=== PATIENT | female | born 1990 | race Caucasian/White ===

== ENCOUNTER 2023-03-08 09:15 | Outpatient (OUT) | payer OTHER, SELFPAY ==
--- NOTE | 2023-03-08 10:51 | US_ITS ---
[address] [address] Patient Name: QIAN CLEMENTS MRN: [id number] date: 1990 Sex: F Assigned Patient Location: LAB Current Patient Location: LAB Accession/Order Number: [id number] Exam Date: 03/08/2023 11:00 Report Date: 03/08/2023 18:54 At the request of: BLAS FORDE Procedure: US renal bladder EXAMINATION: US renal bladder HISTORY: Flank pain in Patient O26.899 COMPARISON: No relevant comparison available. TECHNIQUE: Ultrasound examination was performed of the bladder. FINDINGS: Right Kidney: Normal in size, contour and cortical echotexture. No solid cortical mass, hydronephrosis or obstructing nephrolithiasis. The cortex measures 1.1 cm Height: 4.6 cm Length: 10.6 cm Width: 5.7 cm Left Kidney: Normal in size, contour and cortical echotexture. No solid cortical mass, hydronephrosis or obstructing nephrolithiasis. The cortex measures 1.6 cm Height: 6.0 cm Length: 10.8 cm Width: 5.3 cm Urinary bladder: Prevoid 484 mL. Post void 16.1 mL Ureteral jets: Visualized bilaterally US/US renal bladder IMPRESSION: No acute abnormality Electronically authenticated by: AARON DELACRUZ Date: 03/08/2023 18:54
[2023-03-08 10:55] LABS: Basophils Percent Auto 0.3 % (0.2-2.0); Eosinophils Percent Auto 0.3 % (0.9-7.0); Hemoglobin 10.7 g/dL (12.0-16.0); Immature Granulocytes Abs Auto 0.04 10^3/uL (0.00-0.03); Immature Granulocytes Pct Auto 0.4 % (0.0-0.5); Lymphocytes Absolute Auto 2.1 10^3/uL (1.2-3.8); Mean Corpuscular HGB Conc 32.4 g/dL (29.9-35.2); Mean Corpuscular Hemoglobin 26.8 pg (26.7-34.0); Mean Corpuscular Volume 82.7 fL (81.0-99.0); Mean Platelet Volume 8.9 fL (9.5-13.5); Monocytes Absolute Auto 0.9 10^3/uL (0.3-0.8); Monocytes Percent Auto 9.1 % (1.7-12.0); Neutrophils Absolute Auto 6.9 10^3/uL (1.4-6.5); Neutrophils Percent Auto 68.9 % (43.0-75.0); Platelet Count 386 10^3/uL (150-450); Red Blood Count 3.99 10^6/uL (4.20-5.40); Red Cell Distribution Width 13.5 % (11.0-15.0); White Blood Count 10.1 10^3/uL (4.0-11.0)
[2023-03-08 11:47] LABS: Estimated GFR (African America >60 (>=60); Estimated GFR (Non-African Ame >60 (>=60)
== END 2023-03-08 09:16 | disposition home or self-care (01) ==
LOC: LAB 09:22
PROVIDERS: PCP Family Medicine; Visit Provider Obstetrics & Gynecology
DX: O26.899 Other specified pregnancy related conditions, unspecified trimester (principal); R10.9 Unspecified abdominal pain
CPT/HCPCS: 36415; 76770; 82565; 84520; 85025

== ENCOUNTER 2023-03-18 09:10 | Outpatient (OUT) | payer OTHER, SELFPAY ==
--- NOTE | 2023-03-18 09:11 | US_ITS ---
[address] [address] Patient Name: QIAN CLEMENTS MRN: [id number] date: 1990 Sex: F Assigned Patient Location: US Current Patient Location: Accession/Order Number: [id number] Exam Date: 03/18/2023 09:10 Report Date: 03/18/2023 15:10 At the request of: BLAS FORDE Procedure: US OB transvaginal EXAMINATION: US OB transvaginal HISTORY: MISSED PERIOD COMPARISON: No relevant comparison available. FINDINGS: GESTATIONAL SAC: Present and normal appearing. YOLK SAC: Present and normal appearing. POLE: Present and normal appearing. CARDIAC: Present. UTERUS: Normal size and appearance. OVARIES: Right: Normal. Left: Normal. CERVIX: 4.8 cm in length and closed. CUL-DE-SAC: Normal. OTHER: None. AGE BY LMP: 9 weeks 1 day JULY BY LMP: 10/20/2023 AGE BY US CRL: 8 weeks 5 days JULY BY US CRL: 10/23/2023 US/US OB transvaginal IMPRESSION: 1. Single live intrauterine . Electronically authenticated by: PILAR DOBSON Date: 03/18/2023 15:10
== END 2023-03-18 09:11 | disposition home or self-care (01) ==
LOC: US 09:10
PROVIDERS: PCP Family Medicine; Visit Provider Obstetrics & Gynecology
DX: Z34.91 Encounter for supervision of normal pregnancy, unspecified, first trimester (principal); Z3A.08 8 weeks gestation of pregnancy; N92.6 Irregular menstruation, unspecified
CPT/HCPCS: 76817

== ENCOUNTER 2023-04-19 10:11 | Outpatient (OUT) | payer OTHER, SELFPAY ==
[2023-04-19 10:57] LABS: Basophils Percent Auto 0.2 % (0.2-2.0); Eosinophils Percent Auto 0.2 % (0.9-7.0); Hematocrit 35.5 % (36.0-48.0); Hemoglobin 11.5 g/dL (12.0-16.0); Immature Granulocytes Abs Auto 0.02 10^3/uL (0.00-0.03); Immature Granulocytes Pct Auto 0.2 % (0.0-0.5); Lymphocytes Absolute Auto 1.6 10^3/uL (1.2-3.8); Lymphocytes Percent Auto 19.6 % (20.5-60.0); Mean Corpuscular HGB Conc 32.4 g/dL (29.9-35.2); Mean Corpuscular Hemoglobin 26.9 pg (26.7-34.0); Mean Corpuscular Volume 83.1 fL (81.0-99.0); Mean Platelet Volume 9.2 fL (9.5-13.5); Monocytes Absolute Auto 0.4 10^3/uL (0.3-0.8); Monocytes Percent Auto 4.8 % (1.7-12.0); Neutrophils Absolute Auto 6.2 10^3/uL (1.4-6.5); Platelet Count 400 10^3/uL (150-450); Red Blood Count 4.27 10^6/uL (4.20-5.40); Red Cell Distribution Width 14.6 % (11.0-15.0); White Blood Count 8.3 10^3/uL (4.0-11.0)
[2023-04-19 11:01] LABS: BOX Test Sent Out Y
[2023-04-19 11:16] LABS: Estimated Average Glucose 103 mg/dL; Glycohemoglobin A1C 5.2 % (4.5-6.2)
[2023-04-19 11:38] LABS: Thyroid Stimulating Hormone 1.129 uIU/mL (0.358-3.740)
[2023-04-20 05:07] LABS: HCV Ab Non Reactive (Non Reactive); HIV Ab/p24 Ag Screen Non Reactive (Non Reactive); Rubella Antibodies, IgG 4.83 index (Immune >0.99)
[2023-04-20 06:08] LABS: HBsAg Screen Negative (Negative)
[2023-04-20 11:12] LABS: Rapid Plasma Reagin, Quant Non Reactive (NonRea<1:1)
== END 2023-04-19 10:12 | disposition home or self-care (01) ==
PROVIDERS: PCP Family Medicine; Visit Provider Obstetrics & Gynecology
DX: Z34.80 Encounter for supervision of other normal pregnancy, unspecified trimester (principal); N92.6 Irregular menstruation, unspecified
CPT/HCPCS: 36415; 83036; 84443; 85025; 86592; 86706; 86762; 86803; 86850; 86900; 86901; 87086; 87150; 87186; 87389

== ENCOUNTER 2023-07-17 12:00 | Observation (INO) | payer OTHER, SELFPAY ==
--- NOTE | 2023-07-17 12:11 | ECG_ITS ---
[facility] Test Date: 2023-07-17 Pat Name: QIAN CLEMENTS Department: Room: [facility] Gender: Female Program Aide: : 1990 Requested By: BLAS FORDE Order Number: [id number] Reading MD: DONTA BOSTON Measurements Intervals New Point Rate: 101 P: 50 WY: 138 QRS: 37 QRSD: 82 T: 63 QT: 344 QTc: 402 Interpretive Statements 1120 Sinus tachycardia 2420 RSR (QR) in lead V1/V2, consistent with right ventricular conduction delay 9140 abnormal rhythm ECG No previous ECG available for comparison Electronically Signed On 07-18-2023 7:40:42 EST by DONTA BOSTON
[2023-07-17 12:30] VITALS: BP 137/87; PULSE 108
--- NOTE | 2023-07-17 12:58 | CT_ITS ---
[address] [address] Patient Name: QIAN CLEMENTS MRN: [id number] date: 1990 Sex: F Assigned Patient Location: [facility] Current Patient Location: [facility] Accession/Order Number: [id number] Exam Date: 07/17/2023 13:35 Report Date: 07/17/2023 14:54 At the request of: BLAS FORDE Procedure: CT angio chest EXAMINATION: CT angio chest INDICATION: Chest pain. 26 weeks . COMPARISON: CT chest 05/24/2022. TECHNIQUE: Following the administration of intravenous contrast, helical imaging of the chest was performed using PE protocol. Multiplanar reformatted images and MIP sequences were reconstructed. Dose reduction techniques were achieved by using: automated exposure control and/or adjustment of mA and /or kV according to patient size and/or use of iterative reconstruction technique. FINDINGS: TUBES & LINES: None. LOWER NECK: No significant abnormality. CHEST: Great vessels: Adequate opacification of the pulmonary arteries. No abnormal intraluminal filling defects within the pulmonary arteries. Normal caliber central pulmonary arteries. No right heart strain. Nonaneurysmal thoracic aorta. No aortic dissection. Heart & Pericardium: The heart is normal in size. Small hiatal hernia. No pericardial effusion. Lymph nodes & Mediastinum: No thoracic adenopathy. Normal esophagus. Airways, Lungs & Pleura: Patent central airways. Clear lungs. No acute infiltrative process or suspicious pulmonary nodules. No pleural effusion or pneumothorax. UPPER ABDOMEN: No significant abnormality. MUSCULOSKELETAL: Soft tissues: Unremarkable soft tissues. Bones: No acute osseous abnormality or suspicious osseous lesion. CT/CT angio chest IMPRESSION: No pulmonary embolism or other acute process identified in the chest. Electronically authenticated by: ALETHA JESSICA Date: 07/17/2023 14:54
--- NOTE | 2023-07-17 12:58 | US_ITS ---
[address] [address] Patient Name: QIAN CLEMENTS MRN: [id number] date: 1990 Sex: F Assigned Patient Location: [facility] Current Patient Location: [facility] Accession/Order Number: [id number] Exam Date: 07/17/2023 14:22 Report Date: 07/17/2023 15:34 At the request of: BLAS FORDE Procedure: US OB cervical length PROCEDURE: US OB cervical length, 07/17/2023 2:22 PM EST CLINICAL INDICATIONS: Contractions this a.m., encounter for third trimester . 5 para 4 Expected gestational age: 26 weeks 3 days Expected JULY: 11/18/2023 COMPARISON: 03/18/2023 TECHNIQUE: Limited third trimester obstetric sonogram, cervix evaluation. FINDINGS: Single living intrauterine identified, breech presentation. body, cardiac activity is seen. A heart rate 141 bpm. Transvaginal cervical length 4.7 cm, closed biometry: Not performed. anatomic assessment: Not performed. Placenta: Not evaluated Amniotic fluid volume: Not evaluated US/US OB cervical length IMPRESSION: 1. Single living intrauterine , breech presentation 2. 4.7 cm transvaginal cervical length, closed Electronically authenticated by: ESTEVAN SOLANO Date: 07/17/2023 15:34
[2023-07-17 13:18] LABS: Bilirubin Urine NEGATIVE (NEGATIVE); Blood Urine NEGATIVE (NEGATIVE); Clarity Urine CLEAR (CLEAR); Color Urine YELLOW (YELLOW); Glucose Urine UA NEGATIVE (NEGATIVE); Ketones Urine NEGATIVE (NEGATIVE); Leukocyte Esterase Urine NEGATIVE (NEGATIVE); Nitrite Urine NEGATIVE (NEGATIVE); Protein Urine TRACE mg/dL (NEG/TRACE); Specific Gravity Urine 1.025 (1.005-1.025); Urobilinogen Urine 0.2 EU/dL (0.2-1.0); pH Urine 6.5 (5.0-9.0)
[2023-07-17 13:19] LABS: Urine Microscopic Indicated NO
[2023-07-17 13:27] LABS: Cannabinoid Screen Urine POSITIVE (NEGATIVE); Cocaine Screen Urine NEGATIVE (NEGATIVE); Methamphetamines Screen Urine POSITIVE (NEGATIVE); Opiate Screen Urine NEGATIVE (NEGATIVE); Phencyclidine Screen Urine NEGATIVE (NEGATIVE)
[2023-07-17 13:28] LABS: Amphetamine Screen Urine POSITIVE (NEGATIVE); Barbiturates Screen Urine NEGATIVE (NEGATIVE); Benzodiazepines Screen Urine NEGATIVE (NEGATIVE); Buprenorphine Screen Urine NEGATIVE (NEGATIVE); Methadone Screen Urine NEGATIVE (NEGATIVE); Oxycodone Screen Urine NEGATIVE (NEGATIVE); Tricyclic Antidepressant Urine NEGATIVE (NEGATIVE)
[2023-07-17] MEDS: 0.9 % SODIUM CHLORIDE 1,000 ML 999 ML IV (13:30)
[2023-07-17 14:50] VITALS: TEMP 36.3
--- NOTE | 2023-07-17 15:24 | PC.NURSE ---
1345: to Xray via wheelchair- IV to saline lock.1400: Returns from xray. 1415: US in for cervical length. 1430 Results 4.7cm. EFM resumed and patient c/o being chilled .Temp97.3 -blanket given and denies family members with sickness. 1455:TC to Dr. Ricks- reported US results and patient report of continued headache, and chilling Orders recieved and patient informed
[2023-07-17] MEDS: 0.9 % SODIUM CHLORIDE 1,000 ML 125 ML IV (15:33)
[2023-07-17] MEDS: ACETAMINOPHEN 500 MG TABLET 1000 MG PO (15:34)
[2023-07-17 17:37] LABS: Basophils Percent Auto 0.3 % (0.2-2.0); Eosinophils Percent Auto 0.3 % (0.9-7.0); Hematocrit 33.7 % (36.0-48.0); Hemoglobin 10.9 g/dL (12.0-16.0); Immature Granulocytes Abs Auto 0.05 10^3/uL (0.00-0.03); Immature Granulocytes Pct Auto 0.4 % (0.0-0.5); Lymphocytes Absolute Auto 2.5 10^3/uL (1.2-3.8); Lymphocytes Percent Auto 21.4 % (20.5-60.0); Mean Corpuscular HGB Conc 32.3 g/dL (29.9-35.2); Mean Corpuscular Hemoglobin 27.7 pg (26.7-34.0); Mean Corpuscular Volume 85.8 fL (81.0-99.0); Mean Platelet Volume 9.1 fL (9.5-13.5); Monocytes Absolute Auto 0.6 10^3/uL (0.3-0.8); Monocytes Percent Auto 5.3 % (1.7-12.0); Neutrophils Absolute Auto 8.6 10^3/uL (1.4-6.5); Neutrophils Percent Auto 72.3 % (43.0-75.0); Platelet Count 368 10^3/uL (150-450); Red Blood Count 3.93 10^6/uL (4.20-5.40); Red Cell Distribution Width 13.2 % (11.0-15.0); White Blood Count 11.8 10^3/uL (4.0-11.0)
[2023-07-17] MEDS: ONDANSETRON PF 4 MG/2 ML VIAL IV (17:41)
--- NOTE | 2023-07-17 17:48 | PC.NURSE ---
1534: medicated with 2 tabs 500 mg each tylenol for headache. continues to have ctxs and palpate mild-mod. Discussed with patient urine toxicology results and patient admitted to THC use 2 days ago and denies other drug use. States takes adderall and last took yesterday. Denies meth use. Inquires about plan of care and informed would like to get headache under control and ctxs are spacing out. States can still feel ctxs- informed cervix is not changing with htem. Denies chest pain. DTR's 1+ lpatellar bilaterally and no swelling noted in extremities. Denies spotty vision currently.
[2023-07-17 18:16] VITALS: BP 145/85; PULSE 90
--- NOTE | 2023-07-17 19:35 | PC.NURSE ---
1919: REPORT TO ESA WINKLER.
--- NOTE | 2023-07-17 20:19 | ED.GENADUL1 ---
HPI - General Adult General Stated complaint: CHEST PAIN Source: patient Mode of arrival: walk-in Limitations: no limitations Related Data Allergies Allergy/AdvReac Type Severity Reaction Status Date / Time codeine Allergy Severe vomiting Verified 07/17/23 17:38 promethazine [From Phenergan] Allergy Severe vomiting Verified 07/17/23 17:38 ciprofloxacin [From Cipro] Allergy Intermediate vomiting Verified 07/17/23 17:38 Exam Constitutional Vital Signs, click to edit/add: Last Vital Signs Temp 97.3 F L 07/17/23 14:50 Pulse 90 07/17/23 18:16 BP 145/85 H 07/17/23 18:16 Course Vital Signs Vital signs: Vital Signs Pulse Rate 108 H 07/17/23 12:30 Blood Pressure 137/87 07/17/23 12:30 Temperature 97.3 F L 07/17/23 14:50 Pulse Rate 90 07/17/23 18:16 Blood Pressure 145/85 H 07/17/23 18:16 Medical Decision Making Medical Records Medical records narrative: Pt EKG was done in triage. Pt is not an ER pt. Pt is going to OB per protocol to further evaluate her symptoms. Pt was not seen or evaluated by me, EKG ws done per protocols. ECG Data Attestation: I personally reviewed and interpreted this ECG as follows: (EKG interpretation. NSR @ 101, ND, no acute STEMI, QTc 402) Discharge Plan Discharge Clinical Impression: Patient Disposition: Admitted as Observation Discharge Date/Time: 07/17/23 12:53
[2023-07-17] MEDS: HYDROCODONE/ACET 5-325 MG TABLET 2 TAB PO (21:05)
--- NOTE | 2023-07-17 23:25 | W.PC.ACHO ---
Registration Status: ADM DELILAH Primary Language: Preferred Language: Report received from Erin KELLOGG RN at 1910. Active Medications Generic Name Dose Route Start Last Admin Trade Name Freq PRN Reason Stop Dose Admin Acetaminophen 1,000 mg 07/17/23 15:21 07/17/23 15:34 Acetaminophen 500 Mg Tablet PO 1,000 mg Q4H PRN Administration Pain Sodium Chloride 1,000 mls @ 125 mls/hr 07/17/23 15:30 07/17/23 15:33 Sodium Chloride 0.9% 1,000 Ml IV 125 mls/hr .Q8H RADHA Administration IV Insertion/Site Date of IV Line Insertion [20g 07/17/23 right Antecubital] IV Insertion Time [20g right 13:20 Antecubital]
[2023-07-17 23:41] VITALS: RESP 16; TEMP 36.6
[2023-07-18 07:29] VITALS: BP 128/87; PULSE 86
--- NOTE | 2023-07-18 07:44 | W.PC.ACHO ---
Registration Status: ADM DELILAH Primary Language: Preferred Language: Report given to Mathew Rodriguez RN. Active Medications Generic Name Dose Route Start Last Admin Trade Name Freq PRN Reason Stop Dose Admin Acetaminophen 1,000 mg 07/17/23 15:21 07/17/23 15:34 Acetaminophen 500 Mg Tablet PO 1,000 mg Q4H PRN Administration Pain Sodium Chloride 1,000 mls @ 125 mls/hr 07/17/23 15:30 07/17/23 15:33 Sodium Chloride 0.9% 1,000 Ml IV 125 mls/hr .Q8H RADHA Administration Diet Category Date Time Status Regular Consistency Diet Diet 07/18/23 07:32 Active IV Insertion/Site Date of IV Line Insertion [20g 07/17/23 right Antecubital] IV Insertion Time [20g right 13:20 Antecubital]
[2023-07-22 15:09] LABS: Amphetamine Positive (.); Amphetamine Conf, MS, UR 942 ng/mL (Cutoff=500); Amphetamines Positive (.); Cannabinoid Positive (.); Carboxy THC Conf, MS, UR 47 ng/mL (Cutoff=10); Methamphetamine Positive (.); Methamphetamine Conf, MS, UR 2929 ng/mL (Cutoff=500)
== END 2023-07-18 09:00 | disposition home or self-care (01) ==
LOC: ER 12:08 → FBC 12:18
PROVIDERS: Admitting Provider Obstetrics & Gynecology; Emergency Provider Emergency Medicine; PCP Family Medicine; Visit Provider Obstetrics & Gynecology
DX: O26.892 Other specified pregnancy related conditions, second trimester (principal); R07.9 Chest pain, unspecified; R51.9 Headache, unspecified; H53.8 Other visual disturbances; O47.03 False labor before 37 completed weeks of gestation, third trimester; Z3A.26 26 weeks gestation of pregnancy
CPT/HCPCS: 36415; 71275; 76817; 80307; 80326; 80349; 81003; 85025; 93005; 96374; 99285; G0378; Q9967

== ENCOUNTER 2023-08-23 08:40 | Outpatient (OUT) | payer OTHER, SELFPAY ==
--- NOTE | 2023-08-23 08:42 | US_ITS ---
[address] [address] Patient Name: QIAN CLEMENTS MRN: [id number] date: 1990 Sex: F Assigned Patient Location: US Current Patient Location: US Accession/Order Number: [id number] Exam Date: 08/23/2023 08:43 Report Date: 08/23/2023 09:46 At the request of: KENIA PIEDRA Procedure: US OB anatomy EXAMINATION: US OB anatomy, US OB cervical length HISTORY: ANATOMY COMPARISON: No relevant comparison available. TECHNIQUE: Transabdominal sonographic examination was performed for obstetrical and evaluation. FINDINGS: Number: 1 Heart Rate: 146.0 bpm H.B. /min Amniotic Fluid Volume: Subjectively normal position: Cephalic presentation, longitudinal lie Placental Location: ANTERIOR, placental edge to cervical os could not be visualized Cervix Length: 3.7 cm , closed Normal anatomy: Nose, lips, diaphragm, stomach, kidneys, bladder, umbilical arteries, three-vessel cord, spine, extremities Suboptimal visualization: Lateral ventricles, cerebellum, posterior fossa secondary distal calcification. Orbits, four-chamber heart Nonvisualization: RVOT, LVOT, abdominal cord insertion BIOMETRY: BPD: 7.9 cm 31 weeks 6 days , 45% HC: 30.0 cm 33 weeks 2 days, 56% AC: 30.3 cm 34 weeks 2 days, greater than 97% FL: 5.7 cm 29 weeks 6 days , 4% EFW:2029.2 grams; 4 lbs. 8 oz., 71% FL/AC: 18.8 FL/BPD: 71.8 HC/AC: 1.0 GESTATIONAL AGE: Age by EDC: 31 weeks 5 days JULY by EDC: 10/20/2023 Age by current US: 32 weeks 2 days JULY by current US: 10/16/2023 US/US OB anatomy IMPRESSION: Limited exam due to advanced gestational age and maternal body habitus Abdominal circumference greater than the 97th percentile *Reference: [employer] Practice Guideline for the performance of Obstetric Ultrasound Examinations, May 22, 2007. Electronically authenticated by: AARON DELACRUZ Date: 08/23/2023 09:46
--- NOTE | 2023-08-23 08:42 | US_ITS ---
[address] [address] Patient Name: QIAN CLEMENTS MRN: [id number] date: 1990 Sex: F Assigned Patient Location: US Current Patient Location: Accession/Order Number: [id number] Exam Date: 08/23/2023 08:43 Report Date: 08/23/2023 09:46 At the request of: KENIA PIEDRA Procedure: US OB cervical length EXAMINATION: US OB anatomy, US OB cervical length HISTORY: ANATOMY COMPARISON: No relevant comparison available. TECHNIQUE: Transabdominal sonographic examination was performed for obstetrical and evaluation. FINDINGS: Number: 1 Heart Rate: 146.0 bpm H.B. /min Amniotic Fluid Volume: Subjectively normal position: Cephalic presentation, longitudinal lie Placental Location: ANTERIOR, placental edge to cervical os could not be visualized Cervix Length: 3.7 cm , closed Normal anatomy: Nose, lips, diaphragm, stomach, kidneys, bladder, umbilical arteries, three-vessel cord, spine, extremities Suboptimal visualization: Lateral ventricles, cerebellum, posterior fossa secondary distal calcification. Orbits, four-chamber heart Nonvisualization: RVOT, LVOT, abdominal cord insertion BIOMETRY: BPD: 7.9 cm 31 weeks 6 days , 45% HC: 30.0 cm 33 weeks 2 days, 56% AC: 30.3 cm 34 weeks 2 days, greater than 97% FL: 5.7 cm 29 weeks 6 days , 4% EFW:2029.2 grams; 4 lbs. 8 oz., 71% FL/AC: 18.8 FL/BPD: 71.8 HC/AC: 1.0 GESTATIONAL AGE: Age by EDC: 31 weeks 5 days JULY by EDC: 10/20/2023 Age by current US: 32 weeks 2 days JULY by current US: 10/16/2023 US/US OB cervical length IMPRESSION: Limited exam due to advanced gestational age and maternal body habitus Abdominal circumference greater than the 97th percentile *Reference: [employer] Practice Guideline for the performance of Obstetric Ultrasound Examinations, May 22, 2007. Electronically authenticated by: AARON DELACRUZ Date: 08/23/2023 09:46
--- OUTSIDE RECORDS SUMMARY | 2023-08-23 08:47 | XMS_ITS | CCD ---
Author Name Unknown Address [address] [place] [address] Organization [facility] Care Team Providers Care Hogshead Opener Name Role Phone Racquel Simpson Primary Care Provider RACQUEL SIMPSON Primary Care Unavailable TAMMY CHERRY Admitting Unavailable TAMMY CHERRY Attending Unavailable Racquel Simpson MD Primary Care Provider MAURISIO ., DR ODONNELL Primary Care Unavailable MICHAELA ., DR KRAMER Consulting Unavailabl e MAURISIO ., DR ODONNELL Attending Unavailable MAURISIO ., DR ODONNELL Admitting Unavailable ORLANDO, DR AARON Owusu Consulting Unavailable MAURISIO ., DR ODONNELL Consulting Unavailable MARGOT LAU Consulting Unavailable MAURISIO ., DR ODONNELL Primary Care Unavailable MAURISIO ., DR ODONNELL Attending Unavailable MAURISIO ., DR ODONNELL Admitting Unavailable MAURISIO ., DR ODONNELL Primary Care Unavailable MAURISIO ., DR ODONNELL Consulting Unavailable MAURISIO ., DR ODONNELL Attending Unavailable MAURISIO ., DR ODONNELL Admitting Unavailable ZIEBER, DR PILAR Glass Consulting Unavailable MAURISIO ., DR ODONNELL Consulting Unavailable MAURISIO ., DR ODONNELL Attending Unavailable MAURISIO ., DR ODONNELL Admitting Unavailable MAURISIO ., DR ODONNELL Primary Care Unavailable BRONSON, DR PILAR Glass Consulting Unavailable REQUEST, DR CINDY LISTED Consulting Unavailvega Simpson MD, Racquel Garcia Primary Care Provider RACQUEL SIMPSON Primary Care Unavailable BENJIE EVANS Attending Unavailable RACQUEL SIMPSON Primary Care Unavailable RICCARDO ROSENBAUM Attending Unavailable RACQUEL SIMPSON Primary Care Unavailable MANOJ FLORES Attending Unavailable RACQUEL SIMPSON Primary Care Unavailable JERONIMO FOFANA Attending Unavailable MANOJ RAMOS Attending Unavailable MANOJ RAMOS Admitting Unavailable RACQUEL SIMPSON Referring Unavailable RACQUEL SIMPSON Primary Care Unavailable KENIA PIEDRA Attending Unavailable Allergies Allergy Classification Reported Allergen(s) Allergy Type Date of Onset Reaction(s) Facility (9 sources) Ciprofloxacin; Translations: [CIPROFLOXACIN] Drug Allergy 2 Nausea And Vomiting [place], [place] (9 sources) Codeine; Translations: [CODEINE] Drug Allergy 2 Seizure [place], [place] (8 sources) Promethazine Drug Allergy 2 Nausea And Vomiting [place], [place] (1 source) Ciprofloxacin Drug Allergy 5 [facility] (1 source) Codeine Drug Allergy 5 [facility] (1 source) Levamisole Drug Allergy 5 [facility] (1 source) Promethazine; Translations: [PROMETHAZINE] Drug Allergy 4 [facility] Medications Current Medications Medication Drug Class(es) Dates Sig (Normalized) Sig (Original) [id number] 200 actuat albuterol 0.09 mg/actuat metered dose inhaler (3 sources) beta2-Adrenergic Agonist Start: 06-03-2021 End: 11-14-2022 take 2 puff(s) by mouth every six hours as needed albuterol sulfate HFA 108 (90 Base) MCG/ACT inhaler INHALE 2 PUFFS BY MOUTH EVERY 6 HOURS NEEDED 0 06/03/2021 11/14/2022 Discontinued (LIST CLEANUP) amoxicillin 50 mg/ml oral suspension (1 source) Penicillin-class Antibacterial Start: 11-14-2022 End: 11-24-2022 take 10 mL by mouth three times daily amoxicillin (AMOXIL) 250 MG/5ML suspension Take 10 mLs by mouth 3 times daily for 10 days 300 mL 0 11/14/2022 11/24/2022 Active amphetamine aspartate 7.5 mg / amphetamine sulfate 7.5 mg / dextroamphetamine saccharate 7.5 mg / dextroamphetamine sulfate 7.5 mg oral tablet (11 sources) Central Nervous System Stimulant Start: 06-22-2020 End: 11-14-2022 take 1 tablet by mouth once daily in the morning amphetamine-dextr oamphetamine (ADDERALL) 30 MG tablet TAKE 1 TABLET BY MOUTH EVERY MORNING FOR 30 DAYS 0 06/22/2020 11/14/2022 Discontinued (LIST CLEANUP) Start: 06-22-2020 End: 11-14-2022 amphetamine-dextroamphetamin e (ADDERALL) 20 MG tablet TAKE 1 TABLET BY MOUTH AT NOON FOR 30 DAYS 0 06/22/2020 11/14/2022 Discontinued (LIST CLEANUP) End: 05-06-2019 take 1 tablet by mouth twice daily amphetamine-dextroamphetamine (ADDERALL) 20 MG tablet Take 20 mg by mouth 2 times daily. 0 05/06/2019 Discontinued (Therapy completed) aspirin 81 mg delayed release oral tablet (2 sources) Platelet Aggregation Inhibitor, Nonsteroidal Anti-inflammatory Drug End: 11-14-2022 take 1 tablet by mouth once daily aspirin 81 MG EC tablet Take 81 mg by mouth daily 0 11/14/2022 Discontinued (LIST CLEANUP) benzocaine 15 mg / menthol 3.6 mg oral lozenge (1 source) Standardized Chemical Allergen Start: 05-27-2022 benzocaine-menthol (CEPACOL SORE THROAT) lozenge 1 lozenge 1 ml diphenhydrAMINE hydrochloride 50 mg/ml cartridge (3 sources) Histamine-1 Receptor Antagonist Start: 05-26-2022 diphenhydrAMINE (BENADRYL) injection 50 mg Start: 05-25-2022 diphenhydrAMIN E (BENADRYL) tablet 25 mg Start: 05-25-2022 End: 05-26-2022 25 mg, IntraVENous, EVERY 6 HOURS PRN, Starting on Tue05/25/22 at 1614, Until Tue05/26/22 at 0408, Itching, Sleep, Anxiety, Hives, docusate sodium 50 mg / sennosides, nursing home 8.6 mg oral tablet (2 sources) Start: 05-25-2022 End: 11-14-2022 take 1 tablet by mouth once daily sennosides-docusate sodium (SENOKOT-S) 8.6-50 MG tablet Take 1 tablet by mouth daily 30 tablet 1 05/25/2022 11/14/2022 Discontinued (LIST CLEANUP) doxylamine succinate 25 mg oral tablet (1 source) Start: 05-26-2022 doxyLAMINE suc cinate (GNP SLEEP AID) tablet 25 mg ferrous sulfate 325 mg oral tablet (3 sources) Start: 05-26-2022 End: 11-14-2022 take 1 tablet by mouth twice daily ferrous sulfate (IRON 325) 325 (65 Fe) MG tablet Take 1 tablet by mouth 2 times daily 60 tablet 5 05/26/2022 11/14/2022 Discontinued (LIST CLEANUP) Start: 05-26-2022 ferrous sulfat e (FE TABS 325) EC tablet 325 mg ibuprofen 20 mg/ml oral suspension (5 sources) Nonsteroidal Anti-inflammatory Drug Start: 11-14-2022 End: 03-07-2023 take 30 mL by mouth every six hours as needed for fever ibuprofen (ADVIL;MOTRIN) 100 MG/5ML suspension Take 30 mLs by mouth every 6 hours as needed for Fever 240 mL 3 11/14/2022 03/07/2023 Discontinued (LIST CLEANUP) Start: 05-26-2022 800 mg, Oral, EVERY 8 HOURS, First dose on Tue05/26/22 at 1600, Until Discontinued Once tolerating PO, discontinue Toradol and begin ibuprofen 8 hours after the final dose of Toradol. Alternate ibuprofen and acetaminophen every 4 hours. Start: 05-25-2022 End: 11-14-2022 take 1 tablet by mouth every six hours as needed for pain ibuprofen (ADVIL;MOTRIN) 600 MG tablet Take 1 tablet by mouth every 6 hours as needed for Pain 30 tablet 1 05/25/2022 11/14/2022 Discontinued (Therapy completed) lanolin 0.5 mg/mg topical ointment (1 source) Start: 05-25-2022 Topical, EVERY 1 HOUR PRN, Dry Skin, nipple discomfort, Starting on Tue05/25/22 at 1614 loratadine 10 mg oral tablet (3 sources) Start: 06-03-2021 End: 11-14-2022 take 1 tablet by mouth once daily loratadine (CLARITIN) 10 MG tablet TAKE 1 TABLET BY MOUTH DAILY 0 06/03/2021 11/14/2022 Discontinued (LIST CLEANUP) melatonin 5 mg oral tablet (1 source) Start: 05-25-2022 melatonin tablet 5 mg metoclopramide 10 mg oral tablet (2 sources) Dopamine-2 Receptor Antagonist End: 11-14-2022 take 1 tablet by mouth four times daily metoclopramide (REGLAN) 10 MG tablet Take 10 mg by mouth 4 times daily 0 11/14/2022 Discontinued (LIST CLEANUP) NIFEdipine 30 mg osmotic 24 hr extended release oral tablet (4 sources) Dihydropyridine Calcium Channel Tru Start: 05-28-2022 End: 03-07-2023 take 1 tablet by mouth once daily NIFEdipine (PROCARDIA XL) 30 MG extended release tablet Take 1 tablet by mouth daily 30 tablet 3 05/29/2022 03/07/2023 Discontinued (LIST CLEANUP) ondansetron 4 mg disintegrating oral tablet (10 sources) Serotonin-3 Receptor Antagonist Start: 05-25-2022 4 mg, IntraVENous, EVERY 6 HOURS PRN, Starting on Tue05/25/22 at 1614, Until Discontinued, Nausea Start: 05-06-2019 End: 06-13-2022 take 1 tablet by mouth every eight hours as needed for nausea ondansetron (ZOFRAN ODT) 4 MG disintegrating tablet Take 1 tablet by mouth every 8 hours as needed for Nausea or Vomiting 20 tablet 0 05/25/2022 05/29/2022 Discontinued (Stop Taking at Discharge) Start: 05-06-2019 End: 05-06-2019 ondansetron (ZOFRAN) injecti on 4 mg oxyCODONE (2 sources) Opioid Agonist Start: 05-26-2022 oxyCODONE (ANNIA ICODONE) immediate release tablet 5 mg Start: 05-25-2022 End: 05-30-2022 oxyCODONE (ROXICODONE) 5 MG immediate release tablet Indications: delivery delivered Take 1 tablet by mouth every 6 hours as needed for Pain for up to 5 days. Intended supply: 5 days. Take lowest dose possible to manage pain 20 tablet 0 05/25/2022 05/30/2022 Active oxytocin (PITOCIN) 10 unit bolus from the bag (1 source) Start: 05-25-2022 166.7 mL (roun ded from 166.6667 mL = 10 Units), IntraVENous, PRN, 1 dose, Starting on Tue05/25/22 at 1437, Until Discontinued, Bleeding Post- use ONLY after delivery of baby/ excessive bleeding/ uterine atony. Bolus for bag to infuse at 909 ml/hour for 11 minutes (10 units in 167ml). MV-Min-Fe Fum-FA-DHA ( 1 PO) (4 sources) End: 11-14-2022 MV-Min-Fe Fum-FA-DH A ( 1 PO) Take 1 tablet by mouth daily 0 11/14/2022 Discontinued (LIST CLEANUP) take 1 tablet by ok once daily, then take 1 tablet by mouth MV-Min-Fe Fum-FA-DHA ( 1 PO) Take 1 tablet by mouth daily 0 Active 72 hr scopolamine 0.0139 mg/hr transdermal system (1 source) Anticholinergic Start: 05-25-2022 1 patch, Trans DERmal, Administer over 72 Hours, EVERY 72 HOURS, First dose on Tue05/25/22 at 1700 delivers 1 mg over 3 days. Apply patch to hairless area behind the ear. Completed/Discontinued Medications Medication Drug Class(es) Dates Sig (Normalized) Sig (Original) acetaminophen 500 mg oral tablet (1 source) Start: 05-25-2022 1,000 mg, Oral, EVERY 6 HOURS, First dose on Tue05/25/22 at 1630, Until Discontinued Maximum dose of acetaminophen is 4000mg from all sources in 24 hours. Alternate ibuprofen and acetaminophen every 4 hours. acetaminophen 325 mg / oxyCODONE hydrochloride 5 mg oral tablet (1 source) Opioid Agonist Start: 05-06-2019 End: 05-06-2019 oxyCODONE-acetamino phen (PERCOCET) 5-325 MG per tablet 1 tablet bisacodyl 10 mg rectal suppository (1 source) Stimulant Laxative Start: 05-25-2022 take 10 mg rectal route once daily as needed 10 mg, Rectal, DAILY PRN, Starting on Tue05/25/22 at 1614, Until Discontinued, Constipation 5 ml bupivacaine hydrochloride 2.5 mg/ml injection (1 source) Amide Local Anesthetic Start: 05-25-2022 End: 05-25-2022 bupivacaine (PF) (MARCAINE) 0.25 % injection calcium chloride 0.0014 meq/ml / potassium chloride 0.004 meq/ml / sodium chloride 0.103 meq/ml / sodium lactate 0.028 meq/ml injectable solution (2 sources) Start: 05-25-2022 End: 05-29-2022 IntraVENous, at 75 mL/hr, CONTINUOUS, Starting on Tue05/25/22 at 1630 Start: 05-25-2022 End: 05-25-2022 1,000 mL, IntraVENous, at 1, 000 mL/hr, Administer over 1 Hours, ONCE, On Tue05/25/22 at 1500, For 1 dose Labor and Delivery. Administer bolus one hour prior to surgery. Labor and Delivery (Signed and Held) citalopram 40 mg oral tablet (1 source) Serotonin Reuptake Inhibitor Start: 06-07-2018 End: 05-06-2019 take 1 tablet by mouth once daily citalopram (CELEXA) 40 MG tablet Take 1 tablet by mouth daily 0 06/07/2018 05/06/2019 Discontinued (Therapy completed) docusate sodium 100 mg oral capsule (1 source) Start: 05-25-2022 take 100 mg by mouth twice daily 100 mg, Oral, 2 TIMES DAILY, First dose on Tue05/25/22 at 2100, Until Discontinued Do not crush or break. 0.4 ml enoxaparin sodium 100 mg/ml prefilled syringe (1 source) Low Molecular Weight Heparin Start: 05-26-2022 inject 40 mg by subcutaneous injection once daily 40 mg, SubCUTAneous, DAILY, First dose on Tue05/26/22 at 0900, Until Discontinued Indication of Use: Prophylaxis-DVT/PE famotidine 20 mg oral tablet (1 source) Histamine-2 Receptor Antagonist Start: 05-25-2022 take 20 mg by mouth twice daily as needed 20 mg, Oral, 2 TIMES DAILY PRN, Starting on Tue05/25/22 at 1614, Until Discontinued, GERD Renal dose per pharmacy for peptic ulcer prophylaxis. famotidine (PEPCID) 20 mg in sodium chloride (PF) 10 mL injection (1 source) Start: 05-25-2022 End: 05-25-2022 20 mg, IntraVENous, ONCE, 1 dose, On Tue05/25/22 at 1500 Give 60 minutes before surgery. Labor and Delivery (Signed and Held) 1 ml HYDROmorphone hydrochloride 1 mg/ml cartridge (3 sources) Opioid Agonist Start: 05-25-2022 End: 10-04-2022 HYDROmorphone (DILAUDID) injection 0.5 mg Start: 05-25-2022 End: 05-25-2022 HYDROmorphone (DILAUDID) inj ection 0.5 mg Start: 05-25-2022 End: 05-25-2022 HYDROmorphone (DILAUDID) 1 M G/ML injection HYDROmorphone (DILAUDID) 1 mg/mL RAILROAD ACCOUNTANT (1 source) Start: 05-25-2022 End: 05-26-2022 HYDROmorphone (DILAUDID) 1 mg/mL RAILROAD ACCOUNTANT 1 ml ketorolac tromethamine 30 mg/ml cartridge (2 sources) Nonsteroidal Anti-inflammatory Drug, Cyclooxygenase Inhibitor Start: 05-25-2022 End: 05-25-2022 ketorolac (TORADOL) 30 MG/ML injection Start: 05-25-2022 End: 05-26-2022 take 1 dose intravenously once daily Ketorolac is contraindicated in patients with advanced renal impairment and in patients at risk of renal failure due to volume depletion. For 65 years of age and older OR weight less than 50 kg, use 15 mg IV every 6 hours; MAX dose: 60 mg/day. Dose greater than 30 mg must be administered via intramuscular route. Do not administer for more than 5 days. 30 mg, IntraVENous, EVERY 6 HOURS, 4 doses, First dose on Tue05/25/22 at 1630, Last dose on Tue05/26/22 at 1030 Discontinue when able to take PO ibuprofen. magnesium hydroxide 80 mg/ml oral suspension (1 source) Start: 05-25-2022 take 30 mL by mouth once daily as needed 30 mL, Oral, DAILY PRN, Starting on Tue05/25/22 at 1614, Until Discontinued, Constipation 500 ml magnesium sulfate 40 mg/ml injection (3 sources) Start: 05-25-2022 End: 05-25-2022 magnesium sulfate 4000 mg in 100 mL IVPB premix Start: 05-25-2022 End: 05-26-2022 magnesium sulfate (57217 mg/ 500mL infusion) Start: 05-25-2022 End: 05-25-2022 magnesium sulfate 4 GM/100ML infusion miSOPROStol 0.1 mg oral tablet (1 source) Prostaglandin E1 Analog Start: 05-25-2022 End: 05-25-2022 take 1 dose rectal route once 1,000 mcg, Rectal, ONCE, 1 dose, On Tue05/25/22 at 1630 Notify Physician prior to administration. Start: 05-25-2022 End: 05-25-2022 take 1 dose rectal route once 1,000 mcg, Rectal, ONCE, 1 dose, On Tue05/25/22 at 1630 Notify Physician prior to administration. 1 ml morphine sulfate 4 mg/ml injection (1 source) Opioid Agonist Start: 05-06-2019 End: 05-06-2019 morphine sulfate (PF) injection 4 mg 1 ml naloxone hydrochloride 0.4 mg/ml injection (1 source) Opioid Antagonist Start: 05-25-2022 0.4 mg, IntraVENous, PRN, Starting on Tue05/25/22 at 1614, Until Discontinued, Opioid Reversal polyethylene glycol 3350 82306 mg powder for oral solution (1 source) Osmotic Laxative Start: 05-25-2022 17 g, Oral, D AILY, First dose on Tue05/25/22 at 1630, Until Discontinued vitamin plus iron 29-1 MG tablet 1 tablet (1 source) Start: 05-25-2022 take 1 tablet by mouth once daily 1 tablet, Oral, DAILY, First dose on Tue05/25/22 at 1630, Until Discontinued Begin when normal bowel activity resumes. simethicone 80 mg chewable tablet (3 sources) Start: 05-25-2022 take 80 mg by mouth every six hours as needed 80 mg, Oral, EVERY 6 HOURS PRN, Starting on Tue05/25/22 at 1614, Until Discontinued, Cramping, Flatulence Start: 05-25-2022 End: 11-14-2022 take 1 tablet by mouth four times daily as needed simethicone (MYLICON) 80 MG chewable tablet Take 1 tablet by mouth 4 times daily as needed for Flatulence 30 tablet 1 05/25/2022 11/14/2022 Discontinued (LIST CLEANUP) 5 ml sodium chloride 9 mg/ml injection (4 sources) Start: 05-25-2022 take 1 dose intravenously twice daily 5-40 mL, IntraVENous, EVERY 12 HOURS SCHEDULED (2 times per day), First dose on Tue05/25/22 at 2100, Until Discontinued For Line Patency: Peripheral IV = 5 mL; Midline or Central Line = 10 mL/lumen. If following IV push medication, administer flush at same rate as the IV push. Flush volume is determined by type of infusion therapy being given. For non-viscous solutions use: Peripheral IV = 5 mL Midline or Central Line = 10 mL/lumen For viscous solutions (i.e. blood components, parenteral nutrition, contrast media, or after obtaining blood sample) use: Peripheral IV = 10 mL Midline or Central Line = 20 mL/lumen Start: 05-25-2022 IntraVENous, a t 5-250 mL/hr, PRN, if patient receiving piggyback infusions and maintenance fluids are not ordered OR KVO fluids to protect IV site / prevent frequent line interruptions/ long duration, Starting on Tue05/25/22 at 1614 For piggyback infusion, administer at same rate as piggyback for a total of 25 mL. Enter 25 mL into dose field and piggyback rate into rate field of order. If piggyback is infusing at a rate less than 100 mL/hr, enter 25 mL into dose field and 100 mL/hr into rate field of order. For KVO fluids, enter rate of 20 mL/hr or less into rate field of order. Start: 05-25-2022 take 5-40 mL intrave nously once as needed 5-40 mL, IntraVENous, PRN, Starting on Tue05/25/22 at 1614, Until Discontinued, Line Care, After every IV line use For Line Patency: Peripheral IV = 5 mL; Midline or Central Line = 10 mL/lumen. If following IV push medication, administer flush at same rate as the IV push. Flush volume is determined by type of infusion therapy being given. For non-viscous solutions use: Peripheral IV = 5 mL Midline or Central Line = 10 mL/lumen For viscous solutions (i.e. blood components, parenteral nutrition, contrast media, or after obtaining blood sample) use: Peripheral IV = 10 mL Midline or Central Line = 20 mL/lumen Start: 05-06-2019 End: 05-06-2019 0.9 % sodium chloride bolus 100 ml tranexamic acid 10 mg/ml injection (1 source) Antifibrinolytic Agent Start: 05-25-2022 End: 05-25-2022 1,000 mg, IntraVENous, at 400 mL/hr, Administer over 15 Minutes, ONCE, On Tue05/25/22 at 1500, For 1 dose Problems Active Problems Problem Classification Problem Date Documented Date Episodic/Chronic Abdominal pain (20 sources) Right upper quadrant pain; Translations: [Epigastric pain] Onset: 06-23-2015 06-23-2015 Episodic Attention-deficit conduct and disruptive behavior disorders (8 sources) Attention deficit hyperactivity disorder, predominantly inattentive type; Translations: [Attention-deficit hyperactivity disorder, predominantly inattentive type] Onset: 04-01-2015 04-01-2015 Chronic Diseases of white blood cells (1 source) Elevated white blood cell count, unspecified; Translations: [Elevated white blood cell count, unspecified] Onset: 03-12-2023 Chronic Fever of unknown origin (2 sources) Fever; Translations: [Fever, unspecified] Onset: 03-17-2023 Episodic Genitourinary symptoms and ill-defined conditions (1 source) Hematuria, unspecified; Translations: [Urinary tract infection with hematuria, site unspecified] Onset: 03-13-2023 Episodic Headache; including migraine (1 source) Migraine, unspecified, not intractable, without status migrainosus; Translations: [MIGRAINE UNS NOT INTRACT W/O SM] Onset: 05-28-2022 Chronic Nausea and vomiting (1 source) Nausea with vomiting, unspecified; Translations: [Nausea and vomiting, unspecified vomiting type] Onset: 03-17-2023 Episodic Other complications of ; puerperium affecting management of mother (2 sources) delivery - delivered; Translations: [Encounter for delivery without indication] Onset: 05-25-2022 Episodic Other complications of ; puerperium affecting management of mother (1 source) Encounter for delivery without indication; Translations: [Encounter for delivery without indication] Onset: 05-25-2022 Episodic Other hematologic conditions (1 source) Elevated erythrocyte sedimentation rate; Translations: [Elevated erythrocyte sedimentation rate] Onset: 03-12-2023 Episodic Other hematologic conditions (1 source) Personal history of diseases of the blood and blood-forming organs and certain disorders involving the immune mechanism; Translations: [History of autoimmune disease] Onset: 03-13-2023 Episodic Other lower respiratory disease (1 source) Cough; Translations: [Cough] Episodic Other screening for suspected conditions (not mental disorders or infectious disease) (5 sources) Encounter for other specified screening; Translations: [Elevated C-reactive protein (CRP)] Onset: 05-04-2022 Episodic Other upper respiratory disease (1 source) Congestion of nasal sinus; Translations: [Nasal congestion] Episodic Residual codes; unclassified (1 source) 8 weeks gestation of ; Translations: [8 weeks gestation of ] Onset: 03-17-2023 Episodic Residual codes; unclassified (3 sources) Taking high risk medication; Translations: [High risk medication use] Onset: 04-01-2015 04-01-2015 Rheumatoid arthritis and related disease (15 sources) 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; 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] Onset: 11-19-2015 11-19-2015 Chronic Urinary tract infections (1 source) Urinary tract infection, site not specified; Translations: [Urinary tract infection with hematuria, site unspecified] Onset: 03-13-2023 Episodic Past or Other Problems Problem Classification Problem Date Documented Date Episodic/Chronic Appendicitis and other appendiceal conditions (8 sources) Acute appendicitis; Translations: [Unspecified acute appendicitis] Onset: 08-15-2017 08-15-2017 Episodic Headache; including migraine (6 sources) Headache; Translations: [Headache] Onset: 10-14-2019 06-30-2020 Episodic Hemorrhage during ; abruptio placenta; placenta previa (1 source) Low lying placenta NOS or without hemorrhage, third trimester; Translations: [LOW LYING PL NOS W/O HEMORR 3RD TRI] Onset: 05-09-2022 Episodic Hypertension complicating ; childbirth and the puerperium (4 sources) Eclampsia; Translations: [Eclampsia, unspecified as to time period] Onset: 05-25-2022 Episodic Immunizations and screening for infectious disease (8 sources) Contact with and (suspected) exposure to other viral communicable diseases; Translations: [Contact with and (suspected) exposure to infections with a predominantly sexual mode of transmission] Onset: 07-06-2019 06-30-2020 Episodic Inflammatory diseases of female pelvic organs (6 sources) Acute vaginitis; Translations: [Acute vaginitis] Onset: 01-25-2020 06-30-2020 Episodic Nonspecific chest pain (1 source) Chest pain, unspecified; Translations: [CHEST PAIN UNSPECIFIED] Onset: 05-28-2022 Episodic Other complications of ; puerperium affecting management of mother (2 sources) Deliveries by ; Translations: [Encounter for delivery without indication] Onset: 05-25-2022 05-25-2022 Episodic Other complications of (1 source) Morning sickness; Translations: [Morning sickness] Episodic Other complications of (1 source) Complication of , childbirth and/or the puerperium Episodic Other complications of (4 sources) Other specified related conditions, third trimester; Translations: [OTH SPEC PREG RELATED COND 3RD TRI] Onset: 05-23-2022 Episodic Other complications of (1 source) Supervision of with history of pre-term labor, third trimester; Translations: [SUP PREG W/HX PRE-TERM LABR 3RD TRI] Onset: 05-28-2022 Episodic Other and delivery including normal (4 sources) state; Translations: [Encounter for routine follow-up] Onset: 05-28-2022 Episodic Other upper respiratory infections (3 sources) Acute pharyngitis; Translations: [Acute pharyngitis, unspecified] Onset: 08-09-2022 Episodic Residual codes; unclassified (6 sources) Gestation period, 26 weeks; Translations: [26 weeks gestation of ] Onset: 09-27-2019 Resolved: 05-25-2022 06-30-2020 Episodic Residual codes; unclassified (6 sources) Gestation period, 17 weeks; Translations: [17 weeks gestation of ] Onset: 07-17-2019 Resolved: 05-25-2022 06-30-2020 Episodic Residual codes; unclassified (6 sources) Gestation period, 21 weeks; Translations: [21 weeks gestation of ] Onset: 08-24-2019 Resolved: 05-25-2022 06-30-2020 Episodic Residual codes; unclassified (5 sources) Taking high risk medication; Translations: [Other skilled nursing (current) drug therapy] Onset: 04-01-2015 04-01-2015 Episodic Residual codes; unclassified (4 sources) Postoperative state; Translations: [Other specified postprocedural states] Onset: 05-28-2022 Episodic Residual codes; unclassified (1 source) 32 weeks gestation of ; Translations: [32 WEEKS GESTATION OF ] Onset: 05-28-2022 Episodic Residual codes; unclassified (1 source) 29 weeks gestation of ; Translations: [29 WEEKS GESTATION OF ] Onset: 05-09-2022 Episodic Sprains and strains (1 source) Low back strain; Translations: [Strain of lumbar region, initial encounter] Episodic Results Test Name Value Interpretation Reference Range Facility Long-Term Documentson 05-03-2023 Long-Term Documents [id number]. 00CD:127 Normal [facility] CBC panel Auto (Bld)on 03-17 Erythrocyte distribution width (RBC) [Ratio] 13.2 % Normal 11.5-15.0 [facility] Comment on above: Order Comment: Speci men Type: BLOOD SPECIMENOrdering Facility: [facility] Address: [address] [place] [address] Performed By: #### 5 8410-2 ####[facility] [id number] [place] [address] [place] Hematocrit (Bld) [Volume fraction] 35.1 % Low 36.0-46.0 [facility] Comment on above: Order Comment: Speci men Type: BLOOD SPECIMENOrdering Facility: [facility] Address: [address] [place] [address] Performed By: #### 5 8410-2 ####[facility] [id number] [place] [address] [place] Hemoglobin (Bld) [Mass/Vol] 11.3 g/dL Low 11.5-15.5 [facility] Comment on above: Order Comment: Speci men Type: BLOOD SPECIMENOrdering Facility: [facility] Address: [address] [place] [address] Performed By: #### 5 8410-2 ####[facility] [id number] [address] STATES [facility] MCH (RBC) [Entitic mass] 26.3 pg Normal 26.0-34.0 [facility] Comment on above: Order Comment: Speci men Type: BLOOD SPECIMENOrdering Facility: [facility] Address: [address] [place] [address] Performed By: #### 5 8410-2 ####[facility] [id number] [address] [place] MCHC (RBC) [Mass/Vol] 32.2 g/dL Normal 30.5-36.0 [facility] Comment on above: Order Comment: Speci men Type: BLOOD SPECIMENOrdering Facility: [facility] Address: [address] [place] [address] Performed By: #### 5 8410-2 ####[facility] [id number] [address] [place] MCV (RBC) [Entitic vol] 81.6 fL Normal 80.0-100.0 [facility] Comment on above: Order Comment: Speci men Type: BLOOD SPECIMENOrdering Facility: [facility] Address: [address] [place] [address] Performed By: #### 5 8410-2 ####[facility] [id number] [address] [place] Nucleated RBC (Bld) [#/Vol] 10*3/uL Normal <0.01 [facility] Comment on above: Order Comment: Speci men Type: BLOOD SPECIMENOrdering Facility: [facility] Address: [address] [place] [address] Performed By: #### 5 8410-2 ####[facility] [id number] [address] [place] Platelet mean volume (Bld) [Entitic vol] 8.7 fL Low 9.0-12.7 [facility] Comment on above: Order Comment: Speci men Type: BLOOD SPECIMENOrdering Facility: [facility] Address: [address] [place], [place] [id number] Performed By: #### 5 8410-2 ####[facility] [id number] [place] [address] [place] Platelets (Bld) [#/Vol] 482 10*3/uL High 150-400 [facility] Comment on above: Order Comment: Speci men Type: BLOOD SPECIMENOrdering Facility: [facility] Address: [address] [place], [place] [id number] Performed By: #### 5 8410-2 ####[facility] [id number] [place] [address] [place] RBC (Bld) [#/Vol] 4.30 10*6/uL Normal 3.90-5.20 [facility] Comment on above: Order Comment: Speci men Type: BLOOD SPECIMENOrdering Facility: [facility] Address: [address] [place], [place] [id number] Performed By: #### 5 8410-2 ####[facility] [id number] [place] [address] [place] WBC (Bld) [#/Vol] 10.57 10*3/uL Normal 3.70-11.00 [facility] Comment on above: Order Comment: Speci men Type: BLOOD SPECIMENOrdering Facility: [facility] Address: [address] [place], [place] [id number] Performed By: #### 5 8410-2 ####[facility] [id number] [place] [address] [place] CNDSon 03-17-2023 CNDS HNO ID: [id number] Author: Manoj Ramos MD Service: General Internal Medicine Author Type: Physician Type: Discharge Summary Filed: 03/17/2023 8:42 PM Note Text: DISCHARGE SUMMARY PATIENT NAME: Qian Clements ADMISSION DATE: 03/13/2023 DISCHARGE DATE: 03/17/2023 ATTENDING PHYSICIAN: Manoj Ramos MD Code Status: Not on file Highest Readmission Risk Score: 14 The 30 day readmissions risk score is derived from an internally validated risk model which evaluates patient level characteristics, utilization history, medication orders and lab results up until the day of discharge. Patients with a score of 40 or above are considered highest risk for readmission. Specific patient level drivers will be listed at the bottom of the summary. CONSULTING TEAMS DURING HOSPITALIZATION: OBGYN Treatment Team: Attending Provider: Manoj Ramos MD Primary Service: Pepe Daniels REASON FOR HOSPITALIZATION: Flank pain and daily fevers DIAGNOSIS: Upper Urinary Tract Infection OPERATIONS DURING HOSPITALIZATION: None PROCEDURES DURING HOSPITALIZATION: No procedures performed US PREG TRANSABD <14 WEEKS LTD 03/15/2023 Final Result IMPRESSION: Single, live intrauterine gestation. Estimated Gestational Age: 8 weeks, 2 days by crown rump length. US PREG TRANSVAG <14 WEEKS 03/15/2023 Final Result IMPRESSION: Single, live intrauterine gestation. Estimated Gestational Age: 8 weeks, 2 days by crown rump length. US KIDNEY/BLADDER 03/14/2023 Final Result IMPRESSION: NO HYDRONEPHROSIS OR SHADOWING RENAL CALCULUS. XR CHEST 1V FRONTAL PORT 03/13/2023 Final Result RESULT: Lines, tubes, and devices: None. Lungs and pleura: The lungs are clear. No pleural effusion or pneumothorax. Cardiomediastinal silhouette: Stable nonenlarged cardiomediastinal silhouette. MRI ABDOMEN WO IVCON (Results Pending) HOSPITAL COURSE: Qian Clements is a 32 year old female w/ PMH Adult onset Stills Disease, Benign liver angioma s/p resection, iron deficiency anemia, asthma, appendectomy, cholecystectomy, and 4 prior pregnancies (1 ), and is currently 8 weeks who presented to the ED on 03/13/2023 for left flank pain. She was treated with empiric IV antibiotics and otherwise managed supportively. While imaging did not show evidence of infection, she improved in the days following her admission. She also had vaginal spotting and bleeding while in the hospital for which OBGYN was consulted. They recommended imaging which did not show anything of concern and recommended antibiotic treatment until delivery, and then follow up with the patients local OBGYN. Problem based: #Back pain/Flank pain Assessment: Flank pain improved in days following discharge. Likely due to pyelonephritis, or some type of upper urinary tract infection. Plan: - Continue antibiotic suppression therapy until delivery. #Spotting/Vaginal Bleeding Patient had some spotting and vaginal bleeding, but OBGYN did not find anything of concern on imaging or exam. Follow up with local outpatient OB Transitions of Care Critical Issues: Medications to continue: Plan: Continue taking Augmentin 875mg BID through 03/22 to treat your kidney infection. Please follow-up with your guide winder doctor regarding ongoing antibiotic recommendations in LABS AND PROCEDURES PENDING AT DISCHARGE: No pending results. PATIENT CONDITION AT DISCHARGE: Stable DISCHARGE DISPOSITION: Home with Self Care Discharge Physical Exam: VITAL SIGNS: BP 116/91 Pulse 90 Temp 36.8 ?C (98.2 ?F) (Oral) Resp 17 Ht 162.6 cm (5' 4 ) Wt 112.7 kg (248 lb 7.3 oz) LMP (LMP Unknown) SpO2 99% BMI 42.65 kg/m? GENERAL: Alert, no distress, cooperative HEAD/SINUSES: No significant findings LUNGS: Lungs clear to auscultation, Good diaphragmatic excursion CARDIAC: Normal S1 and S2; no rubs, murmurs, or gallops ABDOMEN: Abdomen soft, non-tender, BS normal, No masses or organomegaly NEURO: Gait normal. Reflexes normal and symmetric. Sensation grossly intact. WOUND/SURGICAL SITE CARE: None DIET: Resume pre-hospital diet ACTIVITY: Resume pre-hospital activity ALLERGIES Allergen Reactions Ciprofloxacin Vomiting Codeine Vomiting Convulsions per mother Phenergan [Prometha* Vomiting Convulsions per mother DISCHARGE MEDICATION: Medication List START taking these medications amoxicillin-clavulanic acid 875-125 mg per tablet Commonly known as: AUGMENTIN Take 1 tablet by mouth every 12 hours for 11 doses. multivitamin 28 mg iron- 800 mcg tab(s) Commonly known as: CLASSIC Take 1 tablet by mouth once daily. CONTINUE taking these medications albuterol HFA 90 mcg/actuation inhaler Commonly known as: PROVENTIL HFA, VENTOLIN HFA Inhale 2 Puffs as instructed three times daily as needed (FOR SOB, WHEEZING OR COUGH). ondansetron 4 mg tablet Commonly known as: ZOFRAN TABLET ORAL Tylen (more content not included)... Normal [facility] Magnesium SerPl-ncon 03-17 Magnesium [Mass/Vol] 2.0 mg/dL Normal 1.7-2.3 [facility] Comment on above: Order Comment: Speci men Type: BLOOD SPECIMENOrdering Facility: [facility] Address: [address] Performed By: #### 2 4362-6, ####[facility] [id number] [place] [address] [place] Renal function [address] [place] [address] 03-17-2023 Albumin [Mass/Vol] 3.7 g/dL Low 3.9-4.9 [facility] Comment on above: Order Comment: Speci men Type: BLOOD SPECIMENOrdering Facility: [facility] Address: [address] Performed By: #### 2 436-6, ####[facility] [id number] [place] [address] [place] Anion gap [Moles/Vol] 15 mmol/L Normal 9-18 [facility] Comment on above: Order Comment: Speci men Type: BLOOD SPECIMENOrdering Facility: [facility] Address: [address] [place] [address] Performed By: #### 2 436-6, ####[facility] [id number] [place] [id number] [place] Calcium [Mass/Vol] 9.6 mg/dL Normal 8.5-10.2 [facility] Comment on above: Order Comment: Speci men Type: BLOOD SPECIMENOrdering Facility: [facility] Address: [address] Performed By: #### 2 43609-27, ####[facility] [id number] [place] [address] [place] Chloride [Moles/Vol] 99 mmol/L Normal 97-105 [facility] Comment on above: Order Comment: Speci men Type: BLOOD SPECIMENOrdering Facility: [facility] Address: [address] [place] [address] Performed By: #### 2 43626, ####[facility] [id number] [place] [address] [place] CO2 [Moles/Vol] 20 mmol/L Low 22-30 [facility] Comment on above: Order Comment: Speci men Type: BLOOD SPECIMENOrdering Facility: [facility] Address: [address] [place] [address] Performed By: #### 2 43609-27, ####[facility] [id number] [place] [address] [place] Creatinine [Mass/Vol] 0.67 mg/dL Normal 0.58-0.96 [facility] Comment on above: Order Comment: Speci men Type: BLOOD SPECIMENOrdering Facility: [facility] Address: [address] [place] [address] Performed By: #### 2 43626, ####[facility] [id number] [address] [place] ESTIMATED GLOMERULAR FILTRATION RATE 121 mL/min/1.73m??? Normal >=60 [facility] Comment on above: Order Comment: Speci men Type: BLOOD SPECIMENOrdering Facility: [facility] Address: [address] [place] [address] Result Comment: Marisa mated Glomerular Filtration Rate (eGFR) is calculated using the 2020 CKD-EPI creatinine equation. This equation utilizes serum creatinine, sex, and age as parameters. The creatinine assay has traceable calibration to isotope dilution-mass spectrometry. Refer to KDIGO guidelines for clinical interpretation. In patients with unstable renal function, e.g. those with acute kidney injury, the eGFR may not accurately reflect actual GFR. Performed By: #### 2 4362-6, ####[facility] [id number] [address] [address] [place] Glucose [Mass/Vol] 130 mg/dL High 74-99 [facility] Comment on above: Order Comment: Tee francisco Type: BLOOD SPECIMENOrdering Facility: [facility] Address: [address] [place] [address] Result Comment: The [place] Diabetes [employer] (ADA) provides guidance for cutoff values for fasting glucose and random glucose. The ADA defines fasting as no caloric intake for at least 8 hours. Fasting plasma glucose results between 100 to 125 mg/dL indicate increased risk for diabetes (prediabetes). Fasting plasma glucose results greater than or equal to 126 mg/dL meet the criteria for diagnosis of diabetes. In the absence of unequivocal hyperglycemia, results should be confirmed by repeat testing. In a patient with classic symptoms of hyperglycemia or hyperglycemic crisis, random plasma glucose results greater than or equal to 200 mg/dL meet the criteria for diagnosis of diabetes. Reference: Standards of Medical Care in Diabetes 2016, [place] [employer]. Diabetes Care. 2016.39(Suppl 1). Performed By: #### 2 436-6, ####[facility] [id number] [place] [address] [place] Phosphate [Mass/Vol] 3.7 mg/dL Normal 2.7-4.8 [facility] Comment on above: Order Comment: Tee francisco Type: BLOOD SPECIMENOrdering Facility: [facility] Address: [address] [place] [address] Performed By: #### 2 436-, ####[facility] [id number] [address] [address] [place] Potassium [Moles/Vol] 3.9 mmol/L Normal 3.7-5.1 [facility] Comment on above: Order Comment: Speci men Type: BLOOD SPECIMENOrdering Facility: [facility] Address: [address] [place] [address] Performed By: #### 2 4362-6, ####[facility] [id number] [address] [place] Sodium [Moles/Vol] 134 mmol/L Low 136-144 [facility] Comment on above: Order Comment: Speci men Type: BLOOD SPECIMENOrdering Facility: [facility] Address: [address] [place] [address] Performed By: #### 2 4362-6, ####[facility] [id number] [address] [place] Urea nitrogen [Mass/Vol] 12 mg/dL Normal 7-21 [facility] Comment on above: Order Comment: Speci men Type: BLOOD SPECIMENOrdering Facility: [facility] Address: [address] [place] [address] Performed By: #### 2 4362-6, ####[facility] [id number] [address] [place] ALLIED HEALTHon 03-16-2023 ALLIED HEALTH HNO ID: [id number] Author: Heather Mcnair RT(R) Service: ? Author Type: Technologist Type: Allied Health Filed: 03/16/2023 9:18 PM Note Text: Radiology Service Progress Note PATIENT NAME: Qian Clements DATE OF SERVICE: March 16, 2023 TIME: 9:16 PM PATIENT IDENTITY VERIFICATION COMPLETED USING TWO (2) IDENTIFIERS: Name and Date of confirmed by patient verbally and Name and Date of confirmed by identification band. FALL SCREENING: Has the patient had 2 falls in the last year or 1 fall with injury or currently using an Ambulatory Assistive Device (Walker, Cane, Wheelchair, Crutches, etc.)? Inpatient: Screened on floor PATIENT GENDER DATA: Female. status: : Yes. Radiologist notified: Dr. Michell ELLER status: NO. PATIENT RELEVANT IMPLANT DATA REVIEWED: Yes RADIOLOGY DEPARTMENT: MR; Exam(s) Completed: Body: Liver (routine) PERIPHERAL IV DATA: Not applicable SIGNED BY: RT Dorian(R) March 16, 2023 9:16 PM Normal [facility] CBC panel Auto (Bld)on 03-16 Erythrocyte distribution width (RBC) [Ratio] 13.4 % Normal 11.5-15.0 [facility] Comment on above: Order Comment: Speci men Type: BLOOD SPECIMENOrdering Facility: [facility] Address: [address] [place] [address] Performed By: #### 5 8410-2 ####[facility] [id number] [address] [place] Hematocrit (Bld) [Volume fraction] 33.1 % Low 36.0-46.0 [facility] Comment on above: Order Comment: Speci men Type: BLOOD SPECIMENOrdering Facility: [facility] Address: [address] [place] [address] Performed By: #### 5 8410-2 ####[facility] [id number] [address] [place] Hemoglobin (Bld) [Mass/Vol] 10.7 g/dL Low 11.5-15.5 [facility] Comment on above: Order Comment: Speci men Type: BLOOD SPECIMENOrdering Facility: [facility] Address: [address] [place] [address] Performed By: #### 5 8410-2 ####[facility] [id number] [place] [address] [place] MCH (RBC) [Entitic mass] 26.4 pg Normal 26.0-34.0 [facility] Comment on above: Order Comment: Speci men Type: BLOOD SPECIMENOrdering Facility: [facility] Address: [address] [place], [place] [id number] Performed By: #### 5 8410-2 ####[facility] [id number] [address] STATES [facility] MCHC (RBC) [Mass/Vol] 32.3 g/dL Normal 30.5-36.0 [facility] Comment on above: Order Comment: Speci men Type: BLOOD SPECIMENOrdering Facility: [facility] Address: [address] Performed By: #### 5 8410-2 ####[facility] [id number] [place] [address] [place] MCV (RBC) [Entitic vol] 81.7 fL Normal 80.0-100.0 [facility] Comment on above: Order Comment: Speci men Type: BLOOD SPECIMENOrdering Facility: [facility] Address: [address] [place], [place] [id number] Performed By: #### 5 8410-2 ####[facility] [id number] [place] [address] [place] Nucleated RBC (Bld) [#/Vol] 10*3/uL Normal <0.01 [facility] Comment on above: Order Comment: Speci men Type: BLOOD SPECIMENOrdering Facility: [facility] Address: [address] [place], [place] [id number] Performed By: #### 5 8410-2 ####[facility] [id number] [address] [place] Platelet mean volume (Bld) [Entitic vol] 9.0 fL Normal 9.0-12.7 [facility] Comment on above: Order Comment: Speci men Type: BLOOD SPECIMENOrdering Facility: [facility] Address: [address] [place], [place] [id number] Performed By: #### 5 8410-2 ####[facility] [id number] [place] [address] [place] Platelets (Bld) [#/Vol] 444 10*3/uL High 150-400 [facility] Comment on above: Order Comment: Speci men Type: BLOOD SPECIMENOrdering Facility: [facility] Address: [address] [place] [address] Performed By: #### 5 8410-2 ####[facility] [id number] [place] [address] [facility] [place] RBC (Bld) [#/Vol] 4.05 10*6/uL Normal 3.90-5.20 [facility] Comment on above: Order Comment: Speci men Type: BLOOD SPECIMENOrdering Facility: [facility] Address: [address] [place] [address] Performed By: #### 5 8410-2 ####[facility] [id number] [place] [address] [facility] WBC (Bld) [#/Vol] 8.78 10*3/uL Normal 3.70-11.00 [facility] Comment on above: Order Comment: Speci men Type: BLOOD SPECIMENOrdering Facility: [facility] Address: [address] [place] [address] Performed By: #### 5 8410-2 ####[facility] [id number] [address] OF [facility] CONSULT PROGon 03-16-2023 CONSULT PROG HNO ID: [id number] Author: Abbie Cifuentes MD Service: Obstetrics Author Type: Physician Type: Consult Progress Note Filed: 03/16/2023 7:27 AM Note Text: patient access specialist consult progress note Review the US on 03/15 with patient : Single , Live Intrauterine gestation / 8 weeks 2 days by CRL Blood Type : O positive Patient will follow up with her local patient access specialist to continue care. Maintenance Porter sign off If any question , [place] [phone]. Abbie Cifuentes MDt 03/16/2023 7:27 AM Normal [facility] MRI ABDOMEN WO IVCONon 03-16 MRI ABDOMEN WO IVCON * * *Final Report* * * DATE OF EXAM: Mar 16 2023 9:03PM QBM [id number] - MRI ABDOMEN WO IVCON / PROCEDURE REASON: Abdominal abscess/infection suspected * * * * Physician Interpretation * * * * MRI ABDOMEN WITHOUT AND WITH IV CONTRAST CLINICAL HISTORY: History of adult onset Still's disease, prior resection of hepatic adenoma, currently 8 weeks admitted for left flank pain with leukocytosis. TECHNIQUE: Magnet: 1.5T scanner. Multiplanar MRI of the abdomen with multiple sequences without IV contrast. Contrast: None COMPARISON: US 03/15/2023, 03/14/2023, MRI 12/16/2015 RESULT: Liver: No hepatic steatosis. No mass. Mild capsular retraction in inferior segment 4 resection bed, likely postsurgical. Spleen: No mass or splenomegaly. Mesentery/Peritoneum: No ascites. No mass. Biliary: No bile duct dilation. Cholecystectomy. Pancreas: No mass or duct dilation. Adrenals: No mass. Kidneys: No hydronephrosis. No mass. Heterogeneous striated restricted diffusion in the left kidney is nonspecific but suggestive of pyelonephritis (10:99-103). GI: No dilated bowel or wall thickening in imaged segments. Lymph nodes: No abdominal lymphadenopathy. Vasculature: No abdominal aortic aneurysm. Preserved flow voids in the celiac axis, SMA, and main portal vein. Bones/Soft Tissues: No significant osseous findings. Trace fluid/edema in the posterior soft tissues. Lower chest: Unremarkable. Localizer: No additional findings. IMPRESSION: FINDINGS SUGGESTIVE OF LEFT PYELONEPHRITIS. NO HYDRONEPHROSIS. COMMUNICATION: Communicated with [facility] on 03/17/2023 9:32 AM via verbal communication. Management Supervisor: PSCB Transcribe Date/Time: Mar 17 2023 8:02A Dictated by : BRANDEN DE LA TORRE MD This examination was interpreted and the report reviewed and electronically signed by: JAZMIN VALENTE MD on Mar 17 2023 9:50AM EST [id number] Normal [facility] Magnesium SerPl-mCncon 03-16 Magnesium [Mass/Vol] 1.9 mg/dL Normal 1.7-2.3 [facility] Comment on above: Order Comment: Speci men Type: BLOOD SPECIMENOrdering Facility: [facility] Address: [address] [place], [place] [id number] Performed By: #### 1 9123-9, 03397-5 ####[facility] [id number] [place] [address] [place] Renal function 2000 panelon 03-16-2023 Albumin [Mass/Vol] 3.6 g/dL Low 3.9-4.9 [facility] Comment on above: Order Comment: Speci men Type: BLOOD SPECIMENOrdering Facility: [facility] Address: [address] [place], [place] [id number] Performed By: #### 1 9123-9, 38395-7 ####[facility] [id number] [place] [address] [place] Anion gap [Moles/Vol] 14 mmol/L Normal 9-18 [facility] Comment on above: Order Comment: Speci men Type: BLOOD SPECIMENOrdering Facility: [facility] Address: [address] [place], [place] [id number] Performed By: #### 1 9123-9, 70887-6 ####[facility] [id number] [place] [address] [place] Calcium [Mass/Vol] 9.3 mg/dL Normal 8.5-10.2 [facility] Comment on above: Order Comment: Speci men Type: BLOOD SPECIMENOrdering Facility: [facility] Address: [address] [place], [place] [id number] Performed By: #### 1 9123-9, 33053-8 ####[facility] LABCLIA [id number] [place] [address] [place] Chloride [Moles/Vol] 102 mmol/L Normal 97-105 [facility] Comment on above: Order Comment: Speci men Type: BLOOD SPECIMENOrdering Facility: [facility] Address: [address] [address] Performed By: #### 1 9123-9, 82112-2 ####[facility] LABIA [id number] [address] CO2 [Moles/Vol] 20 mmol/L Low 22-30 [facility] Comment on above: Order Comment: Speci men Type: BLOOD SPECIMENOrdering Facility: [facility] Address: [address] [place] [address] Performed By: #### 1 9123-9, 35786-8 ####[facility] [id number] [address] Creatinine [Mass/Vol] 0.71 mg/dL Normal 0.58-0.96 [facility] Comment on above: Order Comment: Speci men Type: BLOOD SPECIMENOrdering Facility: [facility] Address: [address] [place] [address] Performed By: #### 1 9123-9, 85855-2 ####[facility] [id number] [address] ESTIMATED GLOMERULAR FILTRATION RATE 117 mL/min/1.73m??? Normal >=60 [facility] Comment on above: Order Comment: Speci men Type: BLOOD SPECIMENOrdering Facility: [facility] Address: [address] [place] [address] Result Comment: Marisa mated Glomerular Filtration Rate (eGFR) is calculated using the 2020 CKD-EPI creatinine equation. This equation utilizes serum creatinine, sex, and age as parameters. The creatinine assay has traceable calibration to isotope dilution-mass spectrometry. Refer to KDIGO guidelines for clinical interpretation. In patients with unstable renal function, e.g. those with acute kidney injury, the eGFR may not accurately reflect actual GFR. Performed By: #### 1 9123-9, 02236-3 ####[facility] LABIA [id number] [place] [address] [place] Glucose [Mass/Vol] 125 mg/dL High 74-99 [facility] Comment on above: Order Comment: Speci men Type: BLOOD SPECIMENOrdering Facility: [facility] Address: [address] [place] [address] Result Comment: The [place] Diabetes Association (ADA) provides guidance for cutoff values for fasting glucose and random glucose. The ADA defines fasting as no caloric intake for at least 8 hours. Fasting plasma glucose results between 100 to 125 mg/dL indicate increased risk for diabetes (prediabetes). Fasting plasma glucose results greater than or equal to 126 mg/dL meet the criteria for diagnosis of diabetes. In the absence of unequivocal hyperglycemia, results should be confirmed by repeat testing. In a patient with classic symptoms of hyperglycemia or hyperglycemic crisis, random plasma glucose results greater than or equal to 200 mg/dL meet the criteria for diagnosis of diabetes. Reference: Standards of Medical Care in Diabetes 2016, [place] [employer]. Diabetes Care. 2016.39(Suppl 1). Performed By: #### 1 9123-9, 16661-4 ####[facility] LABCLIA [id number] [place] [address] [place] Phosphate [Mass/Vol] 3.7 mg/dL Normal 2.7-4.8 [facility] Comment on above: Order Comment: Tee francisco Type: BLOOD SPECIMENOrdering Facility: [facility] Address: [address] [place] [address] Performed By: #### 1 9123-9, 31407-6 ####[facility] LABCLIA [id number] [place] [address] [place] Potassium [Moles/Vol] 3.9 mmol/L Normal 3.7-5.1 [facility] Comment on above: Order Comment: Speci men Type: BLOOD SPECIMENOrdering Facility: [facility] Address: [address] [place] [address] Performed By: #### 1 9123-9, 90161-9 ####[facility] LABCLIA [id number] [place] [address] [place] Sodium [Moles/Vol] 136 mmol/L Normal 136-144 [facility] Comment on above: Order Comment: Speci men Type: BLOOD SPECIMENOrdering Facility: [facility] Address: [address] [place] [address] Performed By: #### 1 9123-9, 73925-2 ####[facility] LABCLIA [id number] [address] [place] Urea nitrogen [Mass/Vol] 10 mg/dL Normal 7-21 [facility] Comment on above: Order Comment: Speci men Type: BLOOD SPECIMENOrdering Facility: [facility] Address: [address] [place] [address] Performed By: #### 1 9123-9, 65368-2 ####[facility] LABCLIA [id number] [place] [address] [place] [facility] CBC panel Auto (Bld)on 03-15 Erythrocyte distribution width (RBC) [Ratio] 13.5 % Normal 11.5-15.0 [facility] Comment on above: Order Comment: Speci men Type: BLOOD SPECIMENOrdering Facility: [facility] Address: [address] [place] [address] Performed By: #### 5 8410-2 ####[facility] LABCLIA [id number] [place] [address] [place] Hematocrit (Bld) [Volume fraction] 32.4 % Low 36.0-46.0 [facility] Comment on above: Order Comment: Speci men Type: BLOOD SPECIMENOrdering Facility: [facility] Address: [address] [place] [address] Performed By: #### 5 8410-2 ####[facility] LABCLIA [id number] [place] [address] [place] Hemoglobin (Bld) [Mass/Vol] 10.4 g/dL Low 11.5-15.5 [facility] Comment on above: Order Comment: Speci men Type: BLOOD SPECIMENOrdering Facility: [facility] Address: [address] Performed By: #### 5 8410-2 ####[facility] LABIA [id number] [address] MCH (RBC) [Entitic mass] 26.6 pg Normal 26.0-34.0 [facility] Comment on above: Order Comment: Speci men Type: BLOOD SPECIMENOrdering Facility: [facility] Address: [address] [place], [place] [id number] Performed By: #### 5 8410-2 ####[facility] LABIA [id number] [address] [place] MCHC (RBC) [Mass/Vol] 32.1 g/dL Normal 30.5-36.0 [facility] Comment on above: Order Comment: Speci men Type: BLOOD SPECIMENOrdering Facility: [facility] Address: [address] [place], [place] [id number] Performed By: #### 5 8410-2 ####[facility] LABIA [id number] [address] [place] MCV (RBC) [Entitic vol] 82.9 fL Normal 80.0-100.0 [facility] Comment on above: Order Comment: Speci men Type: BLOOD SPECIMENOrdering Facility: [facility] Address: [address] [place], [place] [id number] Performed By: #### 5 8410-2 ####[facility] LABIA [id number] [address] [place] Nucleated RBC (Bld) [#/Vol] 10*3/uL Normal <0.01 [facility] Comment on above: Order Comment: Speci men Type: BLOOD SPECIMENOrdering Facility: [facility] Address: [address] Performed By: #### 5 8410-2 ####[facility] LABIA [id number] [place] [address] [place] Platelet mean volume (Bld) [Entitic vol] 9.5 fL Normal 9.0-12.7 [facility] Comment on above: Order Comment: Speci men Type: BLOOD SPECIMENOrdering Facility: [facility] Address: [address] Performed By: #### 5 8410-2 ####[facility] LABIA [id number] [place] [address] [place] Platelets (Bld) [#/Vol] 450 10*3/uL High 150-400 [facility] Comment on above: Order Comment: Speci men Type: BLOOD SPECIMENOrdering Facility: [facility] Address: [address] Performed By: #### 5 8410-2 ####[facility] LABIA [id number] [place] [address] [place] RBC (Bld) [#/Vol] 3.91 10*6/uL Normal 3.90-5.20 [facility] Comment on above: Order Comment: Speci men Type: BLOOD SPECIMENOrdering Facility: [facility] Address: [address] [place] [address] Performed By: #### 5 8410-2 ####[facility] LABIA [id number] [place] [address] [place] WBC (Bld) [#/Vol] 10.48 10*3/uL Normal 3.70-11.00 [facility] Comment on above: Order Comment: Speci men Type: BLOOD SPECIMENOrdering Facility: [facility] Address: [address] [place], [place] [id number] Performed By: #### 5 8410-2 ####[facility] LABCLIA [id number] [address] [place] CONSULTon 03-15-2023 CONSULT HNO ID: [id number] Author: Abbie Cifuentes MD Service: Gynecology Author Type: Physician Type: Consults Filed: 03/15/2023 10:49 AM Note Text: GYNECOLOGY INITIAL CONSULTATION SERVICE DATE: 03/15/2023 SERVICE TIME: 9:11 AM CONSULTING PHYSICIAN: Manoj Ramos MD REASON FOR CONSULT: Vaginal bleeding in ASSESSMENT AND PLAN: 32 year old with PMHx Stills disease, benign liver angioma s/p resection, at 8 weeks 6 days gestation (by LMP) admitted for pyelonephritis, seen by gynecology for vaginal spotting. Vaginal bleeding in - LMP 01/12, consistent with 8 weeks +6 days - Quant Hcg >10,000 on 03/13, no need to repeat - Pelvic exam with scant blood at cervical os, no active vaginal bleeding - Reassured patient that small amount of spotting can be normal in early - Hgb stable at 10.4 - Recommend TANDS, Rhogam if Rh- - Recommend TVUS to evaluate for dating, viability of - she has an appoint met with her OBGYN on Tuesday. - No need for previously ordered pelvic MRI at this time - No further management from gynecology perspective - Please call gynecology team if bleeding increases to saturating a pad in <1 hr Seen and evaluated with Dr. Cifuentes, [facility] staff. Pretty Duncan DO 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 Resident, PGY-1 9:11 AM After 5pm and on weekends please page [phone]. SUBJECTIVE HPI: 32 year old with PMHx Stills disease, benign liver angioma s/p resection, at 8 weeks 6 days gestation (by LMP) admitted for pyelonephritis, seen by gynecology for vaginal spotting. States she began experiencing flank pain with hematuria, without dysuria or frequency, on February 22. Called her OB provider (Dr. Ricks at [facility]), who gave rx for macrobid. Had no further hematuria but flank pain continued. 4-5 days ago, began experiencing fevers, up to 102.6 at OSH. Since admission, has also developed mild R flank pain. Pain well-managed on morphine. Denies pelvic/abdominal pain. First noticed minimal vaginal spotting yesterday, slightly increased today, with pink-tinged urine in the toilet and some blood when wiping. Feels quite sure the bleeding is vaginal and not in urine. Has not seen an OB this , but had positive home test after missed period. LMP 01/12. Has had daily nausea with ~2 episodes vomiting a day since finding out she was . Takes zofran at home with good relief. This is desired, and she is very worried there is something wrong causing her bleeding. Has OB appointment scheduled this Tuesday (03/18) Was transferred to [facility] for management given her history of Stills disease. Has not had a Stills flare in several years, not currently on any medication. Previous symptoms during flares included joint and muscle pain. Was also found to have hepatomegaly with a benign liver angioma removed surgically 8 years ago. OBHx: : spontaneous vaginal delivery at 35 wga c/b pre-e G2: spontaneous G3: at term G4: induced for pre-e (gestational age not stated) G5: admitted for GREENE, HTN at 32 wga, seizure on Mg, emergency CS. Delivered 9 mo ago [facility] Hx: LMP: 01/12/23 Menses: regular every 28 days, last 5-7 days changing pad every 2 hours Last Pap: date: approx. 9 mo ago, results: normal History of abnormal pap: No Sexual History: one parter Contraception: none, not intentionally trying to conceive Hx of STD: No HISTORY: PAST MEDICAL HISTORY Diagnosis Date ADHD (attention deficit hyperactivity disorder) Hemangioma Microcytic anemia Miscarriage depression Still's disease (HCC) Vitamin D insufficiency PAST SURGICAL HISTORY Procedure Laterality Date MIDLINE INSERTION/CONSULT 11/16/2013 FAMILY HISTORY Problem Relation Age of Onset other (dermatomyositis [Other]) Unknown other (sarcoid [Other]) Unknown Social History Tobacco Use Smoking status: Former Packs/day: 0.50 Years: 4.00 Total pack years: 2.00 Types: Cigarettes Quit date: 07/02/2014 Years since quittin.7 Smokeless tobacco: Never Substance Use Topics Alcohol use: No Drug use: No ALLERGIES: ALLERGIES Allergen Reactions Ciprofloxacin Vomiting Codeine Vomiting Convulsions per mother Phenergan [Prometha* Vomiting Convulsions per mother MEDICATIONS: No current facility-administered medications on file prior to encounter. Current Outpatient Medications on File Prior to Encounter Medication Sig vit/iron fum/folic ac ( TABLET ORAL) Take 1 tablet by mouth once daily. acetaminophen (TYLENOL) 325 mg tablet Take 650 mg by mouth every 6 hours as needed for pain or fever (specify). ondansetron (ZOFRAN) 4 mg tablet Take 4 mg by mouth every 6 hours as needed for nausea/vomiting. albuterol HFA (PROVENTIL HFA, VENTOLIN HFA) 90 mcg/actuation inhaler Inhale 2 Puffs as instructed three times daily as needed (FOR SOB, WHEEZING OR COUGH). ROS: The remainde (more content not included)... Normal [facility] CRP SerPl-ncon 03-15-2023 CRP [Mass/Vol] 9.0 mg/dL High <0.9 [facility] Comment on above: Order Comment: Speci men Type: BLOOD SPECIMENOrdering Facility: [facility] Address: [address] [place] [address] Performed By: #### 1 988-5, 52489-9, 00192-8 ####[facility] LABCLIA [id number] [address] [place] MEDICAL EMERon 03-15-2023 MEDICAL DEVI HNO ID: [id number] Author: Jose De Jesus White APRN.CABLE TECHNICIAN Service: Critical Care Author Type: Nurse Practitioner Type: Chg in Clinical Condition Filed: 03/15/2023 9:11 AM Note Text: MEDICAL EMERGENCY TEAM AMET CODE STATUS: Code Status: Not on file A/P: Vaginal bleeding in - Began having spotting last night, progressed to what sounds like light bleeding this AM - d/w OB who requested type AND screen and will perform pelvic exam REASON FOR CALL Vaginal bleeding HPI: Ms. Clements was transferred to [facility] 03/13 from [facility] for further mgmt of possible pyelonephritis, adult onset Stills disease. Currently on amp-sulbactam, began having some spotting last night. AMET activated for vaginal bleeding. INTERVENTIONS Called OB for help DISPOSITIONS Unchanged Primary Team Notified: Yes PAST MEDICAL / SURGICAL HISTORY PAST MEDICAL HISTORY Diagnosis Date ADHD (attention deficit hyperactivity disorder) Hemangioma Microcytic anemia Miscarriage depression Still's disease (HCC) Vitamin D insufficiency PAST SURGICAL HISTORY Procedure Laterality Date MIDLINE INSERTION/CONSULT 11/16/2013 PERTINENT PHYSICAL EXAM and INITIAL ASSESSMENT (For vital signs prior and during MET call, see nursing documentation) Pertinent Vital Signs at Time of MET Call: VSS Appearance: Alert and No distress Airway Patent: Yes Breathing Evaluation: Normal Circulation Evaluation: Skin warm and well perfused Neurologic Evaluation: GCS Evaluation: 4. Spontaneous, 5: Oriented 6: Obeys Motor commands Is the Level of Consciousness at Baseline: Yes Abdomen: soft and tender Peripheral 03/13/23 1300 [facility] Short Left Antecubital 18 Gauge (Active) Placement Date/Time: 03/13/23 1300 Line, Drain, Airway Placed by: [facility] Type of Peripheral Line: Short Location: Left Insertion Site: Antecubital Size: 18 Gauge Line Placed Under Ultrasound Guidance: Yes Peripheral 03/13/23 1300 [facility] Right Forearm 18 Gauge (Active) Placement Date/Time: 03/13/23 1300 Line, Drain, Airway Placed by: [facility] Location: Right Insertion Site: Forearm Size: 18 Gauge Line Placed Under Ultrasound Guidance: Yes PERTINENT DIAGNOSTICS Diagnostic Tests Reviewed: Most recent labs and imaging results. Primary Team Aware/Notified: Yes SIGNATURE: Jose De Jesus White APRN.CNP PATIENT NAME: Qian Clements DATE: March 15, 2023 TIME: 8:57 AM Normal [facility] Magnesium SerPl-mCncon 03-15 Magnesium [Mass/Vol] 2.1 mg/dL Normal 1.7-2.3 [facility] Comment on above: Order Comment: Speci men Type: BLOOD SPECIMENOrdering Facility: [facility] Address: [address] [place], [place] [address] Performed By: #### 1 988-5, 81670-8, 12189-4 ####[facility] LABCLIA [id number] [place] [address] [place] Renal function 2000 panelon 03-15-2023 Albumin [Mass/Vol] 3.7 g/dL Low 3.9-4.9 [facility] Comment on above: Order Comment: Speci men Type: BLOOD SPECIMENOrdering Facility: [facility] Address: [address] Performed By: #### 1 988-5, , ####[facility] LABCLIA [id number] [place] [address] [place] Anion gap [Moles/Vol] 12 mmol/L Normal 9-18 [facility] Comment on above: Order Comment: Speci men Type: BLOOD SPECIMENOrdering Facility: [facility] Address: [address] Performed By: #### 1 988-5, , ####[facility] LABCLIA [id number] [place] [address] [place] Calcium [Mass/Vol] 9.5 mg/dL Normal 8.5-10.2 [facility] Comment on above: Order Comment: Speci men Type: BLOOD SPECIMENOrdering Facility: [facility] Address: [address] Performed By: #### 1 988-5, , ####[facility] LABCLIA [id number] [place] [address] [place] Chloride [Moles/Vol] 103 mmol/L Normal 97-105 [facility] Comment on above: Order Comment: Speci men Type: BLOOD SPECIMENOrdering Facility: [facility] Address: [address] [id number] Performed By: #### 1 988-5, , ####[facility] LABCLIA [id number] [address] [address] [place] CO2 [Moles/Vol] 21 mmol/L Low 22-30 [facility] Comment on above: Order Comment: Speci men Type: BLOOD SPECIMENOrdering Facility: [facility] Address: [address] [id number] Performed By: #### 1 988-5, , ####[facility] LABIA [id number] [address] [id number] [place] Creatinine [Mass/Vol] 0.77 mg/dL Normal 0.58-0.96 [facility] Comment on above: Order Comment: Speci men Type: BLOOD SPECIMENOrdering Facility: [facility] Address: [address] [address] Performed By: #### 1 988-5, , ####[facility] LABIA [id number] [address] [place] ESTIMATED GLOMERULAR FILTRATION RATE 107 mL/min/1.73m??? Normal >=60 [facility] Comment on above: Order Comment: Speci men Type: BLOOD SPECIMENOrdering Facility: [facility] Address: [address] [address] Result Comment: Marisa mated Glomerular Filtration Rate (eGFR) is calculated using the 2020 CKD-EPI creatinine equation. This equation utilizes serum creatinine, sex, and age as parameters. The creatinine assay has traceable calibration to isotope dilution-mass spectrometry. Refer to KDIGO guidelines for clinical interpretation. In patients with unstable renal function, e.g. those with acute kidney injury, the eGFR may not accurately reflect actual GFR. Performed By: #### 1 988-5, , ####[facility] LABIA [id number] [place] [id number] [place] Glucose [Mass/Vol] 102 mg/dL High 74-99 [facility] Comment on above: Order Comment: Speci men Type: BLOOD SPECIMENOrdering Facility: [facility] Address: [address] [address] Result Comment: The [place] Diabetes Association (ADA) provides guidance for cutoff values for fasting glucose and random glucose. The ADA defines fasting as no caloric intake for at least 8 hours. Fasting plasma glucose results between 100 to 125 mg/dL indicate increased risk for diabetes (prediabetes). Fasting plasma glucose results greater than or equal to 126 mg/dL meet the criteria for diagnosis of diabetes. In the absence of unequivocal hyperglycemia, results should be confirmed by repeat testing. In a patient with classic symptoms of hyperglycemia or hyperglycemic crisis, random plasma glucose results greater than or equal to 200 mg/dL meet the criteria for diagnosis of diabetes. Reference: Standards of Medical Care in Diabetes 2016, [place] Diabetes [employer]. Diabetes Care. 2016.39(Suppl 1). Performed By: #### 1 988-5, 41931-6, 89767-3 ####[facility] LABIA [id number] [place] [address] [place] Phosphate [Mass/Vol] 3.5 mg/dL Normal 2.7-4.8 [facility] Comment on above: Order Comment: Speci men Type: BLOOD SPECIMENOrdering Facility: [facility] Address: [address] [place] [address] Performed By: #### 1 988-5, , 53957-1 ####[facility] [id number] [place] [address] [place] Potassium [Moles/Vol] 4.3 mmol/L Normal 3.7-5.1 [facility] Comment on above: Order Comment: Speci men Type: BLOOD SPECIMENOrdering Facility: [facility] Address: [address] [place] [address] Performed By: #### 1 988-5, , 33146-5 ####[facility] LABGI[facility] [id number] [place] [address] [place] Sodium [Moles/Vol] 136 mmol/L Normal 136-144 [facility] Comment on above: Order Comment: Speci men Type: BLOOD SPECIMENOrdering Facility: [facility] Address: [address] [place] [address] Performed By: #### 1 988-5, 15199-2, 36665-6 ####[facility] LABCLIA [id number] [place] [address] [place] Urea nitrogen [Mass/Vol] 11 mg/dL Normal 7-21 [facility] Comment on above: Order Comment: Speci men Type: BLOOD SPECIMENOrdering Facility: [facility] Address: [address] [place] [address] Performed By: #### 1 988-5, 38472-0, 15430-4 ####[facility] LABCLIA [id number] [place] [address] [place] TYPE + SCREEN PRENATALon ABO O Normal [facility] Comment on above: Order Comment: Speci men Type: BLOOD SPECIMENOrdering Facility: [facility] Address: [address] [place] [address] Performed By: #### T SPN ####[facility] BLOOD BANKCLIA [id number] [address] [place] HISTORICAL AB SCR STATUS Negative Normal [facility] Comment on above: Order Comment: Speci men Type: BLOOD SPECIMENOrdering Facility: [facility] Address: [address] [place] [address] Performed By: #### T SPN ####[facility] BLOOD BANKCLIA [id number] [place] [address] [place] Rh Nom (Bld) Positive Normal [facility] Comment on above: Order Comment: Speci men Type: BLOOD SPECIMENOrdering Facility: [facility] Address: [address] [place] [address] Performed By: #### T SPN ####[facility] BLOOD BANKCLIA [id number] [place] [address] [place] TYPE AND SCREEN EXPIRATION 03/18/2023 23:59 Normal [facility] Comment on above: Order Comment: Speci men Type: BLOOD SPECIMENOrdering Facility: [facility] Address: [address] [id number] Performed By: #### T SPN ####[facility] BLOOD BANKCLIA [id number] [address] [place] [id number] [address] [place] US PREG TRANSABD <14 WKS LTD on 03-15-2023 US PREG TRANSABD <14 WKS LTD * * *Final Report* * * DATE OF EXAM: Mar 15 2023 2:48PM [facility] [place] PREG TRANSABD <14 WKS LTD / PROCEDURE REASON: Abdominal pain, acute, nonlocalized * * * * Physician Interpretation * * * * EXAMINATION: FIRST TRIMESTER TRANSVAGINAL AND TRANSABDOMINAL PELVIC ULTRASOUND CLINICAL HISTORY: patient with vaginal bleeding. TECHNIQUE: Sonography of the pelvis was performed by transabdominal and transvaginal techniques. Images were obtained and stored in a permanent archive. MQ: USOB1_1 COMPARISON: None RESULT: Uterus: - Orientation: Anteverted - Size: 11.5 x 7.0 x 8.0 cm - Myometrium: homogeneous echogenicity - Cervix: closed with no funneling Gestation: - Intrauterine gestational sac: Single present - Mean Sac Diameter: 3.0 cm, corresponding gestational age 8 week 1 days - Yolk sac: Present - Embryo: Single present - [place] rump length: 1.83 cm, corresponding gestational age 8 weeks, 2 days -Gestational heart rate: present 161-166 bpm -Subgestational hematoma: Absent Right ovary: Not seen. Left ovary: - Size: 2.4 x 1.3 x 2.7 cm - Normal sonographic appearance with physiologic follicles. Pelvis free fluid: None. IMPRESSION: Single, live intrauterine gestation. Estimated Gestational Age: 8 weeks, 2 days by crown rump length. Management Supervisor: PSCB Transcribe Date/Time: Mar 15 2023 3:17P Dictated by : MARY ANN ESQUIVEL MD This examination was interpreted and the report reviewed and electronically signed by: MARY ANN ESQUIVEL MD on Mar 15 2023 3:24PM EST [id number] Normal [facility] US PREG TRANSVAG <14 WEEKSon 03-15-2023 US PREG TRANSVAG <14 WEEKS * * *Final Report* * * DATE OF EXAM: Mar 15 2023 2:48PM U 1034 - US PREG TRANSVAG <14 WEEKS / PROCEDURE REASON: Pelvic pain, positive beta-HCG, health services rn etiology suspected * * * * Physician Interpretation * * * * EXAMINATION: FIRST TRIMESTER TRANSVAGINAL AND TRANSABDOMINAL PELVIC ULTRASOUND CLINICAL HISTORY: patient with vaginal bleeding. TECHNIQUE: Sonography of the pelvis was performed by transabdominal and transvaginal techniques. Images were obtained and stored in a permanent archive. MQ: USOB1_1 COMPARISON: None RESULT: Uterus: - Orientation: Anteverted - Size: 11.5 x 7.0 x 8.0 cm - Myometrium: homogeneous echogenicity - Cervix: closed with no funneling Gestation: - Intrauterine gestational sac: Single present - Mean Sac Diameter: 3.0 cm, corresponding gestational age 8 week 1 days - Yolk sac: Present - Embryo: Single present - [place] rump length: 1.83 cm, corresponding gestational age 8 weeks, 2 days -Gestational heart rate: present 161-166 bpm -Subgestational hematoma: Absent Right ovary: Not seen. Left ovary: - Size: 2.4 x 1.3 x 2.7 cm - Normal sonographic appearance with physiologic follicles. Pelvis free fluid: None. IMPRESSION: Single, live intrauterine gestation. Estimated Gestational Age: 8 weeks, 2 days by crown rump length. Management Supervisor: JAYMIE Transcribe Date/Time: Mar 15 2023 3:17P Dictated by : MARY ANN ESQUIVEL MD This examination was interpreted and the report reviewed and electronically signed by: MARY ANN ESQUIVEL MD on Mar 15 2023 3:24PM EST [id number] Normal [facility] CASE MGT INIT Mitch 2022 CASE MGT INIT MERLENE HNO ID: [id number] Author: Adwoa Hodge RN Service: ? Author Type: Registered Nurse Type: Care Mgt Initial Assessment Filed: 03/14/2023 1:05 PM Note Text: CARE MANAGEMENT: ASSESSMENT AND DISCHARGE PLAN SERVICE DATE: March 14, 2023 SERVICE TIME: 12:53 PM PCP: Racquel Simpson Primary Contact: Extended Emergency Contact Information Primary Emergency Contact: Karissa Ugalde Mobile Relation: Mother Admission Status: Inpatient Insurance Provider: [employer] Needs Prior to Discharge: To Be Determined PCP: Racquel Simpson [phone] f. [phone] Post-Acute Discharge Plan: CM met with pt at bedside to complete this assessment.. CM introduced herself and explained CM role. Qian Clements is a 32 year old female Patient presents with: Fever Nausea AND Vomiting Back Pain Pt has a past medical history of ADHD (attention deficit hyperactivity disorder), Hemangioma, Microcytic anemia, Miscarriage, depression, Still's disease (HCC), and Vitamin D insufficiency. Pt reports that she quit smoking about 8 years ago. Her smoking use included cigarettes. She has a 2.00 pack-year smoking history. She has never used smokeless tobacco. She reports that she does not drink alcohol and does not use drugs. Primary care paged MACHINE TACK PULLER regarding recommended imaging for nephrolithiasis in the setting of 1st trimester of . This patient has been screened for Care Management Transitional Planning Services. At this time, it does not appear this patient will require transition planning services. Should this change, and the patient require transition planning services during this admission, please call [phone]. NO SKILLED NEEDS SIGNATURE: Adwoa Hodge RN PATIENT NAME: Qian Clements DATE: March 14, 2023 TIME: 12:53 PM CONTACT #: [phone] Normal [facility] CBC panel Auto (Bld)on 03-14 Erythrocyte distribution width (RBC) [Ratio] 13.6 % Normal 11.5-15.0 [facility] Comment on above: Order Comment: Tee francisco Type: BLOOD SPECIMENOrdering Facility: [facility] Address: [address] [place], [place] [address] Performed By: #### 5 8410-2 ####[facility] LABCLIA [id number] [place] [address] [place] Hematocrit (Bld) [Volume fraction] 31.0 % Low 36.0-46.0 [facility] Comment on above: Order Comment: Tee francisco Type: BLOOD SPECIMENOrdering Facility: [facility] Address: [address] [address] Performed By: #### 5 8410-2 ####[facility] LABIA [id number] [place] [address] [place] Hemoglobin (Bld) [Mass/Vol] 10.4 g/dL Low 11.5-15.5 [facility] Comment on above: Order Comment: Speci men Type: BLOOD SPECIMENOrdering Facility: [facility] Address: [address] [place] [address] Performed By: #### 5 8410-2 ####[facility] LABIA [id number] [place] [address] [place] MCH (RBC) [Entitic mass] 26.5 pg Normal 26.0-34.0 [facility] Comment on above: Order Comment: Speci men Type: BLOOD SPECIMENOrdering Facility: [facility] Address: [address] [place] [address] Performed By: #### 5 8410-2 ####[facility] LABIA [id number] [place] [address] [place] MCHC (RBC) [Mass/Vol] 33.5 g/dL Normal 30.5-36.0 [facility] Comment on above: Order Comment: Speci men Type: BLOOD SPECIMENOrdering Facility: [facility] Address: [address] [place], [place] [id number] Performed By: #### 5 8410-2 ####[facility] LABIA [id number] [place] [address] [place] MCV (RBC) [Entitic vol] 78.9 fL Low 80.0-100.0 [facility] Comment on above: Order Comment: Speci men Type: BLOOD SPECIMENOrdering Facility: [facility] Address: [address] [place] [address] Performed By: #### 5 8410-2 ####[facility] [id number] [place] [address] [place] Nucleated RBC (Bld) [#/Vol] 10*3/uL Normal <0.01 [facility] Comment on above: Order Comment: Speci men Type: BLOOD SPECIMENOrdering Facility: [facility] Address: [address] [place] [address] Performed By: #### 5 8410-2 ####[facility] [id number] [place] [address] [place] Platelet mean volume (Bld) [Entitic vol] 9.0 fL Normal 9.0-12.7 [facility] Comment on above: Order Comment: Speci men Type: BLOOD SPECIMENOrdering Facility: [facility] Address: [address] [place] [address] Performed By: #### 5 8410-2 ####[facility] [id number] [place] [address] [place] Platelets (Bld) [#/Vol] 415 10*3/uL High 150-400 [facility] Comment on above: Order Comment: Speci men Type: BLOOD SPECIMENOrdering Facility: [facility] Address: [address] [place], [place] [id number] Performed By: #### 5 8410-2 ####[facility] [id number] [place] [address] [place] RBC (Bld) [#/Vol] 3.93 10*6/uL Normal 3.90-5.20 [facility] Comment on above: Order Comment: Speci men Type: BLOOD SPECIMENOrdering Facility: [facility] Address: [address] [place], [place] [id number] Performed By: #### 5 8410-2 ####[facility] [id number] [place] [address] [place] WBC (Bld) [#/Vol] 11.23 10*3/uL High 3.70-11.00 [facility] Comment on above: Order Comment: Speci men Type: BLOOD SPECIMENOrdering Facility: [facility] Address: [address] [place] [address] Performed By: #### 5 8410-2 ####[facility] LABCLIA [id number] [place] [address] [place] Magnesium SerPl-ncon 03-14 Magnesium [Mass/Vol] 1.9 mg/dL Normal 1.7-2.3 [facility] Comment on above: Order Comment: Speci men Type: BLOOD SPECIMENOrdering Facility: [facility] Address: [address] [place] [address] Performed By: #### 1 9123-9, 07127-0 ####[facility] LABCLIA [id number] [place] [address] [place] Renal function 2000 panelon 03-14-2023 Albumin [Mass/Vol] 3.6 g/dL Low 3.9-4.9 [facility] Comment on above: Order Comment: Speci men Type: BLOOD SPECIMENOrdering Facility: [facility] Address: [address] [place] [address] Performed By: #### 1 9123-9, 89241-3 ####[facility] LABCLIA [id number] [place] [address] [place] Anion gap [Moles/Vol] 13 mmol/L Normal 9-18 [facility] Comment on above: Order Comment: Speci men Type: BLOOD SPECIMENOrdering Facility: [facility] Address: [address] [place], [place] [id number] Performed By: #### 1 9123-9, 39401-9 ####[facility] LABCLIA [id number] [place] [address] [place] Calcium [Mass/Vol] 9.2 mg/dL Normal 8.5-10.2 [facility] Comment on above: Order Comment: Speci men Type: BLOOD SPECIMENOrdering Facility: [facility] Address: [address] [place], [place] [id number] Performed By: #### 1 9123-9, 03096-2 ####[facility] LABCLIA [id number] [place] [address] [place] Chloride [Moles/Vol] 102 mmol/L Normal 97-105 [facility] Comment on above: Order Comment: Speci men Type: BLOOD SPECIMENOrdering Facility: [facility] Address: [address] [place] [address] Performed By: #### 1 9123-9, ####[facility] LABCLIA [id number] [place] [address] [place] CO2 [Moles/Vol] 19 mmol/L Low 22-30 [facility] Comment on above: Order Comment: Speci men Type: BLOOD SPECIMENOrdering Facility: [facility] Address: [address] [place] [address] Performed By: #### 1 9123-9, ####[facility] LABCLIA [id number] [address] [place] Creatinine [Mass/Vol] 0.75 mg/dL Normal 0.58-0.96 [facility] Comment on above: Order Comment: Speci men Type: BLOOD SPECIMENOrdering Facility: [facility] Address: [address] [place], [place] [id number] Performed By: #### 1 9123-9, 85312-4 ####[facility] LABCLIA [id number] [address] [place] ESTIMATED GLOMERULAR FILTRATION RATE 110 mL/min/1.73m??? Normal >=60 [facility] Comment on above: Order Comment: Speci men Type: BLOOD SPECIMENOrdering Facility: [facility] Address: [address] [phone] Result Comment: Marisa mated Glomerular Filtration Rate (eGFR) is calculated using the 2020 CKD-EPI creatinine equation. This equation utilizes serum creatinine, sex, and age as parameters. The creatinine assay has traceable calibration to isotope dilution-mass spectrometry. Refer to KDIGO guidelines for clinical interpretation. In patients with unstable renal function, e.g. those with acute kidney injury, the eGFR may not accurately reflect actual GFR. Performed By: #### 1 9123-9, 51286-0 ####[facility] LABIA [id number] [place] [address] [place] Glucose [Mass/Vol] 131 mg/dL High 74-99 [facility] Comment on above: Order Comment: Tee francisco Type: BLOOD SPECIMENOrdering Facility: [facility] Address: [address] [address] Result Comment: The [place] Diabetes [employer] (ADA) provides guidance for cutoff values for fasting glucose and random glucose. The ADA defines fasting as no caloric intake for at least 8 hours. Fasting plasma glucose results between 100 to 125 mg/dL indicate increased risk for diabetes (prediabetes). Fasting plasma glucose results greater than or equal to 126 mg/dL meet the criteria for diagnosis of diabetes. In the absence of unequivocal hyperglycemia, results should be confirmed by repeat testing. In a patient with classic symptoms of hyperglycemia or hyperglycemic crisis, random plasma glucose results greater than or equal to 200 mg/dL meet the criteria for diagnosis of diabetes. Reference: Standards of Medical Care in Diabetes 2016, [place] [employer]. Diabetes Care. 2016.39(Suppl 1). Performed By: #### 1 9123-9, 36451-0 ####[facility] LABIA [id number] [place] [address] [place] Phosphate [Mass/Vol] 2.6 mg/dL Low 2.7-4.8 [facility] Comment on above: Order Comment: Specantonina men Type: BLOOD SPECIMENOrdering Facility: [facility] Address: [address] [phone] Performed By: #### 1 9123-9, 08998-3 ####[facility] LABCLIA [id number] [place] [address] [place] Potassium [Moles/Vol] 3.7 mmol/L Normal 3.7-5.1 [facility] Comment on above: Order Comment: Speci men Type: BLOOD SPECIMENOrdering Facility: [facility] Address: [address] [place] [address] Performed By: #### 1 9123-9, 39032-1 ####[facility] LABIA [id number] [place] [address] [place] Sodium [Moles/Vol] 134 mmol/L Low 136-144 [facility] Comment on above: Order Comment: Speci men Type: BLOOD SPECIMENOrdering Facility: [facility] Address: [address] [place] [address] Performed By: #### 1 9123-9, 59946-1 ####[facility] LABIA [id number] [place] [address] [place] Urea nitrogen [Mass/Vol] 7 mg/dL Normal 7-21 [facility] Comment on above: Order Comment: Speci men Type: BLOOD SPECIMENOrdering Facility: [facility] Address: [address] [place] [address] Performed By: #### 1 9123-9, 30229-0 ####[facility] LABIA [id number] [address] [id number] [place] US KIDNEY/BLADDERon 03-14-20 23 US KIDNEY/BLADDER * * *Final Report* * * DATE OF EXAM: Mar 14 2023 10:55AM [facility] [place] - KIDNEY/BLADDER / PROCEDURE REASON: Pyelonephritis, complicated * * * * Physician Interpretation * * * * EXAMINATION: RENAL ULTRASOUND HISTORY: Pyelonephritis. TECHNIQUE: Sonography of the kidneys and urinary bladder was performed. Images were obtained and stored in a permanent archive. M: UR_1 COMPARISON: MRI 12/16/2015. RESULT: Right Kidney: -Renal length: 11.9 cm -Parenchyma: Normal parenchymal echogenicity. Normal parenchymal thickness. -Collecting system: No hydronephrosis. -Calculus: No echogenic, shadowing calculus. -Lesion or perinephric collection: None. Left Kidney: -Renal length: 12.2 cm -Parenchyma: Normal parenchymal echogenicity. Normal parenchymal thickness. -Collecting system: No hydronephrosis. -Calculus: No echogenic, shadowing calculus. -Lesion or perinephric collection: None. Bladder: Partially decompressed and poorly seen. Bilateral ureteral jets present. IMPRESSION: NO HYDRONEPHROSIS OR SHADOWING RENAL CALCULUS. Management Supervisor: PSCB Transcribe Date/Time: Mar 14 2023 12:32P Dictated by : ARTURO ALVARADO DO This examination was interpreted and the report reviewed and electronically signed by: ARTURO ALVARADO DO on Mar 14 2023 12:34PM EST [id number] Normal [facility] BETA HCG, QUANTITATIVE FOR E Don 03-13-2023 HCG.beta subunit Qn m[IU]/mL High <5.0 [facility] Comment on above: Order Comment: Speci men Type: BLOOD SPECIMENOrdering Facility: [facility] Address: [address] [place] [id number] Result Comment: SO TITATIVE HCG NORMAL RANGES Weeks of Gestation (Weeks Since LMP) 3 Weeks (5.8-71.2 mIU/mL) 4 Weeks (9.5-750 mIU/mL) 5 Weeks (217-7138 mIU/mL) 6 Weeks (158-86292 mIU/mL) 7 Weeks (3697-841665 mIU/mL) 8 Weeks (92534-307179 mIU/mL) 9 Weeks (26682-998174 mIU/mL) 10 Weeks (70710-444663 mIU/mL) 12 Weeks (42042-335179 mIU/mL) Referenced to 4th IS of [facility] Performed By: #### 2 4323-8, 3040-3, 2276-4, 1988-5, HCGED ####[facility] LABCLIA [id number] [place] [address] [place] C-Reactive Proteinon 023 CRP [Mass/Vol] 94.7 mg/L High 0.0-5.0 [facility] Comment on above: Performed By: #### L IP, SED, CP, CRP, CDP #### [facility] [address] [place] [address] Theatrical Trouper: Aaron Arteaga MD #### [place] #### [facility] [address] [place], [place] [address] Theatrical Trouper: Gino Wing MD CBC W Auto Differential pane l (Bld)on 03-13-2023 Basophils (Bld) [#/Vol] 0.03 10*3/uL Normal <0.11 [facility] Comment on above: Order Comment: Speci men Type: BLOOD SPECIMENOrdering Facility: [facility] Address: [address] [address] Performed By: #### 4 537-7, 57270-0 ####[facility] LABIA [id number] [place] [address] [place] Basophils/100 WBC (Bld) 0.2 % Normal [facility] Comment on above: Order Comment: Speci men Type: BLOOD SPECIMENOrdering Facility: [facility] Address: [address] [address] Performed By: #### 4 537-7, 33742-3 ####[facility] LABCLIA [id number] [place] [address] [place] Differential cell count method Nom (Bld) Auto Normal [facility] Comment on above: Order Comment: Speci men Type: BLOOD SPECIMENOrdering Facility: [facility] Address: [address] [address] Performed By: #### 4 537-7, 51893-4 ####[facility] LABCLIA [id number] [place] [address] [place] Eosinophils (Bld) [#/Vol] 10*3/uL Normal <0.46 [facility] Comment on above: Order Comment: Speci men Type: BLOOD SPECIMENOrdering Facility: [facility] Address: [address] [place] [address] Performed By: #### 4 537-7, 15728-4 ####[facility] LABCLIA [id number] [place] [address] [place] Eosinophils/100 WBC (Bld) 0.1 % Normal [facility] Comment on above: Order Comment: Speci men Type: BLOOD SPECIMENOrdering Facility: [facility] Address: [address] [place] [address] Performed By: #### 4 537-7, 43382-7 ####[facility] LABCLIA [id number] [place] [address] [place] Erythrocyte distribution width (RBC) [Ratio] 13.5 % Normal 11.5-15.0 [facility] Comment on above: Order Comment: Speci men Type: BLOOD SPECIMENOrdering Facility: [facility] Address: [address] [place], [place] [id number] Performed By: #### 4 537-7, 03950-8 ####[facility] LABIA [id number] [place] [address] [place] Hematocrit (Bld) [Volume fraction] 32.4 % Low 36.0-46.0 [facility] Comment on above: Order Comment: Speci men Type: BLOOD SPECIMENOrdering Facility: [facility] Address: [address] [place], [place] [id number] Performed By: #### 4 537-7, 92773-6 ####[facility] LABCLIA [id number] [place] [address] [place] Hemoglobin (Bld) [Mass/Vol] 10.5 g/dL Low 11.5-15.5 [facility] Comment on above: Order Comment: Speci men Type: BLOOD SPECIMENOrdering Facility: [facility] Address: [address] [place] [address] Performed By: #### 4 537-7, 72404-9 ####[facility] LABCLIA [id number] [place] [address] [place] Immature granulocytes (Bld) [#/Vol] 0.11 10*3/uL High <0.10 [facility] Comment on above: Order Comment: Speci men Type: BLOOD SPECIMENOrdering Facility: [facility] Address: [address] [place] [address] Performed By: #### 4 537-7, 43315-3 ####[facility] LABCLIA [id number] [place] [address] [place] Immature granulocytes/100 WBC (Bld) 0.8 % Normal [facility] Comment on above: Order Comment: Speci men Type: BLOOD SPECIMENOrdering Facility: [facility] Address: [address] [place] [address] Performed By: #### 4 537-7, 11120-2 ####[facility] LABCLIA [id number] [place] [address] [place] Lymphocytes (Bld) [#/Vol] 1.86 10*3/uL Normal 1.00-4.00 [facility] Comment on above: Order Comment: Speci men Type: BLOOD SPECIMENOrdering Facility: [facility] Address: [address] [place], [place] [id number] Performed By: #### 4 537-7, 42312-6 ####[facility] LABCLIA [id number] [place] [address] [place] Lymphocytes/100 WBC (Bld) 13.0 % Normal [facility] Comment on above: Order Comment: Speci men Type: BLOOD SPECIMENOrdering Facility: [facility] Address: [address] Performed By: #### 4 537-7, 05860-9 ####[facility] [id number] [address] [place] [facility] MCH (RBC) [Entitic mass] 26.6 pg Normal 26.0-34.0 [facility] Comment on above: Order Comment: Speci men Type: BLOOD SPECIMENOrdering Facility: [facility] Address: [address] [place], [place] [id number] Performed By: #### 4 537-7, 93209-3 ####[facility] [id number] [address] [place] [facility] MCHC (RBC) [Mass/Vol] 32.4 g/dL Normal 30.5-36.0 [facility] Comment on above: Order Comment: Speci men Type: BLOOD SPECIMENOrdering Facility: [facility] Address: [address] [place], [place] [id number] Performed By: #### 4 537-7, 37006-2 ####[facility] [id number] [place] [address] [place] MCV (RBC) [Entitic vol] 82.0 fL Normal 80.0-100.0 [facility] Comment on above: Order Comment: Speci men Type: BLOOD SPECIMENOrdering Facility: [facility] Address: [address] [place], [place] [id number] Performed By: #### 4 537-7, 45369-7 ####[facility] [id number] [place] [address] [place] Monocytes (Bld) [#/Vol] 1.09 10*3/uL High <0.87 [facility] Comment on above: Order Comment: Speci men Type: BLOOD SPECIMENOrdering Facility: [facility] Address: [address] [place], [place] [id number] Performed By: #### 4 537-7, 67807-4 ####[facility] LABCLIA [id number] [facility] [place] [address] [place] Monocytes/100 WBC (Bld) 7.6 % Normal [facility] Comment on above: Order Comment: Speci men Type: BLOOD SPECIMENOrdering Facility: [facility] Address: [address] [place], [place] [id number] Performed By: #### 4 537-7, 51989-7 ####[facility] LABCLIA [id number] [facility] [place] [address] [place] Neutrophils (Bld) [#/Vol] 11.15 10*3/uL High 1.45-7.50 [facility] Comment on above: Order Comment: Speci men Type: BLOOD SPECIMENOrdering Facility: [facility] Address: [address] Performed By: #### 4 537-7, 63032-1 ####[facility] LABCLIA [id number] [place] [address] [place] Neutrophils/100 WBC (Bld) 78.3 % Normal [facility] Comment on above: Order Comment: Speci men Type: BLOOD SPECIMENOrdering Facility: [facility] Address: [address] [place] [address] Performed By: #### 4 537-7, 67087-7 ####[facility] LABCLIA [id number] [place] [address] [place] Nucleated RBC (Bld) [#/Vol] 10*3/uL Normal <0.01 [facility] Comment on above: Order Comment: Speci men Type: BLOOD SPECIMENOrdering Facility: [facility] Address: [address] [place] [address] Performed By: #### 4 537-7, 25688-3 ####[facility] LABCLIA [id number] [place] [address] [place] Nucleated RBC/100 WBC (Bld) [Ratio] 0.0 /100 WBC Normal [facility] Comment on above: Order Comment: Speci men Type: BLOOD SPECIMENOrdering Facility: [facility] Address: [address] [place] [address] Performed By: #### 4 537-7, 91423-9 ####[facility] LABCLIA [id number] [place] [address] [place] Platelet mean volume (Bld) [Entitic vol] 8.9 fL Low 9.0-12.7 [facility] Comment on above: Order Comment: Speci men Type: BLOOD SPECIMENOrdering Facility: [facility] Address: [address] [place] [address] Performed By: #### 4 537-7, 80214-2 ####[facility] LABCLIA [id number] [place] [address] [place] Platelets (Bld) [#/Vol] 378 10*3/uL Normal 150-400 [facility] Comment on above: Order Comment: Speci men Type: BLOOD SPECIMENOrdering Facility: [facility] Address: [address] [place], [place] [id number] Performed By: #### 4 537-7, 05145-8 ####[facility] LABIA [id number] [place] [address] [place] RBC (Bld) [#/Vol] 3.95 10*6/uL Normal 3.90-5.20 [facility] Comment on above: Order Comment: Speci men Type: BLOOD SPECIMENOrdering Facility: [facility] Address: [address] [place], [place] [id number] Performed By: #### 4 537-7, 45930-4 ####[facility] LABCLIA [id number] [place] [address] [place] WBC (Bld) [#/Vol] 14.26 10*3/uL High 3.70-11.00 [facility] Comment on above: Order Comment: Speci men Type: BLOOD SPECIMENOrdering Facility: [facility] Address: [address] [place] [address] Performed By: #### 4 537-7, 43277-7 ####[facility] LABCLIA [id number] [facility] [id number] [place], [place] [id number] [facility] CONSULT PROGon 03-13-2023 CONSULT PROG HNO ID: [id number] Author: Robyn Bolton RPh Service: Pharmacy Author Type: Pharmacist Type: Consult Progress Note Filed: 03/13/2023 5:00 PM Note Text: PHARMACY VANCOMYCIN DOSING NOTE Patient Name: Qian Clements Admission Date: 03/13/2023 Date of Consult: 03/13/2023 Time of Consult: 5:00 PM Indication: Source unknown; empiric Goal Range: 15-25 mcg/mL RECOMMENDATIONS/PLAN: Pharmacy consulted for vancomycin dosing for Qian Clements, a 32 year old female. Vancomycin therapy has been discontinued. Vancomycin level(s) have been discontinued: Not Applicable. Pharmacy vancomycin dosing service will sign off. Thank you for allowing us to participate in this patient's care. Please contact pharmacy if there are questions. Robyn Bolton RPh Normal [facility] CONSULT PROG HNO ID: [id number] Author: Ev Pryor RPh Service: Pharmacy Author Type: Pharmacist Type: Consult Progress Note Filed: 03/13/2023 2:55 PM Note Text: PHARMACY VANCOMYCIN DOSING NOTE Patient Name: Qian Clements Admission Date: 03/13/2023 Date of Consult: 03/13/2023 Time of Consult: 2:55 PM Indication: Source unknown; empiric Goal Range: 15-25 mcg/mL RECOMMENDATIONS/PLAN: Pharmacy consulted for vancomycin dosing for Qian Clements, a 32 year old female. 1. Patient is currently ordered Vancomycin 1.5 g IV q12h. Today is day 1 of therapy. 2. No vancomycin level has been drawn for this dosing regimen. 3. The present dose of vancomycin is the recommended dosage for this patient at this time. Continue therapy as prescribed. 4. The next vancomycin level will be ordered for prior to fifth dose due to unless clinically indicated sooner. (Pharmacy will order) We will follow patient renal function, vancomycin levels and doses with you during the course of therapy. Additional recommendations will appear in follow up notes. If you have any questions, please contact Ev Pryor RPh at [phone]. Age: [age] year old Allergies: ALLERGIES Allergen Reactions Ciprofloxacin Vomiting Codeine Vomiting Convulsions per mother Phenergan [Prometha* Vomiting Convulsions per mother Last 3 Encounter Wt Readings: Date: Wt: 03/13/2023 108.9 kg (240 lb) 10/14/2017 118.4 kg (261 lb) 10/20/2016 104.1 kg (229 lb 6.4 oz) Last 1 Encounter Ht Readings: Date: Ht: 03/13/2023 162.6 cm (5' 4 ) CrCl: 128.8 mL/min Temp (24hrs), Av.6 ?C (97.9 ?F), Min:36.6 ?C (97.9 ?F), Max:36.7 ?C (98 ?F) - Current Temp: 36.7 ?C (98 ?F) Labs BUN (mg/dL) Date Value 03/13/2023 8 10/14/2017 12 10/20/2016 13 Creatinine (mg/dL) Date Value 03/13/2023 0.77 10/14/2017 0.69 10/20/2016 0.71 WBC (k/uL) Date Value 03/13/2023 14.26 (H) 10/14/2017 10.01 10/20/2016 9.34 Vancomycin Levels: No results found for: PINGROSELINE Ev Pryor kelsie Normal [facility] CRP SerPl-mCncon 03-13-2023 CRP [Mass/Vol] 20.0 mg/dL High <0.9 [facility] Comment on above: Order Comment: Speci men Type: BLOOD SPECIMENOrdering Facility: [facility] Address: [address] [place] [address] [place] [address] Performed By: #### 2 4323-8, 3039-3, 2275-11, 1987-12, HCGED ####[facility] LABIA [id number] [place] [id number] [place] Comprehensive metabolic 2000 panelon 03-13-2023 Albumin [Mass/Vol] 3.6 g/dL Low 3.9-4.9 [facility] Comment on above: Order Comment: Speci men Type: BLOOD SPECIMENOrdering Facility: [facility] Address: [address] [place], [place] [id number] Performed By: #### 2 4323-8, 3039-3, 2275-11, 1987-12, HCGED ####[facility] LABIA [id number] [place] [address] [place] ALP [Catalytic activity/Vol] 101 U/L Normal 34-123 [facility] Comment on above: Order Comment: Speci men Type: BLOOD SPECIMENOrdering Facility: [facility] Address: [address] [place] [address] Performed By: #### 2 4323-8, 3039-3, 2275-11, 1987-12, HCGED ####[facility] [id number] [place] [address] [place] ALT [Catalytic activity/Vol] 22 U/L Normal 7-38 [facility] Comment on above: Order Comment: Speci men Type: BLOOD SPECIMENOrdering Facility: [facility] Address: [address] [place], [place] [id number] Performed By: #### 2 4323-8, 3039-3, 2275-11, 1987-12, HCGED ####[facility]FF[facility] [id number] [place] [address] [place] Anion gap [Moles/Vol] 14 mmol/L Normal 9-18 [facility] Comment on above: Order Comment: Speci men Type: BLOOD SPECIMENOrdering Facility: [facility] Address: [address] [place], [place] [id number] Performed By: #### 2 4323-8, 3040-3, 4, 1987-12, HCGED ####[facility] LABIA [id number] [place] [address] [place] AST [Catalytic activity/Vol] 16 U/L Normal 13-35 [facility] Comment on above: Order Comment: Speci men Type: BLOOD SPECIMENOrdering Facility: [facility] Address: [address] [place] [address] Performed By: #### 2 4323-8, 3040-3, 2275-11, 1987-12, HCGED ####[facility] [id number] [place] [address] [place] Bilirubin [Mass/Vol] 0.2 mg/dL Normal 0.2-1.3 [facility] Comment on above: Order Comment: Speci men Type: BLOOD SPECIMENOrdering Facility: [facility] Address: [address] [place] [address] Performed By: #### 2 4323-8, 3040-3, 2275-11, 1987-12, HCGED ####[facility] [id number] [place] [address] [place] Calcium [Mass/Vol] 8.8 mg/dL Normal 8.5-10.2 [facility] Comment on above: Order Comment: Speci men Type: BLOOD SPECIMENOrdering Facility: [facility] Address: [address] [place] [address] Performed By: #### 2 4323-8, 3040-3, 2275-11, 1987-12, HCGED ####[facility] LABIA [id number] [place] [address] [place] Chloride [Moles/Vol] 103 mmol/L Normal 97-105 [facility] Comment on above: Order Comment: Speci men Type: BLOOD SPECIMENOrdering Facility: [facility] Address: [address] [place], [place] [address] Performed By: #### 2 4323-8, 0-3, 2275-11, 1987-12, HCGED ####[facility] LABCLIA [id number] [place] [address] [place] CO2 [Moles/Vol] 19 mmol/L Low 22-30 [facility] Comment on above: Order Comment: Speci men Type: BLOOD SPECIMENOrdering Facility: [facility] Address: [address] [place] [address] Performed By: #### 2 4323-8, 3039-3, 2275-11, 1987-12, HCGED ####[facility] LABCLIA [id number] [place] [address] [place] Creatinine [Mass/Vol] 0.77 mg/dL Normal 0.58-0.96 [facility] Comment on above: Order Comment: Speci men Type: BLOOD SPECIMENOrdering Facility: [facility] Address: [address] [place] [address] Performed By: #### 2 4323-8, 3, 2275-11, 1987-12, HCGED ####[facility] LABIA [id number] [place] [address] [place] ESTIMATED GLOMERULAR FILTRATION RATE 107 mL/min/1.73m??? Normal >=60 [facility] Comment on above: Order Comment: Speci men Type: BLOOD SPECIMENOrdering Facility: [facility] Address: [address] [place] [address] Result Comment: Marisa mated Glomerular Filtration Rate (eGFR) is calculated using the 2020 CKD-EPI creatinine equation. This equation utilizes serum creatinine, sex, and age as parameters. The creatinine assay has traceable calibration to isotope dilution-mass spectrometry. Refer to KDIGO guidelines for clinical interpretation. In patients with unstable renal function, e.g. those with acute kidney injury, the eGFR may not accurately reflect actual GFR. Performed By: #### 2 4323-8, 3, 2275-11, 1987-12, HCGED ####[facility] LABCLIA [id number] [place] [id number] [place] Glucose [Mass/Vol] 126 mg/dL High 74-99 [facility] Comment on above: Order Comment: Speci men Type: BLOOD SPECIMENOrdering Facility: [facility] Address: [address] [place], [place] [address] Result Comment: The [place] Diabetes Association (ADA) provides guidance for cutoff values for fasting glucose and random glucose. The ADA defines fasting as no caloric intake for at least 8 hours. Fasting plasma glucose results between 100 to 125 mg/dL indicate increased risk for diabetes (prediabetes). Fasting plasma glucose results greater than or equal to 126 mg/dL meet the criteria for diagnosis of diabetes. In the absence of unequivocal hyperglycemia, results should be confirmed by repeat testing. In a patient with classic symptoms of hyperglycemia or hyperglycemic crisis, random plasma glucose results greater than or equal to 200 mg/dL meet the criteria for diagnosis of diabetes. Reference: Standards of Medical Care in Diabetes 2016, [place] [employer] Association. Diabetes Care. 2016.39(Suppl 1). Performed By: #### 2 4323-8, 3039-10, 2275-11, 1987-12, HCGED ####[facility] LABCLIA [id number] [place] [address] [place] Potassium [Moles/Vol] 3.3 mmol/L Low 3.7-5.1 [facility] Comment on above: Order Comment: Speci men Type: BLOOD SPECIMENOrdering Facility: [facility] Address: [address] [place] [address] Performed By: #### 2 4323-8, 3, 2275-11, 1987-12, HCGED ####[facility] LABCLIA [id number] [address] [address] [place] Protein [Mass/Vol] 6.5 g/dL Normal 6.3-8.0 [facility] Comment on above: Order Comment: Speci men Type: BLOOD SPECIMENOrdering Facility: [facility] Address: [address] [place] [address] Performed By: #### 2 4323-8, 3039-3, 2275-11, 1987-12, HCGED ####[facility] LABIA [id number] [address] [address] [place] Sodium [Moles/Vol] 136 mmol/L Normal 136-144 [facility] Comment on above: Order Comment: Speci men Type: BLOOD SPECIMENOrdering Facility: [facility] Address: [place] [address] Performed By: #### 2 4323-8, 3039-3, 2275-11, 1987-12, HCGED ####[facility] LABIA [id number] [place] [id number] [place] Urea nitrogen [Mass/Vol] 8 mg/dL Normal 7-21 [facility] Comment on above: Order Comment: Speci men Type: BLOOD SPECIMENOrdering Facility: [facility] Address: [address] [place] [address] Performed By: #### 2 4323-8, 3, 2275-11, 1987-12, HCGED ####[facility] [id number] [address] [address] [place] ED NOTEon 03-13-2023 ED NOTE HNO ID: [id number] Author: Kj Carter, CATHI Service: Emergency Medicine Author Type: Registered Nurse Type: ED Notes Filed: 03/13/2023 11:48 AM Note Text: Pt was to be a tranfers from outside hospital for admission, left AMA because felt that it was taking to long for transfer. Elevated WBC, back pain, nausea and vomiting, no diarrhea, no SOB 8 weeks . Normal [facility] ED PROV NOTEon 03-13-2023 ED PROV NOTE HNO ID: [id number] Author: Kelli Musa MD Service: Emergency Medicine Author Type: Physician Type: ED Provider Notes Filed: 03/13/2023 8:05 PM Note Text: ED Provider Note Patient Name: Qian Clements : 1990 SERVICE DATE: 03/13/23 History Patient presents with: Fever Nausea AND Vomiting Back Pain Ms. Clements is a 32 year old female with PMH notable for Still's disease and is currently 8 weeks who is presenting with worsening back pain and fevers. Of note, she is not currently on therapy for Stills and reports this has been well-controlled for the last few years. She notes progressive back pain for the past 2 weeks. She states that she had an outside renal ultrasound which did not demonstrate nephrolithiasis. However, given he progression of symptoms and new onset fevers, she opted to report to the [place] ED. While there, she was noted to be febrile and have a leukocytosis to 20,000 and she was accepted for admission to . While awaiting transfer, she opted to leave A and report to our ED for admission. On arrival, she is tachycardic, but normotensive on RA and appears uncomfortable but not in acute distress. She confirmed the above story. They are concerned about a Stills flare given there is some similarity with her previous episodes, mainly fevers, leukocytosis, and diffuse body aches. She reports ongoing nausea/vomiting and is uncertain if this is 2/2 . She otherwise denies any localizing symptoms including sore throat, cough, diarrhea, dysuria, or rash. PAST MEDICAL HISTORY Diagnosis Date ADHD (attention deficit hyperactivity disorder) Hemangioma Microcytic anemia Miscarriage depression Still's disease (HCC) Vitamin D insufficiency PAST SURGICAL HISTORY Procedure Laterality Date MIDLINE INSERTION/CONSULT 11/16/2013 FAMILY HISTORY Problem Relation Age of Onset other (dermatomyositis [Other]) Unknown other (sarcoid [Other]) Unknown Social History Tobacco Use Smoking status: Former Packs/day: 0.50 Years: 4.00 Total pack years: 2.00 Types: Cigarettes Quit date: 07/02/2014 Years since quittin.7 Smokeless tobacco: Never Substance and Sexual Activity Alcohol use: No Drug use: No Sexual activity: Not on file ALLERGIES Allergen Reactions Ciprofloxacin Vomiting Codeine Vomiting Convulsions per mother Phenergan [Prometha* Vomiting Convulsions per mother Review of Systems Constitutional: Positive for chills and fever. HENT: Negative for sore throat and trouble swallowing. Eyes: Negative for pain and redness. Respiratory: Negative for cough and shortness of breath. Cardiovascular: Negative for chest pain and palpitations. Gastrointestinal: Positive for constipation, nausea and vomiting. Negative for abdominal pain and diarrhea. Genitourinary: Negative for dysuria and hematuria. Musculoskeletal: Positive for arthralgias and back pain. Skin: Negative for rash and wound. Neurological: Negative for dizziness and syncope. Psychiatric/Behavioral : Negative for confusion and hallucinations. Physical Exam Vitals [03/13/23 1142] BP Pulse Temp Temp src Resp SpO2 Weight Height 125/77 (!) 113 36.6 ?C (97.9 ?F) Oral 18 97 % 108.9 kg (240 lb) 1.626 m (5' 4 ) Physical Exam Vitals reviewed. Constitutional: General: She is not in acute distress. Appearance: Normal appearance. HENT: Head: Normocephalic and atraumatic. Eyes: General: No scleral icterus. Extraocular Movements: Extraocular movements intact. Cardiovascular: Rate and Rhythm: Regular rhythm. Tachycardia present. Pulses: Normal pulses. Heart sounds: Normal heart sounds. No murmur heard. No friction rub. No gallop. Pulmonary: Effort: Pulmonary effort is normal. Breath sounds: Normal breath sounds. No wheezing, rhonchi or rales. Abdominal: General: Bowel sounds are normal. Palpations: Abdomen is soft. Tenderness: There is no abdominal tenderness. There is no right CVA tenderness, left CVA tenderness, guarding or rebound. Musculoskeletal: General: Normal range of motion. Right lower leg: No edema. Left lower leg: No edema. Comments: Bilateral thoracic back tenderness, no rash noted. Skin: General: Skin is warm and dry. Findings: No rash. Neurological: Mental Status: She is alert and oriented to person, place, and time. Mental status is at baseline. Motor: No weakness. Psychiatric: Mood and Affect: Mood normal. Behavior: Behavior normal. Diagnostic Testing ED Labs Ordered and Reviewed BETA HCG, QUANTITATIVE FOR ED - Abnormal; Notable for the following components: Result Value Ref Range Beta HCG, Quantitative For ED Use >10,000.0 (*) <5.0 mIU/mL All other components within normal limits URINALYSIS WITH MICROSCOPIC, REFLEX CULTURE - Abnormal; Notable for the following components: Specific [place], Ur 1.032 (*) 1.005 - 1.030 Protein, Urine 1+ (*) Trace, (more content not included)... Normal [facility] ESR Westergren method (Bld) [Velocity]on 03-13-2023 ESR (Bld) [Velocity] 65 mm/h High 0-20 [facility] Comment on above: Order Comment: Speci men Type: BLOOD SPECIMENOrdering Facility: [facility] Address: [address] [place] [address] Performed By: #### 4 537-7, 79582-1 ####[facility] LABCLIA [id number] [address] Ferritinon 03-13-2023 Ferritin [Mass/Vol] 48 ng/mL Normal 13-150 [facility] Comment on above: Performed By: #### L IP, SED, CP, CRP, CDP #### [facility] [address] [place] [address] Theatrical Trouper: Aaron Arteaga MD #### FERI #### [facility] [address] [place] [address] Theatrical Trouper: Gino Wing MD Ferritin SerPl-mCncon 2022 Ferritin [Mass/Vol] 149.0 ng/mL Normal 14.7-205.1 [facility] Comment on above: Order Comment: Speci men Type: BLOOD SPECIMENOrdering Facility: [facility] Address: [address] [place] [address] Performed By: #### 2 4323-8, 3040-3, 2276-4, 1987-, HCGED ####[facility] LABCLIA [id number] [address] [place] HISTORY PHYSICALon HISTORY PHYSICAL HNO ID: [id number] Author: Manoj Ramos MD Service: General Internal Medicine Author Type: Physician Type: HANDP Filed: 03/13/2023 8:37 PM Note Text: HISTORY AND PHYSICAL GENERAL INTERNAL MEDICINE After 5 PM on weekdays and after 3 PM on weekends cristi [facility] [phone] Admit Date: 03/13/2023 SERVICE DATE: 03/13/2023 SERVICE TIME: 3:31 PM PRIMARY CARE PHYSICIAN: Racquel Simpson HPI: Qian Clements is a 32 year old female w/ PMH Adult onset Stills Disease, Benign liver angioma s/p resection, iron deficiency anemia, asthma, appendectomy, cholecystectomy, and 4 prior pregnancies (1 ), and is currently 8 weeks who presented to the ED on 03/13/2023 for left flank pain. She reports that her left flank pain started around 3 weeks ago, when she also had an episode of hematuria. She also reports worsening muscle aches and joint pain (which she has at baseline due to her AOSD) over the last 3 weeks. She received antibiotics for possible pyelonephritis as well as an abdominal XR, which was clear at the time. The antibiotics did not help her. She reports the pain start out on the left side and is not radiating to both sides. It is the lower back area on both flanks, and has been constant 10/10 level. She has nausea and vomiting associated with the pain, but no further hematuria, dysuria, or irregular urinary frequency. She reports daily fevers up to 102 for the last few weeks and then over the last 3 days, her pain has gotten worse, and she has developed chills. She reports no complications with the and no abnormal discharge other than the episode of hematuria that occurred 3 weeks ago. She denies sore throat, cough, diarrhea, dysuria, or rash, chest pain. She is currently afebrile, and her vitals are stable, however she is in pain. ED Course: She presented to an outside ED with fevers, chills, and left flank pain, and she was transferred to [facility] ED. After drawing blood and taking urine cultures, she was started on empiric antibiotic therapy (Vanc/Zosyn). She had leukocytosis on CBC, hypokalemia on CMP, and WBCs, leukesterases, on CBC. Also elevated inflammatory markers including CRP and ESR. PAST MEDICAL HISTORY: PAST MEDICAL HISTORY Diagnosis Date ADHD (attention deficit hyperactivity disorder) Hemangioma Microcytic anemia Miscarriage depression Still's disease (HCC) Vitamin D insufficiency PAST SURGICAL HISTORY: PAST SURGICAL HISTORY Procedure Laterality Date MIDLINE INSERTION/CONSULT 11/16/2013 FAMILY HISTORY: FAMILY HISTORY Problem Relation Age of Onset other (dermatomyositis [Other]) Unknown other (sarcoid [Other]) Unknown SOCIAL HISTORY: Social History Tobacco Use Smoking status: Former Packs/day: 0.50 Years: 4.00 Total pack years: 2.00 Types: Cigarettes Quit date: 07/02/2014 Years since quittin.7 Smokeless tobacco: Never Substance Use Topics Alcohol use: No Drug use: No MEDICATIONS: Current Facility-Administered Medications Medication Dose Route Frequency NaCl 0.9% iv flush bag 20 mL INTRAVENOUS PRN piperacillin-tazobacta m iv piggyback 3.375 g in dextrose (iso-osmotic) 50 mL (ZOSYN) 3.375 g INTRAVENOUS q 6 H vancomycin 1.5 g in NaCl 0.9% 250 mL (VANCOCIN) 0.015 g/kg/dose INTRAVENOUS q 12 HR vancomycin dosing and monitoring per pharmacy OTHER As Directed CURRENT ALLERGIES: ALLERGIES Allergen Reactions Ciprofloxacin Vomiting Codeine Vomiting Convulsions per mother Phenergan [Prometha* Vomiting Convulsions per mother COMPLETE REVIEW OF SYSTEMS: Constitutional: Positive for fevers, chills. HEENT: No changes in hearing or vision, no nose bleeds or other nasal problems Resp: Negative for cough, wheezing. Positive for shortness of breath. Cardiovascular: Negative for chest pain, leg swelling or palpitations GI: Negative for abdominal discomfort, blood in stools or black stools or change in bowel habits : No dysuria, had an episode of hematuria 3 weeks ago. Endo: Negative for cold or heat intolerance, polyuria, polydipsia and goiter Heme/Lymph: Negative for prolonged bleeding, bruising easily or swollen nodes Neurologic: No history or headaches, syncope, paralysis, seizures or tremors Integumentary: Has had a rash in the past due to AOSD, no current rash. MSK: significant muscle pain and joint pain. PHYSICAL EXAM: 03/13/23 1400 03/13/23 1426 03/13/23 1430 03/13/23 1500 BP: 122/81 Pulse: (!) 115 (!) 113 (!) 114 (!) 114 Resp: 20 (!) 30 (!) 32 24 Temp: 36.7 ?C (98 ?F) TempSrc: Oral SpO2: 100% 100% 100% 99% Weight: Height: Body mass index is 41.2 kg/m?. GENERAL: Female in some distress. AANDO x3 HEENT: Normocephalic. PERRL, EOMI, conjunctiva wnl. Oral mucosa wnl, no tonsilar hypertrophy or erythema. Normal dentition. NECK: Supple, no palpable LAD. No JVD. No carotid stenosis. CARDIO: RRR, normal S1/S2 without mu (more content not included)... Normal [facility] Lipase SerPl-cCncon 03-13-20 23 Lipase [Catalytic activity/Vol] 19 U/L Normal 16-61 [facility] Comment on above: Order Comment: Speci men Type: BLOOD SPECIMENOrdering Facility: [facility] Address: [address] [place] [address] Performed By: #### 2 4323-8, 3040-3, 6-4, 1987-12, HCGED ####[facility] LABCLIA [id number] [address] OF [facility] NURSING PROGon 03-13-2023 NURSING PROG HNO ID: [id number] Author: Mini Kaplan RN Service: ? Author Type: Registered Nurse Type: Nursing Progress Note Filed: 03/13/2023 5:11 PM Note Text: Transfer Note: PATIENT NAME: Qian Clements Patient Location: [place] [address] [address] Room: [place] [address] Patient transferred into room/unit [facility] [place] [facility] in stable condition. Actions taken: Patient belongings with patient, bed low and locked, side rails up X2, and call light within reach. Normal [facility] Sedimentation Rateon 023 Sedimentation Rate 58 mm/Hr High 0-20 [facility] Comment on above: Performed By: #### L IP, SED, CP, CRP, CDP #### [facility] [address] [place] [address] Theatrical Trouper: Aaron Arteaga MD #### FERI #### [facility] [address] [place] [address] Theatrical Trouper: Gino Wing MD Urinalysis complete pnl Uron 03-13-2023 Urinalysis complete panel (U) COLOR: Yellow CLARITY: Clear GLUCOSE, URINE: Negative BILIRUBIN, URINE: Negative KETONES, URINE: Negative SPECIFIC GRAVITY, UR: 1.032 HEMOGLOBIN/BLOOD, UR: Negative PH, URINE: 6.0 PROTEIN, URINE: 1+ UROBILINOGEN: 2+ NITRITES: Negative LEUKEST: 75 Gely/uL WBC, URINE: 11-25 /HPF RBC, URINE: 3-5 /HPF SQUAMOUS EPITHELIAL CELLS: Few CULTURE, URINE: Normal urogenital j carlos: ORGANISM ID: [id number] Lactobacillus jensenii [place] count unreliable due to antimicrobial inhibition No further workup Normal [facility] Comment on above: Order Comment: Speci men Type: URINE SPECIMENOrdering Facility: [facility] Address: [address] [place] [address] Performed By: #### 2 4356-8 ####[facility] LABCLIA [id number] [place] [address] [place] XR CHEST 1V FRONTAL PORTon 0 03-13-2023 XR CHEST 1V FRONTAL PORT * * *Final Report* * * DATE OF EXAM: Mar 13 2023 1:00PM EGX [id number] - XR CHEST 1V FRONTAL PORT / PROCEDURE REASON: Shortness of breath * * * * Physician Interpretation * * * * EXAMINATION: CHEST RADIOGRAPH (PORTABLE SINGLE VIEW AP) Exam Date/Time: 03/13/2023 1:00 PM Clinical History: Shortness of breath MQ: [id number]_6 Comparison: 02/12/2016 RESULT: Lines, tubes, and devices: None. Lungs and pleura: The lungs are clear. No pleural effusion or pneumothorax. Cardiomediastinal silhouette: Stable nonenlarged cardiomediastinal silhouette. IMPRESSION: See result. Management Supervisor: JAYMIE Transcribe Date/Time: Mar 13 2023 1:50P Dictated by : YULY GAONA MD This examination was interpreted and the report reviewed and electronically signed by: YULY GAONA MD on Mar 13 2023 1:51PM EST [id number] Normal [facility] CBC with Diffon 03-12-2023 Abs. Basophil 0.00 k/uL Normal 0.0-0.2 [facility] Comment on above: Performed By: #### L IP, SED, CP, CRP, CDP #### [facility] [address] [place] [address] Theatrical Trouper: Aaron Arteaga MD #### FERI #### [place] [address] [place], [place] [id number] Theatrical Trouper: Gino Wing MD Abs.Neutrophil (Seg) 18.36 k/uL High 2.5-7.0 [facility] Comment on above: Performed By: #### L IP, SED, CP, CRP, CDP #### [facility] [address] [place] [address] ( Theatrical Trouper: Aaron Arteaga MD #### FERI #### [place] [address] [place], [place] [id number] Theatrical Trouper: Gino Wing MD Basophils/100 WBC (Bld) 0 % Normal 0-2 [facility] Comment on above: Performed By: #### L IP, SED, CP, CRP, CDP #### [facility] [address] [place] [address] Theatrical Trouper: Aaron Arteaga MD #### FERI #### [place] [id number] Theatrical Trouper: Gino Wing MD Eosinophils (Bld) [#/Vol] 0.00 10*3/uL Normal 0.0-0.4 [facility] Comment on above: Performed By: #### L IP, SED, CP, CRP, CDP #### [facility] [address] [place] [address] Theatrical Trouper: Aaron Arteaga MD #### FERI #### [address] [id number] Theatrical Trouper: Gino Wing MD Eosinophils/100 WBC (Bld) 0 % Normal 0-5 [facility] Comment on above: Performed By: #### L IP, SED, CP, CRP, CDP #### [facility] [address] [place], [place] [id number] Theatrical Trouper: Aaron Arteaga MD #### FERI #### [address] [phone] Theatrical Trouper: Gino Wing MD Lymphocytes (Bld) [#/Vol] 1.02 10*3/uL Normal 1.0-4.8 [facility] Comment on above: Performed By: #### L IP, SED, CP, CRP, CDP #### [facility] [address] [place] [phone] ( Theatrical Trouper: Aaron Arteaga MD #### FERI #### [address] [phone] Theatrical Trouper: Gino Wing MD Lymphocytes/100 WBC (Bld) 5 % Low 15-40 [facility] Comment on above: Performed By: #### L IP, SED, CP, CRP, CDP #### [facility] [address] [place], [place] [id number] Theatrical Trouper: Aaron Arteaga MD #### FERI #### [address] [phone] Theatrical Trouper: Gino Wing MD Monocytes (Bld) [#/Vol] 1.02 10*3/uL High 0.0-1.0 [facility] Comment on above: Performed By: #### L IP, SED, CP, CRP, CDP #### [facility] [address] [place] [address] Theatrical Trouper: Aaron Arteaga MD #### FERI #### [place] [address] [place], [place] [id number] Theatrical Trouper: Gino Wing MD Monocytes/100 WBC (Bld) 5 % Normal 4-8 [facility] Comment on above: Performed By: #### L IP, SED, CP, CRP, CDP #### [facility] [address] [place], [place] 1676290 Theatrical Trouper: Aaron Arteaga MD #### FERI #### [address] [id number] Theatrical Trouper: Gino Wing MD Morphology Franco (Bld) [Interp] Scanned to verify automated differential. Normal [facility] Comment on above: Performed By: #### L IP, SED, CP, CRP, CDP #### [facility] [address] [place], [place] 094[address] Theatrical Trouper: Aaron Arteaga MD #### FERI #### [address] [phone] Theatrical Trouper: Gino Wing MD Neutrophil (Seg) 90 % High 47-75 [facility] Comment on above: Performed By: #### L IP, SED, CP, CRP, CDP #### [facility] [address] [place], [place] 3[address] Theatrical Trouper: Aaron Arteaga MD #### FERI #### [address] [phone] Theatrical Trouper: Gino Wing MD Erythrocyte distribution width (RBC) [Ratio] 13.8 % Normal 12.1-15.2 [facility] Comment on above: Performed By: #### L IP, SED, CP, CRP, CDP #### [facility] [address] [place], [place] [id number] Theatrical Trouper: Aaron Arteaga MD #### FERI #### [address] [id number] Theatrical Trouper: Gino Wing MD Hematocrit (Bld) [Volume fraction] 33.8 % Low 36-46 [facility] Comment on above: Performed By: #### L IP, SED, CP, CRP, CDP #### [facility] [address] [place] [address] Theatrical Trouper: Aaron Arteaga MD #### FERI #### [address] [id number] Theatrical Trouper: Gino Wing MD Hemoglobin (Bld) [Mass/Vol] 11.3 g/dL Low 12.0-16.0 [facility] Comment on above: Performed By: #### L IP, SED, CP, CRP, CDP #### [facility] [address] [place] [address] Theatrical Trouper: Aaron Arteaga MD #### FERI #### [address] [phone] Theatrical Trouper: Gino Wing MD MCH (RBC) [Entitic mass] 27.0 pg Normal 26-34 [facility] Comment on above: Performed By: #### L IP, SED, CP, CRP, CDP #### [facility] [address] [place] [address] Theatrical Trouper: Aaron Arteaga MD #### FERI #### [address] [phone] Theatrical Trouper: Gino Wing MD MCHC (RBC) [Mass/Vol] 33.3 g/dL Normal 31-37 [facility] Comment on above: Performed By: #### L IP, SED, CP, CRP, CDP #### [facility] [address] [place] [address] Theatrical Trouper: Aaron Arteaga MD #### FERI #### [place] [address] [place] [address] Theatrical Trouper: Gino Wing MD MCV (RBC) [Entitic vol] 81.2 fL Normal 80-100 [facility] Comment on above: Performed By: #### L IP, SED, CP, CRP, CDP #### [facility] [address] [place], [place] [id number] Theatrical Trouper: Aaron Arteaga MD #### FERI #### [address] [phone] Theatrical Trouper: Gino Wing MD Platelets (Bld) [#/Vol] 453 10*3/uL High 140-450 [facility] Comment on above: Performed By: #### L IP, SED, CP, CRP, CDP #### [facility] [address] [place] [id number] ( Theatrical Trouper: Aaron Arteaga MD #### FERI #### [address] [address] Theatrical Trouper: Gino Wing MD RBC (Bld) [#/Vol] 4.16 10*6/uL Normal 4.0-5.2 [facility] Comment on above: Performed By: #### L IP, SED, CP, CRP, CDP #### [facility] [address] [place], [place] 9254190 Theatrical Trouper: Aaron Arteaga MD #### FERI #### [address] [address] Theatrical Trouper: Gino Wing MD WBC (Bld) [#/Vol] 20.4 10*3/uL Critically high 3.5-11.0 [facility] Comment on above: Performed By: #### L IP, SED, CP, CRP, CDP #### [facility] [address] [place], [place] 869[address] Theatrical Trouper: Aaron Arteaga MD #### FERI #### [place] [address] [place], [place] 2370808 Theatrical Trouper: Gino Wing MD Comp Metabolic Profon 2022 Albumin [Mass/Vol] 3.9 g/dL Normal 3.5-5.2 [facility] Comment on above: Performed By: #### L IP, SED, CP, CRP, CDP #### [facility] [address] [place], [place] [id number] Theatrical Trouper: Aaron Arteaga MD #### FERI #### [address] [id number] Theatrical Trouper: Gino Wing MD Alkaline Phos 100 U/L Normal 35-104 [facility] Comment on above: Performed By: #### L IP, SED, CP, CRP, CDP #### [facility] [address] [place] [address] ( Theatrical Trouper: Aaron Arteaga MD #### FERI #### [address] [phone] Theatrical Trouper: Gino Wing MD ALT [Catalytic activity/Vol] 24 U/L Normal 5-33 [facility] Comment on above: Performed By: #### L IP, SED, CP, CRP, CDP #### [facility] [address] [place], [place] 5896690 Theatrical Trouper: Aaron Arteaga MD #### FERI #### [address] [phone] Theatrical Trouper: Gino Wing MD Anion gap [Moles/Vol] 16 mmol/L Normal 9-17 [facility] Comment on above: Performed By: #### L IP, SED, CP, CRP, CDP #### [facility] [address] [place] [address] Theatrical Trouper: Aaron Arteaga MD #### FERI #### [address] [phone] Theatrical Trouper: Gino Wing MD AST [Catalytic activity/Vol] 21 U/L Normal <32 [facility] Comment on above: Performed By: #### L IP, SED, CP, CRP, CDP #### [facility] [address] [place], [place] 455[address] Theatrical Trouper: Aaron Arteaga MD #### FERI #### [address] [phone] Theatrical Trouper: Gino Wing MD Bilirubin [Mass/Vol] 0.5 mg/dL Normal 0.3-1.2 [facility] Comment on above: Performed By: #### L IP, SED, CP, CRP, CDP #### [facility] [address] [place] [address] Theatrical Trouper: Aaron Arteaga MD #### FERI #### [address] [id number] Theatrical Trouper: Gino Wing MD BUN/CRE Ratio 10 Normal 9-20 [facility] Comment on above: Performed By: #### L IP, SED, CP, CRP, CDP #### [facility] [address] [place], [place] 557[address] Theatrical Trouper: Aaron Arteaga MD #### FERI #### [address] [id number] Theatrical Trouper: Gino Wing MD Calcium [Mass/Vol] 9.1 mg/dL Normal 8.6-10.4 [facility] Comment on above: Performed By: #### L IP, SED, CP, CRP, CDP #### [facility] [address] [place] [address] Theatrical Trouper: Aaron Arteaga MD #### FERI #### [facility] [address] [place], [place] [phone] Theatrical Trouper: Gino Wing MD Chloride [Moles/Vol] 96 mmol/L Low 98-107 [facility] Comment on above: Performed By: #### L IP, SED, CP, CRP, CDP #### [facility] [address] [place], [place] 7906390 Theatrical Trouper: Aaron Arteaga MD #### FERI #### [facility] [address] [place], [place] 9263108 Theatrical Trouper: Gino Wing MD CO2 [Moles/Vol] 19 mmol/L Low 20-31 [facility] Comment on above: Performed By: #### L IP, SED, CP, CRP, CDP #### [facility] [address] [place] [address] Theatrical Trouper: Aaron Arteaga MD #### FERI #### [facility] [address] [place], [place] 7307708 Theatrical Trouper: Gino Wing MD Creatinine [Mass/Vol] 0.8 mg/dL Normal 0.5-0.9 [facility] Comment on above: Performed By: #### L IP, SED, CP, CRP, CDP #### [facility] [address] [place] [address] Theatrical Trouper: Aaron Arteaga MD #### FERI #### [facility] [address] [place] [address] [id number] Theatrical Trouper: Gino Wing MD GFR/1.73 sq M.predicted among non-blacks MDRD (S/P/Bld) [Vol rate/Area] mL/min/{1.73_m2} Normal >60 [facility] Comment on above: Result Comment: These results are not intended for use in patients <18 years of age. eGFR results are calculated without a race factor using the 2020 CKD-EPI equation. Careful clinical correlation is recommended, particularly when comparing to results calculated using previous equations. The CKD-EPI equation is less accurate in patients with extremes of muscle mass, extra-renal metabolism of creatine, excessive creatine ingestion, or following therapy that affects renal tubular secretion. Performed By: #### L IP, SED, CP, CRP, CDP #### [facility] [address] [place] [address] Theatrical Trouper: Aaron Arteaga MD #### FERI #### [facility] [address] [place], [place] [phone] Theatrical Trouper: Gino Wing MD Glucose [Mass/Vol] 154 mg/dL High 70-99 [facility] Comment on above: Performed By: #### L IP, SED, CP, CRP, CDP #### [facility] [address] [place] [address] Theatrical Trouper: Aaron Arteaga MD #### FERI #### [facility] [address] [place], [place] 2579208 Theatrical Trouper: Gino Wing MD Potassium [Moles/Vol] 3.8 mmol/L Normal 3.7-5.3 [facility] Comment on above: Performed By: #### L IP, SED, CP, CRP, CDP #### [facility] [address] [place] [address] Theatrical Trouper: Aaron Arteaga MD #### FERI #### [place] [address] [place], [place] [phone] Theatrical Trouper: Gino Wing MD Protein [Mass/Vol] 7.2 g/dL Normal 6.4-8.3 [facility] Comment on above: Performed By: #### L IP, SED, CP, CRP, CDP #### [facility] [address] [place] [address] Theatrical Trouper: Aaron Arteaga MD #### FERI #### [facility] [address] [place], [place] 1449408 Theatrical Trouper: Gino Wing MD Sodium [Moles/Vol] 131 mmol/L Low 135-144 [facility] Comment on above: Performed By: #### L IP, SED, CP, CRP, CDP #### [facility] [address] [place], [place] [id number] Theatrical Trouper: Aaron Arteaga MD #### FERI #### [address] [phone] Theatrical Trouper: Gino Wing MD Urea nitrogen [Mass/Vol] 8 mg/dL Normal 6-20 [facility] Comment on above: Performed By: #### L IP, SED, CP, CRP, CDP #### [facility] [address] [place], [place] 1533190 Theatrical Trouper: Aaron Arteaga MD #### FERI #### [address] [phone] Theatrical Trouper: Gino Wing MD Lactic Acidon 03-12-2023 Lactate [Moles/Vol] 1.2 mmol/L Normal 0.5-2.2 [facility] Comment on above: Performed By: #### L IP, SED, CP, CRP, CDP #### [facility] [address] [place], [place] 6979990 Theatrical Trouper: Aaron Arteaga MD #### FERI #### [address] [phone] Theatrical Trouper: Gino Wing MD Lipaseon 03-12-2023 Lipase [Catalytic activity/Vol] 18 U/L Normal 13-60 [facility] Comment on above: Performed By: #### L IP, SED, CP, CRP, CDP #### [facility] [address] [place] [address] Theatrical Trouper: Aaron Atreaga MD #### FERI #### [facility] [address] [place] [address] Theatrical Trouper: Gino Wing MD Urinalysis, Routineon 2022 Bilirubin, SemiQt,Ur Negative Normal NEG [facility] Comment on above: Performed By: #### L IP, SED, CP, CRP, CDP #### [facility] [address] [place] [address] Theatrical Trouper: Aaron Arteaga MD #### FERI #### [address] [address] Theatrical Trouper: Gino Wing MD Blood, Urine 1+ Abnormal NEG [facility] Comment on above: Performed By: #### L IP, SED, CP, CRP, CDP #### [facility] [address] [place] [address] Theatrical Trouper: Aaron Arteaga MD #### FERI #### [address] [address] Theatrical Trouper: Gino Wing MD Clarity (U) Clear Normal CLEAR [facility] Comment on above: Performed By: #### L IP, SED, CP, CRP, CDP #### [facility] [address] [place] [address] Theatrical Trouper: Aaron Arteaga MD #### FERI #### [address] [address] Theatrical Trouper: Gino Wing MD Color (U) Yellow Normal YEL [facility] Comment on above: Performed By: #### L IP, SED, CP, CRP, CDP #### [facility] [address] [place] [address] Theatrical Trouper: Aaron Arteaga MD #### FERI #### [address] [address] Theatrical Trouper: Gino Wing MD Comment Normal [facility] Comment on above: Performed By: #### L IP, SED, CP, CRP, CDP #### [facility] [address] [place] [address] Theatrical Trouper: Aaron Arteaga MD #### FERI #### [address] [address] Theatrical Trouper: Gino Wing MD Glucose Ql (U) Negative Normal NEG [facility] Comment on above: Performed By: #### L IP, SED, CP, CRP, CDP #### [facility] [address] [place], [place] 0127890 Theatrical Trouper: Aaron Arteaga MD #### FERI #### [address] [address] Theatrical Trouper: Gino Wing MD Ketones Ql (U) Negative Normal NEG [facility] Comment on above: Performed By: #### L IP, SED, CP, CRP, CDP #### [facility] [address] [place] [address] Theatrical Trouper: Aaron Arteaga MD #### FERI #### [address] [address] Theatrical Trouper: Gino Wing MD Leukocyte esterase Test strip Ql (U) Negative Normal NEG [facility] Comment on above: Performed By: #### L IP, SED, CP, CRP, CDP #### [facility] [address] [place] [address] Theatrical Trouper: Aaron Arteaga MD #### FERI #### [address] [address] Theatrical Trouper: Gino Wing MD Nitrite,Ur Negative Normal NEG [facility] Comment on above: Performed By: #### L IP, SED, CP, CRP, CDP #### [facility] [address] [place], [place] 7756990 Theatrical Trouper: Aaron Arteaga MD #### FERI #### [address] [phone] Theatrical Trouper: Gino Wing MD PH,Ur 7.0 Normal 5.0-8.0 [facility] Comment on above: Performed By: #### L IP, SED, CP, CRP, CDP #### [facility] [address] [place] [address] Theatrical Trouper: Aaron Arteaga MD #### FERI #### [address] [id number] Theatrical Trouper: Gino Wing MD Protein Ql (U) 1+ mg/dL Abnormal NEG [facility] Comment on above: Performed By: #### L IP, SED, CP, CRP, CDP #### [facility] [address] [place], [place] [phone] Theatrical Trouper: Aaron Arteaga MD #### FERI #### [address] [phone] Theatrical Trouper: Gino Wing MD Spec. [place],Ur 1.010 Normal 1.005-1.030 [facility] Comment on above: Performed By: #### L IP, SED, CP, CRP, CDP #### [facility] [address] [place], [place] 6066590 Theatrical Trouper: Aaron Arteaga MD #### FERI #### [address] [phone] Theatrical Trouper: Gino Wing MD Urobilinogen,Ur Normal Normal 0.0-1.0 [facility] Comment on above: Performed By: #### L IP, SED, CP, CRP, CDP #### [facility] [address] [place] [address] Theatrical Trouper: Aaron Arteaga MD #### FERI #### [address] [phone] Theatrical Trouper: Gino Wing MD Urinalysis,Microon 3 ----- Normal [facility] Comment on above: Performed By: #### L IP, SED, CP, CRP, CDP #### [facility] [address] [place] [address] Theatrical Trouper: Aaron Arteaga MD #### FERI #### [address] [phone] Theatrical Trouper: Gino Wing MD Epithelial cells LM Ql (Urine sed) 0 TO 2 Normal [facility] Comment on above: Performed By: #### L IP, SED, CP, CRP, CDP #### [facility] [address] [place], [place] [id number] Theatrical Trouper: Aaron Arteaga MD #### FERI #### [address] [phone] Theatrical Trouper: Gino Wing MD Urine RBC's 5 TO 10 Normal 0-2 [facility] Comment on above: Performed By: #### L IP, SED, CP, CRP, CDP #### [facility] [address] [place], [place] 5181190 Theatrical Trouper: Aaron Arteaga MD #### FERI #### [address] [phone] Theatrical Trouper: Gino Wing MD Urine WBC's 0 TO 2 Normal 0 [facility] Comment on above: Performed By: #### L IP, SED, CP, CRP, CDP #### [facility] [address] [place] [address] Theatrical Trouper: Aaron Arteaga MD #### FERI #### [facility] [address] [place] [address] Theatrical Trouper: Gino Wing MD CBC with Auto Differentialon 03-07-2023 Basophils (Bld) [#/Vol] 0.00 10*3/uL [facility] Basophils/100 WBC (Bld) 0 % 0 - 2 % [facility] Differential Type YES [facility] Eosinophils (Bld) [#/Vol] 0.00 10*3/uL [facility] Eosinophils/100 WBC (Bld) 0 % 0 - 5 % [facility] Erythrocyte distribution width (RBC) [Ratio] 13.8 % 12.1 - 15.2 % [facility] Hematocrit (Bld) [Volume fraction] 33.9 % Low 36 - 46 % [facility] Hemoglobin (Bld) [Mass/Vol] 11.3 g/dL Low 12.0 - 16.0 g/dL [facility] Interpretation and review of laboratory results Abnormal [facility] Lymphocytes/100 WBC (Bld) 14 % Low 15 - 40 % [facility] Lymphocytes/100 WBC (Bld) 1.30 % [facility] MCH (RBC) [Entitic mass] 27.2 pg 26 - 34 pg [facility] MCHC (RBC) [Mass/Vol] 33.4 g/dL 31 - 37 g/dL [facility] MCV (RBC) [Entitic vol] 81.4 fL 80 - 100 fL [facility] Monocytes/100 WBC (Bld) 6 % 4 - 8 % [facility] Monocytes/100 WBC (Bld) 0.60 % [facility] Neutrophils/100 WBC (Bld) 80 % High 47 - 75 % [facility] Platelets (Bld) [#/Vol] 407 10*3/uL [facility] RBC (Bld) [#/Vol] 4.17 10*6/uL 4.0 - 5.2 m/uL [facility] Segmented neutrophils/100 WBC (Bld) 7.50 % High [facility] WBC other (Bld) [#/Vol] 9.4 [facility] CBC with Diffon 03-07-2023 Abs. Basophil 0.00 k/uL Normal 0.0-0.2 [facility] Comment on above: Performed By: #### L IP, SED, CP, CRP, CDP #### [facility] [address] [place] [id number] ( Theatrical Trouper: Aaron Arteaga MD #### FERI #### [address] [id number] Theatrical Trouper: Gino Wing MD Abs.Neutrophil (Seg) 7.50 k/uL High 2.5-7.0 [facility] Comment on above: Performed By: #### L IP, SED, CP, CRP, CDP #### [facility] [address] [place] [address] Theatrical Trouper: Aaron Arteaga MD #### FERI #### [place] [id number] Theatrical Trouper: Gino Wing MD Auto Diff Performed YES Normal [facility] Comment on above: Performed By: #### L IP, SED, CP, CRP, CDP #### [facility] [address] [place] [address] Theatrical Trouper: Aaron Arteaga MD #### FERI #### [facility] [email or web address] [address] [place] [address] Theatrical Trouper: Gino Wing MD Basophils/100 WBC (Bld) 0 % Normal 0-2 [facility] Comment on above: Performed By: #### L IP, SED, CP, CRP, CDP #### [facility] [address] [place] [id number] ( Theatrical Trouper: Aaron Arteaga MD #### FERI #### [address] [id number] Theatrical Trouper: Gino Wing MD Eosinophils (Bld) [#/Vol] 0.00 10*3/uL Normal 0.0-0.4 [facility] Comment on above: Performed By: #### L IP, SED, CP, CRP, CDP #### [facility] [address] [place] [address] Theatrical Trouper: Aaron Arteaga MD #### FERI #### [address] [id number] Theatrical Trouper: Gino Wing MD Eosinophils/100 WBC (Bld) 0 % Normal 0-5 [facility] Comment on above: Performed By: #### L IP, SED, CP, CRP, CDP #### [facility] [address] [place] [id number] Theatrical Trouper: Aaron Arteaga MD #### FERI #### [address] [id number] Theatrical Trouper: Gino Wing MD Erythrocyte distribution width (RBC) [Ratio] 13.8 % Normal 12.1-15.2 [facility] Comment on above: Performed By: #### L IP, SED, CP, CRP, CDP #### [facility] [address] [place] [address] Theatrical Trouper: Aaron Arteaga MD #### FERI #### [address] [id number] Theatrical Trouper: Gino Wing MD Hematocrit (Bld) [Volume fraction] 33.9 % Low 36-46 [facility] Comment on above: Performed By: #### L IP, SED, CP, CRP, CDP #### [facility] [address] [place] [address] Theatrical Trouper: Aaron Arteaga MD #### FERI #### [address] [phone] Theatrical Trouper: Gino Wing MD Hemoglobin (Bld) [Mass/Vol] 11.3 g/dL Low 12.0-16.0 [facility] Comment on above: Performed By: #### L IP, SED, CP, CRP, CDP #### [facility] [address] [place] [id number] ( Theatrical Trouper: Aaron Arteaga MD #### FERI #### [address] [id number] Theatrical Trouper: Gino Wing MD Lymphocytes (Bld) [#/Vol] 1.30 10*3/uL Normal 1.0-4.8 [facility] Comment on above: Performed By: #### L IP, SED, CP, CRP, CDP #### [facility] [address] [place] [id number] ( Theatrical Trouper: Aaron Arteaga MD #### FERI #### [place] [address] Theatrical Trouper: Gino Wing MD Lymphocytes/100 WBC (Bld) 14 % Low 15-40 [facility] Comment on above: Performed By: #### L IP, SED, CP, CRP, CDP #### [facility] [address] [place] [id number] Theatrical Trouper: Aaron Arteaga MD #### FERI #### [place] [id number] Theatrical Trouper: Gino Wing MD MCH (RBC) [Entitic mass] 27.2 pg Normal 26-34 [facility] Comment on above: Performed By: #### L IP, SED, CP, CRP, CDP #### [facility] [address] [place] [id number] ( Theatrical Trouper: Aaron Arteaga MD #### FERI #### [place] [address] [place], [place] [id number] Theatrical Trouper: Gino Wing MD MCHC (RBC) [Mass/Vol] 33.4 g/dL Normal 31-37 [facility] Comment on above: Performed By: #### L IP, SED, CP, CRP, CDP #### [facility] [address] [place] [address] Theatrical Trouper: Aaron Arteaga MD #### FERI #### [address] [id number] Theatrical Trouper: Gino Wing MD MCV (RBC) [Entitic vol] 81.4 fL Normal 80-100 [facility] Comment on above: Performed By: #### L IP, SED, CP, CRP, CDP #### [facility] [address] [place] [address] ( Theatrical Trouper: Aaron Arteaga MD #### FERI #### [address] [id number] Theatrical Trouper: Gino Wing MD Monocytes (Bld) [#/Vol] 0.60 10*3/uL Normal 0.0-1.0 [facility] Comment on above: Performed By: #### L IP, SED, CP, CRP, CDP #### [facility] [address] [place] [address] Theatrical Trouper: Aaron Arteaga MD #### FERI #### [address] [address] Theatrical Trouper: Gino Wing MD Monocytes/100 WBC (Bld) 6 % Normal 4-8 [facility] Comment on above: Performed By: #### L IP, SED, CP, CRP, CDP #### [facility] [address] [place] [id number] ( Theatrical Trouper: Aaron Arteaga MD #### FERI #### [place] [address] [place], [place] [phone] Theatrical Trouper: Gino Wing MD Neutrophil (Seg) 80 % High 47-75 [facility] Comment on above: Performed By: #### L IP, SED, CP, CRP, CDP #### [facility] [address] [place], [place] [id number] Theatrical Trouper: Aaron Arteaga MD #### FERI #### [address] [phone] Theatrical Trouper: Gino Wing MD Platelets (Bld) [#/Vol] 407 10*3/uL Normal 140-450 [facility] Comment on above: Performed By: #### L IP, SED, CP, CRP, CDP #### [facility] [address] [place], [place] [id number] Theatrical Trouper: Aaron Arteaga MD #### FERI #### [address] [phone] Theatrical Trouper: Gino Wing MD RBC (Bld) [#/Vol] 4.17 10*6/uL Normal 4.0-5.2 [facility] Comment on above: Performed By: #### L IP, SED, CP, CRP, CDP #### [facility] [address] [place], [place] [id number] Theatrical Trouper: Aaron Arteaga MD #### FERI #### [address] [id number] Theatrical Trouper: Gino Wing MD WBC (Bld) [#/Vol] 9.4 10*3/uL Normal 3.5-11.0 [facility] Comment on above: Performed By: #### L IP, SED, CP, CRP, CDP #### [facility] [address] [place] [address] Theatrical Trouper: Aaron Arteaga MD #### FERI #### [facility] [address] [place] [address] Theatrical Trouper: Gino Wing MD [facility] 03-07-2023 Albumin [Mass/Vol] 3.8 g/dL 3.5 - 5.2 g/dL [facility] ALP [Catalytic activity/Vol] 81 U/L 35 - 104 U/L [facility] ALT [Catalytic activity/Vol] 8 U/L 5 - 33 U/L [facility] Anion gap [Moles/Vol] 11 mmol/L 9 - 17 mmol/L [facility] AST [Catalytic activity/Vol] 10 U/L NINF - 32 U/L [facility] Bilirubin [Mass/Vol] 0.3 mg/dL 0.3 - 1 .2 mg/dL [facility] Calcium [Mass/Vol] 8.8 mg/dL 8.6 - 10. 4 mg/dL [facility] Chloride [Moles/Vol] 103 mmol/L 98 - 10 7 mmol/L [facility] CO2 [Moles/Vol] 22 mmol/L 20 - 31 mmol/L [facility] Creatinine [Mass/Vol] 0.7 mg/dL 0.5 - 0.9 mg/dL [facility] GFR/1.73 sq M.predicted MDRD (S/P/Bld) [Vol rate/Area] - PINF [facility] Comment on above: These results are not intended for use in patients <18 years of age. eGFR results are calculated without a race factor using the 2020 CKD-EPI equation. Careful clinical correlation is recommended, particularly when comparing to results calculated using previous equations. The CKD-EPI equation is less accurate in patients with extremes of muscle mass, extra-renal metabolism of creatine, excessive creatine ingestion, or following therapy that affects renal tubular secretion. Glucose [Mass/Vol] 131 mg/dL High 70 - 99 mg/dL [facility] Interpretation and review of laboratory results Abnormal [facility] Potassium [Moles/Vol] 4.1 mmol/L 3.7 - 5.3 mmol/L [facility] Protein [Mass/Vol] 6.7 g/dL 6.4 - 8.3 g/dL [facility] Sodium [Moles/Vol] 136 mmol/L 135 - 144 mmol/L [facility] Urea nitrogen [Mass/Vol] 8 mg/dL 6 - 20 mg/dL [facility] Urea nitrogen/Creatinine [Mass ratio] 11 mg/mg 9 - 20 [facility] Comp Metabolic Profon 2022 Albumin [Mass/Vol] 3.8 g/dL Normal 3.5-5.2 [facility] Comment on above: Performed By: #### L IP, SED, CP, CRP, CDP #### [facility] [address] [place] [address] Theatrical Trouper: Aaron Arteaga MD #### FERI #### [address] [id number] Theatrical Trouper: Gino Wing MD Alkaline Phos 81 U/L Normal 35-104 [facility] Comment on above: Performed By: #### L IP, SED, CP, CRP, CDP #### [facility] [address] [place], [place] [id number] Theatrical Trouper: Aaron Arteaga MD #### FERI #### [address] [phone] Theatrical Trouper: Gnio Wing MD ALT [Catalytic activity/Vol] 8 U/L Normal 5-33 [facility] Comment on above: Performed By: #### L IP, SED, CP, CRP, CDP #### [facility] [address] [place], [place] [id number] Theatrical Trouper: Aaron Arteaga MD #### FERI #### [address] [address] Theatrical Trouper: Gino Wing MD Anion gap [Moles/Vol] 11 mmol/L Normal 9-17 [facility] Comment on above: Performed By: #### L IP, SED, CP, CRP, CDP #### [facility] [address] [place], [place] [id number] Theatrical Trouper: Aaron Arteaga MD #### FERI #### [facility] [address] [place] [address] Theatrical Trouper: Gino Wing MD AST [Catalytic activity/Vol] 10 U/L Normal <32 [facility] Comment on above: Performed By: #### L IP, SED, CP, CRP, CDP #### [facility] [address] [place], [place] [phone] Theatrical Trouper: Aaron Arteaga MD #### FERI #### [address] [phone] Theatrical Trouper: Gino Wing MD Bilirubin [Mass/Vol] 0.3 mg/dL Normal 0.3-1.2 [facility] Comment on above: Performed By: #### L IP, SED, CP, CRP, CDP #### [facility] [address] [place], [place] [id number] Theatrical Trouper: Aaron Arteaga MD #### FERI #### [address] [phone] Theatrical Trouper: Gino Wing MD BUN/CRE Ratio 11 Normal 9-20 [facility] Comment on above: Performed By: #### L IP, SED, CP, CRP, CDP #### [facility] [address] [place], [place] [phone] Theatrical Trouper: Aaron Arteaga MD #### FERI #### [address] [address] Theatrical Trouper: Gino Wing MD Calcium [Mass/Vol] 8.8 mg/dL Normal 8.6-10.4 [facility] Comment on above: Performed By: #### L IP, SED, CP, CRP, CDP #### [facility] [address] [place] [address] Theatrical Trouper: Aaron Arteaga MD #### FERI #### [place] [address] [place], [place] [phone] Theatrical Trouper: Gino Wing MD Chloride [Moles/Vol] 103 mmol/L Normal 98-107 [facility] Comment on above: Performed By: #### L IP, SED, CP, CRP, CDP #### [facility] [address] [place] [address] Theatrical Trouper: Aaron Arteaga MD #### FERI #### [address] [id number] Theatrical Trouper: Gino Wing MD CO2 [Moles/Vol] 22 mmol/L Normal 20-31 [facility] Comment on above: Performed By: #### L IP, SED, CP, CRP, CDP #### [facility] [address] [place] [address] Theatrical Trouper: Aaron Arteaga MD #### FERI #### [address] [phone] Theatrical Trouper: Gino Wing MD Creatinine [Mass/Vol] 0.7 mg/dL Normal 0.5-0.9 [facility] Comment on above: Performed By: #### L IP, SED, CP, CRP, CDP #### [facility] [address] [place] [address] Theatrical Trouper: Aaron Arteaga MD #### FERI #### [address] [id number] Theatrical Trouper: Gino Wing MD GFR/1.73 sq M.predicted among non-blacks MDRD (S/P/Bld) [Vol rate/Area] mL/min/{1.73_m2} Normal >60 [facility] Comment on above: Result Comment: These results are not intended for use in patients <18 years of age. eGFR results are calculated without a race factor using the 2020 CKD-EPI equation. Careful clinical correlation is recommended, particularly when comparing to results calculated using previous equations. The CKD-EPI equation is less accurate in patients with extremes of muscle mass, extra-renal metabolism of creatine, excessive creatine ingestion, or following therapy that affects renal tubular secretion. Performed By: #### L IP, SED, CP, CRP, CDP #### [facility] [address] [place] [address] Theatrical Trouper: Aaron Arteaga MD #### FERI #### [address] [phone] Theatrical Trouper: Gino Wing MD Glucose [Mass/Vol] 131 mg/dL High 70-99 [facility] Comment on above: Performed By: #### L IP, SED, CP, CRP, CDP #### [facility] [address] [place] [address] Theatrical Trouper: Aaron Arteaga MD #### FERI #### [address] [phone] Theatrical Trouper: Gino Wing MD Potassium [Moles/Vol] 4.1 mmol/L Normal 3.7-5.3 [facility] Comment on above: Performed By: #### L IP, SED, CP, CRP, CDP #### [facility] [address] [place] [address] Theatrical Trouper: Aaron Arteaga MD #### FERI #### [address] [phone] Theatrical Trouper: Gino Wing MD Protein [Mass/Vol] 6.7 g/dL Normal 6.4-8.3 [facility] Comment on above: Performed By: #### L IP, SED, CP, CRP, CDP #### [facility] [address] [place], [place] [id number] Theatrical Trouper: Aaron Arteaga MD #### FERI #### [address] [phone] Theatrical Trouper: Gino Wing MD Sodium [Moles/Vol] 136 mmol/L Normal 135-144 [facility] Comment on above: Performed By: #### L IP, SED, CP, CRP, CDP #### [facility] [address] [place], [place] [id number] Theatrical Trouper: Aaron Arteaga MD #### FERI #### [address] [phone] Theatrical Trouper: Gino Wing MD Urea nitrogen [Mass/Vol] 8 mg/dL Normal 6-20 [facility] Comment on above: Performed By: #### L IP, SED, CP, CRP, CDP #### [facility] [address] [place] [address] Theatrical Trouper: Aaron Arteaga MD #### FERI #### [address] [phone] Theatrical Trouper: Gino Wing MD Diff Methodon 7 Diff Method AUTO Normal [facility] Comment on above: Performed By: #### L IP, SED, CP, CRP, CDP #### [facility] [address] [place], [place] [phone] Theatrical Trouper: Aaron Arteaga MD #### FERI #### [address] [phone] Theatrical Trouper: Gino Wing MD HCG, ,Urineon 03-075 Beta HCG ( test) Ql (U) Positive Abnormal NEG [facility] Comment on above: Result Comment: If H CG results do not concur with clinical observations, additional testing to confirm result is recommended. This test is not labeled for use as a tumor marker. Performed By: #### U AYAD ARIZMENDI, [facility] #### [facility] [address] [place] [address] Theatrical Trouper: Aaron Arteaga MD Microscopic Urinalysison - [facility] Bacteria LM Ql (Urine sed) RARE Abnormal None [facility] Epithelial cells LM.HPF (Urine sed) [#/Area] 20 TO 50 /HPF [facility] Interpretation and review of laboratory results Abnormal [facility] RBC LM.HPF (Urine sed) [#/Area] 0 TO 2 [facility] WBC LM.HPF (Urine sed) [#/Area] NONE SEEN 0 /HPF [facility] , Urineon 3 HCG ( test) Ql (U) Positive Abnormal NEGATIVE [facility] Comment on above: If HCG results do no t concur with clinical observations, additional testing to confirm result is recommended. This test is not labeled for use as a tumor marker. Interpretation and review of laboratory results Abnormal [facility] Urinalysison 03-07-2023 Bilirubin Ql (U) Negative NEGATIVE [facility] Clarity (U) Clear Clear [facility] Color (U) Yellow Yellow [facility] Comment [facility] Glucose Test strip (U) [Mass/Vol] Negative NEGATIVE mg/dL [facility] Hemoglobin Auto test strip Ql (U) TRACE Abnormal NEGATIVE [facility] Interpretation and review of laboratory results Abnormal [facility] Ketones (U) [Mass/Vol] Negative NEGATIVE mg/dL [facility] Leukocyte esterase Test strip Ql (U) Negative NEGATIVE [facility] Nitrite Ql (U) Negative NEGATIVE [facility] pH (U) 7.0 [pH] 5.0 - 8.0 [facility] Protein (U) [Mass/Vol] Negative NEGATIVE mg/dL [facility] Specific gravity (U) [Rel density] 1.015 1.005 - 1.030 [facility] Urobilinogen Qn (U) Normal 0.0 - 1. 0 EU/dL [facility] Urinalysis, Routineon 2022 Bilirubin, SemiQt,Ur Negative Normal NEG [facility] Comment on above: Performed By: #### U MICAO, UA, CG #### [facility] [address] [place] [address] Theatrical Trouper: Aaron Arteaga MD Blood, Urine TRACE Abnormal NEG [facility] Comment on above: Performed By: #### U MICAO, UA, [facility] #### [facility] [address] [place] [address] Theatrical Trouper: Aaron Arteaga MD Clarity (U) Clear Normal CLEAR [facility] Comment on above: Performed By: #### U MICAO, UA, [facility] #### [facility] [address] [place] [address] Theatrical Trouper: Aaron Arteaga MD Color (U) Yellow Normal YEL [facility] Comment on above: Performed By: #### U MICAO, UA, [facility] #### [facility] [address] [place] [address] Theatrical Trouper: Aaron Arteaga MD Comment Normal [facility] Comment on above: Performed By: #### U MICAO, UA, [facility] #### [facility] [address] [place] [address] Theatrical Trouper: Aaron Arteaga MD Glucose Ql (U) Negative Normal NEG [facility] Comment on above: Performed By: #### U MICAO, UA, CG #### [facility] [address] [place] [address] Theatrical Trouper: Aaron Arteaga MD Ketones Ql (U) Negative Normal NEG [facility] Comment on above: Performed By: #### U MICAO, UA, CG #### [facility] [address] [place] [address] Theatrical Trouper: Aaron Arteaga MD Leukocyte esterase Test strip Ql (U) Negative Normal NEG [facility] Comment on above: Performed By: #### U MICAO, UA, CG #### [facility] [address] [place] [address] Theatrical Trouper: Aaron Arteaga MD Nitrite,Ur Negative Normal NEG [facility] Comment on above: Performed By: #### U MICAO, UA, [facility] #### [facility] [address] [place] [address] Theatrical Trouper: Aaron Arteaga MD PH,Ur 7.0 Normal 5.0-8.0 [facility] Comment on above: Performed By: #### U MICAO, UA, [facility] #### [facility] [address] [place] [address] Theatrical Trouper: Aaron Arteaga MD Protein Ql (U) Negative Normal NEG [facility] Comment on above: Performed By: #### U MICAO, UA, [facility] #### [facility] [address] [place] [address] Theatrical Trouper: Aaron Arteaga MD Spec. [place],Ur 1.015 Normal 1.005-1.030 [facility] Comment on above: Performed By: #### U MICAO, UA, [facility] #### [facility] [address] [place] [address] Theatrical Trouper: Aaron Arteaga MD Urobilinogen,Ur Normal Normal 0.0-1.0 [facility] Comment on above: Performed By: #### U MICAO, UA, CG #### [facility] [address] [place] [address] Theatrical Trouper: Aaron Arteaga MD Urinalysis,Microon 3 ----- Normal [facility] Comment on above: Performed By: #### U KRISTYNO UA, UHCG #### [facility] [address] [place] [address] Theatrical Trouper: Aaron Arteaga MD Bacteria RARE Abnormal NONE [facility] Comment on above: Performed By: #### U MICAO UA, UHCG #### [facility] [address] [place] [address] Theatrical Trouper: Aaron Arteaga MD Epithelial cells LM Ql (Urine sed) 20 TO 50 Normal [facility] Comment on above: Performed By: #### U KRISTYNO UA, UHCG #### [facility] [address] [place], [place] [id number] Theatrical Trouper: Aaron Arteaga MD Urine RBC's 0 TO 2 Normal 0-2 [facility] Comment on above: Performed By: #### U MICAO UA, CG #### [facility] [address] [place], [place] [id number] Theatrical Trouper: Aaron Arteaga MD Urine WBC's NONE SEEN Normal 0 [facility] Comment on above: Performed By: #### U KRISTYNO UA, UHCG #### [facility] [address] [place], [place] [phone] Theatrical Trouper: Aaron Arteaga MD US PELVIS AND TRANSVAGon US PELVIS AND TRANSVAG EXAMINATION: US PELVIS AND TRANSVAG HISTORY: Abnormal uterine bleeding unrelated to menstrual cycle COMPARISON: No relevant comparison available. TECHNIQUE: Transabdominal and transvaginal sonographic examination. FINDINGS: UTERUS: Normal size and appearance. Uterus size: 11.8 x 5.0 x 6.7 cm ENDOMETRIUM: Normal homogeneous appearance. Endometrial thickness: 12 mm RIGHT OVARY: Normal size and appearance. Duplex Doppler demonstrates normal waveform and flow; resistive index 0.5. Ovary size: 2.4 x 1.8 x 3.7 cm LEFT OVARY: Normal size and appearance. Blood flow present within ovary on color Doppler. Ovary size: 2.7 x 1.9 x 2.6 cm CUL-DE-SAC: Unremarkable. No significant free fluid. BLADDER: Unremarkable. OTHER: None. IMPRESSION: 1. Unremarkable pelvic ultrasound. Electronically authenticated by: PILAR DOBSON Date: 2023-01-03 10:47 Normal [facility] Strep Gr A Direct Agon 11-14 Strep Gr A Direct Ag Negative Normal NEG [facility] Comment on above: Result Comment: Rapi d Strep A negative. A negative Rapid Group A Strep Screen result does not rule out the possibility of Group A Streptococci in the specimen. A Group A Strep DNA test is available upon request. Performed By: #### R GPA #### [facility] [address] [place] [address] Theatrical Trouper: Aaron Arteaga MD Source .THROAT SWAB Normal [facility] Comment on above: Performed By: #### R GPA #### [facility] [address] [place] [address] Theatrical Trouper: Aaron Arteaga MD Strep Screen Group A Throato n 11-14-2022 S. pyogenes Ag Ql (Throat) Negative NEGATIVE [facility] Comment on above: Rapid Strep A negati ve. A negative Rapid Group A Strep Screen result does not rule out the possibility of Group A Streptococci in the specimen. A Group A Strep DNA test is available upon request. Source .THROAT SWAB [facility] Drug Scr, Abuse, Uron 2021 Amphetamine(s),Ur Negative Normal NEG [facility] Comment on above: Result Comment: (Positive cutoff 1000 ng/mL) Performed By: #### D AU, URTPRT #### [facility] [address] [place] [address] Theatrical Trouper: Gino Wing MD Barbiturate(s),Ur Negative Normal NEG [facility] Comment on above: Result Comment: (Positive cutoff 200 ng/mL) Performed By: #### D AU, URTPRT #### [facility] [address] [place] [id number] Theatrical Trouper: Gino Wing MD Benzodiazepine(s) Negative Normal NEG [facility] Comment on above: Result Comment: (Positive cutoff 200 ng/mL) Performed By: #### D AU, URTPRT #### [facility] [email or web address] [address] [place] [id number] Theatrical Trouper: Gino Wing MD Cannabinoid(s),Ur Negative Normal NEG [facility] Comment on above: Result Comment: (Positive cutoff 50 ng/mL) Performed By: #### D AU, URTPRT #### [facility] [address] [place] [id number] Theatrical Trouper: Gino Wing MD Cocaine Metabolite Negative Normal NEG [facility] Comment on above: Result Comment: (Positive cutoff 300 ng/mL) Performed By: #### D AU, URTPRT #### [facility] [address] [place] [id number] Theatrical Trouper: Gino Wing MD Fentanyl, Urine Positive Abnormal NEG [facility] Comment on above: Result Comment: (Positive cutoff 5 ng/ml) Performed By: #### D AU, URTPRT #### [address] [address] Theatrical Trouper: Gino Wing MD Interpretive Info Assay provides medic al screening only. The absence of expected drug(s) and/or Normal [facility] Comment on above: Result Comment: meta bolite(s) may indicate diluted or adulterated urine, limitations of testing or timing of collection. Testing for legal purposes should be confirmed by another method. To request confirmation of test result, please call the lab within 7 days of sample submission. Performed By: #### D AU, URTPRT #### [facility] [address] [place] [id number] Theatrical Trouper: Gino Wing MD Methadone Ql (U) Negative Normal NEG [facility] Comment on above: Result Comment: (Positive cutoff 300 ng/mL) Performed By: #### Lydia CALDWELL, URTPRT #### [facility] [employer] [address] [place] [phone] Theatrical Trouper: Gino Wing MD Opiate(s), Ur Negative Normal NEG [facility] Comment on above: Result Comment: (Positive cutoff 300 ng/mL) Performed By: #### Lydia CALDWELL, URTPRT #### [employer] [address] [place] [phone] Theatrical Trouper: Gino Wing MD Oxycodone, Urine Positive Abnormal NEG [facility] Comment on above: Result Comment: (Positive cutoff 100 ng/mL) Performed By: #### Lydia CALDWELL, URTPRT #### [facility] [address] [place] [phone] Theatrical Trouper: Gino Wing MD Phencyclidine, Ur Negative Normal NEG [facility] Comment on above: Result Comment: (Positive cutoff 25 ng/mL) Performed By: #### Lydia CALDWELL, URTPRT #### [facility] [address] [place] [phone] Theatrical Trouper: Gino Wing MD SURGICAL PATHOLOGY REPORTon 05-27-2022 Surgical Pathology Report -- Diagnosis -- PLACENTA, DELIVERED: -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 -PLACENTAL DISC IS UNREMARKABLE. Aaron Arteaga M.D. Electronically Signed Out 05/27/2022 Clinical Information Pre-op Diagnosis: , ECLAMPSIA, HX PRE-E, HX LAP TAVO/APPY, BMI 41 Operative Findings: PLTCS, F, WT: 4#, 15 OZ, PLACENTA, CORD & MEMBRANES Source of Specimen A: PLACENTA, CORD, AND MEMBRANES Gross Description QIAN CLEMENTS, UNDESIGNATED Placenta with attached membranes and umbilical cord. UMBILICAL CORD Length: 10.0 cm Diameter: 1.3 cm True knots: No Number of vessels: 3 Spiraling: Normal Insertion into surface: Central MEMBRANES Color: Purple-bhatia, focally opacified with a circummarginate insertion Meconium staining: No SURFACE Color: Purple-bhatia, with a normal array of surface vessels Subchorionic fibrin: Marginal and involves approximately 10% of the disc MATERNAL SURFACE Cotyledons: -Fragmented/torn: (Approximately 20%) and completeness cannot be determined -Focal lesions: No Placental size: 17.0 x 15.0 x 3.0 cm Shape: Ovoid Weight: 439 grams Number of cassettes: 3cs tm Microscopic Description Umbilical cord: Unremarkable Membranes: Unremarkable Meconium staining: No Infarcts: No Intervillous thrombi: No Subchorionic fibrin: Not significantly increased Villous maturation: Appropriate Nucleated erythrocytes in villous capillaries: Not increased Other: Few microcalcifications SURGICAL PATHOLOGY CONSULTATION Patient Name: QIAN CLEMENTS [facility] Rec: [id number] Path Number: [id number] [facility] ANATOMIC PATHOLOGY [address] [place] [phone] [facility] CBCon 05-26-2022 Erythrocyte distribution width (RBC) [Ratio] 12.4 % Normal 11.8-14.4 [facility] Comment on above: Performed By: #### C BC, CP #### [facility] [address] [place] [address] [phone] Theatrical Trouper: Gino Wing MD Hematocrit (Bld) [Volume fraction] 28.6 % Low 36.3-47.1 [facility] Comment on above: Performed By: #### C BC, CP #### [facility] [address] [place] [address] [phone] Theatrical Trouper: Gino Wing MD Hemoglobin (Bld) [Mass/Vol] 9.6 g/dL Low 11.9-15.1 [facility] Comment on above: Performed By: #### C BC, CP #### [facility] [address] [place] [address] [phone] Theatrical Trouper: Gino Wing MD MCH (RBC) [Entitic mass] 30.0 pg Normal 25.2-33.5 [facility] Comment on above: Performed By: #### C BC, CP #### [address] [address] Theatrical Trouper: Gino Wing MD MCHC (RBC) [Mass/Vol] 33.6 g/dL Normal 28.4-34.8 [facility] Comment on above: Performed By: #### C BC, CP #### [address] [address] Theatrical Trouper: Gino Wing MD MCV (RBC) [Entitic vol] 89.4 fL Normal 82.6-102.9 [facility] Comment on above: Performed By: #### C BC, CP #### [address] [address] Theatrical Trouper: Gino Wing MD NRBC Automated 0.0 per 100 WBC Normal 0.0 [facility] Comment on above: Performed By: #### C BC, CP #### [address] [address] Theatrical Trouper: Gino Wing MD Platelet mean volume (Bld) [Entitic vol] 9.6 fL Normal 8.1-13.5 [facility] Comment on above: Performed By: #### C BC, CP #### [address] [address] Theatrical Trouper: Gino Wing MD Platelets (Bld) [#/Vol] 321 10*3/uL Normal 138-453 [facility] Comment on above: Performed By: #### C BC, CP #### [address] [address] Theatrical Trouper: Gino Wing MD RBC (Bld) [#/Vol] 3.20 10*6/uL Low 3.95-5.11 [facility] Comment on above: Performed By: #### C DHARA, CP #### [facility] [address] [place], [place] [phone] Theatrical Trouper: Gino Wing MD WBC (Bld) [#/Vol] 13.1 10*3/uL High 3.5-11.3 [facility] Comment on above: Performed By: #### C DHARA, CP #### [facility] [address] [place], [place] [phone] Theatrical Trouper: Gino Wing MD Hematocrit (Bld) [Volume fraction] 28.6 % Low 36.3 - 47.1 % [facility] Hemoglobin (Bld) [Mass/Vol] 9.6 g/dL Low 11.9 - 15.1 g/dL [facility] Interpretation and review of laboratory results Abnormal [facility] MCH (RBC) [Entitic mass] 30.0 pg 25.2 - 33.5 pg [facility] MCHC (RBC) [Mass/Vol] 33.6 g/dL 28.4 - 34.8 g/dL [facility] MCV (RBC) [Entitic vol] 89.4 fL 82.6 - 102.9 fL [facility] NRBC Automated 0.0 0.0 per 100 WBC [facility] Platelet distribution width (Bld) [Ratio] 12.4 % 11.8 - 14.4 % [facility] Platelet mean volume (Bld) [Entitic vol] 9.6 fL 8.1 - 13.5 fL [facility] Platelets (Bld) [#/Vol] 321 10*3/uL [facility] RBC (Bld) [#/Vol] 3.20 10*6/uL Low 3.95 - 5.1 1 m/uL [facility] WBC (Bld) [#/Vol] 13.1 10*3/uL High [facility] Comp Metabolic Profon 2021 Bilirubin [Mass/Vol] mg/dL Low 0.3-1.2 [facility] Comment on above: Performed By: #### C BC, CP #### [address] [address] Theatrical Trouper: Gino Wing MD Albumin [Mass/Vol] 2.4 g/dL Low 3.5-5.2 [facility] Comment on above: Performed By: #### C BC, CP #### [facility] [address] [place] [phone] Theatrical Trouper: Gino Wing MD Albumin/Glob Ratio 0.9 Low 1.0-2.5 [facility] Comment on above: Performed By: #### C BC, CP #### [facility] [email or web address] [address] [place] [phone] Theatrical Trouper: Gino Wing MD Alkaline Phos 79 U/L Normal 35-104 [facility] Comment on above: Performed By: #### C BC, CP #### [address] [address] Theatrical Trouper: Gino Wing MD ALT [Catalytic activity/Vol] 10 U/L Normal 5-33 [facility] Comment on above: Performed By: #### C BC, CP #### [address] [address] Theatrical Trouper: Gino Wing MD Anion gap [Moles/Vol] 12 mmol/L Normal 9-17 [facility] Comment on above: Performed By: #### C BC, CP #### [address] [address] Theatrical Trouper: Gino Wing MD AST [Catalytic activity/Vol] 20 U/L Normal <32 [facility] Comment on above: Performed By: #### C BC, CP #### [address] [address] Theatrical Trouper: Gino Wing MD Calcium [Mass/Vol] 6.6 mg/dL Low 8.6-10.4 [facility] Comment on above: Performed By: #### C DHARA, CP #### [address] [address] Theatrical Trouper: Gino Wing MD Chloride [Moles/Vol] 101 mmol/L Normal 98-107 [facility] Comment on above: Performed By: #### C BC, CP #### [address] [address] Theatrical Trouper: Gino Wing MD CO2 [Moles/Vol] 19 mmol/L Low 20-31 [facility] Comment on above: Performed By: #### C DHARA, CP #### [address] [address] Theatrical Trouper: Gino Wing MD Creatinine [Mass/Vol] 0.60 mg/dL Normal 0.50-0.90 [facility] Comment on above: Performed By: #### C DHARA, CP #### [address] [address] Theatrical Trouper: Gino Wing MD GFR/1.73 sq M.predicted among non-blacks MDRD (S/P/Bld) [Vol rate/Area] mL/min/{1.73_m2} Normal >60 [facility] Comment on above: Result Comment: Effective May 24, 2022 These results are not intended for use in patients <18 years of age. eGFR results are calculated without a race factor using the 2020 CKD-EPI equation. Careful clinical correlation is recommended, particularly when comparing to results calculated using previous equations. The CKD-EPI equation is less accurate in patients with extremes of muscle mass, extra-renal metabolism of creatine, excessive creatine ingestion, or following therapy that affects renal tubular secretion. Performed By: #### C DHARA, CP #### [address] [address] Theatrical Trouper: Gino Wing MD Glucose [Mass/Vol] 103 mg/dL High 70-99 [facility] Comment on above: Performed By: #### C BC, CP #### [address] [address] Theatrical Trouper: Gino Wing MD Potassium [Moles/Vol] 4.3 mmol/L Normal 3.7-5.3 [facility] Comment on above: Performed By: #### C BC, CP #### [address] [address] Theatrical Trouper: Gino Wing MD Protein [Mass/Vol] 5.2 g/dL Low 6.4-8.3 [facility] Comment on above: Performed By: #### C BC, CP #### [address] [address] Theatrical Trouper: Gino Wing MD Sodium [Moles/Vol] 132 mmol/L Low 135-144 [facility] Comment on above: Performed By: #### C BC, CP #### [address] [address] Theatrical Trouper: Gino Wing MD Urea nitrogen [Mass/Vol] 6 mg/dL Normal 6-20 [facility] Comment on above: Performed By: #### C BC, CP #### [address] [address] Theatrical Trouper: Gino Wing MD ALT [Catalytic activity/Vol] U/L Low 5-33 [facility] Comment on above: Performed By: #### C DP, CP #### [address] [address] Theatrical Trouper: Gino Wing MD Bilirubin [Mass/Vol] mg/dL Low 0.3-1.2 [facility] Comment on above: Performed By: #### C DP, CP #### [address] [address] Theatrical Trouper: Gino Wing MD Albumin [Mass/Vol] 3.1 g/dL Low 3.5-5.2 [facility] Comment on above: Performed By: #### C DP, CP #### [address] [address] Theatrical Trouper: Gino Wing MD Albumin/Glob Ratio 1.1 Normal 1.0-2.5 [facility] Comment on above: Performed By: #### C DP, CP #### [address] [address] Theatrical Trouper: Gino Wing MD Alkaline Phos 82 U/L Normal 35-104 [facility] Comment on above: Performed By: #### C DP, CP #### [address] [address] Theatrical Trouper: Gino Wing MD Anion gap [Moles/Vol] 13 mmol/L Normal 9-17 [facility] Comment on above: Performed By: #### C DP, CP #### [address] [address] Theatrical Trouper: Gino Wing MD AST [Catalytic activity/Vol] 17 U/L Normal <32 [facility] Comment on above: Performed By: #### C DP, CP #### [address] [address] Theatrical Trouper: Gino Wing MD Calcium [Mass/Vol] 6.6 mg/dL Low 8.6-10.4 [facility] Comment on above: Performed By: #### C DP, CP #### [address] [address] Theatrical Trouper: Gino Wing MD Chloride [Moles/Vol] 102 mmol/L Normal 98-107 [facility] Comment on above: Performed By: #### C DP, CP #### [address] [address] Theatrical Trouper: Gino Wing MD CO2 [Moles/Vol] 19 mmol/L Low 20-31 [facility] Comment on above: Performed By: #### C DP, CP #### [address] [address] Theatrical Trouper: Gino Wing MD Creatinine [Mass/Vol] 0.57 mg/dL Normal 0.50-0.90 [facility] Comment on above: Performed By: #### C DP, CP #### [address] [address] Theatrical Trouper: Gino Wing MD GFR/1.73 sq M.predicted among non-blacks MDRD (S/P/Bld) [Vol rate/Area] mL/min/{1.73_m2} Normal >60 [facility] Comment on above: Result Comment: Effective May 24, 2022 These results are not intended for use in patients <18 years of age. eGFR results are calculated without a race factor using the 2020 CKD-EPI equation. Careful clinical correlation is recommended, particularly when comparing to results calculated using previous equations. The CKD-EPI equation is less accurate in patients with extremes of muscle mass, extra-renal metabolism of creatine, excessive creatine ingestion, or following therapy that affects renal tubular secretion. Performed By: #### C DP, CP #### [address] [address] Theatrical Trouper: Gino Wing MD Glucose [Mass/Vol] 109 mg/dL High 70-99 [facility] Comment on above: Performed By: #### C DP, CP #### [address] [address] Theatrical Trouper: Gino Wing MD Potassium [Moles/Vol] 4.2 mmol/L Normal 3.7-5.3 [facility] Comment on above: Performed By: #### C DP, CP #### [facility] [address] [place] [address] Theatrical Trouper: Gino Wing MD Protein [Mass/Vol] 6.0 g/dL Low 6.4-8.3 [facility] Comment on above: Performed By: #### C DP, CP #### [facility] [address] [place] [address] Theatrical Trouper: Gino Wing MD Sodium [Moles/Vol] 134 mmol/L Low 135-144 [facility] Comment on above: Performed By: #### C DP, CP #### [facility] [place] [address] Theatrical Trouper: Gino Wing MD Urea nitrogen [Mass/Vol] 6 mg/dL Normal 6-20 [facility] Comment on above: Performed By: #### C DP, CP #### [facility] [place] [address] Theatrical Trouper: Gino Wing MD [facility] 05-26-2022 Albumin [Mass/Vol] 2.4 g/dL Low 3.5 - 5.2 g/dL [facility] Albumin/Globulin [Mass ratio] 0.9 {ratio} Low 1 - 2.5 [facility] ALP (Bld) [Catalytic activity/Vol] 79 U/L 35 - 104 U/L [facility] ALT [Catalytic activity/Vol] 10 U/L 5 - 33 U/L [facility] Anion gap [Moles/Vol] 12 mmol/L 9 - 17 mmol/L [facility] AST [Catalytic activity/Vol] 20 U/L NINF - 32 U/L [facility] Bilirubin [Mass/Vol] mg/dL Low 0.3 - 1 .2 mg/dL [facility] Calcium [Mass/Vol] 6.6 mg/dL Low 8.6 - 10. 4 mg/dL [facility] Chloride [Moles/Vol] 101 mmol/L 98 - 10 7 mmol/L [facility] CO2 [Moles/Vol] 19 mmol/L Low 20 - 31 mmol/L [facility] Creatinine [Mass/Vol] 0.6 mg/dL 0.5 - 0.9 mg/dL [facility] GFR/1.73 sq M.predicted MDRD (S/P/Bld) [Vol rate/Area] - PINF [facility] Comment on above: Effective May 24, 2022 These results are not intended for use in patients <18 years of age. eGFR results are calculated without a race factor using the 2020 CKD-EPI equation. Careful clinical correlation is recommended, particularly when comparing to results calculated using previous equations. The CKD-EPI equation is less accurate in patients with extremes of muscle mass, extra-renal metabolism of creatine, excessive creatine ingestion, or following therapy that affects renal tubular secretion. Glucose [Mass/Vol] 103 mg/dL High 70 - 99 mg/dL [facility] Interpretation and review of laboratory results Abnormal [facility] Potassium [Moles/Vol] 4.3 mmol/L 3.7 - 5.3 mmol/L [facility] Protein [Mass/Vol] 5.2 g/dL Low 6.4 - 8.3 g/dL [facility] Sodium [Moles/Vol] 132 mmol/L Low 135 - 144 mmol/L [facility] Urea nitrogen (BldV) [Mass/Vol] 6 mg/dL 6 - 20 mg/dL [facility] Protein / Creatinine Ratio, Urineon 05-26-2022 Creatinine, Ur 33.9 mg/dL 28 - 217 mg/dL [facility] Interpretation and review of laboratory results Abnormal [facility] Protein (U) [Mass/Vol] 26 mg/dL [facility] Comment on above: No normal range esta blished. Urine Total Protein Creatinine Ratio 0.77 High 0 - 0.2 [facility] Protein,Tot,[place] 2021 Creatinine [Mass/Vol] 33.9 mg/dL Normal 28.0-217.0 [facility] Comment on above: Performed By: #### Lydia CALDWELL URTPRT #### [address] [address] Theatrical Trouper: Gino Wing MD Tot Prot. Conc. 26 mg/dL Normal [facility] Comment on above: Result Comment: No n ormal range established. Performed By: #### Lydia CALDWELL URTPRT #### [address] [address] Theatrical Trouper: Gino Wing MD TP/Cre Ratio 0.77 High 0.00-0.20 [facility] Comment on above: Performed By: #### Lydia CALDWELL URTPRT #### [address] [address] Theatrical Trouper: Gino Wing MD T.pallidum Ab Screenon 05-26 T.pallidum Ab Screen Non-Reactive Normal NR [facility] Comment on above: Result Comment: T. pallidum antibodies are not detected. There is no serological evidence of infection with T. pallidum (early primary syphilis cannot be excluded). Retest in 2-4 weeks if syphilis is clinically suspect. Performed By: #### Jeremiah JULES CP #### [address] [address] Theatrical Trouper: Gino Wing MD APTTon 05-25-2022 aPTT Coag (Bld) [Time] 24.7 s Normal 20.5-30.5 [facility] Comment on above: Result Comment: IV Heparin Therapy Range: 48.6-77.8 Performed By: #### Jeremiah JULES, CP #### [address] [address] Theatrical Trouper: Gino Wing MD aPTT Coag (Bld) [Time] 24.7 s [facility] Comment on above: IV Heparin Therapy Range: 48.6-77.8 CBCon 05-25-2022 Erythrocyte distribution width (RBC) [Ratio] 12.6 % Normal 11.8-14.4 [facility] Comment on above: Performed By: #### M G, FIB, LD, URI, HAPT, CBC, CP, PTT, PT #### [address] [address] Theatrical Trouper: Gino Wing MD Hematocrit (Bld) [Volume fraction] 31.0 % Low 36.3-47.1 [facility] Comment on above: Performed By: #### M G, FIB, LD, URI, HAPT, CBC, CP, PTT, PT #### [address] [address] Theatrical Trouper: Gino Wing MD Hemoglobin (Bld) [Mass/Vol] 10.4 g/dL Low 11.9-15.1 [facility] Comment on above: Performed By: #### M G, FIB, LD, URI, HAPT, CBC, CP, PTT, PT #### [address] [address] Theatrical Trouper: Gino Wing MD MCH (RBC) [Entitic mass] 29.5 pg Normal 25.2-33.5 [facility] Comment on above: Performed By: #### M G, FIB, LD, URI, HAPT, CBC, CP, PTT, PT #### [address] [address] Theatrical Trouper: Gino Wing MD MCHC (RBC) [Mass/Vol] 33.5 g/dL Normal 28.4-34.8 [facility] Comment on above: Performed By: #### M G, FIB, LD, URI, HAPT, CBC, CP, PTT, PT #### [address] [address] Theatrical Trouper: Gino Wing MD MCV (RBC) [Entitic vol] 87.8 fL Normal 82.6-102.9 [facility] Comment on above: Performed By: #### M G, FIB, LD, URI, HAPT, CBC, CP, PTT, PT #### [address] [id number] Theatrical Trouper: Gino Wing MD NRBC Automated 0.0 per 100 WBC Normal 0.0 [facility] Comment on above: Performed By: #### M G, FIB, LD, URI, HAPT, CBC, CP, PTT, PT #### [address] [address] Theatrical Trouper: Gino Wing MD Platelet mean volume (Bld) [Entitic vol] 9.6 fL Normal 8.1-13.5 [facility] Comment on above: Performed By: #### M G, FIB, LD, URI, HAPT, CBC, CP, PTT, PT #### [address] [address] Theatrical Trouper: Gino Wing MD Platelets (Bld) [#/Vol] 343 10*3/uL Normal 138-453 [facility] Comment on above: Performed By: #### M G, FIB, LD, URI, HAPT, CBC, CP, PTT, PT #### [address] [address] Theatrical Trouper: Gino Wing MD RBC (Bld) [#/Vol] 3.53 10*6/uL Low 3.95-5.11 [facility] Comment on above: Performed By: #### M G, FIB, LD, URI, HAPT, CBC, CP, PTT, PT #### [address] [address] Theatrical Trouper: Gino Wing MD WBC (Bld) [#/Vol] 13.2 10*3/uL High 3.5-11.3 [facility] Comment on above: Performed By: #### M G, FIB, LD, URI, HAPT, CBC, CP, PTT, PT #### [facility] [address] [place] [id number] Theatrical Trouper: Gino Wing MD Hematocrit (Bld) [Volume fraction] 31.0 % Low 36.3 - 47.1 % [facility] Hemoglobin (Bld) [Mass/Vol] 10.4 g/dL Low 11.9 - 15.1 g/dL [facility] Interpretation and review of laboratory results Abnormal [facility] MCH (RBC) [Entitic mass] 29.5 pg 25.2 - 33.5 pg [facility] MCHC (RBC) [Mass/Vol] 33.5 g/dL 28.4 - 34.8 g/dL [facility] MCV (RBC) [Entitic vol] 87.8 fL 82.6 - 102.9 fL [facility] NRBC Automated 0.0 0.0 per 100 WBC [facility] Platelet distribution width (Bld) [Ratio] 12.6 % 11.8 - 14.4 % [facility] Platelet mean volume (Bld) [Entitic vol] 9.6 fL 8.1 - 13.5 fL [facility] Platelets (Bld) [#/Vol] 343 10*3/uL [facility] RBC (Bld) [#/Vol] 3.53 10*6/uL Low 3.95 - 5.1 1 m/uL [facility] WBC (Bld) [#/Vol] 13.2 10*3/uL High [facility] CBC with Auto Differentialon 05-25-2022 Absolute Eos # [facility] Absolute Immature Granulocyte 0[facility]17 [facility] Absolute Lymph # 2.57 [facility] Absolute Gaines # 1.40 High [facility] Basophils (Bld) [#/Vol] 0.03 10*3/uL [facility] Basophils/100 WBC (Bld) 0 % 0 - 2 % [facility] Eosinophils/100 WBC (Bld) 0 % Low 1 - 4 % [facility] Hematocrit (Bld) [Volume fraction] 29.8 % Low 36.3 - 47.1 % [facility] Hemoglobin (Bld) [Mass/Vol] 10.1 g/dL Low 11.9 - 15.1 g/dL [facility] Immature granulocytes/100 WBC (Bld) 1 % High 0 [facility] Interpretation and review of laboratory results Abnormal [facility] Lymphocytes/100 WBC (Bld) 15 % Low 24 - 43 % [facility] MCH (RBC) [Entitic mass] 29.8 pg 25.2 - 33.5 pg [facility] MCHC (RBC) [Mass/Vol] 33.9 g/dL 28.4 - 34.8 g/dL [facility] MCV (RBC) [Entitic vol] 87.9 fL 82.6 - 102.9 fL [facility] Monocytes/100 WBC (Bld) 8 % 3 - 12 % [facility] NRBC Automated 0.0 0.0 per 100 WBC [facility] Platelet distribution width (Bld) [Ratio] 12.7 % 11.8 - 14.4 % [facility] Platelet mean volume (Bld) [Entitic vol] 9.4 fL 8.1 - 13.5 fL [facility] Platelets (Bld) [#/Vol] 350 10*3/uL [facility] RBC (Bld) [#/Vol] 3.39 10*6/uL Low 3.95 - 5.1 1 m/uL [facility] Segmented neutrophils/100 WBC (Bld) 76 % High 36 - 65 % [facility] Segs Absolute 12.92 High [facility] WBC (Bld) [#/Vol] 17.1 10*3/uL High [facility] CBC with Diffon 05-25-2022 Abs. Basophil 0.03 k/uL Normal 0.00-0.20 [facility] Comment on above: Performed By: #### C DP, CP #### [facility] [place] [address] Theatrical Trouper: Gino Wing MD Abs. Eosinophil <0.03 Normal 0.00-0.44 [facility] Comment on above: Performed By: #### C DP, CP #### [address] [address] Theatrical Trouper: Gino Wing MD Abs.Imm.Granulocyte 0.17 k/uL Normal 0.00-0.30 [facility] Comment on above: Performed By: #### C DP, CP #### [address] [address] Theatrical Trouper: Gino Wing MD Abs.Neutrophil (Seg) 12.92 k/uL High 1.50-8.10 [facility] Comment on above: Performed By: #### C DP, CP #### [address] [address] Theatrical Trouper: Gino Wing MD Basophils/100 WBC (Bld) 0 % Normal 0-2 [facility] Comment on above: Performed By: #### C DP, CP #### [address] [address] Theatrical Trouper: Gino Wing MD Eosinophils/100 WBC (Bld) 0 % Low 1-4 [facility] Comment on above: Performed By: #### C DP, CP #### [address] [address] Theatrical Trouper: Gino Wing MD Erythrocyte distribution width (RBC) [Ratio] 12.7 % Normal 11.8-14.4 [facility] Comment on above: Performed By: #### C DP, CP #### [address] [address] Theatrical Trouper: Gino Wing MD Hematocrit (Bld) [Volume fraction] 29.8 % Low 36.3-47.1 [facility] Comment on above: Performed By: #### C DP, CP #### [address] [address] Theatrical Trouper: Gino Wing MD Hemoglobin (Bld) [Mass/Vol] 10.1 g/dL Low 11.9-15.1 [facility] Comment on above: Performed By: #### C DP, CP #### [address] [address] Theatrical Trouper: Gino Wing MD Immature granulocytes/100 WBC (Bld) 1 % High 0 [facility] Comment on above: Performed By: #### C DP, CP #### [address] [address] Theatrical Trouper: Gino Wing MD Lymphocytes (Bld) [#/Vol] 2.57 10*3/uL Normal 1.10-3.70 [facility] Comment on above: Performed By: #### C DP, CP #### [address] [address] Theatrical Trouper: Gino Wing MD Lymphocytes/100 WBC (Bld) 15 % Low 24-43 [facility] Comment on above: Performed By: #### C DP, CP #### [address] [address] Theatrical Trouper: Gino Wing MD MCH (RBC) [Entitic mass] 29.8 pg Normal 25.2-33.5 [facility] Comment on above: Performed By: #### C DP, CP #### [address] [address] Theatrical Trouper: Gino Wing MD MCHC (RBC) [Mass/Vol] 33.9 g/dL Normal 28.4-34.8 [facility] Comment on above: Performed By: #### C DP, CP #### [address] [address] Theatrical Trouper: Gino Wing MD MCV (RBC) [Entitic vol] 87.9 fL Normal 82.6-102.9 [facility] Comment on above: Performed By: #### C DP, CP #### [address] [address] Theatrical Trouper: Gino Wing MD Monocytes (Bld) [#/Vol] 1.40 10*3/uL High 0.10-1.20 [facility] Comment on above: Performed By: #### C DP, CP #### [address] [address] Theatrical Trouper: Gino Wing MD Monocytes/100 WBC (Bld) 8 % Normal 3-12 [facility] Comment on above: Performed By: #### C DP, CP #### [address] [address] Theatrical Trouper: Gino Wing MD Neutrophil (Seg) 76 % High 36-65 [facility] Comment on above: Performed By: #### C DP, CP #### [address] [address] Theatrical Trouper: Gino Wing MD NRBC Automated 0.0 per 100 WBC Normal 0.0 [facility] Comment on above: Performed By: #### C DP, CP #### [address] [address] Theatrical Trouper: Gino Wing MD Platelet mean volume (Bld) [Entitic vol] 9.4 fL Normal 8.1-13.5 [facility] Comment on above: Performed By: #### C DP, CP #### [address] [address] Theatrical Trouper: Gino Wing MD Platelets (Bld) [#/Vol] 350 10*3/uL Normal 138-453 [facility] Comment on above: Performed By: #### C DP, CP #### [facility] [address] [place] [address] Theatrical Trouper: Gino Wing MD RBC (Bld) [#/Vol] 3.39 10*6/uL Low 3.95-5.11 [facility] Comment on above: Performed By: #### C DP, CP #### [facility] [address] [place] [address] Theatrical Trouper: Gino Wing MD WBC (Bld) [#/Vol] 17.1 10*3/uL High 3.5-11.3 [facility] Comment on above: Performed By: #### C DP, CP #### [place] [place] [address] Theatrical Trouper: Gino Wing MD CT HEAD WO CONTRASTon 2021 CT HEAD WO CONTRAST EXAMINATION: CT OF THE HEAD WITHOUT CONTRAST 05/25/2022 8:02 pm TECHNIQUE: CT of the head was performed without the administration of intravenous contrast. Automated exposure control, iterative reconstruction, and/or weight based adjustment of the mA/kV was utilized to reduce the radiation dose to as low as reasonably achievable. COMPARISON: 03/14/2017 HISTORY: ORDERING SYSTEM PROVIDED HISTORY: Eclampsia TECHNOLOGIST PROVIDED HISTORY: Eclampsia Is the patient ?->No Reason for Exam: Eclampsia, seizure today emergency FINDINGS: BRAIN/VENTRICLES: There is no acute intracranial hemorrhage, mass effect or midline shift. No abnormal extra-axial fluid collection. The bhatia-white differentiation is maintained without evidence of an acute infarct. There is no evidence of hydrocephalus. ORBITS: The visualized portion of the orbits demonstrate no acute abnormality. SINUSES: The visualized paranasal sinuses and mastoid air cells demonstrate no acute abnormality. SOFT TISSUES/SKULL: No acute abnormality of the visualized skull or soft tissues. IMPRESSION: No acute intracranial abnormality. Interpreted by: Dale Barcenas MD Signed by: Dale Barcenas MD 05/25/22 Final result Normal [facility] No acute intracrania l abnormality. [facility] EXAMINATION: CT OF THE HEAD WITHOUT CONTRAST 05/25/2022 8:02 pm TECHNIQUE: CT of the head was performed without the administration of intravenous contrast. Automated exposure control, iterative reconstruction, and/or weight based adjustment of the mA/kV was utilized to reduce the radiation dose to as low as reasonably achievable. COMPARISON: 03/14/2017 HISTORY: ORDERING SYSTEM PROVIDED HISTORY: Eclampsia TECHNOLOGIST PROVIDED HISTORY: Eclampsia Is the patient ?->No Reason for Exam: Eclampsia, seizure today emergency FINDINGS: BRAIN/VENTRICLES: There is no acute intracranial hemorrhage, mass effect or midline shift. No abnormal extra-axial fluid collection. The bhatia-white differentiation is maintained without evidence of an acute infarct. There is no evidence of hydrocephalus. ORBITS: The visualized portion of the orbits demonstrate no acute abnormality. SINUSES: The visualized paranasal sinuses and mastoid air cells demonstrate no acute abnormality. SOFT TISSUES/SKULL: No acute abnormality of the visualized skull or soft tissues. [facility] Dale Barcenas MD - 05/25/2022 EXAMINATION: CT OF THE HEAD WITHOUT CONTRAST 05/25/2022 8:02 pm TECHNIQUE: CT of the head was performed without the administration of intravenous contrast. Automated exposure control, iterative reconstruction, and/or weight based adjustment of the mA/kV was utilized to reduce the radiation dose to as low as reasonably achievable. COMPARISON: 03/14/2017 HISTORY: ORDERING SYSTEM PROVIDED HISTORY: Eclampsia TECHNOLOGIST PROVIDED HISTORY: Eclampsia Is the patient ?->No Reason for Exam: Eclampsia, seizure today emergency FINDINGS: BRAIN/VENTRICLES: There is no acute intracranial hemorrhage, mass effect or midline shift. No abnormal extra-axial fluid collection. The bhatia-white differentiation is maintained without evidence of an acute infarct. There is no evidence of hydrocephalus. ORBITS: The visualized portion of the orbits demonstrate no acute abnormality. SINUSES: The visualized paranasal sinuses and mastoid air cells demonstrate no acute abnormality. SOFT TISSUES/SKULL: No acute abnormality of the visualized skull or soft tissues. IMPRESSION: No acute intracranial abnormality. [employer] Phone: Radiology Study observation (narrative) [employer] Phone: CT HEAD WO CONTRASTOrdered B y: Dale Barcenas on 05-25-2022 [facility] [employer] Phone: Comp Metabolic Profon 2021 ALT [Catalytic activity/Vol] 5 U/L Normal 5-33 [facility] Comment on above: Performed By: #### C BC, CP #### [facility] [email or web address] [address] [place] [id number] Theatrical Trouper: Gino Wing MD Bilirubin [Mass/Vol] mg/dL Low 0.3-1.2 [facility] Comment on above: Performed By: #### C BC, CP #### [facility] [email or web address] [address] [place] [address] Theatrical Trouper: Gino Wing MD Albumin [Mass/Vol] 3.1 g/dL Low 3.5-5.2 [facility] Comment on above: Performed By: #### C BC, CP #### [facility] [email or web address] [address] [place] [address] Theatrical Trouper: Gino Wing MD Albumin/Glob Ratio 1.0 Normal 1.0-2.5 [facility] Comment on above: Performed By: #### C BC, CP #### [address] [address] Theatrical Trouper: Gino Wing MD Alkaline Phos 79 U/L Normal 35-104 [facility] Comment on above: Performed By: #### C BC, CP #### [address] [address] Theatrical Trouper: Gino Wing MD Anion gap [Moles/Vol] 12 mmol/L Normal 9-17 [facility] Comment on above: Performed By: #### C BC, CP #### [address] [address] Theatrical Trouper: Gino Wing MD AST [Catalytic activity/Vol] 9 U/L Normal <32 [facility] Comment on above: Performed By: #### C BC, CP #### [facility] [address] [place] [address] Theatrical Trouper: Gino Wing MD Calcium [Mass/Vol] 6.6 mg/dL Low 8.6-10.4 [facility] Comment on above: Performed By: #### C BC, CP #### [facility] [address] [place] [address] Theatrical Trouper: Gino Wing MD Chloride [Moles/Vol] 103 mmol/L Normal 98-107 [facility] Comment on above: Performed By: #### C BC, CP #### [facility] [address] [place] [address] Theatrical Trouper: Gino Wing MD CO2 [Moles/Vol] 19 mmol/L Low 20-31 [facility] Comment on above: Performed By: #### C BC, CP #### [facility] [address] [place] [address] Theatrical Trouper: Gino Wing MD Creatinine [Mass/Vol] 0.46 mg/dL Low 0.50-0.90 [facility] Comment on above: Performed By: #### C BC, CP #### [address] [address] Theatrical Trouper: Gino Wing MD GFR/1.73 sq M.predicted among non-blacks MDRD (S/P/Bld) [Vol rate/Area] mL/min/{1.73_m2} Normal >60 [facility] Comment on above: Result Comment: Effective May 24, 2022 These results are not intended for use in patients <18 years of age. eGFR results are calculated without a race factor using the 2020 CKD-EPI equation. Careful clinical correlation is recommended, particularly when comparing to results calculated using previous equations. The CKD-EPI equation is less accurate in patients with extremes of muscle mass, extra-renal metabolism of creatine, excessive creatine ingestion, or following therapy that affects renal tubular secretion. Performed By: #### C BC, CP #### [facility] [address] [place] [phone] Theatrical Trouper: Gino Wing MD Glucose [Mass/Vol] 118 mg/dL High 70-99 [facility] Comment on above: Performed By: #### C BC, CP #### [facility] [address] [place] [address] Theatrical Trouper: Gino Wing MD Potassium [Moles/Vol] 3.8 mmol/L Normal 3.7-5.3 [facility] Comment on above: Performed By: #### C BC, CP #### [facility] [email or web address] [address] [place] [address] Theatrical Trouper: Gino Wing MD Protein [Mass/Vol] 6.2 g/dL Low 6.4-8.3 [facility] Comment on above: Performed By: #### C BC, CP #### [facility] [address] [place] [address] Theatrical Trouper: Gino Wing MD Sodium [Moles/Vol] 134 mmol/L Low 135-144 [facility] Comment on above: Performed By: #### C BC, CP #### [facility] [email or web address] [address] [place] [address] Theatrical Trouper: Gino Wing MD Urea nitrogen [Mass/Vol] 6 mg/dL Normal 6-20 [facility] Comment on above: Performed By: #### C BC, CP #### [facility] [address] [place] [address] Theatrical Trouper: Gino Wing MD Comprehensive Metabolic Pane [facility] 05-25-2022 Albumin [Mass/Vol] 3.1 g/dL Low 3.5 - 5.2 g/dL [facility] Albumin/Globulin [Mass ratio] 1.1 {ratio} 1 - 2.5 [facility] ALP (Bld) [Catalytic activity/Vol] 82 U/L 35 - 104 U/L [facility] ALT [Catalytic activity/Vol] U/L Low 5 - 33 U/L [facility] Anion gap [Moles/Vol] 13 mmol/L 9 - 17 mmol/L [facility] AST [Catalytic activity/Vol] 17 U/L NINF - 32 U/L [facility] Bilirubin [Mass/Vol] mg/dL Low 0.3 - 1 .2 mg/dL [facility] Calcium [Mass/Vol] 6.6 mg/dL Low 8.6 - 10. 4 mg/dL [facility] Chloride [Moles/Vol] 102 mmol/L 98 - 10 7 mmol/L [facility] CO2 [Moles/Vol] 19 mmol/L Low 20 - 31 mmol/L [facility] Creatinine [Mass/Vol] 0.57 mg/dL 0.5 - 0.9 mg/dL [facility] GFR/1.73 sq M.predicted MDRD (S/P/Bld) [Vol rate/Area] - PINF [facility] Comment on above: Effective May 24, 2022 These results are not intended for use in patients <18 years of age. eGFR results are calculated without a race factor using the 2020 CKD-EPI equation. Careful clinical correlation is recommended, particularly when comparing to results calculated using previous equations. The CKD-EPI equation is less accurate in patients with extremes of muscle mass, extra-renal metabolism of creatine, excessive creatine ingestion, or following therapy that affects renal tubular secretion. Glucose [Mass/Vol] 109 mg/dL High 70 - 99 mg/dL [facility] Interpretation and review of laboratory results Abnormal [facility] Potassium [Moles/Vol] 4.2 mmol/L 3.7 - 5.3 mmol/L [facility] Protein [Mass/Vol] 6.0 g/dL Low 6.4 - 8.3 g/dL [facility] Sodium [Moles/Vol] 134 mmol/L Low 135 - 144 mmol/L [facility] Urea nitrogen (BldV) [Mass/Vol] 6 mg/dL 6 - 20 mg/dL [facility] Albumin [Mass/Vol] 3.1 g/dL Low 3.5 - 5.2 g/dL [facility] Albumin/Globulin [Mass ratio] 1.0 {ratio} 1 - 2.5 [facility] ALP (Bld) [Catalytic activity/Vol] 79 U/L 35 - 104 U/L [facility] ALT [Catalytic activity/Vol] 5 U/L 5 - 33 U/L [facility] Anion gap [Moles/Vol] 12 mmol/L 9 - 17 mmol/L [facility] AST [Catalytic activity/Vol] 9 U/L NINF - 32 U/L [facility] Bilirubin [Mass/Vol] mg/dL Low 0.3 - 1 .2 mg/dL [facility] Calcium [Mass/Vol] 6.6 mg/dL Low 8.6 - 10. 4 mg/dL [facility] Chloride [Moles/Vol] 103 mmol/L 98 - 10 7 mmol/L [facility] CO2 [Moles/Vol] 19 mmol/L Low 20 - 31 mmol/L [facility] Creatinine [Mass/Vol] 0.46 mg/dL Low 0.5 - 0.9 mg/dL [facility] GFR/1.73 sq M.predicted MDRD (S/P/Bld) [Vol rate/Area] - PINF [facility] Comment on above: Effective May 24, 2022 These results are not intended for use in patients <18 years of age. eGFR results are calculated without a race factor using the 2020 CKD-EPI equation. Careful clinical correlation is recommended, particularly when comparing to results calculated using previous equations. The CKD-EPI equation is less accurate in patients with extremes of muscle mass, extra-renal metabolism of creatine, excessive creatine ingestion, or following therapy that affects renal tubular secretion. Glucose [Mass/Vol] 118 mg/dL High 70 - 99 mg/dL [facility] Interpretation and review of laboratory results Abnormal [facility] Potassium [Moles/Vol] 3.8 mmol/L 3.7 - 5.3 mmol/L [facility] Protein [Mass/Vol] 6.2 g/dL Low 6.4 - 8.3 g/dL [facility] Sodium [Moles/Vol] 134 mmol/L Low 135 - 144 mmol/L [facility] Urea nitrogen (BldV) [Mass/Vol] 6 mg/dL 6 - 20 mg/dL [facility] Fibrinogenon 05-25-2022 Fibrinogen 367 mg/dL Normal 140-420 [facility] Comment on above: Performed By: #### C BC, CP #### [facility] [email or web address] [address] [place] [phone] Theatrical Trouper: Gino Wing MD Fibrinogen 367 mg/dL 140 - 420 mg/dL [facility] Haptoglobinon 05-25-2022 Haptoglobin 159 mg/dL Normal 30-200 [facility] Comment on above: Performed By: #### M G, FIB, LD, URI, HAPT, CBC, CP, PTT, PT #### [facility] [email or web address] [address] [place] [address] [phone] Theatrical Trouper: Gino Wing MD Haptoglobin 159 mg/dL 30 - 200 mg/dL [facility] Lactate Dehydrogenaseon LDH [Catalytic activity/Vol] 118 U/L Low 135-214 [facility] Comment on above: Performed By: #### M G, FIB, LD, URI, HAPT, CBC, CP, PTT, PT #### [facility] [email or web address] [facility] [place], [place] [id number] Theatrical Trouper: Gino Wing MD Interpretation and review of laboratory results Abnormal [facility] LD 118 U/L Low 135 - 214 U/L [facility] MAGNESIUM DRIP MONITORon Magnesium [Mass/Vol] 5.0 mg/dL Normal 3.6-6.8 [facility] Comment on above: Performed By: #### U RCX #### [facility] [address] [place] [address] Dr. Elda Velasquez Magnesiumon 10-04-2022 Magnesium [Mass/Vol] 5.0 mg/dL High 1.6-2.6 [facility] Comment on above: Performed By: #### C DHARA, CP #### [facility] [place], [place] [id number] Theatrical Trouper: Gino Wing MD Interpretation and review of laboratory results Abnormal [facility] Magnesium [Mass/Vol] 5.0 mg/dL High 1.6 - 2 .6 mg/dL [facility] No Panel Informationon 05-25 [facility] PTon 05-25-2022 INR Coag (PPP) [Relative time] 0.9 {INR} Normal [facility] Comment on above: Result Comment: Therapeutic Range: Moderate Anticoagulant Intensity: INR = 2.0-3.0 High Anticoagulant Intensity: INR = 2.5-3.5 Performed By: #### Jeremiah JULES, CP #### [facility] [address] [place] [address] [phone] Theatrical Trouper: Gino Wing MD PT Coag (PPP) [Time] 9.4 s Normal 9.1-12.3 [facility] Comment on above: Performed By: #### Jeremiah JULES, CP #### [facility] [place], [place] [phone] Theatrical Trouper: Gino Wing MD Protime-INRon 05-25-2022 INR Coag (Bld) [Relative time] 0.9 {INR} [facility] Comment on above: Therapeutic Range: Moderate Anticoagulant Intensity: INR = 2.0-3.0 High Anticoagulant Intensity: INR = 2.5-3.5 PT Coag (PPP) [Time] 9.4 s [facility] Surgical Pathologyon 022 Surgical Pathology (NOTE) -- Diagnosis -- PLACENTA, DELIVERED: -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 -PLACENTAL DISC IS UNREMARKABLE. Aaron Arteaga M.D. Electronically Signed Out steph/05/27/2022 Clinical Information Pre-op Diagnosis: , ECLAMPSIA, HX PRE-E, HX LAP TAVO/APPY, BMI 41 Operative Findings: PLTCS, F, WT: 4#, 15 OZ, PLACENTA, CORD MEMBRANES Source of Specimen A: PLACENTA, CORD, AND MEMBRANES Gross Description QIAN CLEMENTS, UNDESIGNATED Placenta with attached membranes and umbilical cord. UMBILICAL CORD Length: 10.0 cm Diameter: 1.3 cm True knots: No Number of vessels: 3 Spiraling: Normal Insertion into surface: Central MEMBRANES Color: Purple-bhatia, focally opacified with a circummarginate insertion Meconium staining: No SURFACE Color: Purple-bhatia, with a normal array of surface vessels Subchorionic fibrin: Marginal and involves approximately 10% of the disc MATERNAL SURFACE Cotyledons: -Fragmented/torn: (Approximately 20%) and completeness cannot be determined -Focal lesions: No Placental size: 17.0 x 15.0 x 3.0 cm Shape: Ovoid Weight: 439 grams Number of cassettes: 3cs tm Microscopic Description Umbilical cord: Unremarkable Membranes: Unremarkable Meconium staining: No Infarcts: No Intervillous thrombi: No Subchorionic fibrin: Not significantly increased Villous maturation: Appropriate Nucleated erythrocytes in villous capillaries: Not increased Other: Few microcalcifications SURGICAL PATHOLOGY CONSULTATION Patient Name: QIAN CLEMENTS. [facility] Rec: [id number] Path Number: [id number] [employer] [facility] ANATOMIC PATHOLOGY [address] [place] [phone] [facility] Comment on above: Performed By: #### C BC, CP #### [facility] [address] [place] [address] [phone] Theatrical Trouper: Gino Wing MD T. pallidum Abon 05-25-2022 T. pallidum, IgG Non-Reactive NONREACTIVE [facility] [employer] [facility] Comment on above: T. pallidum antibodies are not detected. There is no serological evidence of infection with T. pallidum (early primary syphilis cannot be excluded). Retest in 2-4 weeks if syphilis is clinically suspect. [facility] [employer] 360 TYPE AND SCREENon 05-25-2022 ABO/Rh Positive [facility] Arm Band Number BE [id number] [facility] Expiration Date 05/28/2022,235 [facility] Type + Screenon 05-25-2022 Type + Screen Sample Expiration 05/28/2022,2359 Arm Band Number BE [id number] ABO/Rh(D) O POSITIVE Antibody Screen NEGATIVE Normal [facility] Comment on above: Performed By: #### T YS #### [facility] [address] [place] [address] Theatrical Trouper: Gino Wing MD US PREG BIOPHY W NON STRESSo n 05-25-2022 US PREG BIOPHY W NON STRESS EXAMINATION: US PREG BIOPHY W NON STRESS HISTORY: Premature uterine contraction COMPARISON: No relevant comparison available. TECHNIQUE: Ultrasound biophysical profile was performed in the radiology department. FINDINGS: BREATHING MOVEMENTS: 2.0 GROSS BODY MOVEMENTS: 2.0 TONE: 2.0 QUALITATIVE AMNIOTIC FLUID VOLUME: 2.0 PRESENTATION: CEPHALIC HEART RATE: 134.7 bpm H.B./min AMNIOTIC FLUID VOLUME: 17.3 cm cm GESTATIONAL AGE: 32 weeks 4 days CONCLUSION: Total biophysical profile score: 8.0 Electronically authenticated by: AARON DELACRUZ Date: 2022-05-25 07:12 Normal [facility] US PREG GROWTHon 05-25-2022 US PREG GROWTH EXAMINATION: US PREG GROWTH HISTORY: CHEST PAIN, UNSPECIFIED COMPARISON: No relevant comparison available. FINDINGS: Heart Rate: 134.7 bpm Amniotic Fluid Volume: 17.3 cm Number: 1.0 Position: CEPHALIC Maximum Vertical Pocket: 3.9 cm cm 6.7 cm cm 2.6 cm cm 4.1 cm cm BIOMETRY: BPD: 8.2 cm cm; 33 weeks 1 days; 61% HC: 29.7 cmcm; 32 weeks 6 days, 21% AC: 30.2 cm cm; 34 weeks 1 days, 89% FL: 6.5 cm cm; 33 weeks 2 days; 59.2 % % EFW: 2255.4 grams, 5 lbs. 0 oz., 76% FL/AC: 21.4 FL/BPD: 78.3 HC/AC: 1.0 GESTATIONAL AGE: Age by EDC: 32 weeks 4 days JULY by EDC: 07/15/2022 Age by US: 33 weeks 3 days JULY by US: 07/09/2022 IMPRESSION: Normal interval growth Electronically authenticated by: AARON DELACRUZ Date: 2022-05-25 07:27 Normal [facility] Uric Acidon 05-25-2022 Urate [Mass/Vol] 3.8 mg/dL Normal 2.4-5.7 [facility] Comment on above: Performed By: #### C BC, CP #### [facility] [address] [place] [address] Theatrical Trouper: Gino Wing MD Urate [Mass/Vol] 3.8 mg/dL 2.4 - 5.7 mg/dL [facility] CBC AUTO DIFFon 05-24-2022 BASO # 0.0 103/ul Normal 0.0-0.1 [facility] Comment on above: Performed By: #### C BC #### [facility] [address] [place] [address] Dr. Elda Velasquez Basophils/100 WBC (Bld) 0.3 % Normal 0.2-2.0 [facility] Comment on above: Performed By: #### C BC #### [facility] [address] [place] [address] Dr. Elda Velasquez EO # 0.0 103/ul Normal 0.0-0.7 [facility] Comment on above: Performed By: #### C BC #### [facility] [address] [place] [address] Dr. Elda Velasquez Eosinophils/100 WBC (Bld) 0.2 % Critically low 0.9-7.0 [facility] Comment on above: Performed By: #### C BC #### [facility] [address] [place] [address] Dr. Elda Velasquez Erythrocyte distribution width (RBC) [Ratio] 12.3 % Normal 11.0-15.0 [facility] Comment on above: Performed By: #### C BC #### [facility] [address] [place] [address] Dr. Elda Velasquez Hematocrit (Bld) [Volume fraction] 31.5 % Critically low 36.0-48.0 [facility] Comment on above: Performed By: #### C BC #### [facility] [address] [place] [address] Dr. Elda Velasquez Hemoglobin (Bld) [Mass/Vol] 10.2 g/dL Critically low 12.0-16.0 [facility] Comment on above: Performed By: #### C BC #### [facility] [address] [place] [address] Dr. Elda Velasquez IG # 0.16 10e3/ul Critically high 0.00-0.03 [facility] Comment on above: Performed By: #### C BC #### [facility] [address] [place] [address] Dr. Elda Velasquez IG % 1.3 % Critically high 0.0-0.5 [place] Comment on above: Performed By: #### C BC #### [facility] [address] [place] [address] Dr. Elda Velasquez LYMPH # 2.1 103/ul Normal 1.2-3.8 [facility] Comment on above: Performed By: #### C BC #### [facility] [address] [place] [address] Dr. Elda Velasquez Lymphocytes/100 WBC (Bld) 17.1 % Critically low 20.5-60.0 [facility] Comment on above: Performed By: #### C BC #### [facility] [address] [place] [address] Dr. Elda Velasquez MANUAL DIFF REQ NO Normal [place] Comment on above: Performed By: #### C BC #### [facility] [address] [place] [address] Dr. Elda Velasquez MCH (RBC) [Entitic mass] 29.0 pg Normal 26.7-34.0 [facility] Comment on above: Performed By: #### C BC #### [facility] [address] [place] [address] Dr. Elda Velasquez MCHC (RBC) [Mass/Vol] 32.4 g/dL Normal 29.9-35.2 [facility] Comment on above: Performed By: #### C BC #### [facility] [address] [address] [address] Elda Velasquez MCV (RBC) [Entitic vol] 89.5 fL Normal 81.0-99.0 [facility] Comment on above: Performed By: #### C BC #### [facility] [address] [place] [address] Dr. Elda Velasquez MONO # 0.9 103/ul Critically high 0.3-0.8 [place] Comment on above: Performed By: #### C BC #### [facility] [address] [place] [address] Dr. Elda Velasquez Monocytes/100 WBC (Bld) 7.1 % Normal 1.7-12.0 [facility] Comment on above: Performed By: #### C BC #### [facility] [address] [place] [address] Dr. Elda Velasquez NEUT # 8.9 103/ul Critically high 1.4-6.5 [place] Comment on above: Performed By: #### C BC #### [facility] [address] [place] [address] Dr. Elda Velasquez Neutrophils/100 WBC (Bld) 74.0 % Normal 43.0-75.0 [facility] Comment on above: Performed By: #### C BC #### [facility] [address] [place] [address] Dr. Elda Velasquez Platelet mean volume (Bld) [Entitic vol] 9.4 fL Critically low 9.5-13.5 [facility] Comment on above: Performed By: #### C BC #### [facility] [address] [place] [address] Dr. Elda Velasquez PLT 340 103/ul Normal 150-450 [facility] Comment on above: Performed By: #### C BC #### [facility] [address] [place] [address] Dr. Elda Velasquez RBC 3.52 106/ul Critically low 4.20-5.40 [facility] Comment on above: Performed By: #### C BC #### [facility] [address] [place], [place] [address] Dr. Elda Velasquez WBC 12.0 103/ul Critically high 4.0-11.0 [facility] Comment on above: Performed By: #### C BC #### [facility] [address] [place], [place] [address] Dr. Elda Velasquez CTA CHEST WO W CONon 022 CTA CHEST WO W CON INDICATION: CHEST PAIN, UNSPECIFIED EXAMINATION: CTA CHEST WITH CONTRAST TECHNIQUE: Helically acquired images were obtained of the chest following IV contrast. A radiation dose optimization technique was used for this scan. Post-processing of the angiographic images was performed, with multiplanar reformation and Maximum intensity projection (MIP) reconstruction. IV Contrast dosage and agent: 100 ccs Omnipaque 350 COMPARISON: None. FINDINGS: BOLUS: The quality of the contrast bolus is excellent. AORTA: No aneurysm, dissection or stenosis detected. GREAT VESSELS: Patent. PULMONARY ARTERIES: No pulmonary emboli are identified. LUNGS, PLEURAL SPACES, TRACHEA AND MAINSTEM BRONCHI: The lungs are clear. There is no pneumothorax. The trachea and mainstem bronchi are clear. THYROID: No thyroid gland mass or lesion is identified. HEART AND PERICARDIUM: The heart size is normal. A pericardial effusion is not identified. No coronary artery calcifications are observed. MEDIASTINUM AND ROD: No mediastinal or hilar adenopathy. The esophagus is unremarkable. A small to moderate-sized hiatal hernia is observed. AXILLAE: There is no adenopathy or stranding of fat planes. UPPER ABDOMEN: No acute pathology. BONES: Osseous structures are age-appropriate. IMPRESSION: 1. No pulmonary emboli detected. Electronically authenticated by: MARGOT LAU Date: 2022-05-24 19:33 Normal [facility] LDHon 05-24-2022 LDH 90 U/L Normal 81-234 [facility] Comment on above: Performed By: #### U JUAN F, LDH, CMP #### [facility] [address] [address] [address] Elda Velasquez PROF 14(COMP METB)on 022 Albumin [Mass/Vol] 2.3 g/dL Critically low 3.4-5.0 [facility] [place] Comment on above: Performed By: #### U JUAN F, LDH, CMP #### [facility] [address] [place] [address] Dr. Elda Velasquez Albumin/Globulin [Mass ratio] 0.6 {ratio} Normal [facility] Comment on above: Performed By: #### U JUAN F, LDH, CMP #### [facility] [address] [address] [address] Elda Velasquez ALP [Catalytic activity/Vol] 87 U/L Normal 46-116 [facility] Comment on above: Performed By: #### U JUAN F, LDH, CMP #### [facility] [address] [place] [address] Dr. Elda Velasquez ALT [Catalytic activity/Vol] 11 U/L Critically low 14-59 [facility] Comment on above: Performed By: #### U JUAN F, LDH, CMP #### [facility] [address] [address] [address] Elda Velasquez Anion gap [Moles/Vol] 13.3 mmol/L Normal [facility] Comment on above: Performed By: #### U JUAN F, LDH, CMP #### [facility] [address] [place] [address] Dr. Elda Velasquez AST [Catalytic activity/Vol] 5 U/L Critically low 15-37 [facility] Comment on above: Performed By: #### U UJAN F, LDH, CMP #### [facility] [address] [address] [address] Elda Velasquez Bilirubin [Mass/Vol] 0.1 mg/dL Critically low 0.2-1.0 [facility] Comment on above: Performed By: #### U JUAN F, LDH, CMP #### [facility] [address] [place] [address] Dr. Elda Velasquez Calcium [Mass/Vol] 8.3 mg/dL Critically low 8.5-10.1 [facility] [place] Comment on above: Performed By: #### U JUAN F, LDH, CMP #### [facility] [address] [address] [address] Elda Velasquez Chloride [Moles/Vol] 106 mmol/L Normal 98-107 [facility] Comment on above: Performed By: #### U JUAN F, LDH, CMP #### [facility] [address] [address] [address] Elda Velasquez CO2 [Moles/Vol] 22.5 mmol/L Normal 21.0-32.0 [facility] Comment on above: Performed By: #### U JUAN F, LDH, CMP #### [facility] [address] [address] [address] Elda Velasquez Creatinine [Mass/Vol] 0.72 mg/dL Normal 0.55-1.02 [facility] Comment on above: Performed By: #### U JUAN F, LDH, CMP #### [facility] [address] [address] [address] Elda Velasquez EGFR-AF CITIZEN [place] >60 Normal >=60 [facility] Comment on above: Performed By: #### U JUAN F, LDH, CMP #### [facility] [address] [address] [address] Elda Velasquez EGFR-NON AF CITIZEN [place] >60 Normal >=60 [facility] Comment on above: Performed By: #### U JUAN F, LDH, CMP #### [facility] [address] [address] [address] Elda Velasquez Globulin (S) [Mass/Vol] 3.7 g/dL Normal [facility] Comment on above: Performed By: #### U JUAN F, LDH, CMP #### [facility] [address] [address] [address] Elda Velasquez Glucose [Mass/Vol] 135 mg/dL Critically high 74-106 T [facility] Comment on above: Performed By: #### U JUAN F, LDH, CMP #### [facility] [address] [address] [address] Elda Velasquez Potassium [Moles/Vol] 3.8 mmol/L Normal 3.5-5.1 [facility] Comment on above: Performed By: #### U JUAN F, LDH, CMP #### [facility] [address] [address] [address] Elda Velasquez Protein [Mass/Vol] 6.0 g/dL Critically low 6.4-8.2 [facility] Comment on above: Performed By: #### U JUAN F, LDH, CMP #### [facility] [address] [place] [address] Dr. Elda Velasquez Sodium [Moles/Vol] 138 mmol/L Normal 136-145 [facility] Comment on above: Performed By: #### U JUAN F, LDH, CMP #### [facility] [address] [place] [address] Dr. Elda Velasquez Urea nitrogen [Mass/Vol] 6.0 mg/dL Critically low 7.0-18.0 [facility] Comment on above: Performed By: #### U JUAN F, LDH, CMP #### [facility] [address] [place] [address] Dr. Elda Velasquez Urea nitrogen/Creatinine [Mass ratio] 8.3 mg/mg Normal [facility] Comment on above: Performed By: #### U JUAN F, LDH, CMP #### [facility] [address] [place] [address] Dr. Elda Velasquez UA (CLEAN/CATCH) FLUE BLOWER/MICRO I F IND.on 05-24-2022 Bilirubin Ql (U) Negative Normal NEGATIVE [facility] Comment on above: Performed By: #### U RCX #### [facility] [address] [place] [address] Dr. Elda Velasquez Clarity (U) CLEAR Normal CLEAR [facility] Comment on above: Performed By: #### U RCX #### [facility] [address] [place] [address] Dr. Elda Velasquez Color (U) LT. YELLOW Normal YELLOW [facility] Comment on above: Performed By: #### U RCX #### [facility] [address] [place] [address] Dr. Elda Velasquez Glucose Ql (U) Negative Normal NEGATIVE [facility] Comment on above: Performed By: #### U RCX #### [facility] [address] [address] [address] Elda Velasquez Hemoglobin Ql (U) Negative Normal NEGATIVE [facility] Comment on above: Performed By: #### U RCX #### [facility] [address] [address] [address] Elda Velasquez Ketones Ql (U) Negative Normal NEGATIVE [facility] Comment on above: Performed By: #### U RCX #### [facility] [address] [address] [address] Elda Velasquez LEUKOCYTES Negative Normal NEGATIVE [facility] Comment on above: Performed By: #### U RCX #### [facility] [address] [address] [address] Elda Velasquez Nitrite Ql (U) Negative Normal NEGATIVE [facility] Comment on above: Performed By: #### U RCX #### [facility] [address] [address] [address] Elda Velasquez pH (U) 7.0 [pH] Normal 5-9 [facility] Comment on above: Performed By: #### U RCX #### [facility] [address] [place] [address] Dr. Elda Velasquez SPEC GRAVITY 1.010 Normal 1.005-<=1.025 [place] Comment on above: Performed By: #### U RCX #### [facility] [address] [place] [address] Dr. Elda Velasquez UA PROTEIN Negative Normal NEGATIVE/ TRACE [facility] Comment on above: Performed By: #### U RCX #### [facility] [address] [address] [address] Elda Velasquez UR MICRO IND NOT INDICATED Normal [facility] Comment on above: Performed By: #### U RCX #### [facility] [address] [place] [address] Dr. Elda Velasquez Urobilinogen Qn (U) 0.2 {Caroline'U}/dL Normal 0.2 - 1. 0 [facility] Comment on above: Performed By: #### U RCX #### [facility] [address] [address] [address] Elda Velasquez URIC ACID SERUMon 05-24-2022 Urate [Mass/Vol] 3.8 mg/dL Normal 2.6-6.0 [facility] Comment on above: Performed By: #### U JUAN F, LDH, CMP #### [facility] [address] [address] [address] Elda Velasquez US PREG CERVICAL LENGTHon US PREG CERVICAL LENGTH EXAMINATION: US PREG CERVICAL LENGTH HISTORY: Premature uterine contraction COMPARISON: No relevant comparison available. FINDINGS: position: Cephalic presentation, longitudinal lie Amniotic fluid volume: Subjectively normal Cervix: 4.5 cm], closed Heart rate: 144 bpm IMPRESSION: Closed cervix measuring 4.5 cm Electronically authenticated by: AARON DELACRUZ Date: 2022-05-24 11:52 Normal [facility] CULTURE URINEon 05-23-2022 CULTURE URINE Culture Observations : LIGHT GROWTH OF MIXED GENITAL J CARLOS. NO POTENTIAL PATHOGENS SEEN. Normal [facility] Comment on above: Performed By: #### U RCX #### [facility] [address] [address] [address] Elda Velasquez UA (CLEAN/CATCH) FLUE BLOWER/MICRO I F IND.on 05-23-2022 Bilirubin Ql (U) Negative Normal NEGATIVE [facility] Comment on above: Performed By: #### U RCX #### [facility] [address] [address] [address] Elda Velasquez Clarity (U) SL CLOUDY Abnormal CLEAR [facility] Comment on above: Performed By: #### U RCX #### [facility] [address] [address] [address] Elda Velasquez Color (U) LT. YELLOW Normal YELLOW [facility] Comment on above: Performed By: #### U RCX #### [facility] [address] [address] [address] Elda Velasquez Glucose Ql (U) Negative Normal NEGATIVE [facility] Comment on above: Performed By: #### U RCX #### [facility] [address] [address] [address] Elda Velasquez Hemoglobin Ql (U) TRACE-INTACT Abnormal NEGATIVE [facility] Comment on above: Performed By: #### U RCX #### [facility] [address] [address] [address] Elda Velasquez Ketones Ql (U) Negative Normal NEGATIVE [facility] Comment on above: Performed By: #### U RCX #### [facility] [address] [address] [address] Elda Velasquez LEUKOCYTES TRACE Abnormal NEGATIVE [facility] Comment on above: Performed By: #### U RCX #### [facility] [address] [place] [address] Dr. Elda Velasquez Nitrite Ql (U) Positive Abnormal NEGATIVE [facility] Comment on above: Performed By: #### U RCX #### [facility] [address] [place] [address] Dr. Elda Velasquez pH (U) 7.0 [pH] Normal 5-9 [facility] Comment on above: Performed By: #### U RCX #### [facility] [address] [place] [address] Dr. Elda Velasquez SPEC GRAVITY 1.015 Normal 1.005-<=1.025 [place] Comment on above: Performed By: #### U RCX #### [facility] [address] [place] [address] Dr. Elda Velasquez UA PROTEIN Negative Normal NEGATIVE/ TRACE [facility] Comment on above: Performed By: #### U RCX #### [facility] [address] [place] [address] Dr. Elda Velasquez UR MICRO IND INDICATED Normal [facility] Comment on above: Performed By: #### U RCX #### [facility] [address] [place] [address] Dr. Elda Velasquez Urobilinogen Qn (U) 1.0 {Caroline'U}/dL Normal 0.2 - 1. 0 [facility] Comment on above: Performed By: #### U RCX #### [facility] [address] [place] [address] Dr. Elda Velasquez URINE MICROSCOPIC ONLYon BACTERIA SMALL Abnormal NONE SEEN [facility] Comment on above: Performed By: #### U RCX #### [facility] [address] [place] [address] Dr. Elda Velasquez Bacteria identified Cx Nom (U) INDICATED Normal [facility] Comment on above: Performed By: #### U RCX #### [facility] [address] [place] [address] Dr. Elda Velasquez CAST NONE SEEN Normal NONE SEEN [facility] Comment on above: Performed By: #### U RCX #### [facility] [address] [place] [address] Dr. Elda Velasquez Crystals LM Nom (Urine sed) NONE SEEN Normal NONE SEEN [facility] Comment on above: Performed By: #### U RCX #### [facility] [address] [place] [address] Dr. Elda Velasquez Epithelial cells LM Ql (Urine sed) MODERATE Abnormal NONE SEEN /RARE [facility] Comment on above: Performed By: #### U RCX #### [facility] [address] [place] [address] Dr. Elda Velasquez MUCOUS TRACE Abnormal NONE SEEN [facility] Comment on above: Performed By: #### U RCX #### [facility] [address] [place] [address] Dr. Elda Velasquez RBC 2-5 Abnormal 0-2 [facility] Comment on above: Performed By: #### U RCX #### [facility] [address] [place] [address] Dr. Elda Velasquez WBC 2-5 Abnormal NONE SEEN [facility] Comment on above: Performed By: #### U RCX #### [facility] [address] [place] [address] Dr. Elda Velasquez US PREG ANATOMY SINGLEon US PREG ANATOMY SINGLE EXAMINATION: US PREG ANATOMY SINGLE HISTORY: anatomy study COMPARISON: No relevant comparison available. TECHNIQUE: Transabdominal sonographic examination was performed for obstetrical and evaluation. FINDINGS: Number: 1 Heart Rate: 151.0 bpm H.B. /min Amniotic Fluid Volume: Subjectively normal Placental Location: Posterior with lower margin 2.8 cm from os. Cervix Length: 4.9 cm, closed. ANATOMY: Normal Structures -cerebellum, choroid plexus, cisterna magna, lateral cerebral ventricles, orbits, midline falx, hard palate, four-chamber heart, stomach, kidneys, bladder, umbilical cord insertion into abdomen, three-vessel cord, cervical spine, thoracic spine, lumbar spine, sacral spine, right upper extremity, left upper extremity, right lower extremity, left lower extremity. SUBOPTIMALLY SEEN: Cardiac outflow tracts due to position. ABNORMALITIES: None BIOMETRY: BPD: 7.9 cm 31 weeks 4 days HC: 29.2 cm 32 weeks 1 days AC: 27.5 cm 31 weeks 4 days FL: 6.0 cm 31 weeks 2 days EFW:1784.6 grams; 93% FL/AC: 21.8 FL/BPD: 76.2 HC/AC: 1.1 GESTATIONAL AGE: Age by EDC: 29 weeks 5 days JULY by EDC: 07/15/2022 Age by current US: 31 weeks 5 days JULY by current US: 07/01/2022 IMPRESSION: 1. Single live intrauterine with growth detailed above. 2. Suboptimal visualization of the cardiac outflow tracts due to position. 3. Posterior, low-lying placenta. Electronically authenticated by: PILAR DOBSON Date: 2022-05-04 16:28 Normal [facility] Microscopic UrinalysisOrdere d By: Pilar Garcia on 09-19-2019 - [employer] Work Phone: Amorphous, UA NOT REPORTED None [employer] [facility] Work Phone: Bacteria, UA 1+ Abnormal None [employer] Work Phone: Casts UA NOT REPORTED /LPF [employer] Work Phone: Crystals UA CALCIUM OXALATE Abnormal None /HPF [employer] [facility] Work Phone: Crystals UA 1+ Abnormal None /HPF [employer] Work Phone: Epithelial Cells UA 10 TO 20 /HPF [employer] Work Phone: Interpretation and review of laboratory results Abnormal [employer] [facility] Work Phone: Mucus, UA NOT REPORTED None [employer] [facility] Work Phone: Other Observations UA NOT REPORTED NOT REQ. [employer] Work Phone: RBC, UA 2 TO 5 [employer] [facility] Work Phone: Renal Epithelial, Urine NOT REPORTED 0 /HPF [employer] [facility] Work Phone: Trichomonas, UA NOT REPORTED None [employer] [facility] Work Phone: WBC, UA 0 TO 2 0 /HPF [employer] [facility] Work Phone: Yeast, UA NOT REPORTED None [employer] Work Phone: UrinalysisOrdered By: Pilar Garcia on 09-19-2019 Bilirubin Urine Negative NEGATIVE [employer] [facility] Work Phone: Color, UA YELLOW YELLOW [employer] Work Phone: Glucose, Ur Negative NEGATIVE [employer] Work Phone: Interpretation and review of laboratory results Abnormal [employer] Work Phone: Ketones Ql (U) Negative NEGATIVE [employer] Work Phone: Leukocyte esterase Test strip Ql (U) Negative NEGATIVE [employer] Work Phone: Nitrite, Urine Negative NEGATIVE [employer] Work Phone: pH, UA 6.0 [employer] Work Phone: Protein, UA TRACE Abnormal NEGATIVE [employer] Work Phone: Specific [place], UA 1.025 [employer] Work Phone: Turbidity UA HAZY Abnormal CLEAR [employer] Work Phone: Urinalysis Comments [employer] Work Phone: Urine Hgb TRACE Abnormal NEGATIVE [employer] Work Phone: Urobilinogen, Urine Normal Normal [facility] Work Phone: CBC Auto Differentialon 04-22 Basophils (Bld) [#/Vol] 0.00 10*3/uL [place], [place] Basophils/100 WBC (Bld) 0 % 0 - 2 % [place] Differential Type YES [place] Eosinophils (Bld) [#/Vol] 0.10 10*3/uL [place] Eosinophils/100 WBC (Bld) 1 % 0 - 5 % [place] Erythrocyte distribution width (RBC) [Ratio] 13.6 % 12.1 - 15.2 % [place] Hematocrit (Bld) [Volume fraction] 37.7 % 36 - 46 % [place] Hemoglobin (Bld) [Mass/Vol] 12.8 g/dL 12 - 16 g/dL [place] Interpretation and review of laboratory results Abnormal [place] Lymphocytes (Bld) [#/Vol] 1.90 10*3/uL [place] Lymphocytes/100 WBC (Bld) 20 % 15 - 40 % [place] MCH (RBC) [Entitic mass] 29.1 pg 26 - 34 pg [place] MCHC (RBC) [Mass/Vol] 34.0 g/dL 31 - 37 g/dL [place] MCV (RBC) [Entitic vol] 85.7 fL 80 - 100 fL [place] Monocytes (Bld) [#/Vol] 0.40 10*3/uL [place] Monocytes/100 WBC (Bld) 5 % 4 - 8 % [place] Platelet mean volume (Bld) [Entitic vol] NOT REPORTED 6 - 12 fL [place] Platelets (Bld) [#/Vol] NOT REPORTED [place] Platelets (Bld) [#/Vol] 378 10*3/uL [place] RBC (Bld) [#/Vol] 4.40 10*6/uL 4 - 5.2 m/uL [place], [place] RBC morphology finding Nom (Bld) NOT REPORTED [place] Segmented neutrophils/100 WBC (Bld) 74 % 47 - 75 % [place] Segs Absolute 7.20 [place] WBC (Bld) [#/Vol] NOT REPORTED per 100 WBC [place] WBC (Bld) [#/Vol] 9.7 10*3/uL [place] WBC Morphology NOT REPORTED [place] Comprehensive Metabolic Pane l w/ Reflex to MGon 05-06-2019 Albumin [Mass/Vol] 3.9 g/dL 3.5 - 5.2 g/dL [place] Albumin/Globulin [Mass ratio] NOT REPORTED [place] ALP [Catalytic activity/Vol] 84 U/L 35 - 104 U/L [place] ALT [Catalytic activity/Vol] 14 U/L 5 - 33 U/L [place] Anion gap [Moles/Vol] 13 mmol/L 9 - 17 mmol/L [place] AST [Catalytic activity/Vol] 14 U/L <32 [place] Bilirubin Ql (U) 0.34 mg/dL 0.3 - 1.2 mg/dL [place] Bun/Cre Ratio 16 [place] Calcium [Mass/Vol] 9.6 mg/dL 8.6 - 10. 4 mg/dL [place] Chloride [Moles/Vol] 102 mmol/L 98 - 10 7 mmol/L [place] CO2 [Moles/Vol] 23 mmol/L 20 - 31 mmol/L [place] Creatinine [Mass/Vol] 0.61 mg/dL 0.5 - 0.9 mg/dL [place] GFR >60 >60 mL/min [place] GFR Non- >60 >60 mL/min [place] GFR/1.73 sq M predicted among non-blacks MDRD (S/P/Bld) [Vol rate/Area] NOT REPORTED [place] GFR/1.73 sq M predicted among non-blacks MDRD (S/P/Bld) [Vol rate/Area] [place] Comment on above: Average GFR for 20-2 9 years old: 116 mL/min/1.73sq m Chronic Kidney Disease: <60 mL/min/1.73sq m Kidney failure: <15 mL/min/1.73sq m eGFR calculated using average adult body mass. Additional eGFR calculator available at: http://www.Mingyian/multiple_crcl_2012.htm Glucose [Mass/Vol] 101 mg/dL High 70 - 99 mg/dL [place], [place] Interpretation and review of laboratory results Abnormal [place], [place] Potassium [Moles/Vol] 4.2 mmol/L 3.7 - 5.3 mmol/L [place] Protein [Mass/Vol] 6.8 g/dL 6.4 - 8.3 g/dL [place] Sodium [Moles/Vol] 138 mmol/L 135 - 144 mmol/L [place] Urea nitrogen [Mass/Vol] 10 mg/dL 6 - 20 mg/dL [place] Otheron 05-06-2019 Immature granulocytes (Bld) [#/Vol] NOT REPORTED 0 % [place] Sedimentation Rateon 019 Sed Rate 23 mm 0 - 30 mm [place] Strep Screen Group A Throato n 05-06-2019 S. pyogenes Ag IA Ql (Unsp spec) Rapid Strep A negative. A negative Rapid Group A Strep Screen result does not rule out the possibility of Group A Streptococci in the specimen. A Group A Strep DNA test is available upon request. [place] Special Requests NOT REPORTED [place] Specimen Description .THROAT [place] Urinalysis, reflex to micros copicon 05-06-2019 Bilirubin Urine Negative NEGATIVE [facility] [place] [place] Color, UA YELLOW YELLOW [place] Glucose, Ur Negative NEGATIVE [place] Ketones Ql (U) Negative NEGATIVE [place], [place] Leukocyte esterase Test strip Ql (U) Negative NEGATIVE [facility] [place], [place] Nitrite, Urine Negative NEGATIVE [facility] [place], [place] pH, UA 7.0 [facility], [place] Protein (U) [Mass/Vol] Negative NEGATIVE [facility] [place], [place] Specific [place], UA 1.015 [facility] [place], [place] Turbidity UA CLEAR CLEAR [facility] [place], [place] Urinalysis Comments [facility], [place] Urine Hgb Negative NEGATIVE [facility] [place], [place] Urobilinogen, Urine Normal Normal [facility], [place] Vital Signs Date Time Vital Sign Value Performing Clinician Olei pavan 03-07-2023 08:52-0400 Body height 162.6 cm Jeronimo Fofana DO Work Phone: [facility] [employer] 03-07-2023 08:52-0400 Body mass index (BMI) [Ratio] 41.2 kg/m2 Jeronimo Ffoana DO Work Phone: [facility] [employer] 03-07-2023 08:52-0400 Body weight 108.86 kg Jeronimo Fofana DO Work Phone: [facility] [employer] 03-07-2023 08:52-0400 Diastolic blood pressure 84 mm[Hg] Jeronimo Fofana DO Work Phone: [facility] [employer] 03-07-2023 08:52-0400 Respiratory rate 20 /min Jeronimo Fofana DO Work Phone: [facility] [employer] 03-07-2023 08:52-0400 SaO2% (BldA) [Mass fraction] 98 % Jeronimo Fofana DO Work Phone: [facility] [employer] 03-07-2023 08:52-0400 Systolic blood pressure 101 mm[Hg] Jeronimo Fofana DO Work Phone: [facility] [employer] 03-07-2023 08:51-0400 Body temperature 98.29 [degF] Jeronimo Fofana DO Work Phone: [facility] [employer] 03-07-2023 08:51-0400 Heart rate 96 /min Jeronimo Fofana DO Work Phone: [facility] [employer] 11-14-2022 08:08-0400 Body height 160 cm Maonj Flores MD Work Phone: [employer] 11-14-2022 08:08-0400 Body mass index (BMI) [Ratio] 41.98 kg/m2 Manoj Flores MD Work Phone: [employer] 11-14-2022 08:08-0400 Body temperature 98.2 [degF] Manoj Flores MD Work Phone: [employer] 11-14-2022 08:08-0400 Body weight 107.5 kg Manoj Flores MD Work Phone: [employer] 11-14-2022 08:08-0400 Diastolic blood pressure 95 mm[Hg] Manoj Flores MD Work Phone: [employer] 11-14-2022 08:08-0400 Heart rate 87 /min Manoj Flores MD Work Phone: [employer] 11-14-2022 08:08-0400 Respiratory rate 20 /min Manoj Flores MD Work Phone: [employer] 11-14-2022 08:08-0400 SaO2% (BldA) [Mass fraction] 98 % Manoj Flores MD Work Phone: [employer] 11-14-2022 08:08-0400 Systolic blood pressure 141 mm[Hg] Manoj Flores MD Work Phone: [employer] 05-29-2022 12:29-0400 Diastolic blood pressure 80 mm[Hg] Tommy Cherry MD Work Phone: [employer] 05-29-2022 12:29-0400 Heart rate 94 /min Tommy Cherry MD Work Phone: [employer] 05-29-2022 12:29-0400 Respiratory rate 16 /min Tommy Cherry MD Work Phone: [employer] 05-29-2022 12:29-0400 Systolic blood pressure 132 mm[Hg] Tommy Cherry MD Work Phone: [employer] 05-29-2022 08:52-0400 Body temperature 98.01 [degF] Tommy Cherry MD Work Phone: [employer] 05-29-2022 08:52-0400 SaO2% (BldA) [Mass fraction] 98 % Tommy Cherry MD Work Phone: [employer] 09-19-2019 17:05-0500 Diastolic blood pressure 76 mm[Hg] Pilar Garcia MD Work Phone: [employer] Work Phone: 09-19-2019 17:05-0500 Heart rate 88 /min Pilar Garcia MD Work Phone: [employer] Work Phone: 09-19-2019 17:05-0500 Respiratory rate 20 /min Pilar Garcia MD Work Phone: [employer] Work Phone: 09-19-2019 17:05-0500 SaO2% (BldA) [Mass fraction] 99 % Pilar Garcia MD Work Phone: [employer] Work Phone: 09-19-2019 17:05-0500 Systolic blood pressure 136 mm[Hg] Pilar Garcia MD Work Phone: [employer] Work Phone: 09-19-2019 15:21-0500 Body mass index (BMI) [Ratio] 41.54 kg/m2 Pilar Garcia MD Work Phone: [employer] Work Phone: 09-19-2019 15:21-0500 Body temperature 98.01 [degF] Pilar Garcia MD Work Phone: [employer] Work Phone: 09-19-2019 15:21-0500 Body weight 109.77 kg Pilar Garcia MD Work Phone: [employer] Work Phone: 05-06-2019 07:59-0400 BMI (Body Mass Index) 38.45 kg/m2 Hollie Flood [facility], [place] 05-06-2019 07:59-0400 Body Temperature 98.49 [degF] Hollie Flood [facility], [place] 05-06-2019 07:59-0400 Body weight 101.61 kg [facility] [place] 05-06-2019 07:59-0400 BP Diastolic 66 mm[Hg] [facility] [place] 05-06-2019 07:59-0400 BP Systolic 126 mm[Hg] [facility] [place] 05-06-2019 07:59-0400 Pulse (Heart Rate) 83 /min Hollie Flood [place], [place] 05-06-2019 07:59-0400 Pulse Oximetry 97 % [facility] [place] 05-06-2019 07:59-0400 Respiratory Rate 20 /min Hollie Flood [place], [place] Encounters Encounter Date Encounter Type Care Provider Facility Start: 08-17-2023 End: 08-17-2023 ambulatory KENIA PIEDRA Not Available Start: 03-13-2023 End: 03-17-2023 Evaluation and management of inpatient MANOJ MIKE Facility:[facility] Start: 03-12-2023 End: 03-13-2023 Emergency department patient visit [facility] Start: 03-07-2023 Emergency department patient visit [facility] Start: 03-07-2023 End: 03-07-2023 Emergency department patient visit Jeronimo Fofana DO Work Phone: [facility] ED Comment on above: Left flank pain (Monserrat almas Dx) Start: 01-03-2023 End: 01-04-[address] BLAS RICKS . Facility: Start: 11-14-2022 End: 11-14-2022 Emergency department patient visit [facility] Start: 11-14-2022 End: 11-14-2022 Emergency department patient visit Manoj Flores MD Work Phone: [facility] ED Comment on above: Acute pharyngitis, u nspecified etiology (Primary Dx) Start: 08-09-2022 End: 08-09-2022 Emergency department patient visit RACQUEL SIMPSON [facility] Start: 05-25-2022 End: 05-29-2022 Evaluation and management of inpatient RACQUEL SIMPSON [facility] Start: 05-25-2022 End: 05-29-2022 Evaluation and management of inpatient Tommy Cherry MD Work Phone: [facility] Post Comment on above: PLTCS 05/25/22 F Apg Wt 4#15 (Primary Dx) Start: 05-23-2022 End: 05-25-[address] BLAS RICKS . Facility:[facility] Start: 05-07-[address] BLAS RICKS . Facili ty:[facility] Start: 05-04-2022 End: 05-05-[address] BLAS RICKS . Facility:[facility] Start: 06-08-2021 End: 06-08-2021 Subsequent hospital visit by physician [facility] Covid19 Pat Screening Schedule MW PRE ADMIT Comment on above: Sinus congestion; Cough; Fever, unspecified fever cause Start: 09-30-2020 End: 09-30-2020 Subsequent hospital visit by physician Racquel Simpson [facility] Comment on above: Suspected COVID-19 v irus infection Start: 07-30-2020 End: 07-30-2020 Subsequent hospital visit by physician Racquel Simpson [facility] Comment on above: Suspected COVID-19 v irus infection Start: 09-19-2019 End: 09-19-2019 Emergency department patient visit Pilar Garcia MD Work Phone: [facility] ED Comment on above: Lower abdominal pain (Primary Dx); Complication of in second trimester Start: 05-06-2019 End: 05-06-2019 Emergency department patient visit Hollie Pinzon Chela Work Phone: [facility] ED Comment on above: Strain of lumbar reg ion, initial encounter (Primary Dx); Morning sickness; Acute pharyngitis, unspecified etiology Procedures Date Procedure Procedure Detail Performing Clinician Start: 03-15-2023 Antibody screen MANOJ SEPULVEDA Comment on above: Order Comment: Speci men Type: BLOOD SPECIMENOrdering Facility: [facility] Address: [address] [place] [address] [place] [id number] Performed By: #### T SPN ####CC MAIN BLOOD BANKCLIA [id number] [facility] [id number] [place] Start: 03-07-2023 Comprehensive metabo lic panel Jeronimo Vega Ernestina DO Work Phone: Start: 03-07-2023 Urinalysis microscopic only Jeronimo Ferrari Ernestina DO Work Phone: Start: 03-07-2023 Urnls dip stick/tabl et rgnt auto w/o microscopy Jeronimo Ferrari Ernestina DO Work Phone: Start: 11-14-2022 Iaadiadoo streptococ cus group a Manoj Flores MD Work Phone: Start: 05-26-2022 Protein total xcpt refractometry urine Latoya Cherry DO Work Phone: Start: 05-26-2022 Comprehensive metabo lic panel Latoya Cherry DO Work Phone: Start: 05-25-2022 Comprehensive metabo lic panel Lynn Nelson DO Work Phone: Start: 05-25-2022 T. PALLIDUM AB Tammy Cherry MD Work Phone: Start: 05-25-2022 Ct head/brain w/o co ntrast material Lynn Chelsey Nelson DO Work Phone: Start: 05-25-2022 Antibody screen Tommy haile MD Work Phone: Start: 05-25-2022 End: 05-25-2022 section Tammy Cherry MD Work Phone: Start: 05-25-2022 Comprehensive metabo lic panel Alejandrina Zacarias DO Work Phone: Start: 05-25-2022 Blood typing serologic abo Alejandrina Zacarias DO Work Phone: Start: 05-25-2022 SURGICAL PATHOLOGY REPORT Tammy Cherry MD Work Phone: Start: 09-19-2019 Urinalysis microscopic only Pilar Garcia MD Work Phone: Start: 09-19-2019 Urnls dip stick/tabl et rgnt auto w/o microscopy Pilar Garcia MD Work Phone: Start: 05-06-2019 Urnls dip stick/tabl et rgnt auto w/o microscopy Hollie York Work Phone: Start: 05-06-2019 Blood count complete auto&auto difrntl wbc Hollie York Work Phone: Start: 05-06-2019 Sedimentation rate r bc automated Hollie York Work Phone: Start: 05-06-2019 Iaadiadoo streptococ cus group a Hollie York Work Phone: Plan of Treatment Date Care Activity Detail Author Start: 06-01-2023 Depression Screen Depression Screen [facility] Start: 03-22-2023 Influenza vaccination Flu vaccine (# 1) [facility] [employer] Start: 03-08-2023 End: 03-07-2024 US RETROPERITONEAL COMPLETE US RETROPERITONEAL COMPLETE Imaging STAT Left flank pain Expected: 03/08/2023, Expires: 03/07/2024 [facility] [employer] Comment on above: Expected: 03/08/2023 , Expires: 03/07/2024 Start: 2022 Screening for malign ant neoplasm of cervix [facility] [employer] Start: 06-01-2022 End: 06-01-2022 ambulatory 06/01/2022 Visit Obstetrics and Gynecology Kesha Pritchett, DO [address] [place] [address] [facility] 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 [place] Start: 03-22-2022 Influenza vaccination Flu vaccine (# 1) [facility] Start: 04-22-2021 Influenza vaccination Flu vaccine (# 1) [facility] Work Phone: Start: 04-22-2020 Influenza vaccination Flu vaccine (# 1) [place] Start: 04-22-2019 Influenza vaccination Flu vaccine (# 1) [place] Start: 2013 Cervical cancer screen Cervical canc er screen [place] Start: 2013 Screening for malign ant neoplasm of cervix [facility] Start: 2011 DTaP/Tdap/Td vaccine (1 - Tdap) DTaP/Tdap/Td vaccine (1 - Tdap) [facility] Start: 2010 Hepatitis C screening Hepatitis C sc reen [facility] Start: 2007 HIV screen HIV screen [place] Start: 2007 HIV screening HIV screen [facility] Start: 2007 HPV vaccine (1 - Fem angelica 3-dose series) HPV vaccine (1 - Female 3-dose series) [place] Start: 2005 Varicella Vaccine (1 of 2 - 13+ 2-dose series) Varicella Vaccine (1 of 2 - 13+ 2-dose series) [place] Start: 2004 COVID-19 Vaccine (1) COVID-19 Vaccin e (1) [facility] [employer] Phone: Start: 2004 Depression Screen Depression Screen [facility] Start: 2003 DTaP/Tdap/Td vaccine (1 - Tdap) DTaP/Tdap/Td vaccine (1 - Tdap) [facility] [employer] Phone: Start: 2003 DTaP/Tdap/Td vaccine (5 - Tdap) DTaP/Tdap/Td vaccine (5 - Tdap) [facility] Start: 1993 Varicella vaccine (1 of 2 - 2-dose childhood series) Varicella vaccine (1 of 2 - 2-dose childhood series) [facility] Start: 02-06-1993 COVID-19 Vaccine (#1) COVID-19 Vacci ne (#1) [facility] Start: 1992 Hepatitis C screening Hepatitis C sc armando [place] End: 09-30-2020 COVID-19 COVID-19 Lab Routine Suspected COVID-19 virus infection 1 Occurrences starting 09/30/2020 until 09/30/2020 [place] Comment on above: 1 Occurrences starti ng 09/30/2020 until 09/30/2020 COVID-19 [place] End: 06-08-2021 COVID-19 COVID-19 Lab Routine Sinus congestion Cough Fever, unspecified fever cause 1 Occurrences starting 06/08/2021 until 06/08/2021 [facility]: Comment on above: 1 Occurrences starti ng 06/08/2021 until 06/08/2021 End: 07-30-2020 Covid-19 Ambulatory Covid-19 Ambulatory Lab Routine Suspected Covid-19 Virus Infection 1 Occurrences starting 07/30/2020 until 07/30/2020 [place] Comment on above: 1 Occurrences starti ng 07/30/2020 until 07/30/2020 Covid-19 Ambulatory Covid-19 Amb ulatory Lab Routine Suspected COVID-19 virus infection 07/30/2020 10:34 AM EST [place] End: 05-06-2019 CRP [Mass/Vol] C-reactive protein Lab Routine One Time for 1 Occurrences starting 05/06/2019 until 05/06/2019 [place] Comment on above: One Time for 1 Occur rences starting 05/06/2019 until 05/06/2019 CRP [Mass/Vol] C-reactive prote in Lab STAT 05/06/2019 8:32 AM EDT [place] End: 05-29-2022 DRUG SCREEN MULTI URINE DRUG SCREEN MULTI URINE Lab Add-On One Time for 1 Occurrences starting 05/29/2022 until 05/29/2022 [employer] Phone: Comment on above: One Time for 1 Occur rences starting 05/29/2022 until 05/29/2022 Oxygen therapy [[facility] Data Set] Initiate Oxygen Therapy Protocol Respiratory Care Routine Daily until discontinued starting 05/25/2022 [employer] Phone: Comment on above: Daily until disconti nued starting 05/25/2022 Spirometry panel Incentive kavitha metry Respiratory Care Routine Every 2hr while awake until discontinued starting 05/25/2022 [employer] Work Phone: Comment on above: Every 2hr while awak e until discontinued starting 05/25/2022 End: 03-07-2023 US RETROPERITONEAL COMPLETE US RETROPERITONEAL COMPLETE Imaging Routine Once for 1 Occurrences starting 03/07/2023 until 03/07/2023 [employer] Work Phone: Comment on above: Once for 1 Occurrenc es starting 03/07/2023 until 03/07/2023 Immunizations Immunization Date Immunization Notes Care Provider Abner kimbrough 06-01-2022 influenza, injectabl e, quadrivalent, preservative free Manoj Flores MD Work Phone: [employer] 05-29-2022 measles, mumps and rubella virus vaccine Tommy Cherry MD Work Phone: [employer] 05-25-2022 diphtheria, tetanus toxoids and acellular pertussis vaccine, unspecified formulation Tommy Cherry MD Work Phone: [employer] Work Phone: 07-21-2018 influenza, injectabl e, quadrivalent, preservative free Manoj Flores MD Work Phone: [employer] Work Phone: 05-18-2017 influenza, injectabl e, quadrivalent, preservative free Manoj Flores MD Work Phone: [employer] Work Phone: 05-25-2016 influenza virus vaccine, unspecified formulation Manjo Flores MD Work Phone: [employer] Work Phone: 05-27-2015 influenza virus vaccine, whole virus Manoj Flores MD Work Phone: [employer] Work Phone: 05-22-2015 influenza virus vaccine, unspecified formulation Manoj Flores MD Work Phone: [employer] Work Phone: 06-30-2014 influenza virus vaccine, unspecified formulation Manoj Flores MD Work Phone: [employer] Work Phone: 01-18-2014 tuberculin skin test ; purified protein derivative solution, intradermal Hollie York [facility] 06-15-2013 influenza virus vaccine, whole virus Manoj Flores MD Work Phone: [facility] [employer] Work Phone: 05-19-2011 influenza virus vaccine, unspecified formulation Manoj Flores MD Work Phone: [facility] [employer] Work Phone: 04-14-2005 measles, mumps and rubella virus vaccine Manoj Flores MD Work Phone: [facility] Work Phone: 11-25-1993 diphtheria, tetanus toxoids and acellular pertussis vaccine, unspecified formulation Manoj Flores MD Work Phone: [facility] Work Phone: 11-25-1993 haemophilus influenz ae type b vaccine, conjugate unspecified formulation Manoj Flores MD Work Phone: [facility] Work Phone: 11-25-1993 hepatitis B vaccine, pediatric or pediatric/adolescent dosage Manoj Flores MD Work Phone: [employer] [facility] Work Phone: 11-25-1993 measles, mumps and rubella virus vaccine Manoj Flores MD Work Phone: [employer] [facility] Work Phone: 11-25-1993 trivalent poliovirus vaccine, live, oral Manoj Flores MD Work Phone: [employer] Work Phone: 03-12-1993 diphtheria, tetanus toxoids and pertussis vaccine Manoj Flores MD Work Phone: [employer] Work Phone: 03-12-1993 haemophilus influenz ae type b vaccine, conjugate unspecified formulation Manoj Flores MD Work Phone: [employer] Work Phone: 03-12-1993 hepatitis B vaccine, pediatric or pediatric/adolescent dosage Manoj Flores MD Work Phone: [employer] Work Phone: 1992 diphtheria, tetanus toxoids and pertussis vaccine Manoj Flores MD Work Phone: [employer] Work Phone: 1992 haemophilus influenz ae type b vaccine, conjugate unspecified formulation aMnoj Flores MD Work Phone: [employer] Work Phone: 1992 hepatitis B vaccine, pediatric or pediatric/adolescent dosage Manoj Flores MD Work Phone: [employer] Work Phone: 1992 trivalent poliovirus vaccine, live, oral Manoj Flores MD Work Phone: [employer] Work Phone: 1992 diphtheria, tetanus toxoids and pertussis vaccine Manoj Flores MD Work Phone: [employer] Work Phone: 1992 haemophilus influenz ae type b vaccine, conjugate unspecified formulation Manoj Flores MD Work Phone: [employer] Work Phone: 1992 trivalent poliovirus vaccine, live, oral Manoj Flores MD Work Phone: [employer] Work Phone: Payers Date Payer Category Payer Unknown [employer] [place] MEDICA[employer] xxxxxxxxxxx 2015-Present [phone] CLAIMS DEPARTMENT [address] [place] [address] xxxxxxxxxxx [id number] 1992 Unknown [id number] 1992 Unknown [id number] 1992 Unknown [id number] 1992 Unknown [id number] 1992 Unknown [id number] 1992 Unknown [id number] 1992 Unknown [id number] 1992 Unknown [id number] 1992 Unknown [id number] 1992 Unknown [id number] 1959 Self-pay 1959 Unknown [id number] 1959 Unknown [id number] Social History Date Type Detail Facility Start: 07-30-2020 End: 03-07-2023 Tobacco smoking status WAIS Former smoker [facility] End: 02-15-2022 History of tobacco use Cigarette Smoker [facility] [place] Start: 07-30-2020 End: 03-07-2023 Cigarettes smoked current (pack per day) - Reported [facility] [employer] [place] Start: 07-30-2020 End: 03-07-2023 Tobacco use and exposure Never used [employer] [facility] [place] Start: 07-30-2020 End: 03-07-2023 Alcohol intake Current non-drinker of alcohol (finding) [employer] Phone: Start: 07-14-2015 Alcohol Comment less than once a wee k [facility] [place] [place] Start: 1992 Sex Assigned At Not on file [facility] [employer] [place] Start: 05-06-2019 Alcohol intake No [employer] [facility] [place] End: 02-15-2022 History of tobacco use Current smoker [employer] Phone: Start: 11-04-2022 End: 11-14-2022 Exposure to SARS-CoV-2 (event) Not sure [employer] Phone: Start: 03-07-2023 History SDOH Alcohol Frequency 1 [employer] Start: 03-07-2023 History SDOH Alcohol Std Drinks 0 [employer] Clinical Notes 09-19-2019 to 03-17-2023 Discharge InstructionsAttachmentsTralarry Cherry MD - 05/29/2022 2:59 AM Ben Armas MD - 05/28/2022 2:43 AM Ash Rubio DO - 05/27/2022 12:19 AM EDTDischaaustin Instructions Note Date & Type Note Facility 03-17-2023 Note HNO ID: [id number] Author: Domonique Kaplan Service: ? Author Type: Christmas Bell Ringer Type: Plan of Care Filed: 03/17/2023 2:18 PM Note Text: PHARMACY BEDSIDE DELIVERY SERVICE Patient Name: Qian Clements The marked outpatient medications were Filled at: [facility] and delivered to the patient's bedside to Patient Medication List START taking these medications amoxicillin-clavulanic acid 875-125 mg per tablet Commonly known as: AUGMENTIN Take 1 tablet by mouth every 12 hours for 11 doses. DELIVERED CLASSIC 28 mg iron- 800 mcg tab(s) Generic drug: multivitamin Take 1 tablet by mouth once daily. DELIVERED CONTINUE taking these medications albuterol HFA 90 mcg/actuation inhaler Commonly known as: PROVENTIL HFA, VENTOLIN HFA Inhale 2 Puffs as instructed three times daily as needed (FOR SOB, WHEEZING OR COUGH). ondansetron 4 mg tablet Commonly known as: ZOFRAN TABLET ORAL TylenoL 325 mg tablet Generic drug: acetaminophen You might also be taking other medications not listed above. If you have questions about any of your other medications, talk to the person who prescribed them or your Primary Care Provider. Domonique Kaplan PAGER: [phone] March 17, 2023 2:17 PM [facility] 03-17-2023 Note HNO ID: [id number] Author: Kristin Wang RPh Service: Pharmacy Author Type: Pharmacist Type: Plan of Care Filed: 03/17/2023 12:41 PM Note Text: DISCHARGE MEDICATION REVIEW BY PHARMACY Patient Name: Qian Clements Account #: Data Unavailable Admission Date: 03/13/2023 Date of Contact: March 17, 2023 Time of Contact: 12:41 PM Medication list was reviewed by a Pharmacist for drug interactions or drug related problems:Yes Below is a summary of pharmacist recommendations discussed with LIP: No Recommendations at this time from Discharge Medication List. Kristin Wang RPh March 17, 2023 12:41 PM [id number] Medication List START taking these medications amoxicillin-clavulanic acid 875-125 mg per tablet Commonly known as: AUGMENTIN Take 1 tablet by mouth every 12 hours for 11 doses. multivitamin 28 mg iron- 800 mcg tab(s) Commonly known as: CLASSIC Take 1 tablet by mouth once daily. CONTINUE taking these medications albuterol HFA 90 mcg/actuation inhaler Commonly known as: PROVENTIL HFA, VENTOLIN HFA Inhale 2 Puffs as instructed three times daily as needed (FOR SOB, WHEEZING OR COUGH). ondansetron 4 mg tablet Commonly known as: ZOFRAN TABLET ORAL TylenoL 325 mg tablet Generic drug: acetaminophen Where to Get Your Medications These medications were sent to [facility] [address] [place] [address] Hours: Tuesday-Tuesday 7am-8pm, Tuesday, Tuesday and Holidays 9am-5pm amoxicillin-clavulanic acid 875-125 mg per tablet multivitamin 28 mg iron- 800 mcg tab(s) [facility] 03-16-2023 Note HNO ID: [id number] Author: Manoj Ramos MD Service: General Internal Medicine Author Type: Physician Type: Progress Notes Filed: 03/16/2023 5:27 PM Note Text: Internal Medicine [place] progress note After 5 PM on weekdays and after 3 PM on weekends page Night Team SERVICE DATE: 03/16/2023 SERVICE TIME: 8:26 AM INTERVAL EVENTS: Patient reports some pain but improved from before. Got lidocaine patch but it did not help, but she did not need IV morphine. Plan for the Day - Continue abx - follow cultures - get Abd/Pel MRI Vital Signs BP 113/65 Pulse 88 Temp 36.9 ?C (98.4 ?F) (Oral) Resp 18 Ht 162.6 cm (5' 4 ) Wt 112.7 kg (248 lb 7.3 oz) LMP (LMP Unknown) SpO2 98% BMI 42.65 kg/m? PHYSICAL EXAMINATION: GENERAL: Alert, no distress, cooperative SKIN: Skin color, texture, turgor normal. LUNGS: Lungs clear to auscultation. No wheezes or crepitations. CARDIAC: normal S1 and S2; no rubs, murmurs, or gallops BACK: Bilateral CVA tenderness ABDOMEN: Abdomen soft, non-tender. BS normal. EXTREMITIES: No deformities, edema, clubbing or skin discoloration. NEURO: Alert, oriented X 3. Laboratory Values CBC, Coags, BMP, Mg, Phos Recent Labs 03/16/23 0925 03/15/23 1510 03/14/23 0954 WBC 8.78 10.48 11.23* HB 10.7* 10.4* 10.4* HCT 33.1* 32.4* 31.0* PLT 444* 450* 415* NA 136 136 134* K 3.9 4.3 3.7 CHLOR 102 103 102 CO2 20* 21* 19* BUN 10 11 7 CREAT 0.71 0.77 0.75 GLUC 125* 102* 131* CA 9.3 9.5 9.2 MG 1.9 2.1 1.9 P 3.7 3.5 2.6* Liver Function, Amylase, AND Lipase Recent Labs 03/16/23 0925 03/15/23 1510 03/14/23 0954 03/13/23 1456 ALB 3.6* 3.7* 3.6* -- LACT -- -- -- 1.8 Cardiac Enzymes Estimated Creatinine Clearance: 142.5 mL/min (based on SCr of 0.71 mg/dL). Intake/Output Intake/Output Summary (Last 24 hours) at 03/16/2023 1314 Last data filed at 03/16/2023 1017 Gross per 24 hour Intake 1160 ml Output 0 ml Net 1160 ml MEDICATIONS: Current Facility-Administered Medications Medication Dose Route Frequency NaCl 0.9% iv flush bag 20 mL INTRAVENOUS PRN polyethylene glycol 3350 17 g packet 17 g ORAL DAILY PRN acetaminophen 650 mg tab(s) (TYLENOL) 650 mg ORAL q 8 H PRN ondansetron (PF) 4 mg injection (ZOFRAN) 4 mg INTRAVENOUS q 6 H PRN diphenhydrAMINE 25 mg (BENADRYL) 25 mg ORAL/FEEDING TUBE AT BEDTIME PRN multivitamin 28 mg iron- 800 mcg 1 tablet (CLASSIC ) 1 tablet ORAL DAILY lidocaine 4 % 1 Patch (SALONPAS) 1 Patch TRANSDERMAL AT BEDTIME And lidocaine patch - REMOVE OTHER DAILY And lidocaine - VERIFY PATCH OTHER q 8 H ampicillin-sulbactam iv piggyback 3 g in NaCl 0.9% 100 mL Vial-Bag (UNASYN) 3 g INTRAVENOUS q 6 H Diagnostic tests reviewed for today's visit: Most recent labs Most recent imaging Assessment AND Plan Qian Clements is a 32 year old female w/ PMH Adult onset Stills Disease, Benign liver angioma s/p resection, iron deficiency anemia, asthma, appendectomy, cholecystectomy, and 4 prior pregnancies (1 ), and is currently 8 weeks who presented to the ED on 03/13/2023 for left flank pain. #Back pain/Flank pain Assessment: She has flank pain that started on the left side but is now radiating to the right side as well. With leukocytosis, and WBC/leukesterase in her urine, along with recent hematuria, this is concerning for possible nephrolithiasis and possible pyelonephritis. Differential diagnosis includes flare of her Stills disease, urethritis/cystitis due to possible gonococcal infection (given knee joint pain, and pyuria, less likely though as it may have been a dirty catch), possible uterine fibroids/cysts causing torsion, ectopic , or MSK pain. - nomral lactate - Ferritin level elevated from baseline 4 yrs ago (45 to 149) but not outside normal range, could be due to inflammation, less likely Stills flare - Urine culture: normal urogenital j carlos - Abdominal US clear - repeat Crp elevated but downtrending, CBC shows normalized WBC. Plan: - Abdominal MRI today - unasyn 3 mg given lactobacillus growing in urine culture - zofran for n/v associated with pain - Follow CBCs - Follow blood and urine cultures - PO benadryl requested by patient - acetaminophen 650 mg PRN and morphine (got 2x 2mg injections for pain over night) #Spotting/Vaginal Bleeding Assessment: Patient reports spotting and vaginal bleeding starting 03/15/2023 with an AMET this am. Still has flank pain, but improving pain. - Transvaginal and Transabdominal US both clear. Plan: - OBGYN to sign off, f/u with local outpatient OB #Adult onset Stills Disease Assessment: This could be a possible flare of AOSD given fevers and joint pain. However no rash. Will need to rule out infection first. Ferritin level elevated from baseline 4 yrs ago (45 to 149) but not outside normal range, could be due to inflammation, less likely stills flare Plan: - Consider (more content not included)... [facility] 03-15-2023 Note HNO ID: [id number] Author: Domonique Kaplan Service: ? Author Type: Christmas Bell Ringer Type: Plan of Care Filed: 03/15/2023 12:18 PM Note Text: Insurance investigation completed Patient has active prescription insurance: Yes - Patient's insurance is in-network with [facility] Insurance loaded into [place]: Yes Test claim was completed to verify insurance is active: Successful Any questions, please contact your medication access services librarian. Pager #: [phone] [facility] 03-15-2023 Note HNO ID: [id number] Author: Manoj Ramos MD Service: General Internal Medicine Author Type: Physician Type: Progress Notes Filed: 03/15/2023 2:05 PM Note Text: Internal Medicine [place] progress note After 5 PM on weekdays and after 3 PM on weekends page Night Team SERVICE DATE: 03/15/2023 SERVICE TIME: 8:26 AM INTERVAL EVENTS: - Pt reports pain is still bad, and on left side again - Having nausea and vomiting, unable to keep food down - had spotting overnight - got tylenol and morphine for pain which helped - blood cultures not growing anything - urine cultures growing lactobacillus Plan for the Day - Continue abx - follow cultures - pelvic ultrasound - get Abd/Pel MRI Vital Signs BP 134/64 Pulse 95 Temp 36.9 ?C (98.4 ?F) (Oral) Resp 17 Ht 162.6 cm (5' 4 ) Wt 112.7 kg (248 lb 7.3 oz) LMP (LMP Unknown) SpO2 98% BMI 42.65 kg/m? PHYSICAL EXAMINATION: GENERAL: Alert, no distress, cooperative SKIN: Skin color, texture, turgor normal. LUNGS: Lungs clear to auscultation. No wheezes or crepitations. CARDIAC: normal S1 and S2; no rubs, murmurs, or gallops BACK: Bilateral CVA tenderness ABDOMEN: Abdomen soft, non-tender. BS normal. EXTREMITIES: No deformities, edema, clubbing or skin discoloration. NEURO: Alert, oriented X 3. Laboratory Values CBC, Coags, BMP, Mg, Phos Recent Labs 03/14/23 0954 03/13/23 1251 WBC 11.23* 14.26* HB 10.4* 10.5* HCT 31.0* 32.4* PLT 415* 378 NA 134* 136 K 3.7 3.3* CHLOR 102 103 CO2 19* 19* BUN 7 8 CREAT 0.75 0.77 GLUC 131* 126* CA 9.2 8.8 MG 1.9 -- P 2.6* -- Liver Function, Amylase, AND Lipase Recent Labs 03/14/23 0954 03/13/23 1456 03/13/23 1306 03/13/23 1251 TPROT -- -- -- 6.5 ALB 3.6* -- -- 3.6* ALT -- -- -- 22 AST -- -- -- 16 ALKPHOS -- -- -- 101 TBILI -- -- -- 0.2 LIPASE -- -- -- 19 LACT -- 1.8 1.2 -- Cardiac Enzymes Estimated Creatinine Clearance: 134.9 mL/min (based on SCr of 0.75 mg/dL). Intake/Output Intake/Output Summary (Last 24 hours) at 03/15/2023 0806 Last data filed at 03/15/2023 0206 Gross per 24 hour Intake 525 ml Output 0 ml Net 525 ml MEDICATIONS: Current Facility-Administered Medications Medication Dose Route Frequency NaCl 0.9% iv flush bag 20 mL INTRAVENOUS PRN polyethylene glycol 3350 17 g packet 17 g ORAL DAILY PRN acetaminophen 650 mg tab(s) (TYLENOL) 650 mg ORAL q 8 H PRN ondansetron (PF) 4 mg injection (ZOFRAN) 4 mg INTRAVENOUS q 6 H PRN diphenhydrAMINE 25 mg (BENADRYL) 25 mg ORAL/FEEDING TUBE AT BEDTIME PRN multivitamin 28 mg iron- 800 mcg 1 tablet (CLASSIC ) 1 tablet ORAL DAILY iv contrast (radiology procedure) INTRAVENOUS DIRECTED PRN ampicillin-sulbactam iv piggyback 1.5 g in NaCl 0.9% 100 mL Vial-Bag (UNASYN) 1.5 g INTRAVENOUS q 6 H Diagnostic tests reviewed for today's visit: Most recent labs Most recent imaging Component Latest Ref Rng AND Units 03/13/2023 Ferritin 14.7 - 205.1 ng/mL 149.0 Assessment AND Plan Qian Clements is a 32 year old female w/ PMH Adult onset Stills Disease, Benign liver angioma s/p resection, iron deficiency anemia, asthma, appendectomy, cholecystectomy, and 4 prior pregnancies (1 ), and is currently 8 weeks who presented to the ED on 03/13/2023 for left flank pain. #Back pain/Flank pain Assessment: She has flank pain that started on the left side but is now radiating to the right side as well. With leukocytosis, and WBC/leukesterase in her urine, along with recent hematuria, this is concerning for possible nephrolithiasis and possible pyelonephritis. Differential diagnosis includes flare of her Stills disease, urethritis/cystitis due to possible gonococcal infection (given knee joint pain, and pyuria, less likely though as it may have been a dirty catch), possible uterine fibroids/cysts causing torsion, ectopic , or MSK pain. - nomral lactate - Ferritin level elevated from baseline 4 yrs ago (45 to 149) but not outside normal range, could be due to inflammation, less likely Stills flare - Urine culture: normal urogenital j carlos - Abdominal US clear Plan: - consult to OBGYN - Abdominal MRI without contrast pending OBGYN exam - unasyn given lactobacillus growing in urine culture - zofran for n/v associated with pain - Follow CBCs - Follow blood and urine cultures - PO benadryl requested by patient - acetaminophen 650 mg PRN and morphine (got 2x 2mg injections for pain over night) - Repeat CRP - repeat UA #Spotting/Vaginal Bleeding Assessment: Patient reports spotting and vaginal bleeding starting 03/15/2023 with an AMET this am. Still has flank pain, but improving pain. Plan: - consult to OBGYN to see patient; plan pelvic ultrasound #Adult onset Stills Disease Assessment: This could be a possible flare of AOSD given fevers and joint pain. However no rash. Will need to rule out infection first. Ferritin (more content not included)... [facility] 03-14-2023 Note HNO ID: [id number] Author: Robyn Borrego RN Service: ? Author Type: Registered Nurse Type: Nursing Progress Note Filed: 03/14/2023 6:24 PM Note Text: 1814 Patient staes she is having spotting. Jeremiah Cantu notified and states to monitor. S. Salima WINKLER [facility] 03-14-2023 Note HNO ID: [id number] Author: Kristin Wang kelsie Service: Pharmacy Author Type: Pharmacist Type: Plan of Care Filed: 03/14/2023 12:02 PM Note Text: PHARMACY MEDICATION REVIEW Patient Name: Qian Clements : 1990 The following medications were updated within the [facility] medication list: Medications ADDED to [facility] medication list vitamin 1 tablet PO daily Acetaminophen 650 mg PO Q6hr prn pain, fever Ondansetron 4 mg PO q6hr prn N/V Medications CHANGED on [facility] medication list none Medications REMOVED from [facility] medication list Pulmicort Flexhaler Colchicine Omeprazole Prednisone Additional comments: patient confirmed stopped taking dextroamphetamine-amphetamine. The below information represents the best possible medication history: Yes Medication history completed by: Pharmacist: Kristin Wang RPh Source of history: Patient: Reliability of source: Appears reliable, clearly identified: Medication name, Medication dose, Medication route, and Medication frequency and Pharmacy records: [facility] Medication nonadherence identified: No barriers noted Reconciliation completed: Yes Completed by: Kristin Wang PharmD Discussed with LIP, plans to add vitamin based on updated medication history Patient interested in Bedside Delivery Services or using OP Pharmacy at discharge? Unable to assess Preferred outpatient pharmacy: [facility] [address] [place] [id number] [address] [phone] Allergies: Ciprofloxacin Vomiting Codeine Vomiting Comment:Convulsions per mother Phenergan [Prometha* Vomiting Comment:Convulsions per mother Prior to Admission Medications Prescriptions Last Dose Informant Patient Reported? Taking? acetaminophen (TYLENOL) 325 mg tablet Yes Yes Sig: Take 650 mg by mouth every 6 hours as needed for pain or fever (specify). albuterol HFA (PROVENTIL HFA, VENTOLIN HFA) 90 mcg/actuation inhaler No Yes Sig: Inhale 2 Puffs as instructed three times daily as needed (FOR SOB, WHEEZING OR COUGH). ondansetron (ZOFRAN) 4 mg tablet Yes Yes Sig: Take 4 mg by mouth every 6 hours as needed for nausea/vomiting. vit/iron fum/folic ac ( TABLET ORAL) Yes Yes Sig: Take 1 tablet by mouth once daily. Facility-Administered Medications: None Kristin Wang RPh 03/14/2023 [id number] [facility] 03-14-2023 Note HNO ID: [id number] Author: Manoj Ramos MD Service: General Internal Medicine Author Type: Physician Type: Progress Notes Filed: 03/14/2023 3:07 PM Note Text: Internal Medicine [place] progress note After 5 PM on weekdays and after 3 PM on weekends page Night Team SERVICE DATE: 03/14/2023 SERVICE TIME: 8:26 AM INTERVAL EVENTS: - Pt reports pain is better today, but now on the right side more - Had an episode of nausea overnight but zofran helped - got tylenol and morphine for pain which helped Plan for the Day - Continue abx - follow cultures - f/u abdominal US Vital Signs BP 132/77 Pulse 96 Temp 36.6 ?C (97.9 ?F) (Oral) Resp 17 Ht 162.6 cm (5' 4 ) Wt 112.7 kg (248 lb 7.3 oz) LMP (LMP Unknown) SpO2 98% BMI 42.65 kg/m? PHYSICAL EXAMINATION: GENERAL: Alert, no distress, cooperative SKIN: Skin color, texture, turgor normal. LUNGS: Lungs clear to auscultation. No wheezes or crepitations. CARDIAC: normal S1 and S2; no rubs, murmurs, or gallops BACK: Bilateral CVA tenderness ABDOMEN: Abdomen soft, non-tender. BS normal. EXTREMITIES: No deformities, edema, clubbing or skin discoloration. NEURO: Alert, oriented X 3. Laboratory Values CBC, Coags, BMP, Mg, Phos Recent Labs 03/13/23 1251 WBC 14.26* HB 10.5* HCT 32.4* PLT 378 NA 136 K 3.3* CHLOR 103 CO2 19* BUN 8 CREAT 0.77 GLUC 126* CA 8.8 Liver Function, Amylase, AND Lipase Recent Labs 03/13/23 1456 03/13/23 1306 03/13/23 1251 TPROT -- -- 6.5 ALB -- -- 3.6* ALT -- -- 22 AST -- -- 16 ALKPHOS -- -- 101 TBILI -- -- 0.2 LIPASE -- -- 19 LACT 1.8 1.2 -- Cardiac Enzymes Estimated Creatinine Clearance: 131.4 mL/min (based on SCr of 0.77 mg/dL). Intake/Output Intake/Output Summary (Last 24 hours) at 03/14/2023 0826 Last data filed at 03/14/2023 0806 Gross per 24 hour Intake -- Output 0 ml Net 0 ml MEDICATIONS: Current Facility-Administered Medications Medication Dose Route Frequency NaCl 0.9% iv flush bag 20 mL INTRAVENOUS PRN polyethylene glycol 3350 17 g packet 17 g ORAL DAILY PRN acetaminophen 650 mg tab(s) (TYLENOL) 650 mg ORAL q 8 H PRN ondansetron (PF) 4 mg injection (ZOFRAN) 4 mg INTRAVENOUS q 6 H PRN cefTRIAXone 1 g in D5W 100 mL Vial-Bag (ROCEPHIN) 1 g INTRAVENOUS q 24 H diphenhydrAMINE 25 mg (BENADRYL) 25 mg ORAL/FEEDING TUBE AT BEDTIME PRN Diagnostic tests reviewed for today's visit: Most recent labs Most recent imaging Component Latest Ref Rng AND Units 03/13/2023 Ferritin 14.7 - 205.1 ng/mL 149.0 Assessment AND Plan Qian Clements is a 32 year old female w/ PMH Adult onset Stills Disease, Benign liver angioma s/p resection, iron deficiency anemia, asthma, appendectomy, cholecystectomy, and 4 prior pregnancies (1 ), and is currently 8 weeks who presented to the ED on 03/13/2023 for left flank pain. #Back pain/Flank pain Assessment: She has flank pain that started on the left side but is now radiating to the right side as well. With leukocytosis, and WBC/leukesterase in her urine, along with recent hematuria, this is concerning for possible nephrolithiasis and possible pyelonephritis. Differential diagnosis includes flare of her Stills disease, urethritis/cystitis due to possible gonococcal infection (given knee joint pain, and pyuria, less likely though as it may have been a dirty catch), possible uterine fibroids/cysts causing torsion, ectopic , or MSK pain. - nomral lactate - Ferritin level elevated from baseline 4 yrs ago (45 to 149) but not outside normal range, could be due to inflammation, less likely Stills flare - Urine culture: normal urogenital j carlos Plan: - consult to OBGYN - Abdominal US per OB, MRI if US is inconclusive - empiric ceftriaxone - zofran for n/v associated with pain - Follow CBCs - Follow blood and urine cultures - PO benadryl requested by patient - acetaminophen 650 mg PRN and morphine (got 2x 2mg injections for pain over night) #Adult onset Stills Disease Assessment: This could be a possible flare of AOSD given fevers and joint pain. However no rash. Will need to rule out infection first. Ferritin level elevated from baseline 4 yrs ago (45 to 149) but not outside normal range, could be due to inflammation, less likely stills flare Plan: - PRN NSAIDs - Consider Rheum consult if negative for nephrolithiasis work up. #Nausea/Vomiting Assessment: Associated with her pain. Plan: - zofran for n/v associated with pain #Hypokalemia Plan: - replete with PO K - follow RFP Recommendations not finalized until signed by staff physician. SIGNATURE: Viktor Akhtar, MS5 PATIENT NAME: Qian Clements DATE: March 14, 2023 TIME: 8:26 AM Pager: refer to paging application After 5 PM on weekdays and after 3 PM on weekends page Night Team [facility] STAFF PHYSICIAN NOTE OF PERSONAL INVOLVEMENT IN CARE I have reviewed the progress note obta (more content not included)... [facility] 03-13-2023 Note HNO ID: [id number] Author: Sabrina Castro MD Service: Gynecology Author Type: Resident Type: Plan of Care Filed: 03/13/2023 5:19 PM Note Text: Attestation signed by Pinky Rodriguez DO at 03/13/2023 6:04 PM Routine OB guidelines/recommendations as documented. 03/13/2023 6:04 PM Pinky Rodriguez DO [facility] Resident Plan of Care Note 05:13 PM Primary care paged MACHINE TACK PULLER regarding recommended imaging for nephrolithiasis in the setting of 1st trimester of . Advised team to begin with renal bladder ultrasound. Advised team to avoid abdominal CT unless absolutely necessary. General guidelines are listed below. Sabrina Castro MD [place] Resident, PGY-3 General guidelines In general, goals for a woman include: Slight left lateral tilt or slightly upright positioning to displace the gravid uterus off of the vena cava Maintain O2 sat >95% BP greater than 90/40 to maximize uterine perfusion If using the ABG to adjust oxygen supplementation or vent changes, consider physiologic normal values in (pH 7.40-7.47, pCO2 27-34, po2 106-108, bicarb 18-22, bd 3) Avoid hyperglycemia, hypoglycemia, acidemia, hyper or hypotension, O2 saturations less than 95%, or maternal hemodynamic instability. These conditions can lead to distress and she would therefore need monitoring during this time. Imaging Ultrasound: Safe in . MRI: Most studies evaluating MRI safety during show no ill effects. It is good practice to avoid MRI during , particularly for elective studies or during the first trimester, but MRI remains preferable to any studies using ionizing radiation. Intravenous gadolinium is generally contra-indicated in , given that teratogenic effects have been demonstrated in animal studies, and should only be used if absolutely essential, and only after discussion of risks and benefits with the patient and referring clinician. CT: CT scans should be avoided in all trimesters of unless absolutely necessary, because it may cause up to a doubling of the risk of fatal childhood cancer, which is low overall. Teratogenesis however is not a major concern after diagnostic CT studies of the pelvis in , because the radiation dose is generally too low to cause such effects. Despite in vitro concerns, iodinated contrast seems safe to use in . Make sure to place lead apron over abdomen/pelvic when feasible for any additional imaging studies. Medications Narcotics and Tylenol safe for use in acute pain. Avoid NSAIDs. pesticide chemist narcotic exposure can lead to maternal and dependence, and withdrawl. Any of the medications used to treat hyperemesis gravidarum (Vitamin B6, Doxylamine, Promethazine, Metoclopramide, and Ondansetron) are safe to use in other instances of nausea and vomiting in . If nausea and vomiting is severe/intractable, consider addition of IV Multivitamin with Folate and Thiamine. Avoid Tetracyclines and Fluoroquinolones Anticoagulation: Heparin and Enoxaparin are safe to use. Avoid Warfarin Flexeril is low risk in - Could use if needed Avoid Tramadolol/Barbuturites. [facility] 03-13-2023 Note HNO ID: [id number] Author: Maira Egan RT(R) Service: Radiology Author Type: Technologist Type: Progress Notes Filed: 03/13/2023 1:07 PM Note Text: Radiology Service Progress Note PATIENT NAME: Qian Clements DATE OF SERVICE: March 13, 2023 TIME: 1:06 PM PATIENT IDENTITY VERIFICATION COMPLETED USING TWO (2) IDENTIFIERS: Name and Date of confirmed by patient verbally. FALL SCREENING: Has the patient had 2 falls in the last year or 1 fall with injury or currently using an Ambulatory Assistive Device (Walker, Cane, Wheelchair, Crutches, etc.)? Emergency Room Patient: Screened in ED PATIENT GENDER DATA: Female. status: : Yes. Radiologist notified: YES status: N/A PATIENT RELEVANT IMPLANT DATA REVIEWED: Not Applicable RADIOLOGY DEPARTMENT: General X-ray: Exam(s) Completed: Chest X-Ray PERIPHERAL IV DATA: Not applicable SIGNED BY: RT Angel(R) March 13, 2023 1:06 PM [facility] 03-07-2023 Hospital Discharge instructions Jeronimo Fofana DO - 03/07/2023 9:43 AM EDT Continue antibiotic as presccribed. Continue Tylenol as needed for pain. Follow-up with your OB for re evaluation. The following attachments cannot be sent through Care Everywhere.Flank Pain ([place])documented in this encounter [facility] 05-29-2022 History of Present illness Narrative Images from the original note were not included. POST OPERATIVE DAY # 4 Qian Clements is a 31 y.o. female This patient was seen and examined today. PLTCS on 05/25/22 Her was complicated by: Patient Active Problem List Diagnosis High risk medication use ADHD (attention deficit hyperactivity disorder), inattentive type Abdominal pain, RUQ (right upper quadrant) Epigastric abdominal pain Still's disease (HCC) Acute appendicitis Contact with and (suspected) exposure to infections with a predominantly sexual mode of transmission Juvenile rheumatoid arthritis with systemic onset, unspecified site (HCC) Acute vaginitis Headache Eclampsia (G6) PLTCS 05/25/22 F Apg 8/9 Wt 4#15 state Postoperative state Today she is doing well without any chief complaint. Her lochia is light. She denies chest pain, shortness of breath, lightheadedness, blurred vision and peripheral edema. She has a mild headache which she attributes to feeling tired. She is breast pumping and she denies any signs or symptoms of mastitis. She is ambulating well. She is voiding without difficulty. She currently denies S/S of depression. Flatus present. Bowel movement present. She is tolerating solids. Vital Signs: Vitals: 05/28/22 0827 05/28/22 1836 05/28/22 2230 05/29/22 0230 BP: (!) 144/98 (!) 153/107 (!) 137/92 133/82 Pulse: 97 98 (!) 104 87 Resp: 18 18 18 Temp: 98.3 F (36.8 C) 99 F (37.2 C) 98 F (36.7 C) 97.9 F (36.6 C) TempSrc: Oral Oral Oral Oral SpO2: 99% 99% 97% Urine Input & Output last 24hrs: Intake/Output Summary (Last 24 hours) at 05/29/2022 0259 Last data filed at 05/28/2022 0351 Gross per 24 hour Intake 240 ml Output -- Net 240 ml Physical Exam: General: no apparent distress, alert and cooperative Neurologic: alert, oriented, normal speech, no focal findings or movement disorder noted Lungs: No increased work of breathing, good air exchange, clear to auscultation bilaterally, no crackles or wheezing Heart: Regular rate and rhythm, normal S1 and S2, no S3 or S4, and no murmur noted Abdomen: abdomen soft, non-distended, non-tender, bowel sounds present Fundus: non-tender, firm, below umbilicus Incision: Prevena in place and functioning Extremities: no calf tenderness, non edematous Labs: Lab Results Component Value Date WBC 13.1 (H) 05/26/2022 HGB 9.6 (L) 05/26/2022 HCT 28.6 (L) 05/26/2022 MCV 89.4 05/26/2022 PLT 321 05/26/2022 Assessment/Plan: Qian Clements is a POD # 4 s/p PLTCS - Doing well, vitals overall stable with some intermittent elevated BP - Female infant in NICU - Encourage ambulation and use of incentive spirometer - S/p abrams catheter and saline lock IV on POD #1 - labs stable, will continue to trend if change in status - Lucy/Motrin/Tylenol for pain - Lovenox 40mg daily for DVT prophylaxis - S/p Keflex/Flagyl x48h postop Rh positive/Rubella equivocal - Offer MMR pp Breast feeding - Pumping, denies s/s mastitis Eclampsia - CT head negative 05/25/22 - PreE labs trended and wnl x2, P/C 0.77 on 05/25/22 - S/p Mag x24h - Pt has not required IV antihypertensives since delivery - Started on Procardia 30XL daily on 05/28/22, will adjust as needed - Pt reports mild headache, will monitor closely Intraop Hemorrhage - EBL 1000 - S/p TXA and [place] cytotec - Bleeding stable, vitals stable - Postop Hgb of 9.6, will d/c with PO iron Asthma - Albuterol PRN Depression/ADHD - Mood overall stable - Denies SI/HI - Not on medication Hx Still's Murmur - As a child - Denies symptoms Hx Hemihepatectomy - LFTs remain wnl BMI 41 Continue post-op care. Consider d/c if BP remains stable. Counseling Completed: Secondary Smoke risks and Sudden Syndrome were reviewed with recommendations. sleeping, back to sleep and avoidance of co-sleeping recommendations were reviewed. Signs and Symptoms of Post Depression were reviewed. The patient is to call if any occur. Signs and symptoms of Mastitis were reviewed. The patient is to call if any occur for follow up. Discharge instructions including pelvic rest, incision care, 15 lb weight restriction, no driving with pain medicine and office follow-up were reviewed with patient Attending Physician: Dr. Dilip Curiel, DO 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 Resident 05/29/2022, 2:59 AM Attending Physician Statement I have discussed the care of Qian Clements, including pertinent history and exam findings, with the resident. I have reviewed the fraire elements of all parts of the encounter with the resident. I agree with the assessment, plan and orders as documented by the resident. (GE Modifier) Electronically signed by Tammy Cherry MD at 9:42 AM 05/29/22 POST OPERATIVE DAY # 3 Qian Clements is a 31 y.o. female This patient was seen and examined today. Her was complicated by: Patient Active Problem List Diagnosis High risk medication use ADHD (attention deficit hyperactivity disorder), inattentive type Abdominal pain, RUQ (right upper quadrant) Epigastric abdominal pain Still's disease (HCC) Acute appendicitis Contact with and (suspected) exposure to infections with a predominantly sexual mode of transmission Juvenile rheumatoid arthritis with systemic onset, unspecified site (HCC) Acute vaginitis Headache Eclampsia (G6) PLTCS 05/25/22 F Apg 8/9 Wt 4#15 Today she is doing well without any chief complaint. Her lochia is light. She denies chest pain, shortness of breath, headache, lightheadedness, blurred vision and peripheral edema. She is breast pumping and she denies any signs or symptoms of mastitis. She is ambulating well. She is voiding without difficulty. She currently denies S/S of depression. Flatus present. Bowel movement absent. She is tolerating solids. Vital Signs: Vitals: 05/27/22 1533 05/27/22 2140 05/27/22 2259 05/28/22 0000 BP: 134/81 (!) 154/96 (!) 141/87 Pulse: (!) 102 93 100 Resp: 16 18 16 16 Temp: 98.2 F (36.8 C) 98.7 F (37.1 C) 98.6 F (37 C) TempSrc: Oral Oral Oral SpO2: 98% 100% 100% Urine Input & Output last 24hrs: No intake or output data in the 24 hours ending 05/28/22 0243 Physical Exam: General: no apparent distress, alert and cooperative Neurologic: alert, oriented, normal speech, no focal findings or movement disorder noted Lungs: No increased work of breathing Heart: Regular rate and rhythm Abdomen: abdomen soft, non-distended, non-tender Fundus: non-tender, firm, below umbilicus Incision: Prevena in place and functioning Extremities: no calf tenderness, non edematous Labs: Lab Results Component Value Date WBC 13.1 (H) 05/26/2022 HGB 9.6 (L) 05/26/2022 HCT 28.6 (L) 05/26/2022 MCV 89.4 05/26/2022 PLT 321 05/26/2022 Assessment/Plan: Qian Clements is a POD # 3 s/p PLTCS - Doing well, VSS - Female infant in NICU - Encourage ambulation and use of incentive spirometer - CBC completed. Hbg 9.6 Rh positive/Rubella equivocal - MRR ordered Breast Pumping - Denies s/s of mastitis Eclampsia - Few elevated Bps, but overall are well controlled on no medications - Denies s/s of PreE - S/p Mag x 24hrs - PreE labs wnl x2, P/C 0.77 (05/25) - Has not required any IV antihypertensives during admission - S/p IV labetalol 20 x3, 40 x3, 80 x1 (EMS) - CT head w/o (05/25): No acute intracranial abnormality - CT PE (05/24): negative -We will continue to monitor closely Anemia - Hbg 10.1>9.6 -Rx for iron supplementation was given -Clinically asymptomatic Asthma -Butyryl as needed Depression/ADHD -Denies suicidal homicidal ideation -Stable on no medications -Social work was consulted and has no concerns BMI 41 - S/p Keflex/Flagyl - Lovenox 40 mg qD Continue post-op care. Counseling Completed: Secondary Smoke risks and Sudden Syndrome were reviewed with recommendations. sleeping, back to sleep and avoidance of co-sleeping recommendations were reviewed. Signs and Symptoms of Post Depression were reviewed. The patient is to call if any occur. Signs and symptoms of Mastitis were reviewed. The patient is to call if any occur for follow up. Discharge instructions including pelvic rest, incision care, 15 lb weight restriction, no driving with pain medicine and office follow-up were reviewed with patient Attending Physician: Dr. Pawel Cherry, DO 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 Resident 05/28/2022, 2:43 AM Date: 05/28/2022 Time: 8:59 AM Patient Name: Qian Clements Patient : 1990 Room/Bed: 0733/0733-01 Admission Date/Time: 05/25/2022 2:31 PM Attending Physician Statement I have personally seen, evaluated and discussed the care of Qian Clements, including pertinent history and exam findings with the resident. I have reviewed and edited their note in the electronic medical record. The fraire elements of all parts of the encounter have been performed/reviewed by me. I agree with the assessment, plan and orders as documented by the resident. The level of care submitted represents to the best of my ability the care documented in the medical record today. GC Modifier. This service has been performed in part by a resident under the direction of a teaching physician. Attending's Name: Karey Armas MD Patient doing well. She has no concerns or complaints. Continue routine post- care. She remains asymptomatic s/p eclampsia. Plan for discharge POD#4. POST OPERATIVE DAY # 2 Qian Clements is a 31 y.o. female This patient was seen and examined today. Her was complicated by: Patient Active Problem List Diagnosis High risk medication use ADHD (attention deficit hyperactivity disorder), inattentive type Abdominal pain, RUQ (right upper quadrant) Epigastric abdominal pain Still's disease (HCC) Acute appendicitis Contact with and (suspected) exposure to infections with a predominantly sexual mode of transmission Juvenile rheumatoid arthritis with systemic onset, unspecified site (HCC) Acute vaginitis Headache Eclampsia (G6) PLTCS 05/25/22 F Apg 8/9 Wt 4#15 Today she is doing well without any chief complaint. Her lochia is light. She denies chest pain, shortness of breath, headache, lightheadedness, blurred vision and peripheral edema. She is breast pumping and she denies any signs or symptoms of mastitis. She is is ambulating well. She is voiding without difficulty. She currently denies S/S of depression. Flatus present. Bowel movement absent. She is tolerating solids. Vital Signs: Vitals: 05/26/222014 BP: 132/76 Pulse: 90 Resp: 18 Temp: 98.2 F (36.8 C) SpO2: , Urine Input & Output last 24hrs: Intake/Output Summary (Last 24 hours) at 05/27/2022 0019 Last data filed at 05/26/2022 1446 Gross per 24 hour Intake 1839.92 ml Output 4250 ml Net -2410.08 ml Physical Exam: General: no apparent distress, alert and cooperative Neurologic: alert, oriented, normal speech, no focal findings or movement disorder noted Lungs: No increased work of breathing Heart: Regular rate and rhythm Abdomen: abdomen soft, non-distended, non-tender Fundus: non-tender, firm, below umbilicus Incision: Prevena in place and functioning Extremities: no calf tenderness, non edematous Labs: Lab Results Component Value Date WBC 13.1 (H) 05/26/2022 HGB 9.6 (L) 05/26/2022 HCT 28.6 (L) 05/26/2022 MCV 89.4 05/26/2022 PLT 321 05/26/2022 Assessment/Plan: Qian Clements is a POD # 2 s/p PLTCS - Doing well, VSS - Female infant in NICU - Encourage ambulation and use of incentive spirometer - CBC completed Rh positive/Rubella equivocal Breast feeding - Denies s/s of mastitis Eclampsia - Bps have been normotensive. She has not required any IV antihypertensives - She denies s/s of PreE - S/p Mag x 24 hr PP - PreE labs wnl x2, P/C 0.77 (05/25) - S/p IV labetalol 20 x3, 40 x3, 80 x1 (EMS) - CT PE (05/24): negative - CT head w/o (05/25): No acute intracranial abnormality - Will monitor closely Anemia - Hbg 10.1>9.6 -Rx for iron supplementation was given -Is clinically asymptomatic - VSS Asthma - albuterol prn Depression/ADHD - Denies SI/HI - Stable on no meds BMI 41 - Lovenox 40mg qd - Keflex/Flagyl x48h Continue post-op care. Counseling Completed: Secondary Smoke risks and Sudden Syndrome were reviewed with recommendations. Infant sleeping, back to sleep and avoidance of co-sleeping recommendations were reviewed. Signs and Symptoms of Post Depression were reviewed. The patient is to call if any occur. Signs and symptoms of Mastitis were reviewed. The patient is to call if any occur for follow up. Discharge instructions including pelvic rest, incision care, 15 lb weight restriction, no driving with pain medicine and office follow-up were reviewed with patient Attending Physician: Dr. Joanne Cherry, 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 Resident 05/27/2022, 12:19 AM Date: 05/27/2022 Time: 11:27 AM Patient Name: Qian Clements Patient : 1990 Room/Bed: 0733/0733-01 Admission Date/Time: 05/25/2022 2:31 PM Attending Physician Statement I have discussed the care of Qian Clements, including pertinent history and exam findings with the resident. I have reviewed and edited their note in the electronic medical record. The fraire elements of all parts of the encounter have been performed/reviewed by me . I agree with the assessment, plan and orders as documented by the resident. The level of care submitted represents to the best of my ability the care documented in the medical record today. GC Modifier. This service has been performed in part by a resident under the direction of a teaching physician. Attending's Name: CESAR RUBIO DO Resident Interval Magnesium Sulfate Note Qian Clements is a 31 y.o. female POD# 1 s/p PLTCS The patient is resting comfortably. She denies headache, visual changes, abdominal pain in the right upper quadrant, nausea, backache, and dysuria. She denies any shortness of breath or chest pain. She denies change in her extremities, regarding swelling. Continuous Medications: oxytocin Stopped (05/25/222043) magnesium sulfate 2,000 mg/hr (05/26/22 1344) lactated ringers 75 mL/hr at 05/26/22 0623 sodium chloride Vitals: Vitals: 05/26/22 1427 BP: 124/78 Pulse: 90 Resp: Temp: SpO2: Physical Exam: Chest: clear to auscultation bilaterally Heart: RRR no murmur Abdomen: soft, nontender, nondistended Extremities: DTR normal Bilateral lower extremities Right: 2/4 Left: 2/4 Clonus: absent Urine Output: 200 cc/hr; Clear urine Labs: Last Magnesium Level: Lab Results Component Value Date/Time MG 5.0 05/25/2022 03:01 PM BMP: Recent Labs 05/25/22 1501 05/25/22212605/26/22 0632 NA 134* 134* 132* K 3.8 4.2 4.3 CL 103 102 101 CO2 19* 19* 19* BUN 6 6 6 CREATININE 0.46* 0.57 0.60 GLUCOSE 118* 109* 103* ASSESSMENT/PLAN Qian Clements is a 31 y.o. female POD# 1 s/p PLTCS - Continue Magnesium Sulfate Treatment 2g/hr, off @ 1519 on 05/26/22 - No Mag levels q6hrs per provider - BPs normotensive - Patient denies any s/s PreE - UOP adequate - PreE labs wnl, P/C 0.77 - Currently controlled on no meds - Last IV anti-hypertensive labetalol IV 20 x3, 40 x3, 80 x1 (EMS) - Will continue to monitor Abdi Gómez MD 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 Resident 05/26/2022, 2:52 PM Resident Interval Magnesium Sulfate Note Qian Clements is a 31 y.o. female POD# 1 s/p PLTCS The patient is resting comfortably. She denies headache, visual changes, abdominal pain in the right upper quadrant, nausea, and dysuria. She denies any shortness of breath or chest pain. She denies change in her extremities, regarding swelling. Continuous Medications: oxytocin Stopped (05/25/222043) magnesium sulfate 2,000 mg/hr (05/26/22622) lactated ringers 75 mL/hr at 05/26/22 0623 sodium chloride Vitals: Vitals: 05/26/22 0701 05/26/22 0720 05/26/22 0828 05/26/22 0930 BP: 134/84 134/86 133/80 121/73 Pulse: 70 74 80 83 Resp: 16 18 Temp: 97.9 F (36.6 C) TempSrc: Oral SpO2: 98% Physical Exam: Chest: clear to auscultation bilaterally Heart: RRR no murmur Abdomen: soft, nontender, nondistended Extremities: DTR normal Bilateral lower extremities Right: 2/4 Left: 2/4 Clonus: present Urine Output: 50 cc/hr; Clear urine Labs: Last Magnesium Level: Lab Results Component Value Date/Time MG 5.0 05/25/2022 03:01 PM BMP: Recent Labs 05/25/22 1501 05/25/227 05/26/22 0632 NA 134* 134* 132* K 3.8 4.2 4.3 CL 103 102 101 CO2 19* 19* 19* BUN 6 6 6 CREATININE 0.46* 0.57 0.60 GLUCOSE 118* 109* 103* ASSESSMENT/PLAN Qian Clements is a 31 y.o. female POD# 1 s/p PLTCS - Continue Magnesium Sulfate Treatment 2g/hr, off @ 1519 on 05/26/22 - No Mag levels q6hrs per provider - BPs normotensive - Patient denies any s/s PreE - UOP adequate - PreE labs wnl, P/C pending - Currently controlled on no meds - Last IV anti-hypertensive Labetalol 20mg x3, 40mg x3, 80mg x1 per EMS - Next magnote @ 1430 Abdi Gómez MD 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 Resident 05/26/2022, 10:26 AM POST OPERATIVE DAY # 1 Qian Clements is a 31 y.o. female This patient was seen and examined today. PLTCS on 05/25/22 Her was complicated by: Patient Active Problem List Diagnosis High risk medication use ADHD (attention deficit hyperactivity disorder), inattentive type Abdominal pain, RUQ (right upper quadrant) Epigastric abdominal pain Still's disease (HCC) Acute appendicitis Contact with and (suspected) exposure to infections with a predominantly sexual mode of transmission Juvenile rheumatoid arthritis with systemic onset, unspecified site (HCC) Acute vaginitis Headache Eclampsia PLTCS 05/25/22 F Apg 8/9 Wt 4#15 Today she is doing well without any chief complaint. Her lochia is light. She denies chest pain, shortness of breath, headache, lightheadedness, blurred vision and peripheral edema. She is not breast feeding and she denies any signs or symptoms of mastitis. She is not yet ambulating well. She still has abrams in place with adequate output. She currently denies S/S of depression. Flatus absent. Bowel movement absent. She is tolerating solids. Vital Signs: Vitals: 05/26/22 0000 05/26/22 0101 05/26/22 0200 05/26/22 0201 BP: 133/62 132/63 138/78 Pulse: 80 82 Resp: Temp: 98.4 F (36.9 C) TempSrc: SpO2: 95% 100% Urine Input & Output last 24hrs: Intake/Output Summary (Last 24 hours) at 05/26/2022 0414 Last data filed at 05/26/2022 0222 Gross per 24 hour Intake 1000 ml Output 4650 ml Net -3650 ml Physical Exam: General: no apparent distress, alert and cooperative Neurologic: alert, oriented, normal speech, no focal findings or movement disorder noted Lungs: No increased work of breathing, good air exchange, clear to auscultation bilaterally, no crackles or wheezing Heart: Regular rate and rhythm, normal S1 and S2, no S3 or S4, and no murmur noted Abdomen: abdomen soft, non-distended, non-tender, bowel sounds present Fundus: non-tender, firm, below umbilicus Incision: clean, dry, and Prevena in place and functioning Extremities: no calf tenderness, non edematous Labs: Lab Results Component Value Date WBC 17.1 (H) 05/25/2022 HGB 10.1 (L) 05/25/2022 HCT 29.8 (L) 05/25/2022 MCV 87.9 05/25/2022 PLT 350 05/25/2022 Assessment/Plan: Qian Clements is a POD # 1 s/p PLTCS w/ Eclampsia - Doing well, VSS - Female infant in NICU - Encourage ambulation and use of incentive spirometer - S/p abrams catheter and saline lock IV on POD #1 - CBC awaiting - Lucy/Motrin/Tylenol for pain - S/p Dilaudid pushes for pain control Rh positive/Rubella equivocal - Rhogam not indicated - MMR vaccine offered PP Bottle Feeding - Denies s/s of mastitis Eclampsia - Patient received 6g mag bolus in [place] >2g/hr > 1g/hr - Seizure like activity witnessed en route to hospital - Seizure on arrival to L&D unit - 4g mag bolus>2g/hr x 24 hours, off @ 1519 05/26/22 - PreE labs wnl x 2, P/C - S/p IV labetalol 20mg x 3, 40mg x 3, 80mg x 1 - BP normotensive overnight - CT head w/o contrast wnl - Patient w/ Headache prior to delivery now resolved - Continue to monitor Headache - Present on admission - Diagnosed with PreE w/ SF at outside hospital - Denies GREENE at this time Intra-OP Hemorrhage - EBL 1000 ml - CBC pending this am - S/p TXA x1 and Cytotec 1000 mg [place] Asthma - Albuterol inhaler PRN Depression/ADHD - Denies SI/HI - Currently managed without medications BMI 41 - Lovenox 40 mg qd - Keflex/Flagyl x 48 hours post-op Continue post-op care. Counseling Completed: Secondary Smoke risks and Sudden Infant Syndrome were reviewed with recommendations. Infant sleeping, back to sleep and avoidance of co-sleeping recommendations were reviewed. Signs and Symptoms of Post Depression were reviewed. The patient is to call if any occur. Signs and symptoms of Mastitis were reviewed. The patient is to call if any occur for follow up. Discharge instructions including pelvic rest, incision care, 15 lb weight restriction, no driving with pain medicine and office follow-up were reviewed with patient Attending Physician: Dr. Celestine Crawley DO 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 Resident 05/26/2022, 4:14 AM Resident Interval Magnesium Sulfate Note Qian Clements is a 31 y.o. female POD# 0 s/p PLTCS (general) The patient is resting comfortably. She denies headache, visual changes, and abdominal pain in the right upper quadrant. She denies any shortness of breath or chest pain. She denies change in her extremities, regarding swelling. Continuous Medications: oxytocin Stopped (05/25/222043) magnesium sulfate 2,000 mg/hr (05/26/22217) lactated ringers 75 mL/hr at 05/25/22 1600 sodium chloride HYDROmorphone Vitals: Vitals: 05/26/22 0000 05/26/22 0101 05/26/22 0200 05/26/22 020 BP: 133/62 132/63 138/78 Pulse: 80 82 Resp: Temp: 98.4 F (36.9 C) TempSrc: SpO2: 95% 100% Physical Exam: Chest: clear to auscultation bilaterally Heart: RRR no murmur Abdomen: soft, nontender, nondistended Extremities: DTR normal Bilateral upper extremities Right: 2/4 Left: 2/4 Clonus: absent Urine Output: 67ml/hr over12 hours; Clear and Yellow urine Labs: Last Magnesium Level: Lab Results Component Value Date/Time MG 5.0 05/25/2022 03:01 PM BMP: Recent Labs 05/25/22 1501 05/25/222126 NA 134* 134* K 3.8 4.2 CL 103 102 CO2 19* 19* BUN 6 6 CREATININE 0.46* 0.57 GLUCOSE 118* 109* ASSESSMENT/PLAN Qian Clements is a 31 y.o. female POD# 0 s/p PLTCS (general) - Continue Magnesium Sulfate Treatment 2g/hr, off @ 1519 on 05/26/22 - No Mag levels q6hrs per provider - BPs normotensive - Patient denies any s/s PreE - UOP adequate - PreE labs wnl, on admission, P/C still pending - Currently controlled on no medications - Last IV anti-hypertensive Labetalol 20mg x 3, 40 mg x3, 80mg x 1 per EMS - Next mag note @ 5260 - Plan to d/c abrams at this time Savana Crawley DO 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 Resident 05/26/2022, 4:10 AM Resident Interval Magnesium Sulfate Note Qian Clements is a 31 y.o. female POD# 0 s/p PLTCS (general) The patient is resting comfortably. She denies headache, visual changes, and abdominal pain in the right upper quadrant. She denies any shortness of breath or chest pain. She denies change in her extremities, regarding swelling. Continuous Medications: oxytocin Stopped (05/25/222043) magnesium sulfate 2,000 mg/hr (05/25/22 1505) lactated ringers 75 mL/hr at 05/25/22 1600 sodium chloride HYDROmorphone Vitals: Vitals: 05/25/22 2210 05/25/22 2215 05/25/22 2301 05/26/22 0000 BP: 113/67 133/62 Pulse: 80 80 Resp: Temp: TempSrc: SpO2: 97% 98% 95% Physical Exam: Chest: clear to auscultation bilaterally Heart: RRR no murmur Abdomen: soft, nontender, nondistended Extremities: DTR normal Bilateral upper extremities Right: 2/4 Left: 2/4 Clonus: absent Urine Output: 67ml/hr over 3 hours; Clear and Yellow urine Labs: Last Magnesium Level: Lab Results Component Value Date/Time MG 5.0 05/25/2022 03:01 PM BMP: Recent Labs 05/25/22 1501 05/25/222126 NA 134* 134* K 3.8 4.2 CL 103 102 CO2 19* 19* BUN 6 6 CREATININE 0.46* 0.57 GLUCOSE 118* 109* ASSESSMENT/PLAN Qian Clements is a 31 y.o. female POD# 0 s/p PLTCS (general) - Continue Magnesium Sulfate Treatment 2g/hr, off @ 1519 on 05/26/22 - No Mag levels q6hrs per provider - BPs normotensive - Patient denies any s/s PreE - UOP adequate - PreE labs wnl, on admission, P/C still pending - Currently controlled on no medications - Last IV anti-hypertensive Labetalol 20mg x 3, 40 mg x3, 80mg x 1 per EMS - Next mag note @ 2320 - Will continue to monitor Savana Crawley DO 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 Resident 05/26/2022, 12:30 AM Resident Interval Magnesium Sulfate Note Qian Clements is a 31 y.o. female POD# 0 s/p PLTCS (general) The patient is resting comfortably. She denies headache, visual changes, and abdominal pain in the right upper quadrant. She denies any shortness of breath or chest pain. She denies change in her extremities, regarding swelling. Continuous Medications: oxytocin 87.3 mL/hr (05/25/22 1532) magnesium sulfate 2,000 mg/hr (05/25/22 1505) lactated ringers 75 mL/hr at 05/25/22 1600 sodium chloride HYDROmorphone Vitals: Vitals: 05/25/22 1802 05/25/22 1815 05/25/22 1830 05/25/22 1845 BP: 138/77 133/79 133/83 Pulse: 87 87 85 86 Resp: Temp: 98.4 F (36.9 C) TempSrc: Oral SpO2: 97% 98% 97% 97% Physical Exam: Chest: clear to auscultation bilaterally Heart: RRR no murmur Abdomen: soft, nontender, nondistended Extremities: DTR normal Bilateral upper extremities Right: 2/4 Left: 2/4 Clonus: absent Urine Output: 67ml/hr over 3 hours; Clear and Yellow urine Labs: Last Magnesium Level: Lab Results Component Value Date/Time MG 5.0 05/25/2022 03:01 PM BMP: Recent Labs 05/25/22 1501 NA 134* K 3.8 CL 103 CO2 19* BUN 6 CREATININE 0.46* GLUCOSE 118* ASSESSMENT/PLAN Qian Clements is a 31 y.o. female POD# 0 s/p PLTCS (general) - Continue Magnesium Sulfate Treatment 2g/hr, off @ 1519 on 05/26/22 - No Mag levels q6hrs per provider - BPs normotensive - Patient denies any s/s PreE - UOP adequate - PreE labs wnl, on admission, P/C still pending - Currently controlled on no medications - Last IV anti-hypertensive Labetalol 20mg x 3, 40 mg x3, 80mg x 1 per EMS - Next mag note @ 2320 - Will continue to monitor Savana Crawley DO 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 Resident 05/25/2022, 7:25 PM SPIRITUAL CARE DEPARTMENT - [facility] [place] PROGRESS NOTE Shift date: 05/25/2022 Shift day: Tuesday Shift # 1 Room # 0703/0703-01 Name: Qian Clements Buddhist: Place of [employer]: Referral: Steffi Alert Admit Date & Time: 05/25/2022 2:31 PM Assessment: Qian Clements is a 31 y.o. female, 32 weeks , who was brought from a hospital in [place]. Per EMS, patient had very high BP and had a seizure on the way here. The OB explained that they would have to deliver the baby. Upon entering the room functional tester typewriters observes patient was tearful. She said she had no needs from digital media coordinator at that time. Mother and family members arrived shortly and appeared concerned. Bag Machine Adjuster was unable to assess them after walking them to the pt's room. Intervention: Public Address System Mechanic introduced self and title as digital media coordinator. Bag Machine Adjuster provided a supportive presence and words of comfort. Outcome: Pt appeared comforted by digital media coordinator's presence. Plan: Chaplains will remain available to offer spiritual and emotional support as needed. . Spiritual Care Department [facility] [phone] 05/25/22 1504 Encounter Summary Service Provided For: Patient;Family Referral/Consult From: Multi-disciplinary team Support System Parent;Family members Last Encounter 05/25/22 Complexity of Encounter Moderate Begin Time 1430 End Time 1450 Total Time Calculated 20 min Crisis Type ([place] Alert) Assessment/Intervention/Outcome Assessment Coping;Tearful Intervention Active listening;Explored/Affirmed feelings, thoughts, concerns Outcome Expressed feelings, needs, and concerns documented in this encounter [facility] Work Phone: 05-25-2022 Hospital Discharge instructions Erin Padron DO - 05/25/2022 4:28 PM EDT Images from the original note were not included. Section: What to Expect at Home Your Recovery A section, or , is surgery to deliver your baby through a cut that the doctor makes in your lower belly and uterus. The cut is called an incision. You may have some pain in your lower belly and need pain medicine for 1 to 2 weeks. You can expect some vaginal bleeding for several weeks. You will probably need about 6 weeks to fully recover. It's important to take it easy while the incision heals. Avoid heavy lifting, strenuous activities, and exercises that strain the belly muscles while you recover. Ask a family member or friend for help with housework, cooking, and shopping. This care sheet gives you a general idea about how long it will take for you to recover. But each person recovers at a different pace. Follow the steps below to get better as quickly as possible. How can you care for yourself at home? Activity Rest when you feel tired. Getting enough sleep will help you recover. Try to walk each day. Start by walking a little more than you did the day before. Bit by bit, increase the amount you walk. Walking boosts blood flow and helps prevent pneumonia, constipation, and blood clots. Avoid strenuous activities, such as bicycle riding, jogging, weightlifting, and aerobic exercise, for 6 weeks or until your doctor says it is okay. Until your doctor says it is okay, do not lift anything heavier than your baby. Do not do sit-ups or other exercises that strain the belly muscles for 6 weeks or until your doctor says it is okay. Hold a pillow over your incision when you cough or take deep breaths. This will support your belly and decrease your pain. You may shower as usual. Pat the incision dry when you are done. You will have some vaginal bleeding. Wear sanitary pads. Do not douche or use tampons until your doctor says it is okay. Ask your doctor when you can drive again. You will probably need to take at least 6 weeks off work. It depends on the type of work you do and how you feel. Ask your doctor when it is okay for you to have sex. Diet You can eat your normal diet. If your stomach is upset, try bland, low-fat foods like plain rice, broiled chicken, toast, and yogurt. Drink plenty of fluids (unless your doctor tells you not to). You may notice that your bowel movements are not regular right after your surgery. This is common. Try to avoid constipation and straining with bowel movements. You may want to take a fiber supplement every day. If you have not had a bowel movement after a couple of days, ask your doctor about taking a mild laxative. If you are , limit alcohol. Alcohol can cause a lack of energy and other health problems for the baby when a woman drinks heavily. It can also get in the way of a mom's ability to feed her baby or to care for the child in other ways. There isn't a lot of research about exactly how much alcohol can harm a baby. Having no alcohol is the safest choice for your baby. If you choose to have a drink now and then, have only one drink, and limit the number of occasions that you have a drink. Wait to breastfeed at least 2 hours after you have a drink to reduce the amount of alcohol the baby may get in the milk. Medicines Your doctor will tell you if and when you can restart your medicines. You will also get instructions about taking any new medicines. If you stopped taking aspirin or some other blood thinner, your doctor will tell you when to start taking it again. Take pain medicines exactly as directed. If the doctor gave you a prescription medicine for pain, take it as prescribed. If you are not taking a prescription pain medicine, ask your doctor if you can take an xvzg-aux-nxjnacf medicine. If you think your pain medicine is making you sick to your stomach: Take your medicine after meals (unless your doctor has told you not to). Ask your doctor for a different pain medicine. If your doctor prescribed antibiotics, take them as directed. Do not stop taking them just because you feel better. You need to take the full course of antibiotics. Incision care If you have strips of tape on the incision, leave the tape on for a week or until it falls off. Wash the area daily with warm, soapy water, and pat it dry. Don't use hydrogen peroxide or alcohol, which can slow healing. You may cover the area with a gauze bandage if it weeps or rubs against clothing. Change the bandage every day. Keep the area clean and dry. Other instructions If you breastfeed your baby, you may be more comfortable while you are healing if you don't rest your baby on your belly. Try tucking your baby under your arm, with your baby's body along the side you will be feeding on. Support your baby's upper body with your arm. With that hand you can control your baby's head to bring your baby's mouth to your breast. This is sometimes called the football hold. Follow-up care is a fraire part of your treatment and safety. Be sure to make and go to all appointments, and call your doctor if you are having problems. It's also a good idea to know your test results and keep a list of the medicines you take. When should you call for help? Share this information with your partner, family, or a friend. They can help you watch for warning signs. Call 911 anytime you think you may need emergency care. For example, call if: You have thoughts of harming yourself, your baby, or another person. You passed out (lost consciousness). You have chest pain, are short of breath, or cough up blood. You have a seizure. Call your doctor now or seek immediate medical care if: You have loose stitches, or your incision comes open. You have signs of hemorrhage (too much bleeding), such as: Heavy vaginal bleeding. This means that you are soaking through one or more pads in an hour. Or you pass blood clots bigger than an egg. Feeling dizzy or lightheaded, or you feel like you may faint. Feeling so tired or weak that you cannot do your usual activities. A fast or irregular heartbeat. New or worse belly pain. You have symptoms of infection, such as: Increased pain, swelling, warmth, or redness. Red streaks leading from the incision. Pus draining from the incision. A fever. Vaginal discharge that smells bad. New or worse belly pain. You have symptoms of a blood clot in your leg (called a deep vein thrombosis), such as: Pain in your calf, back of the knee, thigh, or groin. Redness and swelling in your leg or groin. You have signs of preeclampsia, such as: Sudden swelling of your face, hands, or feet. New vision problems (such as dimness, blurring, or seeing spots). A severe headache. Watch closely for changes in your health, and be sure to contact your doctor if: Your vaginal bleeding isn't decreasing. You feel sad, anxious, or hopeless for more than a few days. You are having problems with your breasts or . Where can you learn more? Go to [email or web address] and sign in to your [employer] account. Enter M806 in the Search Health Information box to learn more about Section: What to Expect at Home. If you do not have an account, please click on the Sign Up Now link. Current as of: October 14, 2021 Content Version: 13.4 [employer]. Care instructions adapted under license by [employer]. If you have questions about a medical condition or this instruction, always ask your healthcare professional. [employer] disclaims any warranty or liability for your use of this information. Depression After Childbirth: Care Instructions It's common to lose sleep, feel irritable, and cry easily during the first few days after childbirth. Hormone changes and the demands of a new baby can cause these baby blues. If these mood changes last more than 2 weeks, you may have depression. This is a medical condition that requires treatment. If you have any of these signs, you may be depressed. See your doctor right away. You feel very sad or hopeless and lose interest in daily activities. You sleep too much or not enough. You feel tired or as if you have no energy. You eat too much or too little. You write or talk about . Where to get help 24 hours a day, 7 days a week If you or someone you know talks about suicide, self-harm, a mental health crisis, a substance use crisis, or any other kind of emotional distress, get help right away. You can: Call the Suicide and Crisis Lifeline at 303. Call 1-370-182-FTFA (). Text HOME to 659748 to access the Crisis Text Line. Consider saving these numbers in your phone. What you can do Try to go to all of your counseling sessions. Take medicines as directed. Eat healthy foods. Get daily exercise, such as walks. Try to get some sunlight every day. Avoid using alcohol or other substances. Get as much rest as possible. Connect with friends, and join a support group for new parents. When should you call for help? Call 890 if: You feel you cannot stop from hurting yourself, your baby, or someone else. Call your doctor now or seek immediate medical care if: You are having trouble caring for yourself or your baby. You hear voices. Contact your doctor if: You have problems with your medicines. You do not get better as expected. Follow-up care is a fraire part of your treatment and safety. Be sure to make and go to all appointments, and call your doctor if you are having problems. It's also a good idea to know your test results and keep a list of the medicines you take. Where can you learn more? Go to [email or web address] and sign in to your [employer] account. Enter Y765 in the Search Health Information box to learn more about Depression After Childbirth: Care Instructions. If you do not have an account, please click on the Sign Up Now link. Current as of: September 30, 2021 Content Version: 13.4 [employer]. Care instructions adapted under license by [employer]. If you have questions about a medical condition or this instruction, always ask your healthcare professional. [employer] disclaims any warranty or liability for your use of this information. Learning About Preeclampsia After Childbirth What is preeclampsia? Preeclampsia means that your blood pressure during is higher than usual. You may also have other serious symptoms. Preeclampsia can be dangerous. When it is severe, it can cause seizures (eclampsia) or liver or kidney damage. When it affects the liver, it can cause HELLP syndrome, a blood-clotting and bleeding problem. HELLP can come on quickly and can be deadly. This is why your doctor checks you and your baby often. Preeclampsia usually occurs after 20 weeks of . Most often, it starts near the end of and goes away after childbirth. But symptoms may last a few weeks or more and can get worse after delivery. Rarely, symptoms of preeclampsia don't show up until days or even weeks after childbirth. What are the symptoms? Mild preeclampsia usually doesn't cause symptoms. But preeclampsia can cause rapid weight gain and sudden swelling of the hands and face. Severe preeclampsia does cause symptoms. It can cause a very bad headache and trouble seeing and breathing. It also can cause belly pain. You may also urinate less than usual. What can you expect after you have had preeclampsia? In the hospital After the baby and the placenta are delivered, preeclampsia usually starts to improve. Most women get better in the first few days after childbirth. After having preeclampsia, you still have a risk of seizures for a day or more after childbirth. (Very rarely, seizures happen later on.) So your doctor may have you take magnesium sulfate for a day or more to prevent seizures. You may also take medicine to lower your blood pressure. When you go home Your blood pressure will most likely return to normal a few days after delivery. Your doctor will want to check your blood pressure sometime in the first week after you leave the hospital. Some women still have high blood pressure 6 weeks after childbirth. But most return to normal levels over the shift superintendent caustic cresylate. Take and record your blood pressure at home if your doctor tells you to. Ask your doctor to check your blood pressure monitor to be sure that it is accurate and that the cuff fits you. Also ask your doctor to watch you use it, to make sure that you are using it right. You should not eat, use tobacco products, or use medicine known to raise blood pressure (such as some nasal decongestant sprays) before you take your blood pressure. Avoid taking your blood pressure if you have just exercised. Also avoid taking it if you are nervous or upset. Rest at least 15 minutes before you take your blood pressure. Be safe with medicines. If you take medicine, take it exactly as prescribed. Call your doctor if you think you are having a problem with your medicine. Do not smoke. Quitting smoking will help improve your baby's growth and health. If you need help quitting, talk to your doctor about stop-smoking programs and medicines. These can increase your chances of quitting for good. Eat a balanced and healthy diet that has lots of fruits and vegetables. Long-term health After you have had preeclampsia, you have a sqiqju-qsop-ikzdarc risk of heart disease, stroke, and kidney disease. This may be because the same things that cause preeclampsia also cause heart and kidney disease. To protect your health, work with your doctor on living a heart-healthy lifestyle and getting the checkups you need. Your doctor may also want you to check your blood pressure at home. Follow-up care is a fraire part of your treatment and safety. Be sure to make and go to all appointments, and call your doctor if you are having problems. It's also a good idea to know your test results and keep a list of the medicines you take. When should you call for help? Share this information with your partner or a friend. They can help you watch for warning signs. Call 911 anytime you think you may need emergency care. For example, call if: You passed out (lost consciousness). You have a seizure. Call your doctor now or seek immediate medical care if: You have symptoms of preeclampsia, such as: Sudden swelling of your face, hands, or feet. New vision problems (such as dimness, blurring, or seeing spots). A severe headache. Your blood pressure is very high, such as 160/110 or higher. Your blood pressure is higher than your doctor told you it should be, or it rises quickly. You have new nausea or vomiting. You have pain in your belly or pelvis. Watch closely for changes in your health, and be sure to contact your doctor if: You gain weight rapidly. Where can you learn more? Go to [email or web address] and sign in to your [employer] account. Enter Q718 in the Search Health Information box to learn more about Learning About Preeclampsia After Childbirth. If you do not have an account, please click on the Sign Up Now link. Current as of: October 14, 2021 Content Version: 13.4 [employer]. Care instructions adapted under license by [employer]. If you have questions about a medical condition or this instruction, always ask your healthcare professional. [employer] disclaims any warranty or liability for your use of this information. documented in this encounter [employer] Phone: 05-25-2022 Evaluation note Diagnosis PLTCS 05/25/22 F Apg Wt 4#15; PLTCS 05/25/22 F Apg 8/9 Wt 4#15- Primary delivery, without mention of indication, delivered, with or without mention of antepartum condition Eclampsia (G6) Other convulsions state Routine follow-up Postoperative state Other postprocedural status documented in this encounter [employer] Phone: [phone] Hospital Discharge instructions* Instructions* Pilar Garcia MD - 09/19/2019 Go immediately from here to the [facility] OB department to be evaluated by the OB nurse. Donot stop anywhere on the way. Do not eat or drink before getting there. * Attachments The following attachments cannot be sent through Care Everywhere. * : Abdominal Pain (Grenadian) [facility]* Diagnosis Sinus congestion Other diseases of nasal cavity and sinuses Cough Fever, unspecified fever cause [facility]* Diagnosis Lower abdominal pain- Primary Abdominal pain, other specified site Complication of in second trimester [facility]* Diagnosis Acute pharyngitis, unspecified etiology- Primary documented in this encounter [employer] Phone: evaluation note* Diagnosis Left flank pain- Primary Abdominal pain, unspecified site documented in this encounter [employer] [facility] Discharge instructions* Attachments The following attachments cannot be sent through Care Everywhere. 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 ACP-Advance Directive ACP-Power of Fruit Or Nut Picker Latest Code Status on File Code Status Date Activated Date Inactivated Comments Full Code 08/15/2017 4:59 PM 08/15/2017 9:37 PM Full Code 07/14/2015 12:36 PM 07/14/2015 3:17 PM Full Code 07/14/2015 9:31 AM 07/14/2015 12:36 PM Documents on File Type Date Recorded 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 Advance Directives and Living Will Power of Fruit Or Nut Picker Latest Code Status on File Code Status Date Activated Date Inactivated Comments Full Code 05/25/2022 8:24 PM Full Code 05/25/2022 2:37 PM 05/25/2022 4:14 PM Full Code 08/15/2017 4:59 PM 08/15/2017 9:37 PM Full Code 07/14/2015 12:36 PM 07/14/2015 3:17 PM Full Code 07/14/2015 9:31 AM 07/14/2015 12:36 PM Latest Code Status on File Code Status Date Activated Date Inactivated Comments Full Code 05/25/2022 8:24 PM 05/29/2022 6:21 PM Full Code 05/25/2022 2:37 PM 05/25/2022 4:14 PM Full Code 08/15/2017 4:59 PM 08/15/2017 9:37 PM Latest Code Status on File Code Status Date Activated Date Inactivated Comments Full Code 05/25/2022 8:24 PM 05/29/2022 6:21 PM Code Status History Code Status Date Activated Date Inactivated Comments Full Code 05/25/2022 2:37 PM 05/25/2022 4:14 PM Full Code 08/15/2017 4:59 PM 08/15/2017 9:37 PM Full Code 07/14/2015 12:36 PM 07/14/2015 3:17 PM Full Code 07/14/2015 9:31 AM 07/14/2015 12:36 PM Discharge Instructions * Attachments The following attachments cannot be sent through Care Everywhere. * Sore Throat (Grenadian) * : Morning Sickness (Grenadian) * Back: Strain (Grenadian) documented in this encounter Summary Purpose Family History No Family History Records FoundNo Family History Records FoundNo Family History Records FoundNo Family History Records FoundNo Family History Records FoundNo Family History Records Found Reason for Referral Specialty Diagnoses / Procedures Referred By Contac t Referred To Contact Radiology Diagnoses Left flank pain Procedures US RETROPERITONEAL COMPLETE Jeronimo Fofana, DO [address] [place] [address] Referral ID Status Reason Start Date Expiration Date Visits Re quested Visits Authorized [id number] Open 03/08/2023 03/07/2024 1 1 Additional Source Comments Reason for Visit (unrecogniz ed section and content) Reason Comments Emesis states started vomit ing yesterday , blood present in emesis Back Pain mid lower back start ed 3 days ago, yesterday was radiating down left leg Reason Comments Abdominal Pain pt states she has be en having lower abd cramping since 9 am, no vaginal bleeding Specialty Diagnoses / Procedures Referred By Contac t Referred To Contact Diagnoses Eclampsia Tammy Cherry MD [address] [place] [id number] [facility] [address] [place] [address] Referral ID Status Reason Start Date Expiration Date Visits Re quested Visits Authorized [id number] 1 1 Reason Comments Pharyngitis C/o sore throat for 4 days. Reason Comments Flank Pain left flank pain, pt has been taking Macrobid for five days with no improvement Ordered Prescriptions (unrec ognized section and content) Prescription Sig Dispensed Refills Start Date End Da te NIFEdipine (PROCARDIA XL) 30 MG extended release tablet Take 1 tablet by mouth daily 30 tablet 3 05/29/2022 06/28/2022 ondansetron (ZOFRAN ODT) 4 MG disintegrating tablet Take 1 tablet by mouth every 8 hours as needed for Nausea or Vomiting 10 tablet 0 05/29/2022 06/13/2022 ferrous sulfate (IRON 325) 325 (65 Fe) MG tablet Take 1 tablet by mouth 2 times daily 60 tablet 5 05/26/2022 simethicone (MYLICON) 80 MG chewable tablet Take 1 tablet by mouth 4 times daily as needed for Flatulence 30 tablet 1 05/25/2022 sennosides-docusate sodium (SENOKOT-S) 8.6-50 MG tablet Take 1 tablet by mouth daily 30 tablet 1 05/25/2022 oxyCODONE (ROXICODONE) 5 MG immediate release tabletIndications:Akbar an delivery delivered Take 1 tablet by mouth every 6 hours as needed for Pain for up to 5 days. Intended supply: 5 days. Take lowest dose possible to manage pain 20 tablet 0 05/25/2022 05/30/2022 ibuprofen (ADVIL;MOTRIN) 600 MG tablet Take 1 tablet by mouth every 6 hours as needed for Pain 30 tablet 1 05/25/2022 ondansetron (ZOFRAN ODT) 4 MG disintegrating tablet Take 1 tablet by mouth every 8 hours as needed for Nausea or Vomiting 20 tablet 0 05/25/2022 05/29/2022 Prescription Sig Dispensed Refills Start Date End Da te ibuprofen (ADVIL;MOTRIN) 100 MG/5ML suspension Take 30 mLs by mouth every 6 hours as needed for Fever 240 mL 3 11/14/2022 11/19/2022 amoxicillin (AMOXIL) 250 MG/5ML suspension Take 10 mLs by mouth 3 times daily for 10 days 300 mL 0 11/14/2022 11/24/2022 Scheduled Active and Recently Administ ered Medications (unrecognized section and content) Medication Order 05/27/2022 05/28/2022 05/29/2022 acetaminophen (TYLENOL) tablet 1,000 mg 1,000 mg, Oral, EVERY 6 HOURS, First dose on Tue05/25/22 at 1630, Until Discontinued, Maximum dose of acetaminophen is 4000mg from all sources in 24 hours. Alternate ibuprofen and acetaminophen every 4 hours. 0240 (Given - Provider: Rayne Bonilla RN)0825 (Given - Provider: Lory Kaba RN)1416 (Given - Provider: Lory Kaba RN)2139 (Given - Provider: Mónica Kong RN - Comment: patient off unit) 024 (Given - Provider: Mónica Kong RN)0836 (Given - Provider: Maritza Martinez RN)2124 (Given - Provider: Evelia Yu RN - Comment: Pt was in NICU)2129 (Not Given - Provider: Evelia Yu RN - Reason: Contraindicated - Comment: Given at 2124) 0250 (Given - Provider: Evelia Yu RN)0853 (Given - Provider: Robyn Interiano RN)1530 (Due - Provider: Ross Ashley [facility])2129 (Due - Provider: Ross Ashley RP) cephALEXin (KEFLEX) capsule 500 mg (COMPLETED) 500 mg, Oral, EVERY 8 HOURS SCHEDULED (3 times per day), 6 doses, First dose on Tue05/25/22 at 1630, Last dose on Tue05/27/22 at 1400, Antimicrobial Indications: Surgical Prophylaxis 0624 (Given - Provider: Rayne Bonilla RN)1548 (Given - Provider: Lory Kaba RN) docusate sodium (COLACE) capsule 100 mg 100 mg, Oral, 2 TIMES DAILY, First dose on Tue05/25/22 at 2100, Until Discontinued, Do not crush or break. 0826 (Given - Provider: Lory Kaba RN)214 (Given - Provider: Mónica Kong RN) 0836 (Given - Provider: Maritza Martinez RN)2124 (Given - Provider: Evelia Yu RN) 0853 (Given - Provider: Robyn Interiano RN)2100 (Due) enoxaparin (LOVENOX) injection 40 mg 40 mg, SubCUTAneous, DAILY, First dose on Tue05/26/22 at 0900, Until Discontinued, Indication of Use: Prophylaxis-DVT/PE 825 (Given - Provider: Lory Kaba RN) 08 (Given - Provider: Maritza Martinez RN) 0853 (Given - Provider: Robyn Interiano RN) ferrous sulfate (FE TABS 325) EC tablet 325 mg 325 mg, Oral, DAILY WITH BREAKFAST, First dose on Tue05/26/22 at 1100, Until Discontinued 825 (Given - Provider: Lory Kaba RN) 835 (Given - Provider: Maritza Martinez RN) 0853 (Given - Provider: Robyn Interiano RN) ibuprofen (ADVIL;MOTRIN) tablet 800 mg 800 mg, Oral, EVERY 8 HOURS, First dose on Tue05/26/22 at 1600, Until Discontinued, Once tolerating PO, discontinue Toradol and begin ibuprofen 8 hours after the final dose of Toradol. Alternate ibuprofen and acetaminophen every 4 hours. 0142 (Given - Provider: Rayne Bonilla RN)1019 (Given - Provider: Lory Kaba RN)1829 (Given - Provider: Lory Kaba RN) 0246 (Given - Provider: Mónica Kong RN)1302 (Given - Provider: Maritza Martinez RN)2124 (Given - Provider: Evelia Yu RN - Comment: Pt was in NICU) 0647 (Given - Provider: Evelia Yu RN)1030 (Due - Provider: Ross Ashley RP)1830 (Due - Provider: Ross Ashley RPH) metroNIDAZOLE (FLAGYL) tablet 500 mg (COMPLETED) 500 mg, Oral, EVERY 8 HOURS SCHEDULED (3 times per day), 6 doses, First dose on Tue05/25/22 at 1630, Last dose on Tue05/27/22 at 1400, Antimicrobial Indications: Surgical Prophylaxis 0624 (Given - Provider: Rayne Bonilla RN)1548 (Given - Provider: Lory Burling, RN) NIFEdipine (PROCARDIA XL) extended release tablet 30 mg 30 mg, Oral, DAILY, First dose on Tue05/28/22 at 1230, Until Discontinued, Do not crush or break. 1311 (Given - Provider: Maritza Martinez RN) 0853 (Given - Provider: Robyn Interiano RN) polyethylene glycol (GLYCOLAX) packet 17 g 17 g, Oral, DAILY, First dose on Tue05/25/22 at 1630, Until Discontinued 0826 (Given - Provider: Lory Kaba RN) 0837 (Given - Provider: Maritza Martinez RN) 0852 (Given - Provider: Robyn Interiano RN) vitamin plus iron 29-1 MG tablet 1 tablet 1 tablet, Oral, DAILY, First dose on Tue05/25/22 at 1630, Until Discontinued, Begin when normal bowel activity resumes. 0826 (Given - Provider: Lory Kaba RN) 0836 (Given - Provider: Maritza Martinez RN) 0853 (Given - Provider: Robyn Interiano RN) scopolamine (TRANSDERM-SCOP) transdermal patch 1 patch 1 patch, TransDERmal, Administer over 72 Hours, EVERY 72 HOURS, First dose on Tue05/25/22 at 1700, delivers 1 mg over 3 days. Apply patch to hairless area behind the ear. 1658 (Due: Patch Removed - Provider: Soham Moreno RN)1700 (Due) sodium chloride flush 0.9 % injection 5-40 mL 5-40 mL, IntraVENous, EVERY 12 HOURS SCHEDULED (2 times per day), First dose on Tue05/25/22 at 2100, Until Discontinued, For Line Patency: Peripheral IV = 5 mL; Midline or Central Line = 10 mL/lumen. If following IV push medication, administer flush at same rate as the IV push. Flush volume is determined by type of infusion therapy being given. For non-viscous solutions use: Peripheral IV = 5 mL Midline or Central Line = 10 mL/lumen For viscous solutions (i.e. blood components, parenteral nutrition, contrast media, or after obtaining blood sample) use: Peripheral IV = 10 mL Midline or Central Line = 20 mL/lumen 0827 (Given - Provider: Lory Kaba RN)2140 (Given - Provider: Mónica Kong RN) 0900 (Due)1950 (Not Given - Provider: Evelia Yu RN - Reason: Loss of IV access) 0900 (Due)2100 (Due) [place]-Sssbs Pertussis (BOOSTRIX) injection 0.5 mL 0.5 mL, IntraMUSCular, PRIOR TO DISCHARGE, 1 dose, Starting on Tue05/25/22 at 1614, Until Discontinued, If not previously administered during at 27-36 weeks as recommended by CDC. PRN Medication Order 05/27/2022 05/28/2022 05/29/2022 0.9 % sodium chloride infusion IntraVENous, at 5-250 mL/hr, PRN, if patient receiving piggyback infusions and maintenance fluids are not ordered OR KVO fluids to protect IV site / prevent frequent line interruptions/ long duration, Starting on Tue05/25/22 at 1614, For piggyback infusion, administer at same rate as piggyback for a total of 25 mL. Enter 25 mL into dose field and piggyback rate into rate field of order. If piggyback is infusing at a rate less than 100 mL/hr, enter 25 mL into dose field and 100 mL/hr into rate field of order. For KVO fluids, enter rate of 20 mL/hr or less into rate field of order. benzocaine-menthol (CEPACOL SORE THROAT) lozenge 1 lozenge 1 lozenge, Oral, EVERY 2 HOURS PRN, Starting on Nohelia 05/27/22 at 0628, Until Discontinued, Sore Throat 1255 (Given - Provider: Lory Kaba RN) bisacodyl (DULCOLAX) suppository 10 mg 10 mg, Rectal, DAILY PRN, Starting on Tue05/25/22 at 1614, Until Discontinued, Constipation diphenhydrAMINE (BENADRYL) injection 50 mg 50 mg, IntraVENous, EVERY 6 HOURS PRN, Starting on Tue05/26/22 at 0423, Until Discontinued, Itching, Sleep, Anxiety 2141 (Given - Provider: Mónica Kong RN) diphenhydrAMINE (BENADRYL) tablet 25 mg 25 mg, Oral, EVERY 6 HOURS PRN, Starting on Tue05/25/22 at 211, Until Discontinued, Itching 2127 (Given - Provider: Evelia Yu, RN) doxyLAMINE succinate (GNP SLEEP AID) tablet 25 mg 25 mg, Oral, NIGHTLY PRN, Starting on Tue05/26/22 at 0519, Until Discontinued, Sleep famotidine (PEPCID) tablet 20 mg 20 mg, Oral, 2 TIMES DAILY PRN, Starting on Tue05/25/22 at 1614, Until Discontinued, GERD, Renal dose per pharmacy for peptic ulcer prophylaxis. 0836 (Given - Provider: Maritza Martinez RN) Lanolin Hydrous OINT Topical, EVERY 1 HOUR PRN, Dry Skin, nipple discomfort, Starting on Tue05/25/22 at 1614 magnesium hydroxide (MILK OF MAGNESIA) 400 MG/5ML suspension 30 mL 30 mL, Oral, DAILY PRN, Starting on Tue05/25/22 at 1614, Until Discontinued, Constipation melatonin tablet 5 mg 5 mg, Oral, NIGHTLY PRN, Starting on Tue05/25/22 at 2121, Until Discontinued, Sleep naloxone (NARCAN) injection 0.4 mg 0.4 mg, IntraVENous, PRN, Starting on Tue05/25/22 at 1614, Until Discontinued, Opioid Reversal ondansetron (ZOFRAN) injection 4 mg 4 mg, IntraVENous, EVERY 6 HOURS PRN, Starting on Tue05/25/22 at 1614, Until Discontinued, Nausea oxyCODONE (ROXICODONE) immediate release tablet 10 mg(Linked Group 1) 10 mg, Oral, EVERY 4 HOURS PRN, Starting on Tue05/26/22 at 0503, Until Discontinued, Pain Severe (7-10) 0240 (Given - Provider: Rayne Bonilla RN)0624 (Given - Provider: Rayne Bonilla RN)1019 (Given - Provider: Lory Kaba RN)1416 (Given - Provider: Lory Kaba RN)1829 (Given - Provider: Lory Kaba RN)2259 (Given - Provider: Mónica Kong RN) 0246 (Given - Provider: Mónica Kong RN)0836 (Given - Provider: Maritza Martinez RN)1834 (Given - Provider: Maritza Martinez, CATHI)2232 (Given - Provider: Evelia Yu, CATHI) 0250 (Given - Provider: Evelia Yu RN)0852 (Given - Provider: Robyn Interiano RN)1256 (Given - Provider: Robyn Itneriano RN) oxyCODONE (ROXICODONE) immediate release tablet 5 mg(Linked Group 1) 5 mg, Oral, EVERY 4 HOURS PRN, Starting on Tue05/26/22 at 0503, Until Discontinued, Pain Moderate (4-6) 0240 (See Alternative - Provider: Rayne Bonilla RN)0624 (See Alternative - Provider: Rayne Bonilla RN)1019 (See Alternative - Provider: Lory Kaba RN)1416 (See Alternative - Provider: Lory Kaba RN)1829 (See Alternative - Provider: Lory Kaba RN)2259 (See Alternative - Provider: Mónica Kong RN) 0246 (See Alternative - Provider: Mónica Kong RN)0836 (See Alternative - Provider: Maritza Martinez RN)1834 (See Alternative - Provider: Maritza Martinez RN)2232 (See Alternative - Provider: Evelia Yu RN) 0250 (See Alternative - Provider: Evelia Yu RN)0852 (See Alternative - Provider: Robyn Interiano, CATHI)1256 (See Alternative - Provider: Robyn Interiano RN) oxytocin (PITOCIN) 10 unit bolus from the bag 166.7 mL (rounded from 166.6667 mL = 10 Units), IntraVENous, PRN, 1 dose, Starting on Tue05/25/22 at 1437, Until Discontinued, Bleeding, Post- use ONLY after delivery of baby/ excessive bleeding/ uterine atony. Bolus for bag to infuse at 909 ml/hour for 11 minutes (10 units in 167ml). simethicone (MYLICON) chewable tablet 80 mg 80 mg, Oral, EVERY 6 HOURS PRN, Starting on Tue05/25/22 at 1614, Until Discontinued, Cramping, Flatulence sodium chloride flush 0.9 % injection 5-40 mL 5-40 mL, IntraVENous, PRN, Starting on Tue05/25/22 at 1614, Until Discontinued, Line Care, After every IV line use, For Line Patency: Peripheral IV = 5 mL; Midline or Central Line = 10 mL/lumen. If following IV push medication, administer flush at same rate as the IV push. Flush volume is determined by type of infusion therapy being given. For non-viscous solutions use: Peripheral IV = 5 mL Midline or Central Line = 10 mL/lumen For viscous solutions (i.e. blood components, parenteral nutrition, contrast media, or after obtaining blood sample) use: Peripheral IV = 10 mL Midline or Central Line = 20 mL/lumen Linked Groups Order Group 1: oxyCODONE (ROXICODONE) immediate release tablet 5 mgJump to med 5 mg, Oral, EVERY 4 HOURS PRN, Starting on Tue05/26/22 at 0503, Until Discontinued, Pain Moderate (4-6) Or oxyCODONE (ROXICODONE) immediate release tablet 10 mgJump to med 10 mg, Oral, EVERY 4 HOURS PRN, Starting on Tue05/26/22 at 0503, Until Discontinued, Pain Severe (7-10) Care Teams (unrecognized sec tion and content) Hogshead Opener Relationship Specialty Start Date End Date Racquel Simpson MD [address] [place] [address] PCP - General 04/22/16 Hogshead Opener Relationship Specialty Start Date End Date Racquel Simpson MD [address] [place] [address] PCP - General 04/22/16 Hogshead Opener Relationship Specialty Start Date End Date Racquel Simpson MD [address] [place] [address] PCP - General 04/22/16 INFORMATION SOURCE (unrecogn ized section and content) DATE CREATED AUTHOR 06/02/2022 [facility] DATE CREATED AUTHOR AUTHOR'S ORGANIZ ATION 01/04/2023 Li arrieta DATE CREATED AUTHOR AUTHOR'S ORGANIZ ATION 03/13/2023 [facility] Lakhwinder clayton DATE CREATED AUTHOR AUTHOR'S ORGANIZ ATION 03/18/2023 [facility] DATE CREATED AUTHOR AUTHOR'S ORGANIZ ATION 05/04/2023 [facility] DATE CREATED AUTHOR AUTHOR'S ORGANIZ ATION 08/19/2023 [facility] FOR RECORDS PERTAINING TO PATIENTS WHO ARE OR HAVE BEEN ENROLLED IN A CHEMICAL DEPENDENCY/SUBSTANCEABUSE PROGRAM, SOME INFORMATION MAY BE OMITTED. This clinical summary was aggregated from multiple sources. Caution should be exercised in using it in the provision of clinical care. This summary normalizes information from multiple sources, and as a consequence, information in this document may materially change the coding, format and clinical context of patient data. In addition, data may be omitted in some cases. CLINICAL DECISIONS SHOULD BE BASED ON THE PRIMARY CLINICAL RECORDS. [facility] [employer] [facility]. provides no warranty or guarantee of the accuracy or completeness of information in this document.
== END 2023-08-23 08:41 | disposition home or self-care (01) ==
LOC: US 08:40
PROVIDERS: PCP Family Medicine; Visit Provider Physician Assistant
DX: Z36.89 Encounter for other specified antenatal screening (principal); Z87.59 Personal history of other complications of pregnancy, childbirth and the puerperium; Z87.51 Personal history of pre-term labor; O09.33 Supervision of pregnancy with insufficient antenatal care, third trimester; Z3A.31 31 weeks gestation of pregnancy
CPT/HCPCS: 76805; 76817

== ENCOUNTER 2023-08-31 11:53 | Emergency (ER) | payer OTHER, SELFPAY ==
[2023-08-31] VITALS (34 sets, daily range): BP systolic 114–177; BP diastolic 71–116; PULSE 88–126; RESP 15–27; TEMP 36.5; O2SAT 95–99; BMI 42.9
--- OUTSIDE RECORDS SUMMARY | 2023-08-31 12:03 | XMS_ITS | CCD ---
Author Name Unknown Address [address] [facility] [address] [place] [address] Organization [facility] Care Team Providers Care Supervisor Train Operations Name Role Phone Racquel Simpson Primary Care Provider RACQUEL SIMPSON Primary Care Unavailable TAMMY CHERRY Admitting Unavailable TAMMY CHERRY Attending Unavailable Racquel Simpson MD Primary Care Provider [phone] MAURISIO ., DR ODONNELL Primary Care Unavailable MICHAELA ., DR KRAMER Consulting Unavailabl e MAURISIO ., DR ODONNELL Attending Unavailable MAURISIO ., DR ODONNELL Admitting Unavailable BLOOMFIELD, DR AARON Owus[employer] Consulting Unavailable MAURISIO ., [...] [CIPROFLOXACIN] Drug Allergy 2 Nausea And Vomiting [place], [place] (9 sources) Codeine; Translations: [CODEINE] Drug Allergy 2 Seizure [place], [place] (8 sources) Promethazine Drug Allergy 2 Nausea And Vom[place] (1 source) Ciprofloxacin Drug Allergy 5 [facility] (1 source) Codeine Drug Allergy 5 [facility] (1 source) Levamisole Drug Allergy 5 [facility] (1 source) Promethazine; Translations: [PROMETHAZINE] Drug Allergy 4 [facility] Repository Medications Current Medications Medication Drug Class(es) Dates Sig (Normalized) Sig (Original) [id number] 200 actuat albuterol 0.09 mg/actuat metered dose [...] Hives, docusate sodium 50 mg / sennosides, senior living 8.6 mg oral tablet (2 sources) Start: [...] M G/ML injection HYDROmorphone (DILAUDID) 1 mg/mL BOTTOM LOADER (1 source) Start: 05-25-2022 End: 05-26-2022 HYDROmorphone (DILAUDID) 1 mg/mL BOTTOM LOADER 1 ml ketorolac tromethamine 30 mg/ml cartridge [...] premix Start: 05-25-2022 End: 05-26-2022 magnesium sulfate (85087 mg/ 500mL infusion) Start: 05-25-2022 End: 05-25-2022 [...] Until Discontinued, Opioid Reversal polyethylene glycol 3350 88708 mg powder for oral solution (1 source) [...] sources) Taking high risk medication; Translations: [Other terminal manager (current) drug therapy] Onset: 04-01-2015 04-01-2015 Episodic [...] Test Name Value Interpretation Reference Range Facility Longterm Documentson 05-03-2023 Longterm Documents [id number]#1. 00CD:[address] [facility] CBC panel Auto (Bld)on 03-17 Erythrocyte distribution width (RBC) [Ratio] 13.2 % Normal 11.5-15.0 [facility] Comment on above: Order Comment: Speci men Type: BLOOD SPECIMENOrdering Facility: [facility] Address: [address] [place] [address] Performed By: #### 5 8410-2 ####[facility] [id number] [place] [address] [place] Hematocrit (Bld) [Volume fraction] 35.1 % Low 36.0-46.0 [facility] Comment on above: Order Comment: Speci men Type: BLOOD SPECIMENOrdering Facility: [facility] Address: [address] [place] [address] Performed By: #### 5 8410-2 ####[facility] [id number] [place] [address] [place] Hemoglobin (Bld) [Mass/Vol] 11.3 g/dL Low 11.5-15.5 [facility] Comment on above: Order Comment: Speci men Type: BLOOD SPECIMENOrdering Facility: [facility] Address: [address] [place] [address] Performed By: #### 5 8410-2 ####[facility] [id number] [address] [place] [facility] MCH (RBC) [Entitic mass] 26.3 pg Normal 26.0-34.0 [facility] Comment on above: Order Comment: Speci men Type: BLOOD SPECIMENOrdering Facility: [facility] Address: [address] [place] [address] Performed By: #### 5 8410-2 ####[facility] [id number] [address] [place] MCHC (RBC) [Mass/Vol] 32.2 g/dL Normal 30.5-36.0 [facility] Comment on above: Order Comment: Speci men Type: BLOOD SPECIMENOrdering Facility: [facility] Address: [address] [place] [address] Performed By: #### 5 8410-2 ####[facility] [id number] [address] [place] MCV (RBC) [Entitic vol] 81.6 fL Normal 80.0-100.0 [facility] Comment on above: Order Comment: Speci men Type: BLOOD SPECIMENOrdering Facility: [facility] Address: [address] [place] [address] Performed By: #### 5 8410-2 ####[facility] [id number] [address] [place] Nucleated RBC (Bld) [#/Vol] 10*3/uL Normal <0.01 [facility] Comment on above: Order Comment: Speci men Type: BLOOD SPECIMENOrdering Facility: [facility] Address: [address] [place] [address] Performed By: #### 5 8410-2 ####[facility] [id number] [address] [place] Platelet mean volume (Bld) [Entitic vol] 8.7 fL Low 9.0-12.7 [facility] Comment on above: Order Comment: Speci men Type: BLOOD SPECIMENOrdering Facility: [facility] Address: [address] [place], [place] [address] Performed By: #### 5 8410-2 ####[facility] [id number] [place] [address] [place] Platelets (Bld) [#/Vol] 482 10*3/uL High 150-400 [facility] Comment on above: Order Comment: Speci men Type: BLOOD SPECIMENOrdering Facility: [facility] Address: [address] [place], [place] [address] Performed By: #### 5 8410-2 ####[facility] [id number] [place] [address] [place] RBC (Bld) [#/Vol] 4.30 10*6/uL Normal 3.90-5.20 [facility] Comment on above: Order Comment: Speci men Type: BLOOD SPECIMENOrdering Facility: [facility] Address: [address] [place], [place] [address] Performed By: #### 5 8410-2 ####[facility] [id number] [place] [address] [place] WBC (Bld) [#/Vol] 10.57 10*3/uL Normal 3.70-11.00 [facility] Comment on above: Order Comment: Speci men Type: BLOOD SPECIMENOrdering Facility: [facility] Address: [address] [place], [place] [address] Performed By: #### 5 8410-2 ####[facility] [id number] [place] [address] [place] CNDSon 03-17-2023 CNDS HNO ID: [id number] Author: Manoj Ramos MD Service: General Internal [...] your kidney infection. Please follow-up with your manager installation doctor regarding ongoing antibiotic recommendations in LABS [...] ORAL Tylen (more content not included)... Normal [facility] Magnesium SerPl-ncon 03-17 Magnesium [Mass/Vol] 2.0 mg/dL Normal 1.7-2.3 [facility] Comment on above: Order Comment: Speci men Type: BLOOD SPECIMENOrdering Facility: [facility] Address: [address] Performed By: #### 2 4362-6, ####[facility] [id number] [place] [address] [place] Renal function [address] [place] [address] 03-17-2023 Albumin [Mass/Vol] 3.7 g/dL Low 3.9-4.9 [facility] Comment on above: Order Comment: Speci men Type: BLOOD SPECIMENOrdering Facility: [facility] Address: [address] Performed By: #### 2 436-6, ####[facility] [id number] [place] [address] [place] Anion gap [Moles/Vol] 15 mmol/L Normal 9-18 [facility] Comment on above: Order Comment: Speci men Type: BLOOD SPECIMENOrdering Facility: [facility] Address: [address] [place] [address] Performed By: #### 2 436-6, ####[facility] [id number] [place] [address] [place] Calcium [Mass/Vol] 9.6 mg/dL Normal 8.5-10.2 [facility] Comment on above: Order Comment: Speci men Type: BLOOD SPECIMENOrdering Facility: [facility] Address: [address] Performed By: #### 2 43609-27, ####[facility] [id number] [place] [address] [place] Chloride [Moles/Vol] 99 mmol/L Normal 97-105 [facility] Comment on above: Order Comment: Speci men Type: BLOOD SPECIMENOrdering Facility: [facility] Address: [address] [place] [address] Performed By: #### 2 43626, ####[facility] [id number] [place] [address] [place] CO2 [Moles/Vol] 20 mmol/L Low 22-30 [facility] Comment on above: Order Comment: Speci men Type: BLOOD SPECIMENOrdering Facility: [facility] Address: [address] [place] [address] Performed By: #### 2 43609-27, ####[facility] [id number] [place] [address] [place] Creatinine [Mass/Vol] 0.67 mg/dL Normal 0.58-0.96 [facility] Comment on above: Order Comment: Speci men Type: BLOOD SPECIMENOrdering Facility: [facility] Address: [address] [place] [address] Performed By: #### 2 43626, ####[facility] [id number] [address] [place] ESTIMATED GLOMERULAR FILTRATION RATE 121 mL/min/1.73m??? Normal >=60 [facility] Comment on above: Order Comment: Speci men Type: BLOOD SPECIMENOrdering Facility: [facility] Address: [address] [place] [address] Result Comment: Marisa mated Glomerular Filtration Rate [...] actual GFR. Performed By: #### 2 4362-6, ####[facility] [id number] [address] [address] [place] Glucose [Mass/Vol] 130 mg/dL High 74-99 [facility] Comment on above: Order Comment: Tee francisco Type: BLOOD SPECIMENOrdering Facility: [facility] Address: [address] [place] [address] Result Comment: The [place] [employer] (ADA) provides guidance for cutoff [...] Standards of Medical Care in Diabetes 2016, [place] [employer]. Diabetes Care. 2016.39(Suppl 1). Performed By: #### 2 436-6, ####[facility] [id number] [place] [address] [place] Phosphate [Mass/Vol] 3.7 mg/dL Normal 2.7-4.8 [facility] Comment on above: Order Comment: Tee francisco Type: BLOOD SPECIMENOrdering Facility: [facility] Address: [address] [place] [address] Performed By: #### 2 436-, ####[facility] [id number] [address] [address] [place] Potassium [Moles/Vol] 3.9 mmol/L Normal 3.7-5.1 [facility] Comment on above: Order Comment: Speci men Type: BLOOD SPECIMENOrdering Facility: [facility] Address: [address] [place] [address] Performed By: #### 2 4362-6, ####[facility] [id number] [address] [place] Sodium [Moles/Vol] 134 mmol/L Low 136-144 [facility] Comment on above: Order Comment: Speci men Type: BLOOD SPECIMENOrdering Facility: [facility] Address: [address] [place] [address] Performed By: #### 2 4362-6, ####[facility] [id number] [address] [place] Urea nitrogen [Mass/Vol] 12 mg/dL Normal 7-21 [facility] Comment on above: Order Comment: Speci men Type: BLOOD SPECIMENOrdering Facility: [facility] Address: [address] [place] [address] Performed By: #### 2 4362-6, ####[facility] [id number] [address] [place] ALLIED HEALTHon 03-16-2023 ALLIED HEALTH HNO ID: [id number] Author: Heather Mcnair RT(R) Service: ? Author [...] Dorian(R) March 16, 2023 9:16 PM Normal [facility] CBC panel Auto (Bld)on 03-16 Erythrocyte distribution width (RBC) [Ratio] 13.4 % Normal 11.5-15.0 [facility] Comment on above: Order Comment: Speci men Type: BLOOD SPECIMENOrdering Facility: [facility] Address: [address] [place] [address] Performed By: #### 5 8410-2 ####[facility] [id number] [address] [place] Hematocrit (Bld) [Volume fraction] 33.1 % Low 36.0-46.0 [facility] Comment on above: Order Comment: Speci men Type: BLOOD SPECIMENOrdering Facility: [facility] Address: [address] [place] [address] Performed By: #### 5 8410-2 ####[facility] [id number] [address] [place] Hemoglobin (Bld) [Mass/Vol] 10.7 g/dL Low 11.5-15.5 [facility] Comment on above: Order Comment: Speci men Type: BLOOD SPECIMENOrdering Facility: [facility] Address: [address] [place] [address] Performed By: #### 5 8410-2 ####[facility] [id number] [place] [address] [place] MCH (RBC) [Entitic mass] 26.4 pg Normal 26.0-34.0 [facility] Comment on above: Order Comment: Speci men Type: BLOOD SPECIMENOrdering Facility: [facility] Address: [address] [place], [place] [address] Performed By: #### 5 8410-2 ####[facility] [id number] [address] [place] [facility] MCHC (RBC) [Mass/Vol] 32.3 g/dL Normal 30.5-36.0 [facility] Comment on above: Order Comment: Speci men Type: BLOOD SPECIMENOrdering Facility: [facility] Address: [address] Performed By: #### 5 8410-2 ####[facility] [id number] [place] [address] [place] MCV (RBC) [Entitic vol] 81.7 fL Normal 80.0-100.0 [facility] Comment on above: Order Comment: Speci men Type: BLOOD SPECIMENOrdering Facility: [facility] Address: [address] [place], [place] [address] Performed By: #### 5 8410-2 ####[facility] [id number] [place] [address] [place] Nucleated RBC (Bld) [#/Vol] 10*3/uL Normal <0.01 [facility] Comment on above: Order Comment: Speci men Type: BLOOD SPECIMENOrdering Facility: [facility] Address: [address] [place], [place] [address] Performed By: #### 5 8410-2 ####[facility] [id number] [address] [place] Platelet mean volume (Bld) [Entitic vol] 9.0 fL Normal 9.0-12.7 [facility] Comment on above: Order Comment: Speci men Type: BLOOD SPECIMENOrdering Facility: [facility] Address: [address] [place], [place] [address] Performed By: #### 5 8410-2 ####[facility] [id number] [place] [address] [place] Platelets (Bld) [#/Vol] 444 10*3/uL High 150-400 [facility] Comment on above: Order Comment: Speci men Type: BLOOD SPECIMENOrdering Facility: [facility] Address: [address] [place] [address] Performed By: #### 5 8410-2 ####[facility] [id number] [place] [address] [facility] [place] RBC (Bld) [#/Vol] 4.05 10*6/uL Normal 3.90-5.20 [facility] Comment on above: Order Comment: Speci men Type: BLOOD SPECIMENOrdering Facility: [facility] Address: [address] [place] [address] Performed By: #### 5 8410-2 ####[facility] [id number] [place] [address] [facility] WBC (Bld) [#/Vol] 8.78 10*3/uL Normal 3.70-11.00 [facility] Comment on above: Order Comment: Speci men Type: BLOOD SPECIMENOrdering Facility: [facility] Address: [address] [place] [address] Performed By: #### 5 8410-2 ####[facility] [id number] [address] OF [facility] CONSULT PROGon 03-16-2023 CONSULT PROG HNO ID: [id number] Author: Abbie Cifuentes MD Service: Obstetrics Author Type: Physician Type: Consult Progress Note Filed: 03/16/2023 7:27 AM Note Text: sonar subsystem equipment operator consult progress note Review the US on 03/15 with patient : Single , Live Intrauterine gestation / 8 weeks 2 days by CRL Blood Type : O positive Patient will follow up with her local sonar subsystem equipment operator to continue care. Stockkeeper sign off If any question , please [place] x [phone]. Abbie Cifuentes MDt 03/16/2023 7:27 AM Normal [facility] MRI ABDOMEN WO IVCONon 03-16 MRI ABDOMEN [...] NO HYDRONEPHROSIS. COMMUNICATION: Communicated with [facility] on 03/17/2023 9:32 AM via verbal communication. Resident Surgeon: PSCB Transcribe Date/Time: Mar 17 2023 8:02A Dictated by : BRANDEN DE LA TORRE MD This examination was interpreted and the report reviewed and electronically signed by: JAZMIN VALENTE MD on Mar 17 2023 9:50AM EST [id number] Normal [facility] Magnesium SerPl-mCncon 03-16 Magnesium [Mass/Vol] 1.9 mg/dL Normal 1.7-2.3 [facility] Comment on above: Order Comment: Speci men Type: BLOOD SPECIMENOrdering Facility: [facility] Address: [address] [place], [place] [address] Performed By: #### 1 9123-9, 30198-6 ####[facility] [id number] [place] [address] [place] Renal function 2000 panelon 03-16-2023 Albumin [Mass/Vol] 3.6 g/dL Low 3.9-4.9 [facility] Comment on above: Order Comment: Speci men Type: BLOOD SPECIMENOrdering Facility: [facility] Address: [address] [place], [place] [address] Performed By: #### 1 9123-9, 99466-3 ####[facility] [id number] [place] [address] [place] Anion gap [Moles/Vol] 14 mmol/L Normal 9-18 [facility] Comment on above: Order Comment: Speci men Type: BLOOD SPECIMENOrdering Facility: [facility] Address: [address] [place], [place] [address] Performed By: #### 1 9123-9, 37559-6 ####[facility] [id number] [place] [address] [place] Calcium [Mass/Vol] 9.3 mg/dL Normal 8.5-10.2 [facility] Comment on above: Order Comment: Speci men Type: BLOOD SPECIMENOrdering Facility: [facility] Address: [address] [place], [place] [address] Performed By: #### 1 9123-9, 37873-1 ####[facility] [id number] [place] [address] [place] Chloride [Moles/Vol] 102 mmol/L Normal 97-105 [facility] Comment on above: Order Comment: Speci men Type: BLOOD SPECIMENOrdering Facility: [facility] Address: [address] [place] [address] Performed By: #### 1 9123-9, 96588-5 ####[facility] [id number] [address] CO2 [Moles/Vol] 20 mmol/L Low 22-30 [facility] Comment on above: Order Comment: Speci men Type: BLOOD SPECIMENOrdering Facility: [facility] Address: [address] [place] [address] Performed By: #### 1 9123-9, 87730-3 ####[facility] [id number] [address] Creatinine [Mass/Vol] 0.71 mg/dL Normal 0.58-0.96 [facility] Comment on above: Order Comment: Speci men Type: BLOOD SPECIMENOrdering Facility: [facility] Address: [address] [place] [address] Performed By: #### 1 9123-9, 69042-1 ####[facility] [id number] [address] ESTIMATED GLOMERULAR FILTRATION RATE 117 mL/min/1.73m??? Normal >=60 [facility] Comment on above: Order Comment: Speci men Type: BLOOD SPECIMENOrdering Facility: [facility] Address: [address] [place] [address] Result Comment: Marisa mated Glomerular Filtration Rate [...] actual GFR. Performed By: #### 1 9123-9, 72724-2 ####[facility] [id number] [place] [address] [place] Glucose [Mass/Vol] 125 mg/dL High 74-99 [facility] Comment on above: Order Comment: Speci men Type: BLOOD SPECIMENOrdering Facility: [facility] Address: [address] [place] [address] Result Comment: The [place] [employer] (ADA) provides guidance for cutoff [...] Standards of Medical Care in Diabetes 2016, [place] [employer]. Diabetes Care. 2016.39(Suppl 1). Performed By: #### 1 9123-9, 61856-4 ####[facility] [id number] [place] [address] [place] Phosphate [Mass/Vol] 3.7 mg/dL Normal 2.7-4.8 [facility] Comment on above: Order Comment: Tee francisco Type: BLOOD SPECIMENOrdering Facility: [facility] Address: [address] [place] [address] Performed By: #### 1 9123-9, 75823-1 ####[facility] [id number] [place] [address] [place] Potassium [Moles/Vol] 3.9 mmol/L Normal 3.7-5.1 [facility] Comment on above: Order Comment: Speci men Type: BLOOD SPECIMENOrdering Facility: [facility] Address: [address] [place] [address] Performed By: #### 1 9123-9, 19792-0 ####[facility] [id number] [place] [address] [place] Sodium [Moles/Vol] 136 mmol/L Normal 136-144 [facility] Comment on above: Order Comment: Speci men Type: BLOOD SPECIMENOrdering Facility: [facility] Address: [address] [place] [address] Performed By: #### 1 9123-9, 81750-7 ####[facility] [id number] [address] [place] Urea nitrogen [Mass/Vol] 10 mg/dL Normal 7-21 [facility] Comment on above: Order Comment: Speci men Type: BLOOD SPECIMENOrdering Facility: [facility] Address: [address] [place] [address] Performed By: #### 1 9123-9, 31011-0 ####[facility] [id number] [place] [address] [place] [facility] CBC panel Auto (Bld)on 03-15 Erythrocyte distribution width (RBC) [Ratio] 13.5 % Normal 11.5-15.0 [facility] Comment on above: Order Comment: Speci men Type: BLOOD SPECIMENOrdering Facility: [facility] Address: [address] [place] [address] Performed By: #### 5 8410-2 ####[facility] [id number] [place] [address] [place] Hematocrit (Bld) [Volume fraction] 32.4 % Low 36.0-46.0 [facility] Comment on above: Order Comment: Speci men Type: BLOOD SPECIMENOrdering Facility: [facility] Address: [address] [place] [address] Performed By: #### 5 8410-2 ####[facility] [id number] [place] [address] [place] Hemoglobin (Bld) [Mass/Vol] 10.4 g/dL Low 11.5-15.5 [facility] Comment on above: Order Comment: Speci men Type: BLOOD SPECIMENOrdering Facility: [facility] Address: [address] Performed By: #### 5 8410-2 ####[facility] [id number] [address] MCH (RBC) [Entitic mass] 26.6 pg Normal 26.0-34.0 [facility] Comment on above: Order Comment: Speci men Type: BLOOD SPECIMENOrdering Facility: [facility] Address: [address] [place], [place] [address] Performed By: #### 5 8410-2 ####[facility] [id number] [address] [place] MCHC (RBC) [Mass/Vol] 32.1 g/dL Normal 30.5-36.0 [facility] Comment on above: Order Comment: Speci men Type: BLOOD SPECIMENOrdering Facility: [facility] Address: [address] [place], [place] [address] Performed By: #### 5 8410-2 ####[facility] [id number] [address] [place] MCV (RBC) [Entitic vol] 82.9 fL Normal 80.0-100.0 [facility] Comment on above: Order Comment: Speci men Type: BLOOD SPECIMENOrdering Facility: [facility] Address: [address] [place], [place] [address] Performed By: #### 5 8410-2 ####[facility] [id number] [address] [place] Nucleated RBC (Bld) [#/Vol] 10*3/uL Normal <0.01 [facility] Comment on above: Order Comment: Speci men Type: BLOOD SPECIMENOrdering Facility: [facility] Address: [address] Performed By: #### 5 8410-2 ####[facility]IA [id number] [place] [address] [place] Platelet mean volume (Bld) [Entitic vol] 9.5 fL Normal 9.0-12.7 [facility] Comment on above: Order Comment: Speci men Type: BLOOD SPECIMENOrdering Facility: [facility] Address: [address] Performed By: #### 5 8410-2 ####[facility] [id number] [place] [address] [place] Platelets (Bld) [#/Vol] 450 10*3/uL High 150-400 [facility] Comment on above: Order Comment: Speci men Type: BLOOD SPECIMENOrdering Facility: [facility] Address: [address] Performed By: #### 5 8410-2 ####[facility] [id number] [place] [address] [place] RBC (Bld) [#/Vol] 3.91 10*6/uL Normal 3.90-5.20 [facility] Comment on above: Order Comment: Speci men Type: BLOOD SPECIMENOrdering Facility: [facility] Address: [address] [place] [address] Performed By: #### 5 8410-2 ####[facility] [id number] [place] [address] [place] WBC (Bld) [#/Vol] 10.48 10*3/uL Normal 3.70-11.00 [facility] Comment on above: Order Comment: Speci men Type: BLOOD SPECIMENOrdering Facility: [facility] Address: [address] [place], [place] [address] Performed By: #### 5 8410-2 ####[facility] LABCLIA [id number] [address] [place] CONSULTon 03-15-2023 CONSULT HNO ID: [id number] Author: Abbie Cifuentes MD Service: Gynecology Author [...] hr Seen and evaluated with Dr. Cifuentes, [employer] staff. Pretty Duncan DO Broker In Charge Resident, PGY-1 9:11 AM After 5pm and on weekends please page [phone]. SUBJECTIVE HPI: 32 year old with PMHx Stills disease, benign liver angioma s/p resection, at 8 weeks 6 days gestation (by LMP) admitted for pyelonephritis, seen by gynecology for vaginal spotting. States she began experiencing flank pain with hematuria, without dysuria or frequency, on February 22. Called her OB provider (Dr. Ricks at [facility]), who gave rx for macrobid. Had no [...] scheduled this Tuesday (03/18) Was transferred to [facility] for management given her history of [...] Mg, emergency CS. Delivered 9 mo ago [employer]PECT[employer] Hx: LMP: 01/12/23 Menses: regular every 28 [...] The remainde (more content not included)... Normal [facility] CRP SerPl-ncon 03-15-2023 CRP [Mass/Vol] 9.0 mg/dL High <0.9 [facility] Comment on above: Order Comment: Speci men Type: BLOOD SPECIMENOrdering Facility: [facility] Address: [address] [place] [address] Performed By: #### 1 988-5, 35104-6, 18712-2 ####[facility] LABCLIA [id number] [address] [place] MEDICAL EMERon 03-15-2023 MEDICAL DEVI HNO ID: [id number] Author: Jose De Jesus White APRN.LEGAL PROJECT MANAGER Service: Critical Care Author Type: Nurse Practitioner [...] bleeding HPI: Ms. Clements was transferred to [facility] 03/13 from [facility] for further mgmt of possible [...] Abdomen: soft and tender Peripheral 03/13/23 1300 [facility] Short Left Antecubital 18 Gauge (Active) Placement Date/Time: 03/13/23 1300 Line, Drain, Airway Placed by: [facility] Type of Peripheral Line: Short Location: Left Insertion Site: Antecubital Size: 18 Gauge Line Placed Under Ultrasound Guidance: Yes Peripheral 03/13/23 1300 [facility] Right Forearm 18 Gauge (Active) Placement Date/Time: 03/13/23 1300 Line, Drain, Airway Placed by: [facility] Location: Right Insertion Site: Forearm Size: 18 Gauge Line Placed Under Ultrasound Guidance: Yes [facility] Diagnostic Tests Reviewed: Most recent labs and imaging results. Primary Team Aware/Notified: Yes SIGNATURE: Jose De Jesus White APRN.CNP PATIENT NAME: Qian Clements DATE: March 15, 2023 TIME: 8:57 AM Normal [facility] Magnesium SerPl-mCncon 03-15 Magnesium [Mass/Vol] 2.1 mg/dL Normal 1.7-2.3 [facility] Comment on above: Order Comment: Speci men Type: BLOOD SPECIMENOrdering Facility: [facility] Address: [address] [place], [place] [address] Performed By: #### 1 988-5, 46196-6, 62621-9 ####[facility] LABCLIA [id number] [place] [address] [place] Renal function 2000 panelon 03-15-2023 Albumin [Mass/Vol] 3.7 g/dL Low 3.9-4.9 [facility] Comment on above: Order Comment: Speci men Type: BLOOD SPECIMENOrdering Facility: [facility] Address: [address] Performed By: #### 1 988-5, , ####[facility] LABCLIA [id number] [place] [address] [place] Anion gap [Moles/Vol] 12 mmol/L Normal 9-18 [facility] Comment on above: Order Comment: Speci men Type: BLOOD SPECIMENOrdering Facility: [facility] Address: [address] Performed By: #### 1 988-5, , ####[facility] LABCLIA [id number] [place] [address] [place] Calcium [Mass/Vol] 9.5 mg/dL Normal 8.5-10.2 [facility] Comment on above: Order Comment: Speci men Type: BLOOD SPECIMENOrdering Facility: [facility] Address: [address] Performed By: #### 1 988-5, , ####[facility] LABCLIA [id number] [place] [address] [place] Chloride [Moles/Vol] 103 mmol/L Normal 97-105 [facility] Comment on above: Order Comment: Speci men Type: BLOOD SPECIMENOrdering Facility: [facility] Address: [address] [place] [id number] Performed By: #### 1 988-5, , ####[facility] LABCLIA [id number] [address] [address] [place] CO2 [Moles/Vol] 21 mmol/L Low 22-30 [facility] Comment on above: Order Comment: Speci men Type: BLOOD SPECIMENOrdering Facility: [facility] Address: [address] [place] [id number] Performed By: #### 1 988-5, , ####[facility] [id number] [place] [address] [place] Creatinine [Mass/Vol] 0.77 mg/dL Normal 0.58-0.96 [facility] Comment on above: Order Comment: Speci men Type: BLOOD SPECIMENOrdering Facility: [facility] Address: [address] [place] [address] Performed By: #### 1 988-5, , ####[facility] [id number] [address] [place] ESTIMATED GLOMERULAR FILTRATION RATE 107 mL/min/1.73m??? Normal >=60 [facility] Comment on above: Order Comment: Speci men Type: BLOOD SPECIMENOrdering Facility: [facility] Address: [address] [place] [address] Result Comment: Marisa mated Glomerular Filtration Rate [...] GFR. Performed By: #### 1 988-5, , ####[facility] [id number] [place] [address] [place] Glucose [Mass/Vol] 102 mg/dL High 74-99 [facility] Comment on above: Order Comment: Speci men Type: BLOOD SPECIMENOrdering Facility: [facility] Address: [address] [place] [address] Result Comment: The [place] Diabetes Association (ADA) provides guidance for cutoff [...] Standards of Medical Care in Diabetes 2016, [place] [employer]. Diabetes Care. 2016.39(Suppl 1). Performed By: #### 1 988-5, 75112-8, 46395-9 ####[facility] [id number] [place] [address] [place] Phosphate [Mass/Vol] 3.5 mg/dL Normal 2.7-4.8 [facility] Comment on above: Order Comment: Speci men Type: BLOOD SPECIMENOrdering Facility: [facility] Address: [address] [place] [address] Performed By: #### 1 988-5, , 08444-2 ####[facility] [id number] [place] [address] [place] Potassium [Moles/Vol] 4.3 mmol/L Normal 3.7-5.1 [facility] Comment on above: Order Comment: Speci men Type: BLOOD SPECIMENOrdering Facility: [facility] Address: [address] [place] [address] Performed By: #### 1 988-5, , 07008-8 ####[facility] [id number] [place] [address] [place] Sodium [Moles/Vol] 136 mmol/L Normal 136-144 [facility] Comment on above: Order Comment: Speci men Type: BLOOD SPECIMENOrdering Facility: [facility] Address: [address] [place] [address] Performed By: #### 1 988-5, 40924-7, 95985-1 ####[facility] LABCL[facility] [id number] [place] [address] [place] Urea nitrogen [Mass/Vol] 11 mg/dL Normal 7-21 [facility] Comment on above: Order Comment: Speci men Type: BLOOD SPECIMENOrdering Facility: [facility] Address: [address] [place] [address] Performed By: #### 1 988-5, 52808-8, 59444-8 ####[facility] LABCL[facility] [id number] [place] [address] [place] TYPE + SCREEN PRENATALon ABO O Normal [facility] Comment on above: Order Comment: Speci men Type: BLOOD SPECIMENOrdering Facility: [facility] Address: [address] [place] [address] Performed By: #### T SPN ####[facility] BLOOD BANKCLIA [id number] [address] [place] HISTORICAL AB SCR STATUS Negative Normal [facility] Comment on above: Order Comment: Speci men Type: BLOOD SPECIMENOrdering Facility: [facility] Address: [address] [place] [address] Performed By: #### T SPN ####[facility] BLOOD BANKCLIA [id number] [place] [address] [place] Rh Nom (Bld) Positive Normal [facility] Comment on above: Order Comment: Speci men Type: BLOOD SPECIMENOrdering Facility: [facility] Address: [address] [place] [address] Performed By: #### T SPN ####[facility] BLOOD BANKCLIA [id number] [place] [address] [place] TYPE AND SCREEN EXPIRATION 03/18/2023 23:59 Normal [facility] Comment on above: Order Comment: Speci men Type: BLOOD SPECIMENOrdering Facility: [facility] Address: [address] [place] [id number] Performed By: #### T SPN ####[facility] BLOOD BANKCLIA [id number] [id number] [address] [place] US PREG TRANSABD <14 WKS LTD on 03-15-2023 US PREG TRANSABD <14 WKS LTD * * *Final Report* * * DATE OF EXAM: Mar 15 2023 2:48PM [facility] 1035 - US PREG TRANSABD <14 WKS [...] sac: Present - Embryo: Single present - Stilwell rump length: 1.83 cm, corresponding gestational age 8 weeks, 2 days -Gestational heart rate: present 161-166 bpm -Subgestational hematoma: Absent Right ovary: Not seen. Left ovary: - Size: 2.4 x 1.3 x 2.7 cm - Normal sonographic appearance with physiologic follicles. Pelvis free fluid: None. IMPRESSION: Single, live intrauterine gestation. Estimated Gestational Age: 8 weeks, 2 days by crown rump length. Resident Surgeon: PSCB Transcribe Date/Time: Mar 15 2023 3:17P Dictated by : MARY ANN ESQUIVEL MD This examination was interpreted and the report reviewed and electronically signed by: MARY ANN ESQUIVEL MD on Mar 15 2023 3:24PM EST [id number] Normal [facility] US PREG TRANSVAG <14 WEEKSon 03-15-2023 US PREG TRANSVAG <14 WEEKS * * *Final Report* * * DATE OF EXAM: Mar 15 2023 2:48PM U 1034 - US PREG TRANSVAG <14 WEEKS / PROCEDURE REASON: Pelvic pain, positive beta-HCG, disability coordinator etiology suspected * * * * Physician [...] sac: Present - Embryo: Single present - Stilwell rump length: 1.83 cm, corresponding gestational age 8 weeks, 2 days -Gestational heart rate: present 161-166 bpm -Subgestational hematoma: Absent Right ovary: Not seen. Left ovary: - Size: 2.4 x 1.3 x 2.7 cm - Normal sonographic appearance with physiologic follicles. Pelvis free fluid: None. IMPRESSION: Single, live intrauterine gestation. Estimated Gestational Age: 8 weeks, 2 days by crown rump length. Resident Surgeon: JAYMIE Transcribe Date/Time: Mar 15 2023 3:17P Dictated by : MARY ANN ESQUIVEL MD This examination was interpreted and the report reviewed and electronically signed by: MARY ANN ESQUIVEL MD on Mar 15 2023 3:24PM EST [id number] Normal [facility] CASE MGT INIT Mitch 2022 CASE MGT INIT MERLENE HNO ID: [id number] Author: Adwoa Hodge RN Service: ? Author [...] Discharge: To Be Determined PCP: Racquel Simpson [phone] f. [phone] Post-Acute Discharge Plan: CM met with pt [...] does not use drugs. Primary care paged SUPERVISOR INSPECTING regarding recommended imaging for nephrolithiasis in the setting of 1st trimester of . This patient has been screened for Care Management Transitional Planning Services. At this time, it does not appear this patient will require transition planning services. Should this change, and the patient require transition planning services during this admission, please call [phone]. NO SKILLED NEEDS SIGNATURE: Adwoa Hodge RN PATIENT NAME: Qian Clements DATE: March 14, 2023 TIME: 12:53 PM CONTACT #: [phone] Normal [facility] CBC panel Auto (Bld)on 03-14 Erythrocyte distribution width (RBC) [Ratio] 13.6 % Normal 11.5-15.0 [facility] Comment on above: Order Comment: Tee francisco Type: BLOOD SPECIMENOrdering Facility: [facility] Address: [address] [place], [place] [address] Performed By: #### 5 8410-2 ####[facility] LABCLIA [id number] [place] [address] [place] Hematocrit (Bld) [Volume fraction] 31.0 % Low 36.0-46.0 [facility] Comment on above: Order Comment: Tee francisco Type: BLOOD SPECIMENOrdering Facility: [facility] Address: [address] [place] [address] Performed By: #### 5 8410-2 ####[facility] [id number] [place] [address] [place] Hemoglobin (Bld) [Mass/Vol] 10.4 g/dL Low 11.5-15.5 [facility] Comment on above: Order Comment: Speci men Type: BLOOD SPECIMENOrdering Facility: [facility] Address: [address] [place] [address] Performed By: #### 5 8410-2 ####[facility] [id number] [place] [address] [place] MCH (RBC) [Entitic mass] 26.5 pg Normal 26.0-34.0 [facility] Comment on above: Order Comment: Speci men Type: BLOOD SPECIMENOrdering Facility: [facility] Address: [address] [place] [address] Performed By: #### 5 8410-2 ####[facility] [id number] [place] [address] [place] MCHC (RBC) [Mass/Vol] 33.5 g/dL Normal 30.5-36.0 [facility] Comment on above: Order Comment: Speci men Type: BLOOD SPECIMENOrdering Facility: [facility] Address: [address] [place], [place] [address] Performed By: #### 5 8410-2 ####[facility] [id number] [place] [address] [place] MCV (RBC) [Entitic vol] 78.9 fL Low 80.0-100.0 [facility] Comment on above: Order Comment: Speci men Type: BLOOD SPECIMENOrdering Facility: [facility] Address: [address] [place] [address] Performed By: #### 5 8410-2 ####[facility] [id number] [place] [address] [place] Nucleated RBC (Bld) [#/Vol] 10*3/uL Normal <0.01 [facility] Comment on above: Order Comment: Speci men Type: BLOOD SPECIMENOrdering Facility: [facility] Address: [address] [place] [address] Performed By: #### 5 8410-2 ####[facility] [id number] [place] [address] [place] Platelet mean volume (Bld) [Entitic vol] 9.0 fL Normal 9.0-12.7 [facility] Comment on above: Order Comment: Speci men Type: BLOOD SPECIMENOrdering Facility: [facility] Address: [address] [place] [address] Performed By: #### 5 8410-2 ####[facility] [id number] [place] [address] [place] Platelets (Bld) [#/Vol] 415 10*3/uL High 150-400 [facility] Comment on above: Order Comment: Speci men Type: BLOOD SPECIMENOrdering Facility: [facility] Address: [address] [place], [place] [address] Performed By: #### 5 8410-2 ####[facility] [id number] [place] [address] [place] RBC (Bld) [#/Vol] 3.93 10*6/uL Normal 3.90-5.20 [facility] Comment on above: Order Comment: Speci men Type: BLOOD SPECIMENOrdering Facility: [facility] Address: [address] [place], [place] [address] Performed By: #### 5 8410-2 ####[facility] [id number] [place] [address] [place] WBC (Bld) [#/Vol] 11.23 10*3/uL High 3.70-11.00 [facility] Comment on above: Order Comment: Speci men Type: BLOOD SPECIMENOrdering Facility: [facility] Address: [address] [place] [address] Performed By: #### 5 8410-2 ####[facility] LABCLIA [id number] [place] [address] [place] Magnesium SerPl-ncon 03-14 Magnesium [Mass/Vol] 1.9 mg/dL Normal 1.7-2.3 [facility] Comment on above: Order Comment: Speci men Type: BLOOD SPECIMENOrdering Facility: [facility] Address: [address] [place] [address] Performed By: #### 1 9123-9, 82915-3 ####[facility] LABCLIA [id number] [place] [address] [place] Renal function 2000 panelon 03-14-2023 Albumin [Mass/Vol] 3.6 g/dL Low 3.9-4.9 [facility] Comment on above: Order Comment: Speci men Type: BLOOD SPECIMENOrdering Facility: [facility] Address: [address] [place] [address] Performed By: #### 1 9123-9, 24272-3 ####[facility] LABCLIA [id number] [place] [address] [place] Anion gap [Moles/Vol] 13 mmol/L Normal 9-18 [facility] Comment on above: Order Comment: Speci men Type: BLOOD SPECIMENOrdering Facility: [facility] Address: [address] [place], [place] [address] Performed By: #### 1 9123-9, 58017-0 ####[facility] LABCLIA [id number] [place] [address] [place] Calcium [Mass/Vol] 9.2 mg/dL Normal 8.5-10.2 [facility] Comment on above: Order Comment: Speci men Type: BLOOD SPECIMENOrdering Facility: [facility] Address: [address] [place], [place] [address] Performed By: #### 1 9123-9, 62811-4 ####[facility] LABCLIA [id number] [place] [address] [place] Chloride [Moles/Vol] 102 mmol/L Normal 97-105 [facility] Comment on above: Order Comment: Speci men Type: BLOOD SPECIMENOrdering Facility: [facility] Address: [address] [place] [address] Performed By: #### 1 9123-9, ####[facility] LABCL[facility] [id number] [place] [address] [place] CO2 [Moles/Vol] 19 mmol/L Low 22-30 [facility] Comment on above: Order Comment: Speci men Type: BLOOD SPECIMENOrdering Facility: [facility] Address: [address] [place] [address] Performed By: #### 1 9123-9, ####[facility] LABCLIA [id number] [address] [place] Creatinine [Mass/Vol] 0.75 mg/dL Normal 0.58-0.96 [facility] Comment on above: Order Comment: Speci men Type: BLOOD SPECIMENOrdering Facility: [facility] Address: [address] [place], [place] [address] Performed By: #### 1 9123-9, 54841-7 ####[facility] LABCLIA [id number] [address] [place] ESTIMATED GLOMERULAR FILTRATION RATE 110 mL/min/1.73m??? Normal >=60 [facility] Comment on above: Order Comment: Speci men Type: BLOOD SPECIMENOrdering Facility: [facility] Address: [address] [place] [place] [id number] Result Comment: Marisa mated Glomerular Filtration Rate [...] actual GFR. Performed By: #### 1 9123-9, 81203-4 ####[facility] [id number] [place] [address] [place] Glucose [Mass/Vol] 131 mg/dL High 74-99 [facility] Comment on above: Order Comment: Tee francisco Type: BLOOD SPECIMENOrdering Facility: [facility] Address: [address] [place] [address] Result Comment: The [place] Diabetes Association (ADA) provides guidance for cutoff [...] Standards of Medical Care in Diabetes 2016, [place] [employer]. Diabetes Care. 2016.39(Suppl 1). Performed By: #### 1 9123-9, 50487-8 ####[facility] LABIA [id number] [place] [address] [place] Phosphate [Mass/Vol] 2.6 mg/dL Low 2.7-4.8 [facility] Comment on above: Order Comment: Specantonina men Type: BLOOD SPECIMENOrdering Facility: [facility] Address: [address] [place] [phone] Performed By: #### 1 9123-9, 06387-5 ####[facility] LABCL[facility] [id number] [place] [address] [place] Potassium [Moles/Vol] 3.7 mmol/L Normal 3.7-5.1 [facility] Comment on above: Order Comment: Speci men Type: BLOOD SPECIMENOrdering Facility: [facility] Address: [address] [place] [address] Performed By: #### 1 9123-9, 14469-4 ####[facility] LABIA [id number] [place] [address] [place] Sodium [Moles/Vol] 134 mmol/L Low 136-144 [facility] Comment on above: Order Comment: Speci men Type: BLOOD SPECIMENOrdering Facility: [facility] Address: [address] [place] [address] Performed By: #### 1 9123-9, 97354-0 ####[facility] [id number] [place] [address] [place] Urea nitrogen [Mass/Vol] 7 mg/dL Normal 7-21 [facility] Comment on above: Order Comment: Speci men Type: BLOOD SPECIMENOrdering Facility: [facility] Address: [address] [place] [address] Performed By: #### 1 9123-9, 86195-3 ####[facility] LABIA [id number] [place] [address] [place] US KIDNEY/BLADDERon 03-14-20 23 US KIDNEY/BLADDER * * *Final Report* * * DATE OF EXAM: Mar 14 2023 10:55AM [facility] 1055 - KIDNEY/BLADDER / PROCEDURE REASON: Pyelonephritis, [...] IMPRESSION: NO HYDRONEPHROSIS OR SHADOWING RENAL CALCULUS. Resident Surgeon: PSCB Transcribe Date/Time: Mar 14 2023 12:32P Dictated by : ARTURO ALVARADO DO This examination was interpreted and the report reviewed and electronically signed by: ARTURO ALVARADO DO on Mar 14 2023 12:34PM EST [id number] Normal [facility] BETA HCG, QUANTITATIVE FOR E Don 03-13-2023 HCG.beta subunit Qn m[IU]/mL High <5.0 [facility] Comment on above: Order Comment: Speci men Type: BLOOD SPECIMENOrdering Facility: [facility] Address: [address] [place] [id number] Result Comment: SO TITATIVE HCG NORMAL RANGES Weeks of Gestation (Weeks Since LMP) 3 Weeks (5.8-71.2 mIU/mL) 4 Weeks (9.5-750 mIU/mL) 5 Weeks (217-7138 mIU/mL) 6 Weeks (158-40091 mIU/mL) 7 Weeks (3697-001417 mIU/mL) 8 Weeks (59021-159191 mIU/mL) 9 Weeks (10828-070735 mIU/mL) 10 Weeks (14256-859451 mIU/mL) 12 Weeks (73897-102091 mIU/mL) Referenced to 4th IS of [facility] Performed By: #### 2 4323-8, 3040-3, 2276-4, 1988-5, HCGED ####[facility] [id number] [place] [address] [place] C-Reactive Proteinon 023 CRP [Mass/Vol] 94.7 mg/L High 0.0-5.0 [facility] Comment on above: Performed By: #### L IP, SED, CP, CRP, CDP #### [facility] [address] [place] [address] Hand Sprayer: Aaron Arteaga MD #### [place] #### [facility] [address] [place], [place] [id number] Hand Sprayer: Gino Wing MD CBC W Auto Differential pane l (Bld)on 03-13-2023 Basophils (Bld) [#/Vol] 0.03 10*3/uL Normal <0.11 [facility] Comment on above: Order Comment: Speci men Type: BLOOD SPECIMENOrdering Facility: [facility] Address: [address] [address] Performed By: #### 4 537-7, 51671-3 ####[facility] [id number] [place] [address] [place] Basophils/100 WBC (Bld) 0.2 % Normal [facility] Comment on above: Order Comment: Speci men Type: BLOOD SPECIMENOrdering Facility: [facility] Address: [address] [address] Performed By: #### 4 537-7, 81373-4 ####[facility] [id number] [place] [address] [place] Differential cell count method Nom (Bld) Auto Normal [facility] Comment on above: Order Comment: Speci men Type: BLOOD SPECIMENOrdering Facility: [facility] Address: [address] [address] Performed By: #### 4 537-7, 22197-9 ####[facility] LABCLIA [id number] [place] [address] [place] Eosinophils (Bld) [#/Vol] 10*3/uL Normal <0.46 [facility] Comment on above: Order Comment: Speci men Type: BLOOD SPECIMENOrdering Facility: [facility] Address: [address] [place] [address] Performed By: #### 4 537-7, 41968-6 ####[facility] [id number] [place] [address] [place] Eosinophils/100 WBC (Bld) 0.1 % Normal [facility] Comment on above: Order Comment: Speci men Type: BLOOD SPECIMENOrdering Facility: [facility] Address: [address] [place] [address] Performed By: #### 4 537-7, 44831-0 ####[facility] [id number] [place] [address] [place] Erythrocyte distribution width (RBC) [Ratio] 13.5 % Normal 11.5-15.0 [facility] Comment on above: Order Comment: Speci men Type: BLOOD SPECIMENOrdering Facility: [facility] Address: [address] [place], [place] [phone] Performed By: #### 4 537-7, 76217-2 ####[facility] [id number] [place] [address] [place] Hematocrit (Bld) [Volume fraction] 32.4 % Low 36.0-46.0 [facility] Comment on above: Order Comment: Speci men Type: BLOOD SPECIMENOrdering Facility: [facility] Address: [address] [place], [place] [phone] Performed By: #### 4 537-7, 88572-2 ####[facility] [id number] [place] [address] [place] Hemoglobin (Bld) [Mass/Vol] 10.5 g/dL Low 11.5-15.5 [facility] Comment on above: Order Comment: Speci men Type: BLOOD SPECIMENOrdering Facility: [facility] Address: [address] [place] [address] Performed By: #### 4 537-7, 49226-9 ####[facility] [id number] [place] [address] [place] Immature granulocytes (Bld) [#/Vol] 0.11 10*3/uL High <0.10 [facility] Comment on above: Order Comment: Speci men Type: BLOOD SPECIMENOrdering Facility: [facility] Address: [address] [place] [address] Performed By: #### 4 537-7, 99106-6 ####[facility] [id number] [place] [address] [place] Immature granulocytes/100 WBC (Bld) 0.8 % Normal [facility] Comment on above: Order Comment: Speci men Type: BLOOD SPECIMENOrdering Facility: [facility] Address: [address] [place] [address] Performed By: #### 4 537-7, 22522-1 ####[facility] [id number] [place] [address] [place] Lymphocytes (Bld) [#/Vol] 1.86 10*3/uL Normal 1.00-4.00 [facility] Comment on above: Order Comment: Speci men Type: BLOOD SPECIMENOrdering Facility: [facility] Address: [address] [place], [place] [address] Performed By: #### 4 537-7, 85975-8 ####[facility] [id number] [place] [address] [place] Lymphocytes/100 WBC (Bld) 13.0 % Normal [facility] Comment on above: Order Comment: Speci men Type: BLOOD SPECIMENOrdering Facility: [facility] Address: [address] Performed By: #### 4 537-7, 91296-8 ####[facility] [id number] [address] [place] [facility] MCH (RBC) [Entitic mass] 26.6 pg Normal 26.0-34.0 [facility] Comment on above: Order Comment: Speci men Type: BLOOD SPECIMENOrdering Facility: [facility] Address: [address] [place], [place] [address] Performed By: #### 4 537-7, 89554-1 ####[facility] [id number] [address] [facility] MCHC (RBC) [Mass/Vol] 32.4 g/dL Normal 30.5-36.0 [facility] Comment on above: Order Comment: Speci men Type: BLOOD SPECIMENOrdering Facility: [facility] Address: [address] [place], [place] [address] Performed By: #### 4 537-7, 37298-3 ####[facility] [id number] [place] [address] [place] MCV (RBC) [Entitic vol] 82.0 fL Normal 80.0-100.0 [facility] Comment on above: Order Comment: Speci men Type: BLOOD SPECIMENOrdering Facility: [facility] Address: [address] [place], [place] [phone] Performed By: #### 4 537-7, 34068-4 ####[facility] [id number] [place] [address] [place] Monocytes (Bld) [#/Vol] 1.09 10*3/uL High <0.87 [facility] Comment on above: Order Comment: Speci men Type: BLOOD SPECIMENOrdering Facility: [facility] Address: [address] [place], [place] [address] Performed By: #### 4 537-7, 39895-5 ####[facility] [id number] [place] [address] [place] Monocytes/100 WBC (Bld) 7.6 % Normal [facility] Comment on above: Order Comment: Speci men Type: BLOOD SPECIMENOrdering Facility: [facility] Address: [address] [place], [place] [address] Performed By: #### 4 537-7, 39882-5 ####[facility] [id number] [place] [address] [place] Neutrophils (Bld) [#/Vol] 11.15 10*3/uL High 1.45-7.50 [facility] Comment on above: Order Comment: Speci men Type: BLOOD SPECIMENOrdering Facility: [facility] Address: [address] Performed By: #### 4 537-7, 20012-2 ####[facility] [id number] [place] [address] [place] Neutrophils/100 WBC (Bld) 78.3 % Normal [facility] Comment on above: Order Comment: Speci men Type: BLOOD SPECIMENOrdering Facility: [facility] Address: [address] [place] [address] Performed By: #### 4 537-7, 05657-2 ####[facility] [id number] [place] [address] [place] Nucleated RBC (Bld) [#/Vol] 10*3/uL Normal <0.01 [facility] Comment on above: Order Comment: Speci men Type: BLOOD SPECIMENOrdering Facility: [facility] Address: [address] [place] [address] Performed By: #### 4 537-7, 79866-4 ####[facility] [id number] [place] [address] [place] Nucleated RBC/100 WBC (Bld) [Ratio] 0.0 /100 WBC Normal [facility] Comment on above: Order Comment: Speci men Type: BLOOD SPECIMENOrdering Facility: [facility] Address: [address] [place] [address] Performed By: #### 4 537-7, 04726-8 ####[facility] [id number] [place] [address] [place] Platelet mean volume (Bld) [Entitic vol] 8.9 fL Low 9.0-12.7 [facility] Comment on above: Order Comment: Speci men Type: BLOOD SPECIMENOrdering Facility: [facility] Address: [address] [place] [address] Performed By: #### 4 537-7, 71794-0 ####[facility] [id number] [place] [address] [place] Platelets (Bld) [#/Vol] 378 10*3/uL Normal 150-400 [facility] Comment on above: Order Comment: Speci men Type: BLOOD SPECIMENOrdering Facility: [facility] Address: [address] [place], [place] [phone] Performed By: #### 4 537-7, 93407-6 ####[facility] [id number] [place] [address] [place] RBC (Bld) [#/Vol] 3.95 10*6/uL Normal 3.90-5.20 [facility] Comment on above: Order Comment: Speci men Type: BLOOD SPECIMENOrdering Facility: [facility] Address: [address] [place], [place] [phone] Performed By: #### 4 537-7, 25151-0 ####[facility] [id number] [place] [address] [place] WBC (Bld) [#/Vol] 14.26 10*3/uL High 3.70-11.00 [facility] Comment on above: Order Comment: Speci men Type: BLOOD SPECIMENOrdering Facility: [facility] Address: [address] [place] [address] Performed By: #### 4 537-7, 78873-0 ####[facility]CLIA [id number] [facility] H[facility]PITALDESK [id number] [place], [place] [id number] [facility] CONSULT PROGon 03-13-2023 CONSULT PROG HNO ID: [id number] Author: Robyn Bolton RPh Service: Pharmacy Author [...] there are questions. Robyn Bolton RPh Normal [facility] CONSULT PROG HNO ID: [id number] Author: Ev Pryor RPh Service: Pharmacy Author [...] questions, please contact Ev Pryor RPh at [phone]. Age: [age] year old Allergies: ALLERGIES Allergen [...] found for: PINGROSELINE Ev Pryor kelsie Normal [facility] CRP SerPl-mCncon 03-13-2023 CRP [Mass/Vol] 20.0 mg/dL High <0.9 [facility] Comment on above: Order Comment: Speci men Type: BLOOD SPECIMENOrdering Facility: [facility] Address: [address] [place] [address] [place] [address] Performed By: #### 2 4323-8, 3039-3, 2275-11, 1987-12, HCGED ####[facility] [id number] [place] [address] [place] Comprehensive metabolic 2000 panelon 03-13-2023 Albumin [Mass/Vol] 3.6 g/dL Low 3.9-4.9 [facility] Comment on above: Order Comment: Speci men Type: BLOOD SPECIMENOrdering Facility: [facility] Address: [address] [place], [place] [address] Performed By: #### 2 4323-8, 3039-3, 2275-11, 1987-12, HCGED ####[facility] [id number] [place] [address] [place] ALP [Catalytic activity/Vol] 101 U/L Normal 34-123 [facility] Comment on above: Order Comment: Speci men Type: BLOOD SPECIMENOrdering Facility: [facility] Address: [address] [place] [address] Performed By: #### 2 4323-8, 3039-3, 2275-11, 1987-12, HCGED ####[facility] [id number] [place] [address] [place] ALT [Catalytic activity/Vol] 22 U/L Normal 7-38 [facility] Comment on above: Order Comment: Speci men Type: BLOOD SPECIMENOrdering Facility: [facility] Address: [address] [place], [place] [address] Performed By: #### 2 4323-8, 3039-3, 2275-11, 1987-12, HCGED ####[facility] [id number] [place] [address] [place] Anion gap [Moles/Vol] 14 mmol/L Normal 9-18 [facility] Comment on above: Order Comment: Speci men Type: BLOOD SPECIMENOrdering Facility: [facility] Address: [address] [place], [place] [address] Performed By: #### 2 4323-8, 3040-3, 4, 1987-12, HCGED ####[facility] [id number] [place] [address] [place] AST [Catalytic activity/Vol] 16 U/L Normal 13-35 [facility] Comment on above: Order Comment: Speci men Type: BLOOD SPECIMENOrdering Facility: [facility] Address: [address] [place] [address] Performed By: #### 2 4323-8, 3040-3, 2275-11, 1987-12, HCGED ####[facility] [id number] [place] [address] [place] Bilirubin [Mass/Vol] 0.2 mg/dL Normal 0.2-1.3 [facility] Comment on above: Order Comment: Speci men Type: BLOOD SPECIMENOrdering Facility: [facility] Address: [address] [place] [address] Performed By: #### 2 4323-8, 3040-3, 2275-11, 1987-12, HCGED ####[facility] [id number] [place] [address] [place] Calcium [Mass/Vol] 8.8 mg/dL Normal 8.5-10.2 [facility] Comment on above: Order Comment: Speci men Type: BLOOD SPECIMENOrdering Facility: [facility] Address: [address] [place] [address] Performed By: #### 2 4323-8, 3040-3, 2275-11, 1987-12, HCGED ####[facility] [id number] [place] [address] [place] Chloride [Moles/Vol] 103 mmol/L Normal 97-105 [facility] Comment on above: Order Comment: Speci men Type: BLOOD SPECIMENOrdering Facility: [facility] Address: [address] [place], [place] [address] Performed By: #### 2 4323-8, 0-3, 2275-11, 1987-12, HCGED ####[facility] [id number] [place] [address] [place] CO2 [Moles/Vol] 19 mmol/L Low 22-30 [facility] Comment on above: Order Comment: Speci men Type: BLOOD SPECIMENOrdering Facility: [facility] Address: [address] [place] [address] Performed By: #### 2 4323-8, 3039-3, 2275-11, 1987-12, HCGED ####[facility] [id number] [place] [address] [place] Creatinine [Mass/Vol] 0.77 mg/dL Normal 0.58-0.96 [facility] Comment on above: Order Comment: Speci men Type: BLOOD SPECIMENOrdering Facility: [facility] Address: [address] [place] [address] Performed By: #### 2 4323-8, 3, 2275-11, 1987-12, HCGED ####[facility] [id number] [place] [address] [place] ESTIMATED GLOMERULAR FILTRATION RATE 107 mL/min/1.73m??? Normal >=60 [facility] Comment on above: Order Comment: Speci men Type: BLOOD SPECIMENOrdering Facility: [facility] Address: [address] [place] [address] Result Comment: Marisa mated Glomerular Filtration Rate [...] #### 2 4323-8, 3, 2275-11, 1987-12, HCGED ####[facility] [id number] [place] [address] [place] Glucose [Mass/Vol] 126 mg/dL High 74-99 [facility] Comment on above: Order Comment: Speci men Type: BLOOD SPECIMENOrdering Facility: [facility] Address: [address] [place], [place] [address] Result Comment: The [place] [employer] Association (ADA) provides guidance for cutoff [...] Standards of Medical Care in Diabetes 2016, [place] [employer]. Diabetes Care. 2016.39(Suppl 1). Performed By: #### 2 4323-8, 3039-10, 2275-11, 1987-12, HCGED ####[facility] [id number] [place] [address] [place] Potassium [Moles/Vol] 3.3 mmol/L Low 3.7-5.1 [facility] Comment on above: Order Comment: Speci men Type: BLOOD SPECIMENOrdering Facility: [facility] Address: [address] [place] [address] Performed By: #### 2 4323-8, 3, 2275-11, 1987-12, HCGED ####[facility] [id number] [address] [address] [place] Protein [Mass/Vol] 6.5 g/dL Normal 6.3-8.0 [facility] Comment on above: Order Comment: Speci men Type: BLOOD SPECIMENOrdering Facility: [facility] Address: [address] [place] [address] Performed By: #### 2 4323-8, 3039-3, 2275-11, 1987-12, HCGED ####[facility] [id number] [address] [address] [place] Sodium [Moles/Vol] 136 mmol/L Normal 136-144 [facility] Comment on above: Order Comment: Speci men Type: BLOOD SPECIMENOrdering Facility: [facility] Address: [place] [address] Performed By: #### 2 4323-8, 3039-3, 2275-11, 1987-12, HCGED ####[facility] [id number] [place] [address] [place] Urea nitrogen [Mass/Vol] 8 mg/dL Normal 7-21 [facility] Comment on above: Order Comment: Speci men Type: BLOOD SPECIMENOrdering Facility: [facility] Address: [address] [place] [address] Performed By: #### 2 4323-8, 3, 2275-11, 1987-12, HCGED ####[facility] [id number] [address] [address] [place] ED NOTEon 03-13-2023 ED NOTE HNO ID: [id number] Author: Kj Carter, CATHI Service: Emergency Medicine Author Type: Registered Nurse Type: ED Notes Filed: 03/13/2023 11:48 AM Note Text: Pt was to be a tranfers from outside hospital for admission, left AMA because felt that it was taking to long for transfer. Elevated WBC, back pain, nausea and vomiting, no diarrhea, no SOB 8 weeks . Normal [facility] ED PROV NOTEon 03-13-2023 ED PROV NOTE HNO ID: [id number] Author: Kelli Musa MD Service: Emergency Medicine [...] fevers, she opted to report to the [place] ED. While there, she was noted to [...] Abnormal; Notable for the following components: Specific [place], Ur 1.032 (*) 1.005 - 1.030 Protein, Urine 1+ (*) Trace, (more content not included)... Normal [facility] ESR Westergren method (Bld) [Velocity]on 03-13-2023 ESR (Bld) [Velocity] 65 mm/h High 0-20 [facility] Comment on above: Order Comment: Speci men Type: BLOOD SPECIMENOrdering Facility: [facility] Address: [address] [address] Performed By: #### 4 537-7, 30872-8 ####[facility] [id number] [address] Ferritinon 03-13-2023 Ferritin [Mass/Vol] 48 ng/mL Normal 13-[address] [facility] Comment on above: Performed By: #### L IP, SED, CP, CRP, CDP #### [facility] [address] [place] [address] Hand Sprayer: Aaron Arteaga MD #### FERI #### [facility] [address] [place] [address] Hand Sprayer: Gino Wing MD Ferritin SerPl-mCncon 2022 Ferritin [Mass/Vol] 149.0 ng/mL Normal 14.7-205.1 [facility] Comment on above: Order Comment: Speci men Type: BLOOD SPECIMENOrdering Facility: [facility] Address: [address] [address] Performed By: #### 2 4323-8, 3040-3, 2276-4, 1987-, HCGED ####[facility] [id number] [address] [place] HISTORY PHYSICALon HISTORY PHYSICAL HNO ID: [id number] Author: Manoj Ramos MD Service: General Internal Medicine Author Type: Physician Type: HANDP Filed: 03/13/2023 8:37 PM Note Text: HISTORY AND PHYSICAL GENERAL INTERNAL MEDICINE After 5 PM on weekdays and after 3 PM on weekends cristi oHdgson Team at [facility] [phone] Admit Date: 03/13/2023 SERVICE DATE: 03/13/2023 SERVICE [...] flank pain, and she was transferred to [facility] ED. After drawing blood and taking [...] without mu (more content not included)... Normal [facility] Lipase SerPl-cCncon 03-13-20 23 Lipase [Catalytic activity/Vol] 19 U/L Normal 16-61 [facility] Comment on above: Order Comment: Speci men Type: BLOOD SPECIMENOrdering Facility: [facility] Address: [address] [place] [address] Performed By: #### 2 4323-8, 3040-3, 6-4, 1987-12, HCGED ####[facility] [id number] [address] [facility] PROGon 03-13-2023 NURSING PROG HNO ID: [id number] Author: Mini Kaplan RN Service: ? Author Type: Registered Nurse Type: Nursing Progress Note Filed: 03/13/2023 5:11 PM Note Text: Transfer Note: PATIENT NAME: Qian Clements Patient Location: [place] [address] [address] Room: [place] [address] Patient transferred into room/unit [facility] in stable condition. Actions taken: Patient belongings with patient, bed low and locked, side rails up X2, and call light within reach. Normal [facility] Sedimentation Rateon 023 Sedimentation Rate 58 mm/Hr High 0-[address] [facility] Comment on above: Performed By: #### L IP, SED, CP, CRP, CDP #### [facility] [address] [place] [address] Hand Sprayer: Aaron Arteaga MD #### FERI #### [facility] [address] [place] [address] Hand Sprayer: Gino Wing MD Urinalysis complete pnl Uron [...] j carlos: ORGANISM ID: 1 Lactobacillus jensenii [place] count unreliable due to antimicrobial inhibition No further workup Normal [facility] Comment on above: Order Comment: Speci men Type: URINE SPECIMENOrdering Facility: [facility] Address: [address] [place] [address] Performed By: #### 2 4356-8 ####[facility] [id number] [place] [address] [place] XR CHEST 1V [...] Stable nonenlarged cardiomediastinal silhouette. IMPRESSION: See result. Resident Surgeon: JAYMIE Transcribe Date/Time: Mar 13 2023 1:50P Dictated by : YULY GAONA MD This examination was interpreted and the report reviewed and electronically signed by: YULY GAONA MD on Mar 13 2023 1:51PM EST [id number] Normal [facility] CBC with Diffon 03-12-2023 Abs. Basophil 0.00 k/uL Normal 0.0-0.2 [facility] Comment on above: Performed By: #### L IP, SED, CP, CRP, CDP #### [facility] [address] [place] [address] Hand Sprayer: Aaron Arteaga MD #### FERI #### [place] [address] [place], [place] [address] Hand Sprayer: Gino Wing MD Abs.Neutrophil (Seg) 18.36 k/uL High 2.5-7.0 [facility] Comment on above: Performed By: #### L IP, SED, CP, CRP, CDP #### [facility] [address] [place] [address] ( Hand Sprayer: Aaron Arteaga MD #### FERI #### [place] [address] [place], [place] [address] Hand Sprayer: Gino Wing MD Basophils/100 WBC (Bld) 0 % Normal 0-[address] [facility] Comment on above: Performed By: #### L IP, SED, CP, CRP, CDP #### [facility] [address] [place] [address] Hand Sprayer: Aaron Arteaga MD #### FERI #### [place] [id number] Hand Sprayer: Gino Wing MD Eosinophils (Bld) [#/Vol] 0.00 10*3/uL Normal 0.0-0.[address] [facility] Comment on above: Performed By: #### L IP, SED, CP, CRP, CDP #### [facility] [address] [place] [address] Hand Sprayer: Aaron Arteaga MD #### FERI #### [address] [id number] Hand Sprayer: Gino Wing MD Eosinophils/100 WBC (Bld) 0 % Normal 0-[address] [facility] Comment on above: Performed By: #### L IP, SED, CP, CRP, CDP #### [facility] [address] [place], [place] [address] Hand Sprayer: Aaron Arteaga MD #### FERI #### [address] [id number] Hand Sprayer: Gino Wing MD Lymphocytes (Bld) [#/Vol] 1.02 10*3/uL Normal 1.0-4.[address] [facility] Comment on above: Performed By: #### L IP, SED, CP, CRP, CDP #### [facility] [address] [place] [id number] ( Hand Sprayer: Aaron Arteaga MD #### FERI #### [address] [id number] Hand Sprayer: Gino Wing MD Lymphocytes/100 WBC (Bld) 5 % Low 15-[address] [facility] Comment on above: Performed By: #### L IP, SED, CP, CRP, CDP #### [facility] [address] [place], [place] [phone] Hand Sprayer: Aaron Arteaga MD #### FERI #### [address] [id number] Hand Sprayer: Gino Wing MD Monocytes (Bld) [#/Vol] 1.02 10*3/uL High 0.0-1.[address] [facility] Comment on above: Performed By: #### L IP, SED, CP, CRP, CDP #### [facility] [address] [place] [address] Hand Sprayer: Aaron Arteaga MD #### FERI #### [place] [address] [place], [place] [id number] Hand Sprayer: Gino Wing MD Monocytes/100 WBC (Bld) 5 % Normal 4-[address] [facility] Comment on above: Performed By: #### L IP, SED, CP, CRP, CDP #### [facility] [address] [place], [place] [id number] Hand Sprayer: Aaron Arteaga MD #### FERI #### [address] [phone] Hand Sprayer: Gino Wing MD Morphology Franco (Bld) [Interp] Scanned to verify automated differential. Normal [facility] Comment on above: Performed By: #### L IP, SED, CP, CRP, CDP #### [facility] [address] [place], [place] [id number] Hand Sprayer: Aaron Arteaga MD #### FERI #### [address] [phone] Hand Sprayer: Gino Wing MD Neutrophil (Seg) 90 % High 47-75 [facility] Comment on above: Performed By: #### L IP, SED, CP, CRP, CDP #### [facility] [address] [place], [place] [id number] Hand Sprayer: Aaron Arteaga MD #### FERI #### [address] [phone] Hand Sprayer: Gino Wing MD Erythrocyte distribution width (RBC) [Ratio] 13.8 % Normal 12.1-15.[address] [facility] Comment on above: Performed By: #### L IP, SED, CP, CRP, CDP #### [facility] [address] [place], [place] [id number] Hand Sprayer: Aaron Arteaga MD #### FERI #### [address] [phone] Hand Sprayer: Gino Wing MD Hematocrit (Bld) [Volume fraction] 33.8 % Low 36-[address] [facility] Comment on above: Performed By: #### L IP, SED, CP, CRP, CDP #### [facility] [address] [place] [address] Hand Sprayer: Aaron Arteaga MD #### FERI #### [address] [phone] Hand Sprayer: Gino Wing MD Hemoglobin (Bld) [Mass/Vol] 11.3 g/dL Low 12.0-16.[address] [facility] Comment on above: Performed By: #### L IP, SED, CP, CRP, CDP #### [facility] [address] [place] [address] Hand Sprayer: Aaron Arteaga MD #### FERI #### [address] [phone] Hand Sprayer: Gino Wing MD MCH (RBC) [Entitic mass] 27.0 pg Normal 26-[address] [facility] Comment on above: Performed By: #### L IP, SED, CP, CRP, CDP #### [facility] [address] [place] [address] Hand Sprayer: Aaron Arteaga MD #### FERI #### [address] [phone] Hand Sprayer: Gino Wing MD MCHC (RBC) [Mass/Vol] 33.3 g/dL Normal 31-[address] [facility] Comment on above: Performed By: #### L IP, SED, CP, CRP, CDP #### [facility] [address] [place] [address] Hand Sprayer: Aaron Arteaga MD #### FERI #### [address] [place] [address] Hand Sprayer: Gino Wing MD MCV (RBC) [Entitic vol] 81.2 fL Normal 80-[address] [facility] Comment on above: Performed By: #### L IP, SED, CP, CRP, CDP #### [facility] [address] [place], [place] [id number] Hand Sprayer: Aaron Arteaga MD #### FERI #### [address] [phone] Hand Sprayer: Gino Wing MD Platelets (Bld) [#/Vol] 453 10*3/uL High 140-[address] [facility] Comment on above: Performed By: #### L IP, SED, CP, CRP, CDP #### [facility] [address] [place] [phone] ( Hand Sprayer: Aaron Arteaga MD #### FERI #### [address] [address] Hand Sprayer: Gino Wing MD RBC (Bld) [#/Vol] 4.16 10*6/uL Normal 4.0-5.[address] [facility] Comment on above: Performed By: #### L IP, SED, CP, CRP, CDP #### [facility] [address] [place], [place] [id number] Hand Sprayer: Aaron Arteaga MD #### FERI #### [address] [address] Hand Sprayer: Gino Wing MD WBC (Bld) [#/Vol] 20.4 10*3/uL Critically high 3.5-11.[address] [facility] Comment on above: Performed By: #### L IP, SED, CP, CRP, CDP #### [facility] [address] [place], [place] [id number] Hand Sprayer: Aaron Arteaga MD #### FERI #### [address] [place], [place] [phone] Hand Sprayer: Gino Wing MD Comp Metabolic Profon 2022 Albumin [Mass/Vol] 3.9 g/dL Normal 3.5-5.[address] [facility] Comment on above: Performed By: #### L IP, SED, CP, CRP, CDP #### [facility] [address] [place], [place] [id number] Hand Sprayer: Aaron Arteaga MD #### FERI #### [address] [phone] Hand Sprayer: Gino Wing MD Alkaline Phos 100 U/L Normal 35-104 [facility] Comment on above: Performed By: #### L IP, SED, CP, CRP, CDP #### [facility] [address] [place] [address] ( Hand Sprayer: Aaron Arteaga MD #### FERI #### [address] [phone] Hand Sprayer: Gino Wing MD ALT [Catalytic activity/Vol] 24 U/L Normal 5-[address] [facility] Comment on above: Performed By: #### L IP, SED, CP, CRP, CDP #### [facility] [address] [place], [place] [id number] Hand Sprayer: Aaron Arteaga MD #### FERI #### [address] [phone] Hand Sprayer: Gino Wing MD Anion gap [Moles/Vol] 16 mmol/L Normal 9-[address] [facility] Comment on above: Performed By: #### L IP, SED, CP, CRP, CDP #### [facility] [address] [place] [address] Hand Sprayer: Aaron Arteaga MD #### FERI #### [address] [phone] Hand Sprayer: Gino Wing MD AST [Catalytic activity/Vol] 21 U/L Normal <[address] [facility] Comment on above: Performed By: #### L IP, SED, CP, CRP, CDP #### [facility] [address] [place], [place] [phone] Hand Sprayer: Aaron Arteaga MD #### FERI #### [address] [phone] Hand Sprayer: Gino Wing MD Bilirubin [Mass/Vol] 0.5 mg/dL Normal 0.3-1.2 [facility] Comment on above: Performed By: #### L IP, SED, CP, CRP, CDP #### [facility] [address] [place] [address] Hand Sprayer: Aaron Arteaga MD #### FERI #### [address] [phone] Hand Sprayer: Gino Wing MD BUN/CRE Ratio 10 Normal 9-20 [facility] Comment on above: Performed By: #### L IP, SED, CP, CRP, CDP #### [facility] [address] [place], [place] [id number] Hand Sprayer: Aaron Arteaga MD #### FERI #### [address] [phone] Hand Sprayer: Gino Wing MD Calcium [Mass/Vol] 9.1 mg/dL Normal 8.6-10.[address] [facility] Comment on above: Performed By: #### L IP, SED, CP, CRP, CDP #### [facility] [address] [place] [address] Hand Sprayer: Aaron Arteaga MD #### FERI #### [facility] [address] [place], [place] [phone] Hand Sprayer: Gino Wing MD Chloride [Moles/Vol] 96 mmol/L Low 98-107 [facility] Comment on above: Performed By: #### L IP, SED, CP, CRP, CDP #### [facility] [address] [place], [place] [phone] Hand Sprayer: Aaron Arteaga MD #### FERI #### [facility] [address] [place], [place] [phone] Hand Sprayer: Gino Wing MD CO2 [Moles/Vol] 19 mmol/L Low 20-31 [facility] Comment on above: Performed By: #### L IP, SED, CP, CRP, CDP #### [facility] [address] [place] [address] Hand Sprayer: Aaron Arteaga MD #### FERI #### [facility] [address] [place], [place] [phone] Hand Sprayer: Gino Wing MD Creatinine [Mass/Vol] 0.8 mg/dL Normal 0.5-0.[address] [facility] Comment on above: Performed By: #### L IP, SED, CP, CRP, CDP #### [facility] [address] [place] [address] Hand Sprayer: Aaron Arteaga MD #### FERI #### [facility] [address] [place] [address] [phone] Hand Sprayer: Gino Wing MD GFR/1.73 sq M.predicted among non-blacks MDRD (S/P/Bld) [Vol rate/Area] mL/min/{1.73_m2} Normal >[address] [facility] Comment on above: Result Comment: These [...] L IP, SED, CP, CRP, CDP #### [facility] [address] [place] [address] Hand Sprayer: Aaron Arteaga MD #### FERI #### [facility] [address] [place], [place] [phone] Hand Sprayer: Gino Wing MD Glucose [Mass/Vol] 154 mg/dL High 70-[address] [facility] Comment on above: Performed By: #### L IP, SED, CP, CRP, CDP #### [facility] [address] [place] [address] Hand Sprayer: Aaron Arteaga MD #### FERI #### [facility] [address] [place], [place] [phone] Hand Sprayer: Gino Wing MD Potassium [Moles/Vol] 3.8 mmol/L Normal 3.7-5.[address] [facility] Comment on above: Performed By: #### L IP, SED, CP, CRP, CDP #### [facility] [address] [place] [address] Hand Sprayer: Aaron Arteaga MD #### FERI #### [address] [place], [place] [phone] Hand Sprayer: Gino Wing MD Protein [Mass/Vol] 7.2 g/dL Normal 6.4-8.[address] [facility] Comment on above: Performed By: #### L IP, SED, CP, CRP, CDP #### [facility] [address] [place] [address] Hand Sprayer: Aaron Arteaga MD #### FERI #### [facility] [address] [place], [place] [phone] Hand Sprayer: Gino Wing MD Sodium [Moles/Vol] 131 mmol/L Low 135-[address] [facility] Comment on above: Performed By: #### L IP, SED, CP, CRP, CDP #### [facility] [address] [place], [place] [phone] Hand Sprayer: Aaron Arteaga MD #### FERI #### [address] [phone] Hand Sprayer: Gino Wing MD Urea nitrogen [Mass/Vol] 8 mg/dL Normal 6-[address] [facility] Comment on above: Performed By: #### L IP, SED, CP, CRP, CDP #### [facility] [address] [place], [place] [phone] Hand Sprayer: Aaron Arteaga MD #### FERI #### [address] [phone] Hand Sprayer: Gino Wing MD Lactic Acidon 03-12-2023 Lactate [Moles/Vol] 1.2 mmol/L Normal 0.5-2.[address] [facility] Comment on above: Performed By: #### L IP, SED, CP, CRP, CDP #### [facility] [address] [place], [place] [id number] Hand Sprayer: Aaron Arteaga MD #### FERI #### [address] [phone] Hand Sprayer: Gino Wing MD Lipaseon 03-12-2023 Lipase [Catalytic activity/Vol] 18 U/L Normal 13-[address] [facility] Comment on above: Performed By: #### L IP, SED, CP, CRP, CDP #### [facility] [address] [place] [address] Hand Sprayer: Aaron Arteaga MD #### FERI #### [facility] [address] [place] [address] Hand Sprayer: Gino Wing MD Urinalysis, Routineon 2022 Bilirubin, SemiQt,Ur Negative Normal NEG [facility] Comment on above: Performed By: #### L IP, SED, CP, CRP, CDP #### [facility] [address] [place] [address] Hand Sprayer: Aaron Arteaga MD #### FERI #### [address] [address] Hand Sprayer: Gino Wing MD Blood, Urine 1+ Abnormal NEG [facility] Comment on above: Performed By: #### L IP, SED, CP, CRP, CDP #### [facility] [address] [place] [address] Hand Sprayer: Aaron Arteaga MD #### FERI #### [address] [address] Hand Sprayer: Gino Wing MD Clarity (U) Clear Normal CLEAR [facility] Comment on above: Performed By: #### L IP, SED, CP, CRP, CDP #### [facility] [address] [place] [address] Hand Sprayer: Aaron Arteaga MD #### FERI #### [address] [address] Hand Sprayer: Gino Wing MD Color (U) Yellow Normal YEL [facility] Comment on above: Performed By: #### L IP, SED, CP, CRP, CDP #### [facility] [address] [place] [address] Hand Sprayer: Aaron Arteaga MD #### FERI #### [address] [address] Hand Sprayer: Gino Wing MD Comment Normal [facility] Comment on above: Performed By: #### L IP, SED, CP, CRP, CDP #### [facility] [address] [place] [address] Hand Sprayer: Aaron Arteaga MD #### FERI #### [address] [address] Hand Sprayer: Gino Wing MD Glucose Ql (U) Negative Normal NEG [facility] Comment on above: Performed By: #### L IP, SED, CP, CRP, CDP #### [facility] [address] [place], [place] 1044890 Hand Sprayer: Aaron Arteaga MD #### FERI #### [address] [address] Hand Sprayer: Gino Wing MD Ketones Ql (U) Negative Normal NEG [facility] Comment on above: Performed By: #### L IP, SED, CP, CRP, CDP #### [facility] [address] [place] [address] Hand Sprayer: Aaron Arteaga MD #### FERI #### [address] [address] Hand Sprayer: Gino Wing MD Leukocyte esterase Test strip Ql (U) Negative Normal NEG [facility] Comment on above: Performed By: #### L IP, SED, CP, CRP, CDP #### [facility] [address] [place] [address] Hand Sprayer: Aaron Arteaga MD #### FERI #### [address] [address] Hand Sprayer: Gino Wing MD Nitrite,Ur Negative Normal NEG [facility] Comment on above: Performed By: #### L IP, SED, CP, CRP, CDP #### [facility] [address] [place], [place] [phone] Hand Sprayer: Aaron Arteaga MD #### FERI #### [address] [phone] Hand Sprayer: Gino Wing MD PH,Ur 7.0 Normal 5.0-8.[address] [facility] Comment on above: Performed By: #### L IP, SED, CP, CRP, CDP #### [facility] [address] [place] [address] Hand Sprayer: Aaron Arteaga MD #### FERI #### [address] [phone] Hand Sprayer: Gino Wing MD Protein Ql (U) 1+ mg/dL Abnormal NEG [facility] Comment on above: Performed By: #### L IP, SED, CP, CRP, CDP #### [facility] [address] [place], [place] [id number] Hand Sprayer: Aaron Arteaga MD #### FERI #### [address] [phone] Hand Sprayer: Gino Wing MD Spec. [place],Ur 1.010 Normal 1.005-1.030 [facility] Comment on above: Performed By: #### L IP, SED, CP, CRP, CDP #### [facility] [address] [place], [place] 0153390 Hand Sprayer: Aaron Arteaga MD #### FERI #### [address] [phone] Hand Sprayer: Gino Wing MD Urobilinogen,Ur Normal Normal 0.0-1.0 [facility] Comment on above: Performed By: #### L IP, SED, CP, CRP, CDP #### [facility] [address] [place] [address] Hand Sprayer: Aaron Arteaga MD #### FERI #### [address] [phone] Hand Sprayer: Gino Wing MD Urinalysis,Microon 3 ----- Normal [facility] Comment on above: Performed By: #### L IP, SED, CP, CRP, CDP #### [facility] [address] [place] [address] Hand Sprayer: Aaron Arteaga MD #### FERI #### [address] [phone] Hand Sprayer: Gino Wing MD Epithelial cells LM Ql (Urine sed) 0 TO [address] [facility] Comment on above: Performed By: #### L IP, SED, CP, CRP, CDP #### [facility] [address] [place], [place] 9279490 Hand Sprayer: Aaron Arteaga MD #### FERI #### [address] [phone] Hand Sprayer: Gino Wing MD Urine RBC's 5 TO 10 Normal 0-[address] [facility] Comment on above: Performed By: #### L IP, SED, CP, CRP, CDP #### [facility] [address] [place], [place] [phone] Hand Sprayer: Aaron Arteaga MD #### FERI #### [address] [phone] Hand Sprayer: Gino Wing MD Urine WBC's 0 TO 2 Normal [address] [facility] Comment on above: Performed By: #### L IP, SED, CP, CRP, CDP #### [facility] [address] [place] [address] Hand Sprayer: Aaron Arteaga MD #### FERI #### [facility] [address] [place] [address] Hand Sprayer: Gino Wing MD CBC with Auto Differentialon 03-07-2023 Basophils (Bld) [#/Vol] 0.00 10*3/uL [facility] Basophils/100 WBC (Bld) 0 % 0 - 2 % [facility] Differential Type YES [facility] Eosinophils (Bld) [#/Vol] 0.00 10*3/uL [facility] Eosinophils/100 WBC (Bld) 0 % 0 - 5 % [facility] Erythrocyte distribution width (RBC) [Ratio] 13.8 % 12.1 - 15.2 % [facility] Hematocrit (Bld) [Volume fraction] 33.9 % Low 36 - 46 % [facility] Hemoglobin (Bld) [Mass/Vol] 11.3 g/dL Low 12.0 - 16.0 g/dL [facility] Interpretation and review of laboratory results Abnormal [facility] Lymphocytes/100 WBC (Bld) 14 % Low 15 - 40 % [facility] Lymphocytes/100 WBC (Bld) 1.30 % [facility] MCH (RBC) [Entitic mass] 27.2 pg 26 - 34 pg [facility] MCHC (RBC) [Mass/Vol] 33.4 g/dL 31 - 37 g/dL [facility] MCV (RBC) [Entitic vol] 81.4 fL 80 - 100 fL [facility] Monocytes/100 WBC (Bld) 6 % 4 - 8 % [facility] Monocytes/100 WBC (Bld) 0.60 % [facility] Neutrophils/100 WBC (Bld) 80 % High 47 - 75 % [facility] Platelets (Bld) [#/Vol] 407 10*3/uL [facility] RBC (Bld) [#/Vol] 4.17 10*6/uL 4.0 - 5.2 m/uL [facility] Segmented neutrophils/100 WBC (Bld) 7.50 % High [facility] WBC other (Bld) [#/Vol] 9.4 [facility] CBC with Diffon 03-07-2023 Abs. Basophil 0.00 k/uL Normal 0.0-0.2 [facility] Comment on above: Performed By: #### L IP, SED, CP, CRP, CDP #### [facility] [address] [place] [phone] ( Hand Sprayer: Aaron Arteaga MD #### FERI #### [address] [phone] Hand Sprayer: Gino Wing MD Abs.Neutrophil (Seg) 7.50 k/uL High 2.5-7.0 [facility] Comment on above: Performed By: #### L IP, SED, CP, CRP, CDP #### [facility] [address] [place] [address] Hand Sprayer: Aaron Arteaga MD #### FERI #### [address] [phone] Hand Sprayer: Gino Wing MD Auto Diff Performed YES Normal [facility] Comment on above: Performed By: #### L IP, SED, CP, CRP, CDP #### [facility] [address] [place] [address] Hand Sprayer: Aaron Arteaga MD #### FERI #### [facility] [employer] [address] [place] [address] Hand Sprayer: Gino Wing MD Basophils/100 WBC (Bld) 0 % Normal 0-[address] [facility] Comment on above: Performed By: #### L IP, SED, CP, CRP, CDP #### [facility] [address] [place] [phone] ( Hand Sprayer: Aaron Arteaga MD #### FERI #### [address] [phone] Hand Sprayer: Gino Wing MD Eosinophils (Bld) [#/Vol] 0.00 10*3/uL Normal 0.0-0.[address] [facility] Comment on above: Performed By: #### L IP, SED, CP, CRP, CDP #### [facility] [address] [place] [address] Hand Sprayer: Aaron Arteaga MD #### FERI #### [address] [phone] Hand Sprayer: Gino Wing MD Eosinophils/100 WBC (Bld) 0 % Normal 0-[address] [facility] Comment on above: Performed By: #### L IP, SED, CP, CRP, CDP #### [facility] [address] [place] [phone] Hand Sprayer: Aaron Arteaga MD #### FERI #### [address] [phone] Hand Sprayer: Gino Wing MD Erythrocyte distribution width (RBC) [Ratio] 13.8 % Normal 12.1-15.[address] [facility] Comment on above: Performed By: #### L IP, SED, CP, CRP, CDP #### [facility] [address] [place] [address] Hand Sprayer: Aaron Arteaga MD #### FERI #### [address] [phone] Hand Sprayer: Gino Wing MD Hematocrit (Bld) [Volume fraction] 33.9 % Low 36-[address] [facility] Comment on above: Performed By: #### L IP, SED, CP, CRP, CDP #### [facility] [address] [place] [address] Hand Sprayer: Aaron Arteaga MD #### FERI #### [address] [phone] Hand Sprayer: Gino Wing MD Hemoglobin (Bld) [Mass/Vol] 11.3 g/dL Low 12.0-16.[address] [facility] Comment on above: Performed By: #### L IP, SED, CP, CRP, CDP #### [facility] [address] [place] [id number] ( Hand Sprayer: Aaron Arteaga MD #### FERI #### [address] [phone] Hand Sprayer: Gino Wing MD Lymphocytes (Bld) [#/Vol] 1.30 10*3/uL Normal 1.0-4.[address] [facility] Comment on above: Performed By: #### L IP, SED, CP, CRP, CDP #### [facility] [address] [place] [phone] ( Hand Sprayer: Aaron Arteaga MD #### FERI #### [place] [address] Hand Sprayer: Gino Wing MD Lymphocytes/100 WBC (Bld) 14 % Low 15-[address] [facility] Comment on above: Performed By: #### L IP, SED, CP, CRP, CDP #### [facility] [address] [place] [phone] Hand Sprayer: Aaron Arteaga MD #### FERI #### [place] [phone] Hand Sprayer: Gnio Wing MD MCH (RBC) [Entitic mass] 27.2 pg Normal 26-[address] [facility] Comment on above: Performed By: #### L IP, SED, CP, CRP, CDP #### [facility] [address] [place] [phone] ( Hand Sprayer: Aaron Arteaga MD #### FERI #### [address] [place], [place] [phone] Hand Sprayer: Gino Wing MD MCHC (RBC) [Mass/Vol] 33.4 g/dL Normal 31-[address] [facility] Comment on above: Performed By: #### L IP, SED, CP, CRP, CDP #### [facility] [address] [place] [address] Hand Sprayer: Aaron Arteaga MD #### FERI #### [address] [phone] Hand Sprayer: Gino Wing MD MCV (RBC) [Entitic vol] 81.4 fL Normal 80-[address] [facility] Comment on above: Performed By: #### L IP, SED, CP, CRP, CDP #### [facility] [address] [place] [address] ( Hand Sprayer: Aaron Arteaga MD #### FERI #### [address] [phone] Hand Sprayer: Gino Wing MD Monocytes (Bld) [#/Vol] 0.60 10*3/uL Normal 0.0-1.[address] [facility] Comment on above: Performed By: #### L IP, SED, CP, CRP, CDP #### [facility] [address] [place] [address] Hand Sprayer: Aaron Arteaga MD #### FERI #### [address] [address] Hand Sprayer: Gino Wing MD Monocytes/100 WBC (Bld) 6 % Normal 4-[address] [facility] Comment on above: Performed By: #### L IP, SED, CP, CRP, CDP #### [facility] [address] [place] [phone] ( Hand Sprayer: Aaron Arteaga MD #### FERI #### [address] [place], [place] [phone] Hand Sprayer: Gino Wing MD Neutrophil (Seg) 80 % High 47-75 [facility] Comment on above: Performed By: #### L IP, SED, CP, CRP, CDP #### [facility] [address] [place], [place] [phone] Hand Sprayer: Aaron Arteaga MD #### FERI #### [address] [phone] Hand Sprayer: Gino Wing MD Platelets (Bld) [#/Vol] 407 10*3/uL Normal 140-[address] [facility] Comment on above: Performed By: #### L IP, SED, CP, CRP, CDP #### [facility] [address] [place], [place] [id number] Hand Sprayer: Aaron Arteaga MD #### FERI #### [address] [phone] Hand Sprayer: Gino Wing MD RBC (Bld) [#/Vol] 4.17 10*6/uL Normal 4.0-5.[address] [facility] Comment on above: Performed By: #### L IP, SED, CP, CRP, CDP #### [facility] [address] [place], [place] [phone] Hand Sprayer: Aaron Arteaga MD #### FERI #### [address] [phone] Hand Sprayer: Gino Wing MD WBC (Bld) [#/Vol] 9.4 10*3/uL Normal 3.5-11.[address] [facility] Comment on above: Performed By: #### L IP, SED, CP, CRP, CDP #### [facility] [address] [place] [address] Hand Sprayer: Aaron Arteaga MD #### FERI #### [facility] [address] [place] [address] Hand Sprayer: Gino Wing MD [facility] 03-07-2023 Albumin [Mass/Vol] 3.8 g/dL 3.5 - 5.2 g/dL [facility] ALP [Catalytic activity/Vol] 81 U/L 35 - 104 U/L [facility] ALT [Catalytic activity/Vol] 8 U/L 5 - 33 U/L [facility] Anion gap [Moles/Vol] 11 mmol/L 9 - 17 mmol/L [facility] AST [Catalytic activity/Vol] 10 U/L NINF - 32 U/L [facility] Bilirubin [Mass/Vol] 0.3 mg/dL 0.3 - 1 .2 mg/dL [facility] Calcium [Mass/Vol] 8.8 mg/dL 8.6 - 10. 4 mg/dL [facility] Chloride [Moles/Vol] 103 mmol/L 98 - 10 7 mmol/L [facility] CO2 [Moles/Vol] 22 mmol/L 20 - 31 mmol/L [facility] Creatinine [Mass/Vol] 0.7 mg/dL 0.5 - 0.9 mg/dL [facility] GFR/1.73 sq M.predicted MDRD (S/P/Bld) [Vol rate/Area] - PINF [facility] Comment on above: These results [...] 131 mg/dL High 70 - 99 mg/dL [facility] Interpretation and review of laboratory results Abnormal [facility] Potassium [Moles/Vol] 4.1 mmol/L 3.7 - 5.3 mmol/L [facility] Protein [Mass/Vol] 6.7 g/dL 6.4 - 8.3 g/dL [facility] Sodium [Moles/Vol] 136 mmol/L 135 - 144 mmol/L [facility] Urea nitrogen [Mass/Vol] 8 mg/dL 6 - 20 mg/dL [facility] Urea nitrogen/Creatinine [Mass ratio] 11 mg/mg 9 - 20 [facility] Comp Metabolic Profon 2022 Albumin [Mass/Vol] 3.8 g/dL Normal 3.5-5.[address] [facility] Comment on above: Performed By: #### L IP, SED, CP, CRP, CDP #### [facility] [address] [place] [address] Hand Sprayer: Aaron Arteaga MD #### FERI #### [address] [phone] Hand Sprayer: Gino Wing MD Alkaline Phos 81 U/L Normal 35-104 [facility] Comment on above: Performed By: #### L IP, SED, CP, CRP, CDP #### [facility] [address] [place], [place] [phone] Hand Sprayer: Araon Arteaga MD #### FERI #### [address] [phone] Hand Sprayer: Gino Wing MD ALT [Catalytic activity/Vol] 8 U/L Normal 5-[address] [facility] Comment on above: Performed By: #### L IP, SED, CP, CRP, CDP #### [facility] [address] [place], [place] [phone] Hand Sprayer: Aaron Arteaga MD #### FERI #### [address] [address] Hand Sprayer: Gino Wing MD Anion gap [Moles/Vol] 11 mmol/L Normal 9-[address] [facility] Comment on above: Performed By: #### L IP, SED, CP, CRP, CDP #### [facility] [address] [place], [place] [phone] Hand Sprayer: Aaron Arteaga MD #### FERI #### [facility] [address] [place] [address] Hand Sprayer: Gino Wing MD AST [Catalytic activity/Vol] 10 U/L Normal <[address] [facility] Comment on above: Performed By: #### L IP, SED, CP, CRP, CDP #### [facility] [address] [place], [place] [phone] Hand Sprayer: Aaron Arteaga MD #### FERI #### [address] [phone] Hand Sprayer: Gino Wing MD Bilirubin [Mass/Vol] 0.3 mg/dL Normal 0.3-1.2 [facility] Comment on above: Performed By: #### L IP, SED, CP, CRP, CDP #### [facility] [address] [place], [place] [phone] Hand Sprayer: Aaron Arteaga MD #### FERI #### [address] [phone] Hand Sprayer: Gino Wing MD BUN/CRE Ratio 11 Normal 9-20 [facility] Comment on above: Performed By: #### L IP, SED, CP, CRP, CDP #### [facility] [address] [place], [place] [phone] Hand Sprayer: Aaron Arteaga MD #### FERI #### [address] [address] Hand Sprayer: Gino Wing MD Calcium [Mass/Vol] 8.8 mg/dL Normal 8.6-10.[address] [facility] Comment on above: Performed By: #### L IP, SED, CP, CRP, CDP #### [facility] [address] [place] [address] Hand Sprayer: Aaron Arteaga MD #### FERI #### [id number] [place], [place] [phone] Hand Sprayer: Gino Wing MD Chloride [Moles/Vol] 103 mmol/L Normal 98-107 [facility] Comment on above: Performed By: #### L IP, SED, CP, CRP, CDP #### [facility] [address] [place] [address] Hand Sprayer: Aaron Arteaga MD #### FERI #### [address] [phone] Hand Sprayer: Gino Wing MD CO2 [Moles/Vol] 22 mmol/L Normal 20-31 [facility] Comment on above: Performed By: #### L IP, SED, CP, CRP, CDP #### [facility] [address] [place] [address] Hand Sprayer: Aaron Arteaga MD #### FERI #### [address] [phone] Hand Sprayer: Gino Wing MD Creatinine [Mass/Vol] 0.7 mg/dL Normal 0.5-0.[address] [facility] Comment on above: Performed By: #### L IP, SED, CP, CRP, CDP #### [facility] [address] [place] [address] Hand Sprayer: Aaron Arteaga MD #### FERI #### [address] [phone] Hand Sprayer: Gino Wing MD GFR/1.73 sq M.predicted among non-blacks MDRD (S/P/Bld) [Vol rate/Area] mL/min/{1.73_m2} Normal >[address] [facility] Comment on above: Result Comment: These [...] L IP, SED, CP, CRP, CDP #### [facility] [address] [place] [address] Hand Sprayer: Aaron Arteaga MD #### FERI #### [address] [phone] Hand Sprayer: Gino Wing MD Glucose [Mass/Vol] 131 mg/dL High 70-[address] [facility] Comment on above: Performed By: #### L IP, SED, CP, CRP, CDP #### [facility] [address] [place] [address] Hand Sprayer: Aaron Arteaga MD #### FERI #### [address] [phone] Hand Sprayer: Gino Wing MD Potassium [Moles/Vol] 4.1 mmol/L Normal 3.7-5.[address] [facility] Comment on above: Performed By: #### L IP, SED, CP, CRP, CDP #### [facility] [address] [place] [address] Hand Sprayer: Aaron Arteaga MD #### FERI #### [address] [phone] Hand Sprayer: Gino Wing MD Protein [Mass/Vol] 6.7 g/dL Normal 6.4-8.[address] [facility] Comment on above: Performed By: #### L IP, SED, CP, CRP, CDP #### [facility] [address] [place], [place] [phone] Hand Sprayer: Aaron Arteaga MD #### FERI #### [address] [phone] Hand Sprayer: Gino Wing MD Sodium [Moles/Vol] 136 mmol/L Normal 135-[address] [facility] Comment on above: Performed By: #### L IP, SED, CP, CRP, CDP #### [facility] [address] [place], [place] [phone] Hand Sprayer: Aaron Arteaga MD #### FERI #### [address] [phone] Hand Sprayer: Gino Wing MD Urea nitrogen [Mass/Vol] 8 mg/dL Normal 6-[address] [facility] Comment on above: Performed By: #### L IP, SED, CP, CRP, CDP #### [facility] [address] [place] [address] Hand Sprayer: Aaron Arteaga MD #### FERI #### [address] [phone] Hand Sprayer: Gino Wing MD Diff Methodon 2 Diff Method AUTO Normal [facility] Comment on above: Performed By: #### L IP, SED, CP, CRP, CDP #### [facility] [address] [place], [place] [phone] Hand Sprayer: Aaron Arteaga MD #### FERI #### [address] [phone] Hand Sprayer: Gino Wing MD HCG, ,Urineon 03-076 Beta HCG ( test) Ql (U) Positive Abnormal NEG [facility] Comment on above: Result Comment: If H CG results do not concur with clinical observations, additional testing to confirm result is recommended. This test is not labeled for use as a tumor marker. Performed By: #### U AYAD ARIZMENDI, [facility] #### [facility] [address] [place] [address] Hand Sprayer: Aaron Arteaga MD Microscopic Urinalysison - [facility] Bacteria LM Ql (Urine sed) RARE Abnormal None [facility] Epithelial cells LM.HPF (Urine sed) [#/Area] 20 TO 50 /HPF [facility] Interpretation and review of laboratory results Abnormal [facility] RBC LM.HPF (Urine sed) [#/Area] 0 TO 2 [facility] WBC LM.HPF (Urine sed) [#/Area] NONE SEEN 0 /HPF [facility] , Urineon 3 HCG ( test) Ql (U) Positive Abnormal NEGATIVE [facility] Comment on above: If HCG results do no t concur with clinical observations, additional testing to confirm result is recommended. This test is not labeled for use as a tumor marker. Interpretation and review of laboratory results Abnormal [facility] Urinalysison 03-07-2023 Bilirubin Ql (U) Negative NEGATIVE [facility] Clarity (U) Clear Clear [facility] Color (U) Yellow Yellow [facility] Comment [facility] Glucose Test strip (U) [Mass/Vol] Negative NEGATIVE mg/dL [facility] Hemoglobin Auto test strip Ql (U) TRACE Abnormal NEGATIVE [facility] Interpretation and review of laboratory results Abnormal [facility] Ketones (U) [Mass/Vol] Negative NEGATIVE mg/dL [facility] Leukocyte esterase Test strip Ql (U) Negative NEGATIVE [facility] Nitrite Ql (U) Negative NEGATIVE [facility] pH (U) 7.0 [pH] 5.0 - 8.0 [facility] Protein (U) [Mass/Vol] Negative NEGATIVE mg/dL [facility] Specific gravity (U) [Rel density] 1.015 1.005 - 1.030 [facility] Urobilinogen Qn (U) Normal 0.0 - 1. 0 EU/dL [facility] Urinalysis, Routineon 2022 Bilirubin, SemiQt,Ur Negative Normal NEG [facility] Comment on above: Performed By: #### U MICAO, UA, CG #### [facility] [address] [place] [address] Hand Sprayer: Aaron Arteaga MD Blood, Urine TRACE Abnormal NEG [facility] Comment on above: Performed By: #### [facility]O, [facility], [facility] #### [facility] [address] [place] [address] Hand Sprayer: Aaron Arteaga MD Clarity (U) Clear Normal CLEAR [facility] Comment on above: Performed By: #### U MICAO, UA, [facility] #### [facility] [address] [place] [address] Hand Sprayer: Aaron Arteaga MD Color (U) Yellow Normal YEL [facility] Comment on above: Performed By: #### U MICAO, UA, [facility] #### [facility] [address] [place] [address] Hand Sprayer: Aaron Arteaga MD Comment Normal [facility] Comment on above: Performed By: #### U MICAO, UA, [facility] #### [facility] [address] [place] [address] Hand Sprayer: Aaron Arteaga MD Glucose Ql (U) Negative Normal NEG [facility] Comment on above: Performed By: #### U MICAO, UA, CG #### [facility] [address] [place] [address] Hand Sprayer: Aaron Arteaga MD Ketones Ql (U) Negative Normal NEG [facility] Comment on above: Performed By: #### U MICAO, UA, CG #### [facility] [address] [place] [address] Hand Sprayer: Aaron Arteaga MD Leukocyte esterase Test strip Ql (U) Negative Normal NEG [facility] Comment on above: Performed By: #### U MICAO, UA, CG #### [facility] [address] [place] [address] Hand Sprayer: Aaron Arteaga MD Nitrite,Ur Negative Normal NEG [facility] Comment on above: Performed By: #### U MICAO, UA, [facility] #### [facility] [address] [place] [address] Hand Sprayer: Aaron Arteaga MD PH,Ur 7.0 Normal 5.0-8.[address] [facility] Comment on above: Performed By: #### U MICAO, UA, [facility] #### [facility] [address] [place] [address] Hand Sprayer: Aaron Arteaga MD Protein Ql (U) Negative Normal NEG [facility] Comment on above: Performed By: #### U MICAO, UA, [facility] #### [facility] [address] [place] [address] Hand Sprayer: Aaron Arteaga MD Spec. [place],Ur 1.015 Normal 1.005-1.030 [facility] Comment on above: Performed By: #### U MICAO, UA, [facility] #### [facility] [address] [place] [address] Hand Sprayer: Aaron Arteaga MD Urobilinogen,Ur Normal Normal 0.0-1.0 [facility] Comment on above: Performed By: #### U MICAO, UA, CG #### [facility] [address] [place] [address] Hand Sprayer: Aaron Arteaga MD Urinalysis,Microon 3 ----- Normal [facility] Comment on above: Performed By: #### U KRISTYNO UA, UHCG #### [facility] [address] [place] [address] Hand Sprayer: Aaron Arteaga MD Bacteria RARE Abnormal NONE [facility] Comment on above: Performed By: #### U MICAO UA, UHCG #### [facility] [address] [place] [address] Hand Sprayer: Aaron Arteaga MD Epithelial cells LM Ql (Urine sed) 20 TO [address] [facility] Comment on above: Performed By: #### U KRISTYNO UA, UHCG #### [facility] [address] [place], [place] [phone] Hand Sprayer: Aaron Arteaga MD Urine RBC's 0 TO 2 Normal 0-[address] [facility] Comment on above: Performed By: #### U MICAO UA, CG #### [facility] [address] [place], [place] [phone] Hand Sprayer: Aaron Arteaga MD Urine WBC's NONE SEEN Normal [address] [facility] Comment on above: Performed By: #### U KRISTYNO UA, UHCG #### [facility] [address] [place], [place] [phone] Hand Sprayer: Aaron Arteaga MD US PELVIS AND TRANSVAGon [...] by: PILAR DOBSON Date: 2023-01-03 10:47 Normal [facility] Strep Gr A Direct Agon 11-14 Strep Gr A Direct Ag Negative Normal NEG [facility] Comment on above: Result Comment: Rapi d Strep A negative. A negative Rapid Group A Strep Screen result does not rule out the possibility of Group A Streptococci in the specimen. A Group A Strep DNA test is available upon request. Performed By: #### R GPA #### [facility] [address] [place] [address] Hand Sprayer: Aaron Arteaga MD Source .THROAT SWAB Normal [facility] Comment on above: Performed By: #### R GPA #### [facility] [address] [place] [address] Hand Sprayer: Aaron Arteaga MD Strep Screen Group A Throato n 11-14-2022 S. pyogenes Ag Ql (Throat) Negative NEGATIVE [facility] Comment on above: Rapid Strep A negati ve. A negative Rapid Group A Strep Screen result does not rule out the possibility of Group A Streptococci in the specimen. A Group A Strep DNA test is available upon request. Source .THROAT SWAB [facility] Drug Scr, Abuse, Uron 2021 Amphetamine(s),Ur Negative Normal NEG [facility] Comment on above: Result Comment: (Positive cutoff 1000 ng/mL) Performed By: #### D AU, URTPRT #### [facility] [address] [place] [address] Hand Sprayer: Gino Wing MD Barbiturate(s),Ur Negative Normal NEG [facility] Comment on above: Result Comment: (Positive cutoff 200 ng/mL) Performed By: #### D AU, URTPRT #### [facility] [address] [place] [address] Hand Sprayer: Gino Wing MD Benzodiazepine(s) Negative Normal NEG [facility] Comment on above: Result Comment: (Positive cutoff 200 ng/mL) Performed By: #### D AU, URTPRT #### [facility] [employer] [address] [place] [address] Hand Sprayer: Gino Wing MD Cannabinoid(s),Ur Negative Normal NEG [facility] Comment on above: Result Comment: (Positive cutoff 50 ng/mL) Performed By: #### D AU, URTPRT #### [facility] [address] [place] [address] Hand Sprayer: Gino Wing MD Cocaine Metabolite Negative Normal NEG [facility] Comment on above: Result Comment: (Positive cutoff 300 ng/mL) Performed By: #### D AU, URTPRT #### [facility] [address] [place] [address] Hand Sprayer: Gino Wing MD Fentanyl, Urine Positive Abnormal NEG [facility] Comment on above: Result Comment: (Positive cutoff 5 ng/ml) Performed By: #### D AU, URTPRT #### [address] [address] Hand Sprayer: Gino Wing MD Interpretive Info Assay provides medic al screening only. The absence of expected drug(s) and/or Normal [facility] Comment on above: Result Comment: meta bolite(s) may indicate diluted or adulterated urine, limitations of testing or timing of collection. Testing for legal purposes should be confirmed by another method. To request confirmation of test result, please call the lab within 7 days of sample submission. Performed By: #### D AU, URTPRT #### [facility] [address] [place] [address] Hand Sprayer: Gino Wing MD Methadone Ql (U) Negative Normal NEG [facility] Comment on above: Result Comment: (Positive cutoff 300 ng/mL) Performed By: #### Lydia CALDWELL, URTPRT #### [employer] [address] [place] [address] Hand Sprayer: Gino Wing MD Opiate(s), Ur Negative Normal NEG [facility] Comment on above: Result Comment: (Positive cutoff 300 ng/mL) Performed By: #### Lydia CALDWELL, URTPRT #### [employer] [address] [place] [address] Hand Sprayer: Gino Wing MD Oxycodone, Urine Positive Abnormal NEG [facility] Comment on above: Result Comment: (Positive cutoff 100 ng/mL) Performed By: #### Lydia CALDWELL, URTPRT #### [employer] [address] [place] [address] Hand Sprayer: Gino Wing MD Phencyclidine, Ur Negative Normal NEG [facility] Comment on above: Result Comment: (Positive cutoff 25 ng/mL) Performed By: #### Lydia CALDWELL, URTPRT #### [facility] [address] [place] [address] Hand Sprayer: Gino Wing MD SURGICAL PATHOLOGY REPORTon 05-27-2022 [...] A: PLACENTA, CORD, AND MEMBRANES Gross Description IQAN CLEMENTS, UNDESIGNATED Placenta with attached membranes and [...] SURGICAL PATHOLOGY CONSULTATION Patient Name: QIAN CLEMENTS [facility] Rec: [id number] Path Number: [id number] [facility] ANATOMIC PATHOLOGY [address] [place] [id number] [facility] CBCon 05-26-2022 Erythrocyte distribution width (RBC) [Ratio] 12.4 % Normal 11.8-14.4 [facility] Comment on above: Performed By: #### C BC, CP #### [employer] [address] [place] [address] [phone] Hand Sprayer: Gino Wing MD Hematocrit (Bld) [Volume fraction] 28.6 % Low 36.3-47.1 [facility] Comment on above: Performed By: #### C BC, CP #### [employer] [address] [place] [address] [phone] Hand Sprayer: Gino Wing MD Hemoglobin (Bld) [Mass/Vol] 9.6 g/dL Low 11.9-15.1 [facility] Comment on above: Performed By: #### C BC, CP #### [employer] [address] [place] [address] [phone] Hand Sprayer: Gino Wing MD MCH (RBC) [Entitic mass] 30.0 pg Normal 25.2-33.5 [facility] Comment on above: Performed By: #### C BC, CP #### [address] [address] Hand Sprayer: Gino Wing MD MCHC (RBC) [Mass/Vol] 33.6 g/dL Normal 28.4-34.8 [facility] Comment on above: Performed By: #### C BC, CP #### [address] [address] Hand Sprayer: Gino Wing MD MCV (RBC) [Entitic vol] 89.4 fL Normal 82.6-102.9 [facility] Comment on above: Performed By: #### C BC, CP #### [address] [address] Hand Sprayer: Gino Wing MD NRBC Automated 0.0 per 100 WBC Normal 0.0 [facility] Comment on above: Performed By: #### C BC, CP #### [address] [address] Hand Sprayer: Gino Wing MD Platelet mean volume (Bld) [Entitic vol] 9.6 fL Normal 8.1-13.5 [facility] Comment on above: Performed By: #### C BC, CP #### [address] [address] Hand Sprayer: Gino Wing MD Platelets (Bld) [#/Vol] 321 10*3/uL Normal 138-453 [facility] Comment on above: Performed By: #### C BC, CP #### [address] [address] Hand Sprayer: Gino Wing MD RBC (Bld) [#/Vol] 3.20 10*6/uL Low 3.95-5.11 [facility] Comment on above: Performed By: #### C DHARA, CP #### [facility] [address] [place], [place] [phone] Hand Sprayer: Gino Wing MD WBC (Bld) [#/Vol] 13.1 10*3/uL High 3.5-11.3 [facility] Comment on above: Performed By: #### C DHARA, CP #### [facility] [address] [place], [place] [phone] Hand Sprayer: Gino Wing MD Hematocrit (Bld) [Volume fraction] 28.6 % Low 36.3 - 47.1 % [facility] Hemoglobin (Bld) [Mass/Vol] 9.6 g/dL Low 11.9 - 15.1 g/dL [facility] Interpretation and review of laboratory results Abnormal [facility] MCH (RBC) [Entitic mass] 30.0 pg 25.2 - 33.5 pg [facility] MCHC (RBC) [Mass/Vol] 33.6 g/dL 28.4 - 34.8 g/dL [facility] MCV (RBC) [Entitic vol] 89.4 fL 82.6 - 102.9 fL [facility] NRBC Automated 0.0 0.0 per 100 WBC [facility] Platelet distribution width (Bld) [Ratio] 12.4 % 11.8 - 14.4 % [facility] Platelet mean volume (Bld) [Entitic vol] 9.6 fL 8.1 - 13.5 fL [facility] Platelets (Bld) [#/Vol] 321 10*3/uL [facility] RBC (Bld) [#/Vol] 3.20 10*6/uL Low 3.95 - 5.1 1 m/uL [facility] WBC (Bld) [#/Vol] 13.1 10*3/uL High [facility] Comp Metabolic Profon 2021 Bilirubin [Mass/Vol] mg/dL Low 0.3-1.2 [facility] Comment on above: Performed By: #### C BC, CP #### [address] [address] Hand Sprayer: Gino Wing MD Albumin [Mass/Vol] 2.4 g/dL Low 3.5-5.2 [facility] Comment on above: Performed By: #### C BC, CP #### [facility] [address] [place] [address] Hand Sprayer: Gino Wing MD Albumin/Glob Ratio 0.9 Low 1.0-2.5 [facility] Comment on above: Performed By: #### C BC, CP #### [facility] [employer] [address] [place] [phone] Hand Sprayer: Gino Wing MD Alkaline Phos 79 U/L Normal 35-104 [facility] Comment on above: Performed By: #### C BC, CP #### [address] [address] Hand Sprayer: Gino Wing MD ALT [Catalytic activity/Vol] 10 U/L Normal 5-33 [facility] Comment on above: Performed By: #### C BC, CP #### [address] [address] Hand Sprayer: Gino Wing MD Anion gap [Moles/Vol] 12 mmol/L Normal 9-17 [facility] Comment on above: Performed By: #### C BC, CP #### [address] [address] Hand Sprayer: Gino Wing MD AST [Catalytic activity/Vol] 20 U/L Normal <32 [facility] Comment on above: Performed By: #### C BC, CP #### [address] [address] Hand Sprayer: Gino Wing MD Calcium [Mass/Vol] 6.6 mg/dL Low 8.6-10.4 [facility] Comment on above: Performed By: #### C DHARA, CP #### [address] [address] Hand Sprayer: Gino Wing MD Chloride [Moles/Vol] 101 mmol/L Normal 98-107 [facility] Comment on above: Performed By: #### C BC, CP #### [address] [address] Hand Sprayer: Gino Wing MD CO2 [Moles/Vol] 19 mmol/L Low 20-31 [facility] Comment on above: Performed By: #### C DHARA, CP #### [address] [address] Hand Sprayer: Gino Wing MD Creatinine [Mass/Vol] 0.60 mg/dL Normal 0.50-0.90 [facility] Comment on above: Performed By: #### C DHARA, CP #### [address] [address] Hand Sprayer: Gino Wing MD GFR/1.73 sq M.predicted among non-blacks MDRD (S/P/Bld) [Vol rate/Area] mL/min/{1.73_m2} Normal >60 [facility] Comment on above: Result Comment: Effective May [...] Performed By: #### C DHARA, CP #### [address] [address] Hand Sprayer: Gino Wing MD Glucose [Mass/Vol] 103 mg/dL High 70-99 [facility] Comment on above: Performed By: #### C BC, CP #### [address] [address] Hand Sprayer: Gino Wing MD Potassium [Moles/Vol] 4.3 mmol/L Normal 3.7-5.3 [facility] Comment on above: Performed By: #### C BC, CP #### [address] [address] Hand Sprayer: Gino Wing MD Protein [Mass/Vol] 5.2 g/dL Low 6.4-8.3 [facility] Comment on above: Performed By: #### C BC, CP #### [address] [address] Hand Sprayer: Gino Wing MD Sodium [Moles/Vol] 132 mmol/L Low 135-144 [facility] Comment on above: Performed By: #### C BC, CP #### [address] [address] Hand Sprayer: Gino Wing MD Urea nitrogen [Mass/Vol] 6 mg/dL Normal 6-20 [facility] Comment on above: Performed By: #### C BC, CP #### [address] [address] Hand Sprayer: Gino Wing MD ALT [Catalytic activity/Vol] U/L Low 5-33 [facility] Comment on above: Performed By: #### C DP, CP #### [address] [address] Hand Sprayer: Gino Wing MD Bilirubin [Mass/Vol] mg/dL Low 0.3-1.2 [facility] Comment on above: Performed By: #### C DP, CP #### [address] [address] Hand Sprayer: Gino Wing MD Albumin [Mass/Vol] 3.1 g/dL Low 3.5-5.2 [facility] Comment on above: Performed By: #### C DP, CP #### [address] [address] Hand Sprayer: Gino Wing MD Albumin/Glob Ratio 1.1 Normal 1.0-2.5 [facility] Comment on above: Performed By: #### C DP, CP #### [address] [address] Hand Sprayer: Gino Wing MD Alkaline Phos 82 U/L Normal 35-104 [facility] Comment on above: Performed By: #### C DP, CP #### [address] [address] Hand Sprayer: Gino Wing MD Anion gap [Moles/Vol] 13 mmol/L Normal 9-17 [facility] Comment on above: Performed By: #### C DP, CP #### [address] [address] Hand Sprayer: Gino Wing MD AST [Catalytic activity/Vol] 17 U/L Normal <32 [facility] Comment on above: Performed By: #### C DP, CP #### [address] [address] Hand Sprayer: Gino Wing MD Calcium [Mass/Vol] 6.6 mg/dL Low 8.6-10.4 [facility] Comment on above: Performed By: #### C DP, CP #### [address] [address] Hand Sprayer: Gino Wing MD Chloride [Moles/Vol] 102 mmol/L Normal 98-107 [facility] Comment on above: Performed By: #### C DP, CP #### [address] [address] Hand Sprayer: Gino Wing MD CO2 [Moles/Vol] 19 mmol/L Low 20-31 [facility] Comment on above: Performed By: #### C DP, CP #### [address] [address] Hand Sprayer: Gino Wing MD Creatinine [Mass/Vol] 0.57 mg/dL Normal 0.50-0.90 [facility] Comment on above: Performed By: #### C DP, CP #### [address] [address] Hand Sprayer: Gino Wing MD GFR/1.73 sq M.predicted among non-blacks MDRD (S/P/Bld) [Vol rate/Area] mL/min/{1.73_m2} Normal >60 [facility] Comment on above: Result Comment: Effective May [...] Performed By: #### C DP, CP #### [address] [address] Hand Sprayer: Gino Wing MD Glucose [Mass/Vol] 109 mg/dL High 70-99 [facility] Comment on above: Performed By: #### C DP, CP #### [address] [address] Hand Sprayer: Gino Wing MD Potassium [Moles/Vol] 4.2 mmol/L Normal 3.7-5.3 [facility] Comment on above: Performed By: #### C DP, CP #### [facility] [address] [place] [address] Hand Sprayer: Gino Wing MD Protein [Mass/Vol] 6.0 g/dL Low 6.4-8.3 [facility] Comment on above: Performed By: #### C DP, CP #### [facility] [address] [place] [address] Hand Sprayer: Gino Wing MD Sodium [Moles/Vol] 134 mmol/L Low 135-144 [facility] Comment on above: Performed By: #### C DP, CP #### [facility] [place] [address] Hand Sprayer: Gino Wing MD Urea nitrogen [Mass/Vol] 6 mg/dL Normal 6-20 [facility] Comment on above: Performed By: #### C DP, CP #### [facility] [place] [address] Hand Sprayer: Gino Wing MD [facility] 05-26-2022 Albumin [Mass/Vol] 2.4 g/dL Low 3.5 - 5.2 g/dL [facility] Albumin/Globulin [Mass ratio] 0.9 {ratio} Low 1 - 2.5 [facility] ALP (Bld) [Catalytic activity/Vol] 79 U/L 35 - 104 U/L [facility] ALT [Catalytic activity/Vol] 10 U/L 5 - 33 U/L [facility] Anion gap [Moles/Vol] 12 mmol/L 9 - 17 mmol/L [facility] AST [Catalytic activity/Vol] 20 U/L NINF - 32 U/L [facility] Bilirubin [Mass/Vol] mg/dL Low 0.3 - 1 .2 mg/dL [facility] Calcium [Mass/Vol] 6.6 mg/dL Low 8.6 - 10. 4 mg/dL [facility] Chloride [Moles/Vol] 101 mmol/L 98 - 10 7 mmol/L [facility] CO2 [Moles/Vol] 19 mmol/L Low 20 - 31 mmol/L [facility] Creatinine [Mass/Vol] 0.6 mg/dL 0.5 - 0.9 mg/dL [facility] GFR/1.73 sq M.predicted MDRD (S/P/Bld) [Vol rate/Area] - PINF [facility] Comment on above: Effective May [...] 103 mg/dL High 70 - 99 mg/dL [facility] Interpretation and review of laboratory results Abnormal [facility] Potassium [Moles/Vol] 4.3 mmol/L 3.7 - 5.3 mmol/L [facility] Protein [Mass/Vol] 5.2 g/dL Low 6.4 - 8.3 g/dL [facility] Sodium [Moles/Vol] 132 mmol/L Low 135 - 144 mmol/L [facility] Urea nitrogen (BldV) [Mass/Vol] 6 mg/dL 6 - 20 mg/dL [facility] Protein / Creatinine Ratio, Urineon 05-26-2022 Creatinine, Ur 33.9 mg/dL 28 - 217 mg/dL [facility] Interpretation and review of laboratory results Abnormal [facility] Protein (U) [Mass/Vol] 26 mg/dL [facility] Comment on above: No normal range esta blished. Urine Total Protein Creatinine Ratio 0.77 High 0 - 0.2 [facility] Protein,Tot,Jarales Uron 2021 Creatinine [Mass/Vol] 33.9 mg/dL Normal 28.0-217.0 [facility] Comment on above: Performed By: #### Lydia CALDWELL URTPRT #### [address] [address] Hand Sprayer: Gino Wing MD Tot Prot. Conc. 26 mg/dL Normal [facility] Comment on above: Result Comment: No n ormal range established. Performed By: #### Lydia CALDWELL URTPRT #### [address] [address] Hand Sprayer: Gino Wing MD TP/Cre Ratio 0.77 High 0.00-0.20 [facility] Comment on above: Performed By: #### Lydia CALDWELL URTPRT #### [address] [address] Hand Sprayer: Gino Wing MD T.pallidum Ab Screenon 05-26 T.pallidum Ab Screen Non-Reactive Normal NR [facility] Comment on above: Result Comment: T. pallidum antibodies are not detected. There is no serological evidence of infection with T. pallidum (early primary syphilis cannot be excluded). Retest in 2-4 weeks if syphilis is clinically suspect. Performed By: #### Jeremiah JULES CP #### [address] [address] Hand Sprayer: Gino Wing MD APTTon 05-25-2022 aPTT Coag (Bld) [Time] 24.7 s Normal 20.5-30.5 [facility] Comment on above: Result Comment: IV Heparin Therapy Range: 48.6-77.8 Performed By: #### Jeremiah JULES, CP #### [address] [address] Hand Sprayer: Gino Wing MD aPTT Coag (Bld) [Time] 24.7 s [facility] Comment on above: IV Heparin Therapy Range: 48.6-77.8 [facility] 05-25-2022 Erythrocyte distribution width (RBC) [Ratio] 12.6 % Normal 11.8-14.4 [facility] Comment on above: Performed By: #### M G, FIB, LD, URI, HAPT, CBC, CP, PTT, PT #### [address] [address] Hand Sprayer: Gino Wing MD Hematocrit (Bld) [Volume fraction] 31.0 % Low 36.3-47.1 [facility] Comment on above: Performed By: #### M G, FIB, LD, URI, HAPT, CBC, CP, PTT, PT #### [address] [address] Hand Sprayer: Gino Wing MD Hemoglobin (Bld) [Mass/Vol] 10.4 g/dL Low 11.9-15.1 [facility] Comment on above: Performed By: #### M G, FIB, LD, URI, HAPT, CBC, CP, PTT, PT #### [address] [address] Hand Sprayer: Gino Wing MD MCH (RBC) [Entitic mass] 29.5 pg Normal 25.2-33.5 [facility] Comment on above: Performed By: #### M G, FIB, LD, URI, HAPT, CBC, CP, PTT, PT #### [address] [address] Hand Sprayer: Gino Wing MD MCHC (RBC) [Mass/Vol] 33.5 g/dL Normal 28.4-34.8 [facility] Comment on above: Performed By: #### M G, FIB, LD, URI, HAPT, CBC, CP, PTT, PT #### [address] [address] Hand Sprayer: Gino Wing MD MCV (RBC) [Entitic vol] 87.8 fL Normal 82.6-102.9 [facility] Comment on above: Performed By: #### M G, FIB, LD, URI, HAPT, CBC, CP, PTT, PT #### [address] [id number] Hand Sprayer: Gino Wing MD NRBC Automated 0.0 per 100 WBC Normal 0.0 [facility] Comment on above: Performed By: #### M G, FIB, LD, URI, HAPT, CBC, CP, PTT, PT #### [address] [address] Hand Sprayer: Gino Wing MD Platelet mean volume (Bld) [Entitic vol] 9.6 fL Normal 8.1-13.5 [facility] Comment on above: Performed By: #### M G, FIB, LD, URI, HAPT, CBC, CP, PTT, PT #### [address] [address] Hand Sprayer: Gino Wing MD Platelets (Bld) [#/Vol] 343 10*3/uL Normal 138-453 [facility] Comment on above: Performed By: #### M G, FIB, LD, URI, HAPT, CBC, CP, PTT, PT #### [address] [address] Hand Sprayer: Gino Wing MD RBC (Bld) [#/Vol] 3.53 10*6/uL Low 3.95-5.11 [facility] Comment on above: Performed By: #### M G, FIB, LD, URI, HAPT, CBC, CP, PTT, PT #### [address] [address] Hand Sprayer: Gino iWng MD WBC (Bld) [#/Vol] 13.2 10*3/uL High 3.5-11.3 [facility] Comment on above: Performed By: #### M G, FIB, LD, URI, HAPT, CBC, CP, PTT, PT #### [facility] [address] [id number] Hand Sprayer: Gino Wing MD Hematocrit (Bld) [Volume fraction] 31.0 % Low 36.3 - 47.1 % [facility] Hemoglobin (Bld) [Mass/Vol] 10.4 g/dL Low 11.9 - 15.1 g/dL [facility] Interpretation and review of laboratory results Abnormal [facility] MCH (RBC) [Entitic mass] 29.5 pg 25.2 - 33.5 pg [facility] MCHC (RBC) [Mass/Vol] 33.5 g/dL 28.4 - 34.8 g/dL [facility] MCV (RBC) [Entitic vol] 87.8 fL 82.6 - 102.9 fL [facility] NRBC Automated 0.0 0.0 per 100 WBC [facility] Platelet distribution width (Bld) [Ratio] 12.6 % 11.8 - 14.4 % [facility] Platelet mean volume (Bld) [Entitic vol] 9.6 fL 8.1 - 13.5 fL [facility] Platelets (Bld) [#/Vol] 343 10*3/uL [facility] RBC (Bld) [#/Vol] 3.53 10*6/uL Low 3.95 - 5.1 1 m/uL [facility] WBC (Bld) [#/Vol] 13.2 10*3/uL High [facility] CBC with Auto Differentialon 05-25-2022 Absolute Eos # [facility] Absolute Immature Granulocyte 0.17 [facility] Absolute Lymph # 2.57 [facility] Absolute Alpine # 1.40 High [facility] Basophils (Bld) [#/Vol] 0.03 10*3/uL [facility] Basophils/100 WBC (Bld) 0 % 0 - 2 % [facility] Eosinophils/100 WBC (Bld) 0 % Low 1 - 4 % [facility] Hematocrit (Bld) [Volume fraction] 29.8 % Low 36.3 - 47.1 % [facility] Hemoglobin (Bld) [Mass/Vol] 10.1 g/dL Low 11.9 - 15.1 g/dL [facility] Immature granulocytes/100 WBC (Bld) 1 % High 0 [facility] Interpretation and review of laboratory results Abnormal [facility] Lymphocytes/100 WBC (Bld) 15 % Low 24 - 43 % [facility] MCH (RBC) [Entitic mass] 29.8 pg 25.2 - 33.5 pg [facility] MCHC (RBC) [Mass/Vol] 33.9 g/dL 28.4 - 34.8 g/dL [facility] MCV (RBC) [Entitic vol] 87.9 fL 82.6 - 102.9 fL [facility] Monocytes/100 WBC (Bld) 8 % 3 - 12 % [facility] NRBC Automated 0.0 0.0 per 100 WBC [facility] Platelet distribution width (Bld) [Ratio] 12.7 % 11.8 - 14.4 % [facility] Platelet mean volume (Bld) [Entitic vol] 9.4 fL 8.1 - 13.5 fL [facility] Platelets (Bld) [#/Vol] 350 10*3/uL [facility] RBC (Bld) [#/Vol] 3.39 10*6/uL Low 3.95 - 5.1 1 m/uL [facility] Segmented neutrophils/100 WBC (Bld) 76 % High 36 - 65 % [facility] Segs Absolute 12.92 High [facility] WBC (Bld) [#/Vol] 17.1 10*3/uL High [facility] CBC with Diffon 05-25-2022 Abs. Basophil 0.03 k/uL Normal 0.00-0.20 [facility] Comment on above: Performed By: #### C DP, CP #### [facility] [place] [address] Hand Sprayer: Gino Wing MD Abs. Eosinophil <0.03 Normal 0.00-0.44 [facility] Comment on above: Performed By: #### C DP, CP #### [address] [address] Hand Sprayer: Gino Wing MD Abs.Imm.Granulocyte 0.17 k/uL Normal 0.00-0.30 [facility] Comment on above: Performed By: #### C DP, CP #### [address] [address] Hand Sprayer: Gino Wing MD Abs.Neutrophil (Seg) 12.92 k/uL High 1.50-8.10 [facility] Comment on above: Performed By: #### C DP, CP #### [address] [address] Hand Sprayer: Gino Wing MD Basophils/100 WBC (Bld) 0 % Normal 0-2 [facility] Comment on above: Performed By: #### C DP, CP #### [address] [address] Hand Sprayer: Gino Wing MD Eosinophils/100 WBC (Bld) 0 % Low 1-4 [facility] Comment on above: Performed By: #### C DP, CP #### [address] [address] Hand Sprayer: Gino Wing MD Erythrocyte distribution width (RBC) [Ratio] 12.7 % Normal 11.8-14.4 [facility] Comment on above: Performed By: #### C DP, CP #### [address] [address] Hand Sprayer: Gino Wing MD Hematocrit (Bld) [Volume fraction] 29.8 % Low 36.3-47.1 [facility] Comment on above: Performed By: #### C DP, CP #### [address] [address] Hand Sprayer: Gino Wing MD Hemoglobin (Bld) [Mass/Vol] 10.1 g/dL Low 11.9-15.1 [facility] Comment on above: Performed By: #### C DP, CP #### [address] [address] Hand Sprayer: Gino Wing MD Immature granulocytes/100 WBC (Bld) 1 % High 0 [facility] Comment on above: Performed By: #### C DP, CP #### [address] [address] Hand Sprayer: Gino Wing MD Lymphocytes (Bld) [#/Vol] 2.57 10*3/uL Normal 1.10-3.70 [facility] Comment on above: Performed By: #### C DP, CP #### [address] [address] Hand Sprayer: Gino Wing MD Lymphocytes/100 WBC (Bld) 15 % Low 24-43 [facility] Comment on above: Performed By: #### C DP, CP #### [address] [address] Hand Sprayer: Gino Wing MD MCH (RBC) [Entitic mass] 29.8 pg Normal 25.2-33.5 [facility] Comment on above: Performed By: #### C DP, CP #### [address] [address] Hand Sprayer: Gino Wing MD MCHC (RBC) [Mass/Vol] 33.9 g/dL Normal 28.4-34.8 [facility] Comment on above: Performed By: #### C DP, CP #### [address] [address] Hand Sprayer: Gino Wing MD MCV (RBC) [Entitic vol] 87.9 fL Normal 82.6-102.9 [facility] Comment on above: Performed By: #### C DP, CP #### [address] [address] Hand Sprayer: Gino Wing MD Monocytes (Bld) [#/Vol] 1.40 10*3/uL High 0.10-1.20 [facility] Comment on above: Performed By: #### C DP, CP #### [address] [address] Hand Sprayer: Gino Wing MD Monocytes/100 WBC (Bld) 8 % Normal 3-12 [facility] Comment on above: Performed By: #### C DP, CP #### [address] [address] Hand Sprayer: Gino Wing MD Neutrophil (Seg) 76 % High 36-65 [facility] Comment on above: Performed By: #### C DP, CP #### [address] [address] Hand Sprayer: Gino Wing MD NRBC Automated 0.0 per 100 WBC Normal 0.0 [facility] Comment on above: Performed By: #### C DP, CP #### [address] [address] Hand Sprayer: Gino Wing MD Platelet mean volume (Bld) [Entitic vol] 9.4 fL Normal 8.1-13.5 [facility] Comment on above: Performed By: #### C DP, CP #### [address] [address] Hand Sprayer: Gino Wing MD Platelets (Bld) [#/Vol] 350 10*3/uL Normal 138-453 [facility] Comment on above: Performed By: #### C DP, CP #### [facility] [address] [place] [address] Hand Sprayer: Gino Wing MD RBC (Bld) [#/Vol] 3.39 10*6/uL Low 3.95-5.11 [facility] Comment on above: Performed By: #### C DP, CP #### [facility] [address] [place] [address] Hand Sprayer: Gnio Wing MD WBC (Bld) [#/Vol] 17.1 10*3/uL High 3.5-11.3 [facility] Comment on above: Performed By: #### C DP, CP #### [id number] [place] [address] Hand Sprayer: Gino Wing MD CT HEAD WO CONTRASTon [...] Dale Barcenas MD 05/25/22 Final result Normal [facility] No acute intracrania l abnormality. [facility] EXAMINATION: CT OF THE HEAD WITHOUT [...] visualized skull or soft tissues. [facility] Dale Barcenas MD - 05/25/2022 EXAMINATION: [...] soft tissues. IMPRESSION: No acute intracranial abnormality. [email or web address] Phone: Radiology Study observation (narrative) [email or web address] Phone: CT HEAD WO CONTRASTOrdered B y: Dale Barcenas on 05-25-2022 [facility] [employer] Work Phone: Comp Metabolic Profon 2021 ALT [Catalytic activity/Vol] 5 U/L Normal 5-33 [facility] Comment on above: Performed By: #### C BC, CP #### [facility] [employer] [address] [place] [address] Hand Sprayer: Gino Wing MD Bilirubin [Mass/Vol] mg/dL Low 0.3-1.2 [facility] Comment on above: Performed By: #### C BC, CP #### [facility] [employer] [address] [place] [address] Hand Sprayer: Gino Wing MD Albumin [Mass/Vol] 3.1 g/dL Low 3.5-5.2 [facility] Comment on above: Performed By: #### C BC, CP #### [facility] [employer] [address] [place] [address] Hand Sprayer: Gino Wing MD Albumin/Glob Ratio 1.0 Normal 1.0-2.5 [facility] Comment on above: Performed By: #### C BC, CP #### [address] [address] Hand Sprayer: Gino Wing MD Alkaline Phos 79 U/L Normal 35-104 [facility] Comment on above: Performed By: #### C BC, CP #### [address] [address] Hand Sprayer: Gino Wing MD Anion gap [Moles/Vol] 12 mmol/L Normal 9-17 [facility] Comment on above: Performed By: #### C BC, CP #### [address] [address] Hand Sprayer: Gino Wing MD AST [Catalytic activity/Vol] 9 U/L Normal <32 [facility] Comment on above: Performed By: #### C BC, CP #### [facility] [address] [place] [address] Hand Sprayer: Gino Wing MD Calcium [Mass/Vol] 6.6 mg/dL Low 8.6-10.4 [facility] Comment on above: Performed By: #### C BC, CP #### [facility] [address] [place] [address] Hand Sprayer: Gino Wing MD Chloride [Moles/Vol] 103 mmol/L Normal 98-107 [facility] Comment on above: Performed By: #### C BC, CP #### [facility] [address] [place] [address] Hand Sprayer: Gino Wing MD CO2 [Moles/Vol] 19 mmol/L Low 20-31 [facility] Comment on above: Performed By: #### C BC, CP #### [facility] [address] [place] [address] Hand Sprayer: Gino Wing MD Creatinine [Mass/Vol] 0.46 mg/dL Low 0.50-0.90 [facility] Comment on above: Performed By: #### C BC, CP #### [address] [address] Hand Sprayer: Gino Wing MD GFR/1.73 sq M.predicted among non-blacks MDRD (S/P/Bld) [Vol rate/Area] mL/min/{1.73_m2} Normal >60 [facility] Comment on above: Result Comment: Effective May [...] #### C BC, CP #### [facility] [address] [place] [address] Hand Sprayer: Gino Wing MD Glucose [Mass/Vol] 118 mg/dL High 70-99 [facility] Comment on above: Performed By: #### C BC, CP #### [facility] [address] [place] [address] Hand Sprayer: Gino Wing MD Potassium [Moles/Vol] 3.8 mmol/L Normal 3.7-5.3 [facility] Comment on above: Performed By: #### C BC, CP #### [facility] [employer] [address] [place] [address] Hand Sprayer: Gino Wing MD Protein [Mass/Vol] 6.2 g/dL Low 6.4-8.3 [facility] Comment on above: Performed By: #### C BC, CP #### [facility] [address] [place] [address] Hand Sprayer: Gino Wing MD Sodium [Moles/Vol] 134 mmol/L Low 135-144 [facility] Comment on above: Performed By: #### C BC, CP #### [facility] [employer] [address] [place] [address] Hand Sprayer: Gino Wing MD Urea nitrogen [Mass/Vol] 6 mg/dL Normal 6-20 [facility] Comment on above: Performed By: #### C BC, CP #### [employer] [address] [place] [address] Hand Sprayer: Gino Wing MD Comprehensive Metabolic [facility] 05-25-2022 Albumin [Mass/Vol] 3.1 g/dL Low 3.5 - 5.2 g/dL [facility] Albumin/Globulin [Mass ratio] 1.1 {ratio} 1 - 2.5 [facility] ALP (Bld) [Catalytic activity/Vol] 82 U/L 35 - 104 U/L [facility] ALT [Catalytic activity/Vol] U/L Low 5 - 33 U/L [facility] Anion gap [Moles/Vol] 13 mmol/L 9 - 17 mmol/L [facility] AST [Catalytic activity/Vol] 17 U/L NINF - 32 U/L [facility] Bilirubin [Mass/Vol] mg/dL Low 0.3 - 1 .2 mg/dL [facility] Calcium [Mass/Vol] 6.6 mg/dL Low 8.6 - 10. 4 mg/dL [facility] Chloride [Moles/Vol] 102 mmol/L 98 - 10 7 mmol/L [facility] CO2 [Moles/Vol] 19 mmol/L Low 20 - 31 mmol/L [facility] Creatinine [Mass/Vol] 0.57 mg/dL 0.5 - 0.9 mg/dL [facility] GFR/1.73 sq M.predicted MDRD (S/P/Bld) [Vol rate/Area] - PINF [facility] Comment on above: Effective May [...] 109 mg/dL High 70 - 99 mg/dL [facility] Interpretation and review of laboratory results Abnormal [facility] Potassium [Moles/Vol] 4.2 mmol/L 3.7 - 5.3 mmol/L [facility] Protein [Mass/Vol] 6.0 g/dL Low 6.4 - 8.3 g/dL [facility] Sodium [Moles/Vol] 134 mmol/L Low 135 - 144 mmol/L [facility] Urea nitrogen (BldV) [Mass/Vol] 6 mg/dL 6 - 20 mg/dL [facility] Albumin [Mass/Vol] 3.1 g/dL Low 3.5 - 5.2 g/dL [facility] Albumin/Globulin [Mass ratio] 1.0 {ratio} 1 - 2.5 [facility] ALP (Bld) [Catalytic activity/Vol] 79 U/L 35 - 104 U/L [facility] ALT [Catalytic activity/Vol] 5 U/L 5 - 33 U/L [facility] Anion gap [Moles/Vol] 12 mmol/L 9 - 17 mmol/L [facility] AST [Catalytic activity/Vol] 9 U/L NINF - 32 U/L [facility] Bilirubin [Mass/Vol] mg/dL Low 0.3 - 1 .2 mg/dL [facility] Calcium [Mass/Vol] 6.6 mg/dL Low 8.6 - 10. 4 mg/dL [facility] Chloride [Moles/Vol] 103 mmol/L 98 - 10 7 mmol/L [facility] CO2 [Moles/Vol] 19 mmol/L Low 20 - 31 mmol/L [facility] Creatinine [Mass/Vol] 0.46 mg/dL Low 0.5 - 0.9 mg/dL [facility] GFR/1.73 sq M.predicted MDRD (S/P/Bld) [Vol rate/Area] - PINF [facility] Comment on above: Effective May [...] 118 mg/dL High 70 - 99 mg/dL [facility] Interpretation and review of laboratory results Abnormal [facility] Potassium [Moles/Vol] 3.8 mmol/L 3.7 - 5.3 mmol/L [facility] Protein [Mass/Vol] 6.2 g/dL Low 6.4 - 8.3 g/dL [facility] Sodium [Moles/Vol] 134 mmol/L Low 135 - 144 mmol/L [facility] Urea nitrogen (BldV) [Mass/Vol] 6 mg/dL 6 - 20 mg/dL [facility] Fibrinogenon 05-25-2022 Fibrinogen 367 mg/dL Normal 140-420 [facility] Comment on above: Performed By: #### C BC, CP #### [facility] [employer] [address] [place] [address] [phone] Hand Sprayer: Gino Wing MD Fibrinogen 367 mg/dL 140 - 420 mg/dL [facility] Haptoglobinon 05-25-2022 Haptoglobin 159 mg/dL Normal 30-200 [facility] Comment on above: Performed By: #### M G, FIB, LD, URI, HAPT, CBC, CP, PTT, PT #### [facility] [employer] [address] [place] [address] [phone] Hand Sprayer: Gino Wing MD Haptoglobin 159 mg/dL 30 - 200 mg/dL [facility] Lactate Dehydrogenaseon LDH [Catalytic activity/Vol] 118 U/L Low 135-214 [facility] Comment on above: Performed By: #### M G, FIB, LD, URI, HAPT, CBC, CP, PTT, PT #### [facility] [employer] [facility] [place], [place] [phone] Hand Sprayer: Gino Wing MD Interpretation and review of laboratory results Abnormal [facility] LD 118 U/L Low 135 - 214 U/L [facility] MAGNESIUM DRIP MONITORon Magnesium [Mass/Vol] 5.0 mg/dL Normal 3.6-6.8 [facility] Comment on above: Performed By: #### U RCX #### [facility] [address] [place] [address] Dr. Elda Velasquez Magnesiumon 10-04-2022 Magnesium [Mass/Vol] 5.0 mg/dL High 1.6-2.6 [facility] Comment on above: Performed By: #### C DHARA, CP #### [employer] [facility] [place], [place] [phone] Hand Sprayer: Gino Wing MD Interpretation and review of laboratory results Abnormal [facility] Magnesium [Mass/Vol] 5.0 mg/dL High 1.6 - 2 .6 mg/dL [facility] No Panel Informationon 05-25 [facility] PTon 05-25-2022 INR Coag (PPP) [Relative time] 0.9 {INR} Normal [facility] Comment on above: Result Comment: Therapeutic Range: Moderate Anticoagulant Intensity: INR = 2.0-3.0 High Anticoagulant Intensity: INR = 2.5-3.5 Performed By: #### Jeremiah JULES, CP #### [employer] [address] [place] [address] [phone] Hand Sprayer: Gino Wing MD PT Coag (PPP) [Time] 9.4 s Normal 9.1-12.3 [facility] Comment on above: Performed By: #### Jeremiah JULES, CP #### [employer] [facility] [place], [place] [phone] Hand Sprayer: Gino Wing MD Protime-INRon 05-25-2022 INR Coag (Bld) [Relative time] 0.9 {INR} [facility] Comment on above: Therapeutic Range: Moderate Anticoagulant Intensity: INR = 2.0-3.0 High Anticoagulant Intensity: INR = 2.5-3.5 PT Coag (PPP) [Time] 9.4 s [facility] Surgical Pathologyon 022 Surgical Pathology [...] SURGICAL PATHOLOGY CONSULTATION Patient Name: QIAN CLEMENTS. [facility] Rec: [id number] Path Number: [id number] [facility] ANATOMIC PATHOLOGY [address] [place] [id number] [facility] Comment on above: Performed By: #### C BC, CP #### [employer] [address] [place] [address] [phone] Hand Sprayer: Gino Wing MD T. pallidum Abon 05-25-2022 T. pallidum, IgG Non-Reactive NONREACTIVE [facility] [employer] [email or web address] Comment on above: T. pallidum antibodies are not detected. There is no serological evidence of infection with T. pallidum (early primary syphilis cannot be excluded). Retest in 2-4 weeks if syphilis is clinically suspect. [facility] [employer] TYPE AND SCREENon 05-25-2022 ABO/Rh Positive [facility] Arm Band Number BE [id number] MONSERRAT OLMEDO [facility] Expiration Date 05/28/2022,235 [facility] MONSERRAT SORTO [facility] Type + Screenon 05-25-2022 Type + Screen Sample Expiration 05/28/2022,2359 Arm Band Number BE [id number] ABO/Rh(D) O POSITIVE Antibody Screen NEGATIVE Normal [facility] Comment on above: Performed By: #### T YS #### [employer] [address] [place] [phone] Hand Sprayer: Gino Wing MD US PREG BIOPHY W [...] by: AARON DELACRUZ Date: 2022-05-25 07:12 Normal [facility] US PREG GROWTHon 05-25-2022 US PREG GROWTH [...] AARON DELACRUZ Date: 2022-05-25 07:27 Normal [facility] Uric Acidon 05-25-2022 Urate [Mass/Vol] 3.8 mg/dL Normal 2.4-5.7 [facility] Comment on above: Performed By: #### C BC, CP #### [facility] [address] [place] [address] Hand Sprayer: Gino Wing MD Urate [Mass/Vol] 3.8 mg/dL 2.4 - 5.7 mg/dL [facility] CBC AUTO DIFFon 05-24-2022 BASO # 0.0 103/ul Normal 0.0-0.1 [facility] Comment on above: Performed By: #### C BC #### [facility] [address] [place] [address] Dr. Elda Velasquez Basophils/100 WBC (Bld) 0.3 % Normal 0.2-2.0 [facility] Comment on above: Performed By: #### C BC #### [facility] [address] [place] [address] Dr. Elda Velasquez EO # 0.0 103/ul Normal 0.0-0.7 [facility] Comment on above: Performed By: #### C BC #### [facility] [address] [place] [address] Dr. Elda Velasquez Eosinophils/100 WBC (Bld) 0.2 % Critically low 0.9-7.0 [facility] Comment on above: Performed By: #### C BC #### [facility] [address] [place] [address] Dr. Elda Velasquez Erythrocyte distribution width (RBC) [Ratio] 12.3 % Normal 11.0-15.0 [facility] Comment on above: Performed By: #### C BC #### [facility] [address] [place] [address] Dr. Elda Velasquez Hematocrit (Bld) [Volume fraction] 31.5 % Critically low 36.0-48.0 [facility] Comment on above: Performed By: #### C BC #### [facility] [address] [place] [address] Dr. Elda Velasquez Hemoglobin (Bld) [Mass/Vol] 10.2 g/dL Critically low 12.0-16.0 [facility] Comment on above: Performed By: #### C BC #### [facility] [address] [place] [address] Dr. Elda Velasquez IG # 0.16 10e3/ul Critically high 0.00-0.03 [facility] Comment on above: Performed By: #### C BC #### [facility] [address] [place] [address] Dr. Elda Velasquez IG % 1.3 % Critically high 0.0-0.5 [facility] Comment on above: Performed By: #### C BC #### [facility] [address] [place] [address] Dr. Elda Velasquez LYMPH # 2.1 103/ul Normal 1.2-3.8 [facility] Comment on above: Performed By: #### C BC #### [facility] [address] [place] [address] Dr. Elda Velasquez Lymphocytes/100 WBC (Bld) 17.1 % Critically low 20.5-60.0 [facility] Comment on above: Performed By: #### C BC #### [facility] [address] [place] [address] Dr. Elda Velasquez MANUAL DIFF REQ NO Normal [facility] Comment on above: Performed By: #### C BC #### [facility] [address] [place] [address] Dr. Elda Velasquez MCH (RBC) [Entitic mass] 29.0 pg Normal 26.7-34.0 [facility] Comment on above: Performed By: #### C BC #### [facility] [address] [place] [address] Dr. Elda Velasquez MCHC (RBC) [Mass/Vol] 32.4 g/dL Normal 29.9-35.2 [facility] Comment on above: Performed By: #### C BC #### [facility] [address] [address] [address] Elda Velasquez MCV (RBC) [Entitic vol] 89.5 fL Normal 81.0-99.0 [facility] Comment on above: Performed By: #### C BC #### [facility] [address] [place] [address] Dr. Elda Velasquez MONO # 0.9 103/ul Critically high 0.3-0.8 [facility] Comment on above: Performed By: #### C BC #### [facility] [address] [place] [address] Dr. Elda Velasquez Monocytes/100 WBC (Bld) 7.1 % Normal 1.7-12.0 [facility] Comment on above: Performed By: #### C BC #### [facility] [address] [place] [address] Dr. Elda Velasquez NEUT # 8.9 103/ul Critically high 1.4-6.5 [facility] Comment on above: Performed By: #### C BC #### [facility] [address] [place] [address] Dr. Elda Velasquez Neutrophils/100 WBC (Bld) 74.0 % Normal 43.0-75.0 [facility] Comment on above: Performed By: #### C BC #### [facility] [address] [place] [address] Dr. Elda Velasquez Platelet mean volume (Bld) [Entitic vol] 9.4 fL Critically low 9.5-13.5 [facility] Comment on above: Performed By: #### C BC #### [facility] [address] [place] [address] Dr. Elda Velasquez PLT 340 103/ul Normal 150-450 [facility] Comment on above: Performed By: #### C BC #### [facility] [address] [place] [address] Dr. Elda Velasquez RBC 3.52 106/ul Critically low 4.20-5.40 [facility] Comment on above: Performed By: #### C BC #### [facility] [address] [place], [place] [address] Dr. Elda Velasquez WBC 12.0 103/ul Critically high 4.0-11.0 [facility] Comment on above: Performed By: #### C BC #### [facility] [address] [place], [place] [address] Dr. Elda Velasquez CTA CHEST WO W [...] by: MARGOT LAU Date: 2022-05-24 19:33 Normal [facility] LDHon 05-24-2022 LDH 90 U/L Normal 81-234 [facility] Comment on above: Performed By: #### U JUAN F, LDH, CMP #### [facility] [address] [address] [address] Elda Velasquez PROF 14(COMP METB)on 022 Albumin [Mass/Vol] 2.3 g/dL Critically low 3.4-5.0 [facility] Comment on above: Performed By: #### U JUAN F, LDH, CMP #### [facility] [address] [place] [address] Dr. Elda eVlasquez Albumin/Globulin [Mass ratio] 0.6 {ratio} Normal [facility] Comment on above: Performed By: #### U JUAN F, LDH, CMP #### [facility] [address] [address] [address] Elda Velasquez ALP [Catalytic activity/Vol] 87 U/L Normal 46-116 [facility] Comment on above: Performed By: #### U JUAN F, LDH, CMP #### [facility] [address] [place] [address] Dr. Elda Velasquez ALT [Catalytic activity/Vol] 11 U/L Critically low 14-59 [facility] Comment on above: Performed By: #### U JUAN F, LDH, CMP #### [facility] [address] [address] [address] Elda Velasquez Anion gap [Moles/Vol] 13.3 mmol/L Normal [facility] Comment on above: Performed By: #### U JUAN F, LDH, CMP #### [facility] [address] [place] [address] Dr. Elda Velasquez AST [Catalytic activity/Vol] 5 U/L Critically low 15-37 [facility] Comment on above: Performed By: #### U JUAN F, LDH, CMP #### [facility] [address] [address] [address] Elda Velasquez Bilirubin [Mass/Vol] 0.1 mg/dL Critically low 0.2-1.0 [facility] Comment on above: Performed By: #### U JUAN F, LDH, CMP #### [facility] [address] [place] [address] Dr. Elda Velasquez Calcium [Mass/Vol] 8.3 mg/dL Critically low 8.5-10.1 [facility] Comment on above: Performed By: #### U JUAN F, LDH, CMP #### [facility] [address] [address] [address] Elda Velasquez Chloride [Moles/Vol] 106 mmol/L Normal 98-107 [facility] Comment on above: Performed By: #### U JUAN F, LDH, CMP #### [facility] [address] [address] [address] Elda Velasquez CO2 [Moles/Vol] 22.5 mmol/L Normal 21.0-32.0 [facility] Comment on above: Performed By: #### U JUAN F, LDH, CMP #### [facility] [address] [address] [address] Elda Velasquez Creatinine [Mass/Vol] 0.72 mg/dL Normal 0.55-1.02 [facility] Comment on above: Performed By: #### U JUAN F, LDH, CMP #### [facility] [address] [address] [address] Elda Velasquez EGFR-AF MOLDOVAN >60 Normal >=60 [facility] Comment on above: Performed By: #### U JUAN F, LDH, CMP #### [facility] [address] [address] [address] Elda Velasquez EGFR-NON AF MOLDOVAN >60 Normal >=60 [facility] Comment on above: Performed By: #### U JUAN F, LDH, CMP #### [facility] [address] [address] [address] Elda Velasquez Globulin (S) [Mass/Vol] 3.7 g/dL Normal [facility] Comment on above: Performed By: #### U JUAN F, LDH, CMP #### [facility] [address] [address] [address] Elda Velasquez Glucose [Mass/Vol] 135 mg/dL Critically high 74-106 [facility] Comment on above: Performed By: #### U JUAN F, LDH, CMP #### [facility] [address] [address] [address] Elda Velasquez Potassium [Moles/Vol] 3.8 mmol/L Normal 3.5-5.1 [facility] Comment on above: Performed By: #### U JUAN F, LDH, CMP #### [facility] [address] [address] [address] Elda Velasquez Protein [Mass/Vol] 6.0 g/dL Critically low 6.4-8.2 [facility] Comment on above: Performed By: #### U JUAN F, LDH, CMP #### [facility] [address] [place] [address] Dr. Elda Velasquez Sodium [Moles/Vol] 138 mmol/L Normal 136-145 [facility] Comment on above: Performed By: #### U JUAN F, LDH, CMP #### [facility] [address] [place] [address] Dr. Elda Velasquez Urea nitrogen [Mass/Vol] 6.0 mg/dL Critically low 7.0-18.0 [facility] Comment on above: Performed By: #### U JUAN F, LDH, CMP #### [facility] [address] [place] [address] Dr. Elda Velasquez Urea nitrogen/Creatinine [Mass ratio] 8.3 mg/mg Normal [facility] Comment on above: Performed By: #### U JUAN F, LDH, CMP #### [facility] [address] [place] [address] Dr. Elda Velasquez UA (CLEAN/CATCH) GOVERNMENT TEACHER/MICRO I F IND.on 05-24-2022 Bilirubin Ql (U) Negative Normal NEGATIVE [facility] Comment on above: Performed By: #### U RCX #### [facility] [address] [place] [address] Dr. Elda Velasquez Clarity (U) CLEAR Normal CLEAR [facility] Comment on above: Performed By: #### U RCX #### [facility] [address] [place] [address] Dr. Elda Velasquez Color (U) LT. YELLOW Normal YELLOW [facility] Comment on above: Performed By: #### U RCX #### [facility] [address] [place] [address] Dr. Elda Velasquez Glucose Ql (U) Negative Normal NEGATIVE [facility] Comment on above: Performed By: #### U RCX #### [facility] [address] [address] [address] Elda Velasquez Hemoglobin Ql (U) Negative Normal NEGATIVE [facility] Comment on above: Performed By: #### U RCX #### [facility] [address] [address] [address] Elda Velasquez Ketones Ql (U) Negative Normal NEGATIVE [facility] Comment on above: Performed By: #### U RCX #### [facility] [address] [address] [address] Elda Velasquez LEUKOCYTES Negative Normal NEGATIVE [facility] Comment on above: Performed By: #### U RCX #### [facility] [address] [address] [address] Elda Velasquez Nitrite Ql (U) Negative Normal NEGATIVE [facility] Comment on above: Performed By: #### U RCX #### [facility] [address] [address] [address] Elda Velasquez pH (U) 7.0 [pH] Normal 5-9 [facility] Comment on above: Performed By: #### U RCX #### [facility] [address] [place] [address] Dr. Elda Velasquez SPEC GRAVITY 1.010 Normal 1.005-<=1.025 [facility] Comment on above: Performed By: #### U RCX #### [facility] [address] [place] [address] Dr. Elda Velasquez UA PROTEIN Negative Normal NEGATIVE/ TRACE [facility] Comment on above: Performed By: #### U RCX #### [facility] [address] [address] [address] Elda Velasquez UR MICRO IND NOT INDICATED Normal [facility] Comment on above: Performed By: #### U RCX #### [facility] [address] [place] [address] Dr. Elda Velasquez Urobilinogen Qn (U) 0.2 {Caroline'U}/dL Normal 0.2 - 1. 0 [facility] Comment on above: Performed By: #### U RCX #### [facility] [address] [address] [address] Elda Velasquez URIC ACID SERUMon 05-24-2022 Urate [Mass/Vol] 3.8 mg/dL Normal 2.6-6.[address] [facility] Comment on above: Performed By: #### U JUAN F, LDH, CMP #### [facility] [address] [address] [address] Elda Velasquez US PREG CERVICAL LENGTHon US PREG CERVICAL LENGTH EXAMINATION: US PREG CERVICAL LENGTH HISTORY: Premature uterine contraction COMPARISON: No relevant comparison available. FINDINGS: position: Cephalic presentation, longitudinal lie Amniotic fluid volume: Subjectively normal Cervix: 4.5 cm], closed Heart rate: 144 bpm IMPRESSION: Closed cervix measuring 4.5 cm Electronically authenticated by: AARON DELACRUZ Date: 2022-05-24 11:52 Normal [facility] CULTURE URINEon 05-23-2022 CULTURE URINE Culture Observations : LIGHT GROWTH OF MIXED GENITAL J CARLOS. NO POTENTIAL PATHOGENS SEEN. Normal [facility] Comment on above: Performed By: #### U RCX #### [facility] [address] [address] [address] Elda Velasquez UA (CLEAN/CATCH) GOVERNMENT TEACHER/MICRO I F IND.on 05-23-2022 Bilirubin Ql (U) Negative Normal NEGATIVE [facility] Comment on above: Performed By: #### U RCX #### [facility] [address] [address] [address] Elda Velasquez Clarity (U) SL CLOUDY Abnormal CLEAR [facility] Comment on above: Performed By: #### U RCX #### [facility] [address] [address] [address] Elda Velasquez Color (U) LT. YELLOW Normal YELLOW [facility] Comment on above: Performed By: #### U RCX #### [facility] [address] [address] [address] Elda Velasquez Glucose Ql (U) Negative Normal NEGATIVE [facility] Comment on above: Performed By: #### U RCX #### [facility] [address] [address] [address] Elda Velasquez Hemoglobin Ql (U) TRACE-INTACT Abnormal NEGATIVE [facility] Comment on above: Performed By: #### U RCX #### [facility] [address] [address] [address] Elda Velasquez Ketones Ql (U) Negative Normal NEGATIVE [facility] Comment on above: Performed By: #### U RCX #### [facility] [address] [address] [address] Elda Velasquez LEUKOCYTES TRACE Abnormal NEGATIVE [facility] Comment on above: Performed By: #### U RCX #### [facility] [address] [place] [address] Dr. Elda Velasquez Nitrite Ql (U) Positive Abnormal NEGATIVE [facility] Comment on above: Performed By: #### U RCX #### [facility] [address] [place] [address] Dr. Elda Velasquez pH (U) 7.0 [pH] Normal 5-9 [facility] Comment on above: Performed By: #### U RCX #### [facility] [address] [place] [address] Dr. Elda Velasquez SPEC GRAVITY 1.015 Normal 1.005-<=1.025 [facility] Comment on above: Performed By: #### U RCX #### [facility] [address] [place] [address] Dr. Elda Velasquez UA PROTEIN Negative Normal NEGATIVE/ TRACE [facility] Comment on above: Performed By: #### U RCX #### [facility] [address] [place] [address] Dr. Elad Velasquez UR MICRO IND INDICATED Normal [facility] Comment on above: Performed By: #### U RCX #### [facility] [address] [place] [address] Dr. Elda Velasquez Urobilinogen Qn (U) 1.0 {Caroline'U}/dL Normal 0.2 - 1. 0 [facility] Comment on above: Performed By: #### U RCX #### [facility] [address] [place] [address] Dr. Elda Velasquez URINE MICROSCOPIC ONLYon BACTERIA SMALL Abnormal NONE SEEN [facility] Comment on above: Performed By: #### U RCX #### [facility] [address] [place] [address] Dr. Elda Velasquez Bacteria identified Cx Nom (U) INDICATED Normal [facility] Comment on above: Performed By: #### U RCX #### [facility] [address] [place] [address] Dr. Elda Velasquez CAST NONE SEEN Normal NONE SEEN [facility] Comment on above: Performed By: #### U RCX #### [facility] [address] [place] [address] Dr. Elda Velasquez Crystals LM Nom (Urine sed) NONE SEEN Normal NONE SEEN [facility] Comment on above: Performed By: #### U RCX #### [facility] [address] [place] [address] Dr. Elda Velasquez Epithelial cells LM Ql (Urine sed) MODERATE Abnormal NONE SEEN /RARE [facility] Comment on above: Performed By: #### U RCX #### [facility] [address] [place] [address] Dr. Elda Velasquez MUCOUS TRACE Abnormal NONE SEEN [facility] Comment on above: Performed By: #### U RCX #### [facility] [address] [place] [address] Dr. Elda Velasquez RBC 2-5 Abnormal 0-2 [facility] Comment on above: Performed By: #### U RCX #### [facility] [address] [place] [address] Dr. Elda Velasquez WBC 2-5 Abnormal NONE SEEN [facility] Comment on above: Performed By: #### U RCX #### [facility] [address] [place] [address] Dr. Elda Velasquez US PREG ANATOMY SINGLEon [...] by: PILAR DOBSON Date: 2022-05-04 16:28 Normal [facility] Microscopic UrinalysisOrdere d By: Pilar Gracia on 09-19-2019 - [employer] Work Phone: Amorphous, UA NOT REPORTED None [facility] Work Phone: Bacteria, UA 1+ Abnormal None [employer] Work Phone: Casts UA NOT REPORTED /LPF [employer] Work Phone: Crystals UA CALCIUM OXALATE Abnormal None /HPF [employer] [facility] Work Phone: Crystals UA 1+ Abnormal None /HPF [employer] Work Phone: Epithelial Cells UA 10 TO 20 /HPF [employer] Work Phone: Interpretation and review of laboratory results Abnormal [facility] Work Phone: Mucus, UA NOT REPORTED None [facility] Work Phone: Other Observations UA NOT REPORTED NOT REQ. [employer] Work Phone: RBC, UA 2 TO 5 [employer] [facility] Work Phone: Renal Epithelial, Urine NOT REPORTED 0 /HPF [facility] Work Phone: Trichomonas, UA NOT REPORTED None [facility] Work Phone: WBC, UA 0 TO 2 0 /HPF [facility] Work Phone: Yeast, UA NOT REPORTED None [employer] Work Phone: UrinalysisOrdered By: Pilar Garcia on 09-19-2019 Bilirubin Urine Negative NEGATIVE [facility] Work Phone: Color, UA YELLOW YELLOW [employer] Work Phone: Glucose, Ur Negative NEGATIVE [employer] Work Phone: Interpretation and review of laboratory results Abnormal [employer] Work Phone: Ketones Ql (U) Negative NEGATIVE [employer] Work Phone: Leukocyte esterase Test strip Ql (U) Negative NEGATIVE [employer] Work Phone: Nitrite, Urine Negative NEGATIVE [employer] Work Phone: pH, UA 6.0 [employer] Work Phone: Protein, UA TRACE Abnormal NEGATIVE [employer] Work Phone: Specific [place], UA 1.025 [employer] Work Phone: Turbidity UA HAZY Abnormal CLEAR [employer] Work Phone: Urinalysis Comments [employer] Work Phone: Urine Hgb TRACE Abnormal NEGATIVE [employer] Work Phone: Urobilinogen, Urine Normal Normal [facility] Work Phone: CBC Auto Differentialon 04-22 Basophils (Bld) [#/Vol] 0.00 10*3/uL [place] Basophils/100 WBC (Bld) 0 % 0 - 2 % [place] Differential Type YES [place] Eosinophils (Bld) [#/Vol] 0.10 10*3/uL [place] Eosinophils/100 WBC (Bld) 1 % 0 - 5 % [place] Erythrocyte distribution width (RBC) [Ratio] 13.6 % 12.1 - 15.2 % [place] Hematocrit (Bld) [Volume fraction] 37.7 % 36 - 46 % [place] Hemoglobin (Bld) [Mass/Vol] 12.8 g/dL 12 - 16 g/dL [place] Interpretation and review of laboratory results Abnormal [place] Lymphocytes (Bld) [#/Vol] 1.90 10*3/uL [place] Lymphocytes/100 WBC (Bld) 20 % 15 - 40 % [place] MCH (RBC) [Entitic mass] 29.1 pg 26 - 34 pg [place] MCHC (RBC) [Mass/Vol] 34.0 g/dL 31 - 37 g/dL [place] MCV (RBC) [Entitic vol] 85.7 fL 80 - 100 fL [place] Monocytes (Bld) [#/Vol] 0.40 10*3/uL [place] Monocytes/100 WBC (Bld) 5 % 4 - 8 % [place] Platelet mean volume (Bld) [Entitic vol] NOT REPORTED 6 - 12 fL [place], [place] Platelets (Bld) [#/Vol] NOT REPORTED [place] Platelets (Bld) [#/Vol] 378 10*3/uL [place] RBC (Bld) [#/Vol] 4.40 10*6/uL 4 - 5.2 m/uL [place], [place] RBC morphology finding Nom (Bld) NOT REPORTED [place] Segmented neutrophils/100 WBC (Bld) 74 % 47 - 75 % [place] Segs Absolute 7.20 High [place] WBC (Bld) [#/Vol] NOT REPORTED per 100 WBC [place] WBC (Bld) [#/Vol] 9.7 10*3/uL [place] WBC Morphology NOT REPORTED [place] Comprehensive Metabolic Pane l w/ Reflex to MGon 05-06-2019 Albumin [Mass/Vol] 3.9 g/dL 3.5 - 5.2 g/dL [place] Albumin/Globulin [Mass ratio] NOT REPORTED [place] ALP [Catalytic activity/Vol] 84 U/L 35 - 104 U/L [place] ALT [Catalytic activity/Vol] 14 U/L 5 - 33 U/L [place] Anion gap [Moles/Vol] 13 mmol/L 9 - 17 mmol/L [place] AST [Catalytic activity/Vol] 14 U/L <32 [place] Bilirubin Ql (U) 0.34 mg/dL 0.3 - 1.2 mg/dL [place] Bun/Cre Ratio 16 [place] Calcium [Mass/Vol] 9.6 mg/dL 8.6 - 10. 4 mg/dL [place] Chloride [Moles/Vol] 102 mmol/L 98 - 10 7 mmol/L [place] CO2 [Moles/Vol] 23 mmol/L 20 - 31 mmol/L [place] Creatinine [Mass/Vol] 0.61 mg/dL 0.5 - 0.9 mg/dL [place] GFR >60 >60 mL/min [place] GFR Non- >60 >60 mL/min [place] GFR/1.73 sq M predicted among non-blacks MDRD (S/P/Bld) [Vol rate/Area] NOT REPORTED [place] GFR/1.73 sq M predicted among non-blacks MDRD (S/P/Bld) [Vol rate/Area] [place] Comment on above: Average GFR for 20-2 9 years old: 116 mL/min/1.73sq m Chronic Kidney Disease: <60 mL/min/1.73sq m Kidney failure: <15 mL/min/1.73sq m eGFR calculated using average adult body mass. Additional eGFR calculator available at: http://www.Farman/multiple_crcl_2012.htm Glucose [Mass/Vol] 101 mg/dL High 70 - 99 mg/dL [place], [place] Interpretation and review of laboratory results Abnormal [place] Potassium [Moles/Vol] 4.2 mmol/L 3.7 - 5.3 mmol/L [place] Protein [Mass/Vol] 6.8 g/dL 6.4 - 8.3 g/dL [place] Sodium [Moles/Vol] 138 mmol/L 135 - 144 mmol/L [place] Urea nitrogen [Mass/Vol] 10 mg/dL 6 - 20 mg/dL [place] Otheron 05-06-2019 Immature granulocytes (Bld) [#/Vol] NOT REPORTED 0 % [place] Sedimentation Rateon 019 Sed Rate 23 mm 0 - 30 mm [place] Strep Screen Group A Throato n 05-06-2019 S. pyogenes Ag IA Ql (Unsp spec) Rapid Strep A negative. A negative Rapid Group A Strep Screen result does not rule out the possibility of Group A Streptococci in the specimen. A Group A Strep DNA test is available upon request. [place] Special Requests NOT REPORTED [place] Specimen Description .THROAT [place] Urinalysis, reflex to micros copicon 05-06-2019 Bilirubin Urine Negative NEGATIVE [facility] [place] [place] Color, UA YELLOW YELLOW [place] Glucose, Ur Negative NEGATIVE [place] Ketones Ql (U) Negative NEGATIVE [place] Leukocyte esterase Test strip Ql (U) Negative NEGATIVE [facility] [place], [place] Nitrite, Urine Negative NEGATIVE [facility] [place], [place] pH, UA 7.0 [facility], [place] Protein (U) [Mass/Vol] Negative NEGATIVE [facility] [place], [place] Specific [place], UA 1.015 [facility] [place], [place] Turbidity UA CLEAR CLEAR [facility], [place] Urinalysis Comments [facility], [place] Urine Hgb Negative NEGATIVE [facility] [place], [place] Urobilinogen, Urine Normal Normal [facility], [place] Vital Signs Date Time Vital Sign Value Performing Clinician Olei pavan 03-07-2023 08:52-0400 Body height 162.6 cm Jeronimo Fofana DO Work Phone: [facility] [employer] 03-07-2023 08:52-0400 Body mass index (BMI) [Ratio] 41.2 kg/m2 Jeronimo Fofana DO Work Phone: [facility] [employer] 03-07-2023 08:52-0400 Body weight 108.86 kg Jeronimo [facility]ofana DO [facility] 03-07-2023 08:52-0400 Diastolic blood pressure 84 mm[Hg] Jeronimo [facility]ofana DO Work [facility] 03-07-2023 08:52-0400 Respiratory rate 20 /min Jeronimo Fofana DO Work [facility] 03-07-2023 08:52-0400 SaO2% (BldA) [Mass fraction] 98 % Jeronimo Fofana DO Work [facility] 03-07-2023 08:52-0400 Systolic blood pressure 101 mm[Hg] Jeronimo Fofana DO Work [facility] 03-07-2023 08:51-0400 Body temperature 98.29 [degF] Jeronimo Fofana DO Work [facility] 03-07-2023 08:51-0400 Heart rate 96 /min Jeronimo Fofana DO Work Phone: [facility] 11-14-2022 08:08-0400 Body height 160 cm Manoj Flores MD Work Phone: [employer] 11-14-2022 08:08-0400 Body mass index (BMI) [Ratio] 41.98 kg/m2 Manoj Flores MD Work Phone: [employer] 11-14-2022 08:08-0400 Body temperature 98.2 [degF] Manoj Flores MD Work Phone: [employer] 11-14-2022 08:08-0400 Body weight 107.5 kg Manoj Flores MD Work Phone: [employer] 11-14-2022 08:08-0400 Diastolic blood pressure 95 mm[Hg] Manoj Flores MD Work Phone: [employer] 11-14-2022 08:08-0400 Heart rate 87 /min Manoj Flores MD Work Phone: [employer] 11-14-2022 08:08-0400 Respiratory rate 20 /min Manoj Flores MD Work Phone: [employer] 11-14-2022 08:08-0400 SaO2% (BldA) [Mass fraction] 98 % Manoj Flores MD Work Phone: [employer] 11-14-2022 08:08-0400 Systolic blood pressure 141 mm[Hg] Manoj Flores MD Work Phone: [employer] 05-29-2022 12:29-0400 Diastolic blood pressure 80 mm[Hg] Tommy Cherry MD Work Phone: [employer] 05-29-2022 12:29-0400 Heart rate 94 /min Tommy Cherry MD Work Phone: [employer] 05-29-2022 12:29-0400 Respiratory rate 16 /min Tommy Cherry MD Work Phone: [employer] 05-29-2022 12:29-0400 Systolic blood pressure 132 mm[Hg] Tommy Cherry MD Work Phone: [employer] 05-29-2022 08:52-0400 Body temperature 98.01 [degF] Tommy Cherry MD Work Phone: [facility] [employer] 05-29-2022 08:52-0400 SaO2% (BldA) [Mass fraction] 98 % Tommy Cherry MD Work Phone: [facility] [employer] 09-19-2019 17:05-0500 Diastolic blood pressure 76 mm[Hg] Pilar Garcia MD Work Phone: [employer] Work Phone: 09-19-2019 17:05-0500 Heart rate 88 /min Pilar Garcia MD Work Phone: [employer] Work Phone: 09-19-2019 17:05-0500 Respiratory rate 20 /min Pilar Garcia MD Work Phone: [employer] Work Phone: 09-19-2019 17:05-0500 SaO2% (BldA) [Mass fraction] 99 % Pilar Garcia MD Work Phone: [employer] Work Phone: 09-19-2019 17:05-0500 Systolic blood pressure 136 mm[Hg] Pilar Garcia MD Work Phone: [employer] Work Phone: 09-19-2019 15:21-0500 Body mass index (BMI) [Ratio] 41.54 kg/m2 Pilar Garcia MD Work Phone: [employer] Work Phone: 09-19-2019 15:21-0500 Body temperature 98.01 [degF] Pilar Garcia MD Work Phone: [employer] Work Phone: 09-19-2019 15:21-0500 Body weight 109.77 kg Pilar Garcia MD Work Phone: [employer] Work Phone: 05-06-2019 07:59-0400 BMI (Body Mass Index) 38.45 kg/m2 Hollie Flood [facility], [place] 05-06-2019 07:59-0400 Body Temperature 98.49 [degF] Hollie Flood [facility], [place] 05-06-2019 07:59-0400 Body weight 101.61 kg [facility] , [place] 05-06-2019 07:59-0400 BP Diastolic 66 mm[Hg] [facility] , [place] 05-06-2019 07:59-0400 BP Systolic 126 mm[Hg] [facility] , [place] 05-06-2019 07:59-0400 Pulse (Heart Rate) 83 /min Hollie Flood [place], [place] 05-06-2019 07:59-0400 Pulse Oximetry 97 % [facility] [place] 05-06-2019 07:59-0400 Respiratory Rate 20 /min Hollie Flood [place], [place] Encounters Encounter Date Encounter Type Care Provider Facility Start: 08-17-2023 End: 08-17-2023 ambulatory KENIA PIEDRA Not Available Start: 03-13-2023 End: 03-17-2023 Evaluation and management of inpatient MANOJ MIKE Facility:[facility] Start: 03-12-2023 End: 03-13-2023 Emergency department patient visit [facility] Start: 03-07-2023 Emergency department patient visit [facility] Start: 03-07-2023 End: 03-07-2023 Emergency department patient visit Jeronimo Fofana DO Work Phone: [facility] ED Comment on above: Left flank pain (Monserrat almas Dx) Start: 01-03-2023 End: 01-04-[address] BLAS RICKS . Facility: Start: 11-14-2022 End: 11-14-2022 Emergency department patient visit [facility] Start: 11-14-2022 End: 11-14-2022 Emergency department patient visit Manoj Flores MD Work Phone: [facility] ED Comment on above: Acute pharyngitis, u nspecified etiology (Primary Dx) Start: 08-09-2022 End: 08-09-2022 Emergency department patient visit RACQUEL SIMPSON [facility] Start: 05-25-2022 End: 05-29-2022 Evaluation and management of inpatient RACQUEL SIMPSON [facility] Start: 05-25-2022 End: 05-29-2022 Evaluation and [...] End: 06-08-2021 Subsequent hospital visit by physician [facility] Covid19 Pat Screening Schedule MW PRE ADMIT Comment on above: Sinus congestion; Cough; Fever, unspecified fever cause Start: 09-30-2020 End: 09-30-2020 Subsequent hospital visit by physician Racquel Simpson [facility] Laboratory Comment on above: Suspected COVID-19 v irus infection Start: 07-30-2020 End: 07-30-2020 Subsequent hospital visit by physician Racquel Simpson [facility] Laboratory Comment on above: Suspected COVID-19 v irus infection Start: 09-19-2019 End: 09-19-2019 Emergency department patient visit Pilar Garcia MD Work Phone: [facility] ED Comment on above: Lower abdominal pain (Primary Dx); Complication of in second trimester Start: 05-06-2019 End: 05-06-2019 Emergency department patient visit Hollie Pinzon Chela Work Phone: [facility] ED Comment on above: Strain of lumbar reg ion, initial encounter (Primary Dx); Morning sickness; Acute pharyngitis, unspecified etiology Procedures Date Procedure Procedure Detail Performing Clinician Start: 03-15-2023 Antibody screen MANOJ SEPULVEDA Comment on above: Order Comment: Speci men Type: BLOOD SPECIMENOrdering Facility: [facility] Address: [address] [place] [address] [place] [phone] Performed By: #### T SPN ####CC MAIN BLOOD BANKCLIA [id number] [facility] [id number] [place] Start: 03-07-2023 Comprehensive metabo lic panel Jeronimo Vega Ernestina DO Work Phone: Start: 03-07-2023 Urinalysis microscopic only Jeronimo Ferarri Ernestina DO Work Phone: Start: 03-07-2023 Urnls [...] Author Start: 06-01-2023 Depression Screen Depression Screen [facility] Start: 03-22-2023 Influenza vaccination Flu vaccine (# 1) [facility] [employer] Start: 03-08-2023 End: 03-07-2024 US RETROPERITONEAL COMPLETE US RETROPERITONEAL COMPLETE Imaging STAT Left flank pain Expected: 03/08/2023, Expires: 03/07/2024 [facility] Comment on above: Expected: 03/08/2023 , Expires: 03/07/2024 Start: 2022 Screening for malign ant neoplasm of cervix [facility] Start: 06-01-2022 End: 06-01-2022 ambulatory 06/01/2022 Visit Obstetrics and Gynecology Kesha Pritchett, DO [address] [place] [address] [facility] Broker In Charge [place] Start: 03-22-2022 Influenza vaccination Flu vaccine (# 1) [facility] Start: 04-22-2021 Influenza vaccination Flu vaccine (# 1) [facility] Work Phone: Start: 04-22-2020 Influenza vaccination Flu vaccine (# 1) [place] Start: 04-22-2019 Influenza vaccination Flu vaccine (# 1) [place] Start: 2013 Cervical cancer screen Cervical canc er screen [place] Start: 2013 Screening for malign ant neoplasm of cervix [facility] Start: 2011 DTaP/Tdap/Td vaccine (1 - Tdap) DTaP/Tdap/Td vaccine (1 - Tdap) [facility] Start: 2010 Hepatitis C screening Hepatitis C sc reen [facility] Start: 2007 HIV screen HIV screen [place] Start: 2007 HIV screening [facility] screen [facility] Start: 2007 HPV vaccine (1 - Fem angelica 3-dose series) HPV vaccine (1 - Female 3-dose series) [place] Start: 2005 Varicella Vaccine (1 of 2 - 13+ 2-dose series) Varicella Vaccine (1 of 2 - 13+ 2-dose series) [place] Start: 2004 COVID-19 Vaccine (1) COVID-19 Vaccin e (1) [facility] [employer] Phone: Start: 2004 Depression Screen Depression Screen [facility] Start: 2003 DTaP/Tdap/Td vaccine (1 - Tdap) DTaP/Tdap/Td vaccine (1 - Tdap) [facility] [employer] Phone: Start: 2003 DTaP/Tdap/Td vaccine (5 - Tdap) DTaP/Tdap/Td vaccine (5 - Tdap) [facility] Start: 1993 Varicella vaccine (1 of 2 - 2-dose childhood series) Varicella vaccine (1 of 2 - 2-dose childhood series) [facility] Start: 02-06-1993 COVID-19 Vaccine (#1) COVID-19 Vacci ne (#1) [facility] Start: 1992 Hepatitis C screening Hepatitis C sc armando [place] End: 09-30-2020 COVID-19 COVID-19 Lab Routine Suspected COVID-19 virus infection 1 Occurrences starting 09/30/2020 until 09/30/2020 [place] Comment on above: 1 Occurrences starti ng 09/30/2020 until 09/30/2020 COVID-19 [place] End: 06-08-2021 COVID-19 COVID-19 Lab Routine Sinus congestion Cough Fever, unspecified fever cause 1 Occurrences starting 06/08/2021 until 06/08/2021 [facility]: Comment on above: 1 Occurrences starti ng 06/08/2021 until 06/08/2021 End: 07-30-2020 Covid-19 Ambulatory Covid-19 Ambulatory Lab Routine Suspected Covid-19 Virus Infection 1 Occurrences starting 07/30/2020 until 07/30/2020 [place] Comment on above: 1 Occurrences starti ng 07/30/2020 until 07/30/2020 Covid-19 Ambulatory Covid-19 Amb ulatory Lab Routine Suspected COVID-19 virus infection 07/30/2020 10:34 AM EST [place] End: 05-06-2019 CRP [Mass/Vol] C-reactive protein Lab Routine One Time for 1 Occurrences starting 05/06/2019 until 05/06/2019 [place] Comment on above: One Time for 1 Occur rences starting 05/06/2019 until 05/06/2019 CRP [Mass/Vol] C-reactive prote in Lab STAT 05/06/2019 8:32 AM EDT [place] End: 05-29-2022 DRUG SCREEN MULTI URINE DRUG SCREEN MULTI URINE Lab Add-On One Time for 1 Occurrences starting 05/29/2022 until 05/29/2022 [facility] [employer] Phone: Comment on above: One Time for 1 Occur rences starting 05/29/2022 until 05/29/2022 Oxygen therapy [M[facility] [place]] Initiate Oxygen Therapy Protocol Respiratory Care Routine Daily until discontinued starting 05/25/2022 [email or web address] Phone: Comment on above: Daily until disconti nued starting 05/25/2022 Spirometry panel Incentive kavitha metry Respiratory Care Routine Every 2hr while awake until discontinued starting 05/25/2022 [employer] Work Phone: Comment on above: Every 2hr while awak e until discontinued starting 05/25/2022 End: 03-07-2023 US RETROPERITONEAL COMPLETE US RETROPERITONEAL COMPLETE Imaging Routine Once for 1 Occurrences starting 03/07/2023 until 03/07/2023 [employer] Work Phone: Comment on above: Once for 1 Occurrenc es starting 03/07/2023 until 03/07/2023 Immunizations Immunization Date Immunization Notes Care Provider Abner [email or web address] 06-01-2022 influenza, injectabl e, quadrivalent, preservative free Manoj Flores MD Work Phone: [employer] 05-29-2022 measles, mumps and rubella virus vaccine Tommy Cherry MD Work Phone: [employer] 05-25-2022 diphtheria, tetanus toxoids and acellular pertussis vaccine, unspecified formulation Tommy Cherry MD Work Phone: [employer] Work Phone: 07-21-2018 influenza, injectabl e, quadrivalent, preservative free Manoj Flores MD Work Phone: [employer] Work Phone: 05-18-2017 influenza, injectabl e, quadrivalent, preservative free Manoj Flores MD Work Phone: [employer] Work Phone: 05-25-2016 influenza virus vaccine, unspecified formulation Manoj Flores MD Work Phone: [employer] Work Phone: 05-27-2015 influenza virus vaccine, whole virus Manoj Flores MD Work Phone: [employer] Work Phone: 05-22-2015 influenza virus vaccine, unspecified formulation Manoj Flores MD Work Phone: [facility] [employer] Work Phone: 06-30-2014 influenza virus vaccine, unspecified formulation Manoj Flores MD Work Phone: [facility] [employer] Work Phone: 01-18-2014 tuberculin skin test ; purified protein derivative solution, intradermal [facility]ie York [facility] [employer] 06-15-2013 influenza virus vaccine, whole virus Manoj Flores MD Work Phone: [facility] Work Phone: 05-19-2011 influenza virus vaccine, unspecified formulation Manoj Flores MD Work Phone: [facility] Work Phone: 04-14-2005 measles, mumps and rubella virus vaccine Manoj Flores MD Work Phone: [facility] [employer] [facility] Work Phone: 11-25-1993 diphtheria, tetanus toxoids and acellular pertussis vaccine, unspecified formulation Manoj Flores MD Work Phone: [facility] Work Phone: 11-25-1993 haemophilus influenz ae type b vaccine, conjugate unspecified formulation Manoj Flores MD Work Phone: [facility] [facility] Work Phone: 11-25-1993 hepatitis B vaccine, pediatric or pediatric/adolescent dosage Manoj Flores MD Work Phone: [facility] [employer] [facility] Work Phone: 11-25-1993 measles, mumps and rubella virus vaccine Manoj Flores MD Work Phone: [facility] [employer] [facility] Work Phone: 11-25-1993 trivalent poliovirus vaccine, live, oral Manoj Flores MD Work Phone: [employer] Work Phone: 03-12-1993 diphtheria, tetanus toxoids and pertussis vaccine Manoj Flores MD Work Phone: [employer] Work Phone: 03-12-1993 haemophilus influenz ae type b vaccine, conjugate unspecified formulation Manoj Flores MD Work Phone: [employer] Work Phone: 03-12-1993 hepatitis B vaccine, pediatric or pediatric/adolescent dosage Manoj Flores MD Work Phone: [employer] Work Phone: 1992 diphtheria, tetanus toxoids and pertussis vaccine Manoj Flores MD Work Phone: [employer] Work Phone: 1992 haemophilus influenz ae type b vaccine, conjugate unspecified formulation Manoj Flores MD Work Phone: [employer] Work Phone: 1992 hepatitis B vaccine, pediatric or pediatric/adolescent dosage Manoj Flores MD Work Phone: [employer] Work Phone: 1992 trivalent poliovirus vaccine, live, oral Manoj Flores MD Work Phone: [employer] Work Phone: 1992 diphtheria, tetanus toxoids and pertussis vaccine Manoj Flores MD Work Phone: [employer] Work Phone: 1992 haemophilus influenz ae type b vaccine, conjugate unspecified formulation Manoj Flores MD Work Phone: [employer] Work Phone: 1992 trivalent poliovirus vaccine, live, oral Manoj Flores MD Work Phone: [employer] Work Phone: Payers Date Payer Category Payer Unknown [employer] [place]ICA[employer] xxxxxxxxxxx 2015-Present [phone] CLAIMS DEPARTMENT [address] [place] [address] xxxxxxxxxxx [id number] 1992 Unknown [id number] 1992 Unknown [id number] 1992 Unknown [id number] 1992 Unknown [id number] 1992 Unknown [id number] 1992 Unknown [id number] 1992 Unknown [id number] 1992 Unknown [id number] 1992 Unknown [id number] 1992 Unknown [id number] 1959 Self-pay 1959 Unknown [id number] 1959 Unknown [id number] Social History Date Type Detail Facility Start: 07-30-2020 End: 03-07-2023 Tobacco smoking status MTIS Former smoker [facility] [place] End: 02-15-2022 History of tobacco use Cigarette Smoker [facility] [place], [place] Start: 07-30-2020 End: 03-07-2023 Cigarettes smoked current (pack per day) - [facility]orted [facility] [employer] [place] Start: 07-30-2020 End: 03-07-2023 Tobacco use and exposure Never used [employer] [facility] [place] Start: 07-30-2020 End: 03-07-2023 Alcohol intake Current non-drinker of alcohol (finding) [employer] Phone: Start: 07-14-2015 Alcohol Comment less than once a wee k [facility] [place] [place] Start: 1990 Sex Assigned At Not on file [facility] [place] Start: 05-06-2019 Alcohol intake No [facility] [place] [place] End: 02-15-2022 History of tobacco use Current smoker [email or web address] Phone: Start: 11-04-2022 End: 11-14-2022 Exposure to SARS-CoV-2 (event) Not sure [email or web address] Phone: Start: 03-07-2023 History SDOH Alcohol Frequency 1 [employer] Start: 03-07-2023 History SDOH Alcohol Std Drinks 0 [employer] Clinical Notes 09-19-2019 to 03-17-2023 Discharge InstructionsAttachmentsTralarry Cherry MD - 05/29/2022 2:59 AM Ben Armas MD - 05/28/2022 2:43 AM Ash Rubio DO - 05/27/2022 12:19 AM EDTDischaaustin Instructions Note Date & Type Note Facility 03-17-2023 Note HNO ID: [id number] Author: Domonique Kaplan Service: ? Author Type: [employer] Leader Type: Plan of Care Filed: 03/17/2023 2:18 PM Note Text: PHARMACY BEDSIDE DELIVERY SERVICE Patient Name: Qian Clements The marked outpatient medications were Filled at: [facility] and delivered to the patient's bedside [...] your Primary Care Provider. Domonique Kaplan PAGER: [phone] March 17, 2023 2:17 PM [facility] 03-17-2023 Note HNO ID: [id number] Author: Kristin Wang RPh Service: Pharmacy Author [...] Wang RPh March 17, 2023 12:41 PM [id number] Medication List START taking these medications amoxicillin-clavulanic [...] Your Medications These medications were sent to [facility] [address] [place] [address] Hours: Tuesday-Tuesday 7am-8pm, Tuesday, Tuesday and Holidays 9am-5pm amoxicillin-clavulanic acid 875-125 mg per tablet multivitamin 28 mg iron- 800 mcg tab(s) [facility] 03-16-2023 Note HNO ID: [id number] Author: Manoj Ramos MD Service: General Internal Medicine Author Type: Physician Type: Progress Notes Filed: 03/16/2023 5:27 PM Note Text: Internal Medicine [place] progress note After 5 PM on weekdays [...] Plan: - Consider (more content not included)... [facility] 03-15-2023 Note HNO ID: [id number] Author: Domonique Kaplan Service: ? Author Type: [employer] Leader Type: Plan of Care Filed: 03/15/2023 12:18 PM Note Text: Insurance investigation completed Patient has active prescription insurance: Yes - Patient's insurance is in-network with [facility] Insurance loaded into [facility]: Yes Test claim was completed to verify insurance is active: Successful Any questions, please contact your medication precision farming coordinator. Pager #: [phone] [facility] 03-15-2023 Note HNO ID: [id number] Author: Manoj Ramos MD Service: General Internal Medicine Author Type: Physician Type: Progress Notes Filed: 03/15/2023 2:05 PM Note Text: Internal Medicine [place] progress note After 5 PM on weekdays [...] infection first. Ferritin (more content not included)... [facility] 03-14-2023 Note HNO ID: [id number] Author: Robyn Borrego RN Service: ? Author Type: Registered Nurse Type: Nursing Progress Note Filed: 03/14/2023 6:24 PM Note Text: 1814 Patient staes she is having spotting. Jeremiah Cantu notified and states to monitor. S. Salima WINKLER [facility] 03-14-2023 Note HNO ID: [id number] Author: Kristin Wang kelsie Service: Pharmacy Author Type: Pharmacist Type: Plan of Care Filed: 03/14/2023 12:02 PM Note Text: PHARMACY MEDICATION REVIEW Patient Name: Qian Clements : 1990 The following medications were updated within the FRANKFURTER INSPECTOR medication list: Medications ADDED to [employer] medication list vitamin 1 tablet PO daily Acetaminophen 650 mg PO Q6hr prn pain, fever Ondansetron 4 mg PO q6hr prn N/V Medications CHANGED on [employer] INSPECTOR medication list none Medications REMOVED from [employer] medication list Pulmicort Flexhaler Colchicine Omeprazole Prednisone Additional comments: patient confirmed stopped taking dextroamphetamine-amphetamine. The below information represents the best possible medication history: Yes Medication history completed by: Pharmacist: Kristin Wang RPh Source of history: Patient: Reliability of source: Appears reliable, clearly identified: Medication name, Medication dose, Medication route, and Medication frequency and Pharmacy records: [facility] Medication nonadherence identified: No barriers noted Reconciliation completed: Yes Completed by: Kristin Wang PharmD Discussed with LIP, plans to add vitamin based on updated medication history Patient interested in Bedside Delivery Services or using OP Pharmacy at discharge? Unable to assess Preferred outpatient pharmacy: [facility] [address] [place] [id number] [address] [phone] Allergies: Ciprofloxacin Vomiting Codeine Vomiting Comment:Convulsions per [...] Facility-Administered Medications: None Kristin Wang RPh 03/14/2023 [id number] [facility] 03-14-2023 Note HNO ID: [id number] Author: Manoj Ramos MD Service: General Internal Medicine Author Type: Physician Type: Progress Notes Filed: 03/14/2023 3:07 PM Note Text: Internal Medicine [place] progress note After 5 PM on weekdays [...] 3 PM on weekends page Night Team [facility] STAFF PHYSICIAN NOTE OF PERSONAL INVOLVEMENT IN CARE I have reviewed the progress note obta (more content not included)... [facility] 03-13-2023 Note HNO ID: [id number] Author: Sabrina Castro MD Service: Gynecology Author Type: Resident Type: Plan of Care Filed: 03/13/2023 5:19 PM Note Text: Attestation signed by Pinky Rodriguez DO at 03/13/2023 6:04 PM Routine OB guidelines/recommendations as documented. 03/13/2023 6:04 PM Pinky Rodriguez DO SCALE ASSEMBLY SET UP WORKER Resident Plan of Care Note 05:13 PM Primary care paged SUPERVISOR INSPECTING regarding recommended imaging for nephrolithiasis in the setting of 1st trimester of . Advised team to begin with renal bladder ultrasound. Advised team to avoid abdominal CT unless absolutely necessary. General guidelines are listed below. Sabrina Castro MD SCALE ASSEMBLY SET UP WORKER Resident, PGY-3 General guidelines In general, goals [...] for use in acute pain. Avoid NSAIDs. [facility] narcotic exposure can lead to maternal and [...] - Could use if needed Avoid Tramadolol/Barbuturites. [facility] 03-13-2023 Note HNO ID: [id number] Author: Maira Egan RT(R) Service: Radiology Author [...] RT Angel(R) March 13, 2023 1:06 PM [facility] 03-07-2023 Hospital Discharge instructions Jeronimo Fofana DO - 03/07/2023 9:43 AM EDT Continue antibiotic as presccribed. Continue Tylenol as needed for pain. Follow-up with your OB for re evaluation. The following attachments cannot be sent through Care Everywhere.Flank Pain (Swedish)documented in this encounter [facility] 05-29-2022 History of Present illness [...] with some intermittent elevated BP - Female in NICU - Encourage ambulation and use [...] - EBL 1000 - S/p TXA and RI cytotec - Bleeding stable, vitals stable - [...] patient Attending Physician: Dr. Dilip Curiel, DO Broker In Charge Resident 05/29/2022, 2:59 AM Attending Physician Statement [...] patient Attending Physician: Dr. Pawel Cherry, DO Broker In Charge Resident 05/28/2022, 2:43 AM Date: 05/28/2022 Time: [...] with patient Attending Physician: Dr. Joanne Cherry, Broker In Charge Resident 05/27/2022, 12:19 AM Date: 05/27/2022 Time: [...] Will continue to monitor Abdi Gómez MD Broker In Charge Resident 05/26/2022, 2:52 PM Resident Interval Magnesium [...] Next magnote @ 1430 Abdi Gómez MD Broker In Charge Resident 05/26/2022, 10:26 AM POST OPERATIVE DAY [...] S/p TXA x1 and Cytotec 1000 mg RI Asthma - Albuterol inhaler PRN Depression/ADHD - [...] patient Attending Physician: Dr. Celestine Crawley DO Broker In Charge Resident 05/26/2022, 4:14 AM Resident Interval Magnesium [...] per EMS - Next mag note @ 1960 - Plan to d/c abrams at this time Savana Crawley DO Broker In Charge Resident 05/26/2022, 4:10 AM Resident Interval Magnesium [...] Will continue to monitor Savana Crawley DO Broker In Charge Resident 05/26/2022, 12:30 AM Resident Interval Magnesium [...] Will continue to monitor Savana Crawley DO Broker In Charge Resident 05/25/2022, 7:25 PM [place] [facility] Shift date: 05/25/2022 Shift day: Tuesday Shift # 1 Room # 0703/0703-01 Name: Qian Clements Latter-Day: Place of episcopalian: Referral: [facility] Alert Admit Date & Time: 05/25/2022 2:31 PM Assessment: Qian Clements is a 31 y.o. female, 32 weeks , who was brought from a hospital in [place]. Per EMS, patient had very high BP and had a seizure on the way here. The OB explained that they would have to deliver the baby. Upon entering the room pattern chart writer observes patient was tearful. She said she had no needs from philosophy specialist at that time. Mother and family members arrived shortly and appeared concerned. Administrative Medical Director was unable to assess them after walking them to the pt's room. Intervention: Data Entry Machine Operator introduced self and title as philosophy specialist. Administrative Medical Director provided a supportive presence and words of comfort. Outcome: Pt appeared comforted by philosophy specialist's presence. Plan: Chaplains will remain available to offer spiritual and emotional support as needed. . Spiritual Care Department [facility] [phone] 05/25/22 1504 Encounter Summary Service Provided For: Patient;Family Referral/Consult From: Multi-disciplinary team Support System Parent;Family members Last Encounter 05/25/22 Complexity of Encounter Moderate Begin Time 1430 End Time 1450 Total Time Calculated 20 min Crisis Type ([facility] Alert) Assessment/Intervention/Outcome Assessment Coping;Tearful Intervention Active listening;Explored/Affirmed feelings, thoughts, concerns Outcome Expressed feelings, needs, and concerns documented in this encounter [facility] [place] Work Phone: 05-25-2022 Hospital Discharge instructions Erin [...] your doctor if you can take an arrq-nlg-kfnfjri medicine. If you think your pain medicine [...] can you learn more? Go to [email or web address] and sign in to your Ideal Me account. Enter M806 in the Search Health Information box to learn more about Section: What to Expect at Home. If you do not have an account, please click on the Sign Up Now link. Current as of: October 14, 2021 Content Version: 13.4 The Smartphone Physical. Care instructions adapted under license by [employer]. If you have questions about a medical condition or this instruction, always ask your healthcare professional. The Smartphone Physical disclaims any warranty or liability for your [...] Call the Suicide and Crisis Lifeline at 276. Call 1-577-270-MGGY (). Text HOME to 874983 to access the Crisis Text Line. Consider [...] When should you call for help? Call 948 if: You feel you cannot stop from [...] Where can you learn more? Go to [email or web address] and sign in to your Ideal Me account. Enter Y765 in the Search Health Information box to learn more about Depression After Childbirth: Care Instructions. If you do not have an account, please click on the Sign Up Now link. Current as of: September 30, 2021 Content Version: 13.4 The Smartphone Physical. Care instructions adapted under license by [employer]. If you have questions about a medical condition or this instruction, always ask your healthcare professional. The Smart[employer] disclaims any warranty or liability for your [...] most return to normal levels over the group home. Take and record your blood pressure at [...] you have had preeclampsia, you have a hoxnva-txgn-yvayiww risk of heart disease, stroke, and kidney [...] Where can you learn more? Go to [email or web address] and sign in to your Ideal Me account. Enter Q718 in the Search Health Information box to learn more about Learning About Preeclampsia After Childbirth. If you do not have an account, please click on the Sign Up Now link. Current as of: October 14, 2021 Content Version: 13.4 The Smartphone Physical. Care instructions adapted under license by [employer]. If you have questions about a medical condition or this instruction, always ask your healthcare professional. The Smart[employer] Physical disclaims any warranty or liability for your use of this information. documented in this encounter [email or web address] Phone: 05-25-2022 Evaluation note Diagnosis PLTCS 05/25/22 F Apg Wt 4#15; PLTCS 05/25/22 F Apg 8/9 Wt 4#15- Primary delivery, without mention of indication, delivered, with or without mention of antepartum condition Eclampsia (G6) Other convulsions state Routine follow-up Postoperative state Other postprocedural status documented in this encounter [email or web address] Phone: [phone] Hospital Discharge instructions* Instructions* Pilar Garcia MD - 09/19/2019 Go immediately from here to the [facility] OB department to be evaluated by the OB nurse. Donot stop anywhere on the way. Do not eat or drink before getting there. * Attachments The following attachments cannot be sent through Care Everywhere. * : Abdominal Pain (Swedish) [facility] Phone: evaluation note* Diagnosis Sinus congestion Other diseases of nasal cavity and sinuses Cough Fever, unspecified fever cause documented in this encounter [facility] Phone: evaluation note* Diagnosis Lower abdominal pain- Primary Abdominal pain, other specified site Complication of in second trimester documented in this encounter [facility] Phone: evaluation note* Diagnosis Acute pharyngitis, unspecified etiology- Primary documented in this encounter [facility] [employer] Phone: evaluation note* Diagnosis Left flank pain- Primary Abdominal pain, unspecified site documented in this encounter [facility] Discharge instructions* Attachments The following attachments cannot be sent through Care Everywhere. * Sore Throat (Swedish) [facility] [employer] Phone: Assessments Diagnosis Suspected COVID-19 virus infection Diagnosis Strain of lumbar region, initial encounter- Primary Morning sickness Mild hyperemesis gravidarum, unspecified as to episode of care Acute pharyngitis, unspecified etiology Advance Directives No Advanced Directives Records FoundDocuments on File Type Date Recorded Patient Assistant Activities Director Expl anation ACP-Advance Directive ACP-Power of Drawbench Operator Latest Code Status on File Code Status Date Activated Date Inactivated Comments Full Code 08/15/2017 4:59 PM 08/15/2017 9:37 PM Full Code 07/14/2015 12:36 PM 07/14/2015 3:17 PM Full Code 07/14/2015 9:31 AM 07/14/2015 12:36 PM Documents on File Type Date Recorded Patient Assistant Activities Director Expl anation Advance Directives and Living Will Power of Drawbench Operator Latest Code Status on File Code Status [...] sent through Care Everywhere. * Sore Throat (Swedish) * : Morning Sickness (Swedish) * Back: Strain (Swedish) documented in this encounter Summary Purpose Family History No Family History Records FoundNo Family History Records FoundNo Family History Records FoundNo Family History Records FoundNo Family History Records FoundNo Family History Records Found Reason for Referral Specialty Diagnoses / Procedures Referred By Contac t Referred To Contact Radiology Diagnoses Left flank pain Procedures US RETROPERITONEAL COMPLETE Jeronimo Fofana, DO [address] [place] [address] Referral ID Status Reason Start Date Expiration Date Visits Re quested Visits Authorized [id number] Open 03/08/2023 03/07/2024 1 1 Additional Source [...] To Contact Diagnoses Eclampsia Tammy Cherry MD [address] [place] [address] [facility] [address] [place] [address] Referral ID Status Reason Start Date Expiration Date Visits Re quested Visits Authorized [id number] 1 1 Reason Comments Pharyngitis C/o sore [...] Interiano RN)1530 (Due - Provider: Ross Ashley [facility])2129 (Due - Provider: Ross Ashley RP) cephALEXin [...] Loss of IV access) 0900 (Due)2100 (Due) Hxwjipv-Igvfbg-Rqbay Pertussis (BOOSTRIX) injection 0.5 mL 0.5 mL, [...] Robyn Interiano RN)1256 (Given - Provider: Robyn Interiano RN) oxyCODONE (ROXICODONE) immediate release tablet 5 [...] Care Teams (unrecognized sec tion and content) Supervisor Train Operations Relationship Specialty Start Date End Date Racquel Simpson MD [address] [place] [address] PCP - General 04/22/16 Supervisor Train Operations Relationship Specialty Start Date End Date Racquel Simpson MD [address] [place] [address] PCP - General 04/22/16 Supervisor Train Operations Relationship Specialty Start Date End Date Racquel Simpson MD [address] [place] [address] PCP - General 04/22/16 INFORMATION SOURCE (unrecogn ized section and content) DATE CREATED AUTHOR 06/02/2022 [facility] DATE CREATED AUTHOR AUTHOR'S ORGANIZ ATION 01/04/2023 Li arrieta DATE CREATED AUTHOR AUTHOR'S ORGANIZ ATION 03/13/2023 [facility] Lak[employer]inder clayton DATE CREATED AUTHOR AUTHOR'S ORGANIZ ATION 03/18/2023 [facility] DATE CREATED AUTHOR AUTHOR'S ORGANIZ ATION 05/04/2023 [facility] DATE CREATED AUTHOR AUTHOR'S ORGANIZ ATION 08/19/2023 [facility] dical Specialists [facility] FOR RECORDS PERTAINING TO PATIENTS WHO ARE [...] BE BASED ON THE PRIMARY CLINICAL RECORDS. [facility]. provides no warranty or guarantee of the accuracy or completeness of information in this document.
--- NOTE | 2023-08-31 12:12 | ED.GENADUL1 ---
HPI - General Adult General Chief complaint: Seizure Stated complaint: 33 weeks , seizure Time Seen by Provider: 08/31/23 11:59 Source: patient and family Mode of arrival: walk-in Limitations: no limitations History of Present Illness HPI narrative: patient here for evaluation of possible seizures. She is and under the care of a local QUALITY CONTROL TECHNICIAN. She was started on blood pressure medicines three weeks ago, she believes it is labetalol 100 mg two times a day. She states she is compliant with it. She said she went to work today and had a seizure. She describes it as a absence type seizure where she stares. Her employer advised her to go home. When she did her male ios architect said she had a same thing when she was just staring. With her previous she had these type seizures that progressed into a grand mal seizure that then led to emergency section. Her blood pressure here is 162/114 and will be immediately checked with a manual cuff. She was triaged here from the OB department because there every other day upstairs.her QUALITY CONTROL TECHNICIAN doctor will be notified immediately. She will be given initial dose of labetalol Related Data Allergies Allergy/AdvReac Type Severity Reaction Status Date / Time codeine AdvReac Severe vomiting Verified 08/31/23 12:06 promethazine [From Phenergan] AdvReac Severe vomiting Verified 08/31/23 12:06 ciprofloxacin [From Cipro] AdvReac Intermediate vomiting Verified 08/31/23 12:06 [facility] Social History Smoking status: Never smoker Exam Narrative Exam Narrative: on arrival she is awake alert oriented ?3 no cognitive impairment no confusion. She's not repeating herself. She does not have any nausea at this time. She did have elevation in her blood pressure that was given firmed with a manual blood pressure cuff. At which time we did order her 1st dose of labetalol. Overall her color is good her skin is warm and dry she's not clammy or diaphoretic. HEENT her airway is widely patent there is no respiratory distress she has no headache. There is no scleral icterus or jaundice. Her lungs are clear with no wheezes rales or rhonchi pulse oximetry was normal. Heart rate and rhythm are normal. Twelve-lead EKG was done and showed sinus rhythm with slight increased rate at one zero five. There is no ST segment elevation. Her extremities showed no peripheral edema. She did not have any clonus. Deep tendon reflexes were symmetrical and not hyperreflexic. Her she did not have any abdominal findings and obstetrical nurses came down from that department placed her on monitoring shortly after arrival here. Constitutional Vital Signs, click to edit/add: Last Vital Signs Temp 97.7 F 08/31/23 11:59 Pulse 97 H 08/31/23 13:57 Resp 22 08/31/23 13:57 BP 121/71 08/31/23 13:57 Pulse Ox 95 08/31/23 13:57 O2 Del Method Room Air 08/31/23 11:59 Course Vital Signs Vital signs: Vital Signs Temperature 97.7 F 08/31/23 11:59 Pulse Rate 112 H 08/31/23 11:59 Respiratory Rate 18 08/31/23 11:59 Blood Pressure 162/114 H 08/31/23 11:59 Pulse Oximetry 98 08/31/23 11:59 Oxygen Delivery Method Room Air 08/31/23 11:59 Temperature 97.7 F 08/31/23 11:59 Pulse Rate 97 H 08/31/23 13:57 Respiratory Rate 22 08/31/23 13:57 Blood Pressure 121/71 08/31/23 13:57 Pulse Oximetry 95 08/31/23 13:57 Oxygen Delivery Method Room Air 08/31/23 11:59 Medical Decision Making MDM Narrative Medical decision making narrative: this patient presents with markedly elevation of blood pressure and what she describes and witnesses described as an absent-type seizure. Her 1st priority was administering medications to get her blood pressure more acceptable. A call was placed for her director of business systems who actually did come down to the department very shortly after arrival. Dr. Ricks and myself comanage this case and he actually made arrangements to have her transferred to a tertiary center. She did get a 2nd dose of labetalol 40 mg IV and then was placed on dosing of magnesium and magnesium drip. The latter meds were ordered by Dr. Ricks. Her blood pressure response was excellent. She remained stable here in the Emergency Room. monitoring was done throughout her stay here with there is no gross abnormalities.laboratory testing showed some anemia but liver function tests and kidney function were normal Lab Data Labs: Lab Results 01/10/24 01/10/24 01/10/24 Range/Units 12:20 12:27 12:27 WBC 11.3 H (4.0-11.0) 10^3/uL RBC 3.78 L (4.20-5.40) 10^6/uL Hgb 9.8 L (12.0-16.0) g/dL Hct 32.4 L (36.0-48.0) % MCV 85.7 (81.0-99.0) fL MCH 25.9 L (26.7-34.0) pg MCHC 30.2 (29.9-35.2) g/dL RDW 13.8 (11.0-15.0) % Plt Count 334 (150-450) 10^3/uL MPV 9.3 L (9.5-13.5) fL Neut % (Auto) 74.3 (43.0-75.0) % Lymph % (Auto) 18.3 L (20.5-60.0) % [place] % (Auto) 6.0 (1.7-12.0) % Eos % (Auto) 0.6 L (0.9-7.0) % Baso % (Auto) 0.3 (0.2-2.0) % Neut # (Auto) 8.4 H (1.4-6.5) 10^3/uL Lymph # (Auto) 2.1 (1.2-3.8) 10^3/uL [place] # (Auto) 0.7 (0.3-0.8) 10^3/uL Eos # (Auto) 0.1 (0.0-0.7) 10^3/uL Baso # (Auto) 0.0 (0.0-0.1) 10^3/uL Abs Immat Gran (auto) 0.06 H (0.00-0.03) 10^3/uL Imm/Tot Granulo (auto) 0.5 (0.0-0.5) % PT 9.6 (9.0-11.6) sec INR <0.93 APTT 29.3 (22.3-36.2) sec Fibrinogen 513 H (200-400) mg/dL VBG pH 7.422 (7.330-7.430) VBG pCO2 35.2 L (40.0-52.0) mmHg Sodium 133 L (136-145) mmol/L Potassium 3.6 (3.5-5.1) mmol/L Chloride 102 (98-107) mmol/L Carbon Dioxide 21.5 (21.0-32.0) mmol/L Anion Gap 13.1 BUN 8.0 (7.0-18.0) mg/dL Creatinine 0.66 (0.55-1.02) mg/dL Est GFR ( Amer) >60 (>=60) Est GFR (Non-Af Amer) >60 (>=60) BUN/Creatinine Ratio 12.1 Glucose 97 (74-106) mg/dL Uric Acid 4.5 (2.6-6.0) mg/dL Calcium 8.8 (8.5-10.1) mg/dL Magnesium 1.7 L (1.8-2.4) mg/dL Total Bilirubin 0.2 (0.2-1.0) mg/dL AST 10 L 10 L (15-37) U/L ALT 14 (14-59) U/L Alkaline Phosphatase (46-116) U/L Lactate Dehydrogenase (81-234) U/L Total Protein (6.4-8.2) g/dL Albumin (3.4-5.0) g/dL Globulin g/dL Albumin/Globulin Ratio Urine Color Lt. yellow (YELLOW) Urine Clarity Clear (CLEAR) Urine pH 7.5 (5.0-9.0) Ur Specific [place] 1.020 (1.005-1.025) Urine Protein Negative (NEG/TRACE) mg/dL Urine Glucose (UA) Negative (NEGATIVE) mg/dL Urine Ketones Negative (NEGATIVE) mg/dL Urine Occult Blood Negative (NEGATIVE) Urine Nitrite Negative (NEGATIVE) Urine Bilirubin Negative (NEGATIVE) Urine Urobilinogen 0.2 (0.2-1.0) EU/dL Ur Leukocyte Esterase Small A (NEGATIVE) Urine RBC None seen (0-2) #/HPF Urine WBC 2-5 A (NONE SEEN) #/HPF Ur Squamous Epith Cells Many A (NONE/RARE) #/LPF Urine Bacteria Large A (NONE SEEN) #/HPF Urine Mucus None seen (NONE SEEN) Ur Culture Indicated? Yes POC Glucose (74-106) mg/dL 08/31/23 08/31/23 Range/Units 12:27 12:31 WBC (4.0-11.0) 10^3/uL RBC (4.20-5.40) 10^6/uL Hgb (12.0-16.0) g/dL Hct (36.0-48.0) % MCV (81.0-99.0) fL MCH (26.7-34.0) pg MCHC (29.9-35.2) g/dL RDW (11.0-15.0) % Plt Count (150-450) 10^3/uL MPV (9.5-13.5) fL Neut % (Auto) (43.0-75.0) % Lymph % (Auto) (20.5-60.0) % [place] % (Auto) (1.7-12.0) % Eos % (Auto) (0.9-7.0) % Baso % (Auto) (0.2-2.0) % Neut # (Auto) (1.4-6.5) 10^3/uL Lymph # (Auto) (1.2-3.8) 10^3/uL [place] # (Auto) (0.3-0.8) 10^3/uL Eos # (Auto) (0.0-0.7) 10^3/uL Baso # (Auto) (0.0-0.1) 10^3/uL Abs Immat Gran (auto) (0.00-0.03) 10^3/uL Imm/Tot Granulo (auto) (0.0-0.5) % PT (9.0-11.6) sec INR APTT (22.3-36.2) sec Fibrinogen (200-400) mg/dL VBG pH (7.330-7.430) VBG pCO2 (40.0-52.0) mmHg Sodium (136-145) mmol/L Potassium (3.5-5.1) mmol/L Chloride (98-107) mmol/L Carbon Dioxide (21.0-32.0) mmol/L Anion Gap BUN (7.0-18.0) mg/dL Creatinine (0.55-1.02) mg/dL Est GFR ( Amer) (>=60) Est GFR (Non-Af Amer) (>=60) BUN/Creatinine Ratio Glucose (74-106) mg/dL Uric Acid (2.6-6.0) mg/dL Calcium (8.5-10.1) mg/dL Magnesium (1.8-2.4) mg/dL Total Bilirubin (0.2-1.0) mg/dL AST (15-37) U/L ALT 15 (14-59) U/L Alkaline Phosphatase 124 H (46-116) U/L Lactate Dehydrogenase 165 (81-234) U/L Total Protein 6.9 (6.4-8.2) g/dL Albumin 2.4 L (3.4-5.0) g/dL Globulin 4.5 g/dL Albumin/Globulin Ratio 0.5 Urine Color (YELLOW) Urine Clarity (CLEAR) Urine pH (5.0-9.0) Ur Specific [place] (1.005-1.025) Urine Protein (NEG/TRACE) mg/dL Urine Glucose (UA) (NEGATIVE) mg/dL Urine Ketones (NEGATIVE) mg/dL Urine Occult Blood (NEGATIVE) Urine Nitrite (NEGATIVE) Urine Bilirubin (NEGATIVE) Urine Urobilinogen (0.2-1.0) EU/dL Ur Leukocyte Esterase (NEGATIVE) Urine RBC (0-2) #/HPF Urine WBC (NONE SEEN) #/HPF Ur Squamous Epith Cells (NONE/RARE) #/LPF Urine Bacteria (NONE SEEN) #/HPF Urine Mucus (NONE SEEN) Ur Culture Indicated? POC Glucose 108 H (74-106) mg/dL Discharge Plan Discharge Chief Complaint: Seizure Clinical Impression: Hypertension, uncontrolled, Patient Disposition: [facility] Time of Disposition Decision: 14:17 Referrals: BG SIMPSON [Primary Care Provider] - 1 week
--- NOTE | 2023-08-31 12:13 | ECG_ITS ---
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
[2023-08-31] MEDS: LABETALOL HCL 20 MG/4 ML SYRINGE IVP (12:22)
[2023-08-31 12:28] LABS: Bilirubin Urine NEGATIVE (NEGATIVE); Blood Urine NEGATIVE (NEGATIVE); Clarity Urine CLEAR (CLEAR); Color Urine LT. YELLOW (YELLOW); Glucose Urine UA NEGATIVE (NEGATIVE); Ketones Urine NEGATIVE (NEGATIVE); Leukocyte Esterase Urine SMALL (NEGATIVE); Nitrite Urine NEGATIVE (NEGATIVE); Protein Urine NEGATIVE (NEG/TRACE); Urobilinogen Urine 0.2 EU/dL (0.2-1.0); pH Urine 7.5 (5.0-9.0)
[2023-08-31 12:32] LABS: Glucometer 108 mg/dL (74-106)
[2023-08-31 12:37] LABS: Basophils Percent Auto 0.3 % (0.2-2.0); Eosinophils Absolute Auto 0.1 10^3/uL (0.0-0.7); Eosinophils Percent Auto 0.6 % (0.9-7.0); Hematocrit 32.4 % (36.0-48.0); Hemoglobin 9.8 g/dL (12.0-16.0); Immature Granulocytes Abs Auto 0.06 10^3/uL (0.00-0.03); Immature Granulocytes Pct Auto 0.5 % (0.0-0.5); Lymphocytes Absolute Auto 2.1 10^3/uL (1.2-3.8); Lymphocytes Percent Auto 18.3 % (20.5-60.0); Mean Corpuscular HGB Conc 30.2 g/dL (29.9-35.2); Mean Corpuscular Hemoglobin 25.9 pg (26.7-34.0); Mean Corpuscular Volume 85.7 fL (81.0-99.0); Mean Platelet Volume 9.3 fL (9.5-13.5); Monocytes Absolute Auto 0.7 10^3/uL (0.3-0.8); Neutrophils Absolute Auto 8.4 10^3/uL (1.4-6.5); Neutrophils Percent Auto 74.3 % (43.0-75.0); Platelet Count 334 10^3/uL (150-450); Red Blood Count 3.78 10^6/uL (4.20-5.40); Red Cell Distribution Width 13.8 % (11.0-15.0); White Blood Count 11.3 10^3/uL (4.0-11.0)
[2023-08-31 12:43] LABS: Urine Microscopic Indicated YES
[2023-08-31 12:46] LABS: PCO2 VBG 35.2 mmHg (40.0-52.0); pH VBG 7.422 (7.330-7.430)
[2023-08-31] MEDS: ONDANSETRON PF 4 MG/2 ML VIAL IV (12:48)
[2023-08-31] MEDS: LABETALOL HCL 20 MG/4 ML SYRINGE 40 MG IVP (12:50)
[2023-08-31 12:52] LABS: Bacteria Urine LARGE #/HPF (NONE SEEN); Mucus Urine NONE SEEN (NONE SEEN); RBC Urine NONE SEEN #/HPF (0-2); Squamous Epithelial Cell Urine MANY #/LPF (NONE/RARE)
[2023-08-31 12:53] LABS: Alanine Aminotransferase 14 U/L (14-59); Albumin Globulin Ratio 0.5; Albumin Level 2.4 g/dL (3.4-5.0); Alkaline Phosphatase 124 U/L (46-116); Anion Gap 13.1; Aspartate Amino Transferase 10 U/L (15-37); BUN Creatinine Ratio 12.1; Bilirubin Total 0.2 mg/dL (0.2-1.0); Calcium 8.8 mg/dL (8.5-10.1); Carbon Dioxide 21.5 mmol/L (21.0-32.0); Chloride 102 mmol/L (98-107); Estimated GFR (African America >60 (>=60); Estimated GFR (Non-African Ame >60 (>=60); Globulin 4.5 g/dL; Glucose 97 mg/dL (74-106); Magnesium 1.7 mg/dL (1.8-2.4); Potassium 3.6 mmol/L (3.5-5.1); Sodium 133 mmol/L (136-145); Total Protein 6.9 g/dL (6.4-8.2)
[2023-08-31 12:53] LABS: Urine Culture Indicated YES
[2023-08-31] MEDS: LABETALOL HCL 200 MG TABLET PO (13:22)
[2023-08-31] MEDS: BETAMETHASONE ACE/BETAMETHASONE SOD PHOS 30 MG/5 ML 12 MG IM (13:26)
[2023-08-31 13:40] LABS: Alanine Aminotransferase 15 U/L (14-59); Aspartate Amino Transferase 10 U/L (15-37); Lactate Dehydrogenase 165 U/L (81-234); Uric Acid 4.5 mg/dL (2.6-6.0)
[2023-08-31] MEDS: MAGNESIUM SULFATE IN WATER 4 GM/100 ML PIGGYBACK IV (13:41)
[2023-08-31 13:49] LABS: Partial Thromboplastin Time 29.3 sec (22.3-36.2); Prothrombin Time 9.6 sec (9.0-11.6)
[2023-08-31 13:56] LABS: INR <0.93
[2023-08-31 13:58] LABS: Fibrinogen 513 mg/dL (200-400)
[2023-08-31] MEDS: 0.9 % SODIUM CHLORIDE 1,000 ML 75 ML IV (14:05)
[2023-08-31] MEDS: MAGNESIUM SULFATE IN WATER 40 GM/1,000 ML IV.SOLN IV (14:06)
--- NOTE | 2023-08-31 14:19 | PC.NURSE ---
[facility] here for transport at this time.
--- NOTE | 2023-08-31 15:12 | PC.NURSE ---
08/31/2023 1225 To ER to evaluate/ obtain EFM while pt evaluated for blood pressure in ER department. Sidney awake and states doing ok except for headache, and just do not feel good S.O at bedside and is supportive. EFM initiated, heart tones fleeting, difficult to monitor due to maternal size and position. 1230 Pt has small mucus emesis. Searching for FHT after emesis. 1236 Mod/large emesis, cool cloth to forehead. 1240 - 1250 FHT 120-142 movement noted per palpation. Pt noted to be unresponsive to verbal stimuli or touch, lasting 5-7 seconds. Eyes refocus and pt responds to stimuli. No tremors or tonic/clonic movements noted. 1250- 1300 FHT 125-150 with baby active. 1300- 1310 FHT 120-150 with activity. US hand held by RN. Pt noted to be unresponsive to verbal or tactile stimulation for 5-10 sec. Eyes refocus and responds. No tremors, tonic/clonic movements. 1305 MSpencer RN in attendance as well. 5146-2921 FHT - 110-145 with activity. continues to have headache. 1320 - 1330 FHT Turned to left tilt for comfort. FHT 130's and then searching , handheld. 1330 - 1340 [id number] with movement. 1335 Chaudhari cath placed sterile technique, with return of clear yellow colored urine. Cath secured. 1339 29 sec episode of starring, no response, no tonic/clonic movements. Eyes refocus and responds appropriately. 1353 30 sec episode of starring, no response, no tonic/clonic movements. Refocus and responds to verbal stimuli. 0868-2503 FHT 120-135 Room quiet and pt continues to have headache. 2682-8630 FHT 806-422 0599-1410 FHR 110-140 baby very active. 1408 20 sec episode of starring, no response, no tonic/clonic movements. Stimulated with cool cloth and chest rub , pt responds appropriately. 5806-6061 FHR 110-145 . [facility] team arrives. Report given per MSpencer RN 1421 18 sec starring episode as before. 9595-7050 FHR 110-140. Transport team prepares pt. 1428 32 sec episode again. Transport team aware. Dr Lam in to advise only use anticonvulsant Valium if has grand mal seizure activity noted. 1439 Transfer team leaves with pt for ground transport. All belongings with pt. Pt awake and denies change in status. 1450 TC to [facility] L&D/ Special care unit nurse Amber given report on pt. No further questions at this time.
== END 2023-08-31 14:45 | disposition short-term general hospital (02) ==
PROVIDERS: Obstetrics & Gynecology; Emergency Provider Emergency Medicine Emergency Medical Services; PCP Family Medicine
DX: O16.3 Unspecified maternal hypertension, third trimester (principal); Z3A.33 33 weeks gestation of pregnancy; Z79.899 Other long term (current) drug therapy
CPT/HCPCS: 36415; 80053; 81001; 82565; 82800; 83615; 83735; 84450; 84460; 84520; 84550; 85025; 85384; 85610; 85730; 87086; 93005; 96372; 96374; 96375; 99285; J0702; J1290; J2405; J3475

== ENCOUNTER 2023-09-08 13:34 | Emergency (ER) | payer OTHER, SELFPAY ==
[2023-09-08] VITALS (10 sets, daily range): BP systolic 138–165; BP diastolic 86–104; PULSE 95–110; RESP 14–27; TEMP 36.8; O2SAT 97; BMI 41.9
--- NOTE | 2023-09-08 14:10 | PC.NURSE ---
C/O GREENE, SOB AND RECENTLY HAD EMERGENCY CSECTION D/T SEIZURE FORM HTN. PT REMAINS HYPERTENSIVE
--- OUTSIDE RECORDS SUMMARY | 2023-09-08 14:10 | XMS_ITS | CCD ---
Demographics Address [address] [place] [address] Preferred Language en Marital Status Single Mandaeism Affiliation Unknown Race White Ethnic Group Not or Lati no Author Name Unknown Address [address] [facility] [address] [place] [address] Organization [facility] Care Team Providers Care Math Coach Name Role Phone Racquel Simpson Primary Care Provider RACQUEL SIMPSON Primary Care Unavailable TAMMY CHERRY Admitting Unavailable TAMMY CHERRY Attending Unavailable Racquel Simpson MD Primary Care Provider [phone] MAURISIO ., DR ODONNELL Primary Care Unavailable BAUTISTAK ., DR KRAMER Consulting Unavailabl e MAURISIO ., DR ODONNELL Attending Unavailable MAURISIO ., DR ODONNELL Admitting Unavailable [place], DR AARON Owusu Consulting Unavailable MAURISIO ., DR ODONNELL Consulting Unavailable MARGOT LAU Consulting Unavailable MAURISIO ., DR ODONNELL Primary Care Unavailable MAURISIO ., DR ODONNELL Attending Unavailable MAURISIO ., DR ODONNELL Admitting Unavailable MAURISIO ., DR ODONNELL Primary Care Unavailable MAURISIO ., DR ODONNELL Consulting Unavailable MAURISIO ., DR ODONNELL Attending Unavailable MAURISIO ., DR ODONNELL Admitting Unavailable ZIJANKI, DR PILAR Glass Consulting Unavailable MAURISIO ., DR ODONNELL Consulting Unavailable MAURISIO ., DR ODONNELL Attending Unavailable MAURISIO ., DR ODONNELL Admitting Unavailable MAURISIO ., DR ODONNELL Primary Care Unavailable BRONSON, DR PILAR Glass Consulting Unavailable REQUEST, DR WHITE LISTED Consulting Unavailhank Simpson MD, Racquel Garcia Primary Care Provider [...] [CIPROFLOXACIN] Drug Allergy 2 Nausea And Vomiting [place], [place] (9 sources) Codeine; Translations: [CODEINE] Drug Allergy 2 Seizure [place], [place] (8 sources) Promethazine Drug Allergy 2 Nausea And Vomiting [place], [place] (1 source) Ciprofloxacin Drug Allergy 5 [facility] Repository (1 source) Codeine Drug Allergy 5 [facility] (1 source) Levamisole Drug Allergy 5 [facility] Rep[facility] (1 source) Promethazine; Translations: [PROMETHAZINE] Drug Allergy 4 [facility] Repository Medications Current Medications Medication Drug Class(es) Dates Sig (Normalized) Sig (Original) [id number] 200 actuat albuterol 0.09 mg/actuat metered dose [...] Hives, docusate sodium 50 mg / sennosides, fdc 8.6 mg oral tablet (2 sources) Start: [...] (LIST CLEANUP) take 1 tablet by ok th once daily, then take 1 tablet by [...] (3 sources) Opioid Agonist Start: 05-25-2022 End: 05-25-2022 HYDROmorphone (DILAUDID) injection 0.5 mg Start: 05-25-2022 End: 05-25-2022 HYDROmorphone (DILAUDID) inj ection 0.5 mg Start: 05-25-2022 End: 05-25-2022 HYDROmorphone (DILAUDID) 1 M G/ML injection HYDROmorphone (DILAUDID) 1 mg/mL [employer]ING [employer] ENGINEER (1 source) Start: 05-25-2022 End: 05-26-2022 HYDROmorphone (DILAUDID) 1 mg/mL [employer]ATING [employer]ING SYSTEMS ENGINEER 1 ml ketorolac tromethamine 30 mg/ml cartridge [...] premix Start: 05-25-2022 End: 05-26-2022 magnesium sulfate (23891 mg/ 500mL infusion) Start: 05-25-2022 End: 05-25-2022 [...] Until Discontinued, Opioid Reversal polyethylene glycol 3350 26522 mg powder for oral solution (1 source) [...] sources) Taking high risk medication; Translations: [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 00CD:127 Normal [facility] CBC panel Auto (Bld)on 03-17 Erythrocyte distribution width (RBC) [Ratio] 13.2 % Normal 11.5-15.0 [facility] Comment on above: Order Comment: Speci men Type: BLOOD SPECIMENOrdering Facility: [facility] Address: [address] [place] [address] Performed By: #### 5 8410-2 ####[facility] [id number] [place] [address] [place] Hematocrit (Bld) [Volume fraction] 35.1 % Low 36.0-46.0 [facility] Comment on above: Order Comment: Speci men Type: BLOOD SPECIMENOrdering Facility: [facility] Address: [address] [place] [address] Performed By: #### 5 8410-2 ####[facility] [id number] [place] [address] [place] Hemoglobin (Bld) [Mass/Vol] 11.3 g/dL Low 11.5-15.5 [facility] Comment on above: Order Comment: Speci men Type: BLOOD SPECIMENOrdering Facility: [facility] Address: [address] [place] [address] Performed By: #### 5 8410-2 ####[facility] LABIA [id number] [address] MCH (RBC) [Entitic mass] 26.3 pg Normal 26.0-34.0 [facility] Comment on above: Order Comment: Speci men Type: BLOOD SPECIMENOrdering Facility: [facility] Address: [address] Performed By: #### 5 8410-2 ####[facility] [id number] [address] [place] MCHC (RBC) [Mass/Vol] 32.2 g/dL Normal 30.5-36.0 [facility] Comment on above: Order Comment: Speci men Type: BLOOD SPECIMENOrdering Facility: [facility] Address: [address] [place], [place] [address] Performed By: #### 5 8410-2 ####[facility] [id number] [address] [place] MCV (RBC) [Entitic vol] 81.6 fL Normal 80.0-100.0 [facility] Comment on above: Order Comment: Speci men Type: BLOOD SPECIMENOrdering Facility: [facility] Address: [address] [place], [place] [address] Performed By: #### 5 8410-2 ####[facility] LABIA [id number] [address] [place] Nucleated RBC (Bld) [#/Vol] 10*3/uL Normal <0.01 [facility] Comment on above: Order Comment: Speci men Type: BLOOD SPECIMENOrdering Facility: [facility] Address: [address] [place], [place] [address] Performed By: #### 5 8410-2 ####[facility] LABIA [id number] [place] [address] [place] Platelet mean volume (Bld) [Entitic vol] 8.7 fL Low 9.0-12.7 [facility] Comment on above: Order Comment: Speci men Type: BLOOD SPECIMENOrdering Facility: [facility] Address: [address] [place], [place] [address] Performed By: #### 5 8410-2 ####[facility] LABCLIA [id number] [place] [address] [place] Platelets (Bld) [#/Vol] 482 10*3/uL High 150-400 [facility] Comment on above: Order Comment: Speci men Type: BLOOD SPECIMENOrdering Facility: [facility] Address: [address] [place], [place] [address] Performed By: #### 5 8410-2 ####[facility] LABIA [id number] [place] [address] [place] RBC (Bld) [#/Vol] 4.30 10*6/uL Normal 3.90-5.20 [facility] Comment on above: Order Comment: Speci men Type: BLOOD SPECIMENOrdering Facility: [facility] Address: [address] [place], [place] [address] Performed By: #### 5 8410-2 ####[facility] LABIA [id number] [place] [address] [place] WBC (Bld) [#/Vol] 10.57 10*3/uL Normal 3.70-11.00 [facility] Comment on above: Order Comment: Speci men Type: BLOOD SPECIMENOrdering Facility: [facility] Address: [address] [place], [place] [address] Performed By: #### 5 8410-2 ####[facility] LABCLIA [id number] [place] [address] [place] CNDSon 03-17-2023 CNDS HNO ID: [id number] Author: Manoj Ramos MD Service: General Internal [...] your kidney infection. Please follow-up with your label folder doctor regarding ongoing antibiotic recommendations in LABS [...] ORAL Tylen (more content not included)... Normal [facility] Magnesium SerPl-mCncon 03-17 Magnesium [Mass/Vol] 2.0 mg/dL Normal 1.7-2.3 [facility] Comment on above: Order Comment: Speci men Type: BLOOD SPECIMENOrdering Facility: [facility] Address: [address] [place] [address] Performed By: #### 2 4362-6, ####[facility] [id number] [place] [address] [place] Renal function [address] [place], [place] [address]on 03-17-2023 Albumin [Mass/Vol] 3.7 g/dL Low 3.9-4.9 [facility] Comment on above: Order Comment: Speci men Type: BLOOD SPECIMENOrdering Facility: [facility] Address: [address] Performed By: #### 2 4362-6, ####[facility] [id number] [place] [address] [place] Anion gap [Moles/Vol] 15 mmol/L Normal 9-18 [facility] Comment on above: Order Comment: Speci men Type: BLOOD SPECIMENOrdering Facility: [facility] Address: [address] Performed By: #### 2 4362-6, ####[facility] [id number] [place] [address] [place] Calcium [Mass/Vol] 9.6 mg/dL Normal 8.5-10.2 [facility] Comment on above: Order Comment: Speci men Type: BLOOD SPECIMENOrdering Facility: [facility] Address: [address] Performed By: #### 2 4362-6, ####[facility] LABCLIA [id number] [place] [address] [place] Chloride [Moles/Vol] 99 mmol/L Normal 97-105 [facility] Comment on above: Order Comment: Speci men Type: BLOOD SPECIMENOrdering Facility: [facility] Address: [address] [place] [address] Performed By: #### 2 4362-6, ####[facility] LABCLIA [id number] [place] [address] [place] CO2 [Moles/Vol] 20 mmol/L Low 22-30 [facility] Comment on above: Order Comment: Speci men Type: BLOOD SPECIMENOrdering Facility: [facility] Address: [address] [place], [place] [address] Performed By: #### 2 4362-6, ####[facility] LABCLIA [id number] [place] [address] [place] Creatinine [Mass/Vol] 0.67 mg/dL Normal 0.58-0.96 [facility] Comment on above: Order Comment: Speci men Type: BLOOD SPECIMENOrdering Facility: [facility] Address: [address] [place], [place] [address] Performed By: #### 2 4362-6, ####[facility] LABIA [id number] [place] [address] [place] ESTIMATED GLOMERULAR FILTRATION RATE 121 mL/min/1.73m??? Normal >=60 [facility] Comment on above: Order Comment: Speci men Type: BLOOD SPECIMENOrdering Facility: [facility] Address: [address] [place] [address] Result Comment: Marisa mated Glomerular Filtration Rate [...] actual GFR. Performed By: #### 2 4362-6, ####[facility] LABCLIA [id number] [facility] [address] [address] [place] Glucose [Mass/Vol] 130 mg/dL High 74-99 [facility] Comment on above: Order Comment: Specantonina francisco Type: BLOOD SPECIMENOrdering Facility: [facility] Address: [address] [place] [address] Result Comment: The [place] [employer] Association (ADA) provides guidance for cutoff [...] Standards of Medical Care in Diabetes 2016, [place] [employer]. Diabetes Care. 2016.39(Suppl 1). Performed By: #### 2 43609-27, ####[facility] LABCLIA [id number] [facility] [address] [address] [place] Phosphate [Mass/Vol] 3.7 mg/dL Normal 2.7-4.8 [facility] Comment on above: Order Comment: Tee francisco Type: BLOOD SPECIMENOrdering Facility: [facility] Address: [address] [place] [address] Performed By: #### 2 43609-27, ####[facility] LABCLIA [id number] [facility] [address] [address] [place] Potassium [Moles/Vol] 3.9 mmol/L Normal 3.7-5.1 [facility] Comment on above: Order Comment: Speci men Type: BLOOD SPECIMENOrdering Facility: [facility] Address: [address] [place] [address] Performed By: #### 2 4362-6, ####[facility] LABCLIA [id number] [place] [address] [place] Sodium [Moles/Vol] 134 mmol/L Low 136-144 [facility] Comment on above: Order Comment: Speci men Type: BLOOD SPECIMENOrdering Facility: [facility] Address: [address] [place] [address] Performed By: #### 2 436-6, ####[facility] LABCLIA [id number] [address] [place] Urea nitrogen [Mass/Vol] 12 mg/dL Normal 7-21 [facility] Comment on above: Order Comment: Speci men Type: BLOOD SPECIMENOrdering Facility: [facility] Address: [address] [place] [address] Performed By: #### 2 4362-6, ####[facility] LABCLIA [id number] [address] [place] ALLIED HEALTHon 03-16-2023 ALLIED HEALTH HNO ID: [id number] Author: Heather Mcnair RT(R) Service: ? Author [...] PERIPHERAL IV DATA: Not applicable SIGNED BY: Heather Mcnair RT(R) March 16, 2023 9:16 PM Normal [facility] CBC panel Auto (Bld)on 03-16 Erythrocyte distribution width (RBC) [Ratio] 13.4 % Normal 11.5-15.0 [facility] Comment on above: Order Comment: Speci men Type: BLOOD SPECIMENOrdering Facility: [facility] Address: [address] [place] [address] Performed By: #### 5 8410-2 ####[facility] [id number] [address] [place] Hematocrit (Bld) [Volume fraction] 33.1 % Low 36.0-46.0 [facility] Comment on above: Order Comment: Speci men Type: BLOOD SPECIMENOrdering Facility: [facility] Address: [address] [place] [address] Performed By: #### 5 8410-2 ####[facility] LABIA [id number] [address] [place] Hemoglobin (Bld) [Mass/Vol] 10.7 g/dL Low 11.5-15.5 [facility] Comment on above: Order Comment: Speci men Type: BLOOD SPECIMENOrdering Facility: [facility] Address: [address] [place] [address] Performed By: #### 5 8410-2 ####[facility] LABIA [id number] [place] [address] [place] MCH (RBC) [Entitic mass] 26.4 pg Normal 26.0-34.0 [facility] Comment on above: Order Comment: Speci men Type: BLOOD SPECIMENOrdering Facility: [facility] Address: [facility] [address] Performed By: #### 5 8410-2 ####[facility] LABCLIA [id number] [address] MCHC (RBC) [Mass/Vol] 32.3 g/dL Normal 30.5-36.0 [facility] Comment on above: Order Comment: Speci men Type: BLOOD SPECIMENOrdering Facility: [facility] Address: [address] Performed By: #### 5 8410-2 ####[facility] LABCLIA [id number] [address] [place] MCV (RBC) [Entitic vol] 81.7 fL Normal 80.0-100.0 [facility] Comment on above: Order Comment: Speci men Type: BLOOD SPECIMENOrdering Facility: [facility] Address: [address] [place], [place] [address] Performed By: #### 5 8410-2 ####[facility] LABIA [id number] [place] [address] [place] Nucleated RBC (Bld) [#/Vol] 10*3/uL Normal <0.01 [facility] Comment on above: Order Comment: Speci men Type: BLOOD SPECIMENOrdering Facility: [facility] Address: [address] [place] [address] Performed By: #### 5 8410-2 ####[facility] LABCLIA [id number] [address] [place] Platelet mean volume (Bld) [Entitic vol] 9.0 fL Normal 9.0-12.7 [facility] Comment on above: Order Comment: Speci men Type: BLOOD SPECIMENOrdering Facility: [facility] Address: [address] [place], [place] [address] Performed By: #### 5 8410-2 ####[facility] LABCLIA [id number] [place] [address] [place] Platelets (Bld) [#/Vol] 444 10*3/uL High 150-400 [facility] Comment on above: Order Comment: Speci men Type: BLOOD SPECIMENOrdering Facility: [facility] Address: [address] [place] [address] Performed By: #### 5 8410-2 ####[facility] [id number] [place] [address] [place] RBC (Bld) [#/Vol] 4.05 10*6/uL Normal 3.90-5.20 [facility] Comment on above: Order Comment: Speci men Type: BLOOD SPECIMENOrdering Facility: [facility] Address: [address] [place] [address] Performed By: #### 5 8410-2 ####[facility] [id number] [place] [address] [place] WBC (Bld) [#/Vol] 8.78 10*3/uL Normal 3.70-11.00 [facility] Comment on above: Order Comment: Speci men Type: BLOOD SPECIMENOrdering Facility: [facility] Address: [address] [place] [address] Performed By: #### 5 8410-2 ####[facility] [id number] [address] [place] CONSULT PROGon 03-16-2023 CONSULT PROG HNO ID: [id number] Author: Abbie Cifuentes MD Service: Obstetrics Author Type: Physician Type: Consult Progress Note Filed: 03/16/2023 7:27 AM Note Text: clinical product specialist consult progress note Review the US on 03/15 with patient : Single , Live Intrauterine gestation / 8 weeks 2 days by CRL Blood Type : O positive Patient will follow up with her local clinical product specialist to continue care. Desk Reporter sign off If any question , please page x [phone]. Rusty Muniz 03/16/2023 7:27 AM Normal [facility] MRI ABDOMEN WO IVCONon 03-16 MRI ABDOMEN [...] LEFT PYELONEPHRITIS. NO HYDRONEPHROSIS. COMMUNICATION: Communicated with MIKEL STANLEY on 03/17/2023 9:32 AM via verbal communication. Community Outreach Manager: PSCB Transcribe Date/Time: Mar 17 2023 8:02A Dictated by : BRANDEN DE LA TORRE MD This examination was interpreted and the report reviewed and electronically signed by: JAZMIN VALENTE MD on Mar 17 2023 9:50AM EST [id number] Normal [facility] Magnesium SerPl-mCncon 03-16 Magnesium [Mass/Vol] 1.9 mg/dL Normal 1.7-2.3 [facility] Comment on above: Order Comment: Speci men Type: BLOOD SPECIMENOrdering Facility: [facility] Address: [address] [place] [address] Performed By: #### 1 9123-9, 21452-8 ####[facility] LABCLIA [id number] [place] [address] [place] Renal function 2000 panelon 03-16-2023 Albumin [Mass/Vol] 3.6 g/dL Low 3.9-4.9 [facility] Comment on above: Order Comment: Speci men Type: BLOOD SPECIMENOrdering Facility: [facility] Address: [address] [place] [address] Performed By: #### 1 9123-9, 26889-1 ####[facility] LABCLIA [id number] [place] [address] [place] Anion gap [Moles/Vol] 14 mmol/L Normal 9-18 [facility] Comment on above: Order Comment: Speci men Type: BLOOD SPECIMENOrdering Facility: [facility] Address: [address] [place] [address] Performed By: #### 1 9123-9, 18934-3 ####[facility] LABCLIA [id number] [place] [address] [place] Calcium [Mass/Vol] 9.3 mg/dL Normal 8.5-10.2 [facility] Comment on above: Order Comment: Speci men Type: BLOOD SPECIMENOrdering Facility: [facility] Address: [address] [place], [place] [address] Performed By: #### 1 9123-9, 32725-8 ####[facility] LABCLIA [id number] [place] [id number] [place] Chloride [Moles/Vol] 102 mmol/L Normal 97-105 [facility] Comment on above: Order Comment: Speci men Type: BLOOD SPECIMENOrdering Facility: [facility] Address: [address] [place] [address] Performed By: #### 1 9123-9, 89413-4 ####[facility] LABCLIA [id number] [address] [place] CO2 [Moles/Vol] 20 mmol/L Low 22-30 [facility] Comment on above: Order Comment: Speci men Type: BLOOD SPECIMENOrdering Facility: [facility] Address: [address] [place] [address] Performed By: #### 1 9123-9, 89752-8 ####[facility] LABCLIA [id number] [address] OF [facility] Creatinine [Mass/Vol] 0.71 mg/dL Normal 0.58-0.96 [facility] Comment on above: Order Comment: Speci men Type: BLOOD SPECIMENOrdering Facility: [facility] Address: [address] [place] [address] Performed By: #### 1 9123-9, 90915-8 ####[facility] LABCLIA [id number] [address] ESTIMATED GLOMERULAR FILTRATION RATE 117 mL/min/1.73m??? Normal >=60 [facility] Comment on above: Order Comment: Speci men Type: BLOOD SPECIMENOrdering Facility: [facility] Address: [address] [place] [address] Result Comment: Marisa mated Glomerular Filtration Rate [...] actual GFR. Performed By: #### 1 9123-9, 75012-7 ####[facility] LABCLIA [id number] [place] [address] [place] Glucose [Mass/Vol] 125 mg/dL High 74-99 [facility] Comment on above: Order Comment: Speci men Type: BLOOD SPECIMENOrdering Facility: [facility] Address: [address] [place] [address] Result Comment: The [place] Diabetes Association (ADA) provides guidance for cutoff [...] Standards of Medical Care in Diabetes 2016, [place] [employer]. Diabetes Care. 2016.39(Suppl 1). Performed By: #### 1 9123-9, 78489-5 ####[facility] LABIA [id number] [place] [address] [place] Phosphate [Mass/Vol] 3.7 mg/dL Normal 2.7-4.8 [facility] Comment on above: Order Comment: Speci men Type: BLOOD SPECIMENOrdering Facility: [facility] Address: [address] [place], [place] [address] Performed By: #### 1 9123-9, 07346-8 ####[facility] LABIA [id number] [place] [address] [place] Potassium [Moles/Vol] 3.9 mmol/L Normal 3.7-5.1 [facility] Comment on above: Order Comment: Speci men Type: BLOOD SPECIMENOrdering Facility: [facility] Address: [address] [place] [address] Performed By: #### 1 9123-9, 28286-9 ####[facility] LABCLIA [id number] [place] [address] [place] Sodium [Moles/Vol] 136 mmol/L Normal 136-144 [facility] Comment on above: Order Comment: Speci men Type: BLOOD SPECIMENOrdering Facility: [facility] Address: [address] [place] [address] Performed By: #### 1 9123-9, 46525-1 ####[facility] LABCLIA [id number] [place] [address] [place] Urea nitrogen [Mass/Vol] 10 mg/dL Normal 7-21 [facility] Comment on above: Order Comment: Speci men Type: BLOOD SPECIMENOrdering Facility: [facility] Address: [address] [place] [address] Performed By: #### 1 9123-9, 44560-2 ####[facility] LABIA [id number] [place] [address] [place] CBC panel Auto (Bld)on 03-15 Erythrocyte distribution width (RBC) [Ratio] 13.5 % Normal 11.5-15.0 [facility] Comment on above: Order Comment: Speci men Type: BLOOD SPECIMENOrdering Facility: [facility] Address: [address] [place] [address] Performed By: #### 5 8410-2 ####[facility] LABIA [id number] [place] [address] [place] Hematocrit (Bld) [Volume fraction] 32.4 % Low 36.0-46.0 [facility] Comment on above: Order Comment: Speci men Type: BLOOD SPECIMENOrdering Facility: [facility] Address: [address] [place] [address] Performed By: #### 5 8410-2 ####[facility] LABIA [id number] [place] [address] [place] Hemoglobin (Bld) [Mass/Vol] 10.4 g/dL Low 11.5-15.5 [facility] Comment on above: Order Comment: Speci men Type: BLOOD SPECIMENOrdering Facility: [facility] Address: [address] [place], [place] [address] Performed By: #### 5 8410-2 ####[facility] LABCLIA [id number] [address] MCH (RBC) [Entitic mass] 26.6 pg Normal 26.0-34.0 [facility] Comment on above: Order Comment: Speci men Type: BLOOD SPECIMENOrdering Facility: [facility] Address: [address] [place], [place] [address] Performed By: #### 5 8410-2 ####[facility] LABCLIA [id number] [address] MCHC (RBC) [Mass/Vol] 32.1 g/dL Normal 30.5-36.0 [facility] Comment on above: Order Comment: Speci men Type: BLOOD SPECIMENOrdering Facility: [facility] Address: [address] [place], [place] [address] Performed By: #### 5 8410-2 ####[facility] LABIA [id number] [address] MCV (RBC) [Entitic vol] 82.9 fL Normal 80.0-100.0 [facility] Comment on above: Order Comment: Speci men Type: BLOOD SPECIMENOrdering Facility: [facility] Address: [address] [place], [place] [address] Performed By: #### 5 8410-2 ####[facility] LABCLIA [id number] [address] [place] Nucleated RBC (Bld) [#/Vol] 10*3/uL Normal <0.01 [facility] Comment on above: Order Comment: Speci men Type: BLOOD SPECIMENOrdering Facility: [facility] Address: [address] Performed By: #### 5 8410-2 ####[facility] LABIA [id number] [place] [address] [place] Platelet mean volume (Bld) [Entitic vol] 9.5 fL Normal 9.0-12.7 [facility] Comment on above: Order Comment: Speci men Type: BLOOD SPECIMENOrdering Facility: [facility] Address: [address] [place], [place] [address] Performed By: #### 5 8410-2 ####[facility] LABIA [id number] [place] [address] [place] Platelets (Bld) [#/Vol] 450 10*3/uL High 150-400 [facility] Comment on above: Order Comment: Speci men Type: BLOOD SPECIMENOrdering Facility: [facility] Address: [address] [place], [place] [address] Performed By: #### 5 8410-2 ####[facility] LABIA [id number] [place] [address] [place] RBC (Bld) [#/Vol] 3.91 10*6/uL Normal 3.90-5.20 [facility] Comment on above: Order Comment: Speci men Type: BLOOD SPECIMENOrdering Facility: [facility] Address: [address] [place], [place] [address] Performed By: #### 5 8410-2 ####[facility] LABIA [id number] [place] [address] [place] WBC (Bld) [#/Vol] 10.48 10*3/uL Normal 3.70-11.00 [facility] Comment on above: Order Comment: Speci men Type: BLOOD SPECIMENOrdering Facility: [facility] Address: [address] [place], [place] [address] Performed By: #### 5 8410-2 ####[facility] LABCLIA [id number] [facility] [id number] [id number] [place] CONSULTon 03-15-2023 CONSULT HNO ID: [id number] Author: Abbie Cifuentes MD Service: Gynecology Author [...] hr Seen and evaluated with Dr. Cifuentes, [facility] staff. Pretty Duncan DO Custodian Blood Bank Resident, PGY-1 9:11 AM After 5pm and on weekends please page [phone]. SUBJECTIVE HPI: 32 year old with PMHx Stills disease, benign liver angioma s/p resection, at 8 weeks 6 days gestation (by LMP) admitted for pyelonephritis, seen by gynecology for vaginal spotting. States she began experiencing flank pain with hematuria, without dysuria or frequency, on February 22. Called her OB provider (Dr. Ricks at [facility]), who gave rx for macrobid. [...] scheduled this Tuesday (03/18) Was transferred to [facility] for management given her history of Stills [...] Mg, emergency CS. Delivered 9 mo ago [facility] Hx: LMP: 01/12/23 Menses: regular every 28 [...] The remainde (more content not included)... Normal [facility] CRP SerPl-ncon 03-15-2023 CRP [Mass/Vol] 9.0 mg/dL High <0.9 [facility] Comment on above: Order Comment: Speci men Type: BLOOD SPECIMENOrdering Facility: [facility] Address: [address] [place] [address] Performed By: #### 1 988-5, 48000-5, 84427-7 ####[facility] LABCLIA [id number] [address] OF [facility] MEDICAL EMERon 03-15-2023 MEDICAL DEVI HNO ID: [id number] Author: Jose De Jesus White APRN.CLINICAL RESEARCH ASSOCIATE Service: Critical Care Author Type: Nurse Practitioner [...] bleeding HPI: Ms. Clements was transferred to [facility] 03/13 from [facility] for further mgmt of possible pyelonephritis, adult [...] Abdomen: soft and tender Peripheral 03/13/23 1300 [facility] Short Left Antecubital 18 Gauge (Active) Placement Date/Time: 03/13/23 1300 Line, Drain, Airway Placed by: [facility] Type of Peripheral Line: Short Location: Left Insertion Site: Antecubital Size: 18 Gauge Line Placed Under Ultrasound Guidance: Yes Peripheral 03/13/23 1300 [facility] Right Forearm 18 Gauge (Active) Placement Date/Time: 03/13/23 1300 Line, Drain, Airway Placed by: [facility] Location: Right Insertion Site: Forearm Size: 18 Gauge Line Placed Under Ultrasound Guidance: Yes [facility] Diagnostic Tests Reviewed: Most recent labs and imaging results. Primary Team Aware/Notified: Yes SIGNATURE: Jose De Jesus White APRN.CNP PATIENT NAME: Qian Clements DATE: March 15, 2023 TIME: 8:57 AM Normal [facility] Magnesium SerPl-mCncon 03-15 Magnesium [Mass/Vol] 2.1 mg/dL Normal 1.7-2.3 [facility] Comment on above: Order Comment: Speci men Type: BLOOD SPECIMENOrdering Facility: [facility] Address: [address] [place], [place] [address] Performed By: #### 1 988-5, 24240-9, 93181-0 ####[facility] LABCLIA [id number] [place] [address] [place] Renal function 2000 panelon 03-15-2023 Albumin [Mass/Vol] 3.7 g/dL Low 3.9-4.9 [facility] Comment on above: Order Comment: Speci men Type: BLOOD SPECIMENOrdering Facility: [facility] Address: [address] [place], [place] [address] Performed By: #### 1 988-5, , ####[facility] LABCLIA [id number] [place] [address] [place] Anion gap [Moles/Vol] 12 mmol/L Normal 9-18 [facility] Comment on above: Order Comment: Speci men Type: BLOOD SPECIMENOrdering Facility: [facility] Address: [address] [place] [address] Performed By: #### 1 988-5, , ####[facility] LABCLIA [id number] [place] [address] [place] Calcium [Mass/Vol] 9.5 mg/dL Normal 8.5-10.2 [facility] Comment on above: Order Comment: Speci men Type: BLOOD SPECIMENOrdering Facility: [facility] Address: [address] [place], [place] [address] Performed By: #### 1 988-5, , ####[facility] LABCLIA [id number] [place] [address] [place] Chloride [Moles/Vol] 103 mmol/L Normal 97-105 [facility] Comment on above: Order Comment: Speci men Type: BLOOD SPECIMENOrdering Facility: [facility] Address: [address] [place], [place] [address] Performed By: #### 1 988-5, , ####[facility] LABCLIA [id number] [place] [address] [place] CO2 [Moles/Vol] 21 mmol/L Low 22-30 [facility] Comment on above: Order Comment: Speci men Type: BLOOD SPECIMENOrdering Facility: [facility] Address: [address] [place] [id number] Performed By: #### 1 988-5, , ####[facility] LABCLIA [id number] [place] [address] [place] Creatinine [Mass/Vol] 0.77 mg/dL Normal 0.58-0.96 [facility] Comment on above: Order Comment: Speci men Type: BLOOD SPECIMENOrdering Facility: [facility] Address: [address] Performed By: #### 1 988-5, , ####[facility] LABIA [id number] [place] [address] [place] ESTIMATED GLOMERULAR FILTRATION RATE 107 mL/min/1.73m??? Normal >=60 [facility] Comment on above: Order Comment: Speci men Type: BLOOD SPECIMENOrdering Facility: [facility] Address: [address] [place] [address] Result Comment: Marisa mated Glomerular Filtration Rate [...] GFR. Performed By: #### 1 988-5, , ####[facility] LABCLIA [id number] [place] [address] [place] Glucose [Mass/Vol] 102 mg/dL High 74-99 [facility] Comment on above: Order Comment: Speci men Type: BLOOD SPECIMENOrdering Facility: [facility] Address: [address] [place] [address] Result Comment: The [place] Diabetes Association (ADA) provides guidance for cutoff [...] Standards of Medical Care in Diabetes 2016, [place] [employer] Association. Diabetes Care. 2016.39(Suppl 1). Performed By: #### 1 988-5, 33050-6, 41892-4 ####[facility] LABIA [id number] [place] [address] [place] Phosphate [Mass/Vol] 3.5 mg/dL Normal 2.7-4.8 [facility] Comment on above: Order Comment: Speci men Type: BLOOD SPECIMENOrdering Facility: [facility] Address: [address] [place] [phone] Performed By: #### 1 988-5, , ####[facility] [id number] [place] [address] [place] Potassium [Moles/Vol] 4.3 mmol/L Normal 3.7-5.1 [facility] Comment on above: Order Comment: Speci men Type: BLOOD SPECIMENOrdering Facility: [facility] Address: [address] [place] [phone] Performed By: #### 1 988-5, , 02186-8 ####[facility] LABIA [id number] [place] [address] [place] Sodium [Moles/Vol] 136 mmol/L Normal 136-144 [facility] Comment on above: Order Comment: Speci men Type: BLOOD SPECIMENOrdering Facility: [facility] Address: [address] [place] [phone] Performed By: #### 1 988-5, 43883-9, 70338-0 ####[facility] LABCLIA [id number] [place] [address] [place] Urea nitrogen [Mass/Vol] 11 mg/dL Normal 7-21 [facility] Comment on above: Order Comment: Speci men Type: BLOOD SPECIMENOrdering Facility: [facility] Address: [address] [place] [address] Performed By: #### 1 988-5, 32751-3, 48940-6 ####[facility] LABCLIA [id number] [address] [place] TYPE + SCREEN PRENATALon ABO O Normal [facility] Comment on above: Order Comment: Speci men Type: BLOOD SPECIMENOrdering Facility: [facility] Address: [address] [place], [place] [address] Performed By: #### T SPN ####[facility] BLOOD BANKCLIA [id number] [place] [address] [place] HISTORICAL AB SCR STATUS Negative Normal [facility] Comment on above: Order Comment: Speci men Type: BLOOD SPECIMENOrdering Facility: [facility] Address: [address] [place] [address] Performed By: #### T SPN ####[facility] BLOOD BANKCLIA [id number] [place] [address] [place] Rh Nom (Bld) Positive Normal [facility] Comment on above: Order Comment: Speci men Type: BLOOD SPECIMENOrdering Facility: [facility] Address: [address] [place], [place] [address] Performed By: #### T SPN ####[facility] BLOOD BANKCLIA [id number] [place] [address] [place] TYPE AND SCREEN EXPIRATION 03/18/2023 23:59 Normal [facility] Comment on above: Order Comment: Speci men Type: BLOOD SPECIMENOrdering Facility: [facility] Address: [address] [place] [address] Performed By: #### T SPN ####CC [facility] BLOOD BANKCLIA [id number] [place] [address] [place] US PREG TRANSABD <14 WKS LTD on 03-15-2023 US PREG TRANSABD <14 WKS LTD * * *Final Report* * * DATE OF EXAM: Mar 15 2023 2:48PM [facility] - [place] PREG TRANSABD <14 WKS [...] sac: Present - Embryo: Single present - [place] rump length: 1.83 cm, corresponding gestational age 8 weeks, 2 days -Gestational heart rate: present 161-166 bpm -Subgestational hematoma: Absent Right ovary: Not seen. Left ovary: - Size: 2.4 x 1.3 x 2.7 cm - Normal sonographic appearance with physiologic follicles. Pelvis free fluid: None. IMPRESSION: Single, live intrauterine gestation. Estimated Gestational Age: 8 weeks, 2 days by crown rump length. 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 Left ovary: - Size: 2.4 x 1.3 x 2.7 cm - Normal sonographic appearance with physiologic follicles. Pelvis free fluid: None. IMPRESSION: Single, live intrauterine gestation. Estimated Gestational Age: 8 weeks, 2 days by crown rump length. Community Outreach Manager: JAYMIE Transcribe Date/Time: Mar 15 2023 3:17P Dictated by : MARY ANN ESQUIVEL MD This examination was interpreted and the report reviewed and electronically signed by: MARY ANN ESQUIVEL MD on Mar 15 2023 3:24PM EST [id number] Normal [facility] CASE MGT INIT ASSES 2022 CASE MGT INIT [facility] HNO ID: [id number] Author: Adwoa Hodge RN Service: ? Author Type: Registered Nurse Type: Care Mgt Initial Assessment Filed: 03/14/2023 1:05 PM Note Text: CARE MANAGEMENT: ASSESSMENT AND DISCHARGE PLAN SERVICE DATE: March 14, 2023 SERVICE TIME: 12:53 PM PCP: Racquel Simpson Primary Contact: Extended Emergency Contact Information Primary Emergency Contact: Acres,Karissa Mobile Relation: Mother Admission Status: Inpatient Insurance Provider: [employer] Needs Prior to Discharge: To Be Determined PCP: Racquel Simpson [phone] f. [phone] Post-Acute Discharge Plan: CM met with pt [...] does not use drugs. Primary care paged [facility] regarding recommended imaging for nephrolithiasis in the setting of 1st trimester of . This patient has been screened for Care Management Transitional Planning Services. At this time, it does not appear this patient will require transition planning services. Should this change, and the patient require transition planning services during this admission, please call [phone]. NO SKILLED NEEDS SIGNATURE: Adwoa Hodge RN PATIENT NAME: Qian Clements DATE: March 14, 2023 TIME: 12:53 PM CONTACT #: [phone] Normal [facility] CBC panel Auto (Bld)on 03-14 Erythrocyte distribution width (RBC) [Ratio] 13.6 % Normal 11.5-15.0 [facility] Comment on above: Order Comment: Speci men Type: BLOOD SPECIMENOrdering Facility: [facility] Address: [address] [place] [phone] Performed By: #### 5 8410-2 ####[facility] LABCLIA [id number] [facility] [id number] [address] [place] Hematocrit (Bld) [Volume fraction] 31.0 % Low 36.0-46.0 [facility] Comment on above: Order Comment: Speci men Type: BLOOD SPECIMENOrdering Facility: [facility] Address: [address] [place] [address] Performed By: #### 5 8410-2 ####[facility] [id number] [place] [address] [place] Hemoglobin (Bld) [Mass/Vol] 10.4 g/dL Low 11.5-15.5 [facility] Comment on above: Order Comment: Speci men Type: BLOOD SPECIMENOrdering Facility: [facility] Address: [address] [place] [address] Performed By: #### 5 8410-2 ####[facility] [id number] [place] [address] [place] MCH (RBC) [Entitic mass] 26.5 pg Normal 26.0-34.0 [facility] Comment on above: Order Comment: Speci men Type: BLOOD SPECIMENOrdering Facility: [facility] Address: [address] [place], [place] [address] Performed By: #### 5 8410-2 ####[facility] [id number] [address] [place] MCHC (RBC) [Mass/Vol] 33.5 g/dL Normal 30.5-36.0 [facility] Comment on above: Order Comment: Speci men Type: BLOOD SPECIMENOrdering Facility: [facility] Address: [address] [place], [place] [address] Performed By: #### 5 8410-2 ####[facility] [id number] [place] [address] [place] MCV (RBC) [Entitic vol] 78.9 fL Low 80.0-100.0 [facility] Comment on above: Order Comment: Speci men Type: BLOOD SPECIMENOrdering Facility: [facility] Address: [address] [place], [place] [address] Performed By: #### 5 8410-2 ####[facility] LABCLIA [id number] [place] [address] [place] Nucleated RBC (Bld) [#/Vol] 10*3/uL Normal <0.01 [facility] Comment on above: Order Comment: Speci men Type: BLOOD SPECIMENOrdering Facility: [facility] Address: [address] [place] [address] Performed By: #### 5 8410-2 ####[facility] LABIA [id number] [place] [address] [place] Platelet mean volume (Bld) [Entitic vol] 9.0 fL Normal 9.0-12.7 [facility] Comment on above: Order Comment: Speci men Type: BLOOD SPECIMENOrdering Facility: [facility] Address: [address] [place] [address] Performed By: #### 5 8410-2 ####[facility] LABIA [id number] [place] [address] [place] Platelets (Bld) [#/Vol] 415 10*3/uL High 150-400 [facility] Comment on above: Order Comment: Speci men Type: BLOOD SPECIMENOrdering Facility: [facility] Address: [address] [place] [address] Performed By: #### 5 8410-2 ####[facility] LABIA [id number] [place] [address] [place] RBC (Bld) [#/Vol] 3.93 10*6/uL Normal 3.90-5.20 [facility] Comment on above: Order Comment: Speci men Type: BLOOD SPECIMENOrdering Facility: [facility] Address: [address] [place] [address] Performed By: #### 5 8410-2 ####[facility] LABIA [id number] [place] [address] [place] WBC (Bld) [#/Vol] 11.23 10*3/uL High 3.70-11.00 [facility] Comment on above: Order Comment: Speci men Type: BLOOD SPECIMENOrdering Facility: [facility] Address: [address] [place] [address] Performed By: #### 5 8410-2 ####[facility] LABCLIA [id number] [place] [address] [place] Magnesium SerPl-mCncon 03-14 Magnesium [Mass/Vol] 1.9 mg/dL Normal 1.7-2.3 [facility] Comment on above: Order Comment: Speci men Type: BLOOD SPECIMENOrdering Facility: [facility] Address: [address] [place] [address] Performed By: #### 1 9123-9, 92437-3 ####[facility] LABCLIA [id number] [place] [address] [place] Renal function 2000 panelon 03-14-2023 Albumin [Mass/Vol] 3.6 g/dL Low 3.9-4.9 [facility] Comment on above: Order Comment: Speci men Type: BLOOD SPECIMENOrdering Facility: [facility] Address: [address] [place], [place] [address] Performed By: #### 1 9123-9, 48761-4 ####[facility] LABCLIA [id number] [place] [address] [place] Anion gap [Moles/Vol] 13 mmol/L Normal 9-18 [facility] Comment on above: Order Comment: Speci men Type: BLOOD SPECIMENOrdering Facility: [facility] Address: [address] [place], [place] [address] Performed By: #### 1 9123-9, 19325-0 ####[facility] LABCLIA [id number] [address] [place] [address] [place] Calcium [Mass/Vol] 9.2 mg/dL Normal 8.5-10.2 [facility] Comment on above: Order Comment: Speci men Type: BLOOD SPECIMENOrdering Facility: [facility] Address: [address] [place], [place] [address] Performed By: #### 1 9123-9, 08185-2 ####[facility] LABCLIA [id number] [place] [address] [place] Chloride [Moles/Vol] 102 mmol/L Normal 97-105 [facility] Comment on above: Order Comment: Speci men Type: BLOOD SPECIMENOrdering Facility: [facility] Address: [address] [place], [place] [address] Performed By: #### 1 9123-9, 16304-8 ####[facility] LABCLIA [id number] [place] [address] [place] CO2 [Moles/Vol] 19 mmol/L Low 22-30 [facility] Comment on above: Order Comment: Speci men Type: BLOOD SPECIMENOrdering Facility: [facility] Address: [address] [place] [address] Performed By: #### 1 9123-9, 34282-2 ####[facility] LABCLIA [id number] [place] [address] [place] Creatinine [Mass/Vol] 0.75 mg/dL Normal 0.58-0.96 [facility] Comment on above: Order Comment: Speci men Type: BLOOD SPECIMENOrdering Facility: [facility] Address: [address] [place], [place] [address] Performed By: #### 1 9123-9, 96071-6 ####[facility] LABCLIA [id number] [place] [address] [place] ESTIMATED GLOMERULAR FILTRATION RATE 110 mL/min/1.73m??? Normal >=60 [facility] Comment on above: Order Comment: Speci men Type: BLOOD SPECIMENOrdering Facility: [facility] Address: [address] [phone] Result Comment: Marisa mated Glomerular Filtration Rate [...] actual GFR. Performed By: #### 1 9123-9, 72357-9 ####[facility] LABIA [id number] [place] [address] [place] Glucose [Mass/Vol] 131 mg/dL High 74-99 [facility] Comment on above: Order Comment: Tee francisco Type: BLOOD SPECIMENOrdering Facility: [facility] Address: [address] [address] Result Comment: The [place] Diabetes Association (ADA) provides guidance for cutoff [...] Standards of Medical Care in Diabetes 2016, [place] Diabetes [employer]. Diabetes Care. 2016.39(Suppl 1). Performed By: #### 1 9123-9, 19858-1 ####[facility] LABIA [id number] [place] [address] [place] Phosphate [Mass/Vol] 2.6 mg/dL Low 2.7-4.8 [facility] Comment on above: Order Comment: Tee francisco Type: BLOOD SPECIMENOrdering Facility: [facility] Address: [address] [phone] Performed By: #### 1 9123-9, 04142-0 ####[facility] LABIA [id number] [place] [address] [place] Potassium [Moles/Vol] 3.7 mmol/L Normal 3.7-5.1 [facility] Comment on above: Order Comment: Speci men Type: BLOOD SPECIMENOrdering Facility: [facility] Address: [address] [place] [address] Performed By: #### 1 9123-9, 63804-1 ####[facility] LABIA [id number] [place] [address] [place] Sodium [Moles/Vol] 134 mmol/L Low 136-144 [facility] Comment on above: Order Comment: Speci men Type: BLOOD SPECIMENOrdering Facility: [facility] Address: [address] [place] [address] Performed By: #### 1 9123-9, 36760-6 ####[facility] LABIA [id number] [place] [address] [place] Urea nitrogen [Mass/Vol] 7 mg/dL Normal 7-21 [facility] Comment on above: Order Comment: Speci men Type: BLOOD SPECIMENOrdering Facility: [facility] Address: [address] [place] [address] Performed By: #### 1 9123-9, 99295-8 ####[facility] LABIA [id number] [place] [address] [place] US KIDNEY/BLADDERon 03-14-20 US KIDNEY/BLADDER * * *Final Report* * * DATE OF EXAM: Mar 14 2023 10:55AM [facility] [place] [facility]/BLADDER / PROCEDURE REASON: Pyelonephritis, [...] IMPRESSION: NO HYDRONEPHROSIS OR SHADOWING RENAL CALCULUS. Community Outreach Manager: JAYMIE Transcribe Date/Time: Mar 14 2023 12:32P Dictated by : ARTURO ALVARADO DO This examination was interpreted and the report reviewed and electronically signed by: ARTURO ALVARADO DO on Mar 14 2023 12:34PM EST [id number] Normal [facility] BETA HCG, QUANTITATIVE FOR E Don 03-13-2023 HCG.beta subunit Qn m[IU]/mL High <5.0 [facility] Comment on above: Order Comment: Speci men Type: BLOOD SPECIMENOrdering Facility: [facility] Address: [address] [place] [address] Result Comment: SO TITATIVE HCG NORMAL RANGES Weeks of Gestation (Weeks Since LMP) 3 Weeks (5.8-71.2 mIU/mL) 4 Weeks (9.5-750 mIU/mL) 5 Weeks (217-7138 mIU/mL) 6 Weeks (158-30292 mIU/mL) 7 Weeks (3697-045850 mIU/mL) 8 Weeks (60084-079529 mIU/mL) 9 Weeks (46428-973745 mIU/mL) 10 Weeks (97331-705962 mIU/mL) 12 Weeks (35892-269682 mIU/mL) Referenced to 4th [facility] Performed By: #### 2 4323-8, 3040-3, 2276-4, 1987-, HCGED ####[facility] LABCLIA [id number] [place] [address] [place] C-Reactive Proteinon 023 CRP [Mass/Vol] 94.7 mg/L High 0.0-5.0 [facility] Comment on above: Performed By: #### L IP, SED, CP, CRP, CDP #### [facility] [address] [place] [address] Health Assistant: Aaron Arteaga MD #### [place] #### [facility] [address] [place], [place] [address] Health Assistant: Gino Wing MD CBC W Auto Differential pane l (Bld)on 03-13-2023 Basophils (Bld) [#/Vol] 0.03 10*3/uL Normal <0.11 [facility] Comment on above: Order Comment: Speci men Type: BLOOD SPECIMENOrdering Facility: [facility] Address: [address] [address] Performed By: #### 4 537-7, 94388-0 ####[facility] LABCLIA [id number] [place] [address] [place] Basophils/100 WBC (Bld) 0.2 % Normal [facility] Comment on above: Order Comment: Speci men Type: BLOOD SPECIMENOrdering Facility: [facility] Address: [address] [address] Performed By: #### 4 537-7, 03146-8 ####[facility] LABCLIA [id number] [place] [address] [place] Differential cell count method Nom (Bld) Auto Normal [facility] Comment on above: Order Comment: Speci men Type: BLOOD SPECIMENOrdering Facility: [facility] Address: [address] [address] Performed By: #### 4 537-7, 60155-3 ####[facility] LABCLIA [id number] [place] [address] [place] Eosinophils (Bld) [#/Vol] 10*3/uL Normal <0.46 [facility] Comment on above: Order Comment: Speci men Type: BLOOD SPECIMENOrdering Facility: [facility] Address: [address] [place] [address] Performed By: #### 4 537-7, 02074-4 ####[facility] LABIA [id number] [place] [address] [place] Eosinophils/100 WBC (Bld) 0.1 % Normal [facility] Comment on above: Order Comment: Speci men Type: BLOOD SPECIMENOrdering Facility: [facility] Address: [address] [place] [address] Performed By: #### 4 537-7, 74747-2 ####[facility] LABIA [id number] [address] [place] Erythrocyte distribution width (RBC) [Ratio] 13.5 % Normal 11.5-15.0 [facility] Comment on above: Order Comment: Speci men Type: BLOOD SPECIMENOrdering Facility: [facility] Address: [address] [place] [address] Performed By: #### 4 537-7, 09164-3 ####[facility] LABIA [id number] [place] [address] [place] Hematocrit (Bld) [Volume fraction] 32.4 % Low 36.0-46.0 [facility] Comment on above: Order Comment: Speci men Type: BLOOD SPECIMENOrdering Facility: [facility] Address: [address] [place], [place] [address] Performed By: #### 4 537-7, 05641-9 ####[facility] LABIA [id number] [place] [address] [place] Hemoglobin (Bld) [Mass/Vol] 10.5 g/dL Low 11.5-15.5 [facility] Comment on above: Order Comment: Speci men Type: BLOOD SPECIMENOrdering Facility: [facility] Address: [address] [place] [address] Performed By: #### 4 537-7, 91376-8 ####[facility] LABCLIA [id number] [place] [address] [place] Immature granulocytes (Bld) [#/Vol] 0.11 10*3/uL High <0.10 [facility] Comment on above: Order Comment: Speci men Type: BLOOD SPECIMENOrdering Facility: [facility] Address: [address] [place] [address] Performed By: #### 4 537-7, 19524-1 ####[facility] LABCLIA [id number] [place] [address] [place] Immature granulocytes/100 WBC (Bld) 0.8 % Normal [facility] Comment on above: Order Comment: Speci men Type: BLOOD SPECIMENOrdering Facility: [facility] Address: [address] [place] [address] Performed By: #### 4 537-7, 35580-3 ####[facility] LABCLIA [id number] [place] [address] [place] Lymphocytes (Bld) [#/Vol] 1.86 10*3/uL Normal 1.00-4.00 [facility] Comment on above: Order Comment: Speci men Type: BLOOD SPECIMENOrdering Facility: [facility] Address: [address] [place] [address] Performed By: #### 4 537-7, 10451-4 ####[facility] LABCLIA [id number] [place] [address] [place] Lymphocytes/100 WBC (Bld) 13.0 % Normal [facility] Comment on above: Order Comment: Speci men Type: BLOOD SPECIMENOrdering Facility: [facility] Address: [address] [place] [address] Performed By: #### 4 537-7, 77791-2 ####[facility] LABIA [id number] [place] [address] [place] MCH (RBC) [Entitic mass] 26.6 pg Normal 26.0-34.0 [facility] Comment on above: Order Comment: Speci men Type: BLOOD SPECIMENOrdering Facility: [facility] Address: [address] [place] [address] Performed By: #### 4 537-7, 52014-4 ####[facility] LABIA [id number] [place] [address] [place] MCHC (RBC) [Mass/Vol] 32.4 g/dL Normal 30.5-36.0 [facility] Comment on above: Order Comment: Speci men Type: BLOOD SPECIMENOrdering Facility: [facility] Address: [address] [place] [address] Performed By: #### 4 537-7, 75529-6 ####[facility] LABIA [id number] [place] [address] [place] MCV (RBC) [Entitic vol] 82.0 fL Normal 80.0-100.0 [facility] Comment on above: Order Comment: Speci men Type: BLOOD SPECIMENOrdering Facility: [facility] Address: [address] [place], [place] [address] Performed By: #### 4 537-7, 07805-5 ####[facility] LABIA [id number] [place] [address] [place] Monocytes (Bld) [#/Vol] 1.09 10*3/uL High <0.87 [facility] Comment on above: Order Comment: Speci men Type: BLOOD SPECIMENOrdering Facility: [facility] Address: [address] Performed By: #### 4 537-7, 68585-2 ####[facility] LABCLIA [id number] [place] [address] [place] Monocytes/100 WBC (Bld) 7.6 % Normal [facility] Comment on above: Order Comment: Speci men Type: BLOOD SPECIMENOrdering Facility: [facility] Address: [address] Performed By: #### 4 537-7, 51417-7 ####[facility] LABCLIA [id number] [place] [address] [place] Neutrophils (Bld) [#/Vol] 11.15 10*3/uL High 1.45-7.50 [facility] Comment on above: Order Comment: Speci men Type: BLOOD SPECIMENOrdering Facility: [facility] Address: [address] Performed By: #### 4 537-7, 85428-5 ####[facility] LABCLIA [id number] [place] [address] [place] Neutrophils/100 WBC (Bld) 78.3 % Normal [facility] Comment on above: Order Comment: Speci men Type: BLOOD SPECIMENOrdering Facility: [facility] Address: [address] [place] [address] Performed By: #### 4 537-7, 20327-4 ####[facility] LABCLIA [id number] [place] [address] [place] Nucleated RBC (Bld) [#/Vol] 10*3/uL Normal <0.01 [facility] Comment on above: Order Comment: Speci men Type: BLOOD SPECIMENOrdering Facility: [facility] Address: [address] Performed By: #### 4 537-7, 51155-3 ####[facility] LABCLIA [id number] [place] [address] [place] Nucleated RBC/100 WBC (Bld) [Ratio] 0.0 /100 WBC Normal [facility] Comment on above: Order Comment: Speci men Type: BLOOD SPECIMENOrdering Facility: [facility] Address: [address] [place] [address] Performed By: #### 4 537-7, 57579-2 ####[facility] LABIA [id number] [place] [address] [place] Platelet mean volume (Bld) [Entitic vol] 8.9 fL Low 9.0-12.7 [facility] Comment on above: Order Comment: Speci men Type: BLOOD SPECIMENOrdering Facility: [facility] Address: [address] [place] [address] Performed By: #### 4 537-7, 31209-6 ####[facility] [id number] [place] [address] [place] Platelets (Bld) [#/Vol] 378 10*3/uL Normal 150-400 [facility] Comment on above: Order Comment: Speci men Type: BLOOD SPECIMENOrdering Facility: [facility] Address: [address] [place] [address] Performed By: #### 4 537-7, 45971-8 ####[facility] LABIA [id number] [place] [address] [place] RBC (Bld) [#/Vol] 3.95 10*6/uL Normal 3.90-5.20 [facility] Comment on above: Order Comment: Speci men Type: BLOOD SPECIMENOrdering Facility: [facility] Address: [address] [place] [address] Performed By: #### 4 537-7, 01343-8 ####[facility] LABIA [id number] [place] [address] [place] WBC (Bld) [#/Vol] 14.26 10*3/uL High 3.70-11.00 [facility] Comment on above: Order Comment: Speci men Type: BLOOD SPECIMENOrdering Facility: [facility] Address: [address] [phone] Performed By: #### 4 537-7, 54553-7 ####[facility] LABCLIA [id number] [address] [place] CONSULT PROGon 03-13-2023 CONSULT PROG HNO ID: [id number] Author: Robyn Bolton RPh Service: Pharmacy Author [...] there are questions. Robyn Bolton RPh Normal [facility] CONSULT PROG HNO ID: [id number] Author: Ev Pryor RPh Service: Pharmacy Author [...] questions, please contact Ev Pryor RPh at [phone]. Age: [age] year old Allergies: ALLERGIES Allergen [...] 9.34 Vancomycin Levels: No results found for: CARLY Pryor RPh Normal [facility] CRP SerPl-mCncon 03-13-2023 CRP [Mass/Vol] 20.0 mg/dL High <0.9 [facility] Comment on above: Order Comment: Speci men Type: BLOOD SPECIMENOrdering Facility: [facility] Address: [address] [place] [address] [place] [address] Performed By: #### 2 1524-8, 0-3, 2275-11, 1987-12, HCGED ####[facility] LABCLIA [id number] [place] [id number] [place] Comprehensive metabolic 2000 panelon 03-13-2023 Albumin [Mass/Vol] 3.6 g/dL Low 3.9-4.9 [facility] Comment on above: Order Comment: Speci men Type: BLOOD SPECIMENOrdering Facility: [facility] Address: [address] [place], [place] [address] Performed By: #### 2 4323-8, 3039-3, 2275-11, 1987-12, HCGED ####[facility] LABCLIA [id number] [place] [address] [place] ALP [Catalytic activity/Vol] 101 U/L Normal 34-123 [facility] Comment on above: Order Comment: Speci men Type: BLOOD SPECIMENOrdering Facility: [facility] Address: [address] [place], [place] [address] Performed By: #### 2 4323-8, 3039-3, 2275-11, 1987-12, HCGED ####[facility] LABIA [id number] [place] [address] [place] ALT [Catalytic activity/Vol] 22 U/L Normal 7-38 [facility] Comment on above: Order Comment: Speci men Type: BLOOD SPECIMENOrdering Facility: [facility] Address: [address] [place], [place] [address] Performed By: #### 2 4323-8, 3039-3, 2275-11, 1987-12, HCGED ####[facility] LABIA [id number] [place] [address] [place] Anion gap [Moles/Vol] 14 mmol/L Normal 9-18 [facility] Comment on above: Order Comment: Speci men Type: BLOOD SPECIMENOrdering Facility: [facility] Address: [address] [place] [address] Performed By: #### 2 4323-8, 3040-3, 2275-11, 1987-12, HCGED ####[facility] LABCLIA [id number] [place] [address] [place] AST [Catalytic activity/Vol] 16 U/L Normal 13-35 [facility] Comment on above: Order Comment: Speci men Type: BLOOD SPECIMENOrdering Facility: [facility] Address: [address] [place] [address] Performed By: #### 2 4323-8, 3039-3, 2275-11, 1987-12, HCGED ####[facility] LABCLIA [id number] [place] [address] [place] Bilirubin [Mass/Vol] 0.2 mg/dL Normal 0.2-1.3 [facility] Comment on above: Order Comment: Speci men Type: BLOOD SPECIMENOrdering Facility: [facility] Address: [address] [place], [place] [address] Performed By: #### 2 4323-8, 3039-3, 2275-11, 1987-12, HCGED ####[facility] LABIA [id number] [place] [address] [place] Calcium [Mass/Vol] 8.8 mg/dL Normal 8.5-10.2 [facility] Comment on above: Order Comment: Speci men Type: BLOOD SPECIMENOrdering Facility: [facility] Address: [address] Performed By: #### 2 4323-8, 3039-3, 2275-11, 1987-12, HCGED ####[facility] LABIA [id number] [place] [address] [place] Chloride [Moles/Vol] 103 mmol/L Normal 97-105 [facility] Comment on above: Order Comment: Speci men Type: BLOOD SPECIMENOrdering Facility: [facility] Address: [address] [phone] Performed By: #### 2 4323-8, 3039-3, 2275-11, 1987-12, HCGED ####[facility] LABCLIA [id number] [place] [id number] [place] CO2 [Moles/Vol] 19 mmol/L Low 22-30 [facility] Comment on above: Order Comment: Speci men Type: BLOOD SPECIMENOrdering Facility: [facility] Address: [address] [place], [place] [address] Performed By: #### 2 4323-8, 3, 2275-11, 1987-12, HCGED ####[facility] LABCLIA [id number] [place] [address] [place] Creatinine [Mass/Vol] 0.77 mg/dL Normal 0.58-0.96 [facility] Comment on above: Order Comment: Speci men Type: BLOOD SPECIMENOrdering Facility: [facility] Address: [address] [place] [address] Performed By: #### 2 4323-8, 3, 2275-11, 1987-12, HCGED ####[facility] LABIA [id number] [place] [address] [place] ESTIMATED GLOMERULAR FILTRATION RATE 107 mL/min/1.73m??? Normal >=60 [facility] Comment on above: Order Comment: Speci men Type: BLOOD SPECIMENOrdering Facility: [facility] Address: [address] [place] [address] Result Comment: Marisa mated Glomerular Filtration Rate [...] actual GFR. Performed By: #### 2 4323-8, 0-3, 2275-11, 1987-12, HCGED ####[facility] LABCLIA [id number] [address] [address] [place] Glucose [Mass/Vol] 126 mg/dL High 74-99 [facility] Comment on above: Order Comment: Speci men Type: BLOOD SPECIMENOrdering Facility: [facility] Address: [address] [phone] Result Comment: The [place] [employer] (ADA) provides guidance for cutoff [...] Standards of Medical Care in Diabetes 2016, [place] [employer]. Diabetes Care. 2016.39(Suppl 1). Performed By: #### 2 4323-8, 3039-3, 2275-11, 1987-12, HCGED ####[facility] LABCLIA [id number] [address] [address] [place] Potassium [Moles/Vol] 3.3 mmol/L Low 3.7-5.1 [facility] Comment on above: Order Comment: Speci men Type: BLOOD SPECIMENOrdering Facility: [facility] Address: [address] [place] [address] Performed By: #### 2 4323-8, 3039-3, 2275-11, 1987-12, HCGED ####[facility] LABCLIA [id number] [address] [address] [place] [place] Protein [Mass/Vol] 6.5 g/dL Normal 6.3-8.0 [facility] Comment on above: Order Comment: Speci men Type: BLOOD SPECIMENOrdering Facility: [facility] Address: [address] [place] [phone] Performed By: #### 2 4323-8, 3039-3, 2275-11, 1987-12, HCGED ####[facility] LABIA [id number] [place] [id number] [place] Sodium [Moles/Vol] 136 mmol/L Normal 136-144 [facility] Comment on above: Order Comment: Speci men Type: BLOOD SPECIMENOrdering Facility: [facility] Address: [address] [place], [place] [phone] Performed By: #### 2 4323-8, 3, 2275-11, 1987-12, HCGED ####[facility] [id number] [place] [address] [place] Urea nitrogen [Mass/Vol] 8 mg/dL Normal 7-21 [facility] Comment on above: Order Comment: Speci men Type: BLOOD SPECIMENOrdering Facility: [facility] Address: [address] [place] [phone] Performed By: #### 2 4323-8, 3039-10, 2275-11, 1987-12, HCGED ####[facility] [id number] [place] [id number] [place] ED NOTEon 03-13-2023 ED NOTE HNO ID: [id number] Author: Kj Carter, CATHI Service: Emergency Medicine Author Type: Registered Nurse Type: ED Notes Filed: 03/13/2023 11:48 AM Note Text: Pt was to be a tranfers from outside hospital for admission, left AMA because felt that it was taking to long for transfer. Elevated WBC, back pain, nausea and vomiting, no diarrhea, no SOB 8 weeks . Normal [facility] ED PROV NOTEon 03-13-2023 ED PROV NOTE HNO ID: [id number] Author: Kelli Musa MD Service: Emergency Medicine [...] fevers, she opted to report to the [place] ED. While there, she was noted to [...] Abnormal; Notable for the following components: Specific Allison, Ur 1.032 (*) 1.005 - 1.030 Protein, Urine 1+ (*) Trace, (more content not included)... Normal [facility] ESR Westergren method (Bld) [Velocity]on 03-13-2023 ESR (Bld) [Velocity] 65 mm/h High 0-20 [facility] Comment on above: Order Comment: Speci men Type: BLOOD SPECIMENOrdering Facility: [facility] Address: [address] [place] [address] Performed By: #### 4 537-7, 69638-7 ####[facility] LABCLIA [id number] [address] Ferritinon 03-13-2023 Ferritin [Mass/Vol] 48 ng/mL Normal 13-150 [facility] Comment on above: Performed By: #### L IP, SED, CP, CRP, CDP #### [facility] [address] [place] [address] Health Assistant: Aaron Arteaga MD #### FERI #### [address] [address] Health Assistant: Gino Wing MD Ferritin SerPl-mCncon 2022 Ferritin [Mass/Vol] 149.0 ng/mL Normal 14.7-205.1 [facility] Comment on above: Order Comment: Speci men Type: BLOOD SPECIMENOrdering Facility: [facility] Address: [address] [place] [address] Performed By: #### 2 4323-8, 3040-3, 2276-4, 1987-12, HCGED ####[facility] LABCLIA [id number] [address] [place] HISTORY PHYSICALon HISTORY PHYSICAL HNO ID: [id number] Author: Manoj Ramos MD Service: General Internal Medicine Author Type: Physician Type: HANDP Filed: 03/13/2023 8:37 PM Note Text: HISTORY AND PHYSICAL GENERAL INTERNAL MEDICINE After 5 PM on weekdays and after 3 PM on weekends cristi [facility] at [facility] [phone] Admit Date: 03/13/2023 SERVICE DATE: 03/13/2023 SERVICE [...] flank pain, and she was transferred to [facility] ED. After drawing blood and taking urine [...] without mu (more content not included)... Normal [facility] Lipase SerPl-cCncon 03-13-20 23 Lipase [Catalytic activity/Vol] 19 U/L Normal 16-61 [facility] Comment on above: Order Comment: Speci men Type: BLOOD SPECIMENOrdering Facility: [facility] Address: [address] [place] [address] Performed By: #### 2 4323-8, 3040-3, 2276-4, 1987-12, HCGED ####[facility] LABCLIA [id number] [address] OF [facility] NURSING PROGon 03-13-2023 NURSING PROG HNO ID: [id number] Author: Mini Kaplan RN Service: ? Author Type: Registered Nurse Type: Nursing Progress Note Filed: 03/13/2023 5:11 PM Note Text: Transfer Note: PATIENT NAME: Qian Clements Patient Location: [place] [address]/[facility] [place] [place] Room: [place] [address] Patient transferred into room/unit [facility] in stable condition. Actions taken: Patient belongings with patient, bed low and locked, side rails up X2, and call light within reach. Normal [facility] Sedimentation Rateon 023 Sedimentation Rate 58 mm/Hr High 0-20 [facility] Comment on above: Performed By: #### L IP, SED, CP, CRP, CDP #### [facility] [address] [place] [address] Health Assistant: Aaron Arteaga MD #### FERI #### [facility] [address] [place] [phone] Health Assistant: Gino Wing MD Urinalysis complete pnl Uron [...] j carlos: ORGANISM ID: 1 Lactobacillus jensenii Heidelberg count unreliable due to antimicrobial inhibition No further workup Normal [facility] Comment on above: Order Comment: Speci men Type: URINE SPECIMENOrdering Facility: [facility] Address: [address] [place] [address] Performed By: #### 2 4356-8 ####[facility] LABCLIA [id number] [address] [place] XR CHEST 1V FRONTAL [...] Stable nonenlarged cardiomediastinal silhouette. IMPRESSION: See result. Community Outreach Manager: PSCB Transcribe Date/Time: Mar 13 2023 1:50P Dictated by : YULY GAONA MD This examination was interpreted and the report reviewed and electronically signed by: YULY GAONA MD on Mar 13 2023 1:51PM EST [id number] Normal [facility] CBC with Diffon 03-12-2023 Abs. Basophil 0.00 k/uL Normal 0.0-0.2 [facility] Comment on above: Performed By: #### L IP, SED, CP, CRP, CDP #### [facility] [address] [place] [phone] ( Health Assistant: Aaorn Arteaga MD #### FERI #### [address] [phone] Health Assistant: Gino Wing MD Abs.Neutrophil (Seg) 18.36 k/uL High 2.5-7.0 [facility] Comment on above: Performed By: #### L IP, SED, CP, CRP, CDP #### [facility] [address] [place] [address]88[address] ( Health Assistant: Aaron Arteaga MD #### FERI #### [place] [phone] Health Assistant: Gino Wing MD Basophils/100 WBC (Bld) 0 % Normal 0-2 [facility] Comment on above: Performed By: #### L IP, SED, CP, CRP, CDP #### [facility] [address] [place] [phone] Health Assistant: Aaron Arteaga MD #### FERI #### [place] [phone] Health Assistant: Gino Wing MD Eosinophils (Bld) [#/Vol] 0.00 10*3/uL Normal 0.0-0.4 [facility] Comment on above: Performed By: #### L IP, SED, CP, CRP, CDP #### [facility] [address] [place] [address] ( Health Assistant: Aaron Arteaga MD #### FERI #### [address] [phone] Health Assistant: Gino Wing MD Eosinophils/100 WBC (Bld) 0 % Normal 0-5 [facility] Comment on above: Performed By: #### L IP, SED, CP, CRP, CDP #### [facility] [address] [place] [address]88[address] ( Health Assistant: Aaron Arteaga MD #### FERI #### [address] [address] Health Assistant: Gino Wing MD Lymphocytes (Bld) [#/Vol] 1.02 10*3/uL Normal 1.0-4.8 [facility] Comment on above: Performed By: #### L IP, SED, CP, CRP, CDP #### [facility] [address] [place] [address] ( Health Assistant: Aaron Arteaga MD #### FERI #### [address] [phone] Health Assistant: Gino Wing MD Lymphocytes/100 WBC (Bld) 5 % Low 15-40 [facility] Comment on above: Performed By: #### L IP, SED, CP, CRP, CDP #### [facility] [address] [place] [phone] Health Assistant: Aaron Arteaga MD #### FERI #### [address] [phone] Health Assistant: Gino Wing MD Monocytes (Bld) [#/Vol] 1.02 10*3/uL High 0.0-1.0 [facility] Comment on above: Performed By: #### L IP, SED, CP, CRP, CDP #### [facility] [address] [place] [phone] Health Assistant: Aaron Arteaga MD #### FERI #### [address] [phone] Health Assistant: Gino Wing MD Monocytes/100 WBC (Bld) 5 % Normal 4-8 [facility] Comment on above: Performed By: #### L IP, SED, CP, CRP, CDP #### [facility] [address] [place], [place] [phone] Health Assistant: Aaron Arteaga MD #### FERI #### [address] [phone] Health Assistant: Gino Wing MD Morphology Franco (Bld) [Interp] Scanned to verify automated differential. Normal [facility] Comment on above: Performed By: #### L IP, SED, CP, CRP, CDP #### [facility] [address] [place], [place] [phone] Health Assistant: Aaron Arteaga MD #### FERI #### [address] [phone] Health Assistant: Gino Wing MD Neutrophil (Seg) 90 % High 47-[address] [facility] Comment on above: Performed By: #### L IP, SED, CP, CRP, CDP #### [facility] [address] [place], [place] [phone] Health Assistant: Aaron Arteaga MD #### FERI #### [address] [phone] Health Assistant: Gino Wing MD Erythrocyte distribution width (RBC) [Ratio] 13.8 % Normal 12.1-15.2 [facility] Comment on above: Performed By: #### L IP, SED, CP, CRP, CDP #### [facility] [address] [place] [address] Health Assistant: Aaron Arteaga MD #### FERI #### [address] [phone] Health Assistant: Gino Wing MD Hematocrit (Bld) [Volume fraction] 33.8 % Low 36-46 [facility] Comment on above: Performed By: #### L IP, SED, CP, CRP, CDP #### [facility] [address] [place] [phone] Health Assistant: Aaron Arteaga MD #### FERI #### [address] [phone] Health Assistant: Gino Wing MD Hemoglobin (Bld) [Mass/Vol] 11.3 g/dL Low 12.0-16.0 [facility] Comment on above: Performed By: #### L IP, SED, CP, CRP, CDP #### [facility] [address] [place] [phone] Health Assistant: Aaron Arteaga MD #### FERI #### [address] [phone] Health Assistant: Gino Wing MD MCH (RBC) [Entitic mass] 27.0 pg Normal 26-34 [facility] Comment on above: Performed By: #### L IP, SED, CP, CRP, CDP #### [facility] [address] [place] [address] Health Assistant: Aaron Artaega MD #### FERI #### [address] [phone] Health Assistant: Gino Wing MD MCHC (RBC) [Mass/Vol] 33.3 g/dL Normal 31-37 [facility] Comment on above: Performed By: #### L IP, SED, CP, CRP, CDP #### [facility] [address] [place] [address] Health Assistant: Aaron Arteaga MD #### FERI #### [place] [address] [place], [place] [phone] Health Assistant: Gino Wing MD MCV (RBC) [Entitic vol] 81.2 fL Normal 80-100 [facility] Comment on above: Performed By: #### L IP, SED, CP, CRP, CDP #### [facility] [address] [place] [address]88[address] ( Health Assistant: Aaron Arteaga MD #### FERI #### [place] [phone] Health Assistant: Gino Wing MD Platelets (Bld) [#/Vol] 453 10*3/uL High 140-450 [facility] Comment on above: Performed By: #### L IP, SED, CP, CRP, CDP #### [facility] [address] [place] [address] ( Health Assistant: Aaron Arteaga MD #### FERI #### [place] [phone] Health Assistant: Gino Wing MD RBC (Bld) [#/Vol] 4.16 10*6/uL Normal 4.0-5.2 [facility] Comment on above: Performed By: #### L IP, SED, CP, CRP, CDP #### [facility] [address] [place] [address]8839 ( Health Assistant: Aaron Arteaga MD #### FERI #### [place] [phone] Health Assistant: Gino Wing MD WBC (Bld) [#/Vol] 20.4 10*3/uL Critically high 3.5-11.0 [facility] Comment on above: Performed By: #### L IP, SED, CP, CRP, CDP #### [facility] [address] [place], [place] [phone] Health Assistant: Aaron Arteaga MD #### FERI #### [address] [phone] Health Assistant: Gino Wing MD Comp Metabolic Profon 2022 Albumin [Mass/Vol] 3.9 g/dL Normal 3.5-5.2 [facility] Comment on above: Performed By: #### L IP, SED, CP, CRP, CDP #### [facility] [address] [place] [address] Health Assistant: Aaron Arteaga MD #### FERI #### [address] [phone] Health Assistant: Gino Wing MD Alkaline Phos 100 U/L Normal 35-104 [facility] Comment on above: Performed By: #### L IP, SED, CP, CRP, CDP #### [facility] [address] [place], [place] [phone] Health Assistant: Aaron Arteaga MD #### FERI #### [address] [phone] Health Assistant: Gino Wing MD ALT [Catalytic activity/Vol] 24 U/L Normal 5-33 [facility] Comment on above: Performed By: #### L IP, SED, CP, CRP, CDP #### [facility] [address] [place], [place] [phone] Health Assistant: Aaron Arteaga MD #### FERI #### [address] [phone] Health Assistant: Gino Wing MD Anion gap [Moles/Vol] 16 mmol/L Normal 9-17 [facility] Comment on above: Performed By: #### L IP, SED, CP, CRP, CDP #### [facility] [address] [place], [place] [phone] Health Assistant: Aaron Arteaga MD #### FERI #### [address] [phone] Health Assistant: Gino Wing MD AST [Catalytic activity/Vol] 21 U/L Normal <32 [facility] Comment on above: Performed By: #### L IP, SED, CP, CRP, CDP #### [facility] [address] [place], [place] [phone] Health Assistant: Aaron Artaega MD #### FERI #### [address] [phone] Health Assistant: Gino Wing MD Bilirubin [Mass/Vol] 0.5 mg/dL Normal 0.3-1.2 [facility] Comment on above: Performed By: #### L IP, SED, CP, CRP, CDP #### [facility] [address] [place], [place] [phone] Health Assistant: Aaron Arteaga MD #### FERI #### [address] [phone] Health Assistant: Gino Wing MD BUN/CRE Ratio 10 Normal 9-20 [facility] Comment on above: Performed By: #### L IP, SED, CP, CRP, CDP #### [facility] [address] [place], [place] [phone] Health Assistant: Aaron Arteaga MD #### FERI #### [address] 2008308 Health Assistant: Gino Wing MD Calcium [Mass/Vol] 9.1 mg/dL Normal 8.6-10.4 [facility] Comment on above: Performed By: #### L IP, SED, CP, CRP, CDP #### [facility] [address] [place] [address] Health Assistant: Aaron Arteaga MD #### FERI #### [facility] [address] [place] [address] Health Assistant: Gino Wing MD Chloride [Moles/Vol] 96 mmol/L Low 98-107 [facility] Comment on above: Performed By: #### L IP, SED, CP, CRP, CDP #### [facility] [address] [place] [address] Health Assistant: Aaron Arteaga MD #### FERI #### [facility] [address] [place] [address] Health Assistant: Gino Wing MD CO2 [Moles/Vol] 19 mmol/L Low 20-31 [facility] Comment on above: Performed By: #### L IP, SED, CP, CRP, CDP #### [facility] [address] [place] [address] Health Assistant: Aaron Arteaga MD #### FERI #### [facility] [address] [place] [address] Health Assistant: Gino Wing MD Creatinine [Mass/Vol] 0.8 mg/dL Normal 0.5-0.9 [facility] Comment on above: Performed By: #### L IP, SED, CP, CRP, CDP #### [facility] [address] [place] [address] Health Assistant: Aaron Arteaga MD #### FERI #### [facility] [address] [place] [address] Health Assistant: Gino Wing MD GFR/1.73 sq M.predicted among non-blacks MDRD (S/P/Bld) [Vol rate/Area] mL/min/{1.73_m2} Normal >60 [facility] Comment on above: Result Comment: These [...] L IP, SED, CP, CRP, CDP #### [facility] [address] [place] [address] Health Assistant: Aaron Arteaga MD #### FERI #### [address] [phone] Health Assistant: Gino Wing MD Glucose [Mass/Vol] 154 mg/dL High 70-99 [facility] Comment on above: Performed By: #### L IP, SED, CP, CRP, CDP #### [facility] [address] [place] [address] Health Assistant: Aaron Arteaga MD #### FERI #### [address] [phone] Health Assistant: Gino Wing MD Potassium [Moles/Vol] 3.8 mmol/L Normal 3.7-5.3 [facility] Comment on above: Performed By: #### L IP, SED, CP, CRP, CDP #### [facility] [address] [place] [address] Health Assistant: Aaron Arteaga MD #### FERI #### [address] [phone] Health Assistant: Gino Wing MD Protein [Mass/Vol] 7.2 g/dL Normal 6.4-8.3 [facility] Comment on above: Performed By: #### L IP, SED, CP, CRP, CDP #### [facility] [address] [place] [address] Health Assistant: Aaron Arteaga MD #### FERI #### [facility] [address] [place], [place] [phone] Health Assistant: Gino Wing MD Sodium [Moles/Vol] 131 mmol/L Low 135-144 [facility] Comment on above: Performed By: #### L IP, SED, CP, CRP, CDP #### [facility] [address] [place], [place] [phone] Health Assistant: Aaron rAteaga MD #### FERI #### [place] [address] [place], [place] [phone] Health Assistant: Gino Wing MD Urea nitrogen [Mass/Vol] 8 mg/dL Normal 6-20 [facility] Comment on above: Performed By: #### L IP, SED, CP, CRP, CDP #### [facility] [address] [place], [place] [phone] Health Assistant: Aaron Arteaga MD #### FERI #### [address] [phone] Health Assistant: Gino Wing MD Lactic Acidon 03-12-2023 Lactate [Moles/Vol] 1.2 mmol/L Normal 0.5-2.2 [facility] Comment on above: Performed By: #### L IP, SED, CP, CRP, CDP #### [facility] [address] [place], [place] [phone] Health Assistant: Aaron Arteaga MD #### FERI #### [address] [phone] Health Assistant: Gino Wing MD Lipaseon 03-12-2023 Lipase [Catalytic activity/Vol] 18 U/L Normal 13-60 [facility] Comment on above: Performed By: #### L IP, SED, CP, CRP, CDP #### [facility] [address] [place], [place] 6742390 Health Assistant: Aaron Arteaga MD #### FERI #### [address] [phone] Health Assistant: Gino Wing MD Urinalysis, Routineon 2022 Bilirubin, SemiQt,Ur Negative Normal NEG [facility] Comment on above: Performed By: #### L IP, SED, CP, CRP, CDP #### [facility] [address] [place], [place] 1105390 Health Assistant: Aaron Arteaga MD #### FERI #### [address] [phone] Health Assistant: Gino Wing MD Blood, Urine 1+ Abnormal NEG [facility] Comment on above: Performed By: #### L IP, SED, CP, CRP, CDP #### [facility] [address] [place] [phone] Health Assistant: Aaron Arteaga MD #### FERI #### [address] [phone] Health Assistant: Gino Wing MD Clarity (U) Clear Normal CLEAR [facility] Comment on above: Performed By: #### L IP, SED, CP, CRP, CDP #### [facility] [address] [place], [place] [id number] Health Assistant: Aaron Arteaga MD #### FERI #### [address] [phone] Health Assistant: Gino Wing MD Color (U) Yellow Normal YEL [facility] Comment on above: Performed By: #### L IP, SED, CP, CRP, CDP #### [facility] [address] [place], [place] [phone] Health Assistant: Aaron Arteaga MD #### FERI #### [address] [address] Health Assistant: Gino Wing MD Comment Normal [facility] Comment on above: Performed By: #### L IP, SED, CP, CRP, CDP #### [facility] [address] [place], [place] [phone] Health Assistant: Aaron Arteaga MD #### FERI #### [address] [address] Health Assistant: Gino Wing MD Glucose Ql (U) Negative Normal NEG [facility] Comment on above: Performed By: #### L IP, SED, CP, CRP, CDP #### [facility] [address] [place] [address] Health Assistant: Aaron Arteaga MD #### FERI #### [address] [address] Health Assistant: Gino Wing MD Ketones Ql (U) Negative Normal NEG [facility] Comment on above: Performed By: #### L IP, SED, CP, CRP, CDP #### [facility] [address] [place] [address] Health Assistant: Aaron Arteaga MD #### FERI #### [address] [address] Health Assistant: Gino Wing MD Leukocyte esterase Test strip Ql (U) Negative Normal NEG [facility] Comment on above: Performed By: #### L IP, SED, CP, CRP, CDP #### [facility] [address] [place] [address] Health Assistant: Aaron Arteaga MD #### FERI #### [address] [address] Health Assistant: Gino Wing MD Nitrite,Ur Negative Normal NEG [facility] Comment on above: Performed By: #### L IP, SED, CP, CRP, CDP #### [facility] [address] [place] [address] Health Assistant: Aaron Arteaga MD #### FERI #### [address] [phone] Health Assistant: Gino Wing MD PH,Ur 7.0 Normal 5.0-8.0 [facility] Comment on above: Performed By: #### L IP, SED, CP, CRP, CDP #### [facility] [address] [place] [address] Health Assistant: Aaron Arteaga MD #### FERI #### [address] [phone] Health Assistant: Gino Wing MD Protein Ql (U) 1+ mg/dL Abnormal NEG [facility] Comment on above: Performed By: #### L IP, SED, CP, CRP, CDP #### [facility] [address] [place] [address] Health Assistant: Aaron Arteaga MD #### FERI #### [address] [phone] Health Assistant: Gino Wing MD Spec. Allison,Ur 1.010 Normal 1.005-1.030 [facility] Comment on above: Performed By: #### L IP, SED, CP, CRP, CDP #### [facility] [address] [place] [address] Health Assistant: Aaron Arteaga MD #### FERI #### [address] [phone] Health Assistant: Gino Wing MD Urobilinogen,Ur Normal Normal 0.0-1.0 [facility] Comment on above: Performed By: #### L IP, SED, CP, CRP, CDP #### [facility] [address] [place], [place] [phone] Health Assistant: Aaron Arteaga MD #### FERI #### [address] [phone] Health Assistant: Gino Wing MD Urinalysis,Microon 3 ----- Normal [facility] Comment on above: Performed By: #### L IP, SED, CP, CRP, CDP #### [facility] [address] [place], [place] [phone] Health Assistant: Aaron Arteaga MD #### FERI #### [address] [phone] Health Assistant: Gino Wing MD Epithelial cells LM Ql (Urine sed) 0 TO 2 Normal [facility] Comment on above: Performed By: #### L IP, SED, CP, CRP, CDP #### [facility] [address] [place], [place] [phone] Health Assistant: Aaron Arteaga MD #### FERI #### [address] [phone] Health Assistant: Gino Wing MD Urine RBC's 5 TO 10 Normal 0-2 [facility] Comment on above: Performed By: #### L IP, SED, CP, CRP, CDP #### [facility] [address] [place], [place] [phone] Health Assistant: Aaron Arteaga MD #### FERI #### [address] [phone] Health Assistant: Gino Wing MD Urine WBC's 0 TO 2 Normal 0 [facility] Comment on above: Performed By: #### L IP, SED, CP, CRP, CDP #### [facility] [address] [place] [address] Health Assistant: Aaron Arteaga MD #### FERI #### [facility] [address] [place] [address] Health Assistant: Gino Wing MD CBC with Auto Differentialon 03-07-2023 Basophils (Bld) [#/Vol] 0.00 10*3/uL [facility] Basophils/100 WBC (Bld) 0 % 0 - 2 % [facility] Differential Type YES [facility] Eosinophils (Bld) [#/Vol] 0.00 10*3/uL [facility] Eosinophils/100 WBC (Bld) 0 % 0 - 5 % [facility] Erythrocyte distribution width (RBC) [Ratio] 13.8 % 12.1 - 15.2 % [facility] Hematocrit (Bld) [Volume fraction] 33.9 % Low 36 - 46 % [facility] Hemoglobin (Bld) [Mass/Vol] 11.3 g/dL Low 12.0 - 16.0 g/dL [facility] Interpretation and review of laboratory results Abnormal [facility] Lymphocytes/100 WBC (Bld) 14 % Low 15 - 40 % [facility] Lymphocytes/100 WBC (Bld) 1.30 % [facility] (RBC) [Entitic mass] 27.2 pg 26 - 34 pg [facility] MCHC (RBC) [Mass/Vol] 33.4 g/dL 31 - 37 g/dL [facility] MCV (RBC) [Entitic vol] 81.4 fL 80 - 100 fL [facility] Monocytes/100 WBC (Bld) 6 % 4 - 8 % [facility] Monocytes/100 WBC (Bld) 0.60 % [facility] Neutrophils/100 WBC (Bld) 80 % High 47 - 75 % [facility] Platelets (Bld) [#/Vol] 407 10*3/uL [facility] RBC (Bld) [#/Vol] 4.17 10*6/uL 4.0 - 5.2 m/uL [facility] Segmented neutrophils/100 WBC (Bld) 7.50 % High [facility] WBC other (Bld) [#/Vol] 9.4 [facility] CBC with Diffon 03-07-2023 Abs. Basophil 0.00 k/uL Normal 0.0-0.2 [facility] Comment on above: Performed By: #### L IP, SED, CP, CRP, CDP #### [facility] [address] [place] [address] Health Assistant: Aaron Arteaga MD #### FERI #### [place] [id number] Health Assistant: Gino Wing MD Abs.Neutrophil (Seg) 7.50 k/uL High 2.5-7.0 [facility] Comment on above: Performed By: #### L IP, SED, CP, CRP, CDP #### [facility] [address] [place] [address] Health Assistant: Aaron Arteaga MD #### FERI #### [place] [phone] Health Assistant: Gino Wing MD Auto Diff Performed YES Normal [facility] Comment on above: Performed By: #### L IP, SED, CP, CRP, CDP #### [facility] [address] [place] [phone] Health Assistant: Aaron Arteaga MD #### FERI #### [place] [phone] Health Assistant: Gino Wing MD Basophils/100 WBC (Bld) 0 % Normal 0-2 [facility] Comment on above: Performed By: #### L IP, SED, CP, CRP, CDP #### [facility] [address] [place] [phone] ( Health Assistant: Aaron Arteaga MD #### FERI #### [place] [address] [place], [place] [id number] Health Assistant: Gino Wnig MD Eosinophils (Bld) [#/Vol] 0.00 10*3/uL Normal 0.0-0.4 [facility] Comment on above: Performed By: #### L IP, SED, CP, CRP, CDP #### [facility] [address] [place] [address] Health Assistant: Aaron Arteaga MD #### FERI #### [address] [phone] Health Assistant: Gino Wing MD Eosinophils/100 WBC (Bld) 0 % Normal 0-5 [facility] Comment on above: Performed By: #### L IP, SED, CP, CRP, CDP #### [facility] [address] [place] [address] Health Assistant: Aaron Arteaga MD #### FERI #### [address] [id number] Health Assistant: Gino Wing MD Erythrocyte distribution width (RBC) [Ratio] 13.8 % Normal 12.1-15.2 [facility] Comment on above: Performed By: #### L IP, SED, CP, CRP, CDP #### [facility] [address] [place] [address] Health Assistant: Aaron Arteaga MD #### FERI #### [address] [address] Health Assistant: Gino Wing MD Hematocrit (Bld) [Volume fraction] 33.9 % Low 36-46 [facility] Comment on above: Performed By: #### L IP, SED, CP, CRP, CDP #### [facility] [address] [place] [address] Health Assistant: Aaron Arteaga MD #### FERI #### [address] [phone] Health Assistant: Gino Wing MD Hemoglobin (Bld) [Mass/Vol] 11.3 g/dL Low 12.0-16.0 [facility] Comment on above: Performed By: #### L IP, SED, CP, CRP, CDP #### [facility] [address] [place] [address] ( Health Assistant: Aaron Arteaga MD #### FERI #### [place] [phone] Health Assistant: Gino Wing MD Lymphocytes (Bld) [#/Vol] 1.30 10*3/uL Normal 1.0-4.8 [facility] Comment on above: Performed By: #### L IP, SED, CP, CRP, CDP #### [facility] [address] [place] [phone] ( Health Assistant: Aaron Arteaga MD #### FERI #### [place] [address] Health Assistant: Gino Wing MD Lymphocytes/100 WBC (Bld) 14 % Low 15-40 [facility] Comment on above: Performed By: #### L IP, SED, CP, CRP, CDP #### [facility] [address] [place] [phone] ( Health Assistant: Aaron Arteaga MD #### FERI #### [place] [phone] Health Assistant: Gino Wing MD MCH (RBC) [Entitic mass] 27.2 pg Normal 26-34 [facility] Comment on above: Performed By: #### L IP, SED, CP, CRP, CDP #### [facility] [address] [place] [phone] ( Health Assistant: Aaron Arteaga MD #### FERI #### [address] [phone] Health Assistant: Gino Wing MD MCHC (RBC) [Mass/Vol] 33.4 g/dL Normal 31-37 [facility] Comment on above: Performed By: #### L IP, SED, CP, CRP, CDP #### [facility] [address] [place] [address] Health Assistant: Aaron Arteaga MD #### FERI #### [address] [phone] Health Assistant: Gino Wing MD MCV (RBC) [Entitic vol] 81.4 fL Normal 80-100 [facility] Comment on above: Performed By: #### L IP, SED, CP, CRP, CDP #### [facility] [address] [place] [address] Health Assistant: Aaron Arteaga MD #### FERI #### [place] [phone] Health Assistant: Gino Wing MD Monocytes (Bld) [#/Vol] 0.60 10*3/uL Normal 0.0-1.0 [facility] Comment on above: Performed By: #### L IP, SED, CP, CRP, CDP #### [facility] [address] [place] [address] Health Assistant: Aaron Arteaga MD #### FERI #### [place] [phone] Health Assistant: Gino Wing MD Monocytes/100 WBC (Bld) 6 % Normal 4-8 [facility] Comment on above: Performed By: #### L IP, SED, CP, CRP, CDP #### [facility] [address] [place] [address] ( Health Assistant: Aaron Arteaga MD #### FERI #### [address] [phone] Health Assistant: Gino Wing MD Neutrophil (Seg) 80 % High 47-[address] [facility] Comment on above: Performed By: #### L IP, SED, CP, CRP, CDP #### [facility] [address] [place] [address] ( Health Assistant: Aaron Arteaga MD #### FERI #### [address] [phone] Health Assistant: Gino Wing MD Platelets (Bld) [#/Vol] 407 10*3/uL Normal 140-450 [facility] Comment on above: Performed By: #### L IP, SED, CP, CRP, CDP #### [facility] [address] [place] [phone] ( Health Assistant: Aaron Arteaga MD #### FERI #### [place] [address] Health Assistant: Gino Wing MD RBC (Bld) [#/Vol] 4.17 10*6/uL Normal 4.0-5.2 [facility] Comment on above: Performed By: #### L IP, SED, CP, CRP, CDP #### [facility] [address] [place] [address] ( Health Assistant: Aaron Arteaga MD #### FERI #### [place] [phone] Health Assistant: Gino Wing MD WBC (Bld) [#/Vol] 9.4 10*3/uL Normal 3.5-11.0 [facility] Comment on above: Performed By: #### L IP, SED, CP, CRP, CDP #### [facility] [address] [place] [address] Health Assistant: Aaron Arteaga MD #### BLAKEI #### [facility] [address] [place] [address] Health Assistant: Gino Wing MD [facility] 03-07-2023 Albumin [Mass/Vol] 3.8 g/dL 3.5 - 5.2 g/dL [facility] ALP [Catalytic activity/Vol] 81 U/L 35 - 104 U/L [facility] ALT [Catalytic activity/Vol] 8 U/L 5 - 33 U/L [facility] Anion gap [Moles/Vol] 11 mmol/L 9 - 17 mmol/L [facility] AST [Catalytic activity/Vol] 10 U/L NINF - 32 U/L [facility] Bilirubin [Mass/Vol] 0.3 mg/dL 0.3 - 1 .2 mg/dL [facility] Calcium [Mass/Vol] 8.8 mg/dL 8.6 - 10. 4 mg/dL [facility] Chloride [Moles/Vol] 103 mmol/L 98 - 10 7 mmol/L [facility] CO2 [Moles/Vol] 22 mmol/L 20 - 31 mmol/L [facility] Creatinine [Mass/Vol] 0.7 mg/dL 0.5 - 0.9 mg/dL [facility] GFR/1.73 sq M.predicted MDRD (S/P/Bld) [Vol rate/Area] - PINF [facility] Comment on above: These results are [...] 131 mg/dL High 70 - 99 mg/dL [facility] Interpretation and review of laboratory results Abnormal [facility] Potassium [Moles/Vol] 4.1 mmol/L 3.7 - 5.3 mmol/L [facility] Protein [Mass/Vol] 6.7 g/dL 6.4 - 8.3 g/dL [facility] Sodium [Moles/Vol] 136 mmol/L 135 - 144 mmol/L [facility] Urea nitrogen [Mass/Vol] 8 mg/dL 6 - 20 mg/dL [facility] Urea nitrogen/Creatinine [Mass ratio] 11 mg/mg 9 - 20 [facility] Comp Metabolic Profon 2022 Albumin [Mass/Vol] 3.8 g/dL Normal 3.5-5.2 [facility] Comment on above: Performed By: #### L IP, SED, CP, CRP, CDP #### [facility] [address] [place] [address] Health Assistant: Aaron Arteaga MD #### FERI #### [address] [phone] Health Assistant: Gino Wing MD Alkaline Phos 81 U/L Normal 35-104 [facility] Comment on above: Performed By: #### L IP, SED, CP, CRP, CDP #### [facility] [address] [place], [place] [phone] Health Assistant: Aaron Arteaga MD #### FERI #### [address] [phone] Health Assistant: Gino Wing MD ALT [Catalytic activity/Vol] 8 U/L Normal 5-33 [facility] Comment on above: Performed By: #### L IP, SED, CP, CRP, CDP #### [facility] [address] [place], [place] 2133190 Health Assistant: Aaron Arteaga MD #### FERI #### [address] [phone] Health Assistant: Gino Wing MD Anion gap [Moles/Vol] 11 mmol/L Normal 9-17 [facility] Comment on above: Performed By: #### L IP, SED, CP, CRP, CDP #### [facility] [address] [place], [place] [phone] Health Assistant: Aaron Arteaga MD #### FERI #### [address] [address] Health Assistant: Gino Wing MD AST [Catalytic activity/Vol] 10 U/L Normal <32 [facility] Comment on above: Performed By: #### L IP, SED, CP, CRP, CDP #### [facility] [address] [place] [address] Health Assistant: Aaron Arteaga MD #### FERI #### [address] [address] Health Assistant: Gino Wing MD Bilirubin [Mass/Vol] 0.3 mg/dL Normal 0.3-1.2 [facility] Comment on above: Performed By: #### L IP, SED, CP, CRP, CDP #### [facility] [address] [place] [address] Health Assistant: Aaron Arteaga MD #### FERI #### [address] [address] Health Assistant: Gino Wing MD BUN/CRE Ratio 11 Normal 9-20 [facility] Comment on above: Performed By: #### L IP, SED, CP, CRP, CDP #### [facility] [address] [place] [address] Health Assistant: Aaron Arteaga MD #### FERI #### [address] [address] Health Assistant: Gino Wing MD Calcium [Mass/Vol] 8.8 mg/dL Normal 8.6-10.4 [facility] Comment on above: Performed By: #### L IP, SED, CP, CRP, CDP #### [facility] [address] [place] [address] Health Assistant: Aaron Arteaga MD #### FERI #### [address] [phone] Health Assistant: Gino Wing MD Chloride [Moles/Vol] 103 mmol/L Normal 98-107 [facility] Comment on above: Performed By: #### L IP, SED, CP, CRP, CDP #### [facility] [address] [place] [address] Health Assistant: Aaron Arteaga MD #### FERI #### [address] [phone] Health Assistant: Gino Wing MD CO2 [Moles/Vol] 22 mmol/L Normal 20-31 [facility] Comment on above: Performed By: #### L IP, SED, CP, CRP, CDP #### [facility] [address] [place] [address] Health Assistant: Aaron Arteaga MD #### FERI #### [address] [phone] Health Assistant: Gino Wing MD Creatinine [Mass/Vol] 0.7 mg/dL Normal 0.5-0.9 [facility] Comment on above: Performed By: #### L IP, SED, CP, CRP, CDP #### [facility] [address] [place] [address] Health Assistant: Aaron Arteaga MD #### FERI #### [address] [phone] Health Assistant: Gino Wing MD GFR/1.73 sq M.predicted among non-blacks MDRD (S/P/Bld) [Vol rate/Area] mL/min/{1.73_m2} Normal >60 [facility] Comment on above: Result Comment: These [...] L IP, SED, CP, CRP, CDP #### [facility] [address] [place] [address] Health Assistant: Aaron Arteaga MD #### FERI #### [address] [address] Health Assistant: Gino Wing MD Glucose [Mass/Vol] 131 mg/dL High 70-99 [facility] Comment on above: Performed By: #### L IP, SED, CP, CRP, CDP #### [facility] [address] [place] [address] Health Assistant: Aaron Arteaga MD #### FERI #### [place] [address] [place], [place] [phone] Health Assistant: Gino Wing MD Potassium [Moles/Vol] 4.1 mmol/L Normal 3.7-5.3 [facility] Comment on above: Performed By: #### L IP, SED, CP, CRP, CDP #### [facility] [address] [place] [address] Health Assistant: Aaron Arteaga MD #### FERI #### [address] [phone] Health Assistant: Gino Wing MD Protein [Mass/Vol] 6.7 g/dL Normal 6.4-8.3 [facility] Comment on above: Performed By: #### L IP, SED, CP, CRP, CDP #### [facility] [address] [place], [place] [phone] Health Assistant: Aaron Arteaga MD #### FERI #### [address] [phone] Health Assistant: Gino Wing MD Sodium [Moles/Vol] 136 mmol/L Normal 135-144 [facility] Comment on above: Performed By: #### L IP, SED, CP, CRP, CDP #### [facility] [address] [place], [place] [phone] Health Assistant: Aaron Arteaga MD #### FERI #### [address] [phone] Health Assistant: Gino Wing MD Urea nitrogen [Mass/Vol] 8 mg/dL Normal 6-20 [facility] Comment on above: Performed By: #### L IP, SED, CP, CRP, CDP #### [facility] [address] [place] [address] Health Assistant: Aaron Arteaga MD #### FERI #### [address] [phone] Health Assistant: Gino Wing MD Diff Methodon 7 Diff Method AUTO Normal [facility] Comment on above: Performed By: #### L IP, SED, CP, CRP, CDP #### [facility] [address] [place], [place] [phone] Health Assistant: Aaron Arteaga MD #### FERI #### [address] [phone] Health Assistant: Gino Wing MD HCG, ,Urineon 03-074 Beta HCG ( test) Ql (U) Positive Abnormal NEG [facility] Comment on above: Result Comment: If H CG results do not concur with clinical observations, additional testing to confirm result is recommended. This test is not labeled for use as a tumor marker. Performed By: #### U AYAD ARIZMENDI, [facility] #### [facility] [address] [place] [address] Health Assistant: Aaron Arteaga MD Microscopic Urinalysison - [facility] Bacteria LM Ql (Urine sed) RARE Abnormal None [facility] Epithelial cells LM.HPF (Urine sed) [#/Area] 20 TO 50 /HPF [facility] Interpretation and review of laboratory results Abnormal [facility] RBC LM.HPF (Urine sed) [#/Area] 0 TO 2 [facility] WBC LM.HPF (Urine sed) [#/Area] NONE SEEN 0 /HPF [facility] , Urineon HCG ( test) Ql (U) Positive Abnormal NEGATIVE [facility] Comment on above: If HCG results do no t concur with clinical observations, additional testing to confirm result is recommended. This test is not labeled for use as a tumor marker. Interpretation and review of laboratory results Abnormal [facility] Urinalysison 03-07-2023 Bilirubin Ql (U) Negative NEGATIVE [facility] Clarity (U) Clear Clear [facility] Color (U) Yellow Yellow [facility] Comment [facility] Glucose Test strip (U) [Mass/Vol] Negative NEGATIVE mg/dL [facility] Hemoglobin Auto test strip Ql (U) TRACE Abnormal NEGATIVE [facility] Interpretation and review of laboratory results Abnormal [facility] Ketones (U) [Mass/Vol] Negative NEGATIVE mg/dL [facility] Leukocyte esterase Test strip Ql (U) Negative NEGATIVE [facility] Nitrite Ql (U) Negative NEGATIVE [facility] pH (U) 7.0 [pH] 5.0 - 8.0 [facility] Protein (U) [Mass/Vol] Negative NEGATIVE mg/dL [facility] Specific gravity (U) [Rel density] 1.015 1.005 - 1.030 [facility] Urobilinogen Qn (U) Normal 0.0 - 1. 0 EU/dL [facility] Urinalysis, Routineon 2022 Bilirubin, SemiQt,Ur Negative Normal NEG [facility] Comment on above: Performed By: #### U MICAO, UA, [facility] #### [facility] [address] [place] [address] Health Assistant: Aaron Arteaga MD Blood, Urine TRACE Abnormal NEG [facility] Comment on above: Performed By: #### U MICAO, UA, [facility] #### [facility] [address] [place] [address] Health Assistant: Aaron Arteaga MD Clarity (U) Clear Normal CLEAR [facility] Comment on above: Performed By: #### U MICAO, UA, [facility] #### [facility] [address] [place] [address] Health Assistant: Aaron Arteaga MD Color (U) Yellow Normal YEL [facility] Comment on above: Performed By: #### U MICAO, UA, [facility] #### [facility] [address] [place] [address] Health Assistant: Aaron Arteaga MD Comment Normal [facility] Comment on above: Performed By: #### U MICAO, UA, [facility] #### [facility] [address] [place] [address] Health Assistant: Aaron Arteaga MD Glucose Ql (U) Negative Normal NEG [facility] Comment on above: Performed By: #### U MICAO, UA, CG #### [facility] [address] [place] [address] Health Assistant: Aaron Arteaga MD Ketones Ql (U) Negative Normal NEG [facility] Comment on above: Performed By: #### U MICAO, UA, CG #### [facility] [address] [place], [place] [phone] Health Assistant: Aaron Arteaga MD Leukocyte esterase Test strip Ql (U) Negative Normal NEG [facility] Comment on above: Performed By: #### U MICAO, UA, [facility] #### [facility] [address] [place] [address] Health Assistant: Aaron Arteaga MD Nitrite,Ur Negative Normal NEG [facility] Comment on above: Performed By: #### U MICAO, UA, [facility] #### [facility] [address] [place] [address] Health Assistant: Aaron Arteaga MD PH,Ur 7.0 Normal 5.0-8.0 [facility] Comment on above: Performed By: #### U MICAO, UA, [facility] #### [facility] [address] [place] [phone] Health Assistant: Aaron Arteaga MD Protein Ql (U) Negative Normal NEG [facility] Comment on above: Performed By: #### U MICAO, UA, [facility] #### [facility] [address] [place] [address] Health Assistant: Aaron Arteaga MD Spec. Allison,Ur 1.015 Normal 1.005-1.030 [facility] Comment on above: Performed By: #### U MICAO, UA, [facility] #### [facility] [address] [place], [place] [phone] Health Assistant: Aaron Arteaga MD Urobilinogen,Ur Normal Normal 0.0-1.0 [facility] Comment on above: Performed By: #### U MICAO, UA, CG #### [facility] [address] [place] [address] Health Assistant: Aaron Arteaga MD Urinalysis,Microon 3 ----- Normal [facility] Comment on above: Performed By: #### U KRISTYNO UA, CG #### [facility] [address] [place] [address] Health Assistant: Aaron Arteaga MD Bacteria RARE Abnormal NONE [facility] Comment on above: Performed By: #### U MICAO UA, [facility] #### [facility] [address] [place] [address] Health Assistant: Aaron Arteaga MD Epithelial cells LM Ql (Urine sed) 20 TO 50 Normal [facility] Comment on above: Performed By: #### U KRISTYNO UA, CG #### [facility] [address] [place] [address] Health Assistant: Aaron Arteaga MD Urine RBC's 0 TO 2 Normal 0-2 [facility] Comment on above: Performed By: #### U KRISTYNO UA, [facility] #### [facility] [address] [place], [place] [phone] Health Assistant: Aaron Arteaga MD Urine WBC's NONE SEEN Normal 0 [facility] Comment on above: Performed By: #### U MICAO UA, CG #### [facility] [address] [place], [place] [phone] Health Assistant: Aaron Arteaga MD US PELVIS AND TRANSVAGon [...] by: PILAR DOBSON Date: 2023-01-03 10:47 Normal [facility] Strep Gr A Direct Agon 11-14 Strep Gr A Direct Ag Negative Normal NEG [facility] Comment on above: Result Comment: Rapi d Strep A negative. A negative Rapid Group A Strep Screen result does not rule out the possibility of Group A Streptococci in the specimen. A Group A Strep DNA test is available upon request. Performed By: #### R GPA #### [facility] [address] [place] [address] Health Assistant: Aaron Arteaga MD Source .THROAT SWAB Normal [facility] Comment on above: Performed By: #### R GPA #### [facility] [address] [place] [address] Health Assistant: Aaron Arteaga MD Strep Screen Group A Throato n 11-14-2022 S. pyogenes Ag Ql (Throat) Negative NEGATIVE [facility] Comment on above: Rapid Strep A negati ve. A negative Rapid Group A Strep Screen result does not rule out the possibility of Group A Streptococci in the specimen. A Group A Strep DNA test is available upon request. Source .THROAT SWAB [facility] Drug Scr, Abuse, Uron 2021 Amphetamine(s),Ur Negative Normal NEG [facility] Comment on above: Result Comment: (Positive cutoff 1000 ng/mL) Performed By: #### D AU, URTPRT #### [address] [phone] Health Assistant: Gino Wing MD Barbiturate(s),Ur Negative Normal NEG [facility] Comment on above: Result Comment: (Positive cutoff 200 ng/mL) Performed By: #### Lydia AU, URTPRT #### [facility] [address] [place] [address] Health Assistant: Gino Wing MD Benzodiazepine(s) Negative Normal NEG [facility] Comment on above: Result Comment: (Positive cutoff 200 ng/mL) Performed By: #### Lydia AU, URTPRT #### [facility] [address] [place] [address] Health Assistant: Gino Wing MD Cannabinoid(s),Ur Negative Normal NEG [facility] Comment on above: Result Comment: (Positive cutoff 50 ng/mL) Performed By: #### Lydia AU, URTPRT #### [facility] [address] [place] [address] Health Assistant: Gino Wing MD Cocaine Metabolite Negative Normal NEG [facility] Comment on above: Result Comment: (Positive cutoff 300 ng/mL) Performed By: #### Lydia AU, URTPRT #### [facility] [address] [place] [address] Health Assistant: Gino Wing MD Fentanyl, Urine Positive Abnormal NEG [facility] Comment on above: Result Comment: (Positive cutoff 5 ng/ml) Performed By: #### Lydia AU, URTPRT #### [facility] [address] [place] [address] Health Assistant: Gino Wing MD Interpretive Info Assay provides medic al screening only. The absence of expected drug(s) and/or Normal [facility] Comment on above: Result Comment: meta bolite(s) may indicate diluted or adulterated urine, limitations of testing or timing of collection. Testing for legal purposes should be confirmed by another method. To request confirmation of test result, please call the lab within 7 days of sample submission. Performed By: #### Lydia AU, URTPRT #### [facility] [address] [place] [address] Health Assistant: Gino Wing MD Methadone Ql (U) Negative Normal NEG [facility] Comment on above: Result Comment: (Positive cutoff 300 ng/mL) Performed By: #### D JAVI, URTPRT #### [address] [address] Health Assistant: Gino Wing MD Opiate(s), Ur Negative Normal NEG [facility] Comment on above: Result Comment: (Positive cutoff 300 ng/mL) Performed By: #### Lydia CALDWELL, URTPRT #### [facility] [address] [place] [address] Health Assistant: Gino Wing MD Oxycodone, Urine Positive Abnormal NEG [facility] Comment on above: Result Comment: (Positive cutoff 100 ng/mL) Performed By: #### Lydia CALDWELL, URTPRT #### [facility] [address] [place] [phone] Health Assistant: Gino Wing MD Phencyclidine, Ur Negative Normal NEG [facility] Comment on above: Result Comment: (Positive cutoff 25 ng/mL) Performed By: #### D JAVI, URTPRT #### [address] [address] Health Assistant: Gino Wing MD SURGICAL PATHOLOGY REPORTon 05-27-2022 [...] PATHOLOGY CONSULTATION Patient Name: QIAN CLEMENTS [facility] Rec: [id number] Path Number: [id number] [facility] ANATOMIC PATHOLOGY [address] [place] [phone] [email or web address] [facility] [employer] CBCon 05-26-2022 Erythrocyte distribution width (RBC) [Ratio] 12.4 % Normal 11.8-14.4 [facility] Comment on above: Performed By: #### C DHARA, CP #### [employer] [address] [place] [address] [phone] Health Assistant: Gino Wing MD Hematocrit (Bld) [Volume fraction] 28.6 % Low 36.3-47.1 [facility] Comment on above: Performed By: #### C DHARA, CP #### [facility] [address] [place] [address] Health Assistant: Gino Wing MD Hemoglobin (Bld) [Mass/Vol] 9.6 g/dL Low 11.9-15.1 [facility] Comment on above: Performed By: #### C DHARA, CP #### [facility] [address] [place] [address] [phone] Health Assistant: Gino Wing MD MCH (RBC) [Entitic mass] 30.0 pg Normal 25.2-33.5 [facility] Comment on above: Performed By: #### C BC, CP #### [address] [address] Health Assistant: Gino Wing MD MCHC (RBC) [Mass/Vol] 33.6 g/dL Normal 28.4-34.8 [facility] Comment on above: Performed By: #### C DHARA, CP #### [address] [address] Health Assistant: Gino Wing MD MCV (RBC) [Entitic vol] 89.4 fL Normal 82.6-102.9 [facility] Comment on above: Performed By: #### C DHARA, CP #### [address] [address] Health Assistant: Gino Wing MD NRBC Automated 0.0 per [address] [facility] Comment on above: Performed By: #### C DHARA, CP #### [address] [address] Health Assistant: Gino Wing MD Platelet mean volume (Bld) [Entitic vol] 9.6 fL Normal 8.1-13.5 [facility] Comment on above: Performed By: #### C BC, CP #### [address] [address] Health Assistant: Gino Wing MD Platelets (Bld) [#/Vol] 321 10*3/uL Normal 138-453 [facility] Comment on above: Performed By: #### C DHARA, CP #### [address] [address] Health Assistant: Gino Wing MD RBC (Bld) [#/Vol] 3.20 10*6/uL Low 3.95-5.11 [facility] Comment on above: Performed By: #### C DHARA, CP #### [facility] [address] [place] [address] Health Assistant: Gino Wing MD WBC (Bld) [#/Vol] 13.1 10*3/uL High 3.5-11.3 [facility] Comment on above: Performed By: #### C DHARA, CP #### [facility] [address] [place] [address] Health Assistant: Gino Wing MD Hematocrit (Bld) [Volume fraction] 28.6 % Low 36.3 - 47.1 % [facility] Hemoglobin (Bld) [Mass/Vol] 9.6 g/dL Low 11.9 - 15.1 g/dL [facility] Interpretation and review of laboratory results Abnormal [facility] [employer] MCH (RBC) [Entitic mass] 30.0 pg 25.2 - 33.5 pg [facility] MCHC (RBC) [Mass/Vol] 33.6 g/dL 28.4 - 34.8 g/dL [facility] MCV (RBC) [Entitic vol] 89.4 fL 82.6 - 102.9 fL [facility] [employer] NRBC Automated 0.0 0.0 per 100 WBC [facility] Platelet distribution width (Bld) [Ratio] 12.4 % 11.8 - 14.4 % [facility] Platelet mean volume (Bld) [Entitic vol] 9.6 fL 8.1 - 13.5 fL [facility] Platelets (Bld) [#/Vol] 321 10*3/uL [facility] RBC (Bld) [#/Vol] 3.20 10*6/uL Low 3.95 - 5.1 1 m/uL [facility] [employer] WBC (Bld) [#/Vol] 13.1 10*3/uL High [facility] [employer] Comp Metabolic Profon 2021 Bilirubin [Mass/Vol] mg/dL Low 0.3-1.2 [facility] Comment on above: Performed By: #### C BC, CP #### [facility] [address] [place] [address] Health Assistant: Gino Wing MD Albumin [Mass/Vol] 2.4 g/dL Low 3.5-5.2 [facility] Comment on above: Performed By: #### C BC, CP #### [facility] [address] [place] [address] Health Assistant: Gino Wing MD Albumin/Glob Ratio 0.9 Low 1.0-2.5 [facility] Comment on above: Performed By: #### C BC, CP #### [facility] [address] [place] [address] Health Assistant: Gino Wing MD Alkaline Phos 79 U/L Normal 35-104 [facility] Comment on above: Performed By: #### C BC, CP #### [address] [address] Health Assistant: Gino Wing MD ALT [Catalytic activity/Vol] 10 U/L Normal 5-33 [facility] Comment on above: Performed By: #### C BC, CP #### [address] [address] Health Assistant: Gino Wing MD Anion gap [Moles/Vol] 12 mmol/L Normal 9-17 [facility] Comment on above: Performed By: #### C BC, CP #### [facility] [address] [place] [address] Health Assistant: Gino Wing MD AST [Catalytic activity/Vol] 20 U/L Normal <32 [facility] Comment on above: Performed By: #### C BC, CP #### [facility] [address] [place] [address] Health Assistant: Gino Wing MD Calcium [Mass/Vol] 6.6 mg/dL Low 8.6-10.4 [facility] Comment on above: Performed By: #### C BC, CP #### [address] [address] Health Assistant: Gino Wing MD Chloride [Moles/Vol] 101 mmol/L Normal 98-107 [facility] Comment on above: Performed By: #### C BC, CP #### [address] [address] Health Assistant: Gino Wing MD CO2 [Moles/Vol] 19 mmol/L Low 20-31 [facility] Comment on above: Performed By: #### C DHARA, CP #### [address] [address] Health Assistant: Gino Wing MD Creatinine [Mass/Vol] 0.60 mg/dL Normal 0.50-0.90 [facility] Comment on above: Performed By: #### C DHARA, CP #### [address] [address] Health Assistant: Gino Wing MD GFR/1.73 sq M.predicted among non-blacks MDRD (S/P/Bld) [Vol rate/Area] mL/min/{1.73_m2} Normal >60 [facility] Comment on above: Result Comment: Effective May [...] Performed By: #### C DHARA, CP #### [address] [address] Health Assistant: Gino Wing MD Glucose [Mass/Vol] 103 mg/dL High 70-99 [facility] Comment on above: Performed By: #### C BC, CP #### [facility] [address] [place] [address] Health Assistant: Gino Wing MD Potassium [Moles/Vol] 4.3 mmol/L Normal 3.7-5.3 [facility] Comment on above: Performed By: #### C BC, CP #### [facility] [address] [place] [address] Health Assistant: Gino Wing MD Protein [Mass/Vol] 5.2 g/dL Low 6.4-8.3 [facility] Comment on above: Performed By: #### C BC, CP #### [facility] [address] [place] [address] Health Assistant: Gino Wing MD Sodium [Moles/Vol] 132 mmol/L Low 135-144 [facility] Comment on above: Performed By: #### C BC, CP #### [facility] [address] [place] [address] Health Assistant: Gino Wing MD Urea nitrogen [Mass/Vol] 6 mg/dL Normal 6-20 [facility] Comment on above: Performed By: #### C BC, CP #### [facility] [address] [place] [address] Health Assistant: Gino Wing MD ALT [Catalytic activity/Vol] U/L Low 5-33 [facility] Comment on above: Performed By: #### C DP, CP #### [facility] [address] [place] [address] Health Assistant: Gino Wing MD Bilirubin [Mass/Vol] mg/dL Low 0.3-1.2 [facility] Comment on above: Performed By: #### C DP, CP #### [address] [address] Health Assistant: Gino Wing MD Albumin [Mass/Vol] 3.1 g/dL Low 3.5-5.2 [facility] Comment on above: Performed By: #### C DP, CP #### [address] [address] Health Assistant: Gino Wing MD Albumin/Glob Ratio 1.1 Normal 1.0-2.5 [facility] Comment on above: Performed By: #### C DP, CP #### [address] [address] Health Assistant: Gino Wing MD Alkaline Phos 82 U/L Normal 35-104 [facility] Comment on above: Performed By: #### C DP, CP #### [address] [address] Health Assistant: Gino Wing MD Anion gap [Moles/Vol] 13 mmol/L Normal 9-17 [facility] Comment on above: Performed By: #### C DP, CP #### [address] [address] Health Assistant: Gino Wing MD AST [Catalytic activity/Vol] 17 U/L Normal <32 [facility] Comment on above: Performed By: #### C DP, CP #### [address] [address] Health Assistant: Gino Wing MD Calcium [Mass/Vol] 6.6 mg/dL Low 8.6-10.4 [facility] Comment on above: Performed By: #### C DP, CP #### [address] [address] Health Assistant: Gino Wing MD Chloride [Moles/Vol] 102 mmol/L Normal 98-107 [facility] Comment on above: Performed By: #### C DP, CP #### [address] [address] Health Assistant: Gino Wing MD CO2 [Moles/Vol] 19 mmol/L Low 20-31 [facility] Comment on above: Performed By: #### C DP, CP #### [address] [address] Health Assistant: Gino Wing MD Creatinine [Mass/Vol] 0.57 mg/dL Normal 0.50-0.90 [facility] Comment on above: Performed By: #### C DP, CP #### [address] [address] Health Assistant: Gino Wing MD GFR/1.73 sq M.predicted among non-blacks MDRD (S/P/Bld) [Vol rate/Area] mL/min/{1.73_m2} Normal >60 [facility] Comment on above: Result Comment: Effective May [...] Performed By: #### C DP, CP #### [address] [address] Health Assistant: Gino Wing MD Glucose [Mass/Vol] 109 mg/dL High 70-99 [facility] Comment on above: Performed By: #### C DP, CP #### [address] [address] Health Assistant: Gino Wing MD Potassium [Moles/Vol] 4.2 mmol/L Normal 3.7-5.3 [facility] Comment on above: Performed By: #### C DP, CP #### [facility] [place] [address] Health Assistant: Gino Wing MD Protein [Mass/Vol] 6.0 g/dL Low 6.4-8.3 [facility] Comment on above: Performed By: #### C DP, CP #### [facility] [place] [address] Health Assistant: Gino Wing MD Sodium [Moles/Vol] 134 mmol/L Low 135-144 [facility] Comment on above: Performed By: #### C DP, CP #### [facility] [place] [address] Health Assistant: Gino Wing MD Urea nitrogen [Mass/Vol] 6 mg/dL Normal 6-20 [facility] Comment on above: Performed By: #### C DP, CP #### [facility] [address] [place] [address] Health Assistant: Gino Wing MD Comprehensive Metabolic Pane [facility] 05-26-2022 Albumin [Mass/Vol] 2.4 g/dL Low 3.5 - 5.2 g/dL [facility] Albumin/Globulin [Mass ratio] 0.9 {ratio} Low 1 - 2.5 [facility] ALP (Bld) [Catalytic activity/Vol] 79 U/L 35 - 104 U/L [facility] ALT [Catalytic activity/Vol] 10 U/L 5 - 33 U/L [facility] Anion gap [Moles/Vol] 12 mmol/L 9 - 17 mmol/L [facility] AST [Catalytic activity/Vol] 20 U/L NINF - 32 U/L [facility] Bilirubin [Mass/Vol] mg/dL Low 0.3 - 1 .2 mg/dL [facility] Calcium [Mass/Vol] 6.6 mg/dL Low 8.6 - 10. 4 mg/dL [facility] Chloride [Moles/Vol] 101 mmol/L 98 - 10 7 mmol/L [facility] CO2 [Moles/Vol] 19 mmol/L Low 20 - 31 mmol/L [facility] Creatinine [Mass/Vol] 0.6 mg/dL 0.5 - 0.9 mg/dL [facility] GFR/1.73 sq M.predicted MDRD (S/P/Bld) [Vol rate/Area] - PINF [facility] Comment on above: Effective May 24, [...] 103 mg/dL High 70 - 99 mg/dL [facility] Interpretation and review of laboratory results Abnormal [facility] Potassium [Moles/Vol] 4.3 mmol/L 3.7 - 5.3 mmol/L [facility] Protein [Mass/Vol] 5.2 g/dL Low 6.4 - 8.3 g/dL [facility] Sodium [Moles/Vol] 132 mmol/L Low 135 - 144 mmol/L [facility] Urea nitrogen (BldV) [Mass/Vol] 6 mg/dL 6 - 20 mg/dL [facility] Protein / Creatinine Ratio, Urineon 05-26-2022 Creatinine, Ur 33.9 mg/dL 28 - 217 mg/dL [facility] Interpretation and review of laboratory results Abnormal [facility] Protein (U) [Mass/Vol] 26 mg/dL [facility] Comment on above: No normal range esta blished. Urine Total Protein Creatinine Ratio 0.77 High 0 - 0.2 [facility] Protein,Tot,Florence Uron 2021 Creatinine [Mass/Vol] 33.9 mg/dL Normal 28.0-217.0 [facility] Comment on above: Performed By: #### Lydia CALDWELL URTPRT #### [address] [address] Health Assistant: Gino Wing MD Tot Prot. Conc. 26 mg/dL Normal [facility] Comment on above: Result Comment: No n ormal range established. Performed By: #### Lydia CALDWELL URTPRT #### [facility] [address] [place] [address] Health Assistant: Gino Wing MD TP/Cre Ratio 0.77 High 0.00-0.20 [facility] Comment on above: Performed By: #### Lydia CALDWELL URTPRT #### [address] [address] Health Assistant: Gino Wing MD T.pallidum Ab Screenon 05-26 T.pallidum Ab Screen Non-Reactive Normal NR [facility] Comment on above: Result Comment: T. pallidum antibodies are not detected. There is no serological evidence of infection with T. pallidum (early primary syphilis cannot be excluded). Retest in 2-4 weeks if syphilis is clinically suspect. Performed By: #### Jeremiah JULES CP #### [address] [address] Health Assistant: Gino Wing MD APTTon 05-25-2022 aPTT Coag (Bld) [Time] 24.7 s Normal 20.5-30.5 [facility] Comment on above: Result Comment: IV Heparin Therapy Range: 48.6-77.8 Performed By: #### Jeremiah JULES, CP #### [address] [address] Health Assistant: Gino Wing MD aPTT Coag (Bld) [Time] 24.7 s [facility] Comment on above: IV Heparin Therapy Range: 48.6-77.8 [facility] 05-25-2022 Erythrocyte distribution width (RBC) [Ratio] 12.6 % Normal 11.8-14.4 [facility] Comment on above: Performed By: #### M G, FIB, LD, URI, HAPT, CBC, CP, PTT, PT #### [address] [address] Health Assistant: Gino Wing MD Hematocrit (Bld) [Volume fraction] 31.0 % Low 36.3-47.1 [facility] Comment on above: Performed By: #### M G, FIB, LD, URI, HAPT, CBC, CP, PTT, PT #### [place] [address] Health Assistant: Gino Wing MD Hemoglobin (Bld) [Mass/Vol] 10.4 g/dL Low 11.9-15.1 [facility] Comment on above: Performed By: #### M G, FIB, LD, URI, HAPT, CBC, CP, PTT, PT #### [place] [address] Health Assistant: Gino Wing MD MCH (RBC) [Entitic mass] 29.5 pg Normal 25.2-33.5 [facility] Comment on above: Performed By: #### M G, FIB, LD, URI, HAPT, CBC, CP, PTT, PT #### [address] [address] Health Assistant: Gino Wing MD MCHC (RBC) [Mass/Vol] 33.5 g/dL Normal 28.4-34.8 [facility] Comment on above: Performed By: #### M G, FIB, LD, URI, HAPT, CBC, CP, PTT, PT #### [address] [phone] Health Assistant: Gino Wing MD MCV (RBC) [Entitic vol] 87.8 fL Normal 82.6-102.9 [facility] Comment on above: Performed By: #### M G, FIB, LD, URI, HAPT, CBC, CP, PTT, PT #### [address] [address] Health Assistant: Gino Wing MD NRBC Automated 0.0 per [address] [facility] Comment on above: Performed By: #### M G, FIB, LD, URI, HAPT, CBC, CP, PTT, PT #### [address] [address] Health Assistant: Gino Wing MD Platelet mean volume (Bld) [Entitic vol] 9.6 fL Normal 8.1-13.5 [facility] Comment on above: Performed By: #### M G, FIB, LD, URI, HAPT, CBC, CP, PTT, PT #### [address] [address] Health Assistant: Gino Wing MD Platelets (Bld) [#/Vol] 343 10*3/uL Normal 138-453 [facility] Comment on above: Performed By: #### M G, FIB, LD, URI, HAPT, CBC, CP, PTT, PT #### [address] [address] Health Assistant: Gino Wing MD RBC (Bld) [#/Vol] 3.53 10*6/uL Low 3.95-5.11 [facility] Comment on above: Performed By: #### M G, FIB, LD, URI, HAPT, CBC, CP, PTT, PT #### [address] [address] Health Assistant: Gino Wing MD WBC (Bld) [#/Vol] 13.2 10*3/uL High 3.5-11.3 [facility] Comment on above: Performed By: #### M G, FIB, LD, URI, HAPT, CBC, CP, PTT, PT #### [facility] [address] [place] [address] Health Assistant: Gino Wing MD Hematocrit (Bld) [Volume fraction] 31.0 % Low 36.3 - 47.1 % [facility] Hemoglobin (Bld) [Mass/Vol] 10.4 g/dL Low 11.9 - 15.1 g/dL [facility] Interpretation and review of laboratory results Abnormal [facility] MCH (RBC) [Entitic mass] 29.5 pg 25.2 - 33.5 pg [facility] MCHC (RBC) [Mass/Vol] 33.5 g/dL 28.4 - 34.8 g/dL [facility] MCV (RBC) [Entitic vol] 87.8 fL 82.6 - 102.9 fL [facility] NRBC Automated 0.0 0.0 per 100 WBC [facility] Platelet distribution width (Bld) [Ratio] 12.6 % 11.8 - 14.4 % [facility] Platelet mean volume (Bld) [Entitic vol] 9.6 fL 8.1 - 13.5 fL [facility] Platelets (Bld) [#/Vol] 343 10*3/uL [facility] RBC (Bld) [#/Vol] 3.53 10*6/uL Low 3.95 - 5.1 1 m/uL [facility] WBC (Bld) [#/Vol] 13.2 10*3/uL High [facility] CBC with Auto Differentialon 05-25-2022 Absolute Eos # [facility] Absolute Immature Granulocyte 0.17 [facility] Absolute Lymph # 2.57 [facility] Absolute [place] # 1.40 High [facility] Basophils (Bld) [#/Vol] 0.03 10*3/uL [facility] Basophils/100 WBC (Bld) 0 % 0 - 2 % [facility] Eosinophils/100 WBC (Bld) 0 % Low 1 - 4 % [facility] Hematocrit (Bld) [Volume fraction] 29.8 % Low 36.3 - 47.1 % [facility] Hemoglobin (Bld) [Mass/Vol] 10.1 g/dL Low 11.9 - 15.1 g/dL [facility] Immature granulocytes/100 WBC (Bld) 1 % High 0 [facility] Interpretation and review of laboratory results Abnormal [facility] Lymphocytes/100 WBC (Bld) 15 % Low 24 - 43 % [facility] MCH (RBC) [Entitic mass] 29.8 pg 25.2 - 33.5 pg [facility] MCHC (RBC) [Mass/Vol] 33.9 g/dL 28.4 - 34.8 g/dL [facility] MCV (RBC) [Entitic vol] 87.9 fL 82.6 - 102.9 fL [facility] Monocytes/100 WBC (Bld) 8 % 3 - 12 % [facility] NRBC Automated 0.0 0.0 per 100 WBC [facility] Platelet distribution width (Bld) [Ratio] 12.7 % 11.8 - 14.4 % [facility] Platelet mean volume (Bld) [Entitic vol] 9.4 fL 8.1 - 13.5 fL [facility] Platelets (Bld) [#/Vol] 350 10*3/uL [facility] RBC (Bld) [#/Vol] 3.39 10*6/uL Low 3.95 - 5.1 1 m/uL [facility] Segmented neutrophils/100 WBC (Bld) 76 % High 36 - 65 % [facility] Segs Absolute 12.92 High [facility] WBC (Bld) [#/Vol] 17.1 10*3/uL High [facility] CBC with Diffon 05-25-2022 Abs. Basophil 0.03 k/uL Normal 0.00-0.20 [facility] Comment on above: Performed By: #### C DP, CP #### [address] [address] Health Assistant: Gino Wing MD Abs. Eosinophil <0.03 Normal 0.00-0.44 [facility] Comment on above: Performed By: #### C DP, CP #### [address] [address] Health Assistant: Gino Wing MD Abs.Imm.Granulocyte 0.17 k/uL Normal 0.00-0.30 [facility] Comment on above: Performed By: #### C DP, CP #### [place] [address] Health Assistant: Gino Wing MD Abs.Neutrophil (Seg) 12.92 k/uL High 1.50-8.10 [facility] Comment on above: Performed By: #### C DP, CP #### [place] [address] Health Assistant: Gino Wing MD Basophils/100 WBC (Bld) 0 % Normal 0-2 [facility] Comment on above: Performed By: #### C DP, CP #### [address] [address] Health Assistant: Gino Wing MD Eosinophils/100 WBC (Bld) 0 % Low 1-4 [facility] Comment on above: Performed By: #### C DP, CP #### [place] [address] Health Assistant: Gino Wing MD Erythrocyte distribution width (RBC) [Ratio] 12.7 % Normal 11.8-14.4 [facility] Comment on above: Performed By: #### C DP, CP #### [address] [address] Health Assistant: Gino Wing MD Hematocrit (Bld) [Volume fraction] 29.8 % Low 36.3-47.1 [facility] Comment on above: Performed By: #### C DP, CP #### [address] [address] Health Assistant: Gino Wing MD Hemoglobin (Bld) [Mass/Vol] 10.1 g/dL Low 11.9-15.1 [facility] Comment on above: Performed By: #### C DP, CP #### [address] [address] Health Assistant: Gino Wing MD Immature granulocytes/100 WBC (Bld) 1 % High 0 [facility] Comment on above: Performed By: #### C DP, CP #### [address] [address] Health Assistant: Gino Wing MD Lymphocytes (Bld) [#/Vol] 2.57 10*3/uL Normal 1.10-3.70 [facility] Comment on above: Performed By: #### C DP, CP #### [address] [address] Health Assistant: Gino Wing MD Lymphocytes/100 WBC (Bld) 15 % Low 24-43 [facility] Comment on above: Performed By: #### C DP, CP #### [place] [address] Health Assistant: Gino Wing MD MCH (RBC) [Entitic mass] 29.8 pg Normal 25.2-33.5 [facility] Comment on above: Performed By: #### C DP, CP #### [address] [address] Health Assistant: Gino Wing MD MCHC (RBC) [Mass/Vol] 33.9 g/dL Normal 28.4-34.8 [facility] Comment on above: Performed By: #### C DP, CP #### [address] [address] Health Assistant: Gino Wing MD MCV (RBC) [Entitic vol] 87.9 fL Normal 82.6-102.9 [facility] Comment on above: Performed By: #### C DP, CP #### [address] [address] Health Assistant: Gino Wing MD Monocytes (Bld) [#/Vol] 1.40 10*3/uL High 0.10-1.20 [facility] Comment on above: Performed By: #### C DP, CP #### [address] [address] Health Assistant: Gino Wing MD Monocytes/100 WBC (Bld) 8 % Normal 3-12 [facility] Comment on above: Performed By: #### C DP, CP #### [address] [address] Health Assistant: Gino Wing MD Neutrophil (Seg) 76 % High 36-65 [facility] Comment on above: Performed By: #### C DP, CP #### [address] [address] Health Assistant: Gino Wing MD NRBC Automated 0.0 per [address] [facility] Comment on above: Performed By: #### C DP, CP #### [address] [address] Health Assistant: Gino Wing MD Platelet mean volume (Bld) [Entitic vol] 9.4 fL Normal 8.1-13.5 [facility] Comment on above: Performed By: #### C DP, CP #### [address] [address] Health Assistant: Gino Wing MD Platelets (Bld) [#/Vol] 350 10*3/uL Normal 138-453 [facility] Comment on above: Performed By: #### C DP, CP #### [facility] [address] [place] [address] Health Assistant: Gino Wing MD RBC (Bld) [#/Vol] 3.39 10*6/uL Low 3.95-5.11 [facility] Comment on above: Performed By: #### C DP, CP #### [facility] [address] [place] [address] Health Assistant: Gino Wing MD WBC (Bld) [#/Vol] 17.1 10*3/uL High 3.5-11.3 [facility] Comment on above: Performed By: #### C DP, CP #### [address] [address] Health Assistant: Gino Wing MD CT HEAD WO CONTRASTon [...] Dale Barcenas MD 05/25/[address] [facility] No acute intracrania l abnormality. [facility] EXAMINATION: CT OF THE HEAD WITHOUT [...] of the visualized skull or soft tissues. [facility] Dale Barcenas MD - 05/25/2022 EXAMINATION: [...] soft tissues. IMPRESSION: No acute intracranial abnormality. [facility] Phone: Radiology Study observation (narrative) [facility] Work Phone: CT HEAD WO CONTRASTOrdered B y: Dale Barcenas on 05-25-2022 [facility] Work Phone: Comp Metabolic Profon 2021 ALT [Catalytic activity/Vol] 5 U/L Normal 5-33 [facility] Comment on above: Performed By: #### C BC, CP #### [facility] [address] [place] [address] Health Assistant: Gino Wing MD Bilirubin [Mass/Vol] mg/dL Low 0.3-1.2 [facility] Comment on above: Performed By: #### C BC, CP #### [facility] [address] [place] [address] Health Assistant: Gino Wing MD Albumin [Mass/Vol] 3.1 g/dL Low 3.5-5.2 [facility] Comment on above: Performed By: #### C BC, CP #### [facility] [address] [place] [address] Health Assistant: Gino Wing MD Albumin/Glob Ratio 1.0 Normal 1.0-2.5 [facility] Comment on above: Performed By: #### C BC, CP #### [facility] [employer] [address] [place] [address] Health Assistant: Gino Wing MD Alkaline Phos 79 U/L Normal 35-104 [facility] Comment on above: Performed By: #### C BC, CP #### [facility] [employer] [address] [place] [address] Health Assistant: Gino Wing MD Anion gap [Moles/Vol] 12 mmol/L Normal 9-17 [facility] Comment on above: Performed By: #### C BC, CP #### [facility] [employer] [address] [place] [address] Health Assistant: Gino Wing MD AST [Catalytic activity/Vol] 9 U/L Normal <32 [facility] Comment on above: Performed By: #### C DHARA, CP #### [address] [address] Health Assistant: Gino Wing MD Calcium [Mass/Vol] 6.6 mg/dL Low 8.6-10.4 [facility] Comment on above: Performed By: #### C BC, CP #### [address] [address] Health Assistant: Gino Wing MD Chloride [Moles/Vol] 103 mmol/L Normal 98-107 [facility] Comment on above: Performed By: #### C DHARA, CP #### [address] [address] Health Assistant: Gino Wing MD CO2 [Moles/Vol] 19 mmol/L Low 20-31 [facility] Comment on above: Performed By: #### C DHARA, CP #### [address] [address] Health Assistant: Gino Wing MD Creatinine [Mass/Vol] 0.46 mg/dL Low 0.50-0.90 [facility] Comment on above: Performed By: #### C DHARA, CP #### [address] [address] Health Assistant: Gino Wing MD GFR/1.73 sq M.predicted among non-blacks MDRD (S/P/Bld) [Vol rate/Area] mL/min/{1.73_m2} Normal >60 [facility] Comment on above: Result Comment: Effective May [...] Performed By: #### C DHARA, CP #### [facility] [address] [place] [address] Health Assistant: Gino Wing MD Glucose [Mass/Vol] 118 mg/dL High 70-99 [facility] Comment on above: Performed By: #### C BC, CP #### [facility] [address] [place] [address] Health Assistant: Gino Wing MD Potassium [Moles/Vol] 3.8 mmol/L Normal 3.7-5.3 [facility] Comment on above: Performed By: #### C DHARA, CP #### [facility] [address] [place] [address] Health Assistant: Gino Wing MD Protein [Mass/Vol] 6.2 g/dL Low 6.4-8.3 [facility] Comment on above: Performed By: #### C DHARA, CP #### [facility] [address] [place] [address] Health Assistant: Gino Wing MD Sodium [Moles/Vol] 134 mmol/L Low 135-144 [facility] Comment on above: Performed By: #### C DHARA, CP #### [facility] [address] [place] [address] Health Assistant: Gino Wing MD Urea nitrogen [Mass/Vol] 6 mg/dL Normal 6-20 [facility] Comment on above: Performed By: #### C DHARA, CP #### [facility] [address] [place] [address] Health Assistant: Gino Wing MD Comprehensive Metabolic Pane [facility] 05-25-2022 Albumin [Mass/Vol] 3.1 g/dL Low 3.5 - 5.2 g/dL [facility] Albumin/Globulin [Mass ratio] 1.1 {ratio} 1 - 2.5 [facility] ALP (Bld) [Catalytic activity/Vol] 82 U/L 35 - 104 U/L [facility] ALT [Catalytic activity/Vol] U/L Low 5 - 33 U/L [facility] Anion gap [Moles/Vol] 13 mmol/L 9 - 17 mmol/L [facility] AST [Catalytic activity/Vol] 17 U/L NINF - 32 U/L [facility] Bilirubin [Mass/Vol] mg/dL Low 0.3 - 1 .2 mg/dL [facility] Calcium [Mass/Vol] 6.6 mg/dL Low 8.6 - 10. 4 mg/dL [facility] Chloride [Moles/Vol] 102 mmol/L 98 - 10 7 mmol/L [facility] CO2 [Moles/Vol] 19 mmol/L Low 20 - 31 mmol/L [facility] Creatinine [Mass/Vol] 0.57 mg/dL 0.5 - 0.9 mg/dL [facility] GFR/1.73 sq M.predicted MDRD (S/P/Bld) [Vol rate/Area] - PINF [facility] Comment on above: Effective May 24, [...] 109 mg/dL High 70 - 99 mg/dL [facility] Interpretation and review of laboratory results Abnormal [facility] Potassium [Moles/Vol] 4.2 mmol/L 3.7 - 5.3 mmol/L [facility] Protein [Mass/Vol] 6.0 g/dL Low 6.4 - 8.3 g/dL [facility] Sodium [Moles/Vol] 134 mmol/L Low 135 - 144 mmol/L [facility] Urea nitrogen (BldV) [Mass/Vol] 6 mg/dL 6 - 20 mg/dL [facility] Albumin [Mass/Vol] 3.1 g/dL Low 3.5 - 5.2 g/dL [facility] Albumin/Globulin [Mass ratio] 1.0 {ratio} 1 - 2.5 [facility] ALP (Bld) [Catalytic activity/Vol] 79 U/L 35 - 104 U/L [facility] ALT [Catalytic activity/Vol] 5 U/L 5 - 33 U/L [facility] Anion gap [Moles/Vol] 12 mmol/L 9 - 17 mmol/L [facility] AST [Catalytic activity/Vol] 9 U/L NINF - 32 U/L [facility] Bilirubin [Mass/Vol] mg/dL Low 0.3 - 1 .2 mg/dL [facility] Calcium [Mass/Vol] 6.6 mg/dL Low 8.6 - 10. 4 mg/dL [facility] Chloride [Moles/Vol] 103 mmol/L 98 - 10 7 mmol/L [facility] CO2 [Moles/Vol] 19 mmol/L Low 20 - 31 mmol/L [facility] Creatinine [Mass/Vol] 0.46 mg/dL Low 0.5 - 0.9 mg/dL [facility] GFR/1.73 sq M.predicted MDRD (S/P/Bld) [Vol rate/Area] - PINF [facility] Comment on above: Effective May 24, [...] 118 mg/dL High 70 - 99 mg/dL [facility] Interpretation and review of laboratory results Abnormal [facility] Potassium [Moles/Vol] 3.8 mmol/L 3.7 - 5.3 mmol/L [facility] Protein [Mass/Vol] 6.2 g/dL Low 6.4 - 8.3 g/dL [facility] Sodium [Moles/Vol] 134 mmol/L Low 135 - 144 mmol/L [facility] Urea nitrogen (BldV) [Mass/Vol] 6 mg/dL 6 - 20 mg/dL [facility] Fibrinogenon 05-25-2022 Fibrinogen 367 mg/dL Normal 140-420 [facility] Comment on above: Performed By: #### C BC, CP #### [employer] [address] [place] [address] Health Assistant: Gino Wing MD Fibrinogen 367 mg/dL 140 - 420 mg/dL [facility] Haptoglobinon 05-25-2022 Haptoglobin 159 mg/dL Normal 30-200 [facility] Comment on above: Performed By: #### M G, FIB, LD, URI, HAPT, CBC, CP, PTT, PT #### [facility] [address] [place] [phone] Health Assistant: Gino Wing MD Haptoglobin 159 mg/dL 30 - 200 mg/dL [facility] Lactate Dehydrogenaseon LDH [Catalytic activity/Vol] 118 U/L Low 135-214 [facility] Comment on above: Performed By: #### M G, FIB, LD, URI, HAPT, CBC, CP, PTT, PT #### [employer] [address] [place] [phone] Health Assistant: Gino Wing MD Interpretation and review of laboratory results Abnormal [facility] LD 118 U/L Low 135 - 214 U/L [facility] MAGNESIUM DRIP MONITORon Magnesium [Mass/Vol] 5.0 mg/dL Normal 3.6-6.8 [facility] Comment on above: Performed By: #### U RCX #### [facility] [address] [place] [address] Dr. Elda Velasquez Magnesiumon 05-25-2022 Magnesium [Mass/Vol] 5.0 mg/dL High 1.6-2.6 [facility] Comment on above: Performed By: #### C DHARA, CP #### [employer] [facility] [place], [place] [phone] Health Assistant: Gino Wing MD Interpretation and review of laboratory results Abnormal [facility] Magnesium [Mass/Vol] 5.0 mg/dL High 1.6 - 2 .6 mg/dL [facility] No Panel Informationon 05-25 [facility] PTon 05-25-2022 INR Coag (PPP) [Relative time] 0.9 {INR} Normal [facility] Comment on above: Result Comment: Therapeutic Range: Moderate Anticoagulant Intensity: INR = 2.0-3.0 High Anticoagulant Intensity: INR = 2.5-3.5 Performed By: #### C DHARA, CP #### [employer] [address] [place], [place] [phone] Health Assistant: Gino Wing MD PT Coag (PPP) [Time] 9.4 s Normal 9.1-12.3 [facility] Comment on above: Performed By: #### C DHARA, CP #### [employer] [facility] [place], [place] [phone] Health Assistant: Gino Wing MD Protime-INRon 05-25-2022 INR Coag (Bld) [Relative time] 0.9 {INR} [facility] Comment on above: Therapeutic Range: Moderate Anticoagulant Intensity: INR = 2.0-3.0 High Anticoagulant Intensity: INR = 2.5-3.5 PT Coag (PPP) [Time] 9.4 s [facility] Surgical Pathologyon 022 Surgical Pathology (NOTE) [...] PATHOLOGY CONSULTATION Patient Name: QIAN CLEMENTS [facility] Rec: [id number] Path Number: [id number] [facility] [employer] [facility] [facility] ANATOMIC PATHOLOGY [address] [place] [phone] [facility] Comment on above: Performed By: #### C BC, CP #### [employer] [address] [place] [phone] Health Assistant: Gino Wing MD T. pallidum Abon 05-25-2022 T. pallidum, IgG Non-Reactive NONREACTIVE [facility] Comment on above: T. pallidum antibodies are not detected. There is no serological evidence of infection with T. pallidum (early primary syphilis cannot be excluded). Retest in 2-4 weeks if syphilis is clinically suspect. [facility] TYPE AND SCREENon 05-25-2022 ABO/Rh Positive [facility] [employer] Arm [place] Number BE [id number] [facility] [facility] Expiration Date 05/28/2022,235 MONSERRAT [facility] Type + Screenon 05-25-2022 Type + Screen Sample Expiration 05/28/2022,2359 Arm Band Number BE [id number] ABO/Rh(D) O POSITIVE Antibody Screen NEGATIVE Normal [facility] Comment on above: Performed By: #### T YS #### [employer] [address] [place] [address] Health Assistant: Gino Wing MD US PREG BIOPHY W [...] by: AARON DELACRUZ Date: 2022-05-25 07:12 Normal [facility] US PREG GROWTHon 05-25-2022 US PREG [...] DELACRUZ Date: 2022-05-25 07:27 Normal [facility] Uric Acidon 05-25-2022 Urate [Mass/Vol] 3.8 mg/dL Normal 2.4-5.7 [facility] Comment on above: Performed By: #### C BC, CP #### [facility] [address] [place] [address] Health Assistant: Gino Wing MD Urate [Mass/Vol] 3.8 mg/dL 2.4 - 5.7 mg/dL [facility] CBC AUTO DIFFon 05-24-2022 BASO # 0.0 103/ul Normal 0.0-0.1 [facility] Comment on above: Performed By: #### C BC #### [facility] [address] [place] [address] Dr. Elda Velasquez Basophils/100 WBC (Bld) 0.3 % Normal 0.2-2.0 [facility] Comment on above: Performed By: #### C BC #### [facility] [address] [place] [address] Dr. Elda Velasquez EO # 0.0 103/ul Normal 0.0-0.7 [facility] Comment on above: Performed By: #### C BC #### [facility] [address] [place] [address] Dr. Elad Velasquez Eosinophils/100 WBC (Bld) 0.2 % Critically low 0.9-7.0 [facility] Comment on above: Performed By: #### C BC #### [facility] [address] [place] [address] Dr. Elda Velasquez Erythrocyte distribution width (RBC) [Ratio] 12.3 % Normal 11.0-15.0 [facility] Comment on above: Performed By: #### C BC #### [facility] [address] [place] [address] Dr. Elda Velasquez Hematocrit (Bld) [Volume fraction] 31.5 % Critically low 36.0-48.0 [facility] Comment on above: Performed By: #### C BC #### [facility] [address] [place] [address] Dr. Elda Velasquez Hemoglobin (Bld) [Mass/Vol] 10.2 g/dL Critically low 12.0-16.0 [facility] Comment on above: Performed By: #### C BC #### [facility] [address] [place] [address] Dr. Elda Velasquez IG # 0.16 10e3/ul Critically high 0.00-0.03 [facility] Comment on above: Performed By: #### C BC #### [facility] [address] [place] [address] Dr. Elda Velasuqez IG % 1.3 % Critically high 0.0-0.5 [facility] Comment on above: Performed By: #### C BC #### [facility] [address] [place] [address] Dr. Elda Velasquez LYMPH # 2.1 103/ul Normal 1.2-3.8 [facility] Comment on above: Performed By: #### C BC #### [facility] [address] [place] [address] Dr. Elda Velasquez Lymphocytes/100 WBC (Bld) 17.1 % Critically low 20.5-60.0 [facility] Comment on above: Performed By: #### C BC #### [facility] [address] [place] [address] Dr. Edla Velasquez MANUAL DIFF REQ NO Normal [facility] Comment on above: Performed By: #### C BC #### [facility] [address] [place] [address] Dr. Elda Velasquez MCH (RBC) [Entitic mass] 29.0 pg Normal 26.7-34.0 [facility] Comment on above: Performed By: #### C BC #### [facility] [address] [place] [address] Dr. Elda Velasquez MCHC (RBC) [Mass/Vol] 32.4 g/dL Normal 29.9-35.2 [facility] Comment on above: Performed By: #### C BC #### [facility] [address] [address] [address] Elda Velasquez MCV (RBC) [Entitic vol] 89.5 fL Normal 81.0-99.0 [facility] Comment on above: Performed By: #### C BC #### [facility] [address] [address] [address] Elda Velasquez MONO # 0.9 103/ul Critically high 0.3-0.8 [facility] Comment on above: Performed By: #### C BC #### [facility] [address] [place] [address] Dr. Elda Velasquez Monocytes/100 WBC (Bld) 7.1 % Normal 1.7-12.0 [facility] Comment on above: Performed By: #### C BC #### [facility] [address] [place] [address] Dr. Elda Velasquez NEUT # 8.9 103/ul Critically high 1.4-6.5 [facility] Comment on above: Performed By: #### C BC #### [facility] [address] [place] [address] Dr. Elda Velasquez Neutrophils/100 WBC (Bld) 74.0 % Normal 43.0-75.0 [facility] Comment on above: Performed By: #### C BC #### [facility] [address] [address] [address] Elda Velasquez Platelet mean volume (Bld) [Entitic vol] 9.4 fL Critically low 9.5-13.5 [facility] Comment on above: Performed By: #### C BC #### [facility] [address] [place] [address] Dr. Elda Velasquez PLT 340 103/ul Normal 150-450 [facility] Comment on above: Performed By: #### C BC #### [facility] [address] [place] [address] Dr. Elda Velasquez RBC 3.52 106/ul Critically low 4.20-5.40 [facility] Comment on above: Performed By: #### C BC #### [facility] [address] [place], [place] [address] Dr. Elda Velasquez WBC 12.0 103/ul Critically high 4.0-11.0 [facility] Comment on above: Performed By: #### C BC #### [facility] [address] [place], [place] [address] Dr. Elda Velasquez CTA CHEST WO W [...] by: MARGOT LAU Date: 2022-05-24 19:33 Normal [facility] LDHon 05-24-2022 LDH 90 U/L Normal 81-234 [facility] Comment on above: Performed By: #### U JUAN F, LDH, CMP #### [facility] [address] [address] [address] Elda Velasquez PROF 14(COMP METB)on 022 Albumin [Mass/Vol] 2.3 g/dL Critically low 3.4-5.0 [facility] [place] Comment on above: Performed By: #### U JUAN F, LDH, CMP #### [facility] [address] [address] [address] Elda Velasquez Albumin/Globulin [Mass ratio] 0.6 {ratio} Normal [facility] Comment on above: Performed By: #### U JUAN F, LDH, CMP #### [facility] [address] [address] [address] Elda Velasquez ALP [Catalytic activity/Vol] 87 U/L Normal 46-116 [facility] Comment on above: Performed By: #### U JUAN F, LDH, CMP #### [facility] [address] [address] [address] Elda Velasquez ALT [Catalytic activity/Vol] 11 U/L Critically low 14-59 [facility] Comment on above: Performed By: #### U JUAN F, LDH, CMP #### [facility] [address] [address] [address] Elda Velasquez Anion gap [Moles/Vol] 13.3 mmol/L Normal [facility] Comment on above: Performed By: #### U JUAN F, LDH, CMP #### [facility] [address] [address] [address] Elda Velasquez AST [Catalytic activity/Vol] 5 U/L Critically low 15-37 [facility] Comment on above: Performed By: #### U JUAN F, LDH, CMP #### [facility] [address] [address] [address] Elda Velasquez Bilirubin [Mass/Vol] 0.1 mg/dL Critically low 0.2-1.0 [facility] Comment on above: Performed By: #### U JUAN F, LDH, CMP #### [facility] [address] [address] [address] Elda Velasquez Calcium [Mass/Vol] 8.3 mg/dL Critically low 8.5-10.1 Th e [facility] Comment on above: Performed By: #### U JUAN F, LDH, CMP #### [facility] [address] [address] [address] Elda Velasquez Chloride [Moles/Vol] 106 mmol/L Normal 98-107 [facility] Comment on above: Performed By: #### U JUAN F, LDH, CMP #### [facility] [address] [address] [address] Elda Velasquez CO2 [Moles/Vol] 22.5 mmol/L Normal 21.0-32.0 [facility] Comment on above: Performed By: #### U JUAN F, LDH, CMP #### [facility] [address] [place] [address] Dr. Elda Velasquez Creatinine [Mass/Vol] 0.72 mg/dL Normal 0.55-1.02 [facility] Comment on above: Performed By: #### U JUAN F, LDH, CMP #### [facility] [address] [place] [address] Dr. Elda Velasquez EGFR-AF NEW ZEALANDER >60 Normal >=60 [facility] Comment on above: Performed By: #### U JUAN F, LDH, CMP #### [facility] [address] [place] [address] Dr. Elda Velasquez EGFR-NON AF NEW ZEALANDER >60 Normal >=60 [facility] Comment on above: Performed By: #### U JUAN F, LDH, CMP #### [facility] [address] [place] [address] Dr. Elda Velasquez Globulin (S) [Mass/Vol] 3.7 g/dL Normal [facility] Comment on above: Performed By: #### U JUAN F, LDH, CMP #### [facility] [address] [place] [address] Dr. Elda Velasquez Glucose [Mass/Vol] 135 mg/dL Critically high 74-106 T [facility] Comment on above: Performed By: #### U JUAN F, LDH, CMP #### [facility] [address] [place] [address] Dr. Elda Velasquez Potassium [Moles/Vol] 3.8 mmol/L Normal 3.5-5.1 [facility] Comment on above: Performed By: #### U JUAN F, LDH, CMP #### [facility] [address] [place] [address] Dr. Elda Velasquez Protein [Mass/Vol] 6.0 g/dL Critically low 6.4-8.2 Th e [facility] Comment on above: Performed By: #### U JUAN F, LDH, CMP #### [facility] [address] [place] [address] Dr. Elda Velasquez Sodium [Moles/Vol] 138 mmol/L Normal 136-145 [facility] Comment on above: Performed By: #### U JUAN F, LDH, CMP #### [facility] [address] [place] [address] Dr. Elda Velasquez Urea nitrogen [Mass/Vol] 6.0 mg/dL Critically low 7.0-18.0 [facility] Comment on above: Performed By: #### U JUAN F, LDH, CMP #### [facility] [address] [place] [address] Dr. Elda Velasquez Urea nitrogen/Creatinine [Mass ratio] 8.3 mg/mg Normal [facility] Comment on above: Performed By: #### U JUAN F, LDH, CMP #### [facility] [address] [place] [address] Dr. 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 Elda Velasquez Clarity (U) CLEAR Normal CLEAR [facility] Comment on above: Performed By: #### U RCX #### [facility] [address] [place] [address] Dr. Elda Velasquez Color (U) LT. YELLOW Normal YELLOW [facility] Comment on above: Performed By: #### U RCX #### [facility] [address] [place] [address] Dr. Elda Velasquez Glucose Ql (U) Negative Normal NEGATIVE [facility] Comment on above: Performed By: #### U RCX #### [facility] [address] [address] [address] Elda Velasquez Hemoglobin Ql (U) Negative Normal NEGATIVE [facility] Comment on above: Performed By: #### U RCX #### [facility] [address] [address] [address] Elda Velasquez Ketones Ql (U) Negative Normal NEGATIVE [facility] Comment on above: Performed By: #### U RCX #### [facility] [address] [place] [address] Dr. Elda Velasquez LEUKOCYTES Negative Normal NEGATIVE [facility] Comment on above: Performed By: #### U RCX #### [facility] [address] [place] [address] Dr. Elda Velasquez Nitrite Ql (U) Negative Normal NEGATIVE [facility] Comment on above: Performed By: #### U RCX #### [facility] [address] [place] [address] Dr. Elda Velasquez pH (U) 7.0 [pH] Normal 5-9 [facility] Comment on above: Performed By: #### U RCX #### [facility] [address] [place] [address] Dr. Elda Velasquez SPEC GRAVITY 1.010 Normal 1.005-<=1.025 [facility] Comment on above: Performed By: #### U RCX #### [facility] [address] [address] [address] Elda Velasquez UA PROTEIN Negative Normal NEGATIVE/ TRACE [facility] Comment on above: Performed By: #### U RCX #### [facility] [address] [place] [address] Dr. Elda Velasquez UR MICRO IND NOT INDICATED Normal [facility] Comment on above: Performed By: #### U RCX #### [facility] [address] [place] [address] Dr. Elda Velasquez Urobilinogen Qn (U) 0.2 {Caroline'U}/dL Normal 0.2 - 1. 0 [facility] Comment on above: Performed By: #### U RCX #### [facility] [address] [place] [address] Dr. Elda Velasquez URIC ACID SERUMon 05-24-2022 Urate [Mass/Vol] 3.8 mg/dL Normal 2.6-6.0 [facility] Comment on above: Performed By: #### U JUAN F, LDH, CMP #### [facility] [address] [place] [address] Dr. Elda Velasquez US PREG CERVICAL LENGTHon US PREG CERVICAL LENGTH EXAMINATION: US PREG CERVICAL LENGTH HISTORY: Premature uterine contraction COMPARISON: No relevant comparison available. FINDINGS: position: Cephalic presentation, longitudinal lie Amniotic fluid volume: Subjectively normal Cervix: 4.5 cm], closed Heart rate: 144 bpm IMPRESSION: Closed cervix measuring 4.5 cm Electronically authenticated by: AARON DELACRUZ Date: 2022-05-24 11:52 Normal [facility] CULTURE URINEon 05-23-2022 CULTURE URINE Culture Observations : LIGHT GROWTH OF MIXED GENITAL J CARLOS. NO POTENTIAL PATHOGENS SEEN. Normal [facility] Comment on above: Performed By: #### U RCX #### [facility] [address] [place] [address] Dr. 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 Elda Velasquez Clarity (U) SL CLOUDY Abnormal CLEAR [facility] Comment on above: Performed By: #### U RCX #### [facility] [address] [place] [address] Dr. Elda Velasquez Color (U) LT. YELLOW Normal YELLOW [facility] Comment on above: Performed By: #### U RCX #### [facility] [address] [place] [address] Dr. Elda Velasquez Glucose Ql (U) Negative Normal NEGATIVE [facility] Comment on above: Performed By: #### U RCX #### [facility] [address] [address] [address] Elda Velasquez Hemoglobin Ql (U) TRACE-INTACT Abnormal NEGATIVE [facility] Comment on above: Performed By: #### U RCX #### [facility] [address] [address] [address] Elda Velasquez Ketones Ql (U) Negative Normal NEGATIVE [facility] Comment on above: Performed By: #### U RCX #### [facility] [address] [place] [address] Dr. Elda Velasquez LEUKOCYTES TRACE Abnormal NEGATIVE [facility] Comment on above: Performed By: #### U RCX #### [facility] [address] [place] [address] Dr. Elda Velasquez Nitrite Ql (U) Positive Abnormal NEGATIVE [facility] Comment on above: Performed By: #### U RCX #### [facility] [address] [place] [address] Dr. Elda Velasquez pH (U) 7.0 [pH] Normal 5-9 [facility] Comment on above: Performed By: #### U RCX #### [facility] [address] [place] [address] Dr. Elda Velasquez SPEC GRAVITY 1.015 Normal 1.005-<=1.025 [facility] Comment on above: Performed By: #### U RCX #### [facility] [address] [place] [address] Dr. Elda Velasquez UA PROTEIN Negative Normal NEGATIVE/ TRACE [facility] Comment on above: Performed By: #### U RCX #### [facility] [address] [place] [address] Dr. Elda Velasquez UR MICRO IND INDICATED Normal [facility] Comment on above: Performed By: #### U RCX #### [facility] [address] [place] [address] Dr. Elda Velasquez Urobilinogen Qn (U) 1.0 {Caroline'U}/dL Normal 0.2 - 1. 0 [facility] Comment on above: Performed By: #### U RCX #### [facility] [address] [place] [address] Dr. Elda Velasquez URINE MICROSCOPIC ONLYon BACTERIA SMALL Abnormal NONE SEEN The [facility] Comment on above: Performed By: #### U RCX #### [facility] [address] [place] [address] Dr. Elda Velasquez Bacteria identified Cx Nom (U) INDICATED Normal [facility] Comment on above: Performed By: #### U RCX #### [facility] [address] [place] [address] Dr. Elda Velasquez CAST NONE SEEN Normal NONE SEEN [facility] Comment on above: Performed By: #### U RCX #### [facility] [address] [place] [address] Dr. Elda Velasquez Crystals LM Nom (Urine sed) NONE SEEN Normal NONE SEEN [facility] Comment on above: Performed By: #### U RCX #### [facility] [address] [place] [address] Dr. Elda Velasquez Epithelial cells LM Ql (Urine sed) MODERATE Abnormal NONE SEEN /RARE [facility] Comment on above: Performed By: #### U RCX #### [facility] [address] [place] [address] Dr. Elda Velasquez MUCOUS TRACE Abnormal NONE SEEN [facility] Comment on above: Performed By: #### U RCX #### [facility] [address] [place] [address] Dr. Elda Velasquez RBC 2-5 Abnormal 0-2 [facility] Comment on above: Performed By: #### U RCX #### [facility] [address] [place] [address] Dr. Elda Velasquez WBC 2-5 Abnormal NONE SEEN The [facility] Comment on above: Performed By: #### U RCX #### [facility] [address] [place] [address] Dr. Elda Velasquez US PREG ANATOMY SINGLEon [...] by: PILAR DOBSON Date: 2022-05-04 16:28 Normal [facility] Microscopic UrinalysisOrdere d By: Pilar Garcia on 09-19-2019 - [employer] Work Phone: Amorphous, UA NOT REPORTED None [facility] Work Phone: Bacteria, UA 1+ Abnormal None [employer] Work Phone: Casts UA NOT REPORTED /LPF [employer] Work Phone: Crystals UA CALCIUM OXALATE Abnormal None /HPF [employer] Work Phone: Crystals UA 1+ Abnormal None /HPF [employer] Work Phone: Epithelial Cells UA 10 TO 20 /HPF [employer] Work Phone: Interpretation and review of laboratory results Abnormal [employer] Work Phone: Mucus, UA NOT REPORTED None [employer] Work Phone: Other Observations UA NOT REPORTED NOT REQ. [employer] Work Phone: RBC, UA 2 TO 5 [employer] Work Phone: Renal Epithelial, Urine NOT REPORTED 0 /HPF [employer] Work Phone: Trichomonas, UA NOT REPORTED None [employer] Work Phone: WBC, UA 0 TO 2 0 /HPF [employer] Work Phone: Yeast, UA NOT REPORTED None [facility] Work Phone: UrinalysisOrdered By: Pilar Garcia on 09-19-2019 Bilirubin Urine Negative NEGATIVE [employer] [facility] Work Phone: Color, UA YELLOW YELLOW [employer] Work Phone: Glucose, Ur Negative NEGATIVE [employer] Work Phone: Interpretation and review of laboratory results Abnormal [employer] Work Phone: Ketones Ql (U) Negative NEGATIVE [employer] Work Phone: Leukocyte esterase Test strip Ql (U) Negative NEGATIVE [employer] Work Phone: Nitrite, Urine Negative NEGATIVE [employer] Work Phone: pH, UA 6.0 [employer] Work Phone: Protein, UA TRACE Abnormal NEGATIVE [employer] Work Phone: Specific Allison, UA 1.025 [employer] Work Phone: Turbidity UA HAZY Abnormal CLEAR [employer] Work Phone: Urinalysis Comments [employer] Work Phone: Urine Hgb TRACE Abnormal NEGATIVE [employer] Phone: Urobilinogen, Urine Normal Normal [facility] Recommend Phone: CBC Auto Differentialon 04-22 Basophils (Bld) [#/Vol] 0.00 10*3/uL [place] Basophils/100 WBC (Bld) 0 % 0 - 2 % [place] Differential Type YES [place] Eosinophils (Bld) [#/Vol] 0.10 10*3/uL [place] Eosinophils/100 WBC (Bld) 1 % 0 - 5 % [place] Erythrocyte distribution width (RBC) [Ratio] 13.6 % 12.1 - 15.2 % [place] Hematocrit (Bld) [Volume fraction] 37.7 % 36 - 46 % [place] Hemoglobin (Bld) [Mass/Vol] 12.8 g/dL 12 - 16 g/dL [place] Interpretation and review of laboratory results Abnormal [place] Lymphocytes (Bld) [#/Vol] 1.90 10*3/uL [place] Lymphocytes/100 WBC (Bld) 20 % 15 - 40 % [place] MCH (RBC) [Entitic mass] 29.1 pg 26 - 34 pg [place] MCHC (RBC) [Mass/Vol] 34.0 g/dL 31 - 37 g/dL [place] MCV (RBC) [Entitic vol] 85.7 fL 80 - 100 fL [place] Monocytes (Bld) [#/Vol] 0.40 10*3/uL [place] Monocytes/100 WBC (Bld) 5 % 4 - 8 % [place] Platelet mean volume (Bld) [Entitic vol] NOT REPORTED 6 - 12 fL [place] Platelets (Bld) [#/Vol] NOT REPORTED [place] Platelets (Bld) [#/Vol] 378 10*3/uL [place] RBC (Bld) [#/Vol] 4.40 10*6/uL 4 - 5.2 m/uL [place] RBC morphology finding Nom (Bld) NOT REPORTED [place] Segmented neutrophils/100 WBC (Bld) 74 % 47 - 75 % [place] Segs Absolute 7.20 High [place] WBC (Bld) [#/Vol] NOT REPORTED per 100 WBC [place] WBC (Bld) [#/Vol] 9.7 10*3/uL [place] WBC Morphology NOT REPORTED [place] Comprehensive Metabolic Pane l w/ Reflex to MGon 05-06-2019 Albumin [Mass/Vol] 3.9 g/dL 3.5 - 5.2 g/dL [place] Albumin/Globulin [Mass ratio] NOT REPORTED [place] ALP [Catalytic activity/Vol] 84 U/L 35 - 104 U/L [place] ALT [Catalytic activity/Vol] 14 U/L 5 - 33 U/L [place] Anion gap [Moles/Vol] 13 mmol/L 9 - 17 mmol/L [place] AST [Catalytic activity/Vol] 14 U/L <32 [place] Bilirubin Ql (U) 0.34 mg/dL 0.3 - 1.2 mg/dL [place] Bun/Cre Ratio 16 [place] Calcium [Mass/Vol] 9.6 mg/dL 8.6 - 10. 4 mg/dL [place] Chloride [Moles/Vol] 102 mmol/L 98 - 10 7 mmol/L [place] CO2 [Moles/Vol] 23 mmol/L 20 - 31 mmol/L [place] Creatinine [Mass/Vol] 0.61 mg/dL 0.5 - 0.9 mg/dL [place] GFR >60 >60 mL/min [place] GFR Non- >60 >60 mL/min [place] GFR/1.73 sq M predicted among non-blacks MDRD (S/P/Bld) [Vol rate/Area] NOT REPORTED [place] GFR/1.73 sq M predicted among non-blacks MDRD (S/P/Bld) [Vol rate/Area] [place] Comment on above: Average GFR for 20-2 9 years old: 116 mL/min/1.73sq m Chronic Kidney Disease: <60 mL/min/1.73sq m Kidney failure: <15 mL/min/1.73sq m eGFR calculated using average adult body mass. Additional eGFR calculator available at: http://www.[employer]/multiple_crcl_2012.htm Glucose [Mass/Vol] 101 mg/dL High 70 - 99 mg/dL [place] Interpretation and review of laboratory results Abnormal [place] Potassium [Moles/Vol] 4.2 mmol/L 3.7 - 5.3 mmol/L [place] Protein [Mass/Vol] 6.8 g/dL 6.4 - 8.3 g/dL [place] Sodium [Moles/Vol] 138 mmol/L 135 - 144 mmol/L [place] Urea nitrogen [Mass/Vol] 10 mg/dL 6 - 20 mg/dL [place] Otheron 05-06-2019 Immature granulocytes (Bld) [#/Vol] NOT REPORTED 0 % [place] Sedimentation Rateon 019 Sed Rate 23 mm 0 - 30 mm [place] Strep Screen Group A Throato n 05-06-2019 S. pyogenes Ag IA Ql (Unsp spec) Rapid Strep A negative. A negative Rapid Group A Strep Screen result does not rule out the possibility of Group A Streptococci in the specimen. A Group A Strep DNA test is available upon request. [place] Special Requests NOT REPORTED [place] Specimen Description .THROAT [place] Urinalysis, reflex to micros copicon 05-06-2019 Bilirubin Urine Negative NEGATIVE [place] Color, UA YELLOW YELLOW [place] Glucose, Ur Negative NEGATIVE [place] Ketones Ql (U) Negative NEGATIVE [place] Leukocyte esterase Test strip Ql (U) Negative NEGATIVE [facility], [place] Nitrite, Urine Negative NEGATIVE [facility], [place] pH, UA 7.0 [place] Protein (U) [Mass/Vol] Negative NEGATIVE [facility], [place] Specific Allison, UA 1.015 [facility], [place] Turbidity UA CLEAR CLEAR [facility], [place] Urinalysis Comments [place] Urine Hgb Negative NEGATIVE [facility], [place] Urobilinogen, Urine Normal Normal [place] Vital Signs Date Time Vital Sign Value Performing Clinician Faci lity 03-07-2023 08:52-0400 Body height 162.6 cm Jeronimo Fofana DO Work Phone: [facility] [employer] 03-07-2023 08:52-0400 Body mass index (BMI) [Ratio] 41.2 kg/m2 Jeronimo Fofana DO Work Phone: [facility] [employer] 03-07-2023 08:52-0400 Body weight 108.86 kg Jeronimo [facility]ana DO [facility] 03-07-2023 08:52-0400 Diastolic blood pressure 84 mm[Hg] Jeronimo [facility]ofana DO [facility] 03-07-2023 08:52-0400 Respiratory rate 20 /min Jeronimo Fofana DO [facility] 03-07-2023 08:52-0400 SaO2% (BldA) [Mass fraction] 98 % Jeronimo Fofana DO Work [facility] 03-07-2023 08:52-0400 Systolic blood pressure 101 mm[Hg] Jeronimo [facility]ofana DO [facility] 03-07-2023 08:51-0400 Body temperature 98.29 [degF] Jeronimo [facility]ofana DO [facility] 03-07-2023 08:51-0400 Heart rate 96 /min Jeronimo Fofana DO [facility] 11-14-2022 08:08-0400 Body height 160 cm Manoj Flores MD Work Phone: [employer] 11-14-2022 08:08-0400 Body mass index (BMI) [Ratio] 41.98 kg/m2 Manoj Flores MD Work Phone: [employer] 11-14-2022 08:08-0400 Body temperature 98.2 [degF] Manoj Flores MD Work Phone: [employer] 11-14-2022 08:08-0400 Body weight 107.5 kg Manoj Flores MD Work Phone: [employer] 11-14-2022 08:08-0400 Diastolic blood pressure 95 mm[Hg] Manoj Flores MD Work Phone: [employer] 11-14-2022 08:08-0400 Heart rate 87 /min Manoj Flores MD Work Phone: [employer] 11-14-2022 08:08-0400 Respiratory rate 20 /min Manoj Flores MD Work Phone: [employer] 11-14-2022 08:08-0400 SaO2% (BldA) [Mass fraction] 98 % Manoj Flores MD Work Phone: [employer] 11-14-2022 08:08-0400 Systolic blood pressure 141 mm[Hg] Manoj Flores MD Work Phone: [employer] 05-29-2022 12:29-0400 Diastolic blood pressure 80 mm[Hg] Tommy Cherry MD Work Phone: [employer] 05-29-2022 12:29-0400 Heart rate 94 /min Tommy Cherry MD Work Phone: [employer] 05-29-2022 12:29-0400 Respiratory rate 16 /min Tommy Cherry MD Work Phone: [employer] 05-29-2022 12:29-0400 Systolic blood pressure 132 mm[Hg] Tommy Cherry MD Work Phone: [facility] [employer] 05-29-2022 08:52-0400 Body temperature 98.01 [degF] Tommy Cherry MD Work Phone: [facility] [employer] 05-29-2022 08:52-0400 SaO2% (BldA) [Mass fraction] 98 % Tommy Cherry MD Work Phone: [facility] [employer] 09-19-2019 17:05-0500 Diastolic blood pressure 76 mm[Hg] Pilar Garcia MD Work Phone: [employer] Work Phone: 09-19-2019 17:05-0500 Heart rate 88 /min Pilar Garcia MD Work Phone: [employer] Work Phone: 09-19-2019 17:05-0500 Respiratory rate 20 /min Pilar Garcia MD Work Phone: [employer] Work Phone: 09-19-2019 17:05-0500 SaO2% (BldA) [Mass fraction] 99 % Pilar Garcia MD Work Phone: [employer] Work Phone: 09-19-2019 17:05-0500 Systolic blood pressure 136 mm[Hg] Pilar Garcia MD Work Phone: [employer] Work Phone: 09-19-2019 15:21-0500 Body mass index (BMI) [Ratio] 41.54 kg/m2 Pilar Garcia MD Work Phone: [employer] Work Phone: 09-19-2019 15:21-0500 Body temperature 98.01 [degF] Pilar Garcia MD Work Phone: [employer] Work Phone: 09-19-2019 15:21-0500 Body weight 109.77 kg Pilar Garcia MD Work Phone: [facility] Work Phone: 05-06-2019 07:59-0400 BMI (Body Mass Index) 38.45 kg/m2 Hollie Flood [facility], [place] 05-06-2019 07:59-0400 Body Temperature 98.49 [degF] Hollie York [facility], [place] 05-06-2019 07:59-0400 Body weight 101.61 kg Hollie York [facility] , [place] 05-06-2019 07:59-0400 BP Diastolic 66 mm[Hg] [facility] [place] 05-06-2019 07:59-0400 BP Systolic 126 mm[Hg] Hollie [facility] , [place] 05-06-2019 07:59-0400 Pulse (Heart Rate) 83 /min [facility] [place] 05-06-2019 07:59-0400 Pulse Oximetry 97 % [facility] [place] 05-06-2019 07:59-0400 Respiratory Rate 20 /min [facility], [place] Encounters Encounter Date Encounter Type Care Provider Facility Start: 08-17-2023 End: 08-17-2023 ambulatory KENIA PIEDRA Not Available Start: 03-13-2023 End: 03-17-2023 Evaluation and management of inpatient MANOJ RAMOS Facility:[facility] Start: 03-12-2023 End: 03-13-2023 Emergency department patient [facility] Start: 03-07-2023 Emergency department patient visit [facility] Start: 03-07-2023 End: 03-07-2023 Emergency department patient visit Jeronimo Fofana DO Work Phone: [facility] Comment on above: Left flank pain (Monserrat almas Dx) Start: 01-03-2023 End: 01-04-[address] BLAS RICKS . Facility: Start: 11-14-2022 End: 11-14-2022 Emergency department patient visit [facility] Start: 11-14-2022 End: 11-14-2022 Emergency department patient visit Manoj Flores MD Work Phone: [facility] Comment on above: Acute pharyngitis, u nspecified etiology (Primary Dx) Start: 08-09-2022 End: 08-09-2022 Emergency department patient visit RACQUEL SIMPSON [facility] Start: 05-25-2022 End: 05-29-2022 Evaluation and management of inpatient RACQUEL SIMPSON [facility] Start: 05-25-2022 End: 05-29-2022 Evaluation and management of inpatient Tommy Cherry MD Work Phone: [facility] Comment on above: PLTCS 05/25/22 F Apg Wt 4#15 (Primary Dx) Start: 05-23-2022 End: 05-25-[address] BLAS RICKS . Facility: Start: 05-07-[address] BLAS RICKS . Facili ty:[facility] Start: 05-04-2022 End: 05-05-[address] BLAS RICKS . Facility: Start: 06-08-2021 End: 06-08-2021 Subsequent hospital visit by physician [facility] Covid19 Pat Screening Schedule [facility] Comment on above: Sinus congestion; Cough; Fever, unspecified fever cause Start: 09-30-2020 End: 09-30-2020 Subsequent hospital visit by physician Racquel Simpson [facility] Laboratory Comment on above: Suspected COVID-19 v irus infection Start: 07-30-2020 End: 07-30-2020 Subsequent hospital visit by physician Racquel Simpson [facility] Laboratory Comment on above: Suspected COVID-19 v irus infection Start: 09-19-2019 End: 09-19-2019 Emergency department patient visit Pilar Garcia MD Work Phone: [facility] Comment on above: Lower abdominal pain (Primary Dx); Complication of in second trimester Start: 05-06-2019 End: 05-06-2019 Emergency department patient visit Hollie Gonzalez Work Phone: [facility] Comment on above: Strain of lumbar reg ion, initial encounter (Primary Dx); Morning sickness; Acute pharyngitis, unspecified etiology Procedures Date Procedure Procedure Detail Performing Clinician Start: 03-15-2023 Antibody screen MANOJ SEPULVEDA Comment on above: Order Comment: Speci men Type: BLOOD SPECIMENOrdering Facility: [facility] Address: [address] [place] [phone] Performed By: #### T SPN ####CC MAIN BLOOD BANKCLIA [id number] [facility] [id number] [place] [address] Start: 03-07-2023 Comprehensive metabo lic panel Jeronimo Fofana DO Work Phone: Start: 03-07-2023 Urinalysis microscopic only Jeronimo Fofana DO Work Phone: Start: 03-07-2023 Urnls dip stick/tabl et rgnt auto w/o microscopy Jeronimo Fofana DO Work Phone: Start: 11-14-2022 Iaadiadoo streptococ cus group a Manoj Flores MD Work Phone: Start: 05-26-2022 Protein total xcpt refractometry urine Latoya Cherry DO Work Phone: Start: 05-26-2022 Comprehensive metabo lic panel Latoya Cherry DO Work Phone: Start: 05-25-2022 Comprehensive metabo lic panel Lynn N Nelson DO Work Phone: Start: 05-25-2022 T. PALLIDUM AB Tammy Cherry MD Work Phone: Start: 05-25-2022 Ct head/brain w/o co ntrast material Lynn N Nelson DO Work Phone: Start: 05-25-2022 Antibody [...] Author Start: 06-01-2023 Depression Screen Depression Screen [facility] [employer] Start: 03-22-2023 Influenza [facility] Start: 03-08-2023 End: 03-07-2024 US RETROPERITONEAL COMPLETE US RETROPERITONEAL COMPLETE Imaging STAT Left flank pain Expected: 03/08/2023, Expires: 03/07/2024 [employer] Comment on above: Expected: 03/08/2023 , Expires: 03/07/2024 Start: 2022 Screening for malign ant neoplasm of cervix [facility] [employer] Start: 06-01-2022 End: 06-01-2022 ambulatory 06/01/2022 Visit Obstetrics and Gynecology Kesha Pritchett, DO [address] [place] [address] [facility] [employer] [place] Start: 03-22-2022 Influenza vaccination Flu vaccine (# 1) [facility] [employer] [facility] Start: 04-22-2021 Influenza vaccination Flu vaccine (# 1) [facility] Recommend Phone: Start: 04-22-2020 Influenza vaccination Flu vaccine (# 1) [place], [place] Start: 04-22-2019 Influenza vaccination Flu vaccine (# 1) [place] Start: 2013 Cervical cancer screen Cervical canc er screen [place] Start: 2013 Screening for malign ant neoplasm of cervix [facility] Start: 2011 DTaP/Tdap/Td vaccine (1 - Tdap) DTaP/Tdap/Td vaccine (1 - Tdap) [facility] Start: 2010 Hepatitis C screening Hepatitis C sc reen [facility] Start: 2007 HIV screen HIV screen [place], [place] Start: 2007 HIV screening HIV screen [facility] Start: 2007 HPV vaccine (1 - Fem angelica 3-dose series) HPV vaccine (1 - Female 3-dose series) [place] Start: 2005 Varicella Vaccine (1 of 2 - 13+ 2-dose series) Varicella Vaccine (1 of 2 - 13+ 2-dose series) [place] Start: 2004 COVID-19 Vaccine (1) COVID-19 Vaccin e (1) [facility] Recommend Phone: Start: 2004 Depression Screen Depression Screen [facility] Start: 2003 DTaP/Tdap/Td vaccine (1 - Tdap) DTaP/Tdap/Td vaccine (1 - Tdap) [facility] [employer] Phone: Start: 2003 DTaP/Tdap/Td vaccine (5 - Tdap) DTaP/Tdap/Td vaccine (5 - Tdap) [facility] Start: 1993 Varicella vaccine (1 of 2 - 2-dose childhood series) Varicella vaccine (1 of 2 - 2-dose childhood series) [facility] Start: 02-06-1993 COVID-19 Vaccine (#1) COVID-19 Vacci ne (#1) [facility] [employer] [facility] [employer] Start: 1992 Hepatitis C screening Hepatitis C sc reen [place] End: 09-30-2020 COVID-19 COVID-19 Lab Routine Suspected COVID-19 virus infection 1 Occurrences starting 09/30/2020 until 09/30/2020 [place] Comment on above: 1 Occurrences starti ng 09/30/2020 until 09/30/2020 COVID-19 [place], [place] End: 06-08-2021 COVID-19 COVID-19 Lab Routine Sinus congestion Cough Fever, unspecified fever cause 1 Occurrences starting 06/08/2021 until 06/08/2021 [facility] Recommend Phone: Comment on above: 1 Occurrences starti ng 06/08/2021 until 06/08/2021 End: 07-30-2020 Covid-19 Ambulatory Covid-19 Ambulatory Lab Routine Suspected Covid-19 Virus Infection 1 Occurrences starting 07/30/2020 until 07/30/2020 [place] Comment on above: 1 Occurrences starti ng 07/30/2020 until 07/30/2020 Covid-19 Ambulatory Covid-19 Amb ulatory Lab Routine Suspected COVID-19 virus infection 07/30/2020 10:34 AM EST [place] End: 05-06-2019 CRP [Mass/Vol] C-reactive protein Lab Routine One Time for 1 Occurrences starting 05/06/2019 until 05/06/2019 [place] Comment on above: One Time for 1 Occur rences starting 05/06/2019 until 05/06/2019 CRP [Mass/Vol] C-reactive prote in Lab STAT 05/06/2019 8:32 AM EDT [place] End: 05-29-2022 DRUG SCREEN MULTI URINE DRUG SCREEN MULTI URINE Lab Add-On One Time for 1 Occurrences starting 05/29/2022 until 05/29/2022 [facility] [employer] Work Phone: Comment on above: One Time for 1 Occur rences starting 05/29/2022 until 05/29/2022 Oxygen therapy [[facility] Data Set] Initiate Oxygen Therapy Protocol Respiratory Care Routine Daily until discontinued starting 05/25/2022 [employer] Work Phone: Comment on above: Daily until disconti nued starting 05/25/2022 Spirometry panel Incentive kavitha metry Respiratory Care Routine Every 2hr while awake until discontinued starting 05/25/2022 [employer] Phone: Comment on above: Every 2hr while awak e until discontinued starting 05/25/2022 End: 03-07-2023 US RETROPERITONEAL COMPLETE US RETROPERITONEAL COMPLETE Imaging Routine Once for 1 Occurrences starting 03/07/2023 until 03/07/2023 [employer] Work Phone: Comment on above: Once for 1 Occurrenc es starting 03/07/2023 until 03/07/2023 Immunizations Immunization Date Immunization Notes Care Provider Abner kimbrough 06-01-2022 influenza, injectabl e, quadrivalent, preservative free Manoj Flores MD Work Phone: [employer] 05-29-2022 measles, mumps and rubella virus vaccine Tommy Cherry MD Work Phone: [employer] 05-25-2022 diphtheria, tetanus toxoids and acellular pertussis vaccine, unspecified formulation Tommy Cherry MD Work Phone: [employer] Work Phone: 07-21-2018 influenza, injectabl e, quadrivalent, preservative free Manoj Flores MD Work Phone: [employer] Work Phone: 05-18-2017 influenza, injectabl e, quadrivalent, preservative free Manoj Flores MD Work Phone: [employer] Work Phone: 05-25-2016 influenza virus vaccine, unspecified formulation Manoj Flores MD Work Phone: [employer] Work Phone: 05-27-2015 influenza virus vaccine, whole virus Manoj Flores MD Work Phone: [employer] Work Phone: 05-22-2015 influenza virus vaccine, unspecified formulation Manoj Flores MD [facility]: [facility] Work Phone: 06-30-2014 influenza virus vaccine, unspecified formulation Manoj Flores MD Work Phone: [facility] [employer] Work Phone: 01-18-2014 tuberculin skin test ; purified protein derivative solution, intradermal Hollie York [facility] 06-15-2013 influenza virus vaccine, whole virus Manoj Flores MD Work Phone: [facility] Work Phone: 05-19-2011 influenza virus vaccine, unspecified formulation Manoj Flores MD Work Phone: [facility] [employer] Work Phone: 04-14-2005 measles, mumps and rubella virus vaccine Manoj Flores MD Work Phone: [facility] Work Phone: 11-25-1993 diphtheria, tetanus toxoids and acellular pertussis vaccine, unspecified formulation Manoj Flores MD Work Phone: [facility] Work Phone: 11-25-1993 haemophilus influenz ae type b vaccine, conjugate unspecified formulation Manoj Flores MD Work Phone: [facility] Work Phone: 11-25-1993 hepatitis B vaccine, pediatric or pediatric/adolescent dosage Manoj Flores MD Work Phone: [facility] [employer] Work Phone: 11-25-1993 measles, mumps and rubella virus vaccine Manoj Flores MD Work Phone: [facility] [employer] Work Phone: 11-25-1993 trivalent poliovirus vaccine, live, oral Manoj Flores MD Work Phone: [employer] Work Phone: 03-12-1993 diphtheria, tetanus toxoids and pertussis vaccine Manoj Flores MD Work Phone: [employer] Work Phone: 03-12-1993 haemophilus influenz ae type b vaccine, conjugate unspecified formulation Manoj Flores MD Work Phone: [employer] Work Phone: 03-12-1993 hepatitis B vaccine, pediatric or pediatric/adolescent dosage Manoj Flores MD Work Phone: [employer] Work Phone: 1992 diphtheria, tetanus toxoids and pertussis vaccine Manoj Flores MD Work Phone: [employer] Work Phone: 1992 haemophilus influenz ae type b vaccine, conjugate unspecified formulation Manoj Flores MD Work Phone: [employer] Work Phone: 1992 hepatitis B vaccine, pediatric or pediatric/adolescent dosage Manoj Flores MD Work Phone: [employer] Work Phone: 1992 trivalent poliovirus vaccine, live, oral Manoj Flores MD Work Phone: [employer] Work Phone: 1992 diphtheria, tetanus toxoids and pertussis vaccine Manoj Flores MD Work Phone: [employer] Work Phone: 1992 haemophilus influenz ae type b vaccine, conjugate unspecified formulation Manoj Flores MD Work Phone: [employer] Work Phone: 1992 trivalent poliovirus vaccine, live, oral Manoj Flores MD Work Phone: [employer] Work Phone: Payers Date Payer Category Payer Unknown JULIA DELEON [facility] MEDICAID xxxxxxxxxxx 2015-Present [phone] CLAIMS DEPARTMENT [address] [place] [address] xxxxxxxxxxx [id number] 1992 Unknown [id number] 1992 Unknown [id number] 1992 Unknown [id number] 1992 Unknown [id number] 1992 Unknown [id number] 1992 Unknown [id number] 1992 Unknown [id number] 1992 Unknown [id number] 1992 Unknown [id number] 1992 Unknown [id number] 1959 Self-pay 1959 Unknown [id number] 1959 Unknown [id number] Social History Date Type Detail Facility Start: 07-30-2020 End: 03-07-2023 Tobacco smoking status MNIS Former smoker [facility] End: 02-15-2022 History of tobacco use Cigarette Smoker [place] Start: 07-30-2020 End: 03-07-2023 Cigarettes smoked current (pack per day) - Reported [place] Start: 07-30-2020 End: 03-07-2023 Tobacco use and exposure Never used [facility] [place] Start: 07-30-2020 End: 03-07-2023 Alcohol intake Current non-drinker of alcohol (finding) [employer] Phone: Start: 07-14-2015 Alcohol Comment less than once a wee k [place], [place] Start: 1992 Sex Assigned At Not on file M [place], [place] Start: 05-06-2019 [facility] [place] End: 02-15-2022 History of tobacco use Current smoker [employer] Phone: Start: 11-04-2022 End: 11-14-2022 Exposure to SARS-CoV-2 (event) Not sure [employer] Phone: Start: 03-07-2023 History SDOH Alcohol Frequency 1 [employer] Start: 03-07-2023 History SDOH Alcohol Std Drinks 0 [employer] Clinical Notes 09-19-2019 to 03-17-2023 Discharge InstructionsAttachmentsTralarry Cherry MD - 05/29/2022 2:59 AM Ben Armas MD - 05/28/2022 2:43 AM Ash Rubio DO - 05/27/2022 12:19 AM Annette Instructions Note Date & Type Note Facility 03-17-2023 Note HNO ID: [id number] Author: Domonique Kaplan Service: ? 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 Domonique Kaplan PAGER: [phone] March 17, 2023 2:17 PM [facility] 03-17-2023 Note HNO ID: [id number] Author: Kristin Wang RPh Service: Pharmacy Author [...] Wang RPh March 17, 2023 12:41 PM [id number] Medication List START taking these medications amoxicillin-clavulanic [...] Your Medications These medications were sent to [facility] [address] [place] [address] Hours: Tuesday-Tuesday 7am-8pm, Tuesday, Tuesday and Holidays 9am-5pm amoxicillin-clavulanic acid 875-125 mg per tablet multivitamin 28 mg iron- 800 mcg tab(s) [facility] 03-16-2023 Note HNO ID: [id number] Author: Manoj Ramos MD Service: General Internal Medicine Author Type: Physician Type: Progress Notes Filed: 03/16/2023 5:27 PM Note Text: Internal Medicine [place] progress note After 5 PM on weekdays [...] Plan: - Consider (more content not included)... [facility] 03-15-2023 Note HNO ID: [id number] Author: Domonique Kaplan Service: ? 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 Pager #: [phone] [facility] 03-15-2023 Note HNO ID: [id number] Author: Manoj Ramos MD Service: General Internal Medicine Author Type: Physician Type: Progress Notes Filed: 03/15/2023 2:05 PM Note Text: Internal Medicine [place] progress note After 5 PM on weekdays [...] infection first. Ferritin (more content not included)... [facility] 03-14-2023 Note HNO ID: [id number] Author: Robyn Borrego RN Service: ? Author Type: Registered Nurse Type: Nursing Progress Note Filed: 03/14/2023 6:24 PM Note Text: 1814 Patient staes she is having spotting. Jeremiah Cantu notified and states to monitor. 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 The below information represents the best possible medication history: Yes Medication history completed by: Pharmacist: Kristin Wang RPh Source of history: Patient: Reliability of source: Appears reliable, clearly identified: Medication name, Medication dose, Medication route, and Medication frequency and Pharmacy records: [facility] Medication nonadherence identified: No barriers noted Reconciliation completed: Yes Completed by: Danny BellD Discussed with LIP, plans to add vitamin based on updated medication history Patient interested in Bedside Delivery Services or using OP Pharmacy at discharge? Unable to assess Preferred outpatient pharmacy: [facility] [address] [place] [id number] [phone] Allergies: Ciprofloxacin Vomiting Codeine Vomiting Comment:Convulsions per [...] Facility-Administered Medications: None Kristin Wang RPh 03/14/2023 [id number] [facility] 03-14-2023 Note HNO ID: [id number] Author: Manoj Ramos MD Service: General Internal Medicine Author Type: Physician Type: Progress Notes Filed: 03/14/2023 3:07 PM Note Text: Internal Medicine Pepe progress [...] 3 PM on weekends page Night Team [facility] STAFF PHYSICIAN NOTE OF PERSONAL INVOLVEMENT IN CARE I have reviewed the progress note antoinette (more content not included)... [facility] 03-13-2023 Note HNO ID: [id number] Author: Sabrina Castro MD Service: Gynecology Author Type: Resident Type: Plan of Care Filed: 03/13/2023 5:19 PM Note Text: Attestation signed by Pinky Rodriguez DO at 03/13/2023 6:04 PM Routine OB guidelines/recommendations as documented. 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 Advised team to begin with renal bladder ultrasound. Advised team to avoid abdominal CT unless absolutely necessary. General guidelines are listed below. Sabrina Castro MD [employer] WORKER Resident, PGY-3 General guidelines In general, [...] for use in acute pain. Avoid NSAIDs. retirement narcotic exposure can lead to maternal and [...] - Could use if needed Avoid Tramadolol/Barbuturites. [facility] 03-13-2023 Note HNO ID: [id number] Author: Maira Egan RT(R) Service: Radiology Author [...] RT Angel(R) March 13, 2023 1:06 PM [facility] 03-07-2023 Hospital Discharge instructions Jeronimo Fofana DO - 03/07/2023 9:43 AM EDT Continue antibiotic as presccribed. Continue Tylenol as needed for pain. Follow-up with your OB for re evaluation. The following attachments cannot be sent through Care Everywhere.Flank Pain (Barbadian)documented in this encounter [facility] 05-29-2022 History of Present illness Narrative [...] - EBL 1000 - S/p TXA and [place] cytotec - Bleeding stable, vitals stable - [...] patient Attending Physician: Dr. Dilip Curiel, DO [facility] Resident 05/29/2022, 2:59 AM Attending Physician Statement [...] PLTCS - Doing well, VSS - Female in NICU - Encourage ambulation [...] with patient Attending Physician: Dr. Pawel Cherry, [facility] Resident 05/28/2022, 2:43 AM Date: 05/28/2022 Time: [...] POD#4. POST OPERATIVE DAY # 2 Qian Clemenst is a 31 y.o. female This patient [...] PLTCS - Doing well, VSS - Female in NICU - Encourage ambulation [...] with patient Attending Physician: Dr. Joanne Cherry, DO [facility] Resident 05/27/2022, 12:19 AM Date: 05/27/2022 Time: [...] 03:01 PM BMP: Recent Labs 05/25/22 1501 [id number] NA 134* 134* 132* K 3.8 4.2 [...] Will continue to monitor Abdi Gómez MD [facility] Resident 05/26/2022, 2:52 PM Resident Interval Magnesium [...] Next magnote @ 1430 Abdi Gómez MD [facility] Resident 05/26/2022, 10:26 AM POST OPERATIVE DAY [...] Eclampsia - Doing well, VSS - Female in NICU - Encourage ambulation [...] S/p TXA x1 and Cytotec 1000 mg [place] Asthma - Albuterol inhaler PRN Depression/ADHD - [...] patient Attending Physician: Dr. Celestine Crawley DO [facility] [employer] [facility] Resident 05/26/2022, 4:14 AM Resident Interval Magnesium [...] per EMS - Next mag note @ 4550 - Plan to d/c aliza at this time Savana Crawley DO [facility] Resident 05/26/2022, 4:10 AM Resident Interval Magnesium [...] Will continue to monitor Savana Crawley DO [facility] Resident 05/26/2022, 12:30 AM Resident Interval Magnesium [...] Will continue to monitor Savana Crawley DO [facility] Resident 05/25/2022, 7:25 PM [facility] [place] Shift date: 05/25/2022 Shift day: Tuesday Shift # 1 Room # 0703/0703-01 Name: Qian Clements Methodist: Place of pentecostalism: Referral: Steffi Alert Admit Date & Time: 05/25/2022 2:31 PM Assessment: Qian Clements is a 31 y.o. female, 32 weeks , who was brought from a hospital in [place]. Per EMS, patient had very high BP and had a seizure on the way here. The OB explained that they would have to deliver the baby. Upon entering the room telegraphic typewriter installer observes patient was tearful. She said she had no needs from test deck supervisor at that time. Mother and family members arrived shortly and appeared concerned. Supervisor Sulfuric Acid Plant was unable to assess them after walking them to the pt's room. Intervention: Engine House Helper introduced self and title as test deck supervisor. Supervisor Sulfuric Acid Plant provided a supportive presence and words of comfort. Outcome: Pt appeared comforted by test deck supervisor's presence. Plan: Chaplains will remain available to offer spiritual and emotional support as needed. . Spiritual Care Department [facility] [phone] 05/25/22 1504 Encounter Summary Service Provided For: Patient;Family Referral/Consult From: Multi-disciplinary team Support System Parent;Family members Last Encounter 05/25/22 Complexity of Encounter Moderate Begin Time 1430 End Time 1450 Total Time Calculated 20 min Crisis Type (Mcalester Alert) Assessment/Intervention/Outcome Assessment Coping;Tearful Intervention Active listening;Explored/Affirmed feelings, thoughts, concerns Outcome Expressed feelings, needs, and concerns documented in this encounter [facility] Work Phone: 05-25-2022 Hospital Discharge instructions Erin [...] your doctor if you can take an cpzo-msp-woapqtp medicine. If you think your pain medicine [...] can you learn more? Go to [email or web address] and sign in to your MyChart account. Enter M806 in the Search Health Information box to learn more about Section: What to Expect at Home. If you do not have an account, please click on the Sign Up Now link. Current as of: October 14, 2021 Content Version: 13.4 [employer]. Care instructions adapted under license by [employer]. If you have questions about a medical condition or this instruction, always ask your healthcare professional. [employer] disclaims any warranty or liability for your [...] Call the Suicide and Crisis Lifeline at 674. Call 0-055-416-WQJF (). Text HOME to 478529 to access the Crisis Text Line. Consider [...] When should you call for help? Call 700 if: You feel you cannot stop from [...] Where can you learn more? Go to [email or web address] and sign in to your [employer] account. Enter Y765 in the Search Health Information box to learn more about Depression After Childbirth: Care Instructions. If you do not have an account, please click on the Sign Up Now link. Current as of: September 30, 2021 Content Version: 13.4 [employer]. Care instructions adapted under license by [employer]. If you have questions about a medical condition or this instruction, always ask your healthcare professional. [employer] disclaims any warranty or liability for your [...] most return to normal levels over the chcf. Take and record your blood pressure at [...] you have had preeclampsia, you have a dwggjn-ofdo-jfynuax risk of heart disease, stroke, and kidney [...] Where can you learn more? Go to [email or web address] and sign in to your [employer] account. Enter Q718 in the Search Health Information box to learn more about Learning About Preeclampsia After Childbirth. If you do not have an account, please click on the Sign Up Now link. Current as of: October 14, 2021 Content Version: 13.4 [employer]. Care instructions adapted under license by [employer]. If you have questions about a medical condition or this instruction, always ask your healthcare professional. [employer] disclaims any warranty or liability for your use of this information. documented in this encounter [employer] Phone: 05-25-2022 Evaluation note Diagnosis PLTCS 05/25/22 F Apg Wt 4#15; PLTCS 05/25/22 F Apg 8/9 Wt 4#15- Primary delivery, without mention of indication, delivered, with or without mention of antepartum condition Eclampsia (G6) Other convulsions state Routine follow-up Postoperative state Other postprocedural status documented in this encounter [employer] Phone: [phone] Hospital Discharge instructions* Instructions* Pilar Garcia MD - 09/19/2019 Go immediately from here to the [facility] OB department to be evaluated by the OB nurse. Donot stop anywhere on the way. Do not eat or drink before getting there. * Attachments The following attachments cannot be sent through Care Everywhere. * : Abdominal Pain (Barbadian) [facility] [employer] Phone: evaluation note* Diagnosis Sinus congestion Other diseases of nasal cavity and sinuses Cough Fever, unspecified fever cause [facility]* Diagnosis Lower abdominal pain- Primary Abdominal pain, other specified site Complication of in second trimester [facility]* Diagnosis Acute pharyngitis, unspecified etiology- Primary documented in this encounter [facility] [employer] Phone: evaluation note* Diagnosis Left flank pain- Primary Abdominal pain, unspecified site documented in this encounter [facility] [employer] [facility] Discharge instructions* Attachments The following attachments cannot be sent through Care Everywhere. * Sore Throat (Barbadian) [facility] Phone: Assessments Diagnosis Suspected COVID-19 virus infection Diagnosis Strain of lumbar region, initial encounter- Primary Morning sickness Mild hyperemesis gravidarum, unspecified as to episode of care Acute pharyngitis, unspecified etiology Advance Directives No Advanced Directives Records FoundDocuments on File Type Date Recorded Patient Director Part Expl anation ACP-Advance Directive ACP-Power of Librarian Helper Latest Code Status on File Code Status Date Activated Date Inactivated Comments Full Code 08/15/2017 4:59 PM 08/15/2017 9:37 PM Full Code 07/14/2015 12:36 PM 07/14/2015 3:17 PM Full Code 07/14/2015 9:31 AM 07/14/2015 12:36 PM Documents on File Type Date Recorded Patient Director Part Expl anation Advance Directives and Living Will Power of Librarian Helper Latest Code Status on File Code Status [...] sent through Care Everywhere. * Sore Throat (Barbadian) * : Morning Sickness (Barbadian) * Back: Strain (Barbadian) documented in this encounter Summary Purpose Family History No Family History Records FoundNo Family History Records FoundNo Family History Records FoundNo Family History Records FoundNo Family History Records FoundNo Family History Records Found Reason for Referral Specialty Diagnoses / Procedures Referred By Contac t Referred To Contact Radiology Diagnoses Left flank pain Procedures US RETROPERITONEAL COMPLETE Jeronimo Fofana, DO [address] [place] [address] Referral ID Status Reason Start Date Expiration Date Visits Re quested Visits Authorized [id number] Open 03/08/2023 03/07/2024 1 1 Additional Source [...] To Contact Diagnoses Eclampsia Tammy Cherry MD [address] [place] [id number] [facility] [address] [place] [address] Referral ID Status Reason Start Date Expiration Date Visits Re quested Visits Authorized [id number] 1 1 Reason Comments Pharyngitis C/o sore [...] Kaba RN)1416 (Given - Provider: Lory Kaba RN)214 (Given - Provider: Mónica Kong, CATHI - Comment: patient off unit) 0247 (Given - Provider: Mónica Kong, CATHI)0836 (Given - Provider: Maritza Martinez RN)2124 (Given - Provider: Evelia Yu RN - Comment: Pt was in NICU)2129 (Not Given - Provider: Evelia Yu RN - Reason: Contraindicated - Comment: Given at 2124) 0250 (Given - Provider: Evelia Yu RN)0853 (Given - Provider: Robyn Interiano RN)1530 (Due - Provider: Ross Ashley [facility])2130 (Due - Provider: Ross Ashley RPH) cephALEXin (KEFLEX) capsule 500 mg (COMPLETED) 500 [...] RN) 0836 (Given - Provider: Maritza Martinez RN)212 (Given - Provider: Evelia Yu RN) 0853 (Given - Provider: Robyn Interiano RN)2100 (Due) enoxaparin (LOVENOX) injection 40 mg 40 mg, SubCUTAneous, DAILY, First dose on Tue05/26/22 at 0900, Until Discontinued, Indication of Use: Prophylaxis-DVT/PE 08 (Given - Provider: Lory Kaba RN) 08 [...] Kaba RN) 0246 (Given - Provider: Mónica Kong, CATHI)1302 (Given - Provider: Maritza Martinez RN)2124 (Given - Provider: Evelia Yu RN - Comment: Pt was in NICU) 0647 (Given - Provider: Evelia Yu RN)1030 (Due - Provider: Ross Ashley Alina)1830 (Due - Provider: Ross Ashley RPH) metroNIDAZOLE (FLAGYL) tablet 500 mg (COMPLETED) 500 mg, Oral, EVERY 8 HOURS SCHEDULED (3 times per day), 6 doses, First dose on Tue05/25/22 at 1630, Last dose on Tue05/27/22 at 1400, Antimicrobial Indications: Surgical Prophylaxis 0624 (Given - Provider: Rayne Chad, RN)1548 (Given - Provider: Lory Kaba RN) NIFEdipine (PROCARDIA XL) extended release tablet [...] 0900 (Due)1950 (Not Given - Provider: Evelia Yu, CATHI - Reason: Loss of IV access) 0900 (Due)2100 (Due) Hzrerle-Ahqvzy-Gsdru Pertussis (BOOSTRIX) injection 0.5 mL 0.5 mL, [...] Sleep, Anxiety 2141 (Given - Provider: Mónica Kong, CATHI) diphenhydrAMINE (BENADRYL) tablet 25 mg 25 mg, Oral, EVERY 6 HOURS PRN, Starting on Tue05/25/22 at 2117, Until Discontinued, Itching 2127 (Given - Provider: [...] Lory Kaba RN)1416 (Given - Provider: Lory Kaba, CATHI)1829 (Given - Provider: Lory Kaba RN)2259 (Given - Provider: Mónica Kong RN) 0246 (Given - Provider: Mónica Kong, CATHI)0836 (Given - Provider: Maritza Martinez RN)1834 (Given - Provider: Maritza Martinez RN)2232 (Given - Provider: Evelia Yu, CATHI) 0250 (Given - Provider: Evelia Yu RN)0852 (Given - Provider: Robyn Interiano, CATHI)1256 (Given - Provider: Robyn Interiano RN) oxyCODONE [...] Yu RN)0852 (See Alternative - Provider: Robyn Interiano RN)1256 (See Alternative - Provider: Robyn Inetriano RN) oxytocin (PITOCIN) 10 unit bolus from [...] Care Teams (unrecognized sec tion and content) Math Coach Relationship Specialty Start Date End Date Racquel Simpson MD [address] [place] [address] PCP - General 04/22/16 Math Coach Relationship Specialty Start Date End Date Racquel Simpson MD [address] [place] [address] PCP - General 04/22/16 Math Coach Relationship Specialty Start Date End Date Racquel Simpson MD [address] [place] [address] PCP - General 04/22/16 INFORMATION SOURCE (unrecogn ized section and content) DATE CREATED AUTHOR 06/02/2022 [facility] DATE CREATED AUTHOR AUTHOR'S ORGANIZ ATION 01/04/2023 Li arrieta DATE CREATED AUTHOR AUTHOR'S ORGANIZ ATION 03/13/2023 Aleena clayton DATE CREATED AUTHOR AUTHOR'S ORGANIZ ATION 03/18/2023 [facility] DATE CREATED AUTHOR AUTHOR'S ORGANIZ ATION 05/04/2023 [facility] DATE CREATED AUTHOR AUTHOR'S EAMON MEZA 08/19/2023 [facility] FOR RECORDS PERTAINING TO PATIENTS [...] BE BASED ON THE PRIMARY CLINICAL RECORDS. [facility] [employer] [facility]. provides no warranty or guarantee of the accuracy or completeness of information in this document.
--- NOTE | 2023-09-08 14:24 | ED.GENADUL1 ---
HPI - General Adult General Chief complaint: Headache Stated complaint: HIGH BLOOD PRESSURE Time Seen by Provider: 09/08/23 13:38 Source: patient Mode of arrival: walk-in Limitations: no limitations History of Present Illness HPI narrative: Patient just had a at [facility] on 08/31/23 due to eclampsia and high risk - she apparently had high BP and needed to be transferred from [facility] to [facility] on 08/29/23. She had a teledoc appointment today with her OB at [facility] and she told them that her BP has been elevated. She noted BP over 180 systolic and 100 diastolic at home. They told her to come to [facility] for admission. She told us that she did not have a ride to [place] so instead she came from [place] to the [facility] to be evaluated. She took 400mg Labetalol orally at home before getting a ride to [facility]. She has no complaints at this time. She told me that the baby is still in the NICU at [facility] - born 8 weeks early. Related Data Allergies Allergy/AdvReac Type Severity Reaction Status Date / Time codeine AdvReac Severe vomiting Verified 09/08/23 13:59 promethazine [From Phenergan] AdvReac Severe vomiting Verified 09/08/23 13:59 ciprofloxacin [From Cipro] AdvReac Intermediate vomiting Verified 09/08/23 13:59 [facility] Social History Smoking status: Never smoker Exam Narrative Exam Narrative: Nurses notes and vital signs reviewed and patient is not hypoxic. afebrile General: Well-appearing and in no apparent distress. Skin: Warm, dry, no pallor noted. Head: Normocephalic, atraumatic. Neck: Supple, non-tender. Eye: Pupils are equal, round and EOMI. No scleral icterus. Ears, Nose, Mouth, and Throat: Oral mucosa is moist Cardiovascular: Regular Rate and Rhythm without murmur, gallop or rub. Respiratory: No accessory muscle use or respiratory distress. Lungs are clear to auscultation, no wheezing, rales or rhonchi Back: No CVA tenderness Musculoskeletal: normal ROM, no calf or popliteal tenderness, no lower extremity edema/swelling Neurological: A&O x4. No cranial nerve dysfunction observed. No truncal ataxia. Moves all extremities. Sensation intact. Psychiatric: Cooperative and interactive. Normal mood and affect. Constitutional Vital Signs, click to edit/add: Last Vital Signs Temp 98.2 F 09/08/23 13:59 Pulse 107 H 09/08/23 15:10 Resp 26 H 09/08/23 15:10 BP 150/87 H 09/08/23 15:01 Pulse Ox 97 09/08/23 13:59 O2 Del Method Room Air 09/08/23 13:59 Course Vital Signs Vital signs: Vital Signs Temperature 98.2 F 09/08/23 13:59 Pulse Rate 110 H 09/08/23 13:59 Respiratory Rate 16 09/08/23 13:59 Blood Pressure 165/104 H 09/08/23 13:59 Pulse Oximetry 97 09/08/23 13:59 Oxygen Delivery Method Room Air 09/08/23 13:59 Temperature 98.2 F 09/08/23 13:59 Pulse Rate 107 H 09/08/23 15:10 Respiratory Rate 26 H 09/08/23 15:10 Blood Pressure 150/87 H 09/08/23 15:01 Pulse Oximetry 97 09/08/23 13:59 Oxygen Delivery Method Room Air 09/08/23 13:59 Medical Decision Making MDM Narrative Medical decision making narrative: Patient was placed on senior receptionist and peripheral IV obtained. Blood drawn and sent for evaluation. Her BP on arrival was 165/104 - she was ordered to receive IV Vasotec and IV Labetalol. I called Dr Ricks, our OB family protection specialist. He had taken care of her 08/29/23 before her transfer to [facility]. He asked that the patient be transferred back to [facility] for admission and further care. I spoke with OB family protection specialist at [facility] and they accepted the patient's transfer under Dr Gomez's service and will assess her on arrival to their facility. Call placed to secure transportation. BP improved to 138/86 after ED treatment. At the time that [place] ambulance arrived to orange picking supervisor the patient for transfer, the BP was 150/87. CBC and BMP unremarkable. Patient stable for transfer. Lab Data Lab results reviewed: Yes I reviewed the patient's lab results Labs: Lab Results 09/08/23 Range/Units 14:26 WBC 13.1 H (4.0-11.0) 10^3/uL RBC 3.28 L (4.20-5.40) 10^6/uL Hgb 8.7 L (12.0-16.0) g/dL Hct 28.4 L (36.0-48.0) % MCV 86.6 (81.0-99.0) fL MCH 26.5 L (26.7-34.0) pg MCHC 30.6 (29.9-35.2) g/dL RDW 15.1 H (11.0-15.0) % Plt Count 489 H (150-450) 10^3/uL MPV 8.4 L (9.5-13.5) fL Neut % (Auto) 69.8 (43.0-75.0) % Lymph % (Auto) 22.1 (20.5-60.0) % Weber % (Auto) 5.3 (1.7-12.0) % Eos % (Auto) 1.0 (0.9-7.0) % Baso % (Auto) 0.4 (0.2-2.0) % Neut # (Auto) 9.2 H (1.4-6.5) 10^3/uL Lymph # (Auto) 2.9 (1.2-3.8) 10^3/uL Weber # (Auto) 0.7 (0.3-0.8) 10^3/uL Eos # (Auto) 0.1 (0.0-0.7) 10^3/uL Baso # (Auto) 0.1 (0.0-0.1) 10^3/uL Abs Immat Gran (auto) 0.19 H (0.00-0.03) 10^3/uL Imm/Tot Granulo (auto) 1.4 H (0.0-0.5) % Sodium 143 (136-145) mmol/L Potassium 4.1 (3.5-5.1) mmol/L Chloride 106 (98-107) mmol/L Carbon Dioxide 27.8 (21.0-32.0) mmol/L Anion Gap 13.3 BUN 15.0 (7.0-18.0) mg/dL Creatinine 1.04 H (0.55-1.02) mg/dL Est GFR ( Amer) >60 (>=60) Est GFR (Non-Af Amer) >60 (>=60) BUN/Creatinine Ratio 14.4 Glucose 95 (74-106) mg/dL Calcium 8.7 (8.5-10.1) mg/dL Discharge Plan Discharge Chief Complaint: Headache Clinical Impression: hypertension, Hypertensive urgency Patient Disposition: [facility] Time of Disposition Decision: 14:29 Discharge Location: [facility]
[2023-09-08 14:36] LABS: Basophils Absolute Auto 0.1 10^3/uL (0.0-0.1); Basophils Percent Auto 0.4 % (0.2-2.0); Eosinophils Absolute Auto 0.1 10^3/uL (0.0-0.7); Hematocrit 28.4 % (36.0-48.0); Hemoglobin 8.7 g/dL (12.0-16.0); Immature Granulocytes Abs Auto 0.19 10^3/uL (0.00-0.03); Immature Granulocytes Pct Auto 1.4 % (0.0-0.5); Lymphocytes Absolute Auto 2.9 10^3/uL (1.2-3.8); Lymphocytes Percent Auto 22.1 % (20.5-60.0); Mean Corpuscular HGB Conc 30.6 g/dL (29.9-35.2); Mean Corpuscular Hemoglobin 26.5 pg (26.7-34.0); Mean Corpuscular Volume 86.6 fL (81.0-99.0); Mean Platelet Volume 8.4 fL (9.5-13.5); Monocytes Absolute Auto 0.7 10^3/uL (0.3-0.8); Monocytes Percent Auto 5.3 % (1.7-12.0); Neutrophils Absolute Auto 9.2 10^3/uL (1.4-6.5); Neutrophils Percent Auto 69.8 % (43.0-75.0); Platelet Count 489 10^3/uL (150-450); Red Blood Count 3.28 10^6/uL (4.20-5.40); Red Cell Distribution Width 15.1 % (11.0-15.0); White Blood Count 13.1 10^3/uL (4.0-11.0)
[2023-09-08] MEDS: 0.9 % SODIUM CHLORIDE 1,000 ML 1000 ML IV (14:41)
[2023-09-08] MEDS: ENALAPRILAT DIHYDRATE 1.25 MG/ML VIAL IV (14:41)
[2023-09-08] MEDS: LABETALOL HCL 20 MG/4 ML SYRINGE IVP (14:41)
[2023-09-08 14:46] LABS: Anion Gap 13.3; BUN Creatinine Ratio 14.4; Calcium 8.7 mg/dL (8.5-10.1); Carbon Dioxide 27.8 mmol/L (21.0-32.0); Chloride 106 mmol/L (98-107); Estimated GFR (African America >60 (>=60); Estimated GFR (Non-African Ame >60 (>=60); Glucose 95 mg/dL (74-106); Potassium 4.1 mmol/L (3.5-5.1); Sodium 143 mmol/L (136-145)
== END 2023-09-08 15:16 | disposition short-term general hospital (02) ==
PROVIDERS: Emergency Provider Emergency Medicine; PCP Family Medicine
DX: O13.5 Gestational [pregnancy-induced] hypertension without significant proteinuria, complicating the puerperium (principal); I16.0 Hypertensive urgency
CPT/HCPCS: 36415; 80048; 85025; 96374; 96375; 99285; J1290

== ENCOUNTER 2024-06-13 12:07 | Outpatient (OUT) | payer OTHER, SELFPAY ==
--- OUTSIDE RECORDS SUMMARY | 2024-06-13 12:15 | XMS_ITS | CCD ---
Author Organization [facility] Care Team Providers Care Strip Stamp Straightener Name Role Phone Racquel Simpson Primary Care Provider RACQUEL SIMPSON Primary Care Unavailable TAMMY CHERRY Admitting Unavailable TAMMY CHERRY Attending Unavailable Racquel Simpson MD Primary Care Provider [phone] MAURISIO ., DR ODONNELL Primary Care Unavailable KARASIK ., DR KRAMER Consulting Unavailabl e MAURISIO ., DR ODONNELL Attending Unavailable MAURISIO ., DR ODONNELL Admitting Unavailable UNIVERSAL, DR AARON Owusu Consulting Unavailable MAURISIO ., [...] MAURISIO ., DR ODONNELL Primary Care Unavailable ZIEBER, DR PILAR Glass Consulting Unavailable REQUEST, DR CINDY LISTED Consulting Unavaila jake Simpson MD, Racquel Garcia Primary Care Provider [phone] Unavailable Primary Care Provider UnavailESPERANZA Rodrigues Admitting Unavailable ESPERANZA MOLINA Attending Unavailable BLAS RICKS Referring Unavailable MORE HAYDEN Consulting Unavailable ([facility] ONLY), NEURO-CONSULTING Consulting Dayanara SAPNA Brasher Consulting Unavailable EDWINA CROCKETT Attending Unavailable MIKALA MORTON MD Referring Unavailab le INOCENTEIBUZZAMANMIKALA MD Referring Unavailab le INOCENTEIBMIKALA NEWTON MD Referring Unavailab le ALADAMAT, NAMEER Referring Unavailable NAMITA, MARU Referring Unavailable NAMITA, MARU Referring Unavailable DAMIAN HERNÁNDEZ Attending Unavailable SHERLY JAMA Referring Unavailable AARON CARTAGENA Admitting Unavailable AARON CARTAGENA Attending Unavailable BIPIN KELLOGG Referring Unavailable MORE HAYDEN Consulting Unavailable ([facility] ONLY), NEURO-CONSULTING Consulting Dayanara KENIA Garner Attending Unavailable BLAS RICKS Attending Unavailable PILAR LOERA Attending Unavailable RACQUEL SIMPSON F Primary Care Unavailable MANOJ RAMOS Attending Unavailable MANOJ RAMOS Admitting Unavailable SIMPSON, RACQUEL F Referring Unavailable SIMPSON, RACQUEL F Primary Care Unavailable SIMPSON, RACQUEL F Primary Care Unavailable CHITRA BATISTA Attending Unavailable SIMPSON, RACQUEL F Primary Care Unavailable MANOJ FLORES Attending Unavailable Allergies Allergy Classification Reported Allergen(s) Allergy Type Date of Onset Reaction(s) Facility (13 sources) Ciprofloxacin; Translations: [CIPROFLOXACIN] Drug Allergy 2 Nausea And Vomiting [place], [place] (13 sources) Codeine; Translations: [CODEINE] Drug Allergy 2 Seizure [place], [place] (9 sources) Promethazine Drug Allergy 2 Nausea And Vomiting [place] (1 source) Ciprofloxacin Drug Allergy 5 [facility] (1 source) Codeine Drug Allergy 5 [facility] (1 source) Levamisole Drug Allergy 5 [facility] (4 sources) Promethazine; Translations: [PROMETHAZINE] [facility] Current Medications Medication Drug Class(es) Dates Sig (Normalized) Sig (Original) [id number] 200 actuat albuterol 0.09 mg/actuat metered dose inhaler (3 sources) beta2-Adrenergic Agonist Start: 06-03-2021 End: 11-14-2022 take 2 puff(s) by mouth every six hours as needed albuterol sulfate HFA 108 (90 Base) MCG/ACT inhaler INHALE 2 PUFFS BY MOUTH EVERY 6 HOURS NEEDED 0 06/03/2021 11/14/2022 Discontinued (LIST CLEANUP) amoxicillin 500 mg oral capsule (2 sources) Penicillin-class Antibacterial Start: 06-02-2024 End: 06-09-2024 take 1 capsule by mouth three times daily amoxicillin (AMOXIL) 500 MG capsule Take 1 capsule by mouth 3 times daily for 7 days 21 capsule 06/02/2024 06/09/2024 Active Start: 11-14-2022 End: 11-24-2022 take 10 mL [...] by mouth once daily in the morning amphetamine-dextroamphetamine (ADDERALL) 30 MG tablet TAKE 1 TABLET [...] 1 ml diphenhydrAMINE hydrochloride 50 mg/ml cartridge (5 sources) Histamine-1 Receptor Antagonist Start: 05-26-2022 diphenhydrAMINE (BENADRYL) injection 50 mg Start: 05-25-2022 diphenhydrAMIN E (BENADRYL) tablet 25 mg Start: 05-25-2022 End: 05-26-2022 25 mg, IntraVENous, EVERY 6 HOURS PRN, Starting on Tue05/25/22 at 1614, Until Tue05/26/22 at 0408, Itching, Sleep, Anxiety, Hives, Start: 09-29-2019 take 1 capsule by mo uth once daily as needed diphenhydrAMINE (BENADRYL) 25 mg capsule Take 1 capsule (25 mg total) by mouth nightly as needed for itching. 30 capsule 0 09/29/2019 Active docusate sodium 100 mg oral capsule (3 sources) Start: 09-03-2023 take 1 capsule by mouth in the morning, then take 1 capsule by mouth at bedtime docusate sodium (COLACE) 100 mg capsule Take 1 capsule (100 mg total) by mouth in the morning and 1 capsule (100 mg total) before bedtime. 60 capsule 0 09/03/2023 Active Start: 05-25-2022 take 100 mg by mouth twice daily 100 mg, Oral, 2 TIMES DAILY, First dose on Tue05/25/22 at 2100, Until Discontinued Do not crush or break. docusate sodium 50 mg / sennosides, mcc 8.6 mg oral tablet (2 sources) Start: 05-25-2022 End: 11-14-2022 take 1 tablet by mouth once daily sennosides-docusate sodium (SENOKOT-S) 8.6-50 MG tablet Take 1 tablet by mouth daily 30 tablet 1 05/25/2022 11/14/2022 Discontinued (LIST CLEANUP) doxylamine succinate 25 mg oral tablet (1 source) Start: 05-26-2022 doxyLAMINE suc cinate (GNP SLEEP AID) tablet 25 mg ferrous sulfate 325 mg oral tablet (4 sources) Start: 09-07-2023 take 1 tablet by mouth once daily at breakfast ferrous sulfate 325 (65 FE) mg tablet Take 1 tablet (325 mg total) by mouth daily with breakfast. 60 tablet 0 09/07/2023 Active Start: 05-26-2022 End: 11-14-2022 take 1 tablet by mouth twice daily ferrous sulfate (IRON 325) 325 (65 Fe) MG tablet Take 1 tablet by mouth 2 times daily 60 tablet 5 05/26/2022 11/14/2022 Discontinued (LIST CLEANUP) Start: 05-26-2022 ferrous sulfat e (FE TABS 325) EC tablet 325 mg hydrALAZINE hydrochloride 50 mg oral tablet (1 source) Arteriolar Vasodilator Start: 09-07-2023 take 1 tablet by mouth every eight hours hydrALAZINE (APRESOLINE) 50 mg tablet Take 1 tablet (50 mg total) by mouth every 8 (eight) hours. 90 tablet 1 09/07/2023 Active ibuprofen 800 mg oral tablet (7 sources) Nonsteroidal Anti-inflammatory Drug Start: 09-07-2023 take 1 tablet by mouth every eight hours as needed for pain ibuprofen (MOTRIN) 800 mg tablet Take 1 tablet (800 mg total) by mouth every 8 (eight) hours as needed for pain. 30 tablet 0 09/07/2023 Active Start: 11-14-2022 End: 03-07-2023 take 30 mL [...] tablet 1 05/25/2022 11/14/2022 Discontinued (Therapy completed) IBUPROFEN PO Vinny e by mouth Active labetalol hydrochloride 200 mg oral tablet (1 source) beta-Adrenergic Tru Start: 09-07-2023 take 2 tablets by mouth every eight hours labetaloL (NORMODYNE) 200 mg tablet Take 2 tablets (400 mg total) by mouth every 8 (eight) hours. 180 tablet 1 09/07/2023 Active lanolin 0.5 mg/mg topical ointment (1 source) Start: 05-25-2022 Topical, EVERY 1 HOUR PRN, Dry Skin, nipple discomfort, Starting on Tue05/25/22 at 1614 loratadine 10 mg oral tablet (3 sources) Start: 06-03-2021 End: 11-14-2022 take 1 tablet by mouth once daily loratadine (CLARITIN) 10 MG tablet TAKE 1 TABLET BY MOUTH DAILY 0 06/03/2021 11/14/2022 Discontinued (LIST CLEANUP) magnesium oxide 400 mg oral tablet (1 source) Start: 09-08-2023 take 1 tablet by mouth in the morning magnesium oxide (MAGOX) 400 mg tablet Take 1 tablet (400 mg total) by mouth in the morning. 30 tablet 1 09/08/2023 Active melatonin 5 mg oral tablet (1 source) Start: 05-25-2022 melatonin tablet 5 mg metoclopramide 10 mg oral tablet (4 sources) Dopamine-2 Receptor Antagonist Start: 09-29-2019 End: 11-14-2022 take 1 tablet by mouth four times daily metoclopramide (REGLAN) 10 mg tablet Take 1 tablet (10 mg total) by mouth 4 (four) times a day. 30 tablet 0 09/29/2019 Active NIFEdipine 30 mg osmotic 24 hr extended release oral tablet (4 sources) Dihydropyridine Calcium Channel Tru Start: 05-28-2022 End: 03-07-2023 take 1 tablet by mouth once daily NIFEdipine (PROCARDIA XL) 30 MG extended release tablet Take 1 tablet by mouth daily 30 tablet 3 05/29/2022 03/07/2023 Discontinued (LIST CLEANUP) ondansetron 4 mg disintegrating oral tablet (11 sources) Serotonin-3 Receptor Antagonist Start: 05-25-2022 4 [...] 05-06-2019 ondansetron (ZOFRAN) injecti on 4 mg take 1 tablet by ok th every eight hours as needed for nausea ondansetron (ZOFRAN) 4 MG tablet Take 1 tablet by mouth every 8 hours as needed for Nausea or Vomiting Active oxyCODONE (2 sources) Opioid Agonist Start: 05-26-2022 [...] for 11 minutes (10 units in 167ml). 25/iron fum/folic/dha (-1 ORAL) (2 sources) 25/iron fum/folic/dha (-1 ORAL) Take by mouth. 0 Active MV-Min-Fe Fum-FA-DHA ( 1 PO) (4 sources) [...] Sig (Original) acetaminophen 500 mg oral tablet (4 sources) Start: 05-25-2022 1,000 mg, Oral, EVERY 6 HOURS, First dose on Tue05/25/22 at 1630, Until Discontinued Maximum dose of acetaminophen is 4000mg from all sources in 24 hours. Alternate ibuprofen and acetaminophen every 4 hours. Start: 09-30-2019 take 2 tablets by mo [facility] every six hours as needed for headache acetaminophen (TYLENOL) 325 mg tablet Take 2 tablets (650 mg total) by mouth every 6 (six) hours as needed for headaches. 30 tablet 0 09/30/2019 Active take 1 tablet by [facility] every six hours as needed for pain acetaminophen (TYLENOL) 500 MG tablet Take 1 tablet by mouth every 6 hours as needed for Pain Active acetaminophen 325 mg / oxyCODONE hydrochloride 5 mg oral tablet (1 source) Opioid Agonist Start: 05-06-2019 End: 05-06-2019 oxyCODONE-acetaminophen (PERCOCET) 5-325 MG per tablet 1 tablet [...] daily 0 06/07/2018 05/06/2019 Discontinued (Therapy completed) 0.4 ml enoxaparin sodium 100 mg/ml prefilled [...] M G/ML injection HYDROmorphone (DILAUDID) 1 mg/mL SHRIMPER (1 source) Start: 05-25-2022 End: 05-26-2022 HYDROmorphone (DILAUDID) 1 mg/mL SHRIMPER 1 ml ketorolac tromethamine 30 mg/ml cartridge [...] premix Start: 05-25-2022 End: 05-26-2022 magnesium sulfate (68989 mg/ 500mL infusion) Start: 05-25-2022 End: 05-25-2022 [...] Until Discontinued, Opioid Reversal polyethylene glycol 3350 53660 mg powder for oral solution (1 source) [...] Problem Classification Problem Date Documented Date Episodic/Chronic Attention-deficit conduct and disruptive behavior disorders (9 sources) Attention deficit hyperactivity disorder, predominantly inattentive type; Translations: [Attention-deficit hyperactivity disorder, predominantly inattentive type] Onset: 04-01-2015 04-01-2015 Chronic Essential hypertension (2 sources) Hypertensive disorder; Translations: [Essential (primary) hypertension] Onset: 08-31-2023 Chronic Headache; including migraine (1 source) Migraine, unspecified, not intractable, without status migrainosus; Translations: [MIGRAINE UNS NOT INTRACT W/O SM] Onset: 05-28-2022 Chronic Other circulatory disease (1 source) Elevated blood-pressure reading, without diagnosis of hypertension; Translations: [Elevated blood-pressure reading, without diagnosis of hypertension] Onset: 09-08-2023 Episodic Other complications of ; puerperium affecting management of mother (2 sources) delivery - delivered; Translations: [Encounter for delivery without indication] Onset: 05-25-2022 Episodic Other complications of ; puerperium affecting management of mother (1 source) Encounter for delivery without indication; Translations: [Encounter for delivery without indication] Onset: 05-25-2022 Episodic Other lower respiratory disease (1 source) Cough; Translations: [Cough] Episodic Other nervous system disorders (1 source) Other acute postprocedural pain; Translations: [Other acute postprocedural pain] Onset: 08-31-2023 Episodic Other upper respiratory disease (1 source) Congestion of nasal sinus; Translations: [Nasal congestion] Episodic Other upper respiratory infections (4 sources) Acute pharyngitis; Translations: [Acute pharyngitis, unspecified] Onset: 06-02-2024 Episodic Residual codes; unclassified (3 sources) Taking high risk medication; Translations: [High risk medication use] Onset: 04-01-2015 04-01-2015 Rheumatoid arthritis and related disease (16 sources) 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; 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] Onset: 01-25-2020 11-19-2015 Chronic Unclassified (1 source) severe preeclampsia, eclamptic seizure Onset: 08-31-2023 Past or Other Problems Problem Classification Problem Date Documented Date Episodic/Chronic Abdominal pain (20 sources) Right upper quadrant pain; Translations: [Epigastric pain] Onset: 06-23-2015 06-23-2015 Episodic Appendicitis and other appendiceal conditions (9 sources) Acute appendicitis; Translations: [Unspecified acute appendicitis] Onset: 08-15-2017 08-15-2017 Episodic Fever of unknown origin (2 sources) Fever; Translations: [Fever, unspecified] Onset: 03-17-2023 Episodic Genitourinary symptoms and ill-defined conditions (1 source) Hematuria, unspecified; Translations: [Urinary tract infection with hematuria, site unspecified] Onset: 03-13-2023 Episodic Headache; including migraine (9 sources) Headache; Translations: [Headache] Onset: 10-14-2019 06-30-2020 Episodic Hemorrhage during ; abruptio placenta; placenta previa (1 source) Low lying placenta NOS or without hemorrhage, third trimester; Translations: [LOW LYING PL NOS W/O HEMORR 3RD TRI] Onset: 05-09-2022 Episodic Hypertension complicating ; childbirth and the puerperium (8 sources) Eclampsia; Translations: [Eclampsia, unspecified as to time period] Onset: 05-25-2022 Episodic Immunizations and screening for infectious disease (9 sources) Contact with and (suspected) exposure to other viral communicable diseases; Translations: [Contact with and (suspected) exposure to infections with a predominantly sexual mode of transmission] Onset: 07-06-2019 06-30-2020 Episodic Inflammatory diseases of female pelvic organs (7 sources) Acute vaginitis; Translations: [Acute vaginitis] Onset: 01-25-2020 06-30-2020 Episodic Nausea and vomiting (1 source) Nausea with vomiting, unspecified; Translations: [Nausea and vomiting, unspecified vomiting type] Onset: 03-17-2023 Episodic Nonspecific chest pain (1 source) Chest pain, unspecified; Translations: [CHEST PAIN UNSPECIFIED] Onset: 05-28-2022 Episodic Other circulatory disease (2 sources) Elevated blood pressure; Translations: [Elevated blood-pressure reading, without diagnosis of hypertension] Onset: 09-28-2019 09-28-2019 Episodic Other complications of ; puerperium affecting management of mother (3 sources) Deliveries by ; Translations: [Encounter for [...] LABR 3RD TRI] Onset: 05-28-2022 Episodic Other hematologic conditions (1 source) Personal history of diseases of the blood and blood-forming organs and certain disorders involving the immune mechanism; Translations: [History of autoimmune disease] Onset: 03-13-2023 Episodic Other and delivery including normal (5 sources) state; Translations: [Encounter for routine follow-up] Onset: 05-28-2022 Episodic Other screening for suspected conditions (not mental disorders or infectious disease) (4 sources) Encounter for other specified screening; Translations: [ENCTR OTH SPEC SCREENING] Onset: 05-04-2022 Episodic Residual codes; unclassified (7 sources) Gestation period, 26 weeks; Translations: [26 weeks gestation of ] Onset: 09-27-2019 Resolved: 05-25-2022 06-30-2020 Episodic Residual codes; unclassified (7 sources) Gestation period, 17 weeks; Translations: [17 weeks gestation of ] Onset: 07-17-2019 Resolved: 05-25-2022 06-30-2020 Episodic Residual codes; unclassified (7 sources) Gestation period, 21 weeks; Translations: [21 weeks gestation of ] Onset: 08-24-2019 Resolved: 05-25-2022 06-30-2020 Episodic Residual codes; unclassified (6 sources) Taking high risk medication; Translations: [Other chcf (current) drug therapy] Onset: 04-01-2015 04-01-2015 Episodic Residual codes; unclassified (5 sources) Postoperative state; Translations: [Other specified postprocedural states] Onset: 05-28-2022 Episodic Residual codes; unclassified (1 source) 32 weeks gestation of ; Translations: [32 WEEKS GESTATION OF ] Onset: 05-28-2022 Episodic Residual codes; unclassified (1 source) 29 weeks gestation of ; Translations: [29 WEEKS GESTATION OF ] Onset: 05-09-2022 Episodic Residual codes; unclassified (1 source) 8 weeks gestation of ; Translations: [8 weeks gestation of ] Onset: 03-17-2023 Episodic Spontaneous (1 source) Complete or unspecified spontaneous without complication; Translations: [Complete or unspecified spontaneous without complication] Onset: 02-12-2024 Episodic Sprains and strains (1 source) Low back strain; Translations: [Strain of lumbar region, initial encounter] Episodic Urinary tract infections (1 source) Urinary tract infection, site not specified; Translations: [Urinary tract infection with hematuria, site unspecified] Onset: 03-13-2023 Episodic Results Test Name Value Interpretation Reference Range Facility CBC W Auto Differential pane l (Bld)on 03-08-2024 Basophils (Bld) [#/Vol] 0.04 10*3/uL Normal <0.11 [facility] Comment on above: Order Comment: Speci men Type: BLOOD SPECIMEN Ordering Facility: [facility] Address: [address] [place] [address] Performed By: #### 1 9123-9, 63608-2 #### [facility] CLIA [id number] [address] [place] [address] [place] Basophils/100 WBC (Bld) 0.4 % Normal [facility] Comment on above: Order Comment: Speci men Type: BLOOD SPECIMEN Ordering Facility: [facility] Address: [address] [place] [address] Performed By: #### 1 9123-9, 07316-3 #### [facility] CLIA [id number] [address] [place] [address] [place] Differential cell count method Nom (Bld) Auto Normal [facility] Comment on above: Order Comment: Speci men Type: BLOOD SPECIMEN Ordering Facility: [facility] Address: [address] [place] [address] Performed By: #### 1 9123-9, 84042-4 #### [facility] CLIA [id number] [facility] [place] [address] [place] Eosinophils (Bld) [#/Vol] 0.32 10*3/uL Normal <0.46 [facility] Comment on above: Order Comment: Speci men Type: BLOOD SPECIMEN Ordering Facility: [facility] Address: [address] [place], [place] [address] Performed By: #### 1 9123-9, 59643-6 #### [facility] CLIA [id number] [address] [place] [address] [place] Eosinophils/100 WBC (Bld) 3.1 % Normal [facility] Comment on above: Order Comment: Speci men Type: BLOOD SPECIMEN Ordering Facility: [facility] Address: [address] [place], [place] [address] Performed By: #### 1 9123-9, #### [facility] CLIA [id number] [address] [place] [address] [place] Erythrocyte distribution width (RBC) [Ratio] 15.4 % High 11.5-15.0 [facility] Comment on above: Order Comment: Speci men Type: BLOOD SPECIMEN Ordering Facility: [facility] Address: [address] [place] [address] Performed By: #### 1 9123-9, #### [facility] CLIA [id number] [address] [place] [address] [place] Hematocrit (Bld) [Volume fraction] 31.6 % Low 36.0-46.0 [facility] Comment on above: Order Comment: Speci men Type: BLOOD SPECIMEN Ordering Facility: [facility] Address: [address] [place], [place] [id number] Performed By: #### 1 9123-9, 52019-4 #### [facility] CLIA [id number] [address] [place] [address] [place] Hemoglobin (Bld) [Mass/Vol] 9.7 g/dL Low 11.5-15.5 [facility] Comment on above: Order Comment: Speci men Type: BLOOD SPECIMEN Ordering Facility: [facility] Address: [address] Performed By: #### 1 9123-9, 56918-2 #### [facility] CLIA [id number] [address] [place] [address] [place] Immature granulocytes (Bld) [#/Vol] 0.03 10*3/uL Normal <0.10 [facility] Comment on above: Order Comment: Speci men Type: BLOOD SPECIMEN Ordering Facility: [facility] Address: [address] Performed By: #### 1 9123-9, 22529-4 #### [facility] CLIA [id number] [address] [place] [address] [place] Immature granulocytes/100 WBC (Bld) 0.3 % Normal [facility] Comment on above: Order Comment: Speci men Type: BLOOD SPECIMEN Ordering Facility: [facility] Address: [address] Performed By: #### 1 9123-9, 40073-2 #### [facility] CLIA [id number] [address] [place] [address] [place] Lymphocytes (Bld) [#/Vol] 2.43 10*3/uL Normal 1.00-4.00 [facility] Comment on above: Order Comment: Speci men Type: BLOOD SPECIMEN Ordering Facility: [facility] Address: [address] Performed By: #### 1 9123-9, 34449-7 #### [facility] CLIA [id number] [address] [place] [address] [place] Lymphocytes/100 WBC (Bld) 23.6 % Normal [facility] Comment on above: Order Comment: Speci men Type: BLOOD SPECIMEN Ordering Facility: [facility] Address: [address] Performed By: #### 1 239, #### [facility] CLIA [id number] [address] [place] [address] [place] MCH (RBC) [Entitic mass] 23.6 pg Low 26.0-34.0 [facility] Comment on above: Order Comment: Speci men Type: BLOOD SPECIMEN Ordering Facility: [facility] Address: [address] Performed By: #### 1 [id number], #### [facility] CLIA [id number] [address] [place] [address] [place] MCHC (RBC) [Mass/Vol] 30.7 g/dL Normal 30.5-36.0 [facility] Comment on above: Order Comment: Speci men Type: BLOOD SPECIMEN Ordering Facility: [facility] Address: [address] [place], [place] [address] Performed By: #### 1 9123-04, #### [facility] CLIA [id number] [address] [place] [address] [place] MCV (RBC) [Entitic vol] 76.9 fL Low 80.0-100.0 [facility] Comment on above: Order Comment: Speci men Type: BLOOD SPECIMEN Ordering Facility: [facility] Address: [address] Performed By: #### 1 239, #### [facility] CLIA [id number] [address] [place] [address] [place] Monocytes (Bld) [#/Vol] 0.57 10*3/uL Normal <0.87 [facility] Comment on above: Order Comment: Speci men Type: BLOOD SPECIMEN Ordering Facility: [facility] Address: [address] [place], [place] [address] Performed By: #### 1 9123-9, 61622-7 #### [facility] CLIA [id number] [address] [place] [address] [place] Monocytes/100 WBC (Bld) 5.5 % Normal [facility] Comment on above: Order Comment: Speci men Type: BLOOD SPECIMEN Ordering Facility: [facility] Address: [address] [place] [address] Performed By: #### 1 9123-9, 85370-5 #### [facility] CLIA [id number] [address] [place] [address] [place] Neutrophils (Bld) [#/Vol] 6.89 10*3/uL Normal 1.45-7.50 [facility] Comment on above: Order Comment: Speci men Type: BLOOD SPECIMEN Ordering Facility: [facility] Address: [address] [place] [address] Performed By: #### 1 9123-9, 32457-2 #### [facility] CLIA [id number] [facility] [place] [address] [place] Neutrophils/100 WBC (Bld) 67.1 % Normal [facility] [facility] Comment on above: Order Comment: Speci men Type: BLOOD SPECIMEN Ordering Facility: [facility] Address: [address] [place] [address] Performed By: #### 1 9123-9, 89728-7 #### [facility] CLIA [id number] [address] [place] [address] [place] Nucleated RBC (Bld) [#/Vol] 10*3/uL Normal <0.01 [facility] Comment on above: Order Comment: Speci men Type: BLOOD SPECIMEN Ordering Facility: [facility] Address: [address] [place] [address] Performed By: #### 1 9123-9, 09869-2 #### [facility] CLIA [id number] [address] [place] [address] [place] Nucleated RBC/100 WBC (Bld) [Ratio] 0.0 /100 WBC Normal [facility] Comment on above: Order Comment: Speci men Type: BLOOD SPECIMEN Ordering Facility: [facility] Address: [address] [place], [place] [address] Performed By: #### 1 9123-9, 35320-3 #### [facility] CLIA [id number] [address] [place] [address] [place] Platelet mean volume (Bld) [Entitic vol] 9.0 fL Normal 9.0-12.7 [facility] Comment on above: Order Comment: Speci men Type: BLOOD SPECIMEN Ordering Facility: [facility] Address: [address] [place], [place] [address] Performed By: #### 1 9123-9, 54683-9 #### [facility] CLIA [id number] [address] [place] [address] [place] Platelets (Bld) [#/Vol] 477 10*3/uL High 150-400 [facility] Comment on above: Order Comment: Speci men Type: BLOOD SPECIMEN Ordering Facility: [facility] Address: [address] [place], [place] [address] Performed By: #### 1 9123-9, 63469-4 #### [facility] CLIA [id number] [address] [place] [address] [place] RBC (Bld) [#/Vol] 4.11 10*6/uL Normal 3.90-5.20 [facility] Comment on above: Order Comment: Speci men Type: BLOOD SPECIMEN Ordering Facility: [facility] Address: [address] Performed By: #### 1 9123-9, 93631-1 #### [facility] CLIA [id number] [address] [place] [id number] [place] WBC (Bld) [#/Vol] 10.28 10*3/uL Normal 3.70-11.00 [facility] Comment on above: Order Comment: Speci men Type: BLOOD SPECIMEN Ordering Facility: [facility] Address: [address] [place] [address] Performed By: #### 1 9123-9, 65138-7 #### [facility] CLIA [id number] [address] [facility] [place] [address] [place] CT BRAIN WO IVCONon 03-08-20 CT BRAIN WO IVCON * * *Final Report* * * DATE OF EXAM: Mar 08 2024 5:24PM [facility] 0504 - CT BRAIN WO IVCON / PROCEDURE REASON: Headache, sudden, severe * * * * Physician Interpretation * * * * EXAMINATION: CTA HEAD W IVCON, CT BRAIN WO IVCON HISTORY: Worsening headaches over the last 2 weeks with photophobia. TECHNIQUE: Routine CT of the brain without IV contrast. Next, spiral high resolution axial images were obtained through the head following bolus administration of intravenous contrast for CT angiography. 3D maximum intensity projection images were created, reviewed and archived . MQ: CTABPlus_4 Contrast: 80 mL Omnipaque [address] Radiation dose: Integrated Dose-Length Product (DLP) for this visit = 1545 mGy*cm. CT Dose Reduction Employed: No dose reduction techniques were required COMPARISON: CT C-spine 02/21/2014. RESULT: Acute change: No evidence of an acute infarct or other acute parenchymal process. ASPECT Score = 10 Hemorrhage: No evidence of acute intracranial hemorrhage. ECASS hemorrhagic transformation score: Not Applicable Mass Effect / Mass Lesion: There is no evidence of an intracranial mass or extra-axial fluid collection. No significant mass effect. Chronic change: None apparent. Parenchyma: There is no significant volume loss. The brain parenchyma is otherwise within normal limits for age. Ventricles: The ventricles are within normal limits of size and configuration for age. Other: The visualized paranasal sinuses are grossly clear. The skull and visualized extracranial soft tissues are grossly normal. ARTERIOGRAM: Acute Stroke on CTA: Evaluation of the individual slices of the CTA demonstrates no evidence of an acute stroke. Anterior circulation: Distal ICAs, ACAs and MCAs are normal in caliber. A1 segments are codominant. Posterior circulation: Distal vertebral arteries, basilar trunk and bell hole digger are normal in caliber. Left V4 is dominant. configuration of the left SHRIMPER. Proximal SCAs, AICAs and PICAs are patent. No vessel cut off, filling defect, significant focal narrowing or evidence of aneurysm. Opacified dural venous sinuses and major deep and superficial draining veins are patent. Concrete Vault Maker (topogram) images: No significant findings. IMPRESSION: No acute intracranial abnormality. No large vessel occlusion, stenosis, or aneurysm. Arterial blood flow was measured to detect acute large vessel occlusion by computer aided detection software: Not Performed. Concordance between software and imaging review: Not Applicable. Care Services Manager: JAYMIE Transcribe Date/Time: Mar 08 2024 5:26P Dictated by : JOI MANN, DO This examination was interpreted and the report reviewed and electronically signed by: CIERRA CUEVA MD on Mar 08 2024 5:37PM EST [id number] Normal [facility] CTA HEAD W IVCONon 4 CTA HEAD W IVCON * * *Final Report* * * DATE OF EXAM: Mar 08 2024 5:24PM [facility] 0022 - CTA HEAD W IVCON / PROCEDURE REASON: Headache, sudden, severe * * * * Physician Interpretation * * * * EXAMINATION: CTA HEAD W IVCON, CT BRAIN WO IVCON HISTORY: Worsening headaches over the last 2 weeks with photophobia. TECHNIQUE: Routine CT of the brain without IV contrast. Next, spiral high resolution axial images were obtained through the head following bolus administration of intravenous contrast for CT angiography. 3D maximum intensity projection images were created, reviewed and archived . MQ: CTABPlus_4 Contrast: 80 mL Omnipaque [address] Radiation dose: Integrated Dose-Length Product (DLP) for this visit = 1545 mGy*cm. CT Dose Reduction Employed: No dose reduction techniques were required COMPARISON: CT C-spine 02/21/2014. RESULT: Acute change: No evidence of an acute infarct or other acute parenchymal process. ASPECT Score = 10 Hemorrhage: No evidence of acute intracranial hemorrhage. ECASS hemorrhagic transformation score: Not Applicable Mass Effect / Mass Lesion: There is no evidence of an intracranial mass or extra-axial fluid collection. No significant mass effect. Chronic change: None apparent. Parenchyma: There is no significant volume loss. The brain parenchyma is otherwise within normal limits for age. Ventricles: The ventricles are within normal limits of size and configuration for age. Other: The visualized paranasal sinuses are grossly clear. The skull and visualized extracranial soft tissues are grossly normal. ARTERIOGRAM: Acute Stroke on CTA: Evaluation of the individual slices of the CTA demonstrates no evidence of an acute stroke. Anterior circulation: Distal ICAs, ACAs and MCAs are normal in caliber. A1 segments are codominant. Posterior circulation: Distal vertebral arteries, basilar trunk and bell hole digger are normal in caliber. Left V4 is dominant. configuration of the left SHRIMPER. Proximal SCAs, AICAs and PICAs are patent. No vessel cut off, filling defect, significant focal narrowing or evidence of aneurysm. Opacified dural venous sinuses and major deep and superficial draining veins are patent. Concrete Vault Maker (topogram) images: No significant findings. IMPRESSION: No acute intracranial abnormality. No large vessel occlusion, stenosis, or aneurysm. Arterial blood flow was measured to detect acute large vessel occlusion by computer aided detection software: Not Performed. Concordance between software and imaging review: Not Applicable. Care Services Manager: JAYMIE Transcribe Date/Time: Mar 08 2024 5:26P Dictated by : JOI MANN DO This examination was interpreted and the report reviewed and electronically signed by: CIERRA CUEVA MD on Mar 08 2024 5:37PM EST [id number] Normal [facility] Comprehensive metabolic 2000 panelon 03-08-2024 Albumin [Mass/Vol] 4.1 g/dL Normal 3.9-4.9 [facility] Comment on above: Order Comment: Tee francisco Type: BLOOD SPECIMEN Ordering Facility: [facility] Address: [address] [place] [id number] Performed By: #### 1 9123-9, 00545-2 #### [facility] CLIA [id number] [address] [place] [address] [place] ALP [Catalytic activity/Vol] 83 U/L Normal 34-123 [facility] Comment on above: Order Comment: Neemai men Type: BLOOD SPECIMEN Ordering Facility: [facility] Address: [address] [place] [id number] Performed By: #### 1 9123-9, 37000-9 #### [facility] CLIA [id number] [address] [place] [address] [place] ALT [Catalytic activity/Vol] 6 U/L Low 7-38 [facility] Comment on above: Order Comment: Speci men Type: BLOOD SPECIMEN Ordering Facility: [facility] Address: [address] [place] [address] Performed By: #### 1 9123-9, 90202-0 #### [facility] CLIA [id number] [address] [place] [address] [place] Anion gap [Moles/Vol] 10 mmol/L Normal 8-15 [facility] Comment on above: Order Comment: Speci men Type: BLOOD SPECIMEN Ordering Facility: [facility] Address: [address] [place] [address] Performed By: #### 1 9123-9, 60319-6 #### [facility] CLIA [id number] [address] [place] [address] [place] AST [Catalytic activity/Vol] 8 U/L Low 13-35 [facility] Comment on above: Order Comment: Speci men Type: BLOOD SPECIMEN Ordering Facility: [facility] Address: [address] [place], [place] [address] Performed By: #### 1 9123-9, 33428-0 #### [facility] CLIA [id number] [address] [place] [address] [place] Bilirubin [Mass/Vol] mg/dL Low 0.2-1.3 [facility] Comment on above: Order Comment: Speci men Type: BLOOD SPECIMEN Ordering Facility: [facility] Address: [address] [place], [place] [address] Performed By: #### 1 9123-9, 56168-1 #### [facility] CLIA [id number] [address] [place] [address] [place] Calcium [Mass/Vol] 9.0 mg/dL Normal 8.5-10.2 [facility] Comment on above: Order Comment: Speci men Type: BLOOD SPECIMEN Ordering Facility: [facility] Address: [address] Performed By: #### 1 9123-9, 04987-5 #### [facility] CLIA [id number] [address] [place] [address] [place] Chloride [Moles/Vol] 108 mmol/L High 98-107 [facility] Comment on above: Order Comment: Speci men Type: BLOOD SPECIMEN Ordering Facility: [facility] Address: [address] Performed By: #### 1 9123-9, 23086-9 #### [facility] CLIA [id number] [address] [place] [address] [place] CO2 [Moles/Vol] 22 mmol/L Normal 22-30 [facility] Comment on above: Order Comment: Speci men Type: BLOOD SPECIMEN Ordering Facility: [facility] Address: [address] [place], [place] [address] Performed By: #### 1 9123-9, 10134-3 #### [facility] CLIA [id number] [address] [place] [address] [place] Creatinine [Mass/Vol] 0.79 mg/dL Normal 0.58-0.96 [facility] Comment on above: Order Comment: Speci men Type: BLOOD SPECIMEN Ordering Facility: [facility] Address: [address] Performed By: #### 1 9123-9, 55241-3 #### [facility] CLIA [id number] [address] [place] [address] [place] Creatinine and Glomerular filtration rate.predicted panel (S/P/Bld) 103 mL/min/1.73m??? Normal >=60 [facility] Comment on above: Order Comment: Speci men Type: BLOOD SPECIMEN Ordering Facility: [facility] Address: [address] [place] [address] Result Comment: Marisa mated Glomerular Filtration Rate [...] actual GFR. Performed By: #### 1 9123-9, 49013-2 #### [facility] CLIA [id number] [address] [place] [address] [place] Glucose [Mass/Vol] 103 mg/dL High 74-99 [facility] Comment on above: Order Comment: Tee francisco Type: BLOOD SPECIMEN Ordering Facility: [facility] Address: [address] [place] [address] Result Comment: The [place] [employer] (ADA) provides guidance for cutoff [...] Standards of Medical Care in Diabetes 2016, [place] [employer]. Diabetes Care. 2016.39(Suppl 1). Performed By: #### 1 9123-9, 86556-8 #### [facility] CLIA [id number] [address] [place] [address] [place] Potassium [Moles/Vol] 3.9 mmol/L Normal 3.7-5.1 [facility] Comment on above: Order Comment: Tee francisco Type: BLOOD SPECIMEN Ordering Facility: [facility] Address: [address] [phone] Performed By: #### 1 9123-9, 66609-5 #### [facility] CLIA [id number] [address] [place] [address] [place] Protein [Mass/Vol] 6.7 g/dL Normal 6.3-8.0 [facility] Comment on above: Order Comment: Speci men Type: BLOOD SPECIMEN Ordering Facility: [facility] Address: [address] [place] [address] Performed By: #### 1 9123-9, 32793-5 #### [facility] CLIA [id number] [address] [place] [address] [place] Sodium [Moles/Vol] 140 mmol/L Normal 136-144 [facility] Comment on above: Order Comment: Speci men Type: BLOOD SPECIMEN Ordering Facility: [facility] Address: [address] [place] [address] Performed By: #### 1 9123-9, 35890-3 #### [facility] CLIA [id number] [address] [place] [address] [place] Urea nitrogen [Mass/Vol] 15 mg/dL Normal 7-21 [facility] Comment on above: Order Comment: Speci men Type: BLOOD SPECIMEN Ordering Facility: [facility] Address: [address] [place] [address] Performed By: #### 1 9123-9, 52219-3 #### [facility] CLIA [id number] [address] [place] [address] [place] ED PROV NOTEon 03-08-2024 ED PROV NOTE HNO ID: [id number] Author: PILAR LOERA MD Service: Emergency Medicine Author Type: Physician Type: ED Provider Notes Filed: 03/08/2024 20:44 Note Text: EMERGENCY MEDICINE NOTE Patient presents with: Headache: Headache for two weeks, no relief with pain medications at home. Hx of brain aneurysm, that was dx 6 months ago with MRI @ OSH. 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 Has had a headache for the past 2 weeks, progressively worsening. Difficult to remember if it was thunderclap onset. Located behind her eyes and diffusely through her head. Does have some associated photophobia, nausea, vomiting. Does have a positional component. Denies any systemic infectious symptoms, preceding head trauma, neck stiffness, focal neurologic symptoms. Reports she was told her MRI showed a aneurysm in her brain that she never followed up for and is concerned this may represent a bleed. Is unsure if she could be , but does report she had a miscarriage about 3 weeks ago. PMH/PSH: PAST MEDICAL HISTORY Diagnosis Date ADHD (attention deficit hyperactivity disorder) Hemangioma Microcytic anemia Miscarriage depression Still's disease (HCC) Vitamin D insufficiency PAST SURGICAL HISTORY Procedure Laterality Date MIDLINE INSERTION/CONSULT 11/16/2013 Review of Systems Physical Exam: BP 148/91 Pulse (!) 105 Temp 36.6 ?C (97.9 ?F) (Oral) Resp 16 Wt 112.5 kg (248 lb) LMP (LMP Unknown) SpO2 98% BMI 42.57 kg/m? General: alert, NAD, nontoxic appearing HENT: No external evidence of trauma. Moist oral mucosa Cardiovascular: RRR, S1/S2 present and nml, no MGR. 2+ pulses throughout. No carotid bruits. Pulmonary: CTAB, normal WOB Abdomen: Soft. NTND. No peritoneal findings, no rebound tenderness, guarding, or rigidity. Musculoskeletal: No gross bony deformities. Extremities: No pitting edema BLE. No DVT findings. Skin: Warm, dry. No rashes or lesions to exposed skin Neuro: AOx3. CN II-XII intact. Strength 5/5 throughout. Sensation to light touch intact throughout. No gross FND. FTN intact bilaterally. No nuchal rigidity. Ambulates without assistance ED COURSE: ED Course as of 03/08/24 278 Manoj Rivas's Documentation [facility] Mar 08, 2024 4814 Temp: 36.6 ?C (97.9 ?F) 1744 Pulse(!): 105 1744 BP: 148/91 1744 Resp: 16 1744 SpO2: 98 % Afebrile. Mildly tachycardic. Normotensive. Normal RR. Satting well on RA 1747 CT/CTA head: My personal interpretation: No large intracranial bleeds or obvious LVO Radiology interpretation: No acute intracranial abnormality. No large vessel occlusion, stenosis, or aneurysm. 1837 On re-evaluation, patient feels significantly improved after meds. 1851 CBCD: Mildly worsened anemia compared to baseline. Mildly elevated platelets. No leukocytosis. 1852 Urine hCG (POCT): Negative 1857 CMP: LFTs WNL. Renal function WNL. Electrolytes and acid-base status WNL 1857 Magnesium: 2.0 WNL Others' Documentation [facility] Mar 08, 2024 184 ED STAFF ATTENDING MDM 33 year old with history of prior eclampsia, here with two weeks of headache not improved with tylenol, reports history of aneurysm as well. On exam, alert, non-toxic appearing, EOMI, PERR, face symmetric, tongue protrudes in midline, no carotid bruit. CT brain and CTA with no acute findings including no visualized aneurysm. Feels improved with reglan, magnesium. Asking for DC (needs to go for family concern.) HOWEVER, also reports recent miscarriage in the last four weeks. Explained that with her history and being hypertensive, eclampsia could be at play and would require IV medications to address appropriately. She politely declines and reports she would prefer to follow up with her local Diver Assistant. She has capacity to make that decision. Advised to return for any worsening. [SD] ED Course User Index [SD] Pilar Loera MD Clinical Impressions as of 03/08/241908 Headache disorder Nausea and vomiting, unspecified vomiting type Procedures MDM: Nontoxic appearing and hemodynamically stable with reassuring vital signs apart from mild tachycardia. Workup from triage includes CT/CTA head, urine hCG. Added CBCD, CMP, Mg given reported history of recent miscarriage. Given reglan, mag, 1L LR bolus for JONES cocktail. CT/CTA without evidence of ICH or aneurysm. On reevaluation, symptoms had significantly improved and is requesting to leave as her infant at home was with the installment loan collector who is having issues. Deemed to have capacity. Very low suspicion for SAH based on HANDP, negative CT imaging. Made follow-up appointment with [facility] neurology and encour (more content not included)... Normal [facility] ED Triage Noteon 03-08-2024 ED Triage Note HNO ID: [id number] Author: MARGOT ARAUJO MD Service: Emergency Medicine Author Type: Physician Type: ED Triage Notes Filed: 03/08/2024 15:53 Note Text: ED TRIAGE PROVIDER NOTE Patient Name: Qian Clements Service Date: 03/08/24 BRIEF HPI: This is a 33 year old female who presents to the ED with: co jones 2 weeks seems worse + tob on going jones +photophobia no nasuea today 6 mo hd sz preeclampsia and sz imaging aneurysm Small infundibulum versus aneurysm [~2 mm] arising at the origin of the left dominant posterior communicating artery [saved screen shot(s)]. Sizable right posterior to indicating artery is present. Unremarkable vertebral, basilar arteries. BRIEF EXAM: NAD Awake and Alert Non labored breathing No focal neurological deficits neck from neuro non focal INITIAL WORKUP AND DECISION MAKING: Orders Placed This Encounter No orders of the defined types were placed in this encounter. SIGNATURE: Margot Araujo MD Normal [facility] Magnesium SerPl-mCncon 03-08 Magnesium [Mass/Vol] 2.0 mg/dL Normal 1.7-2.3 [facility] Comment on above: Order Comment: Speci men Type: BLOOD SPECIMEN Ordering Facility: [facility] Address: [address] [place] [address] Performed By: #### 1 9123-9, 73035-1 #### [facility] CLIA [id number] [address] [facility] [place] [address] [place] Basic Metabolic Profon 02-11 Anion gap [Moles/Vol] 13 mmol/L Normal - [facility] Comment on above: Performed By: #### B MP, CDP #### [facility] [address] [place] [address] Cabana Attendant: Aaron Arteaga MD BUN/CRE Ratio 13 Normal - [facility] Comment on above: Performed By: #### B YOJANA, CDP #### [facility] [address] [place] [address] Cabana Attendant: Aaron Arteaga MD Calcium [Mass/Vol] 9.0 mg/dL Normal 8.6-10.4 [facility] Comment on above: Performed By: #### B MP, CDP #### [facility] [address] [place] [address] Cabana Attendant: Aaron Arteaga MD Chloride [Moles/Vol] 103 mmol/L Normal 98-107 [facility] Comment on above: Performed By: #### B YOJANA, CDP #### [facility] [address] [place] [address] Cabana Attendant: Aaron Arteaga MD CO2 [Moles/Vol] 21 mmol/L Normal 20-31 [facility] Comment on above: Performed By: #### B YOJANA, CDP #### [facility] [address] [place] [address] Cabana Attendant: Aaron Arteaga MD Creatinine [Mass/Vol] 0.9 mg/dL Normal 0.5-0.9 [facility] Comment on above: Performed By: #### B YOJANA, CDP #### [facility] [address] [place], [place] [id number] Cabana Attendant: Aaron Arteaga MD GFR/1.73 sq M.predicted among non-blacks MDRD (S/P/Bld) [Vol rate/Area] 88 mL/min/{1.73_m2} Normal >60 [facility] Comment on above: Result Comment: These results [...] affects renal tubular secretion. Performed By: #### B YOJANA, CDP #### [facility] [address] [place] [address] Cabana Attendant: Araon Arteaga MD Glucose [Mass/Vol] 119 mg/dL High 70-99 [facility] Comment on above: Performed By: #### B MP, CDP #### [facility] [address] [place] [address] Cabana Attendant: Aaron Arteaga MD Potassium [Moles/Vol] 4.0 mmol/L Normal 3.7-5.3 [facility] Comment on above: Performed By: #### B YOJANA, CDP #### [facility] [address] [place] [address] Cabana Attendant: Aaron Arteaga MD Sodium [Moles/Vol] 137 mmol/L Normal 135-144 [facility] Comment on above: Performed By: #### B YOJANA, CDP #### [facility] [address] [place] [address] Cabana Attendant: Aaron Arteaga MD Urea nitrogen [Mass/Vol] 12 mg/dL Normal 6-20 [facility] Comment on above: Performed By: #### B YOJANA, CDP #### [facility] [address] [place] [address] Cabana Attendant: Aaron Arteaga MD CBC with Diffon 02-12-2024 Abs. Basophil 0.05 k/uL Normal 0.00-0.20 [facility] Comment on above: Performed By: #### B YOJANA, CDP #### [facility] [address] [place] [address] Cabana Attendant: Aaron Arteaga MD Abs.Imm.Granulocyte 0.02 k/uL Normal 0.00-0.30 [facility] Comment on above: Performed By: #### B YOJANA, CDP #### [facility] [address] [place], [place] [address] Cabana Attendant: Aaron Arteaga MD Abs.Neutrophil (Seg) 8.95 k/uL High 2.5-7.0 [facility] Comment on above: Performed By: #### B YOJANA, CDP #### [facility] [address] [place], [place] [id number] Cabana Attendant: Aaron Arteaga MD Basophils/100 WBC (Bld) 0 % Normal 0-2 [facility] Comment on above: Performed By: #### B YOJANA, CDP #### [facility] [address] [place], [place] [id number] [place] Attendant: Aaron Arteaga MD Eosinophils (Bld) [#/Vol] 0.09 10*3/uL Normal 0.00-0.40 [facility] Comment on above: Performed By: #### B YOJANA, CDP #### [facility] [address] [place], [place] [id number] [place] Attendant: Aaron Arteaga MD Eosinophils/100 WBC (Bld) 1 % Normal 0-5 [facility] Comment on above: Performed By: #### B YOJANA, CDP #### [facility] [address] [place] [address] [place] Attendant: Aaron Arteaga MD Erythrocyte distribution width (RBC) [Ratio] 15.9 % High 12.1-15.2 [facility] Comment on above: Performed By: #### B YOJANA, CDP #### [facility] [address] [place], [place] [phone] [place] Attendant: Aaron Arteaga MD Hematocrit (Bld) [Volume fraction] 33.0 % Low 36.0-46.0 [facility] Comment on above: Performed By: #### B YOJANA, CDP #### [facility] [address] [place], [place] [phone] [place] Attendant: Aaron Arteaga MD Hemoglobin (Bld) [Mass/Vol] 10.6 g/dL Low 12.0-16.0 [facility] Comment on above: Performed By: #### B YOJANA, CDP #### [facility] [address] [place] [address] [place]ana Attendant: Aaron Arteaga MD Immature granulocytes/100 WBC (Bld) 0 % Normal 0-5 [facility] Comment on above: Performed By: #### B YOJANA, CDP #### [facility] [address] [place] [id number] [place]ana Attendant: Aaron Arteaga MD Lymphocytes (Bld) [#/Vol] 2.40 10*3/uL Normal 1.00-4.80 [facility] Comment on above: Performed By: #### B YOJANA, CDP #### [facility] [address] [place] [phone] [place] Attendant: Aaron Arteaga MD Lymphocytes/100 WBC (Bld) 20 % Normal 15-40 [facility] Comment on above: Performed By: #### B YOJANA, CDP #### [facility] [address] [place] [address] [place] Attendant: Aaron Arteaga MD MCH (RBC) [Entitic mass] 24.7 pg Low 26.0-34.0 [facility] Comment on above: Performed By: #### B YOJANA, CDP #### [facility] [address] [place] [phone] [place] Attendant: Aaron Arteaga MD MCHC (RBC) [Mass/Vol] 32.1 g/dL Normal 31.0-37.0 [facility] Comment on above: Performed By: #### B MP, CDP #### [facility] [address] [place] [address] [place]ana Attendant: Aaron Arteaga MD MCV (RBC) [Entitic vol] 76.9 fL Low 80.0-100.0 [facility] Comment on above: Performed By: #### B YOJANA, CDP #### [facility] [address] [place], [place] [phone] [place] Attendant: Aaron Arteaga MD Monocytes (Bld) [#/Vol] 0.68 10*3/uL Normal 0.00-1.00 [facility] Comment on above: Performed By: #### B MP, CDP #### [facility] [address] [place], [place] [phone] [place]ana Attendant: Aaron Arteaga MD Monocytes/100 WBC (Bld) 6 % Normal 4-8 [facility] Comment on above: Performed By: #### B MP, CDP #### [facility] [address] [place] [address] Cabana Attendant: Aaron Arteaga MD Neutrophil (Seg) 73 % Normal 47-75 [facility] Comment on above: Performed By: #### B MP, CDP #### [facility] [address] [place], [place] [phone] Cabana Attendant: Aaron Arteaga MD Platelet mean volume (Bld) [Entitic vol] 8.8 fL Normal 6.0-12.0 [facility] Comment on above: Performed By: #### B MP, CDP #### [facility] [address] [place] [address] [place]ana Attendant: Aaron Arteaga MD Platelets (Bld) [#/Vol] 471 10*3/uL High 140-450 [facility] Comment on above: Performed By: #### B MP, CDP #### [facility] [address] [place] [address] [place] Attendant: Aaron Arteaga MD RBC (Bld) [#/Vol] 4.29 10*6/uL Normal 4.00-5.20 [facility] Comment on above: Performed By: #### B MP, CDP #### [facility] [address] [place] [address] Cabana Attendant: Aaron Arteaga MD WBC (Bld) [#/Vol] 12.2 10*3/uL High 3.5-11.0 [facility] Comment on above: Performed By: #### B MP, CDP #### [facility] [address] [place] [address] Cabana Attendant: Aaron Arteaga MD HCG, Quanton 02-12-2024 HCG, Quant 4942.0 mIU/mL High <5 [facility] Comment on above: Result Comment: Non-preg premeno <=5 Postmeno <=8 Male <=3 If HCG results do not concur with clinical observations, additional testing to confirm results is recommended. Performed By: #### B HCG #### [facility] [address] [place] [address] Cabana Attendant: Aaron Arteaga MD Surgical Pathology Reporton 02-12-2024 Surgical Pathology Report (NOTE) Path Number: [id number] -- Diagnosis -- PRODUCTS OF CONCEPTION, DILATATION AND CURETTAGE:-PREDOMINANT LY BLOOD WITH A SMALL FIBROTIC CHORIONIC VILLUS, CONSISTENT WITH PRODUCTS OF CONCEPTION. Alisson Marquis Electronically Signed Out tb/02/14/2024 Clinical Information Operative Findings: TISSUE dw Source of Specimen A: PRODUCTS [employer] CONCEPTION Gross Description QIAN CLEMENTS, ANDREWIGNATED Received in formalin are dark red, friable fragments, 10.0 x 5.0 x 3.0 cm in aggregate. No obvious decidual, villous or tissue is seen. Portion 3cs. tm Madison Paz/dw1:02/13/2024 Microscopic Description Microscopic examination performed. Processing Lab: [address] [address] Interpretation Performed at [address] [address] SURGICAL PATHOLOGY CONSULTATION Patient Name: QIAN CLEMENTS. Med Rec: [id number] [facility] [employer] ANATOMIC PATHOLOGY [address] [facility]. [place], [place] [address] Normal [facility] Type + Screenon 02-12-2024 Type + Screen Sample Expiration 02/15/2024,2359 Arm Band Number BWC HIDE ABO/Rh(D) O POSITIVE Antibody Screen NEGATIVE Normal [facility] Comment on above: Performed By: #### T YS #### [facility] [address] [place] [address] Cabana Attendant: Aaron Arteaga MD US OB LESS THAN 14 WEEKS SIN GLE OR FIRST GESTATIONon 02-12-2024 US OB LESS THAN 14 WEEKS SINGLE OR FIRST GESTATION EXAM: US OB LESS THAN 14 WEEKS SINGLE OR FIRST GESTATION HISTORY: Vaginal bleeding with clots, no prior confirmed IUP, patient reports should be approximately 10 weeks however no definite LMP. COMPARISON: 08/23/2023. TECHNIQUE: Transabdominal and transvaginal ultrasound of the pelvis was performed using Duplex Doppler and color-flow. Transvaginal ultrasound medically necessary for optimal imaging. FINDINGS: Abnormally shaped gestational sac visualized in the lower uterine segment of the endometrium with mean sac size measuring 11.4 mm, indicative of a 5 week 2 day gestation with estimated date of delivery 10/12/2024. No yolk sac, pole, or cardiac activity seen at this time. The right ovary measures up to 3.2 x 3.3 x 1.9 cm, and the left ovary measures up to 2.4 x 1.6 x 1.7 cm. Right ovary not visualized on transvaginal imaging. Preserved vascularity of bilateral ovaries, resistive index measuring 0.47 on the left. No significant free fluid is noted within the pelvis. No adnexal mass. IMPRESSION: Abnormally shaped gestational sac visualized in the lower uterine segment of the endometrium with mean sac size measuring 11.4 mm, indicative of a 5 week 2 day gestation with estimated date of delivery 10/12/2024. No yolk sac, pole, or cardiac activity seen at this time. Findings raise suspicion for failed and miscarriage in progress. Less likely early intrauterine gestation. Recommend close clinical follow-up with trending of beta-hCG and repeat pelvic ultrasound as clinically appropriate. Bilateral ovaries unremarkable. No adnexal mass or pelvic free fluid. Interpreted by: Zaheer Markham MD Signed by: Zaheer Markham MD 02/12/24 Final result Normal [facility] CBC AND AUTO DIFFon 09-10-19 ABSOLUTE BASOPHIL 0.0 X10E9/L Normal 0.0-0.2 [facility] Comment on above: Performed By: #### C BC, CMP, 2532-0, 3084-1, 71701-3 #### [facility] ([id number]) [address], [address] [place] [address] ABSOLUTE NEUTROPHIL 12.8 X10E9/L High 1.5-6.6 [facility] Comment on above: Performed By: #### Jeremiah JULES, CMP, 2532-0, 3084-1, 55786-6 #### [facility] ([id number]) [address], [address] [place] [address] Basophils/100 WBC (Bld) 0.1 % Normal [facility] Comment on above: Performed By: #### Jeremiah JULES, CMP, 2532-0, 3084-1, 79307-9 #### [facility] ([id number]) [address], [address] [place] [address] Eosinophils (Bld) [#/Vol] 0.0 10*3/uL Normal 0.0-0.4 [facility] Comment on above: Performed By: #### Jeremiah JULES, CMP, 2532-0, 3084-1, 25552-7 #### [facility] ([id number]) [address], [address] [place] [address] Eosinophils/100 WBC (Bld) 0.0 % Normal [facility] Comment on above: Performed By: #### C BC, CMP, 2532-0, 3084-1, 00327-6 #### [facility] ([id number]) [address], [address] [place] [address] Erythrocyte distribution width (RBC) [Ratio] 15.4 % High 11.5-15.0 [facility] Comment on above: Performed By: #### C BC, CMP, 2532-0, 3084-1, 77974-4 #### [facility] ([id number]) [address] [address] [place] [address] Hematocrit (Bld) [Volume fraction] 28.1 % Low 35-47 [facility] Comment on above: Performed By: #### C BC, CMP, 2532-0, 3084-1, 46348-4 #### [facility] ([id number]) [address] [address] [place] [address] Hemoglobin (Bld) [Mass/Vol] 9.3 g/dL Low 11.7-15.5 [facility] Comment on above: Performed By: #### C DHARA, CMP, 2532-0, 4-1, 99387-3 #### [facility] ([id number]) [address] [address] [place] [address] Lymphocytes (Bld) [#/Vol] 1.6 10*3/uL Normal 1.0-3.5 [facility] Comment on above: Performed By: #### C DHARA, CMP, 2532-0, 4-1, 25739-4 #### [facility] ([id number]) [address] [address] [place] [address] Lymphocytes/100 WBC (Bld) 10.8 % Normal [facility] Comment on above: Performed By: #### C BC, CMP, 2532-0, 3084-1, 88829-2 #### [facility] ([id number]) [address], [facility] [address] [place] [address] MCH (RBC) [Entitic mass] 26.7 pg Low 27-34 [facility] Comment on above: Performed By: #### C BC, CMP, 2532-0, 3084-1, 49197-7 #### [facility] ([id number]) [address], [address] [place] [address] MCHC (RBC) [Mass/Vol] 33.0 g/dL Normal 32-36 [facility] Comment on above: Performed By: #### C BC, CMP, 2532-0, 3084-1, 51223-8 #### [facility] ([id number]) [address], [facility] [address] [place] [address] MCV (RBC) [Entitic vol] 81 fL Normal 80-100 [facility] Comment on above: Performed By: #### C BC, CMP, 2532-0, 3084-1, 98696-5 #### [facility] ([id number]) [address], [address] [address] Monocytes (Bld) [#/Vol] 0.1 10*3/uL Normal 0-0.9 [facility] Comment on above: Performed By: #### Jeremiah BC, CMP, 2532-0, 3084-1, 80920-2 #### [facility] ([id number]) [address] [address] Monocytes/100 WBC (Bld) 0.9 % Normal [facility] Comment on above: Performed By: #### Jeremiah BC, CMP, 2532-0, 3084-1, 28796-6 #### [facility] ([id number]) [address], [address] [address] Neutrophils/100 WBC (Bld) 88.2 % Normal [facility] Comment on above: Performed By: #### C BC, CMP, 2532-0, 3084-1, 25645-6 #### [facility] ([id number]) [address], [facility] [address] [place] [address] Platelet mean volume (Bld) [Entitic vol] 6.9 fL Low 7-12 [facility] Comment on above: Performed By: #### C BC, CMP, 2532-0, 3084-1, 73601-0 #### [facility] ([id number]) [address], [address] [place] [address] Platelets (Bld) [#/Vol] 657 10*3/uL High 150-450 [facility] Comment on above: Performed By: #### C BC, CMP, 2532-0, 3084-1, 45490-6 #### [facility] ([id number]) [address] [place] [address] RBC COUNT 3.47 X10E12/L Low 3.80-5.20 [facility] Comment on above: Performed By: #### C BC, CMP, 2532-0, 3084-1, 36348-5 #### [facility] ([id number]) [address] [address] [place] [address] WBC (Bld) [#/Vol] 14.6 10*3/uL High 4.0-11.0 [facility] Comment on above: Performed By: #### C BC, CMP, 2532-0, 3084-1, 91453-7 #### [facility] ([id number]) [address], [address] [place] [address] COMPREHENSIVE METABOLIC PANE Ez 09-10-2023 Albumin [Mass/Vol] 3.7 g/dL Normal 3.2-5.3 [facility] Comment on above: Performed By: #### C BC, CMP, 2532-0, 3084-1, 65276-8 #### [facility] ([id number]) [address], [address] [place] [address] ALP [Catalytic activity/Vol] 98 U/L Normal 39-130 [facility] Comment on above: Performed By: #### C BC, CMP, 2532-0, 3084-1, 72088-5 #### [facility] ([id number]) [address], [address] [place] [address] ALT [Catalytic activity/Vol] 11 U/L Normal 0-31 [facility] Comment on above: Performed By: #### C BC, CMP, 2532-0, 3084-1, 30741-7 #### [facility] ([id number]) [address], [address] [place] [address] Anion gap [Moles/Vol] 13 mmol/L Normal 5-15 [facility] Comment on above: Performed By: #### C BC, CMP, 2532-0, 3084-1, 97294-3 #### [facility] ([id number]) [address], [address] [place] [address] AST [Catalytic activity/Vol] 9 U/L Normal 0-41 [facility] Comment on above: Performed By: #### Jeremiah BC, CMP, 2532-0, 3084-1, 86515-9 #### [facility] ([id number]) [address], [address] [place] [address] Bilirubin [Mass/Vol] 0.3 mg/dL Normal 0.3-1.2 [facility] Comment on above: Performed By: #### C BC, CMP, 2532-0, 3084-1, 33039-9 #### [facility] ([id number]) [address], [address] [place] [address] Calcium [Mass/Vol] 8.9 mg/dL Normal 8.5-10.5 [facility] Comment on above: Performed By: #### C BC, CMP, 2532-0, 3084-1, 23624-8 #### [facility] ([id number]) [address], [address] [place] [address] Chloride [Moles/Vol] 104 mmol/L Normal 98-109 [facility] Comment on above: Performed By: #### C BC, CMP, 2532-0, 3084-1, 48621-3 #### [facility] ([id number]) [address], [address] [place] [address] CO2 [Moles/Vol] 20 mmol/L Low 22-32 [facility] Comment on above: Performed By: #### C CARLOTA JULES, 2532-0, 3084-1, 98028-6 #### [facility] ([id number]) [address], [address] [place] [address] Creatinine [Mass/Vol] 0.75 mg/dL Normal 0.40-1.00 [facility] Comment on above: Result Comment: METH OD TRACEABLE TO IDMS STANDARD Performed By: #### Jeremiah JULES CMP, 2532-0, 4-1, 71819-4 #### [facility] ([id number]) [address], [address] [place] [address] eGFR (CKD-EPI) NON-RACE DEPENDENT >90 Normal >59 [facility] Comment on above: Result Comment: Reported eGFR is based on the CKD-EPI 2020 equation that does not use a race coefficient. Performed By: #### Jeremiah JLUES CMP, 2532-0, 4-1, 01479-8 #### [facility] ([id number]) [address], [address] [place] [address] Glucose [Mass/Vol] 179 mg/dL High 65-99 [facility] Comment on above: Performed By: #### Jeremiah JULES CMP, 2532-0, 4-1, 45042-7 #### [facility] ([id number]) [address], [address] [place] [address] Potassium [Moles/Vol] 4.1 mmol/L Normal 3.5-5.0 [facility] Comment on above: Performed By: #### Jeremiah JULES CMP, 2532-0, 4-1, 59185-1 #### [facility] ([id number]) [address], [address] [place] [address] Protein [Mass/Vol] 7.1 g/dL Normal 6.0-8.0 [facility] Comment on above: Performed By: #### C BC, CMP, 2532-0, 3084-1, 93157-6 #### [facility] ([id number]) [address], [address] [place] [address] Sodium [Moles/Vol] 137 mmol/L Normal 134-146 [facility] Comment on above: Performed By: #### C BC, CMP, 2532-0, 3084-1, 82144-1 #### [facility] ([id number]) [address], [address] [place] [address] Urea nitrogen [Mass/Vol] 13 mg/dL Normal 5-23 [facility] Comment on above: Performed By: #### Jeremiah BC, CMP, 2532-0, 3084-1, 22600-4 #### [facility] ([id number]) [address], [address] [place] [address] CBC AND AUTO DIFFon 09-09-19 24 ABSOLUTE BASOPHIL 0.1 X10E9/L Normal 0.0-0.2 [facility] Comment on above: Performed By: #### Jeremiah JULES, CMP, 2532-0, 3084-1, 15804-8 #### [facility] ([id number]) [address], [address] [place] [address] ABSOLUTE NEUTROPHIL 7.1 X10E9/L High 1.5-6.6 [facility] Comment on above: Performed By: #### C BC, CMP, 2532-0, 3084-1, 24755-7 #### [facility] ([id number]) [address], [address] [place] [address] Basophils/100 WBC (Bld) 1.0 % Normal [facility] Comment on above: Performed By: #### C BC, CMP, 2532-0, 3084-1, 36482-8 #### [facility] ([id number]) [address] [address] [place] [address] Eosinophils (Bld) [#/Vol] 0.2 10*3/uL Normal 0.0-0.4 [facility] Comment on above: Performed By: #### C BC, CMP, 2532-0, 4-1, 20964-2 #### [facility] ([id number]) [address], [facility] [address] [place] [address] Eosinophils/100 WBC (Bld) 1.4 % Normal [facility] Comment on above: Performed By: #### C BC, CMP, 2532-0, 4-1, 10885-6 #### [facility] ([id number]) [address] [address] [place] [address] Erythrocyte distribution width (RBC) [Ratio] 15.6 % High 11.5-15.0 [facility] Comment on above: Performed By: #### C BC, CMP, 2-0, 4-1, 78103-9 #### [facility] ([id number]) [address] [address] [place] [address] Hematocrit (Bld) [Volume fraction] 25.1 % Low 35-47 [facility] Comment on above: Performed By: #### C BC, CMP, 2532-0, 4-1, 06437-9 #### [facility] ([id number]) [address] [address] [place] [address] Hemoglobin (Bld) [Mass/Vol] 8.2 g/dL Low 11.7-15.5 [facility] Comment on above: Performed By: #### C BC, CMP, 2532-0, 3084-1, 82487-6 #### [facility] ([id number]) [address] [place] [address] Lymphocytes (Bld) [#/Vol] 2.8 10*3/uL Normal 1.0-3.5 [facility] Comment on above: Performed By: #### C BC, CMP, 2532-0, 4-1, 25903-1 #### [facility] ([id number]) [address] [address] Lymphocytes/100 WBC (Bld) 26.0 % Normal [facility] Comment on above: Performed By: #### Jeremiah JULES, CMP, 2532-0, 4-1, 39780-9 #### [facility] ([id number]) [address] [address] MCH (RBC) [Entitic mass] 26.7 pg Low 27-34 [facility] Comment on above: Performed By: #### Jeremiah JULES, CMP, 2-0, 4-1, 02159-4 #### [facility] ([id number]) [address] [address] MCHC (RBC) [Mass/Vol] 32.6 g/dL Normal 32-36 [facility] Comment on above: Performed By: #### Jeremiah BC, CMP, 2532-0, 3083-1, 33148-6 #### [facility] ([id number]) [address] [address] MCV (RBC) [Entitic vol] 82 fL Normal 80-100 [facility] Comment on above: Performed By: #### Jeremiah BC, CMP, 2532-0, 4-1, 66818-3 #### [facility] ([id number]) [address] [address] Monocytes (Bld) [#/Vol] 0.7 10*3/uL Normal 0-0.9 [facility] Comment on above: Performed By: #### Jeremiah BC, CMP, 2532-0, 3084-1, 57961-0 #### [facility] ([id number]) [address] [place] [address] Monocytes/100 WBC (Bld) 6.5 % Normal [facility] Comment on above: Performed By: #### C BC, CMP, 2532-0, 3084-1, 46570-1 #### [facility] ([id number]) [address] [place] [address] Neutrophils/100 WBC (Bld) 65.1 % Normal [facility] Comment on above: Performed By: #### C BC, CMP, 2532-0, 3084-1, 87483-1 #### [facility] ([id number]) [address] [place] [address] Platelet mean volume (Bld) [Entitic vol] 6.9 fL Low 7-12 [facility] Comment on above: Performed By: #### Jeremiah BC, CMP, 2532-0, 3084-1, 57313-1 #### [facility] ([id number]) [address] [place] [address] Platelets (Bld) [#/Vol] 464 10*3/uL High 150-450 [facility] Comment on above: Performed By: #### Jeremiah BC, CMP, 2532-0, 3084-1, 70689-5 #### [facility] ([id number]) [address] [place] [address] RBC COUNT 3.07 X10E12/L Low 3.80-5.20 [facility] Comment on above: Performed By: #### C BC, CMP, 2532-0, 3084-1, 17477-3 #### [facility] ([id number]) [address], [address] [place] [address] WBC (Bld) [#/Vol] 10.8 10*3/uL Normal 4.0-11.0 [facility] Comment on above: Performed By: #### C BC, CMP, 2532-0, 3084-1, 61857-0 #### [facility] ([id number]) [address], [address] [place] [address] COMPREHENSIVE METABOLIC PANE Ez 09-09-2023 Albumin [Mass/Vol] 3.1 g/dL Low 3.2-5.3 [facility] Comment on above: Performed By: #### C BC, CMP, 2532-0, 3084-1, 26022-1 #### [facility] ([id number]) [address] [place] [address] ALP [Catalytic activity/Vol] 91 U/L Normal 39-130 [facility] Comment on above: Performed By: #### C BC, CMP, 2532-0, 3084-1, 67084-3 #### [facility] ([id number]) [address] [place] [address] ALT [Catalytic activity/Vol] 8 U/L Normal 0-31 [facility] Comment on above: Performed By: #### C BC, CMP, 2532-0, 3084-1, 92493-7 #### [facility] ([id number]) [address], [address] [place] [address] Anion gap [Moles/Vol] 9 mmol/L Normal 5-15 [facility] Comment on above: Performed By: #### C BC, CMP, 2532-0, 3084-1, 38599-8 #### [facility] ([id number]) [address], [address] [place] [address] AST [Catalytic activity/Vol] 12 U/L Normal 0-41 [facility] Comment on above: Performed By: #### C BC, CMP, 2532-0, 3084-1, 20396-6 #### [facility] ([id number]) [address] [place] [address] Bilirubin [Mass/Vol] 0.2 mg/dL Low 0.3-1.2 [facility] Comment on above: Performed By: #### C BC, CMP, 2532-0, 3084-1, 39911-9 #### [facility] ([id number]) [address] [place] [address] Calcium [Mass/Vol] 8.2 mg/dL Low 8.5-10.5 [facility] Comment on above: Performed By: #### Jeremiah BC, CMP, 2532-0, 3084-1, 91660-1 #### [facility] ([id number]) [address], [address] [place] [address] Chloride [Moles/Vol] 108 mmol/L Normal 98-109 [facility] Comment on above: Performed By: #### Jeremiah JULES, CMP, 2532-0, 3084-1, 36356-6 #### [facility] ([id number]) [address] [address] [place] [address] CO2 [Moles/Vol] 23 mmol/L Normal 22-32 [facility] Comment on above: Performed By: #### Jeremiah JULES, CMP, 2532-0, 3084-1, 71232-9 #### [facility] ([id number]) [address], [address] [place] [address] Creatinine [Mass/Vol] 0.71 mg/dL Normal 0.40-1.00 [facility] Comment on above: Result Comment: METH OD TRACEABLE TO IDMS STANDARD Performed By: #### C BC, CMP, 2532-0, 3084-1, 82707-6 #### [facility] ([id number]) [address], [address] [place] [address] eGFR (CKD-EPI) NON-RACE DEPENDENT >90 Normal >59 [facility] Comment on above: Result Comment: Reported eGFR is based on the CKD-EPI 2020 equation that does not use a race coefficient. Performed By: #### C [place] JULES, 2532-0, 3084-1, 89832-0 #### [facility] ([id number]) [address], [address] [place] [address] Glucose [Mass/Vol] 80 mg/dL Normal 65-99 [facility] Comment on above: Performed By: #### C DAHRA, CMP, 2532-0, 3084-1, 97585-9 #### [facility] ([id number]) [address], [address] [place] [address] Potassium [Moles/Vol] 4.5 mmol/L Normal 3.5-5.0 [facility] Comment on above: Performed By: #### Jeremiah JULES CMP, 2532-0, 3084-1, 38924-7 #### [facility] ([id number]) [address], [address] [place] [address] Protein [Mass/Vol] 5.9 g/dL Low 6.0-8.0 [facility] Comment on above: Performed By: #### Jeremiah JULES CMP, 2532-0, 3084-1, 63510-3 #### [facility] ([id number]) [address], [address] [place] [address] Sodium [Moles/Vol] 140 mmol/L Normal 134-146 [facility] Comment on above: Performed By: #### Jeremiah JULES, CMP, 2532-0, 3084-1, 94125-5 #### [facility] ([id number]) [address], [address] [place] [address] Urea nitrogen [Mass/Vol] 17 mg/dL Normal 5-23 [facility] Comment on above: Performed By: #### Jeremiah BC, CMP, 2532-0, 3084-1, 61291-2 #### [facility] ([id number]) [address], [address] [place] [address] CBC AND AUTO DIFFon 09-08-19 24 ABSOLUTE BASOPHIL 0.1 X10E9/L Normal 0.0-0.2 [facility] Comment on above: Performed By: #### C BC, CMP, 2532-0, 3084-1, 28200-8 #### [facility] ([id number]) [address], [address] [place] [address] ABSOLUTE NEUTROPHIL 8.4 X10E9/L High 1.5-6.6 [facility] Comment on above: Performed By: #### C BC, CMP, 2532-0, 4-1, 08336-4 #### [facility] ([id number]) [address], [address] [place] [address] Basophils/100 WBC (Bld) 0.6 % Normal [facility] Comment on above: Performed By: #### Jeremiah BC, CMP, 2-0, 4-1, 18244-6 #### [facility] ([id number]) [address], [address] [place] [address] Eosinophils (Bld) [#/Vol] 0.2 10*3/uL Normal 0.0-0.4 [facility] Comment on above: Performed By: #### C BC, CMP, 2532-0, 4-1, 64998-7 #### [facility] ([id number]) [address], [address] [place] [address] Eosinophils/100 WBC (Bld) 1.3 % Normal [facility] Comment on above: Performed By: #### C BC, CMP, 2532-0, 3084-1, 28976-7 #### [facility] ([id number]) [address], [address] [place] [address] Erythrocyte distribution width (RBC) [Ratio] 15.3 % High 11.5-15.0 [facility] Comment on above: Performed By: #### C BC, CMP, 2532-0, 3084-1, 71256-2 #### [facility] ([id number]) [address] [address] [place] [address] Hematocrit (Bld) [Volume fraction] 25.5 % Low 35-47 [facility] Comment on above: Performed By: #### C BC, CMP, 2532-0, 4-1, 10683-3 #### [facility] ([id number]) [address], [facility] [address] [place] [address] Hemoglobin (Bld) [Mass/Vol] 8.4 g/dL Low 11.7-15.5 [facility] Comment on above: Performed By: #### C BC, CMP, 2-0, 4-1, 91620-8 #### [facility] ([id number]) [address], [facility] [address] [place] [address] Lymphocytes (Bld) [#/Vol] 3.0 10*3/uL Normal 1.0-3.5 [facility] Comment on above: Performed By: #### C BC, CMP, 2532-0, 4-1, 75533-3 #### [facility] ([id number]) [address], [address] [address] Lymphocytes/100 WBC (Bld) 24.2 % Normal [facility] Comment on above: Performed By: #### C BC, CMP, 2532-0, 3084-1, 38613-2 #### [facility] ([id number]) [address], [facility] [address] [place] [address] MCH (RBC) [Entitic mass] 26.6 pg Low 27-34 [facility] Comment on above: Performed By: #### C BC, CMP, 2532-0, 4-1, 04914-6 #### [facility] ([id number]) [address], [address] [place] [address] MCHC (RBC) [Mass/Vol] 33.1 g/dL Normal 32-36 [facility] Comment on above: Performed By: #### C BC, CMP, 2532-0, 3084-1, 96664-4 #### [facility] ([id number]) [address], [address] [place] [address] MCV (RBC) [Entitic vol] 80 fL Normal 80-100 [facility] Comment on above: Performed By: #### Jeremiah BC, CMP, 2532-0, 4-1, 68230-9 #### [facility] ([id number]) [address], [address] [place] [address] Monocytes (Bld) [#/Vol] 0.7 10*3/uL Normal 0-0.9 [facility] Comment on above: Performed By: #### Jeremiah BC, CMP, 2532-0, 4-1, 69052-5 #### [facility] ([id number]) [address], [address] [place] [address] Monocytes/100 WBC (Bld) 6.0 % Normal [facility] Comment on above: Performed By: #### Jeremiah BC, CMP, 2532-0, 4-1, 76891-9 #### [facility] ([id number]) [address], [address] [place] [address] Neutrophils/100 WBC (Bld) 67.9 % Normal [facility] Comment on above: Performed By: #### C BC, CMP, 2532-0, 4-1, 06017-7 #### [facility] ([id number]) [address], [address] [place] [address] Platelet mean volume (Bld) [Entitic vol] 6.4 fL Low 7-12 [facility] Comment on above: Performed By: #### C BC, CMP, 2532-0, 3084-1, 77405-4 #### [facility] ([id number]) [address], [address] [place] [address] Platelets (Bld) [#/Vol] 542 10*3/uL High 150-450 [facility] Comment on above: Performed By: #### C BC, CMP, 2532-0, 3084-1, 75995-8 #### [facility] ([id number]) [address], [address] [place] [address] RBC COUNT 3.17 X10E12/L Low 3.80-5.20 [facility] Comment on above: Performed By: #### Jeremiah BC, CMP, 2532-0, 3084-1, 33714-7 #### [facility] ([id number]) [address], [address] [place] [address] WBC (Bld) [#/Vol] 12.4 10*3/uL High 4.0-11.0 [facility] Comment on above: Performed By: #### C BC, CMP, 2532-0, 3084-1, 82580-8 #### [facility] ([id number]) [address], [address] [place] [address] COMPREHENSIVE METABOLIC PANE Ez 09-08-2023 Albumin [Mass/Vol] 3.3 g/dL Normal 3.2-5.3 [facility] Comment on above: Performed By: #### C BC, CMP, 2532-0, 3084-1, 94739-5 #### [facility] ([id number]) [address], [address] [place] [address] ALP [Catalytic activity/Vol] 94 U/L Normal 39-130 [facility] Comment on above: Performed By: #### C BC, CMP, 2532-0, 3084-1, 10074-2 #### [facility] ([id number]) [address], [address] [place] [address] ALT [Catalytic activity/Vol] 11 U/L Normal 0-31 [facility] Comment on above: Performed By: #### C BC, CMP, 2532-0, 3084-1, 34678-3 #### [facility] ([id number]) [address], [address] [place] [address] Anion gap [Moles/Vol] 10 mmol/L Normal 5-15 [facility] Comment on above: Performed By: #### Jeremiah BC, CMP, 2532-0, 3084-1, 49694-6 #### [facility] ([id number]) [address], [address] [place] [address] AST [Catalytic activity/Vol] 10 U/L Normal 0-41 [facility] Comment on above: Performed By: #### Jeremiah BC, CMP, 2532-0, 3084-1, 45112-3 #### [facility] ([id number]) [address], [address] [place] [address] Bilirubin [Mass/Vol] 0.2 mg/dL Low 0.3-1.2 [facility] Comment on above: Performed By: #### Jeremiah BC, CMP, 2532-0, 3084-1, 22222-5 #### [facility] ([id number]) [address], [address] [place] [address] Calcium [Mass/Vol] 8.3 mg/dL Low 8.5-10.5 [facility] Comment on above: Performed By: #### C BC, CMP, 2532-0, 3084-1, 20837-4 #### [facility] ([id number]) [address], [address] [place] [address] Chloride [Moles/Vol] 107 mmol/L Normal 98-109 [facility] Comment on above: Performed By: #### C DHARA, CMP, 2532-0, 3084-1, 24815-6 #### [facility] ([id number]) [address], [address] [place] [address] CO2 [Moles/Vol] 25 mmol/L Normal 22-32 [facility] Comment on above: Performed By: #### C DHARA, CMP, 2532-0, 3084-1, 58135-5 #### [facility] ([id number]) [address], [address] [place] [address] Creatinine [Mass/Vol] 0.88 mg/dL Normal 0.40-1.00 [facility] Comment on above: Result Comment: METH OD TRACEABLE TO IDMS STANDARD Performed By: #### Jeremiah JULES CMP, 2532-0, 3084-1, 46133-9 #### [facility] ([id number]) [address], [address] [place] [address] eGFR (CKD-EPI) NON-RACE DEPENDENT >90 Normal >59 [facility] Comment on above: Result Comment: Reported eGFR is based on the CKD-EPI 2020 equation that does not use a race coefficient. Performed By: #### C DHARA, [place], 2532-0, 3084-1, 16965-9 #### [facility] ([id number]) [address], [address] [place] [address] Glucose [Mass/Vol] 93 mg/dL Normal 65-99 [facility] Comment on above: Performed By: #### Jeremiah JULES, CMP, 2532-0, 3084-1, 80247-5 #### [facility] ([id number]) [address], [address] [place] [address] Potassium [Moles/Vol] 4.3 mmol/L Normal 3.5-5.0 [facility] Comment on above: Performed By: #### Jeremiah BC, CMP, 2532-0, 3084-1, 83567-6 #### [facility] ([id number]) [address], [address] [place] [address] Protein [Mass/Vol] 6.2 g/dL Normal 6.0-8.0 [facility] Comment on above: Performed By: #### C BC, CMP, 2532-0, 3084-1, 66669-0 #### [facility] ([id number]) [address], [address] [place] [address] Sodium [Moles/Vol] 142 mmol/L Normal 134-146 [facility] Comment on above: Performed By: #### C BC, CMP, 2532-0, 3084-1, 23419-4 #### [facility] ([id number]) [address] [address] [place] [address] Urea nitrogen [Mass/Vol] 16 mg/dL Normal 5-23 [facility] Comment on above: Performed By: #### C BC, CMP, 2532-0, 3084-1, 55869-0 #### [facility] ([id number]) [address] [address] Natriuretic peptide B [Mass/ Vol]on 09-08-2023 Natriuretic peptide B (Bld) [Mass/Vol] 95 pg/mL Normal <100.0 [facility] Comment on above: Performed By: #### C BC, CMP, 2532-0, 3084-1, 89402-7 #### [facility] ([id number]) [address] [address] CBC AND AUTO DIFFon 09-06-19 24 ABSOLUTE BASOPHIL 0.1 X10E9/L Normal 0.0-0.2 [facility] Comment on above: Performed By: #### C BC, CMP, 2532-0, 3084-1, 92086-5 #### [facility] ([id number]) [address] [place] [address] ABSOLUTE NEUTROPHIL 8.9 X10E9/L High 1.5-6.6 [facility] Comment on above: Performed By: #### C DHARA CMP, 2532-0, 4-1, 71216-4 #### [facility] ([id number]) [address], [address] [place] [address] Basophils/100 WBC (Bld) 0.5 % Normal [facility] Comment on above: Performed By: #### C DHARA, CMP, 2532-0, 4-1, 32930-7 #### [facility] ([id number]) [address], [address] [place] [address] Eosinophils (Bld) [#/Vol] 0.2 10*3/uL Normal 0.0-0.4 [facility] Comment on above: Performed By: #### Jeremiah JULES, CMP, 2-0, 4-1, 14848-7 #### [facility] ([id number]) [address], [address] [place] [address] Eosinophils/100 WBC (Bld) 1.6 % Normal [facility] Comment on above: Performed By: #### Jeremiah JULES CMP, 2-0, 3083-1, 43444-9 #### [facility] ([id number]) [address], [address] [place] [address] Erythrocyte distribution width (RBC) [Ratio] 15.0 % Normal 11.5-15.0 [facility] Comment on above: Performed By: #### Jeremiah JULES, CMP, 2532-0, 4-1, 13028-0 #### [facility] ([id number]) [address], [address] [place] [address] Hematocrit (Bld) [Volume fraction] 30.4 % Low 35-47 [facility] Comment on above: Performed By: #### C BC, CMP, 2532-0, 3084-1, 35755-0 #### [facility] ([id number]) [address], [address] [place] [address] Hemoglobin (Bld) [Mass/Vol] 9.8 g/dL Low 11.7-15.5 [facility] Comment on above: Performed By: #### C BC, CMP, 2532-0, 3084-1, 01415-3 #### [facility] ([id number]) [address], [address] [place] [address] Lymphocytes (Bld) [#/Vol] 4.4 10*3/uL High 1.0-3.5 [facility] Comment on above: Performed By: #### C BC, CMP, 2532-0, 4-1, 12798-3 #### [facility] ([id number]) [address] [address] Lymphocytes/100 WBC (Bld) 29.9 % Normal [facility] Comment on above: Performed By: #### Jeremiah JULES, CMP, 2532-0, 4-1, 17721-7 #### [facility] ([id number]) [address], [address] [place] [address] MCH (RBC) [Entitic mass] 26.6 pg Low 27-34 [facility] Comment on above: Performed By: #### C BC, CMP, 2532-0, 4-1, 20712-8 #### [facility] ([id number]) [address], [address] [place] [address] MCHC (RBC) [Mass/Vol] 32.3 g/dL Normal 32-36 [facility] Comment on above: Performed By: #### C BC, CMP, 2532-0, 3084-1, 89788-3 #### [facility] ([id number]) [address], [address] [place] [address] MCV (RBC) [Entitic vol] 82 fL Normal 80-100 [facility] Comment on above: Performed By: #### C BC, CMP, 2532-0, 3084-1, 57378-4 #### [facility] ([id number]) [address], [address] [place] [address] Monocytes (Bld) [#/Vol] 1.0 10*3/uL High 0-0.9 [facility] Comment on above: Performed By: #### C BC, CMP, 2532-0, 3084-1, 19319-7 #### [facility] ([id number]) [address] [place] [address] Monocytes/100 WBC (Bld) 6.7 % Normal [facility] Comment on above: Performed By: #### C BC, CMP, 2532-0, 3084-1, 33295-4 #### [facility] ([id number]) [address], [address] [place] [address] Neutrophils/100 WBC (Bld) 61.3 % Normal [facility] Comment on above: Performed By: #### C BC, CMP, 2532-0, 4-1, 69925-0 #### [facility] ([id number]) [address], [address] [place] [address] Platelet mean volume (Bld) [Entitic vol] 7.1 fL Normal 7-12 [facility] Comment on above: Performed By: #### C BC, CMP, 2532-0, 3084-1, 36812-0 #### [facility] ([id number]) [address], [address] [place] [address] Platelets (Bld) [#/Vol] 663 10*3/uL High 150-450 [facility] Comment on above: Performed By: #### C BC, CMP, 2532-0, 3084-1, 21585-2 #### [facility] ([id number]) [address] [place] [address] RBC COUNT 3.69 X10E12/L Low 3.80-5.20 [facility] Comment on above: Performed By: #### C BC, CMP, 2532-0, 3084-1, 72138-1 #### [facility] ([id number]) [address], [address] [place] [address] WBC (Bld) [#/Vol] 14.6 10*3/uL High 4.0-11.0 [facility] Comment on above: Performed By: #### C BC, CMP, 2532-0, 3084-1, 93496-4 #### [facility] ([id number]) [address] [place] [address] COMPREHENSIVE METABOLIC PANE Ez 09-06-2023 Albumin [Mass/Vol] 3.5 g/dL Normal 3.2-5.3 [facility] Comment on above: Performed By: #### C BC, CMP, 2532-0, 3084-1, 01826-0 #### [facility] ([id number]) [address] [place] [address] ALP [Catalytic activity/Vol] 110 U/L Normal 39-130 [facility] Comment on above: Performed By: #### C BC, CMP, 2532-0, 3084-1, 38432-9 #### [facility] ([id number]) [address] [place] [address] ALT [Catalytic activity/Vol] 12 U/L Normal 0-31 [facility] Comment on above: Performed By: #### C BC, CMP, 2532-0, 3084-1, 68437-4 #### [facility] ([id number]) [address] [place] [address] Anion gap [Moles/Vol] 9 mmol/L Normal 5-15 [facility] Comment on above: Performed By: #### C BC, CMP, 2532-0, 3084-1, 75404-6 #### [facility] ([id number]) [address], [address] [place] [address] AST [Catalytic activity/Vol] 11 U/L Normal 0-41 [facility] Comment on above: Performed By: #### C BC, CMP, 2532-0, 3084-1, 45891-1 #### [facility] ([id number]) [address] [place] [address] Bilirubin [Mass/Vol] 0.3 mg/dL Normal 0.3-1.2 [facility] Comment on above: Performed By: #### Jeremiah BC, CMP, 2532-0, 3084-1, 40010-1 #### [facility] ([id number]) [address] [place] [address] Calcium [Mass/Vol] 9.2 mg/dL Normal 8.5-10.5 [facility] Comment on above: Performed By: #### Jeremiah BC, CMP, 2532-0, 3084-1, 33315-5 #### [facility] ([id number]) [address] [place] [address] Chloride [Moles/Vol] 100 mmol/L Normal 98-109 [facility] Comment on above: Performed By: #### C BC, CMP, 2532-0, 3084-1, 91271-0 #### [facility] ([id number]) [address], [address] [place] [address] CO2 [Moles/Vol] 28 mmol/L Normal 22-32 [facility] Comment on above: Performed By: #### C BC, CMP, 2532-0, 3084-1, 90176-6 #### [facility] ([id number]) [address] [place] [address] Creatinine [Mass/Vol] 0.81 mg/dL Normal 0.40-1.00 [facility] Comment on above: Result Comment: METH OD TRACEABLE TO IDMS STANDARD Performed By: #### Jeremiah JULES CMP, 2532-0, 3084-1, 26726-2 #### [facility] ([id number]) [address] [place] [address] eGFR (CKD-EPI) NON-RACE DEPENDENT >90 Normal >59 [facility] Comment on above: Result Comment: Reported eGFR is based on the CKD-EPI 2020 equation that does not use a race coefficient. Performed By: #### C [place] JULES, 2532-0, 3084-1, 30842-4 #### [facility] ([id number]) [address] [place] [address] Glucose [Mass/Vol] 92 mg/dL Normal 65-99 [facility] Comment on above: Performed By: #### Jeremiah JULES CMP, 2532-0, 4-1, 83016-8 #### [facility] ([id number]) [address] [address] [place] [address] Potassium [Moles/Vol] 3.7 mmol/L Normal 3.5-5.0 [facility] Comment on above: Performed By: #### Jeremiah JULES CMP, 2532-0, 3084-1, 28961-1 #### [facility] ([id number]) [address] [address] [place] [address] Protein [Mass/Vol] 6.8 g/dL Normal 6.0-8.0 [facility] Comment on above: Performed By: #### Jeremiah JULES CMP, 2532-0, 3084-1, 13730-5 #### [facility] ([id number]) [address] [place] [address] Sodium [Moles/Vol] 137 mmol/L Normal 134-146 [facility] Comment on above: Performed By: #### C DHARA, CMP, 2532-0, 3084-1, 26787-7 #### [facility] ([id number]) [address] [place] [address] Urea nitrogen [Mass/Vol] 17 mg/dL Normal 5-23 [facility] Comment on above: Performed By: #### C BC, CMP, 2532-0, 3084-1, 83525-3 #### [facility] ([id number]) [address], [facility] [address] [place] [address] COMPLETE BLOOD COUNTon 09-04 Erythrocyte distribution width (RBC) [Ratio] 14.8 % Normal 11.5-15.0 [facility] Comment on above: Performed By: #### Jeremiah JULES, CMP, 2-0, 4-1, 74320-9 #### [facility] ([id number]) [address] [place] [address] Hematocrit (Bld) [Volume fraction] 25.3 % Low 35-47 [facility] Comment on above: Performed By: #### C DHARA, CMP, 2532-0, 4-1, 81042-4 #### [facility] ([id number]) [address] [place] [address] Hemoglobin (Bld) [Mass/Vol] 8.2 g/dL Low 11.7-15.5 [facility] Comment on above: Performed By: #### C BC, CMP, 2532-0, 3084-1, 57605-3 #### [facility] ([id number]) [address] [address] [place] [address] MCH (RBC) [Entitic mass] 26.4 pg Low 27-34 [facility] Comment on above: Performed By: #### C BC, CMP, 2532-0, 3084-1, 02163-8 #### [facility] ([id number]) [address] [place] [address] MCHC (RBC) [Mass/Vol] 32.6 g/dL Normal 32-36 [facility] Comment on above: Performed By: #### C BC, CMP, 2532-0, 3084-1, 35934-5 #### [facility] ([id number]) [address] [place] [address] MCV (RBC) [Entitic vol] 81 fL Normal 80-100 [facility] Comment on above: Performed By: #### C BC, CMP, 2532-0, 4-1, 81283-9 #### [facility] ([id number]) [address] [place] [address] Platelet mean volume (Bld) [Entitic vol] 7.0 fL Normal 7-12 [facility] Comment on above: Performed By: #### Jeremiah BC, CMP, 2532-0, 3084-1, 21331-5 #### [facility] ([id number]) [address] [place] [address] Platelets (Bld) [#/Vol] 411 10*3/uL Normal 150-450 [facility] Comment on above: Performed By: #### Jeremiah BC, CMP, 2532-0, 4-1, 36674-1 #### [facility] ([id number]) [address] [place] [address] RBC COUNT 3.12 X10E12/L Low 3.80-5.20 [facility] Comment on above: Performed By: #### C BC, CMP, 2532-0, 3084-1, 63891-6 #### [facility] ([id number]) [address], [address] [place] [address] WBC (Bld) [#/Vol] 11.5 10*3/uL High 4.0-11.0 [facility] Comment on above: Performed By: #### C BC, CMP, 2532-0, 3084-1, 78949-3 #### [facility] ([id number]) [address], [address] [place] [address] COMPREHENSIVE METABOLIC PANE Ez 09-04-2023 Albumin [Mass/Vol] 3.1 g/dL Low 3.2-5.3 [facility] Comment on above: Performed By: #### C BC, CMP, 2532-0, 3084-1, 84729-6 #### [facility] ([id number]) [address], [address] [place] [address] ALP [Catalytic activity/Vol] 85 U/L Normal 39-130 [facility] Comment on above: Performed By: #### Jeremiah BC, CMP, 2532-0, 3084-1, 35535-0 #### [facility] ([id number]) [address], [address] [place] [address] ALT [Catalytic activity/Vol] 11 U/L Normal 0-31 [facility] Comment on above: Performed By: #### C BC, CMP, 2532-0, 3084-1, 67267-1 #### [facility] ([id number]) [address], [address] [place] [address] Anion gap [Moles/Vol] 11 mmol/L Normal 5-15 [facility] Comment on above: Performed By: #### C BC, CMP, 2532-0, 3084-1, 16351-4 #### [facility] ([id number]) [address], [address] [place] [address] AST [Catalytic activity/Vol] 12 U/L Normal 0-41 [facility] Comment on above: Performed By: #### C BC, CMP, 2532-0, 3084-1, 36737-4 #### [facility] ([id number]) [address], [address] [place] [address] Bilirubin [Mass/Vol] 0.2 mg/dL Low 0.3-1.2 [facility] Comment on above: Performed By: #### C BC, CMP, 2532-0, 3084-1, 88937-5 #### [facility] ([id number]) [address], [address] [place] [address] Calcium [Mass/Vol] 8.7 mg/dL Normal 8.5-10.5 [facility] Comment on above: Performed By: #### C BC, CMP, 2532-0, 3084-1, 86378-5 #### [facility] ([id number]) [address] [address] [place] [address] Chloride [Moles/Vol] 102 mmol/L Normal 98-109 [facility] Comment on above: Performed By: #### Jeremiah BC, CMP, 2532-0, 3084-1, 64742-4 #### [facility] ([id number]) [address] [address] [place] [address] CO2 [Moles/Vol] 25 mmol/L Normal 22-32 [facility] Comment on above: Performed By: #### Jeremiah BC, CMP, 2532-0, 4-1, 55647-3 #### [facility] ([id number]) [address] [address] [address] [place] [address] Creatinine [Mass/Vol] 0.70 mg/dL Normal 0.40-1.00 [facility] Comment on above: Result Comment: METH OD TRACEABLE TO IDMS STANDARD Performed By: #### C BC, CMP, 2532-0, 3084-1, 93407-5 #### [facility] ([id number]) [address], [address] [place] [address] eGFR (CKD-EPI) NON-RACE DEPENDENT >90 Normal >59 [facility] Comment on above: Result Comment: Reported eGFR is based on the CKD-EPI 2020 equation that does not use a race coefficient. Performed By: #### C CARLOTA JULES, 2532-0, 3084-1, 26078-4 #### [facility] ([id number]) [address], [address] [place] [address] Glucose [Mass/Vol] 100 mg/dL High 65-99 [facility] Comment on above: Performed By: #### Jeremiah JULES CMP, 2532-0, 3084-1, 24619-3 #### [facility] ([id number]) [address], [address] [place] [address] Potassium [Moles/Vol] 4.1 mmol/L Normal 3.5-5.0 [facility] Comment on above: Performed By: #### Jeremiah JULES CMP, 2532-0, 4-1, 13658-9 #### [facility] ([id number]) [address], [address] [place] [address] Protein [Mass/Vol] 5.8 g/dL Low 6.0-8.0 [facility] Comment on above: Performed By: #### Jeremiah JULES CMP, 2532-0, 4-1, 11949-6 #### [facility] ([id number]) [address], [address] [place] [address] Sodium [Moles/Vol] 138 mmol/L Normal 134-146 [facility] Comment on above: Performed By: #### Jeremiah JULES CMP, 2532-0, 3084-1, 27141-2 #### [facility] ([id number]) [address], [address] [place] [address] Urea nitrogen [Mass/Vol] 17 mg/dL Normal 5-23 [facility] Comment on above: Performed By: #### C BC CMP, 2532-0, 3084-1, 95991-2 #### [facility] ([id number]) [address] [place] [address] COMPLETE BLOOD COUNTon 09-03 Erythrocyte distribution width (RBC) [Ratio] 14.8 % Normal 11.5-15.0 [facility] Comment on above: Performed By: #### C CASTING MACHINE ADJUSTER #### [facility] ([id number]) [address] [place] [address] Hematocrit (Bld) [Volume fraction] 24.9 % Low 35-47 [facility] Comment on above: Performed By: #### C CASTING MACHINE ADJUSTER #### [facility] ([id number]) [address] [place] [address] Hemoglobin (Bld) [Mass/Vol] 8.0 g/dL Low 11.7-15.5 [facility] Comment on above: Performed By: #### C CASTING MACHINE ADJUSTER #### [facility] ([id number]) [address] [place] [address] MCH (RBC) [Entitic mass] 26.4 pg Low 27-34 [facility] Comment on above: Performed By: #### C CASTING MACHINE ADJUSTER #### [facility] ([id number]) [address] [place] [address] MCHC (RBC) [Mass/Vol] 32.3 g/dL Normal 32-36 [facility] Comment on above: Performed By: #### C CASTING MACHINE ADJUSTER #### [facility] ([id number]) [address] [place] [address] MCV (RBC) [Entitic vol] 82 fL Normal 80-100 [facility] Comment on above: Performed By: #### C CASTING MACHINE ADJUSTER #### [facility] ([id number]) [address] [place] [address] Platelet mean volume (Bld) [Entitic vol] 7.1 fL Normal 7-12 [facility] Comment on above: Performed By: #### C CASTING MACHINE ADJUSTER #### [facility] ([id number]) [address] [place] [address] Platelets (Bld) [#/Vol] 389 10*3/uL Normal 150-450 [facility] Comment on above: Performed By: #### C CASTING MACHINE ADJUSTER #### [facility] ([id number]) [address] [place] [address] RBC COUNT 3.05 X10E12/L Low 3.80-5.20 [facility] Comment on above: Performed By: #### C CASTING MACHINE ADJUSTER #### [facility] ([id number]) [address] [place] [address] WBC (Bld) [#/Vol] 13.0 10*3/uL High 4.0-11.0 [facility] Comment on above: Performed By: #### C CASTING MACHINE ADJUSTER #### [facility] ([id number]) [address] [place] [address] COMPREHENSIVE METABOLIC PANE Ez 09-03-2023 Albumin [Mass/Vol] 3.0 g/dL Low 3.2-5.3 [facility] Comment on above: Performed By: #### C CASTING MACHINE ADJUSTER #### [facility] ([id number]) [address] [place] [address] ALP [Catalytic activity/Vol] 79 U/L Normal 39-130 [facility] Comment on above: Performed By: #### C CASTING MACHINE ADJUSTER #### [facility] ([id number]) [address] [place] [address] ALT [Catalytic activity/Vol] 7 U/L Normal 0-31 [facility] Comment on above: Performed By: #### C CASTING MACHINE ADJUSTER #### [facility] ([id number]) [address] [place] [address] Anion gap [Moles/Vol] 7 mmol/L Normal 5-15 [facility] Comment on above: Performed By: #### C CASTING MACHINE ADJUSTER #### [facility] ([id number]) [address] [place] [address] AST [Catalytic activity/Vol] 10 U/L Normal 0-41 [facility] Comment on above: Performed By: #### C CASTING MACHINE ADJUSTER #### [facility] ([id number]) [address] [place] [address] Bilirubin [Mass/Vol] 0.2 mg/dL Low 0.3-1.2 [facility] Comment on above: Performed By: #### C CASTING MACHINE ADJUSTER #### [facility] ([id number]) [address] [place] [address] Calcium [Mass/Vol] 8.3 mg/dL Low 8.5-10.5 [facility] Comment on above: Performed By: #### C CASTING MACHINE ADJUSTER #### [facility] ([id number]) [address] [place] [address] Chloride [Moles/Vol] 105 mmol/L Normal 98-109 [facility] Comment on above: Performed By: #### C CASTING MACHINE ADJUSTER #### [facility] ([id number]) [address] [place] [address] CO2 [Moles/Vol] 24 mmol/L Normal 22-32 [facility] Comment on above: Performed By: #### C CASTING MACHINE ADJUSTER #### [facility] ([id number]) [address] [place] [address] Creatinine [Mass/Vol] 0.54 mg/dL Normal 0.40-1.00 [facility] Comment on above: Result Comment: METH OD TRACEABLE TO IDMS STANDARD Performed By: #### C CASTING MACHINE ADJUSTER #### [facility] ([id number]) [address] [place] [address] eGFR (CKD-EPI) NON-RACE DEPENDENT >90 Normal >59 [facility] Comment on above: Result Comment: Reported eGFR is based on the CKD-EPI 2020 equation that does not use a race coefficient. Performed By: #### C CASTING MACHINE ADJUSTER #### [facility] ([id number]) [address] [place] [address] Glucose [Mass/Vol] 99 mg/dL Normal 65-99 [facility] Comment on above: Performed By: #### C CASTING MACHINE ADJUSTER #### [facility] ([id number]) [address] [place] [address] Potassium [Moles/Vol] 4.3 mmol/L Normal 3.5-5.0 [facility] Comment on above: Performed By: #### C CASTING MACHINE ADJUSTER #### [facility] ([id number]) [address] [place] [address] Protein [Mass/Vol] 5.7 g/dL Low 6.0-8.0 [facility] Comment on above: Performed By: #### C CASTING MACHINE ADJUSTER #### [facility] ([id number]) [address] [place] [address] Sodium [Moles/Vol] 136 mmol/L Normal 134-146 [facility] Comment on above: Performed By: #### C CASTING MACHINE ADJUSTER #### [facility] ([id number]) [address] [place] [address] Urea nitrogen [Mass/Vol] 12 mg/dL Normal 5-23 [facility] Comment on above: Performed By: #### C CASTING MACHINE ADJUSTER #### [facility] ([id number]) [address] [place] [address] COMPLETE BLOOD COUNTon 09-02 Erythrocyte distribution width (RBC) [Ratio] 14.7 % Normal 11.5-15.0 [facility] Comment on above: Performed By: #### C CASTING MACHINE ADJUSTER #### [facility] ([id number]) [address] [place] [address] Hematocrit (Bld) [Volume fraction] 23.8 % Low 35-47 [facility] Comment on above: Performed By: #### C CASTING MACHINE ADJUSTER #### [facility] ([id number]) [address] [place] [address] Hemoglobin (Bld) [Mass/Vol] 7.7 g/dL Low 11.7-15.5 [facility] Comment on above: Performed By: #### C CASTING MACHINE ADJUSTER #### [facility] ([id number]) [address] [place] [address] MCH (RBC) [Entitic mass] 26.0 pg Low 27-34 [facility] Comment on above: Performed By: #### C CASTING MACHINE ADJUSTER #### [facility] ([id number]) [address] [place] [address] MCHC (RBC) [Mass/Vol] 32.3 g/dL Normal 32-36 [facility] Comment on above: Performed By: #### C CASTING MACHINE ADJUSTER #### [facility] ([id number]) [address] [place] [address] MCV (RBC) [Entitic vol] 81 fL Normal 80-100 [facility] Comment on above: Performed By: #### C CASTING MACHINE ADJUSTER #### [facility] ([id number]) [address] [place] [address] Platelet mean volume (Bld) [Entitic vol] 7.2 fL Normal 7-12 [facility] Comment on above: Performed By: #### C CASTING MACHINE ADJUSTER #### [facility] ([id number]) [address] [place] [address] Platelets (Bld) [#/Vol] 380 10*3/uL Normal 150-450 [facility] Comment on above: Performed By: #### C CASTING MACHINE ADJUSTER #### [facility] ([id number]) [address] [place] [address] RBC COUNT 2.96 X10E12/L Low 3.80-5.20 [facility] Comment on above: Performed By: #### C CASTING MACHINE ADJUSTER #### [facility] ([id number]) [address] [place] [address] WBC (Bld) [#/Vol] 12.4 10*3/uL High 4.0-11.0 [facility] Comment on above: Performed By: #### C CASTING MACHINE ADJUSTER #### [facility] ([id number]) [address] [place] [address] COMPREHENSIVE METABOLIC PANE Ez 09-02-2023 Albumin [Mass/Vol] 2.8 g/dL Low 3.2-5.3 [facility] Comment on above: Performed By: #### C CASTING MACHINE ADJUSTER #### [facility] ([id number]) [address] [place] [address] ALP [Catalytic activity/Vol] 81 U/L Normal 39-130 [facility] Comment on above: Performed By: #### C CASTING MACHINE ADJUSTER #### [facility] ([id number]) [address] [place] [address] ALT [Catalytic activity/Vol] 8 U/L Normal 0-31 [facility] Comment on above: Performed By: #### C CASTING MACHINE ADJUSTER #### [facility] ([id number]) [address] [place] [address] Anion gap [Moles/Vol] 6 mmol/L Normal 5-15 [facility] Comment on above: Performed By: #### C CASTING MACHINE ADJUSTER #### [facility] ([id number]) [address] [place] [address] AST [Catalytic activity/Vol] 17 U/L Normal 0-41 [facility] Comment on above: Performed By: #### C CASTING MACHINE ADJUSTER #### [facility] ([id number]) [address] [place] [address] Bilirubin [Mass/Vol] 0.2 mg/dL Low 0.3-1.2 [facility] Comment on above: Performed By: #### C CASTING MACHINE ADJUSTER #### [facility] ([id number]) [address] [place] [address] Calcium [Mass/Vol] 7.3 mg/dL Low 8.5-10.5 [facility] Comment on above: Performed By: #### C CASTING MACHINE ADJUSTER #### [facility] ([id number]) [address] [place] [address] Chloride [Moles/Vol] 105 mmol/L Normal 98-109 [facility] Comment on above: Performed By: #### C CASTING MACHINE ADJUSTER #### [facility] ([id number]) [address] [place] [address] CO2 [Moles/Vol] 25 mmol/L Normal 22-32 [facility] Comment on above: Performed By: #### C CASTING MACHINE ADJUSTER #### [facility] ([id number]) [address] [place] [address] Creatinine [Mass/Vol] 0.67 mg/dL Normal 0.40-1.00 [facility] Comment on above: Result Comment: METH OD TRACEABLE TO IDMS STANDARD Performed By: #### C CASTING MACHINE ADJUSTER #### [facility] ([id number]) [address] [place] [address] eGFR (CKD-EPI) NON-RACE DEPENDENT >90 Normal >59 [facility] Comment on above: Result Comment: Reported eGFR is based on the CKD-EPI 2020 equation that does not use a race coefficient. Performed By: #### C CASTING MACHINE ADJUSTER #### [facility] ([id number]) [address] [place] [address] Glucose [Mass/Vol] 88 mg/dL Normal 65-99 [facility] Comment on above: Performed By: #### C CASTING MACHINE ADJUSTER #### [facility] ([id number]) [address] [place] [address] Potassium [Moles/Vol] 4.7 mmol/L Normal 3.5-5.0 [facility] Comment on above: Performed By: #### C CASTING MACHINE ADJUSTER #### [facility] ([id number]) [address] [place] [address] Protein [Mass/Vol] 5.4 g/dL Low 6.0-8.0 [facility] Comment on above: Performed By: #### C CASTING MACHINE ADJUSTER #### [facility] ([id number]) [address] [place] [address] Sodium [Moles/Vol] 136 mmol/L Normal 134-146 [facility] Comment on above: Performed By: #### C CASTING MACHINE ADJUSTER #### [facility] ([id number]) [address] [place] [address] Urea nitrogen [Mass/Vol] 14 mg/dL Normal 5-23 [facility] Comment on above: Performed By: #### C CASTING MACHINE ADJUSTER #### [facility] ([id number]) [address] [place] [address] ANTI CARDIOLIPIN AB IGG IGA IGMon 09-01-2023 TAMIKO IgA <2.0 Normal 0-19.9 [facility] Comment on above: Performed By: #### C CASTING MACHINE ADJUSTER #### [facility] ([id number]) [address] [place] [address] TAMIKO IgG <1.6 Normal 0-19.9 [facility] Comment on above: Performed By: #### C CASTING MACHINE ADJUSTER #### [facility] ([id number]) [address] [place] [address] TAMIKO IgM <1.5 Normal 0-19.9 [facility] Comment on above: Performed By: #### C CASTING MACHINE ADJUSTER #### [facility] ([id number]) [address] [place] [address] BETA-2 GP1 AB PANELon 2023 BETA-2 GP1 IgA <2.0 Normal 0.0-19.9 [facility] Comment on above: Performed By: #### C CASTING MACHINE ADJUSTER #### [facility] ([id number]) [address] [place] [address] BETA-2 GP1 IgG <1.4 Normal 0.0-19.9 [facility] Comment on above: Performed By: #### C CASTING MACHINE ADJUSTER #### [facility] ([id number]) [address] [place] [address] BETA-2 GP1 IgM <1.5 Normal 0.0-19.9 [facility] Comment on above: Performed By: #### C CASTING MACHINE ADJUSTER #### [facility] ([id number]) [address] [place] [address] COMPLETE BLOOD COUNTon 09-01 Erythrocyte distribution width (RBC) [Ratio] 14.5 % Normal 11.5-15.0 [facility] Comment on above: Performed By: #### C BC, CMP #### [facility] ([id number]) [address], [address] [place] [address] Hematocrit (Bld) [Volume fraction] 26.8 % Low 35-47 [facility] Comment on above: Performed By: #### C BC, CMP #### [facility] ([id number]) [address], [address] [place] [address] Hemoglobin (Bld) [Mass/Vol] 8.7 g/dL Low 11.7-15.5 [facility] Comment on above: Performed By: #### C BC, CMP #### [facility] ([id number]) [address], [address] [place] [address] MCH (RBC) [Entitic mass] 26.0 pg Low 27-34 [facility] Comment on above: Performed By: #### C BC, CMP #### [facility] ([id number]) [address], [address] [place] [address] MCHC (RBC) [Mass/Vol] 32.5 g/dL Normal 32-36 [facility] Comment on above: Performed By: #### C BC, CMP #### [facility] ([id number]) [address], [address] [place] [address] MCV (RBC) [Entitic vol] 80 fL Normal 80-100 [facility] Comment on above: Performed By: #### C BC, CMP #### [facility] ([id number]) [address], [address] [place] [address] Platelet mean volume (Bld) [Entitic vol] 7.6 fL Normal 7-12 [facility] Comment on above: Performed By: #### C BC, CMP #### [facility] ([id number]) [address], [address] [place] [address] Platelets (Bld) [#/Vol] 412 10*3/uL Normal 150-450 [facility] Comment on above: Performed By: #### C BC, CMP #### [facility] ([id number]) [address], [address] [place] [address] RBC COUNT 3.35 X10E12/L Low 3.80-5.20 [facility] Comment on above: Performed By: #### C BC, CMP #### [facility] ([id number]) [address], [address] [place] [address] WBC (Bld) [#/Vol] 16.7 10*3/uL High 4.0-11.0 [facility] Comment on above: Performed By: #### C BC, CMP #### [facility] ([id number]) [address], [address] [place] [address] COMPREHENSIVE METABOLIC PANE Ez 01-11-2024 Albumin [Mass/Vol] 3.0 g/dL Low 3.2-5.3 [facility] Comment on above: Performed By: #### C CASTING MACHINE ADJUSTER #### [facility] ([id number]) [address] [facility] [place] [address] ALP [Catalytic activity/Vol] 91 U/L Normal 39-130 [facility] Comment on above: Performed By: #### C CASTING MACHINE ADJUSTER #### [facility] ([id number]) [address] [place] [address] ALT [Catalytic activity/Vol] 8 U/L Normal 0-31 [facility] Comment on above: Performed By: #### C CASTING MACHINE ADJUSTER #### [facility] ([id number]) [address] [place] [address] Anion gap [Moles/Vol] 9 mmol/L Normal 5-15 [facility] Comment on above: Performed By: #### C CASTING MACHINE ADJUSTER #### [facility] ([id number]) [address] [place] [address] AST [Catalytic activity/Vol] 13 U/L Normal 0-41 [facility] Comment on above: Performed By: #### C CASTING MACHINE ADJUSTER #### [facility] ([id number]) [address] [place] [address] Bilirubin [Mass/Vol] 0.2 mg/dL Low 0.3-1.2 [facility] Comment on above: Performed By: #### C CASTING MACHINE ADJUSTER #### [facility] ([id number]) [address] [place] [address] Calcium [Mass/Vol] 7.0 mg/dL Low 8.5-10.5 [facility] Comment on above: Performed By: #### C CASTING MACHINE ADJUSTER #### [facility] ([id number]) [address] [place] [address] Chloride [Moles/Vol] 100 mmol/L Normal 98-109 [facility] Comment on above: Performed By: #### C CASTING MACHINE ADJUSTER #### [facility] ([id number]) [address] [place] [address] CO2 [Moles/Vol] 23 mmol/L Normal 22-32 [facility] Comment on above: Performed By: #### C CASTING MACHINE ADJUSTER #### [facility] ([id number]) [address] [place] [address] Creatinine [Mass/Vol] 0.64 mg/dL Normal 0.40-1.00 [facility] Comment on above: Result Comment: METH OD TRACEABLE TO IDMS STANDARD Performed By: #### C CASTING MACHINE ADJUSTER #### [facility] ([id number]) [address] [place] [address] eGFR (CKD-EPI) NON-RACE DEPENDENT >90 Normal >59 [facility] Comment on above: Result Comment: Reported eGFR is based on the CKD-EPI 2020 equation that does not use a race coefficient. Performed By: #### C CASTING MACHINE ADJUSTER #### [facility] ([id number]) [address] [place] [address] Glucose [Mass/Vol] 116 mg/dL High 65-99 [facility] Comment on above: Performed By: #### C CASTING MACHINE ADJUSTER #### [facility] ([id number]) [address] [place] [address] Potassium [Moles/Vol] 4.2 mmol/L Normal 3.5-5.0 [facility] Comment on above: Performed By: #### C CASTING MACHINE ADJUSTER #### [facility] ([id number]) [address] [place] [address] Protein [Mass/Vol] 5.6 g/dL Low 6.0-8.0 [facility] Comment on above: Performed By: #### C CASTING MACHINE ADJUSTER #### [facility] ([id number]) [address] [place] [address] Sodium [Moles/Vol] 132 mmol/L Low 134-146 [facility] Comment on above: Performed By: #### C CASTING MACHINE ADJUSTER #### [facility] ([id number]) [address] [place] [address] Urea nitrogen [Mass/Vol] 9 mg/dL Normal 5-23 [facility] Comment on above: Performed By: #### C CASTING MACHINE ADJUSTER #### [facility] ([id number]) [address] [place] [address] MR BRAIN W WO CONTon 024 MR BRAIN W WO CONT MR BRAIN W WO CONT MR BRAIN W WO CONT HISTORY: Seizure, new-onset, no history of trauma; seizure (eclampsia). TECHNIQUE: Multiplanar multisequence MR of the brain was performed prior to and following the uncomplicated administration of ProHance intravenous contrast. COMPARISON: 09/29/2019. FINDINGS: No acute ischemia. No ventricular outflow obstruction [nondistended ventricular system]. No acute intracranial hemorrhage. Normal brain parenchymal signal characteristics, morphology. No pathologic brain parenchymal enhancement. Unremarkable visualized suprahyoid neck, orbits, scalp soft tissues. Minimal mucosal thickening anterior ethmoids. Unremarkable temporal bone structures. IMPRESSION: 1. Normal brain MRI. No clear structural etiology to account for seizures. Finalized by Yovany Mckeon MD on 09/01/2023 1:54 PM Normal [facility] MR MRA AND MRV HEAD W WO CON Ton 09-01-2023 MR MRA AND MRV HEAD W WO CONT MR MRA AND MRV HEAD W WO CONT MR MRA AND MRV HEAD W WO CONT CLINICAL INDICATION:eclamptic seizure. Neurologic abnormality COMPARISON: XX TECHNIQUE: Routine noncontrast, [id number], lummi of Spicer MRA was performed. Maximum intensity projection volumetric reformatted images were generated. Routine noncontrast, [id number], MR venogram was performed. Maximum intensity projection volumetric reformatted images were generated. Post contrast 3-D T1 weighted MPRAGE. FINDINGS: MRA: Motion degraded exam, findings may be obscured. Brain dictated separately. Unremarkable visualized internal carotid arteries, anterior, middle, posterior cerebral arteries. Small infundibulum versus aneurysm [~2 mm] arising at the origin of the left dominant posterior communicating artery [saved screen shot(s)]. Sizable right posterior to indicating artery is present. Unremarkable vertebral, basilar arteries. No sizable, saccular aneurysm. MRV: Unremarkable flow related signal within the superior sagittal sinus, straight sinus, transverse and sigmoid sinuses, internal cerebral veins. Symmetric cortical venous flow related signal. IMPRESSION: MRA: No high-grade stenosis or acute occlusion of the major lummi of Spicer arterial structures. 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 MRV: No dural venous sinus thrombosis. Finalized by Yovany Mckeon MD on 09/01/2023 1:46 PM Normal [facility] dRVVT/dRVVT.excess phospholi pid Coag (PPP) [Ratio]on 09-01-2023 DILUTE YOSEF'S VIPER VENOM Negative Normal [facility] Comment on above: Performed By: #### C CASTING MACHINE ADJUSTER #### [facility] ([id number]) [address] [place] [address] COMPLETE BLOOD COUNTon 08-31 Erythrocyte distribution width (RBC) [Ratio] 14.8 % Normal 11.5-15.0 [facility] Comment on above: Performed By: #### C CARLOTA JULES, 2532-0, 3084-1, 03705-2 #### [facility] ([id number]) [address] [place] [address] Hematocrit (Bld) [Volume fraction] 28.3 % Low 35-47 [facility] Comment on above: Performed By: #### C CARLOTA JULES, 2532-0, 3084-1, 96424-2 #### [facility] ([id number]) [address], [address] [place] [address] Hemoglobin (Bld) [Mass/Vol] 9.7 g/dL Low 11.7-15.5 [facility] Comment on above: Performed By: #### C DHARA CMP, 2532-0, 3084-1, 83320-9 #### [facility] ([id number]) [address], [address] [place] [address] MCH (RBC) [Entitic mass] 27.1 pg Normal 27-34 [facility] Comment on above: Performed By: #### C BC, CMP, 2532-0, 3084-1, 64237-0 #### [facility] ([id number]) [address], [address] [place] [address] MCHC (RBC) [Mass/Vol] 34.2 g/dL Normal 32-36 [facility] Comment on above: Performed By: #### C BC, CMP, 2532-0, 3084-1, 27670-6 #### [facility] ([id number]) [address] [address] [place] [address] MCV (RBC) [Entitic vol] 79 fL Low 80-100 [facility] Comment on above: Performed By: #### C BC, CMP, 2532-0, 3084-1, 82535-1 #### [facility] ([id number]) [address] [place] [address] Platelet mean volume (Bld) [Entitic vol] 7.3 fL Normal 7-12 [facility] Comment on above: Performed By: #### C BC, CMP, 2532-0, 3084-1, 89467-3 #### [facility] ([id number]) [address] [place] [address] Platelets (Bld) [#/Vol] 374 10*3/uL Normal 150-450 [facility] Comment on above: Performed By: #### C BC, CMP, 2532-0, 3084-1, 46368-6 #### [facility] ([id number]) [address], [address] [place] [address] RBC COUNT 3.58 X10E12/L Low 3.80-5.20 [facility] Comment on above: Performed By: #### C BC, CMP, 2532-0, 3084-1, 36272-4 #### [facility] ([id number]) [address], [address] [place] [address] WBC (Bld) [#/Vol] 16.2 10*3/uL High 4.0-11.0 [facility] Comment on above: Performed By: #### C BC, CMP, 2532-0, 3084-1, 56258-5 #### [facility] ([id number]) [address], [address] [place] [address] COMPREHENSIVE METABOLIC PANE Ez 08-31-2023 Albumin [Mass/Vol] 3.1 g/dL Low 3.2-5.3 [facility] Comment on above: Performed By: #### C BC, CMP, 2532-0, 3084-1, 49676-3 #### [facility] ([id number]) [address], [address] [place] [address] ALP [Catalytic activity/Vol] 105 U/L Normal 39-130 [facility] Comment on above: Performed By: #### C BC, CMP, 2532-0, 3084-1, 35424-7 #### [facility] ([id number]) [address], [address] [place] [address] ALT [Catalytic activity/Vol] 5 U/L Normal 0-31 [facility] Comment on above: Performed By: #### C BC, CMP, 2532-0, 3084-1, 88199-7 #### [facility] ([id number]) [address], [address] [place] [address] Anion gap [Moles/Vol] 10 mmol/L Normal 5-15 [facility] Comment on above: Performed By: #### C BC, CMP, 2532-0, 3084-1, 75364-9 #### [facility] ([id number]) [address], [address] [place] [address] AST [Catalytic activity/Vol] 8 U/L Normal 0-41 [facility] Comment on above: Performed By: #### C BC, CMP, 2532-0, 3084-1, 93958-9 #### [facility] ([id number]) [address], [address] [place] [address] Bilirubin [Mass/Vol] 0.2 mg/dL Low 0.3-1.2 [facility] Comment on above: Performed By: #### C BC, CMP, 2532-0, 3084-1, 40332-0 #### [facility] ([id number]) [address], [address] [place] [address] Calcium [Mass/Vol] 7.9 mg/dL Low 8.5-10.5 [facility] Comment on above: Performed By: #### C BC, CMP, 2532-0, 3084-1, 58748-0 #### [facility] ([id number]) [address], [address] [place] [address] Chloride [Moles/Vol] 105 mmol/L Normal 98-109 [facility] Comment on above: Performed By: #### C BC, CMP, 2532-0, 3084-1, 13630-2 #### [facility] ([id number]) [address], [address] [place] [address] CO2 [Moles/Vol] 20 mmol/L Low 22-32 [facility] Comment on above: Performed By: #### C BC, CMP, 2532-0, 3084-1, 34756-7 #### [facility] ([id number]) [address], [address] [place] [address] Creatinine [Mass/Vol] 0.65 mg/dL Normal 0.40-1.00 [facility] Comment on above: Result Comment: METH OD TRACEABLE TO IDMS STANDARD Performed By: #### Jeremiah JULES CMP, 2532-0, 3084-1, 05299-1 #### [facility] ([id number]) [address], [address] [place] [address] eGFR (CKD-EPI) NON-RACE DEPENDENT >90 Normal >59 [facility] Comment on above: Result Comment: Reported eGFR is based on the CKD-EPI 2020 equation that does not use a race coefficient. Performed By: #### Jeremiah JULES CMP, 2532-0, 3084-1, 77262-4 #### [facility] ([id number]) [address], [address] [place] [address] Glucose [Mass/Vol] 140 mg/dL High 65-99 [facility] Comment on above: Performed By: #### Jeremiah JULES CMP, 2532-0, 4-1, 20334-9 #### [facility] ([id number]) [address], [address] [place] [address] Potassium [Moles/Vol] 4.4 mmol/L Normal 3.5-5.0 [facility] Comment on above: Performed By: #### Jeremiah JULES CMP, 2532-0, 3084-1, 04950-3 #### [facility] ([id number]) [address], [address] [place] [address] Protein [Mass/Vol] 5.9 g/dL Low 6.0-8.0 [facility] Comment on above: Performed By: #### Jeremiah JULES CMP, 2532-0, 3084-1, 65332-0 #### [facility] ([id number]) [address], [address] [place] [address] Sodium [Moles/Vol] 135 mmol/L Normal 134-146 [facility] Comment on above: Performed By: #### Jeremiah JULES CMP, 2532-0, 3084-1, 33438-7 #### [facility] ([id number]) [address] [place] [address] Urea nitrogen [Mass/Vol] 9 mg/dL Normal 5-23 [facility] Comment on above: Performed By: #### C BC, CMP, 2532-0, 3084-1, 35139-6 #### [facility] ([id number]) [address], [address] [place] [address] CORD ARTERIAL GASon 08-31-19 24 MARIOLA'S TEST Normal [facility] Comment on above: Performed By: #### C CASTING MACHINE ADJUSTER #### [facility] ([id number]) [address] [facility] [place] [address] BASE,DEFICIT 6.0 MMOL/L High 0.0-2.0 [facility] Comment on above: Performed By: #### C CASTING MACHINE ADJUSTER #### [facility] ([id number]) [address] [facility] [place] [address] HCO3 (Bld) [Moles/Vol] 24.5 mmol/L Normal 22-26 [facility] Comment on above: Performed By: #### C CASTING MACHINE ADJUSTER #### [facility] ([id number]) [address] [place] [address] Oxygen (Bld) [Partial pressure] 26 mm[Hg] High 12-24 [facility] Comment on above: Performed By: #### C CASTING MACHINE ADJUSTER #### [facility] ([id number]) [address] [facility] [place] [address] Oxygen saturation in Blood 32.0 % Normal 7.1-39.5 [facility] Comment on above: Performed By: #### C CASTING MACHINE ADJUSTER #### [facility] ([id number]) [address] [facility] [place] [address] OXYGEN SOURCE RoomAir Normal [facility] Comment on above: Performed By: #### C CASTING MACHINE ADJUSTER #### [facility] ([id number]) [address] [place] [address] PCO2 66.3 MMHG High 40.8-57.6 [facility] Comment on above: Performed By: #### C CASTING MACHINE ADJUSTER #### [facility] ([id number]) [address] [place] [address] pH (Bld) 7.176 [pH] Low 7.24-7.30 [facility] Comment on above: Performed By: #### C CASTING MACHINE ADJUSTER #### [facility] ([id number]) [address] [place] [address] SAMPLE SITE ArtCord Normal [facility] Comment on above: Performed By: #### C CASTING MACHINE ADJUSTER #### [facility] ([id number]) [address] [place] [address] SAMPLE TYPE UMBILICALCORD Normal [facility] Comment on above: Performed By: #### C CASTING MACHINE ADJUSTER #### [facility] ([id number]) [address] [place] [address] CORD VENOUS GASon 08-31-2023 MARIOLA'S TEST Normal [facility] Comment on above: Performed By: #### C RDV #### [facility] ([id number]) [address] [place] [address] BASE,DEFICIT 7.0 MMOL/L High 0.0-2.0 [facility] Comment on above: Performed By: #### C RDV #### [facility] ([id number]) [address] [place] [address] HCO3 (Bld) [Moles/Vol] 23.0 mmol/L Normal 20.0-24.0 [facility] Comment on above: Performed By: #### C RDV #### [facility] ([id number]) [address] [place] [address] Oxygen (Bld) [Partial pressure] 54 mm[Hg] High 22-35 [facility] Comment on above: Performed By: #### C RDV #### [facility] ([id number]) [address] [place] [address] Oxygen saturation in Blood 78.0 % High 32.5-66.3 [facility] Comment on above: Performed By: #### C RDV #### [facility] ([id number]) [address] [place] [address] OXYGEN SOURCE RoomAir Normal [facility] Comment on above: Performed By: #### C RDV #### [facility] ([id number]) [address] [place] [address] PCO2 60.0 MMHG Critically high 32.6-43.8 [facility] Comment on above: Performed By: #### C RDV #### [facility] ([id number]) [address] [place] [address] pH (Bld) 7.191 [pH] Low 7.25-7.37 [facility] Comment on above: Performed By: #### C RDV #### [facility] ([id number]) [address] [place] [address] SAMPLE SITE VenCord Normal [facility] Comment on above: Performed By: #### C RDV #### [facility] ([id number]) [address] [place] [address] SAMPLE TYPE UMBILICALCORD Normal [facility] Comment on above: Performed By: #### C RDV #### [facility] ([id number]) [address] [place] [address] DRUG SCREEN, URINEon 024 AMPHETAMINE/METHAMP Negative Normal NEG [facility] Comment on above: Result Comment: AMPH /METH screening cut off = 1000 ng/mL Performed By: #### D GANT #### [facility] ([id number]) [address] [place] [address] BARBITURATES Negative Normal NEG [facility] Comment on above: Result Comment: Meaghan iturates screening cut off value = 200 ng/mL Performed By: #### D GANT #### [facility] ([id number]) [address] [place] [address] BENZODIAZEPINES Negative Normal NEG [facility] Comment on above: Result Comment: Steven odiazepines screening cut off value = 200 ng/mL Performed By: #### D GANT #### [facility] ([id number]) [address], [address] [place] [address] CANNABINOIDS Positive Abnormal NEG [facility] Comment on above: Result Comment: Conf irmation available upon request. Cannabinoids/THC screening cut off value = 50 ng/mL Performed By: #### D GANT #### [facility] ([id number]) [address] [place] [address] COCAINE METABOLITE Negative Normal NEG [facility] Comment on above: Result Comment: Coca ine screening cut off value = 300 ng/mL Performed By: #### D GANT #### [facility] ([id number]) [address] [place] [address] ECSTASY Negative Normal NEG [facility] Comment on above: Result Comment: Ecst asy screening cut off value = 500 ng/mL This report is intended for use in clinical monitoring or management of patients. Performed By: #### D GANT #### [facility] ([id number]) [address] [place] [address] METHADONE Negative Normal NEG [facility] Comment on above: Result Comment: Meth adone screening cut off value = 300 ng/mL. Performed By: #### D GANT #### [facility] ([id number]) [address], [address] [place] [address] OPIATES Negative Normal NEG [facility] Comment on above: Result Comment: Opia benjamin screening cut off value = 300 ng/mL NOTE: This test is used for the detection of codeine, hydrocodone (>1000 ng/mL), morphine and hydromorphone (>900 ng/mL) in urine. Performed By: #### D GANT #### [facility] ([id number]) [address], [address] [place] [address] OXYCODONE Negative Normal NEG [facility] Comment on above: Result Comment: Oxyc odone screening cut off value = 300 ng/mL NOTE: This test is used for the detection of oxycodone and oxymorphone in urine. Performed By: #### D GANT #### [facility] ([id number]) [address] [place] [address] PHENCYCLIDINE Negative Normal NEG [facility] Comment on above: Result Comment: Phen cyclidine screening cut off value = 25 ng/mL Performed By: #### D GANT #### [facility] ([id number]) [address], [address] [address] LDH [Catalytic activity/Vol] on 08-31-2023 LDH 122 U/L Normal 100-235 [facility] Comment on above: Performed By: #### C BC, CMP, 2532-0, 3084-1, 74081-9 #### [facility] ([id number]) [address], [address] [place] [address] PROTEIN CREAT RATIOon 2023 RANDOM URINE PROTEIN 70 mg/L Normal <120 [facility] Comment on above: Performed By: #### U PCR #### [facility] ([id number]) [address], [address] [place] [address] U/PRO/REED CLEANER RATIO CALC 0.34 High <0.2 [facility] Comment on above: Result Comment: Neph rotic Syndrome is associated with ratios >3.5 Performed By: #### U PCR #### [facility] ([id number]) [address] [place] [address], [facility] [address] [place] [address] URINE CREATININE,RDM 20.84 mg/dL Normal [facility] Comment on above: Performed By: #### U PCR #### [facility] ([id number]) [address] [place] [address], [facility] [address] [place] [address] Surgical Pathologyon 024 Surgical Pathology Normal [facility] Comment on above: Result Comment: [facility] [address] [place] [address] Surgical Pathology Consultation Patient Name:ADRIÁN CLEMENTSOB:1990 (Age: 33)Gender:FTaken:4Reported:4Physician(s):Esperanza Molina M.D. ([phone])Copy To: Rec. #:[id number]: #[id number] Final Pathologic Diagnosis Placenta: Third trimester placenta (440 g with subchorionic fibrin plaque. Partially circummarginate membranes, otherwise unremarkable. Unremarkable three-vessel umbilical cord with eccentric insertion. Report Electronically Signed Out ao/4Aausten Ortiz MD Interpretation [place] [address], License number: [id number]. Clinical History Eclampsia. Gross Description Received in formalin labeled STARR placenta : Single MEMBRANES: Placenta Sac Rupture (cm from margin): Indeterminate, 80% disrupted Color: Blue-bhatia Other Characteristics: Uniform and unremarkable Insertion Site: 50% marginal, 50% circummarginate CORD: Appearance: Unremarkable Site of Insertion: Eccentric Length & Diameter (cm): 21 x 0.8 cm True Knots: No Number of vessels: 3 GENERAL: Trimmed Weight (grams): 440 g Complete: Yes Size 1 x Size 2 x Size 3 (cm): 16 x 15 x 2.5 cm Accessory Lobe(s): No PLACENTAL DISK: Color of Surface: Blue-bhatia Sub-amniotic Cyst: No Amnion Nodosum: No Subchorionic Fibrin: Yes, up to 0.5 cm in thickness, less than 5% Appearance of Cut Surface: Uniform and unremarkable Maternal floor: Intact and unremarkable Retroplacental hematoma: No Cassettes: A Rolled membrane, two sections of cord B-D [employer] sections of placenta E Additional membrane roll (5,ss,V55-1333) /09/13/2023O Specimen(s) Received Placenta Fee Codes(s): 1; [address] T. pallidum IgG+IgM IA Ql (S )on 08-31-2023 Syphilis Total 0.2 AI Normal 0.0-0.8 [facility] Comment on above: Result Comment: NON REACTIVE No serologic evidence of infection to Treponema pallidum (syphilis). Repeat testing may be considered in patients with suspected acute or primary syphilis in 2 to 4 weeks. Performed By: #### C DHARA, CMP, 2532-0, 3084-1, 37589-2 #### [facility] ([id number]) [address] [place] [address], [address] [place] [address] URIC ACIDon 08-31-2023 Urate [Mass/Vol] 5.0 mg/dL Normal 2.6-7.2 [facility] Comment on above: Performed By: #### C BC, CMP, 2532-0, 3084-1, 91743-7 #### [facility] ([id number]) [address] [place] [address], [address] [place] [address] Nursing Home Documentson 05-03-2023 Nursing Home Documents [id number]#1. 00CD:127 Normal [facility] CBC panel Auto (Bld)on 03-17 Erythrocyte distribution width (RBC) [Ratio] 13.2 % Normal 11.5-15.0 [facility] Comment on above: Order Comment: Speci men Type: BLOOD SPECIMEN Ordering Facility: [facility] Address: [address] [place], [place] [address] [id number] Performed By: #### 1 9123-9, 62999-3 #### [facility] CLIA [id number] [address] [place] [address] [place] Hematocrit (Bld) [Volume fraction] 35.1 % Low 36.0-46.0 [facility] Comment on above: Order Comment: Speci men Type: BLOOD SPECIMEN Ordering Facility: [facility] Address: [address] Performed By: #### 1 9123-9, 57681-9 #### [facility] CLIA [id number] [address] [place] [address] [place] Hemoglobin (Bld) [Mass/Vol] 11.3 g/dL Low 11.5-15.5 [facility] Comment on above: Order Comment: Speci men Type: BLOOD SPECIMEN Ordering Facility: [facility] Address: [address] Performed By: #### 1 9123-9, 04772-3 #### [facility] CLIA [id number] [address] [place] [address] [place] MCH (RBC) [Entitic mass] 26.3 pg Normal 26.0-34.0 [facility] Comment on above: Order Comment: Speci men Type: BLOOD SPECIMEN Ordering Facility: [facility] Address: [address] [place] [address] Performed By: #### 1 9123-9, 54354-3 #### [facility] CLIA [id number] [address] [place] [address] [place] MCHC (RBC) [Mass/Vol] 32.2 g/dL Normal 30.5-36.0 [facility] Comment on above: Order Comment: Speci men Type: BLOOD SPECIMEN Ordering Facility: [facility] Address: [address] Performed By: #### 1 9123-9, #### [facility] CLIA [id number] [address] [place] [address] [place] MCV (RBC) [Entitic vol] 81.6 fL Normal 80.0-100.0 [facility] Comment on above: Order Comment: Speci men Type: BLOOD SPECIMEN Ordering Facility: [facility] Address: [address] Performed By: #### 1 9123-9, #### [facility] CLIA [id number] [address] [place] [address] [place] Nucleated RBC (Bld) [#/Vol] 10*3/uL Normal <0.01 [facility] Comment on above: Order Comment: Speci men Type: BLOOD SPECIMEN Ordering Facility: [facility] Address: [address] Performed By: #### 1 [address], #### [facility] CLIA [id number] [address] [place] [address] [place] Platelet mean volume (Bld) [Entitic vol] 8.7 fL Low 9.0-12.7 [facility] Comment on above: Order Comment: Speci men Type: BLOOD SPECIMEN Ordering Facility: [facility] Address: [address] [place] [address] Performed By: #### 1 [address], #### [facility] CLIA [id number] [address] [place] [address] [place] Platelets (Bld) [#/Vol] 482 10*3/uL High 150-400 [facility] Comment on above: Order Comment: Speci men Type: BLOOD SPECIMEN Ordering Facility: [facility] Address: [address] [place] [address] Performed By: #### 1 9123-9, #### [facility] CLIA [id number] [address] [place] [address] [place] RBC (Bld) [#/Vol] 4.30 10*6/uL Normal 3.90-5.20 [facility] Comment on above: Order Comment: Speci men Type: BLOOD SPECIMEN Ordering Facility: [facility] Address: [address] [place] [address] Performed By: #### 1 9123-9, 27694-5 #### [facility] CLIA [id number] [address] [place] [address] [place] WBC (Bld) [#/Vol] 10.57 10*3/uL Normal 3.70-11.00 [facility] Comment on above: Order Comment: Speci men Type: BLOOD SPECIMEN Ordering Facility: [facility] Address: [address] [place] [address] Performed By: #### 1 9123-9, 04701-9 #### [facility] CLIA [id number] [address] [place] [address] OF [place] CNDSon 03-17-2023 CNDS HNO ID: [id number] Author: Manoj Ramos MD Service: General Internal [...] your kidney infection. 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 Normal [facility] Magnesium SerPl-mCncon 03-17 Magnesium [Mass/Vol] 2.0 mg/dL Normal 1.7-2.3 [facility] Comment on above: Order Comment: Speci men Type: BLOOD SPECIMENOrdering Facility: [facility] Address: [address] [place] [id number] Performed By: #### 1 9123-9, 11502-7 ####[facility] [id number] [place] [address] [place] Renal function 2000 panelon 03-17-2023 Albumin [Mass/Vol] 3.7 g/dL Low 3.9-4.9 [facility] Comment on above: Order Comment: Speci men Type: BLOOD SPECIMENOrdering Facility: [facility] Address: [address] Performed By: #### 1 9123-9, 54300-6 ####[facility] [id number] [place] [address] [place] Anion gap [Moles/Vol] 15 mmol/L Normal 9-18 [facility] Comment on above: Order Comment: Speci men Type: BLOOD SPECIMENOrdering Facility: [facility] Address: [address] [place] [address] Performed By: #### 1 9123-9, 85030-2 ####[facility] [id number] [place] [address] [place] Calcium [Mass/Vol] 9.6 mg/dL Normal 8.5-10.2 [facility] Comment on above: Order Comment: Speci men Type: BLOOD SPECIMENOrdering Facility: [facility] Address: [address] Performed By: #### 1 9123-9, 18255-8 ####[facility] [id number] [place] [address] [place] Chloride [Moles/Vol] 99 mmol/L Normal 97-105 [facility] Comment on above: Order Comment: Speci men Type: BLOOD SPECIMENOrdering Facility: [facility] Address: [address] Performed By: #### 1 9123-9, 64482-3 ####[facility] [id number] [place] [address] [place] CO2 [Moles/Vol] 20 mmol/L Low 22-30 [facility] Comment on above: Order Comment: Speci men Type: BLOOD SPECIMENOrdering Facility: [facility] Address: [address] [place] [id number] Performed By: #### 1 9123-9, 89534-3 ####[facility] [id number] [address] STATES OF [facility] Creatinine [Mass/Vol] 0.67 mg/dL Normal 0.58-0.96 [facility] Comment on above: Order Comment: Tee francisco Type: BLOOD SPECIMENOrdering Facility: [facility] Address: [address] [place] [address] Performed By: #### 1 9123-9, 14708-8 ####[facility] [id number] [address] OF [facility] ESTIMATED GLOMERULAR FILTRATION RATE 121 mL/min/1.73m??? Normal >=60 [facility] Comment on above: Order Comment: Tee francisco Type: BLOOD SPECIMENOrdering Facility: [facility] Address: [address] [address] Result Comment: Marisa mated Glomerular Filtration Rate [...] actual GFR. Performed By: #### 1 9123-9, 25185-2 ####[facility] [id number] [place] [address] [place] Glucose [Mass/Vol] 130 mg/dL High 74-99 [facility] Comment on above: Order Comment: Tee francisco Type: BLOOD SPECIMENOrdering Facility: [facility] Address: [address] [address] Result Comment: The [place] [employer] (ADA) provides guidance for cutoff [...] Standards of Medical Care in Diabetes 2016, [place] [employer]. Diabetes Care. 2016.39(Suppl 1). Performed By: #### 1 9123-9, 67516-4 ####[facility] [id number] [place] [address] [place] Phosphate [Mass/Vol] 3.7 mg/dL Normal 2.7-4.8 [facility] Comment on above: Order Comment: Speci men Type: BLOOD SPECIMENOrdering Facility: [facility] Address: [address] [place] [address] Performed By: #### 1 91239, ####[facility] [id number] [place] [address] [place] Potassium [Moles/Vol] 3.9 mmol/L Normal 3.7-5.1 [facility] Comment on above: Order Comment: Speci men Type: BLOOD SPECIMENOrdering Facility: [facility] Address: [address] [place] [address] Performed By: #### 1 9123-9, ####[facility] [id number] [place] [address] [place] Sodium [Moles/Vol] 134 mmol/L Low 136-144 [facility] Comment on above: Order Comment: Speci men Type: BLOOD SPECIMENOrdering Facility: [facility] Address: [address] [address] Performed By: #### 1 9123-9, 52750-2 ####[facility] [id number] [address] [id number] Urea nitrogen [Mass/Vol] 12 mg/dL Normal 7-21 [facility] Comment on above: Order Comment: Tee francisco Type: BLOOD SPECIMENOrdering Facility: [facility] Address: [address] [place] [address] Performed By: #### 1 9123-9, 92776-0 ####[facility] [id number] [address] OF [facility] ALLIED HEALTHon 03-16-2023 ALLIED HEALTH HNO ID: [id number] Author: Heather Mcnair RT(R) Service: ? Author [...] Dorian(R) March 16, 2023 9:16 PM Normal [facility] CBC panel Auto (Bld)on 03-16 Erythrocyte distribution width (RBC) [Ratio] 13.4 % Normal 11.5-15.0 [facility] Comment on above: Order Comment: Tee francisco Type: BLOOD SPECIMEN [facility] Address: [address] [place], [place] [id number] Performed By: #### 1 9123-9, 15348-1 #### [facility] CLIA [id number] [address] [place] [address] [place] Hematocrit (Bld) [Volume fraction] 33.1 % Low 36.0-46.0 [facility] Comment on above: Order Comment: Speci men Type: BLOOD SPECIMEN [facility] Address: [address] [place] [address] Performed By: #### 1 9123-9, 40767-6 #### [facility] CLIA [id number] [address] [place] [address] [place] Hemoglobin (Bld) [Mass/Vol] 10.7 g/dL Low 11.5-15.5 [facility] Comment on above: Order Comment: Speci men Type: BLOOD SPECIMEN [facility] Address: [address] [place] [address] Performed By: #### 1 9123-9, 19876-9 #### [facility] CLIA [id number] [address] [place] [address] [place] MCH (RBC) [Entitic mass] 26.4 pg Normal 26.0-34.0 [facility] Comment on above: Order Comment: Speci men Type: BLOOD SPECIMEN [facility] Address: [address] [place] [address] Performed By: #### 1 9123-9, 43068-5 #### [facility] CLIA [id number] [address] [place] [address] [place] MCHC (RBC) [Mass/Vol] 32.3 g/dL Normal 30.5-36.0 [facility] Comment on above: Order Comment: Speci men Type: BLOOD SPECIMEN [facility] Address: [address] [place], [place] [address] Performed By: #### 1 9123-9, 12708-6 #### [facility] CLIA [id number] [facility] [place] [address] [place] MCV (RBC) [Entitic vol] 81.7 fL Normal 80.0-100.0 [facility] Comment on above: Order Comment: Speci men Type: BLOOD SPECIMEN [facility] Address: [address] [place] [address] Performed By: #### 1 9123-9, 64307-4 #### [facility] CLIA [id number] [address] [place] [address] [place] Nucleated RBC (Bld) [#/Vol] 10*3/uL Normal <0.01 [facility] Comment on above: Order Comment: Speci men Type: BLOOD SPECIMEN [facility] Address: [address] [place], [place] [address] Performed By: #### 1 9123-9, 56109-9 #### [facility] CLIA [id number] [address] [place] [address] [place] Platelet mean volume (Bld) [Entitic vol] 9.0 fL Normal 9.0-12.7 [facility] Comment on above: Order Comment: Speci men Type: BLOOD SPECIMEN [facility] Address: [address] [place] [address] Performed By: #### 1 9123-9, 54100-3 #### [facility] CLIA [id number] [address] [place] [address] [place] Platelets (Bld) [#/Vol] 444 10*3/uL High 150-400 [facility] Comment on above: Order Comment: Speci men Type: BLOOD SPECIMEN [facility] Address: [address] [place] [phone] Performed By: #### 1 9123-9, 83652-5 #### [facility] CLIA [id number] [address] [place] [address] [place] RBC (Bld) [#/Vol] 4.05 10*6/uL Normal 3.90-5.20 [facility] Comment on above: Order Comment: Speci men Type: BLOOD SPECIMEN [facility] Address: [address] [phone] Performed By: #### 1 9123-9, 75506-6 #### [facility] CLIA [id number] [address] [place] [address] [place] WBC (Bld) [#/Vol] 8.78 10*3/uL Normal 3.70-11.00 [facility] Comment on above: Order Comment: Speci men Type: BLOOD SPECIMEN [facility] Address: [address] [address] Performed By: #### 1 9123-9, 78538-4 #### [facility] CLIA [id number] [address] [place] [address] [place] CONSULT PROGon 03-16-2023 CONSULT PROG HNO ID: [id number] Author: Abbie Cifuentes MD Service: Obstetrics Author Type: Physician Type: Consult Progress Note Filed: 03/16/2023 7:27 AM Note Text: business continuity planning director consult progress note Review the [place] on 03/15 with patient : Single , Live Intrauterine gestation / 8 weeks 2 days by CRL Blood Type : O positive Patient will follow up with her local business continuity planning director to continue care. Charter Coordinator sign off If any question , please page x [phone]. Rusty Muniz 03/16/2023 7:27 AM Normal [facility] MRI ABDOMEN WO IVCONon 03-16 MRI ABDOMEN [...] on 03/17/2023 9:32 AM via verbal communication. Care Services Manager: JAYMIE Transcribe Date/Time: Mar 17 2023 8:02A Dictated by : BRANDEN DE LA TORRE MD This examination was interpreted and the report reviewed and electronically signed by: JAZMIN VALENTE MD on Mar 17 2023 9:50AM EST [id number] Normal [facility] Magnesium SerPl-mCncon 03-16 Magnesium [Mass/Vol] 1.9 mg/dL Normal 1.7-2.3 [facility] Comment on above: Order Comment: Speci men Type: BLOOD SPECIMEN [facility] Address: [address] [place], [place] [phone] Performed By: #### 1 9123-9, 49099-5 #### [facility] CLIA [id number] [address] [facility] [place] [address] [place] Renal function 2000 panelon 03-16-2023 Albumin [Mass/Vol] 3.6 g/dL Low 3.9-4.9 [facility] Comment on above: Order Comment: Speci men Type: BLOOD SPECIMEN [facility] Address: [address] Performed By: #### 1 9123-9, 47852-3 #### [facility] CLIA [id number] [address] [place] [address] [place] Anion gap [Moles/Vol] 14 mmol/L Normal 9-18 [facility] Comment on above: Order Comment: Speci men Type: BLOOD SPECIMEN [facility] Address: [address] Performed By: #### 1 9123-9, 80550-8 #### [facility] CLIA [id number] [address] [place] [address] [place] Calcium [Mass/Vol] 9.3 mg/dL Normal 8.5-10.2 [facility] Comment on above: Order Comment: Speci men Type: BLOOD SPECIMEN [facility] Address: [address] Performed By: #### 1 9123-9, 11367-3 #### [facility] CLIA [id number] [address] [place] [address] [place] Chloride [Moles/Vol] 102 mmol/L Normal 97-105 [facility] Comment on above: Order Comment: Speci men Type: BLOOD SPECIMEN [facility] Address: [address] Performed By: #### 1 9123-9, 23107-3 #### [facility] CLIA [id number] [address] [place] [address] [place] CO2 [Moles/Vol] 20 mmol/L Low 22-30 [facility] Comment on above: Order Comment: Speci men Type: BLOOD SPECIMEN [facility] Address: [address] Performed By: #### 1 9123-9, 92252-3 #### [facility] CLIA [id number] [address] STATES OF [facility] Creatinine [Mass/Vol] 0.71 mg/dL Normal 0.58-0.96 [facility] Comment on above: Order Comment: Tee francisco Type: BLOOD SPECIMEN [facility] Address: [address] [address] Performed By: #### 1 9123-9, 19307-8 #### [facility] CLIA [id number] [address] [place] [address] [place] ESTIMATED GLOMERULAR FILTRATION RATE 117 mL/min/1.73m??? Normal >=60 [facility] Comment on above: Order Comment: Tee francisco Type: BLOOD SPECIMEN [facility] Address: [address] [place] [address] Result Comment: Marisa mated Glomerular Filtration Rate [...] actual GFR. Performed By: #### 1 9123-9, 45076-7 #### [facility] CLIA [id number] [address] [place] [address] [place] Glucose [Mass/Vol] 125 mg/dL High 74-99 [facility] Comment on above: Order Comment: Tee francisco Type: BLOOD SPECIMEN [facility] Address: [address] [address] Result Comment: The [place] [employer] (ADA) provides guidance for cutoff [...] Standards of Medical Care in Diabetes 2016, [place] [employer]. Diabetes Care. 2016.39(Suppl 1). Performed By: #### 1 9123-9, 02444-2 #### [facility] CLIA [id number] [address] [place] [address] [place] Phosphate [Mass/Vol] 3.7 mg/dL Normal 2.7-4.8 [facility] Comment on above: Order Comment: Tee francisco Type: BLOOD SPECIMEN [facility] Address: [address] [place] [address] Performed By: #### 1 9123-9, 25113-1 #### [facility] CLIA [id number] [facility] [place] [address] [place] Potassium [Moles/Vol] 3.9 mmol/L Normal 3.7-5.1 [facility] Comment on above: Order Comment: Tee francisco Type: BLOOD SPECIMEN [facility] Address: [address] [address] Performed By: #### 1 9123-9, 97095-9 #### [facility] CLIA [id number] [address] [place] [address] [place] Sodium [Moles/Vol] 136 mmol/L Normal 136-144 [facility] Comment on above: Order Comment: Neemai men Type: BLOOD SPECIMEN [facility] Address: [address] [place] [address] Performed By: #### 1 9123-9, 90259-2 #### [facility] CLIA [id number] [address] [id number] [place] Urea nitrogen [Mass/Vol] 10 mg/dL Normal 7-21 [facility] Comment on above: Order Comment: Speci men Type: BLOOD SPECIMEN [facility] Address: [address] [place] [address] Performed By: #### 1 9123-9, 04178-3 #### [facility] CLIA [id number] [address] [place] [address] [place] CBC panel Auto (Bld)on 03-15 Erythrocyte distribution width (RBC) [Ratio] 13.5 % Normal 11.5-15.0 [facility] Comment on above: Order Comment: Speci men Type: BLOOD SPECIMENOrdering Facility: [facility] Address: [address] [place] [address] Performed By: #### 5 8410-2 ####[facility] [id number] [place] [address] [place] Hematocrit (Bld) [Volume fraction] 32.4 % Low 36.0-46.0 [facility] Comment on above: Order Comment: Speci men Type: BLOOD SPECIMENOrdering Facility: [facility] Address: [address] [place] [address] Performed By: #### 5 8410-2 ####[facility] [id number] [place] [address] [place] Hemoglobin (Bld) [Mass/Vol] 10.4 g/dL Low 11.5-15.5 [facility] Comment on above: Order Comment: Speci men Type: BLOOD SPECIMENOrdering Facility: [facility] Address: [address] [place] [address] Performed By: #### 5 8410-2 ####[facility] [id number] [place] [address] [place] MCH (RBC) [Entitic mass] 26.6 pg Normal 26.0-34.0 [facility] Comment on above: Order Comment: Speci men Type: BLOOD SPECIMENOrdering Facility: [facility] Address: [address] Performed By: #### 5 8410-2 ####[facility] [id number] [address] [place] MCHC (RBC) [Mass/Vol] 32.1 g/dL Normal 30.5-36.0 [facility] Comment on above: Order Comment: Speci men Type: BLOOD SPECIMENOrdering Facility: [facility] Address: [address] [place], [place] [address] Performed By: #### 5 8410-2 ####[facility] [id number] [place] [address] [place] MCV (RBC) [Entitic vol] 82.9 fL Normal 80.0-100.0 [facility] Comment on above: Order Comment: Speci men Type: BLOOD SPECIMENOrdering Facility: [facility] Address: [address] [place], [place] [address] Performed By: #### 5 8410-2 ####[facility] [id number] [place] [address] [place] Nucleated RBC (Bld) [#/Vol] 10*3/uL Normal <0.01 [facility] Comment on above: Order Comment: Speci men Type: BLOOD SPECIMENOrdering Facility: [facility] Address: [address] [place] [address] Performed By: #### 5 8410-2 ####[facility] [id number] [place] [address] [place] Platelet mean volume (Bld) [Entitic vol] 9.5 fL Normal 9.0-12.7 [facility] Comment on above: Order Comment: Speci men Type: BLOOD SPECIMENOrdering Facility: [facility] Address: [address] [place], [place] [address] Performed By: #### 5 8410-2 ####[facility] [id number] [place] [address] [place] Platelets (Bld) [#/Vol] 450 10*3/uL High 150-400 [facility] Comment on above: Order Comment: Speci men Type: BLOOD SPECIMENOrdering Facility: [facility] Address: [address] [place] [address] Performed By: #### 5 8410-2 ####[facility] [id number] [place] [address] [place] RBC (Bld) [#/Vol] 3.91 10*6/uL Normal 3.90-5.20 [facility] Comment on above: Order Comment: Speci men Type: BLOOD SPECIMENOrdering Facility: [facility] Address: [address] [place] [address] Performed By: #### 5 8410-2 ####[facility] [id number] [place] [address] [place] WBC (Bld) [#/Vol] 10.48 10*3/uL Normal 3.70-11.00 [facility] Comment on above: Order Comment: Speci men Type: BLOOD SPECIMENOrdering Facility: [facility] Address: [address] [place] [address] Performed By: #### 5 8410-2 ####[facility] [id number] [place] [address] [place] [facility] [place] CONSULTon 03-15-2023 CONSULT HNO ID: [id number] Author: Abbie Cifuentes MD Service: Gynecology Author [...] hr Seen and evaluated with Dr. Cifuentes, [employer] staff. Pretty Duncan, Lab Rn Resident, PGY-1 9:11 AM After 5pm and on weekends please page [phone]. SUBJECTIVE HPI: 32 year old with PMHx Stills disease, benign liver angioma s/p resection, at 8 weeks 6 days gestation (by LMP) admitted for pyelonephritis, seen by gynecology for vaginal spotting. States she began experiencing flank pain with hematuria, without dysuria or frequency, on February 22. Called her OB provider (Dr. Ricks at [facility]), who gave rx for macrobid. Had no [...] scheduled this Tuesday (03/18) Was transferred to [facility] for management given her history of [...] (gestational age not stated) G5: admitted for JONES, HTN at 32 wga, seizure on Mg, emergency CS. Delivered 9 mo ago [employer] Hx: LMP: 01/12/23 Menses: regular every 28 [...] The remainde (more content not included)... Normal [facility] CRP SerPl-mCncon 03-15-2023 CRP [Mass/Vol] 9.0 mg/dL High <0.9 [facility] Comment on above: Order Comment: Speci men Type: BLOOD SPECIMEN [facility] Address: [address] [place] [address] Performed By: #### 1 9123-9, 90158-8 #### [facility] CLIA [id number] [address] [facility] [address] OF [facility] MEDICAL EMERon 03-15-2023 MEDICAL DEVI HNO ID: [id number] Author: Jose De Jesus White APRN.ABALONE DIVER Service: Critical Care Author Type: Nurse Practitioner [...] bleeding HPI: Ms. Clements was transferred to [facility] 03/13 from [facility] for further mgmt of possible pyelonephritis, [...] Abdomen: soft and tender Peripheral 03/13/23 1300 [facility] Short Left Antecubital 18 Gauge (Active) Placement Date/Time: 03/13/23 1300 Line, Drain, Airway Placed by: [facility] Type of Peripheral Line: Short Location: Left Insertion Site: Antecubital Size: 18 Gauge Line Placed Under Ultrasound Guidance: Yes Peripheral 03/13/23 1300 [facility] Right Forearm 18 Gauge (Active) Placement Date/Time: 03/13/23 1300 Line, Drain, Airway Placed by: [facility] Location: Right Insertion Site: Forearm Size: 18 Gauge Line Placed Under Ultrasound Guidance: Yes [facility] Diagnostic Tests Reviewed: Most recent labs and imaging results. Primary Team Aware/Notified: Yes SIGNATURE: Jose De Jesus White APRN.CNP PATIENT NAME: Qian Clements DATE: March 15, 2023 TIME: 8:57 AM Normal [facility] Magnesium SerPl-mCncon 03-15 Magnesium [Mass/Vol] 2.1 mg/dL Normal 1.7-2.3 [facility] Comment on above: Order Comment: Speci maryam Type: BLOOD SPECIMEN [facility] Address: [address] [place] [address] Performed By: #### 1 9123-9, 09575-0 #### [facility] CLIA [id number] [address] [place] [address] [place] Renal function 2000 panelon 03-15-2023 Albumin [Mass/Vol] 3.7 g/dL Low 3.9-4.9 [facility] Comment on above: Order Comment: Neemai maryam Type: BLOOD SPECIMEN [facility] Address: [address] [place] [address] Performed By: #### 1 9123-9, 35005-0 #### [facility] CLIA [id number] [address] [place] [address] [place] Anion gap [Moles/Vol] 12 mmol/L Normal 9-18 [facility] Comment on above: Order Comment: Neemai men Type: BLOOD SPECIMEN [facility] Address: [address] [place] [address] Performed By: #### 1 9123-9, 11775-8 #### [facility] CLIA [id number] [address] [place] [address] [place] Calcium [Mass/Vol] 9.5 mg/dL Normal 8.5-10.2 [facility] Comment on above: Order Comment: Speci men Type: BLOOD SPECIMEN [facility] Address: [address] [place], [place] [address] Performed By: #### 1 9123-9, 77121-6 #### [facility] CLIA [id number] [address] [place] [address] [place] Chloride [Moles/Vol] 103 mmol/L Normal 97-105 [facility] Comment on above: Order Comment: Speci men Type: BLOOD SPECIMEN [facility] Address: [address] [place], [place] [address] Performed By: #### 1 9123-9, 88965-7 #### [facility] CLIA [id number] [address] [place] [address] [place] CO2 [Moles/Vol] 21 mmol/L Low 22-30 [facility] Comment on above: Order Comment: Speci men Type: BLOOD SPECIMEN [facility] Address: [address] [place] [address] Performed By: #### 1 9123-9, 09322-4 #### [facility] CLIA [id number] [address] [place] [address] [place] Creatinine [Mass/Vol] 0.77 mg/dL Normal 0.58-0.96 [facility] Comment on above: Order Comment: Speci men Type: BLOOD SPECIMEN [facility] Address: [address] [id number] Performed By: #### 1 9123-9, 44179-3 #### [facility] CLIA [id number] [address] [place] [address] [place] ESTIMATED GLOMERULAR FILTRATION RATE 107 mL/min/1.73m??? Normal >=60 [facility] Comment on above: Order Comment: Tee francisco Type: BLOOD SPECIMEN [facility] Address: [address] [address] Result Comment: Marisa mated Glomerular Filtration Rate [...] actual GFR. Performed By: #### 1 9123-9, 48815-3 #### [facility] CLIA [id number] [address] [place] [address] [place] Glucose [Mass/Vol] 102 mg/dL High 74-99 [facility] Comment on above: Order Comment: Tee francisco Type: BLOOD SPECIMEN [facility] Address: [address] [place] [address] Result Comment: The [place] [employer] (ADA) provides guidance for cutoff [...] Standards of Medical Care in Diabetes 2016, [place] [employer]. Diabetes Care. 2016.39(Suppl 1). Performed By: #### 1 9123-9, 96492-2 #### [facility] CLIA [id number] [address] [place] [address] [place] Phosphate [Mass/Vol] 3.5 mg/dL Normal 2.7-4.8 [facility] Comment on above: Order Comment: Speci men Type: BLOOD SPECIMEN Ordering Facility: [facility] Address: [address] [place], [place] [address] Performed By: #### 1 9123-9, 62019-1 #### [facility] CLIA [id number] [address] [place] [address] [place] Potassium [Moles/Vol] 4.3 mmol/L Normal 3.7-5.1 [facility] Comment on above: Order Comment: Speci men Type: BLOOD SPECIMEN Ordering Facility: [facility] Address: [address] [place] [address] Performed By: #### 1 9123-9, 37585-2 #### [facility] CLIA [id number] [address] [place] [address] [place] Sodium [Moles/Vol] 136 mmol/L Normal 136-144 [facility] Comment on above: Order Comment: Speci men Type: BLOOD SPECIMEN Ordering Facility: [facility] Address: [address] [place], [place] [address] Performed By: #### 1 9123-9, 72048-9 #### [facility] CLIA [id number] [address] [place] [address] [place] Urea nitrogen [Mass/Vol] 11 mg/dL Normal 7-21 [facility] Comment on above: Order Comment: Speci men Type: BLOOD SPECIMEN Ordering Facility: [facility] Address: [address] Performed By: #### 1 9123-9, 41003-4 #### [facility] CLIA [id number] [address] [place] [address] [place] TYPE + SCREEN PRENATALon ABO O Normal [facility] Comment on above: Order Comment: Speci men Type: BLOOD SPECIMEN Ordering Facility: [facility] Address: [address] [place] [address] Performed By: #### 1 9123-9, 38234-5 #### [facility] CLIA [id number] [address] [place] [address] [place] HISTORICAL AB SCR STATUS Negative Normal [facility] Comment on above: Order Comment: Speci men Type: BLOOD SPECIMEN Ordering Facility: [facility] Address: [address] [place] [address] Performed By: #### 1 9123-9, 36394-5 #### [facility] CLIA [id number] [address] [place] [address] [place] Rh Nom (Bld) Positive Normal [facility] Comment on above: Order Comment: Speci men Type: BLOOD SPECIMEN Ordering Facility: [facility] Address: [address] [place] [address] Performed By: #### 1 9123-9, 29408-1 #### [facility] CLIA [id number] [address] [place] TYPE AND SCREEN EXPIRATION 03/18/2023 23:59 Normal [facility] Comment on above: Order Comment: Speci men Type: BLOOD SPECIMEN Ordering Facility: [facility] Address: [address] [place] [address] Performed By: #### 1 9123-9, 73333-6 #### [facility] CLIA [id number] [address] [place] [address] [place] US PREG TRANSABD <14 WKS LTD on 03-15-2023 US PREG TRANSABD <14 WKS LTD * * *Final Report* * * DATE OF EXAM: Mar 15 2023 2:48PM U 1035 - US PREG TRANSABD <14 WKS [...] sac: Present - Embryo: Single present - Navarre rump length: 1.83 cm, corresponding gestational age 8 weeks, 2 days -Gestational heart rate: present 161-166 bpm -Subgestational hematoma: Absent Right ovary: Not seen. Left ovary: - Size: 2.4 x 1.3 x 2.7 cm - Normal sonographic appearance with physiologic follicles. Pelvis free fluid: None. IMPRESSION: Single, live intrauterine gestation. Estimated Gestational Age: 8 weeks, 2 days by crown rump length. 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 Left ovary: - Size: 2.4 x 1.3 x 2.7 cm - Normal sonographic appearance with physiologic follicles. Pelvis free fluid: None. IMPRESSION: Single, live intrauterine gestation. Estimated Gestational Age: 8 weeks, 2 days by crown rump length. Care Services Manager: [facility] Transcribe Date/Time: Mar 15 2023 3:17P Dictated by : MARY ANN ESQUIVEL MD This examination was interpreted and the report reviewed and electronically signed by: MARY ANN ESQUIVEL MD on Mar 15 2023 3:24PM EST [id number] Normal [facility] CASE MGT INIT Mitch 2022 CASE MGT INIT REMI HNO ID: [id number] Author: Adwoa Hodge RN Service: ? Author [...] Discharge: To Be Determined PCP: Racquel Simpson p. [phone] f. [phone] Post-Acute Discharge Plan: CM met with pt [...] does not use drugs. 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 This patient has been screened for Care Management Transitional Planning Services. At this time, it does not appear this patient will require transition planning services. Should this change, and the patient require transition planning services during this admission, please call [phone]. NO SKILLED NEEDS SIGNATURE: Adwoa Hodge RN PATIENT NAME: Qian Clements DATE: March 14, 2023 TIME: 12:53 PM CONTACT #: [phone] Normal [facility] CBC panel Auto (Bld)on 03-14 Erythrocyte distribution width (RBC) [Ratio] 13.6 % Normal 11.5-15.0 [facility] Comment on above: Order Comment: Speci men Type: BLOOD SPECIMENOrdering Facility: [facility] Address: [address] [place] [address] Performed By: #### 5 8410-2 ####[facility] [id number] [place] [address] [place] Hematocrit (Bld) [Volume fraction] 31.0 % Low 36.0-46.0 [facility] Comment on above: Order Comment: Tee francisco Type: BLOOD SPECIMENOrdering Facility: [facility] Address: [address] [place] [address] Performed By: #### 5 8410-2 ####[facility] [id number] [place] [address] [place] Hemoglobin (Bld) [Mass/Vol] 10.4 g/dL Low 11.5-15.5 [facility] Comment on above: Order Comment: Speci maryam Type: BLOOD SPECIMENOrdering Facility: [facility] Address: [address] [place] [address] Performed By: #### 5 8410-2 ####[facility] [id number] [place] [address] [place] MCH (RBC) [Entitic mass] 26.5 pg Normal 26.0-34.0 [facility] Comment on above: Order Comment: Speci men Type: BLOOD SPECIMENOrdering Facility: [facility] Address: [address] [place], [place] [address] Performed By: #### 5 8410-2 ####[facility] [id number] [address] [place] MCHC (RBC) [Mass/Vol] 33.5 g/dL Normal 30.5-36.0 [facility] Comment on above: Order Comment: Speci men Type: BLOOD SPECIMENOrdering Facility: [facility] Address: [address] [place] [address] Performed By: #### 5 8410-2 ####[facility] [id number] [address] [place] MCV (RBC) [Entitic vol] 78.9 fL Low 80.0-100.0 [facility] Comment on above: Order Comment: Speci men Type: BLOOD SPECIMENOrdering Facility: [facility] Address: [address] [place], [place] [address] Performed By: #### 5 8410-2 ####[facility] [id number] [address] [place] Nucleated RBC (Bld) [#/Vol] 10*3/uL Normal <0.01 [facility] Comment on above: Order Comment: Speci men Type: BLOOD SPECIMENOrdering Facility: [facility] Address: [address] [place], [place] [address] Performed By: #### 5 8410-2 ####[facility] [id number] [address] [place] Platelet mean volume (Bld) [Entitic vol] 9.0 fL Normal 9.0-12.7 [facility] Comment on above: Order Comment: Speci men Type: BLOOD SPECIMENOrdering Facility: [facility] Address: [address] Performed By: #### 5 8410-2 ####[facility] [id number] [place] [address] [place] Platelets (Bld) [#/Vol] 415 10*3/uL High 150-400 [facility] Comment on above: Order Comment: Speci men Type: BLOOD SPECIMENOrdering Facility: [facility] Address: [address] [place], [place] [address] Performed By: #### 5 8410-2 ####[facility] [id number] [place] [address] [place] RBC (Bld) [#/Vol] 3.93 10*6/uL Normal 3.90-5.20 [facility] Comment on above: Order Comment: Speci men Type: BLOOD SPECIMENOrdering Facility: [facility] Address: [address] [place] [address] Performed By: #### 5 8410-2 ####[facility] [id number] [place] [address] [place] WBC (Bld) [#/Vol] 11.23 10*3/uL High 3.70-11.00 [facility] Comment on above: Order Comment: Speci men Type: BLOOD SPECIMENOrdering Facility: [facility] Address: [address] [place], [place] [address] Performed By: #### 5 8410-2 ####[facility] [id number] [place] [address] [place] [facility] [place] Magnesium SerPl-mCncon 03-14 Magnesium [Mass/Vol] 1.9 mg/dL Normal 1.7-2.3 [facility] Comment on above: Order Comment: Speci men Type: BLOOD SPECIMEN Ordering Facility: [facility] Address: [address] [place], [place] [address] Performed By: #### 4 537-7, 55585-6 #### [facility] CLIA [id number] [address] [place] [address] [place] Renal function 2000 panelon 03-14-2023 Albumin [Mass/Vol] 3.6 g/dL Low 3.9-4.9 [facility] Comment on above: Order Comment: Speci men Type: BLOOD SPECIMEN Ordering Facility: [facility] Address: [address] [place] [address] Performed By: #### 4 537-7, 04778-1 #### [facility] CLIA [id number] [address] [place] [address] [place] Anion gap [Moles/Vol] 13 mmol/L Normal 9-18 [facility] Comment on above: Order Comment: Speci men Type: BLOOD SPECIMEN Ordering Facility: [facility] Address: [address] [place] [address] Performed By: #### 4 537-7, 80545-1 #### [facility] CLIA [id number] [address] [place] [address] [place] Calcium [Mass/Vol] 9.2 mg/dL Normal 8.5-10.2 [facility] Comment on above: Order Comment: Speci men Type: BLOOD SPECIMEN Ordering Facility: [facility] Address: [address] [place] Performed By: #### 4 537-7, 90228-9 #### [facility] CLIA [id number] [address] [place] [address] [place] Chloride [Moles/Vol] 102 mmol/L Normal 97-105 [facility] Comment on above: Order Comment: Speci men Type: BLOOD SPECIMEN Ordering Facility: [facility] Address: [address] [place] [address] Performed By: #### 4 537-7, 41961-4 #### [facility] CLIA [id number] [address] [place] [address] [place] CO2 [Moles/Vol] 19 mmol/L Low 22-30 [facility] Comment on above: Order Comment: Speci men Type: BLOOD SPECIMEN Ordering Facility: [facility] Address: [address] [place] [address] Performed By: #### 4 537-7, 44974-2 #### [facility] CLIA [id number] [facility] [place] [address] [place] Creatinine [Mass/Vol] 0.75 mg/dL Normal 0.58-0.96 [facility] Comment on above: Order Comment: Speci men Type: BLOOD SPECIMEN Order[facility] Facility: [facility] Address: [address] [place] [address] Performed By: #### 4 537-7, 31456-4 #### [facility] IA [id number] [address] [place] [address] [place] ESTIMATED GLOMERULAR FILTRATION RATE 110 mL/min/1.73m??? Normal >=60 [facility] Comment on above: Order Comment: Speci men Type: BLOOD SPECIMEN Ordering Facility: [facility] Address: [address] [place] [address] Result Comment: Marisa mated Glomerular Filtration Rate [...] accurately reflect actual GFR. Performed By: #### 4 537-7, 01426-9 #### [facility] CLIA [id number] [address] [place] [address] [place] Glucose [Mass/Vol] 131 mg/dL High 74-99 [facility] Comment on above: Order Comment: Speci men Type: BLOOD SPECIMEN Order[facility] Facility: [facility] Address: [address] [place] [id number] Result Comment: The [place] [employer] (ADA) provides guidance for cutoff [...] Standards of Medical Care in Diabetes 2016, [place] [employer]. Diabetes Care. 2016.39(Suppl 1). Performed By: #### 4 537-7, 93424-6 #### [facility] CLIA [id number] [address] [place] [address] [place] Phosphate [Mass/Vol] 2.6 mg/dL Low 2.7-4.8 [facility] Comment on above: Order Comment: Speci men Type: BLOOD SPECIMEN Order[facility]: [facility] Address: [address] [place], [place] [address] Performed By: #### 4 537-7, 67915-2 #### [facility] CLIA [id number] [address] [place] [address] [place] Potassium [Moles/Vol] 3.7 mmol/L Normal 3.7-5.1 [facility] Comment on above: Order Comment: Speci men Type: BLOOD SPECIMEN Order[facility] Facility: [facility] Address: [address] [place] [phone] Performed By: #### 4 537-7, 48779-1 #### [facility] CLIA [id number] [address] [place] [id number] [place] Sodium [Moles/Vol] 134 mmol/L Low 136-144 [facility] Comment on above: Order Comment: Speci men Type: BLOOD SPECIMEN Order[facility] Facility: [facility] Address: [place] [address] Performed By: #### 4 537-7, 39356-3 #### [facility] CLIA [id number] [address] [place] [address] [place] Urea nitrogen [Mass/Vol] 7 mg/dL Normal 7-21 [facility] Comment on above: Order Comment: Speci men Type: BLOOD SPECIMEN Order[facility] Facility: [facility] Address: [address] [place] [address] Performed By: #### 4 537-7, 49946-8 #### [facility] CLIA [id number] [address] [place], [place] [address] [place] US KIDNEY/BLADDERon 03-14-20 23 US KIDNEY/BLADDER * * *Final Report* * * DATE OF EXAM: Mar 14 2023 10:55AM U 1055 - US KIDNEY/BLADDER / PROCEDURE REASON: Pyelonephritis, complicated * [...] IMPRESSION: NO HYDRONEPHROSIS OR SHADOWING RENAL CALCULUS. Care Services Manager: JAYMIE Transcribe Date/Time: Mar 14 2023 12:32P Dictated by : ARTURO ALVARADO, DO This examination was interpreted and the report reviewed and electronically signed by: ARTURO ALVARADO DO on Mar 14 2023 12:34PM EST [id number] Normal [facility] BETA HCG, QUANTITATIVE FOR Joslyn Bills 03-13-2023 HCG.beta subunit Qn m[IU]/mL High <5.0 [facility] Comment on above: Order Comment: Speci men Type: BLOOD SPECIMEN Ordering Facility: [facility] Address: [address] [place] [address] Result Comment: SO TITATIVE HCG NORMAL RANGES Weeks of Gestation (Weeks Since LMP) 3 Weeks (5.8-71.2 mIU/mL) 4 Weeks (9.5-750 mIU/mL) 5 Weeks (217-7138 mIU/mL) 6 Weeks (158-60274 mIU/mL) 7 Weeks (3697-801864 mIU/mL) 8 Weeks (93036-160148 mIU/mL) 9 Weeks (12113-632734 mIU/mL) 10 Weeks (39620-556127 mIU/mL) 12 Weeks (92468-453856 mIU/mL) Referenced to 4th IS of [facility] Performed By: #### 4 537-7, 77197-1 #### [facility] CLIA [id number] [address] [place] [address] [place] Bacteria Bld Culton 03-13-20 Bacteria identified Cx Nom (Bld) CULTURE, BLOOD: No growth 5 days Normal [facility] Comment on above: Performed By: #### 6 00-7 ####[facility] [id number] [place] [address] [place] Bacteria identified Cx Nom (Bld) CULTURE, BLOOD: No growth 5 days Normal [facility] Comment on above: Performed By: #### 6 00-7 ####[facility] [id number] [place] [address] [place] CBC W Auto Differential pane l (Bld)on 03-13-2023 Basophils (Bld) [#/Vol] 0.03 10*3/uL Normal <0.11 [facility] Comment on above: Order Comment: Speci men Type: BLOOD SPECIMEN Order[facility] Address: [address] Performed By: #### 4 537-7, 92227-9 #### [facility] CLIA [id number] [address] [place] [address] [place] Basophils/100 WBC (Bld) 0.2 % Normal [facility] Comment on above: Order Comment: Speci men Type: BLOOD SPECIMEN [facility]: [facility] Address: [address] Performed By: #### 4 537-7, 10525-0 #### [facility] CLIA [id number] [address] [place] [address] [place] Differential cell count method Nom (Bld) Auto Normal [facility] Comment on above: Order Comment: Speci men Type: BLOOD SPECIMEN Order[facility] Facility: [facility] Address: [address] Performed By: #### 4 537-7, 04063-2 #### [facility] CLIA [id number] [address] [place] [address] [place] Eosinophils (Bld) [#/Vol] 10*3/uL Normal <0.46 [facility] Comment on above: Order Comment: Speci men Type: BLOOD SPECIMEN Ordering Facility: [facility] Address: [address] Performed By: #### 4 537-7, 70107-1 #### [facility] CLIA [id number] [address] [place] [address] [place] Eosinophils/100 WBC (Bld) 0.1 % Normal [facility] Comment on above: Order Comment: Speci men Type: BLOOD SPECIMEN Order[facility] Facility: [facility] Address: [address] Performed By: #### 4 537-7, 43587-7 #### [facility] CLIA [id number] [address] [place] [address] [place] Erythrocyte distribution width (RBC) [Ratio] 13.5 % Normal 11.5-15.0 [facility] Comment on above: Order Comment: Speci men Type: BLOOD SPECIMEN Order[facility] Facility: [facility] Address: [address] Performed By: #### 4 537-7, 81311-0 #### [facility] CLIA [id number] [address] [place] [address] [place] Hematocrit (Bld) [Volume fraction] 32.4 % Low 36.0-46.0 [facility] Comment on above: Order Comment: Speci men Type: BLOOD SPECIMEN Ordering Facility: [facility] Address: [address] Performed By: #### 4 537-7, 57055-4 #### [facility] CLIA [id number] [address] [place] [address] [place] Hemoglobin (Bld) [Mass/Vol] 10.5 g/dL Low 11.5-15.5 [facility] Comment on above: Order Comment: Speci men Type: BLOOD SPECIMEN Ordering Facility: [facility] Address: [address] Performed By: #### 4 537-7, 33242-9 #### [facility] CLIA [id number] [address] [place] [address] [place] Immature granulocytes (Bld) [#/Vol] 0.11 10*3/uL High <0.10 [facility] Comment on above: Order Comment: Speci men Type: BLOOD SPECIMEN Ordering Facility: [facility] Address: [address] Performed By: #### 4 537-7, 13111-6 #### [facility] CLIA [id number] [address] [place] [address] [place] Immature granulocytes/100 WBC (Bld) 0.8 % Normal [facility] Comment on above: Order Comment: Speci men Type: BLOOD SPECIMEN Ordering Facility: [facility] Address: [address] [place] [address] Performed By: #### 4 537-7, 28545-7 #### [facility] CLIA [id number] [address] [place] [address] [place] Lymphocytes (Bld) [#/Vol] 1.86 10*3/uL Normal 1.00-4.00 [facility] Comment on above: Order Comment: Speci men Type: BLOOD SPECIMEN Ordering Facility: [facility] Address: [address] [place] [address] Performed By: #### 4 537-7, 47384-4 #### [facility] CLIA [id number] [address] [place] [address] [place] Lymphocytes/100 WBC (Bld) 13.0 % Normal [facility] Comment on above: Order Comment: Speci men Type: BLOOD SPECIMEN Ordering Facility: [facility] Address: [address] [place] [address] Performed By: #### 4 537-7, 86129-3 #### [facility] CLIA [id number] [address] [place] [address] [place] MCH (RBC) [Entitic mass] 26.6 pg Normal 26.0-34.0 [facility] Comment on above: Order Comment: Speci men Type: BLOOD SPECIMEN Ordering Facility: [facility] Address: [address] [place] [address] Performed By: #### 4 537-7, 34383-6 #### [facility] CLIA [id number] [address] [place] [address] [place] MCHC (RBC) [Mass/Vol] 32.4 g/dL Normal 30.5-36.0 [facility] Comment on above: Order Comment: Speci men Type: BLOOD SPECIMEN Order[facility] Facility: [facility] Address: [address] [place] [address] Performed By: #### 4 537-7, 15705-2 #### [facility] CLIA [id number] [address] [place] [address] [place] [facility] MCV (RBC) [Entitic vol] 82.0 fL Normal 80.0-100.0 [facility] Comment on above: Order Comment: Speci men Type: BLOOD SPECIMEN Ordering Facility: [facility] Address: [address] [place] [address] Performed By: #### 4 537-7, 52547-6 #### [facility] CLIA [id number] [address] [place] [address] [place] Monocytes (Bld) [#/Vol] 1.09 10*3/uL High <0.87 [facility] Comment on above: Order Comment: Speci men Type: BLOOD SPECIMEN Ordering Facility: [facility] Address: [address] [place], [place] [address] Performed By: #### 4 537-7, 12045-7 #### [facility] CLIA [id number] [address] [place] [address] [place] Monocytes/100 WBC (Bld) 7.6 % Normal [facility] Comment on above: Order Comment: Speci men Type: BLOOD SPECIMEN Ordering Facility: [facility] Address: [address] [place], [place] [address] Performed By: #### 4 537-7, 42977-8 #### [facility] CLIA [id number] [address] [place] [address] [place] Neutrophils (Bld) [#/Vol] 11.15 10*3/uL High 1.45-7.50 [facility] [facility] Comment on above: Order Comment: Speci men Type: BLOOD SPECIMEN Ordering Facility: [facility] Address: [address] Performed By: #### 4 537-7, 57472-8 #### [facility] CLIA [id number] [address] [place] [address] [place] Neutrophils/100 WBC (Bld) 78.3 % Normal [facility] Comment on above: Order Comment: Speci men Type: BLOOD SPECIMEN Ordering Facility: [facility] Address: [address] Performed By: #### 4 537-7, 52169-6 #### [facility] CLIA [id number] [address] [place] [address] [place] Nucleated RBC (Bld) [#/Vol] 10*3/uL Normal <0.01 [facility] Comment on above: Order Comment: Speci men Type: BLOOD SPECIMEN Ordering Facility: [facility] Address: [address] [place], [place] [address] Performed By: #### 4 537-7, 39683-8 #### [facility] CLIA [id number] [address] [place] [address] [place] Nucleated RBC/100 WBC (Bld) [Ratio] 0.0 /100 WBC Normal [facility] Comment on above: Order Comment: Speci men Type: BLOOD SPECIMEN Ordering Facility: [facility] Address: [address] Performed By: #### 4 537-7, 48146-4 #### [facility] CLIA [id number] [address] [place] [address] [place] Platelet mean volume (Bld) [Entitic vol] 8.9 fL Low 9.0-12.7 [facility] Comment on above: Order Comment: Speci men Type: BLOOD SPECIMEN Ordering Facility: [facility] Address: [address] [place], [place] [address] Performed By: #### 4 537-7, 16242-9 #### [facility] CLIA [id number] [address] [place] [address] [place] Platelets (Bld) [#/Vol] 378 10*3/uL Normal 150-400 [facility] Comment on above: Order Comment: Speci men Type: BLOOD SPECIMEN Ordering Facility: [facility] Address: [address] [place] [address] Performed By: #### 4 537-7, 49254-3 #### [facility] CLIA [id number] [address] [place] [address] OF [place] RBC (Bld) [#/Vol] 3.95 10*6/uL Normal 3.90-5.20 [facility] Comment on above: Order Comment: Speci men Type: BLOOD SPECIMEN Ordering Facility: [facility] Address: [address] [place] [address] Performed By: #### 4 537-7, 69610-9 #### [facility] CLIA [id number] [address] [place] [address] [place] [facility] [place] WBC (Bld) [#/Vol] 14.26 10*3/uL High 3.70-11.00 [facility] Comment on above: Order Comment: Speci men Type: BLOOD SPECIMEN Ordering Facility: [facility] Address: [address] [place] [address] Performed By: #### 4 537-7, 90661-7 #### [facility] CLIA [id number] [address] [place] [address] [place] CONSULT PROGon 03-13-2023 CONSULT PROG HNO ID: [id number] Author: Robyn Bolton RPh Service: Pharmacy Author [...] there are questions. Robyn Bolton RPh Normal [facility] CONSULT PROG HNO ID: [id number] Author: Ev Pryor RPh Service: Pharmacy Author [...] questions, please contact Ev Pryor RPh at [phone]. Age: [age] year old Allergies: ALLERGIES Allergen [...] Vancomycin Levels: No results found for: CARLY Pryor, [facility] Normal [facility] CRP [Mass/Vol] 20.0 mg/dL High <0.9 [facility] Comment on above: Order Comment: Speci men Type: BLOOD SPECIMEN Ordering Facility: [facility] Address: [address] [place], [place] [address] Performed By: #### 4 537-7, 16866-6 #### [facility] CLIA [id number] [address] [place] [address] [place] Comprehensive metabolic 2000 panelon 03-13-2023 Albumin [Mass/Vol] 3.6 g/dL Low 3.9-4.9 [facility] Comment on above: Order Comment: Speci men Type: BLOOD SPECIMEN Ordering Facility: [facility] Address: [address] [place], [place] [address] Performed By: #### 4 537-7, 47034-2 #### [facility] CLIA [id number] [address] [place] [address] [place] ALP [Catalytic activity/Vol] 101 U/L Normal 34-123 [facility] Comment on above: Order Comment: Speci men Type: BLOOD SPECIMEN Ordering Facility: [facility] Address: [address] Performed By: #### 4 537-7, 60341-1 #### [facility] CLIA [id number] [address] [place] [address] [place] ALT [Catalytic activity/Vol] 22 U/L Normal 7-38 [facility] Comment on above: Order Comment: Speci men Type: BLOOD SPECIMEN Ordering Facility: [facility] Address: [address] Performed By: #### 4 537-7, 20733-3 #### [facility] CLIA [id number] [address] [place] [address] [place] Anion gap [Moles/Vol] 14 mmol/L Normal 9-18 [facility] Comment on above: Order Comment: Speci men Type: BLOOD SPECIMEN Ordering Facility: [facility] Address: [address] Performed By: #### 4 537-7, 70638-7 #### [facility] CLIA [id number] [address] [place] [address] [place] AST [Catalytic activity/Vol] 16 U/L Normal 13-35 [facility] Comment on above: Order Comment: Speci men Type: BLOOD SPECIMEN Ordering Facility: [facility] Address: [address] Performed By: #### 4 537-7, 26200-3 #### [facility] CLIA [id number] [address] [place] [address] [place] Bilirubin [Mass/Vol] 0.2 mg/dL Normal 0.2-1.3 [facility] Comment on above: Order Comment: Speci men Type: BLOOD SPECIMEN Ordering Facility: [facility] Address: [address] Performed By: #### 4 537-7, 51310-6 #### [facility] CLIA [id number] [address] [place] [address] [place] Calcium [Mass/Vol] 8.8 mg/dL Normal 8.5-10.2 [facility] Comment on above: Order Comment: Speci men Type: BLOOD SPECIMEN Ordering Facility: [facility] Address: [address] Performed By: #### 4 537-7, 39206-2 #### [facility] CLIA [id number] [address] [place] [address] [place] Chloride [Moles/Vol] 103 mmol/L Normal 97-105 [facility] Comment on above: Order Comment: Speci men Type: BLOOD SPECIMEN Ordering Facility: [facility] Address: [address] [place], [place] [address] Performed By: #### 4 537-7, 52032-7 #### [facility] CLIA [id number] [address] [place] [address] [place] CO2 [Moles/Vol] 19 mmol/L Low 22-30 [facility] Comment on above: Order Comment: Speci men Type: BLOOD SPECIMEN Ordering Facility: [facility] Address: [address] [place] [address] Performed By: #### 4 537-7, 07076-1 #### [facility] CLIA [id number] [address] [place] [address] [place] Creatinine [Mass/Vol] 0.77 mg/dL Normal 0.58-0.96 [facility] Comment on above: Order Comment: Speci men Type: BLOOD SPECIMEN Ordering Facility: [facility] Address: [address] Performed By: #### 4 537-7, 97594-0 #### [facility] CLIA [id number] [address] [place] [address] [place] ESTIMATED GLOMERULAR FILTRATION RATE 107 mL/min/1.73m??? Normal >=60 [facility] Comment on above: Order Comment: Tee francisco Type: BLOOD SPECIMEN Ordering Facility: [facility] Address: [address] [place], [place] [address] Result Comment: Marisa mated Glomerular Filtration Rate [...] accurately reflect actual GFR. Performed By: #### 4 537-7, 99917-4 #### [facility] CLIA [id number] [address] [place] [address] [place] Glucose [Mass/Vol] 126 mg/dL High 74-99 [facility] Comment on above: Order Comment: Tee francisco Type: BLOOD SPECIMEN Ordering Facility: [facility] Address: [address] [place] [address] Result Comment: The [place] [employer] (ADA) provides guidance for cutoff [...] Standards of Medical Care in Diabetes 2016, [place] [employer]. Diabetes Care. 2016.39(Suppl 1). Performed By: #### 4 537-7, 63549-2 #### [facility] CLIA [id number] [address] [place] [address] [place] Potassium [Moles/Vol] 3.3 mmol/L Low 3.7-5.1 [facility] Comment on above: Order Comment: Speci men Type: BLOOD SPECIMEN Ordering Facility: [facility] Address: [address] Performed By: #### 4 537-7, 18521-4 #### [facility] CLIA [id number] [address] [place] [address] [place] Protein [Mass/Vol] 6.5 g/dL Normal 6.3-8.0 [facility] Comment on above: Order Comment: Speci men Type: BLOOD SPECIMEN Ordering Facility: [facility] Address: [address] [place] [address] Performed By: #### 4 537-7, 14605-9 #### [facility] CLIA [id number] [address] [place] [address] [place] Sodium [Moles/Vol] 136 mmol/L Normal 136-144 [facility] Comment on above: Order Comment: Speci men Type: BLOOD SPECIMEN Ordering Facility: [facility] Address: [address] [place], [place] [address] Performed By: #### 4 537-7, 66221-4 #### [facility] CLIA [id number] [facility] [place] [address] [place] Urea nitrogen [Mass/Vol] 8 mg/dL Normal 7-21 [facility] Comment on above: Order Comment: Speci men Type: BLOOD SPECIMEN Ordering Facility: [facility] Address: [address] Performed By: #### 4 537-7, 35690-8 #### [facility] CLIA [id number] [facility] [place] [address] [place] ED NOTEon 03-13-2023 ED NOTE HNO ID: [id number] Author: Kj Carter RN Service: Emergency Medicine Author Type: Registered Nurse Type: ED Notes Filed: 03/13/2023 11:48 AM Note Text: Pt was to be a tranfers from outside hospital for admission, left AMA because felt that it was taking to long for transfer. Elevated WBC, back pain, nausea and vomiting, no diarrhea, no SOB 8 weeks . Normal [facility] ED PROV NOTEon 03-13-2023 ED PROV NOTE HNO ID: [id number] Author: Kelli Musa MD Service: Emergency Medicine [...] fevers, she opted to report to the [place] ED. While there, she was noted to be febrile and have a leukocytosis to 20,000 and she was accepted for admission to . While awaiting transfer, she opted to leave AMA and report to our ED for admission. [...] Abnormal; Notable for the following components: Specific [place], Ur 1.032 (*) 1.005 - 1.030 Protein, Urine 1+ (*) Trace, (more content not included)... Normal [facility] ESR Westergren method (Bld) [Velocity]on 03-13-2023 ESR (Bld) [Velocity] 65 mm/h High 0-20 [facility] Comment on above: Order Comment: Speci men Type: BLOOD SPECIMEN Ordering Facility: [facility] Address: [address] [place] [address] Performed By: #### 4 537-7, 04448-8 #### [facility] CLIA [id number] [address] [place] [address] [place] Ferritin SerPl-mCncon 2022 Ferritin [Mass/Vol] 149.0 ng/mL Normal 14.7-205.1 [facility] Comment on above: Order Comment: Speci men Type: BLOOD SPECIMEN Ordering Facility: [facility] Address: [address] [place] [address] Performed By: #### 1 9123-9, 43169-3 #### [facility] CLIA [id number] [address] [place] [address] [place] HISTORY PHYSICALon HISTORY PHYSICAL HNO ID: [id number] Author: Manoj Ramos MD Service: General Internal Medicine Author Type: Physician Type: HANDP Filed: 03/13/2023 8:37 PM Note Text: HISTORY AND PHYSICAL GENERAL INTERNAL MEDICINE After 5 PM on weekdays and after 3 PM on weekends page [employer] [facility] at [facility] [phone] Admit Date: 03/13/2023 SERVICE DATE: 03/13/2023 SERVICE [...] flank pain, and she was transferred to [facility] ED. After drawing blood and taking [...] without mu (more content not included)... Normal [facility] Lipase SerPl-cCncon 03-13-20 23 Lipase [Catalytic activity/Vol] 19 U/L Normal 16-61 [facility] Comment on above: Order Comment: Speci men Type: BLOOD SPECIMEN Ordering Facility: [facility] Address: [address] [place] [address] Performed By: #### 4 537-7, 10779-1 #### [facility] CLIA [id number] [address] [facility] [address] [facility] NURSING PROGon 03-13-2023 NURSING PROG HNO ID: [id number] Author: Mini Kaplan RN Service: ? Author Type: Registered Nurse Type: Nursing Progress Note Filed: 03/13/2023 5:11 PM Note Text: Transfer Note: PATIENT NAME: Qian Clements Patient Location: [place] [address] [address] Room: [place] [address] Patient transferred into room/unit [facility] in stable condition. Actions taken: Patient belongings with patient, bed low and locked, side rails up X2, and call light within reach. Normal [facility] Urinalysis complete pnl Uron 03-13-2023 Urinalysis complete [...] j carlos: ORGANISM ID: 1 Lactobacillus jensenii [place] count unreliable due to antimicrobial inhibition No further workup Normal [facility] Comment on above: Order Comment: Speci men Type: URINE SPECIMENOrdering Facility: [facility] Address: [address] [place] [address] Performed By: #### 2 4356-8 ####[facility] [id number] [id number] [id number] [place] XR CHEST 1V [...] Stable nonenlarged cardiomediastinal silhouette. IMPRESSION: See result. Care Services Manager: PSCB Transcribe Date/Time: Mar 13 2023 1:50P Dictated by : YULY GAONA MD This examination was interpreted and the report reviewed and electronically signed by: YULY GAONA MD on Mar 13 2023 1:51PM EST [id number] Normal [facility] CBC with Auto Differentialon 03-07-2023 Basophils (Bld) [#/Vol] 0.00 10*3/uL [facility] Basophils/100 WBC (Bld) 0 % 0 - 2 % [facility] Differential Type YES [facility] Eosinophils (Bld) [#/Vol] 0.00 10*3/uL [facility] Eosinophils/100 WBC (Bld) 0 % 0 - 5 % [facility] Erythrocyte distribution width (RBC) [Ratio] 13.8 % 12.1 - 15.2 % [facility] Hematocrit (Bld) [Volume fraction] 33.9 % Low 36 - 46 % [facility] Hemoglobin (Bld) [Mass/Vol] 11.3 g/dL Low 12.0 - 16.0 g/dL [facility] Interpretation and review of laboratory results Abnormal [facility] Lymphocytes/100 WBC (Bld) 14 % Low 15 - 40 % [facility] Lymphocytes/100 WBC (Bld) 1.30 % [facility] MCH (RBC) [Entitic mass] 27.2 pg 26 - 34 pg [facility] MCHC (RBC) [Mass/Vol] 33.4 g/dL 31 - 37 g/dL [facility] MCV (RBC) [Entitic vol] 81.4 fL 80 - 100 fL [facility] Monocytes/100 WBC (Bld) 6 % 4 - 8 % [facility] Monocytes/100 WBC (Bld) 0.60 % [facility] Neutrophils/100 WBC (Bld) 80 % High 47 - 75 % [facility] Platelets (Bld) [#/Vol] 407 10*3/uL [facility] RBC (Bld) [#/Vol] 4.17 10*6/uL 4.0 - 5.2 m/uL [facility] Segmented neutrophils/100 WBC (Bld) 7.50 % High [facility] WBC other (Bld) [#/Vol] 9.4 [facility] CMPon 03-07-2023 Albumin [Mass/Vol] 3.8 g/dL 3.5 - 5.2 g/dL [facility] ALP [Catalytic activity/Vol] 81 U/L 35 - 104 U/L [facility] ALT [Catalytic activity/Vol] 8 U/L 5 - 33 U/L [facility] Anion gap [Moles/Vol] 11 mmol/L 9 - 17 mmol/L [facility] AST [Catalytic activity/Vol] 10 U/L NINF - 32 U/L [facility] Bilirubin [Mass/Vol] 0.3 mg/dL 0.3 - 1 .2 mg/dL [facility] Calcium [Mass/Vol] 8.8 mg/dL 8.6 - 10. 4 mg/dL [facility] Chloride [Moles/Vol] 103 mmol/L 98 - 10 7 mmol/L [facility] CO2 [Moles/Vol] 22 mmol/L 20 - 31 mmol/L [facility] Creatinine [Mass/Vol] 0.7 mg/dL 0.5 - 0.9 mg/dL [facility] GFR/1.73 sq M.predicted MDRD (S/P/Bld) [Vol rate/Area] - PINF [facility] Comment on above: These results are not [...] 131 mg/dL High 70 - 99 mg/dL [facility] Interpretation and review of laboratory results Abnormal [facility] Potassium [Moles/Vol] 4.1 mmol/L 3.7 - 5.3 mmol/L [facility] Protein [Mass/Vol] 6.7 g/dL 6.4 - 8.3 g/dL [facility] Sodium [Moles/Vol] 136 mmol/L 135 - 144 mmol/L [facility] Urea nitrogen [Mass/Vol] 8 mg/dL 6 - 20 mg/dL [facility] Urea nitrogen/Creatinine [Mass ratio] 11 mg/mg 9 - 20 [facility] Microscopic Urinalysison - [facility] Bacteria LM Ql (Urine sed) RARE Abnormal None [facility] Epithelial cells LM.HPF (Urine sed) [#/Area] 20 TO 50 /HPF [facility] Interpretation and review of laboratory results Abnormal [facility] RBC LM.HPF (Urine sed) [#/Area] 0 TO 2 [facility] WBC LM.HPF (Urine sed) [#/Area] NONE SEEN 0 /HPF [facility] , Urineon HCG ( test) Ql (U) Positive Abnormal NEGATIVE [facility] Comment on above: If HCG results do no t concur with clinical observations, additional testing to confirm result is recommended. This test is not labeled for use as a tumor marker. Interpretation and review of laboratory results Abnormal [facility] Urinalysison 03-07-2023 Bilirubin Ql (U) Negative NEGATIVE [facility] Clarity (U) Clear Clear [facility] Color (U) Yellow Yellow [facility] Comment [facility] Glucose Test strip (U) [Mass/Vol] Negative NEGATIVE mg/dL [facility] Hemoglobin Auto test strip Ql (U) TRACE Abnormal NEGATIVE [facility] Interpretation and review of laboratory results Abnormal [facility] Ketones (U) [Mass/Vol] Negative NEGATIVE mg/dL [facility] Leukocyte esterase Test strip Ql (U) Negative NEGATIVE [facility] Nitrite Ql (U) Negative NEGATIVE [facility] pH (U) 7.0 [pH] 5.0 - 8.0 [facility] Protein (U) [Mass/Vol] Negative NEGATIVE mg/dL [facility] Specific gravity (U) [Rel density] 1.015 1.005 - 1.030 [facility] Urobilinogen Qn (U) Normal 0.0 - 1. 0 EU/dL [facility] US PELVIS AND TRANSVAGon US PELVIS AND [...] Unremarkable pelvic ultrasound. Electronically authenticated by: PILAR LYLEJACKVAL Date: 2023-01-03 10:47 Normal [facility] Strep Screen Group A Throato n 11-14-2022 S. pyogenes Ag Ql (Throat) Negative NEGATIVE [facility] Comment on above: Rapid Strep A negati ve. A negative Rapid Group A Strep Screen result does not rule out the possibility of Group A Streptococci in the specimen. A Group A Strep DNA test is available upon request. Source .THROAT SWAB [facility] Drug Scr, Abuse, Uron 2021 Amphetamine(s),Ur Negative Normal [facility] Comment on above: Result Comment: (Positive cutoff 1000 ng/mL) Performed By: #### Lydia CALDWELL, URTPRT #### [facility] [address] [place] [address] Cabana Attendant: Gino Wing MD Barbiturate(s),Ur Negative Normal NEG [facility] Comment on above: Result Comment: (Positive cutoff 200 ng/mL) Performed By: #### Lydia CALDWELL, URTPRT #### [employer] [address] [place] [address] Cabana Attendant: Gino Wing MD Benzodiazepine(s) Negative Normal [facility] Comment on above: Result Comment: (Positive cutoff 200 ng/mL) Performed By: #### Lydia AU, URTPRT #### [facility] [address] [place] [address] Cabana Attendant: Gino Wing MD Cannabinoid(s),Ur Negative Normal [facility] Comment on above: Result Comment: (Positive cutoff 50 ng/mL) Performed By: #### Lydia AU, URTPRT #### [facility] [address] [place] [address] Cabana Attendant: Gino Wing MD Cocaine Metabolite Negative Normal NEG [facility] Comment on above: Result Comment: (Positive cutoff 300 ng/mL) Performed By: #### Lydia AU, URTPRT #### [facility] [address] [place] [address] Cabana Attendant: Gino Wing MD Fentanyl, Urine Positive Abnormal NEG [facility] Comment on above: Result Comment: (Positive cutoff 5 ng/ml) Performed By: #### Lydia AU, URTPRT #### [employer] [address] [place] [address] Cabana Attendant: Gino Wing MD Interpretive Info Assay provides medic al screening only. The absence of expected drug(s) and/or Normal [facility] Comment on above: Result Comment: meta bolite(s) may indicate diluted or adulterated urine, limitations of testing or timing of collection. Testing for legal purposes should be confirmed by another method. To request confirmation of test result, please call the lab within 7 days of sample submission. Performed By: #### Lydia CALDWELL, URTPRT #### [facility] [employer] [address] [place] [address] Cabana Attendant: Gino Wing MD Methadone Ql (U) Negative Normal NEG [facility] Comment on above: Result Comment: (Positive cutoff 300 ng/mL) Performed By: #### Lydia CALDWELL, URTPRT #### [employer] [address] [place] [address] Cabana Attendant: Gino Wing MD Opiate(s), Ur Negative Normal NEG [facility] Comment on above: Result Comment: (Positive cutoff 300 ng/mL) Performed By: #### Lydia CALDWELL, URTPRT #### [facility] [employer] [address] [place] [address] Cabana Attendant: Gino Wing MD Oxycodone, Urine Positive Abnormal NEG [facility] Comment on above: Result Comment: (Positive cutoff 100 ng/mL) Performed By: #### Lydia AU, URTPRT #### [facility] [address] [place], [place] [id number] Cabana Attendant: Gino Wing MD Phencyclidine, Ur Negative Normal NEG [facility] Comment on above: Result Comment: (Positive cutoff 25 ng/mL) Performed By: #### D AU, URTPRT #### [facility] [place], [place] [phone] Cabana Attendant: Gino Wing MD SURGICAL PATHOLOGY REPORTon 05-27-2022 Surgical Pathology Report -- Diagnosis -- PLACENTA, DELIVERED: -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 -PLACENTAL DISC IS UNREMARKABLE. Aaron Arteaga M.D. Electronically Signed Out steph05/27/2022 Clinical Information Pre-op Diagnosis: , ECLAMPSIA, HX [...] SURGICAL PATHOLOGY CONSULTATION Patient Name: QIAN CLEMENTS [facility]sey[facility]iki [facility] Rec: [id number] Path Number: [id number] [facility] ANATOMIC PATHOLOGY [address] [place] [id number] [facility] CBCon 05-26-2022 Erythrocyte distribution width (RBC) [Ratio] 12.4 % Normal 11.8-14.4 [facility] Comment on above: Performed By: #### C BC, CP #### [facility] [address] [place] [id number] Cabana Attendant: Gino Wing MD Hematocrit (Bld) [Volume fraction] 28.6 % Low 36.3-47.1 [facility] Comment on above: Performed By: #### C BC, CP #### [address] [address] Cabana Attendant: Gino Wing MD Hemoglobin (Bld) [Mass/Vol] 9.6 g/dL Low 11.9-15.1 [facility] Comment on above: Performed By: #### C BC, CP #### [address] [address] Cabana Attendant: Gino Wing MD MCH (RBC) [Entitic mass] 30.0 pg Normal 25.2-33.5 [facility] Comment on above: Performed By: #### C BC, CP #### [address] [phone] Cab[place] Attendant: Gino Wing MD MCHC (RBC) [Mass/Vol] 33.6 g/dL Normal 28.4-34.8 [facility] Comment on above: Performed By: #### C BC, CP #### [address] [address] Cab[place] Attendant: Gino Wing MD MCV (RBC) [Entitic vol] 89.4 fL Normal 82.6-102.9 [facility] Comment on above: Performed By: #### C BC, CP #### [facility] [address] [place] [address] [place] [address] Cabana Attendant: Gino Wing MD NRBC Automated 0.0 per 100 WBC Normal 0.0 [facility] Comment on above: Performed By: #### C BC, CP #### [facility] [address] [place] [address] Cabana Attendant: Gino Wing MD Platelet mean volume (Bld) [Entitic vol] 9.6 fL Normal 8.1-13.5 [facility] Comment on above: Performed By: #### C BC, CP #### [facility] [address] [place] [phone] Cabana Attendant: Gino Wing MD Platelets (Bld) [#/Vol] 321 10*3/uL Normal 138-453 [facility] Comment on above: Performed By: #### C BC, CP #### [facility] [address] [place] [phone] Cabana Attendant: Gino Wing MD RBC (Bld) [#/Vol] 3.20 10*6/uL Low 3.95-5.11 [facility] Comment on above: Performed By: #### C BC, CP #### [facility] [address] [place] [phone] Cabana Attendant: Gino Wing MD WBC (Bld) [#/Vol] 13.1 10*3/uL High 3.5-11.3 [facility] Comment on above: Performed By: #### C BC, CP #### [facility] [address] [place] [address] Cabana Attendant: Gino Wing MD Hematocrit (Bld) [Volume fraction] 28.6 % Low 36.3 - 47.1 % [facility] Hemoglobin (Bld) [Mass/Vol] 9.6 g/dL Low 11.9 - 15.1 g/dL [facility] Interpretation and review of laboratory results Abnormal [facility] MCH (RBC) [Entitic mass] 30.0 pg 25.2 - 33.5 pg [facility] MCHC (RBC) [Mass/Vol] 33.6 g/dL 28.4 - 34.8 g/dL [facility] MCV (RBC) [Entitic vol] 89.4 fL 82.6 - 102.9 fL [facility] NRBC Automated 0.0 0.0 per 100 WBC [facility] Platelet distribution width (Bld) [Ratio] 12.4 % 11.8 - 14.4 % [facility] Platelet mean volume (Bld) [Entitic vol] 9.6 fL 8.1 - 13.5 fL [facility] Platelets (Bld) [#/Vol] 321 10*3/uL [facility] RBC (Bld) [#/Vol] 3.20 10*6/uL Low 3.95 - 5.1 1 m/uL [facility] WBC (Bld) [#/Vol] 13.1 10*3/uL High [facility] Comp Metabolic Profon 2021 Bilirubin [Mass/Vol] mg/dL Low 0.3-1.2 [facility] Comment on above: Performed By: #### C BC, CP #### [facility] [address] [place] [phone] Cabana Attendant: Gino Wing MD Albumin [Mass/Vol] 2.4 g/dL Low 3.5-5.2 [facility] Comment on above: Performed By: #### C DHARA, CP #### [facility] [address] [place] [address] [phone] Cabana Attendant: Gino Wing MD Albumin/Glob Ratio 0.9 Low 1.0-2.5 [facility] Comment on above: Performed By: #### C DHARA, CP #### [facility] [address] [place] [address] [phone] Cabana Attendant: Gino Wing MD Alkaline Phos 79 U/L Normal 35-104 [facility] Comment on above: Performed By: #### C BC, CP #### [address] [address] Cabana Attendant: Gino Wing MD ALT [Catalytic activity/Vol] 10 U/L Normal 5-33 [facility] Comment on above: Performed By: #### C BC, CP #### [address] [address] Cabana Attendant: Gino Wing MD Anion gap [Moles/Vol] 12 mmol/L Normal 9-17 [facility] Comment on above: Performed By: #### C BC, CP #### [address] [address] Cabana Attendant: Gino Wing MD AST [Catalytic activity/Vol] 20 U/L Normal <32 [facility] Comment on above: Performed By: #### C BC, CP #### [address] [address] Cabana Attendant: Gino Wing MD Calcium [Mass/Vol] 6.6 mg/dL Low 8.6-10.4 [facility] Comment on above: Performed By: #### C BC, CP #### [address] [address] Cabana Attendant: Gino Wing MD Chloride [Moles/Vol] 101 mmol/L Normal 98-107 [facility] Comment on above: Performed By: #### C BC, CP #### [address] [address] Cabana Attendant: Gino Wing MD CO2 [Moles/Vol] 19 mmol/L Low 20-31 [facility] Comment on above: Performed By: #### C BC, CP #### [address] [address] Cabana Attendant: Gino Wing MD Creatinine [Mass/Vol] 0.60 mg/dL Normal 0.50-0.90 [facility] Comment on above: Performed By: #### C BC, CP #### [address] [address] Cabana Attendant: Gino Wing MD GFR/1.73 sq M.predicted among non-blacks MDRD (S/P/Bld) [Vol rate/Area] mL/min/{1.73_m2} Normal >60 [facility] Comment on above: Result Comment: Effective May [...] Performed By: #### C BC, CP #### [facility] [address] [place] [address] Cabana Attendant: Gino Wing MD Glucose [Mass/Vol] 103 mg/dL High 70-99 [facility] Comment on above: Performed By: #### C BC, CP #### [facility] [address] [place] [address] Cabana Attendant: Gino Wing MD Potassium [Moles/Vol] 4.3 mmol/L Normal 3.7-5.3 [facility] Comment on above: Performed By: #### C BC, CP #### [facility] [address] [place] [address] Cabana Attendant: Gino Wing MD Protein [Mass/Vol] 5.2 g/dL Low 6.4-8.3 [facility] Comment on above: Performed By: #### C BC, CP #### [facility] [address] [place] [address] Cab[place] Attendant: Gino Wing MD Sodium [Moles/Vol] 132 mmol/L Low 135-144 [facility] Comment on above: Performed By: #### C BC, CP #### [address] [address] [place] Attendant: Gino Wing MD Urea nitrogen [Mass/Vol] 6 mg/dL Normal 6-20 [facility] Comment on above: Performed By: #### C BC, CP #### [address] [address] Cab[place] Attendant: Gino Wing MD ALT [Catalytic activity/Vol] U/L Low 5-33 [facility] Comment on above: Performed By: #### C DP, CP #### [address] [address] Cabana Attendant: Gino Wing MD Bilirubin [Mass/Vol] mg/dL Low 0.3-1.2 [facility] Comment on above: Performed By: #### C DP, CP #### [address] [address] Cabana Attendant: Gino Wing MD Albumin [Mass/Vol] 3.1 g/dL Low 3.5-5.2 [facility] Comment on above: Performed By: #### C DP, CP #### [address] [address] Cab[place] Attendant: Gino iWng MD Albumin/Glob Ratio 1.1 Normal 1.0-2.5 [facility] Comment on above: Performed By: #### C DP, CP #### [address] [address] Cabana Attendant: Gino Wing MD Alkaline Phos 82 U/L Normal 35-104 [facility] Comment on above: Performed By: #### C DP, CP #### [address] [address] Cabana Attendant: Gino Wing MD Anion gap [Moles/Vol] 13 mmol/L Normal 9-17 [facility] Comment on above: Performed By: #### C DP, CP #### [address] [address] Cab[place] Attendant: Gino Wing MD AST [Catalytic activity/Vol] 17 U/L Normal <32 [facility] Comment on above: Performed By: #### C DP, CP #### [address] [address] Cab[place] Attendant: Gino Wing MD Calcium [Mass/Vol] 6.6 mg/dL Low 8.6-10.4 [facility] Comment on above: Performed By: #### C DP, CP #### [address] [address] Cab[place] Attendant: Gino Wing MD Chloride [Moles/Vol] 102 mmol/L Normal 98-107 [facility] Comment on above: Performed By: #### C DP, CP #### [address] [address] Cabana Attendant: Gino Wing MD CO2 [Moles/Vol] 19 mmol/L Low 20-31 [facility] Comment on above: Performed By: #### C DP, CP #### [address] [address] Cabana Attendant: Gino Wing MD Creatinine [Mass/Vol] 0.57 mg/dL Normal 0.50-0.90 [facility] Comment on above: Performed By: #### C DP, CP #### [address] [address] Cabana Attendant: Gino Wing MD GFR/1.73 sq M.predicted among non-blacks MDRD (S/P/Bld) [Vol rate/Area] mL/min/{1.73_m2} Normal >60 [facility] Comment on above: Result Comment: Effective May [...] Performed By: #### C DP, CP #### [address] [address] Cabana Attendant: Gino Wing MD Glucose [Mass/Vol] 109 mg/dL High 70-99 [facility] Comment on above: Performed By: #### C DP, CP #### [facility] [address] [place] [address] Cabana Attendant: Gino Wing MD Potassium [Moles/Vol] 4.2 mmol/L Normal 3.7-5.3 [facility] Comment on above: Performed By: #### C DP, CP #### [facility] [address] [place] [address] Cabana Attendant: Gino Wing MD Protein [Mass/Vol] 6.0 g/dL Low 6.4-8.3 [facility] Comment on above: Performed By: #### C DP, CP #### [facility] [address] [place] [address] Cabana Attendant: Gino Wing MD Sodium [Moles/Vol] 134 mmol/L Low 135-144 [facility] Comment on above: Performed By: #### C DP, CP #### [facility] [address] [place] [address] Cabana Attendant: Gino Wing MD Urea nitrogen [Mass/Vol] 6 mg/dL Normal 6-20 [facility] Comment on above: Performed By: #### C DP, CP #### [facility] [address] [place] [phone] Cabana Attendant: Gino Wing MD [facility] Metabolic Pane [facility] 05-26-2022 Albumin [Mass/Vol] 2.4 g/dL Low 3.5 - 5.2 g/dL [facility] Albumin/Globulin [Mass ratio] 0.9 {ratio} Low 1 - 2.5 [facility] ALP (Bld) [Catalytic activity/Vol] 79 U/L 35 - 104 U/L [facility] ALT [Catalytic activity/Vol] 10 U/L 5 - 33 U/L [facility] Anion gap [Moles/Vol] 12 mmol/L 9 - 17 mmol/L [facility] AST [Catalytic activity/Vol] 20 U/L NINF - 32 U/L [facility] Bilirubin [Mass/Vol] mg/dL Low 0.3 - 1 .2 mg/dL [facility] Calcium [Mass/Vol] 6.6 mg/dL Low 8.6 - 10. 4 mg/dL [facility] Chloride [Moles/Vol] 101 mmol/L 98 - 10 7 mmol/L [facility] CO2 [Moles/Vol] 19 mmol/L Low 20 - 31 mmol/L [facility] Creatinine [Mass/Vol] 0.6 mg/dL 0.5 - 0.9 mg/dL [facility] GFR/1.73 sq M.predicted MDRD (S/P/Bld) [Vol rate/Area] - PINF [facility] Comment on above: Effective May 24, 2022 [...] 103 mg/dL High 70 - 99 mg/dL [facility] Interpretation and review of laboratory results Abnormal [facility] Potassium [Moles/Vol] 4.3 mmol/L 3.7 - 5.3 mmol/L [facility] Protein [Mass/Vol] 5.2 g/dL Low 6.4 - 8.3 g/dL [facility] Sodium [Moles/Vol] 132 mmol/L Low 135 - 144 mmol/L [facility] Urea nitrogen (BldV) [Mass/Vol] 6 mg/dL 6 - 20 mg/dL [facility] Protein / Creatinine Ratio, Urineon 05-26-2022 Creatinine, Ur 33.9 mg/dL 28 - 217 mg/dL [facility] Interpretation and review of laboratory results Abnormal [facility] Protein (U) [Mass/Vol] 26 mg/dL [facility] Comment on above: No normal range esta blished. Urine Total Protein Creatinine Ratio 0.77 High 0 - 0.2 [facility] Protein,Tot,[place] 2021 Creatinine [Mass/Vol] 33.9 mg/dL Normal 28.0-217.0 [facility] Comment on above: Performed By: #### Lydia CALDWELL URTPRT #### [facility] [address] [place] [address] Cabana Attendant: Gino Wing MD Tot Prot. Conc. 26 mg/dL Normal [facility] Comment on above: Result Comment: No n ormal range established. Performed By: #### D JAVI URTPRT #### [facility] [place], [place] [phone] Cabana Attendant: Gino Wing MD TP/Cre Ratio 0.77 High 0.00-0.20 [facility] Comment on above: Performed By: #### Lydia CALDWELL URTPRT #### [facility] [place], [place] [phone] Cabana Attendant: MD Estrella Ramos Ab Screenon 05-26 T.pallidum Ab Screen Non-Reactive Normal NR Me [facility] Comment on above: Result Comment: T. pallidum antibodies are not detected. There is no serological evidence of infection with T. pallidum (early primary syphilis cannot be excluded). Retest in 2-4 weeks if syphilis is clinically suspect. Performed By: #### C DHARA, CP #### [address] [phone] Cabana Attendant: Gino Wing MD APTTon 05-25-2022 aPTT Coag (Bld) [Time] 24.7 s Normal 20.5-30.5 [facility] Comment on above: Result Comment: IV Heparin Therapy Range: 48.6-77.8 Performed By: #### C DHARA, CP #### [address] [phone] Cabana Attendant: Gino Wing MD aPTT Coag (Bld) [Time] 24.7 s [facility] Comment on above: IV Heparin Therapy Range: 48.6-77.8 [facility] 05-25-2022 Erythrocyte distribution width (RBC) [Ratio] 12.6 % Normal 11.8-14.4 [facility] Comment on above: Performed By: #### M G, FIB, LD, URI, HAPT, CBC, CP, PTT, PT #### [address] [phone] Cabana Attendant: Gino Wing MD Hematocrit (Bld) [Volume fraction] 31.0 % Low 36.3-47.1 [facility] Comment on above: Performed By: #### M G, FIB, LD, URI, HAPT, CBC, CP, PTT, PT #### [address] [phone] Cabana Attendant: Gino Wing MD Hemoglobin (Bld) [Mass/Vol] 10.4 g/dL Low 11.9-15.1 [facility] Comment on above: Performed By: #### M G, FIB, LD, URI, HAPT, CBC, CP, PTT, PT #### [place] [address] Cabana Attendant: Gino Wing MD MCH (RBC) [Entitic mass] 29.5 pg Normal 25.2-33.5 [facility] Comment on above: Performed By: #### M G, FIB, LD, URI, HAPT, CBC, CP, PTT, PT #### [address] [address] Cabana Attendant: Gino Wing MD [facility] ([facility]) [Mass/Vol] 33.5 g/dL Normal 28.4-34.8 [facility] Comment on above: Performed By: #### M G, FIB, LD, URI, HAPT, CBC, CP, PTT, PT #### [place] [address] Cabana Attendant: Gino Wing MD MCV (RBC) [Entitic vol] 87.8 fL Normal 82.6-102.9 [facility] Comment on above: Performed By: #### M G, FIB, LD, URI, HAPT, CBC, CP, PTT, PT #### [place] [address] Cabana Attendant: Gino Wing MD NRBC Automated 0.0 per 100 WBC Normal 0.0 [facility] Comment on above: Performed By: #### M G, FIB, LD, URI, HAPT, CBC, CP, PTT, PT #### [place] [address] Cabana Attendant: Gino Wing MD Platelet mean volume (Bld) [Entitic vol] 9.6 fL Normal 8.1-13.5 [facility] Comment on above: Performed By: #### M G, FIB, LD, URI, HAPT, CBC, CP, PTT, PT #### [facility] [place], [place] [phone] Cab[place] Attendant: Gino Wing MD Platelets (Bld) [#/Vol] 343 10*3/uL Normal 138-453 [facility] Comment on above: Performed By: #### M G, FIB, LD, URI, HAPT, CBC, CP, PTT, PT #### [facility] [address] [place] [address] [phone] Cabana Attendant: Gino Wing MD RBC (Bld) [#/Vol] 3.53 10*6/uL Low 3.95-5.11 [facility] Comment on above: Performed By: #### M G, FIB, LD, URI, HAPT, CBC, CP, PTT, PT #### [address] [phone] Cabana Attendant: Gino Wing MD WBC (Bld) [#/Vol] 13.2 10*3/uL High 3.5-11.3 [facility] Comment on above: Performed By: #### M G, FIB, LD, URI, HAPT, CBC, CP, PTT, PT #### [address] [address] Cabana Attendant: Gino Wing MD Hematocrit (Bld) [Volume fraction] 31.0 % Low 36.3 - 47.1 % [facility] Hemoglobin (Bld) [Mass/Vol] 10.4 g/dL Low 11.9 - 15.1 g/dL [facility] Interpretation and review of laboratory results Abnormal [facility] MCH (RBC) [Entitic mass] 29.5 pg 25.2 - 33.5 pg [facility] MCHC (RBC) [Mass/Vol] 33.5 g/dL 28.4 - 34.8 g/dL [facility] MCV (RBC) [Entitic vol] 87.8 fL 82.6 - 102.9 fL [facility] NRBC Automated 0.0 0.0 per 100 WBC [facility] Platelet distribution width (Bld) [Ratio] 12.6 % 11.8 - 14.4 % [facility] Platelet mean volume (Bld) [Entitic vol] 9.6 fL 8.1 - 13.5 fL [facility] Platelets (Bld) [#/Vol] 343 10*3/uL [facility] RBC (Bld) [#/Vol] 3.53 10*6/uL Low 3.95 - 5.1 1 m/uL [facility] WBC (Bld) [#/Vol] 13.2 10*3/uL High [facility] CBC with Auto Differentialon 05-25-2022 Absolute Eos # [facility] Absolute Immature Granulocyte 0.17 [facility] Absolute Lymph # 2.57 [facility] Absolute [place] # 1.40 High [facility] Basophils (Bld) [#/Vol] 0.03 10*3/uL [facility] Basophils/100 WBC (Bld) 0 % 0 - 2 % [facility] Eosinophils/100 WBC (Bld) 0 % Low 1 - 4 % [facility] Hematocrit (Bld) [Volume fraction] 29.8 % Low 36.3 - 47.1 % [facility] Hemoglobin (Bld) [Mass/Vol] 10.1 g/dL Low 11.9 - 15.1 g/dL [facility] Immature granulocytes/100 WBC (Bld) 1 % High 0 [facility] Interpretation and review of laboratory results Abnormal [facility] Lymphocytes/100 WBC (Bld) 15 % Low 24 - 43 % [facility] MCH (RBC) [Entitic mass] 29.8 pg 25.2 - 33.5 pg [facility] MCHC (RBC) [Mass/Vol] 33.9 g/dL 28.4 - 34.8 g/dL [facility] MCV (RBC) [Entitic vol] 87.9 fL 82.6 - 102.9 fL [facility] Monocytes/100 WBC (Bld) 8 % 3 - 12 % [facility] NRBC Automated 0.0 0.0 per 100 WBC [facility] Platelet distribution width (Bld) [Ratio] 12.7 % 11.8 - 14.4 % [facility] Platelet mean volume (Bld) [Entitic vol] 9.4 fL 8.1 - 13.5 fL [facility] Platelets (Bld) [#/Vol] 350 10*3/uL [facility] RBC (Bld) [#/Vol] 3.39 10*6/uL Low 3.95 - 5.1 1 m/uL [facility] Segmented neutrophils/100 WBC (Bld) 76 % High 36 - 65 % [facility] Segs Absolute 12.92 High [facility] WBC (Bld) [#/Vol] 17.1 10*3/uL High [facility] CBC with Diffon 05-25-2022 Abs. Basophil 0.03 k/uL Normal 0.00-0.20 [facility] Comment on above: Performed By: #### C DP, CP #### [place] [address] Cabana Attendant: Gino Wing MD Abs. Eosinophil <0.03 Normal 0.00-0.44 [facility] Comment on above: Performed By: #### C DP, CP #### [facility] [address] [place] [address] Cabana Attendant: Gino Wing MD Abs.Imm.Granulocyte 0.17 k/uL Normal 0.00-0.30 [facility] Comment on above: Performed By: #### C DP, CP #### [facility] [address] [place] [address] Cabana Attendant: Gino Wing MD Abs.Neutrophil (Seg) 12.92 k/uL High 1.50-8.10 [facility] Comment on above: Performed By: #### C DP, CP #### [place] [id number] Cabana Attendant: Gino Wing MD Basophils/100 WBC (Bld) 0 % Normal 0-2 [facility] Comment on above: Performed By: #### C DP, CP #### [address] [address] Cabana Attendant: Gino Wing MD Eosinophils/100 WBC (Bld) 0 % Low 1-4 [facility] Comment on above: Performed By: #### C DP, CP #### [address] [address] Cabana Attendant: Gino Wing MD Erythrocyte distribution width (RBC) [Ratio] 12.7 % Normal 11.8-14.4 [facility] Comment on above: Performed By: #### C DP, CP #### [address] [address] Cabana Attendant: Gino Wing MD Hematocrit (Bld) [Volume fraction] 29.8 % Low 36.3-47.1 [facility] Comment on above: Performed By: #### C DP, CP #### [address] [address] Cabana Attendant: Gino Wing MD Hemoglobin (Bld) [Mass/Vol] 10.1 g/dL Low 11.9-15.1 [facility] Comment on above: Performed By: #### C DP, CP #### [address] [address] Cabana Attendant: Gino Wing MD Immature granulocytes/100 WBC (Bld) 1 % High 0 [facility] Comment on above: Performed By: #### C DP, CP #### [address] [address] Cabana Attendant: Gino Wing MD Lymphocytes (Bld) [#/Vol] 2.57 10*3/uL Normal 1.10-3.70 [facility] Comment on above: Performed By: #### C DP, CP #### [place] [address] Cabana Attendant: Gino Wing MD Lymphocytes/100 WBC (Bld) 15 % Low 24-43 [facility] Comment on above: Performed By: #### C DP, CP #### [place] [address] Cabana Attendant: Gino Wing MD MCH (RBC) [Entitic mass] 29.8 pg Normal 25.2-33.5 [facility] Comment on above: Performed By: #### C DP, CP #### [place] [address] Cabana Attendant: Gino Wing MD MCHC (RBC) [Mass/Vol] 33.9 g/dL Normal 28.4-34.8 [facility] Comment on above: Performed By: #### C DP, CP #### [place] [address] Cabana Attendant: Gino Wing MD MCV (RBC) [Entitic vol] 87.9 fL Normal 82.6-102.9 [facility] Comment on above: Performed By: #### C DP, CP #### [place] [address] Cabana Attendant: Gino Wing MD Monocytes (Bld) [#/Vol] 1.40 10*3/uL High 0.10-1.20 [facility] Comment on above: Performed By: #### C DP, CP #### [place] [address] Cabana Attendant: Gino Wing MD Monocytes/100 WBC (Bld) 8 % Normal 3-12 [facility] Comment on above: Performed By: #### C DP, CP #### [address] [address] Cabana Attendant: Gino Wing MD Neutrophil (Seg) 76 % High 36-65 [facility] Comment on above: Performed By: #### C DP, CP #### [address] [address] Cabana Attendant: Gino Wing MD NRBC Automated 0.0 per 100 WBC Normal 0.0 [facility] Comment on above: Performed By: #### C DP, CP #### [address] [address] Cabana Attendant: Gino Wing MD Platelet mean volume (Bld) [Entitic vol] 9.4 fL Normal 8.1-13.5 [facility] Comment on above: Performed By: #### C DP, CP #### [address] [address] Cabana Attendant: Gino Wing MD Platelets (Bld) [#/Vol] 350 10*3/uL Normal 138-453 [facility] Comment on above: Performed By: #### C DP, CP #### [address] [address] Cabana Attendant: Gino Wing MD RBC (Bld) [#/Vol] 3.39 10*6/uL Low 3.95-5.11 [facility] Comment on above: Performed By: #### C DP, CP #### [address] [address] Cabana Attendant: Gino Wing MD WBC (Bld) [#/Vol] 17.1 10*3/uL High 3.5-11.3 [facility] Comment on above: Performed By: #### C DP, CP #### [address] [address] Cabana Attendant: Gino Wing MD CT HEAD WO CONTRASTon [...] Dale Barcenas MD 05/25/22 Final result Normal [facility] No acute intracrania l abnormality. [facility] RIS CONSOLIDATED EXAMINATION: CT OF THE HEAD WITHOUT [...] of the visualized skull or soft tissues. [facility] CONSOLIDATED Dale Barcenas MD - 05/25/2022 [...] soft tissues. IMPRESSION: No acute intracranial abnormality. [facility] Phone: Radiology Study observation (narrative) [facility] Phone: CT HEAD WO CONTRASTOrdered B y: Dale Barcenas on 05-25-2022 [employer] Phone: Comp Metabolic Profon 2021 ALT [Catalytic activity/Vol] 5 U/L Normal 5-33 [facility] Comment on above: Performed By: #### C DHARA CP #### [facility] [address] [place], [place] [id number] Cabana Attendant: Gino Wing MD Bilirubin [Mass/Vol] mg/dL Low 0.3-1.2 [facility] Comment on above: Performed By: #### C DHARA CP #### [facility] [address] [place], [place] [phone] Cabana Attendant: Gino Wing MD Albumin [Mass/Vol] 3.1 g/dL Low 3.5-5.2 [facility] Comment on above: Performed By: #### C BC, CP #### [address] [address] Cabana Attendant: Gino Wing MD Albumin/Glob Ratio 1.0 Normal 1.0-2.5 [facility] Comment on above: Performed By: #### C BC, CP #### [address] [address] Cabana Attendant: Gino Wing MD Alkaline Phos 79 U/L Normal 35-104 [facility] Comment on above: Performed By: #### C BC, CP #### [address] [address] Cabana Attendant: Gino Wing MD Anion gap [Moles/Vol] 12 mmol/L Normal 9-17 [facility] Comment on above: Performed By: #### C BC, CP #### [address] [address] Cabana Attendant: Gino Wing MD AST [Catalytic activity/Vol] 9 U/L Normal <32 [facility] Comment on above: Performed By: #### C BC, CP #### [address] [address] Cabana Attendant: Gino Wing MD Calcium [Mass/Vol] 6.6 mg/dL Low 8.6-10.4 [facility] Comment on above: Performed By: #### C BC, CP #### [address] [address] Cabana Attendant: Gino Wing MD Chloride [Moles/Vol] 103 mmol/L Normal 98-107 [facility] Comment on above: Performed By: #### C BC, CP #### [facility] [address] [place] [address] Cabana Attendant: Gino Wing MD CO2 [Moles/Vol] 19 mmol/L Low 20-31 [facility] Comment on above: Performed By: #### C BC, CP #### [facility] [address] [place] [address] Cabana Attendant: Gino Wing MD Creatinine [Mass/Vol] 0.46 mg/dL Low 0.50-0.90 [facility] Comment on above: Performed By: #### C BC, CP #### [address] [address] Cabana Attendant: Gino Wing MD GFR/1.73 sq M.predicted among non-blacks MDRD (S/P/Bld) [Vol rate/Area] mL/min/{1.73_m2} Normal >60 [facility] Comment on above: Result Comment: Effective May [...] Performed By: #### C BC, CP #### [address] [address] Cabana Attendant: Gino Wing MD Glucose [Mass/Vol] 118 mg/dL High 70-99 [facility] Comment on above: Performed By: #### C BC, CP #### [facility] [address] [place] [address] Cabana Attendant: Gino Wing MD Potassium [Moles/Vol] 3.8 mmol/L Normal 3.7-5.3 [facility] Comment on above: Performed By: #### C BC, CP #### [address] [address] Cabana Attendant: Gino Wing MD Protein [Mass/Vol] 6.2 g/dL Low 6.4-8.3 [facility] Comment on above: Performed By: #### C BC, CP #### [facility] [address] [place], [place] [phone] Cabana Attendant: Gino Wign MD Sodium [Moles/Vol] 134 mmol/L Low 135-144 [facility] Comment on above: Performed By: #### C DHARA, CP #### [facility] [address] [place], [place] [id number] Cabana Attendant: Gino Wing MD Urea nitrogen [Mass/Vol] 6 mg/dL Normal 6-20 [facility] Comment on above: Performed By: #### C DHARA, CP #### [facility] [address] [place], [place] [phone] Cabana Attendant: Gino Wing MD Comprehensive Metabolic Pane [facility] 05-25-2022 Albumin [Mass/Vol] 3.1 g/dL Low 3.5 - 5.2 g/dL [facility] Albumin/Globulin [Mass ratio] 1.1 {ratio} 1 - 2.5 [facility] ALP (Bld) [Catalytic activity/Vol] 82 U/L 35 - 104 U/L [facility] ALT [Catalytic activity/Vol] U/L Low 5 - 33 U/L [facility] Anion gap [Moles/Vol] 13 mmol/L 9 - 17 mmol/L [facility] AST [Catalytic activity/Vol] 17 U/L NINF - 32 U/L [facility] Bilirubin [Mass/Vol] mg/dL Low 0.3 - 1 .2 mg/dL [facility] Calcium [Mass/Vol] 6.6 mg/dL Low 8.6 - 10. 4 mg/dL [facility] Chloride [Moles/Vol] 102 mmol/L 98 - 10 7 mmol/L [facility] CO2 [Moles/Vol] 19 mmol/L Low 20 - 31 mmol/L [facility] Creatinine [Mass/Vol] 0.57 mg/dL 0.5 - 0.9 mg/dL [facility] GFR/1.73 sq M.predicted MDRD (S/P/Bld) [Vol rate/Area] - PINF [facility] Comment on above: Effective May 24, 2022 [...] 109 mg/dL High 70 - 99 mg/dL [facility] Interpretation and review of laboratory results Abnormal [facility] Potassium [Moles/Vol] 4.2 mmol/L 3.7 - 5.3 mmol/L [facility] Protein [Mass/Vol] 6.0 g/dL Low 6.4 - 8.3 g/dL [facility] Sodium [Moles/Vol] 134 mmol/L Low 135 - 144 mmol/L [facility] Urea nitrogen (BldV) [Mass/Vol] 6 mg/dL 6 - 20 mg/dL [facility] Albumin [Mass/Vol] 3.1 g/dL Low 3.5 - 5.2 g/dL [facility] Albumin/Globulin [Mass ratio] 1.0 {ratio} 1 - 2.5 [facility] ALP (Bld) [Catalytic activity/Vol] 79 U/L 35 - 104 U/L [facility] ALT [Catalytic activity/Vol] 5 U/L 5 - 33 U/L [facility] Anion gap [Moles/Vol] 12 mmol/L 9 - 17 mmol/L [facility] AST [Catalytic activity/Vol] 9 U/L NINF - 32 U/L [facility] Bilirubin [Mass/Vol] mg/dL Low 0.3 - 1 .2 mg/dL [facility] Calcium [Mass/Vol] 6.6 mg/dL Low 8.6 - 10. 4 mg/dL [facility] Chloride [Moles/Vol] 103 mmol/L 98 - 10 7 mmol/L [facility] CO2 [Moles/Vol] 19 mmol/L Low 20 - 31 mmol/L [facility] Creatinine [Mass/Vol] 0.46 mg/dL Low 0.5 - 0.9 mg/dL [facility] GFR/1.73 sq M.predicted MDRD (S/P/Bld) [Vol rate/Area] - PINF [facility] Comment on above: Effective May 24, 2022 [...] 118 mg/dL High 70 - 99 mg/dL [facility] Interpretation and review of laboratory results Abnormal [facility] Potassium [Moles/Vol] 3.8 mmol/L 3.7 - 5.3 mmol/L [facility] Protein [Mass/Vol] 6.2 g/dL Low 6.4 - 8.3 g/dL [facility] Sodium [Moles/Vol] 134 mmol/L Low 135 - 144 mmol/L [facility] Urea nitrogen (BldV) [Mass/Vol] 6 mg/dL 6 - 20 mg/dL [facility] Fibrinogenon 05-25-2022 Fibrinogen 367 mg/dL Normal 140-420 [facility] Comment on above: Performed By: #### C BC, CP #### [facility] [place] [address] Cabana Attendant: Gino Wing MD Fibrinogen 367 mg/dL 140 - 420 mg/dL [facility] Haptoglobinon 05-25-2022 Haptoglobin 159 mg/dL Normal 30-200 [facility] Comment on above: Performed By: #### M G, FIB, LD, URI, HAPT, CBC, CP, PTT, PT #### [facility] [address] [place], [place] [phone] Cabana Attendant: Gino Wing MD Haptoglobin 159 mg/dL 30 - 200 mg/dL [facility] [employer]apping (SAM) Lactate Dehydrogenaseon 10-0 LDH [Catalytic activity/Vol] 118 U/L Low 135-214 [facility] Comment on above: Performed By: #### M G, FIB, LD, URI, HAPT, CBC, CP, PTT, PT #### [facility] [address] [place], [place] [phone] Cabana Attendant: Gino Wing MD Interpretation and review of laboratory results Abnormal [facility] LD 118 U/L Low 135 - 214 U/L [facility] MAGNESIUM DRIP MONITORon Magnesium [Mass/Vol] 5.0 mg/dL Normal 3.6-6.8 [facility] Comment on above: Performed By: #### U RCX #### [facility] [address] [place] [address] Dr. Elda Velasquez Magnesiumon 05-25-2022 Magnesium [Mass/Vol] 5.0 mg/dL High 1.6-2.6 [facility] Comment on above: Performed By: #### C BC, CP #### [facility] [place], [place] [phone] Cabana Attendant: Gino Wing MD Interpretation and review of laboratory results Abnormal [facility] Magnesium [Mass/Vol] 5.0 mg/dL High 1.6 - 2 .6 mg/dL [facility] [employer] Mapping (SAM) No Panel Informationon 05-25 [facility] Surveying [employer] Mapping (SAM) [facility] PTon 05-25-2022 INR Coag (PPP) [Relative time] 0.9 {INR} Normal [facility] Comment on above: Result Comment: Therapeutic Range: Moderate Anticoagulant Intensity: INR = 2.0-3.0 High Anticoagulant Intensity: INR = 2.5-3.5 Performed By: #### C BC, CP #### [facility] [address] [place] [address] Cabana Attendant: Gino Wing MD PT Coag (PPP) [Time] 9.4 s Normal 9.1-12.3 [facility] Comment on above: Performed By: #### C DHARA, CP #### [facility] [address] [place], [place] [phone] Cabana Attendant: Gino Wing MD Protime-INRon 05-25-2022 INR Coag (Bld) [Relative time] 0.9 {INR} [facility] Comment on above: Therapeutic Range: Moderate Anticoagulant Intensity: INR = 2.0-3.0 High Anticoagulant Intensity: INR = 2.5-3.5 PT Coag (PPP) [Time] 9.4 s [facility] Surgical Pathologyon 022 Surgical Pathology (NOTE) -- [...] SURGICAL PATHOLOGY CONSULTATION Patient Name: QIAN CLEMENTS [facility] Rec: [id number] Path Number: [id number] [facility] ANATOMIC PATHOLOGY [address] [place] [id number] Normal [facility] Comment on above: Performed By: #### C BC, CP #### [facility] [address] [place] [address] Cabana Attendant: Gino Wing MD T. pallidum Abon 05-25-2022 T. pallidum, IgG Non-Reactive NONREACTIVE [facility] [employer] Comment on above: T. pallidum antibodies are not detected. There is no serological evidence of infection with T. pallidum (early primary syphilis cannot be excluded). Retest in 2-4 weeks if syphilis is clinically suspect. [facility] [employer] TYPE AND SCREENon 05-25-2022 ABO/Rh Positive [facility] [place] [id number] [facility] [employer] Expiration Date 05/28/2022,2359 [facility] Type + Screenon 05-25-2022 Type + Screen Sample Expiration 05/28/2022,2359 Arm Band Number BE [id number] ABO/Rh(D) O POSITIVE Antibody Screen NEGATIVE Normal [facility] Comment on above: Performed By: #### T YS #### [facility] [address] [place] [address] Cabana Attendant: Gino Wing MD US PREG BIOPHY W [...] by: AARON DELACRUZ Date: 2022-05-25 07:12 Normal [facility] US PREG GROWTHon 05-25-2022 US PREG GROWTH [...] AARON DELACRUZ Date: 2022-05-25 07:27 Normal [facility] Uric Acidon 05-25-2022 Urate [Mass/Vol] 3.8 mg/dL Normal 2.4-5.7 [facility] Comment on above: Performed By: #### C BC, CP #### [facility] [address] [place] [address] Cabana Attendant: Gino Wing MD Urate [Mass/Vol] 3.8 mg/dL 2.4 - 5.7 mg/dL [facility] CBC AUTO DIFFon 05-24-2022 BASO # 0.0 103/ul Normal 0.0-0.1 [facility] Comment on above: Performed By: #### C BC #### [facility] [address] [address] [address] Elda Velasquez Basophils/100 WBC (Bld) 0.3 % Normal 0.2-2.0 [facility] Comment on above: Performed By: #### C BC #### [facility] [address] [address] [address] Elda Velasquez EO # 0.0 103/ul Normal 0.0-0.7 [facility] Comment on above: Performed By: #### C BC #### [facility] [address] [address] [address] Elda Velasquez Eosinophils/100 WBC (Bld) 0.2 % Critically low 0.9-7.0 [facility] Comment on above: Performed By: #### C BC #### [facility] [address] [place] [address] Dr. Elda Velasquez Erythrocyte distribution width (RBC) [Ratio] 12.3 % Normal 11.0-15.0 [facility] Comment on above: Performed By: #### C BC #### [facility] [address] [place] [address] Dr. Elda Velasquez Hematocrit (Bld) [Volume fraction] 31.5 % Critically low 36.0-48.0 [facility] Comment on above: Performed By: #### C BC #### [facility] [address] [place] [address] Dr. Elda Velasquez Hemoglobin (Bld) [Mass/Vol] 10.2 g/dL Critically low 12.0-16.0 [facility] Comment on above: Performed By: #### C BC #### [facility] [address] [address] [address] Elda Velasquez IG # 0.16 10e3/ul Critically high 0.00-0.03 [facility] Comment on above: Performed By: #### C BC #### [facility] [address] [address] [address] Elda Velasquez IG % 1.3 % Critically high 0.0-0.[address] [facility] Comment on above: Performed By: #### C BC #### [facility] [address] [address] [address] Elda Velasquez LYMPH # 2.1 103/ul Normal 1.2-3.8 [facility] Comment on above: Performed By: #### C BC #### [facility] [address] [address] [address] Elda Velasquez Lymphocytes/100 WBC (Bld) 17.1 % Critically low 20.5-60.0 [facility] Comment on above: Performed By: #### C BC #### [facility] [address] [place] [address] Dr. Elda Velasquez MANUAL DIFF REQ NO Normal [facility] Comment on above: Performed By: #### C BC #### [facility] [address] [place] [address] Dr. Elda Velasquez MCH (RBC) [Entitic mass] 29.0 pg Normal 26.7-34.0 [facility] Comment on above: Performed By: #### C BC #### [facility] [address] [place] [address] Dr. Elda Velasquez MCHC (RBC) [Mass/Vol] 32.4 g/dL Normal 29.9-35.2 [facility] Comment on above: Performed By: #### C BC #### [facility] [address] [place] [address] Dr. Elda Velasquez MCV (RBC) [Entitic vol] 89.5 fL Normal 81.0-99.0 [facility] Comment on above: Performed By: #### C BC #### [facility] [address] [place] [address] Dr. Elda Velasquez MONO # 0.9 103/ul Critically high 0.3-0.[address] [facility] Comment on above: Performed By: #### C BC #### [facility] [address] [place] [address] Dr. Elda Velasquez Monocytes/100 WBC (Bld) 7.1 % Normal 1.7-12.0 [facility] Comment on above: Performed By: #### C BC #### [facility] [address] [address] [address] Elda Velasquez NEUT # 8.9 103/ul Critically high 1.4-6.[address] [facility] Comment on above: Performed By: #### C BC #### [facility] [address] [address] [address] Elda Velasquez Neutrophils/100 WBC (Bld) 74.0 % Normal 43.0-75.0 [facility] Comment on above: Performed By: #### C BC #### [facility] [address] [place] [address] Dr. Elda Velasquez Platelet mean volume (Bld) [Entitic vol] 9.4 fL Critically low 9.5-13.5 [facility] Comment on above: Performed By: #### C BC #### [facility] [address] [place] [address] Dr. Elda Velasquez PLT 340 103/ul Normal 150-450 [facility] Comment on above: Performed By: #### C BC #### [facility] [address] [place] [address] Dr. Elda Velasquez RBC 3.52 106/ul Critically low 4.20-5.[address] [facility] Comment on above: Performed By: #### C BC #### [facility] [address] [place] [address] Dr. Elda Velasquez WBC 12.0 103/ul Critically high 4.0-11.0 [facility] Comment on above: Performed By: #### C BC #### [facility] [address] [place] [address] Dr. Elda Velasquez CTA CHEST WO W [...] by: MARGOT LAU Date: 2022-05-24 19:33 Normal [facility] LDHon 05-24-2022 LDH 90 U/L Normal 81-234 [facility] Comment on above: Performed By: #### U JUAN F, LDH, CMP #### [facility] [address] [place] [address] Dr. Elda Velasquez PROF 14(COMP METB)on 022 Albumin [Mass/Vol] 2.3 g/dL Critically low 3.4-5.0 [facility] Comment on above: Performed By: #### U JUAN F, LDH, CMP #### [facility] [address] [place] [address] Dr. Elda Velasquez Albumin/Globulin [Mass ratio] 0.6 {ratio} Normal [facility] Comment on above: Performed By: #### U JUAN F, LDH, CMP #### [facility] [address] [place] [address] Dr. Elda Velasquez ALP [Catalytic activity/Vol] 87 U/L Normal 46-116 [facility] Comment on above: Performed By: #### U JUAN F, LDH, CMP #### [facility] [address] [place] [address] Dr. Elda Velasquez ALT [Catalytic activity/Vol] 11 U/L Critically low 14-59 [facility] Comment on above: Performed By: #### U JUAN F, LDH, CMP #### [facility] [address] [place] [address] Dr. Elda Velasquez Anion gap [Moles/Vol] 13.3 mmol/L Normal [facility] Comment on above: Performed By: #### U JUAN F, LDH, CMP #### [facility] [address] [place] [address] Dr. Elda Velasquez AST [Catalytic activity/Vol] 5 U/L Critically low 15-37 [facility] Comment on above: Performed By: #### U JUAN F, LDH, CMP #### [facility] [address] [place] [address] Dr. Elda Velasquez Bilirubin [Mass/Vol] 0.1 mg/dL Critically low 0.2-1.0 [facility] Comment on above: Performed By: #### U JUAN F, LDH, CMP #### [facility] [address] [place] [address] Dr. Elda Velasquez Calcium [Mass/Vol] 8.3 mg/dL Critically low 8.5-10.1 Th [facility] Comment on above: Performed By: #### U JUAN F, LDH, CMP #### [facility] [address] [place] [address] Dr. Elda Velasquez Chloride [Moles/Vol] 106 mmol/L Normal 98-107 [facility] Comment on above: Performed By: #### U JUAN F, LDH, CMP #### [facility] [address] [place] [address] Dr. Elda Velasquez CO2 [Moles/Vol] 22.5 mmol/L Normal 21.0-32.0 [facility] Comment on above: Performed By: #### U JUAN F, LDH, CMP #### [facility] [address] [place] [address] Dr. Elda Velasquez Creatinine [Mass/Vol] 0.72 mg/dL Normal 0.55-1.02 [facility] Comment on above: Performed By: #### U JUAN F, LDH, CMP #### [facility] [address] [address] [address] Elda Velasquez EGFR-AF SOUTH [place]FRICAN >60 Normal >=60 [facility] Comment on above: Performed By: #### U JUAN F, LDH, CMP #### [facility] [address] [address] [address] Elda Velasquez EGFR-NON AF [place] >60 Normal >=60 [facility] Comment on above: Performed By: #### U JUAN F, LDH, CMP #### [facility] [address] [address] [address] Elda Velasquez Globulin (S) [Mass/Vol] 3.7 g/dL Normal [facility] Comment on above: Performed By: #### U UJAN F, LDH, CMP #### [facility] [address] [address] [address] Elda Velasquez Glucose [Mass/Vol] 135 mg/dL Critically high 74-106 [facility] Comment on above: Performed By: #### U JUAN F, LDH, CMP #### [facility] [address] [address] [address] Elda Velasquez Potassium [Moles/Vol] 3.8 mmol/L Normal 3.5-5.1 [facility] Comment on above: Performed By: #### U JUAN F, LDH, CMP #### [facility] [address] [address] [address] Elda Velasquez Protein [Mass/Vol] 6.0 g/dL Critically low 6.4-8.2 Th [facility] Comment on above: Performed By: #### U JUAN F, LDH, CMP #### [facility] [address] [address] [address] Elda Velasquez Sodium [Moles/Vol] 138 mmol/L Normal 136-145 [facility] Comment on above: Performed By: #### U JUAN F, LDH, CMP #### [facility] [address] [address] [address] Elda Velasquez Urea nitrogen [Mass/Vol] 6.0 mg/dL Critically low 7.0-18.0 [facility] Comment on above: Performed By: #### U JUAN F, LDH, CMP #### [facility] [address] [address] [address] Elda Velasquez Urea nitrogen/Creatinine [Mass ratio] 8.3 mg/mg Normal [facility] Comment on above: Performed By: #### U JUAN F, LDH, CMP #### [facility] [address] [address] [address] 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 Elda Velasquez Clarity (U) CLEAR Normal CLEAR [facility] Comment on above: Performed By: #### U RCX #### [facility] [address] [place] [address] Dr. Elda Velasquez Color (U) LT. YELLOW Normal YELLOW [facility] Comment on above: Performed By: #### U RCX #### [facility] [address] [place] [address] Dr. Elda Velasquez Glucose Ql (U) Negative Normal NEGATIVE [facility] Comment on above: Performed By: #### U RCX #### [facility] [address] [place] [address] Dr. Elda Velasquez Hemoglobin Ql (U) Negative Normal NEGATIVE [facility] Comment on above: Performed By: #### U RCX #### [facility] [address] [address] [address] Elda Velasquez Ketones Ql (U) Negative Normal NEGATIVE [facility] Comment on above: Performed By: #### U RCX #### [facility] [address] [address] [address] Elda Velasquez LEUKOCYTES Negative Normal NEGATIVE [facility] Comment on above: Performed By: #### U RCX #### [facility] [address] [place] [address] Dr. Elda Velasquez Nitrite Ql (U) Negative Normal NEGATIVE [facility] Comment on above: Performed By: #### U RCX #### [facility] [address] [address] [address] Elda Velasquez pH (U) 7.0 [pH] Normal 5-9 [facility] Comment on above: Performed By: #### U RCX #### [facility] [address] [address] [address] Elda Velasquez SPEC GRAVITY 1.010 Normal 1.005-<=1.[address] [facility] Comment on above: Performed By: #### U RCX #### [facility] [address] [place] [address] Dr. Elda Velasquez UA PROTEIN Negative Normal NEGATIVE/ TRACE [facility] Comment on above: Performed By: #### U RCX #### [facility] [address] [place] [address] Dr. Elda Velasquez UR MICRO IND NOT INDICATED Normal [facility] Comment on above: Performed By: #### U RCX #### [facility] [address] [place] [address] Dr. Elda Velasquez Urobilinogen Qn (U) 0.2 {Caroline'U}/dL Normal 0.2 - 1. 0 [facility] Comment on above: Performed By: #### U RCX #### [facility] [address] [place] [address] Dr. Elda Velasquez URIC ACID SERUMon 05-24-2022 Urate [Mass/Vol] 3.8 mg/dL Normal 2.6-6.0 [facility] Comment on above: Performed By: #### U JUAN F, LDH, CMP #### [facility] [address] [place] [address] Dr. Elda Velasquez US PREG CERVICAL LENGTHon US PREG CERVICAL LENGTH EXAMINATION: US PREG CERVICAL LENGTH HISTORY: Premature uterine contraction COMPARISON: No relevant comparison available. FINDINGS: position: Cephalic presentation, longitudinal lie Amniotic fluid volume: Subjectively normal Cervix: 4.5 cm], closed Heart rate: 144 bpm IMPRESSION: Closed cervix measuring 4.5 cm Electronically authenticated by: AARON DELACRUZ Date: 2022-05-24 11:52 Normal [facility] CULTURE URINEon 05-23-2022 CULTURE URINE Culture Observations : LIGHT GROWTH OF MIXED GENITAL J CARLOS. NO POTENTIAL PATHOGENS SEEN. Normal [facility] Comment on above: Performed By: #### U RCX #### [facility] [address] [place] [address] Dr. 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 Elda Velasquez Clarity (U) SL CLOUDY Abnormal CLEAR [facility] Comment on above: Performed By: #### U RCX #### [facility] [address] [place] [address] Dr. Elda Velasquez Color (U) LT. YELLOW Normal YELLOW [facility] Comment on above: Performed By: #### U RCX #### [facility] [address] [place] [address] Dr. Elda Velasquez Glucose Ql (U) Negative Normal NEGATIVE [facility] Comment on above: Performed By: #### U RCX #### [facility] [address] [place] [address] Dr. Elda Velasquez Hemoglobin Ql (U) TRACE-INTACT Abnormal NEGATIVE [facility] Comment on above: Performed By: #### U RCX #### [facility] [address] [place] [address] Dr. Elda Velasquez Ketones Ql (U) Negative Normal NEGATIVE [facility] Comment on above: Performed By: #### U RCX #### [facility] [address] [place] [address] Dr. Elda Velasquez LEUKOCYTES TRACE Abnormal NEGATIVE [facility] Comment on above: Performed By: #### U RCX #### [facility] [address] [place] [address] Dr. Elda Velasquez Nitrite Ql (U) Positive Abnormal NEGATIVE [facility] Comment on above: Performed By: #### U RCX #### [facility] [address] [place] [address] Dr. Elda Velasquez pH (U) 7.0 [pH] Normal 5-9 [facility] Comment on above: Performed By: #### U RCX #### [facility] [address] [place] [address] Dr. Elda Velasquez SPEC GRAVITY 1.015 Normal 1.005-<=1.[address] [facility] Comment on above: Performed By: #### U RCX #### [facility] [address] [place] [address] Dr. Elda Velasquez UA PROTEIN Negative Normal NEGATIVE/ TRACE [facility] Comment on above: Performed By: #### U RCX #### [facility] [address] [place] [address] Dr. Elda Velasquez UR MICRO IND INDICATED Normal [facility] Comment on above: Performed By: #### U RCX #### [facility] [address] [place] [address] Dr. Elda Velasquez Urobilinogen Qn (U) 1.0 {Caroline'U}/dL Normal 0.2 - 1. 0 [facility] Comment on above: Performed By: #### U RCX #### [facility] [address] [place] [address] Dr. Elda Velasquez URINE MICROSCOPIC ONLYon BACTERIA SMALL Abnormal NONE SEEN The [facility] Comment on above: Performed By: #### U RCX #### [facility] [address] [place] [address] Dr. Elda Velasquez Bacteria identified Cx Nom (U) INDICATED Normal [facility] Comment on above: Performed By: #### U RCX #### [facility] [address] [place] [address] Dr. Elda Velasquez CAST NONE SEEN Normal NONE SEEN [facility] Comment on above: Performed By: #### U RCX #### [facility] [address] [place] [address] Dr. Elda Velasquez Crystals LM Nom (Urine sed) NONE SEEN Normal NONE SEEN [facility] Comment on above: Performed By: #### U RCX #### [facility] [address] [place] [address] Dr. Elda Velasquez Epithelial cells LM Ql (Urine sed) MODERATE Abnormal NONE SEEN /RARE [facility] Comment on above: Performed By: #### U RCX #### [facility] [address] [place] [address] Dr. Elda Velasquez MUCOUS TRACE Abnormal NONE SEEN The [facility] Comment on above: Performed By: #### U RCX #### [facility] [address] [place] [address] Dr. Elda Velasquez RBC 2-5 Abnormal 0-2 [facility] Comment on above: Performed By: #### U RCX #### [facility] [address] [place] [address] Dr. Elda Velasquez WBC 2-5 Abnormal NONE SEEN The [facility] Comment on above: Performed By: #### U RCX #### [facility] [address] [place] [address] Dr. Elda Velasquez US PREG ANATOMY SINGLEon [...] by: PILAR DOBSON Date: 2022-05-04 16:28 Normal [facility] Microscopic UrinalysisOrdere d By: Pilar Garcia on 09-19-2019 - [employer] Work Phone: Amorphous, UA NOT REPORTED None [employer] [facility] Work Phone: Bacteria, UA 1+ Abnormal None [employer] Work Phone: Casts UA NOT REPORTED /LPF [employer] Work Phone: Crystals UA CALCIUM OXALATE Abnormal None /HPF [employer] [facility] Work Phone: Crystals UA 1+ Abnormal None /HPF [employer] Work Phone: Epithelial Cells UA 10 TO 20 /HPF [employer] Work Phone: Interpretation and review of laboratory results Abnormal [employer] Work Phone: Mucus, UA NOT REPORTED None [employer] Work Phone: Other Observations UA NOT REPORTED NOT REQ. [employer] Work Phone: RBC, UA 2 TO 5 [employer] Work Phone: Renal Epithelial, Urine NOT REPORTED 0 /HPF [employer] Work Phone: Trichomonas, UA NOT REPORTED None [facility] [facility] Work Phone: WBC, UA 0 TO 2 0 /HPF [employer] Work Phone: Yeast, UA NOT REPORTED None [employer] Work Phone: UrinalysisOrdered By: Pilar Garcia on 09-19-2019 Bilirubin Urine Negative NEGATIVE [employer] [facility] Work Phone: Color, UA YELLOW [facility]LLOW [facility] Work Phone: Glucose, Ur Negative NEGATIVE [facility] Work Phone: Interpretation and review of laboratory results Abnormal [facility] Work Phone: Ketones Ql (U) Negative NEGATIVE [facility] Work Phone: Leukocyte esterase Test strip Ql (U) Negative NEGATIVE [facility] Work Phone: Nitrite, Urine Negative NEGATIVE [facility] Work Phone: pH, UA 6.[address] [facility] Work Phone: Protein, UA TRACE Abnormal NEGATIVE [facility] Work Phone: Specific [place], UA 1.025 [employer] Work Phone: Turbidity UA HAZY Abnormal CLEAR [facility] Work Phone: Urinalysis Comments [facility] Work Phone: Urine Hgb TRACE Abnormal NEGATIVE [facility] Work Phone: Urobilinogen, Urine Normal Normal [facility] Work Phone: CBC Auto Differentialon 04-22 Basophils (Bld) [#/Vol] 0.00 10*3/uL [place] Basophils/100 WBC (Bld) 0 % 0 - 2 % [place] Differential Type YES [place] Eosinophils (Bld) [#/Vol] 0.10 10*3/uL [place] Eosinophils/100 WBC (Bld) 1 % 0 - 5 % [place] Erythrocyte distribution width (RBC) [Ratio] 13.6 % 12.1 - 15.2 % [place] Hematocrit (Bld) [Volume fraction] 37.7 % 36 - 46 % [place] Hemoglobin (Bld) [Mass/Vol] 12.8 g/dL 12 - 16 g/dL [place] Interpretation and review of laboratory results Abnormal [place] Lymphocytes (Bld) [#/Vol] 1.90 10*3/uL [place] Lymphocytes/100 WBC (Bld) 20 % 15 - 40 % [place] MCH (RBC) [Entitic mass] 29.1 pg 26 - 34 pg [place] MCHC (RBC) [Mass/Vol] 34.0 g/dL 31 - 37 g/dL [place] MCV (RBC) [Entitic vol] 85.7 fL 80 - 100 fL [place] Monocytes (Bld) [#/Vol] 0.40 10*3/uL [place] Monocytes/100 WBC (Bld) 5 % 4 - 8 % [place] Platelet mean volume (Bld) [Entitic vol] NOT REPORTED 6 - 12 fL [place] Platelets (Bld) [#/Vol] NOT REPORTED [place] Platelets (Bld) [#/Vol] 378 10*3/uL [place] RBC (Bld) [#/Vol] 4.40 10*6/uL 4 - 5.2 m/uL [place] RBC morphology finding Nom (Bld) NOT REPORTED [place] Segmented neutrophils/100 WBC (Bld) 74 % 47 - 75 % [place] Segs Absolute 7.20 [place] WBC (Bld) [#/Vol] NOT REPORTED per 100 WBC [place] WBC (Bld) [#/Vol] 9.7 10*3/uL [place] WBC Morphology NOT REPORTED [place] Comprehensive Metabolic Pane l w/ Reflex to MGon 05-06-2019 Albumin [Mass/Vol] 3.9 g/dL 3.5 - 5.2 g/dL [place] Albumin/Globulin [Mass ratio] NOT REPORTED [place] ALP [Catalytic activity/Vol] 84 U/L 35 - 104 U/L [place] ALT [Catalytic activity/Vol] 14 U/L 5 - 33 U/L [place] Anion gap [Moles/Vol] 13 mmol/L 9 - 17 mmol/L [place] AST [Catalytic activity/Vol] 14 U/L <32 [place] Bilirubin Ql (U) 0.34 mg/dL 0.3 - 1.2 mg/dL [place] Bun/Cre Ratio 16 [place] Calcium [Mass/Vol] 9.6 mg/dL 8.6 - 10. 4 mg/dL [place] Chloride [Moles/Vol] 102 mmol/L 98 - 10 7 mmol/L [place] CO2 [Moles/Vol] 23 mmol/L 20 - 31 mmol/L [place] Creatinine [Mass/Vol] 0.61 mg/dL 0.5 - 0.9 mg/dL [place] GFR >60 >60 mL/min [place] GFR Non- >60 >60 mL/min [place] GFR/1.73 sq M predicted among non-blacks MDRD (S/P/Bld) [Vol rate/Area] NOT REPORTED [place] GFR/1.73 sq M predicted among non-blacks MDRD (S/P/Bld) [Vol rate/Area] [place] Comment on above: Average GFR for 20-2 9 years old: 116 mL/min/1.73sq m Chronic Kidney Disease: <60 mL/min/1.73sq m Kidney failure: <15 mL/min/1.73sq m eGFR calculated using average adult body mass. Additional eGFR calculator available at: http://www.TriCipher.NCR/multiple_crcl_2012.htm Glucose [Mass/Vol] 101 mg/dL High 70 - 99 mg/dL [place] Interpretation and review of laboratory results Abnormal [place] Potassium [Moles/Vol] 4.2 mmol/L 3.7 - 5.3 mmol/L [place] Protein [Mass/Vol] 6.8 g/dL 6.4 - 8.3 g/dL [place] Sodium [Moles/Vol] 138 mmol/L 135 - 144 mmol/L [place] Urea nitrogen [Mass/Vol] 10 mg/dL 6 - 20 mg/dL [place] Otheron 05-06-2019 Immature granulocytes (Bld) [#/Vol] NOT REPORTED 0 % [place] Sedimentation Rateon 019 Sed Rate 23 mm 0 - 30 mm [place] Strep Screen Group A Throato n 05-06-2019 S. pyogenes Ag IA Ql (Unsp spec) Rapid Strep A negative. A negative Rapid Group A Strep Screen result does not rule out the possibility of Group A Streptococci in the specimen. A Group A Strep DNA test is available upon request. [place] Special Requests NOT REPORTED [place] Specimen Description .THROAT [place] Urinalysis, reflex to micros copicon 05-06-2019 Bilirubin Urine Negative NEGATIVE [place], [place] Color, UA YELLOW YELLOW [place] Glucose, Ur Negative NEGATIVE [place] Ketones Ql (U) Negative NEGATIVE [place] Leukocyte esterase Test strip Ql (U) Negative NEGATIVE [place] Nitrite, Urine Negative NEGATIVE [place] pH, UA 7.0 [place] Protein (U) [Mass/Vol] Negative NEGATIVE [place] Specific [place], UA 1.015 [place] Turbidity UA CLEAR CLEAR [place] Urinalysis Comments [place] Urine Hgb Negative NEGATIVE [place] Urobilinogen, Urine Normal Normal [place] Vital Signs Date Time Vital Sign Value Performing Clinician Olei pavan 06-02-2024 13:44-0400 Body height 162.6 cm Chitra Batista MD Work Phone: [facility] 06-02-2024 13:44-0400 Body mass index (BMI) [Ratio] 41.68 kg/m2 Chitra Batista MD Work Phone: [facility] 06-02-2024 13:44-0400 Body weight 110.13 kg Chitra Batista MD Work Phone: [employer] 06-02-2024 13:40-0400 Body temperature 97.5 [degF] Chitra Batista MD Work Phone: [facility] 06-02-2024 13:40-0400 Diastolic blood pressure 84 mm[Hg] Chitra Batista MD Work Phone: [facility] 06-02-2024 13:40-0400 Heart rate 91 /min Chitra Batista MD Work Phone: [facility] 06-02-2024 13:40-0400 Respiratory rate 18 /min Chitra Batista MD Work Phone: [facility] 06-02-2024 13:40-0400 SaO2% (BldA) [Mass fraction] 98 % Chitra Batista MD Work Phone: [facility] 06-02-2024 13:40-0400 Systolic blood pressure 134 mm[Hg] Chitra Batista MD Work Phone: [facility] 03-07-2023 08:52-0400 Body height 162.6 cm Jeronimo Do DO Work Phone: [facility] [employer] 03-07-2023 08:52-0400 Body mass index (BMI) [Ratio] 41.2 kg/m2 Jeronimo Do DO Work Phone: [facility] [employer] 03-07-2023 08:52-0400 Body weight 108.86 kg Jeronimo Do DO Work Phone: [facility] [employer] 03-07-2023 08:52-0400 Diastolic blood pressure 84 mm[Hg] Jeronimo Do DO Work Phone: [facility] [employer] 03-07-2023 08:52-0400 Respiratory rate 20 /min Jeronimo Do DO Work Phone: [facility] [employer] 03-07-2023 08:52-0400 SaO2% (BldA) [Mass fraction] 98 % Jeronimo Do DO Work Phone: [employer] 03-07-2023 08:52-0400 Systolic blood pressure 101 mm[Hg] Jeronimo Do DO Work Phone: [employer] 03-07-2023 08:51-0400 Body temperature 98.29 [degF] Jeronimo Do DO Work Phone: [employer] 03-07-2023 08:51-0400 Heart rate 96 /min Jeronimo Do DO Work Phone: [employer] 11-14-2022 08:08-0400 Body height 160 cm Manoj Flores MD Work Phone: [employer] 11-14-2022 08:08-0400 Body mass index (BMI) [Ratio] 41.98 kg/m2 Manoj Flores MD Work Phone: [employer] 11-14-2022 08:08-0400 Body temperature 98.2 [degF] Manoj Flores MD Work Phone: [employer] 11-14-2022 08:08-0400 Body weight 107.5 kg Manoj Flores MD Work Phone: [employer] 11-14-2022 08:08-0400 Diastolic blood pressure 95 mm[Hg] Manoj Flores MD Work Phone: [employer] 11-14-2022 08:08-0400 Heart rate 87 /min Manoj Flores MD Work Phone: [facility] 11-14-2022 08:08-0400 Respiratory rate 20 /min Manoj Flores MD Work Phone: [employer] 11-14-2022 08:08-0400 SaO2% (BldA) [Mass fraction] 98 % Manoj Flores MD Work Phone: [employer] 11-14-2022 08:08-0400 Systolic blood pressure 141 mm[Hg] Manoj Flores MD Work Phone: [employer] 05-29-2022 12:29-0400 Diastolic blood pressure 80 mm[Hg] Tommy Cherry MD Work Phone: [facility] 05-29-2022 12:29-0400 Heart rate 94 /min Tommy Cherry MD Work Phone: [employer] 05-29-2022 12:29-0400 Respiratory rate 16 /min Tommy Cherry MD Work Phone: [employer] 05-29-2022 12:29-0400 Systolic blood pressure 132 mm[Hg] Tommy Cherry MD Work Phone: [employer] 05-29-2022 08:52-0400 Body temperature 98.01 [degF] Tommy Cherry MD Work Phone: [facility] 05-29-2022 08:52-0400 SaO2% (BldA) [Mass fraction] 98 % Tommy Cherry MD Work Phone: [employer] 09-19-2019 17:05-0500 Diastolic blood pressure 76 mm[Hg] Pilar Garcia MD Work Phone: [employer] Work Phone: 09-19-2019 17:05-0500 Heart rate 88 /min Pilar Garcia MD Work Phone: [employer] Work Phone: 09-19-2019 17:05-0500 Respiratory rate 20 /min Pilar Garcia MD Work Phone: [employer] Work Phone: 09-19-2019 17:05-0500 SaO2% (BldA) [Mass fraction] 99 % Pilar Garcia MD Work Phone: [employer] Work Phone: 09-19-2019 17:05-0500 Systolic blood pressure 136 mm[Hg] Pilar Garcia MD Work Phone: [employer] Work Phone: 09-19-2019 15:21-0500 Body mass index (BMI) [Ratio] 41.54 kg/m2 Pilar Garcia MD Work Phone: [employer] Work Phone: 09-19-2019 15:21-0500 Body temperature 98.01 [degF] Pilar Garcia MD Work Phone: [employer] Work Phone: 09-19-2019 15:21-0500 Body weight 109.77 kg Pilar Garcia MD Work Phone: [employer] Work Phone: 05-06-2019 07:59-0400 BMI (Body Mass Index) 38.45 kg/m2 [facility], [place] 05-06-2019 07:59-0400 Body Temperature 98.49 [degF] Hollie [employer] [facility] , [place] 05-06-2019 07:59-0400 Body weight 101.61 kg Hollie [employer] [facility] , [place] 05-06-2019 07:59-0400 BP Diastolic 66 mm[Hg] Hollie [employer] [facility] , [place] 05-06-2019 07:59-0400 BP Systolic 126 mm[Hg] Hollie [employer] [facility] , [place] 05-06-2019 07:59-0400 Pulse (Heart Rate) 83 /min Hollie [employer] [facility], [place] 05-06-2019 07:59-0400 Pulse Oximetry 97 % Hollie [employer] [facility] , [place] 05-06-2019 07:59-0400 Respiratory Rate 20 /min Hollie [employer] [facility] , [place] Encounters Encounter Date Encounter Type Care Provider Facility Start: 06-02-2024 End: 06-02-2024 Emergency department patient visit RACQUEL Zapata [facility] Comment on above: Viral URI with cough (Primary Dx) Start: 03-08-2024 End: 03-08-2024 Emergency department patient visit PILAR LOERA Facility:[facility] Start: 02-21-2024 End: 02-21-2024 ambulatory BLAS RICKS Not Available Start: 02-12-2024 End: 02-12-2024 Emergency department patient visit RACQUEL SIMPSON [facility] Start: 09-08-2023 End: 09-10-2023 Evaluation and management of inpatient AARON CARTAGENA [facility] Start: 09-08-2023 Telephone encounter An Daniels [facility] Start: 09-08-2023 End: 09-08-2023 ambulatory DAMIAN HERNÁNDEZ [facility] Start: 09-07-2023 End: 09-07-2023 Evaluation and management of inpatient EDWINA CROCKETT [facility] Start: 09-07-2023 Telephone encounter [facility] Comment on above: Hospital Follow-up Start: 09-01-2023 End: 09-06-2023 Evaluation and management of inpatient [facility] Start: 09-01-2023 End: 09-07-2023 Evaluation and management of inpatient [facility] Start: 09-01-2023 End: 09-01-2023 [facility] Start: 09-01-2023 End: 09-01-2023 Evaluation and management of inpatient MIKALA [facility] Start: 08-31-2023 End: 09-01-2023 Evaluation and management of inpatient MIKALA [facility] Start: 08-31-2023 End: 09-07-2023 Evaluation and management of inpatient ESPERANZA MOLINA [facility] Start: 08-17-2023 End: 08-17-2023 ambulatory KENIA CHRISTIEEY Not Available Start: 03-13-2023 End: 03-17-2023 Evaluation and management of inpatient MANOJ Daniels ROMANJoslyn Facility:[facility] Start: 03-07-2023 End: 03-07-2023 Emergency department patient visit Jeronimo Do DO Work Phone: [facility] Comment on above: Left flank pain (Monserrat almas Dx) Start: 01-03-2023 End: 01-04-[address] BLAS RICKS . Facility:[facility] Start: 11-14-2022 End: 11-14-2022 Emergency department patient visit Manoj Flores MD Work Phone: [facility] Comment on above: Acute pharyngitis, u nspecified etiology (Primary Dx) Start: 05-25-2022 End: 05-29-2022 Evaluation and management of inpatient RACQUEL Radha SIMPSON [facility] Start: 05-25-2022 End: 05-29-2022 Evaluation and management [...] End: 06-08-2021 Subsequent hospital visit by physician [facility] Covid19 Pat Screening Schedule [facility] Comment on above: Sinus congestion; Cough; Fever, unspecified fever cause Start: 09-30-2020 End: 09-30-2020 Subsequent hospital visit by physician Racquel Simpson [facility] Comment on above: Suspected COVID-19 v irus infection Start: 07-30-2020 End: 07-30-2020 Subsequent hospital visit by physician Racquel Simpson [facility] Comment on above: Suspected COVID-19 v irus infection Start: 09-19-2019 End: 09-19-2019 Emergency department patient visit Pilar Garcia MD Work Phone: [facility] Comment on above: Lower abdominal pain (Primary Dx); Complication of in second trimester Start: 05-06-2019 End: 05-06-2019 Emergency department patient visit Hollie York Work Phone: [facility] Comment on above: Strain of lumbar reg ion, initial encounter (Primary Dx); Morning sickness; Acute pharyngitis, unspecified etiology Procedures Date Procedure Procedure Detail Performing Clinician Start: 03-15-2023 Antibody screen PILAR LOERA Comment on above: Order Comment: Speci men Type: BLOOD SPECIMEN Ordering Facility: [facility] Address: [address] [place] [address] Performed By: #### 1 [id number], [id number] #### [facility] CLIA [id number] [address] [facility] [id number] [place] [address] [place] Start: 03-07-2023 Comprehensive metabo lic panel Jeronimo Do DO Work Phone: Start: 03-07-2023 Urinalysis microscopic only Jeronimo Do DO Work Phone: Start: 03-07-2023 Urnls dip stick/tabl et rgnt auto w/o microscopy Jeronimo Do DO Work Phone: Start: 11-14-2022 Iaadiadoo streptococ cus group a Manoj Flores MD Work Phone: Start: 05-26-2022 Protein total xcpt refractometry urine Latoya Cherry DO Work Phone: Start: 05-26-2022 Comprehensive metabo lic panel Latoya Cherry DO Work Phone: Start: 05-25-2022 Comprehensive metabo lic panel Lynn Barbosa Nelson DO Work Phone: Start: 05-25-2022 T. PALLIDUM AB Tammy Cherry MD Work Phone: Start: 05-25-2022 Ct head/brain w/o co ntrast material Lynn N Nelson DO Work Phone: Start: 05-25-2022 Antibody screen Tommy haile MD Work Phone: Start: 05-25-2022 End: 05-25-2022 section Tammy Cherry MD Work Phone: Start: 05-25-2022 Comprehensive metabo lic panel Alejandrina Maria Luisa Zacarias DO Work Phone: Start: 05-25-2022 Blood typing serologic abo Alejandrina Maria Luisa Zacarias DO Work Phone: Start: 05-25-2022 SURGICAL [...] Treatment Date Care Activity Detail Author Start: 2052 Respiratory Syncytia l Virus (RSV) or age 60 yrs+ (1 - 1-dose 60+ series) Respiratory Syncytial Virus (RSV) or age 60 yrs+ (1 - 1-dose 60+ series) [facility] Start: 09-02-2033 DTaP,Tdap and Td Vac cines (6 - Td or Tdap) DTaP,Tdap and Td Vaccines (6 - Td or Tdap) [facility] Start: 09-02-2033 DTaP/Tdap/Td vaccine (6 - Td or Tdap) DTaP/Tdap/Td vaccine (6 - Td or Tdap) [facility] Start: 09-09-2024 Adult BMI Screening Adult BMI Screen ing [facility] Start: 09-06-2024 Adult BMI Screening Adult BMI Screen ing [facility] Start: 04-22-2024 COVID-19 Vaccine (1 - 2023-24 season) COVID-19 Vaccine ( season) [facility] Start: 03-22-2024 Influenza vaccination Flu vaccine (# 1) [facility] Start: 06-01-2023 Depression Screen Depression Screen [facility] Start: 03-22-2023 Influenza vaccination Flu vaccine (# 1) [facility] Start: 03-08-2023 End: 03-07-2024 US RETROPERITONEAL COMPLETE US RETROPERITONEAL COMPLETE Imaging STAT Left flank pain Expected: 03/08/2023, Expires: 03/07/2024 [facility] Comment on above: Expected: 03/08/2023 , Expires: 03/07/2024 Start: 2022 Screening for malign ant neoplasm of cervix [facility] Start: 06-01-2022 End: 06-01-2022 ambulatory 06/01/2022 Visit Obstetrics and Gynecology Kesha Pritchett, DO [address] [place] [address] [facility] R[facility] [place] Start: 03-22-2022 Influenza vaccination Flu vaccine (# 1) [facility] Start: 04-22-2021 Influenza vaccination Flu vaccine (# 1) [facility] Work Phone: Start: 04-22-2020 Influenza vaccination Flu vaccine (# 1) [place] Start: 04-22-2019 Influenza vaccination Flu vaccine (# 1) [place] Start: 2013 Cervical cancer screen Cervical canc er screen [place] Start: 2013 Screening for malign ant neoplasm of cervix [facility] Start: 2011 DTaP/Tdap/Td vaccine (1 - Tdap) DTaP/Tdap/Td vaccine (1 - Tdap) [facility] Start: 2010 Adult BMI Follow Up Plan Adult BMI F ollow Up Plan [facility] Start: 2010 Hepatitis C screening Hepatitis C sc reen [facility] Start: 2007 HIV screen HIV screen [place], [place] Start: 2007 HIV screening HIV screen [facility] Start: 2007 HPV vaccine (1 - Fem angelica 3-dose series) HPV vaccine (1 - Female 3-dose series) [place] Start: 2005 Varicella Vaccine (1 of 2 - 13+ 2-dose series) Varicella Vaccine (1 of 2 - 13+ 2-dose series) [facility] Start: 2004 COVID-19 Vaccine (1) COVID-19 Vaccin e (1) [facility] [employer] Phone: Start: 2004 Depression Screen Depression Screen [facility] Start: 2004 Depression Screening Depression Scre ening [facility] Start: 2004 Tobacco Screening Tobacco Screening [facility] Start: 2003 DTaP/Tdap/Td vaccine (1 - Tdap) DTaP/Tdap/Td vaccine (1 - Tdap) [facility] [employer] Phone: Start: 2003 DTaP/Tdap/Td vaccine (5 - Tdap) DTaP/Tdap/Td vaccine (5 - Tdap) [facility] Start: 1996 Polio vaccine (4 of 4 - 4-dose series) Polio vaccine (4 of 4 - 4-dose series) [facility] Start: 1993 Varicella vaccine (1 of 2 - 2-dose childhood series) Varicella vaccine (1 of 2 - 2-dose childhood series) [facility] Start: 02-06-1993 COVID-19 Vaccine (#1) COVID-19 Vacci ne (#1) [facility] Start: 1992 Hepatitis C screening Hepatitis C sc reen [place] End: 09-30-2020 COVID-19 COVID-19 Lab Routine Suspected COVID-19 virus infection 1 Occurrences starting 09/30/2020 until 09/30/2020 [place] Comment on above: 1 Occurrences starti ng 09/30/2020 until 09/30/2020 COVID-19 [place] End: 06-08-2021 COVID-19 COVID-19 Lab Routine Sinus congestion Cough Fever, unspecified fever cause 1 Occurrences starting 06/08/2021 until 06/08/2021 [employer] Phone: Comment on above: 1 Occurrences starti ng 06/08/2021 until 06/08/2021 End: 07-30-2020 Covid-19 Ambulatory Covid-19 Ambulatory Lab Routine Suspected Covid-19 Virus Infection 1 Occurrences starting 07/30/2020 until 07/30/2020 [place] Comment on above: 1 Occurrences starti ng 07/30/2020 until 07/30/2020 Covid-19 Ambulatory Covid-19 Amb ulatory Lab Routine Suspected COVID-19 virus infection 07/30/2020 10:34 AM EST [place] End: 05-06-2019 CRP [Mass/Vol] C-reactive protein Lab Routine One Time for 1 Occurrences starting 05/06/2019 until 05/06/2019 [place] Comment on above: One Time for 1 Occur rences starting 05/06/2019 until 05/06/2019 CRP [Mass/Vol] C-reactive prote in Lab STAT 05/06/2019 8:32 AM EDT [place] End: 05-29-2022 DRUG SCREEN MULTI URINE DRUG SCREEN MULTI URINE Lab Add-On One Time for 1 Occurrences starting 05/29/2022 until 05/29/2022 [employer] Phone: Comment on above: One Time for 1 Occur rences starting 05/29/2022 until 05/29/2022 Oxygen therapy [[facility] Data Set] Initiate Oxygen Therapy Protocol Respiratory Care Routine Daily until discontinued starting 05/25/2022 [employer] Phone: Comment on above: Daily until disconti nued starting 05/25/2022 Spirometry panel Incentive kavitha metry Respiratory Care Routine Every 2hr while awake until discontinued starting 05/25/2022 [employer] Phone: Comment on above: Every 2hr while awak e until discontinued starting 05/25/2022 End: 03-07-2023 US RETROPERITONEAL COMPLETE US RETROPERITONEAL COMPLETE Imaging Routine Once for 1 Occurrences starting 03/07/2023 until 03/07/2023 [facility] Work Phone: Comment on above: Once for 1 Occurrenc es starting 03/07/2023 until 03/07/2023 Immunizations Immunization Date Immunization Notes Care Provider Abner kimbrough 09-02-2023 tetanus toxoid, redu servando diphtheria toxoid, and acellular pertussis vaccine, adsorbed [facility] 06-01-2022 influenza, injectabl e, quadrivalent, preservative free Manoj Flores MD Work Phone: [facility] 05-29-2022 measles, mumps and rubella virus vaccine Tommy Cherry MD Work Phone: [facility] 05-25-2022 diphtheria, tetanus toxoids and acellular pertussis vaccine, unspecified formulation Tommy Cherry MD Work Phone: [facility] Work Phone: 07-21-2018 influenza, injectabl e, quadrivalent, preservative free Manoj Flores MD Work Phone: [facility] Work Phone: 05-18-2017 influenza, injectabl e, quadrivalent, preservative free Manoj Flores MD Work Phone: [facility] Work Phone: 05-25-2016 influenza virus vaccine, unspecified formulation Manoj Flores MD Work Phone: [facility] Work Phone: 05-27-2015 influenza virus vaccine, whole virus Manoj Flores MD Work Phone: [facility] Work Phone: 05-22-2015 influenza virus vaccine, unspecified formulation Manoj Flores MD Work Phone: [facility] Work Phone: 06-30-2014 influenza virus vaccine, unspecified formulation Manoj Flores MD Work Phone: [facility] Work Phone: 01-18-2014 tuberculin skin test ; purified protein derivative solution, intradermal Hollie York [facility] 06-15-2013 influenza virus vaccine, whole virus Manoj Flores MD Work Phone: [facility] Work Phone: 05-19-2011 influenza virus vaccine, unspecified formulation Manoj Flores MD Work Phone: [facility] Work Phone: 04-14-2005 measles, mumps and rubella virus vaccine Manoj Flores MD Work Phone: [facility] Work Phone: 11-25-1993 diphtheria, tetanus toxoids and acellular pertussis vaccine, unspecified formulation Manoj Flores MD Work Phone: [facility] Work Phone: 11-25-1993 haemophilus influenz ae type b vaccine, conjugate unspecified formulation Manoj Flores MD Work Phone: [facility] Work Phone: 11-25-1993 hepatitis B vaccine, pediatric or pediatric/adolescent dosage Manoj Flores MD Work Phone: [facility] Work Phone: 11-25-1993 measles, mumps and rubella virus vaccine Manoj Flores MD Work Phone: [facility] Work Phone: 11-25-1993 trivalent poliovirus vaccine, live, oral Manoj Flores MD [facility] Work Phone: 03-12-1993 diphtheria, tetanus toxoids and pertussis vaccine Manoj Flores MD Work Phone[facility] Work Phone: 03-12-1993 haemophilus influenz ae type b vaccine, conjugate unspecified formulation Manoj Flores MD Work Phone: [facility] Work Phone: 03-12-1993 hepatitis B vaccine, pediatric or pediatric/adolescent dosage Manoj Flores MD Work Phone: [facility] Work Phone: 1992 diphtheria, tetanus toxoids and pertussis vaccine Manoj Flores MD Work Phone: [facility] Work Phone: 1992 haemophilus influenz ae type b vaccine, conjugate unspecified formulation Manoj Flores MD Work Phone: [facility] Work Phone: 1992 hepatitis B vaccine, pediatric or pediatric/adolescent dosage Manoj Flores MD Work Phone: [facility] Work Phone: 1992 trivalent poliovirus vaccine, live, oral Manoj Flores MD Work Phone: [facility] Work Phone: 1992 diphtheria, tetanus toxoids and pertussis vaccine Manoj Flores MD Work Phone: [facility] Work Phone: 1992 haemophilus influenz ae type b vaccine, conjugate unspecified formulation Manoj Flores MD Work Phone: [facility] Work Phone: 1992 trivalent poliovirus vaccine, live, oral Manoj Flores MD Work Phone: [facility] Work Phone: Payers Date Payer Category Payer Medicaid [employer] HMO [id number] 2023-Present [phone] [address] [place] [address] [id number] 2015 Unknown JULIA DELEON [facility] MEDICAID xxxxxxxxxxx 2015-Present [phone] CLAIMS DEPARTMENT [address] [place] [address] xxxxxxxxxxx [id number] 1992 Unknown [id number] [id number] 1992 Unknown [id number] [id number]3 1992 Unknown [id number] 2.16.840.1.704134.3.579.2.593 1992 Unknown [id number] 2.16.840.1.295378.3.579.2.593 1992 Unknown [id number] 2.16.840.1.006784.3.579.2.593 1992 Unknown [id number] 2.16.840.1.911779.3.579.2.1286 1992 Unknown [id number] 2.16.840.1.488036.3.579.2.1286 1992 Unknown [id number] 2.16.840.1.652353.3.579.2.1286 1992 Unknown [id number] 2.16.840.1.559648.3.579.2.1286 1992 Unknown [id number] 2.16.840.1.692824.3.579.2.1286 1992 Unknown [id number] 2.16.840.1.448965.3.579.2.1286 1992 Unknown [id number] 2.16.840.1.254012.3.579.2.1286 1992 Unknown [id number] 2.16.840.1.549320.3.579.2.1286 1992 Unknown [id number] 2.16.840.1.294981.3.579.2.1286 1992 Unknown [id number] 2.16.840.1.931674.3.579.2.1286 1992 Unknown [id number] 2.16.840.1.757211.3.579.2.1286 1992 Unknown [id number] 2.16.840.1.760557.3.579.2.1286 1992 Unknown [id number] 2.16.840.1.089236.3.579.2.1259 1992 Unknown [id number] 2.16.840.1.186902.3.579.2.1259 1992 Unknown [id number] 2.16.840.1.693233.3.579.2.174 1992 Unknown [id number] 2.16.840.1.764629.3.579.2.174 1959 Self-pay 1959 Unknown [id number] [id number]. [id number] 1959 Unknown [id number] Social History Date Type Detail Facility Start: 07-30-2020 End: 03-07-2023 Tobacco smoking status COIS Former smoker [facility] [employer]) Start: 02-16-2020 End: 02-15-2022 History of tobacco use Cigarette Smoker [place] Start: 07-30-2020 End: 02-12-2024 Cigarettes smoked current (pack per day) - Reported [place] Start: 07-30-2020 End: 03-07-2023 Tobacco use and exposure Never used [facility] [place] Start: 07-30-2020 End: 06-02-2024 Alcohol intake Current non-drinker of [facility] (finding[facility] Start: 07-14-2015 Alcohol Comment less than once a wee k [place] Start: 1992 Sex Assigned At Not on file M [facility] [place] Start: 05-06-2019 End: 02-12-2024 Alcohol intake No [place] [employer] Start: 02-16-2020 End: 02-15-2022 History of tobacco use Current smoker [facility] Work Phone: Start: 11-04-2022 End: 11-14-2022 Exposure to SARS-CoV-2 (event) Not sure [facility] Work Phone: Start: 03-07-2023 History SDOH Alcohol Frequency 1 [facility] Start: 03-07-2023 History SDOH Alcohol Std Drinks 0 [facility] Tobacco smoking stat [facility] Tobacco smoking consumption unknown [facility] Inst[facility] How often to you hav e a drink containing alcohol? Never [employer] Clinical Notes 09-19-2019 to 03-08-2024 Telephone Encounter - An Murray - 09/08/2023 1:20 PM ESTTelephone Encounter - FARIDEH Grimes - 09/08/2023 1:20 PM ESTTelephone Encounter - An Irwinjosias - 09/08/2023 1:20 PM EST Note Date & Type Note Facility 03-08-2024 Note HNO ID: [id number] Author: AROLDO CONN RT(R) Service: ? Author Type: Acute Care Nurse Practitioner Type: Progress Notes Filed: 03/08/2024 17:25 Note Text: Radiology Service Progress Note DATE OF SERVICE: March 08, 2024 TIME: 5:24 PM PATIENT IDENTITY VERIFICATION COMPLETED USING TWO (2) STANDARD IDENTIFIERS: Name and Date of confirmed by patient verbally and Name and Date of confirmed by identification band. FALL SCREENING: Has the patient had 2 falls in the last year or 1 fall with injury or currently using an Ambulatory Assistive Device (Walker, Cane, Wheelchair, Crutches, etc.)? Emergency Room Patient: Screened in ED PATIENT GENDER DATA: Female. status: : No status: NO. PATIENT RELEVANT IMPLANT DATA REVIEWED: Yes PATIENT PRESENTS WITH AN IMPLANTABLE OR ATTACHED DEVELOPMENT PLANNER: No ALLERGIES: Reviewed and unchanged CONTRAST ALLERGY: NO. EXAM: CT -CONTRAST INDUCED NEPHROPATHY RISK FACTORS: Not applicable CREATININE: Creatinine Date Value Ref Range Status 03/17/2023 0.67 0.58 - 0.96 mg/dL Final 03/16/2023 0.71 0.58 - 0.96 mg/dL Final 03/15/2023 0.77 0.58 - 0.96 mg/dL Final Estimated Glomerular Filtration Rate Date Value Ref Range Status 03/17/2023 121 >=60 mL/min/1.73m? Final Comment: Estimated Glomerular Filtration Rate (eGFR) is calculated using the 2020 CKD-EPI creatinine equation. This equation utilizes serum creatinine, sex, and age as parameters. The creatinine assay has traceable calibration to isotope dilution-mass spectrometry. Refer to KDIGO guidelines for clinical interpretation. In patients with unstable renal function, e.g. those with acute kidney injury, the eGFR may not accurately reflect actual GFR. eGFR- Date Value Ref Range Status 10/14/2017 >60 Final P.O.C.T. RESULTS: N/A March 08, 2024 TREATMENT: N/A PERIPHERAL IV DATA: Inpatient - refer to LDA documentation RADIOLOGY DEPARTMENT: CT; Exam(s) Completed: Brain and CTA Brain SIGNATURE: RT Adonay(R) PATIENT NAME: Qian Clements DATE: March 08, 2024 TIME: 5:24 PM [facility] 09-08-2023 Miscellaneous Notes Pt called stating that she had a telehealth visit with HERNAN Freire this AM during which her Bps were elevated. Previous history of eclampsia during this with Mg Sulfate administration . Currently her B/P was 167/114. She took her labetalol 400 mg and Hydralazine 50 mg at 0700 this am. She is experiencing a headache since this AM that is not relieved by 1000 mg of Tylenol, N/V, and has flashes of light in her vision since this afternoon. She is currently being driven to [facility] by her boyfriend. Dr. Landa updated. I saw and evaluated the patient with the student HERNAN. I reviewed the student CNM note. I agree with the student CNM findings and plan with review of items for learning. I have made adjustments & discussed note & care for this patient. Breana Harris APRN, CNM talked with pt via phone with JENNIFER Ramirez documented in this encounter [facility]23 Telephone encounter Note Pt called stating that she had a telehealth visit with HERNNA Freire this AM during which her Bps were elevated. Previous history of eclampsia during this with Mg Sulfate administration . Currently her B/P was 167/114. She took her labetalol 400 mg and Hydralazine 50 mg at 0700 this am. She is experiencing a headache since this AM that is not relieved by 1000 mg of Tylenol, N/V, and has flashes of light in her vision since this afternoon. She is currently being driven to [facility] by her boyfriend. Dr. Landa updated. [facility]23 Telephone encounter Note I saw and evaluated the patient with the student CNM. I reviewed the student CNM note. I agree with the student CNM findings and plan with review of items for learning. I have made adjustments & discussed note & care for this patient. Breana Harris APRN, CNM talked with pt via phone with JENNIFER Ramirez [employer] Work Phone: 09-07-2023 Miscellaneous Notes Message from the 09/06/23 discharge list per RDG. He signed off patient care from [facility] Dx Eclampsia [id number] mitral regurgitation History of reported still's disease Patient to f/u in 1 to 2 weeks post d/c bvb PT STILL ADMITTED [facility] Telephone encounter Note Message from the 09/06/23 discharge list per RDG. He signed off patient care from [facility] Dx Eclampsia Ctqx-wf-kyawvwgy mitral regurgitation History of reported still's disease Patient to f/u in 1 to 2 weeks post d/c bvb [facility] 09-07-2023 Telephone encounter Note PT ST[facility] AD[facility]ITTED [facility] 03-17-2023 Note HNO ID: [id number] Author: Domonique Kaplan Service: ? Author Type: Electronic Organ Technician Type: Plan of Care Filed: 03/17/2023 2:18 PM Note Text: PHARMACY BEDSIDE DELIVERY SERVICE Patient Name: Qian Clements The marked outpatient medications were F[facility] at: [facility] and delivered to the patient's bedside [...] your Primary Care Provider. Domonique Kaplan PAGER: [phone] March 17, 2023 2:17 PM [facility] 03-17-2023 Note HNO ID: [id number] Author: Kristin Wang RPh Service: Pharmacy Author [...] Wang RPh March 17, 2023 12:41 PM [id number] Medication List START taking these medications amoxicillin-clavulanic [...] Your Medications These medications were sent to [facility] [address] [place] [address] Hours: Tuesday-Tuesday 7am-8pm, Tuesday, Tuesday and Holidays 9am-5pm amoxicillin-clavulanic acid 875-125 mg per tablet multivitamin 28 mg iron- 800 mcg tab(s) [facility] 03-16-2023 Note HNO ID: [id number] Author: Manoj Ramos MD Service: General Internal [...] CBC, Coags, BMP, Mg, Phos Recent Labs 03/16/2392403/15/23 1510 03/14/23 0954 WBC 8.78 10.48 11.23* [...] Plan: - Consider (more content not included)... [facility] 03-15-2023 Note HNO ID: [id number] Author: Domonique Kaplan Service: ? Author Type: Electronic Organ Technician Type: Plan of Care Filed: 03/15/2023 12:18 PM Note Text: Insurance investigation completed Patient has active prescription insurance: Yes - Patient's insurance is in-network with F Insurance loaded into [employer]: Yes Test claim was completed to verify insurance is active: Successful Any questions, please contact your medication veterans' coordinator. Pager #: [phone] [facility] 03-15-2023 Note HNO ID: [id number] Author: Manoj Ramos MD Service: General Internal Medicine Author Type: Physician Type: Progress Notes Filed: 03/15/2023 2:05 PM Note Text: Internal Medicine Pepe progress [...] infection first. Ferritin (more content not included)... [facility] 03-14-2023 Note HNO ID: [id number] Author: Robyn Borrego RN Service: ? Author Type: Registered Nurse Type: Nursing Progress Note Filed: 03/14/2023 6:24 PM Note Text: 1814 Patient staes she is having spotting. Jeremiah Pepe notified and states to monitor. SViki Borrego RN [facility] 03-14-2023 Note HNO ID: [id number] Author: Kristin Wang RPh Service: Pharmacy Author Type: Pharmacist Type: Plan of Care Filed: 03/14/2023 12:02 PM Note Text: PHARMACY MEDICATION REVIEW Patient Name: Qian Clements : 1990 The following medications were updated within the [employer] medication list: Medications ADDED to [employer] medication list vitamin 1 tablet PO daily Acetaminophen 650 mg PO Q6hr prn pain, fever Ondansetron 4 mg PO q6hr prn N/V Medications CHANGED on [employer] medication list none Medications REMOVED from [employer] medication list Pulmicort Flexhaler Colchicine Omeprazole Prednisone Additional comments: patient confirmed stopped taking dextroamphetamine-amphetamine. The below information represents the best possible medication history: Yes Medication history completed by: Pharmacist: Kristin Wang RPh Source of history: Patient: Reliability of source: Appears reliable, clearly identified: Medication name, Medication dose, Medication route, and Medication frequency and Pharmacy records: [facility] Medication nonadherence identified: No barriers noted Reconciliation completed: Yes Completed by: Kristin Wang PharmD Discussed with LIP, plans to add vitamin based on updated medication history Patient interested in Bedside Delivery Services or using OP Pharmacy at discharge? Unable to assess Preferred outpatient pharmacy: [facility] [address] [place] [address] [address] [facility] [phone] Allergies: Ciprofloxacin Vomiting Codeine Vomiting Comment:Convulsions per [...] once daily. Facility-Administered Medications: None Kristin Wang [facility] 03/14/2023 [id number] [facility] 03-14-2023 Note HNO ID: [id number] Author: Manoj Ramos MD Service: General Internal [...] until signed by staff physician. SIGNATURE: Viktor Akhtar MS5 PATIENT NAME: Qian Clements DATE: March 14, 2023 TIME: 8:26 AM Pager: refer to paging application After 5 PM on weekdays and after 3 PM on weekends page Night Team [facility] STAFF PHYSICIAN NOTE OF PERSONAL INVOLVEMENT IN CARE I have reviewed the progress note antoinette (more content not included)... [facility] 03-13-2023 Note HNO ID: [id number] Author: Sabrina Castro MD Service: Gynecology Author Type: Resident Type: Plan of Care Filed: 03/13/2023 5:19 PM Note Text: Attestation signed by Pinky Rodriguez DO at 03/13/2023 6:04 PM Routine OB guidelines/recommendations as documented. 03/13/2023 6:04 PM Pinky Rodriguez DO COAL FEEDER OPERATOR Resident Plan of Care Note 05:13 PM Primary care paged SCREEN PRINTING PASTER regarding recommended imaging for nephrolithiasis in the setting of 1st trimester of . Advised team to begin with renal bladder ultrasound. Advised team to avoid abdominal CT unless absolutely necessary. General guidelines are listed below. Sabrina Castro MD COAL FEEDER OPERATOR Resident, PGY-3 General guidelines In general, goals [...] for use in acute pain. Avoid NSAIDs. data analyst report writer narcotic exposure can lead to maternal and [...] - Could use if needed Avoid Tramadolol/Barbuturites. [facility] 03-13-2023 Note HNO ID: [id number] Author: Maira Egan RT(R) Service: Radiology Author [...] RT Angel(R) March 13, 2023 1:06 PM [facility] 03-07-2023 Hospital Discharg e instructions Jeronimo Do DO - 03/07/2023 9:43 AM EDT Continue antibiotic as presccribed. Continue Tylenol as needed for pain. Follow-up with your OB for re evaluation. The following attachments cannot be sent through Care Everywhere.Flank Pain (Cymraes)documented in this encounter [facility] 05-29-2022 History of Presen t illness Narrative Images from the original note [...] - EBL 1000 - S/p TXA and MS cytotec - Bleeding stable, vitals stable - [...] patient Attending Physician: Dr. Dilip Curiel, DO Lab Rn Resident 05/29/2022, 2:59 AM Attending Physician Statement [...] 05/29/22 POST OPERATIVE DAY # 3 Qian Clemnets is a 31 y.o. female This patient [...] reviewed with patient Attending Physician: Dr. Pawel Cherry DO Lab Rn Resident 05/28/2022, 2:43 AM Date: 05/28/2022 Time: [...] Sudden Infant Syndrome were reviewed with recommendations. sleeping, back [...] patient Attending Physician: Dr. Joanne Cherry, DO Lab Rn Resident 05/27/2022, 12:19 AM Date: 05/27/2022 Time: [...] Will continue to monitor Abdi Gómez MD Lab Rn Resident 05/26/2022, 2:52 PM Resident Interval Magnesium [...] mg/hr (05/26/22622) lactated ringers 75 mL/hr at 05/26/22622 sodium chloride Vitals: Vitals: 05/26/22 0701 05/26/22 [...] Next magnote @ 1430 Abdi Gómez MD Lab Rn Resident 05/26/2022, 10:26 AM POST OPERATIVE DAY [...] - Patient received 6g mag bolus in [place] >2g/hr > 1g/hr - Seizure like activity [...] w/ SF at outside hospital - Denies JONES at this time Intra-OP Hemorrhage - EBL 1000 ml - CBC pending this am - S/p TXA x1 and Cytotec 1000 mg MS Asthma - Albuterol inhaler PRN Depression/ADHD - [...] patient Attending Physician: Dr. Celestine Crawley DO Lab Rn Resident 05/26/2022, 4:14 AM Resident Interval Magnesium [...] - Next mag note @ 2320 - Plan to d/c abrams at this time Savana Crawley DO Lab Rn Resident 05/26/2022, 4:10 AM Resident Interval Magnesium [...] 03:01 PM BMP: Recent Labs 05/25/22 1501 05/25/22 2127 NA 134* 134* K 3.8 4.2 CL [...] Will continue to monitor Savana Crawley DO Lab Rn Resident 05/26/2022, 12:30 AM Resident Interval Magnesium [...] Will continue to monitor Savana Crawley DO Lab Rn Resident 05/25/2022, 7:25 PM [place]IRITUAL C[place] [facility] [place] Shift date: 05/25/2022 Shift day: Tuesday Shift # 1 Room # 0703/0703-01 Name: Qian Clements Hinduism: Place of presybeterian: Referral: [place] Alert Admit Date & Time: 05/25/2022 2:31 PM Assessment: Qian Clements is a 31 y.o. female, 32 weeks , who was brought from a hospital in [place]. Per EMS, patient had very high BP and had a seizure on the way here. The OB explained that they would have to deliver the baby. Upon entering the room group underwriter observes patient was tearful. She said she had no needs from chrome worker at that time. Mother and family members arrived shortly and appeared concerned. Technical Planner was unable to assess them after walking them to the pt's room. Intervention: Ocular Pathologist introduced self and title as chrome worker. Technical Planner provided a supportive presence and words of comfort. Outcome: Pt appeared comforted by chrome worker's presence. Plan: Chaplains will remain available to offer spiritual and emotional support as needed. . Spiritual Care Department [facility] [phone] 05/25/22 1504 Encounter Summary Service Provided For: Patient;Family Referral/Consult From: Multi-disciplinary team Support System Parent;Family members Last Encounter 05/25/22 Complexity of Encounter Moderate Begin Time 1430 End Time 1450 Total Time Calculated 20 min Crisis Type ([place] Alert) Assessment/Intervention/Outcome Assessment Coping;Tearful Intervention Active listening;Explored/Affirmed feelings, thoughts, concerns Outcome Expressed feelings, needs, and concerns documented in this encounter [facility] Work Phone: 05-25-2022 Hospital Discharg e tiffanie Padron, - 05/25/2022 4:28 PM EDT Images from [...] your doctor if you can take an ntrl-dcr-wewexvx medicine. If you think your pain medicine [...] Where can you learn more? Go to [email or web address] and sign in to your [employer] account. Enter M806 in the Search Health Information box to learn more about Section: What to Expect at Home. If you do not have an account, please click on the Sign Up Now link. Current as of: October 14, 2021 Content Version: 13.4 [employer]. Care instructions adapted under license by [employer]. If you have questions about a medical condition or this instruction, always ask your healthcare professional. [employer] disclaims any warranty or liability for your [...] Call the Suicide and Crisis Lifeline at 506. Call 5-356-879-AQGZ (). Text HOME to 041404 to access the Crisis Text Line. Consider [...] When should you call for help? Call 831 if: You feel you cannot stop from [...] Where can you learn more? Go to [email or web address] and sign in to your [employer] account. Enter Y765 in the Search Health Information box to learn more about Depression After Childbirth: Care Instructions. If you do not have an account, please click on the Sign Up Now link. Current as of: September 30, 2021 Content Version: 13.4 [employer]. Care instructions adapted under license by [employer]. If you have questions about a medical condition or this instruction, always ask your healthcare professional. 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 Take and record your blood pressure at [...] you have had preeclampsia, you have a edrsiv-sbeu-vmeypxm risk of heart disease, stroke, and kidney [...] Where can you learn more? Go to [email or web address] and sign in to your [employer] account. Enter Q718 in the Search Health Information box to learn more about Learning About Preeclampsia After Childbirth. If you do not have an account, please click on the Sign Up Now link. Current as of: October 14, 2021 Content Version: 13.4 [employer]. Care instructions adapted under license by [employer]. If you have questions about a medical condition or this instruction, always ask your healthcare professional. [employer] disclaims any warranty or liability for your use of this information. documented in this encounter [facility] [employer] Phone: 05-25-2022 Evaluation note Diagnosis PLTCS 05/25/22 F Apg Wt 4#15; PLTCS 05/25/22 F Apg 8/9 Wt 4#15- Primary delivery, without mention of indication, delivered, with or without mention of antepartum condition Eclampsia (G6) Other convulsions state Routine follow-up Postoperative state Other postprocedural status documented in this encounter [facility] [employer] [employer] Phone: [phone] Evaluation note* Diagnosis PLTCS 10/12/11 F Apg 8/9 Wt 4#15- Primary delivery, without mention of indication, delivered, with or without mention of antepartum condition PLTCS 10 F Apg Wt 4#15 delivery, without mention of indication, delivered, with or without mention of antepartum condition Eclampsia (G6) Other convulsions state Routine follow-up Postoperative state Other postprocedural status Viral URI with cough- Primary Acute upper respiratory infections of unspecified site documented [facility] Discharge instructions* Instructions * Pilar Garcia MD - 09/19/2019 Go immediately from here to the [facility] OB department to be evaluated by the OB nurse. Donot stop anywhere on the way. Do not eat or drink before getting there. * Attachments The following attachments cannot be sent through Care Everywhere. * : Abdominal Pain (Cymraes) [facility] Phone: evaluation note* Diagnosis Sinus congestion Other diseases of nasal cavity and sinuses Cough Fever, unspecified fever cause documented [facility] Phone: evalouiess note* Diagnosis Lower abdominal pain- Primary Abdominal pain, other specified site Complication of in second trimester documented [facility] Phone: evaliqiaox note* Diagnosis Acute pharyngitis, unspecified etiology- Primary documented in this encounter [facility] [employer] Phone: evalmvrvzo note* Diagnosis Left flank pain- Primary Abdominal pain, unspecified site documented in this encounter [facility] [employer] [facility]* Attachments The following attachments cannot be sent through Care Everywhere. * Sore Throat (Cymraes) [facility] [employer] Phone: Hospital Discharge instructions* Attachments The following attachments cannot be sent through Care Everywhere. * URI (Upper Respiratory Infection): Viral (Cymraes) documented in [facility]LOOK[facility] HospitalInstructionsNot on file documented in this encounterTriHealth Bethesda Butler HospitalHealthTeacher / GoNoodle SystemInstructionsNot on file documented in this encounterProOhiohealth Shelby HospitalM-DISC [facility] System Assessments Diagnosis Suspected COVID-19 virus infection Diagnosis Strain of lumbar region, initial encounter- Primary Morning sickness Mild hyperemesis gravidarum, unspecified as to episode of care Acute pharyngitis, unspecified etiology Advance Directives Documents on File Type Date Recorded Patient State [employer] Agent Expl anation ACP-Advance Directive ACP-Power of Voip Technician Latest Code Status on File Code Status Date Activated Date Inactivated Comments Full Code 08/15/2017 4:59 PM 08/15/2017 9:37 PM Full Code 07/14/2015 12:36 PM 07/14/2015 3:17 PM Full Code 07/14/2015 9:31 AM 07/14/2015 12:36 PM Documents on File Type Date Recorded 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 State [employer] Agent Expl anation Advance Directives and Living Will Power of Voip Technician Latest Code Status on File Code Status [...] Date Activated Date Inactivated Comments Full Code 08/31/2023 4:07 PM 09/07/2023 7:50 PM Code Status History Code Status Date Activated Date Inactivated Comments Full Code 09/28/2019 12:31 AM 09/30/2019 7:59 PM Latest Code Status on File Code Status Date Activated Date Inactivated Comments Full Code 09/08/2023 8:43 PM 09/10/2023 4:18 PM Code Status History Code Status Date Activated Date Inactivated Comments Full Code 08/31/2023 4:07 PM 09/07/2023 7:50 PM Full Code 09/28/2019 12:31 AM 09/30/2019 7:59 PM Date Activated Date Inactivated Comments 05/25/2022 8:24 PM 05/29/2022 6:21 PM Date Activated Date Inactivated Comments 05/25/2022 2:37 PM 05/25/2022 4:14 PM Date Activated Date Inactivated Comments 08/15/2017 4:59 PM 08/15/2017 9:37 PM Date Activated Date Inactivated Comments 07/14/2015 12:36 PM 07/14/2015 3:17 PM Date Activated Date Inactivated Comments 07/14/2015 9:31 AM 07/14/2015 12:36 PM Discharge Instructions * Attachments The following attachments cannot be sent through Care Everywhere. * Sore Throat (Cymraes) * : Morning Sickness (Cymraes) * Back: Strain (Cymraes) documented in this encounter Summary Purpose Family History No Family History Records FoundNo Family History Records FoundNo Family History Records FoundNo Family History Records FoundNo Family History Records FoundNo Family History Records FoundNo Family History Records Found Reason for Referral Specialty Diagnoses / Procedures Referred By Contac t Referred To Contact Radiology Diagnoses Left flank pain Procedures US RETROPERITONEAL COMPLETE Jeronimo Do, DO [address] [place] [address] Referral ID Status Reason Start Date Expiration Date Visits Re quested Visits Authorized [id number] Open 03/08/2023 03/07/2024 1 1 Additional Source [...] To Contact Diagnoses Eclampsia Tammy Cherry MD [address] [place] [id number] [facility] [address] [place] [address] Referral ID Status Reason Start Date Expiration Date Visits Re quested Visits Authorized [id number] 1 1 Reason Comments Pharyngitis C/o sore throat for 4 days. Reason Comments Flank Pain left flank pain, pt has been taking Macrobid for five days with no improvement Reason Onset Date Comments Hospital Follow-up 09/07/2023 Reason Comments Fatigue Fatigue, headache, c ough, fever x3 days Ordered Prescriptions (unrec ognized section and content) [...] 10 days 300 mL 0 11/14/2022 11/24/2022 Prescription Sig Dispensed Refills Start Date End Da te amoxicillin (AMOXIL) 500 MG capsule Take 1 capsule by mouth 3 times daily for 7 days 21 capsule 06/02/2024 06/09/2024 Scheduled Active and Recently Administ ered Medications [...] Rayne Bonilla RN)0825 (Given - Provider: Lory Kaab RN)1416 (Given - Provider: Lory Kaba RN)2139 (Given - Provider: Mónica Kong RN - Comment: patient off unit) 024 (Given - Provider: Mónica oKng RN)0836 (Given - Provider: Maritza Martinez RN)2124 (Given - Provider: Evelia Yu RN - Comment: Pt was in NICU)2129 (Not Given - Provider: Evelia Yu RN - Reason: Contraindicated - Comment: Given at 2124) 0250 (Given - Provider: Evelia Yu RN)0853 (Given - Provider: Robyn Interiano RN)153 (Due - Provider: Ross Ashley [facility])2129 (Due - Provider: Ross Ashley [facility]) cephALEXin (KEFLEX) capsule 500 mg (COMPLETED) 500 [...] break. 0826 (Given - Provider: Lory Kaba RN)2140 (Given - Provider: Mónica Kong RN) 0836 (Given - Provider: Maritza Martinez RN)2124 (Given - Provider: Evelia Yu RN) 0853 (Given - Provider: Robyn Interiano RN)2100 (Due) enoxaparin (LOVENOX) injection 40 mg 40 mg, SubCUTAneous, DAILY, First dose on Tue05/26/22 at 0900, Until Discontinued, Indication of Use: Prophylaxis-DVT/PE 0826 (Given - Provider: Lory Kaba RN) 0836 (Given - Provider: Maritza Martinez RN) 0853 (Given - Provider: Robyn Interiano RN) ferrous sulfate (FE TABS 325) EC tablet 325 mg 325 mg, Oral, DAILY WITH BREAKFAST, First dose on Tue05/26/22 at 1100, Until Discontinued 0826 (Given - Provider: Lory Kaba RN) 0836 (Given - Provider: Maritza Martinez RN) 0853 (Given - Provider: Robyn Interiano, CATHI) ibuprofen (ADVIL;MOTRIN) tablet 800 mg 800 mg, [...] Kong RN)1302 (Given - Provider: Maritza Martinez RN)2125 (Given - Provider: Evelia Yu RN - Comment: Pt was in NICU) 0647 (Given - Provider: Evelia Yu RN)1030 (Due - Provider: Ross Ashley [facility])1830 (Due - Provider: Ross Ashley [facility]) metroNIDAZOLE (FLAGYL) tablet 500 mg (COMPLETED) 500 [...] Martinez RN) 0853 (Given - Provider: Robyn Interiano, CATHI) polyethylene glycol (GLYCOLAX) packet 17 g 17 [...] Kaba RN) 0836 (Given - Provider: Maritza Martinez, CATHI) 0853 (Given - Provider: Robyn Interiano RN) scopolamine (TRANSDERM-SCOP) transdermal patch 1 patch 1 patch, TransDERmal, Administer over 72 Hours, EVERY 72 HOURS, First dose on Tue05/25/22 at 1700, delivers 1 mg over 3 days. Apply patch to hairless area behind the ear. 1658 (Due: Patch Removed - Provider: Soham Moreno RN)170 (Due) sodium chloride flush 0.9 % injection [...] Loss of IV access) 0900 (Due)2100 (Due) Wwsapfu-Fgprge-Miudr Pertussis (BOOSTRIX) injection 0.5 mL 0.5 mL, [...] Oral, EVERY 2 HOURS PRN, Starting on Tue05/27/22 at 0628, Until Discontinued, Sore Throat 1255 [...] Discontinued, Itching 2127 (Given - Provider: Evelia Yu RN) doxyLAMINE succinate (GNP SLEEP AID) tablet [...] Maritza Martinez, CATHI)2232 (Given - Provider: Evelia Yu RN) 0250 (Given - Provider: Evelia Yu RN)0852 (Given - Provider: Robyn Interiano, CATHI)1256 (Given - Provider: Robyn Interiano, CATHI) oxyCODONE (ROXICODONE) immediate release tablet 5 mg(Linked Group 1) 5 mg, Oral, EVERY 4 HOURS PRN, Starting on Tue05/26/22 at 0503, Until Discontinued, Pain Moderate (4-6) 0240 (See Alternative - Provider: Rayne Bonilla RN)0624 (See Alternative - Provider: Rayne Bonilla RN)1019 (See Alternative - Provider: Lory Kaba RN)1416 (See Alternative - Provider: Lory Kaba, RN)1829 (See Alternative - Provider: Lory Kaba, RN)2259 (See Alternative - Provider: Mónica Kong, CATHI) 0246 (See Alternative - Provider: Mónica Kong, RN)0836 (See Alternative - Provider: Maritza Martinez, RN)1834 (See Alternative - Provider: Maritza Martinez, RN)2232 (See Alternative - Provider: Evelia Yu, RN) 0250 (See Alternative - Provider: Evelia Yu, RN)0852 (See Alternative - Provider: Robyn Interiano, RN)1256 (See Alternative - Provider: Robyn Interiano, RN) oxytocin (PITOCIN) 10 unit bolus from [...] Care Teams (unrecognized sec tion and content) Strip Stamp Straightener Relationship Specialty Start Date End Date Racquel Simpson MD [address] [place] [address] PCP - General 04/22/16 Strip Stamp Straightener Relationship Specialty Start Date End Date Racquel Simpson MD [address] [place] [address] PCP - General 04/22/16 Strip Stamp Straightener Relationship Specialty Start Date End Date Racquel Simpson MD [address] [place] [address] PCP - General 04/22/16 Strip Stamp Straightener Relationship Specialty Start Date End Date Racquel Simpson MD [address] [place] [address] PCP - General 04/22/16 INFORMATION SOURCE (unrecogn ized section and content) DATE CREATED AUTHOR 06/02/2022 [facility] DATE CREATED AUTHOR AUTHOR'S ORGANIZ ATION 01/04/2023 [facility] DATE CREATED AUTHOR AUTHOR'S ORGANIZ ATION 05/04/2023 [facility] DATE CREATED AUTHOR AUTHOR'S ORGANIZ ATION 09/18/2023 [facility] DATE CREATED AUTHOR AUTHOR'S ORGANIZ ATION 02/23/2024 [facility] DATE CREATED AUTHOR AUTHOR'S ORGANIZ ATION 03/12/2024 [facility] DATE CREATED AUTHOR AUTHOR'S ORGANIZ ATION 06/04/2024 [facility] [employer]ton FOR RECORDS PERTAINING TO PATIENTS WHO ARE [...] BE BASED ON THE PRIMARY CLINICAL RECORDS. [employer] [facility]. provides no warranty or guarantee of the accuracy or completeness of information in this document.
--- NOTE | 2024-06-13 12:23 | US_ITS ---
The [address] [address] Patient Name: QIAN CLEMENTS MRN: [id number] date: 1990 Sex: F Assigned Patient Location: LAB Current Patient Location: LAB Accession/Order Number: [id number] Exam Date: 06/13/2024 12:30 Report Date: 06/13/2024 13:36 At the request of: BLAS FORDE Procedure: US OB transvaginal EXAMINATION: US OB transvaginal HISTORY: Missed Menses N92.6 COMPARISON: No relevant comparison available. FINDINGS: GESTATIONAL SAC: Present and normal appearing. YOLK SAC: Present and normal appearing. POLE: Present and normal appearing. CARDIAC: Present. UTERUS: Normal size and appearance. OVARIES: Right: Normal. Left: Corpus lutein cyst. CERVIX: 4.5 cm in length and closed. CUL-DE-SAC: Normal. OTHER: Adjacent to the gestational sac is a 2.6 x 1.6 x 1.4 cm hypoechoic avascular fluid collection; sequela of subchorionic hematoma versus possible second gestational sac (no contents within the fluid collection). AGE BY LMP: 9 weeks 2 days JULY BY LMP: 01/14/2025 AGE BY US CRL: 9 weeks 4 days JULY BY US CRL: 01/12/2025 US/US OB transvaginal IMPRESSION: 1. Single live intrauterine . Electronically authenticated by: PILAR DOBSON Date: 06/13/2024 13:36
[2024-06-13 13:37] LABS: HCG Quantitative 86131 mIU/mL
== END 2024-06-13 12:08 | disposition home or self-care (01) ==
LOC: LAB 12:08
PROVIDERS: PCP Family Medicine; Visit Provider Obstetrics & Gynecology
DX: Z34.01 Encounter for supervision of normal first pregnancy, first trimester (principal); Z3A.09 9 weeks gestation of pregnancy; N92.6 Irregular menstruation, unspecified
CPT/HCPCS: 36415; 76817; 84702

== ENCOUNTER 2024-07-27 11:31 | Outpatient (OUT) | payer OTHER, SELFPAY ==
[2024-07-27 12:05] LABS: Basophils Percent Auto 0.4 % (0.2-2.0); Eosinophils Absolute Auto 0.1 10^3/uL (0.0-0.7); Eosinophils Percent Auto 0.6 % (0.9-7.0); Hematocrit 34.1 % (36.0-48.0); Hemoglobin 10.9 g/dL (12.0-16.0); Immature Granulocytes Abs Auto 0.03 10^3/uL (0.00-0.03); Immature Granulocytes Pct Auto 0.3 % (0.0-0.5); Lymphocytes Absolute Auto 2.1 10^3/uL (1.2-3.8); Lymphocytes Percent Auto 21.6 % (20.5-60.0); Mean Corpuscular Hemoglobin 24.6 pg (26.7-34.0); Mean Platelet Volume 9.3 fL (9.5-13.5); Monocytes Absolute Auto 0.5 10^3/uL (0.3-0.8); Monocytes Percent Auto 5.6 % (1.7-12.0); Neutrophils Absolute Auto 6.9 10^3/uL (1.4-6.5); Neutrophils Percent Auto 71.5 % (43.0-75.0); Platelet Count 393 10^3/uL (150-450); Red Blood Count 4.43 10^6/uL (4.20-5.40); Red Cell Distribution Width 16.6 % (11.0-15.0); White Blood Count 9.6 10^3/uL (4.0-11.0)
[2024-07-27 12:23] LABS: BOX Test Date Sent UNITY; BOX Test Reference Lab UNITY
[2024-07-27 12:29] LABS: Cannabinoid Screen Urine POSITIVE (NEGATIVE)
[2024-07-27 12:30] LABS: Amphetamine Screen Urine NEGATIVE (NEGATIVE); Barbiturates Screen Urine NEGATIVE (NEGATIVE); Benzodiazepines Screen Urine NEGATIVE (NEGATIVE); Buprenorphine Screen Urine NEGATIVE (NEGATIVE); Cocaine Screen Urine NEGATIVE (NEGATIVE); Methadone Screen Urine NEGATIVE (NEGATIVE); Methamphetamines Screen Urine NEGATIVE (NEGATIVE); Opiate Screen Urine NEGATIVE (NEGATIVE); Oxycodone Screen Urine NEGATIVE (NEGATIVE); Phencyclidine Screen Urine NEGATIVE (NEGATIVE); Tricyclic Antidepressant Urine NEGATIVE (NEGATIVE)
[2024-07-27 12:48] LABS: Estimated Average Glucose 117 mg/dL; Glycohemoglobin A1C 5.7 % (4.5-6.2)
[2024-07-28 06:09] LABS: HBsAg Screen Negative (Negative); HCV Ab Non Reactive (Non Reactive); HIV Ab/p24 Ag Screen Non Reactive (Non Reactive)
[2024-07-28 08:12] LABS: Rubella Antibodies, IgG 3.59 index (Immune >0.99)
[2024-07-28 10:09] LABS: Rapid Plasma Reagin, Quant Non Reactive titer (NonRea<1:1)
[2024-07-30 13:11] LABS: Cannabinoid Positive (.); Carboxy THC Conf, MS, UR 19 ng/mL (Cutoff=10)
== END 2024-07-27 11:32 | disposition home or self-care (01) ==
LOC: LAB 11:32
PROVIDERS: PCP Family Medicine; Visit Provider Obstetrics & Gynecology
DX: Z34.01 Encounter for supervision of normal first pregnancy, first trimester (principal); Z36.0 Encounter for antenatal screening for chromosomal anomalies; N92.6 Irregular menstruation, unspecified
CPT/HCPCS: 36415; 80307; 80349; 83036; 85025; 86592; 86762; 86803; 86850; 86900; 86901; 87086; 87340; 87389

== ENCOUNTER 2024-09-27 08:43 | Observation (INO) | payer OTHER, SELFPAY ==
--- OUTSIDE RECORDS SUMMARY | 2024-09-27 09:06 | XMS_ITS | CCD ---
Author Organization [facility] Care Team Providers Care Asbestos Shingle Inspector Name Role Phone Racquel Simpson Primary Care Provider RACQUEL SIMPSON Primary Care Unavailable TAMMY CHERRY Admitting Unavailable TAMMY CHERRY Attending Unavailable Racquel Simpson MD Primary Care Provider [phone] RAMBO ., DR ODONNELL Primary Care Unavailable KARASIK ., DR KRAMER Consulting Unavailabl e RAMBO ., DR ODONNELL Attending Unavailable RAMBO ., DR ODONNELL Admitting Unavailable SCOTT DEPOT, DR AARON Owusu Consulting Unavailable RAMBO ., DR ODONNELL Consulting Unavailable MARGOT LAU Consulting Unavailable RAMBO ., DR ODONNELL Primary Care Unavailable RAMBO ., DR ODONNELL Attending Unavailable RAMBO ., DR ODONNELL Admitting Unavailable RAMBO ., DR ODONNELL Primary Care Unavailable RAMBO ., DR ODONNELL Consulting Unavailable RAMBO ., DR ODONNELL Attending Unavailable RAMBO ., DR ODONNELL Admitting Unavailable ZIEBER, DR PILAR Glass Consulting Unavailable RAMBO ., DR ODONNELL Consulting Unavailable RAMBO ., DR ODONNELL Attending Unavailable RAMBO ., DR ODONNELL Admitting Unavailable RAMBO ., DR ODONNELL Primary Care Unavailable ZIEBER, DR PILAR Glass Consulting Unavailable REQUEST, DR CINDY LISTED Consulting Unavaila Racquel Brito MD Primary Care Provider Unavailable Primary Care Provider UnavailESPERANZA Rodrigues Admitting Unavailable ESPERANZA MOLINA Attending Unavailable ALFRED RICKS Referring Unavailable MORE HAYDEN Consulting Unavailable ([facility] ONLY), NEURO-CONSULTING Consulting Dayanara vailable SAPNA INGRAM Consulting Unavailable EDWINA CROCKETT Attending Unavailable MIKALA MORTON MD Referring Unavailab le SAKIBUZZAMANMIKALA MD Referring Unavailab le SAKIBUZZMIKALA ESPINOZA MD Referring Unavailab le ALADAMAT, NAMEER Referring Unavailable NAMITA, MARU Referring Unavailable NAMITA, MARU Referring Unavailable DAMIAN HERNÁNDEZ Attending Unavailable SHERLY JAMA Referring Unavailable CARTAGENA, AARON Ferrari Admitting Unavailable CARTAGENA, AARON Ferrari Attending Unavailable BIPIN KELLOGG Referring Unavailable MORE HAYDEN Consulting Unavailable ([facility] ONLY), NEURO-CONSULTING Consulting Dayanara PILAR Arora Attending Unavailable RACQUEL SIMPSON Primary Care Unavailable MANOJ RAMOS Attending Unavailable MANOJ RAMOS Admitting Unavailable RACQUEL SIMPSON Referring Unavailable RACQUEL SIMPSON Primary Care Unavailable RACQUEL SIMPSON Primary Care Unavailable CHITRA BATISTA Attending Unavailable RACQUEL SIMPSON Primary Care Unavailable MANOJ FLORES Attending Unavailable Racquel Simpson MD Primary Care Provider JENNI SIMON Attending Unavailable ALFRED RICKS Attending Unavailable ALFRED RICKS Attending Unavailable Racquel Simpson Primary Care Physician Peace Colón Unavailable Unavailable Tarun Richards Attending Unavailable Tarun Richards Attending Unavailable RACQUEL SIMPSON Primary Care UnaBEATRIZ Garvey Attending Unavailable Allergies Allergy Classification Reported Allergen(s) Allergy Type Date of Onset Reaction(s) Facility (20 sources) Ciprofloxacin; Translations: [CIPROFLOXACIN] Drug Allergy 2 Nausea And Vomiting, Unknown, GI intolerance [place], [place] (20 sources) Codeine; Translations: [CODEINE] Drug Allergy 2 Seizure, Seizures, Unknown, GI intolerance [place], [place] (9 sources) Promethazine Drug Allergy 2 Nausea And Vomiting [place], [place] (2 sources) Ciprofloxacin; Translations: [Cipro] Drug Allergy 5 [facility] (1 source) Codeine Drug Allergy 5 [facility] (2 sources) Levamisole; Translations: [Phenergan] Drug Allergy 5 [facility] (13 sources) Promethazine; Translations: [PROMETHAZINE] Drug Allergy 2 Nausea And Vomiting, Unknown, GI intolerance [facility] (3 sources) Octacosanol Drug Allergy 4 [facility] Medications Current Medications Medication Drug Class(es) Dates Sig (Normalized) Sig (Original) [id number] 200 actuat albuterol 0.09 mg/actuat metered dose inhaler (4 sources) beta2-Adrenergic Agonist Start: 06-03-2021 End: 11-14-2022 take 2 puff(s) by mouth every six hours as needed albuterol sulfate HFA 108 (90 Base) MCG/ACT inhaler INHALE 2 PUFFS BY MOUTH EVERY 6 HOURS NEEDED 0 06/03/2021 11/14/2022 Discontinued (LIST CLEANUP) Start: 12-12-2014 albuterol Refi lls(s) 0 Start Date: 12/12/14 Status: Ordered Albuterol (Eqv-ProAir HFA) 90 mcg/inh inhalation aerosol (1 source) Start: 08-23-2024 take 2 puff(s) by inhalation every six hours Albuterol (Eqv-ProAir HFA) 90 mcg/inh inhalation aerosol 2 puff(s), Inhalation, q6hr, 6.7 gm, Refill(s) 0, [facility], 160.2, cm, 08/23/24 15:40:00 EST, Height/Length Dosing, 113, kg, 08/23/24 15:40:00 EST, Weight Dosing Start Date: 08/23/24 Status: Ordered amoxicillin 500 mg oral capsule (2 sources) [...] days 300 mL 0 11/14/2022 11/24/2022 Active amoxicillin 875 mg / clavulanate 125 mg oral tablet (1 source) Penicillin-class Antibacterial Start: 08-23-2024 End: 08-30-2024 take 1 tablet by mouth every twelve hours Augmentin 875 mg oral tablet = 1 tab(s), Oral, q12hr, X 7 day(s), # 14 tab(s), Refills(s) 0, Pharmacy: [facility], 160.2, cm, 08/23/24 15:40:00 EST, Height/Length Dosing, 113, kg, 08/23/24 15:40:00 EST, Weight Dosing Start Date: 08/23/24 Stop Date: 08/30/24 Status: Ordered amphetamine aspartate 7.5 mg / amphetamine sulfate [...] break. docusate sodium 50 mg / sennosides, long term 8.6 mg oral tablet (2 sources) Start: [...] Active labetalol hydrochloride 200 mg oral tablet (8 sources) beta-Adrenergic Tru Start: 09-07-2023 take 2 tablets by mouth every eight hours labetaloL (NORMODYNE) 200 mg tablet Take 2 tablets (400 mg total) by mouth every 8 (eight) hours. 180 tablet 1 09/07/2023 Active Start: 08-17-2023 take 1 tablet by ok th in the morning labetalol (Normodyne) 100 MG tablet Indications: History of pre-eclampsia , History of labor , Hypertension during , antepartum, unspecified hypertension in type Take 1 tablet (100 mg) by mouth in the morning and 1 tablet (100 mg) before bedtime. 60 tablet 2 08/17/2023 Active lanolin 0.5 mg/mg topical ointment (1 [...] 5 mg metoclopramide 10 mg oral tablet (11 sources) Dopamine-2 Receptor Antagonist Start: 08-17-2023 metoclopramide (Reglan) 10 MG tablet Indications: Nausea and vomiting during Take 1 tablet (10 mg) by mouth in the morning and 1 tablet (10 mg) at noon and 1 tablet (10 mg) in the evening. Take before meals. Take 1 tablet by mouth 30 minutes prior to meals 3 times daily as needed for nausea.. 90 tablet 2 08/17/2023 Active Start: 09-29-2019 End: 11-14-2022 take 1 tablet by mouth four times daily metoclopramide (REGLAN) 10 mg tablet Take 1 tablet (10 mg total) by mouth 4 (four) times a day. 30 tablet 0 09/29/2019 Active naproxen 500 mg oral tablet (1 source) Nonsteroidal Anti-inflammatory Drug Start: 09-27-2016 take 1 tablet by mouth twice daily as needed for pain Naprosyn 500 mg Tab 500 mg = 1 tab(s), Oral, BID, PRN for pain, # 20 tab(s), Refills(s) 0 Start Date: 09/27/16 Status: Ordered NIFEdipine 30 mg osmotic 24 hr extended release oral tablet (4 sources) Dihydropyridine Calcium Channel Tru Start: 05-28-2022 End: 03-07-2023 take 1 tablet by mouth once daily NIFEdipine (PROCARDIA XL) 30 MG extended release tablet Take 1 tablet by mouth daily 30 tablet 3 05/29/2022 03/07/2023 Discontinued (LIST CLEANUP) omeprazole 20 mg delayed release oral capsule (7 sources) Proton Pump Inhibitor Start: 08-17-2023 End: 08-16-2024 take 1 capsule by mouth before mealtime omeprazole (PriLOSEC) [address] capsule Indications: Heartburn Take 1 capsule (20 mg) by mouth in the morning. Take before meals. Do not crush or chew.. 30 capsule 11 08/17/2023 Active ondansetron 4 mg disintegrating oral tablet (17 sources) Serotonin-3 Receptor Antagonist Start: 07-05-2024 End: 08-04-2024 take 1 tablet by mouth every six hours as needed for nausea and vomiting and nausea and nausea ondansetron ODT (Zofran-ODT) 4 MG disintegrating tablet Indications: Nausea Take 1 tablet (4 mg) by mouth every 6 (six) hours if needed for nausea or vomiting 30 tablet 1 07/05/2024 08/04/2024 Active Start: 05-24-2024 End: 06-23-2024 take 1 tablet by mouth every six hours as needed for nausea and vomiting and nausea and nausea ondansetron ODT (Zofran-ODT) 4 MG disintegrating tablet Indications: Nausea Take 1 tablet (4 mg) by mouth every 6 (six) hours if needed for nausea or vomiting 30 tablet 2 05/24/2024 06/23/2024 Active Start: 05-25-2022 4 mg, IntraVEN ous, EVERY 6 HOURS PRN, Starting on Tue05/25/22 [...] on 4 mg take 1 tablet by ko th every eight hours as needed for [...] for 11 minutes (10 units in 167ml). predniSONE 20 mg oral tablet (1 source) Start: 08-23-2024 End: 08-29-2024 take 2 tablets by mouth once daily predniSONE 20 mg Tab 40 mg = 2 tab(s), Oral, Daily, X 6 day(s), # 12 tab(s), Refills(s) 0, Pharmacy: [facility], 160.2, cm, 08/23/24 15:40:00 EST, Height/Length Dosing, 113, kg, 08/23/24 15:40:00 EST, Weight Dosing Start Date: 08/23/24 Stop Date: 08/29/24 Status: Ordered 25/iron fum/folic/dha (-1 ORAL) (2 sources) 25/iron [...] (1 source) Anticholinergic Start: 05-25-2022 1 patch, TransDERmal, Administer over 72 Hours, EVERY 72 HOURS, First dose on Tue05/25/22 at 1700 delivers 1 mg over 3 days. Apply patch to hairless area behind the ear. Ventolin HFA 90 mcg/inh Aerosol (1 source) Start: 12-12-2014 take 2 puff(s) by inhalation three times daily for wheezing Ventolin HFA 90 mcg/inh Aerosol 2 puff(s), Inhalation, TID for wheezing, 8 gram, Refill(s) 0 Start Date: 12/12/14 Status: Ordered Zofran ODT 4 mg Tab-Dis (1 source) Start: 09-27-2016 take 1 tablet by mouth three times daily Zofran ODT 4 mg Tab-Dis 4 mg = 1 tab(s), Oral, TID, # 15 tab(s), Refills(s) 0 Start Date: 09/27/16 Status: Ordered Completed/Discontinued Medications Medication Drug Class(es) Dates Sig (Normalized) Sig (Original) acetaminophen 500 mg oral tablet (4 sources) Start: 05-25-2022 1,000 mg, Oral, EVERY 6 HOURS, First dose on Tue05/25/22 at 1630, Until Discontinued Maximum dose of acetaminophen is 4000mg from all sources in 24 hours. Alternate ibuprofen and acetaminophen every 4 hours. Start: 09-30-2019 take 2 tablets by mo uth every six hours as needed for headache acetaminophen (TYLENOL) 325 mg tablet Take 2 tablets (650 mg total) by mouth every 6 (six) hours as needed for headaches. 30 tablet 0 09/30/2019 Active take 1 tablet by ok th every six hours as needed for pain [...] M G/ML injection HYDROmorphone (DILAUDID) 1 mg/mL FOOD PRODUCTION MACHINE OPERATOR (1 source) Start: 05-25-2022 End: 05-26-2022 HYDROmorphone (DILAUDID) 1 mg/mL FOOD PRODUCTION MACHINE OPERATOR 1 ml ketorolac tromethamine 30 mg/ml cartridge [...] premix Start: 05-25-2022 End: 05-26-2022 magnesium sulfate (08963 mg/ 500mL infusion) Start: 05-25-2022 End: 05-25-2022 [...] Until Discontinued, Opioid Reversal polyethylene glycol 3350 98905 mg powder for oral solution (1 source) [...] Problem Classification Problem Date Documented Date Episodic/Chronic Asthma (1 source) Exacerbation of asthma; Translations: [Unspecified asthma with (acute) exacerbation] Onset: 08-23-2024 Chronic Attention-deficit conduct and disruptive behavior disorders (9 sources) Attention deficit hyperactivity disorder, predominantly inattentive type; Translations: [Attention-deficit hyperactivity disorder, predominantly inattentive type] Onset: 04-01-2015 04-01-2015 Chronic Essential hypertension (2 sources) Hypertensive disorder; Translations: [Essential (primary) hypertension] Onset: 08-31-2023 Chronic Fever of unknown origin (3 sources) Fever; Translations: [Fever, unspecified] Onset: 03-17-2023 Episodic Headache; including migraine (1 source) Migraine, unspecified, not intractable, without status migrainosus; Translations: [MIGRAINE UNS NOT INTRACT W/O SM] Onset: 05-28-2022 Chronic Menstrual disorders (3 sources) Missed period; Translations: [Irregular menstruation, unspecified] 06-13-2024 Chronic Other circulatory disease (1 source) Elevated [...] indication] Onset: 05-25-2022 Episodic Other complications of (1 source) High risk 11-04-2014 Episodic Other liver diseases (1 source) Liver cyst 09-14-2015 Chronic Other lower respiratory disease (2 sources) Cough; Translations: [Cough] Onset: 08-23-2024 Episodic Other nervous system disorders (1 source) Other acute postprocedural pain; Translations: [Other acute postprocedural pain] Onset: 08-31-2023 Episodic Other nutritional; endocrine; and metabolic disorders (1 source) Obesity 11-04-2014 Chronic Other and delivery including normal (10 sources) state; Translations: [Encounter for routine follow-up] Onset: 05-28-2022 Episodic Other upper respiratory disease (1 source) Congestion of nasal sinus; Translations: [Nasal congestion] Episodic Other upper respiratory infections (4 sources) Acute pharyngitis; Translations: [Acute pharyngitis, unspecified] Onset: 06-02-2024 Episodic Pneumonia (except that caused by tuberculosis or sexually transmitted disease) (3 sources) Pneumonia; Translations: [Pneumonia, unspecified organism] Onset: 08-23-2024 Episodic Residual codes; unclassified (3 sources) Taking high risk medication; Translations: [High risk medication use] Onset: 04-01-2015 04-01-2015 Rheumatoid arthritis and related disease (18 sources) 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 Unclassified (1 source) severe preeclampsia, eclamptic seizure Onset: 08-31-2023 Unclassified (7 sources) OB Reminders Onset: 04-22-2023 04-22-2023 Past or Other Problems Problem Classification Problem Date Documented Date Episodic/Chronic Abdominal pain (20 sources) Right upper quadrant pain; Translations: [Epigastric pain] Onset: 06-23-2015 06-23-2015 Episodic Appendicitis and other appendiceal conditions (9 sources) Acute appendicitis; Translations: [Unspecified acute appendicitis] Onset: 08-15-2017 08-15-2017 Episodic Genitourinary symptoms and ill-defined conditions (1 [...] of autoimmune disease] Onset: 03-13-2023 Episodic Other screening for suspected conditions (not [...] sources) Taking high risk medication; Translations: [Other nursing home (current) drug therapy] Onset: 04-01-2015 04-01-2015 Episodic [...] [Strain of lumbar region, initial encounter] Episodic Unclassified (1 source) Hypertension, gestational 11-04-2014 Unclassified (1 source) miscarriage x2 12-14-2012 Unclassified (4 sources) Onset: 06-27-2010 Resolved: 03-06-2015 02-27-2015 Urinary tract infections (1 source) Urinary tract infection, site not specified; Translations: [Urinary tract infection with hematuria, site unspecified] Onset: 03-13-2023 Episodic Results Test Name Value Interpretation Reference Range Facility ED Prov Noteon 09-24-2024 ED Prov Note [facility] ATTENDING NOTE: NAME: Qian Clements CSN: [id number] 34 y.o. PCP: Racquel Simpson MD History: Chief Complaint: Cough (Cough x 1 month and 24 weeks ) HPI: The history was obtained from the patient. Qian is a 34 y.o. female who presents with a chief complaint of cough. The patient is G6, who is 24 weeks who states that for the past month she has had cough and shortness of breath. She went to [place] emergency department and was given a dose of steroid and amoxicillin. She continues to have a cough with intermittently productive yellow sputum. She continues to have pain with deep breathing in her back and right upper chest worse with cough nonradiating. She denies fever nausea vomiting diarrhea recent travel immobilization leg swelling/pain nor any other complaints Family history negative for DVT/PE ED Course / Medical Decision Making: ED COURSE: 34-year-old female presents with shortness of breath, cough, and pleuritic chest pain. Differentials include pneumonia, pleural effusion, pleurisy, PE. Given her history and examination PE is considered unlikely. Given cough and shortness of breath, she meets criteria for pneumonia. I have ordered twelve-lead EKG chest x-ray DuoNeb prednisone Augmentin and azithromycin. Twelve-lead EKG per my interpretation demonstrates ventricular at 104 MT 140 QRS 76 QT 322 QTc 423, interpretation: Sinus tachycardia, otherwise normal EKG, no evidence of right heart strain. Chest x-ray demonstrates no acute findings per my interpretation still pending radiology report. Upon reexamination decreased breath sounds/air movement has resolved. I believe she is amenable for discharge with close outpatient follow-up. I will provide prescriptions for Augmentin and azithromycin and 1 day prednisone. In the unlikely case she has a PE, I have ordered outpatient duplex ultrasound of the bilateral lower extremities. She is advised to follow-up with her PMD/CONSTRUCTION PROJECT ASSISTANT. She is given strict return instructions, especially worsening shortness of breath. If she has ongoing pain and shortness of breath, V/Q scan would be a consideration. After reviewing the items above, I did look at previous medical documentation, such as recent hospitalizations, office visits, and/or recent consultations with PCP/specialist. SDOH: Another factor that I considered in Qian's care was her Social Determinants of Health (SDOH). During this ED encounter, she did NOT appear to have any significant issues identified. Laboratory & Radiological Imaging (if done): Labs Reviewed - No data to display XR Chest 1 View (Results Pending) Clinical Impression: 1. Pneumonia due to infectious organism, unspecified laterality, unspecified part of lung ROS: Review of Systems Constitutional: Negative for fever. Respiratory: Positive for cough and shortness of breath. Cardiovascular: Positive for chest pain. Negative for leg swelling. Gastrointestinal: Negative for abdominal pain, diarrhea and vomiting. Positives and pertinent negatives as per HPI. All other systems were reviewed and are negative. Physical Exam: Patient Vitals for the past 24 hrs: BP Temp Temp src Pulse Resp SpO2 Height Weight 09/24/241918 -- -- -- -- -- 97 % -- -- 09/24/241915 (!) 137/91 97.8 degrees F (36.6 degrees C) Oral (!) 116 (!) 20 97 % 5' 4 113.4 kg (250 lb) Physical Exam Vitals and nursing note reviewed. Constitutional: Appearance: Normal appearance. HENT: Head: Normocephalic and atraumatic. Nose: Nose normal. Mouth/Throat: Mouth: Mucous membranes are moist. Pharynx: Oropharynx is clear. Eyes: Conjunctiva/sclera: Conjunctivae normal. Pupils: Pupils are equal, round, and reactive to light. Cardiovascular: Rate and Rhythm: Regular rhythm. Tachycardia present. Heart sounds: Normal heart sounds. Pulmonary: Effort: Pulmonary effort is normal. No respiratory distress. Breath sounds: Decreased air movement present. Examination of the right-upper field reveals decreased breath sounds. Examination of the left-upper field reveals decreased breath sounds. Examination of the right-middle field reveals decreased breath sounds. Examination of the left-middle field reveals decreased breath sounds. Examination of the right-lower field reveals decreased breath sounds. Examination of the left-lower field reveals decreased breath sounds. Decreased breath sounds present. Abdominal: General: Abdomen is flat. Palpations: Abdomen is soft. Skin: General: Skin is warm and dry. Neurological: General: No focal deficit present. Mental Status: She is alert and oriented to person, place, and time. Psychiatric: Mood and Affect: Mood normal. Behavior: Behavior normal. Procedures I did personally review Qian's past medical history, surgical history, social history, as well as family history (when relevant). In this (more content not included)... Normal [facility] XR CHEST PA/APon 09-24-2024 XR CHEST PA/AP EXAMINATION: XR CHEST PA/AP 09/24/2024 7:57 pm HISTORY: ORDERING SYSTEM PROVIDED HISTORY: cough, TECHNOLOGIST PROVIDED HISTORY: Illness/Other Reason for exam: cough x 1 month Cancer History: n Surgery, RadiationHistory: n Encounter Type: Initial Additional signs and symptoms: pt states she as on an antibiotic but it didnt help ORDERING SYSTEM PROVIDED DIAGNOSIS CODES: COMPARISON: CT from 05/24/2022 FINDINGS: Minimal discoid atelectasis in the right lower lobe. No focal consolidations or pleural effusions. Cardiomediastinal silhouette is unremarkable. No acute osseous abnormality. IMPRESSION: Minimal discoid atelectasis in the right lower lobe. Workstation ID: [id number] Dictated by: ABBEY CHRISTOPHER on TueSep 24, 2024 9:18:15 PM EST Transcribed by: ABBEY CHRISTOPHER on TueSep 24, 2024 9:18:15 PM EST Finalized by: ABBEY CHRISTOPHER on TueSep 24, 2024 9:18:15 PM EST Normal [facility] Comment on above: Order Comment: Shiel d abdomen Injury/Trauma or Illness?:Illness/Other How long have you had these symptoms (acute/chronic)?:Acute Reason for exam?:cough x 1 month History of cancer?:n Surgeries, chemotherapy, or radiation?:n Type of Exam?:Initial Additional signs and symptoms?:pt states she as on an antibiotic but it didnt help ED Note-Physicianon 08-28-19 25 ED Note-Physician ED Note-Physician Basic Information Time Seen: Marcio PRICE, Zaheer Martini 08/23/2024 17:03 Chief Complaint pt presents with SOB and cough for couple of days. pt 20 weeks . denies sick contacts. pt hx asthma. states unable to catch breath. History of Present Illness Patient is a 34-year-old female that presents today for evaluation of her cough, fevers, shortness of breath that have been going on for the last couple of days. Patient states that she has a history of asthma and feels like that she has been short of breath ever since developing a productive cough with intermittent fevers. She states that she has been really rundown and has been feeling unwell. She denies any nausea, vomiting, abdominal pain. Denies any chest pain or dyspnea. She is out of her inhalers at home. She states that she occasionally feels like she is unable to catch her breath especially when she coughs. No known sick contacts at home. Review of Systems No other aggravating or relieving factors no other associated symptoms no other prior treatments or complaints. Family: Reviewed and noncontributory Social: lives at home Review of systems negative unless otherwise specified in the HPI. Physical Exam Vitals & Measurements T: 36.8 ???C(Oral) HR: 100(Monitored) RR: 20 BP: 139/84 SpO2: 97% HT: 160.2 cm WT: 113 kg BMI: 44.03 General: The patient appears well and in no apparent distress. Patient is resting comfortably on cart. Skin: Warm, dry, no pallor noted. Head: Normocephalic, atraumatic Neck: No JVD Eye: PERRLA, EOMI ENT: Moist mucus membranes Cardiovascular: Regular rate and rhythm. Normal peripheral perfusion Respiratory: Diffuse expiratory wheezes noted to the bilateral upper lung horan with mild crackles noted to the right lung base. No respiratory distress no accessory muscle use no obvious audible wheezing Chest Wall: no deformity Musculoskeletal: normal ROM, no deformity, no swelling GI: Soft no obvious distention. No rebound or rigidity. No guarding. No tenderness. Neurological: A&O moves all extremities equal strength and symmetry Psychiatric: Cooperative and appropriate Medical Decision Making Patient is a 34-year-old female presents today for evaluation of her cough, fevers, shortness of breath it has been going on for the last couple of days. States that she is having difficulty catching her breath especially when she coughs. Denies any other systemic signs or symptoms. Has been out of her inhalers and has a history of asthma. On exam the patient is afebrile nontoxic-appearing. SpO2 97% on room air. Heart rate 100 bpm. She does have diffuse expiratory wheezes noted to the bilateral upper lung horan with mild crackles noted to the right lung base. No respiratory distress or audible wheezing. Abdomen is soft and nontender. RRR. Patient was negative for influenza and COVID here in the ED. EKG demonstrates sinus tachycardia but no other acute findings. Discussed with the patient that given the fevers with associated cough and congestion that she likely has pneumonia. She had only mild improvement with a DuoNeb breathing treatment here in the ED. For this reason we will go ahead and start her on prednisone which we discussed the risk and benefits of for and she is willing to move forward with especially given the importance of prioritizing the respiratory status of the patient to ensure baby does well. Will go ahead and start her on Augmentin as well for pneumonia and I sent her an albuterol inhaler given she is out of hers. We discussed that if she is not getting any better specifically in the next couple of days and that if she is worsening despite above management she should promptly return to the ED for reevaluation. She will be discharged home with close follow-up with her PCP and CONSTRUCTION PROJECT ASSISTANT to ensure she is getting better. Return to ED precautions were reviewed with the patient at length. Assessment/Plan Asthma exacerbation (J45.901: Unspecified asthma with (acute) exacerbation) Cough (R05.9: Cough, unspecified) Fever (R50.9: Fever, unspecified) Pneumonia (J18.9: Pneumonia, unspecified organism) (Z34.90: Encounter for supervision of normal , unspecified, unspecified trimester) Orders: albuterol, 2 puff(s), Inhalation, q6hr, 6.7 gm, Refill(s) 0, [facility], 160.2, cm, 08/23/24 15:40:00 EST, Height/Length Dosing, 113, kg, 08/23/24 15:40:00 EST, Weight Dosing albuterol-ipratropium, 3 mL, Soln-Inh, Inhalation, Once, Stop date 08/23/24 17:23:00 EST, STAT, Start date 08/23/24 17:23:00 EST amoxicillin-clavulanat e, = 1 tab(s), Oral, q12hr, X 7 day(s), # 14 tab(s), Refills(s) 0, Pharmacy: [facility], 160.2, cm, 08/23/24 15:40:00 EST, Height/Length Dosing, 113, kg, 08/23/24 15:40:00 EST, Weight Dosing amoxicillin-clavulanat e, 1 tab(s), Tab, Oral, Once, Stop date 08/23/24 18:00:00 EST, STAT, Start date 08/23/24 18:00:00 EST predniSONE, 40 mg = 2 tab(s), Tab, Oral, Once, (more content not included)... Normal [facility] Comment on above: Result Comment: Elec tronically Signed By: Zaheer Buckley PA-C\.br\Date and Time Signed: 08/23/24 20:32 EST\.br\Electronically Co-Signed By: Tarun Richards MD\.br\Date and Time Co-Signed: 08/28/24 23:11 EST ED Clinical Summaryon 2024 ED Clinical Summary ED Clinical Summary [place] [address] ED Clinical Summary Person Information Name: QIAN CLEMENTS [place] Age: 34 Years : 1990 Sex: Female Language: [place] PCP: Racquel Simpson MD Marital Status: Single Visit Id: Visit Reason: Sinus Pain/Congestion; Cough; Shortness of breath; SOB, COUGH, VOMITING- PT IS 20 WEEKS . Speciality: Acuity: 3 Enc Type: Emergency Med Service: Emergency Arrival: 08/23/2024 15:28:47 Discharge: 08/23/2024 18:11:45 LOS: 000 02:43 Checkin: 08/23/2024 15:28:47 Checkout: 08/23/2024 18:11:45 Dispo Type: Home (Routine DC) EVENTS: Event Name Event Status Request Date/Time Start Date/Time Complete Date/Time Arrive Complete 08/23/2024 15:28:47 08/23/2024 15:28:47 08/23/2024 15:28:47 Document Home Meds Request 08/23/2024 15:28:47 Triage Complete 08/23/2024 15:28:47 08/23/2024 15:40:13 08/23/2024 15:40:13 EKG Complete 08/23/2024 15:34:24 08/23/2024 15:39:54 Bed Assign Complete 08/23/2024 15:34:41 08/23/2024 15:34:41 08/23/2024 15:34:41 Dr Exam Complete 08/23/2024 15:34:41 08/23/2024 17:03:34 08/23/2024 17:03:34 RN Exam Complete 08/23/2024 15:34:41 08/23/2024 17:59:18 08/23/2024 17:59:18 Registration Complete 08/23/2024 15:38:08 08/23/2024 15:38:08 08/23/2024 15:38:08 Reg Complete Request 08/23/2024 15:38:08 Reg Bed Request Complete 08/23/2024 15:38:08 08/23/2024 15:38:08 08/23/2024 15:38:08 Pending Labs Complete 08/23/2024 15:43:24 08/23/2024 16:38:55 Swab Complete 08/23/2024 15:43:24 08/23/2024 16:38:45 Lab Complete 08/23/2024 15:43:24 08/23/2024 16:38:55 Registration Request 08/23/2024 17:03:34 Meds Admin Complete 08/23/2024 17:24:03 08/23/2024 17:31:30 RT Tx/ABG Complete 08/23/2024 17:24:03 08/23/2024 18:07:46 08/23/2024 18:07:46 RT Tx/ABG Complete 08/23/2024 17:24:04 08/23/2024 18:07:50 08/23/2024 18:07:50 Meds Admin Complete 08/23/2024 18:01:08 08/23/2024 18:09:01 Discharge Complete 08/23/2024 18:02:56 08/23/2024 18:11:50 08/23/2024 18:11:50 Transfer Complete 08/23/2024 18:11:50 08/23/2024 18:11:50 08/23/2024 18:11:50 ADDRESS: [facility] [id number] PHYS DOC NOTES: MEDICAL INFORMATION: Prescriptions Given: New Medications [facility], [address], [place] [id number], [phone] amoxicillin-clavulanat e (Augmentin 875 mg oral tablet) 1 Tablets By Mouth every 12 hours for 7 Days. Refills: 0. predniSONE (predniSONE 20 mg Tab) 2 Tablets By Mouth every day for 6 Days. Refills: 0. Medications to Continue Taking That Have Changed [facility], [address], [place] [id number], [phone] START: albuterol (Albuterol (Eqv-ProAir HFA) 90 mcg/inh inhalation aerosol) 2 Puffs Inhalation every 6 hours. Refills: 0. Other Medications START: albuterol START: albuterol (Ventolin HFA 90 mcg/inh Aerosol) 2 Puffs Inhalation 3 times a day as needed for wheezing. Medications to Continue with No Changes Other Medications naproxen (Naprosyn 500 mg Tab) 1 Tablets By Mouth 2 times a day as needed for pain. Refills: 0. ondansetron (Zofran ODT 4 mg Tab-Dis) 1 Tablets By Mouth 3 times a day. Refills: 0. PATIENT EDUCATION INFORMATION: Instructions: Community-Acquired Pneumonia, Adult; Asthma, Adult Follow up: With: Address: When: Racquel Simpson [address] [place], [place] [id number] Business (1) In 3 days 08/26/2024 DIAGNOSIS: Asthma exacerbation; Cough; Fever; Pneumonia; Normal [facility] ED Patient Summaryon 025 ED Patient Summary ED Patient Summary [address] [address] Patient Discharge Instructions Person Information Name: QIAN CLEMENTS Age: 34 Years Arrival Date: 08/23/2024 15:28:47 Discharge Diagnosis: Asthma exacerbation; Cough; Fever; Pneumonia; Primary Care Physician: Racquel Simpson MD Provider Information Primary Provider: [facility] Tester:Zaheer Buckley PA-C The exam and treatment you received in the Emergency Department were for an urgent problem and are not intended as complete care. It is important that you follow up with a doctor, nurse practitioner, or physician???s botany laboratory assistant for ongoing care. If your symptoms become worse or you do not improve as expected and you are unable to reach your usual health care provider, you should return to the Emergency Department. We are available 24 hours a day. QIAN CLEMENTS has been given the following list of patient education materials, prescriptions and follow-up instructions: Follow-up Instructions: With: Address: When: Racquel Simpson [address] [place], [place] [id number] [facility] (1) In 3 days 08/26/2024 In the event that this physician does not participate in your insurance network, please consult with your insurance company to find a nearby participating provider. Patient Education Materials: Community-Acquired Pneumonia, Adult; Asthma, Adult A MESSAGE TO ALL PATIENTS REGARDING OPIOIDS PRESCRIPTION OPIOIDS: WHAT YOU NEED TO KNOW Prescription opioids can be used to help relieve lawltjpc-ln-mxnteo pain and are often prescribed following a surgery or injury, or for certain health conditions. These medications can be an important part of the treatment but also come with serious risks. It is important to work with your healthcare provider to make sure you are getting the safest, most effective care. WHAT ARE THE RISKS AND SIDE EFFECTS OF OPIOID USE? Prescription opioids carry serious risks of addiction and overdose, especially with prolonged use. An opioid overdose, often marked by slowed breathing, can cause sudden . The use of prescription opioids can have a number of side effects as well, even when taken as directed: ??? Tolerance???meaning you might need to take more of the medication for the same pain relief ??? Physical dependence???meaning you have symptoms of withdrawal when a medication is stopped ??? Increased sensitivity to pain ??? Constipation ??? Nausea, vomiting, and dry mouth ??? Sleepiness and dizziness ??? Confusion ??? Depression ??? Low levels of testosterone that can result in lower sex drive, energy, and strength ??? Itching and sweating RISKS ARE GREATER WITH: ??? History of drug misuse, substance use disorder, or overdose ??? Mental health conditions (such as depression or anxiety) ??? Sleep apnea ??? Older age (65 years and older) ??? Avoid alcohol while taking prescription opioids. Also, unless specifically advised by your health care provider, medications to avoid include: ??? Benzodiazepines (such as Xanax or Valium) ??? Muscle relaxants (such as Soma or Flexeril) ??? Hypnotics (such as Ambien or Lunesta) ??? Other prescription opioids KNOW YOUR OPTIONS Talk to your health care provider about ways to manage your pain that don???t involve prescription opioids. Some of these options may actually work better and have fewer risks and side effects. Options may include: ??? Pain relievers such as acetaminophen, ibuprofen, and naproxen ??? Some medication that are also used for depression or seizures ??? Physical therapy and exercise ??? Cognitive behavioral therapy, a psychological, goal-directed approach, in which patients learn how to modify physical, behavioral, and emotional triggers of pain and stress. IF YOU ARE PRESCRIBED OPIOIDS FOR PAIN: ??? Never take opioids in greater amounts or more often than prescribed. ??? Follow up with your primary health care provider. o Work together to create a plan on how to manage your pain. o Talk about ways to help manage your pain that don???t involve prescription opioids. o Talk about any and all concerns and side effects. ??? Help prevent misuse and abuse o Never sell or share prescription opioids. o Never use another person???s prescription opioids. ??? Store prescription opioids in a secure place and out of reach of others (this may include visitors, children, friends, and family). ??? Safely dispose of unused prescription opioids: Find your community drug take-back program or your pharmacy mail-back program, or flush them down the toilet, following guidance from the Food and Drug Administration (www.fda.gov/Drugs/Res ourcesForYou). ??? Visit www.cdc.gov/drugoverdo se to learn about the risks of opioids abuse and overdose. ??? If you believe you may be struggling w (more content not included)... Normal [facility] Influenza A&B Agon Influenzae A Ag Negative Normal Negative [facility] Comment on above: Performed By: #### 1 [id number] #### [facility] [address] [place] [address] Influenzae B Ag Negative Normal Negative [facility] Comment on above: Result Comment: Test sensitivity and specificity vary for age group, specimen type, antigen types, and prevalence of disease. Test results must be evaluated in conjunction with other clinical data available to the physician. Individuals who received nasally administered Influenza A vaccine may have positive test results up to 3 days after vaccination. Performed By: #### 1 [id number] #### [facility] [address] [place] [address] MICRO OTHER TESTSOrdered By: Amber Shaver on 08-23-2024 Influenzae A Ag Negative (08/23/24 4:03 PM) Normal Negative [facility] Influenzae B Ag Negative 1 (08/23/24 4:03 PM) Normal Negative [facility] Comment on above: Interpretive Data: T est sensitivity and specificity vary for age group, specimen type, antigen types, and prevalence of disease. Test results must be evaluated in conjunction with other clinical data available to the physician. Individuals who received nasally administered Influenza A vaccine may have positive test results up to 3 days after vaccination. Rapid COV Int NEG Ctl Pass (08/23/24 4:03 PM) Normal [facility] Rapid COV Int POS Ctl Pass (08/23/24 4:03 PM) Normal [facility] SARS-CoV+SARS-CoV-2 (COVID-19) Ag IA.rapid Ql (Resp) Not Detected 2 (08/23/24 4:03 PM) Normal Not Detected [facility] Comment on above: Interpretive Data: T bharat dotCloud Veritor System for Rapid Detection of SARS-CoV-2 is a chromatographic digital immunoassay intended for the direct and qualitative detection of SARS-CoV-2 nucleocapsid antigens in nasal swabs from individuals who are suspected of COVID-19 by their healthcare provider within the first five days of the onset of symptoms. Negative results should be treated as presumptive, do not rule out SARS-CoV-2 infection and should not be used as the sole basis for treatment or patient management decisions, including infection control decisions. Negative results should be considered in the context of a patient s recent exposures, history and the presence of clinical signs and symptoms consistent with COVID-19, and confirmed with a molecular assay, if necessary, for patient management. For in vitro diagnostic use. In the [place], only for use under an Emergency Use Authorization. In the [place], this test has not been FDA cleared or approved; this test has been authorized by FDA under an EUA for use by authorized laboratories; use by laboratories certified under the CLIA, 42 U.S.C. 263a, that meet requirements to perform moderate, high, or waived complexity tests and at the Point of Care (POC), i.e., in patient care settings operating under a CLIA Certificate of Waiver, Certificate of Compliance, or Certificate of Accreditation. This test has been authorized only for the detection of proteins from SARS-CoV-2, not for any other viruses or pathogens; and, in the [place], this test is only authorized for the duration of the declaration that circumstances exist justifying the authorization of emergency use of in vitro diagnostics for detection and/or diagnosis of the virus that causes COVID-19 under Section 564(b)(1) of the Act, 21 U.S.C. 360bbb-3(b)(1), unless the authorization is terminated or revoked sooner. Rapid COVID Antigen ([facility])on 08-23-2024 Rapid COV Int NEG Ctl Pass Normal [facility] Comment on above: Performed By: #### 2 [id number] #### [facility] [address] [place] [address] Rapid COV Int POS Ctl Pass Normal [facility] Comment on above: Performed By: #### 2 [id number] #### [facility] [address] [place] [address] SARS-CoV+SARS-CoV-2 (COVID-19) Ag IA.rapid Ql (Resp) Not detected Normal Not Detected [facility] Comment on above: Result Comment: The dotCloud Veritor??? System for Rapid Detection of SARS-CoV-2 is a chromatographic digital immunoassay intended for the direct and qualitative detection of SARS-CoV-2 nucleocapsid antigens in nasal swabs from individuals who are suspected of COVID-19 by their healthcare provider within the first five days of the onset of symptoms. Negative results should be treated as presumptive, do not rule out SARS-CoV-2 infection and should not be used as the sole basis for treatment or patient management decisions, including infection control decisions. Negative results should be considered in the context of a patient???s recent exposures, history and the presence of clinical signs and symptoms consistent with COVID-19, and confirmed with a molecular assay, if necessary, for patient management. For in vitro diagnostic use. In the [place], only for use under an Emergency Use Authorization. In the [place], this test has not been FDA cleared or approved; this test has been authorized by FDA under an EUA for use by authorized laboratories; use by laboratories certified under the CLIA, 42 U.S.C. ???263a, that meet requirements to perform moderate, high, or waived complexity tests and at the Point of Care (POC), i.e., in patient care settings operating under a CLIA Certificate of Waiver, Certificate of Compliance, or Certificate of Accreditation. This test has been authorized only for the detection of proteins from SARS-CoV-2, not for any other viruses or pathogens; and, in the [place], this test is only authorized for the duration of the declaration that circumstances exist justifying the authorization of emergency use of in vitro diagnostics for detection and/or diagnosis of the virus that causes COVID-19 under Section 564(b)(1) of the Act, 21 U.S.C. ??? 360bbb-3(b)(1), unless the authorization is terminated or revoked sooner. Performed By: #### 2 [id number] #### [facility] [address] [place] [address] ALL CBC WITH AUTO DIFFon BASOPHILS ABSOLUTE AUTO 0 [facility] Basophils/100 WBC (Bld) 0.4 % 0.2 - 2.0 % [facility] Eosinophils/100 WBC (Bld) 0.6 % Low 0.9 - 7.0 % [facility] Erythrocyte distribution width (RBC) [Ratio] 16.6 % High 11.0 - 15.0 % [facility] Hematocrit (Bld) [Volume fraction] 34.1 % Low 36.0 - 48.0 % [facility] Hemoglobin (Bld) [Mass/Vol] 10.9 g/dL Low 12.0 - 16.0 g/dL [facility] IMMATURE GRANULOCYTES ABS AUTO 0.03 [facility] Immature granulocytes/100 WBC (Bld) 0.3 % 0.0 - 0.5 % [facility] Interpretation and review of laboratory results Abnormal [facility] LYMPHOCYTES ABSOLUTE AUTO 2.1 [facility] Lymphocytes/100 WBC (Bld) 21.6 % 20.5 - 60.0 % [facility] MCH (RBC) [Entitic mass] 24.6 pg Low 26.7 - 34.0 pg [facility] MCHC (RBC) [Mass/Vol] 32 g/dL 29.9 - 35.2 g/dL [facility] MCV (RBC) [Entitic vol] 77 fL Low 81.0 - 99.0 fL [facility] MONOCYTES ABSOLUTE AUTO 0.5 [facility] Monocytes/100 WBC (Bld) 5.6 % 1.7 - 12.0 % [facility] NEUTROPHILS ABSOLUTE AUTO 6.9 High [facility] Neutrophils/100 WBC (Bld) 71.5 % 43.0 - 75.0 % [facility] Platelet mean volume (Bld) [Entitic vol] 9.3 fL Low 9.5 - 13.5 fL [facility] TBH EO # 0.1 [facility] TB PLT 393 [facility] TB RBC 4.43 [facility] TBH WBC 9.6 [facility] HCG ( test) Ql (U)o n 07-27-2024 Interpretation and review of laboratory results Abnormal [facility] Preg Test, Ur Positive Negative [facility] Urinalysis macro (dipstick) panel (U)on 07-27-2024 Bilirubin, UA Negative Negative - 4(70) +++ mg/dL [facility] Blood, UA Negative Negative - 50 Gigi/mcL [facility] Clarity, UA Clear [facility] Color, UA Yellow [facility] Glucose, UA Negative Negative - 2000(110) ++++ mg/dL [facility] Interpretation and review of laboratory results Normal [facility] Ketones, UA Negative Negative - 160(16) ++++ mg/dL [facility] Leukocytes, UA Negative Negative - 500+++ Gely/mcL [facility] Nitrite, UA Negative Negative - Positive [facility] pH, UA 5 5 - 9 [facility] Protein, UA Negative Negative - 2000(20) ++++ mg/dL [facility] Spec Grav, UA 1.03 1 - 1.03 [facility] Urobilinogen, UA 1.0 0.2 - 12 mg/dL [facility] TBH PREG QUANT HCGon 10-23-2 024 HCG QUANTITATIVE 25388 mIU/mL [facility] Comment on above: 5-50 0.2-1 WEEK 50-500 1-2 WEEKS 100-5,000 2-3 WEEKS 500-10,000 3-4 WEEKS 1,000-50,000 4-5 WEEKS 10,000-100,000 5-6 WEEKS 15,000-200,000 6-8 WEEKS 10,000-100,000 2-3 MONTHS [facility] CBC W Auto Differential pane l (Bld)on 03-08-2024 Basophils (Bld) [#/Vol] 0.04 10*3/uL Normal <0.11 [facility] Comment on above: Order Comment: Speci men Type: BLOOD SPECIMEN Ordering Facility: [facility] Address: [address] [place] [id number] Performed By: #### 1 9123-9, 81586-3 #### [facility] CLIA [id number] [address] [facility] [place] [address] [place] Basophils/100 WBC (Bld) 0.4 % Normal [facility] Comment on above: Order Comment: Speci men Type: BLOOD SPECIMEN Ordering Facility: [facility] Address: [address] [place] [place] [address] Performed By: #### 1 9123-9, 08501-2 #### [facility] CLIA [id number] [address] [place] [address] [place] Differential cell count method Nom (Bld) Auto Normal [facility] Comment on above: Order Comment: Speci men Type: BLOOD SPECIMEN Ordering Facility: [facility] Address: [address] [place] [place] [address] Performed By: #### 1 9123-9, 15045-0 #### [facility] CLIA [id number] [address] [place] [address] [place] Eosinophils (Bld) [#/Vol] 0.32 10*3/uL Normal <0.46 [facility] Comment on above: Order Comment: Speci men Type: BLOOD SPECIMEN Ordering Facility: [facility] Address: [address] Performed By: #### 1 9123-9, #### [facility] CLIA [id number] [address] [place] [address] [place] Eosinophils/100 WBC (Bld) 3.1 % Normal [facility] Comment on above: Order Comment: Speci men Type: BLOOD SPECIMEN Ordering Facility: [facility] Address: [address] Performed By: #### 1 9123-9, 07753-1 #### [facility] CLIA [id number] [address] [place] [address] [place] Erythrocyte distribution width (RBC) [Ratio] 15.4 % High 11.5-15.0 [facility] Comment on above: Order Comment: Speci men Type: BLOOD SPECIMEN Ordering Facility: [facility] Address: [address] Performed By: #### 1 9123-9, #### [facility] CLIA [id number] [address] [place] [address] [place] Hematocrit (Bld) [Volume fraction] 31.6 % Low 36.0-46.0 [facility] Comment on above: Order Comment: Speci men Type: BLOOD SPECIMEN Ordering Facility: [facility] Address: [address] [place], [place] [id number] Performed By: #### 1 [address], #### [facility] CLIA [id number] [address] [place] [address] [place] Hemoglobin (Bld) [Mass/Vol] 9.7 g/dL Low 11.5-15.5 [facility] Comment on above: Order Comment: Speci men Type: BLOOD SPECIMEN Ordering Facility: [facility] Address: [address] [place] [address] Performed By: #### 1 912[address], #### [facility] CLIA [id number] [address] [place] [address] [place] Immature granulocytes (Bld) [#/Vol] 0.03 10*3/uL Normal <0.10 [facility] Comment on above: Order Comment: Speci men Type: BLOOD SPECIMEN Ordering Facility: [facility] Address: [address] [place], [place] [id number] Performed By: #### 1 [address]12[address], #### [facility] CLIA [id number] [address] [place] [address] [place] Immature granulocytes/100 WBC (Bld) 0.3 % Normal [facility] Comment on above: Order Comment: Speci men Type: BLOOD SPECIMEN Ordering Facility: [facility] Address: [address] [place], [place] [id number] Performed By: #### 1 9123-9, #### [facility] CLIA [id number] [address] [place] [address] [place] Lymphocytes (Bld) [#/Vol] 2.43 10*3/uL Normal 1.00-4.00 [facility] Comment on above: Order Comment: Speci men Type: BLOOD SPECIMEN Ordering Facility: [facility] Address: [address] [place] [address] Performed By: #### 1 9123-9, 20951-8 #### [facility] CLIA [id number] [address] [place] [address] [place] Lymphocytes/100 WBC (Bld) 23.6 % Normal [facility] Comment on above: Order Comment: Speci men Type: BLOOD SPECIMEN Ordering Facility: [facility] Address: [address] [place] [address] Performed By: #### 1 9123-9, 05173-7 #### [facility] CLIA [id number] [address] [place] [address] [place] MCH (RBC) [Entitic mass] 23.6 pg Low 26.0-34.0 [facility] Comment on above: Order Comment: Speci men Type: BLOOD SPECIMEN Ordering Facility: [facility] Address: [address] [place] [address] Performed By: #### 1 9123-9, 16889-9 #### [facility] CLIA [id number] [address] [place] [address] [place] MCHC (RBC) [Mass/Vol] 30.7 g/dL Normal 30.5-36.0 [facility] Comment on above: Order Comment: Speci men Type: BLOOD SPECIMEN Ordering Facility: [facility] Address: [address] [place] [address] Performed By: #### 1 9123-9, 21294-2 #### [facility] CLIA [id number] [address] [place] [id number] [address] [place] MCV (RBC) [Entitic vol] 76.9 fL Low 80.0-100.0 [facility] Comment on above: Order Comment: Speci men Type: BLOOD SPECIMEN [facility] Address: [address] [place], [place] [address] Performed By: #### 1 9123-9, 75361-9 #### [facility] CLIA [id number] [address] [place] [address] [place] Monocytes (Bld) [#/Vol] 0.57 10*3/uL Normal <0.87 [facility] Comment on above: Order Comment: Speci men Type: BLOOD SPECIMEN Ordering Facility[facility] Address: [address] [place] [address] Performed By: #### 1 9123-9, #### [facility] CLIA [id number] [address] [place] [address] [place] Monocytes/100 WBC (Bld) 5.5 % Normal [facility] Comment on above: Order Comment: Speci men Type: BLOOD SPECIMEN Order[facility] Address: [address] [place], [place] [address] Performed By: #### 1 9123-9, #### [facility] CLIA [id number] [address] [place] [address] [place] Neutrophils (Bld) [#/Vol] 6.89 10*3/uL Normal 1.45-7.50 [facility] Comment on above: Order Comment: Speci men Type: BLOOD SPECIMEN [facility] Address: [address] [place], [place] [address] Performed By: #### 1 9123-9, 00276-5 #### [facility] CLIA [id number] [address] [place] [address] [place] Neutrophils/100 WBC (Bld) 67.1 % Normal [facility] Comment on above: Order Comment: Speci men Type: BLOOD SPECIMEN Order[facility] Address: [address] [place] [address] Performed By: #### 1 9123-9, 59461-9 #### [facility] CLIA [id number] [address] [place] [address] [place] Nucleated RBC (Bld) [#/Vol] 10*3/uL Normal <0.01 [facility] Comment on above: Order Comment: Speci men Type: BLOOD SPECIMEN Order[facility] Address: [address] Performed By: #### 1 9123-9, 89200-5 #### [facility] CLIA [id number] [address] [place] [address] [place] Nucleated RBC/100 WBC (Bld) [Ratio] 0.0 /100 WBC Normal [facility] Comment on above: Order Comment: Speci men Type: BLOOD SPECIMEN [facility] Address: [address] [place], [place] [address] Performed By: #### 1 9123-9, 95728-5 #### [facility] CLIA [id number] [address] [place] [address] [place] Platelet mean volume (Bld) [Entitic vol] 9.0 fL Normal 9.0-12.7 [facility] Comment on above: Order Comment: Speci men Type: BLOOD SPECIMEN [facility] Address: [address] [place] [address] Performed By: #### 1 9123-9, 06587-9 #### [facility] CLIA [id number] [address] [place] [address] [place] Platelets (Bld) [#/Vol] 477 10*3/uL High 150-400 [facility] Comment on above: Order Comment: Speci men Type: BLOOD SPECIMEN Ordering [facility] Address: [address] [place], [place] [address] Performed By: #### 1 9123-9, 10221-5 #### [facility] CLIA [id number] [address] [place] [address] [place] RBC (Bld) [#/Vol] 4.11 10*6/uL Normal 3.90-5.20 [facility] Comment on above: Order Comment: Speci men Type: BLOOD SPECIMEN [facility] Address: [address] [place] [address] Performed By: #### 1 9123-9, 50310-1 #### [facility] CLIA [id number] [address] [place] [address] [place] WBC (Bld) [#/Vol] 10.28 10*3/uL Normal 3.70-11.00 [facility] Comment on above: Order Comment: Speci men Type: BLOOD SPECIMEN Order[facility] Address: [address] [place] [address] Performed By: #### 1 9123-9, 55476-6 #### [facility] IA [id number] [address] [place] [address] [place] BRAIN WO IVCONon 03-08-[address] BRAIN WO IVCON * * *Final Report* * * DATE OF EXAM: Mar 08 2024 5:24PM [facility] 0504 - CT BRAIN WO IVCON / [...] circulation: Distal vertebral arteries, basilar trunk and application development liaison are normal in caliber. Left V4 is dominant. configuration of the left FOOD PRODUCTION MACHINE OPERATOR. Proximal SCAs, AICAs and PICAs are patent. No vessel cut off, filling defect, significant focal narrowing or evidence of aneurysm. Opacified dural venous sinuses and major deep and superficial draining veins are patent. Bale Coverer (topogram) images: No significant findings. IMPRESSION: No acute intracranial abnormality. No large vessel occlusion, stenosis, or aneurysm. Arterial blood flow was measured to detect acute large vessel occlusion by computer aided detection software: Not Performed. Concordance between software and imaging review: Not Applicable. 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 Operator: JAYMIE Transcribe Date/Time: Mar 08 2024 5:26P Dictated by : JOI MANN DO This examination was interpreted and the report reviewed and electronically signed by: CIERRA CUEVA MD on Mar 08 2024 5:37PM EST [id number] Normal [facility] CTA HEAD W IVCONon 4 CTA HEAD W IVCON * * *Final Report* * * DATE OF EXAM: Mar 08 2024 5:24PM [facility] 0022 - CTA HEAD W IVCON / [...] circulation: Distal vertebral arteries, basilar trunk and application development liaison are normal in caliber. Left V4 is dominant. configuration of the left FOOD PRODUCTION MACHINE OPERATOR. Proximal SCAs, AICAs and PICAs are patent. No vessel cut off, filling defect, significant focal narrowing or evidence of aneurysm. Opacified dural venous sinuses and major deep and superficial draining veins are patent. Bale Coverer (topogram) images: No significant findings. IMPRESSION: No acute intracranial abnormality. No large vessel occlusion, stenosis, or aneurysm. Arterial blood flow was measured to detect acute large vessel occlusion by computer aided detection software: Not Performed. Concordance between software and imaging review: Not Applicable. 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 Operator: JAYMIE Transcribe Date/Time: Mar 08 2024 5:26P Dictated by : JOI MANN, DO This examination was interpreted and the report reviewed and electronically signed by: CIERRA CUEVA MD on Mar 08 2024 5:37PM EST [id number] Normal [facility] metabolic 2000 panelon 03-08-2024 Albumin [Mass/Vol] 4.1 g/dL Normal 3.9-4.9 [facility] Comment on above: Order Comment: Speci men Type: BLOOD SPECIMEN [facility] Address: [address] [place] [address] Performed By: #### 1 9123-9, 12222-6 #### [facility] CLIA [id number] [address] [place] [address] [place] ALP [Catalytic activity/Vol] 83 U/L Normal 34-123 [facility] Comment on above: Order Comment: Speci men Type: BLOOD SPECIMEN [facility] Address: [address] [place] [address] Performed By: #### 1 9123-9, 32223-5 #### [facility] CLIA [id number] [address] [place] [address] [place] ALT [Catalytic activity/Vol] 6 U/L Low 7-38 [facility] Comment on above: Order Comment: Speci men Type: BLOOD SPECIMEN [facility] Address: [address] [place] [address] Performed By: #### 1 9123-9, 76163-4 #### [facility] CLIA [id number] [address] [place] [address] [place] Anion gap [Moles/Vol] 10 mmol/L Normal 8-15 [facility] Comment on above: Order Comment: Speci men Type: BLOOD SPECIMEN [facility] Address: [address] [place], [place] [address] Performed By: #### 1 9123-9, 17594-2 #### [facility] CLIA [id number] [address] [place] [address] [place] AST [Catalytic activity/Vol] 8 U/L Low 13-35 [facility] Comment on above: Order Comment: Speci men Type: BLOOD SPECIMEN [facility] Address: [address] Performed By: #### 1 9123-9, 79949-5 #### [facility] CLIA [id number] [address] [place] [address] [place] Bilirubin [Mass/Vol] mg/dL Low 0.2-1.3 [facility] Comment on above: Order Comment: Speci men Type: BLOOD SPECIMEN [facility] Address: [address] Performed By: #### 1 9123-9, 26629-4 #### [facility] CLIA [id number] [address] [place] [address] [place] Calcium [Mass/Vol] 9.0 mg/dL Normal 8.5-10.2 [facility] Comment on above: Order Comment: Speci men Type: BLOOD SPECIMEN [facility] Address: [address] Performed By: #### 1 9123-9, 41057-9 #### [facility] CLIA [id number] [address] [place] [address] [place] Chloride [Moles/Vol] 108 mmol/L High 98-107 [facility] Comment on above: Order Comment: Speci men Type: BLOOD SPECIMEN [facility] Address: [address] Performed By: #### 1 9123-9, 40083-6 #### [facility] CLIA [id number] [address] [place] [address] [place] CO2 [Moles/Vol] 22 mmol/L Normal 22-30 [facility] Comment on above: Order Comment: Speci men Type: BLOOD SPECIMEN [facility] Address: [address] Performed By: #### 1 9123-9, 28165-3 #### [facility] CLIA [id number] [address] STATES OF [facility] Creatinine [Mass/Vol] 0.79 mg/dL Normal 0.58-0.96 [facility] Comment on above: Order Comment: Tee francisco Type: BLOOD SPECIMEN Order[facility] Address: [address] [place] [address] Performed By: #### 1 9123-9, 40970-8 #### [facility] CLIA [id number] [address] Creatinine and Glomerular filtration rate.predicted panel (S/P/Bld) 103 mL/min/1.73m??? Normal >=60 [facility] Comment on above: Order Comment: Tee francisco Type: BLOOD SPECIMEN [facility] Address: [address] [place] [address] Result Comment: Marisa mated Glomerular Filtration Rate [...] actual GFR. Performed By: #### 1 9123-9, 86219-9 #### [facility] CLIA [id number] [address] [place] Glucose [Mass/Vol] 103 mg/dL High 74-99 [facility] Comment on above: Order Comment: Tee francisco Type: BLOOD SPECIMEN [facility] Address: [address] [place] [address] Result Comment: The [place] [employer] Association (ADA) provides guidance for cutoff [...] Standards of Medical Care in Diabetes 2016, [place] [employer]. Diabetes Care. 2016.39(Suppl 1). Performed By: #### 1 9123-9, 66799-2 #### [facility] CLIA [id number] [address] [place] [address] [place] Potassium [Moles/Vol] 3.9 mmol/L Normal 3.7-5.1 [facility] Comment on above: Order Comment: Speci men Type: BLOOD SPECIMEN [facility] Address: [address] [place] [address] Performed By: #### 1 91239, 82808-8 #### [facility] CLIA [id number] [facility] [place] [address] [place] Protein [Mass/Vol] 6.7 g/dL Normal 6.3-8.0 [facility] Comment on above: Order Comment: Tee francisco Type: BLOOD SPECIMEN [facility] Address: [address] [place] [address] Performed By: #### 1 9123-9, 81461-0 #### [facility] CLIA [id number] [facility] [place] [address] [place] Sodium [Moles/Vol] 140 mmol/L Normal 136-144 [facility] Comment on above: Order Comment: Neemai men Type: BLOOD SPECIMEN [facility] Address: [address] [place] [address] Performed By: #### 1 9123-9, 37814-9 #### [facility] CLIA [id number] [address] [place] [id number] [place] Urea nitrogen [Mass/Vol] 15 mg/dL Normal 7-21 [facility] Comment on above: Order Comment: Speci men Type: BLOOD SPECIMEN [facility] Address: [address] [place], [place] [address] Performed By: #### 1 9123-9, 71369-8 #### [facility] CLIA [id number] [address] [facility] [id number] [place] [address] OF [facility] ED PROV NOTEon 03-08-2024 ED PROV NOTE HNO ID: [id number] Author: PILAR LOERA MD Service: Emergency Medicine Author Type: Physician Type: ED Provider Notes Filed: 03/08/2024 20:44 Note Text: EMERGENCY MEDICINE NOTE Patient presents with: Headache: Headache for two weeks, no relief with pain medications at home. Hx of brain aneurysm, that was dx 6 months ago with MRI @ [facility]. 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 Mildly tachycardic. Normotensive. Normal RR. Satting well on RA 1747 CT/CTA head: My personal interpretation: No large intracranial bleeds or obvious LVO Radiology interpretation: No acute intracranial abnormality. No large vessel occlusion, stenosis, or aneurysm. 183 On re-evaluation, patient feels significantly improved after meds. 185 CBCD: Mildly worsened anemia compared to baseline. Mildly elevated platelets. No leukocytosis. 1852 Urine hCG (POCT): Negative 1857 CMP: LFTs WNL. Renal function WNL. Electrolytes and acid-base status WNL 185 Magnesium: 2.0 WNL Others' Documentation Nohelia Mar 08, 2024 1845 ED STAFF ATTENDING MDM 33 year old [...] prefer to follow up with her local Cracking Machine Operator. She has capacity to make that decision. [...] and is requesting to leave as her at home was with the art history professor who is having issues. Deemed to have capacity. Very low suspicion for SAH based on HANDP, negative CT imaging. Made follow-up appointment with F neurology and encour (more content not included)... Normal [facility] ED Triage Noteon 03-08-2024 ED Triage Note HNO ID: [id number] Author: MARGOT ARAUJO MD Service: Emergency Medicine [...] this encounter. SIGNATURE: Margot Araujo MD Normal [facility] Magnesium SerPl-mCncon 03-08 Magnesium [Mass/Vol] 2.0 mg/dL Normal 1.7-2.3 [facility] Comment on above: Order Comment: Speci men Type: BLOOD SPECIMEN [facility] Address: [address] [facility] [place] [address] Performed By: #### 1 9123-9, 77689-6 #### [facility] CLIA [id number] [address] [facility] [place] [id number] [address] [facility] Basic Metabolic Profon 02-11 Anion gap [Moles/Vol] 13 mmol/L Normal 9-17 [facility] Comment on above: Performed By: #### B YOJANA, CDP #### [facility] [address] [place], [place] [id number] Emergency Care Tech: Aaron Arteaga MD BUN/CRE Ratio 13 Normal 9-20 [facility] Comment on above: Performed By: #### B YOJANA, CDP #### [facility] [address] [place] [address] Emergency Care Tech: Aaron Arteaga MD Calcium [Mass/Vol] 9.0 mg/dL Normal 8.6-10.4 [facility] Comment on above: Performed By: #### B YOJANA, CDP #### [facility] [address] [place], [place] [id number] Emergency Care Tech: Aaron Arteaga MD Chloride [Moles/Vol] 103 mmol/L Normal 98-107 [facility] Comment on above: Performed By: #### B MP, CDP #### [facility] [address] [place], [place] [phone] Emergency Care Tech: Aaron Arteaga MD CO2 [Moles/Vol] 21 mmol/L Normal 20-31 [facility] Comment on above: Performed By: #### B MP, CDP #### [facility] [address] [place], [place] [id number] Emergency Care Tech: Aaron Arteaga MD Creatinine [Mass/Vol] 0.9 mg/dL Normal 0.5-0.9 [facility] Comment on above: Performed By: #### B YOJANA, CDP #### [facility] [address] [place], [place] [phone] Emergency Care Tech: Aaron Arteaga MD GFR/1.73 sq M.predicted among non-blacks MDRD (S/P/Bld) [Vol rate/Area] 88 mL/min/{1.73_m2} Normal >60 [facility] Comment on above: Result Comment: These [...] Performed By: #### B YOJANA, CDP #### [facility] [address] [place] [address] Emergency Care Tech: Aaron Arteaga MD Glucose [Mass/Vol] 119 mg/dL High 70-99 [facility] Comment on above: Performed By: #### B YOJANA, CDP #### [facility] [address] [place], [place] [id number] Emergency Care Tech: Aaron Arteaga MD Potassium [Moles/Vol] 4.0 mmol/L Normal 3.7-5.3 [facility] Comment on above: Performed By: #### B YOJANA, CDP #### [facility] [address] [place] [address] Emergency Care Tech: Aaron Arteaga MD Sodium [Moles/Vol] 137 mmol/L Normal 135-144 [facility] Comment on above: Performed By: #### B YOJANA, CDP #### [facility] [address] [place], [place] [id number] Emergency Care Tech: Aaron Arteaga MD Urea nitrogen [Mass/Vol] 12 mg/dL Normal 6-20 [facility] Comment on above: Performed By: #### B YOJANA, CDP #### [facility] [address] [place] [address] Emergency Care Tech: Aaorn Arteaga MD CBC with Diffon 02-12-2024 Abs. Basophil 0.05 k/uL Normal 0.00-0.20 [facility] Comment on above: Performed By: #### B MP, CDP #### [facility] [address] [place] [phone] Emergency Care Tech: Aaron Arteaga MD Abs.Imm.Granulocyte 0.02 k/uL Normal 0.00-0.30 [facility] Comment on above: Performed By: #### B YOJANA, CDP #### [facility] [address] [place] [address] Emergency Care Tech: Aaron Arteaga MD Abs.Neutrophil (Seg) 8.95 k/uL High 2.5-7.0 [facility] Comment on above: Performed By: #### B YOJANA, CDP #### [facility] [address] [place] [phone] Emergency Care Tech: Aaron Arteaga MD Basophils/100 WBC (Bld) 0 % Normal 0-2 [facility] Comment on above: Performed By: #### B YOJANA, CDP #### [facility] [address] [place] [phone] Emergency Care Tech: Aaron Arteaga MD Eosinophils (Bld) [#/Vol] 0.09 10*3/uL Normal 0.00-0.40 [facility] Comment on above: Performed By: #### B MP, CDP #### [facility] [address] [place] [phone] Emergency Care Tech: Aaron Arteaga MD Eosinophils/100 WBC (Bld) 1 % Normal 0-5 [facility] Comment on above: Performed By: #### B YOJANA, CDP #### [facility] [address] [place], [place] [phone] Emergency Care Tech: Aaron Arteaga MD Erythrocyte distribution width (RBC) [Ratio] 15.9 % High 12.1-15.2 [facility] Comment on above: Performed By: #### B MP, CDP #### [facility] [address] [place], [place] [phone] Emergency Care Tech: Aaron Arteaga MD Hematocrit (Bld) [Volume fraction] 33.0 % Low 36.0-46.0 [facility] Comment on above: Performed By: #### B MP, CDP #### [facility] [address] [place] [address] Emergency Care Tech: Aaron Arteaga MD Hemoglobin (Bld) [Mass/Vol] 10.6 g/dL Low 12.0-16.0 [facility] Comment on above: Performed By: #### B MP, CDP #### [facility] [address] [place], [place] [phone] Emergency Care Tech: Aaron Arteaga MD Immature granulocytes/100 WBC (Bld) 0 % Normal 0-5 [facility] Comment on above: Performed By: #### B MP, CDP #### [facility] [address] [place], [place] [phone] Emergency Care Tech: Aaron Arteaga MD Lymphocytes (Bld) [#/Vol] 2.40 10*3/uL Normal 1.00-4.80 [facility] Comment on above: Performed By: #### B MP, CDP #### [facility] [address] [place] [address] Emergency Care Tech: Aaron Arteaga MD Lymphocytes/100 WBC (Bld) 20 % Normal 15-40 [facility] Comment on above: Performed By: #### B MP, CDP #### [facility] [address] [place] [address] Emergency Care Tech: Aaron Arteaga MD MCH (RBC) [Entitic mass] 24.7 pg Low 26.0-34.0 [facility] Comment on above: Performed By: #### B YOJANA, CDP #### [facility] [address] [place] [address] Emergency Care Tech: Aaron Arteaga MD MCHC (RBC) [Mass/Vol] 32.1 g/dL Normal 31.0-37.0 [facility] Comment on above: Performed By: #### B MP, CDP #### [facility] [address] [place] [address] Emergency Care Tech: Aaron Arteaga MD MCV (RBC) [Entitic vol] 76.9 fL Low 80.0-100.0 [facility] Comment on above: Performed By: #### B YOJANA, CDP #### [facility] [address] [place] [address] Emergency Care Tech: Aaron Arteaga MD Monocytes (Bld) [#/Vol] 0.68 10*3/uL Normal 0.00-1.00 [facility] Comment on above: Performed By: #### B YOJANA, CDP #### [facility] [address] [place] [address] Emergency Care Tech: Aaron Arteaga MD Monocytes/100 WBC (Bld) 6 % Normal 4-8 [facility] Comment on above: Performed By: #### B MP, CDP #### [facility] [address] [place] [address] Emergency Care Tech: Aaron Arteaga MD Neutrophil (Seg) 73 % Normal 47-75 [facility] Comment on above: Performed By: #### B MP, CDP #### [facility] [address] [place] [address] Emergency Care Tech: Aaron Arteaga MD Platelet mean volume (Bld) [Entitic vol] 8.8 fL Normal 6.0-12.0 [facility] Comment on above: Performed By: #### B MP, CDP #### [facility] [address] [place] [address] Emergency Care Tech: Aaron Arteaga MD Platelets (Bld) [#/Vol] 471 10*3/uL High 140-450 [facility] Comment on above: Performed By: #### B MP, CDP #### [facility] [address] [place] [address] Emergency Care Tech: Aaron Arteaga MD RBC (Bld) [#/Vol] 4.29 10*6/uL Normal 4.00-5.20 [facility] Comment on above: Performed By: #### B YOJANA, CDP #### [facility] [address] [place] [address] Emergency Care Tech: Aaron Arteaga MD WBC (Bld) [#/Vol] 12.2 10*3/uL High 3.5-11.0 [facility] Comment on above: Performed By: #### B MP, CDP #### [facility] [address] [place] [address] Emergency Care Tech: Aaron Arteaga MD HCG, Quanton 02-12-2024 HCG, Quant 4942.0 mIU/mL High <5 [facility] Comment on above: Result Comment: Non-preg premeno <=5 Postmeno <=8 Male <=3 If HCG results do not concur with clinical observations, additional testing to confirm results is recommended. Performed By: #### B HCG #### [facility] [address] [place] [address] Emergency Care Tech: Aaron Arteaga MD Surgical Pathology Reporton 02-12-2024 Surgical Pathology Report (NOTE) Path Number: [id number] -- Diagnosis -- PRODUCTS OF CONCEPTION, DILATATION AND CURETTAGE:-PREDOMINANT LY BLOOD WITH A SMALL FIBROTIC CHORIONIC VILLUS, CONSISTENT WITH PRODUCTS OF CONCEPTION. Alisson Marquis Electronically Signed Out tb/02/14/2024 Clinical Information Operative Findings: TISSUE dw Source of Specimen A: PRODUCTS OF CONCEPTION Gross Description ALEXANDRO BLEDSOE Received in formalin are dark red, friable fragments, 10.0 x 5.0 x 3.0 cm in aggregate. No obvious decidual, villous or tissue is seen. Portion 3cs. tm Madison Paz/dw1:02/13/2024 Microscopic Description Microscopic examination performed. Processing Lab: [address] [address] Interpretation Performed at [address] [address] SURGICAL PATHOLOGY CONSULTATION Patient Name: QIAN CLEMENTS [facility] Rec: [id number] [facility] ANATOMIC PATHOLOGY [address] [facility]. [place], [place] [address] Normal [facility] Type + Screenon 02-12-2024 Type + Screen Sample Expiration 02/15/2024,2359 Arm Band Number BWC HIDE ABO/Rh(D) O POSITIVE Antibody Screen NEGATIVE Normal [facility] Comment on above: Performed By: #### T YS #### [facility] [address] [place] [address] Emergency Care Tech: Aaron Arteaga MD US OB LESS THAN [...] Zaheer Markham MD 02/12/24 Final result Normal [facility] CBC AND AUTO DIFFon 09-10-19 ABSOLUTE BASOPHIL 0.0 X10E9/L Normal 0.0-0.2 [facility] Comment on above: Performed By: #### C DHARA [facility], 2532-0, 3084-1, 85206-1 #### [facility] ([id number]) [address], [address] [place] [address] ABSOLUTE NEUTROPHIL 12.8 X10E9/L High 1.5-6.6 [facility] Comment on above: Performed By: #### C DHARA [facility], 2532-0, 3084-1, 55102-3 #### [facility] ([id number]) [address], [address] [place] [address] Basophils/100 WBC (Bld) 0.1 % Normal [facility] Comment on above: Performed By: #### C BC, CMP, 2532-0, 3084-1, 82074-6 #### [facility] ([id number]) [address], [address] [place] [address] Eosinophils (Bld) [#/Vol] 0.0 10*3/uL Normal 0.0-0.4 [facility] Comment on above: Performed By: #### Jeremiah JULES CMP, 2532-0, 3084-1, 04322-1 #### [facility] ([id number]) [address] [address] [place] [address] Eosinophils/100 WBC (Bld) 0.0 % Normal [facility] Comment on above: Performed By: #### Jeremiah JULES CMP, 2532-0, 4-1, 76746-4 #### [facility] ([id number]) [address] [address] [place] [address] Erythrocyte distribution width (RBC) [Ratio] 15.4 % High 11.5-15.0 [facility] Comment on above: Performed By: #### Jeremiah JULES CMP, 2-0, 4-1, 63754-9 #### [facility] ([id number]) [address] [address] [place] [address] Hematocrit (Bld) [Volume fraction] 28.1 % Low 35-47 [facility] Comment on above: Performed By: #### Jeremiah JULES CMP, 2532-0, 4-1, 50937-5 #### [facility] ([id number]) [address] [address] [place] [address] Hemoglobin (Bld) [Mass/Vol] 9.3 g/dL Low 11.7-15.5 [facility] Comment on above: Performed By: #### Jeremiah JULES CMP, 2532-0, 4-1, 12005-9 #### [facility] ([id number]) [address] [address] [place] [address] Lymphocytes (Bld) [#/Vol] 1.6 10*3/uL Normal 1.0-3.5 [facility] Comment on above: Performed By: #### C BC, CMP, 2532-0, 3084-1, 96755-4 #### [facility] ([id number]) [address] [address] [place] [address] Lymphocytes/100 WBC (Bld) 10.8 % Normal [facility] Comment on above: Performed By: #### C BC, CMP, 2532-0, 4-1, 32883-1 #### [facility] ([id number]) [address], [facility] [address] [place] [address] MCH (RBC) [Entitic mass] 26.7 pg Low 27-34 [facility] Comment on above: Performed By: #### C BC, CMP, 2532-0, 4-1, 18660-5 #### [facility] ([id number]) [address] [address] [place] [address] MCHC (RBC) [Mass/Vol] 33.0 g/dL Normal 32-36 [facility] Comment on above: Performed By: #### C BC, CMP, 2532-0, 4-1, 04182-5 #### [facility] ([id number]) [address] [address] [place] [address] MCV (RBC) [Entitic vol] 81 fL Normal 80-100 [facility] Comment on above: Performed By: #### C BC, CMP, 2532-0, 4-1, 06563-6 #### [facility] ([id number]) [address], [facility] [address] [place] [address] Monocytes (Bld) [#/Vol] 0.1 10*3/uL Normal 0-0.9 [facility] Comment on above: Performed By: #### C BC, CMP, 2532-0, 3084-1, 84706-6 #### [facility] ([id number]) [address] [address] [place] [address] Monocytes/100 WBC (Bld) 0.9 % Normal [facility] Comment on above: Performed By: #### C BC, CMP, 2532-0, 3084-1, 97269-7 #### [facility] ([id number]) [address], [address] [place] [address] Neutrophils/100 WBC (Bld) 88.2 % Normal [facility] Comment on above: Performed By: #### Jeremiah BC, CMP, 2532-0, 4-1, 64524-0 #### [facility] ([id number]) [address], [address] [place] [address] Platelet mean volume (Bld) [Entitic vol] 6.9 fL Low 7-12 [facility] Comment on above: Performed By: #### Jeremiah BC, CMP, 2532-0, 4-1, 56078-7 #### [facility] ([id number]) [address], [address] [place] [address] Platelets (Bld) [#/Vol] 657 10*3/uL High 150-450 [facility] Comment on above: Performed By: #### Jeremiah BC, CMP, 2532-0, 3083-1, 55950-4 #### [facility] ([id number]) [address], [address] [place] [address] RBC COUNT 3.47 X10E12/L Low 3.80-5.20 [facility] Comment on above: Performed By: #### Jeremiah BC, CMP, 2532-0, 3084-1, 39798-5 #### [facility] ([id number]) [address], [address] [place] [address] WBC (Bld) [#/Vol] 14.6 10*3/uL High 4.0-11.0 [facility] Comment on above: Performed By: #### Jeremiah BC, CMP, 2532-0, 3084-1, 21784-2 #### [facility] ([id number]) [address], [address] [place] [address] COMPREHENSIVE METABOLIC PANE Ez 09-10-2023 Albumin [Mass/Vol] 3.7 g/dL Normal 3.2-5.3 [facility] Comment on above: Performed By: #### C BC, CMP, 2532-0, 3084-1, 24150-6 #### [facility] ([id number]) [address], [address] [place] [address] ALP [Catalytic activity/Vol] 98 U/L Normal 39-130 [facility] Comment on above: Performed By: #### Jeremiah BC, CMP, 2532-0, 3084-1, 32939-3 #### [facility] ([id number]) [address], [address] [place] [address] ALT [Catalytic activity/Vol] 11 U/L Normal 0-31 [facility] Comment on above: Performed By: #### Jeremiah BC, CMP, 2532-0, 3084-1, 77054-3 #### [facility] ([id number]) [address], [address] [place] [address] Anion gap [Moles/Vol] 13 mmol/L Normal 5-15 [facility] Comment on above: Performed By: #### Jeremiah BC, CMP, 2532-0, 3084-1, 14573-0 #### [facility] ([id number]) [address], [address] [place] [address] AST [Catalytic activity/Vol] 9 U/L Normal 0-41 [facility] Comment on above: Performed By: #### C BC, CMP, 2532-0, 3084-1, 38494-4 #### [facility] ([id number]) [address], [address] [place] [address] Bilirubin [Mass/Vol] 0.3 mg/dL Normal 0.3-1.2 [facility] Comment on above: Performed By: #### C DHARA, CMP, 2532-0, 3084-1, 53316-2 #### [facility] ([id number]) [address], [facility] [address] [place] [address] Calcium [Mass/Vol] 8.9 mg/dL Normal 8.5-10.5 [facility] Comment on above: Performed By: #### C DHARA, CMP, 2532-0, 3084-1, 86412-5 #### [facility] ([id number]) [address], [address] [address] Chloride [Moles/Vol] 104 mmol/L Normal 98-109 [facility] Comment on above: Performed By: #### Jeremiah JULES CMP, 2532-0, 3084-1, 02576-2 #### [facility] ([id number]) [address], [address] [address] CO2 [Moles/Vol] 20 mmol/L Low 22-32 [facility] Comment on above: Performed By: #### Jeremiah JULES, CMP, 2532-0, 3084-1, 89331-4 #### [facility] ([id number]) [address] [address] Creatinine [Mass/Vol] 0.75 mg/dL Normal 0.40-1.00 [facility] Comment on above: Result Comment: METH OD TRACEABLE TO IDMS STANDARD Performed By: #### C DHARA, CMP, 2532-0, 3084-1, 24869-3 #### [facility] ([id number]) [address], [facility] [address] [place] [address] eGFR (CKD-EPI) NON-RACE DEPENDENT >90 Normal >59 [facility] Comment on above: Result Comment: Reported eGFR is based on the CKD-EPI 2020 equation that does not use a race coefficient. Performed By: #### C DHARA CMP, 2532-0, 3084-1, 04097-5 #### [facility] ([id number]) [address], [address] [place] [address] Glucose [Mass/Vol] 179 mg/dL High 65-99 [facility] Comment on above: Performed By: #### C BC, CMP, 2532-0, 3084-1, 51179-3 #### [facility] ([id number]) [address], [address] [place] [address] Potassium [Moles/Vol] 4.1 mmol/L Normal 3.5-5.0 [facility] Comment on above: Performed By: #### Jeremiah BC, CMP, 2532-0, 3084-1, 57216-5 #### [facility] ([id number]) [address], [address] [place] [address] Protein [Mass/Vol] 7.1 g/dL Normal 6.0-8.0 [facility] Comment on above: Performed By: #### Jeremiah BC, CMP, 2532-0, 3084-1, 02979-1 #### [facility] ([id number]) [address], [address] [place] [address] Sodium [Moles/Vol] 137 mmol/L Normal 134-146 [facility] Comment on above: Performed By: #### Jeremiah BC, CMP, 2532-0, 3084-1, 93219-0 #### [facility] ([id number]) [address], [address] [place] [address] Urea nitrogen [Mass/Vol] 13 mg/dL Normal 5-23 [facility] Comment on above: Performed By: #### C BC, CMP, 2532-0, 3084-1, 53388-1 #### [facility] ([id number]) [address], [address] [place] [address] CBC AND AUTO DIFFon 09-09-19 24 ABSOLUTE BASOPHIL 0.1 X10E9/L Normal 0.0-0.2 [facility] Comment on above: Performed By: #### C BC, CMP, 2532-0, 3084-1, 10992-4 #### [facility] ([id number]) [address], [address] [place] [address] ABSOLUTE NEUTROPHIL 7.1 X10E9/L High 1.5-6.6 [facility] Comment on above: Performed By: #### C BC, CMP, 2532-0, 3084-1, 99223-3 #### [facility] ([id number]) [address], [facility] [address] [place] [address] Basophils/100 WBC (Bld) 1.0 % Normal [facility] Comment on above: Performed By: #### C BC, CMP, 2532-0, 3084-1, 14741-4 #### [facility] ([id number]) [address], [address] [place] [address] Eosinophils (Bld) [#/Vol] 0.2 10*3/uL Normal 0.0-0.4 [facility] Comment on above: Performed By: #### C BC, CMP, 2532-0, 3084-1, 28141-0 #### [facility] ([id number]) [address], [address] [place] [address] Eosinophils/100 WBC (Bld) 1.4 % Normal [facility] Comment on above: Performed By: #### C BC, CMP, 2532-0, 3084-1, 16357-9 #### [facility] ([id number]) [address], [address] [place] [address] Erythrocyte distribution width (RBC) [Ratio] 15.6 % High 11.5-15.0 [facility] Comment on above: Performed By: #### C BC, CMP, 2532-0, 3084-1, 43223-7 #### [facility] ([id number]) [address], [address] [place] [address] Hematocrit (Bld) [Volume fraction] 25.1 % Low 35-47 [facility] Comment on above: Performed By: #### C BC, CMP, 2532-0, 4-1, 83361-2 #### [facility] ([id number]) [address], [address] [place] [address] Hemoglobin (Bld) [Mass/Vol] 8.2 g/dL Low 11.7-15.5 [facility] Comment on above: Performed By: #### C DHARA, CMP, 2532-0, 3083-1, 17942-0 #### [facility] ([id number]) [address], [facility] [address] [place] [address] Lymphocytes (Bld) [#/Vol] 2.8 10*3/uL Normal 1.0-3.5 [facility] Comment on above: Performed By: #### Jeremiah JULES, CMP, 2-0, 3083-, 70242-5 #### [facility] ([id number]) [address], [facility] [address] [place] [address] Lymphocytes/100 WBC (Bld) 26.0 % Normal [facility] Comment on above: Performed By: #### Jeremiah BC, CMP, 2532-0, 3083-1, 90237-2 #### [facility] ([id number]) [address], [address] [place] [address] MCH (RBC) [Entitic mass] 26.7 pg Low 27-34 [facility] Comment on above: Performed By: #### C BC, CMP, 2532-0, 4-1, 98464-9 #### [facility] ([id number]) [address], [address] [place] [address] MCHC (RBC) [Mass/Vol] 32.6 g/dL Normal 32-36 [facility] Comment on above: Performed By: #### C BC, CMP, 2532-0, 3084-1, 30607-4 #### [facility] ([id number]) [address], [address] [place] [address] MCV (RBC) [Entitic vol] 82 fL Normal 80-100 [facility] Comment on above: Performed By: #### Jeremiah BC, CMP, 2532-0, 4-1, 43422-2 #### [facility] ([id number]) [address], [address] [place] [address] Monocytes (Bld) [#/Vol] 0.7 10*3/uL Normal 0-0.9 [facility] Comment on above: Performed By: #### Jeremiah BC, CMP, 2532-0, 4-1, 76207-0 #### [facility] ([id number]) [address], [address] [place] [address] Monocytes/100 WBC (Bld) 6.5 % Normal [facility] Comment on above: Performed By: #### Jeremiah BC, CMP, 2532-0, 4-1, 82970-7 #### [facility] ([id number]) [address], [address] [place] [address] Neutrophils/100 WBC (Bld) 65.1 % Normal [facility] Comment on above: Performed By: #### Jeremiah BC, CMP, 2532-0, 4-1, 85712-5 #### [facility] ([id number]) [address], [address] [place] [address] Platelet mean volume (Bld) [Entitic vol] 6.9 fL Low 7-12 [facility] Comment on above: Performed By: #### Jeremiah BC, CMP, 2532-0, 4-1, 01260-1 #### [facility] ([id number]) [address], [address] [place] [address] Platelets (Bld) [#/Vol] 464 10*3/uL High 150-450 [facility] Comment on above: Performed By: #### C BC, CMP, 2532-0, 3084-1, 56042-3 #### [facility] ([id number]) [address], [address] [place] [address] RBC COUNT 3.07 X10E12/L Low 3.80-5.20 [facility] Comment on above: Performed By: #### C BC, CMP, 2532-0, 3084-1, 34021-2 #### [facility] ([id number]) [address] [place] [address] WBC (Bld) [#/Vol] 10.8 10*3/uL Normal 4.0-11.0 [facility] Comment on above: Performed By: #### C BC, CMP, 2532-0, 3084-1, 00499-0 #### [facility] ([id number]) [address], [address] [place] [address] COMPREHENSIVE METABOLIC PANE Ez 09-09-2023 Albumin [Mass/Vol] 3.1 g/dL Low 3.2-5.3 [facility] Comment on above: Performed By: #### C BC, CMP, 2532-0, 3084-1, 98315-7 #### [facility] ([id number]) [address], [address] [place] [address] ALP [Catalytic activity/Vol] 91 U/L Normal 39-130 [facility] Comment on above: Performed By: #### C BC, CMP, 2532-0, 3084-1, 46691-4 #### [facility] ([id number]) [address], [address] [place] [address] ALT [Catalytic activity/Vol] 8 U/L Normal 0-31 [facility] Comment on above: Performed By: #### C BC, CMP, 2532-0, 3084-1, 42318-0 #### [facility] ([id number]) [address], [address] [place] [address] Anion gap [Moles/Vol] 9 mmol/L Normal 5-15 [facility] Comment on above: Performed By: #### C BC, CMP, 2532-0, 3084-1, 47636-3 #### [facility] ([id number]) [address], [address] [place] [address] AST [Catalytic activity/Vol] 12 U/L Normal 0-41 [facility] Comment on above: Performed By: #### Jeremiah BC, CMP, 2532-0, 3084-1, 88891-6 #### [facility] ([id number]) [address], [address] [place] [address] Bilirubin [Mass/Vol] 0.2 mg/dL Low 0.3-1.2 [facility] Comment on above: Performed By: #### C BC, CMP, 2532-0, 3084-1, 22298-7 #### [facility] ([id number]) [address], [address] [place] [address] Calcium [Mass/Vol] 8.2 mg/dL Low 8.5-10.5 [facility] Comment on above: Performed By: #### C BC, CMP, 2532-0, 3084-1, 48290-4 #### [facility] ([id number]) [address], [address] [place] [address] Chloride [Moles/Vol] 108 mmol/L Normal 98-109 [facility] Comment on above: Performed By: #### C BC, CMP, 2532-0, 3084-1, 83681-6 #### [facility] ([id number]) [address], [address] [place] [address] CO2 [Moles/Vol] 23 mmol/L Normal 22-32 [facility] Comment on above: Performed By: #### Jeremiah JULES CMP, 2532-0, 3084-1, 58196-5 #### [facility] ([id number]) [address], [address] [place] [address] Creatinine [Mass/Vol] 0.71 mg/dL Normal 0.40-1.00 [facility] Comment on above: Result Comment: METH OD TRACEABLE TO IDMS STANDARD Performed By: #### Jeremiah JULES CMP, 2532-0, 3084-1, 76720-6 #### [facility] ([id number]) [address] [place] [address] eGFR (CKD-EPI) NON-RACE DEPENDENT >90 Normal >59 [facility] Comment on above: Result Comment: Reported eGFR is based on the CKD-EPI 2020 equation that does not use a race coefficient. Performed By: #### Jeremiah JULES CMP, 2532-0, 3084-1, 22056-4 #### [facility] ([id number]) [address], [address] [place] [address] Glucose [Mass/Vol] 80 mg/dL Normal 65-99 [facility] Comment on above: Performed By: #### Jeremiah JULES CMP, 2532-0, 4-1, 82252-7 #### [facility] ([id number]) [address], [address] [place] [address] Potassium [Moles/Vol] 4.5 mmol/L Normal 3.5-5.0 [facility] Comment on above: Performed By: #### Jeremiah JULES CMP, 2532-0, 3084-1, 79609-5 #### [facility] ([id number]) [address] [place] [address] Protein [Mass/Vol] 5.9 g/dL Low 6.0-8.0 [facility] Comment on above: Performed By: #### C BC, CMP, 2532-0, 3084-1, 88313-5 #### [facility] ([id number]) [address] [place] [address] Sodium [Moles/Vol] 140 mmol/L Normal 134-146 [facility] Comment on above: Performed By: #### C BC, CMP, 2532-0, 3084-1, 36265-5 #### [facility] ([id number]) [address], [address] [place] [address] Urea nitrogen [Mass/Vol] 17 mg/dL Normal 5-23 [facility] Comment on above: Performed By: #### Jeremiah BC, CMP, 2532-0, 3084-1, 04762-9 #### [facility] ([id number]) [address] [place] [address] CBC AND AUTO DIFFon 09-08-19 24 ABSOLUTE BASOPHIL 0.1 X10E9/L Normal 0.0-0.2 [facility] Comment on above: Performed By: #### Jeremiah BC, CMP, 2532-0, 3084-1, 21129-0 #### [facility] ([id number]) [address], [address] [place] [address] ABSOLUTE NEUTROPHIL 8.4 X10E9/L High 1.5-6.6 [facility] Comment on above: Performed By: #### C BC, CMP, 2532-0, 3084-1, 72455-5 #### [facility] ([id number]) [address] [place] [address] Basophils/100 WBC (Bld) 0.6 % Normal [facility] Comment on above: Performed By: #### Jeremiah BC, CMP, 2532-0, 3084-1, 34116-5 #### [facility] ([id number]) [address], [address] [place] [address] Eosinophils (Bld) [#/Vol] 0.2 10*3/uL Normal 0.0-0.4 [facility] Comment on above: Performed By: #### C BC, CMP, 2532-0, 3084-1, 94290-4 #### [facility] ([id number]) [address], [facility] [address] [place] [address] Eosinophils/100 WBC (Bld) 1.3 % Normal [facility] Comment on above: Performed By: #### Jeremiah JULES, CMP, 2532-0, 3084-1, 76698-8 #### [facility] ([id number]) [address] [address] [place] [address] Erythrocyte distribution width (RBC) [Ratio] 15.3 % High 11.5-15.0 [facility] Comment on above: Performed By: #### Jeremiah JULES, CMP, 2532-0, 3084-1, 27446-9 #### [facility] ([id number]) [address] [address] [place] [address] Hematocrit (Bld) [Volume fraction] 25.5 % Low 35-47 [facility] Comment on above: Performed By: #### Jeremiah JULES, CMP, 2532-0, 3084-1, 50923-4 #### [facility] ([id number]) [address] [address] [place] [address] Hemoglobin (Bld) [Mass/Vol] 8.4 g/dL Low 11.7-15.5 [facility] Comment on above: Performed By: #### Jeremiah BC, CMP, 2532-0, 3084-1, 39381-8 #### [facility] ([id number]) [address] [address] [place] [address] Lymphocytes (Bld) [#/Vol] 3.0 10*3/uL Normal 1.0-3.5 [facility] Comment on above: Performed By: #### C BC, CMP, 2532-0, 4-1, 24634-8 #### [facility] ([id number]) [address], [address] [place] [address] Lymphocytes/100 WBC (Bld) 24.2 % Normal [facility] Comment on above: Performed By: #### Jeremiah BC, CMP, 2532-0, 4-1, 76918-8 #### [facility] ([id number]) [address], [facility] [address] [place] [address] MCH (RBC) [Entitic mass] 26.6 pg Low 27-34 [facility] Comment on above: Performed By: #### Jeremiah JULES, CMP, 2-0, 3083-1, 25846-9 #### [facility] ([id number]) [address], [address] [place] [address] MCHC (RBC) [Mass/Vol] 33.1 g/dL Normal 32-36 [facility] Comment on above: Performed By: #### Jeremiah BC, CMP, 2532-0, 3083-1, 76593-9 #### [facility] ([id number]) [address], [address] [address] MCV (RBC) [Entitic vol] 80 fL Normal 80-100 [facility] Comment on above: Performed By: #### Jeremiah BC, CMP, 2532-0, 4-1, 48398-2 #### [facility] ([id number]) [address] [address] [place] [address] Monocytes (Bld) [#/Vol] 0.7 10*3/uL Normal 0-0.9 [facility] Comment on above: Performed By: #### Jeremiah BC, CMP, 2532-0, 4-1, 08901-6 #### [facility] ([id number]) [address], [address] [place] [address] Monocytes/100 WBC (Bld) 6.0 % Normal [facility] Comment on above: Performed By: #### C BC, CMP, 2532-0, 3084-1, 80272-5 #### [facility] ([id number]) [address], [address] [place] [address] Neutrophils/100 WBC (Bld) 67.9 % Normal [facility] Comment on above: Performed By: #### Jeremiah JULES, CMP, 2532-0, 3084-1, 46307-0 #### [facility] ([id number]) [address], [address] [place] [address] Platelet mean volume (Bld) [Entitic vol] 6.4 fL Low 7-12 [facility] Comment on above: Performed By: #### Jeremiah JULES, CMP, 2532-0, 3084-1, 58932-3 #### [facility] ([id number]) [address], [address] [place] [address] Platelets (Bld) [#/Vol] 542 10*3/uL High 150-450 [facility] Comment on above: Performed By: #### Jeremiah JULES, CMP, 2532-0, 3084-1, 11365-0 #### [facility] ([id number]) [address], [address] [place] [address] RBC COUNT 3.17 X10E12/L Low 3.80-5.20 [facility] Comment on above: Performed By: #### Jeremiah BC, CMP, 2532-0, 3084-1, 11485-3 #### [facility] ([id number]) [address], [address] [place] [address] WBC (Bld) [#/Vol] 12.4 10*3/uL High 4.0-11.0 [facility] Comment on above: Performed By: #### C BC, CMP, 2532-0, 3084-1, 43112-3 #### [facility] ([id number]) [address], [address] [place] [address] COMPREHENSIVE METABOLIC PANE Ez 09-08-2023 Albumin [Mass/Vol] 3.3 g/dL Normal 3.2-5.3 [facility] Comment on above: Performed By: #### C BC, CMP, 2532-0, 3084-1, 50722-5 #### [facility] ([id number]) [address], [address] [place] [address] ALP [Catalytic activity/Vol] 94 U/L Normal 39-130 [facility] Comment on above: Performed By: #### C BC, CMP, 2532-0, 3084-1, 29338-0 #### [facility] ([id number]) [address], [address] [place] [address] ALT [Catalytic activity/Vol] 11 U/L Normal 0-31 [facility] Comment on above: Performed By: #### C BC, CMP, 2532-0, 3084-1, 97918-4 #### [facility] ([id number]) [address], [address] [place] [address] Anion gap [Moles/Vol] 10 mmol/L Normal 5-15 [facility] Comment on above: Performed By: #### C BC, CMP, 2532-0, 3084-1, 02939-3 #### [facility] ([id number]) [address], [address] [place] [address] AST [Catalytic activity/Vol] 10 U/L Normal 0-41 [facility] Comment on above: Performed By: #### C BC, CMP, 2532-0, 3084-1, 98052-5 #### [facility] ([id number]) [address], [address] [place] [address] Bilirubin [Mass/Vol] 0.2 mg/dL Low 0.3-1.2 [facility] Comment on above: Performed By: #### Jeremiah JULES, CMP, 2532-0, 3084-1, 41739-4 #### [facility] ([id number]) [address], [facility] [address] [place] [address] Calcium [Mass/Vol] 8.3 mg/dL Low 8.5-10.5 [facility] Comment on above: Performed By: #### Jeremiah JULES CMP, 2532-0, 3084-1, 15835-9 #### [facility] ([id number]) [address], [facility] [address] [place] [address] Chloride [Moles/Vol] 107 mmol/L Normal 98-109 [facility] Comment on above: Performed By: #### Jeremiah JULES CMP, 2532-0, 3084-1, 19271-9 #### [facility] ([id number]) [address] [address] [place] [address] CO2 [Moles/Vol] 25 mmol/L Normal 22-32 [facility] Comment on above: Performed By: #### Jeremiah JULES CMP, 2532-0, 3084-1, 02111-5 #### [facility] ([id number]) [address] [address] [place] [address] Creatinine [Mass/Vol] 0.88 mg/dL Normal 0.40-1.00 [facility] Comment on above: Result Comment: METH OD TRACEABLE TO IDMS STANDARD Performed By: #### Jeremiah JULES CMP, 2532-0, 3084-1, 19218-8 #### [facility] ([id number]) [address], [address] [place] [address] eGFR (CKD-EPI) NON-RACE DEPENDENT >90 Normal >59 [facility] Comment on above: Result Comment: Reported eGFR is based on the CKD-EPI 2020 equation that does not use a race coefficient. Performed By: #### C BC, CMP, 2532-0, 3084-1, 12693-5 #### [facility] ([id number]) [address], [address] [place] [address] Glucose [Mass/Vol] 93 mg/dL Normal 65-99 [facility] Comment on above: Performed By: #### Jeremiah BC, CMP, 2532-0, 3084-1, 35663-4 #### [facility] ([id number]) [address] [address] [place] [address] Potassium [Moles/Vol] 4.3 mmol/L Normal 3.5-5.0 [facility] Comment on above: Performed By: #### Jeremiah JULES, CMP, 2532-0, 3084-1, 72748-5 #### [facility] ([id number]) [address], [address] [place] [address] Protein [Mass/Vol] 6.2 g/dL Normal 6.0-8.0 [facility] Comment on above: Performed By: #### Jeremiah JULES, CMP, 2532-0, 3084-1, 17341-9 #### [facility] ([id number]) [address], [address] [place] [address] Sodium [Moles/Vol] 142 mmol/L Normal 134-146 [facility] Comment on above: Performed By: #### Jeremiah BC, CMP, 2532-0, 3084-1, 16064-2 #### [facility] ([id number]) [address] [address] [place] [address] Urea nitrogen [Mass/Vol] 16 mg/dL Normal 5-23 [facility] Comment on above: Performed By: #### Jeremiah BC, CMP, 2532-0, 3084-1, 83453-2 #### [facility] ([id number]) [address], [address] [place] [address] Natriuretic peptide B [Mass/ Vol]on 09-08-2023 Natriuretic peptide B (Bld) [Mass/Vol] 95 pg/mL Normal <100.0 [facility] Comment on above: Performed By: #### C BC, CMP, 2532-0, 3084-1, 86798-2 #### [facility] ([id number]) [address], [address] [place] [address] CBC AND AUTO DIFFon 09-06-19 ABSOLUTE BASOPHIL 0.1 X10E9/L Normal 0.0-0.2 [facility] Comment on above: Performed By: #### C BC, CMP, 2532-0, 3084-1, 44840-7 #### [facility] ([id number]) [address], [address] [place] [address] ABSOLUTE NEUTROPHIL 8.9 X10E9/L High 1.5-6.6 [facility] Comment on above: Performed By: #### C BC, CMP, 2532-0, 3084-1, 64080-6 #### [facility] ([id number]) [address], [address] [place] [address] Basophils/100 WBC (Bld) 0.5 % Normal [facility] Comment on above: Performed By: #### C BC, CMP, 2532-0, 3084-1, 64374-3 #### [facility] ([id number]) [address], [address] [place] [address] Eosinophils (Bld) [#/Vol] 0.2 10*3/uL Normal 0.0-0.4 [facility] Comment on above: Performed By: #### C BC, CMP, 2532-0, 3084-1, 20961-4 #### [facility] ([id number]) [address], [address] [place] [address] Eosinophils/100 WBC (Bld) 1.6 % Normal [facility] Comment on above: Performed By: #### C BC, CMP, 2532-0, 3084-1, 17601-7 #### [facility] ([id number]) [address], [facility] [address] [place] [address] Erythrocyte distribution width (RBC) [Ratio] 15.0 % Normal 11.5-15.0 [facility] Comment on above: Performed By: #### C BC, CMP, 2532-0, 4-1, 18892-7 #### [facility] ([id number]) [address], [facility] [address] [place] [address] Hematocrit (Bld) [Volume fraction] 30.4 % Low 35-47 [facility] Comment on above: Performed By: #### C BC, CMP, 2532-0, 4-1, 40047-9 #### [facility] ([id number]) [address], [facility] [address] [place] [address] Hemoglobin (Bld) [Mass/Vol] 9.8 g/dL Low 11.7-15.5 [facility] Comment on above: Performed By: #### C BC, CMP, 2532-0, 4-1, 69676-1 #### [facility] ([id number]) [address], [facility] [address] [place] [address] Lymphocytes (Bld) [#/Vol] 4.4 10*3/uL High 1.0-3.5 [facility] Comment on above: Performed By: #### C BC, CMP, 2532-0, 4-1, 30176-7 #### [facility] ([id number]) [address], [facility] [address] [place] [address] Lymphocytes/100 WBC (Bld) 29.9 % Normal [facility] Comment on above: Performed By: #### C BC, CMP, 2532-0, 4-1, 79211-9 #### [facility] ([id number]) [address], [address] [place] [address] MCH (RBC) [Entitic mass] 26.6 pg Low 27-34 [facility] Comment on above: Performed By: #### C BC, CMP, 2532-0, 4-1, 19045-9 #### [facility] ([id number]) [address], [address] [place] [address] MCHC (RBC) [Mass/Vol] 32.3 g/dL Normal 32-36 [facility] Comment on above: Performed By: #### Jeremiah BC, CMP, 2532-0, 4-1, 16857-1 #### [facility] ([id number]) [address], [address] [place] [address] MCV (RBC) [Entitic vol] 82 fL Normal 80-100 [facility] Comment on above: Performed By: #### Jeremiah BC, CMP, 2532-0, 4-1, 51075-5 #### [facility] ([id number]) [address], [address] [place] [address] Monocytes (Bld) [#/Vol] 1.0 10*3/uL High 0-0.9 [facility] Comment on above: Performed By: #### Jeremiah BC, CMP, 2532-0, 4-1, 18412-1 #### [facility] ([id number]) [address], [address] [place] [address] Monocytes/100 WBC (Bld) 6.7 % Normal [facility] Comment on above: Performed By: #### C BC, CMP, 2532-0, 4-1, 15544-0 #### [facility] ([id number]) [address], [address] [place] [address] Neutrophils/100 WBC (Bld) 61.3 % Normal [facility] Comment on above: Performed By: #### C BC, CMP, 2532-0, 3084-1, 90656-6 #### [facility] ([id number]) [address], [address] [place] [address] Platelet mean volume (Bld) [Entitic vol] 7.1 fL Normal 7-12 [facility] Comment on above: Performed By: #### C BC, CMP, 2532-0, 3084-1, 85384-3 #### [facility] ([id number]) [address], [address] [place] [address] Platelets (Bld) [#/Vol] 663 10*3/uL High 150-450 [facility] Comment on above: Performed By: #### Jeremiah BC, CMP, 2532-0, 3084-1, 57918-5 #### [facility] ([id number]) [address], [address] [place] [address] RBC COUNT 3.69 X10E12/L Low 3.80-5.20 [facility] Comment on above: Performed By: #### Jeremiah BC, CMP, 2532-0, 3084-1, 86981-5 #### [facility] ([id number]) [address], [address] [place] [address] WBC (Bld) [#/Vol] 14.6 10*3/uL High 4.0-11.0 [facility] Comment on above: Performed By: #### C BC, CMP, 2532-0, 3084-1, 71093-5 #### [facility] ([id number]) [address], [address] [place] [address] COMPREHENSIVE METABOLIC PANE Ez 09-06-2023 Albumin [Mass/Vol] 3.5 g/dL Normal 3.2-5.3 [facility] Comment on above: Performed By: #### Jeremiah BC, CMP, 2532-0, 3084-1, 21648-0 #### [facility] ([id number]) [address], [address] [place] [address] ALP [Catalytic activity/Vol] 110 U/L Normal 39-130 [facility] Comment on above: Performed By: #### C BC, CMP, 2532-0, 3084-1, 45390-8 #### [facility] ([id number]) [address], [address] [place] [address] ALT [Catalytic activity/Vol] 12 U/L Normal 0-31 [facility] Comment on above: Performed By: #### C BC, CMP, 2532-0, 3084-1, 77789-3 #### [facility] ([id number]) [address], [address] [place] [address] Anion gap [Moles/Vol] 9 mmol/L Normal 5-15 [facility] Comment on above: Performed By: #### C BC, CMP, 2532-0, 3084-1, 87087-2 #### [facility] ([id number]) [address], [address] [place] [address] AST [Catalytic activity/Vol] 11 U/L Normal 0-41 [facility] Comment on above: Performed By: #### C BC, CMP, 2532-0, 3084-1, 35005-9 #### [facility] ([id number]) [address], [address] [place] [address] Bilirubin [Mass/Vol] 0.3 mg/dL Normal 0.3-1.2 [facility] Comment on above: Performed By: #### C BC, CMP, 2532-0, 3084-1, 73440-2 #### [facility] ([id number]) [address], [address] [place] [address] Calcium [Mass/Vol] 9.2 mg/dL Normal 8.5-10.5 [facility] Comment on above: Performed By: #### C DHARA, CMP, 2532-0, 3084-1, 10476-7 #### [facility] ([id number]) [address], [address] [place] [address] Chloride [Moles/Vol] 100 mmol/L Normal 98-109 [facility] Comment on above: Performed By: #### Jeremiah JULES, CMP, 2532-0, 3084-1, 93156-3 #### [facility] ([id number]) [address], [address] [place] [address] CO2 [Moles/Vol] 28 mmol/L Normal 22-32 [facility] Comment on above: Performed By: #### Jeremiah JULES, CMP, 2532-0, 3084-1, 65127-7 #### [facility] ([id number]) [address], [address] [place] [address] Creatinine [Mass/Vol] 0.81 mg/dL Normal 0.40-1.00 [facility] Comment on above: Result Comment: METH OD TRACEABLE TO IDMS STANDARD Performed By: #### Jeremiah JULES CMP, 2532-0, 3084-1, 79952-7 #### [facility] ([id number]) [address], [address] [place] [address] eGFR (CKD-EPI) NON-RACE DEPENDENT >90 Normal >59 [facility] Comment on above: Result Comment: Reported eGFR is based on the CKD-EPI 2020 equation that does not use a race coefficient. Performed By: #### Jeremiah JULES, CMP, 2532-0, 3084-1, 97127-5 #### [facility] ([id number]) [address], [address] [place] [address] Glucose [Mass/Vol] 92 mg/dL Normal 65-99 [facility] Comment on above: Performed By: #### Jeremiah JULES, CMP, 2532-0, 3084-1, 68999-2 #### [facility] ([id number]) [address], [address] [place] [address] Potassium [Moles/Vol] 3.7 mmol/L Normal 3.5-5.0 [facility] Comment on above: Performed By: #### C BC, CMP, 2532-0, 3084-1, 76104-1 #### [facility] ([id number]) [address], [address] [place] [address] Protein [Mass/Vol] 6.8 g/dL Normal 6.0-8.0 [facility] Comment on above: Performed By: #### C BC, CMP, 2532-0, 3084-1, 67660-4 #### [facility] ([id number]) [address], [address] [place] [address] Sodium [Moles/Vol] 137 mmol/L Normal 134-146 [facility] Comment on above: Performed By: #### Jeremiah BC, CMP, 2532-0, 3084-1, 85754-7 #### [facility] ([id number]) [address] [address] [place] [address] Urea nitrogen [Mass/Vol] 17 mg/dL Normal 5-23 [facility] Comment on above: Performed By: #### Jeremiah BC, CMP, 2532-0, 3084-1, 41571-6 #### [facility] ([id number]) [address], [address] [place] [address] COMPLETE BLOOD COUNTon 09-04 Erythrocyte distribution width (RBC) [Ratio] 14.8 % Normal 11.5-15.0 [facility] Comment on above: Performed By: #### C BC, CMP, 2532-0, 3084-1, 28250-7 #### [facility] ([id number]) [address] [address] [place] [address] Hematocrit (Bld) [Volume fraction] 25.3 % Low 35-47 [facility] Comment on above: Performed By: #### C BC, CMP, 2532-0, 4-1, 49638-7 #### [facility] ([id number]) [address], [facility] [address] [place] [address] Hemoglobin (Bld) [Mass/Vol] 8.2 g/dL Low 11.7-15.5 [facility] Comment on above: Performed By: #### C BC, CMP, 2532-0, 4-1, 03669-4 #### [facility] ([id number]) [address], [facility] [address] [place] [address] MCH (RBC) [Entitic mass] 26.4 pg Low 27-34 [facility] Comment on above: Performed By: #### Jeremiah BC, CMP, 2532-0, 4-1, 54454-2 #### [facility] ([id number]) [address], [facility] [address] [place] [address] MCHC (RBC) [Mass/Vol] 32.6 g/dL Normal 32-36 [facility] Comment on above: Performed By: #### C BC, CMP, 2532-0, 3083-1, 95988-9 #### [facility] ([id number]) [address], [address] [address] MCV (RBC) [Entitic vol] 81 fL Normal 80-100 [facility] Comment on above: Performed By: #### C BC, CMP, 2532-0, 4-1, 31764-1 #### [facility] ([id number]) [address] [address] [place] [address] Platelet mean volume (Bld) [Entitic vol] 7.0 fL Normal 7-12 [facility] Comment on above: Performed By: #### C BC, CMP, 2532-0, 4-1, 06887-5 #### [facility] ([id number]) [address], [address] [place] [address] Platelets (Bld) [#/Vol] 411 10*3/uL Normal 150-450 [facility] Comment on above: Performed By: #### C BC, CMP, 2532-0, 3084-1, 24390-0 #### [facility] ([id number]) [address], [address] [place] [address] RBC COUNT 3.12 X10E12/L Low 3.80-5.20 [facility] Comment on above: Performed By: #### C BC, CMP, 2532-0, 3084-1, 89654-7 #### [facility] ([id number]) [address], [address] [place] [address] WBC (Bld) [#/Vol] 11.5 10*3/uL High 4.0-11.0 [facility] Comment on above: Performed By: #### C BC, CMP, 2532-0, 3084-1, 67021-6 #### [facility] ([id number]) [address], [address] [place] [address] COMPREHENSIVE METABOLIC PANE Ez 09-04-2023 Albumin [Mass/Vol] 3.1 g/dL Low 3.2-5.3 [facility] Comment on above: Performed By: #### C BC, CMP, 2532-0, 3084-1, 05074-6 #### [facility] ([id number]) [address], [address] [place] [address] ALP [Catalytic activity/Vol] 85 U/L Normal 39-130 [facility] Comment on above: Performed By: #### C BC, CMP, 2532-0, 3084-1, 53615-8 #### [facility] ([id number]) [address], [address] [place] [address] ALT [Catalytic activity/Vol] 11 U/L Normal 0-31 [facility] Comment on above: Performed By: #### C BC, CMP, 2532-0, 3084-1, 57646-7 #### [facility] ([id number]) [address], [address] [place] [address] Anion gap [Moles/Vol] 11 mmol/L Normal 5-15 [facility] Comment on above: Performed By: #### C BC, CMP, 2532-0, 3084-1, 75000-4 #### [facility] ([id number]) [address], [address] [place] [address] AST [Catalytic activity/Vol] 12 U/L Normal 0-41 [facility] Comment on above: Performed By: #### C BC, CMP, 2532-0, 3084-1, 12451-9 #### [facility] ([id number]) [address], [address] [place] [address] Bilirubin [Mass/Vol] 0.2 mg/dL Low 0.3-1.2 [facility] Comment on above: Performed By: #### Jeremiah BC, CMP, 2532-0, 3084-1, 90572-6 #### [facility] ([id number]) [address], [address] [place] [address] Calcium [Mass/Vol] 8.7 mg/dL Normal 8.5-10.5 [facility] Comment on above: Performed By: #### C BC, CMP, 2532-0, 3084-1, 41561-3 #### [facility] ([id number]) [address], [address] [place] [address] Chloride [Moles/Vol] 102 mmol/L Normal 98-109 [facility] Comment on above: Performed By: #### C BC, CMP, 2532-0, 3084-1, 14873-7 #### [facility] ([id number]) [address], [address] [place] [address] CO2 [Moles/Vol] 25 mmol/L Normal 22-32 [facility] Comment on above: Performed By: #### Jeremiah JULES CMP, 2532-0, 3084-1, 56704-1 #### [facility] ([id number]) [address], [address] [place] [address] Creatinine [Mass/Vol] 0.70 mg/dL Normal 0.40-1.00 [facility] Comment on above: Result Comment: METH OD TRACEABLE TO IDMS STANDARD Performed By: #### Jeremiah JULES CMP, 2532-0, 3084-1, 01214-4 #### [facility] ([id number]) [address] [address] [place] [address] eGFR (CKD-EPI) NON-RACE DEPENDENT >90 Normal >59 [facility] Comment on above: Result Comment: Reported eGFR is based on the CKD-EPI 2020 equation that does not use a race coefficient. Performed By: #### Jeremiah JULES CMP, 2532-0, 3084-1, 43851-8 #### [facility] ([id number]) [address] [address] [address] [place] [address] Glucose [Mass/Vol] 100 mg/dL High 65-99 [facility] Comment on above: Performed By: #### Jeremiah JULES CMP, 2532-0, 3084-1, 34591-4 #### [facility] ([id number]) [address] [address] [place] [address] Potassium [Moles/Vol] 4.1 mmol/L Normal 3.5-5.0 [facility] Comment on above: Performed By: #### Jeremiah JULES CMP, 2532-0, 3084-1, 53034-9 #### [facility] ([id number]) [address], [address] [place] [address] Protein [Mass/Vol] 5.8 g/dL Low 6.0-8.0 [facility] Comment on above: Performed By: #### C BC, CMP, 2532-0, 3084-1, 43364-3 #### [facility] ([id number]) [address], [address] [place] [address] Sodium [Moles/Vol] 138 mmol/L Normal 134-146 [facility] Comment on above: Performed By: #### C BC, CMP, 2532-0, 3084-1, 31038-7 #### [facility] ([id number]) [address], [address] [place] [address] Urea nitrogen [Mass/Vol] 17 mg/dL Normal 5-23 [facility] Comment on above: Performed By: #### C BC, CMP, 2532-0, 3084-1, 23695-4 #### [facility] ([id number]) [address], [address] [place] [address] COMPLETE BLOOD COUNTon 09-03 Erythrocyte distribution width (RBC) [Ratio] 14.8 % Normal 11.5-15.0 [facility] Comment on above: Performed By: #### C PUBLIC RELATIONS WRITER #### [facility] ([id number]) [address] [place] [address] Hematocrit (Bld) [Volume fraction] 24.9 % Low 35-47 [facility] Comment on above: Performed By: #### C PUBLIC RELATIONS WRITER #### [facility] ([id number]) [address] [place] [address] Hemoglobin (Bld) [Mass/Vol] 8.0 g/dL Low 11.7-15.5 [facility] Comment on above: Performed By: #### C PUBLIC RELATIONS WRITER #### [facility] ([id number]) [address] [place] [address] MCH (RBC) [Entitic mass] 26.4 pg Low 27-34 [facility] Comment on above: Performed By: #### C PUBLIC RELATIONS WRITER #### [facility] ([id number]) [address] [place] [address] MCHC (RBC) [Mass/Vol] 32.3 g/dL Normal 32-36 [facility] Comment on above: Performed By: #### C PUBLIC RELATIONS WRITER #### [facility] ([id number]) [address] [place] [address] MCV (RBC) [Entitic vol] 82 fL Normal 80-100 [facility] Comment on above: Performed By: #### C PUBLIC RELATIONS WRITER #### [facility] ([id number]) [address] [place] [address] Platelet mean volume (Bld) [Entitic vol] 7.1 fL Normal 7-12 [facility] Comment on above: Performed By: #### C PUBLIC RELATIONS WRITER #### [facility] ([id number]) [address] [place] [address] Platelets (Bld) [#/Vol] 389 10*3/uL Normal 150-450 [facility] [facility] Comment on above: Performed By: #### C PUBLIC RELATIONS WRITER #### [facility] ([id number]) [address] [place] [address] RBC COUNT 3.05 X10E12/L Low 3.80-5.20 [facility] Comment on above: Performed By: #### C PUBLIC RELATIONS WRITER #### [facility] ([id number]) [address] [place] [address] WBC (Bld) [#/Vol] 13.0 10*3/uL High 4.0-11.0 [facility] Comment on above: Performed By: #### C PUBLIC RELATIONS WRITER #### [facility] ([id number]) [address] [place] [address] COMPREHENSIVE METABOLIC PANE Ez 09-03-2023 Albumin [Mass/Vol] 3.0 g/dL Low 3.2-5.3 [facility] Comment on above: Performed By: #### C PUBLIC RELATIONS WRITER #### [facility] ([id number]) [address] [facility] [place] [address] ALP [Catalytic activity/Vol] 79 U/L Normal 39-130 [facility] Comment on above: Performed By: #### C PUBLIC RELATIONS WRITER #### [facility] ([id number]) [address] [facility] [place] [address] ALT [Catalytic activity/Vol] 7 U/L Normal 0-31 [facility] Comment on above: Performed By: #### C PUBLIC RELATIONS WRITER #### [facility] ([id number]) [address] [facility] [place] [address] Anion gap [Moles/Vol] 7 mmol/L Normal 5-15 [facility] Comment on above: Performed By: #### C PUBLIC RELATIONS WRITER #### [facility] ([id number]) [address] [facility] [place] [address] AST [Catalytic activity/Vol] 10 U/L Normal 0-41 [facility] Comment on above: Performed By: #### C PUBLIC RELATIONS WRITER #### [facility] ([id number]) [address] [facility] [place] [address] Bilirubin [Mass/Vol] 0.2 mg/dL Low 0.3-1.2 [facility] Comment on above: Performed By: #### C PUBLIC RELATIONS WRITER #### [facility] ([id number]) [address] [facility] [place] [address] Calcium [Mass/Vol] 8.3 mg/dL Low 8.5-10.5 [facility] Comment on above: Performed By: #### C PUBLIC RELATIONS WRITER #### [facility] ([id number]) [address] [facility] [place] [address] Chloride [Moles/Vol] 105 mmol/L Normal 98-109 [facility] Comment on above: Performed By: #### C PUBLIC RELATIONS WRITER #### [facility] ([id number]) [address] [place] [address] CO2 [Moles/Vol] 24 mmol/L Normal 22-32 [facility] Comment on above: Performed By: #### C PUBLIC RELATIONS WRITER #### [facility] ([id number]) [address] [place] [address] Creatinine [Mass/Vol] 0.54 mg/dL Normal 0.40-1.00 [facility] Comment on above: Result Comment: METH OD TRACEABLE TO IDMS STANDARD Performed By: #### C PUBLIC RELATIONS WRITER #### [facility] ([id number]) [address] [place] [address] eGFR (CKD-EPI) NON-RACE DEPENDENT >90 Normal >59 [facility] Comment on above: Result Comment: Reported eGFR is based on the CKD-EPI 2020 equation that does not use a race coefficient. Performed By: #### C PUBLIC RELATIONS WRITER #### [facility] ([id number]) [address] [place] [address] Glucose [Mass/Vol] 99 mg/dL Normal 65-99 [facility] Comment on above: Performed By: #### C PUBLIC RELATIONS WRITER #### [facility] ([id number]) [address] [place] [address] Potassium [Moles/Vol] 4.3 mmol/L Normal 3.5-5.0 [facility] Comment on above: Performed By: #### C PUBLIC RELATIONS WRITER #### [facility] ([id number]) [address] [place] [address] Protein [Mass/Vol] 5.7 g/dL Low 6.0-8.0 [facility] Comment on above: Performed By: #### C PUBLIC RELATIONS WRITER #### [facility] ([id number]) [address] [place] [address] Sodium [Moles/Vol] 136 mmol/L Normal 134-146 [facility] Comment on above: Performed By: #### C PUBLIC RELATIONS WRITER #### [facility] ([id number]) [address] [place] [address] Urea nitrogen [Mass/Vol] 12 mg/dL Normal 5-23 [facility] Comment on above: Performed By: #### C PUBLIC RELATIONS WRITER #### [facility] ([id number]) [address] [place] [address] COMPLETE BLOOD COUNTon 09-02 Erythrocyte distribution width (RBC) [Ratio] 14.7 % Normal 11.5-15.0 [facility] Comment on above: Performed By: #### C PUBLIC RELATIONS WRITER #### [facility] ([id number]) [address] [place] [address] Hematocrit (Bld) [Volume fraction] 23.8 % Low 35-47 [facility] Comment on above: Performed By: #### C PUBLIC RELATIONS WRITER #### [facility] ([id number]) [address] [place] [address] Hemoglobin (Bld) [Mass/Vol] 7.7 g/dL Low 11.7-15.5 [facility] Comment on above: Performed By: #### C PUBLIC RELATIONS WRITER #### [facility] ([id number]) [address] [place] [address] MCH (RBC) [Entitic mass] 26.0 pg Low 27-34 [facility] Comment on above: Performed By: #### C PUBLIC RELATIONS WRITER #### [facility] ([id number]) [address] [place] [address] MCHC (RBC) [Mass/Vol] 32.3 g/dL Normal 32-36 [facility] Comment on above: Performed By: #### C PUBLIC RELATIONS WRITER #### [facility] ([id number]) [address] [place] [address] MCV (RBC) [Entitic vol] 81 fL Normal 80-100 [facility] Comment on above: Performed By: #### C PUBLIC RELATIONS WRITER #### [facility] ([id number]) [address] [place] [address] Platelet mean volume (Bld) [Entitic vol] 7.2 fL Normal 7-12 [facility] Comment on above: Performed By: #### C PUBLIC RELATIONS WRITER #### [facility] ([id number]) [address] [place] [address] Platelets (Bld) [#/Vol] 380 10*3/uL Normal 150-450 [facility] Comment on above: Performed By: #### C PUBLIC RELATIONS WRITER #### [facility] ([id number]) [address] [place] [address] RBC COUNT 2.96 X10E12/L Low 3.80-5.20 [facility] Comment on above: Performed By: #### C PUBLIC RELATIONS WRITER #### [facility] ([id number]) [address] [place] [address] WBC (Bld) [#/Vol] 12.4 10*3/uL High 4.0-11.0 [facility] Comment on above: Performed By: #### C PUBLIC RELATIONS WRITER #### [facility] ([id number]) [address] [place] [address] COMPREHENSIVE METABOLIC PANE Ez 09-02-2023 Albumin [Mass/Vol] 2.8 g/dL Low 3.2-5.3 [facility] Comment on above: Performed By: #### C PUBLIC RELATIONS WRITER #### [facility] ([id number]) [address] [place] [address] ALP [Catalytic activity/Vol] 81 U/L Normal 39-130 [facility] Comment on above: Performed By: #### C PUBLIC RELATIONS WRITER #### [facility] ([id number]) [address] [facility] [place] [address] ALT [Catalytic activity/Vol] 8 U/L Normal 0-31 [facility] Comment on above: Performed By: #### C PUBLIC RELATIONS WRITER #### [facility] ([id number]) [address] [facility] [place] [address] Anion gap [Moles/Vol] 6 mmol/L Normal 5-15 [facility] Comment on above: Performed By: #### C PUBLIC RELATIONS WRITER #### [facility] ([id number]) [address] [facility] [place] [address] AST [Catalytic activity/Vol] 17 U/L Normal 0-41 [facility] Comment on above: Performed By: #### C PUBLIC RELATIONS WRITER #### [facility] ([id number]) [address] [facility] [place] [address] Bilirubin [Mass/Vol] 0.2 mg/dL Low 0.3-1.2 [facility] Comment on above: Performed By: #### C PUBLIC RELATIONS WRITER #### [facility] ([id number]) [address] [facility] [place] [address] Calcium [Mass/Vol] 7.3 mg/dL Low 8.5-10.5 [facility] Comment on above: Performed By: #### C PUBLIC RELATIONS WRITER #### [facility] ([id number]) [address] [facility] [place] [address] Chloride [Moles/Vol] 105 mmol/L Normal 98-109 [facility] Comment on above: Performed By: #### C PUBLIC RELATIONS WRITER #### [facility] ([id number]) [address] [facility] [place] [address] CO2 [Moles/Vol] 25 mmol/L Normal 22-32 [facility] Comment on above: Performed By: #### C PUBLIC RELATIONS WRITER #### [facility] ([id number]) [address] [facility] [place] [address] Creatinine [Mass/Vol] 0.67 mg/dL Normal 0.40-1.00 [facility] Comment on above: Result Comment: METH OD TRACEABLE TO IDMS STANDARD Performed By: #### C PUBLIC RELATIONS WRITER #### [facility] ([id number]) [address] [place] [address] eGFR (CKD-EPI) NON-RACE DEPENDENT >90 Normal >59 [facility] Comment on above: Result Comment: Reported eGFR is based on the CKD-EPI 2020 equation that does not use a race coefficient. Performed By: #### C PUBLIC RELATIONS WRITER #### [facility] ([id number]) [address] [place] [address] Glucose [Mass/Vol] 88 mg/dL Normal 65-99 [facility] Comment on above: Performed By: #### C PUBLIC RELATIONS WRITER #### [facility] ([id number]) [address] [place] [address] Potassium [Moles/Vol] 4.7 mmol/L Normal 3.5-5.0 [facility] Comment on above: Performed By: #### C PUBLIC RELATIONS WRITER #### [facility] ([id number]) [address] [place] [address] Protein [Mass/Vol] 5.4 g/dL Low 6.0-8.0 [facility] Comment on above: Performed By: #### C PUBLIC RELATIONS WRITER #### [facility] ([id number]) [address] [place] [address] Sodium [Moles/Vol] 136 mmol/L Normal 134-146 [facility] Comment on above: Performed By: #### C PUBLIC RELATIONS WRITER #### [facility] ([id number]) [address] [place] [address] Urea nitrogen [Mass/Vol] 14 mg/dL Normal 5-23 [facility] Comment on above: Performed By: #### C PUBLIC RELATIONS WRITER #### [facility] ([id number]) [address] [place] [address] ANTI CARDIOLIPIN AB IGG IGA IGMon 09-01-2023 TAMIKO IgA <2.0 Normal 0-19.9 [facility] Comment on above: Performed By: #### C PUBLIC RELATIONS WRITER #### [facility] ([id number]) [address] [place] [address] TAMIKO IgG <1.6 Normal 0-19.9 [facility] Comment on above: Performed By: #### C PUBLIC RELATIONS WRITER #### [facility] ([id number]) [address] [place] [address] TAMIKO IgM <1.5 Normal 0-19.9 [facility] Comment on above: Performed By: #### C PUBLIC RELATIONS WRITER #### [facility] ([id number]) [address] [place] [address] BETA-2 GP1 AB PANELon 2023 BETA-2 GP1 IgA <2.0 Normal 0.0-19.9 [facility] Comment on above: Performed By: #### C PUBLIC RELATIONS WRITER #### [facility] ([id number]) [address] [place] [address] BETA-2 GP1 IgG <1.4 Normal 0.0-19.9 [facility] Comment on above: Performed By: #### C PUBLIC RELATIONS WRITER #### [facility] ([id number]) [address] [place] [address] BETA-2 GP1 IgM <1.5 Normal 0.0-19.9 [facility] Comment on above: Performed By: #### C PUBLIC RELATIONS WRITER #### [facility] ([id number]) [address] [place] [address] COMPLETE BLOOD COUNTon 09-01 Erythrocyte distribution width (RBC) [Ratio] 14.5 % Normal 11.5-15.0 [facility] Comment on above: Performed By: #### C BC, CMP #### [facility] ([id number]) [address], [address] [place] [address] Hematocrit (Bld) [Volume fraction] 26.8 % Low 35-47 [facility] Comment on above: Performed By: #### C DHARA, CMP #### [facility] ([id number]) [address] [place] [address] Hemoglobin (Bld) [Mass/Vol] 8.7 g/dL Low 11.7-15.5 [facility] Comment on above: Performed By: #### C DHARA, CMP #### [facility] ([id number]) [address], [address] [place] [address] MCH (RBC) [Entitic mass] 26.0 pg Low 27-34 [facility] Comment on above: Performed By: #### C DHARA, CMP #### [facility] ([id number]) [address], [address] [place] [address] MCHC (RBC) [Mass/Vol] 32.5 g/dL Normal 32-36 [facility] Comment on above: Performed By: #### C DHARA, CMP #### [facility] ([id number]) [address], [address] [place] [address] MCV (RBC) [Entitic vol] 80 fL Normal 80-100 [facility] Comment on above: Performed By: #### C DHARA, CMP #### [facility] ([id number]) [address], [address] [place] [address] Platelet mean volume (Bld) [Entitic vol] 7.6 fL Normal 7-12 [facility] Comment on above: Performed By: #### C DHARA, CMP #### [facility] ([id number]) [address], [address] [place] [address] Platelets (Bld) [#/Vol] 412 10*3/uL Normal 150-450 [facility] Comment on above: Performed By: #### C BC, CMP #### [facility] ([id number]) [address], [address] [place] [address] RBC COUNT 3.35 X10E12/L Low 3.80-5.20 [facility] Comment on above: Performed By: #### C BC, CMP #### [facility] ([id number]) [address], [address] [place] [address] WBC (Bld) [#/Vol] 16.7 10*3/uL High 4.0-11.0 [facility] Comment on above: Performed By: #### C BC, CMP #### [facility] ([id number]) [address], [address] [place] [address] COMPREHENSIVE METABOLIC PANE Ez 09-01-2023 Albumin [Mass/Vol] 3.0 g/dL Low 3.2-5.3 [facility] Comment on above: Performed By: #### C PUBLIC RELATIONS WRITER #### [facility] ([id number]) [address] [place] [address] ALP [Catalytic activity/Vol] 91 U/L Normal 39-130 [facility] Comment on above: Performed By: #### C PUBLIC RELATIONS WRITER #### [facility] ([id number]) [address] [place] [address] ALT [Catalytic activity/Vol] 8 U/L Normal 0-31 [facility] Comment on above: Performed By: #### C PUBLIC RELATIONS WRITER #### [facility] ([id number]) [address] [place] [address] Anion gap [Moles/Vol] 9 mmol/L Normal 5-15 [facility] Comment on above: Performed By: #### C PUBLIC RELATIONS WRITER #### [facility] ([id number]) [address] [place] [address] AST [Catalytic activity/Vol] 13 U/L Normal 0-41 [facility] Comment on above: Performed By: #### C PUBLIC RELATIONS WRITER #### [facility] ([id number]) [address] [place] [address] Bilirubin [Mass/Vol] 0.2 mg/dL Low 0.3-1.2 [facility] Comment on above: Performed By: #### C PUBLIC RELATIONS WRITER #### [facility] ([id number]) [address] [place] [address] Calcium [Mass/Vol] 7.0 mg/dL Low 8.5-10.5 [facility] Comment on above: Performed By: #### C PUBLIC RELATIONS WRITER #### [facility] ([id number]) [address] [place] [address] Chloride [Moles/Vol] 100 mmol/L Normal 98-109 [facility] Comment on above: Performed By: #### C PUBLIC RELATIONS WRITER #### [facility] ([id number]) [address] [place] [address] CO2 [Moles/Vol] 23 mmol/L Normal 22-32 [facility] Comment on above: Performed By: #### C PUBLIC RELATIONS WRITER #### [facility] ([id number]) [address] [place] [address] Creatinine [Mass/Vol] 0.64 mg/dL Normal 0.40-1.00 [facility] Comment on above: Result Comment: METH OD TRACEABLE TO IDMS STANDARD Performed By: #### C PUBLIC RELATIONS WRITER #### [facility] ([id number]) [address] [place] [address] eGFR (CKD-EPI) NON-RACE DEPENDENT >90 Normal >59 [facility] Comment on above: Result Comment: Reported eGFR is based on the CKD-EPI 2020 equation that does not use a race coefficient. Performed By: #### C PUBLIC RELATIONS WRITER #### [facility] ([id number]) [address] [place] [address] Glucose [Mass/Vol] 116 mg/dL High 65-99 [facility] Comment on above: Performed By: #### C PUBLIC RELATIONS WRITER #### [facility] ([id number]) [address] [place] [address] Potassium [Moles/Vol] 4.2 mmol/L Normal 3.5-5.0 [facility] Comment on above: Performed By: #### C PUBLIC RELATIONS WRITER #### [facility] ([id number]) [address] [place] [address] Protein [Mass/Vol] 5.6 g/dL Low 6.0-8.0 [facility] Comment on above: Performed By: #### C PUBLIC RELATIONS WRITER #### [facility] ([id number]) [address] [place] [address] Sodium [Moles/Vol] 132 mmol/L Low 134-146 [facility] Comment on above: Performed By: #### C PUBLIC RELATIONS WRITER #### [facility] ([id number]) [address] [place] [address] Urea nitrogen [Mass/Vol] 9 mg/dL Normal 5-23 [facility] Comment on above: Performed By: #### C PUBLIC RELATIONS WRITER #### [facility] ([id number]) [address] [place] [address] MR BRAIN W WO CONTon 024 MR [...] Mckeon MD on 09/01/2023 1:54 PM Normal [facility] MR MRA AND MRV HEAD W WO CON Ton 09-01-2023 MR MRA AND MRV HEAD W WO CONT MR MRA AND MRV HEAD W WO CONT MR MRA AND MRV HEAD W WO CONT CLINICAL INDICATION:eclamptic seizure. Neurologic abnormality COMPARISON: XX TECHNIQUE: Routine noncontrast, dldy-te-vpsuzc, [place] MRA was performed. Maximum intensity projection volumetric reformatted images were generated. Routine noncontrast, yppj-eu-vtceoy, MR venogram was performed. Maximum intensity projection [...] stenosis or acute occlusion of the major [place] arterial structures. 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 MRV: No dural venous sinus thrombosis. Finalized by Yovany Mckeon MD on 09/01/2023 1:46 PM Normal [facility] dRVVT/dRVVT.excess phospholi pid Coag (PPP) [Ratio]on 09-01-2023 DILUTE YOSEF'S VIPER VENOM Negative Normal [facility] Comment on above: Performed By: #### C PUBLIC RELATIONS WRITER #### [facility] ([id number]) [address] [place] [place] [address] COMPLETE BLOOD COUNTon 08-31 Erythrocyte distribution width (RBC) [Ratio] 14.8 % Normal 11.5-15.0 [facility] Comment on above: Performed By: #### C BC, CMP, 2532-0, 3084-1, 50120-7 #### [facility] ([id number]) [address], [address] [place] [address] Hematocrit (Bld) [Volume fraction] 28.3 % Low 35-47 [facility] Comment on above: Performed By: #### C BC, CMP, 2532-0, 4-1, 91769-8 #### [facility] ([id number]) [address], [facility] [address] [place] [address] Hemoglobin (Bld) [Mass/Vol] 9.7 g/dL Low 11.7-15.5 [facility] Comment on above: Performed By: #### C BC, CMP, 2532-0, 4-1, 98244-6 #### [facility] ([id number]) [address], [address] [place] [address] MCH (RBC) [Entitic mass] 27.1 pg Normal 27-34 [facility] Comment on above: Performed By: #### C BC, CMP, 2532-0, 4-1, 70616-0 #### [facility] ([id number]) [address], [address] [place] [address] MCHC (RBC) [Mass/Vol] 34.2 g/dL Normal 32-36 [facility] Comment on above: Performed By: #### C BC, CMP, 2532-0, 3084-1, 29889-7 #### [facility] ([id number]) [address], [facility] [address] [place] [address] MCV (RBC) [Entitic vol] 79 fL Low 80-100 [facility] Comment on above: Performed By: #### C BC, CMP, 2532-0, 4-1, 12001-5 #### [facility] ([id number]) [address], [address] [place] [address] Platelet mean volume (Bld) [Entitic vol] 7.3 fL Normal 7-12 [facility] Comment on above: Performed By: #### C BC, CMP, 2532-0, 3084-1, 97994-2 #### [facility] ([id number]) [address], [address] [place] [address] Platelets (Bld) [#/Vol] 374 10*3/uL Normal 150-450 [facility] Comment on above: Performed By: #### Jeremiah BC, CMP, 2532-0, 3084-1, 87506-6 #### [facility] ([id number]) [address], [address] [place] [address] RBC COUNT 3.58 X10E12/L Low 3.80-5.20 [facility] Comment on above: Performed By: #### C BC, CMP, 2532-0, 3084-1, 23631-5 #### [facility] ([id number]) [address] [place] [address] WBC (Bld) [#/Vol] 16.2 10*3/uL High 4.0-11.0 [facility] Comment on above: Performed By: #### C BC, CMP, 2532-0, 3084-1, 67927-7 #### [facility] ([id number]) [address], [address] [place] [address] COMPREHENSIVE METABOLIC PANE Ez 08-31-2023 Albumin [Mass/Vol] 3.1 g/dL Low 3.2-5.3 [facility] Comment on above: Performed By: #### C BC, CMP, 2532-0, 3084-1, 31731-5 #### [facility] ([id number]) [address], [address] [place] [address] ALP [Catalytic activity/Vol] 105 U/L Normal 39-130 [facility] Comment on above: Performed By: #### C BC, CMP, 2532-0, 3084-1, 17855-9 #### [facility] ([id number]) [address], [address] [place] [address] ALT [Catalytic activity/Vol] 5 U/L Normal 0-31 [facility] Comment on above: Performed By: #### C BC, CMP, 2532-0, 3084-1, 92979-5 #### [facility] ([id number]) [address], [address] [place] [address] Anion gap [Moles/Vol] 10 mmol/L Normal 5-15 [facility] Comment on above: Performed By: #### Jeremiah BC, CMP, 2532-0, 3084-1, 66627-8 #### [facility] ([id number]) [address], [address] [place] [address] AST [Catalytic activity/Vol] 8 U/L Normal 0-41 [facility] Comment on above: Performed By: #### Jeremiah BC, CMP, 2532-0, 3084-1, 25263-4 #### [facility] ([id number]) [address], [address] [place] [address] Bilirubin [Mass/Vol] 0.2 mg/dL Low 0.3-1.2 [facility] Comment on above: Performed By: #### C BC, CMP, 2532-0, 3084-1, 13776-2 #### [facility] ([id number]) [address], [address] [place] [address] Calcium [Mass/Vol] 7.9 mg/dL Low 8.5-10.5 [facility] Comment on above: Performed By: #### C BC, CMP, 2532-0, 3084-1, 86463-1 #### [facility] ([id number]) [address], [address] [place] [address] Chloride [Moles/Vol] 105 mmol/L Normal 98-109 [facility] Comment on above: Performed By: #### C BC, CMP, 2532-0, 3084-1, 92450-5 #### [facility] ([id number]) [address], [address] [place] [address] CO2 [Moles/Vol] 20 mmol/L Low 22-32 [facility] Comment on above: Performed By: #### Jeremiah JULES, CMP, 2532-0, 4-1, 11171-8 #### [facility] ([id number]) [address], [address] [place] [address] Creatinine [Mass/Vol] 0.65 mg/dL Normal 0.40-1.00 [facility] Comment on above: Result Comment: METH OD TRACEABLE TO IDMS STANDARD Performed By: #### Jeremiah JULES, CMP, 2532-0, 3084-1, 02847-7 #### [facility] ([id number]) [address] [address] [place] [address] eGFR (CKD-EPI) NON-RACE DEPENDENT >90 Normal >59 [facility] Comment on above: Result Comment: Reported eGFR is based on the CKD-EPI 2020 equation that does not use a race coefficient. Performed By: #### C BC, CMP, 2532-0, 4-1, 66411-9 #### [facility] ([id number]) [address], [address] [place] [address] Glucose [Mass/Vol] 140 mg/dL High 65-99 [facility] Comment on above: Performed By: #### Jeremiah BC, CMP, 2532-0, 3084-1, 98366-1 #### [facility] ([id number]) [address], [address] [place] [address] Potassium [Moles/Vol] 4.4 mmol/L Normal 3.5-5.0 [facility] Comment on above: Performed By: #### C BC, CMP, 2532-0, 3084-1, 33622-2 #### [facility] ([id number]) [address], [address] [place] [address] Protein [Mass/Vol] 5.9 g/dL Low 6.0-8.0 [facility] Comment on above: Performed By: #### C DHARA, CMP, 2532-0, 3084-1, 73790-8 #### [facility] ([id number]) [address], [address] [place] [address] Sodium [Moles/Vol] 135 mmol/L Normal 134-146 [facility] Comment on above: Performed By: #### Jeremiah JULES, [facility], 2532-0, 3084-1, 30603-5 #### [facility] ([id number]) [address], [address] [place] [address] Urea nitrogen [Mass/Vol] 9 mg/dL Normal 5-23 [facility] Comment on above: Performed By: #### C BC, [facility], 2532-0, 3084-1, 97591-1 #### [facility] ([id number]) [address], [address] [place] [address] CORD ARTERIAL GASon 08-31-19 24 MARIOLA'S TEST Normal [facility] Comment on above: Performed By: #### C PUBLIC RELATIONS WRITER #### [facility] ([id number]) [address] [place] [address] BASE,DEFICIT 6.0 MMOL/L High 0.0-2.0 [facility] Comment on above: Performed By: #### C PUBLIC RELATIONS WRITER #### [facility] ([id number]) [address] [place] [address] HCO3 (Bld) [Moles/Vol] 24.5 mmol/L Normal 22-26 [facility] Comment on above: Performed By: #### C PUBLIC RELATIONS WRITER #### [facility] ([id number]) [address] [place] [address] Oxygen (Bld) [Partial pressure] 26 mm[Hg] High 12-24 [facility] Comment on above: Performed By: #### C PUBLIC RELATIONS WRITER #### [facility] ([id number]) [address] [place] [address] Oxygen saturation in Blood 32.0 % Normal 7.1-39.5 [facility] Comment on above: Performed By: #### C PUBLIC RELATIONS WRITER #### [facility] ([id number]) [address] [place] [address] OXYGEN SOURCE RoomAir Normal [facility] Comment on above: Performed By: #### C PUBLIC RELATIONS WRITER #### [facility] ([id number]) [address] [place] [address] PCO2 66.3 MMHG High 40.8-57.6 [facility] Comment on above: Performed By: #### C PUBLIC RELATIONS WRITER #### [facility] ([id number]) [address] [place] [address] pH (Bld) 7.176 [pH] Low 7.24-7.30 [facility] Comment on above: Performed By: #### C PUBLIC RELATIONS WRITER #### [facility] ([id number]) [address] [place] [address] SAMPLE SITE ArtCord Normal [facility] Comment on above: Performed By: #### C PUBLIC RELATIONS WRITER #### [facility] ([id number]) [address] [place] [address] SAMPLE TYPE UMBILICALCORD Normal [facility] Comment on above: Performed By: #### C PUBLIC RELATIONS WRITER #### [facility] ([id number]) [address] [facility] [place] [address] CORD VENOUS GASon 08-31-2023 MARIOLA'S TEST Normal [facility] Comment on above: Performed By: #### C RDV #### [facility] ([id number]) [address] [facility] [facility] [place] [address] BASE,DEFICIT 7.0 MMOL/L High 0.0-2.0 [facility] Comment on above: Performed By: #### C RDV #### [facility] ([id number]) [address] [facility] [place] [address] HCO3 (Bld) [Moles/Vol] 23.0 mmol/L Normal 20.0-24.0 [facility] Comment on above: Performed By: #### C RDV #### [facility] ([id number]) [address] [facility] [place] [address] Oxygen (Bld) [Partial pressure] 54 mm[Hg] High 22-35 [facility] Comment on above: Performed By: #### C RDV #### [facility] ([id number]) [address] [facility] [place] [address] Oxygen saturation in Blood 78.0 % High 32.5-66.3 [facility] Comment on above: Performed By: #### C RDV #### [facility] ([id number]) [address] [facility] [place] [address] OXYGEN SOURCE RoomAir Normal [facility] Comment on above: Performed By: #### C RDV #### [facility] ([id number]) [address] [place] [address] PCO2 60.0 MMHG Critically high 32.6-43.8 [facility] Comment on above: Performed By: #### C RDV #### [facility] ([id number]) [address] [facility] [place] [address] pH (Bld) 7.191 [pH] Low 7.25-7.37 [facility] Comment on above: Performed By: #### C RDV #### [facility] ([id number]) [address] [place] [address] SAMPLE SITE [facility] Comment on above: Performed By: #### C RDV #### [facility] ([id number]) [address] [place] [address] SAMPLE TYPE [facility] Comment on above: Performed By: #### C RDV #### [facility] ([id number]) [address] [place] [address] DRUG SCREEN, URINEon 024 AMPHETAMINE/METHAMP Negative Normal NEG [facility] Comment on above: Result Comment: AMPH /METH screening cut off = 1000 ng/mL Performed By: #### D GANT #### [facility] ([id number]) [address] [place] [address] BARBITURATES Negative Normal NEG [facility] Comment on above: Result Comment: Meaghan iturates screening cut off value = 200 ng/mL Performed By: #### D GANT #### [facility] ([id number]) [address] [place] [address] BENZODIAZEPINES Negative Normal NEG [facility] Comment on above: Result Comment: Steven odiazepines screening cut off value = 200 ng/mL Performed By: #### D GANT #### [facility] ([id number]) [address], [address] [place] [address] CANNABINOIDS Positive Abnormal NEG [facility] Comment on above: Result Comment: Conf irmation available upon request. Cannabinoids/THC screening cut off value = 50 ng/mL Performed By: #### D GANT #### [facility] ([id number]) [address], [address] [place] [address] COCAINE METABOLITE Negative Normal NEG [facility] Comment on above: Result Comment: Coca ine screening cut off value = 300 ng/mL Performed By: #### D GANT #### [facility] ([id number]) [address], [address] [place] [address] ECSTASY Negative Normal [facility] Comment on above: Result Comment: Ecst asy screening cut off value = 500 ng/mL This report is intended for use in clinical monitoring or management of patients. Performed By: #### D GANT #### [facility] ([id number]) [address], [address] [place] [address] METHADONE Negative Normal [facility] Comment on above: Result Comment: Meth adone screening cut off value = 300 ng/mL. Performed By: #### D GANT #### [facility] ([id number]) [address], [address] [place] [address] OPIATES Negative Normal [facility] Comment on above: Result Comment: Opia benjamin screening cut off value = 300 ng/mL NOTE: This test is used for the detection of codeine, hydrocodone (>1000 ng/mL), morphine and hydromorphone (>900 ng/mL) in urine. Performed By: #### D GANT #### [facility] ([id number]) [address] [place] [address] OXYCODONE Negative Normal [facility] Comment on above: Result Comment: Oxyc odone screening cut off value = 300 ng/mL NOTE: This test is used for the detection of oxycodone and oxymorphone in urine. Performed By: #### D GANT #### [facility] ([id number]) [address], [address] [place] [address] PHENCYCLIDINE Negative Normal [facility] Comment on above: Result Comment: Phen cyclidine screening cut off value = 25 ng/mL Performed By: #### D GANT #### [facility] ([id number]) [address] [facility], [address] [place] [address] LDH [Catalytic activity/Vol] on 08-31-2023 LDH 122 U/L Normal 100-235 [facility] Comment on above: Performed By: #### C BC, CMP, 2532-0, 3084-1, 69022-6 #### [facility] ([id number]) [address] [place] [address] [address] [place] [address] PROTEIN CREAT RATIOon 2023 RANDOM URINE PROTEIN 70 mg/L Normal <120 [facility] Comment on above: Performed By: #### U PCR #### [facility] ([id number]) [address] [place] [address] U/PRO/TAX SERVICES SPECIALIST RATIO CALC 0.34 High <0.2 [facility] Comment on above: Result Comment: Neph rotic Syndrome is associated with ratios >3.5 Performed By: #### U PCR #### [facility] ([id number]) [address] [place] [address] URINE CREATININE,RDM 20.84 mg/dL Normal [facility] Comment on above: Performed By: #### U PCR #### [facility] ([id number]) [address] [place] [address] Surgical Pathologyon 024 Surgical Pathology Normal [facility] Comment on above: Result Comment: [facility] [address] [place] [address] Surgical Pathology Consultation Patient Name:ADRIÁN CLEMENTSOB:1990 (Age: 33)Gender:FTaken:4Reported:4Physician(s):Esperanza Molina M.D. ([phone])Copy To: Rec. #:[id number]: #[id number] Final Pathologic Diagnosis Placenta: Third trimester placenta (440 g with subchorionic fibrin plaque. Partially circummarginate membranes, otherwise unremarkable. Unremarkable three-vessel umbilical cord with eccentric insertion. Report Electronically Signed Out /09/16/2023austen Ortiz MD Interpretation performed at [facility], [address] [place] [address], License number: [id number]. Clinical History Eclampsia. Gross Description Received in formalin labeled CLEMENTS, placenta : Single MEMBRANES: Placenta Sac Rupture [...] Rolled membrane, two sections of cord B-D Information Technology Audit Manager sections of placenta E Additional membrane roll (5,ss,[id number]) . 09/13/2023O Specimen(s) Received Placenta Fee Codes(s): 1; [address] T. pallidum IgG+IgM IA Ql (S )on 08-31-2023 Syphilis Total 0.2 AI Normal 0.0-0.8 [facility] Comment on above: Result Comment: NON REACTIVE No serologic evidence of infection to Treponema pallidum (syphilis). Repeat testing may be considered in patients with suspected acute or primary syphilis in 2 to 4 weeks. Performed By: #### C BC, CMP, 2532-0, 3084-1, 08487-1 #### [facility] ([id number]) [address] [place] [address], [address] [place] [address] URIC ACIDon 08-31-2023 Urate [Mass/Vol] 5.0 mg/dL Normal 2.6-7.2 [facility] Comment on above: Performed By: #### C BC, CMP, 2532-0, 3084-1, 67491-6 #### [facility] ([id number]) [address] [facility], [address] [place] [address] CBC panel Auto (Bld)on 03-17 Erythrocyte distribution width (RBC) [Ratio] 13.2 % Normal 11.5-15.0 [facility] Comment on above: Order Comment: Speci men Type: BLOOD SPECIMEN [facility] Address: [address] [place] [address] Performed By: #### 1 9123-9, 84998-6 #### [facility] CLIA [id number] [address] [place] [address] [place] Hematocrit (Bld) [Volume fraction] 35.1 % Low 36.0-46.0 [facility] Comment on above: Order Comment: Speci men Type: BLOOD SPECIMEN [facility] Address: [address] [place] [address] Performed By: #### 1 9123-9, 20179-6 #### [facility] CLIA [id number] STATES OF [facility] Hemoglobin (Bld) [Mass/Vol] 11.3 g/dL Low 11.5-15.5 [facility] Comment on above: Order Comment: Speci men Type: BLOOD SPECIMEN [facility] Address: [address] [place] [address] Performed By: #### 1 9123-9, 47551-1 #### [facility] CLIA [id number] [address] [place] [address] [place] MCH (RBC) [Entitic mass] 26.3 pg Normal 26.0-34.0 [facility] Comment on above: Order Comment: Speci men Type: BLOOD SPECIMEN [facility] Address: [address] [place] [address] Performed By: #### 1 9123-9, 09757-6 #### [facility] CLIA [id number] [address] [place] [address] [place] MCHC (RBC) [Mass/Vol] 32.2 g/dL Normal 30.5-36.0 [facility] Comment on above: Order Comment: Speci men Type: BLOOD SPECIMEN [facility] Address: [address] [place] [place] [address] Performed By: #### 1 9123-9, 97271-8 #### [facility] CLIA [id number] [address] [place] [address] [place] MCV (RBC) [Entitic vol] 81.6 fL Normal 80.0-100.0 [facility] Comment on above: Order Comment: Speci men Type: BLOOD SPECIMEN [facility] Address: [address] [place], [place] [address] Performed By: #### 1 9123-9, 05433-9 #### [facility] CLIA [id number] [address] [place] [address] [place] Nucleated RBC (Bld) [#/Vol] 10*3/uL Normal <0.01 [facility] Comment on above: Order Comment: Speci men Type: BLOOD SPECIMEN [facility] Address: [address] Performed By: #### 1 9123-9, 34911-2 #### [facility] CLIA [id number] [address] [place] [address] [place] Platelet mean volume (Bld) [Entitic vol] 8.7 fL Low 9.0-12.7 [facility] Comment on above: Order Comment: Speci men Type: BLOOD SPECIMEN [facility] Address: [address] [place], [place] [address] Performed By: #### 1 9123-9, 10214-4 #### [facility] CLIA [id number] [address] [place] [address] [place] Platelets (Bld) [#/Vol] 482 10*3/uL High 150-400 [facility] Comment on above: Order Comment: Speci men Type: BLOOD SPECIMEN [facility] Address: [address] [place] [address] Performed By: #### 1 9123-9, 10127-3 #### [facility] CLIA [id number] [address] [place] [address] [place] RBC (Bld) [#/Vol] 4.30 10*6/uL Normal 3.90-5.20 [facility] Comment on above: Order Comment: Speci men Type: BLOOD SPECIMEN [facility] Address: [address] [place] [address] Performed By: #### 1 9123-9, 99667-6 #### [facility] CLIA [id number] [address] [place] [address] [place] [facility] [place] WBC (Bld) [#/Vol] 10.57 10*3/uL Normal 3.70-11.00 [facility] Comment on above: Order Comment: Speci men Type: BLOOD SPECIMEN [facility] Address: [address] [place] [address] Performed By: #### 1 9123-9, 61821-8 #### [facility] CLIA [id number] [address] [place] [address] [place] CNDSon 03-17-2023 CNDS HNO ID: [id number] Author: Manoj Ramos MD Service: General Internal [...] your kidney infection. Please follow-up with your deputy felony clerk doctor regarding ongoing antibiotic recommendations in LABS [...] ORAL Tylen (more content not included)... Normal [facility] Magnesium SerPl-mCncon 03-17 Magnesium [Mass/Vol] 2.0 mg/dL Normal 1.7-2.3 [facility] Comment on above: Order Comment: Speci men Type: BLOOD SPECIMENOrdering Facility: [facility] Address: [address] [place] [address] Performed By: #### 1 9123-9, 22089-6 ####[facility] [id number] [place] [address] [place] Renal function 2000 panelon 03-17-2023 Albumin [Mass/Vol] 3.7 g/dL Low 3.9-4.9 [facility] Comment on above: Order Comment: Speci men Type: BLOOD SPECIMENOrdering Facility: [facility] Address: [address] [place] [address] Performed By: #### 1 9123-9, 24526-9 ####[facility] [id number] [place] [address] [place] Anion gap [Moles/Vol] 15 mmol/L Normal 9-18 [facility] Comment on above: Order Comment: Speci men Type: BLOOD SPECIMENOrdering Facility: [facility] Address: [address] [place] [address] Performed By: #### 1 9123-9, 01907-8 ####[facility] [id number] [place] [address] [place] Calcium [Mass/Vol] 9.6 mg/dL Normal 8.5-10.2 [facility] Comment on above: Order Comment: Speci men Type: BLOOD SPECIMENOrdering Facility: [facility] Address: [address] [place] [address] Performed By: #### 1 9123-9, 36919-8 ####[facility] [id number] [address] [place] Chloride [Moles/Vol] 99 mmol/L Normal 97-105 [facility] Comment on above: Order Comment: Speci men Type: BLOOD SPECIMENOrdering Facility: [facility] Address: [address] [place] [address] Performed By: #### 1 9123-9, 20421-7 ####[facility] [id number] [address] OF [facility] CO2 [Moles/Vol] 20 mmol/L Low 22-30 [facility] Comment on above: Order Comment: Speci men Type: BLOOD SPECIMENOrdering Facility: [facility] Address: [address] [place] [address] Performed By: #### 1 9123-9, 83618-1 ####[facility] [id number] [address] Creatinine [Mass/Vol] 0.67 mg/dL Normal 0.58-0.96 [facility] Comment on above: Order Comment: Speci men Type: BLOOD SPECIMENOrdering Facility: [facility] Address: [address] [place] [address] Performed By: #### 1 9123-9, 90108-4 ####[facility] [id number] [address] ESTIMATED GLOMERULAR FILTRATION RATE 121 mL/min/1.73m??? Normal >=60 [facility] Comment on above: Order Comment: Speci men Type: BLOOD SPECIMENOrdering Facility: [facility] Address: [address] [place] [address] Result Comment: Marisa mated Glomerular Filtration Rate [...] actual GFR. Performed By: #### 1 9123-9, 69978-7 ####[facility] [id number] [place] [address] [place] Glucose [Mass/Vol] 130 mg/dL High 74-99 [facility] Comment on above: Order Comment: Speci men Type: BLOOD SPECIMENOrdering Facility: [facility] Address: [address] [place] [address] Result Comment: The [place] [employer] Association (ADA) provides guidance for cutoff [...] Standards of Medical Care in Diabetes 2016, [place] [employer]. Diabetes Care. 2016.39(Suppl 1). Performed By: #### 1 9123-9, 05282-9 ####[facility] [id number] [place] [address] [place] Phosphate [Mass/Vol] 3.7 mg/dL Normal 2.7-4.8 [facility] Comment on above: Order Comment: Speci men Type: BLOOD SPECIMENOrdering Facility: [facility] Address: [address] [place] [place] [address] Performed By: #### 1 9123-9, 18169-0 ####[facility] [id number] [place] [address] [place] Potassium [Moles/Vol] 3.9 mmol/L Normal 3.7-5.1 [facility] Comment on above: Order Comment: Speci men Type: BLOOD SPECIMENOrdering Facility: [facility] Address: [address] [place] [address] Performed By: #### 1 9123-9, 12299-7 ####[facility] [id number] [place] [address] [place] Sodium [Moles/Vol] 134 mmol/L Low 136-144 [facility] Comment on above: Order Comment: Speci men Type: BLOOD SPECIMENOrdering Facility: [facility] Address: [address] [place] [address] Performed By: #### 1 9123-9, 27475-0 ####[facility] [id number] [address] [place] Urea nitrogen [Mass/Vol] 12 mg/dL Normal 7-21 [facility] Comment on above: Order Comment: Speci men Type: BLOOD SPECIMENOrdering Facility: [facility] Address: [address] [place] [address] Performed By: #### 1 9123-9, 68649-1 ####[facility] [id number] [address] [place] ALLIED HEALTHon 03-16-2023 ALLIED HEALTH HNO ID: [id number] Author: Heather Mcnair RT(Maria Luisa) Service: ? Author Type: Technologist Type: Allied [...] RT(R) March 16, 2023 9:16 PM Normal [facility] CBC panel Auto (Bld)on 03-16 Erythrocyte distribution width (RBC) [Ratio] 13.4 % Normal 11.5-15.0 [facility] Comment on above: Order Comment: Speci men Type: BLOOD SPECIMEN [facility] Address: [address] [place] [address] Performed By: #### 1 9123-9, 62084-5 #### [facility] CLIA [id number] [address] [place] [address] [place] Hematocrit (Bld) [Volume fraction] 33.1 % Low 36.0-46.0 [facility] Comment on above: Order Comment: Speci men Type: BLOOD SPECIMEN [facility] Address: [address] [place] [address] Performed By: #### 1 9123-9, 59692-1 #### [facility] CLIA [id number] [address] [place] [address] [place] Hemoglobin (Bld) [Mass/Vol] 10.7 g/dL Low 11.5-15.5 [facility] Comment on above: Order Comment: Speci men Type: BLOOD SPECIMEN [facility] Address: [address] [place] [address] Performed By: #### 1 9123-9, 41316-8 #### [facility] CLIA [id number] [address] [place] [address] [place] MCH (RBC) [Entitic mass] 26.4 pg Normal 26.0-34.0 [facility] Comment on above: Order Comment: Speci men Type: BLOOD SPECIMEN [facility] Address: [address] [place] [address] Performed By: #### 1 9123-9, 58188-9 #### [facility] CLIA [id number] [address] [place] [address] [place] MCHC (RBC) [Mass/Vol] 32.3 g/dL Normal 30.5-36.0 [facility] Comment on above: Order Comment: Speci men Type: BLOOD SPECIMEN [facility] Address: [address] [place], [place] [address] Performed By: #### 1 9123-9, #### [facility] CLIA [id number] [address] [place] [address] [place] MCV (RBC) [Entitic vol] 81.7 fL Normal 80.0-100.0 [facility] Comment on above: Order Comment: Speci men Type: BLOOD SPECIMEN [facility] Address: [address] [place], [place] [address] Performed By: #### 1 91239, #### [facility] CLIA [id number] [address] [place] [address] [place] Nucleated RBC (Bld) [#/Vol] 10*3/uL Normal <0.01 [facility] Comment on above: Order Comment: Speci men Type: BLOOD SPECIMEN [facility] Address: [address] [place], [place] [address] Performed By: #### 1 91239, #### [facility] CLIA [id number] [address] [place] [address] [place] Platelet mean volume (Bld) [Entitic vol] 9.0 fL Normal 9.0-12.7 [facility] Comment on above: Order Comment: Speci men Type: BLOOD SPECIMEN [facility] Address: [address] [place], [place] [address] Performed By: #### 1 9123-9, 80041-1 #### [facility] CLIA [id number] [address] [place] [address] [place] Platelets (Bld) [#/Vol] 444 10*3/uL High 150-400 [facility] Comment on above: Order Comment: Speci men Type: BLOOD SPECIMEN [facility] Address: [address] [place] [address] Performed By: #### 1 9123-9, 71450-4 #### [facility] CLIA [id number] [address] [place] [address] [place] RBC (Bld) [#/Vol] 4.05 10*6/uL Normal 3.90-5.20 [facility] Comment on above: Order Comment: Speci men Type: BLOOD SPECIMEN [facility] Address: [address] [place] [address] Performed By: #### 1 9123-9, 24822-7 #### [facility] CLIA [id number] [address] [place] [address] [place] WBC (Bld) [#/Vol] 8.78 10*3/uL Normal 3.70-11.00 [facility] Comment on above: Order Comment: Speci men Type: BLOOD SPECIMEN [facility] Address: [address] [place] [address] Performed By: #### 1 9123-9, 13679-2 #### [facility] CLIA [id number] [address] [place] [address] [place] CONSULT PROGon 03-16-2023 CONSULT PROG HNO ID: [id number] Author: Abbie Cifuentes MD Service: Obstetrics Author Type: Physician Type: Consult Progress Note Filed: 03/16/2023 7:27 AM Note 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 Sales Vendor sign off If any question , please page x [phone]. Rusty Muniz 03/16/2023 7:27 AM Normal [facility] MRI ABDOMEN WO IVCONon 03-16 MRI [...] PYELONEPHRITIS. NO HYDRONEPHROSIS. COMMUNICATION: Communicated with [facility] on 03/17/2023 9:32 AM via verbal communication. 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 Operator: PSCTeresita Transcribe Date/Time: Mar 17 2023 8:02A Dictated by : BRANDEN DE LA TORRE MD This examination was interpreted and the report reviewed and electronically signed by: JAZMIN VALENTE MD on Mar 17 2023 9:50AM EST [id number] Normal [facility] Magnesium SerPl-mCncon 03-16 Magnesium [Mass/Vol] 1.9 mg/dL Normal 1.7-2.3 [facility] Comment on above: Order Comment: Speci men Type: BLOOD SPECIMEN [facility] Address: [address] [place] [address] Performed By: #### 1 9123-9, 68403-7 #### [facility] CLIA [id number] [address] [place] [address] [place] Renal function [address] [place] [address] 03-16-2023 Albumin [Mass/Vol] 3.6 g/dL Low 3.9-4.9 [facility] Comment on above: Order Comment: Speci men Type: BLOOD SPECIMEN [facility] Address: [address] [place] [address] Performed By: #### 1 9123-9, 07312-4 #### [facility] CLIA [id number] [address] [place] [address] [place] Anion gap [Moles/Vol] 14 mmol/L Normal 9-18 [facility] Comment on above: Order Comment: Speci men Type: BLOOD SPECIMEN [facility] Address: [address] [place] [address] Performed By: #### 1 9123-9, 92026-8 #### [facility] CLIA [id number] [facility] [place] [address] [place] Calcium [Mass/Vol] 9.3 mg/dL Normal 8.5-10.2 [facility] Comment on above: Order Comment: Speci men Type: BLOOD SPECIMEN [facility] Address: [address] [place], [place] [address] Performed By: #### 1 9123-9, 61847-2 #### [facility] CLIA [id number] [address] [place] [address] [place] Chloride [Moles/Vol] 102 mmol/L Normal 97-105 [facility] Comment on above: Order Comment: Speci men Type: BLOOD SPECIMEN [facility] Address: [address] [place] [address] Performed By: #### 1 9123-9, 91586-6 #### [facility] CLIA [id number] [facility] [place] [address] [place] CO2 [Moles/Vol] 20 mmol/L Low 22-30 [facility] Comment on above: Order Comment: Speci men Type: BLOOD SPECIMEN [facility] Address: [address] [place] [address] Performed By: #### 1 9123-9, 76057-0 #### [facility] CLIA [id number] [address] [place] [address] [place] Creatinine [Mass/Vol] 0.71 mg/dL Normal 0.58-0.96 [facility] Comment on above: Order Comment: Speci men Type: BLOOD SPECIMEN [facility] Address: [address] [place] [address] Performed By: #### 1 9123-9, 72430-3 #### [facility] CLIA [id number] [address] [place] [address] OF [facility] ESTIMATED GLOMERULAR FILTRATION RATE 117 mL/min/1.73m??? Normal >=60 [facility] Comment on above: Order Comment: Speci men Type: BLOOD SPECIMEN [facility] Address: [address] [place] [address] Result Comment: Marisa mated Glomerular Filtration Rate [...] actual GFR. Performed By: #### 1 9123-9, 03632-1 #### [facility] CLIA [id number] [address] [place] [address] [place] Glucose [Mass/Vol] 125 mg/dL High 74-99 [facility] Comment on above: Order Comment: Tee francisco Type: BLOOD SPECIMEN [facility] Address: [address] [place] [address] Result Comment: The [place] Diabetes Association (ADA) provides guidance for cutoff [...] Standards of Medical Care in Diabetes 2016, [place] [employer]. Diabetes Care. 2016.39(Suppl 1). Performed By: #### 1 9123-9, 61830-7 #### [facility] CLIA [id number] [facility] [place] [address] [place] Phosphate [Mass/Vol] 3.7 mg/dL Normal 2.7-4.8 [facility] Comment on above: Order Comment: Tee francisco Type: BLOOD SPECIMEN [facility] Address: [address] [place] [address] Performed By: #### 1 9123-9, 43268-9 #### [facility] CLIA [id number] [address] [place] [address] [place] Potassium [Moles/Vol] 3.9 mmol/L Normal 3.7-5.1 [facility] Comment on above: Order Comment: Tee francisco Type: BLOOD SPECIMEN [facility] Address: [address] [place] [address] Performed By: #### 1 9123-9, 37536-1 #### [facility] CLIA [id number] [address] [place] [address] [place] Sodium [Moles/Vol] 136 mmol/L Normal 136-144 [facility] Comment on above: Order Comment: Speci men Type: BLOOD SPECIMEN [facility] Address: [address] [place] [place] [address] Performed By: #### 1 9123-9, 29948-2 #### [facility] CLIA [id number] [address] [place] [address] [place] Urea nitrogen [Mass/Vol] 10 mg/dL Normal 7-21 [facility] Comment on above: Order Comment: Speci men Type: BLOOD SPECIMEN [facility] Address: [address] [place] [address] Performed By: #### 1 9123-9, 07655-5 #### [facility] CLIA [id number] [address] [place] [address] [place] CBC panel Auto (Bld)on 03-15 Erythrocyte distribution width (RBC) [Ratio] 13.5 % Normal 11.5-15.0 [facility] Comment on above: Order Comment: Speci men Type: BLOOD SPECIMENOrdering [facility] Address: [address] [place] [address] Performed By: #### 5 8410-2 ####[facility] [id number] [place] [address] [place] Hematocrit (Bld) [Volume fraction] 32.4 % Low 36.0-46.0 [facility] Comment on above: Order Comment: Speci men Type: BLOOD SPECIMENOrdering [facility] Address: [address] [place] [address] Performed By: #### 5 8410-2 ####[facility] [id number] [address] STATES OF [facility] Hemoglobin (Bld) [Mass/Vol] 10.4 g/dL Low 11.5-15.5 [facility] Comment on above: Order Comment: Speci men Type: BLOOD SPECIMENOrdering [facility] Address: [address] [place] [address] Performed By: #### 5 8410-2 ####[facility] [id number] [address] MCH (RBC) [Entitic mass] 26.6 pg Normal 26.0-34.0 [facility] Comment on above: Order Comment: Speci men Type: BLOOD SPECIMENOrdering Facility: [facility] Address: [address] [place] [address] Performed By: #### 5 8410-2 ####[facility] [id number] [address] STATES [facility] MCHC (RBC) [Mass/Vol] 32.1 g/dL Normal 30.5-36.0 [facility] Comment on above: Order Comment: Speci men Type: BLOOD SPECIMENOrdering Facility: [facility] Address: [address] [place], [place] [address] Performed By: #### 5 8410-2 ####[facility] [id number] [address] [place] MCV (RBC) [Entitic vol] 82.9 fL Normal 80.0-100.0 [facility] Comment on above: Order Comment: Speci men Type: BLOOD SPECIMENOrdering Facility: [facility] Address: [address] [place], [place] [address] Performed By: #### 5 8410-2 ####[facility] [id number] [address] [place] Nucleated RBC (Bld) [#/Vol] 10*3/uL Normal <0.01 [facility] Comment on above: Order Comment: Speci men Type: BLOOD SPECIMENOrdering Facility: [facility] Address: [address] [place], [place] [address] Performed By: #### 5 8410-2 ####[facility] [id number] [place] [address] [place] Platelet mean volume (Bld) [Entitic vol] 9.5 fL Normal 9.0-12.7 [facility] Comment on above: Order Comment: Speci men Type: BLOOD SPECIMENOrdering Facility: [facility] Address: [address] [place] [address] Performed By: #### 5 8410-2 ####[facility] [id number] [place] [address] [place] Platelets (Bld) [#/Vol] 450 10*3/uL High 150-400 [facility] Comment on above: Order Comment: Speci men Type: BLOOD SPECIMENOrdering Facility: [facility] Address: [address] [place], [place] [address] Performed By: #### 5 8410-2 ####[facility] [id number] [place] [address] [place] RBC (Bld) [#/Vol] 3.91 10*6/uL Normal 3.90-5.20 [facility] Comment on above: Order Comment: Speci men Type: BLOOD SPECIMENOrdering Facility: [facility] Address: [address] [place], [place] [address] Performed By: #### 5 8410-2 ####[facility] [id number] [place] [address] [place] WBC (Bld) [#/Vol] 10.48 10*3/uL Normal 3.70-11.00 [facility] Comment on above: Order Comment: Speci men Type: BLOOD SPECIMENOrdering Facility: [facility] Address: [address] [place] [address] [place] [address] Performed By: #### 5 8410-2 ####[facility] [id number] [facility] [id number] [address] [place] CONSULTon 03-15-2023 CONSULT HNO ID: [id number] Author: Abbie Cifuentes MD Service: Gynecology Author [...] hr Seen and evaluated with Dr. Cifuentes, [employer] staff. Pretty Duncan DO Staff Toxicologist Resident, PGY-1 9:11 AM After 5pm and on weekends please page [phone]. SUBJECTIVE HPI: 32 year old with PMHx Stills disease, benign liver angioma s/p resection, at 8 weeks 6 days gestation (by LMP) admitted for pyelonephritis, seen by gynecology for vaginal spotting. States she began experiencing flank pain with hematuria, without dysuria or frequency, on February 22. Called her OB provider (Dr. Ricks at [facility]), who gave rx for macrobid. Had [...] scheduled this Tuesday (03/18) Was transferred to [facility] for management given her history of [...] Mg, emergency CS. Delivered 9 mo ago [employer] Hx: LMP: 01/12/23 Menses: regular every 28 [...] The remainde (more content not included)... Normal [facility] CRP SerPl-ncon 03-15-2023 CRP [Mass/Vol] 9.0 mg/dL High <0.9 [facility] Comment on above: Order Comment: Speci men Type: BLOOD SPECIMEN [facility] Address: [address] [place] [address] Performed By: #### 1 9123-9, 56720-2 #### [facility] CLIA [id number] [address] [place] [address] [place] MEDICAL EMERon 03-15-2023 MEDICAL DEVI HNO ID: [id number] Author: Jose De Jesus White APRN.MARBLE SETTER HELPER Service: Critical Care Author Type: Nurse Practitioner [...] bleeding HPI: Ms. Clements was transferred to [facility] 03/13 from [facility] for further mgmt of possible [...] Abdomen: soft and tender Peripheral 03/13/23 1300 [facility] Short Left Antecubital 18 Gauge (Active) Placement Date/Time: 03/13/23 1300 Line, Drain, Airway Placed by: [facility] Type of Peripheral Line: Short Location: Left Insertion Site: Antecubital Size: 18 Gauge Line Placed Under Ultrasound Guidance: Yes Peripheral 03/13/23 1300 [facility] Right Forearm 18 Gauge (Active) Placement Date/Time: 03/13/23 1300 Line, Drain, Airway Placed by: [facility] Location: Right Insertion Site: Forearm Size: 18 Gauge Line Placed Under Ultrasound Guidance: Yes [facility] Diagnostic Tests Reviewed: Most recent labs and imaging results. Primary Team Aware/Notified: Yes SIGNATURE: Jose De Jesus White APRN.CNP PATIENT NAME: Qian Clements DATE: March 15, 2023 TIME: 8:57 AM Normal [facility] Magnesium SerPl-ncon 03-15 Magnesium [Mass/Vol] 2.1 mg/dL Normal 1.7-2.3 [facility] Comment on above: Order Comment: Speci men Type: BLOOD SPECIMEN [facility] Address: [address] [place] [address] Performed By: #### 1 9123-9, 50685-0 #### [facility] CLIA [id number] [address] [facility] [place] [address] [place] Renal function 2000 panelon 03-15-2023 Albumin [Mass/Vol] 3.7 g/dL Low 3.9-4.9 [facility] Comment on above: Order Comment: Speci men Type: BLOOD SPECIMEN [facility] Address: [address] Performed By: #### 1 9123-9, 17975-8 #### [facility] CLIA [id number] [address] [place] [address] [place] Anion gap [Moles/Vol] 12 mmol/L Normal 9-18 [facility] Comment on above: Order Comment: Speci men Type: BLOOD SPECIMEN [facility] Address: [address] Performed By: #### 1 9123-9, 84105-7 #### [facility] CLIA [id number] [address] [place] [address] [place] Calcium [Mass/Vol] 9.5 mg/dL Normal 8.5-10.2 [facility] Comment on above: Order Comment: Speci men Type: BLOOD SPECIMEN [facility] Address: [address] Performed By: #### 1 9123-9, 71609-8 #### [facility] CLIA [id number] [address] [place] [address] [place] Chloride [Moles/Vol] 103 mmol/L Normal 97-105 [facility] Comment on above: Order Comment: Speci men Type: BLOOD SPECIMEN [facility] Address: [address] Performed By: #### 1 9123-9, 81633-9 #### [facility] CLIA [id number] [address] [place] [address] [place] CO2 [Moles/Vol] 21 mmol/L Low 22-30 [facility] Comment on above: Order Comment: Speci men Type: BLOOD SPECIMEN [facility] Address: [address] [place] [place] [address] Performed By: #### 1 9123-9, 94965-4 #### [facility] CLIA [id number] [address] [place] [address] [place] Creatinine [Mass/Vol] 0.77 mg/dL Normal 0.58-0.96 [facility] Comment on above: Order Comment: Tee francisco Type: BLOOD SPECIMEN [facility] Address: [address] [place] [place] [address] Performed By: #### 1 9123-9, 41440-6 #### [facility] CLIA [id number] [address] [place] [address] [place] ESTIMATED GLOMERULAR FILTRATION RATE 107 mL/min/1.73m??? Normal >=60 [facility] Comment on above: Order Comment: Tee francisco Type: BLOOD SPECIMEN [facility] Address: [address] [place] [address] Result Comment: Marisa mated Glomerular Filtration Rate [...] actual GFR. Performed By: #### 1 9123-9, 67383-4 #### [facility] CLIA [id number] [address] [place] [address] [place] Glucose [Mass/Vol] 102 mg/dL High 74-99 [facility] Comment on above: Order Comment: Tee francisco Type: BLOOD SPECIMEN [facility] Address: [address] [place] [address] Result Comment: The [place] Diabetes Association (ADA) provides guidance for cutoff [...] Standards of Medical Care in Diabetes 2016, [place] [employer]. Diabetes Care. 2016.39(Suppl 1). Performed By: #### 1 9123-9, 10291-7 #### [facility] CLIA [id number] [address] [place] [address] [place] Phosphate [Mass/Vol] 3.5 mg/dL Normal 2.7-4.8 [facility] Comment on above: Order Comment: Speci men Type: BLOOD SPECIMEN [facility] Address: [address] [place] [address] Performed By: #### 1 9123-9, 06072-2 #### [facility] CLIA [id number] [address] [place] [address] [place] Potassium [Moles/Vol] 4.3 mmol/L Normal 3.7-5.1 [facility] Comment on above: Order Comment: Speci men Type: BLOOD SPECIMEN [facility] Address: [address] [place] [address] Performed By: #### 1 9123-9, 04605-1 #### [facility] CLIA [id number] [address] [place] [address] [place] Sodium [Moles/Vol] 136 mmol/L Normal 136-144 [facility] Comment on above: Order Comment: Speci men Type: BLOOD SPECIMEN [facility] Address: [address] Performed By: #### 1 9123-9, 29575-4 #### [facility] CLIA [id number] [address] [place] [id number] [place] Urea nitrogen [Mass/Vol] 11 mg/dL Normal 7-21 [facility] Comment on above: Order Comment: Speci men Type: BLOOD SPECIMEN [facility] Address: [address] [place] [address] Performed By: #### 1 9123-9, 71710-7 #### [facility] CLIA [id number] [address] [place] [address] [place] TYPE + SCREEN PRENATALon ABO O Normal [facility] Comment on above: Order Comment: Speci men Type: BLOOD SPECIMEN [facility] Address: [address] [place] [address] Performed By: #### 1 9123-9, 61544-9 #### [facility] CLIA [id number] [address] [place] HISTORICAL AB SCR STATUS Negative Normal [facility] Comment on above: Order Comment: Speci men Type: BLOOD SPECIMEN [facility] Address: [address] [place] [address] Performed By: #### 1 9123-9, 88094-1 #### [facility] CLIA [id number] [address] [place] [address] [place] Rh Nom (Bld) Positive Normal [facility] Comment on above: Order Comment: Speci men Type: BLOOD SPECIMEN [facility] Address: [address] [place], [place] [address] Performed By: #### 1 9123-9, 87049-2 #### [facility] CLIA [id number] [address] [place] [address] [place] TYPE AND SCREEN EXPIRATION 03/18/2023 23:59 Normal [facility] Comment on above: Order Comment: Speci men Type: BLOOD SPECIMEN [facility] Address: [address] Performed By: #### 1 9123-9, 17835-8 #### [facility] CLIA [id number] [address] [place], [place] [address] [place] US PREG TRANSABD <14 WKS LTD on 03-15-2023 US PREG TRANSABD <14 WKS LTD * * *Final Report* * * DATE OF EXAM: Mar 15 2023 2:48PM [facility] 10[facility] - US PREG TRANSABD <14 WKS [...] sac: Present - Embryo: Single present - Council rump length: 1.83 cm, corresponding gestational age 8 weeks, 2 days -Gestational heart rate: present 161-166 bpm -Subgestational hematoma: Absent Right ovary: Not seen. Left ovary: - Size: 2.4 x 1.3 x 2.7 cm - Normal sonographic appearance with physiologic follicles. Pelvis free fluid: None. IMPRESSION: Single, live intrauterine gestation. Estimated Gestational Age: 8 weeks, 2 days by crown rump length. 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 Left ovary: - Size: 2.4 x 1.3 x 2.7 cm - Normal sonographic appearance with physiologic follicles. Pelvis free fluid: None. IMPRESSION: Single, live intrauterine gestation. Estimated Gestational Age: 8 weeks, 2 days by crown rump length. 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 Operator: [facility] Transcribe Date/Time: Mar 15 2023 3:17P Dictated by : MARY ANN ESQUIVEL MD This examination was interpreted and the report reviewed and electronically signed by: MARY ANN ESQUIVEL MD on Mar 15 2023 3:24PM EST [id number] Normal [facility] CASE MGT INIT MERLENEkalpana 2022 CASE MGT INIT [facility] HNO ID: [id number] Author: Adwoa Hodge RN Service: ? Author Type: Registered Nurse Type: Care Mgt Initial Assessment Filed: 03/14/2023 1:05 PM Note Text: CARE MANAGEMENT: ASSESSMENT AND DISCHARGE PLAN SERVICE DATE: March 14, 2023 SERVICE TIME: 12:53 PM PCP: Racquel Simpson Primary Contact: Extended Emergency Contact Information Primary Emergency Contact: Mary AliceharriettKarissa Mobile Relation: Mother Admission Status: Inpatient Insurance Provider: [employer] Needs Prior to Discharge: To Be Determined PCP: Racquel Simpson [phone] f. [phone] Post-Acute Discharge Plan: CM met with pt [...] does not use drugs. Primary care paged [employer] regarding recommended imaging for nephrolithiasis in the setting of 1st trimester of . This patient has been screened for Care Management Transitional Planning Services. At this time, it does not appear this patient will require transition planning services. Should this change, and the patient require transition planning services during this admission, please call [phone]. NO SKILLED NEEDS SIGNATURE: Adwoa Hodge RN PATIENT NAME: Qian Clements DATE: March 14, 2023 TIME: 12:53 PM CONTACT #: [phone] Normal [facility] CBC panel Auto (Bld)on 03-14 Erythrocyte distribution width (RBC) [Ratio] 13.6 % Normal 11.5-15.0 [facility] Comment on above: Order Comment: Tee francisco Type: BLOOD SPECIMENOrdering Facility: [facility] Address: [address] [address] Performed By: #### 5 8410-2 ####[facility] [id number] [place] [address] [place] Hematocrit (Bld) [Volume fraction] 31.0 % Low 36.0-46.0 [facility] Comment on above: Order Comment: Tee francisco Type: BLOOD SPECIMENOrdering Facility: [facility] Address: [address] [address] Performed By: #### 9 0544-2 ####[facility] [id number] [address] STATES OF [facility] Hemoglobin (Bld) [Mass/Vol] 10.4 g/dL Low 11.5-15.5 [facility] Comment on above: Order Comment: Speci men Type: BLOOD SPECIMENOrdering Facility: [facility] Address: [address] [place] [address] Performed By: #### 5 8410-2 ####[facility] [id number] [address] [place] MCH (RBC) [Entitic mass] 26.5 pg Normal 26.0-34.0 [facility] Comment on above: Order Comment: Speci men Type: BLOOD SPECIMENOrdering Facility: [facility] Address: [address] [place] [address] Performed By: #### 5 8410-2 ####[facility] [id number] [address] MCHC (RBC) [Mass/Vol] 33.5 g/dL Normal 30.5-36.0 [facility] Comment on above: Order Comment: Speci men Type: BLOOD SPECIMENOrdering Facility: [facility] Address: [address] [place], [place] [address] Performed By: #### 5 8410-2 ####[facility] [id number] [address] [place] MCV (RBC) [Entitic vol] 78.9 fL Low 80.0-100.0 [facility] Comment on above: Order Comment: Speci men Type: BLOOD SPECIMENOrdering Facility: [facility] Address: [address] [place] [address] Performed By: #### 5 8410-2 ####[facility] [id number] [address] [place] [address] [place] Nucleated RBC (Bld) [#/Vol] 10*3/uL Normal <0.01 [facility] Comment on above: Order Comment: Speci men Type: BLOOD SPECIMENOrdering Facility: [facility] Address: [address] [place], [place] [address] Performed By: #### 5 8410-2 ####[facility] [id number] [place] [address] [place] Platelet mean volume (Bld) [Entitic vol] 9.0 fL Normal 9.0-12.7 [facility] Comment on above: Order Comment: Speci men Type: BLOOD SPECIMENOrdering Facility: [facility] Address: [address] [place], [place] [address] Performed By: #### 5 8410-2 ####[facility] [id number] [place] [address] [place] Platelets (Bld) [#/Vol] 415 10*3/uL High 150-400 [facility] Comment on above: Order Comment: Speci men Type: BLOOD SPECIMENOrdering Facility: [facility] Address: [address] [place], [place] [address] Performed By: #### 5 8410-2 ####[facility] [id number] [place] [address] [place] RBC (Bld) [#/Vol] 3.93 10*6/uL Normal 3.90-5.20 [facility] Comment on above: Order Comment: Speci men Type: BLOOD SPECIMENOrdering Facility: [facility] Address: [address] [place] [address] Performed By: #### 5 8410-2 ####[facility] [id number] [place] [address] [place] WBC (Bld) [#/Vol] 11.23 10*3/uL High 3.70-11.00 [facility] Comment on above: Order Comment: Speci men Type: BLOOD SPECIMENOrdering Facility: [facility] Address: [address] Performed By: #### 5 8410-2 ####[facility] [id number] [place] [address] [place] Magnesium SerPl-mCncon 03-14 Magnesium [Mass/Vol] 1.9 mg/dL Normal 1.7-2.3 [facility] Comment on above: Order Comment: Speci men Type: BLOOD SPECIMEN [facility] Address: [address] Performed By: #### 4 537-7, 13755-2 #### [facility] CLIA [id number] [address] [place] [address] [place] Renal function 2000 panelon 03-14-2023 Albumin [Mass/Vol] 3.6 g/dL Low 3.9-4.9 [facility] Comment on above: Order Comment: Speci men Type: BLOOD SPECIMEN [facility] Address: [place] [address] Performed By: #### 4 537-7, 11161-9 #### [facility] CLIA [id number] [address] [place] [address] [place] Anion gap [Moles/Vol] 13 mmol/L Normal 9-18 [facility] Comment on above: Order Comment: Speci men Type: BLOOD SPECIMEN [facility] Address: [address] Performed By: #### 4 537-7, 30957-0 #### [facility] CLIA [id number] [address] [place] [address] [place] Calcium [Mass/Vol] 9.2 mg/dL Normal 8.5-10.2 [facility] Comment on above: Order Comment: Speci men Type: BLOOD SPECIMEN [facility] Address: [address] Performed By: #### 4 537-7, 90313-8 #### [facility] CLIA [id number] [address] [place] [address] [place] Chloride [Moles/Vol] 102 mmol/L Normal 97-105 [facility] Comment on above: Order Comment: Speci men Type: BLOOD SPECIMEN [facility] Address: [address] Performed By: #### 4 537-7, 70873-9 #### [facility] CLIA [id number] [address] [place] [address] [place] CO2 [Moles/Vol] 19 mmol/L Low 22-30 [facility] Comment on above: Order Comment: Speci men Type: BLOOD SPECIMEN [facility] Address: [address] [place], [place] [address] Performed By: #### 4 537-7, 62632-6 #### [facility] CLIA [id number] [address] [place] [address] [place] Creatinine [Mass/Vol] 0.75 mg/dL Normal 0.58-0.96 [facility] Comment on above: Order Comment: Speci men Type: BLOOD SPECIMEN [facility] Address: [address] Performed By: #### 4 537-7, 10926-1 #### [facility] CLIA [id number] [address] [place] [address] [place] ESTIMATED GLOMERULAR FILTRATION RATE 110 mL/min/1.73m??? Normal >=60 [facility] Comment on above: Order Comment: Speci men Type: BLOOD SPECIMEN [facility] Address: [address] [place], [place] [address] Result Comment: Marisa mated Glomerular Filtration Rate [...] actual GFR. Performed By: #### 4 537-7, 44891-5 #### [facility] CLIA [id number] [address] [place] [address] [place] Glucose [Mass/Vol] 131 mg/dL High 74-99 [facility] Comment on above: Order Comment: Tee francisco Type: BLOOD SPECIMEN [facility] Address: [address] [place] [address] Result Comment: The [place] Diabetes Association (ADA) provides guidance for cutoff [...] Standards of Medical Care in Diabetes 2016, [place] [employer]. Diabetes Care. 2016.39(Suppl 1). Performed By: #### 4 537-7, 27372-6 #### [facility] CLIA [id number] [address] [place] [address] [place] Phosphate [Mass/Vol] 2.6 mg/dL Low 2.7-4.8 [facility] Comment on above: Order Comment: Tee francisco Type: BLOOD SPECIMEN [facility] Address: [address] [place], [place] [address] Performed By: #### 4 537-7, 61652-4 #### [facility] CLIA [id number] [address] [place] [address] [place] Potassium [Moles/Vol] 3.7 mmol/L Normal 3.7-5.1 [facility] Comment on above: Order Comment: Speci men Type: BLOOD SPECIMEN [facility] Address: [address] [place] [address] Performed By: #### 4 537-7, 37746-1 #### [facility] CLIA [id number] [address] [place] [address] [place] Sodium [Moles/Vol] 134 mmol/L Low 136-144 [facility] Comment on above: Order Comment: Speci men Type: BLOOD SPECIMEN [facility] Address: [address] [place] [address] Performed By: #### 4 537-7, 38685-6 #### [facility] CLIA [id number] [address] [place] [address] [place] Urea nitrogen [Mass/Vol] 7 mg/dL Normal 7-21 [facility] Comment on above: Order Comment: Speci men Type: BLOOD SPECIMEN [facility] Address: [address] [place] [address] Performed By: #### 4 537-7, 75953-2 #### [facility] CLIA [id number] [address] [place] [address] [place] US KIDNEY/BLADDERon 03-14-20 [...] IMPRESSION: NO HYDRONEPHROSIS OR SHADOWING RENAL CALCULUS. 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 Operator: PSCTeresita Transcribe Date/Time: Mar 14 2023 12:32P Dictated by : ARTURO ALVRAADO DO This examination was interpreted and the report reviewed and electronically signed by: ARTURO ALVARADO DO on Mar 14 2023 12:34PM EST [id number] Normal [facility] BETA HCG, QUANTITATIVE FOR E Don 03-13-2023 HCG.beta subunit Qn m[IU]/mL High <5.0 [facility] Comment on above: Order Comment: Speci men Type: BLOOD SPECIMEN [facility] Address: [address] [place] [address] Result Comment: SO TITATIVE HCG NORMAL RANGES Weeks of Gestation (Weeks Since LMP) 3 Weeks (5.8-71.2 mIU/mL) 4 Weeks (9.5-750 mIU/mL) 5 Weeks (217-7138 mIU/mL) 6 Weeks (158-21099 mIU/mL) 7 Weeks (3697-497775 mIU/mL) 8 Weeks (98671-773806 mIU/mL) 9 Weeks (86077-053450 mIU/mL) 10 Weeks (98548-602752 mIU/mL) 12 Weeks (17822-781210 mIU/mL) Referenced to 4th IS of [facility] Performed By: #### 4 537-7, 51741-1 #### [facility] CLIA [id number] [address] [facility] [place] [address] [place] Bacteria Bld Culton 03-13-20 23 Bacteria identified Cx Nom (Bld) CULTURE, BLOOD: No growth 5 days Normal [facility] Comment on above: Performed By: #### 6 00-7 ####[facility] [id number] [place] [address] [place] [facility] Bacteria identified Cx Nom (Bld) CULTURE, BLOOD: No growth 5 days Normal [facility] Comment on above: Performed By: #### 6 00-7 ####[facility] [id number] [place] [address] [place] CBC W Auto Differential pane l (Bld)on 03-13-2023 Basophils (Bld) [#/Vol] 0.03 10*3/uL Normal <0.11 [facility] Comment on above: Order Comment: Speci men Type: BLOOD SPECIMEN [facility] Address: [address] [place] [address] Performed By: #### 4 537-7, 67709-4 #### [facility] CLIA [id number] [address] [place] [address] [place] Basophils/100 WBC (Bld) 0.2 % Normal [facility] Comment on above: Order Comment: Speci men Type: BLOOD SPECIMEN [facility] Address: [address] [place] [address] Performed By: #### 4 537-7, 73027-8 #### [facility] CLIA [id number] [address] [place] [address] [place] Differential cell count method Nom (Bld) Auto Normal [facility] Comment on above: Order Comment: Speci men Type: BLOOD SPECIMEN [facility] Address: [address] [place] [address] Performed By: #### 4 537-7, 80357-6 #### [facility] CLIA [id number] [facility] [place] [address] [place] Eosinophils (Bld) [#/Vol] 10*3/uL Normal <0.46 [facility] Comment on above: Order Comment: Speci men Type: BLOOD SPECIMEN [facility] Address: [address] [place] [address] Performed By: #### 4 537-7, 30707-5 #### [facility] CLIA [id number] [address] [place] [address] [place] Eosinophils/100 WBC (Bld) 0.1 % Normal [facility] Comment on above: Order Comment: Speci men Type: BLOOD SPECIMEN [facility] Address: [address] [place], [place] [address] Performed By: #### 4 537-7, 71765-4 #### [facility] CLIA [id number] [address] [place] [address] [place] Erythrocyte distribution width (RBC) [Ratio] 13.5 % Normal 11.5-15.0 [facility] Comment on above: Order Comment: Speci men Type: BLOOD SPECIMEN [facility] Address: [address] [place], [place] [address] Performed By: #### 4 537-7, 68164-6 #### [facility] CLIA [id number] [address] [place] [address] [place] Hematocrit (Bld) [Volume fraction] 32.4 % Low 36.0-46.0 [facility] Comment on above: Order Comment: Speci men Type: BLOOD SPECIMEN [facility] Address: [address] [place] [address] Performed By: #### 4 537-7, 89841-3 #### [facility] CLIA [id number] [address] [place] [address] [place] Hemoglobin (Bld) [Mass/Vol] 10.5 g/dL Low 11.5-15.5 [facility] Comment on above: Order Comment: Speci men Type: BLOOD SPECIMEN [facility] Address: [address] Performed By: #### 4 537-7, 42648-4 #### [facility] CLIA [id number] [address] [place] [address] [place] Immature granulocytes (Bld) [#/Vol] 0.11 10*3/uL High <0.10 [facility] Comment on above: Order Comment: Speci men Type: BLOOD SPECIMEN [facility] Address: [address] [address] Performed By: #### 4 537-7, 91266-7 #### [facility] CLIA [id number] [address] [place] [address] [place] Immature granulocytes/100 WBC (Bld) 0.8 % Normal [facility] Comment on above: Order Comment: Speci men Type: BLOOD SPECIMEN [facility] Address: [address] Performed By: #### 4 537-7, 99548-7 #### [facility] CLIA [id number] [address] [place] [address] [place] Lymphocytes (Bld) [#/Vol] 1.86 10*3/uL Normal 1.00-4.00 [facility] Comment on above: Order Comment: Speci men Type: BLOOD SPECIMEN [facility] Address: [address] Performed By: #### 4 537-7, 76849-3 #### [facility] CLIA [id number] [address] [place] [address] [place] Lymphocytes/100 WBC (Bld) 13.0 % Normal [facility] Comment on above: Order Comment: Speci men Type: BLOOD SPECIMEN [facility] Address: [address] Performed By: #### 4 537-7, 01877-4 #### [facility] CLIA [id number] [address] [place] [address] [place] MCH (RBC) [Entitic mass] 26.6 pg Normal 26.0-34.0 [facility] Comment on above: Order Comment: Speci men Type: BLOOD SPECIMEN [facility] Address: [address] Performed By: #### 4 537-7, 83433-2 #### [facility] CLIA [id number] [address] [place] [address] [place] MCHC (RBC) [Mass/Vol] 32.4 g/dL Normal 30.5-36.0 [facility] Comment on above: Order Comment: Speci men Type: BLOOD SPECIMEN [facility] Address: [address] [place], [place] [address] Performed By: #### 4 537-7, 23660-9 #### [facility] IA [id number] [address] [place] [address] [place] MCV (RBC) [Entitic vol] 82.0 fL Normal 80.0-100.0 [facility] Comment on above: Order Comment: Speci men Type: BLOOD SPECIMEN [facility] Address: [address] [place] [address] Performed By: #### 4 537-7, 79843-9 #### [facility] CLIA [id number] [address] [place] [address] [place] Monocytes (Bld) [#/Vol] 1.09 10*3/uL High <0.87 [facility] Comment on above: Order Comment: Speci men Type: BLOOD SPECIMEN [facility] Address: [address] [place], [place] [address] Performed By: #### 4 537-7, 64684-8 #### [facility] CLIA [id number] [address] [place] [address] [place] Monocytes/100 WBC (Bld) 7.6 % Normal [facility] Comment on above: Order Comment: Speci men Type: BLOOD SPECIMEN [facility] Address: [address] [place] [address] Performed By: #### 4 537-7, 13718-3 #### [facility] CLIA [id number] [address] [place] [address] [place] Neutrophils (Bld) [#/Vol] 11.15 10*3/uL High 1.45-7.50 [facility] Comment on above: Order Comment: Speci men Type: BLOOD SPECIMEN [facility] Address: [address] [place] [address] Performed By: #### 4 537-7, 17161-5 #### [facility] CLIA [id number] [address] [place] [address] [place] Neutrophils/100 WBC (Bld) 78.3 % Normal [facility] Comment on above: Order Comment: Speci men Type: BLOOD SPECIMEN [facility] Address: [address] [place] [address] Performed By: #### 4 537-7, 92358-9 #### [facility] CLIA [id number] [facility] [place] [address] [place] Nucleated RBC (Bld) [#/Vol] 10*3/uL Normal <0.01 [facility] Comment on above: Order Comment: Speci men Type: BLOOD SPECIMEN [facility] Address: [address] [place] [address] Performed By: #### 4 537-7, 43572-7 #### [facility] CLIA [id number] [address] [place] [address] [place] Nucleated RBC/100 WBC (Bld) [Ratio] 0.0 /100 WBC Normal [facility] Comment on above: Order Comment: Speci men Type: BLOOD SPECIMEN [facility] Address: [address] [place] [address] Performed By: #### 4 537-7, 46062-5 #### [facility] CLIA [id number] [address] [place] [address] [place] Platelet mean volume (Bld) [Entitic vol] 8.9 fL Low 9.0-12.7 [facility] Comment on above: Order Comment: Speci men Type: BLOOD SPECIMEN [facility] Address: [address] [place], [place] [address] Performed By: #### 4 537-7, 80424-9 #### [facility] CLIA [id number] [address] [place] [address] [place] Platelets (Bld) [#/Vol] 378 10*3/uL Normal 150-400 [facility] Comment on above: Order Comment: Speci men Type: BLOOD SPECIMEN [facility] Address: [address] [place] [address] Performed By: #### 4 537-7, 23294-9 #### [facility] CLIA [id number] [address] [place] [address] [place] RBC (Bld) [#/Vol] 3.95 10*6/uL Normal 3.90-5.20 [facility] Comment on above: Order Comment: Speci men Type: BLOOD SPECIMEN [facility] Address: [address] [place], [place] [address] Performed By: #### 4 537-7, 89772-0 #### [facility] CLIA [id number] [address] [place] [address] [place] WBC (Bld) [#/Vol] 14.26 10*3/uL High 3.70-11.00 [facility] Comment on above: Order Comment: Speci men Type: BLOOD SPECIMEN [facility] Address: [address] [place], [place] [address] Performed By: #### 4 537-7, 98969-4 #### [facility] CLIA [id number] [address] [facility] [address] CONSULT PROGon 03-13-2023 CONSULT PROG HNO ID: [id number] Author: Robyn Bolton RPh Service: Pharmacy Author [...] there are questions. Robyn Bolton RPh Normal [facility] CONSULT PROG HNO ID: [id number] Author: Ev Pryor RPh Service: Pharmacy Author [...] questions, please contact Ev Pryor RPh at [phone]. Age: [age] year old Allergies: ALLERGIES Allergen [...] 9.34 Vancomycin Levels: No results found for: PINGORA Ev Pryor [facility] Normal [facility] CRP SerPl-mCncon 03-13-2023 CRP [Mass/Vol] 20.0 mg/dL High <0.9 [facility] Comment on above: Order Comment: Speci men Type: BLOOD SPECIMEN [facility] Address: [address] [place] [address] Performed By: #### 4 537-7, 84748-4 #### [facility] CLIA [id number] [address] [place] [address] [place] Comprehensive metabolic 2000 panelon 03-13-2023 Albumin [Mass/Vol] 3.6 g/dL Low 3.9-4.9 [facility] Comment on above: Order Comment: Speci men Type: BLOOD SPECIMEN [facility] Address: [address] [place], [place] [address] Performed By: #### 4 537-7, 31624-5 #### [facility] CLIA [id number] [address] [place] [address] [place] ALP [Catalytic activity/Vol] 101 U/L Normal 34-123 [facility] Comment on above: Order Comment: Speci men Type: BLOOD SPECIMEN [facility] Address: [address] [place], [place] [address] Performed By: #### 4 537-7, 45930-4 #### [facility] CLIA [id number] [address] [place] [address] [place] ALT [Catalytic activity/Vol] 22 U/L Normal 7-38 [facility] Comment on above: Order Comment: Speci men Type: BLOOD SPECIMEN [facility] Address: [address] [place], [place] [address] Performed By: #### 4 537-7, 53834-0 #### [facility] CLIA [id number] [address] [place] [address] [place] Anion gap [Moles/Vol] 14 mmol/L Normal 9-18 [facility] Comment on above: Order Comment: Speci men Type: BLOOD SPECIMEN [facility] Address: [address] [place], [place] [address] Performed By: #### 4 537-7, 49132-8 #### [facility] CLIA [id number] [address] [place] [address] [place] AST [Catalytic activity/Vol] 16 U/L Normal 13-35 [facility] Comment on above: Order Comment: Speci men Type: BLOOD SPECIMEN [facility] Address: [address] [place] [address] Performed By: #### 4 537-7, 51368-5 #### [facility] CLIA [id number] [address] [place] [address] [place] Bilirubin [Mass/Vol] 0.2 mg/dL Normal 0.2-1.3 [facility] Comment on above: Order Comment: Speci men Type: BLOOD SPECIMEN [facility] Address: [address] Performed By: #### 4 537-7, 03313-3 #### [facility] CLIA [id number] [address] [place] [address] [place] Calcium [Mass/Vol] 8.8 mg/dL Normal 8.5-10.2 [facility] Comment on above: Order Comment: Speci men Type: BLOOD SPECIMEN [facility] Address: [address] [place], [place] Performed By: #### 4 537-7, 39433-7 #### [facility] CLIA [id number] [address] [place] [address] [place] Chloride [Moles/Vol] 103 mmol/L Normal 97-105 [facility] Comment on above: Order Comment: Speci men Type: BLOOD SPECIMEN [facility] Address: [address] [place], [place] Performed By: #### 4 537-7, 09900-2 #### [facility] CLIA [id number] [address] [place] [address] [place] [place] CO2 [Moles/Vol] 19 mmol/L Low 22-30 [facility] Comment on above: Order Comment: Speci men Type: BLOOD SPECIMEN [facility] Address: [address] [address] Performed By: #### 4 537-7, 69392-3 #### [facility] [place] [id number] [address] [place] [address] [place] Creatinine [Mass/Vol] 0.77 mg/dL Normal 0.58-0.96 [facility] Comment on above: Order Comment: Tee men Type: BLOOD SPECIMEN [facility] Address: [address] [address] Performed By: #### 4 537-7, 64414-7 #### [facility] [place] [id number] [address] [place] [address] [place] ESTIMATED GLOMERULAR FILTRATION RATE 107 mL/min/1.73m??? Normal >=60 [facility] Comment on above: Order Comment: Tee men Type: BLOOD SPECIMEN [facility] Address: [address] [place] [address] Result Comment: Marisa mated Glomerular Filtration Rate [...] actual GFR. Performed By: #### 4 537-7, 55322-5 #### [facility] CLIA [id number] [address] [place] [address] [place] Glucose [Mass/Vol] 126 mg/dL High 74-99 [facility] Comment on above: Order Comment: Tee men Type: BLOOD SPECIMEN [facility] Address: [address] [place] [address] Result Comment: The [place] Diabetes Association (ADA) provides guidance for cutoff [...] Standards of Medical Care in Diabetes 2016, [place] [employer]. Diabetes Care. 2016.39(Suppl 1). Performed By: #### 4 537-7, 94460-8 #### [facility] CLIA [id number] [address] [place] [address] [place] Potassium [Moles/Vol] 3.3 mmol/L Low 3.7-5.1 [facility] Comment on above: Order Comment: Neemai maryam Type: BLOOD SPECIMEN [facility] Address: [address] [place] [address] Performed By: #### 4 537-7, 20924-1 #### [facility] CLIA [id number] [address] [place] [address] [place] Protein [Mass/Vol] 6.5 g/dL Normal 6.3-8.0 [facility] Comment on above: Order Comment: Tee francisco Type: BLOOD SPECIMEN [facility] Address: [address] [place] [address] Performed By: #### 4 537-7, 61739-5 #### [facility] CLIA [id number] [address] [place] [address] [place] Sodium [Moles/Vol] 136 mmol/L Normal 136-144 [facility] Comment on above: Order Comment: Neemai men Type: BLOOD SPECIMEN [facility] Address: [address] Performed By: #### 4 537-7, 99842-3 #### [facility] CLIA [id number] [address] [id number] [facility] Urea nitrogen [Mass/Vol] 8 mg/dL Normal 7-21 [facility] Comment on above: Order Comment: Speci men Type: BLOOD SPECIMEN [facility] Address: [place] [address] Performed By: #### 4 537-7, 16660-0 #### [facility] CLIA [id number] [facility] [id number] [facility] ED NOTEon 03-13-2023 ED NOTE HNO ID: [id number] Author: Kj Carter RN Service: Emergency Medicine Author Type: Registered Nurse Type: ED Notes Filed: 03/13/2023 11:48 AM Note Text: Pt was to be a tranfers from outside hospital for admission, left AMA because felt that it was taking to long for transfer. Elevated WBC, back pain, nausea and vomiting, no diarrhea, no SOB 8 weeks . Normal [facility] ED PROV NOTEon 03-13-2023 ED PROV NOTE HNO ID: [id number] Author: Kelli Musa MD Service: Emergency Medicine [...] fevers, she opted to report to the [place] ED. While there, she was noted to [...] Abnormal; Notable for the following components: Specific [place], Ur 1.032 (*) 1.005 - 1.030 Protein, Urine 1+ (*) Trace, (more content not included)... Normal [facility] ESR Westergren method (Bld) [Velocity]on 03-13-2023 ESR (Bld) [Velocity] 65 mm/h High 0-20 [facility] Comment on above: Order Comment: Speci men Type: BLOOD SPECIMEN [facility] Address: [address] [place], [place] [id number] Performed By: #### 4 537-7, 17519-4 #### [facility] CLIA [id number] [address] [facility] [place] [address] [place] Ferritin SerPl-mCncon 2022 Ferritin [Mass/Vol] 149.0 ng/mL Normal 14.7-205.1 [facility] Comment on above: Order Comment: Speci men Type: BLOOD SPECIMEN [facility] Address: [address] [id number] Performed By: #### 1 9123-9, 60422-1 #### [facility] CLIA [id number] [address] [facility] [place] [address] [place] HISTORY PHYSICALon HISTORY PHYSICAL HNO ID: [id number] Author: Manoj Ramos MD Service: General Internal Medicine Author Type: Physician Type: HANDP Filed: 03/13/2023 8:37 PM Note Text: HISTORY AND PHYSICAL GENERAL INTERNAL MEDICINE After 5 PM on weekdays and after 3 PM on weekends [employer] [facility] [phone] Admit Date: 03/13/2023 SERVICE DATE: 03/13/2023 SERVICE [...] flank pain, and she was transferred to [facility] ED. After drawing blood and taking [...] without mu (more content not included)... Normal [facility] Lipase SerPl-cCncon 03-13-20 Lipase [Catalytic activity/Vol] 19 U/L Normal 16-61 [facility] Comment on above: Order Comment: Speci men Type: BLOOD SPECIMEN [facility] Address: [address] [place] [address] Performed By: #### 4 537-7, 60086-6 #### [facility] CLIA [id number] [address] [facility] [place] [address] [place] NURSING PROGon 03-13-2023 NURSING PROG HNO ID: [id number] Author: Mini Kaplan RN Service: ? Author Type: Registered Nurse Type: Nursing Progress Note Filed: 03/13/2023 5:11 PM Note Text: Transfer Note: PATIENT NAME: Qian Clements Patient [place] [address] [place] [address] [place] [address] [place] [address] Patient transferred into room/unit G80-4 in stable condition. Actions taken: Patient belongings with patient, bed low and locked, side rails up X2, and call light within reach. Normal [facility] Urinalysis complete pnl Uron 03-13-2023 Urinalysis [...] j carlos: ORGANISM ID: 1 Lactobacillus jensenii [place] count unreliable due to antimicrobial inhibition No further workup Normal [facility] Comment on above: Order Comment: Speci men Type: URINE SPECIMEN[facility]ing [facility] Address: [address] [place] [address] Performed By: #### 2 4356-8 ####[facility] [id number] [place] [address] [place] XR CHEST 1V [...] Stable nonenlarged cardiomediastinal silhouette. IMPRESSION: See result. 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 Operator: JAYMIE Transcribe Date/Time: Mar 13 2023 1:50P Dictated by : YULY GAONA MD This examination was interpreted and the report reviewed and electronically signed by: YULY GAONA MD on Mar 13 2023 1:51PM EST [id number] Normal [facility] CBC with Auto Differentialon 03-07-2023 Basophils [...] Low 36 - 46 % [facility] Hemoglobin (Bld) [Mass/Vol] 11.3 g/dL Low 12.0 - 16.0 g/dL [facility] Interpretation and review of laboratory results Abnormal [facility] Lymphocytes/100 WBC (Bld) 14 % Low 15 - 40 % [facility] Lymphocytes/100 WBC (Bld) 1.30 % [facility] MCH (RBC) [Entitic mass] 27.2 pg 26 - 34 pg [facility] MCHC (RBC) [Mass/Vol] 33.4 g/dL 31 - 37 g/dL [facility] MCV (RBC) [Entitic vol] 81.4 fL 80 - 100 fL [facility] Monocytes/100 WBC (Bld) 6 % 4 - 8 % [facility] Monocytes/100 WBC (Bld) 0.60 % [facility] Neutrophils/100 WBC (Bld) 80 % High 47 - 75 % [facility] Platelets (Bld) [#/Vol] 407 10*3/uL [facility] RBC (Bld) [#/Vol] 4.17 10*6/uL 4.0 - 5.2 m/uL [facility] Segmented neutrophils/100 WBC (Bld) 7.50 % High [facility] WBC other (Bld) [#/Vol] 9.4 [facility] CMPon 07-17-2023 Albumin [Mass/Vol] 3.8 g/dL 3.5 - 5.2 g/dL [facility] ALP [Catalytic activity/Vol] 81 U/L 35 - 104 U/L [facility] ALT [Catalytic activity/Vol] 8 U/L 5 - 33 U/L [facility] Anion gap [Moles/Vol] 11 mmol/L 9 - 17 mmol/L [facility] AST [Catalytic activity/Vol] 10 U/L NINF - 32 U/L [facility] Bilirubin [Mass/Vol] 0.3 mg/dL 0.3 - 1 .2 mg/dL [facility] Calcium [Mass/Vol] 8.8 mg/dL 8.6 - 10. 4 mg/dL [facility] Chloride [Moles/Vol] 103 mmol/L 98 - 10 7 mmol/L [facility] CO2 [Moles/Vol] 22 mmol/L 20 - 31 mmol/L [facility] Creatinine [Mass/Vol] 0.7 mg/dL 0.5 - 0.9 mg/dL [facility] GFR/1.73 sq M.predicted MDRD (S/P/Bld) [Vol rate/Area] - [facility] Comment on above: These results are not [...] 131 mg/dL High 70 - 99 mg/dL [facility] Interpretation and review of laboratory results Abnormal [facility] Potassium [Moles/Vol] 4.1 mmol/L 3.7 - 5.3 mmol/L [facility] Protein [Mass/Vol] 6.7 g/dL 6.4 - 8.3 g/dL [facility] Sodium [Moles/Vol] 136 mmol/L 135 - 144 mmol/L [facility] Urea nitrogen [Mass/Vol] 8 mg/dL 6 - 20 mg/dL [facility] Urea nitrogen/Creatinine [Mass ratio] 11 mg/mg 9 - 20 [facility] Microscopic Urinalysison - [facility] Bacteria LM Ql (Urine sed) RARE Abnormal None [facility] Epithelial cells LM.HPF (Urine sed) [#/Area] 20 TO 50 /HPF [facility] Interpretation and review of laboratory results Abnormal [facility] RBC LM.HPF (Urine sed) [#/Area] 0 TO 2 [facility] WBC LM.HPF (Urine sed) [#/Area] NONE SEEN 0 /HPF [facility] , Urineon 3 HCG ( test) Ql (U) Positive Abnormal NEGATIVE [facility] Comment on above: If HCG results do no t concur with clinical observations, additional testing to confirm result is recommended. This test is not labeled for use as a tumor marker. Interpretation and review of laboratory results Abnormal [facility] Urinalysison 03-07-2023 Bilirubin Ql (U) Negative NEGATIVE [facility] Clarity (U) Clear Clear [facility] Color (U) Yellow Yellow [facility] Comment [facility] Glucose Test strip (U) [Mass/Vol] Negative NEGATIVE mg/dL [facility] Hemoglobin Auto test strip Ql (U) TRACE Abnormal NEGATIVE [facility] Interpretation and review of laboratory results Abnormal [facility] Ketones (U) [Mass/Vol] Negative NEGATIVE mg/dL [facility] Leukocyte esterase Test strip Ql (U) Negative NEGATIVE [facility] Nitrite Ql (U) Negative NEGATIVE [facility] pH (U) 7.0 [pH] 5.0 - 8.0 [facility] Protein (U) [Mass/Vol] Negative NEGATIVE mg/dL [facility] Specific gravity (U) [Rel density] 1.015 1.005 - 1.030 [facility] Urobilinogen Qn (U) Normal 0.0 - 1. 0 EU/dL [facility] US PELVIS AND TRANSVAGon US PELVIS AND [...] by: PILAR DOBSON Date: 2023-01-03 10:47 Normal [facility] Strep Screen Group A Throato n 11-14-2022 S. pyogenes Ag Ql (Throat) Negative NEGATIVE [facility] Comment on above: Rapid Strep A negati ve. A negative Rapid Group A Strep Screen result does not rule out the possibility of Group A Streptococci in the specimen. A Group A Strep DNA test is available upon request. Source .THROAT SWAB [facility] Drug Scr, Abuse, Uron 2021 Amphetamine(s),Ur Negative Normal [facility] Comment on above: Result Comment: (Positive cutoff 1000 ng/mL) Performed By: #### D AU, URTPRT #### [employer] [address] [place] [address] Emergency Care Tech: Gino Wing MD Barbiturate(s),Ur Negative Normal [facility] Comment on above: Result Comment: (Positive cutoff 200 ng/mL) Performed By: #### D AU, URTPRT #### [employer] [address] [place] [address] Emergency Care Tech: Gino Wing MD Benzodiazepine(s) Negative Normal [facility] Comment on above: Result Comment: (Positive cutoff 200 ng/mL) Performed By: #### Lydia AU, URTPRT #### [facility] [address] [place] [address] Emergency Care Tech: Gino Wing MD Cannabinoid(s),Ur Negative Normal [facility] Comment on above: Result Comment: (Positive cutoff 50 ng/mL) Performed By: #### Lydia AU, URTPRT #### [employer] [address] [place] [address] Emergency Care Tech: Gino Wing MD Cocaine Metabolite Negative Normal [facility]G [facility] Comment on above: Result Comment: (Positive cutoff 300 ng/mL) Performed By: #### Lydia CALDWELL, URTPRT #### [facility] [address] [place] [address] Emergency Care Tech: Gino Wing MD Fentanyl, Urine Positive Abnormal [facility] Comment on above: Result Comment: (Positive cutoff 5 ng/ml) Performed By: #### Lydia CALDWELL, URTPRT #### [facility] [address] [place] [address] Emergency Care Tech: Gino Wing MD Interpretive Info Assay provides medic al screening only. The absence of expected drug(s) and/or Normal [facility] Comment on above: Result Comment: meta bolite(s) may indicate diluted or adulterated urine, limitations of testing or timing of collection. Testing for legal purposes should be confirmed by another method. To request confirmation of test result, please call the lab within 7 days of sample submission. Performed By: #### Lydia AU, URTPRT #### [facility] [address] [place] [address] Emergency Care Tech: Gino Wing MD Methadone Ql (U) Negative Normal [facility] Comment on above: Result Comment: (Positive cutoff 300 ng/mL) Performed By: #### D AU, URTPRT #### [employer] [address] [place] [address] Emergency Care Tech: Gino Wing MD Opiate(s), Ur Negative Normal NEG [facility] Comment on above: Result Comment: (Positive cutoff 300 ng/mL) Performed By: #### Lydia CALDWELL, URTPRT #### [facility] [address] [place] [address] Emergency Care Tech: Gino Wing MD Oxycodone, Urine Positive Abnormal [facility] Comment on above: Result Comment: (Positive cutoff 100 ng/mL) Performed By: #### Lydia CALDWELL, URTPRT #### [employer] [address] [place] [address] Emergency Care Tech: Gino Wing MD Phencyclidine, Ur Negative Normal [facility] Comment on above: Result Comment: (Positive cutoff 25 ng/mL) Performed By: #### Lydia CALDWELL, URTPRT #### [employer] [address] [place] [address] Emergency Care Tech: Gino Wing MD SURGICAL PATHOLOGY REPORTon 05-27-2022 [...] SURGICAL PATHOLOGY CONSULTATION Patient Name: QIAN CLEMENTS [facility] Rec: [id number] Path Number: [id number] [facility] [employer] ANATOMIC PATHOLOGY [address] [place] [phone] [facility] CBCon 05-26-2022 Erythrocyte distribution width (RBC) [Ratio] 12.4 % Normal 11.8-14.4 [facility] Comment on above: Performed By: #### C DHARA, CP #### [employer] [address] [place] [phone] Emergency Care Tech: Gino Wing MD Hematocrit (Bld) [Volume fraction] 28.6 % Low 36.3-47.1 [facility] Comment on above: Performed By: #### C DHARA, CP #### [employer] [address] [place] [phone] Emergency Care Tech: Gino Wing MD Hemoglobin (Bld) [Mass/Vol] 9.6 g/dL Low 11.9-15.1 [facility] Comment on above: Performed By: #### C DHARA, CP #### [facility] [address] [place] [phone] Emergency Care Tech: Gino Wing MD MCH (RBC) [Entitic mass] 30.0 pg Normal 25.2-33.5 [facility] Comment on above: Performed By: #### C DHARA, CP #### [address] [address] Emergency Care Tech: Gino Wing MD MCHC (RBC) [Mass/Vol] 33.6 g/dL Normal 28.4-34.8 [facility] Comment on above: Performed By: #### C BC, CP #### [address] [address] Emergency Care Tech: Gino Wing MD MCV (RBC) [Entitic vol] 89.4 fL Normal 82.6-102.9 [facility] Comment on above: Performed By: #### C BC, CP #### [address] [address] Emergency Care Tech: Gino Wing MD NRBC Automated 0.0 per 100 WBC Normal 0.0 [facility] Comment on above: Performed By: #### C BC, CP #### [address] [address] Emergency Care Tech: Gino Wing MD Platelet mean volume (Bld) [Entitic vol] 9.6 fL Normal 8.1-13.5 [facility] Comment on above: Performed By: #### C BC, CP #### [address] [address] Emergency Care Tech: Gino Wing MD Platelets (Bld) [#/Vol] 321 10*3/uL Normal 138-453 [facility] Comment on above: Performed By: #### C BC, CP #### [address] [address] Emergency Care Tech: Gino Wing MD RBC (Bld) [#/Vol] 3.20 10*6/uL Low 3.95-5.11 [facility] Comment on above: Performed By: #### C BC, CP #### [address] [phone] Emergency Care Tech: Gino Wing MD WBC (Bld) [#/Vol] 13.1 10*3/uL High 3.5-11.3 [facility] Comment on above: Performed By: #### C DHARA, CP #### [facility] [address] [place], [place] [id number] Emergency Care Tech: Gino Wing MD Hematocrit (Bld) [Volume fraction] 28.6 % Low 36.3 - 47.1 % [facility] Hemoglobin (Bld) [Mass/Vol] 9.6 g/dL Low 11.9 - 15.1 g/dL [facility] Interpretation and review of laboratory results Abnormal [facility] MCH (RBC) [Entitic mass] 30.0 pg 25.2 - 33.5 pg [facility] MCHC (RBC) [Mass/Vol] 33.6 g/dL 28.4 - 34.8 g/dL [facility] MCV (RBC) [Entitic vol] 89.4 fL 82.6 - 102.9 fL [facility] NRBC Automated 0.0 0.0 per 100 WBC [facility] Platelet distribution width (Bld) [Ratio] 12.4 % 11.8 - 14.4 % [facility] Platelet mean volume (Bld) [Entitic vol] 9.6 fL 8.1 - 13.5 fL [facility] Platelets (Bld) [#/Vol] 321 10*3/uL [facility] RBC (Bld) [#/Vol] 3.20 10*6/uL Low 3.95 - 5.1 1 m/uL [facility] WBC (Bld) [#/Vol] 13.1 10*3/uL High [facility] Comp Metabolic Profon 2021 Bilirubin [Mass/Vol] mg/dL Low 0.3-1.2 [facility] Comment on above: Performed By: #### C DHARA, CP #### [facility] [address] [place], [place] [phone] Emergency Care Tech: Gino Wing MD Albumin [Mass/Vol] 2.4 g/dL Low 3.5-5.2 [facility] Comment on above: Performed By: #### C BC, CP #### [facility] [address] [place] [address] Emergency Care Tech: Gino Wing MD Albumin/Glob Ratio 0.9 Low 1.0-2.5 [facility] Comment on above: Performed By: #### C BC, CP #### [address] [address] Emergency Care Tech: Gino Wing MD Alkaline Phos 79 U/L Normal 35-104 [facility] Comment on above: Performed By: #### C BC, CP #### [address] [address] Emergency Care Tech: Gino Wing MD ALT [Catalytic activity/Vol] 10 U/L Normal 5-33 [facility] Comment on above: Performed By: #### C BC, CP #### [address] [address] Emergency Care Tech: Gino Wing MD Anion gap [Moles/Vol] 12 mmol/L Normal 9-17 [facility] Comment on above: Performed By: #### C BC, CP #### [address] [address] Emergency Care Tech: Gino Wing MD AST [Catalytic activity/Vol] 20 U/L Normal <32 [facility] Comment on above: Performed By: #### C BC, CP #### [facility] [address] [place] [address] Emergency Care Tech: Gino Wing MD Calcium [Mass/Vol] 6.6 mg/dL Low 8.6-10.4 [facility] Comment on above: Performed By: #### C BC, CP #### [facility] [address] [place] [address] Emergency Care Tech: Gino Wing MD Chloride [Moles/Vol] 101 mmol/L Normal 98-107 [facility] Comment on above: Performed By: #### C BC, CP #### [facility] [address] [place] [address] Emergency Care Tech: Gino Wing MD CO2 [Moles/Vol] 19 mmol/L Low 20-31 [facility] Comment on above: Performed By: #### C BC, CP #### [facility] [address] [place] [address] Emergency Care Tech: Gino Wing MD Creatinine [Mass/Vol] 0.60 mg/dL Normal 0.50-0.90 [facility] Comment on above: Performed By: #### C BC, CP #### [address] [address] Emergency Care Tech: Gino Wing MD GFR/1.73 sq M.predicted among non-blacks MDRD (S/P/Bld) [Vol rate/Area] mL/min/{1.73_m2} Normal >60 [facility] Comment on above: Result [...] Performed By: #### C BC, CP #### [address] [address] Emergency Care Tech: Gino Wing MD Glucose [Mass/Vol] 103 mg/dL High 70-99 [facility] Comment on above: Performed By: #### C BC, CP #### [facility] [address] [place] [address] Emergency Care Tech: Gino Wing MD Potassium [Moles/Vol] 4.3 mmol/L Normal 3.7-5.3 [facility] Comment on above: Performed By: #### C BC, CP #### [address] [address] Emergency Care Tech: Gino Wing MD Protein [Mass/Vol] 5.2 g/dL Low 6.4-8.3 [facility] Comment on above: Performed By: #### C BC, CP #### [address] [address] Emergency Care Tech: Gino Wing MD Sodium [Moles/Vol] 132 mmol/L Low 135-144 [facility] Comment on above: Performed By: #### C BC, CP #### [address] [address] Emergency Care Tech: Gino Wing MD Urea nitrogen [Mass/Vol] 6 mg/dL Normal 6-20 [facility] Comment on above: Performed By: #### C BC, CP #### [address] [address] Emergency Care Tech: Gino Wing MD ALT [Catalytic activity/Vol] U/L Low 5-33 [facility] Comment on above: Performed By: #### C DP, CP #### [address] [address] Emergency Care Tech: Gino Wing MD Bilirubin [Mass/Vol] mg/dL Low 0.3-1.2 [facility] Comment on above: Performed By: #### C DP, CP #### [facility] [address] [place] [address] Emergency Care Tech: Gino Wing MD Albumin [Mass/Vol] 3.1 g/dL Low 3.5-5.2 [facility] Comment on above: Performed By: #### C DP, CP #### [address] [address] Emergency Care Tech: Gino Wing MD Albumin/Glob Ratio 1.1 Normal 1.0-2.5 [facility] Comment on above: Performed By: #### C DP, CP #### [address] [address] Emergency Care Tech: Gino Wing MD Alkaline Phos 82 U/L Normal 35-104 [facility] Comment on above: Performed By: #### C DP, CP #### [address] [address] Emergency Care Tech: Gino Wing MD Anion gap [Moles/Vol] 13 mmol/L Normal 9-17 [facility] Comment on above: Performed By: #### C DP, CP #### [address] [address] Emergency Care Tech: Gino Wing MD AST [Catalytic activity/Vol] 17 U/L Normal <32 [facility] Comment on above: Performed By: #### C DP, CP #### [address] [address] Emergency Care Tech: Gino Wing MD Calcium [Mass/Vol] 6.6 mg/dL Low 8.6-10.4 [facility] Comment on above: Performed By: #### C DP, CP #### [address] [address] Emergency Care Tech: Gino Wing MD Chloride [Moles/Vol] 102 mmol/L Normal 98-107 [facility] Comment on above: Performed By: #### C DP, CP #### [address] [address] Emergency Care Tech: Gino Wing MD CO2 [Moles/Vol] 19 mmol/L Low 20-31 [facility] Comment on above: Performed By: #### C DP, CP #### [address] [address] Emergency Care Tech: Gino Wing MD Creatinine [Mass/Vol] 0.57 mg/dL Normal 0.50-0.90 [facility] Comment on above: Performed By: #### C DP, CP #### [address] [address] Emergency Care Tech: Gino Wing MD GFR/1.73 sq M.predicted among non-blacks MDRD (S/P/Bld) [Vol rate/Area] mL/min/{1.73_m2} Normal >60 [facility] Comment on above: Result [...] Performed By: #### C DP, CP #### [address] [address] Emergency Care Tech: Gino Wing MD Glucose [Mass/Vol] 109 mg/dL High 70-99 [facility] Comment on above: Performed By: #### C DP, CP #### [address] [address] Emergency Care Tech: Gino Wing MD Potassium [Moles/Vol] 4.2 mmol/L Normal 3.7-5.3 [facility] Comment on above: Performed By: #### C DP, CP #### [address] [address] Emergency Care Tech: Gino Wing MD Protein [Mass/Vol] 6.0 g/dL Low 6.4-8.3 [facility] Comment on above: Performed By: #### C DP, CP #### [facility] [address] [place], [place] [id number] Emergency Care Tech: Gino Wing MD Sodium [Moles/Vol] 134 mmol/L Low 135-144 [facility] Comment on above: Performed By: #### C DP, CP #### [facility] [address] [place], [place] [phone] Emergency Care Tech: Gino Wing MD Urea nitrogen [Mass/Vol] 6 mg/dL Normal 6-20 [facility] Comment on above: Performed By: #### C DP, CP #### [facility] [address] [place], [place] [phone] Emergency Care Tech: Gino Wing MD Comprehensive Metabolic Pane [facility] 05-26-2022 Albumin [Mass/Vol] 2.4 g/dL Low 3.5 - 5.2 g/dL [facility] Albumin/Globulin [Mass ratio] 0.9 {ratio} Low 1 - 2.5 [facility] ALP (Bld) [Catalytic activity/Vol] 79 U/L 35 - 104 U/L [facility] ALT [Catalytic activity/Vol] 10 U/L 5 - 33 U/L [facility] Anion gap [Moles/Vol] 12 mmol/L 9 - 17 mmol/L [facility] AST [Catalytic activity/Vol] 20 U/L NINF - 32 U/L [facility] Bilirubin [Mass/Vol] mg/dL Low 0.3 - 1 .2 mg/dL [facility] Calcium [Mass/Vol] 6.6 mg/dL Low 8.6 - 10. 4 mg/dL [facility] Chloride [Moles/Vol] 101 mmol/L 98 - 10 7 mmol/L [facility] CO2 [Moles/Vol] 19 mmol/L Low 20 - 31 mmol/L [facility] Creatinine [Mass/Vol] 0.6 mg/dL 0.5 - 0.9 mg/dL [facility] GFR/1.73 sq M.predicted MDRD (S/P/Bld) [Vol rate/Area] - PINF [facility] Comment on above: Effective May 24, [...] 103 mg/dL High 70 - 99 mg/dL [facility] Interpretation and review of laboratory results Abnormal [facility] Potassium [Moles/Vol] 4.3 mmol/L 3.7 - 5.3 mmol/L [facility] Protein [Mass/Vol] 5.2 g/dL Low 6.4 - 8.3 g/dL [facility] Sodium [Moles/Vol] 132 mmol/L Low 135 - 144 mmol/L [facility] Urea nitrogen (BldV) [Mass/Vol] 6 mg/dL 6 - 20 mg/dL [facility] Protein / Creatinine Ratio, Urineon 05-26-2022 Creatinine, Ur 33.9 mg/dL 28 - 217 mg/dL [facility] Interpretation and review of laboratory results Abnormal [facility] Protein (U) [Mass/Vol] 26 mg/dL [facility] Comment on above: No normal range esta blished. Urine Total Protein Creatinine Ratio 0.77 High 0 - 0.2 [facility] Protein,Tot,[place] 2021 Creatinine [Mass/Vol] 33.9 mg/dL Normal 28.0-217.0 [facility] Comment on above: Performed By: #### D AU, URTPRT #### [facility] [place] [address] Emergency Care Tech: Gino Wing MD Tot Prot. Conc. 26 mg/dL Normal [facility] Comment on above: Result Comment: No n ormal range established. Performed By: #### D JAVI URTPRT #### [facility] [address] [place] [address] Emergency Care Tech: Gino Wing MD TP/Cre Ratio 0.77 High 0.00-0.20 [facility] Comment on above: Performed By: #### D JAVI URTPRT #### [facility] [address] [place] [address] Emergency Care Tech: Gino Wing MD T.pallidum Ab Screenon 05-26 T.pallidum Ab Screen Non-Reactive Normal NR [facility] Comment on above: Result Comment: T. pallidum antibodies are not detected. There is no serological evidence of infection with T. pallidum (early primary syphilis cannot be excluded). Retest in 2-4 weeks if syphilis is clinically suspect. Performed By: #### C DHARA CP #### [address] [address] Emergency Care Tech: Gino Wing MD APTTon 05-25-2022 aPTT Coag (Bld) [Time] 24.7 s Normal 20.5-30.5 [facility] Comment on above: Result Comment: IV Heparin Therapy Range: 48.6-77.8 Performed By: #### C DHARA, CP #### [address] [address] Emergency Care Tech: Gino Wing MD aPTT Coag (Bld) [Time] 24.7 s [facility] Comment on above: IV Heparin Therapy Range: 48.6-77.8 [facility] 05-25-2022 Erythrocyte distribution width (RBC) [Ratio] 12.6 % Normal 11.8-14.4 [facility] Comment on above: Performed By: #### M G, FIB, LD, URI, HAPT, CBC, CP, PTT, PT #### [address] [address] Emergency Care Tech: Gino Wing MD Hematocrit (Bld) [Volume fraction] 31.0 % Low 36.3-47.1 [facility] Comment on above: Performed By: #### M G, FIB, LD, URI, HAPT, CBC, CP, PTT, PT #### [address] [address] Emergency Care Tech: Gino Wing MD Hemoglobin (Bld) [Mass/Vol] 10.4 g/dL Low 11.9-15.1 [facility] Comment on above: Performed By: #### M G, FIB, LD, URI, HAPT, CBC, CP, PTT, PT #### [address] [address] Emergency Care Tech: Gino Wing MD MCH (RBC) [Entitic mass] 29.5 pg Normal 25.2-33.5 [facility] Comment on above: Performed By: #### M G, FIB, LD, URI, HAPT, CBC, CP, PTT, PT #### [address] [address] Emergency Care Tech: Gino Wing MD MCHC (RBC) [Mass/Vol] 33.5 g/dL Normal 28.4-34.8 [facility] Comment on above: Performed By: #### M G, FIB, LD, URI, HAPT, CBC, CP, PTT, PT #### [address] [id number] Emergency Care Tech: Gino Wing MD MCV (RBC) [Entitic vol] 87.8 fL Normal 82.6-102.9 [facility] Comment on above: Performed By: #### M G, FIB, LD, URI, HAPT, CBC, CP, PTT, PT #### [address] [place] [address] Emergency Care Tech: Gino Wing MD NRBC Automated 0.0 per 100 WBC Normal 0.0 [facility] Comment on above: Performed By: #### M G, FIB, LD, URI, HAPT, CBC, CP, PTT, PT #### [address] [address] Emergency Care Tech: Gino Wing MD Platelet mean volume (Bld) [Entitic vol] 9.6 fL Normal 8.1-13.5 [facility] Comment on above: Performed By: #### M G, FIB, LD, URI, HAPT, CBC, CP, PTT, PT #### [address] [address] Emergency Care Tech: Gino Wing MD Platelets (Bld) [#/Vol] 343 10*3/uL Normal 138-453 [facility] Comment on above: Performed By: #### M G, FIB, LD, URI, HAPT, CBC, CP, PTT, PT #### [address] [address] Emergency Care Tech: Gino Wing MD RBC (Bld) [#/Vol] 3.53 10*6/uL Low 3.95-5.11 [facility] Comment on above: Performed By: #### M G, FIB, LD, URI, HAPT, CBC, CP, PTT, PT #### [address] [address] Emergency Care Tech: Gino Wing MD WBC (Bld) [#/Vol] 13.2 10*3/uL High 3.5-11.3 [facility] Comment on above: Performed By: #### M G, FIB, LD, URI, HAPT, CBC, CP, PTT, PT #### [address] [address] Emergency Care Tech: Gino Wing MD Hematocrit (Bld) [Volume fraction] 31.0 % Low 36.3 - 47.1 % [facility] Hemoglobin (Bld) [Mass/Vol] 10.4 g/dL Low 11.9 - 15.1 g/dL [facility] Interpretation and review of laboratory results Abnormal [facility] MCH (RBC) [Entitic mass] 29.5 pg 25.2 - 33.5 pg [facility] MCHC (RBC) [Mass/Vol] 33.5 g/dL 28.4 - 34.8 g/dL [facility] MCV (RBC) [Entitic vol] 87.8 fL 82.6 - 102.9 fL [facility] NRBC Automated 0.0 0.0 per 100 WBC [facility] Platelet distribution width (Bld) [Ratio] 12.6 % 11.8 - 14.4 % [facility] Platelet mean volume (Bld) [Entitic vol] 9.6 fL 8.1 - 13.5 fL [facility] Platelets (Bld) [#/Vol] 343 10*3/uL [facility] RBC (Bld) [#/Vol] 3.53 10*6/uL Low 3.95 - 5.1 1 m/uL [facility] WBC (Bld) [#/Vol] 13.2 10*3/uL High [facility] CBC with Auto Differentialon 05-25-2022 Absolute Eos # [facility] Absolute Immature Granulocyte 0.17 [facility] Absolute Lymph # 2.57 [facility] Absolute [place] # 1.40 High [facility] RS [facility] Basophils (Bld) [#/Vol] 0.03 10*3/uL [facility] Basophils/100 WBC (Bld) 0 % 0 - 2 % [facility] Eosinophils/100 WBC (Bld) 0 % Low 1 - 4 % [facility] Hematocrit (Bld) [Volume fraction] 29.8 % Low 36.3 - 47.1 % [facility] Hemoglobin (Bld) [Mass/Vol] 10.1 g/dL Low 11.9 - 15.1 g/dL [facility] Immature granulocytes/100 WBC (Bld) 1 % High 0 [facility] Interpretation and review of laboratory results Abnormal [facility] Lymphocytes/100 WBC (Bld) 15 % Low 24 - 43 % [facility] MCH (RBC) [Entitic mass] 29.8 pg 25.2 - 33.5 pg [facility] MCHC (RBC) [Mass/Vol] 33.9 g/dL 28.4 - 34.8 g/dL [facility] MCV (RBC) [Entitic vol] 87.9 fL 82.6 - 102.9 fL [facility] Monocytes/100 WBC (Bld) 8 % 3 - 12 % [facility] NRBC Automated 0.0 0.0 per 100 WBC [facility] Platelet distribution width (Bld) [Ratio] 12.7 % 11.8 - 14.4 % [facility] Platelet mean volume (Bld) [Entitic vol] 9.4 fL 8.1 - 13.5 fL [facility] Platelets (Bld) [#/Vol] 350 10*3/uL [facility] RBC (Bld) [#/Vol] 3.39 10*6/uL Low 3.95 - 5.1 1 m/uL [facility] Segmented neutrophils/100 WBC (Bld) 76 % High 36 - 65 % [facility] Segs Absolute 12.92 High [facility] WBC (Bld) [#/Vol] 17.1 10*3/uL High [facility] CBC with Diffon 05-25-2022 Abs. Basophil 0.03 k/uL Normal 0.00-0.20 [facility] Comment on above: Performed By: #### C DP, CP #### [employer] [address] [place] [address] Emergency Care Tech: Gino Wing MD Abs. Eosinophil <0.03 Normal 0.00-0.44 [facility] Comment on above: Performed By: #### C DP, CP #### [address] [address] Emergency Care Tech: Gino Wing MD Abs.Imm.Granulocyte 0.17 k/uL Normal 0.00-0.30 [facility] Comment on above: Performed By: #### C DP, CP #### [address] [address] Emergency Care Tech: Gino Wing MD Abs.Neutrophil (Seg) 12.92 k/uL High 1.50-8.10 [facility] Comment on above: Performed By: #### C DP, CP #### [address] [address] Emergency Care Tech: Gino Wing MD Basophils/100 WBC (Bld) 0 % Normal 0-2 [facility] Comment on above: Performed By: #### C DP, CP #### [address] [address] Emergency Care Tech: Gino Wing MD Eosinophils/100 WBC (Bld) 0 % Low 1-4 [facility] Comment on above: Performed By: #### C DP, CP #### [address] [address] Emergency Care Tech: Gino Wing MD Erythrocyte distribution width (RBC) [Ratio] 12.7 % Normal 11.8-14.4 [facility] Comment on above: Performed By: #### C DP, CP #### [address] [address] Emergency Care Tech: Gino Wing MD Hematocrit (Bld) [Volume fraction] 29.8 % Low 36.3-47.1 [facility] Comment on above: Performed By: #### C DP, CP #### [address] [address] Emergency Care Tech: Gino Wing MD Hemoglobin (Bld) [Mass/Vol] 10.1 g/dL Low 11.9-15.1 [facility] Comment on above: Performed By: #### C DP, CP #### [address] [address] Emergency Care Tech: Gino Wing MD Immature granulocytes/100 WBC (Bld) 1 % High 0 [facility] Comment on above: Performed By: #### C DP, CP #### [address] [address] Emergency Care Tech: Gino Wing MD Lymphocytes (Bld) [#/Vol] 2.57 10*3/uL Normal 1.10-3.70 [facility] Comment on above: Performed By: #### C DP, CP #### [address] [address] Emergency Care Tech: Gino Wing MD Lymphocytes/100 WBC (Bld) 15 % Low 24-43 [facility] Comment on above: Performed By: #### C DP, CP #### [address] [address] Emergency Care Tech: Gino Wign MD MCH (RBC) [Entitic mass] 29.8 pg Normal 25.2-33.5 [facility] Comment on above: Performed By: #### C DP, CP #### [address] [address] Emergency Care Tech: Gino Wing MD MCHC (RBC) [Mass/Vol] 33.9 g/dL Normal 28.4-34.8 [facility] Comment on above: Performed By: #### C DP, CP #### [address] [address] Emergency Care Tech: Gnio Wing MD MCV (RBC) [Entitic vol] 87.9 fL Normal 82.6-102.9 [facility] Comment on above: Performed By: #### C DP, CP #### [address] [address] Emergency Care Tech: Gino Wing MD Monocytes (Bld) [#/Vol] 1.40 10*3/uL High 0.10-1.20 [facility] Comment on above: Performed By: #### C DP, CP #### [address] [address] Emergency Care Tech: Gino Wing MD Monocytes/100 WBC (Bld) 8 % Normal 3-12 [facility] Comment on above: Performed By: #### C DP, CP #### [address] [address] Emergency Care Tech: Gino Wing MD Neutrophil (Seg) 76 % High 36-65 [facility] Comment on above: Performed By: #### C DP, CP #### [address] [address] Emergency Care Tech: Gino Wing MD NRBC Automated 0.0 per 100 WBC Normal 0.0 [facility] Comment on above: Performed By: #### C DP, CP #### [address] [address] Emergency Care Tech: Gino Wing MD Platelet mean volume (Bld) [Entitic vol] 9.4 fL Normal 8.1-13.5 [facility] Comment on above: Performed By: #### C DP, CP #### [address] [address] Emergency Care Tech: Gino Wing MD Platelets (Bld) [#/Vol] 350 10*3/uL Normal 138-453 [facility] Comment on above: Performed By: #### C DP, CP #### [address] [id number] Emergency Care Tech: Gino Wing MD RBC (Bld) [#/Vol] 3.39 10*6/uL Low 3.95-5.11 [facility] Comment on above: Performed By: #### C DP, CP #### [facility] [address] [place], [place] [id number] Emergency Care Tech: Gino Wing MD WBC (Bld) [#/Vol] 17.1 10*3/uL High 3.5-11.3 [facility] Comment on above: Performed By: #### C DP, CP #### [facility] [address] [place], [place] [phone] Emergency Care Tech: Gino Wing MD CT HEAD WO CONTRASTon [...] Dale Barcenas MD 05/25/22 Final result Normal [facility] No acute intracrania l abnormality. [facility] RIS CONSOLIDATED EXAMINATION: CT OF THE HEAD [...] of the visualized skull or soft tissues. [facility] Dale Garcia MD - 05/25/2022 EXAMINATION: CT OF THE [...] soft tissues. IMPRESSION: No acute intracranial abnormality. [employer] Phone: Radiology Study observation (narrative) [employer] Phone: CT HEAD WO CONTRASTOrdered B y: Dale Barcenas on 05-25-2022 [employer] Phone: Comp Metabolic Profon 2021 ALT [Catalytic activity/Vol] 5 U/L Normal 5-33 [facility] Comment on above: Performed By: #### C BC, CP #### [facility] [address] [place] [address] Emergency Care Tech: Gino Wing MD Bilirubin [Mass/Vol] mg/dL Low 0.3-1.2 [facility] Comment on above: Performed By: #### C BC, CP #### [facility] [address] [place] [address] Emergency Care Tech: iGno Wing MD Albumin [Mass/Vol] 3.1 g/dL Low 3.5-5.2 [facility] Comment on above: Performed By: #### C BC, CP #### [facility] [address] [place] [address] Emergency Care Tech: Gino Wing MD Albumin/Glob Ratio 1.0 Normal 1.0-2.5 [facility] Comment on above: Performed By: #### C BC, CP #### [facility] [address] [place] [address] Emergency Care Tech: Gino Wing MD Alkaline Phos 79 U/L Normal 35-104 [facility] Comment on above: Performed By: #### C BC, CP #### [address] [address] Emergency Care Tech: Gino Wing MD Anion gap [Moles/Vol] 12 mmol/L Normal 9-17 [facility] Comment on above: Performed By: #### C BC, CP #### [address] [address] Emergency Care Tech: Gino Wing MD AST [Catalytic activity/Vol] 9 U/L Normal <32 [facility] Comment on above: Performed By: #### C BC, CP #### [facility] [address] [place] [id number] Emergency Care Tech: Gino Wing MD Calcium [Mass/Vol] 6.6 mg/dL Low 8.6-10.4 [facility] Comment on above: Performed By: #### C DHARA, CP #### [address] [address] Emergency Care Tech: Gino Wing MD Chloride [Moles/Vol] 103 mmol/L Normal 98-107 [facility] Comment on above: Performed By: #### C BC, CP #### [address] [address] Emergency Care Tech: Gino Wing MD CO2 [Moles/Vol] 19 mmol/L Low 20-31 [facility] Comment on above: Performed By: #### C DHARA, CP #### [address] [address] Emergency Care Tech: Gino Wing MD Creatinine [Mass/Vol] 0.46 mg/dL Low 0.50-0.90 [facility] Comment on above: Performed By: #### C DHARA, CP #### [address] [address] Emergency Care Tech: Gino Wing MD GFR/1.73 sq M.predicted among non-blacks MDRD (S/P/Bld) [Vol rate/Area] mL/min/{1.73_m2} Normal >60 [facility] Comment on above: Result [...] Performed By: #### C DHARA, CP #### [address] [address] Emergency Care Tech: Gino Wing MD Glucose [Mass/Vol] 118 mg/dL High 70-99 [facility] Comment on above: Performed By: #### C BC, CP #### [facility] [address] [place] [address] Emergency Care Tech: Gino Wing MD Potassium [Moles/Vol] 3.8 mmol/L Normal 3.7-5.3 [facility] Comment on above: Performed By: #### C BC, CP #### [facility] [address] [place] [address] Emergency Care Tech: Gino Wing MD Protein [Mass/Vol] 6.2 g/dL Low 6.4-8.3 [facility] Comment on above: Performed By: #### C BC, CP #### [facility] [address] [place] [address] Emergency Care Tech: Gino Wing MD Sodium [Moles/Vol] 134 mmol/L Low 135-144 [facility] Comment on above: Performed By: #### C BC, CP #### [facility] [address] [place] [address] Emergency Care Tech: Gino Wing MD Urea nitrogen [Mass/Vol] 6 mg/dL Normal 6-20 [facility] Comment on above: Performed By: #### C BC, CP #### [facility] [address] [place] [address] Emergency Care Tech: Gino Wing MD Comprehensive Metabolic Pane [facility] 05-25-2022 Albumin [Mass/Vol] 3.1 g/dL Low 3.5 - 5.2 g/dL [facility] Albumin/Globulin [Mass ratio] 1.1 {ratio} 1 - 2.5 [facility] ALP (Bld) [Catalytic activity/Vol] 82 U/L 35 - 104 U/L [facility] ALT [Catalytic activity/Vol] U/L Low 5 - 33 U/L [facility] Anion gap [Moles/Vol] 13 mmol/L 9 - 17 mmol/L [facility] AST [Catalytic activity/Vol] 17 U/L NINF - 32 U/L [facility] Bilirubin [Mass/Vol] mg/dL Low 0.3 - 1 .2 mg/dL [facility] Calcium [Mass/Vol] 6.6 mg/dL Low 8.6 - 10. 4 mg/dL [facility] Chloride [Moles/Vol] 102 mmol/L 98 - 10 7 mmol/L [facility] CO2 [Moles/Vol] 19 mmol/L Low 20 - 31 mmol/L [facility] Creatinine [Mass/Vol] 0.57 mg/dL 0.5 - 0.9 mg/dL [facility] GFR/1.73 sq M.predicted MDRD (S/P/Bld) [Vol rate/Area] - PINF [facility] Comment on above: Effective May 24, [...] 109 mg/dL High 70 - 99 mg/dL [facility] Interpretation and review of laboratory results Abnormal [facility] Potassium [Moles/Vol] 4.2 mmol/L 3.7 - 5.3 mmol/L [facility] Protein [Mass/Vol] 6.0 g/dL Low 6.4 - 8.3 g/dL [facility] Sodium [Moles/Vol] 134 mmol/L Low 135 - 144 mmol/L [facility] Urea nitrogen (BldV) [Mass/Vol] 6 mg/dL 6 - 20 mg/dL [facility] Albumin [Mass/Vol] 3.1 g/dL Low 3.5 - 5.2 g/dL [facility] Albumin/Globulin [Mass ratio] 1.0 {ratio} 1 - 2.5 [facility] ALP (Bld) [Catalytic activity/Vol] 79 U/L 35 - 104 U/L [facility] ALT [Catalytic activity/Vol] 5 U/L 5 - 33 U/L [facility] Anion gap [Moles/Vol] 12 mmol/L 9 - 17 mmol/L [facility] AST [Catalytic activity/Vol] 9 U/L NINF - 32 U/L [facility] Bilirubin [Mass/Vol] mg/dL Low 0.3 - 1 .2 mg/dL [facility] Calcium [Mass/Vol] 6.6 mg/dL Low 8.6 - 10. 4 mg/dL [facility] Chloride [Moles/Vol] 103 mmol/L 98 - 10 7 mmol/L [facility] CO2 [Moles/Vol] 19 mmol/L Low 20 - 31 mmol/L [facility] Creatinine [Mass/Vol] 0.46 mg/dL Low 0.5 - 0.9 mg/dL [facility] GFR/1.73 sq M.predicted MDRD (S/P/Bld) [Vol rate/Area] - PINF [facility] Comment on above: Effective May 24, [...] 118 mg/dL High 70 - 99 mg/dL [facility] Interpretation and review of laboratory results Abnormal [facility] [facility] Potassium [Moles/Vol] 3.8 mmol/L 3.7 - 5.3 mmol/L [facility] Protein [Mass/Vol] 6.2 g/dL Low 6.4 - 8.3 g/dL [facility] Sodium [Moles/Vol] 134 mmol/L Low 135 - 144 mmol/L [facility] Urea nitrogen (BldV) [Mass/Vol] 6 mg/dL 6 - 20 mg/dL [facility] Fibrinogenon 05-25-2022 Fibrinogen 367 mg/dL Normal 140-420 [facility] Comment on above: Performed By: #### C BC, CP #### [facility] [employer] [address] [place] [address] [phone] Emergency Care Tech: Gino Wing MD Fibrinogen 367 mg/dL 140 - 420 mg/dL [facility] Haptoglobinon 05-25-2022 Haptoglobin 159 mg/dL Normal 30-200 [facility] Comment on above: Performed By: #### M G, FIB, LD, URI, HAPT, CBC, CP, PTT, PT #### [facility] [address] [place] [address] [phone] Emergency Care Tech: Gino Wing MD Haptoglobin 159 mg/dL 30 - 200 mg/dL [facility] Lactate Dehydrogenaseon LDH [Catalytic activity/Vol] 118 U/L Low 135-214 [facility] Comment on above: Performed By: #### M G, FIB, LD, URI, HAPT, CBC, CP, PTT, PT #### [address] [phone] Emergency Care Tech: Gino Wing MD Interpretation and review of laboratory results Abnormal [facility] LD 118 U/L Low 135 - 214 U/L [facility] MAGNESIUM DRIP MONITORon Magnesium [Mass/Vol] 5.0 mg/dL Normal 3.6-6.8 [facility] Comment on above: Performed By: #### U RCX #### [facility] [address] [place] [address] Dr. Elda Velasquez Magnesiumon 05-25-2022 Magnesium [Mass/Vol] 5.0 mg/dL High 1.6-2.6 [facility] Comment on above: Performed By: #### C BC, CP #### [facility] [address] [place] [address] [place] [phone] Emergency Care Tech: Gino Wing MD Interpretation and review of laboratory results Abnormal [facility] Magnesium [Mass/Vol] 5.0 mg/dL High 1.6 - 2 .6 mg/dL [facility] No Panel Informationon 05-25 [facility] PTon 05-25-2022 INR Coag (PPP) [Relative time] 0.9 {INR} Normal [facility] Comment on above: Result Comment: Therapeutic Range: Moderate Anticoagulant Intensity: INR = 2.0-3.0 High Anticoagulant Intensity: INR = 2.5-3.5 Performed By: #### C DHARA, CP #### [employer] [facility] [place], [place] [phone] Emergency Care Tech: Gino Wing MD PT Coag (PPP) [Time] 9.4 s Normal 9.1-12.3 [facility] Comment on above: Performed By: #### C DHARA, CP #### [employer] [address] [place] [address] [phone] Emergency Care Tech: Gino Wing MD Protime-INRon 05-25-2022 INR Coag (Bld) [Relative time] 0.9 {INR} [facility] Comment on above: Therapeutic Range: Moderate Anticoagulant Intensity: INR = 2.0-3.0 High Anticoagulant Intensity: INR = 2.5-3.5 PT Coag (PPP) [Time] 9.4 s [facility] Surgical Pathologyon 022 Surgical Pathology (NOTE) -- Diagnosis -- PLACENTA, DELIVERED: -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 -PLACENTAL DISC IS UNREMARKABLE. Aaron Arteaga M.D. Electronically Signed Out /05/27/2022 Clinical Information Pre-op Diagnosis: , ECLAMPSIA, HX [...] SURGICAL PATHOLOGY CONSULTATION Patient Name: QIAN CLEMENTS [facility] Rec: [id number] Path Number: [id number] [facility] [employer] ANATOMIC PATHOLOGY [address] [place] [phone] [facility] Comment on above: Performed By: #### C BC, CP #### [facility] [address] [place] [address] [phone] Emergency Care Tech: Gino Wing MD T. pallidum Abon 05-25-2022 T. pallidum, IgG Non-Reactive NONREACTIVE [facility] Comment on above: T. pallidum antibodies are not detected. There is no serological evidence of infection with T. pallidum (early primary syphilis cannot be excluded). Retest in 2-4 weeks if syphilis is clinically suspect. [facility] TYPE AND SCREENon 05-25-2022 ABO/Rh Positive [facility] Arm Band Number BE [id number] [facility] Expiration Date 05/28/2022,7017 [facility] Type + Screenon 05-25-2022 Type + Screen Sample Expiration 05/28/2022,2359 Arm Band Number BE [id number] ABO/Rh(D) O POSITIVE Antibody Screen NEGATIVE Normal [facility] Comment on above: Performed By: #### T YS #### [facility] [address] [place] [address] Emergency Care Tech: Gino Wing MD US PREG BIOPHY W [...] by: AARON DELACRUZ Date: 2022-05-25 07:12 Normal [facility] US PREG GROWTHon 05-25-2022 US PREG [...] by: AARON DELACRUZ Date: 2022-05-25 07:27 Normal [facility] Acidon 05-25-2022 Urate [Mass/Vol] 3.8 mg/dL Normal 2.4-5.7 [facility] Comment on above: Performed By: #### C BC, CP #### [facility] [address] [place] [address] Emergency Care Tech: Gino Wing MD Urate [Mass/Vol] 3.8 mg/dL 2.4 - 5.7 mg/dL [facility] CBC AUTO DIFFon 05-24-2022 BASO # 0.0 103/ul Normal 0.0-0.1 [facility] Comment on above: Performed By: #### C BC #### [facility] [address] [place] [address] Dr. Elda Velasquez Basophils/100 WBC (Bld) 0.3 % Normal 0.2-2.0 [facility] Comment on above: Performed By: #### C BC #### [facility] [address] [place] [address] Dr. Elda Velasquez EO # 0.0 103/ul Normal 0.0-0.7 [facility] Comment on above: Performed By: #### C BC #### [facility] [address] [place] [address] Dr. Elda Velasquez Eosinophils/100 WBC (Bld) 0.2 % Critically low 0.9-7.0 [facility] Comment on above: Performed By: #### C BC #### [facility] [address] [place] [address] Dr. Elda Velasquez Erythrocyte distribution width (RBC) [Ratio] 12.3 % Normal 11.0-15.0 [facility] Comment on above: Performed By: #### C BC #### [facility] [address] [place] [address] Dr. Elda Velasquez Hematocrit (Bld) [Volume fraction] 31.5 % Critically low 36.0-48.0 [facility] Comment on above: Performed By: #### C BC #### [facility] [address] [place] [address] Dr. Elda Velasquez Hemoglobin (Bld) [Mass/Vol] 10.2 g/dL Critically low 12.0-16.0 [facility] Comment on above: Performed By: #### C BC #### [facility] [address] [place] [address] Dr. Elda Velasquez IG # 0.16 10e3/ul Critically high 0.00-0.03 [facility] Comment on above: Performed By: #### C BC #### [facility] [address] [place] [address] Dr. Elda Velasquez IG % 1.3 % Critically high 0.0-0.5 [facility] Comment on above: Performed By: #### C BC #### [facility] [address] [place] [address] Dr. Elda Velasquez LYMPH # 2.1 103/ul Normal 1.2-3.8 [facility] Comment on above: Performed By: #### C BC #### [facility] [address] [place] [address] Dr. Elda Velasquez Lymphocytes/100 WBC (Bld) 17.1 % Critically low 20.5-60.0 [facility] Comment on above: Performed By: #### C BC #### [facility] [address] [place] [address] Dr. Elda Velasquez MANUAL DIFF REQ NO Normal [facility] Comment on above: Performed By: #### C BC #### [facility] [address] [place] [address] Dr. Elda Velasquez MCH (RBC) [Entitic mass] 29.0 pg Normal 26.7-34.0 [facility] Comment on above: Performed By: #### C BC #### [facility] [address] [place] [address] Dr. Elda Velasquez MCHC (RBC) [Mass/Vol] 32.4 g/dL Normal 29.9-35.2 [facility] Comment on above: Performed By: #### C BC #### [facility] [address] [place] [address] Dr. Elda Velasquez MCV (RBC) [Entitic vol] 89.5 fL Normal 81.0-99.0 [facility] Comment on above: Performed By: #### C BC #### [facility] [address] [place] [address] Dr. Elda Velasquez MONO # 0.9 103/ul Critically high 0.3-0.8 [facility] Comment on above: Performed By: #### C BC #### [facility] [address] [place] [address] Dr. Elda Velasquez Monocytes/100 WBC (Bld) 7.1 % Normal 1.7-12.0 [facility] Comment on above: Performed By: #### C BC #### [facility] [address] [place] [address] Dr. Elda Velasquez NEUT # 8.9 103/ul Critically high 1.4-6.5 [facility] Comment on above: Performed By: #### C BC #### [facility] [address] [place] [address] Dr. Elda Velasquez Neutrophils/100 WBC (Bld) 74.0 % Normal 43.0-75.0 [facility] Comment on above: Performed By: #### C BC #### [facility] [address] [place] [address] Dr. Elda Velasquez Platelet mean volume (Bld) [Entitic vol] 9.4 fL Critically low 9.5-13.5 [facility] Comment on above: Performed By: #### C BC #### [facility] [address] [place] [address] Dr. Elda Velasquez PLT 340 103/ul Normal 150-450 [facility] Comment on above: Performed By: #### C BC #### [facility] [address] [place] [address] Dr. Elda Velasquez RBC 3.52 106/ul Critically low 4.20-5.40 [facility] Comment on above: Performed By: #### C BC #### [facility] [address] [place] [address] Dr. Elda Velasquez WBC 12.0 103/ul Critically high 4.0-11.0 [facility] Comment on above: Performed By: #### C BC #### [facility] [address] [address] [address] Elda Velasquez CTA CHEST WO W CONon CTA CHEST WO W CON INDICATION: CHEST [...] by: MARGOT LAU Date: 2022-05-24 19:33 Normal [facility] LDHon 05-24-2022 LDH 90 U/L Normal 81-234 [facility] Comment on above: Performed By: #### U JUAN F, LDH, CMP #### [facility] [address] [place], [place] [address] Dr. Elda Velasquez PROF 14(COMP METB)on Albumin [Mass/Vol] 2.3 g/dL Critically low 3.4-5.0 [facility] Comment on above: Performed By: #### U JUAN F, LDH, CMP #### [facility] [address] [address] [address] Elda Velasquez Albumin/Globulin [Mass ratio] 0.6 {ratio} Normal [facility] Comment on above: Performed By: #### U JUAN F, LDH, CMP #### [facility] [address] [address] [address] Elda Velasquez ALP [Catalytic activity/Vol] 87 U/L Normal 46-116 [facility] Comment on above: Performed By: #### U JUAN F, LDH, CMP #### [facility] [address] [address] [address] Elda Velasquez ALT [Catalytic activity/Vol] 11 U/L Critically low 14-59 [facility] Comment on above: Performed By: #### U JUAN F, LDH, CMP #### [facility] [address] [address] [address] Elda Velasquez Anion gap [Moles/Vol] 13.3 mmol/L Normal [facility] Comment on above: Performed By: #### U JUAN F, LDH, CMP #### [facility] [address] [address] [address] Elda Velasquez AST [Catalytic activity/Vol] 5 U/L Critically low 15-37 [facility] Comment on above: Performed By: #### U JUAN F, LDH, CMP #### [facility] [address] [address] [address] Elda Velasquez Bilirubin [Mass/Vol] 0.1 mg/dL Critically low 0.2-1.0 [facility] Comment on above: Performed By: #### U JUAN F, LDH, CMP #### [facility] [address] [address] [address] Elda Velasquez Calcium [Mass/Vol] 8.3 mg/dL Critically low 8.5-10.1 [facility] Comment on above: Performed By: #### U JUAN F, LDH, CMP #### [facility] [address] [address] [address] Elda Velasquez Chloride [Moles/Vol] 106 mmol/L Normal 98-107 [facility] Comment on above: Performed By: #### U JUAN F, LDH, CMP #### [facility] [address] [address] [address] Elda Velasquez CO2 [Moles/Vol] 22.5 mmol/L Normal 21.0-32.0 [facility] Comment on above: Performed By: #### U JUAN F, LDH, CMP #### [facility] [address] [address] [address] Elda Velasquez Creatinine [Mass/Vol] 0.72 mg/dL Normal 0.55-1.02 [facility] Comment on above: Performed By: #### U JUAN F, LDH, CMP #### [facility] [address] [place] [address] Dr. Elda Velasquez EGFR-AF ZAMBIAN >60 Normal >=60 [facility] Comment on above: Performed By: #### U JUAN F, LDH, CMP #### [facility] [address] [place] [address] Dr. Elda Velasquez EGFR-NON AF ZAMBIAN >60 Normal >=60 [facility] Comment on above: Performed By: #### U JUAN F, LDH, CMP #### [facility] [address] [place] [address] Dr. Elda Velasquez Globulin (S) [Mass/Vol] 3.7 g/dL Normal [facility] Comment on above: Performed By: #### U JUAN F, LDH, CMP #### [facility] [address] [place] [address] Dr. Elda Velasquez Glucose [Mass/Vol] 135 mg/dL Critically high 74-106 [facility] Comment on above: Performed By: #### U JUAN F, LDH, CMP #### [facility] [address] [place] [address] Dr. Elda Velasquez Potassium [Moles/Vol] 3.8 mmol/L Normal 3.5-5.1 [facility] Comment on above: Performed By: #### U JUAN F, LDH, CMP #### [facility] [address] [place] [address] Dr. Elda Velasquez Protein [Mass/Vol] 6.0 g/dL Critically low 6.4-8.2 [facility] Comment on above: Performed By: #### U JUAN F, LDH, CMP #### [facility] [address] [place] [address] Dr. Elda Velasquez Sodium [Moles/Vol] 138 mmol/L Normal 136-145 [facility] Comment on above: Performed By: #### U JUAN F, LDH, CMP #### [facility] [address] [place] [address] Dr. Elda Velasquez Urea nitrogen [Mass/Vol] 6.0 mg/dL Critically low 7.0-18.0 [facility] Comment on above: Performed By: #### U JUAN F, LDH, CMP #### [facility] [address] [place] [address] Dr. Elda Velasquez Urea nitrogen/Creatinine [Mass ratio] 8.3 mg/mg Normal [facility] Comment on above: Performed By: #### U JUAN F, LDH, CMP #### [facility] [address] [place] [address] Dr. Elda Velasquez UA (CLEAN/CATCH) [employer] BUSINESS ANALYST/MICRO I F IND.on 05-24-2022 Bilirubin Ql (U) Negative Normal NEGATIVE [facility] Comment on above: Performed By: #### U RCX #### [facility] [address] [place] [address] Dr. Elda Velasquez Clarity (U) CLEAR Normal CLEAR [facility] Comment on above: Performed By: #### U RCX #### [facility] [address] [place] [address] Dr. Elda Velasquez Color (U) LT. YELLOW Normal YELLOW [facility] Comment on above: Performed By: #### U RCX #### [facility] [address] [place] [address] Dr. Elda Velasquez Glucose Ql (U) Negative Normal NEGATIVE [facility] Comment on above: Performed By: #### U RCX #### [facility] [address] [place] [address] Dr. Elda Velasquez Hemoglobin Ql (U) Negative Normal NEGATIVE [facility] Comment on above: Performed By: #### U RCX #### [facility] [address] [address] [address] Elda Velasquez Ketones Ql (U) Negative Normal NEGATIVE [facility] Comment on above: Performed By: #### U RCX #### [facility] [address] [place] [address] Dr. Elda Velasquez LEUKOCYTES Negative Normal NEGATIVE [facility] Comment on above: Performed By: #### U RCX #### [facility] [address] [place] [address] Dr. Elda Velasquez Nitrite Ql (U) Negative Normal NEGATIVE [facility] Comment on above: Performed By: #### U RCX #### [facility] [address] [place] [address] Dr. Elda Velasquez pH (U) 7.0 [pH] Normal 5-9 [facility] Comment on above: Performed By: #### U RCX #### [facility] [address] [place] [address] Dr. Elda Velasquez SPEC GRAVITY 1.010 Normal 1.005-<=1.025 [facility] Comment on above: Performed By: #### U RCX #### [facility] [address] [place] [address] Dr. Elda Velasquez UA PROTEIN Negative Normal NEGATIVE/ TRACE [facility] Comment on above: Performed By: #### U RCX #### [facility] [address] [place] [address] Dr. Elda Velasquez UR MICRO IND NOT INDICATED Normal [facility] Comment on above: Performed By: #### U RCX #### [facility] [address] [place] [address] Dr. Elda Velasquez Urobilinogen Qn (U) 0.2 {Caroline'U}/dL Normal 0.2 - 1. 0 [facility] Comment on above: Performed By: #### U RCX #### [facility] [address] [place] [address] Dr. Elda Velasquez URIC ACID SERUMon 05-24-2022 Urate [Mass/Vol] 3.8 mg/dL Normal 2.6-6.0 [facility] Comment on above: Performed By: #### U JUAN F, LDH, CMP #### [facility] [address] [place] [address] Dr. Elda Velasquez US PREG CERVICAL LENGTHon US PREG CERVICAL LENGTH EXAMINATION: US PREG CERVICAL LENGTH HISTORY: Premature uterine contraction COMPARISON: No relevant comparison available. FINDINGS: position: Cephalic presentation, longitudinal lie Amniotic fluid volume: Subjectively normal Cervix: 4.5 cm], closed Heart rate: 144 bpm IMPRESSION: Closed cervix measuring 4.5 cm Electronically authenticated by: AARON DELACRUZ Date: 2022-05-24 11:52 Normal [facility] CULTURE URINEon 05-23-2022 CULTURE URINE Culture Observations : LIGHT GROWTH OF MIXED GENITAL J CARLOS. NO POTENTIAL PATHOGENS SEEN. Normal [facility] Comment on above: Performed By: #### U RCX #### [facility] [address] [place] [address] Dr. Elda Velasquez UA (CLEAN/CATCH) [employer] ANALYST/MICRO I F IND.on 05-23-2022 Bilirubin Ql (U) Negative Normal NEGATIVE [facility] Comment on above: Performed By: #### U RCX #### [facility] [address] [place] [address] Dr. Elda Velasquez Clarity (U) SL CLOUDY Abnormal CLEAR [facility] Comment on above: Performed By: #### U RCX #### [facility] [address] [place] [address] Dr. Elda Velasquez Color (U) LT. YELLOW Normal YELLOW [facility] Comment on above: Performed By: #### U RCX #### [facility] [address] [place] [address] Dr. Elda Velasquez Glucose Ql (U) Negative Normal NEGATIVE [facility] Comment on above: Performed By: #### U RCX #### [facility] [address] [place] [address] Dr. Elda Velasquez Hemoglobin Ql (U) TRACE-INTACT Abnormal NEGATIVE [facility] Comment on above: Performed By: #### U RCX #### [facility] [address] [place] [address] Dr. Elda Velasquez Ketones Ql (U) Negative Normal NEGATIVE [facility] Comment on above: Performed By: #### U RCX #### [facility] [address] [place] [address] Dr. Elda Velasquez LEUKOCYTES TRACE Abnormal NEGATIVE [facility] Comment on above: Performed By: #### U RCX #### [facility] [address] [place] [address] Dr. Elda Velasquez Nitrite Ql (U) Positive Abnormal NEGATIVE [facility] Comment on above: Performed By: #### U RCX #### [facility] [address] [place] [address] Dr. Elda Velasquez pH (U) 7.0 [pH] Normal 5-9 [facility] Comment on above: Performed By: #### U RCX #### [facility] [address] [place] [address] Dr. Elda Velasquez SPEC GRAVITY 1.015 Normal 1.005-<=1.025 [facility] Comment on above: Performed By: #### U RCX #### [facility] [address] [place] [address] Dr. Elda Velasquez UA PROTEIN Negative Normal NEGATIVE/ TRACE [facility] Comment on above: Performed By: #### U RCX #### [facility] [address] [place] [address] Dr. Elda Velasquez UR MICRO IND INDICATED Normal [facility] Comment on above: Performed By: #### U RCX #### [facility] [address] [place] [address] Dr. Elda Velasquez Urobilinogen Qn (U) 1.0 {Caroline'U}/dL Normal 0.2 - 1. 0 [facility] Comment on above: Performed By: #### U RCX #### [facility] [address] [place] [address] Dr. Elda Velasquez URINE MICROSCOPIC ONLYon BACTERIA SMALL Abnormal NONE SEEN [facility] Comment on above: Performed By: #### U RCX #### [facility] [address] [place] [address] Dr. Elda Velasquez Bacteria identified Cx Nom (U) INDICATED Normal [facility] Comment on above: Performed By: #### U RCX #### [facility] [address] [place] [address] Dr. Elda Velasquez CAST NONE SEEN Normal NONE SEEN [facility] Comment on above: Performed By: #### U RCX #### [facility] [address] [address] [address] Elda Velasquez Crystals LM Nom (Urine sed) NONE SEEN Normal NONE SEEN [facility] Comment on above: Performed By: #### U RCX #### [facility] [address] [place] [address] Dr. Elda Velasquez Epithelial cells LM Ql (Urine sed) MODERATE Abnormal NONE SEEN /RARE [facility] Comment on above: Performed By: #### U RCX #### [facility] [address] [place] [address] Dr. Elda Velasquez MUCOUS TRACE Abnormal NONE SEEN [facility] Comment on above: Performed By: #### U RCX #### [facility] [address] [place] [address] Dr. Elda Velasquez RBC 2-5 Abnormal 0-2 [facility] Comment on above: Performed By: #### U RCX #### [facility] [address] [place] [address] Dr. Elda Velasquez WBC 2-5 Abnormal NONE SEEN [facility] Comment on above: Performed By: #### U RCX #### [facility] [address] [place] [address] Dr. Elda Velasquez US PREG ANATOMY SINGLEon [...] PILAR DOBSON Date: 2022-05-04 16:28 Normal [facility] Microscopic UrinalysisOrdere d By: Pilar Garcia on 09-19-2019 - [employer] Work Phone: Amorphous, UA NOT REPORTED None [employer] [facility] Work Phone: Bacteria, UA 1+ Abnormal None [employer] Work Phone: Casts UA NOT REPORTED /LPF [employer] Work Phone: Crystals UA CALCIUM OXALATE Abnormal None /HPF [employer] [facility] Work Phone: Crystals UA 1+ Abnormal None /HPF [employer] Work Phone: Epithelial Cells UA 10 TO 20 /HPF [employer] Work Phone: Interpretation and review of laboratory results Abnormal [facility] Work Phone: Mucus, UA NOT REPORTED None [facility] Work Phone: Other Observations UA NOT REPORTED NOT REQ. [facility] Work Phone: RBC, UA 2 TO 5 [facility] Work Phone: Renal Epithelial, Urine NOT REPORTED 0 /HPF [facility] Work Phone: Trichomonas, UA NOT REPORTED None [employer] Work Phone: WBC, UA 0 TO 2 0 /HPF [facility] Work Phone: Yeast, UA NOT REPORTED None [facility] Work Phone: UrinalysisOrdered By: Pilar Garcia on 09-19-2019 Bilirubin Urine Negative NEGATIVE [employer] [facility] Work Phone: Color, UA YELLOW YELLOW [employer] Phone: Glucose, Ur Negative NEGATIVE [facility] Work Phone: Interpretation and review of laboratory results Abnormal [facility] Work Phone: Ketones Ql (U) Negative NEGATIVE [employer] Work Phone: Leukocyte esterase Test strip Ql (U) Negative NEGATIVE [employer] Phone: Nitrite, Urine Negative NEGATIVE [employer] Work Phone: pH, UA 6.0 [employer] Phone: Protein, UA TRACE Abnormal NEGATIVE [facility] Work Phone: Specific [place], UA 1.025 [email or web address] Work Phone: Turbidity UA HAZY Abnormal CLEAR [facility] Work Phone: Urinalysis Comments [facility] Work Phone: Urine Hgb TRACE Abnormal NEGATIVE [employer] Phone: Urobilinogen, Urine Normal Normal [employer] Phone: CBC Auto Differentialon 04-22 Basophils (Bld) [#/Vol] 0.00 10*3/uL [place] Basophils/100 WBC (Bld) 0 % 0 - 2 % [place] Differential Type YES [place] Eosinophils (Bld) [#/Vol] 0.10 10*3/uL [place] Eosinophils/100 WBC (Bld) 1 % 0 - 5 % [place] Erythrocyte distribution width (RBC) [Ratio] 13.6 % 12.1 - 15.2 % [place] Hematocrit (Bld) [Volume fraction] 37.7 % 36 - 46 % [place] Hemoglobin (Bld) [Mass/Vol] 12.8 g/dL 12 - 16 g/dL [place] Interpretation and review of laboratory results Abnormal [place] Lymphocytes (Bld) [#/Vol] 1.90 10*3/uL [place] Lymphocytes/100 WBC (Bld) 20 % 15 - 40 % [place] MCH (RBC) [Entitic mass] 29.1 pg 26 - 34 pg [place] MCHC (RBC) [Mass/Vol] 34.0 g/dL 31 - 37 g/dL [place] MCV (RBC) [Entitic vol] 85.7 fL 80 - 100 fL [place] Monocytes (Bld) [#/Vol] 0.40 10*3/uL [place] Monocytes/100 WBC (Bld) 5 % 4 - 8 % [place] Platelet mean volume (Bld) [Entitic vol] NOT REPORTED 6 - 12 fL [place], [place] Platelets (Bld) [#/Vol] NOT REPORTED [place] Platelets (Bld) [#/Vol] 378 10*3/uL [place] RBC (Bld) [#/Vol] 4.40 10*6/uL 4 - 5.2 m/uL [place] RBC morphology finding Nom (Bld) NOT REPORTED [place] Segmented neutrophils/100 WBC (Bld) 74 % 47 - 75 % [place] Segs Absolute 7.20 High [place] WBC (Bld) [#/Vol] NOT REPORTED per 100 WBC [place] WBC (Bld) [#/Vol] 9.7 10*3/uL [place] WBC Morphology NOT REPORTED [place] Comprehensive Metabolic Pane l w/ Reflex to MGon 05-06-2019 Albumin [Mass/Vol] 3.9 g/dL 3.5 - 5.2 g/dL [place] Albumin/Globulin [Mass ratio] NOT REPORTED [place] ALP [Catalytic activity/Vol] 84 U/L 35 - 104 U/L [place] ALT [Catalytic activity/Vol] 14 U/L 5 - 33 U/L [place] Anion gap [Moles/Vol] 13 mmol/L 9 - 17 mmol/L [place] AST [Catalytic activity/Vol] 14 U/L <32 [place] Bilirubin Ql (U) 0.34 mg/dL 0.3 - 1.2 mg/dL [place] Bun/Cre Ratio 16 [place] Calcium [Mass/Vol] 9.6 mg/dL 8.6 - 10. 4 mg/dL [place] Chloride [Moles/Vol] 102 mmol/L 98 - 10 7 mmol/L [place] CO2 [Moles/Vol] 23 mmol/L 20 - 31 mmol/L [place] Creatinine [Mass/Vol] 0.61 mg/dL 0.5 - 0.9 mg/dL [place] GFR >60 >60 mL/min [place] GFR Non- >60 >60 mL/min [place] GFR/1.73 sq M predicted among non-blacks MDRD (S/P/Bld) [Vol rate/Area] NOT REPORTED [place] GFR/1.73 sq M predicted among non-blacks MDRD (S/P/Bld) [Vol rate/Area] [place] Comment on above: Average GFR for 20-2 9 years old: 116 mL/min/1.73sq m Chronic Kidney Disease: <60 mL/min/1.73sq m Kidney failure: <15 mL/min/1.73sq m eGFR calculated using average adult body mass. Additional eGFR calculator available at: http://www.[employer]/multiple_crcl_2012.htm Glucose [Mass/Vol] 101 mg/dL High 70 - 99 mg/dL [place] Interpretation and review of laboratory results Abnormal [place] Potassium [Moles/Vol] 4.2 mmol/L 3.7 - 5.3 mmol/L [place] Protein [Mass/Vol] 6.8 g/dL 6.4 - 8.3 g/dL [place] Sodium [Moles/Vol] 138 mmol/L 135 - 144 mmol/L [place] Urea nitrogen [Mass/Vol] 10 mg/dL 6 - 20 mg/dL [place] Otheron 05-06-2019 Immature granulocytes (Bld) [#/Vol] NOT REPORTED 0 % [place] Sedimentation Rateon 019 Sed Rate 23 mm 0 - 30 mm [place] Strep Screen Group A Throato n 05-06-2019 S. pyogenes Ag IA Ql (Unsp spec) Rapid Strep A negative. A negative Rapid Group A Strep Screen result does not rule out the possibility of Group A Streptococci in the specimen. A Group A Strep DNA test is available upon request. [place] Special Requests NOT REPORTED [place] Specimen Description .THROAT [place] Urinalysis, reflex to micros copicon 05-06-2019 Bilirubin Urine Negative NEGATIVE [place] Color, UA YELLOW YELLOW [place] Glucose, Ur Negative NEGATIVE [place] Ketones Ql (U) Negative NEGATIVE [place] Leukocyte esterase Test strip Ql (U) Negative NEGATIVE [place] Nitrite, Urine Negative NEGATIVE [place] pH, UA 7.0 [place] Protein (U) [Mass/Vol] Negative NEGATIVE [place] Specific [place], UA 1.015 [facility] [place], [place] Turbidity UA CLEAR CLEAR [facility], [place] Urinalysis Comments [place] Urine Hgb Negative NEGATIVE [facility], [place] Urobilinogen, Urine Normal Normal [facility], [place] Vital Signs Date Time Vital Sign Value Performing Clinician Facility 08-23-2024 17:31-0500 Heart rate 100 /min Tarun Richards [facility] 08-23-2024 17:31-0500 Respiratory rate 20 /min Tarun Richards [facility] 08-23-2024 17:31-0500 SaO2% (BldA) [Mass fraction] 97 % Tarun Richards [facility] 08-23-2024 15:35-0500 Body temperature 98.24 [degF] Tarun Richards [facility] 08-23-2024 15:35-0500 Diastolic blood pressure 84 mm[Hg] Tarun Richards [facility] 08-23-2024 15:35-0500 Heart rate 110 /min Tarun Richards [facility] 08-23-2024 15:35-0500 Respiratory rate 20 /min Tarun Richards [facility] 08-23-2024 15:35-0500 SaO2% (BldA) [Mass fraction] 96 % Tarun Richards [facility] 08-23-2024 15:35-0500 Systolic blood pressure 139 mm[Hg] Tarun Richards [facility] 07-27-2024 11:23-0500 Body mass index (BMI) [Ratio] 43.39 kg/m2 [facility] 07-27-2024 11:23-0500 Body weight 114.67 kg [facility] Nurse [facility] 06-13-2024 11:38-0400 Body mass index (BMI) [Ratio] 42.4 kg/m2 Alfred Ricks Work Phone: [facility] 06-13-2024 11:38-0400 Body weight 112.04 kg Alfred Rambo DO Work Phone: [facility] 06-13-2024 11:38-0400 Diastolic blood pressure 74 mm[Hg] Alfred Rambo DO Work Phone: [facility] 06-13-2024 11:38-0400 Systolic blood pressure 124 mm[Hg] Alfred Rambo DO Work Phone: [facility] 06-02-2024 13:44-0400 Body height 162.6 cm Chitra Batista MD Work Phone: [facility] [employer] 06-02-2024 13:44-0400 Body mass index (BMI) [Ratio] 41.68 kg/m2 [facility] [employer] 06-02-2024 13:44-0400 Body weight 110.13 kg Chitra Batista MD [facility] [employer] 06-02-2024 13:40-0400 Body temperature 97.5 [degF] Chitra Batista MD Work [facility] [employer] 06-02-2024 13:40-0400 Diastolic blood pressure 84 mm[Hg] Chitra Batista MD Work [facility] [employer] 06-02-2024 13:40-0400 Heart rate 91 /min Chitra Batista MD [facility] [employer] 06-02-2024 13:40-0400 Respiratory rate 18 /min Chitra Batista MD Work [facility] [employer] 06-02-2024 13:40-0400 SaO2% (BldA) [Mass fraction] 98 % Chitra Batista MD Work Phone[facility] [employer] 10-12-2024 13:40-0400 Systolic blood pressure 134 mm[Hg] Chitra Batista MD Work Phone: [employer] 03-07-2023 08:52-0400 Body height 162.6 cm Jeronimo Ernestina KAUFMAN Work Phone: [facility] [employer] 03-07-2023 08:52-0400 Body mass index (BMI) [Ratio] 41.2 kg/m2 Jeronimo Ernestina KAUFMAN Work Phone: [facility] [employer] 03-07-2023 08:52-0400 Body weight 108.86 kg Jeronimo Ernestina KAUFMAN Work Phone: [facility] [employer] 03-07-2023 08:52-0400 Diastolic blood pressure 84 mm[Hg] Jeronimo Do Work Phone: [facility] [employer] 03-07-2023 08:52-0400 Respiratory rate 20 /min Jeronimo Do Work Phone: [facility] [employer] 03-07-2023 08:52-0400 SaO2% (BldA) [Mass fraction] 98 % Jeronimo Ernestina KAUFMAN Work Phone: [facility] [employer] 03-07-2023 08:52-0400 Systolic blood pressure 101 mm[Hg] Jeronimo Ernestina KAUFMAN Work Phone: [facility] [employer] 03-07-2023 08:51-0400 Body temperature 98.29 [degF] Jeronimo Do DO Work Phone: [facility] [employer] 03-07-2023 08:51-0400 Heart rate 96 /min Jeronimo Do Work Phone: [facility] [employer] 11-14-2022 08:08-0400 Body height 160 cm Manoj Flores MD Work Phone: [employer] 11-14-2022 08:08-0400 Body mass index (BMI) [Ratio] 41.98 kg/m2 Manoj Flores MD Work Phone: [employer] 11-14-2022 08:08-0400 Body temperature 98.2 [degF] Manoj Flores MD Work Phone: [employer] 11-14-2022 08:08-0400 Body weight 107.5 kg Manoj Flores MD Work Phone: [employer] 11-14-2022 08:08-0400 Diastolic blood pressure 95 mm[Hg] Manoj Flores MD Work Phone: [employer] 11-14-2022 08:08-0400 Heart rate 87 /min Manoj Flores MD Work Phone: [employer] 11-14-2022 08:08-0400 Respiratory rate 20 /min Manoj Flores MD Work Phone: [employer] 11-14-2022 08:08-0400 SaO2% (BldA) [Mass fraction] 98 % Manoj Flores MD Work Phone: [employer] 11-14-2022 08:08-0400 Systolic blood pressure 141 mm[Hg] Manoj Flores MD Work Phone: [employer] 05-29-2022 12:29-0400 Diastolic blood pressure 80 mm[Hg] Tommy Cherry MD Work Phone: [employer] 05-29-2022 12:29-0400 Heart rate 94 /min Tommy Cherry MD Work Phone: [employer] 05-29-2022 12:29-0400 Respiratory rate 16 /min Tommy Cherry MD Work Phone: [employer] 05-29-2022 12:29-0400 Systolic blood pressure 132 mm[Hg] Tommy Cherry MD Work Phone: [employer] 05-29-2022 08:52-0400 Body temperature 98.01 [degF] Tommy Cherry MD Work Phone: [employer] 05-29-2022 08:52-0400 SaO2% (BldA) [Mass fraction] 98 % Tommy Cherry MD Work Phone: MONS[employer]OR[employer] 09-19-2019 17:05-0500 Diastolic blood pressure 76 mm[Hg] Pilar Garcia MD Work Phone: [facility] Work Phone: 09-19-2019 17:05-0500 Heart rate 88 /min Pilar Garcia MD Work Phone: [facility] Work Phone: 09-19-2019 17:05-0500 Respiratory rate 20 /min Pilar Garcia MD Work Phone: [facility] Work Phone: 09-19-2019 17:05-0500 SaO2% (BldA) [Mass fraction] 99 % Pilar Garcia MD Work Phone: [facility] Work Phone: 09-19-2019 17:05-0500 Systolic blood pressure 136 mm[Hg] Pilar Garcia MD Work Phone: [facility] Work Phone: 09-19-2019 15:21-0500 Body mass index (BMI) [Ratio] 41.54 kg/m2 Pilar Garcia MD Work Phone: [facility] Work Phone: 09-19-2019 15:21-0500 Body temperature 98.01 [degF] Pilar Garcia MD Work Phone: [facility] Work Phone: 09-19-2019 15:21-0500 Body weight 109.77 kg Pilar Garcia MD Work Phone: [facility] Work Phone: 05-06-2019 07:59-0400 BMI (Body Mass Index) 38.45 kg/m2 [facility] [place] 05-06-2019 07:59-0400 Body Temperature 98.49 [degF] [facility] 05-06-2019 07:59-0400 Body weight 101.61 kg Hollie Flood [facility] [place] , [place] 05-06-2019 07:59-0400 BP Diastolic 66 mm[Hg] Hollie [place] , [place] 05-06-2019 07:59-0400 BP Systolic 126 mm[Hg] [place]ie [place] 05-06-2019 07:59-0400 Pulse (Heart Rate) 83 /min [place] 05-06-2019 07:59-0400 Pulse Oximetry 97 % Hollie [place] , [place] 05-06-2019 07:59-0400 Respiratory Rate 20 /min [place] Encounters Encounter Date Encounter Type Care Provider Facility Start: 09-27-2024 End: 09-27-2024 Bamboo flowsheet Jenni CAMPBELL Work Phone: [facility] Start: 09-27-2024 End: 09-27-2024 Bamboo flowsmisty CAMPBELL Work Phone: [facility] Start: 09-24-2024 End: 09-24-2024 Emergency department patient visit [facility] Start: 08-23-2024 End: 08-23-2024 Emergency department patient visit Tarun Richards [facility] Start: 07-27-2024 End: 07-27-2024 Clinisync Result Encounter Alfred Rambo DO Work Phone: [facility] Unsolicited Start: 07-27-2024 End: 07-27-2024 Clinisync Result Encounter Alfred Rambo DO Work Phone: [facility] Unsolicited Start: 07-27-2024 End: 07-27-2024 Office outpatient visit 5 minutes [facility] Rambo Nurse [facility] Comment on above: [place]: 15w4d Start: 06-13-2024 End: 06-13-2024 Bamboo flowsheet Alfred Rambo DO Work Phone: [facility] Start: 06-13-2024 End: 06-13-2024 Bamboo flowsheet Alfred Rambo DO Work Phone: [facility] Start: 06-13-2024 End: 06-13-2024 Clinisync Result Encounter Alfred Rambo DO Work Phone: [facility] Unsolicited Start: 06-13-2024 End: 06-13-2024 Office outpatient visit 15 minutes Alfred Rambo DO Work Phone: [facility] Comment on above: Missed menses; Early stage of Start: 06-13-2024 End: 06-13-2024 ambulatory ALFRED RAMBO Not Available Start: 06-02-2024 End: 06-02-2024 Emergency department patient visit RACQUEL SIMPSON [facility] Comment on above: Viral URI with cough (Primary Dx) Start: 03-08-2024 End: 03-08-2024 Emergency department patient visit PILAR LOERA Facility:[facility] Start: 02-21-2024 End: 02-21-2024 ambulatory ALFRED RAMBO Not Available Start: 02-12-2024 End: 02-12-2024 Emergency department patient visit RACQUEL F SIMPSON [facility] Start: 09-08-2023 End: 09-10-2023 Evaluation and management of inpatient AARON CARTAGENA [facility] Start: 09-08-2023 Telephone encounter An Daniels [facility] Start: 09-08-2023 End: 09-08-2023 ambulatory DAMIANYECENIA HERNÁNDEZ [facility] Start: 09-07-2023 End: 09-07-2023 Evaluation and management of inpatient EDWINA Duenas KEIRA [facility] Start: 09-07-2023 Telephone encounter [facility] Comment on above: Hospital Follow-up Start: 09-01-2023 End: 09-06-2023 Evaluation and management of inpatient [facility] Start: 09-01-2023 End: 09-07-2023 Evaluation and management of inpatient MARU NAMITA [facility] Start: 09-01-2023 End: 09-01-2023 Evaluation and management of inpatient PAOLA THOMSON [facility] Start: 09-01-2023 End: 09-01-2023 Evaluation and management of inpatient MIKALA [facility] Start: 08-31-2023 End: 09-01-2023 Evaluation and management of inpatient MIKALA ELLER [facility] Start: 08-31-2023 End: 09-07-2023 Evaluation and management of inpatient ESPERANZA MOLINA [facility] Start: 08-17-2023 End: 08-17-2023 ambulatory JENNI SIMON Not Available Start: 03-13-2023 End: 03-17-2023 Evaluation and management of inpatient MANOJ Jeremiah RAMOS Facility:[facility] Start: 03-07-2023 End: 03-07-2023 Emergency department patient visit Jeronimo Do DO Work Phone: [facility] ED Comment on above: Left flank pain (Monserrat almas Dx) Start: 01-03-2023 End: 01-04-[address] ALFRED RICKS . Facility:[facility] Start: 11-14-2022 End: 11-14-2022 Emergency department patient visit Manoj Flores MD Work Phone: [facility] ED Comment on above: Acute pharyngitis, u nspecified etiology (Primary Dx) Start: 05-25-2022 End: 05-29-2022 Evaluation and management of inpatient RACQUEL SIMPSON [facility] Start: 05-25-2022 End: 05-29-2022 Evaluation and management of inpatient Tommy Cherry MD Work Phone: [facility] Comment on above: PLTCS 05/25/22 F Apg Wt 4#15 (Primary Dx) Start: 05-23-2022 End: 05-25-[address] ALFRED RICKS . Facility:[facility] Start: 05-07-[address] ALFRED RICKS . Facili ty:[facility] Start: 05-04-2022 End: 05-05-[address] ALFRED RICKS . Facility: Start: 06-08-2021 End: 06-08-2021 Subsequent hospital visit by physician [facility] Covid19 Pat Screening Schedule [facility] PRE ADMIT Comment on above: Sinus congestion; Cough; Fever, unspecified fever cause Start: 09-30-2020 End: 09-30-2020 Subsequent hospital visit by physician Racquel Simpson [facility] Laboratory Comment on above: Suspected COVID-19 v irus infection Start: 07-30-2020 End: 07-30-2020 Subsequent hospital visit by physician Racquel Simpson [facility] Laboratory Comment on above: Suspected COVID-19 v irus infection Start: 09-19-2019 End: 09-19-2019 Emergency department patient visit Pilar Garcia MD Work Phone: [facility] ED Comment on above: Lower abdominal pain (Primary Dx); Complication of in second trimester Start: 05-06-2019 End: 05-06-2019 Emergency department patient visit Hollie York Work Phone: [facility] ED Comment on above: Strain of lumbar reg ion, initial encounter (Primary Dx); Morning sickness; Acute pharyngitis, unspecified etiology Procedures Date Procedure Procedure Detail Performing Clinician Start: 07-27-2024 ALL CBC WITH AUTO DIFF Alfred Rambo DO Work Phone: Start: 07-27-2024 Urnls dip stick/tabl et rgnt non-auto w/o micrscp Alfred Rambo DO Work Phone: Start: 06-13-2024 [facility] PREG QUANT HCG Core y Rambo DO Work Phone: Start: 03-15-2023 Antibody screen PILAR LOERA Comment on above: Order Comment: Speci men Type: BLOOD SPECIMEN Ordering Facility: [facility] Address: [address] [place] [address] Performed By: #### 1 [id number], [id number] #### [facility] CLIA [id number] [address] [id number] [place] [id number] [place] [address] [place] Start: 03-07-2023 Comprehensive metabo lic panel Jeronimo Do DO Work Phone: Start: 03-07-2023 Urinalysis microscopic only Jeronimo Do DO Work Phone: Start: 03-07-2023 Urnls dip stick/tabl et rgnt auto w/o microscopy Jeronimo Do DO Work Phone: Start: 11-14-2022 Iaadiadoo streptococ cus group a Manoj Flores MD Work Phone: Start: 05-26-2022 Protein total xcpt refractometry urine Latoyaniall Cherry DO Work Phone: Start: 05-26-2022 Comprehensive [...] cus group a Hollie York Work Phone: denies Tarun Richards Incision of gallbladder Tarun Richards Liver cyst (disorder) Tarun hernández Plan of Treatment Date Care Activity Detail Author Start: 2052 Respiratory Syncytia l Virus (RSV) or age 60 yrs+ (1 - 1-dose 60+ series) Respiratory Syncytial Virus (RSV) or age 60 yrs+ (1 - 1-dose 60+ series) [facility] Start: 09-02-2033 DTaP,Tdap and Td Vac cines (6 - Td or Tdap) DTaP,Tdap and Td Vaccines (6 - Td or Tdap) [facility] Start: 09-02-2033 DTaP/Tdap/Td vaccine (6 - Td or Tdap) DTaP/Tdap/Td vaccine (6 - Td or Tdap) [facility] Start: 09-27-2024 End: 09-27-2024 Patient encounter procedure 09/27/2024 8:50 AM EST Routine [facility] [address] [place] [address] Jenni Simon PA [address] [place] [address] Arrived [facility] Comment on above: Arrived Start: 09-09-2024 Adult BMI Screening Adult BMI Screen ing [facility] Start: 09-06-2024 Adult BMI Screening Adult BMI Screen ing [facility] Start: 08-06-2024 End: 08-06-2024 Patient encounter procedure 08/06/2024 1:00 PM EST Routine [facility] [address] [place] [id number] Alfred Ricks, DO [address] [place] [address] [facility] Start: 07-27-2024 End: 07-27-2025 ABO/Rh ABO/Rh Lab Routine Missed menses , unspecified gestational age Expected: 07/27/2024 (Approximate), Expires: 07/27/2025 [facility] Comment on above: Expected: 07/27/2024 (Approximate), Expires: 07/27/2025 Start: 07-27-2024 End: 07-27-2025 Blood type and Indirect antibody screen panel - Blood Type and screen Lab Routine Missed menses , unspecified gestational age Expected: 07/27/2024 (Approximate), Expires: 07/27/2025 [facility] Work Phone: Comment on above: Expected: 07/27/2024 (Approximate), Expires: 07/27/2025 Start: 07-27-2024 End: 07-27-2025 Drugs of abuse panel - Urine by Screen method Rapid drug screen, urine Lab Routine , unspecified gestational age Encounter for supervision of normal first in first trimester Expected: 07/27/2024 (Approximate), Expires: 07/27/2025 [facility] Healthcare Comment on above: Expected: 07/27/2024 (Approximate), Expires: 07/27/2025 Start: 06-13-2024 End: 06-13-2025 US Pelvis transvaginal US OB transvaginal Imaging Routine Missed menses Expected: 06/13/2024 (Approximate), Expires: 06/13/2025 [facility] Healthcare Comment on above: Expected: 06/13/2024 (Approximate), Expires: 06/13/2025 Start: 06-13-2024 End: 06-13-2024 Patient encounter procedure 06/13/2024 11:30 AM EDT Office Visit [facility] [address] [place] [address] Alfred Ricks, DO [address] [facility] [place] [address] Arrived [facility] Comment on above: Arrived Start: 04-22-2024 COVID-19 Vaccine ( season) COVID-19 Vaccine ( season) [facility] Start: 03-22-2024 Influenza vaccination Flu vaccine (# 1) [facility] Start: 06-01-2023 Depression Screen Depression Screen [facility] Start: 03-22-2023 Influenza vaccination Flu vaccine (# 1) [facility] Start: 03-08-2023 End: 03-07-2024 US RETROPERITONEAL COMPLETE US RETROPERITONEAL COMPLETE Imaging STAT Left flank pain Expected: 03/08/2023, Expires: 03/07/2024 [facility] Comment on above: Expected: 03/08/2023 , Expires: 03/07/2024 Start: 2022 Screening for malign ant neoplasm of cervix [facility] Start: 06-01-2022 End: 06-01-2022 ambulatory 06/01/2022 Visit Obstetrics and Gynecology Kesha Pritchett, DO [address] [place] [address] [facility] Staff Toxicologist [place] Start: 03-22-2022 Influenza vaccination Flu vaccine (# 1) [facility] Start: 04-22-2021 Influenza vaccination Flu vaccine (# 1) [facility] Work Phone: Start: 04-22-2020 Influenza vaccination Flu vaccine (# 1) [place] Start: 04-22-2019 Influenza vaccination Flu vaccine (# 1) [place] Start: 2013 Cervical cancer screen Cervical canc er screen [place] Start: 2013 Screening for malign ant neoplasm of cervix [facility] Start: 2011 DTaP/Tdap/Td vaccine (1 - Tdap) DTaP/Tdap/Td vaccine (1 - Tdap) [facility] Start: 2010 Adult BMI Follow Up Plan Adult BMI F ollow Up Plan [facility] Start: 2010 Hepatitis C screening Hepatitis C wa armando [facility] Start: 2007 HIV screen HIV screen [place], [place] Start: 2007 HIV screening HIV screen [facility] Start: 2007 HPV vaccine (1 - Fem angelica 3-dose series) HPV vaccine (1 - Female 3-dose series) [place] Start: 2005 Varicella Vaccine (1 of 2 - 13+ 2-dose series) Varicella Vaccine (1 of 2 - 13+ 2-dose series) [facility] Start: 2004 COVID-19 Vaccine (1) COVID-19 Vaccin e (1) [facility] [employer] Phone: Start: 2004 Depression Screen Depression Screen [facility] Start: 2004 [facility] Start: 2004 Tobacco Screening Tobacco Screening [facility] Start: 2003 DTaP/Tdap/Td vaccine (1 - Tdap) DTaP/Tdap/Td vaccine (1 - Tdap) [facility] [employer] Phone: Start: 2003 DTaP/Tdap/Td vaccine (5 - Tdap) DTaP/Tdap/Td vaccine (5 - Tdap) [facility] Start: 1996 Polio vaccine (4 of 4 - 4-dose series) Polio vaccine (4 of 4 - 4-dose series) [facility] Start: 1993 Varicella vaccine (1 of 2 - 2-dose childhood series) Varicella vaccine (1 of 2 - 2-dose childhood series) [facility] Start: 02-06-1993 COVID-19 Vaccine (#1) COVID-19 Vacci ne (#1) [facility] Start: 1992 Hepatitis C screening Hepatitis C sc joann [place] Bacteria identified in Urine by Culture Urine culture Microbiology Routine Missed menses Ordered: 07/27/2024 [facility] Comment on above: Ordered: 07/27/2024 CBC W Auto Different ial panel - Blood CBC and differential Lab Routine Missed menses , unspecified gestational age Ordered: 07/27/2024 [facility] Comment on above: Ordered: 07/27/2024 End: 09-30-2020 COVID-19 COVID-19 Lab Routine Suspected COVID-19 virus infection 1 Occurrences starting 09/30/2020 until 09/30/2020 [place] Comment on above: 1 Occurrences starti ng 09/30/2020 until 09/30/2020 COVID-19 [place] End: 06-08-2021 COVID-19 COVID-19 Lab Routine Sinus congestion Cough Fever, unspecified fever cause 1 Occurrences starting 06/08/2021 until 06/08/2021 [facility] Phone: Comment on above: 1 Occurrences starti ng 06/08/2021 until 06/08/2021 End: 07-30-2020 Covid-19 Ambulatory Covid-19 Ambulatory Lab Routine Suspected Covid-19 Virus Infection 1 Occurrences starting 07/30/2020 until 07/30/2020 [place] Comment on above: 1 Occurrences starti ng 07/30/2020 until 07/30/2020 Covid-19 Ambulatory Covid-19 Amb ulatory Lab Routine Suspected COVID-19 virus infection 07/30/2020 10:34 AM EST [place] End: 05-06-2019 CRP [Mass/Vol] C-reactive protein Lab Routine One Time for 1 Occurrences starting 05/06/2019 until 05/06/2019 [place] Comment on above: One Time for 1 Occur rences starting 05/06/2019 until 05/06/2019 CRP [Mass/Vol] C-reactive prote in Lab STAT 05/06/2019 8:32 AM EDT [place] End: 05-29-2022 DRUG SCREEN MULTI URINE DRUG SCREEN MULTI URINE Lab Add-On One Time for 1 Occurrences starting 05/29/2022 until 05/29/2022 [facility] [email or web address] Phone: Comment on above: One Time for 1 Occur rences starting 05/29/2022 until 05/29/2022 hCG, quantitative hCG, quantitat adriana Lab Routine Missed menses Early stage of Ordered: 06/13/2024 [facility] [employer] Work Phone: Comment on above: Ordered: 06/13/2024 Hemoglobin A1c/Hemoglobin.total in Blood Hemoglobin A1c Lab Routine Missed menses , unspecified gestational age Ordered: 07/27/2024 [facility] Comment on above: Ordered: 07/27/2024 Hepatitis B virus gant rface Ag [Presence] in Serum or Plasma by Immunoassay Hepatitis B surface antigen Lab Routine Missed menses , unspecified gestational age Ordered: 07/27/2024 [facility] [employer] Comment on above: Ordered: 07/27/2024 Hepatitis C virus Ab [Presence] in Serum or Plasma by Immunoassay Hepatitis C antibody Lab Routine Missed menses , unspecified gestational age Ordered: 07/27/2024 [facility] [employer] Comment on above: Ordered: 07/27/2024 HIV-1/HIV-2 antigen/antibody combination immunoassay HIV-1 and HIV-2 antibodies Lab Routine Missed menses , unspecified gestational age Ordered: 07/27/2024 [facility] [employer] Comment on above: Ordered: 07/27/2024 Oxygen therapy [[facility] Data Set] Initiate Oxygen Therapy Protocol Respiratory Care Routine Daily until discontinued starting 05/25/2022 [employer] Phone: Comment on above: Daily until disconti nued starting 05/25/2022 Reagin Ab [Presence] in Serum by RPR RPR Lab Routine Missed menses , unspecified gestational age Ordered: 07/27/2024 [employer] Comment on above: Ordered: 07/27/2024 Rubella antibody, IgG Rubella an tibody, IgG Lab Routine Missed menses , unspecified gestational age Ordered: 07/27/2024 [facility] [employer] Comment on above: Ordered: 07/27/2024 Spirometry panel Incentive kavitha metry Respiratory Care Routine Every 2hr while awake until discontinued starting 05/25/2022 [employer] Phone: Comment on above: Every 2hr while awak e until discontinued starting 05/25/2022 End: 03-07-2023 US RETROPERITONEAL COMPLETE US RETROPERITONEAL COMPLETE Imaging Routine Once for 1 Occurrences starting 03/07/2023 until 03/07/2023 [employer] Work Phone: Comment on above: Once for 1 Occurrenc es starting 03/07/2023 until 03/07/2023 Immunizations Immunization Date Immunization Notes Care Provider Fa cility 09-02-2023 tetanus toxoid, redu servando diphtheria toxoid, and acellular pertussis vaccine, adsorbed [facility] 06-01-2022 influenza, injectabl e, quadrivalent, preservative free Manoj Flores MD Work Phone: [employer] 05-29-2022 measles, mumps and rubella virus vaccine Tommy Cherry MD Work Phone: [employer] 05-25-2022 diphtheria, tetanus toxoids and acellular pertussis vaccine, unspecified formulation Tommy Cherry MD Work Phone: [employer] Work Phone: 07-21-2018 influenza, injectabl e, quadrivalent, preservative free Manoj Flores MD Work Phone: [employer] Work Phone: 05-18-2017 influenza, injectabl e, quadrivalent, preservative free Manoj Flores MD Work Phone: [employer] Work Phone: 05-25-2016 influenza virus vaccine, unspecified formulation Manoj Flores MD Work Phone: [employer] Work Phone: 05-27-2015 influenza virus vaccine, whole virus Manoj Flores MD Work Phone: [employer] Work Phone: 05-22-2015 influenza virus vaccine, unspecified formulation Manoj Flores MD Work Phone: [employer] Work Phone: 06-30-2014 influenza virus vaccine, unspecified formulation Manoj Flores MD Work Phone: [employer] Work Phone: 01-18-2014 tuberculin skin test ; purified protein derivative solution, intradermal Hollie York [facility] [employer] 06-21-2013 influenza, seasonal, injectable Tarun Richards [facility] 06-21-2013 tetanus toxoid, redu servando diphtheria toxoid, and acellular pertussis vaccine, adsorbed Tarun Richards [facility] Comment on above: Reason for Medicatio n: Other (see comment) 06-15-2013 influenza virus vaccine, whole virus Manoj Flores MD Work Phone: [employer] Work Phone: 05-19-2011 influenza virus vaccine, unspecified formulation Manoj Flores MD Work Phone: [employer] Work Phone: 04-14-2005 measles, mumps and rubella virus vaccine Manoj Flores MD Work Phone: [employer] Work Phone: 11-25-1993 diphtheria, tetanus toxoids and acellular pertussis vaccine, unspecified formulation Manoj Flores MD Work Phone: [employer] Work Phone: 11-25-1993 haemophilus influenz ae type b vaccine, conjugate unspecified formulation Manoj Flores MD Work Phone: [employer] Work Phone: 11-25-1993 hepatitis B vaccine, pediatric or pediatric/adolescent dosage Manoj Flores MD Work Phone: [employer] Work Phone: 11-25-1993 measles, mumps and rubella virus vaccine Manoj Flores MD Work Phone: [employer] Work Phone: 11-25-1993 trivalent poliovirus vaccine, live, oral Manoj Flores MD Work Phone: [employer] Work Phone: 03-12-1993 diphtheria, tetanus toxoids and pertussis vaccine Manoj Flores MD Work Phone: [employer] Work Phone: 03-12-1993 haemophilus influenz ae type b vaccine, conjugate unspecified formulation Manoj Flores MD Work Phone: [employer] Work Phone: 03-12-1993 hepatitis B vaccine, pediatric or pediatric/adolescent dosage Manoj Flores MD Work Phone: [employer] Work Phone: 1992 diphtheria, tetanus toxoids and pertussis vaccine Manoj Flores MD Work Phone: [employer] Work Phone: 1992 haemophilus influenz ae type b vaccine, conjugate unspecified formulation Manoj Flores MD Work Phone: [employer] Work Phone: 1992 hepatitis B vaccine, pediatric or pediatric/adolescent dosage Manoj Flores MD Work Phone: [employer] Work Phone: 1992 trivalent poliovirus vaccine, live, oral Manoj Flores MD Work Phone: [employer] Work Phone: 1992 diphtheria, tetanus toxoids and pertussis vaccine Manoj Flores MD Work Phone: [employer] Work Phone: 1992 haemophilus influenz ae type b vaccine, conjugate unspecified formulation Manoj Flores MD Work Phone: [employer] Work Phone: 1992 trivalent poliovirus vaccine, live, oral Manoj Flores MD Work Phone: [employer] Work Phone: Payers Date Payer Category Payer Medicaid [employer] [facility] H[facility] [id number] 2023-Present [phone] [address] [place] [address] [id number] 2022 Private Health Insurance [employer] [employer] [id number] 2015 Unknown [employer] [facility] MEDICAID xxxxxxxxxxx 2015-Present [phone] CLAIMS DEPARTMENT [address] [place] [address] xxxxxxxxxxx [id number] 1992 Unknown [id number] 2.16.840.1.387038.3.579.2. 175 1992 Unknown [id number] 2.16.840.1.977405.3.579.2. 593 1992 Unknown [id number] 2.16.840.1.938607.3.579.2. 593 1992 Unknown [id number] 2.16.840.1.198931.3.579.2. 593 1992 Unknown [id number] 2.16.840.1.770415.3.579.2. 593 1992 Unknown [id number] 2.16.840.1.313964.3.579.2. 1286 1992 Unknown [id number] 2.16.840.1.172538.3.579.2. 1286 1992 Unknown [id number] 2.16.840.1.438040.3.579.2. 1286 1992 Unknown [id number] 2.16.840.1.452679.3.579.2. 1286 1992 Unknown [id number] 2.16.840.1.562563.3.579.2. 1286 1992 Unknown [id number] 2.16.840.1.774149.3.579.2. 1286 1992 Unknown [id number] 2.16.840.1.755247.3.579.2. 1286 1992 Unknown [id number] 2.16.840.1.141140.3.579.2. 1286 1992 Unknown [id number] 2.16.840.1.267244.3.579.2. 1286 1992 Unknown [id number] 2.16.840.1.610282.3.579.2. 6 1992 Unknown [id number] 2.16.840.1.971470.3.579.2. 1286 1992 Unknown [id number] 2.16.840.1.351394.3.579.2. 1286 1992 Unknown [id number] 2.16.840.1.558478.3.579.2. 174 1992 Unknown [id number] 2.16.840.1.850528.3.579.2. 174 1992 Unknown [id number] 2.16.840.1.393490.3.579.2. 1259 1992 Unknown [id number] 2.16.840.1.297555.3.579.2. 1259 1992 Unknown [id number] 2.16.840.1.131807.3.579.2. 1259 1992 Unknown [id number] 2.16.840.1.419458.3.579.2. 727 1992 Unknown [id number] 2.16.840.1.223278.3.579.2. 727 1992 Unknown [id number] 2.16.840.1.228386.3.579.2. 903 1959 Self-pay 1959 Unknown [id number] [id number]. 7.3.183087.315 1959 Unknown [id number] Social History Date Type Detail Facility Start: 07-30-2020 End: 02-21-2024 Tobacco smoking status NHIS Former smoker [employer] Start: 02-16-2020 End: 02-15-2022 History of tobacco use Cigarette Smoker [place] Start: 07-30-2020 End: 06-13-2024 Cigarettes smoked current (pack per day) - Reported [place] Start: 07-30-2020 End: 03-07-2023 Tobacco use and exposure Never used [place] Start: 07-30-2020 End: 06-02-2024 Alcohol intake Current non-drinker of alcohol (finding) [facility] Phone: Start: 07-14-2015 Alcohol Comment less than once a wee k [place] Start: 1992 Sex Assigned At Not on file M [place] Start: 05-06-2019 End: 06-13-2024 Alcohol intake No [place] Start: 02-16-2020 End: 02-15-2022 History of tobacco use Current smoker [employer] Phone: Start: 11-04-2022 End: 11-14-2022 Exposure to SARS-CoV-2 (event) Not sure [employer] Phone: Start: 03-07-2023 History SDOH Alcohol Frequency 1 [employer] [facility] Start: 03-07-2023 History SDOH Alcohol Std Drinks 0 [employer] Tobacco smoking stat NHIS Tobacco smoking consumption unknown [facility] How often to you hav e a drink containing alcohol? Never [facility] Start: 04-03-2024 End: 07-27-2024 Alcoholic beverage intake Lifetime non-drinker (finding) [facility] Start: 04-11-2023 Alcohol Comment Caffeine: > 4 cups/d ay [facility] Start: 04-23-2024 [facility] Start: 09-14-2015 Tobacco smoking status Smokes tobacco daily (finding) [facility] Comment on above: 08/25 PPD Goals Date Patient Goal Desired Activity /State Personal health goal Functional Status Date Assessment Result Facility 08-23-2024 Functional Status N/A [facility] Clinical Notes 09-19-2019 to 08-23-2024 Gladys Brooks LPN - 07/27/2024 11:00 AM Miguelina Shepard LPN - 06/13/2024 11:30 AM EDTTelephone Encounter - An Trevor - 09/08/2023 1:20 PM ESTDischarge InstructionsAttachments Note Date & Type Note Facility 08-23-2024 Hospital Discharge instructions Patient Education 08/23/2024 18:11:50 Community-Acquired Pneumonia, Adult Community-Acquired Pneumonia, Adult Pneumonia is a lung infection that causes inflammation and the buildup of mucus and fluids in the lungs. This may cause coughing and difficulty breathing. Community-acquired pneumonia is pneumonia that develops in people who are not, and have not recently been, in a hospital or other health care facility. Usually, pneumonia develops as a result of an illness that is caused by a virus, such as the common cold and the flu (influenza). It can also be caused by bacteria or fungi. While the common cold and influenza can pass from person to person (are contagious), pneumonia itself is not considered contagious. What are the causes? This condition may be caused by: Viruses. Bacteria. Fungi. What increases the risk? The following factors may make you more likely to develop this condition: Being over age 65 or having certain medical conditions, such as: ?A long-term (chronic) disease, such as: chronic obstructive pulmonary disease (COPD), asthma, heart failure, diabetes, or kidney disease. ?A condition that increases the risk of breathing in (aspirating) mucus and other fluids from your mouth and nose. ?A weakened body defense system (immune system). Having had your spleen removed (splenectomy). The spleen is the organ that helps fight germs and infections. Not cleaning your teeth and gums well (poor dental hygiene). Using tobacco products. Traveling to places where germs that cause pneumonia are present or being near certain animals or animal habitats that could have germs that cause pneumonia. What are the signs or symptoms? Symptoms of this condition include: A dry cough or a wet (productive) cough. A fever, sweating, or chills. Chest pain, especially when breathing deeply or coughing. Fast breathing, difficulty breathing, or shortness of breath. Tiredness (fatigue) and muscle aches. How is this diagnosed? This condition may be diagnosed based on your medical history or a physical exam. You may also have tests, including: Imaging, such as a chest X-ray or lung ultrasound. Tests of: ?The level of oxygen and other gases in your blood. ?Mucus from your lungs (sputum). ?Fluid around your lungs (pleural fluid). ?Your urine. How is this treated? Treatment for this condition depends on many factors, such as the cause of your pneumonia, your medicines, and other medical conditions that you have. For most adults, pneumonia may be treated at home. In some cases, treatment must happen in a hospital and may include: Medicines that are given by mouth (orally) or through an IV, including: ?Antibiotic medicines, if bacteria caused the pneumonia. ?Medicines that kill viruses (antiviral medicines), if a virus caused the pneumonia. Oxygen therapy. Severe pneumonia, although rare, may require the following treatments: Mechanical ventilation.This procedure uses a machine to help you breathe if you cannot breathe well on your own or maintain a safe level of blood oxygen. Thoracentesis. This procedure removes any buildup of pleural fluid to help with breathing. Follow these instructions at home: Medicines Take [id number]-[id number] and prescription medicines only as told by your health care provider. Take cough medicine only if you have trouble sleeping. Cough medicine can prevent your body from removing mucus from your lungs. If you were prescribed antibiotics, take them as told by your health care provider. Do not stop taking the antibiotic even if you start to feel better. Lifestyle Do not drink alcohol. Do not use any products that contain nicotine or tobacco. These products include cigarettes, chewing tobacco, and vaping devices, such as e-cigarettes. If you need help quitting, ask your health care provider. Eat a healthy diet. This includes plenty of vegetables, fruits, whole grains, low-fat dairy products, and lean protein. General instructions Rest a lot and get at least 8 hours of sleep each night. Sleep in a partly upright position at night. Place a few pillows under your head or sleep in a reclining chair. Return to your normal activities as told by your health care provider. Ask your health care provider what activities are safe for you. Drink enough fluid to keep your urine pale yellow. This helps to thin the mucus in your lungs. If your throat is sore, gargle with a mixture of salt and water 3 4 times a day or as needed. To make salt water, completely dissolve 1 tsp (3 6 g) of salt in 1 cup (237 mL) of warm water. Keep all follow-up visits. How is this prevented? You can lower your risk of developing community-acquired pneumonia by: Getting the pneumonia vaccine. There are different types and schedules of pneumonia vaccines. Ask your health care provider which option is best for you. Consider getting the pneumonia vaccine if: ?You are older than 65 years of age. ?You are 19 65 years of age and are receiving cancer treatment, have chronic lung disease, or have other medical conditions that affect your immune system. Ask your health care provider if this applies to you. Getting your influenza vaccine every year. Ask your health care provider which type of vaccine is best for you. Getting regular dental checkups. Washing your hands often with soap and water for at least 20 seconds. If soap and water are not available, use hand mental health orderly. Contact a health care provider if: You have a fever. You have trouble sleeping because you cannot control your cough with cough medicine. Get help right away if: Your shortness of breath becomes worse. Your chest pain increases. Your sickness becomes worse, especially if you are an older adult or have a weak immune system. You cough up blood. These symptoms may be an emergency. Get help right away. Call 911. Do not wait to see if the symptoms will go away. Do not drive yourself to the hospital. Summary Pneumonia is an infection of the lungs. Community-acquired pneumonia develops in people who have not been in the hospital. It can be caused by bacteria, viruses, or fungi. This condition may be treated with antibiotics or antiviral medicines. Severe pneumonia may require a hospital stay and treatment to help with breathing. This information is not intended to replace advice given to you by your health care provider. Make sure you discuss any questions you have with your health care provider. Document Revised: 10/06/2022 Document Reviewed: 10/06/2022 [employer] Patient Education 2023 [employer]. 08/23/2024 18:11:50 Asthma, Adult Asthma, Adult Asthma is a long-term (chronic) condition that causes recurrent episodes in which the lower airways in the lungs become tight and narrow. The narrowing is caused by inflammation and tightening of the smooth muscle around the lower airways. Asthma episodes, also called asthma attacks or asthma flares, may cause coughing, making high-pitched whistling sounds when you breathe, most often when you breathe out (wheezing), shortness of breath, and chest pain. The airways may produce extra mucus caused by the inflammation and irritation. During an attack, it can be difficult to breathe. Asthma attacks can range from minor to life-threatening. Asthma cannot be cured, but medicines and lifestyle changes can help control it and treat acute attacks. It is important to keep your asthma well controlled so the condition does not interfere with your daily life. What are the causes? This condition is believed to be caused by inherited (genetic) and environmental factors, but its exact cause is not known. What can trigger an asthma attack? Many things can bring on an asthma attack or make symptoms worse. These triggers are different for every person. Common triggers include: Allergens and irritants like mold, dust, pet dander, cockroaches, pollen, air pollution, and chemical odors. Cigarette smoke. Weather changes and cold air. Stress and strong emotional responses such as crying or laughing hard. Certain medications such as aspirin or beta blockers. Infections and inflammatory conditions, such as the flu, a cold, pneumonia, or inflammation of the nasal membranes (rhinitis). Gastroesophageal reflux disease (GERD). What are the signs or symptoms? Symptoms may occur right after exposure to an asthma trigger or hours later and can vary by person. Common signs and symptoms include: Wheezing. Trouble breathing (shortness of breath). Excessive nighttime or [employer] coughing. Chest tightness. Tiredness (fatigue) with minimal activity. Difficulty talking in complete sentences. Poor exercise tolerance. How is this diagnosed? This condition is diagnosed based on: A physical exam and your medical history. Tests, which may include: ?Lung function studies to evaluate the flow of air in your lungs. ?Allergy tests. ?Imaging tests, such as X-rays. How is this treated? There is no cure, but symptoms can be controlled with proper treatment. Treatment usually involves: Identifying and avoiding your asthma triggers. Inhaled medicines. Two types are commonly used to treat asthma, depending on severity: ?Controller medicines. These help prevent asthma symptoms from occurring. They are taken every day. ?Fast-acting reliever or rescue medicines. These quickly relieve asthma symptoms. They are used as needed and provide short-term relief. Using other medicines, such as: ?Allergy medicines, such as antihistamines, if your asthma attacks are triggered by allergens. ?Immune medicines (immunomodulators). These are medicines that help control the immune system. Using supplemental oxygen. This is only needed during a severe episode. Creating an asthma action plan. An asthma action plan is a written plan for managing and treating your asthma attacks. This plan includes: ?A list of your asthma triggers and how to avoid them. ?Information about when medicines should be taken and when their dosage should be changed. ?Instructions about using a device called a peak flow meter. A peak flow meter measures how well the lungs are working and the severity of your asthma. It helps you monitor your condition. Follow these instructions at home: Take [id number] and prescription medicines only as told by your health care provider. Stay up to date on all vaccinations as recommended by your healthcare provider, including vaccines for the flu and pneumonia. Use a peak flow meter and keep track of your peak flow readings. Understand and use your asthma action plan to address any asthma flares. Do not smoke or allow anyone to smoke in your home. Contact a health care provider if: You have wheezing, shortness of breath, or a cough that is not responding to medicines. Your medicines are causing side effects, such as a rash, itching, swelling, or trouble breathing. You need to use a reliever medicine more than 2 3 times a week. Your peak flow reading is still at 50 79% of your personal best after following your action plan for 1 hour. You have a fever and shortness of breath. Get help right away if: You are getting worse and do not respond to treatment during an asthma attack. You are short of breath when at rest or when doing very little physical activity. You have difficulty eating, drinking, or talking. You have chest pain or tightness. You develop a fast heartbeat or palpitations. You have a bluish color to your lips or fingernails. You are light-headed or dizzy, or you faint. Your peak flow reading is less than 50% of your personal best. You feel too tired to breathe normally. These symptoms may be an emergency. Get help right away. Call 911. Do not wait to see if the symptoms will go away. Do not drive yourself to the hospital. Summary Asthma is a long-term (chronic) condition that causes recurrent episodes in which the airways become tight and narrow. Asthma episodes, also called asthma attacks or asthma flares, can cause coughing, wheezing, shortness of breath, and chest pain. Asthma cannot be cured, but medicines and lifestyle changes can help keep it well controlled and prevent asthma flares. Make sure you understand how to avoid triggers and how and when to use your medicines. Asthma attacks can range from minor to life-threatening. Get help right away if you have an asthma attack and do not respond to treatment with your usual rescue medicines. This information is not intended to replace advice given to you by your health care provider. Make sure you discuss any questions you have with your health care provider. Document Revised: 05/26/2022 Document Reviewed: 05/17/2022 [employer] Patient Education 2023 [employer]. Follow Up Care 08/23/2024 15:31:53 With:Racquel Simpson Address: [address] [place] [address]. [address] [place] [phone] Business (1) When:08/26/2024 18:02:53 [facility] 08-23-2024 Note ED Patient Education Note Infectious Disease Community-Acquired Pneumonia, Adult Pneumonia is a lung infection that causes inflammation and the buildup of mucus and fluids in the lungs. This may cause coughing and difficulty breathing. Community-acquired pneumonia is pneumonia that develops in people who are not, and have not recently been, in a hospital or other health care facility. Usually, pneumonia develops as a result of an illness that is caused by a virus, such as the common cold and the flu (influenza). It can also be caused by bacteria or fungi. While the common cold and influenza can pass from person to person (are contagious), pneumonia itself is not considered contagious. What are the causes? This condition may be caused by: ??? Viruses. ??? Bacteria. ??? Fungi. What increases the risk? The following factors may make you more likely to develop this condition: ??? Being over age 65 or having certain medical conditions, such as: ? A long-term (chronic) disease, such as: chronic obstructive pulmonary disease (COPD), asthma, heart failure, diabetes, or kidney disease. ? A condition that increases the risk of breathing in (aspirating) mucus and other fluids from your mouth and nose. ? A weakened body defense system (immune system). ??? Having had your spleen removed (splenectomy). The spleen is the organ that helps fight germs and infections. ??? Not cleaning your teeth and gums well (poor dental hygiene). ??? Using tobacco products. ??? Traveling to places where germs that cause pneumonia are present or being near certain animals or animal habitats that could have germs that cause pneumonia. What are the signs or symptoms? Symptoms of this condition include: ??? A dry cough or a wet (productive) cough. ??? A fever, sweating, or chills. ??? Chest pain, especially when breathing deeply or coughing. ??? Fast breathing, difficulty breathing, or shortness of breath. ??? Tiredness (fatigue) and muscle aches. How is this diagnosed? This condition may be diagnosed based on your medical history or a physical exam. You may also have tests, including: ??? Imaging, such as a chest X-ray or lung ultrasound. ??? Tests of: ? The level of oxygen and other gases in your blood. ? Mucus from your lungs (sputum). ? Fluid around your lungs (pleural fluid). ? Your urine. How is this treated? Treatment for this condition depends on many factors, such as the cause of your pneumonia, your medicines, and other medical conditions that you have. For most adults, pneumonia may be treated at home. In some cases, treatment must happen in a hospital and may include: ??? Medicines that are given by mouth (orally) or through an IV, including: ? Antibiotic medicines, if bacteria caused the pneumonia. ? Medicines that kill viruses (antiviral medicines), if a virus caused the pneumonia. ??? Oxygen therapy. Severe pneumonia, although rare, may require the following treatments: ??? Mechanical ventilation.This procedure uses a machine to help you breathe if you cannot breathe well on your own or maintain a safe level of blood oxygen. ??? Thoracentesis. This procedure removes any buildup of pleural fluid to help with breathing. Follow these instructions at home: Medicines ??? Take hheb-lba-zqrlbgp and prescription medicines only as told by your health care provider. ??? Take cough medicine only if you have trouble sleeping. Cough medicine can prevent your body from removing mucus from your lungs. ??? If you were prescribed antibiotics, take them as told by your health care provider. Do not stop taking the antibiotic even if you start to feel better. Lifestyle ??? Do not drink alcohol. ??? Do not use any products that contain nicotine or tobacco. These products include cigarettes, chewing tobacco, and vaping devices, such as e-cigarettes. If you need help quitting, ask your health care provider. ??? Eat a healthy diet. This includes plenty of vegetables, fruits, whole grains, low-fat dairy products, and lean protein. General instructions ??? Rest a lot and get at least 8 hours of sleep each night. ??? Sleep in a partly upright position at night. Place a few pillows under your head or sleep in a reclining chair. ??? Return to your normal activities as told by your health care provider. Ask your health care provider what activities are safe for you. ??? Drink enough fluid to keep your urine pale yellow. This helps to thin the mucus in your lungs. ??? If your throat is sore, gargle with a mixture of salt and water 3?4 times a day or as needed. To make salt water, completely dissolve ??1 tsp (3?6 g) of salt in 1 cup (237 mL) of warm water. ??? Keep all follow-up visits. How is this prevented? You can lower your risk of developing commu (more content not included)... [facility] 07-27-2024 History of Present illness Narrative Reason for Appointment: Patient ID: Qian Clements is a 33 y.o. female who presents for Amenorrhea Patient presents today for a Nurse OB Intake appointment. Patient is 15w4d with a Estimated Date of Delivery: 01/14/25 OB History Para Term AB Living 9 5 1 4 3 5 SAB IAB Ectopic Multiple Live Births 3 5 # Outcome Date GA Lbr Rick/2nd Weight Sex Type Anes PTL Lv 9 Current 8 SAB 02/17/24 7 08/31/23 33w0d 4 lb 9.4 oz M Gen N NENA 6 05/25/22 33w1d 4 lb 15.4 oz F CS-LTranv Gen N NENA Complications: Eclampsia in labor 5 11/22/19 35w0d 6 lb 7 oz F Vag-Spont NENA Complications: Pre-eclampsia 4 Term 03/06/15 38w0d 8 lb 12.8 oz M Vag-Spont NENA 3 06/21/13 35w0d 5 lb 8 oz F Vag-Spont NENA Complications: Pre-eclampsia 2 2011 1 2010 Current Medications: has a current medication list which includes the following prescription(s): labetalol, metoclopramide, omeprazole, and ondansetron odt. 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 Tinea corporis Family History Problem Relation Name Age of Onset Kidney disease Maternal Grandmother Thyroid disease Maternal Grandmother Diabetes Maternal Grandmother Hypertension Maternal Grandmother Stroke Maternal Grandmother CVA (cerebral infarction) Hypertension Maternal Grandfather Hyperlipidemia Maternal Grandfather Social History Tobacco Use Smoking status: Former Current packs/day: 0.00 Types: Cigarettes Quit date: 2011 Years since quittin.9 Smokeless tobacco: Not on file Substance Use Topics Alcohol use: Never Comment: Caffeine: > 4 cups/day Drug use: Never Past Surgical History: Procedure Laterality Date APPENDECTOMY 08/15/2017 SECTION, CLASSIC 08/31/2023 x2 SECTION, LOW TRANSVERSE 05/25/2022 CHOLECYSTECTOMY 01/2016 CT ANGIO HEAD 03/08/2024 CT ANGIO HEAD 03/08/2024 CT ANGIOGRAM CHEST 07/17/2023 CT ANGIOGRAM CHEST LIVER SURGERY partial removal LIVER SURGERY 01/2016 e/o hematoma from liver PAP SMEAR 07/05/2019 negative Allergies Allergen Reactions Codeine Seizures, Unknown and GI intolerance Convulsions per mother Octacosanol Other Reaction(s): Unknown Ciprofloxacin Nausea And Vomiting, Unknown and GI intolerance Promethazine Nausea And Vomiting, Unknown and GI intolerance Convulsions per mother Vitals: Estimated body mass index is 43.39 kg/m as calculated from the following: Height as of 01/03/23: 5' 4 . Weight as of this encounter: 252 lb 12.8 oz. BP: Patient's last menstrual period was 04/09/2024. Assessment/Plan Diagnoses and all orders for this visit: Missed menses - Type and screen; Future - ABO/Rh; Future - CBC and differential - Hemoglobin A1c - RPR - Rubella antibody, IgG - Hepatitis B surface antigen - Hepatitis C antibody - HIV-1 and HIV-2 antibodies - Urine culture - POCT , urine manually resulted - POCT urinalysis dipstick manually resulted , unspecified gestational age - Type and screen; Future - ABO/Rh; Future - CBC and differential - Hemoglobin A1c - RPR - Rubella antibody, IgG - Hepatitis B surface antigen - Hepatitis C antibody - HIV-1 and HIV-2 antibodies - Rapid drug screen, urine; Future Encounter for supervision of normal first in first trimester - Rapid drug screen, urine; Future Nurse Note: OB Intake: Patient presents today for first OB visit. Patients history has been reviewed in great detail including any potential risks. Patient signed consent forms and patient desires testing in both trimesters. Patient currently has no complaints and has been advised to drink 6-8 glasses of water a day, eat no raw or undercooked meat, and stay away from [facility]. Patient has also been advised to not change litter boxes and eat 6 small meals a day. Patient has been consulted regarding the do's and don'ts of . Patient was given labs and all questions and concerns were answered. Follow Up: Patient is to return in 4 weeks for routine OB appointment. Follow Up: Patient is to have labs drawn at directed and return to office for initial OB appointment with provider. Patient may call office as needed with any concerns or questions. Nurse Visit Completed by: Gladys Brooks LPN documented in this encounter [facility] 06-13-2024 History of Present illness Narrative Reason for Appointment: Patient ID: Qian Clements is a 33 y.o. female who presents for Discuss options (Pt is currently w/LMP of 04/11/2024.) Patient presents today for Acute Visit. MEDICATIONS Current Outpatient Medications Medication Instructions labetalol (NORMODYNE) 100 mg, Oral, 2 times daily metoclopramide (REGLAN) 10 mg, Oral, 3 times daily before meals, Take 1 tablet by mouth 30 minutes prior to meals 3 times daily as needed for nausea. omeprazole (PRILOSEC) 20 mg, Oral, Daily before breakfast, Do not crush or chew. ondansetron ODT (ZOFRAN-ODT) 4 mg, Oral, Every 6 hours PRN ALLERGIES Allergies Allergen Reactions Codeine Seizures, Unknown and GI intolerance Convulsions per mother Ciprofloxacin Nausea And Vomiting, Unknown and GI intolerance Promethazine Nausea And Vomiting, Unknown and GI intolerance Convulsions per mother PROBLEMS Active Ambulatory Problems Diagnosis Date Noted No Active Ambulatory Problems Resolved Ambulatory Problems Diagnosis Date Noted No Resolved Ambulatory Problems Past Medical History: Diagnosis Date ADHD (attention deficit hyperactivity disorder) ([facility]) Allergic rhinitis Arthritis Breast lump on left side at 12 o'clock position Depression ([facility]) History of medical problems History of pre-eclampsia Never smoked tobacco 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 Tinea corporis HISTORY PAST MEDICAL HISTORY SOCIAL HISTORY Past Medical History: Diagnosis Date ADHD (attention deficit hyperactivity disorder) ([facility]) Allergic rhinitis Arthritis Breast lump on left side at 12 o'clock position Depression ([facility]) History of medical problems OM History of pre-eclampsia Never smoked tobacco 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 Tinea corporis Social History Tobacco Use Smoking status: Former Current packs/day: 0.00 Types: Cigarettes Quit date: 2011 Years since quittin.8 Smokeless tobacco: Not on file Substance Use Topics Alcohol use: Never Comment: Caffeine: > 4 cups/day Drug use: Never FAMILY HISTORY Family History Problem Relation Name Age of Onset Kidney disease Maternal Grandmother Thyroid disease Maternal Grandmother Diabetes Maternal Grandmother Hypertension Maternal Grandmother Stroke Maternal Grandmother CVA (cerebral infarction) Hypertension Maternal Grandfather Hyperlipidemia Maternal Grandfather SURGICAL HISTORY Past Surgical History: Procedure Laterality Date APPENDECTOMY 08/15/2017 SECTION, CLASSIC 08/31/2023 x2 SECTION, LOW TRANSVERSE 05/25/2022 CHOLECYSTECTOMY 01/2016 CT ANGIO HEAD 03/08/2024 CT ANGIO HEAD 03/08/2024 CT ANGIOGRAM CHEST 07/17/2023 CT ANGIOGRAM CHEST LIVER SURGERY partial removal LIVER SURGERY 01/2016 e/o hematoma from liver PAP SMEAR 07/05/2019 negative REVIEW OF SYSTEMS Review of Systems: Review of Systems Constitutional: Negative. HENT: Negative. Eyes: Negative. Respiratory: Negative. Cardiovascular: Negative. Gastrointestinal: Negative. Genitourinary: Negative. Musculoskeletal: Negative. Skin: Negative. Neurological: Negative. All other systems reviewed and are negative. Hematological: Negative. Endocrine: Negative. Allergic/Immunologic: Negative. OBJECTIVE Objective: Physical Exam Constitutional: Appearance: Normal appearance. She is well-developed. Cardiovascular: Rate and Rhythm: Normal rate and regular rhythm. Pulmonary: Effort: Pulmonary effort is normal. Breath sounds: Normal breath sounds. Abdominal: General: Bowel sounds are normal. There is no distension. Palpations: Abdomen is soft. Tenderness: There is no abdominal tenderness. There is no guarding or rebound. Musculoskeletal: General: No swelling. Normal range of motion. Right lower leg: No edema. Left lower leg: No edema. Neurological: Mental Status: She is alert and oriented to person, place, and time. Skin: General: Skin is warm and dry. Psychiatric: Mood and Affect: Mood normal. Behavior: Behavior normal. Vitals and nursing note reviewed. Exam conducted with a power electronics research engineer present. Vitals: Estimated body mass index is 42.4 kg/m as calculated from the following: Height as of 01/03/23: 5' 4 . Weight as of this encounter: 247 lb. BP: 124/74 Patient's last menstrual period was 04/11/2024 (approximate). ASSESSMENT & PLAN ICD-10-CM 1. Missed menses N92.6 2. Early stage of Z34.90 Documented by Kassandra Shepard LPN on behalf of: Alfred Ricks DO documented in this encounter [facility] 03-08-2024 Note HNO ID: [id number] Author: AROLDO CONN RT(R) Service: ? Author Type: Trade Manager Type: Progress Notes Filed: 03/08/2024 17:25 Note [...] PATIENT PRESENTS WITH AN IMPLANTABLE OR ATTACHED ASBESTOS WIRE FINISHER: No ALLERGIES: Reviewed and unchanged CONTRAST ALLERGY: [...] DATE: March 08, 2024 TIME: 5:24 PM [facility] 09-08-2023 Miscellaneous Notes Pt called stating [...] afternoon. She is currently being driven to [facility] by her boyfriend. Dr. Landa [...] with JENNIFER Ramirez documented in this encounter [facility] 09-08-2023 Telephone encounter Note Pt called stating [...] afternoon. She is currently being driven to [facility] by her boyfriend. Dr. Landa updated. [facility] 09-08-2023 Telephone encounter Note I saw and evaluated the patient with the student CNM. I reviewed the student CNM note. I agree with the student CNM findings and plan with review of items for learning. I have made adjustments & discussed note & care for this patient. Breana Harris APRN, CNM talked with pt via phone with JENNIFER Ramirez [facility] Work Phone: 09-07-2023 Miscellaneous Notes Message from the 09/06/23 discharge list per RDG. He signed off patient care from [facility] Dx Eclampsia Mjnv-dt-kpoanffp mitral regurgitation History of reported still's disease Patient to f/u in 1 to 2 weeks post d/c bvb PT [facility] AD[facility]ITT[facility]23 Telephone encounter Note Message from the 09/06/23 discharge list per RDG. He signed off patient care from [facility] Dx Eclampsia Bfyg-iy-ffojdqya mitral regurgitation History of reported still's disease Patient to f/u in 1 to 2 weeks post d/c bvb [facility] 09-07-2023 Telephone encounter Note PT STILL ADMITTED [facility] 03-17-2023 Note HNO ID: [id number] Author: Domonique Kaplan Service: ? Author Type: Stack Clerk Type: Plan of Care Filed: 03/17/2023 2:18 PM Note Text: PHARMACY BEDSIDE DELIVERY SERVICE Patient Name: Qian Clements The marked outpatient medications were Filled at: [facility] and delivered to the [...] your Primary Care Provider. Domonique Kaplan PAGER: [phone] March 17, 2023 2:17 PM [facility] 03-17-2023 Note HNO ID: [id number] Author: Kristin Wang RPh Service: Pharmacy Author [...] Wang RPh March 17, 2023 12:41 PM [id number] Medication List START taking these medications amoxicillin-clavulanic [...] Medications These medications were sent to [facility] [address] [place] [address] Hours: Tuesday-Tuesday 7am-8pm, Tuesday, Tuesday and Holidays 9am-5pm amoxicillin-clavulanic acid 875-125 mg per tablet multivitamin 28 mg iron- 800 mcg tab(s) [facility] 03-16-2023 Note HNO ID: [id number] Author: Manoj Ramos MD Service: General Internal Medicine Author Type: Physician Type: Progress Notes Filed: 03/16/2023 5:27 PM Note Text: Internal Medicine [place] progress note After 5 PM on weekdays [...] Liver Function, Amylase, AND Lipase Recent Labs 03/16/2392403/15/23150903/14/23 0954 03/13/23 1456 ALB 3.6* 3.7* 3.6* [...] Plan: - Consider (more content not included)... [facility] 03-15-2023 Note HNO ID: [id number] Author: Domonique Kaplan Service: ? Author Type: Stack Clerk Type: Plan of Care Filed: 03/15/2023 12:18 PM Note Text: Insurance investigation completed Patient has active prescription insurance: Yes - Patient's insurance is in-network with [facility] Insurance loaded into [place]: Yes Test claim was completed to verify insurance is active: Successful Any questions, please contact your medication communications coordinator. Pager #: [phone] [facility] 03-15-2023 Note HNO ID: [id number] Author: Manoj Ramos MD Service: General Internal Medicine Author Type: Physician Type: Progress Notes Filed: 03/15/2023 2:05 PM Note Text: Internal Medicine [place] progress note After 5 PM on weekdays [...] infection first. Ferritin (more content not included)... [facility] 03-14-2023 Note HNO ID: [id number] Author: Robyn Borrego RN Service: ? Author Type: Registered Nurse Type: Nursing Progress Note Filed: 03/14/2023 6:24 PM Note Text: 181 Patient staes she is having spotting. Jeremiah Cantu notified and states to monitor. Jimmy Borrego RN [facility] 03-14-2023 Note HNO ID: [id number] Author: Kristin Wang RPh Service: Pharmacy Author Type: Pharmacist Type: Plan of Care Filed: 03/14/2023 12:02 PM Note Text: PHARMACY MEDICATION REVIEW Patient Name: Qian Clements : 1990 The following medications were updated within the BOOKKEEPING MANAGER medication list: Medications ADDED to BOOKKEEPING MANAGER medication list vitamin 1 tablet PO daily Acetaminophen 650 mg PO Q6hr prn pain, fever Ondansetron 4 mg PO q6hr prn N/V Medications CHANGED on BOOKKEEPING MANAGER medication list none Medications REMOVED from BOOKKEEPING MANAGER medication list Pulmicort Flexhaler Colchicine Omeprazole Prednisone Additional comments: patient confirmed stopped taking dextroamphetamine-amphetamine. The below information represents the best possible medication history: Yes Medication history completed by: Pharmacist: Kristin Wang RPh Source of history: Patient: Reliability of source: Appears reliable, clearly identified: Medication name, Medication dose, Medication route, and Medication frequency and Pharmacy records: [facility] Medication nonadherence identified: No barriers noted Reconciliation completed: Yes Completed by: Kristin Wang PharmD Discussed with LIP, plans to add vitamin based on updated medication history Patient interested in Bedside Delivery Services or using OP Pharmacy at discharge? Unable to assess Preferred outpatient pharmacy: [facility] [address] [place] [phone] Allergies: Ciprofloxacin Vomiting Codeine Vomiting Comment:Convulsions per [...] Facility-Administered Medications: None Kristin Wang RPh 03/14/2023 [id number] [facility] 03-14-2023 Note HNO ID: [id number] Author: Manoj Ramos MD Service: General Internal [...] 3 PM on weekends page Night Team [facility] STAFF PHYSICIAN NOTE OF PERSONAL INVOLVEMENT IN CARE I have reviewed the progress note obthank (more content not included)... [facility] 03-13-2023 Note HNO ID: [id number] Author: Sabrina Castro MD Service: Gynecology Author Type: Resident Type: Plan of Care Filed: 03/13/2023 5:19 PM Note Text: Attestation signed by Pinky Rodriguez DO at 03/13/2023 6:04 PM Routine OB guidelines/recommendations as documented. 03/13/2023 6:04 PM Pinky Rodriguez DO CONSTRUCTION PROJECT ASSISTANT Resident Plan of Care Note 05:13 PM Primary care paged OIL FIELD LABORER regarding recommended imaging for nephrolithiasis in the setting of 1st trimester of . Advised team to begin with renal bladder ultrasound. Advised team to avoid abdominal CT unless absolutely necessary. General guidelines are listed below. Sabrina Castro MD CONSTRUCTION PROJECT ASSISTANT Resident, PGY-3 General guidelines In general, goals [...] for use in acute pain. Avoid NSAIDs. penitentiary narcotic exposure can lead to maternal and [...] - Could use if needed Avoid Tramadolol/Barbuturites. [facility] 03-13-2023 Note HNO ID: [id number] Author: Maira Egan RT(R) Service: Radiology Author [...] RT Angel(R) March 13, 2023 1:06 PM [facility] 03-07-2023 Hospital Discharge instructions Jeronimo Do DO - 03/07/2023 9:43 AM EDT Continue antibiotic as presccribed. Continue Tylenol as needed for pain. Follow-up with your OB for re evaluation. The following attachments cannot be sent through Care Everywhere.[facility] Pain ([place])documented in this encounter [facility] 05-29-2022 History of Present illness Narrative Images [...] Headache Eclampsia (G6) [facility] 05/25/22 F Apg 8 Wt 4#15 state Postoperative state Today she [...] - EBL 1000 - S/p TXA and MT cytotec - Bleeding stable, vitals stable - [...] patient Attending Physician: Dr. Dilip Curiel, DO Staff Toxicologist Resident 05/29/2022, 2:59 AM Attending Physician Statement [...] with patient Attending Physician: Dr. Pawel Cherry, Staff Toxicologist Resident 05/28/2022, 2:43 AM Date: 05/28/2022 Time: [...] Headache Eclampsia (G6) PLTCS 05/25/22 F Apg 03/30 Wt 4#15 Today she is doing well [...] reviewed with patient Attending Physician: Dr. Joanne Cherry DO Staff Toxicologist Resident 05/27/2022, 12:19 AM Date: 05/27/2022 Time: [...] Will continue to monitor Abdi Gómez MD Staff Toxicologist Resident 05/26/2022, 2:52 PM Resident Interval Magnesium [...] Next magnote @ 1430 Abdi Gómez MD Staff Toxicologist Resident 05/26/2022, 10:26 AM POST OPERATIVE DAY [...] - Patient received 6g mag bolus in [place] >2g/hr > 1g/hr - Seizure like activity [...] S/p TXA x1 and Cytotec 1000 mg MT Asthma - Albuterol inhaler PRN Depression/ADHD - [...] patient Attending Physician: Dr. Celestine Crawley DO Staff Toxicologist Resident 05/26/2022, 4:14 AM Resident Interval Magnesium [...] per EMS - Next mag note @ 5440 - Plan to d/c abrams at this time Savana Crawley DO Staff Toxicologist Resident 05/26/2022, 4:10 AM Resident Interval Magnesium [...] Will continue to monitor Savana Crawley DO Staff Toxicologist Resident 05/26/2022, 12:30 AM Resident Interval Magnesium [...] Will continue to monitor Savana Crawley DO Staff Toxicologist Resident 05/25/2022, 7:25 PM [place]IR[facility] C[facility] [place] - [facility] Shift date: 05/25/2022 Shift day: Tuesday Shift # 1 Room # 0703/0703-01 Name: Qian Clements Episcopal: Place of mosque: Referral: Steffi Alert Admit Date & Time: 05/25/2022 2:31 PM Assessment: Qian Clements is a 31 y.o. female, 32 weeks , who was brought from a hospital in [place]. Per EMS, patient had very high BP and had a seizure on the way here. The OB explained that they would have to deliver the baby. Upon entering the room senior technical writer observes patient was tearful. She said she had no needs from utility worker production at that time. Mother and family members arrived shortly and appeared concerned. Roving Hand was unable to assess them after walking them to the pt's room. Intervention: Stamper Blocker introduced self and title as utility worker production. Roving Hand provided a supportive presence and words of comfort. Outcome: Pt appeared comforted by utility worker production's presence. Plan: Chaplains will remain available to offer spiritual and emotional support as needed. . Spiritual Care Department [facility] [phone] 05/25/22 1504 Encounter Summary Service Provided For: Patient;Family Referral/Consult From: Multi-disciplinary team Support System Parent;Family members Last Encounter 05/25/22 Complexity of Encounter Moderate Begin Time 1430 End Time 1450 Total Time Calculated 20 min Crisis Type ([place] Alert) Assessment/Intervention/Outcome Assessment Coping;Tearful Intervention Active listening;Explored/Affirmed feelings, thoughts, concerns Outcome Expressed feelings, needs, and concerns documented in this encounter [facility] Work Phone: 05-25-2022 Hospital Discharge instructions Erin Padron, - 05/25/2022 4:28 PM EDT Images [...] your doctor if you can take an csls-dbe-qgjmclc medicine. If you think your pain medicine [...] your breast. This is sometimes called the [employer] hold. Follow-up care is a fraire part [...] Where can you learn more? Go to [email or web address] and sign in to your [employer] account. Enter M806 in the Search Health Information box to learn more about Section: What to Expect at Home. If you do not have an account, please click on the Sign Up Now link. Current as of: October 14, 2021 Content Version: 13.4 [facility]. Care instructions adapted under license by [employer]. If you have questions about a medical condition or this instruction, always ask your healthcare professional. [facility] disclaims any warranty or liability for your [...] Call the Suicide and Crisis Lifeline at 538. Call 9-353-121-TALK (). Text HOME to 311158 to access the Crisis Text Line. Consider [...] When should you call for help? Call 911 if: You feel you cannot stop from [...] Where can you learn more? Go to [email or web address] and sign in to your [employer] account. Enter Y765 in the Search Health Information box to learn more about Depression After Childbirth: Care Instructions. If you do not have an account, please click on the Sign Up Now link. Current as of: September 30, 2021 Content Version: 13.4 [facility]. Care instructions adapted under license by [employer]. If you have questions about a medical condition or this instruction, always ask your healthcare professional. [facility] disclaims any warranty or liability for your [...] most return to normal levels over the electrical high tension tester. Take and record your blood pressure at [...] you have had preeclampsia, you have a gblyus-tvng-cicrbql risk of heart disease, stroke, and kidney [...] Where can you learn more? Go to [email or web address] and sign in to your [employer] account. Enter Q718 in the Search Health Information box to learn more about Learning About Preeclampsia After Childbirth. If you do not have an account, please click on the Sign Up Now link. Current as of: October 14, 2021 Content Version: 13.4 [facility]. Care instructions adapted under license by [employer]. If you have questions about a medical condition or this instruction, always ask your healthcare professional. [facility] disclaims any warranty or liability for your use of this information. documented in this encounter [facility] Work Phone: 05-25-2022 Evaluation note Diagnosis PLTCS 05/25/22 F Apg Wt 4#15; PLTCS 05/25/22 F Apg 8/9 Wt 4#15- Primary delivery, without mention of indication, delivered, with or without mention of antepartum condition Eclampsia (G6) Other convulsions state Routine follow-up Postoperative state Other postprocedural status documented in this encounter [employer] Phone: [phone]) 788-909410-04-2022 Evaluation note* Diagnosis PLTCS 05/25/22 F Apg 8/9 Wt 4#15- Primary delivery, without mention of indication, delivered, with or without mention of antepartum condition PLTCS 05/25/22 F Apg Wt 4#15 delivery, without mention of indication, delivered, with or without mention of antepartum condition Eclampsia (G6) Other convulsions state Routine follow-up Postoperative state Other postprocedural status Viral URI with cough- Primary Acute upper respiratory infections of unspecified site documented in this encounter [facility] [employer]01-29-2020 Hospital Discharge instructions* Instructions * Pilar Garcia MD - 09/19/2019 Go immediately from here to the [facility] OB department to be evaluated by the OB nurse. Donot stop anywhere on the way. Do not eat or drink before getting there. * Attachments The following attachments cannot be sent through Care Everywhere. * : Abdominal Pain ([place]) documented in [facility] Hospital[facility] Phone: evaluation + Plan note No data available for this section [facility] Evaluation note* Diagnosis Sinus congestion Other diseases of nasal cavity and sinuses Cough Fever, unspecified fever cause documented in this encounter [employer] Phone: [email or web address] note* Diagnosis Lower abdominal pain- Primary Abdominal pain, other specified site Complication of in second trimester documented in this encounter [employer] Phone: evalpgqptv note* Diagnosis Acute pharyngitis, unspecified etiology- Primary documented in this encounter [employer] Phone: evalhnfihc note* Diagnosis Left flank pain- Primary Abdominal pain, unspecified site documented in this encounter [facility] [employer] HEALTHEvaluation note* Diagnosis Missed menses Early stage of state, incidental documented in this encounter [facility] HealthcareEvaluation note* Diagnosis Missed menses , unspecified gestational age Encounter for supervision of normal first in first trimester documented [facility]* Attachments The following attachments cannot be sent through Care Everywhere. * Sore Throat ([place]) [facility] Work Phone: Hospital Discharge instructions* Attachments The following attachments cannot be sent through Care Everywhere. * URI (Upper Respiratory Infection): Viral ([place]) documented in this [facility] CenterInstructionsNot on file documented in this encounterProOhio State [facility] Hospital SystemInstructionsNot on file documented in this encounterProOhio State [facility] SystemProgress note No data available for this section 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 * Sore Throat ([place]) * : Morning Sickness ([place]) * Back: Strain ([place]) documented in this encounter Summary Purpose Family History No Family History Records FoundNo Family History Records FoundNo Family History Records FoundNo Family History Records FoundNo Family History Records FoundNo Family History Records Found No data available for this section No Family History Records FoundNo Family History Records FoundNo Family History Records FoundNo Family History Records Found Reason for Referral Specialty Diagnoses / Procedures Referred By Contac t Referred To Contact Radiology Diagnoses Left flank pain Procedures US RETROPERITONEAL COMPLETE Jeronimo Do, DO [address] [place] [address] Referral ID Status Reason Start Date Expiration Date Visits Re quested Visits Authorized [id number] Open 03/08/2023 03/07/2024 1 1 Additional Source [...] To Contact Diagnoses Eclampsia Tammy Cherry MD [address] [place] [id number] [facility] [address] [place] [address] Referral ID Status Reason Start Date Expiration Date Visits Re quested Visits Authorized [id number] 1 1 Reason Comments Pharyngitis C/o sore throat for 4 days. Reason Comments Flank Pain left flank pain, pt has been taking Macrobid for five days with no improvement Reason Onset Date Comments Hospital Follow-up 09/07/2023 Reason Comments Fatigue Fatigue, headache, c ough, fever x3 days Reason Comments Discuss options Pt is currently preg nant w/LMP of 04/11/2024. Reason Comments Amenorrhea Ordered Prescriptions (unrec ognized section and content) [...] Kaba RN)1416 (Given - Provider: Lory Kaba RN)2140 (Given - Provider: Mónica Kong RN - Comment: patient off unit) 024 (Given - Provider: Mónica Kong RN)0836 (Given - Provider: Maritza Martinez RN)2124 (Given - Provider: Evelia Yu RN - Comment: Pt was in NICU)2129 (Not Given - Provider: Evelia Yu RN - Reason: Contraindicated - Comment: Given at 2124) 025 (Given - Provider: Evelia Yu RN)0853 (Given - Provider: Robyn Interiano RN)1529 (Due - Provider: Ross Ashley [facility])2129 (Due - Provider: Ross Ashley [facility]) cephALEXin (KEFLEX) capsule 500 mg (COMPLETED) 500 [...] Until Discontinued, Do not crush or break. 08 (Given - Provider: Lory Kaba RN)2140 (Given - Provider: Mónica Kong RN) 0836 (Given - Provider: Maritza aMrtinez, CATHI)2124 (Given - Provider: Evelia Yu RN) 0853 (Given - Provider: Robyn Interiano, CATHI)2099 (Due) enoxaparin (LOVENOX) injection 40 mg 40 mg, SubCUTAneous, DAILY, First dose on Tue05/26/22 at 0900, Until Discontinued, Indication of Use: Prophylaxis-DVT/PE 825 (Given - Provider: Lory Kaba RN) 08 (Given - Provider: Maritza Martinez RN) 0853 (Given - Provider: Robyn Interiano, CATHI) ferrous sulfate (FE TABS 325) EC tablet 325 mg 325 mg, Oral, DAILY WITH BREAKFAST, First dose on Tue05/26/22 at 1100, Until Discontinued 825 (Given - Provider: Lory Kaba RN) 0836 [...] Yu RN)1030 (Due - Provider: Ross Ashley [facility])1830 (Due - Provider: Ross Ashley [facility]) metroNIDAZOLE (FLAGYL) tablet 500 mg (COMPLETED) 500 [...] Martinez RN) 0852 (Given - Provider: Robyn Interiano, CATHI) vitamin plus iron 29-1 MG tablet 1 [...] patch to hairless area behind the ear. 165 (Due: Patch Removed - Provider: Soham Moreno, CATHI)1700 (Due) sodium chloride flush 0.9 % injection [...] Loss of IV access) 0900 (Due)2100 (Due) Axtxsvn-Hznozi-Nqiom Pertussis (BOOSTRIX) injection 0.5 mL 0.5 mL, [...] Itching 2127 (Given - Provider: Evelia Yu, CATHI) doxyLAMINE succinate (GNP SLEEP AID) tablet 25 [...] Kaba RN)2259 (See Alternative - Provider: Mónica J McCamey, RN) 0246 (See Alternative - Provider: Mónica Kong, [...] Care Teams (unrecognized sec tion and content) Asbestos Shingle Inspector Relationship Specialty Start Date End Date Racquel Simpson MD [address] [place] [address] PCP - General 04/22/16 Asbestos Shingle Inspector Relationship Specialty Start Date End Date Racquel Simpson MD [address] [place] [id number] PCP - General 04/22/16 Asbestos Shingle Inspector Relationship Specialty Start Date End Date Racquel Simpson MD [address] [place] [id number] PCP - General 04/22/16 Asbestos Shingle Inspector Relationship Specialty Start Date End Date Racquel Simpson MD [address] [place] [id number] PCP - General 04/22/16 Asbestos Shingle Inspector Relationship Specialty Start Date End Date Racquel Simpson MD [address] [place] [id number] PCP - General Family Medicine 08/17/23 Asbestos Shingle Inspector Relationship Specialty Start Date End Date Racquel Simpson MD [address] [place] [id number] PCP - General Family Medicine 08/17/23 Asbestos Shingle Inspector Relationship Specialty Start Date End Date Racquel Simpson MD [address] [place] [id number] PCP - General Family Medicine 08/17/23 Asbestos Shingle Inspector Relationship Specialty Start Date End Date Racquel Simpson MD [address] [place] [phone] PCP - General Family Medicine 08/17/23 Asbestos Shingle Inspector Relationship Specialty Start Date End Date Racquel Simpson MD [address] [place] [address] PCP - General Family Medicine 08/17/23 INFORMATION SOURCE (unrecogn ized section and content) DATE CREATED AUTHOR 06/02/2022 [facility] DATE CREATED AUTHOR AUTHOR'S ORGANIZ ATION 01/04/2023 [facility] DATE CREATED AUTHOR AUTHOR'S ORGANIZ ATION 09/18/2023 [facility] DATE CREATED AUTHOR AUTHOR'S ORGANIZ ATION 03/12/2024 [facility] DATE CREATED AUTHOR AUTHOR'S ORGANIZ ATION 06/04/2024 [facility] DATE CREATED AUTHOR AUTHOR'S ORGANIZ ATION 06/15/2024 [facility] DATE CREATED AUTHOR AUTHOR'S ORGANIZ ATION 08/31/2024 [facility] DATE CREATED AUTHOR AUTHOR'S ORGANIZ ATION 09/26/2024 [facility] FOR RECORDS PERTAINING TO PATIENTS WHO ARE [...] BE BASED ON THE PRIMARY CLINICAL RECORDS. Medical Referral Source [facility]. provides no warranty or guarantee of the accuracy or completeness of information in this document.
[2024-09-27 09:14] LABS: Bilirubin Urine NEGATIVE (NEGATIVE); Blood Urine NEGATIVE (NEGATIVE); Clarity Urine CLEAR (CLEAR); Color Urine LT. YELLOW (YELLOW); Glucose Urine UA NEGATIVE (NEGATIVE); Ketones Urine NEGATIVE (NEGATIVE); Leukocyte Esterase Urine TRACE (NEGATIVE); Nitrite Urine NEGATIVE (NEGATIVE); Protein Urine TRACE mg/dL (NEG/TRACE); Urobilinogen Urine 0.2 EU/dL (0.2-1.0)
[2024-09-27 09:15] LABS: Urine Microscopic Indicated YES
[2024-09-27 09:22] LABS: Bacteria Urine SMALL #/HPF (NONE SEEN); Crystals Seen? Seen #/HPF (None Seen); Mucus Urine NONE SEEN (NONE SEEN); RBC Urine 0-2 #/HPF (0-2); Squamous Epithelial Cell Urine MODERATE #/LPF (NONE/RARE)
[2024-09-27 09:23] LABS: Amorphous Sediment Urine RARE; Cast Seen? NONE SEEN #/LPF (NONE SEEN); Urine Culture Indicated YES
--- NOTE | 2024-09-27 09:50 | PC.NURSE ---
Patient arrives ambulatory with friend with c/o increased cramping and episode of diarrhea at 0400. Has had one visit. States has had cough for over a month and just started second round of Augmentin, prednisone, and zithromycin 4 days ago. Abdomen round and palpates soft, c/o cramping in suprapubic area under pannus.
[2024-09-27 10:00] VITALS: TEMP 36.4
--- NOTE | 2024-09-27 10:41 | PC.NURSE ---
1030: Large emesis of undigested food and liquids. Awaiting return call from Dr Stevenson.
[2024-09-27] MEDS: 0.9 % SODIUM CHLORIDE 1,000 ML 999 ML IV (11:15)
[2024-09-27 11:34] LABS: Basophils Percent Auto 0.4 % (0.2-2.0); Eosinophils Absolute Auto 0.1 10^3/uL (0.0-0.7); Eosinophils Percent Auto 0.8 % (0.9-7.0); Hematocrit 30.8 % (36.0-48.0); Hemoglobin 9.8 g/dL (12.0-16.0); Immature Granulocytes Abs Auto 0.05 10^3/uL (0.00-0.03); Immature Granulocytes Pct Auto 0.5 % (0.0-0.5); Lymphocytes Absolute Auto 2.1 10^3/uL (1.2-3.8); Lymphocytes Percent Auto 19.9 % (20.5-60.0); Mean Corpuscular HGB Conc 31.8 g/dL (29.9-35.2); Mean Corpuscular Volume 78.6 fL (81.0-99.0); Monocytes Absolute Auto 0.7 10^3/uL (0.3-0.8); Neutrophils Absolute Auto 7.6 10^3/uL (1.4-6.5); Neutrophils Percent Auto 71.4 % (43.0-75.0); Platelet Count 398 10^3/uL (150-450); Red Blood Count 3.92 10^6/uL (4.20-5.40); Red Cell Distribution Width 14.5 % (11.0-15.0); White Blood Count 10.6 10^3/uL (4.0-11.0)
[2024-09-27 11:45] LABS: Influenza Virus A Antigen Negative; Influenza Virus B Antigen Negative; Internal Control Within Normal Limits
[2024-09-27] MEDS: ONDANSETRON PF 4 MG/2 ML VIAL IV (11:45)
[2024-09-27 11:50] LABS: Alanine Aminotransferase 12 U/L (14-59); Albumin Globulin Ratio 0.6; Albumin Level 2.4 g/dL (3.4-5.0); Alkaline Phosphatase 99 U/L (46-116); Amylase 51 U/L (25-115); Anion Gap 13.3; Aspartate Amino Transferase 10 U/L (15-37); BUN Creatinine Ratio 14.9; Bilirubin Total 0.1 mg/dL (0.2-1.0); Calcium 8.5 mg/dL (8.5-10.1); Carbon Dioxide 24.9 mmol/L (21.0-32.0); Chloride 104 mmol/L (98-107); Estimated GFR (African America >60 (>=60 mL/min/1.73m^2); Estimated GFR (Non-African Ame >60 (>=60 mL/min/1.73m^2); Globulin 4.1 g/dL; Glucose 86 mg/dL (74-106); Potassium 4.2 mmol/L (3.5-5.1); Sodium 138 mmol/L (136-145); Total Protein 6.5 g/dL (6.4-8.2)
--- NOTE | 2024-09-27 13:09 | PC.NURSE ---
1250: Discharge instructions reviewed and patient discharged ambulatory.
--- NOTE | 2024-09-27 13:12 | PC.NURSE ---
1110: Labs drawn from IV start and lab swabs for A & B. 1230: Patient eating [employer] cheeseburger and fries and pop. States would like to go home. Dr. Ricks notified of lab results and patient request. Order received
== END 2024-09-27 12:50 | disposition home or self-care (01) ==
PROVIDERS: Admitting Provider Obstetrics & Gynecology; PCP Family Medicine; Visit Provider Obstetrics & Gynecology
DX: O99.891 Other specified diseases and conditions complicating pregnancy (principal); R10.9 Unspecified abdominal pain; Z3A.24 24 weeks gestation of pregnancy
CPT/HCPCS: 36415; 59025; 80053; 81001; 82150; 82565; 83690; 85025; 87086; 87804; 96374; G0378; G0379; J2405

== ENCOUNTER 2024-10-03 19:21 | Outpatient (REF) | payer OTHER, SELFPAY ==
--- OUTSIDE RECORDS SUMMARY | 2024-10-03 19:26 | XMS_ITS | CCD ---
Author Organization [facility] Care Team Providers Care Enrollment Services Vice President Name Role Phone Racquel Simpson Primary Care Provider RACQUEL SIMPSON Primary Care Unavailable TAMMY CHERRY Admitting Unavailable TAMMY CHERRY Attending Unavailable Racquel Simpson MD Primary Care Provider [phone] RAMBO ., DR ODONNELL Primary Care Unavailable KARASIK ., DR KRAMER Consulting Unavailabl e RAMBO ., DR ODONNELL Attending Unavailable RAMBO ., DR ODONNELL Admitting Unavailable DELCO, DR AARON Owusu Consulting Unavailable RAMBO ., [...] Unavailable RAMBO ., DR ODONNELL Consulting Unavailable RAMOB ., DR ODONNELL Attending Unavailable RAMBO ., DR ODONNELL Admitting Unavailable RAMBO ., DR ODONNELL Primary Care Unavailable ZIEBER, DR PILAR Glass Consulting Unavailable REQUEST, DR CINDY LISTED Consulting Unavaila Racquel Brito MD Primary Care Provider [phone] Unavailable Primary Care Provider UnavailESPERANZA Rodrigues Admitting Unavailable ESPERANZA MOLINA Attending Unavailable ALFRED RICKS Referring Unavailable MORE HAYDEN Consulting Unavailable (TTH ONLY), NEURO-CONSULTING Consulting Dayanara vailable SAPNA INGRAM Consulting Unavailable EDWINA CROCKETT Attending Unavailable MIKALA MORTON MD Referring Unavailab le SAKIBUZZAMANMIKALA MD Referring Unavailab le SAKIBUZZOLGA, MIKALA ELLER Referring Unavailab le ALADAMAT, NAMEER Referring Unavailable [...] Unavailable Racquel Simpson MD Primary Care Provider [phone] Racquel Simpson Primary Care Physician Peace Colón Unavailable Unavailable Tarun Richards Attending Unavailable Tarun Richards Attending Unavailable RACQUEL SIMPSON Primary Care UnaBEATRIZ Garvey Attending Unavailable ALFRED RICKS Attending Unavailable ALFRED RICKS Attending Unavailable Allergies Allergy Classification Reported Allergen(s) Allergy Type Date of Onset Reaction(s) Facility (20 sources) Ciprofloxacin; Translations: [CIPROFLOXACIN] Drug Allergy 2 Nausea And Vomiting, Unknown, GI intolerance [place], [place] (20 sources) Codeine; Translations: [CODEINE] Drug Allergy 2 Seizure, Seizures, Unknown, GI intolerance [place], [place] (9 sources) Promethazine Drug Allergy 2 Nausea And Vomiting [place], [place] (2 sources) Ciprofloxacin; Translations: [Cipro] Drug Allergy 5 [facility] (1 source) Codeine Drug Allergy 5 [facility] (2 sources) Levamisole; Translations: [Phenergan] Drug Allergy 5 [facility] (14 sources) Promethazine; Translations: [PROMETHAZINE] Drug Allergy 2 Nausea And Vomiting, Unknown, GI intolerance [facility] (4 sources) Octacosanol Drug Allergy 4 [facility] Medications Current Medications Medication Drug Class(es) Dates Sig (Normalized) Sig (Original) [id number] 200 actuat albuterol 0.09 mg/actuat metered dose [...] puff(s), Inhalation, q6hr, 6.7 gm, Refill(s) 0, [facility], 160.2, cm, 08/23/24 15:40:00 EST, Height/Length [...] day(s), # 14 tab(s), Refills(s) 0, Pharmacy: [facility], 160.2, cm, 08/23/24 15:40:00 EST, Height/Length [...] break. docusate sodium 50 mg / sennosides, fpc 8.6 mg oral tablet (2 sources) Start: [...] Active labetalol hydrochloride 200 mg oral tablet (9 sources) beta-Adrenergic Tru Start: 09-07-2023 take 2 [...] 5 mg metoclopramide 10 mg oral tablet (12 sources) Dopamine-2 Receptor Antagonist Start: 08-17-2023 metoclopramide [...] omeprazole 20 mg delayed release oral capsule (8 sources) Proton Pump Inhibitor Start: 08-17-2023 End: [...] day(s), # 12 tab(s), Refills(s) 0, Pharmacy: [facility], 160.2, cm, 08/23/24 15:40:00 EST, Height/Length [...] M G/ML injection HYDROmorphone (DILAUDID) 1 mg/mL MEDICAL PHYSICS RESEARCHER (1 source) Start: 05-25-2022 End: 05-26-2022 HYDROmorphone (DILAUDID) 1 mg/mL MEDICAL PHYSICS RESEARCHER 1 ml ketorolac tromethamine 30 mg/ml cartridge [...] premix Start: 05-25-2022 End: 05-26-2022 magnesium sulfate (07950 mg/ 500mL infusion) Start: 05-25-2022 End: 05-25-2022 [...] Until Discontinued, Opioid Reversal polyethylene glycol 3350 86141 mg powder for oral solution (1 source) [...] severe preeclampsia, eclamptic seizure Onset: 08-31-2023 Unclassified (8 sources) OB Reminders Onset: 04-22-2023 04-22-2023 Past [...] sources) Taking high risk medication; Translations: [Other residential (current) drug therapy] Onset: 04-01-2015 04-01-2015 Episodic [...] Test Name Value Interpretation Reference Range Facility [facility] UA (CLEAN/CATCH) GROUP INSURANCE SPECIAL AGENT/CODY RO IF IND.on 09-27-2024 BILIRUBIN URINE Negative NEGATIVE [facility] BLOOD URINE Negative NEGATIVE [facility] Clarity (U) CLEAR CLEAR [facility] Color (U) LT. YELLOW YELLOW [facility] GLUCOSE URINE UA Negative NEGATIVE mg/dL [facility] Interpretation and review of laboratory results Abnormal [facility] Ketones Ql (U) Negative NEGATIVE mg/dL [facility] Leukocyte esterase Test strip Ql (U) TRACE Abnormal NEGATIVE [facility] NITRITE URINE Negative NEGATIVE [facility] pH (U) 7.0 [pH] 5.0 - 9.0 [facility] PROTEIN URINE TRACE NEG/TRACE mg/dL [facility] SPECIFIC GRAVITY URINE 1.020 1.005 - 1.025 [facility] URINE MICROSCOPIC INDICATED YES [facility] UROBILINOGEN URINE 0.2 EU/dL 0.2 - 1.0 EU/dL [facility] ED Prov Noteon 09-24-2024 ED Prov Note [facility] ATTENDING NOTE: NAME: Qian Clements CSN: [id number] 34 y.o. PCP: Racquel Simpson MD History: [...] and shortness of breath. She went to [place] emergency department and was given a dose [...] per my interpretation demonstrates ventricular at 104 HI 140 QRS 76 QT 322 QTc 423, [...] She is advised to follow-up with her PMD/LINSEED OIL TEMPERER. She is given strict return instructions, especially [...] In this (more content not included)... Normal [facility] XR CHEST PA/APon 09-24-2024 XR CHEST [...] TueSep 24, 2024 9:18:15 PM EST Normal [facility] Comment on above: Order Comment: Shiel d abdomen Injury/Trauma or Illness?:Illness/Other How long have you had these symptoms (acute/chronic)?:Acute Reason for exam?:cough x 1 month History of cancer?:n Surgeries, chemotherapy, or radiation?:n Type of Exam?:Initial Additional signs and symptoms?:pt states she as on an antibiotic but it didnt help ED Note-Physicianon 08-28-19 ED Note-Physician ED Note-Physician Basic Information Time Seen: Marcio PRICE, Zaheer Daniels. 08/23/2024 17:03 Chief Complaint pt presents with [...] with close follow-up with her PCP and LINSEED OIL TEMPERER to ensure she is getting better. Return to ED precautions were reviewed with the patient at length. Assessment/Plan Asthma exacerbation (J45.901: Unspecified asthma with (acute) exacerbation) Cough (R05.9: Cough, unspecified) Fever (R50.9: Fever, unspecified) Pneumonia (J18.9: Pneumonia, unspecified organism) (Z34.90: Encounter for supervision of normal , unspecified, unspecified trimester) Orders: albuterol, 2 puff(s), Inhalation, q6hr, 6.7 gm, Refill(s) 0, [facility], 160.2, cm, 08/23/24 15:40:00 EST, Height/Length Dosing, 113, kg, 08/23/24 15:40:00 EST, Weight Dosing albuterol-ipratropium, 3 mL, Soln-Inh, Inhalation, Once, Stop date 08/23/24 17:23:00 EST, STAT, Start date 08/23/24 17:23:00 EST amoxicillin-clavulanat e, = 1 tab(s), Oral, q12hr, X 7 day(s), # 14 tab(s), Refills(s) 0, Pharmacy: [facility], 160.2, cm, 08/23/24 15:40:00 EST, Height/Length Dosing, 113, kg, 08/23/24 15:40:00 EST, Weight Dosing amoxicillin-clavulanat e, 1 tab(s), Tab, Oral, Once, Stop date 08/23/24 18:00:00 EST, STAT, Start date 08/23/24 18:00:00 EST predniSONE, 40 mg = 2 tab(s), Tab, Oral, Once, (more content not included)... Normal [facility] Comment on above: Result Comment: Elec tronically Signed By: Marcio PRICE, Zaheer Martini\.br\Date and Time Signed: 08/23/24 20:32 EST\.br\Electronically Co-Signed By: Tarun Richards MD\.br\Date and Time Co-Signed: 08/28/24 23:11 EST ED Clinical Summaryon 2024 ED Clinical Summary ED Clinical Summary [place] [id number] ED Clinical Summary Person Information Name: QIAN CLEMENTS Anand/[facility] Age: 34 Years : 1990 Sex: Female Language: Bermudian PCP: Racquel Simpson MD Marital Status: Single [...] 08/23/2024 18:11:50 08/23/2024 18:11:50 08/23/2024 18:11:50 AD[facility] [id number] [facility] DOC NOTES: MEDICAL INFORMATION: Prescriptions Given: New Medications [facility], [address], [place] [id number], [phone] amoxicillin-clavulanat e (Augmentin 875 mg oral tablet) 1 Tablets By Mouth every 12 hours for 7 Days. Refills: 0. predniSONE (predniSONE 20 mg Tab) 2 Tablets By Mouth every day for 6 Days. Refills: 0. Medications to Continue Taking That Have Changed [facility], [address], [place] [id number], [phone] START: albuterol (Albuterol (Eqv-ProAir HFA) 90 mcg/inh [...] Follow up: With: Address: When: Racquel Simpson [address] [place] [address], [address] [place] [phone] Business (1) In 3 days 08/26/2024 DIAGNOSIS: Asthma exacerbation; Cough; Fever; Pneumonia; Normal [facility] ED Patient Summaryon 025 ED Patient Summary ED Patient Summary [place] [id number] Patient Discharge Instructions Person Information Name: QIAN CLEMENTS Age: 34 Years Arrival Date: 08/23/2024 15:28:47 Discharge Diagnosis: Asthma exacerbation; Cough; Fever; Pneumonia; Primary Care Physician: Racquel Simpson MD Provider Information Primary Provider: Advanced [employer] Components Assembler:Marcio PRICE, Zaheer Daniels. The exam and treatment you received in the Emergency Department were for an urgent problem and are not intended as complete care. It is important that you follow up with a doctor, nurse practitioner, or physician???s assistant women's basketball coach for ongoing care. If your symptoms become [...] Instructions: With: Address: When: Racquel Simpson [address] [facility] [address] [facility] [place], [place] [phone] Business (1) In 3 days 08/26/2024 In the event that this physician does not participate in your insurance network, please consult with your insurance company to find a nearby participating provider. Patient Education Materials: Community-Acquired Pneumonia, Adult; Asthma, Adult A MESSAGE TO ALL PATIENTS REGARDING OPIOIDS PRESCRIPTION OPIOIDS: WHAT YOU NEED TO KNOW Prescription opioids can be used to help relieve glozmerv-gn-jqdzcn pain and are often prescribed following a [...] struggling w (more content not included)... Normal [facility] Influenza A&B Agon 5 Influenzae A Ag Negative Normal Negative [facility] Comment on above: Performed By: #### 1 [id number] #### [facility] [address] [place] [address] Influenzae B Ag Negative Normal Negative [facility] Comment on above: Result Comment: Test sensitivity and specificity vary for age group, specimen type, antigen types, and prevalence of disease. Test results must be evaluated in conjunction with other clinical data available to the physician. Individuals who received nasally administered Influenza A vaccine may have positive test results up to 3 days after vaccination. Performed By: #### 1 [id number] #### [facility] [address] [place] [address] MICRO OTHER TESTSOrdered By: Amber Shaver on 08-23-2024 Influenzae A Ag Negative (08/23/24 4:03 PM) Normal Negative [facility] Influenzae B Ag Negative 1 (08/23/24 4:03 PM) Normal Negative [facility] Comment on above: Interpretive Data: [...] NEG Ctl Pass (08/23/24 4:03 PM) Normal [facility] Rapid COV Int POS Ctl Pass (08/23/24 4:03 PM) Normal [facility] SARS-CoV+SARS-CoV-2 (COVID-19) Ag IA.rapid Ql (Resp) Not Detected 2 (08/23/24 4:03 PM) Normal Not Detected [facility] Comment on above: Interpretive Data: T he ACTV[employer] Veritor System for Rapid Detection of SARS-CoV-2 [...] terminated or revoked sooner. Rapid COVID Antigen ([facility])on 08-23-2024 Rapid COV Int NEG Ctl Pass Normal [facility] Comment on above: Performed By: #### 2 [id number] #### [facility] [address] [place] [address] Rapid COV Int POS Ctl Pass Normal [facility] Comment on above: Performed By: #### 2 [id number] #### [facility] [address] [place] [address] SARS-CoV+SARS-CoV-2 (COVID-19) Ag IA.rapid Ql (Resp) Not detected Normal Not Detected [facility] Comment on above: Result Comment: The [employer]??? System for Rapid Detection of SARS-CoV-2 is [...] or revoked sooner. Performed By: #### 2 [id number] #### [facility] [address] [place] [address] ALL CBC WITH AUTO DIFFon BASOPHILS ABSOLUTE AUTO 0 [facility] Basophils/100 WBC (Bld) 0.4 % 0.2 - 2.0 % [facility] Eosinophils/100 WBC (Bld) 0.6 % Low 0.9 - 7.0 % [facility] Erythrocyte distribution width (RBC) [Ratio] 16.6 % High 11.0 - 15.0 % [facility] Hematocrit (Bld) [Volume fraction] 34.1 % Low 36.0 - 48.0 % [facility] Hemoglobin (Bld) [Mass/Vol] 10.9 g/dL Low 12.0 - 16.0 g/dL [facility] IMMATURE GRANULOCYTES ABS AUTO 0.03 [facility] Immature granulocytes/100 WBC (Bld) 0.3 % 0.0 - 0.5 % [facility] Interpretation and review of laboratory results Abnormal [facility] LYMPHOCYTES ABSOLUTE AUTO 2.1 [facility] Lymphocytes/100 WBC (Bld) 21.6 % 20.5 - 60.0 % [facility] MCH (RBC) [Entitic mass] 24.6 pg Low 26.7 - 34.0 pg [facility] MCHC (RBC) [Mass/Vol] 32 g/dL 29.9 - 35.2 g/dL [facility] MCV (RBC) [Entitic vol] 77 fL Low 81.0 - 99.0 fL [facility] MONOCYTES ABSOLUTE AUTO 0.5 [facility] Monocytes/100 WBC (Bld) 5.6 % 1.7 - 12.0 % [facility] NEUTROPHILS ABSOLUTE AUTO 6.9 High [facility] Neutrophils/100 WBC (Bld) 71.5 % 43.0 - 75.0 % [facility] Platelet mean volume (Bld) [Entitic vol] 9.3 fL Low 9.5 - 13.5 fL [facility] EO # 0.1 [facility] PLT 393 [facility] RBC 4.43 [facility] WBC 9.6 [facility] HCG ( test) Ql (U)o n 07-27-2024 Interpretation and review of laboratory results Abnormal [facility] Preg Test, Ur Positive Negative [facility] Urinalysis macro (dipstick) panel (U)on 07-27-2024 Bilirubin, UA Negative Negative - 4(70) +++ mg/dL [facility] Blood, UA Negative Negative - 50 Gigi/mcL [facility] Clarity, UA Clear [facility] Color, UA Yellow [facility] Glucose, UA Negative Negative - 1999(110) ++++ mg/dL [facility] Interpretation and review of laboratory results Normal [facility] Ketones, UA Negative Negative - 160(16) ++++ mg/dL [facility] Leukocytes, UA Negative Negative - 500+++ Gely/mcL [facility] Nitrite, UA Negative Negative - Positive [facility] pH, UA 5 5 - 9 [facility] Protein, UA Negative Negative - 2000(20) ++++ mg/dL [facility] Spec Grav, UA 1.03 1 - 1.03 [facility] Urobilinogen, UA 1.0 0.2 - 12 mg/dL [facility] PREG QUANT HCGon 024 HCG QUANTITATIVE 84292 mIU/mL [facility] Comment on above: 5-50 0.2-1 WEEK 50-500 1-2 WEEKS 100-5,000 2-3 WEEKS 500-10,000 3-4 WEEKS 1,000-50,000 4-5 WEEKS 10,000-100,000 5-6 WEEKS 15,000-200,000 6-8 WEEKS 10,000-100,000 2-3 MONTHS [facility] CBC W Auto Differential pane l (Bld)on 03-08-2024 Basophils (Bld) [#/Vol] 0.04 10*3/uL Normal <0.11 [facility] Comment on above: Order Comment: Speci men Type: BLOOD SPECIMEN Ordering Facility: [facility] Address: [address] [place] [address] Performed By: #### 1 9123-9, 49872-5 #### [facility] CLIA [id number] [address] [place] [address] [place] Basophils/100 WBC (Bld) 0.4 % Normal [facility] Comment on above: Order Comment: Speci men Type: BLOOD SPECIMEN Ordering Facility: [facility] Address: [address] [place] [address] Performed By: #### 1 9123-9, 30213-0 #### [facility] CLIA [id number] [address] [place] [address] [place] Differential cell count method Nom (Bld) Auto Normal [facility] Comment on above: Order Comment: Speci men Type: BLOOD SPECIMEN Ordering Facility: [facility] Address: [address] [place] [address] Performed By: #### 1 9123-9, 72642-6 #### [facility] CLIA [id number] [address] [place] [address] [place] Eosinophils (Bld) [#/Vol] 0.32 10*3/uL Normal <0.46 [facility] Comment on above: Order Comment: Speci men Type: BLOOD SPECIMEN Ordering Facility: [facility] Address: [address] [place] [address] Performed By: #### 1 9123-9, 81254-6 #### [facility] CLIA [id number] [address] [place] [id number] [place] Eosinophils/100 WBC (Bld) 3.1 % Normal [facility] Comment on above: Order Comment: Speci men Type: BLOOD SPECIMEN Ordering Facility: [facility] Address: [address] [place], [place] [address] Performed By: #### 1 9123-9, 47370-8 #### [facility] CLIA [id number] [facility] [place] [address] [place] Erythrocyte distribution width (RBC) [Ratio] 15.4 % High 11.5-15.0 [facility] Comment on above: Order Comment: Speci men Type: BLOOD SPECIMEN Ordering Facility: [facility] Address: [address] [place], [place] [address] Performed By: #### 1 9123-9, 69029-0 #### [facility] CLIA [id number] [address] [place] [address] [place] Hematocrit (Bld) [Volume fraction] 31.6 % Low 36.0-46.0 [facility] Comment on above: Order Comment: Speci men Type: BLOOD SPECIMEN Ordering Facility: [facility] Address: [address] [place] [address] Performed By: #### 1 9123-9, 31568-9 #### [facility] CLIA [id number] [address] [place] [address] [place] Hemoglobin (Bld) [Mass/Vol] 9.7 g/dL Low 11.5-15.5 [facility] Comment on above: Order Comment: Speci men Type: BLOOD SPECIMEN Ordering Facility: [facility] Address: [address] [place], [place] [address] Performed By: #### 1 9123-9, 44059-7 #### [facility] CLIA [id number] [address] [place] [address] [place] Immature granulocytes (Bld) [#/Vol] 0.03 10*3/uL Normal <0.10 [facility] Comment on above: Order Comment: Speci men Type: BLOOD SPECIMEN Ordering Facility: [facility] Address: [address] Performed By: #### 1 9123-9, 09448-7 #### [facility] CLIA [id number] [address] [place] [address] [place] Immature granulocytes/100 WBC (Bld) 0.3 % Normal [facility] Comment on above: Order Comment: Speci men Type: BLOOD SPECIMEN Ordering Facility: [facility] Address: [address] Performed By: #### 1 9123-9, #### [facility] CLIA [id number] [address] [place] [address] [place] Lymphocytes (Bld) [#/Vol] 2.43 10*3/uL Normal 1.00-4.00 [facility] Comment on above: Order Comment: Speci men Type: BLOOD SPECIMEN Ordering Facility: [facility] Address: [address] [place], [place] [address] Performed By: #### 1 9123-9, #### [facility] CLIA [id number] [address] [place] [address] [place] Lymphocytes/100 WBC (Bld) 23.6 % Normal [facility] Comment on above: Order Comment: Speci men Type: BLOOD SPECIMEN Ordering Facility: [facility] Address: [address] Performed By: #### 1 9123-9, 18545-7 #### [facility] CLIA [id number] [address] [place] [address] [place] MCH (RBC) [Entitic mass] 23.6 pg Low 26.0-34.0 [facility] Comment on above: Order Comment: Speci men Type: BLOOD SPECIMEN Ordering Facility: [facility] Address: [address] Performed By: #### 1 9123-9, 00702-0 #### [facility] CLIA [id number] [address] [place] [address] [place] MCHC (RBC) [Mass/Vol] 30.7 g/dL Normal 30.5-36.0 [facility] Comment on above: Order Comment: Speci men Type: BLOOD SPECIMEN Ordering Facility: [facility] Address: [address] Performed By: #### 1 9123-9, 47555-6 #### [facility] CLIA [id number] [address] [place] [address] [place] MCV (RBC) [Entitic vol] 76.9 fL Low 80.0-100.0 [facility] Comment on above: Order Comment: Speci men Type: BLOOD SPECIMEN Ordering Facility: [facility] Address: [address] Performed By: #### 1 9123-9, 60172-4 #### [facility] CLIA [id number] [address] [place] [address] [place] Monocytes (Bld) [#/Vol] 0.57 10*3/uL Normal <0.87 [facility] Comment on above: Order Comment: Speci men Type: BLOOD SPECIMEN Ordering Facility: [facility] Address: [address] [place] [address] Performed By: #### 1 9123-9, 45588-9 #### [facility] CLIA [id number] [address] [place] [address] [place] Monocytes/100 WBC (Bld) 5.5 % Normal [facility] Comment on above: Order Comment: Speci men Type: BLOOD SPECIMEN Ordering Facility: [facility] Address: [address] Performed By: #### 1 9123-9, 49419-8 #### [facility] CLIA [id number] [address] [place] [id number] [place] Neutrophils (Bld) [#/Vol] 6.89 10*3/uL Normal 1.45-7.50 [facility] Comment on above: Order Comment: Speci men Type: BLOOD SPECIMEN Ordering Facility: [facility] Address: [address] [place], [place] [address] Performed By: #### 1 9123-9, 47644-1 #### [facility] CLIA [id number] [address] [place] [address] [place] Neutrophils/100 WBC (Bld) 67.1 % Normal [facility] Comment on above: Order Comment: Speci men Type: BLOOD SPECIMEN Ordering Facility: [facility] Address: [address] [place] [address] Performed By: #### 1 [id number], #### [facility] CLIA [id number] [address] [place] [address] [place] Nucleated RBC (Bld) [#/Vol] 10*3/uL Normal <0.01 [facility] Comment on above: Order Comment: Speci men Type: BLOOD SPECIMEN Ordering Facility: [facility] Address: [address] [place], [place] [phone] Performed By: #### 1 91239, #### [facility] CLIA [id number] [address] [place] [address] [place] Nucleated RBC/100 WBC (Bld) [Ratio] 0.0 /100 WBC Normal [facility] Comment on above: Order Comment: Speci men Type: BLOOD SPECIMEN Ordering Facility: [facility] Address: [address] [place], [place] [phone] Performed By: #### 1 9123-9, 15163-5 #### [facility] CLIA [id number] [address] [place] [address] [place] Platelet mean volume (Bld) [Entitic vol] 9.0 fL Normal 9.0-12.7 [facility] Comment on above: Order Comment: Speci men Type: BLOOD SPECIMEN Ordering Facility: [facility] Address: [address] [place] [address] Performed By: #### 1 9123-9, 82317-8 #### [facility] CLIA [id number] [address] [place] [address] [place] Platelets (Bld) [#/Vol] 477 10*3/uL High 150-400 [facility] Comment on above: Order Comment: Speci men Type: BLOOD SPECIMEN Ordering Facility: [facility] Address: [address] [place] [address] Performed By: #### 1 9123-9, 45558-1 #### [facility] CLIA [id number] [address] [place] [address] [place] RBC (Bld) [#/Vol] 4.11 10*6/uL Normal 3.90-5.20 [facility] Comment on above: Order Comment: Speci men Type: BLOOD SPECIMEN Ordering Facility: [facility] Address: [address] [place], [place] [phone] Performed By: #### 1 9123-9, 74495-3 #### [facility] CLIA [id number] [address] [place] [address] [place] WBC (Bld) [#/Vol] 10.28 10*3/uL Normal 3.70-11.00 [facility] Comment on above: Order Comment: Speci men Type: BLOOD SPECIMEN Ordering Facility: [facility] Address: [address] [place] [address] Performed By: #### 1 9123-9, 62096-7 #### [facility] CLIA [id number] [address] [place] [address] [place] BRAIN WO IVCONon 03-08-[address] BRAIN WO IVCON * * *Final Report* * * DATE OF EXAM: Mar 08 2024 5:24PM [facility] 0504 - CT BRAIN WO IVCON [...] circulation: Distal vertebral arteries, basilar trunk and professor of finance are normal in caliber. Left V4 is dominant. configuration of the left MEDICAL PHYSICS RESEARCHER. Proximal SCAs, AICAs and PICAs are patent. No vessel cut off, filling defect, significant focal narrowing or evidence of aneurysm. Opacified dural venous sinuses and major deep and superficial draining veins are patent. Ticket Scheduler (topogram) images: No significant findings. IMPRESSION: No acute intracranial abnormality. No large vessel occlusion, stenosis, or aneurysm. Arterial blood flow was measured to detect acute large vessel occlusion by computer aided detection software: Not Performed. Concordance between software and imaging review: Not Applicable. Community Youth Secretary: PSCTeresita Transcribe Date/Time: Mar 08 2024 5:26P Dictated by : JOI MANN DO This examination was interpreted and the report reviewed and electronically signed by: CIERRA CUEVA MD on Mar 08 2024 5:37PM EST [id number] Normal [facility] CTA HEAD W IVCONon 4 CTA HEAD W IVCON * * *Final Report* * * DATE OF EXAM: Mar 08 2024 5:24PM [facility] 0022 - CTA HEAD W IVCON [...] circulation: Distal vertebral arteries, basilar trunk and professor of finance are normal in caliber. Left V4 is dominant. configuration of the left MEDICAL PHYSICS RESEARCHER. Proximal SCAs, AICAs and PICAs are patent. No vessel cut off, filling defect, significant focal narrowing or evidence of aneurysm. Opacified dural venous sinuses and major deep and superficial draining veins are patent. Ticket Scheduler (topogram) images: No significant findings. IMPRESSION: No acute intracranial abnormality. No large vessel occlusion, stenosis, or aneurysm. Arterial blood flow was measured to detect acute large vessel occlusion by computer aided detection software: Not Performed. Concordance between software and imaging review: Not Applicable. Community Youth Secretary: JAYMIE Transcribe Date/Time: Mar 08 2024 5:26P Dictated by : JOI MANN, DO This examination was interpreted and the report reviewed and electronically signed by: CIERRA CUEVA MD on Mar 08 2024 5:37PM EST [id number] Normal [facility] Comprehensive metabolic 2000 panelon 03-08-2024 Albumin [Mass/Vol] 4.1 g/dL Normal 3.9-4.9 [facility] Comment on above: Order Comment: Speci men Type: BLOOD SPECIMEN Ordering Facility: [facility] Address: [address] [address] Performed By: #### 1 9123-9, 07072-4 #### [facility] CLIA [id number] [address] [place] [address] [place] ALP [Catalytic activity/Vol] 83 U/L Normal 34-123 [facility] Comment on above: Order Comment: Speci men Type: BLOOD SPECIMEN Ordering Facility: [facility] Address: [address] Performed By: #### 1 9123-9, 86030-7 #### [facility] CLIA [id number] [address] [place] [address] [place] ALT [Catalytic activity/Vol] 6 U/L Low 7-38 [facility] Comment on above: Order Comment: Speci men Type: BLOOD SPECIMEN Ordering Facility: [facility] Address: [address] [address] Performed By: #### 1 9123-9, 64520-5 #### [facility] CLIA [id number] [address] [place] [address] [place] Anion gap [Moles/Vol] 10 mmol/L Normal 8-15 [facility] Comment on above: Order Comment: Speci men Type: BLOOD SPECIMEN Ordering Facility: [facility] Address: [address] [address] Performed By: #### 1 9123-9, 52451-7 #### [facility] CLIA [id number] [address] [place] [address] [place] AST [Catalytic activity/Vol] 8 U/L Low 13-35 [facility] Comment on above: Order Comment: Speci men Type: BLOOD SPECIMEN Ordering Facility: [facility] Address: [address] [place] [address] Performed By: #### 1 9123-9, 62123-6 #### [facility] CLIA [id number] [address] [place] [address] [place] Bilirubin [Mass/Vol] mg/dL Low 0.2-1.3 [facility] Comment on above: Order Comment: Speci men Type: BLOOD SPECIMEN Ordering Facility: [facility] Address: [address] Performed By: #### 1 9123-9, 55515-8 #### [facility] CLIA [id number] [address] [place] [address] [place] Calcium [Mass/Vol] 9.0 mg/dL Normal 8.5-10.2 [facility] Comment on above: Order Comment: Speci men Type: BLOOD SPECIMEN Ordering Facility: [facility] Address: [address] Performed By: #### 1 9123-9, 51096-7 #### [facility] CLIA [id number] [address] [place] Chloride [Moles/Vol] 108 mmol/L High 98-107 [facility] Comment on above: Order Comment: Tee francisco Type: BLOOD SPECIMEN Ordering Facility: [facility] Address: [address] [place] [address] Performed By: #### 1 9123-9, 00634-0 #### [facility] CLIA [id number] [address] [place] [address] [place] CO2 [Moles/Vol] 22 mmol/L Normal 22-30 [facility] Comment on above: Order Comment: Speci men Type: BLOOD SPECIMEN Ordering Facility: [facility] Address: [address] [place] [address] Performed By: #### 1 9123-9, 60648-6 #### [facility] CLIA [id number] [address] [place] [address] OF [facility] Creatinine [Mass/Vol] 0.79 mg/dL Normal 0.58-0.96 [facility] Comment on above: Order Comment: Specantonina francisco Type: BLOOD SPECIMEN Ordering Facility: [facility] Address: [address] [place] [address] Performed By: #### 1 9123-9, 59522-0 #### [facility] CLIA [id number] [address] [place] [address] Creatinine and Glomerular filtration rate.predicted panel (S/P/Bld) 103 mL/min/1.73m??? Normal >=60 [facility] Comment on above: Order Comment: Neemai maryam Type: BLOOD SPECIMEN Ordering Facility: [facility] Address: [address] [place] [address] Result Comment: Marisa mated Glomerular Filtration Rate [...] actual GFR. Performed By: #### 1 9123-9, 57391-0 #### [facility] CLIA [id number] [address] [place] [address] [place] Glucose [Mass/Vol] 103 mg/dL High 74-99 [facility] Comment on above: Order Comment: Tee francisco Type: BLOOD SPECIMEN Ordering Facility: [facility] Address: [address] [place], [place] [phone] Result Comment: The [place] Diabetes Association (ADA) provides guidance for cutoff [...] Standards of Medical Care in Diabetes 2016, [place] Diabetes Association. Diabetes Care. 2016.39(Suppl 1). Performed By: #### 1 9123-9, 40075-1 #### [facility] CLIA [id number] [address] [place] [address] [place] Potassium [Moles/Vol] 3.9 mmol/L Normal 3.7-5.1 [facility] Comment on above: Order Comment: Tee francisco Type: BLOOD SPECIMEN Ordering Facility: [facility] Address: [address] [place] [address] Performed By: #### 1 9123-9, 26657-8 #### [facility] CLIA [id number] [address] [place] [address] [place] Protein [Mass/Vol] 6.7 g/dL Normal 6.3-8.0 [facility] Comment on above: Order Comment: Tee francisco Type: BLOOD SPECIMEN Ordering Facility: [facility] Address: [address] [id number] Performed By: #### 1 9123-9, 77995-4 #### [facility] CLIA [id number] [address] [place] [address] Sodium [Moles/Vol] 140 mmol/L Normal 136-144 [facility] Comment on above: Order Comment: Speci men Type: BLOOD SPECIMEN Ordering Facility: [facility] Address: [address] [place] [address] Performed By: #### 1 9123-9, 76701-9 #### [facility] CLIA [id number] [address] [place] [address] OF [facility] Urea nitrogen [Mass/Vol] 15 mg/dL Normal 7-21 [facility] Comment on above: Order Comment: Speci men Type: BLOOD SPECIMEN Ordering Facility: [facility] Address: [address] [place] [address] Performed By: #### 1 9123-9, 35399-2 #### [facility] CLIA [id number] [address] [place] [address] OF [facility] ED PROV NOTEon 03-08-2024 ED PROV NOTE HNO ID: [id number] Author: PILAR LOERA MD Service: Emergency Medicine Author Type: Physician Type: ED Provider Notes Filed: 03/08/2024 20:44 Note Text: EMERGENCY MEDICINE NOTE Patient presents with: Headache: Headache for two weeks, no relief with pain medications at home. Hx of brain aneurysm, that was dx 6 months ago with MRI @ [facility]. 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 She has capacity to make that decision. 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 Deemed to have capacity. Very low suspicion for SAH based on HANDP, negative CT imaging. Made follow-up appointment with [facility] neurology and encour (more content not included)... Normal [facility] ED Triage Noteon 03-08-2024 ED Triage Note HNO ID: [id number] Author: MARGOT ARAUJO MD Service: Emergency Medicine [...] this encounter. SIGNATURE: Margot Araujo MD Normal [facility] Magnesium SerPl-mCncon 03-08 Magnesium [Mass/Vol] 2.0 mg/dL Normal 1.7-2.3 [facility] Comment on above: Order Comment: Speci men Type: BLOOD SPECIMEN Ordering Facility: [facility] Address: [address] [place] [address] Performed By: #### 1 9123-9, 24554-9 #### [facility] CLIA [id number] [address] [place] [address] [place] Basic Metabolic Profon 02-11 Anion gap [Moles/Vol] 13 mmol/L Normal 9-17 [facility] Comment on above: Performed By: #### B YOJANA, CDP #### [facility] [address] [place] [address] Senior Ui Ux Developer: Aaron Arteaga MD BUN/CRE Ratio 13 Normal 9-20 [facility] Comment on above: Performed By: #### B YOJANA, CDP #### [facility] [address] [place] [address] Senior Ui Ux Developer: Aaron Arteaga MD Calcium [Mass/Vol] 9.0 mg/dL Normal 8.6-10.4 [facility] Comment on above: Performed By: #### B YOJANA, CDP #### [facility] [address] [place], [place] [phone] Senior Ui Ux Developer: Aaron Arteaga MD Chloride [Moles/Vol] 103 mmol/L Normal 98-107 [facility] Comment on above: Performed By: #### B MP, CDP #### [facility] [address] [place], [place] [phone] Senior Ui Ux Developer: Aaron Arteaga MD CO2 [Moles/Vol] 21 mmol/L Normal 20-31 [facility] Comment on above: Performed By: #### B YOJANA, CDP #### [facility] [address] [place], [place] [phone] Senior Ui Ux Developer: Aaron Arteaga MD Creatinine [Mass/Vol] 0.9 mg/dL Normal 0.5-0.9 [facility] Comment on above: Performed By: #### B YOJANA, CDP #### [facility] [address] [place], [place] [phone] Senior Ui Ux Developer: Aaron Arteaga MD GFR/1.73 sq M.predicted among non-blacks MDRD (S/P/Bld) [Vol rate/Area] 88 mL/min/{1.73_m2} Normal >60 [facility] Comment on above: Result Comment: These results [...] Performed By: #### B YOJANA, CDP #### [facility] [address] [place] [address] Senior Ui Ux Developer: Aaron Arteaga MD Glucose [Mass/Vol] 119 mg/dL High 70-99 [facility] Comment on above: Performed By: #### B YOJANA, CDP #### [facility] [address] [place], [place] [phone] Senior Ui Ux Developer: Aaron Arteaga MD Potassium [Moles/Vol] 4.0 mmol/L Normal 3.7-5.3 [facility] Comment on above: Performed By: #### B YOJANA, CDP #### [facility] [address] [place] [address] Senior Ui Ux Developer: Aaron Arteaga MD Sodium [Moles/Vol] 137 mmol/L Normal 135-144 [facility] Comment on above: Performed By: #### B YOJANA, CDP #### [facility] [address] [place] [address] Senior Ui Ux Developer: Aaron Arteaga MD Urea nitrogen [Mass/Vol] 12 mg/dL Normal 6-20 [facility] Comment on above: Performed By: #### B YOJANA, CDP #### [facility] [address] [place] [address] Senior Ui Ux Developer: Aaron Arteaga MD CBC with Diffon 02-12-2024 Abs. Basophil 0.05 k/uL Normal 0.00-0.20 [facility] Comment on above: Performed By: #### B YOJANA, CDP #### [facility] [address] [place], [place] [phone] Senior Ui Ux Developer: Aaron Arteaga MD Abs.Imm.Granulocyte 0.02 k/uL Normal 0.00-0.30 [facility] Comment on above: Performed By: #### B YOJANA, CDP #### [facility] [address] [place], [place] [phone] Senior Ui Ux Developer: Aaron Arteaga MD Abs.Neutrophil (Seg) 8.95 k/uL High 2.5-7.0 [facility] Comment on above: Performed By: #### B YOJANA, CDP #### [facility] [address] [place], [place] [phone] Senior Ui Ux Developer: Aaron Arteaga MD Basophils/100 WBC (Bld) 0 % Normal 0-2 [facility] Comment on above: Performed By: #### B YOJANA, CDP #### [facility] [address] [place], [place] [phone] Senior Ui Ux Developer: Aaron Arteaga MD Eosinophils (Bld) [#/Vol] 0.09 10*3/uL Normal 0.00-0.40 [facility] Comment on above: Performed By: #### B YOJANA, CDP #### [facility] [address] [place], [place] [phone] Senior Ui Ux Developer: Aaron Arteaga MD Eosinophils/100 WBC (Bld) 1 % Normal 0-5 [facility] Comment on above: Performed By: #### B YOJANA, CDP #### [facility] [address] [place], [place] [phone] Senior Ui Ux Developer: Aaron Arteaga MD Erythrocyte distribution width (RBC) [Ratio] 15.9 % High 12.1-15.2 [facility] Comment on above: Performed By: #### B YOJANA, CDP #### [facility] [address] [place] [address] Senior Ui Ux Developer: Aaron Arteaga MD Hematocrit (Bld) [Volume fraction] 33.0 % Low 36.0-46.0 [facility] Comment on above: Performed By: #### B YOJANA, CDP #### [facility] [address] [place], [place] [phone] Senior Ui Ux Developer: Aaron Arteaga MD Hemoglobin (Bld) [Mass/Vol] 10.6 g/dL Low 12.0-16.0 [facility] Comment on above: Performed By: #### B YOJANA, CDP #### [facility] [address] [place], [place] [phone] Senior Ui Ux Developer: Aaron Arteaga MD Immature granulocytes/100 WBC (Bld) 0 % Normal 0-5 [facility] Comment on above: Performed By: #### B MP, CDP #### [facility] [address] [place] [address] Senior Ui Ux Developer: Aaron Arteaga MD Lymphocytes (Bld) [#/Vol] 2.40 10*3/uL Normal 1.00-4.80 [facility] Comment on above: Performed By: #### B MP, CDP #### [facility] [address] [phone] Senior Ui Ux Developer: Aaron Arteaga MD Lymphocytes/100 WBC (Bld) 20 % Normal 15-40 [facility] Comment on above: Performed By: #### B YOJANA, CDP #### [facility] [address] [phone] Senior Ui Ux Developer: Aaron Arteaga MD MCH (RBC) [Entitic mass] 24.7 pg Low 26.0-34.0 [facility] Comment on above: Performed By: #### B YOJANA, CDP #### [facility] [address] [place] [address] Senior Ui Ux Developer: Aaron Arteaga MD MCHC (RBC) [Mass/Vol] 32.1 g/dL Normal 31.0-37.0 [facility] Comment on above: Performed By: #### B YOJANA, CDP #### [facility] [address] [phone] Senior Ui Ux Developer: Aaron Arteaga MD MCV (RBC) [Entitic vol] 76.9 fL Low 80.0-100.0 [facility] Comment on above: Performed By: #### B MP, CDP #### [facility] [address] [place] [address] Senior Ui Ux Developer: Aaron Arteaga MD Monocytes (Bld) [#/Vol] 0.68 10*3/uL Normal 0.00-1.00 [facility] Comment on above: Performed By: #### B MP, CDP #### [facility] [address] [place] [address] Senior Ui Ux Developer: Aaron Arteaga MD Monocytes/100 WBC (Bld) 6 % Normal 4-8 [facility] Comment on above: Performed By: #### B MP, CDP #### [facility] [address] [place] [address] Senior Ui Ux Developer: Aaron Arteaga MD Neutrophil (Seg) 73 % Normal 47-75 [facility] Comment on above: Performed By: #### B MP, CDP #### [facility] [address] [place] [address] Senior Ui Ux Developer: Aaron Arteaga MD Platelet mean volume (Bld) [Entitic vol] 8.8 fL Normal 6.0-12.0 [facility] Comment on above: Performed By: #### B YOJANA, CDP #### [facility] [address] [place] [address] Senior Ui Ux Developer: Aaron Arteaga MD Platelets (Bld) [#/Vol] 471 10*3/uL High 140-450 [facility] Comment on above: Performed By: #### B YOJANA, CDP #### [facility] [address] [place] [address] Senior Ui Ux Developer: Aaron Arteaga MD RBC (Bld) [#/Vol] 4.29 10*6/uL Normal 4.00-5.20 [facility] Comment on above: Performed By: #### B MP, CDP #### [facility] [address] [place] [address] Senior Ui Ux Developer: Aaron Arteaga MD WBC (Bld) [#/Vol] 12.2 10*3/uL High 3.5-11.0 [facility] Comment on above: Performed By: #### B MP, CDP #### [facility] [address] [place] [address] Senior Ui Ux Developer: Aaron Arteaga MD HCG, Quanton 02-12-2024 HCG, Quant 4942.0 mIU/mL High <5 [facility] Comment on above: Result Comment: Non-preg premeno <=5 Postmeno <=8 Male <=3 If HCG results do not concur with clinical observations, additional testing to confirm results is recommended. Performed By: #### B HCG #### [facility] [address] [place] [address] Senior Ui Ux Developer: Aaron Arteaga MD Surgical Pathology Reporton 02-12-2024 Surgical Pathology Report (NOTE) Path Number: [id number] -- Diagnosis -- PRODUCTS OF CONCEPTION, DILATATION AND CURETTAGE:-PREDOMINANT LY BLOOD WITH A SMALL FIBROTIC CHORIONIC VILLUS, CONSISTENT WITH PRODUCTS OF CONCEPTION. Alisson Marquis Electronically Signed Out tb/02/14/2024 Clinical Information Operative Findings: TISSUE dw Source of Specimen A: PRODUCTS OF CONCEPTION Gross Description QIAN CLEMENTS, UNDESIGNATED Received in formalin are dark red, friable fragments, 10.0 x 5.0 x 3.0 cm in aggregate. No obvious decidual, villous or tissue is seen. Portion 3cs. tm Madison Mullen/katiana1:02/13/2024 Microscopic Description Microscopic examination performed. Processing Lab: [address] [address] Interpretation Performed at [address] [address] SURGICAL PATHOLOGY CONSULTATION Patient Name: QIAN CLEMENTS Chelsey. Med Rec: [id number] [facility] ANATOMIC PATHOLOGY [address] [facility]. [address] Normal [facility] Type + Screenon 02-12-2024 Type + Screen Sample Expiration 02/15/2024,2359 Arm Band Number BWC HIDE ABO/Rh(D) O POSITIVE Antibody Screen NEGATIVE Normal [facility] Comment on above: Performed By: #### T YS #### [facility] [address] [place] [address] Senior Ui Ux Developer: Aaron Arteaga MD US OB LESS THAN [...] Zaheer Markham MD 02/12/24 Final result Normal [facility] CBC AND AUTO DIFFon 09-10-19 ABSOLUTE BASOPHIL 0.0 X10E9/L Normal 0.0-0.2 [facility] Comment on above: Performed By: #### C BC, CMP, 2532-0, 3084-1, 31907-9 #### [facility] ([id number]) [address], [address] [place] [address] ABSOLUTE NEUTROPHIL 12.8 X10E9/L High 1.5-6.6 [facility] Comment on above: Performed By: #### C DHARA, CMP, 2532-0, 3084-1, 09837-1 #### [facility] ([id number]) [address], [address] [place] [address] Basophils/100 WBC (Bld) 0.1 % Normal [facility] Comment on above: Performed By: #### C DHARA, CMP, 2532-0, 3084-1, 16517-1 #### [facility] ([id number]) [address], [address] [place] [address] Eosinophils (Bld) [#/Vol] 0.0 10*3/uL Normal 0.0-0.4 [facility] Comment on above: Performed By: #### Jeremiah JULES, CMP, 2532-0, 3084-1, 37853-2 #### [facility] ([id number]) [address], [address] [place] [address] Eosinophils/100 WBC (Bld) 0.0 % Normal [facility] Comment on above: Performed By: #### Jeremiah JULES CMP, 2532-0, 3084-1, 24739-5 #### [facility] ([id number]) [address], [address] [place] [address] Erythrocyte distribution width (RBC) [Ratio] 15.4 % High 11.5-15.0 [facility] Comment on above: Performed By: #### Jeremiah JULES, CMP, 2532-0, 3084-1, 05648-0 #### [facility] ([id number]) [address], [address] [place] [address] Hematocrit (Bld) [Volume fraction] 28.1 % Low 35-47 [facility] Comment on above: Performed By: #### Jeremiah JULES CMP, 2532-0, 3084-1, 18223-7 #### [facility] ([id number]) [address], [address] [place] [address] Hemoglobin (Bld) [Mass/Vol] 9.3 g/dL Low 11.7-15.5 [facility] Comment on above: Performed By: #### C BC, CMP, 2532-0, 3084-1, 39727-6 #### [facility] ([id number]) [address], [facility] [address] [place] [address] Lymphocytes (Bld) [#/Vol] 1.6 10*3/uL Normal 1.0-3.5 [facility] Comment on above: Performed By: #### C BC, CMP, 2532-0, 3084-1, 66697-6 #### [facility] ([id number]) [address], [facility] [address] [place] [address] Lymphocytes/100 WBC (Bld) 10.8 % Normal [facility] Comment on above: Performed By: #### C BC, CMP, 2532-0, 4-1, 09925-6 #### [facility] ([id number]) [address], [address] [place] [address] MCH (RBC) [Entitic mass] 26.7 pg Low 27-34 [facility] Comment on above: Performed By: #### C BC, CMP, 2532-0, 3084-1, 14123-5 #### [facility] ([id number]) [address], [address] [place] [address] MCHC (RBC) [Mass/Vol] 33.0 g/dL Normal 32-36 [facility] Comment on above: Performed By: #### C BC, CMP, 2532-0, 3084-1, 31828-1 #### [facility] ([id number]) [address], [address] [place] [address] MCV (RBC) [Entitic vol] 81 fL Normal 80-100 [facility] Comment on above: Performed By: #### C BC, CMP, 2532-0, 3084-1, 92879-1 #### [facility] ([id number]) [address], [address] [place] [address] Monocytes (Bld) [#/Vol] 0.1 10*3/uL Normal 0-0.9 [facility] Comment on above: Performed By: #### C DHARA, CMP, 2532-0, 3084-1, 63567-6 #### [facility] ([id number]) [address], [address] [place] [address] Monocytes/100 WBC (Bld) 0.9 % Normal [facility] Comment on above: Performed By: #### Jeremiah JULES, CMP, 2532-0, 4-1, 50217-1 #### [facility] ([id number]) [address], [facility] [address] [place] [address] Neutrophils/100 WBC (Bld) 88.2 % Normal [facility] Comment on above: Performed By: #### Jeremiah JULES, CMP, 2532-0, 4-1, 17779-4 #### [facility] ([id number]) [address], [address] [place] [address] Platelet mean volume (Bld) [Entitic vol] 6.9 fL Low 7-12 [facility] Comment on above: Performed By: #### C BC, CMP, 2532-0, 3084-1, 47892-1 #### [facility] ([id number]) [address], [address] [place] [address] Platelets (Bld) [#/Vol] 657 10*3/uL High 150-450 [facility] Comment on above: Performed By: #### C BC, CMP, 2532-0, 3084-1, 07194-2 #### [facility] ([id number]) [address], [address] [place] [address] RBC COUNT 3.47 X10E12/L Low 3.80-5.20 [facility] Comment on above: Performed By: #### C BC, CMP, 2532-0, 3084-1, 96336-9 #### [facility] ([id number]) [address], [address] [place] [address] WBC (Bld) [#/Vol] 14.6 10*3/uL High 4.0-11.0 [facility] Comment on above: Performed By: #### C BC, CMP, 2532-0, 3084-1, 31601-1 #### [facility] ([id number]) [address], [address] [place] [address] COMPREHENSIVE METABOLIC PANE Ez 09-10-2023 Albumin [Mass/Vol] 3.7 g/dL Normal 3.2-5.3 [facility] Comment on above: Performed By: #### C BC, CMP, 2532-0, 3084-1, 64221-9 #### [facility] ([id number]) [address], [address] [place] [address] ALP [Catalytic activity/Vol] 98 U/L Normal 39-130 [facility] Comment on above: Performed By: #### C BC, CMP, 2532-0, 3084-1, 66934-1 #### [facility] ([id number]) [address], [address] [place] [address] ALT [Catalytic activity/Vol] 11 U/L Normal 0-31 [facility] Comment on above: Performed By: #### C BC, CMP, 2532-0, 3084-1, 38414-1 #### [facility] ([id number]) [address], [address] [place] [address] Anion gap [Moles/Vol] 13 mmol/L Normal 5-15 [facility] Comment on above: Performed By: #### C BC, CMP, 2532-0, 3084-1, 36713-6 #### [facility] ([id number]) [address], [address] [place] [address] AST [Catalytic activity/Vol] 9 U/L Normal 0-41 [facility] Comment on above: Performed By: #### C BC, CMP, 2532-0, 3084-1, 38294-7 #### [facility] ([id number]) [address], [address] [place] [address] Bilirubin [Mass/Vol] 0.3 mg/dL Normal 0.3-1.2 [facility] Comment on above: Performed By: #### Jeremiah JULES, CMP, 2532-0, 3084-1, 55164-4 #### [facility] ([id number]) [address], [address] [place] [address] Calcium [Mass/Vol] 8.9 mg/dL Normal 8.5-10.5 [facility] Comment on above: Performed By: #### Jeremiah BC, CMP, 2532-0, 3084-1, 40547-0 #### [facility] ([id number]) [address], [address] [place] [address] Chloride [Moles/Vol] 104 mmol/L Normal 98-109 [facility] Comment on above: Performed By: #### Jeremiah BC, CMP, 2532-0, 3084-1, 39895-6 #### [facility] ([id number]) [address], [address] [place] [address] CO2 [Moles/Vol] 20 mmol/L Low 22-32 [facility] Comment on above: Performed By: #### Jeremiah BC, CMP, 2532-0, 3084-1, 23625-5 #### [facility] ([id number]) [address], [address] [place] [address] Creatinine [Mass/Vol] 0.75 mg/dL Normal 0.40-1.00 [facility] Comment on above: Result Comment: METH OD TRACEABLE TO IDMS STANDARD Performed By: #### C DHARA CMP, 2532-0, 3084-1, 61821-7 #### [facility] ([id number]) [address], [address] [place] [address] eGFR (CKD-EPI) NON-RACE DEPENDENT >90 Normal >59 [facility] Comment on above: Result Comment: Reported eGFR is based on the CKD-EPI 2020 equation that does not use a race coefficient. Performed By: #### Jeremiah JULES CMP, 2532-0, 3084-1, 09489-4 #### [facility] ([id number]) [address] [address] [place] [address] Glucose [Mass/Vol] 179 mg/dL High 65-99 [facility] Comment on above: Performed By: #### Jeremiah JULES CMP, 2532-0, 3084-1, 06692-2 #### [facility] ([id number]) [address] [address] Potassium [Moles/Vol] 4.1 mmol/L Normal 3.5-5.0 [facility] Comment on above: Performed By: #### Jeremiah BC, CMP, 2532-0, 3084-1, 28676-7 #### [facility] ([id number]) [address] [address] [place] [address] Protein [Mass/Vol] 7.1 g/dL Normal 6.0-8.0 [facility] Comment on above: Performed By: #### Jeremiah BC, CMP, 2532-0, 3084-1, 70760-5 #### [facility] ([id number]) [address], [address] [place] [address] Sodium [Moles/Vol] 137 mmol/L Normal 134-146 [facility] Comment on above: Performed By: #### C BC, CMP, 2532-0, 3084-1, 50677-1 #### [facility] ([id number]) [address], [facility] [address] [place] [address] Urea nitrogen [Mass/Vol] 13 mg/dL Normal 5-23 [facility] Comment on above: Performed By: #### C BC, CMP, 2532-0, 3084-1, 65649-0 #### [facility] ([id number]) [address] [address] CBC AND AUTO DIFFon 09-09-19 24 ABSOLUTE BASOPHIL 0.1 X10E9/L Normal 0.0-0.2 [facility] Comment on above: Performed By: #### C BC, CMP, 2532-0, 3084-1, 64738-8 #### [facility] ([id number]) [address] [address] [place] [address] ABSOLUTE NEUTROPHIL 7.1 X10E9/L High 1.5-6.6 [facility] Comment on above: Performed By: #### C BC, CMP, 2532-0, 3084-1, 98596-3 #### [facility] ([id number]) [address] [address] Basophils/100 WBC (Bld) 1.0 % Normal [facility] Comment on above: Performed By: #### C BC, CMP, 2532-0, 3084-1, 41319-5 #### [facility] ([id number]) [address] [address] [place] [address] Eosinophils (Bld) [#/Vol] 0.2 10*3/uL Normal 0.0-0.4 [facility] Comment on above: Performed By: #### C BC, CMP, 2532-0, 3084-1, 75107-5 #### [facility] ([id number]) [address] [address] Eosinophils/100 WBC (Bld) 1.4 % Normal [facility] Comment on above: Performed By: #### C BC, CMP, 2532-0, 3084-1, 73928-7 #### [facility] ([id number]) [address] [address] Erythrocyte distribution width (RBC) [Ratio] 15.6 % High 11.5-15.0 [facility] Comment on above: Performed By: #### C BC, CMP, 2532-0, 3084-1, 80873-6 #### [facility] ([id number]) [address] [address] Hematocrit (Bld) [Volume fraction] 25.1 % Low 35-47 [facility] Comment on above: Performed By: #### C BC, CMP, 2532-0, 3084-1, 78363-6 #### [facility] ([id number]) [address] [address] Hemoglobin (Bld) [Mass/Vol] 8.2 g/dL Low 11.7-15.5 [facility] Comment on above: Performed By: #### C BC, CMP, 2532-0, 3084-1, 05732-2 #### [facility] ([id number]) [address] [address] Lymphocytes (Bld) [#/Vol] 2.8 10*3/uL Normal 1.0-3.5 [facility] Comment on above: Performed By: #### C BC, CMP, 2532-0, 3084-1, 76156-1 #### [facility] ([id number]) [address] [place] [address] Lymphocytes/100 WBC (Bld) 26.0 % Normal [facility] Comment on above: Performed By: #### C BC, CMP, 2532-0, 4-1, 34132-5 #### [facility] ([id number]) [address], [facility] [address] [place] [address] MCH (RBC) [Entitic mass] 26.7 pg Low 27-34 [facility] Comment on above: Performed By: #### C BC, CMP, 2532-0, 3083-1, 13837-7 #### [facility] ([id number]) [address], [facility] [address] [place] [address] MCHC (RBC) [Mass/Vol] 32.6 g/dL Normal 32-36 [facility] Comment on above: Performed By: #### Jeremiah JULES, CMP, 2-0, 3083-1, 70750-1 #### [facility] ([id number]) [address], [address] [place] [address] MCV (RBC) [Entitic vol] 82 fL Normal 80-100 [facility] Comment on above: Performed By: #### Jeremiah JULES, CMP, 2532-0, 3083-1, 59087-7 #### [facility] ([id number]) [address], [address] [place] [address] Monocytes (Bld) [#/Vol] 0.7 10*3/uL Normal 0-0.9 [facility] Comment on above: Performed By: #### Jeremiah BC, CMP, 2532-0, 3083-1, 45304-9 #### [facility] ([id number]) [address], [address] [place] [address] Monocytes/100 WBC (Bld) 6.5 % Normal [facility] Comment on above: Performed By: #### Jeremiah BC, CMP, 2532-0, 4-1, 18975-9 #### [facility] ([id number]) [address], [address] [place] [address] Neutrophils/100 WBC (Bld) 65.1 % Normal [facility] Comment on above: Performed By: #### C BC, CMP, 2532-0, 3084-1, 32166-8 #### [facility] ([id number]) [address], [address] [place] [address] Platelet mean volume (Bld) [Entitic vol] 6.9 fL Low 7-12 [facility] Comment on above: Performed By: #### C BC, CMP, 2532-0, 4-1, 16774-6 #### [facility] ([id number]) [address], [address] [place] [address] Platelets (Bld) [#/Vol] 464 10*3/uL High 150-450 [facility] Comment on above: Performed By: #### C BC, CMP, 2532-0, 3084-1, 15885-7 #### [facility] ([id number]) [address], [address] [place] [address] RBC COUNT 3.07 X10E12/L Low 3.80-5.20 [facility] Comment on above: Performed By: #### C BC, CMP, 2532-0, 3084-1, 77448-4 #### [facility] ([id number]) [address], [address] [place] [address] WBC (Bld) [#/Vol] 10.8 10*3/uL Normal 4.0-11.0 [facility] Comment on above: Performed By: #### C BC, CMP, 2532-0, 3084-1, 64552-5 #### [facility] ([id number]) [address], [address] [place] [address] COMPREHENSIVE METABOLIC PANE Ez 09-09-2023 Albumin [Mass/Vol] 3.1 g/dL Low 3.2-5.3 [facility] Comment on above: Performed By: #### C BC, CMP, 2532-0, 3084-1, 40490-5 #### [facility] ([id number]) [address], [address] [place] [address] ALP [Catalytic activity/Vol] 91 U/L Normal 39-130 [facility] Comment on above: Performed By: #### C BC, CMP, 2532-0, 3084-1, 60638-9 #### [facility] ([id number]) [address], [address] [place] [address] ALT [Catalytic activity/Vol] 8 U/L Normal 0-31 [facility] Comment on above: Performed By: #### C BC, CMP, 2532-0, 3084-1, 12008-6 #### [facility] ([id number]) [address], [address] [place] [address] Anion gap [Moles/Vol] 9 mmol/L Normal 5-15 [facility] Comment on above: Performed By: #### C BC, CMP, 2532-0, 3084-1, 34416-9 #### [facility] ([id number]) [address], [address] [place] [address] AST [Catalytic activity/Vol] 12 U/L Normal 0-41 [facility] Comment on above: Performed By: #### C BC, CMP, 2532-0, 3084-1, 64221-5 #### [facility] ([id number]) [address], [address] [place] [address] Bilirubin [Mass/Vol] 0.2 mg/dL Low 0.3-1.2 [facility] Comment on above: Performed By: #### C BC, CMP, 2532-0, 3084-1, 14112-9 #### [facility] ([id number]) [address], [address] [place] [address] Calcium [Mass/Vol] 8.2 mg/dL Low 8.5-10.5 [facility] Comment on above: Performed By: #### C BC, CMP, 2532-0, 3084-1, 73030-8 #### [facility] ([id number]) [address], [address] [place] [address] Chloride [Moles/Vol] 108 mmol/L Normal 98-109 [facility] Comment on above: Performed By: #### Jeremiah BC, CMP, 2532-0, 3084-1, 90753-8 #### [facility] ([id number]) [address], [address] [place] [address] CO2 [Moles/Vol] 23 mmol/L Normal 22-32 [facility] Comment on above: Performed By: #### Jeremiah BC, CMP, 2532-0, 3084-1, 27884-0 #### [facility] ([id number]) [address], [facility] [address] [place] [address] Creatinine [Mass/Vol] 0.71 mg/dL Normal 0.40-1.00 [facility] Comment on above: Result Comment: METH OD TRACEABLE TO IDMS STANDARD Performed By: #### Jeremiah BC, CMP, 2532-0, 3084-1, 62450-2 #### [facility] ([id number]) [address], [address] [place] [address] eGFR (CKD-EPI) NON-RACE DEPENDENT >90 Normal >59 [facility] Comment on above: Result Comment: Reported eGFR is based on the CKD-EPI 2020 equation that does not use a race coefficient. Performed By: #### C BC, CMP, 2532-0, 3084-1, 16541-6 #### [facility] ([id number]) [address], [address] [place] [address] Glucose [Mass/Vol] 80 mg/dL Normal 65-99 [facility] Comment on above: Performed By: #### C DHARA, CMP, 2532-0, 3084-1, 63103-0 #### [facility] ([id number]) [address], [address] [place] [address] Potassium [Moles/Vol] 4.5 mmol/L Normal 3.5-5.0 [facility] Comment on above: Performed By: #### C BC, CMP, 2532-0, 3084-1, 76276-2 #### [facility] ([id number]) [address], [facility] [address] [place] [address] Protein [Mass/Vol] 5.9 g/dL Low 6.0-8.0 [facility] Comment on above: Performed By: #### Jeremiah JULES, CMP, 2532-0, 4-1, 87726-9 #### [facility] ([id number]) [address] [place] [address] Sodium [Moles/Vol] 140 mmol/L Normal 134-146 [facility] Comment on above: Performed By: #### Jeremiah JULES, CMP, 2532-0, 4-1, 08345-3 #### [facility] ([id number]) [address] [place] [address] Urea nitrogen [Mass/Vol] 17 mg/dL Normal 5-23 [facility] Comment on above: Performed By: #### Jeremiah BC, CMP, 2532-0, 3084-1, 41680-1 #### [facility] ([id number]) [address] [place] [address] CBC AND AUTO DIFFon 09-08-19 24 ABSOLUTE BASOPHIL 0.1 X10E9/L Normal 0.0-0.2 [facility] Comment on above: Performed By: #### Jeremiah BC, CMP, 2532-0, 3084-1, 10784-7 #### [facility] ([id number]) [address] [place] [address] ABSOLUTE NEUTROPHIL 8.4 X10E9/L High 1.5-6.6 [facility] Comment on above: Performed By: #### C BC, CMP, 2532-0, 3084-1, 78693-0 #### [facility] ([id number]) [address] [place] [address] Basophils/100 WBC (Bld) 0.6 % Normal [facility] Comment on above: Performed By: #### C BC, CMP, 2532-0, 4-1, 53757-6 #### [facility] ([id number]) [address], [facility] [address] [place] [address] Eosinophils (Bld) [#/Vol] 0.2 10*3/uL Normal 0.0-0.4 [facility] Comment on above: Performed By: #### C DHARA, CMP, 2-0, 4-1, 14246-2 #### [facility] ([id number]) [address] [place] [address] Eosinophils/100 WBC (Bld) 1.3 % Normal [facility] Comment on above: Performed By: #### C BC, CMP, 2532-0, 4-1, 10878-5 #### [facility] ([id number]) [address] [place] [address] Erythrocyte distribution width (RBC) [Ratio] 15.3 % High 11.5-15.0 [facility] Comment on above: Performed By: #### C BC, CMP, 2532-0, 3084-1, 68426-9 #### [facility] ([id number]) [address] [place] [address] Hematocrit (Bld) [Volume fraction] 25.5 % Low 35-47 [facility] Comment on above: Performed By: #### C BC, CMP, 2532-0, 3084-1, 61602-9 #### [facility] ([id number]) [address] [place] [address] Hemoglobin (Bld) [Mass/Vol] 8.4 g/dL Low 11.7-15.5 [facility] Comment on above: Performed By: #### C BC, CMP, 2532-0, 4-1, 29168-2 #### [facility] ([id number]) [address] [place] [address] Lymphocytes (Bld) [#/Vol] 3.0 10*3/uL Normal 1.0-3.5 [facility] Comment on above: Performed By: #### Jeremiah BC, CMP, 2532-0, 4-1, 50553-5 #### [facility] ([id number]) [address] [place] [address] Lymphocytes/100 WBC (Bld) 24.2 % Normal [facility] Comment on above: Performed By: #### C BC, CMP, 2532-0, 4-1, 50396-3 #### [facility] ([id number]) [address] [place] [address] MCH (RBC) [Entitic mass] 26.6 pg Low 27-34 [facility] Comment on above: Performed By: #### C BC, CMP, 2532-0, 3084-1, 16705-1 #### [facility] ([id number]) [address], [address] [place] [address] MCHC (RBC) [Mass/Vol] 33.1 g/dL Normal 32-36 [facility] Comment on above: Performed By: #### C BC, CMP, 2532-0, 3084-1, 14876-6 #### [facility] ([id number]) [address], [address] [place] [address] MCV (RBC) [Entitic vol] 80 fL Normal 80-100 [facility] Comment on above: Performed By: #### C BC, CMP, 2532-0, 3084-1, 16635-9 #### [facility] ([id number]) [address], [address] [place] [address] Monocytes (Bld) [#/Vol] 0.7 10*3/uL Normal 0-0.9 [facility] Comment on above: Performed By: #### Jeremiah BC, CMP, 2532-0, 4-1, 65932-8 #### [facility] ([id number]) [address], [facility] [address] [place] [address] Monocytes/100 WBC (Bld) 6.0 % Normal [facility] Comment on above: Performed By: #### Jeremiah BC, CMP, 2532-0, 4-1, 56642-4 #### [facility] ([id number]) [address], [facility] [address] [place] [address] Neutrophils/100 WBC (Bld) 67.9 % Normal [facility] Comment on above: Performed By: #### Jeremiah BC, CMP, 2532-0, 4-1, 77522-5 #### [facility] [facility] ([id number]) [address], [address] [place] [address] Platelet mean volume (Bld) [Entitic vol] 6.4 fL Low 7-12 [facility] Comment on above: Performed By: #### C BC, CMP, 2532-0, 4-1, 37977-2 #### [facility] ([id number]) [address], [address] [place] [address] Platelets (Bld) [#/Vol] 542 10*3/uL High 150-450 [facility] Comment on above: Performed By: #### C BC, CMP, 2532-0, 3084-1, 37740-7 #### [facility] ([id number]) [address], [address] [place] [address] RBC COUNT 3.17 X10E12/L Low 3.80-5.20 [facility] Comment on above: Performed By: #### C BC, CMP, 2532-0, 3084-1, 33957-1 #### [facility] ([id number]) [address], [address] [place] [address] WBC (Bld) [#/Vol] 12.4 10*3/uL High 4.0-11.0 [facility] Comment on above: Performed By: #### C BC, CMP, 2532-0, 3084-1, 47925-8 #### [facility] ([id number]) [address], [address] [place] [address] COMPREHENSIVE METABOLIC PANE Ez 09-08-2023 Albumin [Mass/Vol] 3.3 g/dL Normal 3.2-5.3 [facility] Comment on above: Performed By: #### C BC, CMP, 2532-0, 3084-1, 32594-9 #### [facility] ([id number]) [address], [address] [place] [address] ALP [Catalytic activity/Vol] 94 U/L Normal 39-130 [facility] Comment on above: Performed By: #### C BC, CMP, 2532-0, 3084-1, 40776-5 #### [facility] ([id number]) [address], [address] [place] [address] ALT [Catalytic activity/Vol] 11 U/L Normal 0-31 [facility] Comment on above: Performed By: #### C BC, CMP, 2532-0, 3084-1, 71451-3 #### [facility] ([id number]) [address], [address] [place] [address] Anion gap [Moles/Vol] 10 mmol/L Normal 5-15 [facility] Comment on above: Performed By: #### C BC, CMP, 2532-0, 3084-1, 33996-8 #### [facility] ([id number]) [address], [address] [place] [address] AST [Catalytic activity/Vol] 10 U/L Normal 0-41 [facility] Comment on above: Performed By: #### Jeremiah JULES, CMP, 2532-0, 3084-1, 70888-9 #### [facility] ([id number]) [address], [address] [place] [address] Bilirubin [Mass/Vol] 0.2 mg/dL Low 0.3-1.2 [facility] Comment on above: Performed By: #### Jeremiah JULES, CMP, 2532-0, 3084-1, 39912-4 #### [facility] ([id number]) [address], [address] [place] [address] Calcium [Mass/Vol] 8.3 mg/dL Low 8.5-10.5 [facility] Comment on above: Performed By: #### Jeremiah JULES, CMP, 2532-0, 3084-1, 57346-1 #### [facility] ([id number]) [address], [address] [place] [address] Chloride [Moles/Vol] 107 mmol/L Normal 98-109 [facility] Comment on above: Performed By: #### Jeremiah BC, CMP, 2532-0, 3084-1, 83359-5 #### [facility] ([id number]) [address], [address] [place] [address] CO2 [Moles/Vol] 25 mmol/L Normal 22-32 [facility] Comment on above: Performed By: #### C BC, CMP, 2532-0, 3084-1, 96290-0 #### [facility] ([id number]) [address], [address] [place] [address] Creatinine [Mass/Vol] 0.88 mg/dL Normal 0.40-1.00 [facility] Comment on above: Result Comment: METH OD TRACEABLE TO IDMS STANDARD Performed By: #### C BC, CMP, 2532-0, 3084-1, 43865-1 #### [facility] ([id number]) [address], [address] [place] [address] eGFR (CKD-EPI) NON-RACE DEPENDENT >90 Normal >59 [facility] Comment on above: Result Comment: Reported eGFR is based on the CKD-EPI 2020 equation that does not use a race coefficient. Performed By: #### C DHARA CMP, 2532-0, 4-1, 64191-2 #### [facility] ([id number]) [address], [address] [place] [address] Glucose [Mass/Vol] 93 mg/dL Normal 65-99 [facility] Comment on above: Performed By: #### Jeremiah JULES CMP, 2532-0, 4-1, 92239-0 #### [facility] ([id number]) [address], [address] [place] [address] Potassium [Moles/Vol] 4.3 mmol/L Normal 3.5-5.0 [facility] Comment on above: Performed By: #### Jeremiah JULES, CMP, 2532-0, 3084-1, 77268-4 #### [facility] ([id number]) [address], [address] [place] [address] Protein [Mass/Vol] 6.2 g/dL Normal 6.0-8.0 [facility] Comment on above: Performed By: #### Jeremiah BC, CMP, 2532-0, 3084-1, 86292-8 #### [facility] ([id number]) [address], [address] [place] [address] Sodium [Moles/Vol] 142 mmol/L Normal 134-146 [facility] Comment on above: Performed By: #### eJremiah BC, CMP, 2532-0, 3084-1, 25540-9 #### [facility] ([id number]) [address], [address] [place] [address] Urea nitrogen [Mass/Vol] 16 mg/dL Normal 5-23 [facility] Comment on above: Performed By: #### Jeremiah BC, CMP, 2532-0, 3084-1, 85406-6 #### [facility] ([id number]) [address], [address] [place] [address] Natriuretic peptide B [Mass/ Vol]on 09-08-2023 Natriuretic peptide B (Bld) [Mass/Vol] 95 pg/mL Normal <100.0 [facility] Comment on above: Performed By: #### Jeremiah BC, CMP, 2532-0, 3084-1, 67249-4 #### [facility] ([id number]) [address], [address] [place] [address] CBC AND AUTO DIFFon 09-06-19 24 ABSOLUTE BASOPHIL 0.1 X10E9/L Normal 0.0-0.2 [facility] Comment on above: Performed By: #### Jeremiah BC, CMP, 2532-0, 3084-1, 18989-0 #### [facility] ([id number]) [address], [address] [place] [address] ABSOLUTE NEUTROPHIL 8.9 X10E9/L High 1.5-6.6 [facility] Comment on above: Performed By: #### Jeremiah BC, CMP, 2532-0, 3084-1, 02526-3 #### [facility] ([id number]) [address], [address] [place] [address] Basophils/100 WBC (Bld) 0.5 % Normal [facility] Comment on above: Performed By: #### C BC, CMP, 2532-0, 3084-1, 66529-9 #### [facility] ([id number]) [address], [facility] [address] [place] [address] Eosinophils (Bld) [#/Vol] 0.2 10*3/uL Normal 0.0-0.4 [facility] Comment on above: Performed By: #### C BC, CMP, 2532-0, 4-1, 80655-7 #### [facility] ([id number]) [address], [facility] [address] [place] [address] Eosinophils/100 WBC (Bld) 1.6 % Normal [facility] Comment on above: Performed By: #### Jeremiah JULES, CMP, 2-0, 4-1, 66112-5 #### [facility] ([id number]) [address], [facility] [address] [place] [address] Erythrocyte distribution width (RBC) [Ratio] 15.0 % Normal 11.5-15.0 [facility] Comment on above: Performed By: #### Jeremiah JULES, CMP, 2532-0, 3083-1, 44193-4 #### [facility] ([id number]) [address], [facility] [address] [place] [address] Hematocrit (Bld) [Volume fraction] 30.4 % Low 35-47 [facility] Comment on above: Performed By: #### C BC, CMP, 2532-0, 3084-1, 74697-7 #### [facility] ([id number]) [address], [facility] [address] [place] [address] Hemoglobin (Bld) [Mass/Vol] 9.8 g/dL Low 11.7-15.5 [facility] Comment on above: Performed By: #### C BC, CMP, 2532-0, 3084-1, 97342-8 #### [facility] ([id number]) [address], [address] [place] [address] Lymphocytes (Bld) [#/Vol] 4.4 10*3/uL High 1.0-3.5 [facility] Comment on above: Performed By: #### C BC, CMP, 2532-0, 4-1, 11993-6 #### [facility] ([id number]) [address], [facility] [address] [place] [address] Lymphocytes/100 WBC (Bld) 29.9 % Normal [facility] Comment on above: Performed By: #### Jeremiah JULES, CMP, 2532-0, 4-1, 71999-2 #### [facility] ([id number]) [address] [address] [place] [address] MCH (RBC) [Entitic mass] 26.6 pg Low 27-34 [facility] Comment on above: Performed By: #### Jeremiah JULES, CMP, 2-0, 4-1, 61157-5 #### [facility] ([id number]) [address] [address] [place] [address] MCHC (RBC) [Mass/Vol] 32.3 g/dL Normal 32-36 [facility] Comment on above: Performed By: #### Jeremiah BC, CMP, 2532-0, 4-1, 42346-2 #### [facility] ([id number]) [address] [address] [place] [address] MCV (RBC) [Entitic vol] 82 fL Normal 80-100 [facility] Comment on above: Performed By: #### Jeremiah BC, CMP, 2532-0, 4-1, 72470-2 #### [facility] ([id number]) [address], [address] [place] [address] Monocytes (Bld) [#/Vol] 1.0 10*3/uL High 0-0.9 [facility] Comment on above: Performed By: #### C BC, CMP, 2532-0, 3084-1, 37817-9 #### [facility] ([id number]) [address], [address] [place] [address] Monocytes/100 WBC (Bld) 6.7 % Normal [facility] Comment on above: Performed By: #### Jeremiah BC, CMP, 2532-0, 3084-1, 33104-4 #### [facility] ([id number]) [address], [address] [place] [address] Neutrophils/100 WBC (Bld) 61.3 % Normal [facility] Comment on above: Performed By: #### Jeremiah JULES, CMP, 2532-0, 4-1, 50679-8 #### [facility] ([id number]) [address], [address] [place] [address] Platelet mean volume (Bld) [Entitic vol] 7.1 fL Normal 7-12 [facility] Comment on above: Performed By: #### Jeremiah BC, CMP, 2532-0, 4-1, 77174-2 #### [facility] ([id number]) [address], [address] [place] [address] Platelets (Bld) [#/Vol] 663 10*3/uL High 150-450 [facility] Comment on above: Performed By: #### Jeremiah BC, CMP, 2532-0, 3084-1, 00301-5 #### [facility] ([id number]) [address], [address] [place] [address] RBC COUNT 3.69 X10E12/L Low 3.80-5.20 [facility] Comment on above: Performed By: #### Jeremiah BC, CMP, 2532-0, 3084-1, 89738-9 #### [facility] ([id number]) [address], [address] [place] [address] WBC (Bld) [#/Vol] 14.6 10*3/uL High 4.0-11.0 [facility] Comment on above: Performed By: #### C BC, CMP, 2532-0, 3084-1, 93985-2 #### [facility] ([id number]) [address], [address] [place] [address] COMPREHENSIVE METABOLIC PANE Ez 09-06-2023 Albumin [Mass/Vol] 3.5 g/dL Normal 3.2-5.3 [facility] Comment on above: Performed By: #### Jeremiah JULES, CMP, 2532-0, 3084-1, 77313-3 #### [facility] ([id number]) [address], [address] [place] [address] ALP [Catalytic activity/Vol] 110 U/L Normal 39-130 [facility] Comment on above: Performed By: #### Jeremiah JULES, CMP, 2532-0, 3084-1, 37125-7 #### [facility] ([id number]) [address], [address] [place] [address] ALT [Catalytic activity/Vol] 12 U/L Normal 0-31 [facility] Comment on above: Performed By: #### Jeremiah BC, CMP, 2532-0, 3084-1, 14103-5 #### [facility] ([id number]) [address], [address] [place] [address] Anion gap [Moles/Vol] 9 mmol/L Normal 5-15 [facility] Comment on above: Performed By: #### Jeremiah BC, CMP, 2532-0, 3084-1, 73366-4 #### [facility] ([id number]) [address], [address] [place] [address] AST [Catalytic activity/Vol] 11 U/L Normal 0-41 [facility] Comment on above: Performed By: #### C BC, CMP, 2532-0, 3084-1, 50221-1 #### [facility] ([id number]) [address], [address] [place] [address] Bilirubin [Mass/Vol] 0.3 mg/dL Normal 0.3-1.2 [facility] Comment on above: Performed By: #### C BC, CMP, 2532-0, 3084-1, 25116-5 #### [facility] ([id number]) [address], [address] [place] [address] Calcium [Mass/Vol] 9.2 mg/dL Normal 8.5-10.5 [facility] Comment on above: Performed By: #### C BC, CMP, 2532-0, 3084-1, 37757-0 #### [facility] ([id number]) [address], [address] [place] [address] Chloride [Moles/Vol] 100 mmol/L Normal 98-109 [facility] Comment on above: Performed By: #### C BC, CMP, 2532-0, 3084-1, 74094-8 #### [facility] ([id number]) [address], [address] [place] [address] CO2 [Moles/Vol] 28 mmol/L Normal 22-32 [facility] Comment on above: Performed By: #### C BC, CMP, 2532-0, 3084-1, 22927-6 #### [facility] ([id number]) [address], [address] [place] [address] Creatinine [Mass/Vol] 0.81 mg/dL Normal 0.40-1.00 [facility] Comment on above: Result Comment: METH OD TRACEABLE TO IDMS STANDARD Performed By: #### C BC, CMP, 2532-0, 3084-1, 37872-6 #### [facility] ([id number]) [address], [address] [place] [address] eGFR (CKD-EPI) NON-RACE DEPENDENT >90 Normal >59 [facility] Comment on above: Result Comment: Reported eGFR is based on the CKD-EPI 2020 equation that does not use a race coefficient. Performed By: #### Jeremiah JULES CMP, 2532-0, 3084-1, 14408-0 #### [facility] ([id number]) [address], [address] [place] [address] Glucose [Mass/Vol] 92 mg/dL Normal 65-99 [facility] Comment on above: Performed By: #### Jeremiah JULES CMP, 2532-0, 3084-1, 36993-0 #### [facility] ([id number]) [address], [address] [place] [address] Potassium [Moles/Vol] 3.7 mmol/L Normal 3.5-5.0 [facility] Comment on above: Performed By: #### Jeremiah JULES CMP, 2532-0, 3084-1, 06360-2 #### [facility] ([id number]) [address], [address] [place] [address] Protein [Mass/Vol] 6.8 g/dL Normal 6.0-8.0 [facility] Comment on above: Performed By: #### Jeremiah JULES, CMP, 2532-0, 3084-1, 05322-1 #### [facility] ([id number]) [address], [address] [place] [address] Sodium [Moles/Vol] 137 mmol/L Normal 134-146 [facility] Comment on above: Performed By: #### Jeremiah JULES, CMP, 2532-0, 3084-1, 56245-2 #### [facility] ([id number]) [address], [address] [place] [address] Urea nitrogen [Mass/Vol] 17 mg/dL Normal 5-23 [facility] Comment on above: Performed By: #### C BC, CMP, 2532-0, 3084-1, 54385-6 #### [facility] ([id number]) [address], [address] [place] [address] COMPLETE BLOOD COUNTon 09-04 Erythrocyte distribution width (RBC) [Ratio] 14.8 % Normal 11.5-15.0 [facility] Comment on above: Performed By: #### C BC, CMP, 2532-0, 3084-1, 91438-5 #### [facility] ([id number]) [address], [facility] [address] [place] [address] Hematocrit (Bld) [Volume fraction] 25.3 % Low 35-47 [facility] Comment on above: Performed By: #### C BC, CMP, 2532-0, 3084-1, 59431-5 #### [facility] ([id number]) [address], [address] [place] [address] Hemoglobin (Bld) [Mass/Vol] 8.2 g/dL Low 11.7-15.5 [facility] Comment on above: Performed By: #### C BC, CMP, 2532-0, 3084-1, 47830-0 #### [facility] ([id number]) [address], [address] [place] [address] MCH (RBC) [Entitic mass] 26.4 pg Low 27-34 [facility] Comment on above: Performed By: #### C BC, CMP, 2532-0, 3084-1, 36587-5 #### [facility] ([id number]) [address], [address] [place] [address] MCHC (RBC) [Mass/Vol] 32.6 g/dL Normal 32-36 [facility] Comment on above: Performed By: #### C BC, CMP, 2532-0, 3084-1, 82258-4 #### [facility] ([id number]) [address], [address] [place] [address] MCV (RBC) [Entitic vol] 81 fL Normal 80-100 [facility] Comment on above: Performed By: #### C BC, CMP, 2532-0, 3084-1, 08419-8 #### [facility] ([id number]) [address], [address] [place] [address] Platelet mean volume (Bld) [Entitic vol] 7.0 fL Normal 7-12 [facility] Comment on above: Performed By: #### C BC, CMP, 2532-0, 3084-1, 48801-3 #### [facility] ([id number]) [address], [address] [place] [address] Platelets (Bld) [#/Vol] 411 10*3/uL Normal 150-450 [facility] Comment on above: Performed By: #### C BC, CMP, 2532-0, 3084-1, 24210-3 #### [facility] ([id number]) [address], [address] [place] [address] RBC COUNT 3.12 X10E12/L Low 3.80-5.20 [facility] Comment on above: Performed By: #### C BC, CMP, 2532-0, 4-1, 96206-5 #### [facility] ([id number]) [address], [address] [place] [address] WBC (Bld) [#/Vol] 11.5 10*3/uL High 4.0-11.0 [facility] Comment on above: Performed By: #### C BC, CMP, 2532-0, 3084-1, 93443-9 #### [facility] ([id number]) [address], [address] [place] [address] COMPREHENSIVE METABOLIC PANE Ez 09-04-2023 Albumin [Mass/Vol] 3.1 g/dL Low 3.2-5.3 [facility] Comment on above: Performed By: #### C BC, CMP, 2532-0, 3084-1, 74314-1 #### [facility] ([id number]) [address], [address] [place] [address] ALP [Catalytic activity/Vol] 85 U/L Normal 39-130 [facility] Comment on above: Performed By: #### C BC, CMP, 2532-0, 3084-1, 32209-7 #### [facility] ([id number]) [address], [address] [place] [address] ALT [Catalytic activity/Vol] 11 U/L Normal 0-31 [facility] Comment on above: Performed By: #### Jeremiah BC, CMP, 2532-0, 3084-1, 22520-7 #### [facility] ([id number]) [address], [address] [place] [address] Anion gap [Moles/Vol] 11 mmol/L Normal 5-15 [facility] Comment on above: Performed By: #### C BC, CMP, 2532-0, 3084-1, 47379-2 #### [facility] ([id number]) [address], [address] [place] [address] AST [Catalytic activity/Vol] 12 U/L Normal 0-41 [facility] Comment on above: Performed By: #### C BC, CMP, 2532-0, 3084-1, 92411-7 #### [facility] ([id number]) [address], [address] [place] [address] Bilirubin [Mass/Vol] 0.2 mg/dL Low 0.3-1.2 [facility] Comment on above: Performed By: #### C BC, CMP, 2532-0, 3084-1, 71720-3 #### [facility] ([id number]) [address], [address] [place] [address] Calcium [Mass/Vol] 8.7 mg/dL Normal 8.5-10.5 [facility] Comment on above: Performed By: #### C BC, CMP, 2532-0, 3084-1, 01446-1 #### [facility] ([id number]) [address], [address] [place] [address] Chloride [Moles/Vol] 102 mmol/L Normal 98-109 [facility] Comment on above: Performed By: #### Jeremiah BC, CMP, 2532-0, 3084-1, 67153-0 #### [facility] ([id number]) [address] [address] [place] [address] CO2 [Moles/Vol] 25 mmol/L Normal 22-32 [facility] Comment on above: Performed By: #### Jeremiah BC, CMP, 2532-0, 3084-1, 93059-2 #### [facility] ([id number]) [address] [address] [place] [address] Creatinine [Mass/Vol] 0.70 mg/dL Normal 0.40-1.00 [facility] Comment on above: Result Comment: METH OD TRACEABLE TO IDMS STANDARD Performed By: #### C BC, CMP, 2532-0, 3084-1, 18510-8 #### [facility] ([id number]) [address], [address] [place] [address] eGFR (CKD-EPI) NON-RACE DEPENDENT >90 Normal >59 [facility] Comment on above: Result Comment: Reported eGFR is based on the CKD-EPI 2020 equation that does not use a race coefficient. Performed By: #### C BC, CMP, 2532-0, 3084-1, 08098-5 #### [facility] ([id number]) [address] [place] [address] Glucose [Mass/Vol] 100 mg/dL High 65-99 [facility] Comment on above: Performed By: #### C BC, CMP, 2532-0, 3084-1, 87847-5 #### [facility] ([id number]) [address], [address] [place] [address] Potassium [Moles/Vol] 4.1 mmol/L Normal 3.5-5.0 [facility] Comment on above: Performed By: #### C BC, CMP, 2532-0, 3084-1, 34585-0 #### [facility] ([id number]) [address], [address] [place] [address] Protein [Mass/Vol] 5.8 g/dL Low 6.0-8.0 [facility] Comment on above: Performed By: #### C BC, CMP, 2532-0, 3084-1, 10280-2 #### [facility] ([id number]) [address], [address] [place] [address] Sodium [Moles/Vol] 138 mmol/L Normal 134-146 [facility] Comment on above: Performed By: #### C BC, CMP, 2532-0, 3084-1, 90989-3 #### [facility] ([id number]) [address], [address] [place] [address] Urea nitrogen [Mass/Vol] 17 mg/dL Normal 5-23 [facility] Comment on above: Performed By: #### C BC, CMP, 2532-0, 3084-1, 02065-2 #### [facility] ([id number]) [address], [address] [place] [address] COMPLETE BLOOD COUNTon 09-03 Erythrocyte distribution width (RBC) [Ratio] 14.8 % Normal 11.5-15.0 [facility] Comment on above: Performed By: #### C SENIOR ELECTRICAL ENGINEER #### [facility] ([id number]) [address] [place] [address] Hematocrit (Bld) [Volume fraction] 24.9 % Low 35-47 [facility] Comment on above: Performed By: #### C SENIOR ELECTRICAL ENGINEER #### [facility] ([id number]) [address] [place] [address] Hemoglobin (Bld) [Mass/Vol] 8.0 g/dL Low 11.7-15.5 [facility] Comment on above: Performed By: #### C SENIOR ELECTRICAL ENGINEER #### [facility] ([id number]) [address] [place] [address] MCH (RBC) [Entitic mass] 26.4 pg Low 27-34 [facility] Comment on above: Performed By: #### C SENIOR ELECTRICAL ENGINEER #### [facility] ([id number]) [address] [place] [address] MCHC (RBC) [Mass/Vol] 32.3 g/dL Normal 32-36 [facility] Comment on above: Performed By: #### C SENIOR ELECTRICAL ENGINEER #### [facility] ([address] [place] [address]) [address] [place] [address] MCV (RBC) [Entitic vol] 82 fL Normal 80-100 [facility] Comment on above: Performed By: #### C SENIOR ELECTRICAL ENGINEER #### [facility] ([id number]) [address] [place] [address] Platelet mean volume (Bld) [Entitic vol] 7.1 fL Normal 7-12 [facility] Comment on above: Performed By: #### C SENIOR ELECTRICAL ENGINEER #### [facility] ([id number]) [address] [place] [address] Platelets (Bld) [#/Vol] 389 10*3/uL Normal 150-450 [facility] Comment on above: Performed By: #### C SENIOR ELECTRICAL ENGINEER #### [facility] ([id number]) [address] [place] [address] RBC COUNT 3.05 X10E12/L Low 3.80-5.20 [facility] Comment on above: Performed By: #### C SENIOR ELECTRICAL ENGINEER #### [facility] ([id number]) [address] [place] [address] WBC (Bld) [#/Vol] 13.0 10*3/uL High 4.0-11.0 [facility] Comment on above: Performed By: #### C SENIOR ELECTRICAL ENGINEER #### [facility] ([id number]) [address] [place] [address] COMPREHENSIVE METABOLIC PANE Ez 09-03-2023 Albumin [Mass/Vol] 3.0 g/dL Low 3.2-5.3 [facility] Comment on above: Performed By: #### C SENIOR ELECTRICAL ENGINEER #### [facility] ([id number]) [address] [place] [address] ALP [Catalytic activity/Vol] 79 U/L Normal 39-130 [facility] Comment on above: Performed By: #### C SENIOR ELECTRICAL ENGINEER #### [facility] ([id number]) [address] [place] [address] ALT [Catalytic activity/Vol] 7 U/L Normal 0-31 [facility] Comment on above: Performed By: #### C SENIOR ELECTRICAL ENGINEER #### [facility] ([id number]) [address] [place] [address] Anion gap [Moles/Vol] 7 mmol/L Normal 5-15 [facility] Comment on above: Performed By: #### C SENIOR ELECTRICAL ENGINEER #### [facility] ([id number]) [address] [place] [address] AST [Catalytic activity/Vol] 10 U/L Normal 0-41 [facility] Comment on above: Performed By: #### C SENIOR ELECTRICAL ENGINEER #### [facility] ([id number]) [address] [place] [address] Bilirubin [Mass/Vol] 0.2 mg/dL Low 0.3-1.2 [facility] Comment on above: Performed By: #### C SENIOR ELECTRICAL ENGINEER #### [facility] ([id number]) [address] [place] [address] Calcium [Mass/Vol] 8.3 mg/dL Low 8.5-10.5 [facility] Comment on above: Performed By: #### C SENIOR ELECTRICAL ENGINEER #### [facility] ([id number]) [address] [place] [address] Chloride [Moles/Vol] 105 mmol/L Normal 98-109 [facility] Comment on above: Performed By: #### C SENIOR ELECTRICAL ENGINEER #### [facility] ([id number]) [address] [place] [address] CO2 [Moles/Vol] 24 mmol/L Normal 22-32 [facility] Comment on above: Performed By: #### C SENIOR ELECTRICAL ENGINEER #### [facility] ([id number]) [address] [place] [address] Creatinine [Mass/Vol] 0.54 mg/dL Normal 0.40-1.00 [facility] Comment on above: Result Comment: METH OD TRACEABLE TO IDMS STANDARD Performed By: #### C SENIOR ELECTRICAL ENGINEER #### [facility] ([id number]) [address] [place] [address] eGFR (CKD-EPI) NON-RACE DEPENDENT >90 Normal >59 [facility] Comment on above: Result Comment: Reported eGFR is based on the CKD-EPI 2020 equation that does not use a race coefficient. Performed By: #### C SENIOR ELECTRICAL ENGINEER #### [facility] ([id number]) [address] [place] [address] Glucose [Mass/Vol] 99 mg/dL Normal 65-99 [facility] Comment on above: Performed By: #### C SENIOR ELECTRICAL ENGINEER #### [facility] ([id number]) [address] [place] [address] Potassium [Moles/Vol] 4.3 mmol/L Normal 3.5-5.0 [facility] Comment on above: Performed By: #### C SENIOR ELECTRICAL ENGINEER #### [facility] ([id number]) [address] [place] [address] Protein [Mass/Vol] 5.7 g/dL Low 6.0-8.0 [facility] Comment on above: Performed By: #### C SENIOR ELECTRICAL ENGINEER #### [facility] ([id number]) [address] [place] [address] Sodium [Moles/Vol] 136 mmol/L Normal 134-146 [facility] Comment on above: Performed By: #### C SENIOR ELECTRICAL ENGINEER #### [facility] ([id number]) [address] [place] [address] Urea nitrogen [Mass/Vol] 12 mg/dL Normal 5-23 [facility] Comment on above: Performed By: #### C SENIOR ELECTRICAL ENGINEER #### [facility] ([id number]) [address] [place] [address] COMPLETE BLOOD COUNTon 09-02 Erythrocyte distribution width (RBC) [Ratio] 14.7 % Normal 11.5-15.0 [facility] Comment on above: Performed By: #### C SENIOR ELECTRICAL ENGINEER #### [facility] ([id number]) [address] [place] [address] Hematocrit (Bld) [Volume fraction] 23.8 % Low 35-47 [facility] Comment on above: Performed By: #### C SENIOR ELECTRICAL ENGINEER #### [facility] ([id number]) [address] [place] [address] Hemoglobin (Bld) [Mass/Vol] 7.7 g/dL Low 11.7-15.5 [facility] Comment on above: Performed By: #### C SENIOR ELECTRICAL ENGINEER #### [facility] ([id number]) [address] [place] [address] MCH (RBC) [Entitic mass] 26.0 pg Low 27-34 [facility] Comment on above: Performed By: #### C SENIOR ELECTRICAL ENGINEER #### [facility] ([id number]) [address] [place] [address] MCHC (RBC) [Mass/Vol] 32.3 g/dL Normal 32-36 [facility] Comment on above: Performed By: #### C SENIOR ELECTRICAL ENGINEER #### [facility] ([id number]) [address] [place] [address] MCV (RBC) [Entitic vol] 81 fL Normal 80-100 [facility] Comment on above: Performed By: #### C SENIOR ELECTRICAL ENGINEER #### [facility] ([id number]) [address] [place] [address] Platelet mean volume (Bld) [Entitic vol] 7.2 fL Normal 7-12 [facility] Comment on above: Performed By: #### C SENIOR ELECTRICAL ENGINEER #### [facility] ([id number]) [address] [place] [address] Platelets (Bld) [#/Vol] 380 10*3/uL Normal 150-450 [facility] Comment on above: Performed By: #### C SENIOR ELECTRICAL ENGINEER #### [facility] ([id number]) [address] [place] [address] RBC COUNT 2.96 X10E12/L Low 3.80-5.20 [facility] Comment on above: Performed By: #### C SENIOR ELECTRICAL ENGINEER #### [facility] ([id number]) [address] [place] [address] WBC (Bld) [#/Vol] 12.4 10*3/uL High 4.0-11.0 [facility] Comment on above: Performed By: #### C SENIOR ELECTRICAL ENGINEER #### [facility] ([id number]) [address] [facility] [place] [address] COMPREHENSIVE METABOLIC PANE Ez 09-02-2023 Albumin [Mass/Vol] 2.8 g/dL Low 3.2-5.3 [facility] Comment on above: Performed By: #### C SENIOR ELECTRICAL ENGINEER #### [facility] ([id number]) [address] [facility] [place] [address] ALP [Catalytic activity/Vol] 81 U/L Normal 39-130 [facility] Comment on above: Performed By: #### C SENIOR ELECTRICAL ENGINEER #### [facility] ([id number]) [address] [facility] [place] [address] ALT [Catalytic activity/Vol] 8 U/L Normal 0-31 [facility] Comment on above: Performed By: #### C SENIOR ELECTRICAL ENGINEER #### [facility] ([id number]) [address] [place] [address] Anion gap [Moles/Vol] 6 mmol/L Normal 5-15 [facility] Comment on above: Performed By: #### C SENIOR ELECTRICAL ENGINEER #### [facility] ([id number]) [address] [place] [address] AST [Catalytic activity/Vol] 17 U/L Normal 0-41 [facility] Comment on above: Performed By: #### C SENIOR ELECTRICAL ENGINEER #### [facility] ([id number]) [address] [place] [address] Bilirubin [Mass/Vol] 0.2 mg/dL Low 0.3-1.2 [facility] Comment on above: Performed By: #### C SENIOR ELECTRICAL ENGINEER #### [facility] ([id number]) [address] [facility] [place] [place] [address] Calcium [Mass/Vol] 7.3 mg/dL Low 8.5-10.5 [facility] Comment on above: Performed By: #### C SENIOR ELECTRICAL ENGINEER #### [facility] ([id number]) [address] [place] [address] Chloride [Moles/Vol] 105 mmol/L Normal 98-109 [facility] Comment on above: Performed By: #### C SENIOR ELECTRICAL ENGINEER #### [facility] ([id number]) [address] [place] [address] CO2 [Moles/Vol] 25 mmol/L Normal 22-32 [facility] Comment on above: Performed By: #### C SENIOR ELECTRICAL ENGINEER #### [facility] ([id number]) [address] [place] [address] Creatinine [Mass/Vol] 0.67 mg/dL Normal 0.40-1.00 [facility] Comment on above: Result Comment: METH OD TRACEABLE TO IDMS STANDARD Performed By: #### C SENIOR ELECTRICAL ENGINEER #### [facility] ([id number]) [address] [place] [address] eGFR (CKD-EPI) NON-RACE DEPENDENT >90 Normal >59 [facility] Comment on above: Result Comment: Reported eGFR is based on the CKD-EPI 2020 equation that does not use a race coefficient. Performed By: #### C SENIOR ELECTRICAL ENGINEER #### [facility] ([id number]) [address] [place] [address] Glucose [Mass/Vol] 88 mg/dL Normal 65-99 [facility] Comment on above: Performed By: #### C SENIOR ELECTRICAL ENGINEER #### [facility] ([id number]) [address] [place] [address] Potassium [Moles/Vol] 4.7 mmol/L Normal 3.5-5.0 [facility] Comment on above: Performed By: #### C SENIOR ELECTRICAL ENGINEER #### [facility] ([id number]) [address] [place] [address] Protein [Mass/Vol] 5.4 g/dL Low 6.0-8.0 [facility] Comment on above: Performed By: #### C SENIOR ELECTRICAL ENGINEER #### [facility] ([id number]) [address] [place] [address] Sodium [Moles/Vol] 136 mmol/L Normal 134-146 [facility] Comment on above: Performed By: #### C SENIOR ELECTRICAL ENGINEER #### [facility] ([id number]) [address] [place] [address] Urea nitrogen [Mass/Vol] 14 mg/dL Normal 5-23 [facility] Comment on above: Performed By: #### C SENIOR ELECTRICAL ENGINEER #### [facility] ([id number]) [address] [place] [address] ANTI CARDIOLIPIN AB IGG IGA IGMon 09-01-2023 TAMIKO IgA <2.0 Normal 0-19.9 [facility] Comment on above: Performed By: #### C SENIOR ELECTRICAL ENGINEER #### [facility] ([id number]) [address] [place] [address] TAMIKO IgG <1.6 Normal 0-19.9 [facility] Comment on above: Performed By: #### C SENIOR ELECTRICAL ENGINEER #### [facility] ([id number]) [address] [place] [address] TAMIKO IgM <1.5 Normal 0-19.9 [facility] Comment on above: Performed By: #### C SENIOR ELECTRICAL ENGINEER #### [facility] ([id number]) [address] [place] [address] BETA-2 GP1 AB PANELon 2023 BETA-2 GP1 IgA <2.0 Normal 0.0-19.9 [facility] Comment on above: Performed By: #### C SENIOR ELECTRICAL ENGINEER #### [facility] ([id number]) [address] [place] [address] BETA-2 GP1 IgG <1.4 Normal 0.0-19.9 [facility] Comment on above: Performed By: #### C SENIOR ELECTRICAL ENGINEER #### [facility] ([id number]) [address] [place] [address] BETA-2 GP1 IgM <1.5 Normal 0.0-19.9 [facility] Comment on above: Performed By: #### C SENIOR ELECTRICAL ENGINEER #### [facility] ([id number]) [address] [place] [address] COMPLETE BLOOD COUNTon 09-01 Erythrocyte distribution width (RBC) [Ratio] 14.5 % Normal 11.5-15.0 [facility] Comment on above: Performed By: #### C BC, CMP #### [facility] ([id number]) [address] [place] [address] Hematocrit (Bld) [Volume fraction] 26.8 % Low 35-47 [facility] Comment on above: Performed By: #### C BC, CMP #### [facility] ([id number]) [address], [address] [place] [address] Hemoglobin (Bld) [Mass/Vol] 8.7 g/dL Low 11.7-15.5 [facility] Comment on above: Performed By: #### C BC, CMP #### [facility] ([id number]) [address], [address] [place] [address] MCH (RBC) [Entitic mass] 26.0 pg Low 27-34 [facility] Comment on above: Performed By: #### C BC, CMP #### [facility] ([id number]) [address], [address] [place] [address] MCHC (RBC) [Mass/Vol] 32.5 g/dL Normal 32-36 [facility] Comment on above: Performed By: #### C BC, CMP #### [facility] ([id number]) [address], [address] [place] [address] MCV (RBC) [Entitic vol] 80 fL Normal 80-100 [facility] Comment on above: Performed By: #### C BC, CMP #### [facility] ([id number]) [address], [address] [place] [address] Platelet mean volume (Bld) [Entitic vol] 7.6 fL Normal 7-12 [facility] Comment on above: Performed By: #### C BC, CMP #### [facility] ([id number]) [address], [address] [place] [address] Platelets (Bld) [#/Vol] 412 10*3/uL Normal 150-450 [facility] Comment on above: Performed By: #### C DHARA, CMP #### [facility] ([id number]) [address], [address] [place] [address] RBC COUNT 3.35 X10E12/L Low 3.80-5.20 [facility] Comment on above: Performed By: #### C BC, CMP #### [facility] ([id number]) [address] [address] [place] [address] WBC (Bld) [#/Vol] 16.7 10*3/uL High 4.0-11.0 [facility] Comment on above: Performed By: #### C BC, CMP #### [facility] ([id number]) [address], [address] [place] [address] COMPREHENSIVE METABOLIC PANE Ez 09-01-2023 Albumin [Mass/Vol] 3.0 g/dL Low 3.2-5.3 [facility] Comment on above: Performed By: #### C SENIOR ELECTRICAL ENGINEER #### [facility] ([id number]) [address] [place] [address] ALP [Catalytic activity/Vol] 91 U/L Normal 39-130 [facility] Comment on above: Performed By: #### C SENIOR ELECTRICAL ENGINEER #### [facility] ([id number]) [address] [facility] [place] [address] ALT [Catalytic activity/Vol] 8 U/L Normal 0-31 [facility] Comment on above: Performed By: #### C SENIOR ELECTRICAL ENGINEER #### [facility] ([id number]) [address] [facility] [place] [address] Anion gap [Moles/Vol] 9 mmol/L Normal 5-15 [facility] Comment on above: Performed By: #### C SENIOR ELECTRICAL ENGINEER #### [facility] ([id number]) [address] [place] [address] AST [Catalytic activity/Vol] 13 U/L Normal 0-41 [facility] Comment on above: Performed By: #### C SENIOR ELECTRICAL ENGINEER #### [facility] ([id number]) [address] [place] [address] Bilirubin [Mass/Vol] 0.2 mg/dL Low 0.3-1.2 [facility] Comment on above: Performed By: #### C SENIOR ELECTRICAL ENGINEER #### [facility] ([id number]) [address] [place] [address] Calcium [Mass/Vol] 7.0 mg/dL Low 8.5-10.5 [facility] Comment on above: Performed By: #### C SENIOR ELECTRICAL ENGINEER #### [facility] ([id number]) [address] [place] [address] Chloride [Moles/Vol] 100 mmol/L Normal 98-109 [facility] Comment on above: Performed By: #### C SENIOR ELECTRICAL ENGINEER #### [facility] ([id number]) [address] [place] [address] CO2 [Moles/Vol] 23 mmol/L Normal 22-32 [facility] Comment on above: Performed By: #### C SENIOR ELECTRICAL ENGINEER #### [facility] ([id number]) [address] [place] [address] Creatinine [Mass/Vol] 0.64 mg/dL Normal 0.40-1.00 [facility] Comment on above: Result Comment: METH OD TRACEABLE TO IDMS STANDARD Performed By: #### C SENIOR ELECTRICAL ENGINEER #### [facility] ([id number]) [address] [place] [address] eGFR (CKD-EPI) NON-RACE DEPENDENT >90 Normal >59 [facility] Comment on above: Result Comment: Reported eGFR is based on the CKD-EPI 2020 equation that does not use a race coefficient. Performed By: #### C SENIOR ELECTRICAL ENGINEER #### [facility] ([id number]) [address] [place] [address] Glucose [Mass/Vol] 116 mg/dL High 65-99 [facility] Comment on above: Performed By: #### C SENIOR ELECTRICAL ENGINEER #### [facility] ([id number]) [address] [place] [address] Potassium [Moles/Vol] 4.2 mmol/L Normal 3.5-5.0 [facility] Comment on above: Performed By: #### C SENIOR ELECTRICAL ENGINEER #### [facility] ([id number]) [address] [place] [address] Protein [Mass/Vol] 5.6 g/dL Low 6.0-8.0 [facility] Comment on above: Performed By: #### C SENIOR ELECTRICAL ENGINEER #### [facility] ([id number]) [address] [place] [address] Sodium [Moles/Vol] 132 mmol/L Low 134-146 [facility] Comment on above: Performed By: #### C SENIOR ELECTRICAL ENGINEER #### [facility] ([id number]) [address] [place] [address] Urea nitrogen [Mass/Vol] 9 mg/dL Normal 5-23 [facility] Comment on above: Performed By: #### C SENIOR ELECTRICAL ENGINEER #### [facility] ([id number]) [place] [address] MR BRAIN W WO CONTon 024 MR [...] Mckeon MD on 09/01/2023 1:54 PM Normal [facility] MR MRA AND MRV HEAD W WO CON Ton 09-01-2023 MR MRA AND MRV HEAD W WO CONT MR MRA AND MRV HEAD W WO CONT MR MRA AND MRV HEAD W WO CONT CLINICAL INDICATION:eclamptic seizure. Neurologic abnormality COMPARISON: XX TECHNIQUE: Routine noncontrast, yslk-ty-qzjyen, [place] MRA was performed. Maximum intensity projection volumetric reformatted images were generated. Routine noncontrast, yiog-ez-mzficb, MR venogram was performed. Maximum intensity projection [...] stenosis or acute occlusion of the major [place] arterial structures. 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 MRV: No dural venous sinus thrombosis. Finalized by Yovany Mckeon MD on 09/01/2023 1:46 PM Normal [facility] dRVVT/dRVVT.excess phospholi pid Coag (PPP) [Ratio]on 09-01-2023 DILUTE YOSEF'S VIPER VENOM Negative Normal [facility] Comment on above: Performed By: #### C SENIOR ELECTRICAL ENGINEER #### [facility] ([id number]) [address] [place] [address] COMPLETE BLOOD COUNTon 08-31 Erythrocyte distribution width (RBC) [Ratio] 14.8 % Normal 11.5-15.0 [facility] Comment on above: Performed By: #### C DHARA CMP, 2532-0, 3084-1, 61585-2 #### [facility] ([id number]) [address], [address] [place] [address] Hematocrit (Bld) [Volume fraction] 28.3 % Low 35-47 [facility] Comment on above: Performed By: #### C DHARA CMP, 2532-0, 3084-1, 34779-8 #### [facility] ([id number]) [address], [address] [place] [address] Hemoglobin (Bld) [Mass/Vol] 9.7 g/dL Low 11.7-15.5 [facility] Comment on above: Performed By: #### C DHARA CMP, 2532-0, 3084-1, 19041-4 #### [facility] ([id number]) [address], [address] [place] [address] MCH (RBC) [Entitic mass] 27.1 pg Normal 27-34 [facility] Comment on above: Performed By: #### C BC CMP, 2532-0, 3084-1, 66336-4 #### [facility] ([id number]) [address] [address] [place] [address] MCHC (RBC) [Mass/Vol] 34.2 g/dL Normal 32-36 [facility] Comment on above: Performed By: #### C BC, CMP, 2532-0, 3084-1, 47801-5 #### [facility] ([id number]) [address] [address] MCV (RBC) [Entitic vol] 79 fL Low 80-100 [facility] Comment on above: Performed By: #### C BC, CMP, 2532-0, 3084-1, 99780-2 #### [facility] ([id number]) [address] [address] Platelet mean volume (Bld) [Entitic vol] 7.3 fL Normal 7-12 [facility] Comment on above: Performed By: #### C BC, CMP, 2532-0, 3084-1, 75769-1 #### [facility] ([id number]) [address] [address] Platelets (Bld) [#/Vol] 374 10*3/uL Normal 150-450 [facility] Comment on above: Performed By: #### C BC, CMP, 2532-0, 3084-1, 87206-4 #### [facility] ([id number]) [address] [address] [place] [address] RBC COUNT 3.58 X10E12/L Low 3.80-5.20 [facility] Comment on above: Performed By: #### C BC, CMP, 2532-0, 3084-1, 47213-5 #### [facility] ([id number]) [address] [address] [place] [address] WBC (Bld) [#/Vol] 16.2 10*3/uL High 4.0-11.0 [facility] Comment on above: Performed By: #### C BC, CMP, 2532-0, 3084-1, 93944-7 #### [facility] ([id number]) [address] [place] [address] COMPREHENSIVE METABOLIC PANE Ez 08-31-2023 Albumin [Mass/Vol] 3.1 g/dL Low 3.2-5.3 [facility] Comment on above: Performed By: #### C BC, CMP, 2532-0, 3084-1, 95773-5 #### [facility] ([id number]) [address], [address] [place] [address] ALP [Catalytic activity/Vol] 105 U/L Normal 39-130 [facility] Comment on above: Performed By: #### C BC, CMP, 2532-0, 3084-1, 88778-2 #### [facility] ([id number]) [address], [address] [place] [address] ALT [Catalytic activity/Vol] 5 U/L Normal 0-31 [facility] Comment on above: Performed By: #### C BC, CMP, 2532-0, 3084-1, 31008-4 #### [facility] ([id number]) [address], [address] [place] [address] Anion gap [Moles/Vol] 10 mmol/L Normal 5-15 [facility] Comment on above: Performed By: #### C BC, CMP, 2532-0, 3084-1, 91125-0 #### [facility] ([id number]) [address], [address] [place] [address] AST [Catalytic activity/Vol] 8 U/L Normal 0-41 [facility] Comment on above: Performed By: #### C BC, CMP, 2532-0, 3084-1, 18596-1 #### [facility] ([id number]) [address], [address] [place] [address] Bilirubin [Mass/Vol] 0.2 mg/dL Low 0.3-1.2 [facility] Comment on above: Performed By: #### C BC, CMP, 2532-0, 3084-1, 51406-2 #### [facility] ([id number]) [address], [address] [place] [address] Calcium [Mass/Vol] 7.9 mg/dL Low 8.5-10.5 [facility] Comment on above: Performed By: #### Jeremiah BC, CMP, 2532-0, 3084-1, 77898-9 #### [facility] ([id number]) [address] [facility] [address] [place] [address] Chloride [Moles/Vol] 105 mmol/L Normal 98-109 [facility] Comment on above: Performed By: #### Jeremiah BC, CMP, 2532-0, 3084-1, 69095-3 #### [facility] ([id number]) [address] [facility] [place] [address] CO2 [Moles/Vol] 20 mmol/L Low 22-32 [facility] Comment on above: Performed By: #### Jeremiah BC, CMP, 2532-0, 3084-1, 02957-7 #### [facility] ([id number]) [address] [address] [address] [place] [address] Creatinine [Mass/Vol] 0.65 mg/dL Normal 0.40-1.00 [facility] Comment on above: Result Comment: METH OD TRACEABLE TO IDMS STANDARD Performed By: #### C BC, CMP, 2532-0, 3084-1, 70335-0 #### [facility] ([id number]) [address], [address] [place] [address] eGFR (CKD-EPI) NON-RACE DEPENDENT >90 Normal >59 [facility] Comment on above: Result Comment: Reported eGFR is based on the CKD-EPI 2020 equation that does not use a race coefficient. Performed By: #### C CARLOTA JULES, 2532-0, 3084-1, 82312-2 #### [facility] ([id number]) [address], [address] [place] [address] Glucose [Mass/Vol] 140 mg/dL High 65-99 [facility] Comment on above: Performed By: #### Jeremiah JULES CMP, 2532-0, 3084-1, 97163-0 #### [facility] ([id number]) [address], [address] [place] [address] Potassium [Moles/Vol] 4.4 mmol/L Normal 3.5-5.0 [facility] Comment on above: Performed By: #### Jeremiah JULES CMP, 2532-0, 3084-1, 74597-1 #### [facility] ([id number]) [address], [address] [place] [address] Protein [Mass/Vol] 5.9 g/dL Low 6.0-8.0 [facility] Comment on above: Performed By: #### Jeremiah JULES CMP, 2532-0, 3084-1, 15828-5 #### [facility] ([id number]) [address], [address] [place] [address] Sodium [Moles/Vol] 135 mmol/L Normal 134-146 [facility] Comment on above: Performed By: #### Jeremiah JULES CMP, 2532-0, 3084-1, 20777-5 #### [facility] ([id number]) [address], [address] [place] [address] Urea nitrogen [Mass/Vol] 9 mg/dL Normal 5-23 [facility] Comment on above: Performed By: #### Jeremiah JULES CMP, 2532-0, 3084-1, 43785-5 #### [facility] ([id number]) [address] [address] [place] [address] CORD ARTERIAL GASon 08-31-19 24 MARIOLA'S TEST Normal [facility] Comment on above: Performed By: #### C SENIOR ELECTRICAL ENGINEER #### [facility] ([id number]) [address] [place] [address] BASE,DEFICIT 6.0 MMOL/L High 0.0-2.0 [facility] Comment on above: Performed By: #### C SENIOR ELECTRICAL ENGINEER #### [facility] ([id number]) [address] [place] [address] HCO3 (Bld) [Moles/Vol] 24.5 mmol/L Normal 22-26 [facility] Comment on above: Performed By: #### C SENIOR ELECTRICAL ENGINEER #### [facility] ([id number]) [address] [place] [address] Oxygen (Bld) [Partial pressure] 26 mm[Hg] High 12-24 [facility] Comment on above: Performed By: #### C SENIOR ELECTRICAL ENGINEER #### [facility] ([id number]) [address] [place] [address] Oxygen saturation in Blood 32.0 % Normal 7.1-39.5 [facility] Comment on above: Performed By: #### C SENIOR ELECTRICAL ENGINEER #### [facility] ([id number]) [address] [place] [address] OXYGEN SOURCE RoomAir Normal [facility] Comment on above: Performed By: #### C SENIOR ELECTRICAL ENGINEER #### [facility] ([id number]) [address] [place] [address] PCO2 66.3 MMHG High 40.8-57.6 [facility] Comment on above: Performed By: #### C SENIOR ELECTRICAL ENGINEER #### [facility] ([id number]) [address] [place] [address] pH (Bld) 7.176 [pH] Low 7.24-7.30 [facility] Comment on above: Performed By: #### C SENIOR ELECTRICAL ENGINEER #### [facility] ([id number]) [address] [place] [address] SAMPLE SITE [employer] Normal [facility] Comment on above: Performed By: #### C SENIOR ELECTRICAL ENGINEER #### [facility] ([id number]) [address] [place] [address] SAMPLE TYPE UMBILICALCORD Normal [facility] Comment on above: Performed By: #### C SENIOR ELECTRICAL ENGINEER #### [facility] ([id number]) [address] [place] [address] CORD VENOUS GASon 08-31-2023 MARIOLA'S TEST Normal [facility] Comment on above: Performed By: #### C RDV #### [facility] ([id number]) [address] [place] [address] BASE,DEFICIT 7.0 MMOL/L High 0.0-2.0 [facility] Comment on above: Performed By: #### C RDV #### [facility] ([id number]) [address] [place] [address] HCO3 (Bld) [Moles/Vol] 23.0 mmol/L Normal 20.0-24.0 [facility] Comment on above: Performed By: #### C RDV #### [facility] ([id number]) [address] [place] [address] Oxygen (Bld) [Partial pressure] 54 mm[Hg] High 22-35 [facility] Comment on above: Performed By: #### C RDV #### [facility] ([id number]) [address] [place] [address] Oxygen saturation in Blood 78.0 % High 32.5-66.3 [facility] Comment on above: Performed By: #### C RDV #### [facility] ([id number]) [address] [place] [address] OXYGEN SOURCE RoomAir [facility] Comment on above: Performed By: #### C RDV #### [facility] ([id number]) [address] [place] [address] PCO2 60.0 MMHG Critically high 32.6-43.8 [facility] Comment on above: Performed By: #### C RDV #### [facility] ([id number]) [address] [place] [address] pH (Bld) 7.191 [pH] Low 7.25-7.37 [facility] Comment on above: Performed By: #### C RDV #### [facility] ([id number]) [address] [place] [address] SAMPLE SITE VenCord [facility] Comment on above: Performed By: #### C RDV #### [facility] ([id number]) [address] [place] [address] SAMPLE TYPE UMBILICALCORD [facility] Comment on above: Performed By: #### C RDV #### [facility] ([id number]) [address] [place] [address] DRUG SCREEN, URINEon 024 AMPHETAMINE/METHAMP Negative Normal NEG [facility] Comment on above: Result Comment: AMPH /METH screening cut off = 1000 ng/mL Performed By: #### D GANT #### [facility] ([id number]) [address] [place] [address] BARBITURATES Negative Normal NEG [facility] Comment on above: Result Comment: Meaghan iturates screening cut off value = 200 ng/mL Performed By: #### D GANT #### [facility] ([id number]) [address], [address] [place] [address] BENZODIAZEPINES Negative Normal NEG [facility] Comment on above: Result Comment: Steven odiazepines screening cut off value = 200 ng/mL Performed By: #### D GANT #### [facility] ([id number]) [address], [address] [place] [address] CANNABINOIDS Positive Abnormal NEG [facility] Comment on above: Result Comment: Conf irmation available upon request. Cannabinoids/THC screening cut off value = 50 ng/mL Performed By: #### D GANT #### [facility] ([id number]) [address] [place] [address] COCAINE METABOLITE Negative Normal NEG [facility] Comment on above: Result Comment: Coca ine screening cut off value = 300 ng/mL Performed By: #### D GANT #### [facility] ([id number]) [address], [address] [place] [address] ECSTASY Negative Normal NEG [facility] Comment on above: Result Comment: Ecst asy screening cut off value = 500 ng/mL This report is intended for use in clinical monitoring or management of patients. Performed By: #### D GANT #### [facility] ([id number]) [address] [place] [address] METHADONE Negative Normal NEG [facility] Comment on above: Result Comment: Meth adone screening cut off value = 300 ng/mL. Performed By: #### D GANT #### [facility] ([id number]) [address], [address] [place] [address] OPIATES Negative Normal NEG [facility] Comment on above: Result Comment: Opia benjamin screening cut off value = 300 ng/mL NOTE: This test is used for the detection of codeine, hydrocodone (>1000 ng/mL), morphine and hydromorphone (>900 ng/mL) in urine. Performed By: #### D GANT #### [facility] ([id number]) [address], [address] [place] [address] OXYCODONE Negative Normal NEG [facility] Comment on above: Result Comment: Oxyc odone screening cut off value = 300 ng/mL NOTE: This test is used for the detection of oxycodone and oxymorphone in urine. Performed By: #### D GANT #### [facility] ([id number]) [address], [address] [place] [address] PHENCYCLIDINE Negative Normal NEG [facility] Comment on above: Result Comment: Phen cyclidine screening cut off value = 25 ng/mL Performed By: #### D GANT #### [facility] ([id number]) [address], [address] [place] [address] LDH [Catalytic activity/Vol] on 08-31-2023 LDH 122 U/L Normal 100-235 [facility] Comment on above: Performed By: #### C BC, CMP, 2532-0, 3084-1, 52634-1 #### [facility] ([id number]) [address], [address] [place] [address] PROTEIN CREAT RATIOon 2023 RANDOM URINE PROTEIN 70 mg/L Normal <120 [facility] Comment on above: Performed By: #### U PCR #### [facility] ([id number]) [address], [address] [place] [address] U/PRO/NUCLEAR FUELS RESEARCH ENGINEER RATIO CALC 0.34 High <0.2 [facility] Comment on above: Result Comment: Neph rotic Syndrome is associated with ratios >3.5 Performed By: #### U PCR #### [facility] ([id number]) [address] [place] [address] URINE CREATININE,RDM 20.84 mg/dL Normal [facility] Comment on above: Performed By: #### U PCR #### [facility] ([id number]) [address] [place] [address], [address] [place] [address] Surgical Pathologyon 024 Surgical Pathology Normal [facility] Comment on above: Result Comment: [facility] [address] [place] [address] Surgical Pathology Consultation Patient Name:ADRIÁN CLEMENTSOB:1990 (Age: 33)Gender:FTaken:4Reported:4Physician(s):Esperanza Molina M.D. ([phone])Copy To: Rec. #:[id number]: #[id number] Final Pathologic Diagnosis Placenta: Third trimester placenta (440 g with subchorionic fibrin plaque. Partially circummarginate membranes, otherwise unremarkable. Unremarkable three-vessel umbilical cord with eccentric insertion. Report Electronically Signed Out ao/4Aausten Ortiz MD Interpretation performed at [facility], [address] [place] [address], License number: [id number]. Clinical History Eclampsia. Gross Description Received in formalin labeled terry CLEMENTS : Single MEMBRANES: Placenta Sac Rupture (cm [...] Rolled membrane, two sections of cord B-D Gambling Dealer sections of placenta E Additional membrane roll (5,ss,R04-0930) . /09/13/2023O Specimen(s) Received Placenta Fee Codes(s): 1; 24480 T. pallidum IgG+IgM IA Ql (S )on 08-31-2023 Syphilis Total 0.2 AI Normal 0.0-0.8 [facility] Comment on above: Result Comment: NON REACTIVE No serologic evidence of infection to Treponema pallidum (syphilis). Repeat testing may be considered in patients with suspected acute or primary syphilis in 2 to 4 weeks. Performed By: #### C BC, CMP, 2532-0, 3084-1, 59397-4 #### [facility] ([id number]) [address] [place] [address], [address] [place] [address] URIC ACIDon 08-31-2023 Urate [Mass/Vol] 5.0 mg/dL Normal 2.6-7.2 [facility] Comment on above: Performed By: #### Jeremiah BC, CMP, 2532-0, 3084-1, 79733-9 #### [facility] ([id number]) [address] [facility] [place] [address] CBC panel Auto (Bld)on 03-17 Erythrocyte distribution width (RBC) [Ratio] 13.2 % Normal 11.5-15.0 [facility] Comment on above: Order Comment: Speci men Type: BLOOD SPECIMEN Ordering Facility: [facility] Address: [address] [id number] Performed By: #### 1 9123-9, 56100-4 #### [facility] CLIA [id number] [address] [facility] [facility] [place] [address] [facility] Hematocrit (Bld) [Volume fraction] 35.1 % Low 36.0-46.0 [facility] Comment on above: Order Comment: Speci men Type: BLOOD SPECIMEN Ordering Facility: [facility] Address: [address] [place] [address] Performed By: #### 1 9123-9, #### [facility] CLIA [id number] [address] [place] [address] [place] Hemoglobin (Bld) [Mass/Vol] 11.3 g/dL Low 11.5-15.5 [facility] Comment on above: Order Comment: Speci men Type: BLOOD SPECIMEN Ordering Facility: [facility] Address: [address] Performed By: #### 1 9123-9, #### [facility] CLIA [id number] [address] [place] [address] [place] MCH (RBC) [Entitic mass] 26.3 pg Normal 26.0-34.0 [facility] Comment on above: Order Comment: Speci men Type: BLOOD SPECIMEN Ordering Facility: [facility] Address: [address] Performed By: #### 1 9123-9, #### [facility] CLIA [id number] [address] [place] [address] [place] MCHC (RBC) [Mass/Vol] 32.2 g/dL Normal 30.5-36.0 [facility] Comment on above: Order Comment: Speci men Type: BLOOD SPECIMEN Ordering Facility: [facility] Address: [address] Performed By: #### 1 9123-9, #### [facility] CLIA [id number] [address] [place] [address] [place] MCV (RBC) [Entitic vol] 81.6 fL Normal 80.0-100.0 [facility] Comment on above: Order Comment: Speci men Type: BLOOD SPECIMEN Ordering Facility: [facility] Address: [address] Performed By: #### 1 9123-9, 84350-8 #### [facility] CLIA [id number] [address] [place] [address] [place] Nucleated RBC (Bld) [#/Vol] 10*3/uL Normal <0.01 [facility] Comment on above: Order Comment: Speci men Type: BLOOD SPECIMEN Ordering Facility: [facility] Address: [address] [place] [address] Performed By: #### 1 9123-9, 18599-7 #### [facility] CLIA [id number] [facility] [place] [address] [place] Platelet mean volume (Bld) [Entitic vol] 8.7 fL Low 9.0-12.7 [facility] Comment on above: Order Comment: Speci men Type: BLOOD SPECIMEN Ordering Facility: [facility] Address: [address] [place] [address] Performed By: #### 1 9123-9, 45299-8 #### [facility] CLIA [id number] [address] [place] [address] [place] Platelets (Bld) [#/Vol] 482 10*3/uL High 150-400 [facility] Comment on above: Order Comment: Speci men Type: BLOOD SPECIMEN Ordering Facility: [facility] Address: [address] [place], [place] [address] Performed By: #### 1 9123-9, 50545-7 #### [facility] CLIA [id number] [address] [place] [address] [place] RBC (Bld) [#/Vol] 4.30 10*6/uL Normal 3.90-5.20 [facility] Comment on above: Order Comment: Speci men Type: BLOOD SPECIMEN Ordering Facility: [facility] Address: [address] [place], [place] [address] Performed By: #### 1 9123-9, 55841-5 #### [facility] CLIA [id number] [id number] [address] [place] WBC (Bld) [#/Vol] 10.57 10*3/uL Normal 3.70-11.00 [facility] Comment on above: Order Comment: Speci men Type: BLOOD SPECIMEN Ordering Facility: [facility] Address: [address] [place] [address] Performed By: #### 1 9123-9, 81054-4 #### [facility] CLIA [id number] [address] [facility] [address] [place] CNDSon 03-17-2023 CNDS HNO ID: [id number] Author: Manoj Ramos MD Service: General Internal [...] your kidney infection. Please follow-up with your operating system programmer doctor regarding ongoing antibiotic recommendations in LABS [...] ORAL Tylen (more content not included)... Normal [facility] Magnesium SerPl-mCncon 03-17 Magnesium [Mass/Vol] 2.0 mg/dL Normal 1.7-2.3 [facility] Comment on above: Order Comment: Speci men Type: BLOOD SPECIMENOrdering Facility: [facility] Address: [address] [address] Performed By: #### 1 9123-9, 63312-1 ####[facility] [id number] [place] [address] [place] Renal function 2000 panelon 03-17-2023 Albumin [Mass/Vol] 3.7 g/dL Low 3.9-4.9 [facility] Comment on above: Order Comment: Speci men Type: BLOOD SPECIMENOrdering Facility: [facility] Address: [address] [id number] Performed By: #### 1 9123-9, 00511-1 ####[facility] [id number] [place] [address] [place] Anion gap [Moles/Vol] 15 mmol/L Normal 9-18 [facility] Comment on above: Order Comment: Speci men Type: BLOOD SPECIMENOrdering Facility: [facility] Address: [address] Performed By: #### 1 9123-9, 90648-7 ####[facility] [id number] [place] [address] [place] Calcium [Mass/Vol] 9.6 mg/dL Normal 8.5-10.2 [facility] Comment on above: Order Comment: Speci men Type: BLOOD SPECIMENOrdering Facility: [facility] Address: [address] Performed By: #### 1 9123-9, 59486-3 ####[facility] [id number] [place] [address] [place] Chloride [Moles/Vol] 99 mmol/L Normal 97-105 [facility] Comment on above: Order Comment: Speci men Type: BLOOD SPECIMENOrdering Facility: [facility] Address: [address] Performed By: #### 1 [address], 19655-8 ####[facility] [id number] [place] [address] [place] CO2 [Moles/Vol] 20 mmol/L Low 22-30 [facility] Comment on above: Order Comment: Speci men Type: BLOOD SPECIMENOrdering Facility: [facility] Address: [address] Performed By: #### 1 9123-9, 18248-9 ####[facility] [id number] [place] [address] [place] Creatinine [Mass/Vol] 0.67 mg/dL Normal 0.58-0.96 [facility] Comment on above: Order Comment: Speci men Type: BLOOD SPECIMENOrdering Facility: [facility] Address: [address] Performed By: #### 1 9123-9, 20892-7 ####[facility] [id number] [address] [place] ESTIMATED GLOMERULAR FILTRATION RATE 121 mL/min/1.73m??? Normal >=60 [facility] Comment on above: Order Comment: Tee francisco Type: BLOOD SPECIMENOrdering Facility: [facility] Address: [address] [place] [address] Result Comment: Marisa mated Glomerular Filtration Rate [...] actual GFR. Performed By: #### 1 9123-9, 46681-3 ####[facility] [id number] [address] [place] Glucose [Mass/Vol] 130 mg/dL High 74-99 [facility] Comment on above: Order Comment: Tee francisco Type: BLOOD SPECIMENOrdering Facility: [facility] Address: [address] [place] [address] Result Comment: The [place] Diabetes Association (ADA) provides guidance for cutoff [...] Standards of Medical Care in Diabetes 2016, [employer]. Diabetes Care. 2016.39(Suppl 1). Performed By: #### 1 9123-9, 88323-9 ####[facility] LABIA [id number] [place] [address] [place] Phosphate [Mass/Vol] 3.7 mg/dL Normal 2.7-4.8 [facility] Comment on above: Order Comment: Speci men Type: BLOOD SPECIMENOrdering Facility: [facility] Address: [address] [place] [address] Performed By: #### 1 9123-9, 51405-6 ####[facility] LABCLIA [id number] [place] [address] [place] Potassium [Moles/Vol] 3.9 mmol/L Normal 3.7-5.1 [facility] Comment on above: Order Comment: Speci men Type: BLOOD SPECIMENOrdering Facility: [facility] Address: [address] [place] [address] Performed By: #### 1 9123-9, 29316-6 ####[facility] LABCLIA [id number] [place] [address] [place] Sodium [Moles/Vol] 134 mmol/L Low 136-144 [facility] Comment on above: Order Comment: Speci men Type: BLOOD SPECIMENOrdering Facility: [facility] Address: [address] [place] [address] Performed By: #### 1 9123-9, 91831-4 ####[facility] LABCLIA [id number] [place] [address] [place] Urea nitrogen [Mass/Vol] 12 mg/dL Normal 7-21 [facility] Comment on above: Order Comment: Speci men Type: BLOOD SPECIMENOrdering Facility: [facility] Address: [address] [place], [place] [address] Performed By: #### 1 9123-9, 92255-3 ####[facility] LABCLIA [id number] [place] [address] [place] ALLIED HEALTHon 03-16-2023 ALLIED HEALTH HNO ID: [id number] Author: Heather Mcnair RT(R) Service: ? Author [...] Dorian(R) March 16, 2023 9:16 PM Normal [facility] CBC panel Auto (Bld)on 03-16 Erythrocyte distribution width (RBC) [Ratio] 13.4 % Normal 11.5-15.0 [facility] Comment on above: Order Comment: Tee francisco Type: BLOOD SPECIMEN [facility] Address: [address] [place] [address] Performed By: #### 1 9123-9, 90578-2 #### [facility] CLIA [id number] [address] [place] [address] [place] Hematocrit (Bld) [Volume fraction] 33.1 % Low 36.0-46.0 [facility] Comment on above: Order Comment: Tee francisco Type: BLOOD SPECIMEN [facility] Address: [address] [place] [address] Performed By: #### 1 9123-9, 81831-2 #### [facility] CLIA [id number] [address] [place] [address] [place] Hemoglobin (Bld) [Mass/Vol] 10.7 g/dL Low 11.5-15.5 [facility] Comment on above: Order Comment: Speci men Type: BLOOD SPECIMEN [facility] Address: [address] [place] [address] Performed By: #### 1 9123-9, 89630-0 #### [facility] CLIA [id number] [address] [place] [address] [place] MCH (RBC) [Entitic mass] 26.4 pg Normal 26.0-34.0 [facility] Comment on above: Order Comment: Speci men Type: BLOOD SPECIMEN [facility] Address: [address] [place], [place] [address] Performed By: #### 1 9123-9, 61075-7 #### [facility] CLIA [id number] [address] [place] [address] [place] MCHC (RBC) [Mass/Vol] 32.3 g/dL Normal 30.5-36.0 [facility] Comment on above: Order Comment: Speci men Type: BLOOD SPECIMEN [facility] Address: [address] [place], [place] [address] Performed By: #### 1 9123-9, 64393-7 #### [facility] CLIA [id number] [address] [place] [address] [place] MCV (RBC) [Entitic vol] 81.7 fL Normal 80.0-100.0 [facility] Comment on above: Order Comment: Speci men Type: BLOOD SPECIMEN [facility] Address: [address] [place] [address] Performed By: #### 1 9123-9, 78310-4 #### [facility] CLIA [id number] [address] [place] [address] [place] Nucleated RBC (Bld) [#/Vol] 10*3/uL Normal <0.01 [facility] Comment on above: Order Comment: Speci men Type: BLOOD SPECIMEN [facility] Address: [address] Performed By: #### 1 9123-9, 09869-4 #### [facility] CLIA [id number] [address] [place] [id number] [place] Platelet mean volume (Bld) [Entitic vol] 9.0 fL Normal 9.0-12.7 [facility] Comment on above: Order Comment: Speci men Type: BLOOD SPECIMEN [facility] Address: [address] Performed By: #### 1 9123-9, 17486-3 #### [facility] CLIA [id number] [address] [place] [address] [place] Platelets (Bld) [#/Vol] 444 10*3/uL High 150-400 [facility] Comment on above: Order Comment: Speci men Type: BLOOD SPECIMEN [facility] Address: [address] [place], [place] [address] Performed By: #### 1 9123-9, 58195-8 #### [facility] CLIA [id number] [address] [place] [address] [place] RBC (Bld) [#/Vol] 4.05 10*6/uL Normal 3.90-5.20 [facility] Comment on above: Order Comment: Speci men Type: BLOOD SPECIMEN [facility] Address: [address] [place] [address] Performed By: #### 1 9123-9, 50486-4 #### [facility] CLIA [id number] [address] [place] [id number] [place] WBC (Bld) [#/Vol] 8.78 10*3/uL Normal 3.70-11.00 [facility] Comment on above: Order Comment: Speci men Type: BLOOD SPECIMEN [facility] Address: [address] [place] [address] Performed By: #### 1 9123-9, 80119-4 #### [facility] CLIA [id number] [address] [facility] [id number] [place] [address] [place] CONSULT PROGon 03-16-2023 CONSULT PROG HNO ID: [id number] Author: Abbie Cifuentes MD Service: Obstetrics Author Type: Physician Type: Consult Progress Note Filed: 03/16/2023 7:27 AM Note Text: [employer] consult progress note Review the US on 03/15 with patient : Single , Live Intrauterine gestation / 8 weeks 2 days by CRL Blood Type : O positive Patient will follow up with her local upholsterer [employer] hear[employer] to continue care. Firer Bisque Kiln sign off If any question , please page x [phone]. Rusty Muniz 03/16/2023 7:27 AM Normal [facility] MRI ABDOMEN WO IVCONon 03-16 [...] 03/17/2023 9:32 AM via verbal communication. Community Youth Secretary: JAYMIE Transcribe Date/Time: Mar 17 2023 8:02A Dictated by : BRANDEN DE LA TORRE MD This examination was interpreted and the report reviewed and electronically signed by: JAZMIN VALENTE MD on Mar 17 2023 9:50AM EST [id number] Normal [facility] Magnesium SerPl-mCncon 03-16 Magnesium [Mass/Vol] 1.9 mg/dL Normal 1.7-2.3 [facility] Comment on above: Order Comment: Speci men Type: BLOOD SPECIMEN [facility] Address: [address] [place] [id number] Performed By: #### 1 9123-9, 14565-2 #### [facility] CLIA [id number] [address] [place] [address] [place] Renal function 2000 panelon 03-16-2023 Albumin [Mass/Vol] 3.6 g/dL Low 3.9-4.9 [facility] Comment on above: Order Comment: Speci men Type: BLOOD SPECIMEN [facility] Address: [address] [place] [address] Performed By: #### 1 9123-9, 29725-5 #### [facility] CLIA [id number] [address] [place] [address] [place] Anion gap [Moles/Vol] 14 mmol/L Normal 9-18 [facility] Comment on above: Order Comment: Speci men Type: BLOOD SPECIMEN [facility] Address: [address] [place] [address] Performed By: #### 1 9123-9, 11482-3 #### [facility] CLIA [id number] [address] [place] [address] [place] Calcium [Mass/Vol] 9.3 mg/dL Normal 8.5-10.2 [facility] Comment on above: Order Comment: Speci men Type: BLOOD SPECIMEN [facility] Address: [address] Performed By: #### 1 9123-9, 33153-7 #### [facility] CLIA [id number] [address] [place] [address] [place] Chloride [Moles/Vol] 102 mmol/L Normal 97-105 [facility] Comment on above: Order Comment: Speci men Type: BLOOD SPECIMEN [facility] Address: [address] Performed By: #### 1 9123-9, 29980-5 #### [facility] CLIA [id number] [address] [place] [address] [place] CO2 [Moles/Vol] 20 mmol/L Low 22-30 [facility] Comment on above: Order Comment: Speci men Type: BLOOD SPECIMEN [facility] Address: [address] [place] [address] Performed By: #### 1 9123-9, 79413-6 #### [facility] CLIA [id number] [address] [place] [address] [place] Creatinine [Mass/Vol] 0.71 mg/dL Normal 0.58-0.96 [facility] Comment on above: Order Comment: Speci men Type: BLOOD SPECIMEN [facility] Address: [address] Performed By: #### 1 9123-9, 00143-4 #### [facility] CLIA [id number] [address] [place] [address] [place] ESTIMATED GLOMERULAR FILTRATION RATE 117 mL/min/1.73m??? Normal >=60 [facility] Comment on above: Order Comment: Tee francisco Type: BLOOD SPECIMEN [facility] Address: [address] [place] [address] Result Comment: Marisa mated Glomerular Filtration Rate [...] actual GFR. Performed By: #### 1 9123-9, 43179-2 #### [facility] CLIA [id number] [address] [place] [address] [place] Glucose [Mass/Vol] 125 mg/dL High 74-99 [facility] Comment on above: Order Comment: Tee francisco Type: BLOOD SPECIMEN [facility] Address: [address] [place] [address] Result Comment: The [place] Diabetes Association (ADA) provides guidance for cutoff [...] Standards of Medical Care in Diabetes 2016, [place] [employer]. Diabetes Care. 2016.39(Suppl 1). Performed By: #### 1 9123-9, 95365-2 #### [facility] CLIA [id number] [facility] [place] [address] [place] Phosphate [Mass/Vol] 3.7 mg/dL Normal 2.7-4.8 [facility] Comment on above: Order Comment: Speci men Type: BLOOD SPECIMEN [facility] Address: [address] [place] [address] Performed By: #### 1 9123-9, 99678-5 #### [facility] CLIA [id number] [address] [place] [address] [place] Potassium [Moles/Vol] 3.9 mmol/L Normal 3.7-5.1 [facility] Comment on above: Order Comment: Speci men Type: BLOOD SPECIMEN [facility] Address: [address] [place], [place] [address] Performed By: #### 1 9123-9, 72260-7 #### [facility] CLIA [id number] [address] [place] [address] [place] Sodium [Moles/Vol] 136 mmol/L Normal 136-144 [facility] Comment on above: Order Comment: Speci men Type: BLOOD SPECIMEN [facility] Address: [address] [place], [place] [address] Performed By: #### 1 9123-9, 44146-8 #### [facility] CLIA [id number] [address] [place] [address] [place] Urea nitrogen [Mass/Vol] 10 mg/dL Normal 7-21 [facility] Comment on above: Order Comment: Speci men Type: BLOOD SPECIMEN [facility] Address: [address] Performed By: #### 1 9123-9, 79689-5 #### [facility] CLIA [id number] [address] [place] [address] [place] CBC panel Auto (Bld)on 03-15 Erythrocyte distribution width (RBC) [Ratio] 13.5 % Normal 11.5-15.0 [facility] Comment on above: Order Comment: Speci men Type: BLOOD SPECIMENOrdering Facility: [facility] Address: [address] [place] [address] Performed By: #### 5 8410-2 ####[facility] LABIA [id number] [address] [place] Hematocrit (Bld) [Volume fraction] 32.4 % Low 36.0-46.0 [facility] Comment on above: Order Comment: Speci men Type: BLOOD SPECIMENOrdering Facility: [facility] Address: [address] [place] [address] Performed By: #### 5 8410-2 ####[facility] LABIA [id number] [address] [place] Hemoglobin (Bld) [Mass/Vol] 10.4 g/dL Low 11.5-15.5 [facility] Comment on above: Order Comment: Speci men Type: BLOOD SPECIMENOrdering Facility: [facility] Address: [address] Performed By: #### 5 8410-2 ####[facility] LABIA [id number] [address] [place] MCH (RBC) [Entitic mass] 26.6 pg Normal 26.0-34.0 [facility] Comment on above: Order Comment: Speci men Type: BLOOD SPECIMENOrdering Facility: [facility] Address: [address] Performed By: #### 5 8410-2 ####[facility] LABIA [id number] [address] [place] MCHC (RBC) [Mass/Vol] 32.1 g/dL Normal 30.5-36.0 [facility] Comment on above: Order Comment: Speci men Type: BLOOD SPECIMENOrdering Facility: [facility] Address: [address] Performed By: #### 5 8410-2 ####[facility] LABCLIA [id number] [place] [address] [place] MCV (RBC) [Entitic vol] 82.9 fL Normal 80.0-100.0 [facility] Comment on above: Order Comment: Speci men Type: BLOOD SPECIMENOrdering Facility: [facility] Address: [address] [place] [address] Performed By: #### 5 8410-2 ####[facility] LABIA [id number] [place] [address] [place] Nucleated RBC (Bld) [#/Vol] 10*3/uL Normal <0.01 [facility] Comment on above: Order Comment: Speci men Type: BLOOD SPECIMENOrdering Facility: [facility] Address: [address] [place], [place] [address] Performed By: #### 5 8410-2 ####[facility] LABIA [id number] [place] [address] [place] Platelet mean volume (Bld) [Entitic vol] 9.5 fL Normal 9.0-12.7 [facility] Comment on above: Order Comment: Speci men Type: BLOOD SPECIMENOrdering Facility: [facility] Address: [address] [place] [address] Performed By: #### 5 8410-2 ####[facility] LABIA [id number] [place] [address] [place] Platelets (Bld) [#/Vol] 450 10*3/uL High 150-400 [facility] Comment on above: Order Comment: Speci men Type: BLOOD SPECIMENOrdering Facility: [facility] Address: [address] [place] [address] Performed By: #### 5 8410-2 ####[facility] LABIA [id number] [place] [address] [place] RBC (Bld) [#/Vol] 3.91 10*6/uL Normal 3.90-5.20 [facility] Comment on above: Order Comment: Speci men Type: BLOOD SPECIMENOrdering Facility: [facility] Address: [address] [place] [address] Performed By: #### 5 8410-2 ####[facility] LABCLIA [id number] [address] OF [facility] WBC (Bld) [#/Vol] 10.48 10*3/uL Normal 3.70-11.00 [facility] Comment on above: Order Comment: Speci men Type: BLOOD SPECIMENOrdering Facility: [facility] Address: [address] [place] [address] Performed By: #### 5 8410-2 ####[facility] LABCLIA [id number] [address] CONSULTon 03-15-2023 CONSULT HNO ID: [id number] Author: Abbie Cifuentes MD Service: Gynecology Author [...] hr Seen and evaluated with Dr. Cifuentes, [employer] staff. Pretty Duncan DO [employer] Resident, PGY-1 9:11 AM After 5pm and on weekends please page [phone]. SUBJECTIVE HPI: 32 year old with PMHx Stills disease, benign liver angioma s/p resection, at 8 weeks 6 days gestation (by LMP) admitted for pyelonephritis, seen by gynecology for vaginal spotting. States she began experiencing flank pain with hematuria, without dysuria or frequency, on February 22. Called her OB provider (Dr. Ricks at [facility]), who gave rx for macrobid. [...] scheduled this Tuesday (03/18) Was transferred to [facility] for management given her history of Stills [...] Mg, emergency CS. Delivered 9 mo ago [employer] Hx: LMP: 01/12/23 Menses: regular every 28 [...] The remainde (more content not included)... Normal [facility] CRP SerPl-mCncon 03-15-2023 CRP [Mass/Vol] 9.0 mg/dL High <0.9 [facility] Comment on above: Order Comment: Speci men Type: BLOOD SPECIMEN [facility] Address: [address] [place] [id number] Performed By: #### 1 9123-9, 69102-0 #### [facility] CLIA [id number] [address] [place], [place] [address] [address] OF [facility] MEDICAL Tegan 03-15-2023 MEDICAL DEVI HNO ID: [id number] Author: Jose De Jesus White APRN.CNP Service: Critical Care Author Type: Nurse Practitioner [...] bleeding HPI: Ms. Clements was transferred to [facility] 03/13 from [facility] for further mgmt of possible [...] Abdomen: soft and tender Peripheral 03/13/23 1300 [facility] Short Left Antecubital 18 Gauge (Active) Placement Date/Time: 03/13/23 1300 Line, Drain, Airway Placed by: [facility] Type of Peripheral Line: Short Location: Left Insertion Site: Antecubital Size: 18 Gauge Line Placed Under Ultrasound Guidance: Yes Peripheral 03/13/23 1300 [facility] Right Forearm 18 Gauge (Active) Placement Date/Time: 03/13/23 1300 Line, Drain, Airway Placed by: [facility] Location: Right Insertion Site: Forearm Size: 18 Gauge Line Placed Under Ultrasound Guidance: Yes [facility] Diagnostic Tests Reviewed: Most recent labs and imaging results. Primary Team Aware/Notified: Yes SIGNATURE: Jose De Jesus White APRN.CNP PATIENT NAME: Qian Clements DATE: March 15, 2023 TIME: 8:57 AM Normal [facility] Magnesium SerPl-ncon 03-15 Magnesium [Mass/Vol] 2.1 mg/dL Normal 1.7-2.3 [facility] Comment on above: Order Comment: Speci men Type: BLOOD SPECIMEN [facility] Address: [address] [place] [address] Performed By: #### 1 9123-9, 46735-1 #### [facility] CLIA [id number] [address] [place] [address] [place] Renal function 2000 panelon 03-15-2023 Albumin [Mass/Vol] 3.7 g/dL Low 3.9-4.9 [facility] Comment on above: Order Comment: Speci men Type: BLOOD SPECIMEN [facility] Address: [address] [place] [address] Performed By: #### 1 9123-9, 64118-4 #### [facility] CLIA [id number] [address] [place] [address] [place] Anion gap [Moles/Vol] 12 mmol/L Normal 9-18 [facility] Comment on above: Order Comment: Speci men Type: BLOOD SPECIMEN [facility] Address: [address] [place], [place] [address] Performed By: #### 1 9123-9, 68074-6 #### [facility] CLIA [id number] [address] [place] [address] [place] Calcium [Mass/Vol] 9.5 mg/dL Normal 8.5-10.2 [facility] Comment on above: Order Comment: Speci men Type: BLOOD SPECIMEN [facility] Address: [address] [place] [address] Performed By: #### 1 9123-9, 34476-9 #### [facility] CLIA [id number] [address] [place] [address] [place] Chloride [Moles/Vol] 103 mmol/L Normal 97-105 [facility] Comment on above: Order Comment: Speci men Type: BLOOD SPECIMEN [facility] Address: [address] [place] [address] Performed By: #### 1 9123-9, 46676-9 #### [facility] CLIA [id number] [address] [place] [address] [place] CO2 [Moles/Vol] 21 mmol/L Low 22-30 [facility] Comment on above: Order Comment: Speci men Type: BLOOD SPECIMEN [facility] Address: [address] [place] [address] Performed By: #### 1 9123-9, 97720-2 #### [facility] CLIA [id number] [address] [place] [address] [place] Creatinine [Mass/Vol] 0.77 mg/dL Normal 0.58-0.96 [facility] Comment on above: Order Comment: Speci men Type: BLOOD SPECIMEN [facility] Address: [address] [place] [address] Performed By: #### 1 9123-9, 07639-2 #### [facility] CLIA [id number] [address] [place] [address] OF [facility] ESTIMATED GLOMERULAR FILTRATION RATE 107 mL/min/1.73m??? Normal >=60 [facility] Comment on above: Order Comment: Speci men Type: BLOOD SPECIMEN [facility] Address: [address] [place] [address] Result Comment: Marisa mated Glomerular Filtration Rate [...] actual GFR. Performed By: #### 1 9123-9, 88939-1 #### [facility] CLIA [id number] [address] [place] [address] [place] Glucose [Mass/Vol] 102 mg/dL High 74-99 [facility] Comment on above: Order Comment: Tee francisco Type: BLOOD SPECIMEN [facility] Address: [address] [place] [address] Result Comment: The [place] Diabetes [employer] (ADA) provides guidance for cutoff [...] Standards of Medical Care in Diabetes 2016, [place] [employer]. Diabetes Care. 2016.39(Suppl 1). Performed By: #### 1 9123-9, 20296-8 #### [facility] CLIA [id number] [address] [place] [id number] [place] Phosphate [Mass/Vol] 3.5 mg/dL Normal 2.7-4.8 [facility] Comment on above: Order Comment: Tee francisco Type: BLOOD SPECIMEN [facility] Address: [address] [place] [address] Performed By: #### 1 9123-9, 27222-6 #### [facility] CLIA [id number] [address] [address] [place] Potassium [Moles/Vol] 4.3 mmol/L Normal 3.7-5.1 [facility] Comment on above: Order Comment: Speci men Type: BLOOD SPECIMEN Ordering Facility: [facility] Address: [address] Performed By: #### 1 9123-9, 93071-0 #### [facility] CLIA [id number] [address] [place] [address] [place] Sodium [Moles/Vol] 136 mmol/L Normal 136-144 [facility] Comment on above: Order Comment: Speci men Type: BLOOD SPECIMEN Ordering Facility: [facility] Address: [address] Performed By: #### 1 9123-9, 96923-1 #### [facility] CLIA [id number] [address] [place] [address] [place] Urea nitrogen [Mass/Vol] 11 mg/dL Normal 7-21 [facility] Comment on above: Order Comment: Speci men Type: BLOOD SPECIMEN Ordering Facility: [facility] Address: [address] Performed By: #### 1 9123-9, 41076-2 #### [facility] CLIA [id number] [address] [place] [address] [place] TYPE + SCREEN PRENATALon ABO O Normal [facility] Comment on above: Order Comment: Speci men Type: BLOOD SPECIMEN Ordering Facility: [facility] Address: [address] Performed By: #### 1 9123-9, 17013-3 #### [facility] CLIA [id number] [address] [place] [address] [place] HISTORICAL AB SCR STATUS Negative Normal [facility] Comment on above: Order Comment: Speci men Type: BLOOD SPECIMEN Ordering Facility: [facility] Address: [address] Performed By: #### 1 9123-9, 49190-9 #### [facility] CLIA [id number] [address] [place] [address] [place] Rh Nom (Bld) Positive Normal [facility] Comment on above: Order Comment: Speci men Type: BLOOD SPECIMEN Ordering Facility: [facility] Address: [address] [place] [address] Performed By: #### 1 9123-9, 83869-4 #### [facility] CLIA [id number] [address] [place] TYPE AND SCREEN EXPIRATION 03/18/2023 23:59 Normal [facility] Comment on above: Order Comment: Speci men Type: BLOOD SPECIMEN Ordering Facility: [facility] Address: [address] [place] [address] Performed By: #### 1 9123-9, 68864-4 #### [facility] CLIA [id number] [address] [place] [address] [place] US PREG TRANSABD <14 WKS LTD on 03-15-2023 US PREG TRANSABD <14 WKS LTD * * *Final Report* * * DATE OF EXAM: Mar 15 2023 2:48PM [facility] [place] [facility]35 - US PREG TRANSABD <14 WKS [...] sac: Present - Embryo: Single present - Junction rump length: 1.83 cm, corresponding gestational age 8 weeks, 2 days -Gestational heart rate: present 161-166 bpm -Subgestational hematoma: Absent Right ovary: Not seen. Left ovary: - Size: 2.4 x 1.3 x 2.7 cm - Normal sonographic appearance with physiologic follicles. Pelvis free fluid: None. IMPRESSION: Single, live intrauterine gestation. Estimated Gestational Age: 8 weeks, 2 days by crown rump length. Community Youth Secretary: JAYMIE Transcribe Date/Time: Mar 15 2023 3:17P Dictated by : MARY ANN ESQUIVEL MD This examination was interpreted and the report reviewed and electronically signed by: MARY ANN ESQUIVEL MD on Mar 15 2023 3:24PM EST [id number] Normal [facility] US PREG TRANSVAG <14 WEEKSon 03-15-2023 US PREG TRANSVAG <14 WEEKS * * *Final Report* * * DATE OF EXAM: Mar 15 2023 2:48PM U 1034 - US PREG TRANSVAG <14 WEEKS / PROCEDURE REASON: Pelvic pain, positive beta-HCG, data support specialist etiology suspected * * * * Physician [...] sac: Present - Embryo: Single present - Junction rump length: 1.83 cm, corresponding gestational age 8 weeks, 2 days -Gestational heart rate: present 161-166 bpm -Subgestational hematoma: Absent Right ovary: Not seen. Left ovary: - Size: 2.4 x 1.3 x 2.7 cm - Normal sonographic appearance with physiologic follicles. Pelvis free fluid: None. IMPRESSION: Single, live intrauterine gestation. Estimated Gestational Age: 8 weeks, 2 days by crown rump length. Community Youth Secretary: [facility] Transcribe Date/Time: Mar 15 2023 3:17P Dictated by : MARY ANN ESQUIVEL MD This examination was interpreted and the report reviewed and electronically signed by: MARY ANN ESQUIVEL MD on Mar 15 2023 3:24PM EST [id number] Normal [facility] CASE MGT INIT Mitch 2022 CASE MGT INIT MERLENE HNO ID: [id number] Author: Adwoa Hodge RN Service: ? Author Type: Registered Nurse Type: Care Mgt Initial Assessment Filed: 03/14/2023 1:05 PM Note Text: CARE MANAGEMENT: ASSESSMENT AND DISCHARGE PLAN SERVICE DATE: March 14, 2023 SERVICE TIME: 12:53 PM PCP: Racquel Simpson Primary Contact: Extended Emergency Contact Information Primary Emergency Contact: Karissa Ugalde Mobile Relation: Mother Admission Status: Inpatient Insurance Provider: [facility] MEDICAID Needs Prior to Discharge: To Be Determined PCP: Racquel Simpson p. [phone] f. [phone] Post-Acute Discharge Plan: CM met with pt [...] does not use drugs. Primary care paged SERVICE ELECTRICIAN regarding recommended imaging for nephrolithiasis in the setting of 1st trimester of . This patient has been screened for Care Management Transitional Planning Services. At this time, it does not appear this patient will require transition planning services. Should this change, and the patient require transition planning services during this admission, please call [phone]. NO SKILLED NEEDS SIGNATURE: Adwoa Hodge RN PATIENT NAME: Qian Clements DATE: March 14, 2023 TIME: 12:53 PM CONTACT #: [phone] Normal [facility] CBC panel Auto (Bld)on 03-14 Erythrocyte distribution width (RBC) [Ratio] 13.6 % Normal 11.5-15.0 [facility] Comment on above: Order Comment: Speci men Type: BLOOD SPECIMENOrdering Facility: [facility] Address: [address] [place] [address] Performed By: #### 5 8410-2 ####[facility] [id number] [address] STATES OF [facility] Hematocrit (Bld) [Volume fraction] 31.0 % Low 36.0-46.0 [facility] Comment on above: Order Comment: Speci men Type: BLOOD SPECIMENOrdering Facility: [facility] Address: [address] [place] [address] Performed By: #### 5 8410-2 ####[facility] [id number] [address] OF [facility] Hemoglobin (Bld) [Mass/Vol] 10.4 g/dL Low 11.5-15.5 [facility] Comment on above: Order Comment: Speci men Type: BLOOD SPECIMENOrdering Facility: [facility] Address: [address] [place] [address] Performed By: #### 5 8410-2 ####[facility] [id number] [place] [address] [place] MCH (RBC) [Entitic mass] 26.5 pg Normal 26.0-34.0 [facility] Comment on above: Order Comment: Speci men Type: BLOOD SPECIMENOrdering Facility: [facility] Address: [address] [place] [address] Performed By: #### 5 8410-2 ####[facility] [id number] [address] [place] MCHC (RBC) [Mass/Vol] 33.5 g/dL Normal 30.5-36.0 [facility] Comment on above: Order Comment: Speci men Type: BLOOD SPECIMENOrdering Facility: [facility] Address: [address] Performed By: #### 5 8410-2 ####[facility] [id number] [address] [place] MCV (RBC) [Entitic vol] 78.9 fL Low 80.0-100.0 [facility] Comment on above: Order Comment: Speci men Type: BLOOD SPECIMENOrdering Facility: [facility] Address: [address] Performed By: #### 5 8410-2 ####[facility] [id number] [place] [address] [place] Nucleated RBC (Bld) [#/Vol] 10*3/uL Normal <0.01 [facility] Comment on above: Order Comment: Speci men Type: BLOOD SPECIMENOrdering Facility: [facility] Address: [address] Performed By: #### 5 8410-2 ####[facility] [id number] [place] [address] [place] Platelet mean volume (Bld) [Entitic vol] 9.0 fL Normal 9.0-12.7 [facility] Comment on above: Order Comment: Speci men Type: BLOOD SPECIMENOrdering Facility: [facility] Address: [address] [place] [address] Performed By: #### 5 8410-2 ####[facility] [id number] [place] [address] [place] Platelets (Bld) [#/Vol] 415 10*3/uL High 150-400 [facility] Comment on above: Order Comment: Speci men Type: BLOOD SPECIMENOrdering Facility: [facility] Address: [address] Performed By: #### 5 8410-2 ####[facility] [id number] [place] [id number] [place] RBC (Bld) [#/Vol] 3.93 10*6/uL Normal 3.90-5.20 [facility] Comment on above: Order Comment: Speci men Type: BLOOD SPECIMENOrdering Facility: [facility] Address: [address] [place], [place] [address] Performed By: #### 5 8410-2 ####[facility] [id number] [place] [address] [place] WBC (Bld) [#/Vol] 11.23 10*3/uL High 3.70-11.00 [facility] Comment on above: Order Comment: Speci men Type: BLOOD SPECIMENOrdering Facility: [facility] Address: [address] [place], [place] [address] Performed By: #### 5 8410-2 ####[facility] [id number] [place] [address] [place] Magnesium SerPl-mCncon 03-14 Magnesium [Mass/Vol] 1.9 mg/dL Normal 1.7-2.3 [facility] Comment on above: Order Comment: Speci men Type: BLOOD SPECIMEN Ordering Facility: [facility] Address: [address] [place], [place] [address] Performed By: #### 4 537-7, 47472-0 #### [facility] CLIA [id number] [address] [place] [address] [place] Renal function 2000 panelon 03-14-2023 Albumin [Mass/Vol] 3.6 g/dL Low 3.9-4.9 [facility] Comment on above: Order Comment: Speci men Type: BLOOD SPECIMEN Ordering Facility: [facility] Address: [address] [place], [place] [address] Performed By: #### 4 537-7, 69065-2 #### [facility] CLIA [id number] [address] [place] [address] [place] Anion gap [Moles/Vol] 13 mmol/L Normal 9-18 [facility] Comment on above: Order Comment: Speci men Type: BLOOD SPECIMEN Ordering Facility: [facility] Address: [address] [place] [address] Performed By: #### 4 537-7, 73387-0 #### [facility] CLIA [id number] [address] [place] [address] [place] Calcium [Mass/Vol] 9.2 mg/dL Normal 8.5-10.2 [facility] Comment on above: Order Comment: Speci men Type: BLOOD SPECIMEN Ordering Facility: [facility] Address: [address] [place] [address] Performed By: #### 4 537-7, 63389-5 #### [facility] CLIA [id number] [address] [place] [address] [place] Chloride [Moles/Vol] 102 mmol/L Normal 97-105 [facility] Comment on above: Order Comment: Speci men Type: BLOOD SPECIMEN Ordering Facility: [facility] Address: [address] [place] [address] Performed By: #### 4 537-7, 27027-7 #### [facility] CLIA [id number] [address] [place] [address] [place] CO2 [Moles/Vol] 19 mmol/L Low 22-30 [facility] Comment on above: Order Comment: Speci men Type: BLOOD SPECIMEN Ordering Facility: [facility] Address: [address] [place], [place] [address] Performed By: #### 4 537-7, 84095-3 #### [facility] CLIA [id number] [id number] [place] [address] Creatinine [Mass/Vol] 0.75 mg/dL Normal 0.58-0.96 [facility] Comment on above: Order Comment: Tee francisco Type: BLOOD SPECIMEN Ordering Facility: [facility] Address: [address] [place] [address] Performed By: #### 4 537-7, 88362-5 #### [facility] CLIA [id number] [address] [place] [address] ESTIMATED GLOMERULAR FILTRATION RATE 110 mL/min/1.73m??? Normal >=60 [facility] Comment on above: Order Comment: Tee francisco Type: BLOOD SPECIMEN Ordering Facility: [facility] Address: [address] [place] [address] Result Comment: Marisa mated Glomerular Filtration Rate [...] actual GFR. Performed By: #### 4 537-7, 54272-3 #### [facility] CLIA [id number] [address] [place] [address] [place] Glucose [Mass/Vol] 131 mg/dL High 74-99 [facility] Comment on above: Order Comment: Tee francisco Type: BLOOD SPECIMEN Ordering Facility: [facility] Address: [address] [place] [address] Result Comment: The [place] Diabetes Association (ADA) provides guidance for cutoff [...] Standards of Medical Care in Diabetes 2016, [place] [employer]. Diabetes Care. 2016.39(Suppl 1). Performed By: #### 4 537-7, 49683-1 #### [facility] CLIA [id number] [address] [place] [address] [place] Phosphate [Mass/Vol] 2.6 mg/dL Low 2.7-4.8 [facility] Comment on above: Order Comment: Speci men Type: BLOOD SPECIMEN Ordering Facility: [facility] Address: [address] [place] [address] Performed By: #### 4 537-7, 08655-6 #### [facility] CLIA [id number] [address] [place] [address] [place] Potassium [Moles/Vol] 3.7 mmol/L Normal 3.7-5.1 [facility] Comment on above: Order Comment: Speci men Type: BLOOD SPECIMEN Ordering Facility: [facility] Address: [address] [place] [address] Performed By: #### 4 537-7, 58093-5 #### [facility] CLIA [id number] [address] [place] [address] [place] Sodium [Moles/Vol] 134 mmol/L Low 136-144 [facility] Comment on above: Order Comment: Speci men Type: BLOOD SPECIMEN Ordering Facility: [facility] Address: [address] Performed By: #### 4 537-7, 62790-8 #### [facility] CLIA [id number] [address] [place] [address] [place] Urea nitrogen [Mass/Vol] 7 mg/dL Normal 7-21 [facility] Comment on above: Order Comment: Speci men Type: BLOOD SPECIMEN Ordering Facility: [facility] Address: [address] [place] [address] Performed By: #### 4 537-7, 27871-7 #### [facility] CLIA [id number] [address] [facility] [id number] [address] [place] US KIDNEY/BLADDERon 03-14-20 US KIDNEY/BLADDER * * *Final Report* * * DATE OF EXAM: Mar 14 2023 10:55AM [facility] 1055 - US KIDNEY/BLADDER / PROCEDURE REASON: [...] NO HYDRONEPHROSIS OR SHADOWING RENAL CALCULUS. Community Youth Secretary: JAYMIE Transcribe Date/Time: Mar 14 2023 12:32P Dictated by : ARTURO ALVARADO DO This examination was interpreted and the report reviewed and electronically signed by: ARTURO ALVARADO DO on Mar 14 2023 12:34PM EST [id number] Normal [facility] BETA HCG, QUANTITATIVE FOR E Don 03-13-2023 HCG.beta subunit Qn m[IU]/mL High <5.0 [facility] Comment on above: Order Comment: Speci men Type: BLOOD SPECIMEN Ordering Facility: [facility] Address: [address] [place] [address] Result Comment: SO TITATIVE HCG NORMAL RANGES Weeks of Gestation (Weeks Since LMP) 3 Weeks (5.8-71.2 mIU/mL) 4 Weeks (9.5-750 mIU/mL) 5 Weeks (217-7138 mIU/mL) 6 Weeks (158-35765 mIU/mL) 7 Weeks (3697-386479 mIU/mL) 8 Weeks (63888-618519 mIU/mL) 9 Weeks (05663-793773 mIU/mL) 10 Weeks (90559-677934 mIU/mL) 12 Weeks (83511-830904 mIU/mL) Referenced to 4th IS of [facility] Performed By: #### 4 537-7, 21807-8 #### [facility] CLIA [id number] [address] [place] [address] [place] Bacteria Bld Culton 03-13-20 Bacteria identified Cx Nom (Bld) CULTURE, BLOOD: No growth 5 days Normal [facility] Comment on above: Performed By: #### 6 00-7 ####[facility] [id number] [address] [place] Bacteria identified Cx Nom (Bld) CULTURE, BLOOD: No growth 5 days Normal [facility] Comment on above: Performed By: #### 6 00-7 ####[facility] [id number] [place] [address] [place] CBC W Auto Differential pane l (Bld)on 03-13-2023 Basophils (Bld) [#/Vol] 0.03 10*3/uL Normal <0.11 [facility] Comment on above: Order Comment: Speci men Type: BLOOD SPECIMEN Ordering Facility: [facility] Address: [address] [place] [id number] Performed By: #### 4 537-7, 68422-8 #### [facility] CLIA [id number] [address] [place] Basophils/100 WBC (Bld) 0.2 % Normal [facility] Comment on above: Order Comment: Speci men Type: BLOOD SPECIMEN Ordering Facility: [facility] Address: [address] Performed By: #### 4 537-7, 21773-6 #### [facility] CLIA [id number] [address] [place] [address] [place] Differential cell count method Nom (Bld) Auto Normal [facility] Comment on above: Order Comment: Speci men Type: BLOOD SPECIMEN Ordering Facility: [facility] Address: [address] [place] [address] Performed By: #### 4 537-7, 49144-0 #### [facility] CLIA [id number] [address] [place] [address] [place] Eosinophils (Bld) [#/Vol] 10*3/uL Normal <0.46 [facility] Comment on above: Order Comment: Speci men Type: BLOOD SPECIMEN Ordering Facility: [facility] Address: [address] Performed By: #### 4 537-7, 41134-7 #### [facility] CLIA [id number] [address] [place] [address] [place] Eosinophils/100 WBC (Bld) 0.1 % Normal [facility] Comment on above: Order Comment: Speci men Type: BLOOD SPECIMEN Ordering Facility: [facility] Address: [address] Performed By: #### 4 537-7, 30789-0 #### [facility] CLIA [id number] [address] [place] [address] [place] Erythrocyte distribution width (RBC) [Ratio] 13.5 % Normal 11.5-15.0 [facility] Comment on above: Order Comment: Speci men Type: BLOOD SPECIMEN Ordering Facility: [facility] Address: [address] Performed By: #### 4 537-7, 44045-3 #### [facility] CLIA [id number] [address] [place] [address] [place] Hematocrit (Bld) [Volume fraction] 32.4 % Low 36.0-46.0 [facility] Comment on above: Order Comment: Speci men Type: BLOOD SPECIMEN Ordering Facility: [facility] Address: [address] [place] [address] Performed By: #### 4 537-7, 70162-6 #### [facility] CLIA [id number] [address] [place] [address] [place] Hemoglobin (Bld) [Mass/Vol] 10.5 g/dL Low 11.5-15.5 [facility] Comment on above: Order Comment: Speci men Type: BLOOD SPECIMEN Ordering Facility: [facility] Address: [address] [place] [address] Performed By: #### 4 537-7, 72030-7 #### [facility] CLIA [id number] [address] [place] [address] [place] Immature granulocytes (Bld) [#/Vol] 0.11 10*3/uL High <0.10 [facility] Comment on above: Order Comment: Speci men Type: BLOOD SPECIMEN Ordering Facility: [facility] Address: [address] Performed By: #### 4 537-7, 44633-9 #### [facility] CLIA [id number] [address] [place] [address] [place] Immature granulocytes/100 WBC (Bld) 0.8 % Normal [facility] Comment on above: Order Comment: Speci men Type: BLOOD SPECIMEN Ordering Facility: [facility] Address: [address] Performed By: #### 4 537-7, 48726-1 #### [facility] CLIA [id number] [address] [place] [address] [place] Lymphocytes (Bld) [#/Vol] 1.86 10*3/uL Normal 1.00-4.00 [facility] Comment on above: Order Comment: Speci men Type: BLOOD SPECIMEN Ordering Facility: [facility] Address: [address] [place] [address] Performed By: #### 4 537-7, 89868-1 #### [facility] CLIA [id number] [address] [place] [address] [place] Lymphocytes/100 WBC (Bld) 13.0 % Normal [facility] Comment on above: Order Comment: Speci men Type: BLOOD SPECIMEN Ordering Facility: [facility] Address: [address] [place] [address] Performed By: #### 4 537-7, 32216-5 #### [facility] CLIA [id number] [address] [place] [address] [place] MCH (RBC) [Entitic mass] 26.6 pg Normal 26.0-34.0 [facility] Comment on above: Order Comment: Speci men Type: BLOOD SPECIMEN Ordering Facility: [facility] Address: [address] [place], [place] [address] Performed By: #### 4 537-7, 74044-1 #### [facility] CLIA [id number] [address] [place] [address] [place] MCHC (RBC) [Mass/Vol] 32.4 g/dL Normal 30.5-36.0 [facility] Comment on above: Order Comment: Speci men Type: BLOOD SPECIMEN Ordering Facility: [facility] Address: [address] [place], [place] [address] Performed By: #### 4 537-7, 33230-0 #### [facility] CLIA [id number] [address] [place] [address] [place] MCV (RBC) [Entitic vol] 82.0 fL Normal 80.0-100.0 [facility] Comment on above: Order Comment: Speci men Type: BLOOD SPECIMEN Ordering Facility: [facility] Address: [address] [place] [address] Performed By: #### 4 537-7, 63784-0 #### [facility] CLIA [id number] [address] [place] [address] [place] Monocytes (Bld) [#/Vol] 1.09 10*3/uL High <0.87 [facility] Comment on above: Order Comment: Speci men Type: BLOOD SPECIMEN Ordering Facility: [facility] Address: [address] [place], [place] [address] Performed By: #### 4 537-7, 49571-1 #### [facility] CLIA [id number] [address] [place] [address] [place] Monocytes/100 WBC (Bld) 7.6 % Normal [facility] Comment on above: Order Comment: Speci men Type: BLOOD SPECIMEN Ordering Facility: [facility] Address: [address] [place], [place] [id number] Performed By: #### 4 537-7, 29374-4 #### [facility] CLIA [id number] [address] [place] [address] [place] Neutrophils (Bld) [#/Vol] 11.15 10*3/uL High 1.45-7.50 [facility] Comment on above: Order Comment: Speci men Type: BLOOD SPECIMEN Ordering Facility: [facility] Address: [address] Performed By: #### 4 537-7, 55615-8 #### [facility] CLIA [id number] [address] [place] [address] [place] Neutrophils/100 WBC (Bld) 78.3 % Normal [facility] Comment on above: Order Comment: Speci men Type: BLOOD SPECIMEN Ordering Facility: [facility] Address: [address] [place] [address] Performed By: #### 4 537-7, 76281-3 #### [facility] CLIA [id number] [address] [place] [address] [place] Nucleated RBC (Bld) [#/Vol] 10*3/uL Normal <0.01 [facility] Comment on above: Order Comment: Speci men Type: BLOOD SPECIMEN Ordering Facility: [facility] Address: [address] Performed By: #### 4 537-7, 21023-2 #### [facility] CLIA [id number] [address] [place] [address] [place] Nucleated RBC/100 WBC (Bld) [Ratio] 0.0 /100 WBC Normal [facility] Comment on above: Order Comment: Speci men Type: BLOOD SPECIMEN Ordering Facility: [facility] Address: [address] [place], [place] [id number] Performed By: #### 4 537-7, 74189-3 #### [facility] CLIA [id number] [address] [place] [address] [place] Platelet mean volume (Bld) [Entitic vol] 8.9 fL Low 9.0-12.7 [facility] Comment on above: Order Comment: Speci men Type: BLOOD SPECIMEN Ordering Facility: [facility] Address: [address] [place] [address] Performed By: #### 4 537-7, 51869-6 #### [facility] CLIA [id number] [address] [place] [address] [place] Platelets (Bld) [#/Vol] 378 10*3/uL Normal 150-400 [facility] Comment on above: Order Comment: Speci men Type: BLOOD SPECIMEN Ordering Facility: [facility] Address: [address] [place], [place] [id number] Performed By: #### 4 537-7, 03334-8 #### [facility] CLIA [id number] [address] [place] [address] [place] RBC (Bld) [#/Vol] 3.95 10*6/uL Normal 3.90-5.20 [facility] Comment on above: Order Comment: Speci men Type: BLOOD SPECIMEN Ordering Facility: [facility] Address: [address] [place] [phone] Performed By: #### 4 537-7, 62190-2 #### [facility] CLIA [id number] [address] [place] [address] [place] WBC (Bld) [#/Vol] 14.26 10*3/uL High 3.70-11.00 [facility] Comment on above: Order Comment: Speci men Type: BLOOD SPECIMEN Ordering Facility: [facility] Address: [address] [place] [phone] Performed By: #### 4 537-7, 80087-4 #### [facility] CLIA [id number] [address] [place] [address] [place] CONSULT PROGon 03-13-2023 CONSULT PROG HNO ID: [id number] Author: Robyn Bolton RPh Service: Pharmacy Author [...] there are questions. Robyn Bolton RPh Normal [facility] CONSULT PROG HNO ID: [id number] Author: Ev Pryor RPh Service: Pharmacy Author [...] questions, please contact Ev Pryor RPh at Pg [phone]. Age: [age] year old Allergies: ALLERGIES Allergen [...] Vancomycin Levels: No results found for: CARLY Cabralkrystyna Pryor, [facility] Normal [facility] CRP SerPl-mCncon 03-13-2023 CRP [Mass/Vol] 20.0 mg/dL High <0.9 [facility] Comment on above: Order Comment: Speci men Type: BLOOD SPECIMEN Ordering Facility: [facility] Address: [address] [place] [address] Performed By: #### 4 537-7, 06533-5 #### [facility] CLIA [id number] [address] [place] [address] [place] Comprehensive metabolic 2000 panelon 03-13-2023 Albumin [Mass/Vol] 3.6 g/dL Low 3.9-4.9 [facility] Comment on above: Order Comment: Speci men Type: BLOOD SPECIMEN Ordering Facility: [facility] Address: [address] [place], [place] [id number] Performed By: #### 4 537-7, 40616-2 #### [facility] CLIA [id number] [address] [place] [address] [place] ALP [Catalytic activity/Vol] 101 U/L Normal 34-123 [facility] Comment on above: Order Comment: Speci men Type: BLOOD SPECIMEN Ordering Facility: [facility] Address: [address] Performed By: #### 4 537-7, 36256-9 #### [facility] CLIA [id number] [address] [place] [address] [place] ALT [Catalytic activity/Vol] 22 U/L Normal 7-38 [facility] Comment on above: Order Comment: Speci men Type: BLOOD SPECIMEN Ordering Facility: [facility] Address: [address] Performed By: #### 4 537-7, 46742-7 #### [facility] CLIA [id number] [address] [place] [address] [place] Anion gap [Moles/Vol] 14 mmol/L Normal 9-18 [facility] Comment on above: Order Comment: Speci men Type: BLOOD SPECIMEN Ordering Facility: [facility] Address: [address] Performed By: #### 4 537-7, 50598-5 #### [facility] CLIA [id number] [address] [place] [address] [place] AST [Catalytic activity/Vol] 16 U/L Normal 13-35 [facility] Comment on above: Order Comment: Speci men Type: BLOOD SPECIMEN Ordering Facility: [facility] Address: [address] Performed By: #### 4 537-7, 05978-5 #### [facility] CLIA [id number] [address] [place] [address] [place] Bilirubin [Mass/Vol] 0.2 mg/dL Normal 0.2-1.3 [facility] Comment on above: Order Comment: Speci men Type: BLOOD SPECIMEN Ordering Facility: [facility] Address: [address] Performed By: #### 4 537-7, 96313-0 #### [facility] CLIA [id number] [address] [place] [address] [place] Calcium [Mass/Vol] 8.8 mg/dL Normal 8.5-10.2 [facility] Comment on above: Order Comment: Speci men Type: BLOOD SPECIMEN Ordering Facility: [facility] Address: [address] [place], [place] [phone] Performed By: #### 4 537-7, 10789-4 #### [facility] CLIA [id number] [address] [place] [address] [place] Chloride [Moles/Vol] 103 mmol/L Normal 97-105 [facility] Comment on above: Order Comment: Speci men Type: BLOOD SPECIMEN Ordering Facility: [facility] Address: [address] [place] [address] Performed By: #### 4 537-7, 31736-0 #### [facility] CLIA [id number] [address] [place] [address] [place] CO2 [Moles/Vol] 19 mmol/L Low 22-30 [facility] Comment on above: Order Comment: Speci men Type: BLOOD SPECIMEN Ordering Facility: [facility] Address: [address] [place] [address] Performed By: #### 4 537-7, 52373-2 #### [facility] CLIA [id number] [address] [place] [address] [place] Creatinine [Mass/Vol] 0.77 mg/dL Normal 0.58-0.96 [facility] Comment on above: Order Comment: Speci men Type: BLOOD SPECIMEN Ordering Facility: [facility] Address: [address] [place] [address] Performed By: #### 4 537-7, 84531-3 #### [facility] CLIA [id number] [address] [place] [address] [place] ESTIMATED GLOMERULAR FILTRATION RATE 107 mL/min/1.73m??? Normal >=60 [facility] Comment on above: Order Comment: Speci men Type: BLOOD SPECIMEN Ordering Facility: [facility] Address: [address] [place] [address] Result Comment: Marisa mated Glomerular Filtration Rate [...] actual GFR. Performed By: #### 4 537-7, 99644-9 #### [facility] CLIA [id number] [address] [address] [place] Glucose [Mass/Vol] 126 mg/dL High 74-99 [facility] Comment on above: Order Comment: Tee francisco Type: BLOOD SPECIMEN Ordering Facility: [facility] Address: [address] [place] [address] Result Comment: The [place] Diabetes Association (ADA) provides guidance for cutoff [...] Standards of Medical Care in Diabetes 2016, [place] [employer]. Diabetes Care. 2016.39(Suppl 1). Performed By: #### 4 537-7, 36674-4 #### [facility] CLIA [id number] [address] [place] [address] [place] Potassium [Moles/Vol] 3.3 mmol/L Low 3.7-5.1 [facility] Comment on above: Order Comment: Tee francisco Type: BLOOD SPECIMEN Ordering Facility: [facility] Address: [address] [place] [address] Performed By: #### 4 537-7, 72795-2 #### [facility] CLIA [id number] [address] [address] [place] Protein [Mass/Vol] 6.5 g/dL Normal 6.3-8.0 [facility] Comment on above: Order Comment: Speci men Type: BLOOD SPECIMEN Ordering Facility: [facility] Address: [address] [place], [place] [phone] Performed By: #### 4 537-7, 69991-0 #### [facility] CLIA [id number] [address] [place] [address] [place] Sodium [Moles/Vol] 136 mmol/L Normal 136-144 [facility] Comment on above: Order Comment: Speci men Type: BLOOD SPECIMEN Ordering Facility: [facility] Address: [address] [place] [address] Performed By: #### 4 537-7, 00827-9 #### [facility] CLIA [id number] [address] [place] [address] [place] Urea nitrogen [Mass/Vol] 8 mg/dL Normal 7-21 [facility] Comment on above: Order Comment: Speci men Type: BLOOD SPECIMEN Ordering Facility: [facility] Address: [address] [place] [address] Performed By: #### 4 537-7, 82515-3 #### [facility] CLIA [id number] [address] [place] [address] [place] ED NOTEon 03-13-2023 ED NOTE HNO ID: [id number] Author: Kj Carter RN Service: Emergency Medicine Author Type: Registered Nurse Type: ED Notes Filed: 03/13/2023 11:48 AM Note Text: Pt was to be a tranfers from outside hospital for admission, left AMA because felt that it was taking to long for transfer. Elevated WBC, back pain, nausea and vomiting, no diarrhea, no SOB 8 weeks . Normal [facility] ED PROV NOTEon 03-13-2023 ED PROV NOTE HNO ID: [id number] Author: Kelli Musa MD Service: Emergency Medicine Author Type: Physician Type: ED Provider Notes Filed: 03/13/2023 8:05 PM Note Text: ED Provider Note Patient Name: Qian JULION: [id number] : 1990 SERVICE DATE: 03/13/23 History Patient [...] fevers, she opted to report to the [facility] ED. While there, she was noted to [...] Abnormal; Notable for the following components: Specific [place], Ur 1.032 (*) 1.005 - 1.030 Protein, Urine 1+ (*) Trace, (more content not included)... Normal [facility] ESR Westergren method (Bld) [Velocity]on 03-13-2023 ESR (Bld) [Velocity] 65 mm/h High 0-20 [facility] Comment on above: Order Comment: Speci men Type: BLOOD SPECIMEN Ordering Facility: [facility] Address: [address] [place] [address] Performed By: #### 4 537-7, 60387-2 #### [facility] CLIA [id number] [address] [place] [address] Ferritin SerPl-mCncon 2022 Ferritin [Mass/Vol] 149.0 ng/mL Normal 14.7-205.1 [facility] Comment on above: Order Comment: Speci men Type: BLOOD SPECIMEN Ordering Facility: [facility] Address: [address] [place] [address] Performed By: #### 1 9123-9, 06506-3 #### [facility] CLIA [id number] [address] [place] [address] [place] HISTORY PHYSICALon HISTORY PHYSICAL HNO ID: [id number] Author: Manoj Ramos MD Service: General Internal Medicine Author Type: Physician Type: HANDP Filed: 03/13/2023 8:37 PM Note Text: HISTORY AND PHYSICAL GENERAL INTERNAL MEDICINE After 5 PM on weekdays and after 3 PM on weekends [employer] [phone] Admit Date: 03/13/2023 SERVICE DATE: 03/13/2023 SERVICE [...] flank pain, and she was transferred to [facility] ED. After drawing blood and [...] without mu (more content not included)... Normal [facility] Lipase SerPl-cCncon 03-13-20 23 Lipase [Catalytic activity/Vol] 19 U/L Normal 16-61 [facility] Comment on above: Order Comment: Speci men Type: BLOOD SPECIMEN Ordering Facility: [facility] Address: [address] [place] [address] Performed By: #### 4 537-7, 38921-4 #### [facility] CLIA [id number] [address] [facility] [place] [address] [place] NURSING PROGon 03-13-2023 NURSING PROG HNO ID: [id number] Author: Mini Kaplan RN Service: ? Author Type: Registered Nurse Type: Nursing Progress Note Filed: 03/13/2023 5:11 PM Note Text: Transfer Note: PATIENT NAME: Qian Clements Patient Location: [place] [address] [address] Room: [place] [address] Patient transferred into room/unit [facility] in stable condition. Actions taken: Patient belongings with patient, bed low and locked, side rails up X2, and call light within reach. Normal [facility] Urinalysis complete pnl Uron 03-13-2023 Urinalysis complete [...] j carlos: ORGANISM ID: 1 Lactobacillus jensenii [place] count unreliable due to antimicrobial inhibition No further workup Normal [facility] Comment on above: Order Comment: Speci men Type: URINE SPECIMENOrdering Facility: [facility] Address: [address] [place], [place] [address] Performed By: #### 2 4356-8 ####[facility] [id number] [address] [address] [place] XR CHEST 1V FRONTAL [...] nonenlarged cardiomediastinal silhouette. IMPRESSION: See result. Community Youth Secretary: PSCB Transcribe Date/Time: Mar 13 2023 1:50P Dictated by : YULY GAONA MD This examination was interpreted and the report reviewed and electronically signed by: YULY GAONA MD on Mar 13 2023 1:51PM EST [id number] Normal [facility] CBC with Auto Differentialon 03-07-2023 Basophils (Bld) [#/Vol] 0.00 10*3/uL [facility] Basophils/100 WBC (Bld) 0 % 0 - 2 % [facility] Differential Type YES [facility] Eosinophils (Bld) [#/Vol] 0.00 10*3/uL [facility] Eosinophils/100 WBC (Bld) 0 % 0 - 5 % [facility] Erythrocyte distribution width (RBC) [Ratio] 13.8 % 12.1 - 15.2 % [facility] Hematocrit (Bld) [Volume fraction] 33.9 % Low 36 - 46 % [facility] Hemoglobin (Bld) [Mass/Vol] 11.3 g/dL Low 12.0 - 16.0 g/dL [facility] Interpretation and review of laboratory results Abnormal [facility] Lymphocytes/100 WBC (Bld) 14 % Low 15 - 40 % [facility] Lymphocytes/100 WBC (Bld) 1.30 % [facility] MCH (RBC) [Entitic mass] 27.2 pg 26 - [address] [facility] MCHC (RBC) [Mass/Vol] 33.4 g/dL 31 - 37 g/dL [facility] MCV (RBC) [Entitic vol] 81.4 fL 80 - 100 fL [facility] Monocytes/100 WBC (Bld) 6 % 4 - 8 % [facility] Monocytes/100 WBC (Bld) 0.60 % [facility] Neutrophils/100 WBC (Bld) 80 % High 47 - 75 % [facility] Platelets (Bld) [#/Vol] 407 10*3/uL [facility] RBC (Bld) [#/Vol] 4.17 10*6/uL 4.0 - 5.2 m/uL [facility] Segmented neutrophils/100 WBC (Bld) 7.50 % High [facility] WBC other (Bld) [#/Vol] 9.4 [facility] CMPon 03-07-2023 Albumin [Mass/Vol] 3.8 g/dL 3.5 - 5.2 g/dL [facility] ALP [Catalytic activity/Vol] 81 U/L 35 - 104 U/L [facility] ALT [Catalytic activity/Vol] 8 U/L 5 - 33 U/L [facility] Anion gap [Moles/Vol] 11 mmol/L 9 - 17 mmol/L [facility] AST [Catalytic activity/Vol] 10 U/L NINF - 32 U/L [facility] Bilirubin [Mass/Vol] 0.3 mg/dL 0.3 - 1 .2 mg/dL [facility] Calcium [Mass/Vol] 8.8 mg/dL 8.6 - 10. 4 mg/dL [facility] Chloride [Moles/Vol] 103 mmol/L 98 - 10 7 mmol/L [facility] CO2 [Moles/Vol] 22 mmol/L 20 - 31 mmol/L [facility] Creatinine [Mass/Vol] 0.7 mg/dL 0.5 - 0.9 mg/dL [facility] GFR/1.73 sq M.predicted MDRD (S/P/Bld) [Vol rate/Area] - PINF [facility] Comment on above: These results are [...] 131 mg/dL High 70 - 99 mg/dL [facility] Interpretation and review of laboratory results Abnormal [facility] Potassium [Moles/Vol] 4.1 mmol/L 3.7 - 5.3 mmol/L [facility] Protein [Mass/Vol] 6.7 g/dL 6.4 - 8.3 g/dL [facility] Sodium [Moles/Vol] 136 mmol/L 135 - 144 mmol/L [facility] Urea nitrogen [Mass/Vol] 8 mg/dL 6 - 20 mg/dL [facility] Urea nitrogen/Creatinine [Mass ratio] 11 mg/mg 9 - 20 [facility] Microscopic Urinalysison - [facility] Bacteria LM Ql (Urine sed) RARE Abnormal None [facility] Epithelial cells LM.HPF (Urine sed) [#/Area] 20 TO 50 /HPF [facility] Interpretation and review of laboratory results Abnormal [facility] RBC LM.HPF (Urine sed) [#/Area] 0 TO 2 [facility] WBC LM.HPF (Urine sed) [#/Area] NONE SEEN 0 /HPF [facility] , Urineon HCG ( test) Ql (U) Positive Abnormal NEGATIVE [facility] Comment on above: If HCG results do no t concur with clinical observations, additional testing to confirm result is recommended. This test is not labeled for use as a tumor marker. Interpretation and review of laboratory results Abnormal [facility] Urinalysison 03-07-2023 Bilirubin Ql (U) Negative NEGATIVE [facility] Clarity (U) Clear Clear [facility] Color (U) Yellow Yellow [facility] Comment [facility] Glucose Test strip (U) [Mass/Vol] Negative NEGATIVE mg/dL [facility] Hemoglobin Auto test strip Ql (U) TRACE Abnormal NEGATIVE [facility] Interpretation and review of laboratory results Abnormal [facility] Ketones (U) [Mass/Vol] Negative NEGATIVE mg/dL [facility] Leukocyte esterase Test strip Ql (U) Negative NEGATIVE [facility] Nitrite Ql (U) Negative NEGATIVE [facility] pH (U) 7.0 [pH] 5.0 - 8.0 [facility] Protein (U) [Mass/Vol] Negative NEGATIVE mg/dL [facility] Specific gravity (U) [Rel density] 1.015 1.005 - 1.030 [facility] Urobilinogen Qn (U) Normal 0.0 - 1. 0 EU/dL [facility] US PELVIS AND TRANSVAGon US [...] PILAR DOBSON Date: 2023-01-03 10:47 Normal [facility] Strep Screen Group A Throato n 11-14-2022 S. pyogenes Ag Ql (Throat) Negative NEGATIVE [facility] Comment on above: Rapid Strep A negati ve. A negative Rapid Group A Strep Screen result does not rule out the possibility of Group A Streptococci in the specimen. A Group A Strep DNA test is available upon request. Source .THROAT SWAB [facility] Drug Scr, Abuse, Uron 2021 Amphetamine(s),Ur Negative Normal NEG [facility] Comment on above: Result Comment: (Positive cutoff 1000 ng/mL) Performed By: #### D AU, URTPRT #### [employer] [address] [place] [address] Senior Ui U[employer] Developer: Gino Wing MD Barbiturate(s),Ur Negative Normal NEG [facility] Comment on above: Result Comment: (Positive cutoff 200 ng/mL) Performed By: #### Lydia CALDWELL, URTPRT #### [facility] [address] [place] [id number] Senior Ui U[employer] Developer: Gino Wing MD Benzodiazepine(s) Negative Normal NEG [facility] Comment on above: Result Comment: (Positive cutoff 200 ng/mL) Performed By: #### Lydia CALDWELL, URTPRT #### [facility] [address] [place] [address] Senior Ui U[employer] Developer: Gino Wing MD Cannabinoid(s),Ur Negative Normal NEG [facility] Comment on above: Result Comment: (Positive cutoff 50 ng/mL) Performed By: #### Lydia CALDWELL, URTPRT #### [facility] [address] [place] [address] Senior Ui U[employer] Developer: Gino Wing MD Cocaine Metabolite Negative Normal NEG [facility] Comment on above: Result Comment: (Positive cutoff 300 ng/mL) Performed By: #### Lydia AU, URTPRT #### [employer] [address] [place] [address] Senior Ui U[employer] Developer: Gino Wing MD Fentanyl, Urine Positive Abnormal NEG [facility] Comment on above: Result Comment: (Positive cutoff 5 ng/ml) Performed By: #### Lydia AU, URTPRT #### [employer] [address] [place] [address] Senior Ui U[employer] Developer: Gino Wing MD Interpretive Info Assay provides medic al screening only. The absence of expected drug(s) and/or Normal [facility] Comment on above: Result Comment: meta bolite(s) may indicate diluted or adulterated urine, limitations of testing or timing of collection. Testing for legal purposes should be confirmed by another method. To request confirmation of test result, please call the lab within 7 days of sample submission. Performed By: #### Lydia CALDWELL URTPRT #### [facility] [address] [place] [address] [id number] Senior Ui U[employer] Developer: Gino Wing MD Methadone Ql (U) Negative Normal NEG [facility] Comment on above: Result Comment: (Positive cutoff 300 ng/mL) Performed By: #### Lydia CALDWELL URTPRT #### [address] [address] Senior Ui Ux Developer: Gino Wing MD Opiate(s), Ur Negative Normal NEG [facility] Comment on above: Result Comment: (Positive cutoff 300 ng/mL) Performed By: #### Lydia CALDWELL URTPRT #### [facility] [address] [place] [phone] Senior Ui [employer] Developer: Gino Wing MD Oxycodone, Urine Positive Abnormal NEG [facility] Comment on above: Result Comment: (Positive cutoff 100 ng/mL) Performed By: #### Lydia CALDWELL URTPRT #### [facility] [address] [place] [phone] Senior Ui [employer] Developer: Gino Wing MD Phencyclidine, Ur Negative Normal NEG [facility] Comment on above: Result Comment: (Positive cutoff 25 ng/mL) Performed By: #### Lydia CALDWELL URTPRT #### [facility] [address] [place] [phone] Senior U[employer] Developer: Gino Wing MD SURGICAL PATHOLOGY REPORTon 05-27-2022 [...] SURGICAL PATHOLOGY CONSULTATION Patient Name: QIAN CLEMENTS [facility] Rec: [id number] Path Number: [id number] [facility] ANATOMIC PATHOLOGY [address] [place] [id number] [facility] [employer] CBCon 05-26-2022 Erythrocyte distribution width (RBC) [Ratio] 12.4 % Normal 11.8-14.4 [facility] Comment on above: Performed By: #### C BC, CP #### [employer] [address] [place] [address] Senior U[employer] Developer: Gino Wing MD Hematocrit (Bld) [Volume fraction] 28.6 % Low 36.3-47.1 [facility] Comment on above: Performed By: #### C BC, CP #### [address] [address] Senior Ui [employer] Developer: Gino Wing MD Hemoglobin (Bld) [Mass/Vol] 9.6 g/dL Low 11.9-15.1 [facility] Comment on above: Performed By: #### C BC, CP #### [address] [address] Senior U[employer] Developer: Gino Wing MD MCH (RBC) [Entitic mass] 30.0 pg Normal 25.2-33.5 [facility] Comment on above: Performed By: #### C BC, CP #### [address] [address] Senior [employer] Developer: Gino Wing MD MCHC (RBC) [Mass/Vol] 33.6 g/dL Normal 28.4-34.8 [facility] Comment on above: Performed By: #### C BC, CP #### [address] [address] Senior [employer] Developer: Gino Wing MD MCV (RBC) [Entitic vol] 89.4 fL Normal 82.6-102.9 [facility] Comment on above: Performed By: #### C BC, CP #### [address] [address] Senior U[employer] Developer: Gino Wing MD NRBC Automated 0.0 per 100 WBC Normal 0.0 [facility] Comment on above: Performed By: #### C BC, CP #### [address] [phone] Senior [employer] Developer: Gino Wing MD Platelet mean volume (Bld) [Entitic vol] 9.6 fL Normal 8.1-13.5 [facility] Comment on above: Performed By: #### C BC, CP #### [facility] [address] [place] [address] Senior Ui [employer] Developer: Gino Wing MD Platelets (Bld) [#/Vol] 321 10*3/uL Normal 138-453 [facility] Comment on above: Performed By: #### C DHARA, CP #### [facility] [address] [place] [address] Senior Ui U[employer] Developer: Gino Wing MD RBC (Bld) [#/Vol] 3.20 10*6/uL Low 3.95-5.11 [facility] Comment on above: Performed By: #### C DHARA, CP #### [facility] [place] [address] Senior Ui [employer] Developer: Gino Wing MD WBC (Bld) [#/Vol] 13.1 10*3/uL High 3.5-11.3 [facility] Comment on above: Performed By: #### C DHARA, CP #### [facility] [address] [place] [address] Senior Ui [employer] Developer: Gino Wing MD Hematocrit (Bld) [Volume fraction] 28.6 % Low 36.3 - 47.1 % [facility] Hemoglobin (Bld) [Mass/Vol] 9.6 g/dL Low 11.9 - 15.1 g/dL [facility] Interpretation and review of laboratory results Abnormal [facility] MCH (RBC) [Entitic mass] 30.0 pg 25.2 - 33.5 pg [facility] MCHC (RBC) [Mass/Vol] 33.6 g/dL 28.4 - 34.8 g/dL [facility] MCV (RBC) [Entitic vol] 89.4 fL 82.6 - 102.9 fL [facility] NRBC Automated 0.0 0.0 per 100 WBC [facility] Platelet distribution width (Bld) [Ratio] 12.4 % 11.8 - 14.4 % [facility] Platelet mean volume (Bld) [Entitic vol] 9.6 fL 8.1 - 13.5 fL [facility] [employer] Platelets (Bld) [#/Vol] 321 10*3/uL [facility] [employer] RBC (Bld) [#/Vol] 3.20 10*6/uL Low 3.95 - 5.1 1 m/uL [facility] [employer] WBC (Bld) [#/Vol] 13.1 10*3/uL High [facility] [employer] Comp Metabolic Profon 2021 Bilirubin [Mass/Vol] mg/dL Low 0.3-1.2 [facility] Comment on above: Performed By: #### C BC, CP #### [facility] [employer] [address] [place] [address] Senior U[employer] Developer: Gino Wing MD Albumin [Mass/Vol] 2.4 g/dL Low 3.5-5.2 [facility] Comment on above: Performed By: #### C DHARA, CP #### [facility] [employer] [address] [place] [address] Senior U[employer] Developer: Gino Wing MD Albumin/Glob Ratio 0.9 Low 1.0-2.5 [facility] Comment on above: Performed By: #### C BC, CP #### [facility] [address] [place] [address] Senior [employer] Developer: Gino Wing MD Alkaline Phos 79 U/L Normal 35-104 [facility] Comment on above: Performed By: #### C DHARA, CP #### [facility] [address] [place] [address] Senior [employer] Developer: Gino Wing MD ALT [Catalytic activity/Vol] 10 U/L Normal 5-33 [facility] Comment on above: Performed By: #### C DHARA, CP #### [facility] [address] [place] [address] Senior [employer] Developer: Gino Wing MD Anion gap [Moles/Vol] 12 mmol/L Normal 9-17 [facility] Comment on above: Performed By: #### C BC, CP #### [address] [address] Senior U[employer] Developer: Gino Wing MD AST [Catalytic activity/Vol] 20 U/L Normal <32 [facility] Comment on above: Performed By: #### C BC, CP #### [address] [address] Senior U[employer] Developer: Gino Wing MD Calcium [Mass/Vol] 6.6 mg/dL Low 8.6-10.4 [facility] Comment on above: Performed By: #### C BC, CP #### [address] [address] Senior U[employer] Developer: Gino Wing MD Chloride [Moles/Vol] 101 mmol/L Normal 98-107 [facility] Comment on above: Performed By: #### C BC, CP #### [address] [address] Senior [employer] Developer: Gino Wing MD CO2 [Moles/Vol] 19 mmol/L Low 20-31 [facility] Comment on above: Performed By: #### C BC, CP #### [address] [address] Senior [employer] Developer: Gino Wing MD Creatinine [Mass/Vol] 0.60 mg/dL Normal 0.50-0.90 [facility] Comment on above: Performed By: #### C BC, CP #### [address] [address] Senior U[employer] Developer: Gino Wing MD GFR/1.73 sq M.predicted among non-blacks MDRD (S/P/Bld) [Vol rate/Area] mL/min/{1.73_m2} Normal >60 [facility] Comment on above: Result Comment: Effective May [...] Performed By: #### C BC, CP #### [facility] [address] [address] Senior U[employer] Developer: Gino Wing MD Glucose [Mass/Vol] 103 mg/dL High 70-99 [facility] Comment on above: Performed By: #### C BC, CP #### [address] [address] Senior U[employer] Developer: Gino Wing MD Potassium [Moles/Vol] 4.3 mmol/L Normal 3.7-5.3 [facility] Comment on above: Performed By: #### C BC, CP #### [address] [address] Senior U[employer] Developer: Gino Wing MD Protein [Mass/Vol] 5.2 g/dL Low 6.4-8.3 [facility] Comment on above: Performed By: #### C BC, CP #### [facility] [address] [place] [address] Senior U[employer] Developer: Gino Wing MD Sodium [Moles/Vol] 132 mmol/L Low 135-144 [facility] Comment on above: Performed By: #### C BC, CP #### [facility] [address] [place] [address] Senior U[employer] Developer: Gino Wing MD Urea nitrogen [Mass/Vol] 6 mg/dL Normal 6-20 [facility] Comment on above: Performed By: #### C BC, CP #### [address] [address] Senior U[employer] Developer: Gino Wing MD ALT [Catalytic activity/Vol] U/L Low 5-33 [facility] Comment on above: Performed By: #### C DP, CP #### [address] [address] Senior Ui U[employer] Developer: Gino Wing MD Bilirubin [Mass/Vol] mg/dL Low 0.3-1.2 [facility] Comment on above: Performed By: #### C DP, CP #### [address] [address] Senior U[employer] Developer: Gino Wing MD Albumin [Mass/Vol] 3.1 g/dL Low 3.5-5.2 [facility] Comment on above: Performed By: #### C DP, CP #### [address] [address] Senior U[employer] Developer: Gino Wing MD Albumin/Glob Ratio 1.1 Normal 1.0-2.5 [facility] Comment on above: Performed By: #### C DP, CP #### [address] [address] Senior U[employer] Developer: Gino Wing MD Alkaline Phos 82 U/L Normal 35-104 [facility] Comment on above: Performed By: #### C DP, CP #### [address] [address] Senior [employer] Developer: Gino Wing MD Anion gap [Moles/Vol] 13 mmol/L Normal 9-17 [facility] Comment on above: Performed By: #### C DP, CP #### [address] [address] Senior U[employer] Developer: Gino Wing MD AST [Catalytic activity/Vol] 17 U/L Normal <32 [facility] Comment on above: Performed By: #### C DP, CP #### [address] [address] Senior U[employer] Developer: Gino Wing MD Calcium [Mass/Vol] 6.6 mg/dL Low 8.6-10.4 [facility] Comment on above: Performed By: #### C DP, CP #### [address] [address] Senior U[employer] Developer: Gino Wing MD Chloride [Moles/Vol] 102 mmol/L Normal 98-107 [facility] Comment on above: Performed By: #### C DP, CP #### [address] [address] Senior U[employer] Developer: Gino Wing MD CO2 [Moles/Vol] 19 mmol/L Low 20-31 [facility] Comment on above: Performed By: #### C DP, CP #### [address] [address] Senior Ui U[employer] Developer: Gino Wing MD Creatinine [Mass/Vol] 0.57 mg/dL Normal 0.50-0.90 [facility] Comment on above: Performed By: #### C DP, CP #### [address] [address] Senior U[employer] Developer: Gino Wing MD GFR/1.73 sq M.predicted among non-blacks MDRD (S/P/Bld) [Vol rate/Area] mL/min/{1.73_m2} Normal >60 [facility] Comment on above: Result Comment: Effective May [...] #### C DP, CP #### [facility] [address] [place] [address] Senior Ui U[employer] Developer: Gino Wing MD Glucose [Mass/Vol] 109 mg/dL High 70-99 [facility] Comment on above: Performed By: #### C DP, CP #### [facility] [address] [place] [address] Senior U[employer] Developer: Gino Wing MD Potassium [Moles/Vol] 4.2 mmol/L Normal 3.7-5.3 [facility] Comment on above: Performed By: #### C DP, CP #### [facility] [address] [place] [address] Senior U[employer] U[employer] Developer: Gino Wing MD Protein [Mass/Vol] 6.0 g/dL Low 6.4-8.3 [facility] Comment on above: Performed By: #### C DP, CP #### [facility] [address] [place] [address] Senior Ui [employer] Developer: Gino Wing MD Sodium [Moles/Vol] 134 mmol/L Low 135-144 [facility] Comment on above: Performed By: #### C DP, CP #### [facility] [address] [place] [address] Senior Ui [employer] Developer: Gino Wing MD Urea nitrogen [Mass/Vol] 6 mg/dL Normal 6-20 [facility] Comment on above: Performed By: #### C DP, CP #### [employer] [address] [place] [address] Senior Ui U[employer] Developer: Gino Wing MD Comprehensive Metabolic Pane [facility] 05-26-2022 Albumin [Mass/Vol] 2.4 g/dL Low 3.5 - 5.2 g/dL [facility] Albumin/Globulin [Mass ratio] 0.9 {ratio} Low 1 - 2.5 [facility] ALP (Bld) [Catalytic activity/Vol] 79 U/L 35 - 104 U/L [facility] ALT [Catalytic activity/Vol] 10 U/L 5 - 33 U/L [facility] Anion gap [Moles/Vol] 12 mmol/L 9 - 17 mmol/L [facility] AST [Catalytic activity/Vol] 20 U/L NINF - 32 U/L [facility] Bilirubin [Mass/Vol] mg/dL Low 0.3 - 1 .2 mg/dL [facility] Calcium [Mass/Vol] 6.6 mg/dL Low 8.6 - 10. 4 mg/dL [facility] Chloride [Moles/Vol] 101 mmol/L 98 - 10 7 mmol/L [facility] CO2 [Moles/Vol] 19 mmol/L Low 20 - 31 mmol/L [facility] Creatinine [Mass/Vol] 0.6 mg/dL 0.5 - 0.9 mg/dL [facility] GFR/1.73 sq M.predicted MDRD (S/P/Bld) [Vol rate/Area] - PINF [facility] Comment on above: Effective May [...] 103 mg/dL High 70 - 99 mg/dL [facility] Interpretation and review of laboratory results Abnormal [facility] Potassium [Moles/Vol] 4.3 mmol/L 3.7 - 5.3 mmol/L [facility] Protein [Mass/Vol] 5.2 g/dL Low 6.4 - 8.3 g/dL [facility] Sodium [Moles/Vol] 132 mmol/L Low 135 - 144 mmol/L [facility] Urea nitrogen (BldV) [Mass/Vol] 6 mg/dL 6 - 20 mg/dL [facility] Protein / Creatinine Ratio, Urineon 05-26-2022 Creatinine, Ur 33.9 mg/dL 28 - 217 mg/dL [facility] Interpretation and review of laboratory results Abnormal [facility] Protein (U) [Mass/Vol] 26 mg/dL [facility] Comment on above: No normal range esta blished. Urine Total Protein Creatinine Ratio 0.77 High 0 - 0.2 [facility] Protein,Tot,[place] [facility] 2021 Creatinine [Mass/Vol] 33.9 mg/dL Normal 28.0-217.0 [facility] Comment on above: Performed By: #### Lydia CALDWELL URTPRT #### [facility] [employer] [address] [place] [address] Senior U[employer] Developer: Gino Wing MD Tot Prot. Conc. 26 mg/dL Normal [facility] Comment on above: Result Comment: No n ormal range established. Performed By: #### Lydia CALDWELL URTPRT #### [facility] [employer] [address] [place] [address] Senior U[employer] Developer: Gino Wing MD TP/Cre Ratio 0.77 High 0.00-0.20 [facility] Comment on above: Performed By: #### Lydia CALDWELL URTPRT #### [address] [address] Senior U[employer] Developer: Gino Wing MD T.pallidum Ab Screenon 05-26 T.pallidum Ab Screen Non-Reactive Normal NR [facility] Comment on above: Result Comment: T. pallidum antibodies are not detected. There is no serological evidence of infection with T. pallidum (early primary syphilis cannot be excluded). Retest in 2-4 weeks if syphilis is clinically suspect. Performed By: #### C BC, CP #### [facility] [employer] [address] [place] [phone] Senior U[employer] Developer: Gino Wing MD APTTon 05-25-2022 aPTT Coag (Bld) [Time] 24.7 s Normal 20.5-30.5 [facility] Comment on above: Result Comment: IV Heparin Therapy Range: 48.6-77.8 Performed By: #### C BC, CP #### [address] [phone] Senior [employer] Developer: Gino Wing MD aPTT Coag (Bld) [Time] 24.7 s [facility] Comment on above: IV Heparin Therapy Range: 48.6-77.8 [facility] 05-25-2022 Erythrocyte distribution width (RBC) [Ratio] 12.6 % Normal 11.8-14.4 [facility] Comment on above: Performed By: #### M G, FIB, LD, URI, HAPT, CBC, CP, PTT, PT #### [address] [phone] Senior [employer] Developer: Gino Wing MD Hematocrit (Bld) [Volume fraction] 31.0 % Low 36.3-47.1 [facility] Comment on above: Performed By: #### M G, FIB, LD, URI, HAPT, CBC, CP, PTT, PT #### [address] [address] Senior U[employer] Developer: Gino Wing MD Hemoglobin (Bld) [Mass/Vol] 10.4 g/dL Low 11.9-15.1 [facility] Comment on above: Performed By: #### M G, FIB, LD, URI, HAPT, CBC, CP, PTT, PT #### [address] [phone] Senior [employer] Developer: Gino Wing MD MCH (RBC) [Entitic mass] 29.5 pg Normal 25.2-33.5 [facility] Comment on above: Performed By: #### M G, FIB, LD, URI, HAPT, CBC, CP, PTT, PT #### [address] [address] Senior U[employer] Developer: Gino Wing MD MCHC (RBC) [Mass/Vol] 33.5 g/dL Normal 28.4-34.8 [facility] Comment on above: Performed By: #### M G, FIB, LD, URI, HAPT, CBC, CP, PTT, PT #### [address] [address] Senior U[employer] Developer: Gino Wing MD MCV (RBC) [Entitic vol] 87.8 fL Normal 82.6-102.9 [facility] Comment on above: Performed By: #### M G, FIB, LD, URI, HAPT, CBC, CP, PTT, PT #### [address] [address] Senior U[employer] Developer: Gino Wing MD NRBC Automated 0.0 per 100 WBC Normal 0.0 [facility] Comment on above: Performed By: #### M G, FIB, LD, URI, HAPT, CBC, CP, PTT, PT #### [address] [address] Senior [employer] Developer: Gino Wing MD Platelet mean volume (Bld) [Entitic vol] 9.6 fL Normal 8.1-13.5 [facility] Comment on above: Performed By: #### M G, FIB, LD, URI, HAPT, CBC, CP, PTT, PT #### [address] [address] Senior [employer] Developer: Gino Wing MD Platelets (Bld) [#/Vol] 343 10*3/uL Normal 138-453 [facility] Comment on above: Performed By: #### M G, FIB, LD, URI, HAPT, CBC, CP, PTT, PT #### [address] [address] Senior [employer] Developer: Gino Wing MD RBC (Bld) [#/Vol] 3.53 10*6/uL Low 3.95-5.11 [facility] Comment on above: Performed By: #### M G, FIB, LD, URI, HAPT, CBC, CP, PTT, PT #### [facility] [employer] [address] [place], [place] [phone] Senior U[employer] Developer: Gino Wing MD WBC (Bld) [#/Vol] 13.2 10*3/uL High 3.5-11.3 [facility] Comment on above: Performed By: #### M G, FIB, LD, URI, HAPT, CBC, CP, PTT, PT #### [facility] [employer] [facility] [place], [place] [phone] Senior U[employer] Developer: Gino Wing MD Hematocrit (Bld) [Volume fraction] 31.0 % Low 36.3 - 47.1 % [facility] Hemoglobin (Bld) [Mass/Vol] 10.4 g/dL Low 11.9 - 15.1 g/dL [facility] Interpretation and review of laboratory results Abnormal [facility] MCH (RBC) [Entitic mass] 29.5 pg 25.2 - 33.5 pg [facility] MCHC (RBC) [Mass/Vol] 33.5 g/dL 28.4 - 34.8 g/dL [facility] MCV (RBC) [Entitic vol] 87.8 fL 82.6 - 102.9 fL [facility] [employer] NRBC Automated 0.0 0.0 per 100 WBC [facility] Platelet distribution width (Bld) [Ratio] 12.6 % 11.8 - 14.4 % [facility] Platelet mean volume (Bld) [Entitic vol] 9.6 fL 8.1 - 13.5 fL [facility] Platelets (Bld) [#/Vol] 343 10*3/uL [facility] RBC (Bld) [#/Vol] 3.53 10*6/uL Low 3.95 - 5.1 1 m/uL [facility] WBC (Bld) [#/Vol] 13.2 10*3/uL High [facility] CBC with Auto Differentialon 05-25-2022 Absolute Eos # [facility] Absolute Immature Granulocyte 0.17 [facility] Absolute Lymph # 2.57 [facility] Absolute [place] # 1.40 High [facility] Basophils (Bld) [#/Vol] 0.03 10*3/uL [facility] Basophils/100 WBC (Bld) 0 % 0 - 2 % [facility] Eosinophils/100 WBC (Bld) 0 % Low 1 - 4 % [facility] Hematocrit (Bld) [Volume fraction] 29.8 % Low 36.3 - 47.1 % [facility] Hemoglobin (Bld) [Mass/Vol] 10.1 g/dL Low 11.9 - 15.1 g/dL [facility] Immature granulocytes/100 WBC (Bld) 1 % High 0 [facility] Interpretation and review of laboratory results Abnormal [facility] Lymphocytes/100 WBC (Bld) 15 % Low 24 - 43 % [facility] MCH (RBC) [Entitic mass] 29.8 pg 25.2 - 33.5 pg [facility] MCHC (RBC) [Mass/Vol] 33.9 g/dL 28.4 - 34.8 g/dL [facility] MCV (RBC) [Entitic vol] 87.9 fL 82.6 - 102.9 fL [facility] Monocytes/100 WBC (Bld) 8 % 3 - 12 % [facility] NRBC Automated 0.0 0.0 per 100 WBC [facility] Platelet distribution width (Bld) [Ratio] 12.7 % 11.8 - 14.4 % [facility] Platelet mean volume (Bld) [Entitic vol] 9.4 fL 8.1 - 13.5 fL [facility] Platelets (Bld) [#/Vol] 350 10*3/uL [facility] RBC (Bld) [#/Vol] 3.39 10*6/uL Low 3.95 - 5.1 1 m/uL [facility] Segmented neutrophils/100 WBC (Bld) 76 % High 36 - 65 % [facility] Segs Absolute 12.92 High [facility] WBC (Bld) [#/Vol] 17.1 10*3/uL High [facility] CBC with Diffon 05-25-2022 Abs. Basophil 0.03 k/uL Normal 0.00-0.20 [facility] Comment on above: Performed By: #### C DP, CP #### [facility] [employer] [address] [place] [address] Senior Ui U[employer] Developer: Gino Wing MD Abs. Eosinophil <0.03 Normal 0.00-0.44 [facility] Comment on above: Performed By: #### C DP, CP #### [place] [address] Senior U[employer] Developer: Gino Wing MD Abs.Imm.Granulocyte 0.17 k/uL Normal 0.00-0.30 [facility] Comment on above: Performed By: #### C DP, CP #### [place] [address] Senior Ui [employer] Developer: Gino Wing MD Abs.Neutrophil (Seg) 12.92 k/uL High 1.50-8.10 [facility] Comment on above: Performed By: #### C DP, CP #### [address] [address] Senior U[employer] Developer: Gino Wing MD Basophils/100 WBC (Bld) 0 % Normal 0-2 [facility] Comment on above: Performed By: #### C DP, CP #### [address] [address] Senior U[employer] Developer: Gino Wing MD Eosinophils/100 WBC (Bld) 0 % Low 1-4 [facility] Comment on above: Performed By: #### C DP, CP #### [address] [address] Senior U[employer] Developer: Gino Wing MD Erythrocyte distribution width (RBC) [Ratio] 12.7 % Normal 11.8-14.4 [facility] Comment on above: Performed By: #### C DP, CP #### [address] [address] Senior U[employer] Developer: Gino Wing MD Hematocrit (Bld) [Volume fraction] 29.8 % Low 36.3-47.1 [facility] Comment on above: Performed By: #### C DP, CP #### [address] [address] Senior U[employer] Developer: Gino Wing MD Hemoglobin (Bld) [Mass/Vol] 10.1 g/dL Low 11.9-15.1 [facility] Comment on above: Performed By: #### C DP, CP #### [address] [address] Senior U[employer] Developer: Gino Wing MD Immature granulocytes/100 WBC (Bld) 1 % High 0 [facility] Comment on above: Performed By: #### C DP, CP #### [address] [address] Senior U[employer] Developer: Gino Wing MD Lymphocytes (Bld) [#/Vol] 2.57 10*3/uL Normal 1.10-3.70 [facility] Comment on above: Performed By: #### C DP, CP #### [address] [address] Senior U[employer] Developer: Gino Wing MD Lymphocytes/100 WBC (Bld) 15 % Low 24-43 [facility] Comment on above: Performed By: #### C DP, CP #### [address] [address] Senior [employer] Developer: Gino Wing MD MCH (RBC) [Entitic mass] 29.8 pg Normal 25.2-33.5 [facility] Comment on above: Performed By: #### C DP, CP #### [address] [address] Senior [employer] Developer: Gino Wing MD MCHC (RBC) [Mass/Vol] 33.9 g/dL Normal 28.4-34.8 [facility] Comment on above: Performed By: #### C DP, CP #### [address] [address] Senior [employer] Developer: Gino Wing MD MCV (RBC) [Entitic vol] 87.9 fL Normal 82.6-102.9 [facility] Comment on above: Performed By: #### C DP, CP #### [address] [address] Senior [employer] Developer: Gino Wing MD Monocytes (Bld) [#/Vol] 1.40 10*3/uL High 0.10-1.20 [facility] Comment on above: Performed By: #### C DP, CP #### [address] [address] Senior Ui U[employer] Developer: Gino Wing MD Monocytes/100 WBC (Bld) 8 % Normal 3-12 [facility] Comment on above: Performed By: #### C DP, CP #### [address] [address] Senior U[employer] U[employer] Developer: Gino Wing MD Neutrophil (Seg) 76 % High 36-65 [facility] Comment on above: Performed By: #### C DP, CP #### [address] [address] Senior Ui U[employer] Developer: Gino Wing MD NRBC Automated 0.0 per 100 WBC Normal 0.0 [facility] Comment on above: Performed By: #### C DP, CP #### [address] [address] Senior Ui U[employer] Developer: Gino Wing MD Platelet mean volume (Bld) [Entitic vol] 9.4 fL Normal 8.1-13.5 [facility] Comment on above: Performed By: #### C DP, CP #### [address] [address] Senior U[employer] U[employer] Developer: Gino Wing MD Platelets (Bld) [#/Vol] 350 10*3/uL Normal 138-453 [facility] Comment on above: Performed By: #### C DP, CP #### [address] [address] Senior Ui U[employer] Developer: Gino Wing MD RBC (Bld) [#/Vol] 3.39 10*6/uL Low 3.95-5.11 [facility] Comment on above: Performed By: #### C DP, CP #### [address] [address] Senior Ui U[employer] Developer: Gino Wing MD WBC (Bld) [#/Vol] 17.1 10*3/uL High 3.5-11.3 [facility] Comment on above: Performed By: #### C DP, CP #### [address] [address] Senior Ui U[employer] Developer: Gino Wing MD CT HEAD WO CONTRASTon [...] MD 05/25/22 Final result Normal [facility] No acute intracrania l abnormality. [facility] EXAMINATION: CT OF THE HEAD [...] of the visualized skull or soft tissues. [facility] Dale Barcenas MD - 05/25/2022 [...] soft tissues. IMPRESSION: No acute intracranial abnormality. [facility] [employer] Phone: Radiology Study observation (narrative) [facility] Topio Phone: CT HEAD WO CONTRASTOrdered B y: Dale Barcenas on 05-25-2022 [facility] [employer] Phone: Comp Metabolic Profon 2021 ALT [Catalytic activity/Vol] 5 U/L Normal 5-33 [facility] Comment on above: Performed By: #### C DHARA, CP #### [facility] [address] [place] [address] Senior U[employer] U[employer] Developer: Gino Wing MD Bilirubin [Mass/Vol] mg/dL Low 0.3-1.2 [facility] Comment on above: Performed By: #### C DHARA, CP #### [employer] [address] [place] [address] Senior Ui U[employer] Developer: Gino Wing MD Albumin [Mass/Vol] 3.1 g/dL Low 3.5-5.2 [facility] Comment on above: Performed By: #### C DHARA, CP #### [facility] [address] [place] [address] Senior U[employer] U[employer] Developer: Gino Wing MD Albumin/Glob Ratio 1.0 Normal 1.0-2.5 [facility] Comment on above: Performed By: #### C DHARA, CP #### [facility] [address] [place] [address] Senior U[employer] Developer: Gino Wing MD Alkaline Phos 79 U/L Normal 35-104 [facility] Comment on above: Performed By: #### C BC, CP #### [address] [address] Senior U[employer] Developer: Gino Wing MD Anion gap [Moles/Vol] 12 mmol/L Normal 9-17 [facility] Comment on above: Performed By: #### C BC, CP #### [address] [address] Senior U[employer] U[employer] Developer: Gino Wing MD AST [Catalytic activity/Vol] 9 U/L Normal <32 [facility] Comment on above: Performed By: #### C BC, CP #### [address] [address] Senior U[employer] U[employer] Developer: Gino Wing MD Calcium [Mass/Vol] 6.6 mg/dL Low 8.6-10.4 [facility] Comment on above: Performed By: #### C BC, CP #### [address] [address] Senior U[employer] U[employer] Developer: Gino Wing MD Chloride [Moles/Vol] 103 mmol/L Normal 98-107 [facility] Comment on above: Performed By: #### C BC, CP #### [address] [address] Senior Ui U[employer] Developer: Gino Wing MD CO2 [Moles/Vol] 19 mmol/L Low 20-31 [facility] Comment on above: Performed By: #### C BC, CP #### [address] [address] Senior Ui U[employer] Developer: Gino Wing MD Creatinine [Mass/Vol] 0.46 mg/dL Low 0.50-0.90 [facility] Comment on above: Performed By: #### C BC, CP #### [address] [address] Senior U[employer] U[employer] Developer: Gino Wing MD GFR/1.73 sq M.predicted among non-blacks MDRD (S/P/Bld) [Vol rate/Area] mL/min/{1.73_m2} Normal >60 [facility] Comment on above: Result Comment: Effective May [...] CP #### [facility] [employer] [address] [place] [address] Senior U[employer] U[employer] Developer: Gino Wing MD Glucose [Mass/Vol] 118 mg/dL High 70-99 [facility] Comment on above: Performed By: #### C BC, CP #### [facility] [address] [place] [address] Senior Ui U[employer] Developer: Gino Wing MD Potassium [Moles/Vol] 3.8 mmol/L Normal 3.7-5.3 [facility] Comment on above: Performed By: #### C BC, CP #### [facility] [address] [place] [address] Senior Ui U[employer] Developer: Gino Wing MD Protein [Mass/Vol] 6.2 g/dL Low 6.4-8.3 [facility] Comment on above: Performed By: #### C BC, CP #### [facility] [address] [place] [address] Senior Ui U[employer] Developer: Gino Wing MD Sodium [Moles/Vol] 134 mmol/L Low 135-144 [facility] Comment on above: Performed By: #### C BC, CP #### [employer] [address] [place] [address] Senior U[employer] U[employer] Developer: Gino Wing MD Urea nitrogen [Mass/Vol] 6 mg/dL Normal 6-20 [facility] Comment on above: Performed By: #### C , CP #### [facility] [address] [place] [address] Senior Ui Ux Developer: Gino Wing MD Comprehensive Metabolic Pane ez 05-25-2022 Albumin [Mass/Vol] 3.1 g/dL Low 3.5 - 5.2 g/dL [facility] Albumin/Globulin [Mass ratio] 1.1 {ratio} 1 - 2.5 [facility] ALP (Bld) [Catalytic activity/Vol] 82 U/L 35 - 104 U/L [facility] ALT [Catalytic activity/Vol] U/L Low 5 - 33 U/L [facility] Anion gap [Moles/Vol] 13 mmol/L 9 - 17 mmol/L [facility] AST [Catalytic activity/Vol] 17 U/L NINF - 32 U/L [facility] Bilirubin [Mass/Vol] mg/dL Low 0.3 - 1 .2 mg/dL [facility] Calcium [Mass/Vol] 6.6 mg/dL Low 8.6 - 10. 4 mg/dL [facility] Chloride [Moles/Vol] 102 mmol/L 98 - 10 7 mmol/L [facility] CO2 [Moles/Vol] 19 mmol/L Low 20 - 31 mmol/L [facility] Creatinine [Mass/Vol] 0.57 mg/dL 0.5 - 0.9 mg/dL [facility] GFR/1.73 sq M.predicted MDRD (S/P/Bld) [Vol rate/Area] - PINF [facility] Comment on above: Effective May [...] 109 mg/dL High 70 - 99 mg/dL [facility] Interpretation and review of laboratory results Abnormal [facility] Potassium [Moles/Vol] 4.2 mmol/L 3.7 - 5.3 mmol/L [facility] Protein [Mass/Vol] 6.0 g/dL Low 6.4 - 8.3 g/dL [facility] Sodium [Moles/Vol] 134 mmol/L Low 135 - 144 mmol/L [facility] Urea nitrogen (BldV) [Mass/Vol] 6 mg/dL 6 - 20 mg/dL [facility] Albumin [Mass/Vol] 3.1 g/dL Low 3.5 - 5.2 g/dL [facility] Albumin/Globulin [Mass ratio] 1.0 {ratio} 1 - 2.5 [facility] ALP (Bld) [Catalytic activity/Vol] 79 U/L 35 - 104 U/L [facility] ALT [Catalytic activity/Vol] 5 U/L 5 - 33 U/L [facility] Anion gap [Moles/Vol] 12 mmol/L 9 - 17 mmol/L [facility] AST [Catalytic activity/Vol] 9 U/L NINF - 32 U/L [facility] Bilirubin [Mass/Vol] mg/dL Low 0.3 - 1 .2 mg/dL [facility] Calcium [Mass/Vol] 6.6 mg/dL Low 8.6 - 10. 4 mg/dL [facility] Chloride [Moles/Vol] 103 mmol/L 98 - 10 7 mmol/L [facility] CO2 [Moles/Vol] 19 mmol/L Low 20 - 31 mmol/L [facility] Creatinine [Mass/Vol] 0.46 mg/dL Low 0.5 - 0.9 mg/dL [facility] GFR/1.73 sq M.predicted MDRD (S/P/Bld) [Vol rate/Area] - PINF [facility] Comment on above: Effective May [...] 118 mg/dL High 70 - 99 mg/dL [facility] Interpretation and review of laboratory results Abnormal [facility] Potassium [Moles/Vol] 3.8 mmol/L 3.7 - 5.3 mmol/L [facility] Protein [Mass/Vol] 6.2 g/dL Low 6.4 - 8.3 g/dL [facility] Sodium [Moles/Vol] 134 mmol/L Low 135 - 144 mmol/L [facility] Urea nitrogen (BldV) [Mass/Vol] 6 mg/dL 6 - 20 mg/dL [facility] Fibrinogenon 05-25-2022 Fibrinogen 367 mg/dL Normal 140-420 [facility] Comment on above: Performed By: #### C BC, CP #### [employer] [facility] [place], [place] [id number] Senior Ui Ux Developer: Gino Wing MD Fibrinogen 367 mg/dL 140 - 420 mg/dL [facility] Haptoglobinon 05-25-2022 Haptoglobin 159 mg/dL Normal 30-200 [facility] Comment on above: Performed By: #### M G, FIB, LD, URI, HAPT, CBC, CP, PTT, PT #### [employer] [facility] [place], [place] [phone] Senior Ui U[employer] Developer: Gino Wing MD Haptoglobin 159 mg/dL 30 - 200 mg/dL [facility] Lactate Dehydrogenaseon LDH [Catalytic activity/Vol] 118 U/L Low 135-214 [facility] Comment on above: Performed By: #### M G, FIB, LD, URI, HAPT, CBC, CP, PTT, PT #### [employer] [facility] [place], [place] [id number] Senior Ui U[employer] Developer: Gino Wing MD Interpretation and review of laboratory results Abnormal [facility] Venuetastic LD 118 U/L Low 135 - 214 U/L [facility] MAGNESIUM DRIP MONITORon Magnesium [Mass/Vol] 5.0 mg/dL Normal 3.6-6.8 [facility] Comment on above: Performed By: #### U RCX #### [facility] [address] [place] [address] Dr. Elda Velasquez Magnesiumon 05-25-2022 Magnesium [Mass/Vol] 5.0 mg/dL High 1.6-2.6 [facility] Comment on above: Performed By: #### C BC, CP #### [facility] [address] [place], [place] [phone] Senior Ui Ux Developer: Gino Wing MD Interpretation and review of laboratory results Abnormal [facility] Magnesium [Mass/Vol] 5.0 mg/dL High 1.6 - 2 .6 mg/dL [facility] [employer] No Panel Informationon 05-25 [facility] PTon 05-25-2022 INR Coag (PPP) [Relative time] 0.9 {INR} Normal [facility] Comment on above: Result Comment: Therapeutic Range: Moderate Anticoagulant Intensity: INR = 2.0-3.0 High Anticoagulant Intensity: INR = 2.5-3.5 Performed By: #### C BC, CP #### [facility] [address] [place], [place] [phone] Senior Ui Ux Developer: Gino Wing MD PT Coag (PPP) [Time] 9.4 s Normal 9.1-12.3 [facility] Comment on above: Performed By: #### C BC, CP #### [facility] [address] [place], [place] [phone] Senior Ui Ux Developer: Gino Wing MD Protime-INRon 05-25-2022 INR Coag (Bld) [Relative time] 0.9 {INR} [facility] Comment on above: Therapeutic Range: Moderate Anticoagulant Intensity: INR = 2.0-3.0 High Anticoagulant Intensity: INR = 2.5-3.5 PT Coag (PPP) [Time] 9.4 s [facility] Surgical Pathologyon 022 Surgical Pathology [...] SURGICAL PATHOLOGY CONSULTATION Patient Name: QIAN CLEMENTS Nguyễn [facility] Rec: [id number] Path Number: [id number] [facility] ANATOMIC PATHOLOGY [address] [place] [address]. [place], [place] [address] Normal [facility] Comment on above: Performed By: #### C BC, CP #### [employer] [address] [place] [address] Senior Ui Ux Developer: Gino Wing MD T. pallidum Abon 05-25-2022 T. pallidum, IgG Non-Reactive NONREACTIVE [facility] [employer] [facility] [employer] Comment on above: T. pallidum antibodies are not detected. There is no serological evidence of infection with T. pallidum (early primary syphilis cannot be excluded). Retest in 2-4 weeks if syphilis is clinically suspect. [facility] Options [employer] TYPE AND SCREENon 05-25-2022 ABO/Rh Positive [facility] [employer] Arm Band Number BE [id number] [facility] [employer] Expiration Date 05/28/2022,235 [facility] [employer] Type + Screenon 05-25-2022 Type + Screen Sample Expiration 05/28/2022,2359 Arm Band Number BE [id number] ABO/Rh(D) O POSITIVE Antibody Screen NEGATIVE Normal [facility] Comment on above: Performed By: #### T YS #### [employer] [address] [place] [address] Senior Ui U[employer] Developer: Gino Wing MD US PREG BIOPHY W [...] by: AARON DELACRUZ Date: 2022-05-25 07:12 Normal [facility] US PREG GROWTHon 05-25-2022 US PREG GROWTH [...] AARON DELACRUZ Date: 2022-05-25 07:27 Normal [facility] Uric Acidon 05-25-2022 Urate [Mass/Vol] 3.8 mg/dL Normal 2.4-5.7 [facility] Comment on above: Performed By: #### C BC, CP #### [facility] [employer] [facility] [place], [place] [phone] Senior Ui U[employer] Developer: Gino Wing MD Urate [Mass/Vol] 3.8 mg/dL 2.4 - 5.7 mg/dL [facility] CBC AUTO DIFFon 05-24-2022 BASO # 0.0 103/ul Normal 0.0-0.1 [facility] Comment on above: Performed By: #### C BC #### [facility] [address] [place] [address] Dr. Elda Velasquez Basophils/100 WBC (Bld) 0.3 % Normal 0.2-2.0 [facility] Comment on above: Performed By: #### C BC #### [facility] [address] [place] [address] Dr. Elda Velasquez EO # 0.0 103/ul Normal 0.0-0.7 [facility] Comment on above: Performed By: #### C BC #### [facility] [address] [place] [address] Dr. Elda Velasquez Eosinophils/100 WBC (Bld) 0.2 % Critically low 0.9-7.0 [facility] Comment on above: Performed By: #### C BC #### [facility] [address] [place] [address] Dr. Elda Velasquez Erythrocyte distribution width (RBC) [Ratio] 12.3 % Normal 11.0-15.0 [facility] Comment on above: Performed By: #### C BC #### [facility] [address] [place] [address] Dr. Elda Velasquez Hematocrit (Bld) [Volume fraction] 31.5 % Critically low 36.0-48.0 [facility] Comment on above: Performed By: #### C BC #### [facility] [address] [place] [address] Dr. Elda Velasquez Hemoglobin (Bld) [Mass/Vol] 10.2 g/dL Critically low 12.0-16.0 [facility] Comment on above: Performed By: #### C BC #### [facility] [address] [place] [address] Dr. Elda Velasquez IG # 0.16 10e3/ul Critically high 0.00-0.03 [facility] [place] Comment on above: Performed By: #### C BC #### [facility] [address] [place] [address] Dr. Elda Velasquez IG % 1.3 % Critically high 0.0-0.5 [facility] Comment on above: Performed By: #### C BC #### [facility] [address] [place] [address] Dr. Elda Velasquez LYMPH # 2.1 103/ul Normal 1.2-3.8 [facility] Comment on above: Performed By: #### C BC #### [facility] [address] [place] [address] Dr. Elda Velasquez Lymphocytes/100 WBC (Bld) 17.1 % Critically low 20.5-60.0 [facility] Comment on above: Performed By: #### C BC #### [facility] [address] [place] [address] Dr. Elda Velasquez MANUAL DIFF REQ NO Normal [facility] Comment on above: Performed By: #### C BC #### [facility] [address] [place] [address] Dr. Elda Velasquez MCH (RBC) [Entitic mass] 29.0 pg Normal 26.7-34.0 [facility] Comment on above: Performed By: #### C BC #### [facility] [address] [place] [address] Dr. Elda Velasquez MCHC (RBC) [Mass/Vol] 32.4 g/dL Normal 29.9-35.2 [facility] Comment on above: Performed By: #### C BC #### [facility] [address] [place] [address] Dr. Elda Velasquez MCV (RBC) [Entitic vol] 89.5 fL Normal 81.0-99.0 [facility] Comment on above: Performed By: #### C BC #### [facility] [address] [place] [address] Dr. Elda Velasquez MONO # 0.9 103/ul Critically high 0.3-0.8 [facility] Comment on above: Performed By: #### C BC #### [facility] [address] [place] [address] Dr. Elda Velasquez Monocytes/100 WBC (Bld) 7.1 % Normal 1.7-12.0 [facility] Comment on above: Performed By: #### C BC #### [facility] [address] [place] [address] Dr. Elda Velasquez NEUT # 8.9 103/ul Critically high 1.4-6.5 [facility] Comment on above: Performed By: #### C BC #### [facility] [address] [place] [address] Dr. Elda Velasquez Neutrophils/100 WBC (Bld) 74.0 % Normal 43.0-75.0 [facility] Comment on above: Performed By: #### C BC #### [facility] [address] [place] [address] Dr. Elda Velasquez Platelet mean volume (Bld) [Entitic vol] 9.4 fL Critically low 9.5-13.5 [facility] Comment on above: Performed By: #### C BC #### [facility] [address] [place] [address] [address] [address] Elda Velasquez PLT 340 103/ul Normal 150-450 [facility] Comment on above: Performed By: #### C BC #### [facility] [address] [place], [place] [id number] Dr. Elda Velasquez RBC 3.52 106/ul Critically low 4.20-5.40 [facility] Comment on above: Performed By: #### C BC #### [facility] [address] [place], [place] [id number] Dr. Elda Velasquez WBC 12.0 103/ul Critically high 4.0-11.0 [facility] Comment on above: Performed By: #### C BC #### [facility] [address] [place] [address] Dr. Elda Velasquez CTA CHEST WO W [...] by: MARGOT LAU Date: 2022-05-24 19:33 Normal [facility] LDHon 05-24-2022 LDH 90 U/L Normal 81-234 [facility] Comment on above: Performed By: #### U JUAN F, LDH, CMP #### [facility] [address] [address] [address] Elda Velasquez PROF 14(COMP METB)on 022 Albumin [Mass/Vol] 2.3 g/dL Critically low 3.4-5.0 [facility] Comment on above: Performed By: #### U JUAN F, LDH, CMP #### [facility] [address] [address] [address] Elda Velasquez Albumin/Globulin [Mass ratio] 0.6 {ratio} Normal [facility] Comment on above: Performed By: #### U JUAN F, LDH, CMP #### [facility] [address] [address] [address] Elda Velasquez ALP [Catalytic activity/Vol] 87 U/L Normal 46-116 [facility] Comment on above: Performed By: #### U JUAN F, LDH, CMP #### [facility] [address] [address] [address] Elda Velasquez ALT [Catalytic activity/Vol] 11 U/L Critically low 14-59 [facility] Comment on above: Performed By: #### U JUAN F, LDH, CMP #### [facility] [address] [address] [address] Elda Velasquez Anion gap [Moles/Vol] 13.3 mmol/L Normal [facility] Comment on above: Performed By: #### U JUAN F, LDH, CMP #### [facility] [address] [address] [address] Elda Velasquez AST [Catalytic activity/Vol] 5 U/L Critically low 15-37 [facility] Comment on above: Performed By: #### U JUAN F, LDH, CMP #### [facility] [address] [address] [address] Elda Velasquez Bilirubin [Mass/Vol] 0.1 mg/dL Critically low 0.2-1.0 [facility] Comment on above: Performed By: #### U JUAN F, LDH, CMP #### [facility] [address] [address] [address] Elda Velasquez Calcium [Mass/Vol] 8.3 mg/dL Critically low 8.5-10.1 [facility] Comment on above: Performed By: #### U JUAN F, LDH, CMP #### [facility] [address] [place] [address] Dr. Elda Velasquez Chloride [Moles/Vol] 106 mmol/L Normal 98-107 [facility] Comment on above: Performed By: #### U JUAN F, LDH, CMP #### [facility] [address] [place] [address] Dr. Elda Velasquez CO2 [Moles/Vol] 22.5 mmol/L Normal 21.0-32.0 [facility] Comment on above: Performed By: #### U JUAN F, LDH, CMP #### [facility] [address] [place] [address] Dr. Elda Velasquez Creatinine [Mass/Vol] 0.72 mg/dL Normal 0.55-1.02 [facility] Comment on above: Performed By: #### U JUAN F, LDH, CMP #### [facility] [address] [place] [address] Dr. Elda Velasquez EGFR-AF ZIMBABWEAN >60 Normal >=60 [facility] Comment on above: Performed By: #### U JUAN F, LDH, CMP #### [facility] [address] [place] [address] Dr. Elda Velasquez EGFR-NON AF ZIMBABWEAN >60 Normal >=60 [facility] Comment on above: Performed By: #### U JUAN F, LDH, CMP #### [facility] [address] [place] [address] Dr. Elda Velasquez Globulin (S) [Mass/Vol] 3.7 g/dL Normal [facility] Comment on above: Performed By: #### U JUAN F, LDH, CMP #### [facility] [address] [place] [address] Dr. Elda Velasquez Glucose [Mass/Vol] 135 mg/dL Critically high 74-[address] [facility] Comment on above: Performed By: #### U JUAN F, LDH, CMP #### [facility] [address] [place] [address] Dr. Elda Velasquez Potassium [Moles/Vol] 3.8 mmol/L Normal 3.5-5.1 [facility] Comment on above: Performed By: #### U JUAN F, LDH, CMP #### [facility] [address] [place] [address] Dr. Elda Velasquez Protein [Mass/Vol] 6.0 g/dL Critically low 6.4-8.2 [facility] Comment on above: Performed By: #### U JUAN F, LDH, CMP #### [facility] [address] [place] [address] Dr. Elda Velasquez Sodium [Moles/Vol] 138 mmol/L Normal 136-[address] [facility] Comment on above: Performed By: #### U JUAN F, LDH, CMP #### [facility] [address] [place] [address] Dr. Elda Velasquez Urea nitrogen [Mass/Vol] 6.0 mg/dL Critically low 7.0-18.0 [facility] Comment on above: Performed By: #### U JUAN F, LDH, CMP #### [facility] [address] [place] [address] Dr. Elda Velasquez Urea nitrogen/Creatinine [Mass ratio] 8.3 mg/mg Normal [facility] Comment on above: Performed By: #### U JUAN F, LDH, CMP #### [facility] [address] [place] [address] Dr. Elda Velasquez UA (CLEAN/CATCH) GROUP INSURANCE SPECIAL AGENT/MICRO I F IND.on 05-24-2022 Bilirubin Ql (U) Negative Normal NEGATIVE [facility] [facility] Comment on above: Performed By: #### U RCX #### [facility] [address] [address] [address] Elda Velasquez Clarity (U) CLEAR Normal CLEAR [facility] Comment on above: Performed By: #### U RCX #### [facility] [address] [place] [address] Dr. Elda Velasquez Color (U) LT. YELLOW Normal YELLOW [facility] Comment on above: Performed By: #### U RCX #### [facility] [address] [address] [address] Elda Velasquez Glucose Ql (U) Negative Normal NEGATIVE [facility] Comment on above: Performed By: #### U RCX #### [facility] [address] [place] [address] Dr. Elda Velasquez Hemoglobin Ql (U) Negative Normal NEGATIVE [facility] [place] Comment on above: Performed By: #### U RCX #### [facility] [address] [place] [address] Dr. Elda Velasquez Ketones Ql (U) Negative Normal NEGATIVE [facility] Comment on above: Performed By: #### U RCX #### [facility] [address] [place] [address] Dr. Elda Velasquez LEUKOCYTES Negative Normal NEGATIVE [facility] Comment on above: Performed By: #### U RCX #### [facility] [address] [place] [address] Dr. Elda Velasquez Nitrite Ql (U) Negative Normal NEGATIVE [facility] Comment on above: Performed By: #### U RCX #### [facility] [address] [place] [address] Dr. Elda Velasquez pH (U) 7.0 [pH] Normal 5-9 [facility] Comment on above: Performed By: #### U RCX #### [facility] [address] [place] [address] Dr. Elda Velasquez SPEC GRAVITY 1.010 Normal 1.005-<=1.025 [facility] Comment on above: Performed By: #### U RCX #### [facility] [address] [place] [address] Dr. Elda Velasquez UA PROTEIN Negative Normal NEGATIVE/ TRACE [facility] Comment on above: Performed By: #### U RCX #### [facility] [address] [place] [address] Dr. Elda Velasquez UR MICRO IND NOT INDICATED Normal [facility] Comment on above: Performed By: #### U RCX #### [facility] [address] [place] [address] Dr. Elda Velasquez Urobilinogen Qn (U) 0.2 {Caroline'U}/dL Normal 0.2 - 1. 0 [facility] Comment on above: Performed By: #### U RCX #### [facility] [address] [place] [address] Dr. Elda Velasquez URIC ACID SERUMon 05-24-2022 Urate [Mass/Vol] 3.8 mg/dL Normal 2.6-6.0 [facility] Comment on above: Performed By: #### U JUAN F, LDH, CMP #### [facility] [address] [place] [address] Dr. Elda Velasquez US PREG CERVICAL LENGTHon US PREG CERVICAL LENGTH EXAMINATION: US PREG CERVICAL LENGTH HISTORY: Premature uterine contraction COMPARISON: No relevant comparison available. FINDINGS: position: Cephalic presentation, longitudinal lie Amniotic fluid volume: Subjectively normal Cervix: 4.5 cm], closed Heart rate: 144 bpm IMPRESSION: Closed cervix measuring 4.5 cm Electronically authenticated by: AARON DELACRUZ Date: 2022-05-24 11:52 Normal [facility] CULTURE URINEon 05-23-2022 CULTURE URINE Culture Observations : LIGHT GROWTH OF MIXED GENITAL J CARLOS. NO POTENTIAL PATHOGENS SEEN. Normal [facility] Comment on above: Performed By: #### U RCX #### [facility] [address] [place] [address] Dr. Elda Velasquez UA (CLEAN/CATCH) GROUP INSURANCE SPECIAL AGENT/MICRO I F IND.on 05-23-2022 Bilirubin Ql (U) Negative Normal NEGATIVE [facility] Comment on above: Performed By: #### U RCX #### [facility] [address] [place] [address] Dr. Elda Velasquez Clarity (U) SL CLOUDY Abnormal CLEAR [facility] Comment on above: Performed By: #### U RCX #### [facility] [address] [address] [address] Elda Velasquez Color (U) LT. YELLOW Normal YELLOW [facility] Comment on above: Performed By: #### U RCX #### [facility] [address] [address] [address] Elda Velasquez Glucose Ql (U) Negative Normal NEGATIVE [facility] Comment on above: Performed By: #### U RCX #### [facility] [address] [place] [address] Dr. Elda Velasquez Hemoglobin Ql (U) TRACE-INTACT Abnormal NEGATIVE [facility] Comment on above: Performed By: #### U RCX #### [facility] [address] [place] [address] Dr. Elda Velasquez Ketones Ql (U) Negative Normal NEGATIVE [facility] Comment on above: Performed By: #### U RCX #### [facility] [address] [place] [address] Dr. Elda Velasquez LEUKOCYTES TRACE Abnormal NEGATIVE [facility] Comment on above: Performed By: #### U RCX #### [facility] [address] [address] [address] Elda Velasquez Nitrite Ql (U) Positive Abnormal NEGATIVE [facility] Comment on above: Performed By: #### U RCX #### [facility] [address] [place] [address] Dr. Elda Velasquez pH (U) 7.0 [pH] Normal 5-9 [facility] Comment on above: Performed By: #### U RCX #### [facility] [address] [address] [address] Elda Velasquez SPEC GRAVITY 1.015 Normal 1.005-<=1.025 [facility] Comment on above: Performed By: #### U RCX #### [facility] [address] [place] [address] Dr. Elda Velasquez UA PROTEIN Negative Normal NEGATIVE/ TRACE [facility] Comment on above: Performed By: #### U RCX #### [facility] [address] [place] [address] Dr. Elda Velasquez UR MICRO IND INDICATED Normal [facility] Comment on above: Performed By: #### U RCX #### [facility] [address] [place] [address] Dr. Elda Velasquez Urobilinogen Qn (U) 1.0 {Caroline'U}/dL Normal 0.2 - 1. 0 [facility] Comment on above: Performed By: #### U RCX #### [facility] [address] [place] [address] Dr. Elda Velasquez URINE MICROSCOPIC ONLYon BACTERIA SMALL Abnormal NONE SEEN [facility] Comment on above: Performed By: #### U RCX #### [facility] [address] [place] [address] Dr. Elda Velasquez Bacteria identified Cx Nom (U) INDICATED Normal [facility] Comment on above: Performed By: #### U RCX #### [facility] [address] [place] [address] Dr. Elda Velasquez CAST NONE SEEN Normal NONE SEEN [facility] Comment on above: Performed By: #### U RCX #### [facility] [address] [place] [address] Dr. Elda Velasquez Crystals LM Nom (Urine sed) NONE SEEN Normal NONE SEEN [facility] Comment on above: Performed By: #### U RCX #### [facility] [address] [place] [address] Dr. Elda Velasquez Epithelial cells LM Ql (Urine sed) MODERATE Abnormal NONE SEEN /RARE [facility] Comment on above: Performed By: #### U RCX #### [facility] [address] [place] [address] Dr. Elda Velasquez MUCOUS TRACE Abnormal NONE SEEN [facility] Comment on above: Performed By: #### U RCX #### [facility] [address] [place] [address] Dr. Elda Velasquez RBC 2-5 Abnormal 0-2 [facility] Comment on above: Performed By: #### U RCX #### [facility] [address] [place], [place] [address] Dr. Elda Velasquez WBC 2-5 Abnormal NONE SEEN [facility] Comment on above: Performed By: #### U RCX #### [facility] [address] [place], [place] [address] Dr. Elda Velasquez US PREG ANATOMY SINGLEon [...] PILAR DOBSON Date: 2022-05-04 16:28 Normal [facility] Microscopic UrinalysisOrdere d By: Pilar Garcia on 09-19-2019 - [employer] Phone: Amorphous, UA NOT REPORTED None [employer] [facility] Work Phone: Bacteria, UA 1+ Abnormal None [employer] Work Phone: Casts UA NOT REPORTED /LPF [employer] Work Phone: Crystals UA CALCIUM OXALATE Abnormal None /HPF [facility] Work Phone: Crystals UA 1+ Abnormal None /HPF [employer] Work Phone: Epithelial Cells UA 10 TO 20 /HPF [employer] Work Phone: Interpretation and review of laboratory results Abnormal [employer] Work Phone: Mucus, UA NOT REPORTED None [employer] Work Phone: Other Observations UA NOT REPORTED NOT REQ. [employer] Work Phone: RBC, UA 2 TO 5 [employer] Work Phone: Renal Epithelial, Urine NOT REPORTED 0 /HPF [employer] Work Phone: Trichomonas, UA NOT REPORTED None [facility] Work Phone: WBC, UA 0 TO 2 0 /HPF [employer] Work Phone: Yeast, UA NOT REPORTED None [employer] Work Phone: UrinalysisOrdered By: Pilar Garcia on 09-19-2019 Bilirubin Urine Negative NEGATIVE [facility] Work Phone: Color, UA YELLOW YELLOW [employer] Work Phone: Glucose, Ur Negative NEGATIVE [employer] Work Phone: Interpretation and review of laboratory results Abnormal [employer] Work Phone: Ketones Ql (U) Negative NEGATIVE [employer] Work Phone: Leukocyte esterase Test strip Ql (U) Negative NEGATIVE [employer] Work Phone: Nitrite, Urine Negative NEGATIVE [facility] Work Phone: pH, UA 6.0 [facility] Work Phone: Protein, UA TRACE Abnormal NEGATIVE [facility] [employer] Phone: Specific [place], UA 1.025 [employer] Phone: Turbidity UA HAZY Abnormal CLEAR [employer] Work Phone: Urinalysis Comments [employer] Phone: Urine Hgb TRACE Abnormal NEGATIVE [facility] [employer] Phone: Urobilinogen, Urine Normal Normal [facility] [employer] Phone: CBC Auto Differentialon 04-22 Basophils (Bld) [#/Vol] 0.00 10*3/uL [place] Basophils/100 WBC (Bld) 0 % 0 - 2 % [place] Differential Type [place] Eosinophils (Bld) [#/Vol] 0.10 10*3/uL [place] Eosinophils/100 WBC (Bld) 1 % 0 - 5 % [place] Erythrocyte distribution width (RBC) [Ratio] 13.6 % 12.1 - 15.2 % [place] Hematocrit (Bld) [Volume fraction] 37.7 % 36 - 46 % [place] Hemoglobin (Bld) [Mass/Vol] 12.8 g/dL 12 - 16 g/dL [place] Interpretation and review of laboratory results Abnormal [place] Lymphocytes (Bld) [#/Vol] 1.90 10*3/uL [place] Lymphocytes/100 WBC (Bld) 20 % 15 - 40 % [place] MCH (RBC) [Entitic mass] 29.1 pg 26 - 34 pg [place] MCHC (RBC) [Mass/Vol] 34.0 g/dL 31 - 37 g/dL [place] MCV (RBC) [Entitic vol] 85.7 fL 80 - 100 fL [place] Monocytes (Bld) [#/Vol] 0.40 10*3/uL [place] Monocytes/100 WBC (Bld) 5 % 4 - 8 % [place] Platelet mean volume (Bld) [Entitic vol] NOT REPORTED 6 - 12 fL [place] Platelets (Bld) [#/Vol] NOT REPORTED [place] Platelets (Bld) [#/Vol] 378 10*3/uL [place] RBC (Bld) [#/Vol] 4.40 10*6/uL 4 - 5.2 m/uL [place] RBC morphology finding Nom (Bld) NOT REPORTED [place] Segmented neutrophils/100 WBC (Bld) 74 % 47 - 75 % [place] Segs Absolute 7.20 [place] WBC (Bld) [#/Vol] NOT REPORTED per 100 WBC [place] WBC (Bld) [#/Vol] 9.7 10*3/uL [place] WBC Morphology NOT REPORTED [place] Comprehensive Metabolic Pane l w/ Reflex to MGon 05-06-2019 Albumin [Mass/Vol] 3.9 g/dL 3.5 - 5.2 g/dL [place] Albumin/Globulin [Mass ratio] NOT REPORTED [place] ALP [Catalytic activity/Vol] 84 U/L 35 - 104 U/L [place] ALT [Catalytic activity/Vol] 14 U/L 5 - 33 U/L [place] Anion gap [Moles/Vol] 13 mmol/L 9 - 17 mmol/L [place] AST [Catalytic activity/Vol] 14 U/L <32 [place] Bilirubin Ql (U) 0.34 mg/dL 0.3 - 1.2 mg/dL [place] Bun/Cre Ratio 16 [place], [place] Calcium [Mass/Vol] 9.6 mg/dL 8.6 - 10. 4 mg/dL [place] Chloride [Moles/Vol] 102 mmol/L 98 - 10 7 mmol/L [place] CO2 [Moles/Vol] 23 mmol/L 20 - 31 mmol/L [place] Creatinine [Mass/Vol] 0.61 mg/dL 0.5 - 0.9 mg/dL [place] GFR >60 >60 mL/min [place] GFR Non- >60 >60 mL/min [place] GFR/1.73 sq M predicted among non-blacks MDRD (S/P/Bld) [Vol rate/Area] NOT REPORTED [place] GFR/1.73 sq M predicted among non-blacks MDRD (S/P/Bld) [Vol rate/Area] [place] Comment on above: Average GFR for 20-2 9 years old: 116 mL/min/1.73sq m Chronic Kidney Disease: <60 mL/min/1.73sq m Kidney failure: <15 mL/min/1.73sq m eGFR calculated using average adult body mass. Additional eGFR calculator available at: http://www.[employer] [facility]/multiple_crcl_2012.htm Glucose [Mass/Vol] 101 mg/dL High 70 - 99 mg/dL [place] Interpretation and review of laboratory results Abnormal [place] Potassium [Moles/Vol] 4.2 mmol/L 3.7 - 5.3 mmol/L [place] Protein [Mass/Vol] 6.8 g/dL 6.4 - 8.3 g/dL [place] Sodium [Moles/Vol] 138 mmol/L 135 - 144 mmol/L [place] Urea nitrogen [Mass/Vol] 10 mg/dL 6 - 20 mg/dL [place] Otheron 05-06-2019 Immature granulocytes (Bld) [#/Vol] NOT REPORTED 0 % [place] Sedimentation Rateon 019 Sed Rate 23 mm 0 - 30 mm [place] Strep Screen Group A Throato n 05-06-2019 S. pyogenes Ag IA Ql (Unsp spec) Rapid Strep A negative. A negative Rapid Group A Strep Screen result does not rule out the possibility of Group A Streptococci in the specimen. A Group A Strep DNA test is available upon request. [place] Special Requests NOT REPORTED [place] Specimen Description .THROAT [place] Urinalysis, reflex to micros copicon 05-06-2019 Bilirubin Urine Negative NEGATIVE [facility] [place] [place] Color, UA YELLOW YELLOW [place] Glucose, Ur Negative NEGATIVE [place] Ketones Ql (U) Negative NEGATIVE [place] Leukocyte esterase Test strip Ql (U) Negative NEGATIVE [place] Nitrite, Urine Negative NEGATIVE [place] pH, UA 7.0 [place] Protein (U) [Mass/Vol] Negative NEGATIVE [place] Specific [place], UA 1.015 [place] Turbidity UA CLEAR CLEAR [place] Urinalysis Comments [place] Urine Hgb Negative NEGATIVE [place] Urobilinogen, Urine Normal Normal [place] Vital Signs Date Time Vital Sign Value Performing Clinician Facility 08-23-2024 17:31-0500 Heart rate 100 /min [facility] 08-23-2024 17:31-0500 Respiratory rate 20 /min [facility] 08-23-2024 17:31-0500 SaO2% (BldA) [Mass fraction] 97 % [facility] 08-23-2024 15:35-0500 Body temperature 98.24 [degF] [facility] 08-23-2024 15:35-0500 Diastolic blood pressure 84 mm[Hg] [facility] 08-23-2024 15:35-0500 Heart rate 110 /min [facility] 08-23-2024 15:35-0500 Respiratory rate 20 /min [facility] 08-23-2024 15:35-0500 SaO2% (BldA) [Mass fraction] 96 % [facility] 08-23-2024 15:35-0500 Systolic blood pressure 139 mm[Hg] [facility] 07-27-2024 11:23-0500 Body mass index (BMI) [Ratio] 43.39 kg/m2 [facility] 07-27-2024 11:23-0500 Body weight 114.67 kg [facility] 06-13-2024 11:38-0400 Body mass index (BMI) [Ratio] 42.4 kg/m2 Alfred Rambo DO Work Phone: [facility] 06-13-2024 11:38-0400 Body weight 112.04 kg Alfred Rambo DO Work Phone: [facility] 06-13-2024 11:38-0400 Diastolic blood pressure 74 mm[Hg] Alfred Rambo DO Work Phone: [facility] 06-13-2024 11:38-0400 Systolic blood pressure 124 mm[Hg] Alfred Rambo DO Work Phone: [facility] 06-02-2024 13:44-0400 Body height 162.6 cm Chitra Batista MD Work Phone: [facility] 06-02-2024 13:44-0400 Body mass index (BMI) [Ratio] 41.68 kg/m2 Chitra Batista MD Work Phone: [facility] 06-02-2024 13:44-0400 Body weight 110.13 kg Chitra Batista MD Work Phone: [facility] 06-02-2024 13:40-0400 Body temperature 97.5 [degF] Chitra Batista MD Work Phone: [facility] [employer] 06-02-2024 13:40-0400 Diastolic blood pressure 84 mm[Hg] Chitra Batista MD Work Phone: [facility] [employer] 06-02-2024 13:40-0400 Heart rate 91 /min Chitra Batista MD Work Phone: [facility] [employer] 06-02-2024 13:40-0400 Respiratory rate 18 /min Chitra Batista MD Work Phone: [facility] [employer] 06-02-2024 13:40-0400 SaO2% (BldA) [Mass fraction] 98 % Chitra Batista MD Work Phone: [facility] [employer] 06-02-2024 13:40-0400 Systolic blood pressure 134 mm[Hg] Chitra Batista MD Work Phone: [facility] [employer] 03-07-2023 08:52-0400 Body height 162.6 cm Jeronimo Do DO Work Phone: [facility] [employer] 03-07-2023 08:52-0400 Body mass index (BMI) [Ratio] 41.2 kg/m2 Jeronimo Do DO Work Phone: [facility] [employer] 03-07-2023 08:52-0400 Body weight 108.86 kg Jeronimo Do DO Work Phone: [facility] [employer] 03-07-2023 08:52-0400 Diastolic blood pressure 84 mm[Hg] Jeronimo Do DO Work Phone: [facility] [employer] 03-07-2023 08:52-0400 Respiratory rate 20 /min Jeronimo Do DO Work Phone: [facility] [employer] 03-07-2023 08:52-0400 SaO2% (BldA) [Mass fraction] 98 % Jeronimo Do DO Work Phone: [facility] [employer] 03-07-2023 08:52-0400 Systolic blood pressure 101 mm[Hg] Jeronimo Do DO Work Phone: [employer] 03-07-2023 08:51-0400 Body temperature 98.29 [degF] Jeronimo Do DO Work Phone: [facility] [employer] 03-07-2023 08:51-0400 Heart rate 96 /min Jeronimo Do DO Work Phone: [facility] [employer] 11-14-2022 08:08-0400 Body height 160 cm Manoj Flores MD Work Phone: [employer] 11-14-2022 08:08-0400 Body mass index (BMI) [Ratio] 41.98 kg/m2 Manoj Flores MD Work Phone: [employer] 11-14-2022 08:08-0400 Body temperature 98.2 [degF] Manoj Flores MD Work Phone: [employer] 11-14-2022 08:08-0400 Body weight 107.5 kg Manoj Flores MD Work Phone: [employer] 11-14-2022 08:08-0400 Diastolic blood pressure 95 mm[Hg] Manoj Flores MD Work Phone: [employer] 11-14-2022 08:08-0400 Heart rate 87 /min Manoj Flores MD Work Phone: [employer] 11-14-2022 08:08-0400 Respiratory rate 20 /min Manoj Flores MD Work Phone: [employer] 11-14-2022 08:08-0400 SaO2% (BldA) [Mass fraction] 98 % Manoj Flores MD Work Phone: [employer] 11-14-2022 08:08-0400 Systolic blood pressure 141 mm[Hg] Manoj Flores MD Work Phone: [employer] 05-29-2022 12:29-0400 Diastolic blood pressure 80 mm[Hg] Tommy Cherry MD Work Phone: [employer] 05-29-2022 12:29-0400 Heart rate 94 /min Tommy Cherry MD Work Phone: [employer] 05-29-2022 12:29-0400 Respiratory rate 16 /min Tommy Cherry MD Work Phone: [facility] [employer] 05-29-2022 12:29-0400 Systolic blood pressure 132 mm[Hg] Tommy Cherry MD Work Phone: [employer] 05-29-2022 08:52-0400 Body temperature 98.01 [degF] Tommy Cherry MD Work Phone: [employer] 05-29-2022 08:52-0400 SaO2% (BldA) [Mass fraction] 98 % Tommy Cherry MD Work Phone: [employer] 09-19-2019 17:05-0500 Diastolic blood pressure 76 mm[Hg] Pilar Garcia MD Work Phone: [employer] Work Phone: 09-19-2019 17:05-0500 Heart rate 88 /min Pilar Garcia MD Work Phone: [employer] Work Phone: 09-19-2019 17:05-0500 Respiratory rate 20 /min Pilar Garcia MD Work Phone: [employer] Work Phone: 09-19-2019 17:05-0500 SaO2% (BldA) [Mass fraction] 99 % Pilar Garcia MD Work Phone: [employer] Work Phone: 09-19-2019 17:05-0500 Systolic blood pressure 136 mm[Hg] Pilar Garcia MD Work Phone: [employer] Work Phone: 09-19-2019 15:21-0500 Body mass index (BMI) [Ratio] 41.54 kg/m2 Pilar Garcia MD Work Phone: [employer] Work Phone: 09-19-2019 15:21-0500 Body temperature 98.01 [degF] Pilar Garcia MD Work Phone: [employer] Work Phone: 09-19-2019 15:21-0500 Body weight 109.77 kg Pilar Garcia MD Work Phone: [employer] Work Phone: 05-06-2019 07:59-0400 BMI (Body Mass Index) 38.45 kg/m2 [facility] Gonzalez[facility] [place] 05-06-2019 07:59-0400 Body Temperature 98.49 [degF] Hollie York [employer]- [facility], [place] 05-06-2019 07:59-0400 Body weight 101.61 kg Hollie GonzalezParadigm [facility] , [place] 05-06-2019 07:59-0400 BP Diastolic 66 mm[Hg] Hollie GonzalezParadigm FinancialUN[facility] , [place] 05-06-2019 07:59-0400 BP Systolic 126 mm[Hg] Hollie Varaani [facility] , [place] 05-06-2019 07:59-0400 Pulse (Heart Rate) 83 /min Hollie York [facility] [place] 05-06-2019 07:59-0400 Pulse Oximetry 97 % Hollie GonzalezParadigm FinancialUN[facility] , [place] 05-06-2019 07:59-0400 Respiratory Rate 20 /min Hollie York [place] Encounters Encounter Date Encounter Type Care Provider Facility Start: 09-27-2024 End: 09-27-2024 Bamboo flowsheet Jenni CAMPBELL Work Phone: [facility] Start: 09-27-2024 End: 09-27-2024 Bamboo flowsheet Jenni CAMPBELL Work Phone: [facility] Start: 09-27-2024 End: 09-27-2024 Clinisync Result Encounter Alfred Ricks DO Work Phone: [facility] Unsolicited Start: 09-24-2024 End: 09-24-2024 Emergency department patient visit RACQUEL JOANNA SIMPSON [facility] Start: 08-23-2024 End: 08-23-2024 Emergency department patient visit [facility] Start: 07-27-2024 End: 07-27-2024 Clinisync Result Encounter Alfred Rambo DO Work Phone: [facility] Unsolicited Start: 07-27-2024 End: 07-27-2024 Clinisync Result Encounter Alfred Rambo DO Work Phone: [facility] Unsolicited Start: 07-27-2024 End: 07-27-2024 Office outpatient visit 5 minutes [facility] Rambo Nurse [facility] Comment on above: GA: 15w4d Start: 07-27-2024 End: 07-27-2024 ambulatory ALFRED RAMBO Not Available Start: 06-13-2024 End: 06-13-2024 Bamboo flowsheet Alfred [...] End: 06-02-2024 Emergency department patient visit RACQUEL F SIMPSON [facility] Comment on above: Viral URI with cough (Primary Dx) Start: 03-08-2024 End: 03-08-2024 Emergency department patient visit PILAR LOERA Facility:[facility] Start: 02-21-2024 End: 02-21-2024 ambulatory ALFRED RICKS Not Available Start: 02-12-2024 End: 02-12-2024 Emergency department patient visit RACQUEL SIMPSON [facility] Start: 09-08-2023 End: 09-10-2023 Evaluation and management of inpatient AARON CARTAGENA [facility] Start: 09-08-2023 Telephone encounter An Daniels [facility] Start: 09-08-2023 End: 09-08-2023 ambulatory DAMIAN HERNÁNDEZ [facility] Start: 09-07-2023 End: 09-07-2023 Evaluation and management of inpatient EDWINA CROCKETT [facility] Start: 09-07-2023 Telephone encounter [facility] Comment on above: Hospital Follow-up Start: 09-01-2023 End: 09-06-2023 Evaluation and management of inpatient [facility] Start: 09-01-2023 End: 09-07-2023 Evaluation and management of inpatient [facility] Start: 09-01-2023 End: 09-01-2023 [facility]: 09-01-2023 End: 09-01-2023 Evaluation and management of inpatient MIKALA [facility] Start: 08-31-2023 End: 09-01-2023 Evaluation and management of inpatient MIKALA ELLER [facility] Start: 08-31-2023 End: 09-07-2023 Evaluation and management of inpatient ESPERANZA BUNDYMOISES [facility] Start: 03-13-2023 End: 03-17-2023 Evaluation and management of inpatient MANOJ Jeremiah ROMANJoslyn Facility:[facility] Start: 03-07-2023 End: 03-07-2023 Emergency department patient visit Jeronimo oD DO Work Phone: [facility] ED Comment on above: Left flank pain (Monserrat almas Dx) Start: 01-03-2023 End: 01-04-[address] ALFRED RICKS . Facility:H1 Start: 11-14-2022 End: 11-14-2022 Emergency department patient visit Manoj Flores MD Work Phone: [facility] ED Comment on above: Acute pharyngitis, u nspecified etiology (Primary Dx) Start: 05-25-2022 End: 05-29-2022 Evaluation and management of inpatient RACQUEL SIMPSON [facility] Start: 05-25-2022 End: 05-29-2022 Evaluation and management of inpatient Tommy Cherry MD Work Phone: [facility] Post Comment on above: PLTCS 05/25/22 F Apg Wt 4#15 (Primary Dx) Start: 05-23-2022 End: 05-25-[address] ALFRED RICKS . Facility: Start: 05-07-[address] ALFRED RICKS . Facili ty:H1 Start: 05-04-2022 End: 05-05-[address] ALFRED RICKS . Facility: Start: 06-08-2021 End: 06-08-2021 Subsequent hospital visit by physician [facility] Covid19 Pat [address] Schedule [facility] PRE ADMIT Comment on above: Sinus congestion; Cough; Fever, unspecified fever cause Start: 09-30-2020 End: 09-30-2020 Subsequent hospital visit by physician Racquel Simpson [facility] Laboratory Comment on above: Suspected COVID-19 v irus infection Start: 07-30-2020 End: 07-30-2020 Subsequent hospital visit by physician Racquel Simpson [facility] Laboratory Comment on above: Suspected COVID-19 v irus infection Start: 09-19-2019 End: 09-19-2019 Emergency department patient visit Pilar Garcia MD Work Phone: [facility] ED Comment on above: Lower abdominal pain (Primary Dx); Complication of in second trimester Start: 05-06-2019 End: 05-06-2019 Emergency department patient visit Hollie Gonzalez Work Phone: [facility] ED Comment on above: Strain of lumbar reg ion, initial encounter (Primary Dx); Morning sickness; Acute pharyngitis, unspecified etiology Procedures Date Procedure Procedure Detail Performing Clinician Start: 09-27-2024 [facility] UA (CLEAN/CATCH) GROUP INSURANCE SPECIAL AGENT/MICRO IF IND. Alfred Rambo DO Work Phone: Start: 07-27-2024 ALL CBC WITH AUTO DIFF Alfred Rambo DO Work Phone: Start: 07-27-2024 Urnls dip stick/tabl et rgnt non-auto w/o micrscp Alfred Rambo DO Work Phone: Start: 06-13-2024 [facility] PREG QUANT HCG Core y Rambo DO Work Phone: Start: 03-15-2023 Antibody screen PILAR LOERA Comment on above: Order Comment: Speci men Type: BLOOD SPECIMEN Ordering Facility: [facility] Address: [address] [place] [address] Performed By: #### 1 [id number], [id number] #### [facility] CLIA [id number] [address] [place] [address] [place] Start: 03-07-2023 Comprehensive metabo [...] panel Lynn Nelson DO Work Phone: Start: 10-04-2022 T. PALL[facility]UM AB Tammy Cherry MD Work Phone: Start: 05-25-2022 Ct head/brain w/o co ntrast material Lynn Nelson DO Work Phone: Start: 05-25-2022 Antibody [...] stick/tabl et rgnt auto w/o microscopy Hollie Gonzalezus Work Phone: Start: 05-06-2019 Blood count complete auto&auto difrntl wbc Madonna Strus Work Phone: Start: 05-06-2019 Sedimentation rate r bc automated Hollie Pinzon Strus Work Phone: Start: 05-06-2019 Iaadiadoo streptococ cus group a Hollie Pinzon Strus Work Phone: denies Tarun Richards Incision of gallbladder Tarun Richards Liver cyst (disorder) Tarun hernández Plan of Treatment Date Care Activity Detail Author Start: 2052 Respiratory Syncytia l Virus (RSV) or age 60 yrs+ (1 - 1-dose 60+ series) Respiratory Syncytial Virus (RSV) or age 60 yrs+ (1 - 1-dose 60+ series) [facility] Start: 09-02-2033 DTaP,Tdap and Td Vac cines (6 - Td or Tdap) DTaP,Tdap and Td Vaccines (6 - Td or Tdap) [facility] Start: 09-02-2033 DTaP/Tdap/Td vaccine (6 - Td or Tdap) DTaP/Tdap/Td vaccine (6 - Td or Tdap) [facility] Start: 09-27-2024 End: 09-27-2024 Patient encounter procedure 09/27/2024 8:50 AM EST Routine [facility] [address] [place] [id number] Jenni Simon PA [address] [place] [address] Arrived [facility] Comment on above: Arrived Start: 09-09-2024 Adult BMI Screening Adult BMI Screen ing [facility] Start: 09-06-2024 Adult BMI Screening Adult BMI Screen ing [facility] Start: 08-06-2024 End: 08-06-2024 Patient encounter procedure 08/06/2024 1:00 PM EST Routine [facility] [address] [place] [id number] Alfred Ricks DO [address] [place] [address] [facility] Start: 07-27-2024 End: 07-27-2025 ABO/Rh ABO/Rh Lab Routine Missed menses , unspecified gestational age Expected: 07/27/2024 (Approximate), Expires: 07/27/2025 [facility] Comment on above: Expected: 07/27/2024 (Approximate), Expires: 07/27/2025 Start: 07-27-2024 End: 07-27-2025 Blood type and Indirect antibody screen panel - Blood Type and screen Lab Routine Missed menses , unspecified gestational age Expected: 07/27/2024 (Approximate), Expires: 07/27/2025 [facility] Work Phone: Comment on above: Expected: 07/27/2024 (Approximate), Expires: 07/27/2025 Start: 07-27-2024 End: 07-27-2025 Drugs of abuse panel - Urine by Screen method Rapid drug screen, urine Lab Routine , unspecified gestational age Encounter for supervision of normal first in first trimester Expected: 07/27/2024 (Approximate), Expires: 07/27/2025 [facility] Comment on above: Expected: 07/27/2024 (Approximate), Expires: 07/27/2025 Start: 06-13-2024 End: 06-13-2025 US Pelvis transvaginal US OB transvaginal Imaging Routine Missed menses Expected: 06/13/2024 (Approximate), Expires: 06/13/2025 [facility] Comment on above: Expected: 06/13/2024 (Approximate), Expires: 06/13/2025 Start: 06-13-2024 End: 06-13-2024 Patient encounter procedure 06/13/2024 11:30 AM EDT Office Visit [facility] [address] [place] [address] Alfred Ricks, DO [address] [place] [address] Arrived [facility] Comment on above: Arrived Start: 04-22-2024 COVID-19 Vaccine ( season) COVID-19 Vaccine ( season) [facility] Start: 03-22-2024 Influenza vaccination Flu vaccine (# 1) [facility] Start: 06-01-2023 Depression Screen Depression Screen [facility] Start: 03-22-2023 Influenza vaccination Flu vaccine (# 1) [facility] Start: 03-08-2023 End: 03-07-2024 US RETROPERITONEAL COMPLETE US RETROPERITONEAL COMPLETE Imaging STAT Left flank pain Expected: 03/08/2023, Expires: 03/07/2024 [facility] Comment on above: Expected: 03/08/2023 , Expires: 03/07/2024 Start: 2022 Screening for malign ant neoplasm of cervix [facility] Start: 06-01-2022 End: 06-01-2022 ambulatory 06/01/2022 Visit Obstetrics and Gynecology Kesha Pritchett, DO [address] [place] [address] [facility] [employer] Start: 03-22-2022 Influenza vaccination Flu vaccine (# 1) [facility] Start: 04-22-2021 Influenza vaccination Flu vaccine (# 1) [facility] Work Phone: Start: 04-22-2020 Influenza vaccination Flu vaccine (# 1) [place], [place] Start: 04-22-2019 Influenza vaccination Flu vaccine (# 1) [place] Start: 2013 Cervical cancer screen Cervical canc er screen [place], [place] Start: 2013 Screening for malign ant neoplasm of cervix [facility] Start: 2011 DTaP/Tdap/Td vaccine (1 - Tdap) DTaP/Tdap/Td vaccine (1 - Tdap) [facility] Start: 2010 Adult BMI Follow Up Plan Adult BMI F ollow Up Plan [facility] Start: 2010 Hepatitis C screening Hepatitis C sc reen [facility] Start: 2007 HIV screen HIV screen [place], [place] Start: 2007 HIV screening HIV screen [facility] Start: 2007 HPV vaccine (1 - Fem angelica 3-dose series) HPV vaccine (1 - Female 3-dose series) [place] Start: 2005 Varicella Vaccine (1 of 2 - 13+ 2-dose series) Varicella Vaccine (1 of 2 - 13+ 2-dose series) [facility] Start: 2004 COVID-19 Vaccine (1) COVID-19 Vaccin e (1) [facility] Work Phone: Start: 2004 Depression Screen Depression Screen [facility] Start: 2004 Depression Screening Depression Scre ening [facility] Start: 2004 Tobacco Screening Tobacco Screening [facility] Start: 2003 DTaP/Tdap/Td vaccine (1 - Tdap) DTaP/Tdap/Td vaccine (1 - Tdap) [facility] Phone: Start: 2003 DTaP/Tdap/Td vaccine (5 - Tdap) DTaP/Tdap/Td vaccine (5 - Tdap) [facility] Start: 1996 Polio vaccine (4 of 4 - 4-dose series) Polio vaccine (4 of 4 - 4-dose series) [facility] Start: 1993 Varicella vaccine (1 of 2 - 2-dose childhood series) Varicella vaccine (1 of 2 - 2-dose childhood series) [facility] Start: 02-06-1993 COVID-19 Vaccine (#1) COVID-19 Vacci ne (#1) [facility] Start: 1992 Hepatitis C screening Hepatitis C sc [place] Bacteria identified in Urine by Culture Urine culture Microbiology Routine Missed menses Ordered: 07/27/2024 [facility] Comment on above: Ordered: 07/27/2024 CBC W Auto Different ial panel - Blood CBC and differential Lab Routine Missed menses , unspecified gestational age Ordered: 07/27/2024 [facility] Comment on above: Ordered: 07/27/2024 End: 09-30-2020 COVID-19 COVID-19 Lab Routine Suspected COVID-19 virus infection 1 Occurrences starting 09/30/2020 until 09/30/2020 [facility] [place] Comment on above: 1 Occurrences starti ng 09/30/2020 until 09/30/2020 COVID-19 [facility] [place] End: 06-08-2021 COVID-19 COVID-19 Lab Routine Sinus congestion Cough Fever, unspecified fever cause 1 Occurrences starting 06/08/2021 until 06/08/2021 [facility] [employer] Work Phone: Comment on above: 1 Occurrences starti ng 06/08/2021 until 06/08/2021 End: 07-30-2020 Covid-19 Ambulatory Covid-19 Ambulatory Lab Routine Suspected Covid-19 Virus Infection 1 Occurrences starting 07/30/2020 until 07/30/2020 [place] Comment on above: 1 Occurrences starti ng 07/30/2020 until 07/30/2020 Covid-19 Ambulatory Covid-19 Amb ulatory Lab Routine Suspected COVID-19 virus infection 07/30/2020 10:34 AM EST [place] End: 05-06-2019 CRP [Mass/Vol] C-reactive protein Lab Routine One Time for 1 Occurrences starting 05/06/2019 until 05/06/2019 [place] Comment on above: One Time for 1 Occur rences starting 05/06/2019 until 05/06/2019 CRP [Mass/Vol] C-reactive prote in Lab STAT 05/06/2019 8:32 AM EDT [place] End: 05-29-2022 DRUG SCREEN MULTI URINE DRUG SCREEN MULTI URINE Lab Add-On One Time for 1 Occurrences starting 05/29/2022 until 05/29/2022 [facility] [employer] Work Phone: Comment on above: One Time for 1 Occur rences starting 05/29/2022 until 05/29/2022 hCG, quantitative hCG, quantitat adriana Lab Routine Missed menses Early stage of Ordered: 06/13/2024 [facility] [employer] Work Phone: Comment on above: Ordered: 06/13/2024 Hemoglobin A1c/Hemoglobin.total in Blood Hemoglobin A1c Lab Routine Missed menses , unspecified gestational age Ordered: 07/27/2024 [facility] Comment on above: Ordered: 07/27/2024 Hepatitis B virus gant rface Ag [Presence] in Serum or Plasma by Immunoassay Hepatitis B surface antigen Lab Routine Missed menses , unspecified gestational age Ordered: 07/27/2024 [facility] Comment on above: Ordered: 07/27/2024 Hepatitis C virus Ab [Presence] in Serum or Plasma by Immunoassay Hepatitis C antibody Lab Routine Missed menses , unspecified gestational age Ordered: 07/27/2024 [facility] Comment on above: Ordered: 07/27/2024 HIV-1/HIV-2 antigen/antibody combination immunoassay HIV-1 and HIV-2 antibodies Lab Routine Missed menses , unspecified gestational age Ordered: 07/27/2024 [facility] Comment on above: Ordered: 07/27/2024 Oxygen therapy [Mini [facility] Data Set] Initiate Oxygen Therapy Protocol Respiratory Care Routine Daily until discontinued starting 05/25/2022 Bench Phone: Comment on above: Daily until disconti nued starting 05/25/2022 Reagin Ab [Presence] in Serum by RPR RPR Lab Routine Missed menses , unspecified gestational age Ordered: 07/27/2024 [employer] Comment on above: Ordered: 07/27/2024 Rubella antibody, IgG Rubella an tibody, IgG Lab Routine Missed menses , unspecified gestational age Ordered: 07/27/2024 [employer] Comment on above: Ordered: 07/27/2024 Spirometry panel Incentive kavitha metry Respiratory Care Routine Every 2hr while awake until discontinued starting 05/25/2022 Bench Phone: Comment on above: Every 2hr while awak e until discontinued starting 05/25/2022 End: 03-07-2023 US RETROPERITONEAL COMPLETE US RETROPERITONEAL COMPLETE Imaging Routine Once for 1 Occurrences starting 03/07/2023 until 03/07/2023 Bench Phone: Comment on above: Once for 1 Occurrenc es starting 03/07/2023 until 03/07/2023 Immunizations Immunization Date Immunization Notes Care Provider Fa avera [facility] 09-02-2023 tetanus toxoid, redu servando diphtheria toxoid, and acellular pertussis vaccine, adsorbed [facility] 06-01-2022 influenza, injectabl e, quadrivalent, preservative free Manoj Flores MD Work Phone: [employer] 05-29-2022 measles, mumps and rubella virus vaccine Tommy Cherry MD Work Phone: [employer] 05-25-2022 diphtheria, tetanus toxoids and acellular pertussis vaccine, unspecified formulation Tommy Cherry MD Work Phone: [employer] Work Phone: 07-21-2018 influenza, injectabl e, quadrivalent, preservative free Manoj Flores MD Work Phone: [employer] Work Phone: 05-18-2017 influenza, injectabl e, quadrivalent, preservative free Manoj Flores MD Work Phone: [employer] Work Phone: 05-25-2016 influenza virus vaccine, unspecified formulation Manoj Flores MD Work Phone: [employer] Work Phone: 05-27-2015 influenza virus vaccine, whole virus Manoj Flores MD Work Phone: [employer] Work Phone: 05-22-2015 influenza virus vaccine, unspecified formulation Manoj Flores MD Work Phone: [employer] Work Phone: 06-30-2014 influenza virus vaccine, unspecified formulation Manoj Flores MD Work Phone: [facility] [employer] Work Phone: 01-18-2014 tuberculin skin test ; purified protein derivative solution, intradermal Hollie [facility] [employer] 06-21-2013 influenza, seasonal, injectable Tarun Richards [facility] 06-21-2013 tetanus toxoid, redu servando diphtheria toxoid, and acellular pertussis vaccine, adsorbed Tarun Richards [facility] Comment on above: Reason for Medicatio n: Other (see comment) 06-15-2013 influenza virus vaccine, whole virus Manoj Flores MD Work Phone: [employer] Work Phone: 05-19-2011 influenza virus vaccine, unspecified formulation Manoj Flores MD Work Phone: [employer] Work Phone: 04-14-2005 measles, mumps and rubella virus vaccine Manoj Flores MD Work Phone: [employer] Work Phone: 11-25-1993 diphtheria, tetanus toxoids and acellular pertussis vaccine, unspecified formulation Manoj Flores MD Work Phone: [employer] Work Phone: 11-25-1993 haemophilus influenz ae type b vaccine, conjugate unspecified formulation Manoj Flores MD Work Phone: [employer] Work Phone: 11-25-1993 hepatitis B vaccine, pediatric or pediatric/adolescent dosage Manoj Flores MD Work Phone: [employer] Work Phone: 11-25-1993 measles, mumps and rubella virus vaccine Manoj Flores MD Work Phone: [employer] Work Phone: 11-25-1993 trivalent poliovirus vaccine, live, oral Manoj Flores MD Work Phone: [employer] Work Phone: 03-12-1993 diphtheria, tetanus toxoids and pertussis vaccine Manoj Flores MD Work Phone: [employer] Work Phone: 03-12-1993 haemophilus influenz ae type b vaccine, conjugate unspecified formulation Manoj Flores MD Work Phone: [employer] Work Phone: 03-12-1993 hepatitis B vaccine, pediatric or pediatric/adolescent dosage Manoj Flores MD Work Phone: [employer] Work Phone: 1992 diphtheria, tetanus toxoids and pertussis vaccine Manoj Flores MD Work Phone: [employer] Work Phone: 1992 haemophilus influenz ae type b vaccine, conjugate unspecified formulation Manoj Flores MD Work Phone: [employer] Work Phone: 1992 hepatitis B vaccine, pediatric or pediatric/adolescent dosage Manoj Flores MD Work Phone: [employer] Work Phone: 1992 trivalent poliovirus vaccine, live, oral Manoj Flores MD Work Phone: [employer] Work Phone: 1992 diphtheria, tetanus toxoids and pertussis vaccine Manoj Flores MD Work Phone: [employer] Work Phone: 1992 haemophilus influenz ae type b vaccine, conjugate unspecified formulation Manoj Flores MD Work Phone: [employer] Work Phone: 1992 trivalent poliovirus vaccine, live, oral Manoj Flores MD Work Phone: [employer] Work Phone: Payers Date Payer Category Payer Medicaid [employer] HMO [id number] 2023-Present [phone] [address] [place] [address] [id number] 2022 Private Health Insurance [employer] [id number] 2015 Unknown JULIA DE[employer] [facility] [employer] xxxxxxxxxxx 2015-Present [phone] CLAIMS DEPARTMENT [address] [place] [address] xxxxxxxxxxx [id number] 1992 Unknown [id number] 2.16.840.1.328208.3.579.2. 175 1992 Unknown [id number] 2.16.840.1.845562.3.579.2. 593 1992 Unknown [id number] 2.16.840.1.729878.3.579.2. 593 1992 Unknown [id number] 2.16.840.1.257116.3.579.2. 593 1992 Unknown [id number] 2.16.840.1.673031.3.579.2. 593 1992 Unknown [id number] 2.16.840.1.723364.3.579.2. 1286 1992 Unknown [id number] 2.16.840.1.158456.3.579.2. 1286 1992 Unknown [id number] 2.16.840.1.435673.3.579.2. 1286 1992 Unknown [id number] 2.16.840.1.084157.3.579.2. 1286 1992 Unknown [id number] 2.16.840.1.361599.3.579.2. 1286 1992 Unknown [id number] 2.16.840.1.383832.3.579.2. 1286 1992 Unknown [id number] 2.16.840.1.715844.3.579.2. 1286 1992 Unknown [id number] 2.16.840.1.572106.3.579.2. 1286 1992 Unknown [id number] 2.16.840.1.323555.3.579.2. 1286 1992 Unknown [id number] 2.16.840.1.300170.3.579.2. 1286 1992 Unknown [id number] 2.16.840.1.454375.3.579.2. 1286 1992 Unknown [id number] 2.16.840.1.351188.3.579.2. 1286 1992 Unknown [id number] 2.16.840.1.274726.3.579.2. 174 1992 Unknown [id number] 2.16.840.1.244097.3.579.2. 174 1992 Unknown [id number] 2.16.840.1.107629.3.579.2. 727 1992 Unknown [id number] 2.16.840.1.017306.3.579.2. 727 1992 Unknown [id number] 2.16.840.1.732435.3.579.2. 903 1992 Unknown [id number] 2.16.840.1.545552.3.579.2. 1259 1992 Unknown [id number] 2.16.840.1.816505.3.579.2. 1259 1992 Unknown [id number] 2.16.840.1.421670.3.579.2. 1259 1959 Self-pay 1959 Unknown [id number] 1.2.840.219581.1.13.239.2. 7.3.291280.315 1959 Unknown [id number] Social History Date Type Detail Facility Start: 07-30-2020 End: 02-21-2024 Tobacco smoking status NCIS Former smoker [facility] Start: 02-16-2020 End: 02-15-2022 History of tobacco use Cigarette Smoker [place] Start: 07-30-2020 End: 06-13-2024 Cigarettes smoked current (pack per day) - Reported [facility] [place] Start: 07-30-2020 End: 03-07-2023 Tobacco use and exposure Never used [place] Start: 07-30-2020 End: 06-02-2024 Alcohol intake Current non-drinker of alcohol (finding) [employer] Phone: Start: 07-14-2015 Alcohol Comment less than once a wee k [place] Start: 1992 Sex Assigned At Not on file M [place] Start: 05-06-2019 End: 06-13-2024 Alcohol intake No [place] Start: 02-16-2020 End: 02-15-2022 History of tobacco use Current smoker [facility] Phone: Start: 11-04-2022 End: 11-14-2022 Exposure to SARS-CoV-2 (event) Not sure Bench Phone: Start: 03-07-2023 History SDOH Alcohol Frequency 1 [facility] Start: 03-07-2023 History SDOH Alcohol Std Drinks 0 [facility] Tobacco smoking stat us NCIS Tobacco smoking consumption unknown [facility] Housing Instability Unknown [facility] How often to you hav e a drink containing alcohol? Never [facility] Start: 04-03-2024 End: 09-27-2024 Alcoholic beverage intake Lifetime non-drinker (finding) [facility] Start: 04-11-2023 Alcohol Comment Caffeine: > 4 cups/d ay [facility] Start: 04-23-2024 [facility] Start: 09-14-2015 Tobacco smoking status Smokes tobacco daily (finding) [facility] Comment on above: 08/25 PPD Goals Date Patient Goal Desired Activity /State Personal health goal Functional Status Date Assessment Result Facility 08-23-2024 Functional Status N/A [facility] Clinical Notes 09-19-2019 to 08-23-2024 Gladys Brooks LPN - 07/27/2024 11:00 AM Miguelina Shepard, COMMODITY SPECIALIST - 06/13/2024 11:30 AM EDTTelephone Encounter - An Murray - 09/08/2023 1:20 PM ESTDischarmyah InstructionsAttachments Note Date & Type Note Facility [...] Follow these instructions at home: Medicines Take pxvo-esk-gjdctxs and prescription medicines only as told by [...] and water are not available, use hand infantry operations specialist. Contact a health care provider if: You [...] provider. Document Revised: 10/06/2022 Document Reviewed: 10/06/2022 [employer] Patient Education 2023 Robin. 08/23/2024 18:11:50 Asthma, Adult Asthma, Adult Asthma [...] breathing (shortness of breath). Excessive nighttime or photo engraver coughing. Chest tightness. Tiredness (fatigue) with minimal [...] condition. Follow these instructions at home: Take dgzr-xaz-chavjhr and prescription medicines only as told by [...] provider. Document Revised: 05/26/2022 Document Reviewed: 05/17/2022 [employer] Patient Education 2023 Robin. Follow Up Care 08/23/2024 15:31:53 With:Racquel Simpson Address: [address] [place] [address] Richard[address] [place] [address]- Business (1) When:08/26/2024 18:02:53 [facility] 08-23-2024 Note ED Patient Education Note Infectious [...] these instructions at home: Medicines ??? Take erxv-wko-qcxijap and prescription medicines only as told by [...] of developing commu (more content not included)... [facility] 07-27-2024 History of Present illness Narrative Reason [...] oz F Vag-Spont NENA Complications: Pre-eclampsia 2 SAB 2011 1 SAB 2010 Current Medications: has a current medication list which includes the following prescription(s): labetalol, metoclopramide, omeprazole, and ondansetron odt. 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 Weight as of this [...] or undercooked meat, and stay away from [facility]. 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 Exam conducted with a drip molder present. Vitals: Estimated body mass index is [...] Alfred Ricks DO documented in this encounter [facility] 03-08-2024 Note HNO ID: [id number] Author: AROLDO CONN RT(R) Service: ? Author Type: Natural Sciences Professor Type: Progress Notes Filed: 03/08/2024 17:25 Note [...] PATIENT PRESENTS WITH AN IMPLANTABLE OR ATTACHED SENIOR NET C DEVELOPER: No ALLERGIES: Reviewed and unchanged CONTRAST ALLERGY: [...] DATE: March 08, 2024 TIME: 5:24 PM [facility] 09-08-2023 Miscellaneous Notes Pt called stating that [...] afternoon. She is currently being driven to [facility] by her boyfriend. Dr. Landa updated. I [...] with JENNIFER Ramirez documented in this encounter [employer] 09-08-2023 Telephone encounter Note Pt called stating [...] afternoon. She is currently being driven to [facility] by her boyfriend. Dr. Landa updated. [employer] 09-08-2023 Telephone encounter Note I saw and evaluated the patient with the student CNM. I reviewed the student CNM note. I agree with the student CNM findings and plan with review of items for learning. I have made adjustments & discussed note & care for this patient. Breana Harris APRN, CNM talked with pt via phone with JENNIFER Ramirez [employer] Work Phone: 09-07-2023 Miscellaneous Notes Message from the 09/06/23 discharge list per RDG. He signed off patient care from [facility] Dx Eclampsia Gonq-dx-csguydzr mitral regurgitation History of reported still's disease Patient to f/u in 1 to 2 weeks post d/c bvb PT STILL ADMITT[facility] Telephone encounter Note Message from the 09/06/23 discharge list per RDG. He signed off patient care from [facility] Dx Eclampsia Mqkg-hp-owtjfedi mitral regurgitation History of reported still's disease Patient to f/u in 1 to 2 weeks post d/c bvb [employer] 09-07-2023 Telephone encounter Note PT STILL ADMITTED [employer] 03-17-2023 Note HNO ID: [id number] Author: Domonique Kaplan Service: ? Author Type: Film Numberer Type: Plan of Care Filed: 03/17/2023 2:18 PM Note Text: PHARMACY BEDSIDE DELIVERY SERVICE Patient Name: Qian Clements The marked outpatient medications were Filled at: [facility] and delivered to the patient's bedside [...] your Primary Care Provider. Domonique Kaplan PAGER: [phone] March 17, 2023 2:17 PM [facility] 03-17-2023 Note HNO ID: [id number] Author: Kristin Wang RPh Service: Pharmacy Author [...] Wang RPh March 17, 2023 12:41 PM [id number] Medication List START taking these medications amoxicillin-clavulanic [...] Your Medications These medications were sent to [facility] [address] [place] [address] Hours: Tuesday-Tuesday 7am-8pm, Tuesday, Tuesday and Holidays 9am-5pm amoxicillin-clavulanic acid 875-125 mg per tablet multivitamin 28 mg iron- 800 mcg tab(s) [facility] 03-16-2023 Note HNO ID: [id number] Author: Manoj Ramos MD Service: General Internal [...] CBC, Coags, BMP, Mg, Phos Recent Labs 03/16/2392403/15/23150903/14/23 0954 WBC 8.78 10.48 11.23* HB 10.7* [...] Liver Function, Amylase, AND Lipase Recent Labs 03/16/2392403/15/23 1510 03/14/23 0954 03/13/23 1456 ALB 3.6* [...] Plan: - Consider (more content not included)... [facility] 03-15-2023 Note HNO ID: [id number] Author: Domonique Kaplan Service: ? Author Type: Film Numberer Type: Plan of Care Filed: 03/15/2023 12:18 PM Note Text: Insurance investigation completed Patient has active prescription insurance: Yes - Patient's insurance is in-network with F Insurance loaded into [place]: Yes Test claim was completed to verify insurance is active: Successful Any questions, please contact your medication review scheduling coordinator. Pager #: [phone] [facility] 03-15-2023 Note HNO ID: [id number] Author: Manoj Ramos MD Service: General Internal Medicine Author Type: Physician Type: Progress Notes Filed: 03/15/2023 2:05 PM Note Text: Internal Medicine [place] progress note After 5 PM on weekdays [...] - 205.1 ng/mL 149.0 Assessment AND Plan Qina Clements is a 32 year old female [...] infection first. Ferritin (more content not included)... [facility] 03-14-2023 Note HNO ID: [id number] Author: Robyn Borrego RN Service: ? Author Type: Registered Nurse Type: Nursing Progress Note Filed: 03/14/2023 6:24 PM Note Text: 1814 Patient staes she is having spotting. Jeremiah Cantu notified and states to monitor. SViki Borrego RN [facility] 03-14-2023 Note HNO ID: [id number] Author: Kristin Wang RPh Service: Pharmacy Author Type: Pharmacist Type: Plan of Care Filed: 03/14/2023 12:02 PM Note Text: PHARMACY MEDICATION REVIEW Patient Name: Qian Clements : 1990 The following medications were updated within the SPRING COILING MACHINE SETTER medication list: Medications ADDED to SPRING COILING MACHINE SETTER medication list vitamin 1 tablet PO daily Acetaminophen 650 mg PO Q6hr prn pain, fever Ondansetron 4 mg PO q6hr prn N/V Medications CHANGED on SPRING COILING MACHINE SETTER medication list none Medications REMOVED from SPRING COILING MACHINE SETTER medication list Pulmicort Flexhaler Colchicine Omeprazole Prednisone Additional comments: patient confirmed stopped taking dextroamphetamine-amphetamine. The below information represents the best possible medication history: Yes Medication history completed by: Pharmacist: Kristin Wang RPh Source of history: Patient: Reliability of source: Appears reliable, clearly identified: Medication name, Medication dose, Medication route, and Medication frequency and Pharmacy records: [facility] Medication nonadherence identified: No barriers noted Reconciliation completed: Yes Completed by: Kristin Wang PharmD Discussed with LIP, plans to add vitamin based on updated medication history Patient interested in Bedside Delivery Services or using [facility] Pharm[facility] at discharge? Unable to assess Preferred outpatient pharmacy: [facility] [address] [place] [address] [address] [phone] Allergies: Ciprofloxacin Vomiting Codeine Vomiting Comment:Convulsions per [...] Facility-Administered Medications: None Kristin Wang RPh 03/14/2023 [id number] [facility] 03-14-2023 Note HNO ID: [id number] Author: Manoj Ramos MD Service: General Internal [...] finalized until signed by staff physician. SIGNATURE: CHASITY Teague PATIENT NAME: Qian Clements DATE: March 14, 2023 TIME: 8:26 AM Pager: refer to paging application After 5 PM on weekdays and after 3 PM on weekends page Night Team [facility] STAFF PHYSICIAN NOTE OF PERSONAL INVOLVEMENT IN CARE I have reviewed the progress note obta (more content not included)... [facility] 03-13-2023 Note HNO ID: [id number] Author: Sabrina Castro MD Service: Gynecology Author Type: Resident Type: Plan of Care Filed: 03/13/2023 5:19 PM Note Text: Attestation signed by Pinky Rodriguez DO at 03/13/2023 6:04 PM Routine OB guidelines/recommendations as documented. 03/13/2023 6:04 PM Pinky Rodriguez DO LINSEED OIL TEMPERER Resident Plan of Care Note 05:13 PM Primary care paged SERVICE ELECTRICIAN regarding recommended imaging for nephrolithiasis in the setting of 1st trimester of . Advised team to begin with renal bladder ultrasound. Advised team to avoid abdominal CT unless absolutely necessary. General guidelines are listed below. Sabrina Castro MD LINSEED OIL TEMPERER Resident, PGY-3 General guidelines In general, goals [...] for use in acute pain. Avoid NSAIDs. recovery operator narcotic exposure can lead to maternal and [...] - Could use if needed Avoid Tramadolol/Barbuturites. [facility] 03-13-2023 Note HNO ID: [id number] Author: Maira Egan RT(R) Service: Radiology Author [...] RT Angel(R) March 13, 2023 1:06 PM [facility] 03-07-2023 Hospital Discharge instructions Jeronimo Do DO - 03/07/2023 9:43 AM EDT Continue antibiotic as presccribed. Continue Tylenol as needed for pain. Follow-up with your OB for re evaluation. The following attachments cannot be sent through Care Everywhere.Flank Pain (Bermudian)documented in this encounter [facility] 05-29-2022 History of Present illness Narrative [...] - EBL 1000 - S/p TXA and HI cytotec - Bleeding stable, vitals stable - [...] patient Attending Physician: Dr. Dilip Curiel, DO Parcel Post Weigher Resident 05/29/2022, 2:59 AM Attending Physician Statement [...] patient Attending Physician: Dr. Pawel Cherry DO Parcel Post Weigher Resident 05/28/2022, 2:43 AM Date: 05/28/2022 Time: [...] patient Attending Physician: Dr. Joanne Cherry, DO Parcel Post Weigher Resident 05/27/2022, 12:19 AM Date: 05/27/2022 Time: [...] Will continue to monitor Abdi Gómez MD [employer] Post Weigher Resident 05/26/2022, 2:52 PM Resident Interval Magnesium [...] (05/26/22622) lactated ringers 75 mL/hr at 05/26/22 06 sodium chloride Vitals: Vitals: 05/26/22 0701 05/26/22 [...] PM BMP: Recent Labs 05/25/22 1501 05/25/22212605/26/22 06 NA 134* 134* 132* K 3.8 4.2 [...] Next magnote @ 1430 Abdi Gómez MD Parcel Post Weigher Resident 05/26/2022, 10:26 AM POST OPERATIVE DAY [...] S/p TXA x1 and Cytotec 1000 mg HI Asthma - Albuterol inhaler PRN Depression/ADHD - [...] patient Attending Physician: Dr. Celestine Crawley DO Par[employer] Post Weigher Resident 05/26/2022, 4:14 AM Resident Interval Magnesium [...] per EMS - Next mag note @ 2980 - Plan to d/c abrams at this time Savana Crawley DO Parcel Post Weigher Resident 05/26/2022, 4:10 AM Resident Interval Magnesium [...] PM BMP: Recent Labs 05/25/22 1501 05/25/227 NA 134* 134* K 3.8 4.2 CL [...] Will continue to monitor Savana Crawley DO Parcel Post Weigher Resident 05/26/2022, 12:30 AM Resident Interval Magnesium [...] Will continue to monitor Savana Crawley DO Parcel Post Weigher Resident 05/25/2022, 7:25 PM SPIRITUAL CARE DEPARTMENT - [facility] PROGRESS NOTE Shift date: 05/25/2022 Shift day: Tuesday Shift # 1 Room # 0703/0703-01 Name: Qian Clements Anglican: Place of yazidi: Referral: Evart Alert Admit Date & Time: 05/25/2022 2:31 PM Assessment: Qian Clements is a 31 y.o. female, 32 weeks , who was brought from a hospital in [place]. Per EMS, patient had very high BP and had a seizure on the way here. The OB explained that they would have to deliver the baby. Upon entering the room publicity writer observes patient was tearful. She said she had no needs from bindery assistant at that time. Mother and family members arrived shortly and appeared concerned. Truss Maker was unable to assess them after walking them to the pt's room. Intervention: Blanket Washer introduced self and title as bindery assistant. Truss Maker provided a supportive presence and words of comfort. Outcome: Pt appeared comforted by bindery assistant's presence. Plan: Chaplains will remain available to offer spiritual and emotional support as needed. . Spiritual Care Department [facility] [phone] 05/25/22 1507 Encounter Summary Service Provided For: Patient;Family Referral/Consult From: Multi-disciplinary team Support System Parent;Family members Last Encounter 05/25/22 Complexity of Encounter Moderate Begin Time 1430 End Time 1450 Total Time Calculated 20 min Crisis Type (Steffi Alert) Assessment/Intervention/Outcome Assessment Coping;Tearful Intervention Active listening;Explored/Affirmed feelings, thoughts, concerns Outcome Expressed feelings, needs, and concerns documented in this encounter [employer] [facility] Work Phone: 05-25-2022 Hospital Discharge instructions Erin [...] your doctor if you can take an hiqz-rti-mxwzoro medicine. If you think your pain medicine [...] Where can you learn more? Go to [email or web address] and sign in to your [employer] account. Enter M806 in the Search Health Information box to learn more about Section: What to Expect at Home. If you do not have an account, please click on the Sign Up Now link. Current as of: October 14, 2021 Content Version: 13.4 [employer]. Care instructions adapted under license by [employer]. If you have questions about a medical condition or this instruction, always ask your healthcare professional. [employer] disclaims any warranty or liability for your [...] Call the Suicide and Crisis Lifeline at 949. Call 7-122-006-OCOA (). Text HOME to 748624 to access the Crisis Text Line. Consider [...] When should you call for help? Call 725 if: You feel you cannot stop from [...] Where can you learn more? Go to [email or web address] and sign in to your MyChart account. Enter Y765 in the Search Health Information box to learn more about Depression After Childbirth: Care Instructions. If you do not have an account, please click on the Sign Up Now link. Current as of: September 30, 2021 Content Version: 13.4 [employer]. Care instructions adapted under license by [employer]. If you have questions about a medical condition or this instruction, always ask your healthcare professional. [employer] disclaims any warranty or liability for your [...] most return to normal levels over the assembler handbags. Take and record your blood pressure at [...] you have had preeclampsia, you have a iqbxbq-wwuh-dkxonoo risk of heart disease, stroke, and kidney [...] Where can you learn more? Go to [email or web address] and sign in to your [employer] account. Enter Q718 in the Search Health Information box to learn more about Learning About Preeclampsia After Childbirth. If you do not have an account, please click on the Sign Up Now link. Current as of: October 14, 2021 Content Version: 13.4 [employer]. Care instructions adapted under license by [employer]. If you have questions about a medical condition or this instruction, always ask your healthcare professional. [employer] disclaims any warranty or liability for your use of this information. documented in this encounter [employer] Work Phone: 05-25-2022 Evaluation note Diagnosis PLTCS 10 F Apg Wt 4#15; PLTCS 10 F Apg 8/9 Wt 4#15- Primary delivery, without mention of indication, delivered, with or without mention of antepartum condition Eclampsia (G6) Other convulsions state Routine follow-up Postoperative state Other postprocedural status documented in this encounter [facility] [employer] Work Phone: [phone] Evaluation note* Diagnosis PLTCS 10 F Apg 8/9 Wt 4#15- Primary delivery, [...] of unspecified site documented in this encounter [facility] [employer]01-29-2020 Hospital Discharge instructions* Instructions * iPlar Garcia MD - 09/19/2019 Go immediately from here to the [facility] OB department to be evaluated by the OB nurse. Donot stop anywhere on the way. Do not eat or drink before getting there. * Attachments The following attachments cannot be sent through Care Everywhere. * : Abdominal Pain (Bermudian) [facility] [employer] Work Phone: evaluation + Plan note No data available for this section [facility] Evaluation note* Diagnosis Sinus congestion Other diseases of nasal cavity and sinuses Cough Fever, unspecified fever cause [facility] evaldrqvps [facility]* Diagnosis Lower abdominal pain- Primary Abdominal pain, other specified site Complication of in second trimester [facility]: evalgpdwnq note* Diagnosis Acute pharyngitis, unspecified etiology- Primary documented in this encounter [facility] [employer] Phone: evaltwkoes note* Diagnosis Left flank pain- Primary Abdominal pain, unspecified site documented in this [facility] HE[facility]THE[facility]* Diagnosis Missed menses Early stage of state, incidental documented in this encounter [facility] HealthcareEvaluation note* Diagnosis Missed menses , unspecified gestational age Encounter for supervision of normal first in first trimester documented in this encounter [facility] HealthcareHospital Discharge instructions* Attachments The following attachments cannot be sent through Care Everywhere. * Sore Throat (Bermudian) [facility] [place] Phone: Hospital Discharge instructions* Attachments The following attachments cannot be sent through Care Everywhere. * URI (Upper Respiratory Infection): Viral (Bermudian) [facility] Hospital[facility]ructionsNot on file documented in this encounterCent[place] Sp[facility] SystemInstructionsNot on file documented [facility] System[facility] note No data available for this section [facility] Assessments Diagnosis Suspected COVID-19 virus infection Diagnosis Strain of lumbar region, initial encounter- Primary Morning sickness Mild hyperemesis gravidarum, unspecified as to episode of care Acute pharyngitis, unspecified etiology Advance Directives No Advanced Directives Records FoundDocuments on File Type Date 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 * Sore Throat (Bermudian) * : Morning Sickness (Bermudian) * Back: Strain (Bermudian) documented in this encounter Summary Purpose Family [...] flank pain Procedures US RETROPERITONEAL COMPLETE Jeronimo Do DO [address] [place] [address] Referral ID Status Reason Start Date Expiration Date Visits Re quested Visits Authorized [id number] Open 03/08/2023 03/07/2024 1 1 Additional Source [...] To Contact Diagnoses Eclampsia Tammy Cherry MD [address] [place] [address] [facility] [address] [place] [address] Referral ID Status Reason Start Date Expiration Date Visits Re quested Visits Authorized [id number] 1 1 Reason Comments Pharyngitis C/o sore [...] Kong RN - Comment: patient off unit) 0247 (Given - Provider: Mónica Kong RN)0836 (Given - Provider: Maritza Martinez RN)2124 (Given - Provider: Evelia Yu RN - Comment: Pt was in NICU)2129 (Not Given - Provider: Evelia Yu RN - Reason: Contraindicated - Comment: Given at 2124) 0250 (Given - Provider: Evelia Yu RN)0853 (Given - Provider: Robyn Interiano RN)1530 (Due - Provider: Ross Ashley RPH)0 (Due - Provider: Ross Ashley RPH) cephALEXin (KEFLEX) capsule 500 mg (COMPLETED) 500 mg, Oral, EVERY 8 HOURS SCHEDULED (3 times per day), 6 doses, First dose on Tue05/25/22 at 1630, Last dose on Nohelia 05/27/22 at 1400, Antimicrobial Indications: Surgical Prophylaxis 0624 [...] dose on Tue05/26/22 at 1100, Until Discontinued 08 (Given - Provider: Lory Kaba RN) [...] Yu RN)1030 (Due - Provider: Ross Ashley [facility])1830 (Due - Provider: Ross Ashley [facility]) metroNIDAZOLE (FLAGYL) tablet 500 mg (COMPLETED) 500 [...] mL/lumen 0827 (Given - Provider: Lory Kaba RN)2141 (Given - Provider: Mónica Kong RN) 0900 (Due)1950 (Not Given - Provider: Evelia Yu RN - Reason: Loss of IV access) 0900 (Due)2100 (Due) Zoigsab-Oucwgc-Dqbcx Pertussis (BOOSTRIX) injection 0.5 mL 0.5 mL, [...] peptic ulcer prophylaxis. 0836 (Given - Provider: Marizta Martinez RN) Lanolin Hydrous OINT Topical, EVERY [...] Maritza Martinez RN)2232 (Given - Provider: Evelia Yu RN) 0250 [...] Interiano RN)1256 (See Alternative - Provider: Robyn Interiano RN) [...] Care Teams (unrecognized sec tion and content) Enrollment Services Vice President Relationship Specialty Start Date End Date Racquel Simpson MD [address] [place] [address] PCP - General 04/22/16 Enrollment Services Vice President Relationship Specialty Start Date End Date Racquel Simpson MD [address] [place] [address] PCP - General 04/22/16 Enrollment Services Vice President Relationship Specialty Start Date End Date Racquel Simpson MD [address] [place] [address] PCP - General 04/22/16 Enrollment Services Vice President Relationship Specialty Start Date End Date Racquel Simpson MD [address] [place] [address] [place] [address] PCP - General 04/22/16 Enrollment Services Vice President Relationship Specialty Start Date End Date Racquel Simpson MD [address] [place] [address] PCP - General Family Medicine 08/17/23 Enrollment Services Vice President Relationship Specialty Start Date End Date Racquel Simpson MD [address] [place] [address] PCP - General Family Medicine 08/17/23 Enrollment Services Vice President Relationship Specialty Start Date End Date Racquel Simpson MD [address] [place] [address] PCP - General Family Medicine 08/17/23 Enrollment Services Vice President Relationship Specialty Start Date End Date Racquel Simpson MD [address] [place] [address] PCP - General Family Medicine 08/17/23 Enrollment Services Vice President Relationship Specialty Start Date End Date Racquel Simpson MD [address] [place] [address] PCP - General Family Medicine 08/17/23 Enrollment Services Vice President Relationship Specialty Start Date End Date Racquel Simpson MD [address] [place] [address] PCP - General Family Medicine 08/17/23 INFORMATION SOURCE (unrecogn ized section and content) DATE CREATED AUTHOR 06/02/2022 [facility] DATE CREATED AUTHOR AUTHOR'S ORGANIZ ATION 01/04/2023 [facility] DATE CREATED AUTHOR AUTHOR'S ORGANIZ ATION 09/18/2023 [facility] DATE CREATED AUTHOR AUTHOR'S ORGANIZ ATION 03/12/2024 [facility] DATE CREATED AUTHOR AUTHOR'S ORGANIZ ATION 06/04/2024 Ale[facility] DATE CREATED AUTHOR AUTHOR'S ORGANIZ ATION 08/31/2024 [facility] DATE CREATED AUTHOR AUTHOR'S ORGANIZ ATION 09/26/2024 [facility] DATE CREATED AUTHOR AUTHOR'S ORGANIZ ATION 09/29/2024 [facility] FOR RECORDS PERTAINING TO PATIENTS [...] BE BASED ON THE PRIMARY CLINICAL RECORDS. [employer] provides no warranty or guarantee of the accuracy or completeness of information in this document.
[2024-10-09 13:08] LABS: Age Gdln ACOG Testing Note (.); HPV Aptima Negative (Negative); IGP, Aptima HPV, rfx 16/18,45 Note (.)
== END 2024-10-03 19:22 | disposition home or self-care (01) ==
LOC: LAB 19:21
PROVIDERS: PCP Family Medicine; Visit Provider Physician Assistant
DX: Z01.419 Encounter for gynecological examination (general) (routine) without abnormal findings (principal)
CPT/HCPCS: 88175